=== PATIENT | female | born 1975 | race Caucasian/White ===

== ENCOUNTER 2023-03-07 19:24 | Emergency (ER) | payer MEDICARE, SELFPAY ==
[2023-03-07 19:33] VITALS: BP 99/54; PULSE 60; RESP 16; TEMP 36.8; O2SAT 94; BMI 31.2
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
--- NOTE | 2023-03-07 20:01 | PC.NURSE ---
left side rib cage hurts, no redness or bruising observed. pt gowned
[2023-03-07] MEDS: HYDROCODONE/ACETAMINOPHEN 5-325 MG TABLET 1 TAB PO (20:23)
[2023-03-07] MEDS: ORPHENADRINE 60 MG/ 2 ML VIAL IM (20:23)
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
[2023-03-07 21:24] LABS: Basophils Absolute Auto 0.1 10^3/uL (0.0-0.1); Basophils Percent Auto 0.3 % (0.2-2.0); Eosinophils Absolute Auto 0.1 10^3/uL (0.0-0.7); Eosinophils Percent Auto 0.3 % (0.9-7.0); Hematocrit 41.3 % (36.0-48.0); Hemoglobin 14.1 g/dL (12.0-16.0); Immature Granulocytes Abs Auto 0.29 10^3/uL (0.00-0.03); Immature Granulocytes Pct Auto 1.2 % (0.0-0.5); Lymphocytes Absolute Auto 1.7 10^3/uL (1.2-3.8); Lymphocytes Percent Auto 7.2 % (20.5-60.0); Mean Corpuscular HGB Conc 34.1 g/dL (29.9-35.2); Mean Corpuscular Hemoglobin 33.2 pg (26.7-34.0); Mean Corpuscular Volume 97.2 fL (81.0-99.0); Mean Platelet Volume 8.8 fL (9.5-13.5); Monocytes Absolute Auto 1.5 10^3/uL (0.3-0.8); Monocytes Percent Auto 6.3 % (1.7-12.0); Neutrophils Absolute Auto 20.3 10^3/uL (1.4-6.5); Neutrophils Percent Auto 84.7 % (43.0-75.0); Platelet Count 394 10^3/uL (150-450); Red Blood Count 4.25 10^6/uL (4.20-5.40); Red Cell Distribution Width 15.2 % (11.0-15.0)
[2023-03-07 21:33] LABS: Anion Gap 13.5; BUN Creatinine Ratio 12.9; Calcium 8.4 mg/dL (8.5-10.1); Chloride 100 mmol/L (98-107); Estimated GFR (African America >60 (>=60); Estimated GFR (Non-African Ame >60 (>=60); Glucose 71 mg/dL (74-106); Potassium 3.5 mmol/L (3.5-5.1); Sodium 134 mmol/L (136-145)
[2023-03-07 21:43] LABS: Scan Results NEGATIVE
[2023-03-07 21:45] LABS: INR 1.03; Partial Thromboplastin Time 38.3 sec (22.3-36.2); Prothrombin Time 10.9 sec (9.0-11.6)
[2023-03-07] MEDS: LEVOFLOXACIN 750 MG TABLET PO (23:31)
[2023-03-07] MEDS: CLINDAMYCIN HCL 150 MG CAPSULE 300 MG PO (23:31)
== END 2023-03-07 23:46 | disposition home or self-care (01) ==
PROVIDERS: Physician Assistant; Emergency Provider Internal Medicine; PCP Internal Medicine
DX: R07.89 Other chest pain (principal); J18.8 Other pneumonia, unspecified organism; J44.9 Chronic obstructive pulmonary disease, unspecified; Z79.899 Other long term (current) drug therapy; Z79.4 Long term (current) use of insulin
CPT/HCPCS: 36415; 71101; 71260; 80048; 85025; 85610; 85730; 96372; 99285; Q9967

== ENCOUNTER 2023-05-08 19:25 | Observation (INO) | payer MEDICARE, SELFPAY ==
[2023-05-08] VITALS (7 sets, daily range): BP systolic 113–150; BP diastolic 70–86; PULSE 84–106; RESP 18–28; TEMP 37.1; O2SAT 91–95; BMI 30.4
--- NOTE | 2023-05-08 19:33 | ECG_ITS ---
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
--- NOTE | 2023-05-08 19:39 | ED_ITS ---
HPI - SOB/Dyspnea General Chief Complaint: Shortness of Breath/Dyspnea Stated Complaint: Shortness of Breath Time Seen by Provider: 05/08/23 19:34 Source: patient Mode of arrival: walk-in Limitations: no limitations History of Present Illness HPI Narrative: history of COPD. daily smoker. Presents complaining of shortness of breath for 2 days. Dry cough. No chest pain or nausea. no fever or abdominal pain MD elicited complaint: shortness of breath and cough Pertinent past history: COPD Onset (ago): day(s) Related Data Home Medications Medication Instructions Recorded Confirmed albuterol sulfate 90 mcg/actuation 2 puff inhalation Q4H PRN 03/07/23 05/08/23 aerosol inhaler shortness of breath or wheezing atorvastatin 40 mg tablet 40 mg PO DAILY 03/07/23 05/08/23 budesonide 160 mcg-glycopyr 9 1 inh inhalation BID 03/07/23 05/09/23 mcg-formot 4.8 mcg/actuation HFA inhaler (Breztri MediWoundphere) dapagliflozin propanediol 10 mg 10 mg PO DAILY 03/07/23 05/08/23 tablet (Farxiga) dulaglutide 1.5 mg/0.5 mL 1.5 mg subcut QWEEK 03/07/23 05/08/23 subcutaneous pen injector (Lvmae) escitalopram oxalate 20 mg tablet 20 mg PO DAILY 03/07/23 05/08/23 gabapentin 800 mg tablet 800 mg PO TID 03/07/23 05/08/23 ibuprofen 800 mg tablet 800 mg PO TID 03/07/23 05/08/23 insulin aspart U-100 100 unit/mL 10 unit subcut TID 03/07/23 05/08/23 (3 mL) subcutaneous pen (Novolog FlexPen U-100 Insulin aspart) lamotrigine 150 mg tablet 150 mg PO BID 03/07/23 05/08/23 mirtazapine 30 mg tablet 30 mg PO BEDTIME 03/07/23 05/09/23 omeprazole 40 mg capsule,delayed 40 mg PO DAILY 03/07/23 05/08/23 release risperidone 1 mg tablet 1 mg PO BID 03/07/23 05/08/23 sitagliptin phos 100 mg-metformin 1 tab PO BEDTIME 03/07/23 05/09/23 ER 1,000 mg tablet,extend rel 24h mp (Janumet XR) tizanidine 4 mg tablet 4 mg PO TID PRN muscle spasticity 03/07/23 05/08/23 lorazepam 1 mg tablet (Ativan) 1 mg PO Q12H 05/08/23 05/08/23 Previous Rx's Medication Instructions Recorded methocarbamol 750 mg tablet 750 mg PO TID PRN pain #20 tabs 03/07/23 ahefhrqracramij-qncoisrevuuxpea-VI 5 ml PO Q6H PRN sinus symptoms 05/09/23 2 mg-30 mg-10 mg/5 mL oral syrup #118 mL (Bromfed DM) nicotine (polacrilex) 4 mg gum 4 mg buccal Q8H PRN nicotine 05/09/23 (Nicorette) cravings #110 ea nicotine 21 mg/24 hr daily 1 patch transdermal Q24H #28 ea 05/09/23 transdermal patch (Nicoderm CQ) prednisone 20 mg tablet 40 mg PO DAILY 7 days #14 tabs 05/09/23 Allergies Allergy/AdvReac Type Severity Reaction Status Date / Time sumatriptan [From Imitrex] Allergy Severe Verified 05/08/23 19:35 Review of Systems ROS Status of ROS 10 or more systems reviewed and unremarkable except as noted in history and below Respiratory Reports: shortness of breath, cough and wheezing PFSH PFSH Social History Smoking status: Current every day smoker Exam Constitutional Vital Signs, click to edit/add: Last Vital Signs Temp 98.8 F 05/09/23 06:00 Pulse 78 05/09/23 06:00 Resp 22 05/09/23 06:00 BP 130/86 05/09/23 06:00 Pulse Ox 90 L 05/09/23 08:00 O2 Del Method Room Air 05/09/23 08:00 O2 Flow Rate 4 05/09/23 06:00 Common normals: no apparent distress, average body habitus, oriented x3, no limitations, healthy appearing, alert and well nourished Eye Common normals: EOMs intact bilaterally and conjunctivae normal Respiratory Common normals: normal respiratory effort, no retractions and no use of accessory muscles Auscultation: rhonchi and wheezes Cardio Common normals: regular rate, regular rhythm, S1 normal heart sound and S2 normal heart sound GI Common normals: Normal to inspection, nondistended, normoactive bowel sounds present, soft to palpation and non-tender Extremity Common normals: normal to inspection Neuro Common normals: oriented x3, CN's II-XII intact bilaterally, moves all extremities, no focal motor deficits and no sensory deficits noted Psych Appearance: grossly normal Course Course Hospital Course: patient responded well to IV steroids and duonebs. She is willing to try patches and nicotine gum. I will place her on prednisone 40mg daily x 7 days, use inhalers as prescribed. Smoking cessation will help the most. Use home oxygen only as needed. Follow up with pcp 5-7 days. Return with worsening symptoms. Vital Signs Vital signs: Vital Signs Temperature 98.7 F 05/08/23 19:30 Pulse Rate 106 H 05/08/23 19:30 Respiratory Rate 18 05/08/23 19:30 Blood Pressure 130/83 05/08/23 19:30 Pulse Oximetry 92 L 05/08/23 19:30 Oxygen Delivery Method Room Air 05/08/23 19:30 Temperature 98.8 F 05/09/23 06:00 Pulse Rate 78 05/09/23 06:00 Respiratory Rate 22 05/09/23 06:00 Blood Pressure 130/86 05/09/23 06:00 Pulse Oximetry 90 L 05/09/23 08:00 Oxygen Delivery Method Room Air 05/09/23 08:00 Oxygen Delivery Flow Rate 4 05/09/23 06:00 MDM - SOB/Dyspnea MDM Narrative Medical decision making narrative: history of COPD. daily smoker. IDDM. presents short of breath for past couple of days. Treatment in the department included solumedrol, duoneb . She was also given benadryl and magnesium for headache. Nasal swab positive for Rhino/entero virus. Patient after treatment still has coarse wheeze and few rhonchi. Without 02 her pulse ox decreases to 85%. Her cxray is clear. Discussed with the hospitalist and will plan obs admission. Lab Data Labs: Lab Results 05/08/23 Range/Units 19:35 WBC 13.1 H (4.0-11.0) 10^3/uL RBC 4.38 (4.20-5.40) 10^6/uL Hgb 14.5 (12.0-16.0) g/dL Hct 44.4 (36.0-48.0) % MCV 101.4 H (81.0-99.0) fL MCH 33.1 (26.7-34.0) pg MCHC 32.7 (29.9-35.2) g/dL RDW 15.8 H (11.0-15.0) % Plt Count 285 (150-450) 10^3/uL MPV 9.1 L (9.5-13.5) fL Neut % (Auto) 83.7 H (43.0-75.0) % Lymph % (Auto) 8.1 L (20.5-60.0) % [place] % (Auto) 6.7 (1.7-12.0) % Eos % (Auto) 0.5 L (0.9-7.0) % Baso % (Auto) 0.5 (0.2-2.0) % Neut # (Auto) 11.0 H (1.4-6.5) 10^3/uL Lymph # (Auto) 1.1 L (1.2-3.8) 10^3/uL [place] # (Auto) 0.9 H (0.3-0.8) 10^3/uL Eos # (Auto) 0.1 (0.0-0.7) 10^3/uL Baso # (Auto) 0.1 (0.0-0.1) 10^3/uL Abs Immat Gran (auto) 0.06 H (0.00-0.03) 10^3/uL Imm/Tot Granulo (auto) 0.5 (0.0-0.5) % Sodium 136 (136-145) mmol/L Potassium 3.4 L (3.5-5.1) mmol/L Chloride 102 (98-107) mmol/L Carbon Dioxide 22.5 (21.0-32.0) mmol/L Anion Gap 14.9 BUN 7.0 (7.0-18.0) mg/dL Creatinine 0.84 (0.55-1.02) mg/dL Est GFR ( Amer) >60 (>=60) Est GFR (Non-Af Amer) >60 (>=60) BUN/Creatinine Ratio 8.3 Glucose 173 H (74-106) mg/dL Calcium 8.4 L (8.5-10.1) mg/dL Troponin I High Sens 4.6 (4.0-51.3) pg/mL Adenovirus (PCR) Not detected (NOT DETECTE) C. pneumoniae DNA (PCR) Not detected (NOT DETECTE) Coronavirus Type OC43 Not detected (NOT DETECTE) Coronavirus Type HKU1 Not detected (NOT DETECTE) Coronavirus Type 229E Not detected (NOT DETECTE) Coronavirus Type NL63 Not detected (NOT DETECTE) Human Metapneumovir PCR Not detected (NOT DETECTE) M. pneumoniae (PCR) Not detected (NOT DETECTE) Parainfluenza PCR Not detected (NOT DETECTE) Parainfluenza 2 (PCR) Not detected (NOT DETECTE) Parainfluenza 3 (PCR) Not detected (NOT DETECTE) Parainfluenza 4 (PCR) Not detected (NOT DETECTE) RSV (RT-PCR) Not detected (NOT DETECTE) Entero/Rhino (PCR) Detected A (NOT DETECTE) SARS-CoV-2 (PCR) Not detected (NOT DETECTE) Bordetella pertussis (PCR) Not detected (NOT DETECTE) B parapertussis DNA PCR Not detected (NOT DETECTE) Influenza Type A (PCR) Not detected (NOT DETECTE) Influenza Type B (PCR) Not detected (NOT DETECTE) Discharge Plan Discharge Chief Complaint: Shortness of Breath/Dyspnea Clinical Impression: Acute viral syndrome, Acute exacerbation of chronic obstructive pulmonary di sease (COPD) Patient Disposition: Admitted as Observation Discharge Date/Time: 05/09/23 00:10
--- NOTE | 2023-05-08 19:45 | XR_ITS ---
The [address] [address] Patient Name: DIAN RAY MRN: [id number] date: 1975 Sex: F Assigned Patient Location: ER Current Patient Location: ER Accession/Order Number: [id number] Exam Date: 05/08/2023 21:20 Report Date: 05/08/2023 21:07 At the request of: SHILPI MUÑOZ Procedure: XR chest 1V EXAMINATION: XR chest 1V HISTORY: Cough COMPARISON: X-ray 03/07/2023 TECHNIQUE: Portable chest FINDINGS: The lung parenchyma is free of acute consolidation or infiltrate. Scarring within the left upper lobe. No pneumothorax or pleural effusion. The cardiac, mediastinal and hilar contours are normal. The visualized osseous structures exhibit no gross abnormality. XR/XR chest 1V IMPRESSION: No acute cardiopulmonary abnormality. Electronically authenticated by: SHAJI SWANSON Date: 05/08/2023 21:07
[2023-05-08 19:52] LABS: Adenovirus NOT DETECTED (NOT DETECTE); Bordetella parapertussis NOT DETECTED (NOT DETECTE); Coronavirus 229E NOT DETECTED (NOT DETECTE); Coronavirus HKU1 NOT DETECTED (NOT DETECTE); Coronavirus NL63 NOT DETECTED (NOT DETECTE); Coronavirus OC43 NOT DETECTED (NOT DETECTE); Human Metapneumovirus NOT DETECTED (NOT DETECTE); Influenza A NOT DETECTED (NOT DETECTE); Influenza B NOT DETECTED (NOT DETECTE); Mycoplasma pneumoniae NOT DETECTED (NOT DETECTE); Parainfluenza Virus 1 NOT DETECTED (NOT DETECTE); Parainfluenza Virus 2 NOT DETECTED (NOT DETECTE); Parainfluenza Virus 3 NOT DETECTED (NOT DETECTE); Parainfluenza Virus 4 NOT DETECTED (NOT DETECTE); Respiratory Syncytial Virus NOT DETECTED (NOT DETECTE); SARS-CoV-2 NOT DETECTED (NOT DETECTE)
[2023-05-08 19:54] LABS: Basophils Absolute Auto 0.1 10^3/uL (0.0-0.1); Basophils Percent Auto 0.5 % (0.2-2.0); Eosinophils Absolute Auto 0.1 10^3/uL (0.0-0.7); Eosinophils Percent Auto 0.5 % (0.9-7.0); Hematocrit 44.4 % (36.0-48.0); Hemoglobin 14.5 g/dL (12.0-16.0); Immature Granulocytes Abs Auto 0.06 10^3/uL (0.00-0.03); Immature Granulocytes Pct Auto 0.5 % (0.0-0.5); Lymphocytes Absolute Auto 1.1 10^3/uL (1.2-3.8); Lymphocytes Percent Auto 8.1 % (20.5-60.0); Mean Corpuscular HGB Conc 32.7 g/dL (29.9-35.2); Mean Corpuscular Hemoglobin 33.1 pg (26.7-34.0); Mean Corpuscular Volume 101.4 fL (81.0-99.0); Mean Platelet Volume 9.1 fL (9.5-13.5); Monocytes Absolute Auto 0.9 10^3/uL (0.3-0.8); Monocytes Percent Auto 6.7 % (1.7-12.0); Neutrophils Percent Auto 83.7 % (43.0-75.0); Platelet Count 285 10^3/uL (150-450); Red Blood Count 4.38 10^6/uL (4.20-5.40); Red Cell Distribution Width 15.8 % (11.0-15.0); White Blood Count 13.1 10^3/uL (4.0-11.0)
[2023-05-08] MEDS: METHYLPREDNISOLONE SOD SUCC PF 125 MG/2 ML VIAL IVP (20:01)
[2023-05-08] MEDS: IPRATROPIUM/ALBUTEROL SULFATE 3 ML AMPUL.NEB IH ×3 (20:05→23:16)
[2023-05-08] MEDS: KETOROLAC TROMETHAMINE 30 MG/ML VIAL IVP (20:16)
[2023-05-08 20:27] LABS: Anion Gap 14.9; BUN Creatinine Ratio 8.3; Calcium 8.4 mg/dL (8.5-10.1); Carbon Dioxide 22.5 mmol/L (21.0-32.0); Chloride 102 mmol/L (98-107); Estimated GFR (African America >60 (>=60); Estimated GFR (Non-African Ame >60 (>=60); Glucose 173 mg/dL (74-106); Potassium 3.4 mmol/L (3.5-5.1); Sodium 136 mmol/L (136-145); Troponin I High Sensitivity 4.6 pg/mL (4.0-51.3)
[2023-05-08 21:18] LABS: Human Rhinovirus/Enterovirus DETECTED (NOT DETECTE)
[2023-05-08] MEDS: MAGNESIUM SULFATE IN WATER 2 GM/50 ML PREMIX IV (21:36)
[2023-05-08] MEDS: DIPHENHYDRAMINE HCL 50 MG/ML (1ML) VIAL IV (21:36)
--- NOTE | 2023-05-08 21:45 | PC.NURSE ---
Coarse breath sounds throughout with some exp. wheezes. Cough remains coarse in nature
--- NOTE | 2023-05-08 23:09 | PC.NURSE ---
Patient continues to sleep arouse with stimuli. Saturation dropped when taken off O2. Dr was in. Patient at first refused admission, but after talking with her she agreed to stay. Placed back on O2 and is up to 5 L/min. Saturation still 88-90. Dr aware and another treatment was ordered.
[2023-05-09 00:10] VITALS: BP 121/69; PULSE 75; RESP 32
[2023-05-09 00:21] VITALS: BP 126/76; PULSE 76; RESP 20; TEMP 36.7; O2SAT 93; BMI 31.2
[2023-05-09 00:30] VITALS: O2SAT 94
--- NOTE | 2023-05-09 01:35 | P.PN_ITS ---
Progress Note: Subjective Subjective Interval history: CC: cough and shortness of breath HPI: 48-year-old female with history of COPD, active tobacco smoker, has oxygen as needed, chronic headaches, chronic pain, diabetes who presents with few days of congestion, productive cough of thick white sputum, chills, fatigue, malaise, wheezing. no reports of fevers, pleurisy, abdominal pain, change in bowel urinary habits, rashes, focal weakness. No complaints of edema orthopnea or chest pain. Upon arrival to the ER was noted to have increased respiratory effort, hypoxia on room air placed on 5 L nasal cannula, CXR without any infiltrates, given Solu-Medrol and multiple DuoNeb treatment with improvement in respiratory status, complaining of a headache received Benadryl and currently sleeping. Past medical/surgical history: social history: smokes tobacco daily Allergies: Imitrex Home medications: reviewed in chart ROS: negative except for HPI PE: General: Lying in bed, sleeping, arousable, goes back to sleep in no acute distress, alert to self and place HEENT: Normocephalic, atraumatic, trachea midline CVS: regular rate and rhythm, no edema lungs: Increase respiratory effort, Wheezes and central rhonchi GI: Soft, nontender, no visible masses neuro: No focal deficits Exam Constitutional Vital Signs, click to edit/add: Last Vital Signs Temp 98.7 F 05/08/23 19:30 Pulse 75 05/09/23 00:10 Resp 32 H 05/09/23 00:10 BP 121/69 05/09/23 00:10 Pulse Ox 95 05/08/23 23:59 O2 Del Method Nasal Cannula 05/09/23 00:10 O2 Flow Rate 5 05/09/23 00:10 Progress Note: Objective Labs Labs: Short CBC 05/08/23 Range/Units 19:35 WBC 13.1 H (4.0-11.0) 10^3/uL Hgb 14.5 (12.0-16.0) g/dL Hct 44.4 (36.0-48.0) % Plt Count 285 (150-450) 10^3/uL BMP 05/08/23 19:35 Sodium 136 Potassium 3.4 L Chloride 102 Carbon Dioxide 22.5 BUN 7.0 Creatinine 0.84 Glucose 173 H Calcium 8.4 L Progress Note: A&P Assessment and Plan (1) Acute exacerbation of chronic obstructive pulmonary disease (COPD): (2) Hypoxia: (3) Enterovirus infection: Plan Acute respiratory failure with hypoxia COPD with acute exacerbation Enterovirus bronchitis Nicotine dependence Migraine headaches Anxiety with depression chronic pain IDDM type II - COPD pathway with scheduled steroids, duo nebs, supplemental oxygen, BiPAP as needed - smoking cessation education, declines nicotine patch - standard and contact precautions for enterovirus - low carb diet sliding scale insulin coverage with diabetes and steroids - home medications reviewed and reconciled DVT prophylaxis-Lovenox goals of care-full code communications: Discussed with emergency room physician, bedside nurse, updated of plan of care, all questions answered to their satisfaction. Disposition -home when medically stable has a provider this telehealth evaluation, requested by the patient's evaluating physician, I attest that I introduced myself to the patient, provided my credentials and determined that telemedicine via a real-time 2 weight interactive audio and video platform his and appropriate and effective means of providing this service. I reviewed the patient's chart and had a discussion with the member of the patient's treatment team. The patient and I mutually agreed with continuation of this evaluation via telemedicine. The patient consented for the telemedicine evaluation. A virtual encounter was taking place from [place]. The nurse was present during the entire time of the encounter. The patient was evaluated on 129 Telemedicine Attestation Telemedicine Attestation I conducted this encounter from [] via secure live, [id number] video conference with the patient, located at [facility] with []. Prior to the interview, the risks and benefits of telemedicine were discussed with the patient and verbal consent was obtained.
[2023-05-09 02:24] LABS: Partial Thromboplastin Time 36.9 sec (22.3-36.2)
[2023-05-09 04:18] VITALS: PULSE 71; RESP 20; O2SAT 96
[2023-05-09] MEDS: IPRATROPIUM/ALBUTEROL SULFATE 3 ML AMPUL.NEB IH (04:18)
--- NOTE | 2023-05-09 05:04 | RESP.RT ---
Titrated to 4 lpm
[2023-05-09 06:00] VITALS: BP 130/86; PULSE 78; RESP 22; TEMP 37.1; O2SAT 93
[2023-05-09 07:52] LABS: Glucometer 266 mg/dL (74-106)
[2023-05-09 08:00] VITALS: O2SAT 90
--- NOTE | 2023-05-09 08:29 | P.HP_ITS ---
H&P: HPI History of Present Illness Chief complaint: Shortness of Breath Narrative: patient is a 48-year-old female with past medical history of chronic obstructive pulmonary disease, tobacco abuse, chronic headaches, chronic pain, insulin- dependent type 2 diabetes who developed a few day history of nasal congestion and sinus pressure productive cough, chills, fatigue, malaise, wheezing. She denied having any fevers abdominal pain or any sick contacts. She does have oxygen at home which she uses just if she feels like she needs it. She continues to smoke despite knowing the severity of her chronic obstructive pulmonary disease. She was admitted with acute chronic obstructive pulmonary disease exacerbation and has responded well overnight with Solu-Medrol and DuoNeb treatments. This morning on exam she is in no acute distress and no complaints. Review of Systems ROS Narrative ROS: a complete review of systems were reviewed with patient and are positive as below or listed in History of Chief Complaint. General: no fever, chills, night sweats Head: no headache, trauma, visual changes, nausea or vomiting Skin: no reported rashes, itching or sores Eyes: no blurriness of vision Ears: no reported hearing loss, vertigo, earache, or tinnitus Throat: no sore throat, hoarseness, swelling of neck, or tongue pain Heart: no chest pain Lungs: shortness of breath and cough GI: no diarrhea or vomiting/nausea Urinary: no urinary urgency, frequency or pain Neuro: no numbness or tingling HEM: no bleeding issues or bruising ENDO: no thyroid problems Psych: anxiety and depression PFSH PFSH Social History Smoking status: Current every day smoker Meds Home Medications and Allergies Home Medications Medication Instructions Recorded Confirmed Type albuterol sulfate 90 mcg/actuation 2 puff inhalation Q4H PRN 03/07/23 05/08/23 History aerosol inhaler shortness of breath or wheezing atorvastatin 40 mg tablet 40 mg PO DAILY 03/07/23 05/08/23 History budesonide 160 mcg-glycopyr 9 1 inh inhalation BID 03/07/23 05/09/23 History mcg-formot 4.8 mcg/actuation HFA inhaler (Breztri Aerosphere) dapagliflozin propanediol 10 mg 10 mg PO DAILY 03/07/23 05/08/23 History tablet (Farxiga) dulaglutide 1.5 mg/0.5 mL 1.5 mg subcut QWEEK 03/07/23 05/08/23 History subcutaneous pen injector (Trulicity) escitalopram oxalate 20 mg tablet 20 mg PO DAILY 03/07/23 05/08/23 History gabapentin 800 mg tablet 800 mg PO TID 03/07/23 05/08/23 History ibuprofen 800 mg tablet 800 mg PO TID 03/07/23 05/08/23 History insulin aspart U-100 100 unit/mL 10 unit subcut TID 03/07/23 05/08/23 History (3 mL) subcutaneous pen (Novolog FlexPen U-100 Insulin aspart) lamotrigine 150 mg tablet 150 mg PO BID 03/07/23 05/08/23 History methocarbamol 750 mg tablet 750 mg PO TID PRN pain #20 tabs 03/07/23 05/08/23 Rx mirtazapine 30 mg tablet 30 mg PO BEDTIME 03/07/23 05/09/23 History omeprazole 40 mg capsule,delayed 40 mg PO DAILY 03/07/23 05/08/23 History release risperidone 1 mg tablet 1 mg PO BID 03/07/23 05/08/23 History sitagliptin phos 100 mg-metformin 1 tab PO BEDTIME 03/07/23 05/09/23 History ER 1,000 mg tablet,extend rel 24h mp (Janumet XR) tizanidine 4 mg tablet 4 mg PO TID PRN muscle spasticity 03/07/23 05/08/23 History lorazepam 1 mg tablet (Ativan) 1 mg PO Q12H 05/08/23 05/08/23 History amiplkhahhrxubw-syllpllezkjehne-TB 5 ml PO Q6H PRN sinus symptoms 05/09/23 Rx 2 mg-30 mg-10 mg/5 mL oral syrup #118 mL (Bromfed DM) nicotine (polacrilex) 4 mg gum 4 mg buccal Q8H PRN nicotine 05/09/23 Rx (Nicorette) cravings #110 ea nicotine 21 mg/24 hr daily 1 patch transdermal Q24H #28 ea 05/09/23 Rx transdermal patch (Nicoderm CQ) prednisone 20 mg tablet 40 mg PO DAILY 7 days #14 tabs 05/09/23 Rx Allergies Allergy/AdvReac Type Severity Reaction Status Date / Time sumatriptan [From Imitrex] Allergy Severe Verified 05/08/23 19:35 Exam Narrative Exam Narrative: General: Patient is alert, and oriented to person, place and time with normal affect, proper hygiene Skin: no visible rashes, or ulcers Head: atraumatic, acephalic Eyes: PERRLA, no nystagmus present, conjunctiva clear, no scleral icterus Ears: normal gross auditory acuity Heart: Normal rate and rhythm, no murmurs/rubs/gallops Lungs: no audible wheezes, crackles and normal breath sounds all lung gonzalez Abdomen: Normal audible bowel sounds, no distension, No palpable masses, no organomegaly, no rebound/guarding/ or rigidity Musculoskeletal: muscle atrophy noted, ROM is limited due to being in hospital bed, no swelling bilateral lower extremities Vascular: Normal carotid, radial, femoral, posterior tibial, and dorsalis pedis pulses Lymph: no supraclavicular, axillary, or anterior/posterior cervical adenopathy Neuro: CN II-X grossly intact, normal sensation upper and lower extremities Constitutional Vital Signs, click to edit/add: Last Vital Signs Temp 98.8 F 05/09/23 06:00 Pulse 78 05/09/23 06:00 Resp 22 05/09/23 06:00 BP 130/86 05/09/23 06:00 Pulse Ox 90 L 05/09/23 08:00 O2 Del Method Room Air 05/09/23 08:00 O2 Flow Rate 4 05/09/23 06:00 Results Labs Labs: Short CBC 05/08/23 Range/Units 19:35 WBC 13.1 H (4.0-11.0) 10^3/uL Hgb 14.5 (12.0-16.0) g/dL Hct 44.4 (36.0-48.0) % Plt Count 285 (150-450) 10^3/uL BMP 05/08/23 19:35 Sodium 136 Potassium 3.4 L Chloride 102 Carbon Dioxide 22.5 BUN 7.0 Creatinine 0.84 Glucose 173 H Calcium 8.4 L Assessment and Plan Assessment and Plan (1) Acute exacerbation of chronic obstructive pulmonary disease (COPD): Assessment and Plan: scheduled steroids, duo nebs, supplemental oxygen, normal chest X-ray, viral culture positive for rhinovirus/enterovirus (2) Hypoxia: Assessment and Plan: currently on room air (3) Enterovirus infection: Assessment and Plan: causing #1 Plan full code discharge home today discussed smoking cessation and will try patches and gum
[2023-05-09] MEDS: CANAGLIFLOZIN 100 MG TABLET 300 MG PO (08:52)
[2023-05-09] MEDS: LAMOTRIGINE 100 MG TABLET 150 MG PO (08:52)
[2023-05-09] MEDS: risperiDONE 1 MG TABLET PO (08:53)
[2023-05-09] MEDS: GUAIFENESIN 200 MG/10 ML LIQUID PO (08:53)
[2023-05-09] MEDS: PREDNISONE 20 MG TABLET 40 MG PO (08:53)
[2023-05-09] MEDS: LORAZEPAM 1 MG TABLET PO (08:53)
[2023-05-09] MEDS: OMEPRAZOLE 20 MG CAPSULE.DR PO (08:53)
[2023-05-09] MEDS: INSULIN ASPART 300 UNIT/3 ML PEN SUBQ (08:53)
--- NOTE | 2023-05-09 14:08 | PM.DS1 ---
DS: Providers Provider Date of admission: 05/09/23 00:14 Primary care physician: Shaikh Anthony MD Attending physician on admission: Mackenzie Pizarro Discharging clinician: Shanna Shipman DS: Diagnosis Discharge Diagnosis (1) Acute exacerbation of chronic obstructive pulmonary disease (COPD): (2) Enterovirus infection: (3) Hypoxia: (4) Tobacco abuse counseling: DS: Summary Hospital Course Hospital Course: patient responded well to IV steroids and duonebs. She is willing to try patches and nicotine gum. I will place her on prednisone 40mg daily x 7 days, use inhalers as prescribed. Smoking cessation will help the most. Use home oxygen only as needed. Follow up with pcp 5-7 days. Return with worsening symptoms. Status at Discharge Functional status at discharge: independent ambulation Overall status at discharge: patient is back to baseline Time Spent with Patient Time attestation: Total time spent providing and/or coordinating discharge services: Exam Narrative Exam Narrative: no change in exam from H&P DATED 05/09/23 Constitutional Vital Signs, click to edit/add: Last Vital Signs Temp 98.8 F 05/09/23 06:00 Pulse 78 05/09/23 06:00 Resp 22 05/09/23 06:00 BP 130/86 05/09/23 06:00 Pulse Ox 90 L 05/09/23 08:00 O2 Del Method Room Air 05/09/23 08:00 O2 Flow Rate 4 05/09/23 06:00 DS: Data Data Completed and Pending Labs on day of discharge: Labs from last 24 hours 05/09/23 05/09/23 05/08/23 07:51 02:08 19:35 WBC 13.1 H RBC 4.38 Hgb 14.5 Hct 44.4 MCV 101.4 H MCH 33.1 MCHC 32.7 RDW 15.8 H Plt Count 285 MPV 9.1 L Neut % (Auto) 83.7 H Lymph % (Auto) 8.1 L [place] % (Auto) 6.7 Eos % (Auto) 0.5 L Baso % (Auto) 0.5 Neut # (Auto) 11.0 H Lymph # (Auto) 1.1 L [place] # (Auto) 0.9 H Eos # (Auto) 0.1 Baso # (Auto) 0.1 Abs Immat Gran (auto) 0.06 H Imm/Tot Granulo (auto) 0.5 APTT 36.9 H Sodium 136 Potassium 3.4 L Chloride 102 Carbon Dioxide 22.5 Anion Gap 14.9 BUN 7.0 Creatinine 0.84 Est GFR ( Amer) >60 Est GFR (Non-Af Amer) >60 BUN/Creatinine Ratio 8.3 Glucose 173 H Calcium 8.4 L Troponin I High Sens 4.6 Adenovirus (PCR) Not detected C. pneumoniae DNA (PCR) Not detected Coronavirus Type OC43 Not detected Coronavirus Type HKU1 Not detected Coronavirus Type 229E Not detected Coronavirus Type NL63 Not detected Human Metapneumovir PCR Not detected M. pneumoniae (PCR) Not detected Parainfluenza PCR Not detected Parainfluenza 2 (PCR) Not detected Parainfluenza 3 (PCR) Not detected Parainfluenza 4 (PCR) Not detected RSV (RT-PCR) Not detected Entero/Rhino (PCR) Detected A SARS-CoV-2 (PCR) Not detected Bordetella pertussis (PCR) Not detected B parapertussis DNA PCR Not detected Influenza Type A (PCR) Not detected Influenza Type B (PCR) Not detected POC Glucose 266 H Discharge Plan Discharge Disposition: Home, Self-Care Discharge Medications: New prednisone 20 mg Tablet 40 mg PO DAILY 7 Days Qty: 14 0RF nicotine [Nicoderm CQ] 21 mg/24 hr patch 24 hour 1 patch transdermal Q24H Qty: 28 0RF nicotine (polacrilex) [Nicorette] 4 mg gum 4 mg buccal Q8H PRN (Reason: nicotine cravings) Qty: 110 0RF pbmdkswtqbqzpfx-zpxxnzfda-CS [Bromfed DM] 2-30-10 mg/5 mL syrup 5 ml PO Q6H PRN (Reason: sinus symptoms) Qty: 118 0RF Continued albuterol sulfate 90 mcg/actuation HFA aerosol inhaler 2 puff INHALATION Q4H PRN (Reason: shortness of breath or wheezing) atorvastatin 40 mg tablet 40 mg PO DAILY Breztri Aerosphere 160-9-4.8 mcg/actuation HFA aerosol inhaler 1 inh INHALATION BID Farxiga 10 mg tablet 10 mg PO DAILY Trulicity 1.5 mg/0.5 mL pen injector 1.5 mg SUBCUT QWEEK escitalopram oxalate 20 mg tablet 20 mg PO DAILY gabapentin 800 mg tablet 800 mg PO TID ibuprofen 800 mg tablet 800 mg PO TID insulin aspart U-100 [Novolog FlexPen U-100 Insulin] 100 unit/mL (3 mL) insulin pen 10 unit SUBCUT TID Patient Comments: with sliding scale, max 50 units daily lamotrigine 150 mg tablet 150 mg PO BID mirtazapine 30 mg tablet 30 mg PO BEDTIME omeprazole 40 mg capsule,delayed release(DR/EC) 40 mg PO DAILY risperidone 1 mg tablet 1 mg PO BID Janumet XR 100-1,000 mg tablet, ER multiphase 24 hr 1 tab PO BEDTIME tizanidine 4 mg tablet 4 mg PO TID PRN (Reason: muscle spasticity) methocarbamol 750 mg tablet 750 mg PO TID PRN (Reason: pain) Qty: 20 0RF lorazepam [Ativan] 1 mg tablet 1 mg PO Q12H Activity: increase activity as tolerated Diet: advance to your usual diet Patient Instructions: COPD (Chronic Obstructive Pulmonary Disease) (DC) Activity Restrictions/Additional Instructions: discussed options for smoking cessation and she will try the patch and gum, prescriptions sent to the pharmacy Forms: Portal Instructions Follow Up Appointments: Call to make a follow up appointment with Dr. Cruz in 5-7 days. [phone] Discharge Date/Time: 05/09/23 11:23
--- NOTE | 2023-05-10 16:05 | CM.DCFOLLOWU ---
Person spoke with: Christiane How are you feeling? Much better How is your pain? No pain Did you understand your discharge instructions? Yes Do you have any questions about your discharge instructions? No Were you given any prescriptions at discharge? Yes Were you able to get your prescriptions filled? Yes Do you understand how to take your medications as ordered? Yes Do you have any questions about your follow up appointment and do you plan to keep your follow up appointment? I have to call to schedule Is there anything else that you would like to discuss? No Questions/Comments/Concerns/Other:
== END 2023-05-09 11:23 | disposition home or self-care (01) ==
LOC: ER 05-09 00:17 → MS 05-09 00:17
PROVIDERS: Admitting Provider Internal Medicine; Emergency Provider Internal Medicine; PCP Internal Medicine; Visit Provider Family Medicine
DX: J44.1 Chronic obstructive pulmonary disease with (acute) exacerbation (principal); R09.02 Hypoxemia; B34.1 Enterovirus infection, unspecified; E11.9 Type 2 diabetes mellitus without complications; F17.210 Nicotine dependence, cigarettes, uncomplicated; Z20.822 Contact with and (suspected) exposure to COVID-19; Z79.4 Long term (current) use of insulin; Z79.899 Other long term (current) drug therapy
CPT/HCPCS: 0202U; 36415; 71045; 80048; 84484; 85025; 85730; 93005; 94640; 94761; 96365; 96375; 99285; G0378; J2930; Q3014

== ENCOUNTER 2023-05-19 14:57 | Outpatient (OUT) | payer MEDICARE, SELFPAY ==
--- NOTE | 2023-05-19 | XR_ITS ---
The [address] [address] Patient Name: DIAN RAY MRN: [id number] date: 1975 Sex: F Assigned Patient Location: RAD Current Patient Location: RAD Accession/Order Number: [id number] Exam Date: 05/19/2023 15:08 Report Date: 05/19/2023 16:32 At the request of: SHAIKH AMINA Procedure: XR chest 2V EXAM: XR chest 2V HISTORY: J44.1 ; COPD and chest tightness for one week. COMPARISON: Portable chest radiograph dated 05/08/[address] chest dated 03/07/2023. TECHNIQUE: PA and lateral views of the chest performed. FINDINGS: The trachea is midline. The cardiac silhouette is upper limits normal size and stable. The mediastinal silhouette and hilar shadows are stable. Stable mild linear densities within the left upper chest suggesting parenchymal scar. A complex mass was seen within this location on the previous CT chest examination from 03/07/2023. There is no new consolidation or infiltrate. There is no pleural effusion or pulmonary vascular congestion. There is no pneumothorax or acute osseous abnormality. XR/XR chest 2V IMPRESSION: Stable mild linear densities within the left upper chest suggesting parenchymal scar. A complex mass was seen within this location on the previous CT chest examination from 03/07/2023. Electronically authenticated by: FREDRICK SPRINGER Date: 05/19/2023 16:32
== END 2023-05-19 14:58 | disposition home or self-care (01) ==
LOC: RAD 14:57
PROVIDERS: PCP Internal Medicine; Visit Provider Internal Medicine
DX: J44.1 Chronic obstructive pulmonary disease with (acute) exacerbation (principal)
CPT/HCPCS: 71046

== ENCOUNTER 2023-06-17 13:49 | Emergency (ER) | payer MEDICARE, SELFPAY ==
[2023-06-17 13:52] VITALS: BP 109/67; PULSE 84; RESP 20; TEMP 36.4; O2SAT 96; BMI 31.9
--- NOTE | 2023-06-17 14:01 | XR_ITS ---
The [address] [address] Patient Name: DIAN RAY MRN: [id number] date: 1975 Sex: F Assigned Patient Location: ER Current Patient Location: ED.MAIN Accession/Order Number: [id number] Exam Date: 06/17/2023 14:15 Report Date: 06/17/2023 14:44 At the request of: BAMBI STEVENS Procedure: XR knee LT 4V PROCEDURE: XR knee LT 4V COMPARISON: None. HISTORY: fall FINDINGS: BONES:No fracture, acute abnormality, or significant arthropathy. SOFT TISSUES:Negative. No visible soft tissue swelling. EFFUSION:Trace suprapatellar joint effusion OTHER: Negative. XR/XR knee LT 4V IMPRESSION: Trace suprapatellar joint effusion Electronically authenticated by: SHAJI LIMON Date: 06/17/2023 14:44
--- NOTE | 2023-06-17 14:01 | ED.LOWEXI1 ---
HPI - Extremity Injury (Lower) General Chief Complaint: Extremity Injury, Lower Stated Complaint: LOWER EXTREMITY INJURY LEFT Time Seen by Provider: 06/17/23 13:50 Source: patient Mode of arrival: walk-in Limitations: no limitations History of Present Illness HPI Narrative: patient is a 48-year-old female presents to the emergency department for the evaluation of an injury to the left knee, she states she tripped and fell 2 days ago and injured the left knee, anterior medial aspect. She had no other associated injuries. She is able to ambulate but reports it is very slow and difficult. No medications taken prior to arrival. she denies a possibility of . She denies left ankle or foot pain. Related Data Home Medications Medication Instructions Recorded Confirmed albuterol sulfate 90 mcg/actuation 2 puff inhalation Q4H PRN 03/07/23 05/08/23 aerosol inhaler shortness of breath or wheezing atorvastatin 40 mg tablet 40 mg PO DAILY 03/07/23 05/08/23 budesonide 160 mcg-glycopyr 9 1 inh inhalation BID 03/07/23 05/09/23 mcg-formot 4.8 mcg/actuation HFA inhaler ([employer]) dapagliflozin propanediol 10 mg 10 mg PO DAILY 03/07/23 05/08/23 tablet (Farxiga) dulaglutide 1.5 mg/0.5 mL 1.5 mg subcut QWEEK 03/07/23 05/08/23 subcutaneous pen injector (Trulicity) escitalopram oxalate 20 mg tablet 20 mg PO DAILY 03/07/23 05/08/23 gabapentin 800 mg tablet 800 mg PO TID 03/07/23 05/08/23 ibuprofen 800 mg tablet 800 mg PO TID 03/07/23 05/08/23 insulin aspart U-100 100 unit/mL 10 unit subcut TID 03/07/23 05/08/23 (3 mL) subcutaneous pen (Novolog FlexPen U-100 Insulin aspart) lamotrigine 150 mg tablet 150 mg PO BID 03/07/23 05/08/23 mirtazapine 30 mg tablet 30 mg PO BEDTIME 03/07/23 05/09/23 omeprazole 40 mg capsule,delayed 40 mg PO DAILY 03/07/23 05/08/23 release risperidone 1 mg tablet 1 mg PO BID 03/07/23 05/08/23 sitagliptin phos 100 mg-metformin 1 tab PO BEDTIME 03/07/23 05/09/23 ER 1,000 mg tablet,extend rel 24h mp (Janumet XR) tizanidine 4 mg tablet 4 mg PO TID PRN muscle spasticity 03/07/23 05/08/23 lorazepam 1 mg tablet (Ativan) 1 mg PO Q12H 05/08/23 05/08/23 Previous Rx's Medication Instructions Recorded methocarbamol 750 mg tablet 750 mg PO TID PRN pain #20 tabs 03/07/23 lchpwmzgqcakdiy-lhngovchiuznqru-JH 5 ml PO Q6H PRN sinus symptoms 05/09/23 2 mg-30 mg-10 mg/5 mL oral syrup #118 mL (Bromfed DM) nicotine (polacrilex) 4 mg gum 4 mg buccal Q8H PRN nicotine 05/09/23 (Nicorette) cravings #110 ea nicotine 21 mg/24 hr daily 1 patch transdermal Q24H #28 ea 05/09/23 transdermal patch (Nicoderm CQ) prednisone 20 mg tablet 40 mg PO DAILY 7 days #14 tabs 05/09/23 tramadol 50 mg tablet 50 mg PO Q4H PRN pain #15 tabs 06/17/23 Allergies Allergy/AdvReac Type Severity Reaction Status Date / Time sumatriptan [From Imitrex] Allergy Severe Verified 05/08/23 19:35 Review of Systems ROS Constitutional Denies: fever or chills Ears, nose, mouth, and throat Denies: throat pain or neck pain Respiratory Denies: shortness of breath Gastrointestinal Denies: nausea or vomiting Musculoskeletal Reports: extremity pain, joint pain and limited range of motion; Denies: back pain or neck pain Integumentary/Breast Denies: rash Neurological Denies: headache Hematologic/Lymphatic Denies: easy bruising PFSH PFSH Social History Smoking status: Current every day smoker Exam Narrative Exam Narrative: Gen.: Awake, alert, in no distress Head: Normocephalic, atraumatic ENT: Moist mucous membranes Respiratory: No respiratory distress Extremities: pain with flexion and extension at the left knee, no laxity or point tenderness of the left patella. Mild edema and ecchymosis noted of the medial aspect of the left knee, tender to palpation. No bony tenderness of the left anterior tibia or left ankle. Psych: Normal mood and affect Neuro: No focal neuro deficit Skin: Warm, dry, intact Constitutional Vital Signs, click to edit/add: Last Vital Signs Temp 97.6 F 06/17/23 13:52 Pulse 84 06/17/23 13:52 Resp 20 06/17/23 13:52 BP 109/67 06/17/23 13:52 Pulse Ox 96 06/17/23 13:52 O2 Del Method Room Air 06/17/23 13:52 Course Vital Signs Vital signs: Vital Signs Temperature 97.6 F 06/17/23 13:52 Pulse Rate 84 06/17/23 13:52 Respiratory Rate 20 06/17/23 13:52 Blood Pressure 109/67 06/17/23 13:52 Pulse Oximetry 96 06/17/23 13:52 Oxygen Delivery Method Room Air 06/17/23 13:52 Temperature 97.6 F 06/17/23 13:52 Pulse Rate 84 06/17/23 13:52 Respiratory Rate 20 06/17/23 13:52 Blood Pressure 109/67 06/17/23 13:52 Pulse Oximetry 96 06/17/23 13:52 Oxygen Delivery Method Room Air 06/17/23 13:52 MDM - Extremity Injury (Lower) MDM Narrative Medical decision making narrative: x-rays with no evidence of fracture dislocation. Patient placed in an Alfonzo wrap and short knee immobilizer, offered crutches for comfort. Short course of analgesics given for home. She remains neurovascularly intact at discharge, rest, ice, elevate. Follow-up with PCP and return to the Emergency Room if symptoms change or worsen. Medical Records Attestation: I reviewed the patient's medical records. Imaging Data XR knee: Attestation: I have reviewed the pertinent imaging results. Radiologist's impression: Procedure: XR knee LT 4V PROCEDURE: XR knee LT 4V COMPARISON: None. HISTORY: fall FINDINGS: BONES:No fracture, acute abnormality, or significant arthropathy. SOFT TISSUES:Negative. No visible soft tissue swelling. EFFUSION:Trace suprapatellar joint effusion OTHER: Negative. IMPRESSION: Trace suprapatellar joint effusion Electronically authenticated by: SHAJI LIMON Date: 06/17/2023 14:44 Discharge Plan Discharge Chief Complaint: Extremity Injury, Lower Clinical Impression: Contusion of left knee Patient Disposition: Home, Self-Care Time of Disposition Decision: 14:49 Condition: Good Prescriptions / Home Meds: New tramadol 50 mg tablet 50 mg PO Q4H PRN (Reason: pain) Qty: 15 0RF Rx Instructions: DX: M25.562 No Action albuterol sulfate 90 mcg/actuation HFA aerosol inhaler 2 puff INHALATION Q4H PRN (Reason: shortness of breath or wheezing) atorvastatin 40 mg tablet 40 mg PO DAILY Breztri Aerosphere 160-9-4.8 mcg/actuation HFA aerosol inhaler 1 inh INHALATION BID Farxiga 10 mg tablet 10 mg PO DAILY Trulicity 1.5 mg/0.5 mL pen injector 1.5 mg SUBCUT QWEEK escitalopram oxalate 20 mg tablet 20 mg PO DAILY gabapentin 800 mg tablet 800 mg PO TID ibuprofen 800 mg tablet 800 mg PO TID insulin aspart U-100 [Novolog FlexPen U-100 Insulin] 100 unit/mL (3 mL) insulin pen 10 unit SUBCUT TID Patient Comments: with sliding scale, max 50 units daily lamotrigine 150 mg tablet 150 mg PO BID mirtazapine 30 mg tablet 30 mg PO BEDTIME omeprazole 40 mg capsule,delayed release(DR/EC) 40 mg PO DAILY risperidone 1 mg tablet 1 mg PO BID Janumet XR 100-1,000 mg tablet, ER multiphase 24 hr 1 tab PO BEDTIME tizanidine 4 mg tablet 4 mg PO TID PRN (Reason: muscle spasticity) methocarbamol 750 mg tablet 750 mg PO TID PRN (Reason: pain) Qty: 20 0RF lorazepam [Ativan] 1 mg tablet 1 mg PO Q12H prednisone 20 mg Tablet 40 mg PO DAILY 7 Days Qty: 14 0RF nicotine [Nicoderm CQ] 21 mg/24 hr patch 24 hour 1 patch transdermal Q24H Qty: 28 0RF nicotine (polacrilex) [Nicorette] 4 mg gum 4 mg buccal Q8H PRN (Reason: nicotine cravings) Qty: 110 0RF jepvegvtwgcxdyx-qnbkmveuo-WS [Bromfed DM] 2-30-10 mg/5 mL syrup 5 ml PO Q6H PRN (Reason: sinus symptoms) Qty: 118 0RF Instructions: Contusion in Adults (ED) Stand Alone Forms: Portal Instructions Referrals: Valentino Angelo MD [Physician] - 1 week Shaikh Cruz MD [Primary Care Provider] - 1 week
[2023-06-17] MEDS: HYDROCODONE/ACET 5-325 MG TABLET 1 TAB PO (14:14)
== END 2023-06-17 15:09 | disposition home or self-care (01) ==
PROVIDERS: Emergency Provider Emergency Medicine; PCP Internal Medicine
DX: S80.02XA Contusion of left knee, initial encounter (principal); W01.10XA Fall on same level from slipping, tripping and stumbling with subsequent striking against unspecified object, initial encounter; Z79.899 Other long term (current) drug therapy; Z79.4 Long term (current) use of insulin; F17.210 Nicotine dependence, cigarettes, uncomplicated
CPT/HCPCS: 73564; 99283

== ENCOUNTER 2023-06-26 12:39 | Emergency (ER) | payer MEDICARE, SELFPAY ==
[2023-06-26] VITALS (16 sets, daily range): BP systolic 63–108; BP diastolic 38–59; PULSE 59–72; RESP 15–29; TEMP 36.8; O2SAT 90–95; BMI 37.8
[2023-06-26 12:44] LABS: Glucometer 106 mg/dL (74-106)
--- NOTE | 2023-06-26 13:27 | ECG_ITS ---
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
[2023-06-26 13:33] LABS: Basophils Absolute Auto 0.1 10^3/uL (0.0-0.1); Basophils Percent Auto 0.5 % (0.2-2.0); Eosinophils Absolute Auto 0.1 10^3/uL (0.0-0.7); Eosinophils Percent Auto 0.7 % (0.9-7.0); Hematocrit 44.2 % (36.0-48.0); Hemoglobin 14.2 g/dL (12.0-16.0); Immature Granulocytes Abs Auto 0.12 10^3/uL (0.00-0.03); Lymphocytes Absolute Auto 3.3 10^3/uL (1.2-3.8); Lymphocytes Percent Auto 29.2 % (20.5-60.0); Mean Corpuscular HGB Conc 32.1 g/dL (29.9-35.2); Mean Corpuscular Hemoglobin 31.8 pg (26.7-34.0); Mean Corpuscular Volume 98.9 fL (81.0-99.0); Monocytes Absolute Auto 0.8 10^3/uL (0.3-0.8); Monocytes Percent Auto 7.3 % (1.7-12.0); Neutrophils Percent Auto 61.3 % (43.0-75.0); Platelet Count 349 10^3/uL (150-450); Red Blood Count 4.47 10^6/uL (4.20-5.40); Red Cell Distribution Width 15.7 % (11.0-15.0); White Blood Count 11.4 10^3/uL (4.0-11.0)
[2023-06-26] MEDS: 0.9 % SODIUM CHLORIDE 1,000 ML 999 ML IV (13:38)
[2023-06-26 13:39] LABS: Anion Gap 12.8; BUN Creatinine Ratio 11.3; Calcium 8.2 mg/dL (8.5-10.1); Carbon Dioxide 23.4 mmol/L (21.0-32.0); Chloride 103 mmol/L (98-107); Estimated GFR (African America >60 (>=60); Estimated GFR (Non-African Ame 50 (>=60); Glucose 135 mg/dL (74-106); Potassium 3.2 mmol/L (3.5-5.1); Sodium 136 mmol/L (136-145)
--- NOTE | 2023-06-26 13:46 | ED.GENADUL1 ---
HPI - General Adult General Chief complaint: Syncope Stated complaint: GENERAL WEAKNESS Time Seen by Provider: 06/26/23 12:40 Source: patient Mode of arrival: ambulance Limitations: no limitations History of Present Illness HPI narrative: Patient brought in by EMS after she almost passed out at the [facility]. EMS stated that it was reported that the patient passed out but patient denies this. She said that she took too much muscle relaxer . She said that now she feels back to normal . EMS noted the patient had hypotension and give the patient a liter of normal saline IV fluid, which was still running on the patient's arrival. Related Data Home Medications Medication Instructions Recorded Confirmed albuterol sulfate 90 mcg/actuation 2 puff inhalation Q4H PRN 03/07/23 05/08/23 aerosol inhaler shortness of breath or wheezing atorvastatin 40 mg tablet 40 mg PO DAILY 03/07/23 05/08/23 budesonide 160 mcg-glycopyr 9 1 inh inhalation BID 03/07/23 05/09/23 mcg-formot 4.8 mcg/actuation HFA inhaler (Breztri Aerosphere) dapagliflozin propanediol 10 mg 10 mg PO DAILY 03/07/23 05/08/23 tablet (Farxiga) dulaglutide 1.5 mg/0.5 mL 1.5 mg subcut QWEEK 03/07/23 05/08/23 subcutaneous pen injector ([employer]) escitalopram oxalate 20 mg tablet 20 mg PO DAILY 03/07/23 05/08/23 gabapentin 800 mg tablet 800 mg PO TID 03/07/23 05/08/23 ibuprofen 800 mg tablet 800 mg PO TID 03/07/23 05/08/23 insulin aspart U-100 100 unit/mL 10 unit subcut TID 03/07/23 05/08/23 (3 mL) subcutaneous pen (Novolog FlexPen U-100 Insulin aspart) lamotrigine 150 mg tablet 150 mg PO BID 03/07/23 05/08/23 mirtazapine 30 mg tablet 30 mg PO BEDTIME 03/07/23 05/09/23 omeprazole 40 mg capsule,delayed 40 mg PO DAILY 03/07/23 05/08/23 release risperidone 1 mg tablet 1 mg PO BID 03/07/23 05/08/23 sitagliptin phos 100 mg-metformin 1 tab PO BEDTIME 03/07/23 05/09/23 ER 1,000 mg tablet,extend rel 24h mp (Janumet XR) tizanidine 4 mg tablet 4 mg PO TID PRN muscle spasticity 03/07/23 05/08/23 lorazepam 1 mg tablet (Ativan) 1 mg PO Q12H 05/08/23 05/08/23 Previous Rx's Medication Instructions Recorded methocarbamol 750 mg tablet 750 mg PO TID PRN pain #20 tabs 03/07/23 rntvpohvlaejqpb-qexfklpwwsctxsv-ED 5 ml PO Q6H PRN sinus symptoms 05/09/23 2 mg-30 mg-10 mg/5 mL oral syrup #118 mL (Bromfed DM) nicotine (polacrilex) 4 mg gum 4 mg buccal Q8H PRN nicotine 05/09/23 (Nicorette) cravings #110 ea nicotine 21 mg/24 hr daily 1 patch transdermal Q24H #28 ea 05/09/23 transdermal patch (Nicoderm CQ) prednisone 20 mg tablet 40 mg PO DAILY 7 days #14 tabs 05/09/23 tramadol 50 mg tablet 50 mg PO Q4H PRN pain #15 tabs 06/17/23 Allergies Allergy/AdvReac Type Severity Reaction Status Date / Time sumatriptan [From Imitrex] Allergy Severe Verified 05/08/23 19:35 PFSH PFSH Social History Smoking status: Current every day smoker Exam Narrative Exam Narrative: Nurses notes and vital signs reviewed and patient is not hypoxic. afebrile General: Well-appearing and in no apparent distress. Skin: Warm, dry, no pallor noted. No rash. Head: Normocephalic, atraumatic. Neck: Supple, non-tender. Eye: Pupils are equal, round and EOMI. No scleral icterus. Ears, Nose, Mouth, and Throat: TM are clear, no nasal mucosal hypertrophy. Oral mucosa is moist, no posterior oropharynx erythema, uvula is mid-line Cardiovascular: Regular Rate and Rhythm without murmur, gallop or rub. Respiratory: No accessory muscle use or respiratory distress. Lungs are clear to auscultation, no wheezing, rales or rhonchi Chest Wall: no tenderness Back: No midline thoracic or lumbar vertebral tenderness. No CVA tenderness Musculoskeletal: normal ROM, no calf or popliteal tenderness, no lower extremity edema/swelling GI: Abdomen is soft, non-distended. Normal bowel sounds. No masses appreciated. No tenderness to palpation. No rebound, guarding, or rigidity noted. Neurological: A&O x4. No cranial nerve dysfunction observed. No truncal ataxia. Moves all extremities. Sensation intact. Psychiatric: Cooperative and interactive. Normal mood and affect. Constitutional Vital Signs, click to edit/add: Last Vital Signs Temp 98.2 F 06/26/23 12:42 Pulse 72 06/26/23 14:20 Resp 18 06/26/23 14:20 BP 108/59 06/26/23 14:15 Pulse Ox 91 L 06/26/23 14:20 O2 Del Method Room Air 06/26/23 12:42 Course Vital Signs Vital signs: Vital Signs Temperature 98.2 F 06/26/23 12:42 Pulse Rate 59 L 06/26/23 12:42 Respiratory Rate 18 06/26/23 12:42 Blood Pressure 79/42 L 06/26/23 12:42 Pulse Oximetry 95 06/26/23 12:42 Oxygen Delivery Method Room Air 06/26/23 12:42 Temperature 98.2 F 06/26/23 12:42 Pulse Rate 72 06/26/23 14:20 Respiratory Rate 18 06/26/23 14:20 Blood Pressure 108/59 06/26/23 14:15 Pulse Oximetry 91 L 06/26/23 14:20 Oxygen Delivery Method Room Air 06/26/23 12:42 Medical Decision Making [facility] Narrative Medical decision making narrative: Patient was placed on youth nutritional monitor and EKG obtained. Blood drawn and sent for evaluation. She was ordered to receive a 2nd liter of normal saline IV fluid. Potassium was slightly low and she was given oral potassium in the emergency department. Creatinine was slightly elevated. White blood cell count is elevated but she does not have any symptoms suggesting infection or signs of infection on examination. She felt better after ED treatment and wanted to go home. She was discharged after the 2nd liter of NS IVF was given and we discussed caution with respect to her med dosing. Lab Data Lab results reviewed: Yes I reviewed the patient's lab results Labs: Lab Results 06/26/23 06/26/23 Range/Units 12:43 12:52 WBC 11.4 H (4.0-11.0) 10^3/uL RBC 4.47 (4.20-5.40) 10^6/uL Hgb 14.2 (12.0-16.0) g/dL Hct 44.2 (36.0-48.0) % MCV 98.9 (81.0-99.0) fL MCH 31.8 (26.7-34.0) pg MCHC 32.1 (29.9-35.2) g/dL RDW 15.7 H (11.0-15.0) % Plt Count 349 (150-450) 10^3/uL MPV 9.0 L (9.5-13.5) fL Neut % (Auto) 61.3 (43.0-75.0) % Lymph % (Auto) 29.2 (20.5-60.0) % Ford % (Auto) 7.3 (1.7-12.0) % Eos % (Auto) 0.7 L (0.9-7.0) % Baso % (Auto) 0.5 (0.2-2.0) % Neut # (Auto) 7.0 H (1.4-6.5) 10^3/uL Lymph # (Auto) 3.3 (1.2-3.8) 10^3/uL Ford # (Auto) 0.8 (0.3-0.8) 10^3/uL Eos # (Auto) 0.1 (0.0-0.7) 10^3/uL Baso # (Auto) 0.1 (0.0-0.1) 10^3/uL Abs Immat Gran (auto) 0.12 H (0.00-0.03) 10^3/uL Imm/Tot Granulo (auto) 1.0 H (0.0-0.5) % Sodium 136 (136-145) mmol/L Potassium 3.2 L (3.5-5.1) mmol/L Chloride 103 (98-107) mmol/L Carbon Dioxide 23.4 (21.0-32.0) mmol/L Anion Gap 12.8 BUN 13.0 (7.0-18.0) mg/dL Creatinine 1.15 H (0.55-1.02) mg/dL Est GFR ( Amer) >60 (>=60) Est GFR (Non-Af Amer) 50 L (>=60) BUN/Creatinine Ratio 11.3 Glucose 135 H (74-106) mg/dL Calcium 8.2 L (8.5-10.1) mg/dL POC Glucose 106 (74-106) mg/dL ECG Data Attestation: ?I have reviewed the pertinent ECG results. Interpretation: EKG interpretation: Emergency Department physician interpretation. Normal sinus rhythm at 60bpm. Normal axis, normal intervals and no ST segment elevation or depression. normal EKG Discharge Plan Discharge Chief Complaint: Syncope Clinical Impression: Vasovagal syncope, Acute hypokalemia Patient Disposition: Home, Self-Care Time of Disposition Decision: 13:49 Mode of Transportation: Private Vehicle Prescriptions / Home Meds: No Action tramadol 50 mg tablet 50 mg PO Q4H PRN (Reason: pain) Qty: 15 0RF Rx Instructions: DX: M25.562 albuterol sulfate 90 mcg/actuation HFA aerosol inhaler 2 puff INHALATION Q4H PRN (Reason: shortness of breath or wheezing) atorvastatin 40 mg tablet 40 mg PO DAILY Breztri Aerosphere 160-9-4.8 mcg/actuation HFA aerosol inhaler 1 inh INHALATION BID Farxiga 10 mg tablet 10 mg PO DAILY Trulicity 1.5 mg/0.5 mL pen injector 1.5 mg SUBCUT QWEEK escitalopram oxalate 20 mg tablet 20 mg PO DAILY gabapentin 800 mg tablet 800 mg PO TID ibuprofen 800 mg tablet 800 mg PO TID insulin aspart U-100 [Novolog FlexPen U-100 Insulin] 100 unit/mL (3 mL) insulin pen 10 unit SUBCUT TID Patient Comments: with sliding scale, max 50 units daily lamotrigine 150 mg tablet 150 mg PO BID mirtazapine 30 mg tablet 30 mg PO BEDTIME omeprazole 40 mg capsule,delayed release(DR/EC) 40 mg PO DAILY risperidone 1 mg tablet 1 mg PO BID Janumet XR 100-1,000 mg tablet, ER multiphase 24 hr 1 tab PO BEDTIME tizanidine 4 mg tablet 4 mg PO TID PRN (Reason: muscle spasticity) methocarbamol 750 mg tablet 750 mg PO TID PRN (Reason: pain) Qty: 20 0RF lorazepam [Ativan] 1 mg tablet 1 mg PO Q12H prednisone 20 mg Tablet 40 mg PO DAILY 7 Days Qty: 14 0RF nicotine [Nicoderm CQ] 21 mg/24 hr patch 24 hour 1 patch transdermal Q24H Qty: 28 0RF nicotine (polacrilex) [Nicorette] 4 mg gum 4 mg buccal Q8H PRN (Reason: nicotine cravings) Qty: 110 0RF dzydjwfnwotwsks-xhmpbqtec-NF [Bromfed DM] 2-30-10 mg/5 mL syrup 5 ml PO Q6H PRN (Reason: sinus symptoms) Qty: 118 0RF Instructions: Hypokalemia (ED), Near Syncope (ED) Stand Alone Forms: Portal Instructions Referrals: Shaikh Cruz MD [Primary Care Provider] - 1 week Discharge Date/Time: 06/26/23 14:29
[2023-06-26] MEDS: POTASSIUM CHLORIDE 10 MEQ ER TABLET 40 MEQ PO (14:21)
== END 2023-06-26 14:29 | disposition home or self-care (01) ==
PROVIDERS: Emergency Provider Emergency Medicine; PCP Internal Medicine
DX: R55 Syncope and collapse (principal); E87.6 Hypokalemia; F17.210 Nicotine dependence, cigarettes, uncomplicated; Z79.899 Other long term (current) drug therapy; Z79.4 Long term (current) use of insulin; Z79.85 Long-term (current) use of injectable non-insulin antidiabetic drugs
CPT/HCPCS: 36415; 36416; 80048; 82948; 85025; 93005; 96360; 99285

== ENCOUNTER 2023-10-08 15:05 | Emergency (ER) | payer MEDICARE, SELFPAY ==
[2023-10-08] VITALS (18 sets, daily range): BP systolic 78–138; BP diastolic 65–82; PULSE 90–103; RESP 16–32; TEMP 37.1; O2SAT 87–97; BMI 33.5
--- NOTE | 2023-10-08 15:13 | XR_ITS ---
The [address] [address] Patient Name: DIAN RAY MRN: [id number] date: 1975 Sex: F Assigned Patient Location: ER Current Patient Location: ER Accession/Order Number: [id number] Exam Date: 10/08/2023 16:00 Report Date: 10/08/2023 16:23 At the request of: DIAN BARNEY Procedure: XR chest 2V EXAM: XR chest 2V HISTORY: sob COMPARISON: 05/19/2023 TECHNIQUE: 2 views of the chest FINDINGS: Heart size normal. No focal consolidation, pleural effusion, pulmonary congestion or pneumothorax. XR/XR chest 2V IMPRESSION: No acute findings. Electronically authenticated by: JULISA MUJICA Date: 10/08/2023 16:23
[2023-10-08] MEDS: IPRATROPIUM/ALBUTEROL SULFATE 3 ML AMPUL.NEB IH (15:23)
--- NOTE | 2023-10-08 15:25 | ED_ITS ---
Documented by User: Christiane Rand 10/08/23 16:47 HPI - SOB/Dyspnea General Chief Complaint: Shortness of Breath/Dyspnea Stated Complaint: Difficulty Breathing Time Seen by Provider: 10/08/23 15:13 Source: patient Mode of arrival: walk-in Limitations: no limitations History of Present Illness HPI Narrative: 48-year-old female with a history of COPD presents with chief complaint of shortness of breath. Patient is a smoker. She has had increased shortness of breath at home. Pulse ox normal at home is around 90 to 93% on room air. Today patient presents at 90% on room air. She is able to speak full sentences. She has no accessory muscle usage. Lung sounds are tight with the story expiratory wheezing on exam. She did attempt to take a breathing treatment at home without relief. she is not currently taking oral steroids Related Data Home Medications Medication Instructions Recorded Confirmed albuterol sulfate 90 mcg/actuation 2 puff inhalation Q4H PRN 03/07/23 05/08/23 aerosol inhaler shortness of breath or wheezing atorvastatin 40 mg tablet 40 mg PO DAILY 03/07/23 05/08/23 budesonide 160 mcg-glycopyr 9 1 inh inhalation BID 03/07/23 05/09/23 mcg-formot 4.8 mcg/actuation HFA inhaler (Breztri Aerosphere) dapagliflozin propanediol 10 mg 10 mg PO DAILY 03/07/23 05/08/23 tablet (Farxiga) dulaglutide 1.5 mg/0.5 mL 1.5 mg subcut QWEEK 03/07/23 05/08/23 subcutaneous pen injector ([facility]) escitalopram oxalate 20 mg tablet 20 mg PO DAILY 03/07/23 05/08/23 gabapentin 800 mg tablet 800 mg PO TID 03/07/23 05/08/23 ibuprofen 800 mg tablet 800 mg PO TID 03/07/23 05/08/23 insulin aspart U-100 100 unit/mL 10 unit subcut TID 03/07/23 05/08/23 (3 mL) subcutaneous pen (Novolog FlexPen U-100 Insulin aspart) lamotrigine 150 mg tablet 150 mg PO BID 03/07/23 05/08/23 mirtazapine 30 mg tablet 30 mg PO BEDTIME 03/07/23 05/09/23 omeprazole 40 mg capsule,delayed 40 mg PO DAILY 03/07/23 05/08/23 release risperidone 1 mg tablet 1 mg PO BID 03/07/23 05/08/23 sitagliptin phos 100 mg-metformin 1 tab PO BEDTIME 03/07/23 05/09/23 ER 1,000 mg tablet,extend rel 24h mp (Janumet XR) tizanidine 4 mg tablet 4 mg PO TID PRN muscle spasticity 03/07/23 05/08/23 lorazepam 1 mg tablet (Ativan) 1 mg PO Q12H 05/08/23 05/08/23 Previous Rx's Medication Instructions Recorded methocarbamol 750 mg tablet 750 mg PO TID PRN pain #20 tabs 03/07/23 msqwzipzpvmumcz-scuganprkiwxpgc-XA 5 ml PO Q6H PRN sinus symptoms 05/09/23 2 mg-30 mg-10 mg/5 mL oral syrup #118 mL (Bromfed DM) nicotine (polacrilex) 4 mg gum 4 mg buccal Q8H PRN nicotine 05/09/23 (Nicorette) cravings #110 ea nicotine 21 mg/24 hr daily 1 patch transdermal Q24H #28 ea 05/09/23 transdermal patch (Nicoderm CQ) prednisone 20 mg tablet 40 mg (2 x 20 mg) PO DAILY 7 days 05/09/23 #14 tabs tramadol 50 mg tablet 50 mg PO Q4H PRN pain #15 tabs 06/17/23 Allergies Allergy/AdvReac Type Severity Reaction Status Date / Time sumatriptan [From Imitrex] Allergy Severe Verified 05/08/23 19:35 Review of Systems ROS Narrative All Systems are negative except as noted/marked. PFSH PFSH Social History Smoking status: Current every day smoker Exam Narrative Exam Narrative: All Systems are negative except as noted/marked.All systems reviewed and otherwise negative Nurses note and vital signs reviewed and patient is not hypoxic. General: The patient appears well and in no apparent distress. Patient is resting comfortably on cart. Skin: Warm, dry, no pallor noted. There is no rash noted. Head: Normocephalic, atraumatic Eye: Normal conjunctiva, no drainage, EOMI. PERRL Ears, Nose, Mouth, and Throat: oral mucosa is moist. Nares patent. Mouth without vesicles. Ear canals patent. Tm's without Erythema Cardiovascular: Regular Rate and Rhythm Respiratory: inspiratory and expiratory wheezes anterior and posterior, no accessory muscle usage,able to speak full senteces Back: non-tender, no CVA tenderness bilaterally to percussion. GI: Normal bowel sounds, no tenderness to palpation, no masses appreciated. No rebound, guarding, or rigidity noted. Musculoskeletal: The patient has no evidence of calf tenderness, no pitting edema, symmetrical pulses noted bilaterally Neurological: A&O x4, normal speech Psychiatric: Cooperative Constitutional Vital Signs, click to edit/add: Last Vital Signs Temp 98.8 F 10/08/23 15:08 Pulse 90 10/08/23 16:50 Resp 20 10/08/23 16:50 BP 109/81 10/08/23 16:31 Pulse Ox 92 L 10/08/23 16:50 O2 Del Method Room Air, Nasal Cannula 10/08/23 15:51 O2 Flow Rate 2 10/08/23 15:51 Course Vital Signs Vital signs: Vital Signs Temperature 98.8 F 10/08/23 15:08 Pulse Rate 103 H 10/08/23 15:08 Respiratory Rate 20 10/08/23 15:08 Blood Pressure 138/82 10/08/23 15:08 Pulse Oximetry 91 L 10/08/23 15:08 Oxygen Delivery Method Room Air 10/08/23 15:08 Temperature 98.8 F 10/08/23 15:08 Pulse Rate 90 10/08/23 16:50 Respiratory Rate 20 10/08/23 16:50 Blood Pressure 109/81 10/08/23 16:31 Pulse Oximetry 92 L 10/08/23 16:50 Oxygen Delivery Method Room Air, Nasal Cannula 10/08/23 15:51 Oxygen Delivery Flow Rate 2 10/08/23 15:51 MDM - SOB/Dyspnea MDM Narrative Medical decision making narrative: 48-year-old female with a history of COPD presents with chief complaint of shortness of breath. Patient is a smoker. She has had increased shortness of breath at home. Pulse ox normal at home is around 90 to 93% on room air. Today patient presents at 90% on room air. She is able to speak full sentences. She has no accessory muscle usage. Lung sounds are tight with the story expiratory wheezing on exam. She did attempt to take a breathing treatment at home without relief. she is not currently taking oral steroids Upon arrival to the emergency room IV was established blood work and chest x-ray were performed. Patient was given DuoNeb breathing treatment and IV steroids. She has responded well to the steroids. Patient denies taking any of her medications today. She does have an elevated blood sugar. Anion gap is normal. She is going to take her medications when she gets home. Patient does have oxygen at home. She has been ranging between 90 and 94% here in emergency room 9495% while wearing oxygen. Patient is made aware that she is going to placed on steroids for 3 days to watch her sugars at home. Patient verbalized understanding agrees with plan of care Differential Diagnosis Differential diagnosis: Likely acute exacerbation of chronic obstructive airways disease, congestive heart failure and community acquired pneumonia Medical Records Attestation: I reviewed the patient's medical records. Lab Data Attestation: I reviewed the patient's lab results. Labs: Lab Results 10/08/23 Range/Units 15:20 WBC 12.6 H (4.0-11.0) 10^3/uL RBC 4.68 (4.20-5.40) 10^6/uL Hgb 15.1 (12.0-16.0) g/dL Hct 47.7 (36.0-48.0) % MCV 101.9 H (81.0-99.0) fL MCH 32.3 (26.7-34.0) pg MCHC 31.7 (29.9-35.2) g/dL RDW 15.5 H (11.0-15.0) % Plt Count 288 (150-450) 10^3/uL MPV 9.5 (9.5-13.5) fL Neut % (Auto) 77.0 H (43.0-75.0) % Lymph % (Auto) 13.1 L (20.5-60.0) % Gosper % (Auto) 8.2 (1.7-12.0) % Eos % (Auto) 0.7 L (0.9-7.0) % Baso % (Auto) 0.6 (0.2-2.0) % Neut # (Auto) 9.7 H (1.4-6.5) 10^3/uL Lymph # (Auto) 1.7 (1.2-3.8) 10^3/uL Gosper # (Auto) 1.0 H (0.3-0.8) 10^3/uL Eos # (Auto) 0.1 (0.0-0.7) 10^3/uL Baso # (Auto) 0.1 (0.0-0.1) 10^3/uL Abs Immat Gran (auto) 0.05 H (0.00-0.03) 10^3/uL Imm/Tot Granulo (auto) 0.4 (0.0-0.5) % PT 9.9 (9.0-11.6) sec INR 0.93 Sodium 136 (136-145) mmol/L Potassium 4.4 (3.5-5.1) mmol/L Chloride 99 (98-107) mmol/L Carbon Dioxide 26.1 (21.0-32.0) mmol/L Anion Gap 15.3 BUN 8.0 (7.0-18.0) mg/dL Creatinine 1.15 H (0.55-1.02) mg/dL Est GFR ( Amer) >60 (>=60) Est GFR (Non-Af Amer) 50 L (>=60) BUN/Creatinine Ratio 7.0 Glucose 427 H (74-106) mg/dL Calcium 8.8 (8.5-10.1) mg/dL Total Bilirubin 0.4 (0.2-1.0) mg/dL AST 9 L (15-37) U/L ALT 12 L (14-59) U/L Alkaline Phosphatase 71 (46-116) U/L Troponin I High Sens 27.9 (4.0-51.3) pg/mL NT-Pro-B Natriuret Pep 177.0 (<=450.0) pg/mL Total Protein 6.9 (6.4-8.2) g/dL Albumin 2.9 L (3.4-5.0) g/dL Globulin 4.0 g/dL Albumin/Globulin Ratio 0.7 Imaging Data Chest x-ray: Radiologist's impression: ITS Impressions Chest X-Ray 10/08/23 15:13 IMPRESSION: No acute findings. Electronically authenticated by: JULISA MUJICA Date: 10/08/2023 16:23 ECG Data Attestation: ?I have reviewed the pertinent ECG results. Interpretation: 1542 Sinus rhythm with a rate of 97 bpm MD interval 176 ms QRS duration 82 ms, no ST elevation or depression, no STEMI Discharge Plan Discharge Chief Complaint: Shortness of Breath/Dyspnea Clinical Impression: COPD exacerbation Patient Disposition: Home, Self-Care Time of Disposition Decision: 16:44 Condition: Good Prescriptions / Home Meds: No Action tramadol 50 mg tablet 50 mg PO Q4H PRN (Reason: pain) Qty: 15 0RF Rx Instructions: DX: M25.562 albuterol sulfate 90 mcg/actuation HFA aerosol inhaler 2 puff INHALATION Q4H PRN (Reason: shortness of breath or wheezing) atorvastatin 40 mg tablet 40 mg PO DAILY Breztri Aerosphere 160-9-4.8 mcg/actuation HFA aerosol inhaler 1 inh INHALATION BID Farxiga 10 mg tablet 10 mg PO DAILY Trulicity 1.5 mg/0.5 mL pen injector 1.5 mg SUBCUT QWEEK escitalopram oxalate 20 mg tablet 20 mg PO DAILY gabapentin 800 mg tablet 800 mg PO TID ibuprofen 800 mg tablet 800 mg PO TID insulin aspart U-100 [Novolog FlexPen U-100 Insulin] 100 unit/mL (3 mL) insulin pen 10 unit SUBCUT TID Patient Comments: with sliding scale, max 50 units daily lamotrigine 150 mg tablet 150 mg PO BID mirtazapine 30 mg tablet 30 mg PO BEDTIME omeprazole 40 mg capsule,delayed release(DR/EC) 40 mg PO DAILY risperidone 1 mg tablet 1 mg PO BID Janumet XR 100-1,000 mg tablet, ER multiphase 24 hr 1 tab PO BEDTIME tizanidine 4 mg tablet 4 mg PO TID PRN (Reason: muscle spasticity) methocarbamol 750 mg tablet 750 mg PO TID PRN (Reason: pain) Qty: 20 0RF lorazepam [Ativan] 1 mg tablet 1 mg PO Q12H prednisone 20 mg Tablet 40 mg PO DAILY 7 Days Qty: 14 0RF nicotine [Nicoderm CQ] 21 mg/24 hr patch 24 hour 1 patch transdermal Q24H Qty: 28 0RF nicotine (polacrilex) [Nicorette] 4 mg gum 4 mg buccal Q8H PRN (Reason: nicotine cravings) Qty: 110 0RF oubtytzwuieyldt-smhkxsklg-WR [Bromfed DM] 2-30-10 mg/5 mL syrup 5 ml PO Q6H PRN (Reason: sinus symptoms) Qty: 118 0RF Instructions: COPD (Chronic Obstructive Pulmonary Disease) (ED) Stand Alone Forms: Portal Instructions Referrals: Shaikh Cruz MD [Primary Care Provider] - 1 week Documented by User: Giovanny Leon MD 10/08/23 17:08 HPI - SOB/Dyspnea General Chief Complaint: Shortness of Breath/Dyspnea Stated Complaint: Difficulty Breathing Time Seen by Provider: 10/08/23 15:13 Related Data Home Medications Medication Instructions Recorded Confirmed albuterol sulfate 90 mcg/actuation 2 puff inhalation Q4H PRN 03/07/23 05/08/23 aerosol inhaler shortness of breath or wheezing atorvastatin 40 mg tablet 40 mg PO DAILY 03/07/23 05/08/23 budesonide 160 mcg-glycopyr 9 1 inh inhalation BID 03/07/23 05/09/23 mcg-formot 4.8 mcg/actuation HFA inhaler (Breztri Aerosphere) dapagliflozin propanediol 10 mg 10 mg PO DAILY 03/07/23 05/08/23 tablet (Farxiga) dulaglutide 1.5 mg/0.5 mL 1.5 mg subcut QWEEK 03/07/23 05/08/23 subcutaneous pen injector ([facility]) escitalopram oxalate 20 mg tablet 20 mg PO DAILY 03/07/23 05/08/23 gabapentin 800 mg tablet 800 mg PO TID 03/07/23 05/08/23 ibuprofen 800 mg tablet 800 mg PO TID 03/07/23 05/08/23 insulin aspart U-100 100 unit/mL 10 unit subcut TID 03/07/23 05/08/23 (3 mL) subcutaneous pen (Novolog FlexPen U-100 Insulin aspart) lamotrigine 150 mg tablet 150 mg PO BID 03/07/23 05/08/23 mirtazapine 30 mg tablet 30 mg PO BEDTIME 03/07/23 05/09/23 omeprazole 40 mg capsule,delayed 40 mg PO DAILY 03/07/23 05/08/23 release risperidone 1 mg tablet 1 mg PO BID 03/07/23 05/08/23 sitagliptin phos 100 mg-metformin 1 tab PO BEDTIME 03/07/23 05/09/23 ER 1,000 mg tablet,extend rel 24h mp (Janumet XR) tizanidine 4 mg tablet 4 mg PO TID PRN muscle spasticity 03/07/23 05/08/23 lorazepam 1 mg tablet (Ativan) 1 mg PO Q12H 05/08/23 05/08/23 Previous Rx's Medication Instructions Recorded methocarbamol 750 mg tablet 750 mg PO TID PRN pain #20 tabs 03/07/23 qlawaxuthvvxmve-wanqcihszypypck-WQ 5 ml PO Q6H PRN sinus symptoms 05/09/23 2 mg-30 mg-10 mg/5 mL oral syrup #118 mL (Bromfed DM) nicotine (polacrilex) 4 mg gum 4 mg buccal Q8H PRN nicotine 05/09/23 (Nicorette) cravings #110 ea nicotine 21 mg/24 hr daily 1 patch transdermal Q24H #28 ea 05/09/23 transdermal patch (Nicoderm CQ) prednisone 20 mg tablet 40 mg (2 x 20 mg) PO DAILY 7 days 05/09/23 #14 tabs tramadol 50 mg tablet 50 mg PO Q4H PRN pain #15 tabs 06/17/23 Allergies Allergy/AdvReac Type Severity Reaction Status Date / Time sumatriptan [From Imitrex] Allergy Severe Verified 05/08/23 19:35 PFSH [facility] Social History Smoking status: Current every day smoker Exam Constitutional Vital Signs, click to edit/add: Last Vital Signs Temp 98.8 F 10/08/23 15:08 Pulse 90 10/08/23 16:50 Resp 20 10/08/23 16:50 BP 109/81 10/08/23 16:31 Pulse Ox 92 L 10/08/23 16:50 O2 Del Method Room Air, Nasal Cannula 10/08/23 15:51 O2 Flow Rate 2 10/08/23 15:51 Course Vital Signs Vital signs: Vital Signs Temperature 98.8 F 10/08/23 15:08 Pulse Rate 103 H 10/08/23 15:08 Respiratory Rate 20 10/08/23 15:08 Blood Pressure 138/82 10/08/23 15:08 Pulse Oximetry 91 L 10/08/23 15:08 Oxygen Delivery Method Room Air 10/08/23 15:08 Temperature 98.8 F 10/08/23 15:08 Pulse Rate 90 10/08/23 16:50 Respiratory Rate 20 10/08/23 16:50 Blood Pressure 109/81 10/08/23 16:31 Pulse Oximetry 92 L 10/08/23 16:50 Oxygen Delivery Method Room Air, Nasal Cannula 10/08/23 15:51 Oxygen Delivery Flow Rate 2 10/08/23 15:51 MDM - SOB/Dyspnea MDM Narrative Medical decision making narrative: 48-year-old female with a history of COPD presents with chief complaint of shortness of breath. Patient is a smoker. She has had increased shortness of breath at home. Pulse ox normal at home is around 90 to 93% on room air. Today patient presents at 90% on room air. She is able to speak full sentences. She has no accessory muscle usage. Lung sounds are tight with the story expiratory wheezing on exam. She did attempt to take a breathing treatment at home without relief. she is not currently taking oral steroids. Upon arrival to the emergency room IV was established blood work and chest x-ray were performed. Patient was given DuoNeb breathing treatment and IV steroids. She has responded well to the steroids. Patient denies taking any of her medications today. She does have an elevated blood sugar. Anion gap is normal. She is going to take her medications when she gets home. Patient does have oxygen at home. She has been ranging between 90 and 94% here in emergency room 94-95% while wearing oxygen. Patient is made aware that she is going to placed on steroids for 3 days to watch her sugars at home. Patient verbalized understanding agrees with plan of care. I, Dr Leon, have reviewed the above progress note and course of action in the ER; agree with the above. I have personally seen and evaluated this patient, gone over history and physical, and discussed disposition and treatment plan with the patient. Patient wants to go home, she does not want to be admitted to the hospital. Patient feels better with breathing treatments. Patient is asking to be on steroids for a few days, we will give her 3 additional days. No indication for antibiotics. Tobacco cessation education was done for 3 to 5 minutes at bedside. Patient understands that she keeps smoking and it is making her COPD and symptoms worse. Patient does have a inserter along with PCP. Patient needs to change her diabetic sensor as well so that she can have better control of her sugar with insulin as well. Patient understands she needs to increase fluids as well. Lab Data Labs: Lab Results 10/08/23 Range/Units 15:20 WBC 12.6 H (4.0-11.0) 10^3/uL RBC 4.68 (4.20-5.40) 10^6/uL Hgb 15.1 (12.0-16.0) g/dL Hct 47.7 (36.0-48.0) % MCV 101.9 H (81.0-99.0) fL MCH 32.3 (26.7-34.0) pg MCHC 31.7 (29.9-35.2) g/dL RDW 15.5 H (11.0-15.0) % Plt Count 288 (150-450) 10^3/uL MPV 9.5 (9.5-13.5) fL Neut % (Auto) 77.0 H (43.0-75.0) % Lymph % (Auto) 13.1 L (20.5-60.0) % Gosper % (Auto) 8.2 (1.7-12.0) % Eos % (Auto) 0.7 L (0.9-7.0) % Baso % (Auto) 0.6 (0.2-2.0) % Neut # (Auto) 9.7 H (1.4-6.5) 10^3/uL Lymph # (Auto) 1.7 (1.2-3.8) 10^3/uL Gosper # (Auto) 1.0 H (0.3-0.8) 10^3/uL Eos # (Auto) 0.1 (0.0-0.7) 10^3/uL Baso # (Auto) 0.1 (0.0-0.1) 10^3/uL Abs Immat Gran (auto) 0.05 H (0.00-0.03) 10^3/uL Imm/Tot Granulo (auto) 0.4 (0.0-0.5) % PT 9.9 (9.0-11.6) sec INR 0.93 Sodium 136 (136-145) mmol/L Potassium 4.4 (3.5-5.1) mmol/L Chloride 99 (98-107) mmol/L Carbon Dioxide 26.1 (21.0-32.0) mmol/L Anion Gap 15.3 BUN 8.0 (7.0-18.0) mg/dL Creatinine 1.15 H (0.55-1.02) mg/dL Est GFR ( Amer) >60 (>=60) Est GFR (Non-Af Amer) 50 L (>=60) BUN/Creatinine Ratio 7.0 Glucose 427 H (74-106) mg/dL Calcium 8.8 (8.5-10.1) mg/dL Total Bilirubin 0.4 (0.2-1.0) mg/dL AST 9 L (15-37) U/L ALT 12 L (14-59) U/L Alkaline Phosphatase 71 (46-116) U/L Troponin I High Sens 27.9 (4.0-51.3) pg/mL NT-Pro-B Natriuret Pep 177.0 (<=450.0) pg/mL Total Protein 6.9 (6.4-8.2) g/dL Albumin 2.9 L (3.4-5.0) g/dL Globulin 4.0 g/dL Albumin/Globulin Ratio 0.7 Imaging Data Chest x-ray: Radiologist's impression: ITS Impressions Chest X-Ray 10/08/23 15:13 IMPRESSION: No acute findings. Electronically authenticated by: JULISA MUJICA Date: 10/08/2023 16:23 Discharge Plan Discharge Chief Complaint: Shortness of Breath/Dyspnea Clinical Impression: COPD exacerbation Patient Disposition: Home, Self-Care Time of Disposition Decision: 16:44 Condition: Good Prescriptions / Home Meds: No Action tramadol 50 mg tablet 50 mg PO Q4H PRN (Reason: pain) Qty: 15 0RF Rx Instructions: DX: M25.562 albuterol sulfate 90 mcg/actuation HFA aerosol inhaler 2 puff INHALATION Q4H PRN (Reason: shortness of breath or wheezing) atorvastatin 40 mg tablet 40 mg PO DAILY Breztri Aerosphere 160-9-4.8 mcg/actuation HFA aerosol inhaler 1 inh INHALATION BID Farxiga 10 mg tablet 10 mg PO DAILY Trulicity 1.5 mg/0.5 mL pen injector 1.5 mg SUBCUT QWEEK escitalopram oxalate 20 mg tablet 20 mg PO DAILY gabapentin 800 mg tablet 800 mg PO TID ibuprofen 800 mg tablet 800 mg PO TID insulin aspart U-100 [Novolog FlexPen U-100 Insulin] 100 unit/mL (3 mL) insulin pen 10 unit SUBCUT TID Patient Comments: with sliding scale, max 50 units daily lamotrigine 150 mg tablet 150 mg PO BID mirtazapine 30 mg tablet 30 mg PO BEDTIME omeprazole 40 mg capsule,delayed release(DR/EC) 40 mg PO DAILY risperidone 1 mg tablet 1 mg PO BID Janumet XR 100-1,000 mg tablet, ER multiphase 24 hr 1 tab PO BEDTIME tizanidine 4 mg tablet 4 mg PO TID PRN (Reason: muscle spasticity) methocarbamol 750 mg tablet 750 mg PO TID PRN (Reason: pain) Qty: 20 0RF lorazepam [Ativan] 1 mg tablet 1 mg PO Q12H prednisone 20 mg Tablet 40 mg PO DAILY 7 Days Qty: 14 0RF nicotine [Nicoderm CQ] 21 mg/24 hr patch 24 hour 1 patch transdermal Q24H Qty: 28 0RF nicotine (polacrilex) [Nicorette] 4 mg gum 4 mg buccal Q8H PRN (Reason: nicotine cravings) Qty: 110 0RF gfklytofdyefras-kckpttudk-PN [Bromfed DM] 2-30-10 mg/5 mL syrup 5 ml PO Q6H PRN (Reason: sinus symptoms) Qty: 118 0RF Instructions: COPD (Chronic Obstructive Pulmonary Disease) (ED) Stand Alone Forms: Portal Instructions Referrals: Shaikh Cruz MD [Primary Care Provider] - 1 week
--- NOTE | 2023-10-08 15:25 | ECG_ITS ---
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
[2023-10-08 15:31] LABS: Basophils Absolute Auto 0.1 10^3/uL (0.0-0.1); Basophils Percent Auto 0.6 % (0.2-2.0); Eosinophils Absolute Auto 0.1 10^3/uL (0.0-0.7); Eosinophils Percent Auto 0.7 % (0.9-7.0); Hematocrit 47.7 % (36.0-48.0); Hemoglobin 15.1 g/dL (12.0-16.0); Immature Granulocytes Abs Auto 0.05 10^3/uL (0.00-0.03); Immature Granulocytes Pct Auto 0.4 % (0.0-0.5); Lymphocytes Absolute Auto 1.7 10^3/uL (1.2-3.8); Lymphocytes Percent Auto 13.1 % (20.5-60.0); Mean Corpuscular HGB Conc 31.7 g/dL (29.9-35.2); Mean Corpuscular Hemoglobin 32.3 pg (26.7-34.0); Mean Corpuscular Volume 101.9 fL (81.0-99.0); Mean Platelet Volume 9.5 fL (9.5-13.5); Monocytes Percent Auto 8.2 % (1.7-12.0); Neutrophils Absolute Auto 9.7 10^3/uL (1.4-6.5); Platelet Count 288 10^3/uL (150-450); Red Blood Count 4.68 10^6/uL (4.20-5.40); Red Cell Distribution Width 15.5 % (11.0-15.0); White Blood Count 12.6 10^3/uL (4.0-11.0)
[2023-10-08] MEDS: METHYLPREDNISOLONE SOD SUCC PF 125 MG/2 ML VIAL IVP (15:38)
[2023-10-08 15:43] LABS: INR 0.93; Prothrombin Time 9.9 sec (9.0-11.6)
[2023-10-08 15:44] LABS: Alanine Aminotransferase 12 U/L (14-59); Albumin Globulin Ratio 0.7; Albumin Level 2.9 g/dL (3.4-5.0); Alkaline Phosphatase 71 U/L (46-116); Anion Gap 15.3; Aspartate Amino Transferase 9 U/L (15-37); Bilirubin Total 0.4 mg/dL (0.2-1.0); Calcium 8.8 mg/dL (8.5-10.1); Carbon Dioxide 26.1 mmol/L (21.0-32.0); Chloride 99 mmol/L (98-107); Estimated GFR (African America >60 (>=60); Estimated GFR (Non-African Ame 50 (>=60); Glucose 427 mg/dL (74-106); Potassium 4.4 mmol/L (3.5-5.1); Sodium 136 mmol/L (136-145); Total Protein 6.9 g/dL (6.4-8.2)
[2023-10-08 15:53] LABS: Troponin I High Sensitivity 27.9 pg/mL (4.0-51.3)
[2023-10-08] MEDS: 0.9 % SODIUM CHLORIDE 1,000 ML 1000 ML IV (16:11)
[2023-10-08 16:35] LABS: Adenovirus NOT DETECTED (NOT DETECTE); Bordetella parapertussis NOT DETECTED (NOT DETECTE); Coronavirus 229E NOT DETECTED (NOT DETECTE); Coronavirus HKU1 NOT DETECTED (NOT DETECTE); Coronavirus NL63 NOT DETECTED (NOT DETECTE); Coronavirus OC43 NOT DETECTED (NOT DETECTE); Human Metapneumovirus NOT DETECTED (NOT DETECTE); Human Rhinovirus/Enterovirus NOT DETECTED (NOT DETECTE); Influenza A NOT DETECTED (NOT DETECTE); Influenza B NOT DETECTED (NOT DETECTE); Mycoplasma pneumoniae NOT DETECTED (NOT DETECTE); Parainfluenza Virus 1 NOT DETECTED (NOT DETECTE); Parainfluenza Virus 2 NOT DETECTED (NOT DETECTE); Parainfluenza Virus 3 NOT DETECTED (NOT DETECTE); Parainfluenza Virus 4 NOT DETECTED (NOT DETECTE); Respiratory Syncytial Virus NOT DETECTED (NOT DETECTE); SARS-CoV-2 NOT DETECTED (NOT DETECTE)
[2023-10-08] MEDS: ACETAMINOPHEN 500 MG TABLET 1000 MG PO (16:38)
== END 2023-10-08 17:02 | disposition home or self-care (01) ==
PROVIDERS: Physician Assistant; Emergency Provider Emergency Medicine; PCP Internal Medicine
DX: J44.1 Chronic obstructive pulmonary disease with (acute) exacerbation (principal); R06.02 Shortness of breath; Z79.51 Long term (current) use of inhaled steroids; Z79.4 Long term (current) use of insulin; Z79.85 Long-term (current) use of injectable non-insulin antidiabetic drugs; F17.210 Nicotine dependence, cigarettes, uncomplicated
CPT/HCPCS: 0202U; 36415; 71046; 80053; 83880; 84484; 85025; 85610; 93005; 94640; 96374; 99285; 99406; J2930

== ENCOUNTER 2023-10-30 14:34 | Emergency (ER) | payer MEDICARE, SELFPAY ==
[2023-10-30] VITALS (27 sets, daily range): BP systolic 93–124; BP diastolic 47–78; PULSE 91–106; RESP 13–29; TEMP 36.7; O2SAT 87–91; BMI 32.8
--- NOTE | 2023-10-30 14:47 | XR_ITS ---
The [address] [address] Patient Name: DIAN RAY MRN: [id number] date: 1975 Sex: F Assigned Patient Location: ER Current Patient Location: ED.MAIN Accession/Order Number: [id number] Exam Date: 10/30/2023 15:00 Report Date: 10/30/2023 15:38 At the request of: AMILCAR SANDERS Procedure: XR chest 1V EXAM: XR chest 1V CLINICAL INDICATION: SOB TECHNIQUE: Portable frontal semi-erect view of the chest. COMPARISON: 05/08/2023 FINDINGS: Lines and tubes: None. Lungs: No convincing focal infiltrates. No pleural effusion or pneumothorax. Heart: Stable enlargement of the cardiomediastinal silhouette. Mild bibasilar pulmonary vascular congestion. Osseous structures: No acute abnormalities. XR/XR chest 1V IMPRESSION: Borderline CHF. Electronically authenticated by: CHRISTIE PICKENS Date: 10/30/2023 15:38
--- NOTE | 2023-10-30 14:47 | ECG_ITS ---
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
--- NOTE | 2023-10-30 14:48 | ED.SOB1 ---
HPI - SOB/Dyspnea General Chief Complaint: Shortness of Breath/Dyspnea Stated Complaint: SHORTNESS OF BREATH Time Seen by Provider: 10/30/23 14:43 History of Present Illness HPI Narrative: 48-year-old female who has COPD presents for difficulty breathing for the past few days. She took 2 aerosol treatments at home and was given 1 by the paramedics. No fever or productive cough. She feels much more short of breath on exertion. No hemoptysis or complaints to me of chest pain. She smokes. Related Data Home Medications Medication Instructions Recorded Confirmed albuterol sulfate 90 mcg/actuation 2 puff inhalation Q4H PRN 03/07/23 10/30/23 aerosol inhaler shortness of breath or wheezing atorvastatin 40 mg tablet 40 mg PO DAILY 03/07/23 10/30/23 budesonide 160 mcg-glycopyr 9 1 inh inhalation BID 03/07/23 10/30/23 mcg-formot 4.8 mcg/actuation HFA inhaler (Breztri [employer]) dapagliflozin propanediol 10 mg 10 mg PO DAILY 03/07/23 10/30/23 tablet (Farxiga) dulaglutide 1.5 mg/0.5 mL 3 mg subcut QWEEK 03/07/23 10/30/23 subcutaneous pen injector (Rocket Raise) escitalopram oxalate 20 mg tablet 20 mg PO DAILY 03/07/23 10/30/23 gabapentin 800 mg tablet 800 mg PO TID 03/07/23 10/30/23 ibuprofen 800 mg tablet 800 mg PO TID 03/07/23 10/30/23 insulin aspart U-100 100 unit/mL 10 unit subcut TID 03/07/23 10/30/23 (3 mL) subcutaneous pen (Novolog FlexPen U-100 Insulin aspart) lamotrigine 150 mg tablet 150 mg PO BID 03/07/23 10/30/23 mirtazapine 30 mg tablet 30 mg PO BEDTIME 03/07/23 10/30/23 omeprazole 40 mg capsule,delayed 40 mg PO DAILY 03/07/23 10/30/23 release risperidone 1 mg tablet 1 mg PO BID 03/07/23 10/30/23 sitagliptin phos 100 mg-metformin 1 tab PO BEDTIME 03/07/23 10/30/23 ER 1,000 mg tablet,extend rel 24h mp (Janumet XR) tizanidine 4 mg tablet 4 mg PO TID PRN muscle spasticity 03/07/23 10/30/23 lorazepam 1 mg tablet (Ativan) 1 mg PO Q12H 05/08/23 10/30/23 Previous Rx's Medication Instructions Recorded methocarbamol 750 mg tablet 750 mg PO TID PRN pain #20 tabs 03/07/23 xltznvjufdubbeq-zbrmyruzygrovhi-SY 5 ml PO Q6H PRN sinus symptoms 05/09/23 2 mg-30 mg-10 mg/5 mL oral syrup #118 mL (Bromfed DM) nicotine (polacrilex) 4 mg gum 4 mg buccal Q8H PRN nicotine 05/09/23 (Nicorette) cravings #110 ea nicotine 21 mg/24 hr daily 1 patch transdermal Q24H #28 ea 05/09/23 transdermal patch (Nicoderm CQ) tramadol 50 mg tablet 50 mg PO Q4H PRN pain #15 tabs 06/17/23 azithromycin 250 mg tablet See Rx Instructions PO .COMPLEX #6 10/30/23 (Zithromax Z-Ankit) tabs prednisone 10 mg tablet See Rx Instructions .Route 10/30/23 .COMPLEX #30 tabs Allergies Allergy/AdvReac Type Severity Reaction Status Date / Time sumatriptan [From Imitrex] Allergy Severe Verified 05/08/23 19:35 Review of Systems ROS Narrative A ten point review of systems is negative except as noted above. PFS PFS Social History Smoking status: Current every day smoker Exam Narrative Exam Narrative: Nurses note and vital signs reviewed and patient is not hypoxic. General: The patient appears mildly dyspneic Skin: Warm, dry, no pallor noted. There is no rash noted. Head: Normocephalic, atraumatic Eye: Normal conjunctiva, no drainage Ears, Nose, Mouth, and Throat: oral mucosa is moist. Nares patent. Cardiovascular: Regular Rate and Rhythm Respiratory: Bilateral rhonchi throughout. Breath sounds are equal. Back: non-tender GI: Soft and nontender Musculoskeletal: The patient has no evidence of calf tenderness, no pitting edema, symmetrical pulses noted bilaterally Neurological: A&O, normal speech Psychiatric: Cooperative Constitutional Vital Signs, click to edit/add: Last Vital Signs Temp 98.1 F 10/30/23 14:45 Pulse 94 H 10/30/23 17:10 Resp 20 10/30/23 17:10 BP 115/68 10/30/23 17:00 Pulse Ox 89 L 10/30/23 17:10 O2 Del Method Room Air 10/30/23 15:25 Course Vital Signs Vital signs: Vital Signs Pulse Oximetry 89 L 10/30/23 14:38 Temperature 98.1 F 10/30/23 14:45 Pulse Rate 94 H 10/30/23 17:10 Respiratory Rate 20 10/30/23 17:10 Blood Pressure 115/68 10/30/23 17:00 Pulse Oximetry 89 L 10/30/23 17:10 Oxygen Delivery Method Room Air 10/30/23 15:25 MDM - SOB/Dyspnea MDM Narrative Medical decision making narrative: The patient was given IV Solu-Medrol and aerosol treatment. She feels much better now. She was offered admission to the hospital but does not feel that she needs it and will be discharged home. She states that she will return if symptoms worsen. She was prescribed Zithromax and prednisone. Treatment diagnosis and follow-up were discussed with the patient. I do not clinically suspect CHF. Differential Diagnosis Differential diagnosis: Likely acute exacerbation of chronic obstructive airways disease, congestive heart failure and community acquired pneumonia Lab Data Attestation: I reviewed the patient's lab results. Labs: Lab Results 10/30/23 10/30/23 Range/Units 14:52 16:21 WBC 11.3 H (4.0-11.0) 10^3/uL RBC 5.07 (4.20-5.40) 10^6/uL Hgb 16.4 H (12.0-16.0) g/dL Hct 50.3 H (36.0-48.0) % MCV 99.2 H (81.0-99.0) fL MCH 32.3 (26.7-34.0) pg MCHC 32.6 (29.9-35.2) g/dL RDW 15.4 H (11.0-15.0) % Plt Count 252 (150-450) 10^3/uL MPV 9.5 (9.5-13.5) fL Neut % (Auto) 84.2 H (43.0-75.0) % Lymph % (Auto) 9.6 L (20.5-60.0) % [place] % (Auto) 4.7 (1.7-12.0) % Eos % (Auto) 0.2 L (0.9-7.0) % Baso % (Auto) 0.3 (0.2-2.0) % Neut # (Auto) 9.5 H (1.4-6.5) 10^3/uL Lymph # (Auto) 1.1 L (1.2-3.8) 10^3/uL [place] # (Auto) 0.5 (0.3-0.8) 10^3/uL Eos # (Auto) 0.0 (0.0-0.7) 10^3/uL Baso # (Auto) 0.0 (0.0-0.1) 10^3/uL Abs Immat Gran (auto) 0.11 H (0.00-0.03) 10^3/uL Imm/Tot Granulo (auto) 1.0 H (0.0-0.5) % Sodium 138 (136-145) mmol/L Potassium 3.5 (3.5-5.1) mmol/L Chloride 102 (98-107) mmol/L Carbon Dioxide 27.7 (21.0-32.0) mmol/L Anion Gap 11.8 BUN 15.0 (7.0-18.0) mg/dL Creatinine 0.82 (0.55-1.02) mg/dL Est GFR ( Amer) >60 (>=60) Est GFR (Non-Af Amer) >60 (>=60) BUN/Creatinine Ratio 18.3 Glucose 139 H (74-106) mg/dL Calcium 8.9 (8.5-10.1) mg/dL Troponin I High Sens 18.3 18.5 (4.0-51.3) pg/mL NT-Pro-B Natriuret Pep 255.0 (<=450.0) pg/mL Influenza Type A Ag Negative Influenza Type B Ag Negative SARS-CoV-2 Ag (CV2AG) Negative (NEGATIVE) Imaging Data Chest x-ray: Radiologist's impression: ITS Impressions Chest X-Ray 10/30/23 14:47 IMPRESSION: Borderline CHF. Electronically authenticated by: CHRISTIE PICKENS Date: 10/30/2023 15:38 ECG Data Attestation: I personally reviewed and interpreted this ECG as follows: Discharge Plan Discharge Stand Alone Forms: Portal Instructions Chief Complaint: Shortness of Breath/Dyspnea Clinical Impression: Acute exacerbation of chronic obstructive pulmonary disease Patient Disposition: Home, Self-Care Time of Disposition Decision: 17:31 Condition: Good Mode of Transportation: Private Vehicle Prescriptions / Home Meds: New prednisone 10 mg tablet See Rx Instructions .ROUTE .COMPLEX Qty: 30 0RF Rx Instructions: 4 by mouth daily for three days then 3 by mouth daily for three days then 2 by mouth daily for three days then 1 by mouth daily for three days azithromycin [Zithromax Z-Ankit] 250 mg tablet See Rx Instructions .ROUTE .COMPLEX Qty: 6 0RF Rx Instructions: For 250 mg dose pack: take 500 mg today (day 1), then 250 mg for 4 days (days 2-5) No Action tramadol 50 mg tablet 50 mg PO Q4H PRN (Reason: pain) Qty: 15 0RF Rx Instructions: DX: M25.562 albuterol sulfate 90 mcg/actuation HFA aerosol inhaler 2 puff INHALATION Q4H PRN (Reason: shortness of breath or wheezing) atorvastatin 40 mg tablet 40 mg PO DAILY Breztri [employer] 160-9-4.8 mcg/actuation HFA aerosol inhaler 1 inh INHALATION BID dapagliflozin propanediol [Farxiga] 10 mg tablet 10 mg PO DAILY Trulicity 1.5 mg/0.5 mL pen injector 3 mg SUBCUT QWEEK escitalopram oxalate 20 mg tablet 20 mg PO DAILY gabapentin 800 mg tablet 800 mg PO TID ibuprofen 800 mg tablet 800 mg PO TID insulin aspart U-100 [Novolog FlexPen U-100 Insulin] 100 unit/mL (3 mL) insulin pen 10 unit SUBCUT TID Patient Comments: with sliding scale, max 50 units daily lamotrigine 150 mg tablet 150 mg PO BID mirtazapine 30 mg tablet 30 mg PO BEDTIME omeprazole 40 mg capsule,delayed release(DR/EC) 40 mg PO DAILY risperidone 1 mg tablet 1 mg PO BID Janumet XR 100-1,000 mg tablet, ER multiphase 24 hr 1 tab PO BEDTIME tizanidine 4 mg tablet 4 mg PO TID PRN (Reason: muscle spasticity) methocarbamol 750 mg tablet 750 mg PO TID PRN (Reason: pain) Qty: 20 0RF lorazepam [Ativan] 1 mg tablet 1 mg PO Q12H nicotine [Nicoderm CQ] 21 mg/24 hr patch 24 hour 1 patch transdermal Q24H Qty: 28 0RF nicotine (polacrilex) [Nicorette] 4 mg gum 4 mg buccal Q8H PRN (Reason: nicotine cravings) Qty: 110 0RF ysshxhgjddwbsve-psshrxrka-TZ [Bromfed DM] 2-30-10 mg/5 mL syrup 5 ml PO Q6H PRN (Reason: sinus symptoms) Qty: 118 0RF Instructions: COPD (Chronic Obstructive Pulmonary Disease) (ED) Additional Instructions: Return to emergency department for worsening symptoms Referrals: Shaikh Cruz MD [Primary Care Provider] - 1 week
--- OUTSIDE RECORDS SUMMARY | 2023-10-30 14:56 | XMS_ITS | CCD ---
Author Name Unknown Address [address] [place] [address] Organization [facility] Care Team Providers Care Feather Trimmer Name Role Phone Walker Alba Attending Provider Audi Hdez Primary Care Provider [phone] PROVIDER, UNKNOWN Admitting Unavailable PROVIDER, UNKNOWN Attending Unavailable PROVIDER, UNKNOWN Admitting Unavailable PROVIDER, UNKNOWN Attending Unavailable FAWWAD, STEPHENS H Admitting Unavailable FAWWAD, STEPHENS H Consulting Unavailable FAWWAD, STEPHENS H Attending Unavailable FAWWAD, STEPHENS H Primary Care Unavailable TONI, SHILPI Admitting Unavailable TONI, SHILPI Consulting Unavailable FAWWAD, STEPHENS H Primary Care Unavailable SHILPI MUÑOZ Attending Unavailable JUAN BARKER Consulting Unavailable FAWWAD, STEPHENS H Primary Care Unavailable SAM .STEPHANIE Admitting Unavailable MARCELA ., MR RAZA Consulting Unavailable STEPHANIE PATTERSON Attending Unavailable YASMIN HUERTAS Consulting Unavailable FAWWAD, STEPHENS H Primary Care Unavailable LIVIA, DR VICK Adams Consulting Unavailable LIVIA, DR VICK Adams Attending Unavailable DR VICK LEUNG Admitting Unavailable AMILCAR SANDERS Admitting Unavailable AMILCAR SANDERS Attending Unavailable BUD, DR GERMAINE Adams Consulting Unavailable FAWWAD, STEPHENS H Primary Care Unavailable AMILCAR SANDERS Consulting Unavailable SHILPI MUÑOZ Consulting Unavailable FAWWAD, STEPHENS H Admitting Unavailable FAWWAD, STEPHENS H Attending Unavailable FAWWAD, STEPHENS H Primary Care Unavailable PAY ., DR ZAPATA Attending Unavailable PAY ., DR ZAPATA Consulting Unavailable PAY ., DR ZAPATA Admitting Unavailable FAWWAD, STEPHENS H Primary Care Unavailable FAWWAD, STEPHENS H Admitting Unavailable FAWWAD, STEPHENS H Attending Unavailable FAWWAD, STEPHENS H Primary Care Unavailable FAWWAD, STEPHENS H Admitting Unavailable FAWWAD, STEPHENS H Attending Unavailable FAWWAD, STEPHENS H Primary Care Unavailable FAWWAD, STEPHENS H Admitting Unavailable FAWWAD, STEPHENS H Consulting Unavailable FAWWAD, STEPHENS H Attending Unavailable FAWWAD, STEPHENS H Primary Care Unavailable FAWWAD, STEPHENS H Consulting Unavailable FAWWAD, STEPHENS H Attending Unavailable FAWWAD, STEPHENS H Admitting Unavailable FAWWAD, STEPHENS H Primary Care Unavailable FAWWAD, STEPHENS H Admitting Unavailable FAWWAD, STEPHENS H Primary Care Unavailable FAWWAD, STEPHENS H Attending Unavailable FAWWAD, STEPHENS H Consulting Unavailable FAWWAD, STEPHENS H Primary Care Unavailable FAWWAD, STEPHENS H Admitting Unavailable FAWWAD, STEPHENS H Attending Unavailable BUD, DR GERMAINE Adams Consulting Unavailable FAWWAD, STEPHENS H Consulting Unavailable FAWWAD, STEPHENS H Primary Care Unavailable SANTIAGO, KERRI Admitting Unavailable ZIEBER, DR GERMAINE Adams Consulting Unavailable KREDOMITILA, KERRI Attending Unavailable JOSSGEL, KERRI Consulting Unavailable AMILCAR SANDERS Attending Unavailable FAWWAD, STEPHENS H Primary Care Unavailable ZIEBER, DR GERMAINE Adams Consulting Unavailable AMILCAR SANDERS Admitting Unavailable AMILCAR SANDERS Consulting Unavailable LIVIA, DR VICK Adams Consulting Unavailable LIVIA, DR VICK Adams Attending Unavailable LIVIA, DR VICK Adams Admitting Unavailable FAWWAD, STEPHENS H Primary Care Unavailable FAWWAD, STEPHENS H Primary Care Unavailable PAY ., DR ZAPATA Attending Unavailable BRAXTON, DR SHAJI Osborn Consulting Unavailable PAY ., DR ZAPATA Admitting Unavailable PAY ., DR ZAPATA Consulting Unavailable SAVITA .CHRISTIANE Consulting Unavailable FAWWAD, STEPHENS H Primary Care Unavailable JENNY, DR YASMIN Cortes Attending Unavailsanthosh ALVARADO, DR YASMIN Cortes Consulting Unavailsanthosh ALVARADO, DR YASMIN Cortes Admitting Unavailabl e BUD, DR GERMAINE Adams Consulting Unavailable Katie Alberto Unavailable Errol Nicole Unavailable MD Anthony [facility] Primary Care Provider DO Lavell Salazar Emergency Provider MD Eron Wood Admit Provider MD Errol Nicole Other Provider MD Valeriano Horta Other Provider DO Krunal Kelly Attending Provider [phone] MD Valeriano Horta Attending Provider Courtney Valladares Unavailable MD Anthony [facility] Primary Care Provider MD Valeriano Horta Attending Provider FAVIO Villeda Emergency Provider MD Anthony [facility] Primary Care Provider MD Yasmin Leung Emergency Provider SHANTI Marcum Emergency Provider MD Errol Nicole Attending Provider Bambi Delgado Unavailable Anthony MASTERS, [facility] Primary Care Provider Anthony MASTERS, [facility] Primary Care Provider MARVIN SHERWOOD Attending Unavailable AUDI HDEZ Referring Unavailable AUDI HDEZ Primary Care Unavailable Marilee Marcum Admitting Unavailable Marilee Marcum Attending [facility] Unavailable Corey, Kamal Admitting Unavailable Errol Nicole Attending [facility] Unavailable Valeriano Horta Admitting Unavailable Valeriano Horta Attending Unavailable [facility] Primary Care Unavailable Krunal Kelly Attending Unavailabl e Eron Wood Admitting Unavailable Charey, Kamal Consulting Unavailable [facility] Unavailable Valeriano Horta Consulting [facility]available [facility] Unavailable Elio Villeda Admitting Unavailable Elio Villeda Attending Unavailable Yasmin Leung Admitting Unavailable Yasmin Leung Attending Unavailable Shaikh Cruz Primary Care Unavailable NAOMI BERNARD Attending Unavailable SHAIKH CRUZ Attending Unavailable Allergies Allergy Classification Reported Allergen(s) Allergy Type Date of Onset Reaction(s) Facility Serotonin-1b and Serotonin-1d Receptor Agonists (4 sources) SUMAtriptan Drug Allergy 1 [facility] (1 source) Plasmin Drug Allergy 6 [facility] Repository (16 sources) SUMAtriptan Drug Allergy 3 shortness of breath, Anxiety [facility] (1 source) SUMAtriptan; Translations: [SUMATRIPTAN SUCCINATE] Drug Allergy 0 [facility] Repository (1 source) SUMAtriptan Drug Allergy 4 [facility] Repository Medications Current Medications Medication Drug Class(es) Dates Sig (Normalized) Sig (Original) [id number] 200 actuat albuterol 0.09 mg/actuat metered dose inhaler (20 sources) beta2-Adrenergic Agonist Start: 09-06-2023 End: 10-06-2023 take 2 puff(s) by inhalation every four hours for wheezing albuterol HFA 90 mcg/act inhaler Indications: Acute bronchitis due to other specified organisms Inhale 2 puffs every 4 (four) hours if needed for wheezing or shortness of breath 6.7 g 1 09/06/2023 10/06/2023 Active Start: 06-20-2023 take 2 puff(s) by in halation every four to six hours as needed Albuterol Sulfate HFA 108 (90 Base) MCG/ACT 2 puffs as needed Inhalation every 4-6 hours Jun, Active Start: 06-20-2023 take 2 puff(s) by in halation every four to six hours as needed Albuterol Sulfate HFA 108 (90 Base) MCG/ACT 2 puffs as needed Inhalation every 4-6 hours for 14 days Jun, Active Start: 10-31-2020 Albuterol Sulf ate (Ventolin Hfa) 90 mcg/actuation HFA aerosol inhaler Active 1 - 2 INH INHALATION EVERY 4-6 HOURS October 30, 2020 11:00pm albuterol (2.5 M G/3ML) 0.083% nebulizer solution Take by nebulization every 4 (four) hours if needed for wheezing. 0 Active Albuterol Sulfat e (2.5 MG/3ML) 0.083% 1 unit dose Inhalation four times a day DX J44.9 COPD Active Albuterol Sulfat e (2.5 MG/3ML) 0.083% 1 unit dose Inhalation four times a day DX J44.9 COPD Active take 1 puff(s) by in halation every four hours as needed Albuterol Sulfate HFA 108 (90 Base) MCG/ACT 1 puff as needed Inhalation every 4 hrs Active atorvastatin 40 mg oral tablet (16 sources) HMG-CoA Reductase Inhibitor Start: 03-10-2023 take 40 mg by mouth once daily Atorvastatin Active 40 MG PO Daily March 09, 2023 11:00pm 120 actuat budesonide 0.16 mg/actuat / formoterol fumarate 0.0048 mg/actuat / glycopyrrolate 0.009 mg/actuat metered dose inhaler (14 sources) Corticosteroid, beta2-Adrenergi c Agonist Start: 03-10-2023 take 1 puff(s) by inhalation once daily Budesonide-Glycopy r-Formoterol (Breztri Aerosphere) 160-9-4.8 mcg/actuation HFA aerosol inhaler Active 1 PUFF INHALATION Daily March 09, 2023 11:00pm Budeson-Glycopyr rol-Formoterol (Breztri Aerosphere) 160-9-4.8 MCG/ACT aerosol Inhale. 0 Active take 2 puff(s) by in halation twice daily Breztri Aerosphere 160-9-4.8 MCG/ACT 2 p uffs Inhalation Twice a day Active Continuous Blood Gluc Oven Heater Helper (FreeStyle Magali 14 Day [place]) device (4 sources) Continuous Blood Gluc Oven Heater Helper (FreeStyle Magali 14 Day [place]) device 4 (four) times a day as needed. 0 Active Continuous Blood Gluc Sensor (FreeStyle Magali 14 Day Sensor) misc (4 sources) Continuous Blood Gluc Sensor (FreeStyle Magali 14 Day Sensor) misc 4 (four) times a day as needed. 0 Active dapagliflozin 10 mg oral tablet (16 sources) Sodium-Glucose Cotransporter 2 Inhibitor Start: 2022 take 1 tablet by mouth once daily Farxiga 10 MG Indications: Type 2 diabetes mellitus with diabetic polyneuropathy, with long-term current use of insulin (CMS/HCC) TAKE 1 TABLET BY MOUTH EVERY DAY 90 tablet 0 08/10/2023 Active dextromethorphan hydrobromide 1.5 mg/ml / pyrilamine maleate 1.5 mg/ml oral solution (4 sources) Uncompetitive V-jjllkt-P-aspartate Receptor Antagonist, Sigma-1 Agonist Start: 2022 take 10 mL by mouth every eight hours [place] DM 7.5-7.5 MG/5ML 10 mL Orally every 8 hours for 5 days Jun, Active doxycycline hyclate 100 mg oral tablet (6 sources) Tetracycline-class Drug Start: 2022 take 100 mg by mouth twice daily Doxycycline Hyclate Active 100 MG PO Twice daily 04 06August 06, 2023 12:00am 0.5 ml dulaglutide 3 mg/ml auto-injector (4 sources) GLP-1 Receptor Agonist inject 1.5 mg by subcutaneous injection every week dulaglutide (Trulicity) 1.5 MG/0.5ML solution pen-injector Inject 1.5 mg under the skin 1 (one) time per week. 0 Active escitalopram 20 mg oral tablet (12 sources) Serotonin Reuptake Inhibitor Start: 2022 take 1 tablet by mouth once daily Escitalopram Oxalate (Lexapro) 20 mg tablet Active 20 MG PO Daily March 09, 2023 11:00pm fluconazole 100 mg oral tablet (2 sources) Azole Antifungal Start: 2023 End: 2023 take 1 tablet by mouth in the morning fluconazole (Diflucan) 100 MG tablet Indications: Thrush Take 1 tablet (100 mg) by mouth in the morning for 14 days. 14 tablet 0 09/29/2023 10/13/2023 Active Furosemide (2 sources) Loop Diuretic Furosemide *prakash riggs review for potential _update for e-prescription and drug interaction check* Active gabapentin 800 mg oral tablet (20 sources) Anti-epileptic Agent Start: 2023 take 1 tablet by mouth three times daily gabapentin (Neurontin) 800 MG tablet Indications: Type 2 diabetes mellitus with diabetic polyneuropathy, with long-term current use of insulin ([facility]) TAKE 1 TABLET BY MOUTH THREE TIMES A DAY 90 tablet 0 09/06/2023 Active Start: 03-10-2023 take 800 mg by mouth three times daily Gabapentin Active 800 MG PO Three times daily March 09, 2023 11:00pm Start: 03-10-2023 End: 03-10-2023 take 300 mg by mouth once daily at bedtime Gabapentin Discontinued 300 MG PO Daily at bedtime March 09, 2023 11:00pm March 10, 2023 5:04pm take 1 capsule by mo [facility] every eight hours Gabapentin 300 MG 1 tablet Orally three times a day Active take 1 tablet by sandro th every twenty-four hours Gabapentin 800 MG 1 tablet Orally Once a day Active Glucose Blood (ACCU-CHEK LAURO PLUS ) (4 sources) Glucose Blood (ACCU-CHEK LAURO PLUS ) by In Vitro route. 0 Active Glucose Blood (BLOOD GLUCOSE TEST ) (4 sources) Glucose Blood (BLOOD GLUCOSE TEST ) 3 (three) times a day. 0 Active 12 hr guaiFENesin 600 mg extended release oral tablet (4 sources) take 1 tablet by mouth in the morning, then take 1 tablet by mouth every twelve hours at bedtime guaiFENesin (Mucinex) 600 MG 12 hr tablet Take 1,200 mg by mouth in the morning and 1,200 mg before bedtime. Do not crush, chew, or split. . 0 Active ibuprofen 800 mg oral tablet (18 sources) Nonsteroidal Anti-inflammatory Drug Start: take 1 tablet by mouth three times daily ibuprofen 800 MG tablet Indications: Chronic pain syndrome TAKE 1 TABLET BY MOUTH THREE TIMES A DAY 90 tablet 0 09/29/2023 Active Start: 10-31-2020 take 1 tablet by sandro th three times daily ibuprofen 800 MG tablet Indications: Chronic pain syndrome TAKE 1 TABLET BY MOUTH THREE TIMES A DAY 90 tablet 0 08/23/2023 Active Insulin Aspart U-100 (Novolog Flexpen U-100 Insulin) 100 unit/mL (3 mL) Insulin Pen (10 sources) Start: 10-31-2020 inject 1 [IU] by subcutaneous injection at bedtime Insulin Aspart U-100 (Novolog Flexpen U-100 Insulin) 100 unit/mL (3 mL) Insulin Pen Active 1 UNIT SUBCUT Before meals and at bedtime October 31, 2020 1:47pm sliding scale only Start: 10-31-2020 inject 1 [IU] by sub cutaneous injection at bedtime Insulin Aspart U-100 (Novolog Flexpen U-100 Insulin) 100 unit/mL (3 mL) Insulin Pen Active 1 UNIT SUBCUT Before meals and at bedtime October 30, 2020 11:00pm sliding scale only Start: 10-31-2020 inject 1 [IU] by sub cutaneous injection at bedtime Insulin Aspart U-100 (Novolog Flexpen U-100 Insulin) 100 unit/mL (3 mL) Insulin Pen Active 1 UNIT SUBCUT Before meals and at bedtime October 31, 2020 12:00am sliding scale only 3 ml insulin aspart, human 1 00 unt/ml pen injector (10 sources) Insulin Analog insulin aspart ( NovoLOG FLEXPEN) 100 UNIT/ML pen Inject 10 Units under the skin in the morning and 10 Units at noon and 10 Units in the evening. Inject before meals. 10 units plus sliding scale TID with meals. Max daily use 50 units per day.. 0 Active NovoLOG 100 UNIT /ML Subcutaneous Active NovoLOG 100 UNIT /ML Subcutaneous Active 3 ml insulin glargine 100 unt/ml pen injector (20 sources) Insulin Analog Start: 08-03-2023 End: 11-01-2023 insulin glargine (Basaglar KwikPen) 100 UNIT/ML pen Indications: Type 2 diabetes mellitus with diabetic polyneuropathy, with long-term current use of insulin ([facility]) Inject 20 Units under the skin in the morning. 18 mL 0 08/03/2023 11/01/2023 Active Start: 03-10-2023 Insulin Glargi ne (Basaglar Kwikpen U-100 Insulin) 100 unit/mL (3 mL) Insulin Pen Active 20 UNIT SUBCUT Every evening March 09, 2023 11:00pm Start: 10-31-2020 End: 03-10-2023 Insulin Glargine (Lantus Adriane ostar U-100 Insulin) 100 unit/mL (3 mL) insulin pen Discontinued 50 UNIT SUBCUT Twice daily October 30, 2020 11:00pm March 10, 2023 2:28pm lamoTRIgine 150 mg oral tablet (20 sources) Mood Stabilizer, Anti-epileptic Agent Start: 10-31-2020 take 1 tablet by mouth twice daily Lamotrigine (Lamictal) 150 mg tablet Active 150 MG PO Twice daily October 30, 2020 11:00pm take 1 tablet by sandro th every twenty-four hours LaMICtal 150 MG 1 tablet Orally Once a day Active LaMICtal *please review for potential _update for e-prescription and drug interaction check* Active Lantus for OptiClik 100 UNIT/ML (2 sources) Lantus for OptiC lik 100 UNIT/ML inject by subcutaneous route as per insulin protocol Subcutaneous *please review for potential _update for e-prescription and drug interaction check* (Michael-) Active lisinopril 10 mg oral tablet (2 sources) Angiotensin Converting Enzyme Inhibitor take 1 tablet by mouth every twenty-four hours Lisinopril 10 MG 1 tablet Orally Once a day Active LORazepam 1 mg oral tablet (14 sources) Benzodiazepine Start: 023 take 1 mg by mouth twice daily Lorazepam Active 1 MG PO Twice daily July 05, 2023 12:00am 24 hr metFORMIN hydrochloride 1000 mg / SITagliptin 100 mg extended release oral tablet (16 sources) Biguanide, Dipeptidyl Peptidase 4 Inhibitor Start: 023 take 1 tablet by mouth once daily at bedtime Sitagliptin Phos-Metformin (Janumet Xr) 100-1,000 mg tablet, ER multiphase 24 hr Active 1 TAB PO Daily at bedtime March 09, 2023 11:00pm take 1 tablet by sandro th every twenty-four hours at mealtime SITagliptin-metFORMIN ER (Janumet XR) 10 0-1000 MG per 24 hr tablet Take 1 tablet by mouth in the morning. Take with meals. 0 Active 24 hr NIFEdipine 90 mg extended release oral tablet (2 sources) Dihydropyridine Calcium Channel Daniela take 1 tablet by mouth every twenty-four hours NIFEdipine ER 90 MG 1 tablet Orally Once a day Active nystatin [id number] unt/ml oral suspension (2 sources) Polyene Antifungal Start : 09-29 End: 10-09 nystatin (Mycostatin) 125797 UNIT/ML suspension Indications: Thrush Take 5 mL (500,000 Units) by mouth in the morning and 5 mL (500,000 Units) at noon and 5 mL (500,000 Units) in the evening and 5 mL (500,000 Units) before bedtime. Do all this for 10 days. 200 mL 0 09/29/2023 10/09/2023 Active omeprazole 40 mg delayed release oral capsule (18 sources) Proton Pump Inhibitor Start : 10-31 take 1 capsule by mouth once daily omeprazole (PriLOSEC) [address] capsule Indications: Gastroesophageal reflux disease without esophagitis TAKE 1 CAPSULE BY MOUTH EVERY DAY 90 capsule 0 07/20/2023 Active microencapsulated potassium chloride 20 meq extended release oral tablet (2 sources) take 1 tablet by mouth every twelve hours Klor-Con M20 20 MEQ 1 tablet Orally Twice a day Active predniSONE 10 mg oral tablet (11 sources) Start : 09-21 predniSONE 10 MG 4 tabs x 3 days, 2 tabs x 3 days, 1 tab x 3 days, then stop. Orally Once a day Sep, Active Start: 08-06-2023 take 40 mg by mouth once daily Prednisone Active 40 MG PO Daily 6 August 06, 2023 12:00am Start: 07-17-2023 Prednisone Act keyur 0 MG .ROUTE .COMPLEX July 17, 2023 12:00am 6 tabs for 3 days 4 tabs for 3 days 2 tabs for 3 days 1 tabs for 3 days Start: 07-05-2023 Prednisone Act keyur 0 .ROUTE .COMPLEX 18 July 05, 2023 12:00am 3 tabs a day for 3 days, 2 tabs a day for 3 days, 1 tab a day for 3 days Start: 06-20-2023 take 1 tablet by sandro th every twelve hours prednisone 20 MG 1 tablet Orally BID for 5 Jun, Active risperiDONE 3 mg oral tablet (18 sources) Atypical Antipsychotic Start: 10-31-2020 take 1 mg by mouth twice daily Risperidone (Risperdal) 3 mg tablet Active 1 MG PO Twice daily October 30, 2020 11:00pm take 1 tablet by sandro th every twenty-four hours risperiDONE 2 MG 1 tablet Orally Once a day Active RisperDAL *val sagastume review for potential _update for e-prescription and drug interaction check* Not-Taking Spiriva HandiHaler (2 sources) Spiriva HandiHal er *please review for potential _update for e-prescription and drug interaction check* Active tiZANidine 4 mg oral tablet (18 sources) Central alpha-2 Adrenergic Agonist Start: take 1 tablet by mouth three times daily as needed tiZANidine (Zanaflex) 4 MG tablet Indications: Neck pain TAKE 1 TABLET BY MOUTH THREE TIMES A DAY NEEDED 270 tablet 0 09/06/2023 Active Start: 10-31-2020 take 8 mg by mouth e very eight hours Tizanidine Active 8 MG PO Q8H October 30, 2020 11:00pm Completed/Discontinued Medications Medication Drug Class(es) Dates Sig (Normalized) Sig (Original) acetaminophen 325 mg / HYDROcodone bitartrate 5 mg oral tablet (6 sources) Opioid Agonist Start: 03-14-2023 End: 07-05-2023 take 1 tablet by mouth every four hours Hydrocodone-Acetam inophen Discontinued 1 TAB PO Q4H 02 01March 14, 2023 July 05, 2023 1:57pm Albuterol / Ipratropium (2 sources) Anticholinergic, beta2-Adrenergic Agonist Ipratropium-[place] rol *please review for potential _update for e-prescription and drug interaction check* Not-Taking amoxicillin 875 mg / clavulanate 125 mg oral tablet (6 sources) Penicillin-class Antibacterial Start: 03-14-2023 End: 07-05-2023 take 1 tablet by mouth every twelve hours Amoxicillin-Pot Clavulanate Discontinued 1 TAB PO Q12H 84 March 13, 2023 11:00pm July 05, 2023 1:57pm Budesonide / formoterol (2 sources) Corticosteroid, beta2-Adrenergic Agonist Symbicort *please review for potential _update for e-prescription and drug interaction check* Not-Taking buprenorphine 8 mg / naloxone 2 mg sublingual film (18 sources) Partial Opioid Agonist, Opioid Antagonist Start: 03-31-2021 End: 03-10-2023 Buprenorphine-Nalo xone (Suboxone) 8-2 mg Film Discontinued 2 FILM BUCCAL Daily March 30, 2021 11:00pm March 10, 2023 2:28pm Start: 10-31-2020 End: 03-31-2021 Buprenorphine-Naloxone (Subo xone) 8-2 mg film Discontinued 2 FILM SUBLINGUAL Every morning October 30, 2020 11:00pm March 30, 2021 11:58pm Suboxone *please review for potential _update for e-prescription and drug interaction check* Not-Taking cyclobenzaprine hydrochloride 10 mg oral tablet (8 sources) Muscle Relaxant Start: 03-31-2021 End: 03-10-2023 take 10 mg by mouth three times daily Cyclobenzaprine Discontinued 10 MG PO Three times daily March 30, 2021 11:00pm March 10, 2023 2:28pm hydrOXYzine hydrochloride 25 mg oral tablet (10 sources) Antihistamine Start: 10-31-2020 End: 03-10-2023 take 25 mg by mouth four times daily Hydroxyzine Hcl Discontinued 25 MG PO Four times daily October 30, 2020 11:00pm March 10, 2023 2:28pm levoFLOXacin 750 mg oral tablet (6 sources) Quinolone Antimicrobial Start: 03-10-2023 End: 07-05-2023 Levofloxacin Discontinued MG TABLET March 09, 2023 11:00pm July 05, 2023 1:57pm simvastatin 20 mg oral tablet (10 sources) HMG-CoA Reductase Inhibitor Start: 10-31-2020 End: 03-10-2023 take 20 mg by mouth once daily at bedtime Simvastatin Discontinued 20 MG PO Daily at bedtime October 30, 2020 11:00pm March 10, 2023 2:27pm spironolactone 50 mg oral tablet (10 sources) Aldosterone Antagonist Start: 10-31-2020 End: 03-10-2023 take 50 mg by mouth once daily in the morning Spironolactone Discontinued 50 MG PO Every morning October 30, 2020 11:00pm March 10, 2023 2:27pm 60 actuat tiotropium 0.0025 mg/actuat inhalation spray (10 sources) Anticholinergic Start: 10-31-2020 End: 03-10-2023 take 2.5 ug by inhalation twice daily Tiotropium [place] (Spiriva Respimat) 2.5 mcg/actuation mist Discontinued 1 INH INHALATION Twice daily October 30, 2020 11:00pm March 10, 2023 2:27pm traZODone hydrochloride 50 mg oral tablet (12 sources) Serotonin Reuptake Inhibitor Start: 10-31-2020 End: 07-05-2023 take 50 mg by mouth once daily at bedtime Trazodone Discontinued 50 MG PO Daily at bedtime October 30, 2020 11:00pm July 05, 2023 1:57pm venlafaxine 75 mg oral tablet (14 sources) Serotonin and Norepinephrine Reuptake Inhibitor Start: 10-31-2020 End: 03-10-2023 take 75 mg by mouth once daily in the morning Venlafaxine Discontinued 75 MG PO Every morning October 30, 2020 11:00pm March 10, 2023 2:27pm take 1 tablet by sandro th every twelve hours Venlafaxine HCl 75 MG 1 tablet with food Orally Twice a day Active Effexor *please review for potential _update for e-prescription and drug interaction check* Not-Taking Problems Active Problems Problem Classification Problem Date Documented Date Episodic/Chronic Abdominal pain (7 sources) Pain in pelvis; Translations: [Pelvic and perineal pain] Onset: 09-06-2023 09-06-2023 Episodic Acute bronchitis (1 source) Acute bronchitis due to other specified organisms Episodic Alcohol-related disorders (1 source) Alcohol abuse with intoxication, unspecified; Translations: [ALCOHOL ABUSE WITH INTOXICATION UNS] Onset: 01-05-2022 Chronic Anxiety disorders (5 sources) Anxiety; Translations: [Anxiety disorder, unspecified] Onset: 09-06-2023 09-06-2023 Chronic Bacterial infection; unspecified site (1 source) Personal history of Methicillin resistant Staphylococcus aureus infection; Translations: [PERS HX METHICILLIN RSIST STAPH INF] Onset: 09-15-2022 Episodic Chronic obstructive pulmonary disease and bronchiectasis (20 sources) Chronic obstructive pulmonary disease, unspecified; Translations: [Chronic obstructive pulmonary disease with (acute) exacerbation] Onset: 04-28-2022 Chronic Diabetes mellitus with complications (5 sources) Type 2 diabetes mellitus with hypoglycemia without coma; Translations: [TYP 2 DM W/HYPOGLYCEMIA W/O COMA] Onset: 03-04-2022 Chronic Diabetes mellitus without complication (18 sources) Type 2 diabetes mellitus without complications; Translations: [Type 2 diabetes mellitus] Onset: 07-28-2022 Chronic Disorders of lipid metabolism (6 sources) Hyperlipidemia, unspecified; Translations: [Pure hypercholesterolemia, unspecified] Onset: 12-24-2021 Chronic Essential hypertension (5 sources) Essential (primary) hypertension; Translations: [Hypertensive disorder] Onset: 09-15-2022 09-06-2023 Chronic Fluid and electrolyte disorders (6 sources) Hypokalemia; Translations: [Hypokalemia] 03-31-2021 Episodic Headache; including migraine (4 sources) Migraine, unspecified, not intractable, without status migrainosus; Translations: [MIGRAINE UNS NOT INTRACT W/O SM] Onset: 03-20-2022 Chronic Headache; including migraine (1 source) Headache; including migraine; Translations: [HEADACHE UNSPECIFIED] Onset: 03-04-2022 Mood disorders (8 sources) Bipolar disorder, unspecified; Translations: [Other bipolar disorder] Onset: 02-26-2022 09-06-2023 Chronic Mood disorders (1 source) Mood disorders; Translations: [DEPRESSION UNSPECIFIED] Onset: 03-04-2022 Mycoses (2 sources) Candidiasis of mouth; Translations: [Candidal stomatitis] 09-29-2023 Episodic Other aftercare (1 source) [facility] (current) use of insulin; Translations: [SNAILER CURRENT USE OF INSULIN] Onset: 09-15-2022 Episodic Other aftercare (1 source) 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; Translations: [OTH [facility] CURRENT DRUG THERAPY] Onset: 09-15-2022 Episodic Other endocrine disorders (10 sources) Hypoglycemia; Translations: [Hypoglycemia, unspecified] Onset: 01-10-2020 03-31-2021 Chronic Other lower respiratory disease (5 sources) Shortness of breath; Translations: [SHORTNESS OF BREATH] Onset: 07-28-2022 Episodic Other lower respiratory disease (1 source) Personal history of pneumonia (recurrent); Translations: [PERSONAL HX OF PNEUMONIA RECURRENT] Onset: 09-15-2022 Episodic Other lower respiratory disease (6 sources) Abscess of lung; Translations: [Abscess of lung without pneumonia] 03-10-2023 Episodic Other lower respiratory disease (6 sources) Lung mass; Translations: [Other nonspecific abnormal finding of lung field] 03-11-2023 Episodic Other lower respiratory disease (2 sources) Abscess of lung without pneumonia; Translations: [Abscess of lung] 03-14-2023 Episodic Other lower respiratory disease (1 source) Shortness of breath; Translations: [Shortness of breath] Onset: 08-06-2023 Episodic Other nervous system disorders (4 sources) H/O: migraine; Translations: [Personal history of other diseases of the nervous system and sense organs] Onset: 09-06-2023 09-06-2023 Episodic Other upper respiratory disease (2 sources) Chronic laryngitis; Translations: [Chronic laryngitis] 09-29-2023 Chronic Other upper respiratory disease (5 sources) Hoarse; Translations: [Dysphonia] 09-29-2023 Episodic Other upper respiratory disease (1 source) Dysphonia Episodic Other upper respiratory infections (5 sources) Acute upper respiratory infection, unspecified; Translations: [Acute pharyngitis, unspecified] Onset: 03-31-2022 Episodic Residual codes; unclassified (4 sources) Insomnia; Translations: [Other insomnia] Onset: 11-05-2022 09-06-2023 Chronic Residual codes; unclassified (1 source) Other insomnia; Translations: [Other insomnia] Onset: 05-27-2023 Chronic Residual codes; unclassified (1 source) Acquired absence of both cervix and uterus; Translations: [ACQUIRED ABSENCE BOTH CERVIX AND UTERUS] Onset: 09-15-2022 Episodic Residual codes; unclassified (1 source) Acquired absence of other specified parts of digestive tract; Translations: [ACQ ABSENCE OTH PART DIGESTV TRACT] Onset: 09-15-2022 Episodic Residual codes; unclassified (1 source) Procedure and treatment not carried out because of patient's decision for other reasons; Translations: [PROC AND TX NOT CARRIED OUT PT OTH RSN] Onset: 09-15-2022 Episodic Residual codes; unclassified (6 sources) Tobacco user; Translations: [Tobacco use] 03-11-2023 Episodic Spondylosis; intervertebral disc disorders; other back problems (7 sources) Neck pain; Translations: [Cervicalgia] Onset: 09-06-2023 09-06-2023 Episodic Substance-related disorders (11 sources) Nicotine dependence, cigarettes, uncomplicated; Translations: [Opioid abuse, uncomplicated] Onset: 02-26-2022 Chronic Unclassified (1 source) CONTACT W/AND (SUSP) EXPOS COVID-19; Translations: [CONTACT W/AND (SUSP) EXPOS COVID-19] Onset: 04-28-2022 Unclassified (2 sources) COUGH, UNSPECIFIED; Translations: [COUGH, UNSPECIFIED] Onset: 03-31-2022 Unclassified (1 source) LOW BACK PAIN, UNSPECIFIED; Translations: [LOW BACK PAIN, UNSPECIFIED] Onset: 01-02-2022 Unclassified (1 source) Abscess of lung with pneumonia; Translations: [Abscess of lung with pneumonia] Onset: 08-30-2023 Unclassified (1 source) Abscess of lung without pneumonia; Translations: [Abscess of lung without pneumonia] Onset: 04-09-2023 Past or Other Problems Problem Classification Problem Date Documented Date Episodic/Chronic Aspiration pneumonitis; food/vomitus (7 sources) Aspiration pneumonia; Translations: [Pneumonitis due to inhalation of food and vomit] Onset: 03-10-2023 03-14-2023 Episodic Conditions associated with dizziness or vertigo (4 sources) Dizziness and giddiness; Translations: [DIZZINESS AND GIDDINESS] Onset: 03-03-2022 Episodic E Codes: Adverse effects of medical drugs (1 source) Adverse effect of tetracyclic antidepressants, initial encounter; Translations: [ADVRS EFF TETRACYCLIC AD INIT ENC] Onset: 03-04-2022 Episodic Malaise and fatigue (1 source) Weakness; Translations: [WEAKNESS] Onset: 03-04-2022 Episodic Other connective tissue disease (1 source) Abnormal posture; Translations: [ABNORMAL POSTURE] Onset: 01-02-2022 Episodic Other connective tissue disease (4 sources) Non-traumatic rhabdomyolysis; Translations: [Rhabdomyolysis] Onset: 01-10-2020 09-06-2023 Episodic Other lower respiratory disease (4 sources) Other nonspecific abnormal finding of lung field; Translations: [Swelling, mass, or lump in chest] Onset: 07-28-2022 03-14-2023 Episodic Other nervous system disorders (1 source) Unspecified abnormalities of gait and mobility; Translations: [UNS ABNORMALITIES GAIT AND MOBILITY] Onset: 01-02-2022 Episodic Other nervous system disorders (1 source) Other abnormalities of gait and mobility; Translations: [OTHER ABNORMALITIES GAIT AND MOBILITY] Onset: 01-02-2022 Episodic Other non-traumatic joint disorders (4 sources) Pain in right hip; Translations: [PAIN IN RIGHT HIP] Onset: 04-09-2022 Episodic Pneumonia (except that caused by tuberculosis or sexually transmitted disease) (20 sources) Abscess of lung with pneumonia ; Translations: [Abscess of lung with pneumonia] Onset: 03-10-2023 03-10-2023 Episodic Residual codes; unclassified (1 source) Insomnia, unspecified; Translations: [INSOMNIA UNSPECIFIED] Onset: 03-04-2022 Episodic Residual codes; unclassified (3 sources) Tobacco use; Translations: [Tobacco use disorder] Onset: 03-10-2023 03-14-2023 Episodic Unclassified (1 source) COUGH, UNSPECIFIED; Translations: [COUGH, UNSPECIFIED] Onset: 03-29-2022 Results Test Name Value Interpretation Reference Range Facility CT chest wo con 08-30-2023 CT chest wo con [facility] [address] CT Scan Report Signed Patient: Christiane Perez MR#: [id number] 2 : 1975 Acct:[id number] Age/Sex: 48 / F ADM Date: 08/30/23 Loc: CT Room: Type: [facility] Attending Dr: Errol Nicole MD Copies to: Errol Nicole MD Ordering Provider: Errol Nicole MD Date of Service: 08/30/23 CT/CT chest wo con: J85.1 CT CHEST WITHOUT IV CONTRAST: CLINICAL HISTORY: Lung abscess with pneumonia. COMPARISON: CT chest 04/09/2023 TECHNIQUE: Spiral images were obtained through the chest without IV contrast. This CT exam was performed using one or more following dose reduction techniques: Automated exposure control, adjustment of the mA and/or kV according to patient size, or use of iterative reconstruction technique. FINDINGS: Mediastinum:Thoracic aorta appears normal in caliber. Pulmonary trunk appears nondilated. No pericardial effusion or lymphadenopathy. The esophagus is grossly unremarkable. Lungs:Scattered areas of lung scarring. The residual consolidation involving the left upper lobe has resolved with residual scarring and subtle tree-in-bud groundglass nodularity present. Additional subtle tree-in-bud nodularity is seen throughout both lungs. No pneumothorax. No pleural effusion. Trachea and distal airways appear patent. Abd:No acute findings. Soft tissues/Bones: Soft tissues surrounding the chest wall demonstrate no acute findings. Osseous structures demonstrate degenerative change. CT/CT chest wo con IMPRESSION: The residual consolidation seen within the left upper lobe on the prior study has resolved with scattered areas of bilateral lung scarring as well as subtle groundglass tree-in-bud nodularity. Finding suggests response to therapy. Repeat CT is recommended to ensure complete resolution. Impression dictated by: Rodger Johnson Jr., D.O.08/30/2023 3:21 PM Dictation Location: [place] [address] Transcribed By: [facility] 08/30/23 1521 Dictated By: Rodger Johnson Jr, DO 08/30/23 1517 Signed By: 08/30/23 1521 Normal [facility] Activated partial thrombopla stin time (aPTT) in platelet poor plasma by coagulation aOrdered By: Marilee Marcum on 08-06-2023 aPTT Coag (PPP) [Time] 32.3 s 25.1-36.5 [facility] Comment on above: A hematocrit value g reater than 55% may lead to inaccurate results in coagulation testing. Patients having hematocrit values >55% require a special collection tube for coagulation studies. Please contact the laboratory at [phone] for redraw instructions. B-Type Natriuretic Peptideon 08-06-2023 Natriuretic peptide B (Bld) [Mass/Vol] 29.0 pg/mL Normal 5-100 [facility] Comment on above: Result Comment: PERF ORMED BY: [place] [address] PATHOLOGIST MACHINE HAND WAYNE WAKEFIELD M.D. Performed By: #### V ANCT #### [address] Basic Metabolic Panelon 2 Anion gap [Moles/Vol] 9.8 mmol/L Normal 6.0-15.0 [facility] Comment on above: Performed By: #### V ANCT #### [facility] [address] [place] [address] [place] Calcium [Mass/Vol] 8.6 mg/dL Normal 8.6-10.3 [facility] Comment on above: Performed By: #### V ANCT #### [place] [address] [place] Chloride [Moles/Vol] 106 mmol/L Normal 98-107 [facility] Comment on above: Performed By: #### V ANCT #### [facility] [address] [place] [address] [place] CO2 [Moles/Vol] 24.9 mmol/L Normal 21.0-31.0 [facility] Comment on above: Performed By: #### V ANCT #### [facility] [address] Creatinine [Mass/Vol] 0.72 mg/dL Normal 0.60-1.20 [facility] Comment on above: Performed By: #### V ANCT #### [place] [address] [place] Creatinine Clr Calc Pharmacy 116.58 Normal [facility] Comment on above: Result Comment: PERF ORMED BY: [place] [address] PATHOLOGIST MACHINE HAND WAYNE WAKEFIELD M.D. Performed By: #### V ANCT #### [place] [address] [place] GFR/1.73 sq M.predicted MDRD (S/P/Bld) [Vol rate/Area] mL/min/{1.73_m2} Normal [facility] Comment on above: Performed By: #### V ANCT #### [address] Glucose [Mass/Vol] 99 mg/dL Normal 70-100 [facility] Comment on above: Result Comment: [place] Glucose Reference Range is dependent on time and content of last meal. Glucose of more than 200 mg/dL in a nonstressed, ambulatory subject supports the diagnosis of Diabetes Mellitus. ADA recommended reference range Performed By: #### V ANCT #### [place] [address] [place] Potassium [Moles/Vol] 3.7 mmol/L Normal 3.5-5.1 [facility] Comment on above: Performed By: #### V ANCT #### [place] [address] [place] Sodium [Moles/Vol] 137 mmol/L Normal 136-145 [facility] Comment on above: Performed By: #### V ANCT #### [facility] [address] Urea nitrogen [Mass/Vol] 8 mg/dL Normal 7-25 [facility] Comment on above: Performed By: #### V ANCT #### [facility] [address] Basophils Auto (Bld) [#/Vol] Ordered By: Marilee Marcum on 08-06-2023 Basophils (Bld) [#/Vol] 0.1 10*3/uL 0.0-0.2 [facility] Basophils/100 WBC Auto (Bld) Ordered By: Marilee Marcum on 08-06-2023 Basophils/100 WBC (Bld) 0.5 % . [facility] COVID CepheidOrdered By: Marielos Marcum on 08-06-2023 SARS-CoV-2 (COVID-19) Ab IA Ql Negative Negative [facility] Comment on above: This is a duplicate Cepheid Xpert Xpress CoV-2/Flu/RSV Plus RNA by RT-PCR result to be used for statistical tracking purpose only. SARS-CoV-2 (COVID-19) RNA SOILA+probe Ql (Unsp spec) [facility] COVID-19 / Flu A/B / RSV PCR on 08-06-2023 SARS-CoV-2 (COVID-19) RNA SOILA+probe Ql (Unsp spec) COVID-19 Cepheid Result Negative for SARS-CoV-2 RNA by RT-PCR Flu A Cepheid Result Negative for Flu A RNA by RT-PCR Flu B Cepheid Result Negative for Flu B RNA by RT-PCR RSV Cepheid Result Negative for RSV RNA by RT-PCR COVID19 Blank Space ---- Reference: Negative COVID19 Blank Space ---- Cepheid Disclaimer The Cepheid Xpert Xpress CoV-2/Flu/RSV Plus has Cepheid Disclaimer not been FDA cleared or approved; this test has Cepheid Disclaimer been authorized by FDA under an EUA for use by Cepheid Disclaimer authorized laboratories; this test has been Cepheid Disclaimer authorized only for the simultaneous qualitative Cepheid Disclaimer detection and differentiation of nucleic acids from Cepheid Disclaimer SARS-CoV-2, influenza A, influenza B, and Cepheid Disclaimer respiratory syncytial virus (RSV), and not for any Cepheid Disclaimer other viruses or pathogens; and this test is only Cepheid Disclaimer authorized for the duration of the declaration that Cepheid Disclaimer circumstances exist justifying the authorization of Cepheid Disclaimer emergency use of in vitro diagnostic tests for Cepheid Disclaimer detection and/or diagnosis of COVID-19 under Cepheid Disclaimer Section 564(b)(1) of the Act, 21 U.S.C. 360bbb- Cepheid Disclaimer 3(b)(1), unless the authorization is terminated or Cepheid Disclaimer revoked sooner. PERFORMED BY: [place] [address] PATHOLOGIST MACHINE HAND WAYNE WAKEFIELD M.D. Normal [facility] Comment on above: Performed By: #### V ANCT #### [address] Calcium [Mass/volume] in Ser um or PlasmaOrdered By: Marilee Marcum on 08-06-2023 Calcium [Mass/Vol] 8.6 mg/dL 8.6-10.3 [facility] Carbon dioxide, total [Moles /volume] in Serum or PlasmaOrdered By: Marilee Marcum on 08-06-2023 CO2 [Moles/Vol] 24.9 mmol/L 21.0-31.0 [facility] Cepheid COVID PCR Negativeon 08-06-2023 SARS-CoV-2 (COVID-19) RNA SOILA+probe Ql (Unsp spec) Negative Normal Negative [facility] Comment on above: Result Comment: This is a duplicate CepBactestid Xpert Xpress CoV-2/Flu/RSV Plus RNA by RT-PCR result to be used for statistical tracking purpose only. PERFORMED BY: [place] [address] PATHOLOGIST MACHINE HAND WAYNE WAKEFIELD M.D. Performed By: #### V ANCT #### [place] [address] [place] Chloride [Moles/volume] in S kaitlin or PlasmaOrdered By: Marilee Marcum on 08-06-2023 Chloride [Moles/Vol] 106 mmol/L 98-107 [facility] Complete Blood Count Auto Di ffon 08-06-2023 Basophils (Bld) [#/Vol] 0.1 10*3/uL Normal 0.0-0.2 [facility] Comment on above: Result Comment: PERF ORMED BY: [place] [address] PATHOLOGIST MACHINE HAND WAYNE WAKEFIELD M.D. Performed By: #### V ANCT #### [place] [address] [place] Basophils/100 WBC (Bld) 0.5 % Normal . [facility] Comment on above: Performed By: #### V ANCT #### [place] [address] [place] Eosinophils (Bld) [#/Vol] 0.1 10*3/uL Normal 0.0-0.45 [facility] Comment on above: Performed By: #### V ANCT #### [place] [address] [place] Eosinophils/100 WBC (Bld) 1.0 % Normal . [facility] Comment on above: Performed By: #### V ANCT #### [address] Erythrocyte distribution width (RBC) [Ratio] 16.7 % High 11.9-15.3 [facility] Comment on above: Performed By: #### V ANCT #### [address] Hematocrit (Bld) [Volume fraction] 45.8 % Normal 34.0-46.4 [facility] Comment on above: Performed By: #### V ANCT #### [address] Hemoglobin (Bld) [Mass/Vol] 15.4 g/dL Normal 11.8-15.4 [facility] Comment on above: Performed By: #### V ANCT #### [address] Lymphocytes (Bld) [#/Vol] 1.4 10*3/uL Normal 1.00-4.8 [facility] Comment on above: Performed By: #### V ANCT #### [address] Lymphocytes/100 WBC (Bld) 12.5 % Normal . [facility] Comment on above: Performed By: #### V ANCT #### [address] MCH (RBC) [Entitic mass] 32.9 pg Normal 24.7-34.3 [facility] Comment on above: Performed By: #### V ANCT #### [address] MCV (RBC) [Entitic vol] 97.6 fL Normal 80-100 [facility] Comment on above: Performed By: #### V ANCT #### [address] Mean Corpuscular HGB Conc 33.7 g/dL Normal 32.0-35.0 [facility] Comment on above: Performed By: #### V ANCT #### [place] [address] [place] Monocytes (Bld) [#/Vol] 0.8 10*3/uL Normal 0.0-0.8 [facility] Comment on above: Performed By: #### V ANCT #### [place] [address] [place] Monocytes/100 WBC (Bld) 23.24 % High 0.00-20.00 [facility] Comment on above: Result Comment: For adults in ED, MDW > 20.0 may be associated with a higher risk of sepsis during the first 12 hrs of hospital admission Performed By: #### V ANCT #### [facility] [address] Monocytes/100 WBC (Bld) 7.7 % Normal . [facility] Comment on above: Performed By: #### V ANCT #### [facility] [address] [place] [address] Neutrophils (Bld) [#/Vol] 8.5 10*3/uL High 1.8-7.7 [facility] Comment on above: Performed By: #### V ANCT #### [facility] [address] [place] [address] Neutrophils/100 WBC (Bld) 78.3 % Normal . [facility] Comment on above: Performed By: #### V ANCT #### [facility] [address] [place] [address] NRBC% 0.1 /100{WBC} Normal 0-0.5 [facility] Comment on above: Performed By: #### V ANCT #### [address] Platelet mean volume (Bld) [Entitic vol] 7.3 fL Normal 6.3-10.7 [facility] Comment on above: Performed By: #### V ANCT #### [facility] [address] [place] [address] [place] Platelets (Bld) [#/Vol] 237 10*3/uL Normal 150-450 [facility] Comment on above: Performed By: #### V ANCT #### [facility] [address] [place] [address] [place] RBC (Bld) [#/Vol] 4.70 10*6/uL Normal 3.60-5.00 [facility] Comment on above: Performed By: #### V ANCT #### [facility] [address] WBC (Bld) [#/Vol] 10.8 10*3/uL Normal 3.8-11.6 [facility] Comment on above: Performed By: #### V ANCT #### [facility] [address] [place] [address] Creatinine [Mass/volume] in Serum or PlasmaOrdered By: Marilee Marcum on 08-06-2023 Creatinine [Mass/Vol] 0.72 mg/dL 0.60-1.20 [facility] ECG 12 lead ECGon 08-06-2023 ECG 12 lead ECG [facility] [place] [address] [place] [address] Electrocardiograph Report Signed Patient: Christiane Perez MR#: [id number] 2 : 1975 Acct:[id number] Age/Sex: 48 / F ADM Date: 08/06/23 Loc: ER Room: Type: [facility] ER Attending Dr: Ordering Provider: Marilee Marcum APRN Date of Service: 08/06/23 ECG/ECG 12 lead ECG: Chest Pain Copies to: Test Reason : Blood Pressure : 102/055 mmHG Vent. Rate : 091 BPM Atrial Rate : 091 BPM P-R Int : 164 ms QRS Dur : 096 ms QT Int : 356 ms P-R-T Axes : 068 063 077 degrees QTc Int : 437 ms Normal sinus rhythm Cannot rule out Anterior infarct (cited on or before 16-JUL-2023) Abnormal ECG When compared with ECG of 16-JUL-2023 21:00, No significant change was found Confirmed by [facility] ([id number][facility] on 08/08/2023 11:46:24 AM Referred By: Electronically Signed By:ROBIN ZUNIGA MD [facility] Transcribed By: [facility] Signed By Mario Zuniga MD 08/08/23 1146 [facility] Eosinophils Auto (Bld) [#/Vo l]Ordered By: Marilee Marcum on 08-06-2023 Eosinophils (Bld) [#/Vol] 0.1 10*3/uL 0.0-0.45 [facility] Eosinophils/100 WBC Auto (Bl d)Ordered By: Marilee Marcum on 08-06-2023 Eosinophils/100 WBC (Bld) 1.0 % . [facility] Erythrocyte distribution wid th Auto (RBC) [Ratio]Ordered By: Marilee Marcum on 08-06-2023 Erythrocyte distribution width (RBC) [Ratio] 16.7 % 11.9-15.3 [facility] Glucose [Mass/volume] in Ser um or PlasmaOrdered By: Marilee Marcum on 08-06-2023 Glucose [Mass/Vol] 99 mg/dL 70-100 [facility] Comment on above: ADA recommended refe rence rangeRandom Glucose Reference Range is dependent on time and content of last meal. Glucose of more than 200 mg/dL in a nonstressed, ambulatory subject supports the diagnosis of Diabetes Mellitus. Hematocrit Auto (Bld) [Volum e fraction]Ordered By: Marilee Marcum on 08-06-2023 Hematocrit (Bld) [Volume fraction] 45.8 % 34.0-46.4 [facility] Hemoglobin [Mass/volume] in BloodOrdered By: Marilee Marcum on 08-06-2023 Hemoglobin (Bld) [Mass/Vol] 15.4 g/dL 11.8-15.4 [facility] INR in Platelet poor plasma by Coagulation assayOrdered By: Marilee Marcum on 08-06-2023 INR Coag (PPP) [Relative time] 1.0 {INR} [facility] Comment on above: INR Therapeutic Rang e A) Pre- and Peroperative OAT started two weeks before surgery. NOT HIP SURGERY: 1.5 - 2.5 HIP SURGERY: 2 - 3B) Primary and secondary prevention of venous THROMBOSIS: 2 - 3C) Active venous thrombosis, pulmonary embolismand prevention of recurrent venous thrombosis: 2 - 3D) Prevention of arterial thromboembolismincluding patients with mechanical heart valves: 3 - 4.5 Leukocytes [#/volume] correc billy for nucleated erythrocytes in Blood by Automated counOrdered By: Marilee Marcum on 08-06-2023 WBC corrected for nucl RBC Auto (Bld) [#/Vol] 10.8 10*3/uL 3.8-11.6 [facility] Lymphocytes Auto (Bld) [#/Vo l]Ordered By: Mrailee Marcum on 08-06-2023 Lymphocytes (Bld) [#/Vol] 1.4 10*3/uL 1.00-4.8 [facility] Lymphocytes/100 WBC Auto (Bl d)Ordered By: Marilee Marcum on 08-06-2023 Lymphocytes/100 WBC (Bld) 12.5 % . [facility] MCH Auto (RBC) [Entitic mass ]Ordered By: Marilee Marcum on 08-06-2023 MCH (RBC) [Entitic mass] 32.9 pg 24.7-34.3 [facility] MCHC Auto (RBC) [Mass/Vol]Or dered By: Marilee Marcum on 08-06-2023 MCHC (RBC) [Mass/Vol] 33.7 g/dL 32.0-35.0 [facility] MCV Auto (RBC) [Entitic vol] Ordered By: Marilee Marcum on 08-06-2023 MCV (RBC) [Entitic vol] 97.6 fL 80-100 [facility] Monocyte distribution width [Entitic volume] in Blood by AutomatedOrdered By: Marilee Marcum on 08-06-2023 Monocyte distribution width Auto (Bld) [Entitic vol] 23.24 % 0.00-20.00 [facility] Comment on above: For adults in ED, MD W > 20.0 may be associated with a higher risk of sepsis during the first 12 hrs of hospital admission Monocytes Auto (Bld) [#/Vol] Ordered By: Marilee Marcum on 08-06-2023 Monocytes (Bld) [#/Vol] 0.8 10*3/uL 0.0-0.8 [facility] Monocytes/100 WBC Auto (Bld) Ordered By: Marilee Marcum on 08-06-2023 Monocytes/100 WBC (Bld) 7.7 % . [facility] Natriuretic peptide B [Mass/ Vol]Ordered By: Marilee Marcum on 08-06-2023 Natriuretic peptide B (Bld) [Mass/Vol] 29.0 pg/mL 5-100 [facility] Neutrophils Auto (Bld) [#/Vo l]Ordered By: Marilee Marucm on 08-06-2023 Neutrophils (Bld) [#/Vol] 8.5 10*3/uL 1.8-7.7 [facility] Neutrophils/100 WBC Auto (Bl d)Ordered By: Marilee Marcum on 08-06-2023 Neutrophils/100 WBC (Bld) 78.3 % . [facility] No Panel InformationOrdered By: Marilee Marcum on 08-06-2023 Estimated GFR (CKD-EPI) > 60.0 mL/Min [facility] Creatinine Clearance (Chem 116.58 [facility] Nucleated erythrocytes [Pres ence] in Blood by Automated countOrdered By: Marilee Marcum on 08-06-2023 Nucleated RBC Auto Ql (Bld) 0.1 /100{WBC} 0-0.5 [facility] Partial Thromboplastin Timeo n 08-06-2023 aPTT Coag (Bld) [Time] 32.3 s Normal 25.1-36.5 [facility] Comment on above: Result Comment: A he matocrit value greater than 55% may lead to inaccurate results in coagulation testing. Patients having hematocrit values >55% require a special collection tube for coagulation studies. Please contact the laboratory at [phone] for redraw instructions. PERFORMED BY: [place] [address] PATHOLOGIST MACHINE HAND WAYNE WAKEFIELD M.D. Performed By: #### V ANCT #### [facility] [address] [place] [address] Platelet mean volume Auto (B ld) [Entitic vol]Ordered By: Marilee Marcum on 08-06-2023 Platelet mean volume (Bld) [Entitic vol] 7.3 fL 6.3-10.7 [facility] Platelets Auto (Bld) [#/Vol] Ordered By: Marilee Marcum on 08-06-2023 Platelets (Bld) [#/Vol] 237 10*3/uL 150-450 [facility] Potassium [Moles/volume] in Serum or PlasmaOrdered By: Marilee Marcum on 08-06-2023 Potassium [Moles/Vol] 3.7 mmol/L 3.5-5.1 [facility] Prothrombin Time INRon 08-06 INR Coag (PPP) [Relative time] 1.0 {INR} Normal [facility] Comment on above: Result Comment: INR Therapeutic Range A) Pre- and Peroperative OAT started two weeks before surgery. NOT HIP SURGERY: 1.5 - 2.5 HIP SURGERY: 2 - 3 B) Primary and secondary prevention of venous THROMBOSIS: 2 - 3 C) Active venous thrombosis, pulmonary embolism and prevention of recurrent venous thrombosis: 2 - 3 D) Prevention of arterial thromboembolism including patients with mechanical heart valves: 3 - 4.5 Performed By: #### V ANCT #### [facility] [address] PT Coag (PPP) [Time] 11.3 s Normal 9.0-12.9 [facility] Comment on above: Result Comment: A he matocrit value greater than 55% may lead to inaccurate results in coagulation testing. Patients having hematocrit values >55% require a special collection tube for coagulation studies. Please contact the laboratory at [phone] for redraw instructions. Performed By: #### V ANCT #### [facility] [address] [place] [id number] [facility] Prothrombin time (PT)Ordered By: Marilee Marcum on 08-06-2023 PT Coag (PPP) [Time] 11.3 s 9.0-12.9 [facility] Comment on above: A hematocrit value g reater than 55% may lead to inaccurate results in coagulation testing. Patients having hematocrit values >55% require a special collection tube for coagulation studies. Please contact the laboratory at [phone] for redraw instructions. RBC Auto (Bld) [#/Vol]Ordere d By: Marilee Marcum on 08-06-2023 RBC (Bld) [#/Vol] 4.70 10*6/uL 3.60-5.00 [facility] Serum or plasma anion gap de terminationOrdered By: Marilee Marcum on 08-06-2023 Anion gap [Moles/Vol] 9.8 mmol/L 6.0-15.0 [facility] Sodium [Moles/volume] in Ser um or PlasmaOrdered By: Marilee Marcum on 08-06-2023 Sodium [Moles/Vol] 137 mmol/L 136-145 [facility] Troponin I High Sensitivityo n 08-06-2023 Troponin I High Sensitivity 8.9 pg/mL Normal 0.0-15.0 [facility] Comment on above: Result Comment: PERF ORMED BY: [place] [address] PATHOLOGIST MACHINE HAND WAYNE WAKEFIELD M.D. Performed By: #### V ANCT #### [facility] [address] [place] [address] Troponin I.cardiac [Mass/vol ume] in Serum or Plasma by Detection limit <= 0.01 ng/Ordered By: Marilee Marcum on 08-06-2023 Troponin I.cardiac DL <= 0.01 ng/mL [Mass/Vol] 8.9 pg/mL 0.0-15.0 [facility] Urea nitrogen [Mass/volume] in Serum or PlasmaOrdered By: Marilee Marcum on 08-06-2023 Urea nitrogen [Mass/Vol] 8 mg/dL 7-25 [facility] WBC Auto (Bld) [#/Vol]Ordere d By: Marilee Marcum on 08-06-2023 WBC (Bld) [#/Vol] 10.8 10*3/uL 3.8-11.6 [facility] XR chest 2V*on 08-06-2023 XR chest 2V* [facility] Main [place] [address] [place] [address] XRay Report Signed Patient: Christiane Perez MR#: [id number] 2 : 1975 Acct:[id number] Age/Sex: 48 / F ADM Date: 08/06/23 Loc: ER Room: Type: [facility] ER Attending Dr: Copies to: Marilee Marcum APRN Ordering Provider: Marilee Marcum APRN Date of Service: 08/06/23 XR/XR chest 2V*: Chest Pain Plain film chest 2 view HISTORY: Cough shortness of breath and right-sided chest pain COMPARISON: 07/16/2023 FINDINGS: SUPPORT DEVICES: None POSTSURGICAL CHANGES: None HEART: Within normal limits PULMONARY JESUS: Within normal limits MEDIASTINUM: Unremarkable LUNGS AND PLEURA: No acute lung process, pleural effusion or pneumothorax identified. BONY STRUCTURES: Intact ADDITIONAL FINDINGS None XR/XR chest 2V* IMPRESSION: No acute process. Impression dictated by: Giovanny Cleveland M.D.08/06/2023 8:42 PM Dictation Location: [place] [address] Transcribed By: [facility] 08/06/232041 Dictated By: Giovanny Cleveland DO 08/06/232038 Signed By: 08/06/232041 [facility] Basic Metabolic Panelon Anion gap [Moles/Vol] 9.2 mmol/L Normal 6.0-15.0 [facility] Comment on above: Performed By: #### G LULS #### Point of Care testing , Calcium [Mass/Vol] 8.9 mg/dL Normal 8.6-10.3 [facility] Comment on above: Performed By: #### G LULS #### Point of Care testing , Chloride [Moles/Vol] 107 mmol/L Normal 98-107 [facility] Comment on above: Performed By: #### G LULS #### Point of Care testing , CO2 [Moles/Vol] 25.5 mmol/L Normal 21.0-31.0 [facility] Comment on above: Performed By: #### G LULS #### Point of Care testing , Creatinine [Mass/Vol] 0.70 mg/dL Normal 0.60-1.20 [facility] Comment on above: Performed By: #### G LULS #### Point of Care testing , Creatinine Clr Calc Pharmacy 119.81 [facility] Comment on above: Result Comment: PERF ORMED BY: [address] [place] [address] PATHOLOGIST MACHINE HAND WAYNE WAKEFIELD M.D. Performed By: #### G LULS #### Point of Care testing , GFR/1.73 sq M.predicted MDRD (S/P/Bld) [Vol rate/Area] mL/min/{1.73_m2} Normal [facility] Comment on above: Performed By: #### G LULS #### Point of Care testing , Glucose [Mass/Vol] 50 mg/dL Low 70-100 [facility] Comment on above: Result Comment: [place] Glucose Reference Range is dependent on time and content of last meal. Glucose of more than 200 mg/dL in a nonstressed, ambulatory subject supports the diagnosis of Diabetes Mellitus. ADA recommended reference range Performed By: #### G LULS #### Point of Care testing , Potassium [Moles/Vol] 3.7 mmol/L Normal 3.5-5.1 [facility] Comment on above: Performed By: #### G LULS #### Point of Care testing , Sodium [Moles/Vol] 138 mmol/L Normal 136-145 [facility] Comment on above: Performed By: #### G LULS #### Point of Care testing , Urea nitrogen [Mass/Vol] 10 mg/dL Normal 7-25 [facility] Comment on above: Performed By: #### G LULS #### Point of Care testing , Complete Blood Count Auto Di ffon 07-17-2023 Basophils (Bld) [#/Vol] 0.2 10*3/uL Normal 0.0-0.2 [facility] Comment on above: Result Comment: PERF ORMED BY: [facility] [address] [place] [address] PATHOLOGIST MACHINE HAND WAYNE WAKEFIELD M.D. Performed By: #### G LULS #### Point of Care testing , Basophils/100 WBC (Bld) 1.1 % Normal . [facility] Comment on above: Performed By: #### G LULS #### Point of Care testing , Eosinophils (Bld) [#/Vol] 0.2 10*3/uL Normal 0.0-0.45 [facility] Comment on above: Performed By: #### G LULS #### Point of Care testing , Eosinophils/100 WBC (Bld) 1.2 % Normal . [facility] Comment on above: Performed By: #### Sophia HERNANDEZLS #### Point of Care testing , Erythrocyte distribution width (RBC) [Ratio] 16.3 % High 11.9-15.3 [facility] Comment on above: Performed By: #### G MARYLS #### Point of Care testing , Hematocrit (Bld) [Volume fraction] 45.8 % Normal 34.0-46.4 [facility] Comment on above: Performed By: #### G MARYLS #### Point of Care testing , Hemoglobin (Bld) [Mass/Vol] 15.3 g/dL Normal 11.8-15.4 [facility] Comment on above: Performed By: #### G MARYLS #### Point of Care testing , Lymphocytes (Bld) [#/Vol] 4.4 10*3/uL Normal 1.00-4.8 [facility] Comment on above: Performed By: #### Sophia HERNANDEZLS #### Point of Care testing , Lymphocytes/100 WBC (Bld) 32.3 % Normal . [facility] Comment on above: Performed By: #### Sophia HERNANDEZLS #### Point of Care testing , MCH (RBC) [Entitic mass] 32.2 pg Normal 24.7-34.3 [facility] Comment on above: Performed By: #### Sophia HERNANDEZLS #### Point of Care testing , MCV (RBC) [Entitic vol] 96.4 fL Normal 80-100 [facility] Comment on above: Performed By: #### Sophia GARVEY #### Point of Care testing , Mean Corpuscular HGB Conc 33.4 g/dL Normal 32.0-35.0 [facility] Comment on above: Performed By: #### Sophia HERNANDEZLS #### Point of Care testing , Monocytes (Bld) [#/Vol] 0.9 10*3/uL High 0.0-0.8 [facility] Comment on above: Performed By: #### Sophia HERNANDEZLS #### Point of Care testing , Monocytes/100 WBC (Bld) 17.19 % Normal 0.00-20.00 [facility] Comment on above: Performed By: #### G MARYLS #### Point of Care testing , Monocytes/100 WBC (Bld) 6.8 % Normal . [facility] Comment on above: Performed By: #### G LULS #### Point of Care testing , Neutrophils (Bld) [#/Vol] 8.0 10*3/uL High 1.8-7.7 [facility] Comment on above: Performed By: #### G LULS #### Point of Care testing , Neutrophils/100 WBC (Bld) 58.6 % Normal . [facility] Comment on above: Performed By: #### G LULS #### Point of Care testing , NRBC% 0.1 /100{WBC} Normal 0-0.5 [facility] Comment on above: Performed By: #### G MARYLS #### Point of Care testing , Platelet mean volume (Bld) [Entitic vol] 6.9 fL Normal 6.3-10.7 [facility] Comment on above: Performed By: #### G MARYLS #### Point of Care testing , Platelets (Bld) [#/Vol] 414 10*3/uL Normal 150-450 [facility] Comment on above: Performed By: #### G MARYLS #### Point of Care testing , RBC (Bld) [#/Vol] 4.75 10*6/uL Normal 3.60-5.00 [facility] Comment on above: Performed By: #### G LULS #### Point of Care testing , WBC (Bld) [#/Vol] 13.6 10*3/uL High 3.8-11.6 [facility] Comment on above: Performed By: #### G LULS #### Point of Care testing , XR chest 1V portableon 07-17 XR chest 1V portable [facility] Main [place] [id number] XRay Report Signed Patient: Christiane Perez MR#: [id number] 2 : 1975 Acct:[id number] Age/Sex: 48 / F ADM Date: 07/16/23 Loc: ER Room: Type: [facility] ER Attending Dr: Copies to: Yasmin Leung MD Ordering Provider: Yasmin Leung MD Date of Service: 07/16/23 XR/XR chest 1V portable: Shortness of Breath/Dyspnea PORTABLE AP ERECT CHEST 2245 hours CLINICAL HISTORY: Shortness of breath COMPARISON: 07/05/2023 The heart is within normal limits. There is no vascular congestion. There is minor atelectasis and scarring. No developing consolidation is noted. There is no effusion or pneumothorax. The osseous structures are intact. Endplate spurring is seen. XR/XR chest 1V portable IMPRESSION: NO ACUTE FINDINGS Impression dictated by: Shireen Caruso M.D.07/17/2023 8:50 AM Dictation Location: [place] [address] Transcribed By: [facility] 07/17/23 0850 Dictated By: Shireen Caruso MD 07/17/23 0849 Signed By: 07/17/23 0850 Normal [facility] Basophils Auto (Bld) [#/Vol] Ordered By: Yasmin Leung on 07-16-2023 Basophils (Bld) [#/Vol] 0.2 10*3/uL 0.0-0.2 [facility] Basophils/100 WBC Auto (Bld) Ordered By: Yasmin Leung on 07-16-2023 Basophils/100 WBC (Bld) 1.1 % . [facility] Calcium [Mass/volume] in Ser um or PlasmaOrdered By: Yasmin Leung on 07-16-2023 Calcium [Mass/Vol] 8.9 mg/dL 8.6-10.3 [facility] Carbon dioxide, total [Moles /volume] in Serum or PlasmaOrdered By: Yasmin Leung on 07-16-2023 CO2 [Moles/Vol] 25.5 mmol/L 21.0-31.0 [facility] Chloride [Moles/volume] in S kaitlin or PlasmaOrdered By: Yasmin Leung on 07-16-2023 Chloride [Moles/Vol] 107 mmol/L 98-107 [facility] Creatinine [Mass/volume] in Serum or PlasmaOrdered By: Yasmin Leung on 07-16-2023 Creatinine [Mass/Vol] 0.70 mg/dL 0.60-1.20 [facility] ECG 12 lead ECGon 07-16-2023 ECG 12 lead ECG [facility] Main [place] [address] [place], [place] [id number] Electrocardiograph Report Signed Patient: Christiane Perez MR#: [id number] 2 : 1975 Acct:[id number] Age/Sex: 48 / F ADM Date: 07/16/23 Loc: ER Room: Type: [facility] ER Attending Dr: Ordering Provider: Yasmin Leung MD Date of Service: 07/16/2309/07/2053 ECG/ECG 12 lead ECG: Shortness of Breath/Dyspnea Copies to: Test Reason : Blood Pressure : 157/086 mmHG Vent. Rate : 091 BPM Atrial Rate : 091 BPM P-R Int : 162 ms QRS Dur : 088 ms QT Int : 352 ms P-R-T Axes : 063 082 064 degrees QTc Int : 432 ms Normal sinus rhythm Cannot rule out Anterior infarct , age undetermined Abnormal ECG No previous ECGs available Confirmed by YASMIN LEUNG MD ([id number]) on 07/17/2023 1:19:08 AM Referred By: Electronically Signed By:YASMIN LEUNG MD Transcribed By: [facility] Signed By Yasmin Leung MD 07/17/23 0119 Normal [facility] Eosinophils Auto (Bld) [#/Vo l]Ordered By: Yasmin Leung on 07-16-2023 Eosinophils (Bld) [#/Vol] 0.2 10*3/uL 0.0-0.45 [facility] Eosinophils/100 WBC Auto (Bl d)Ordered By: Yasmin Leung on 07-16-2023 Eosinophils/100 WBC (Bld) 1.2 % . [facility] Erythrocyte distribution wid th Auto (RBC) [Ratio]Ordered By: Yasmin Leung on 07-16-2023 Erythrocyte distribution width (RBC) [Ratio] 16.3 % 11.9-15.3 [facility] Glucose [Mass/volume] in Ser um or PlasmaOrdered By: Yasmin Leung on 07-16-2023 Glucose [Mass/Vol] 50 mg/dL 70-100 [facility] Comment on above: ADA recommended refe rence rangeRandom Glucose Reference Range is dependent on time and content of last meal. Glucose of more than 200 mg/dL in a nonstressed, ambulatory subject supports the diagnosis of Diabetes Mellitus. Hematocrit Auto (Bld) [Volum e fraction]Ordered By: Yasmin Leung on 07-16-2023 Hematocrit (Bld) [Volume fraction] 45.8 % 34.0-46.4 [facility] Hemoglobin [Mass/volume] in BloodOrdered By: Yasmin Leung on 07-16-2023 Hemoglobin (Bld) [Mass/Vol] 15.3 g/dL 11.8-15.4 [facility] Leukocytes [#/volume] correc billy for nucleated erythrocytes in Blood by Automated counOrdered By: Yasmin Leung on 07-16-2023 WBC corrected for nucl RBC Auto (Bld) [#/Vol] 13.6 10*3/uL 3.8-11.6 [facility] Lymphocytes Auto (Bld) [#/Vo l]Ordered By: Yasmin Leung on 07-16-2023 Lymphocytes (Bld) [#/Vol] 4.4 10*3/uL 1.00-4.8 [facility] Lymphocytes/100 WBC Auto (Bl d)Ordered By: Yasmin Leung on 07-16-2023 Lymphocytes/100 WBC (Bld) 32.3 % . [facility] MCH Auto (RBC) [Entitic mass ]Ordered By: Yasmin Leung on 07-16-2023 MCH (RBC) [Entitic mass] 32.2 pg 24.7-34.3 [facility] MCHC Auto (RBC) [Mass/Vol]Or dered By: Yasmin Leung on 07-16-2023 MCHC (RBC) [Mass/Vol] 33.4 g/dL 32.0-35.0 [facility] MCV Auto (RBC) [Entitic vol] Ordered By: Yasmin Leung on 07-16-2023 MCV (RBC) [Entitic vol] 96.4 fL 80-100 [facility] Monocyte distribution width [Entitic volume] in Blood by AutomatedOrdered By: Yasmin Leung on 07-16-2023 Monocyte distribution width Auto (Bld) [Entitic vol] 17.19 % 0.00-20.00 [facility] Monocytes Auto (Bld) [#/Vol] Ordered By: Yasmin Leung on 07-16-2023 Monocytes (Bld) [#/Vol] 0.9 10*3/uL 0.0-0.8 [facility] Monocytes/100 WBC Auto (Bld) Ordered By: Yasmin Leung on 07-16-2023 Monocytes/100 WBC (Bld) 6.8 % . [facility] Neutrophils Auto (Bld) [#/Vo l]Ordered By: Yasmin Leung on 07-16-2023 Neutrophils (Bld) [#/Vol] 8.0 10*3/uL 1.8-7.7 [facility] Neutrophils/100 WBC Auto (Bl d)Ordered By: Yasmin Leung on 07-16-2023 Neutrophils/100 WBC (Bld) 58.6 % . [facility] No Panel InformationOrdered By: Yasmin Leung on 07-16-2023 Estimated GFR (CKD-EPI) > 60.0 mL/Min [facility] Creatinine Clearance (Chem 119.81 [facility] Nucleated erythrocytes [Pres ence] in Blood by Automated countOrdered By: Yasmin Leung on 07-16-2023 Nucleated RBC Auto Ql (Bld) 0.1 /100{WBC} 0-0.5 [facility] Platelet mean volume Auto (B ld) [Entitic vol]Ordered By: Yasmin Leung on 07-16-2023 Platelet mean volume (Bld) [Entitic vol] 6.9 fL 6.3-10.7 [facility] Platelets Auto (Bld) [#/Vol] Ordered By: Yasmin Leung on 07-16-2023 Platelets (Bld) [#/Vol] 414 10*3/uL 150-450 [facility] Potassium [Moles/volume] in Serum or PlasmaOrdered By: Yasmin Leung on 07-16-2023 Potassium [Moles/Vol] 3.7 mmol/L 3.5-5.1 [facility] RBC Auto (Bld) [#/Vol]Ordere d By: Yasmin Leung on 07-16-2023 RBC (Bld) [#/Vol] 4.75 10*6/uL 3.60-5.00 [facility] Serum or plasma anion gap de terminationOrdered By: Yasmin Leung on 07-16-2023 Anion gap [Moles/Vol] 9.2 mmol/L 6.0-15.0 [facility] Sodium [Moles/volume] in Ser um or PlasmaOrdered By: Yasmin Leung on 07-16-2023 Sodium [Moles/Vol] 138 mmol/L 136-145 [facility] Urea nitrogen [Mass/volume] in Serum or PlasmaOrdered By: Yasmin Leung on 07-16-2023 Urea nitrogen [Mass/Vol] 10 mg/dL 7-25 [facility] WBC Auto (Bld) [#/Vol]Ordere d By: Yasmin Leung on 07-16-2023 WBC (Bld) [#/Vol] 13.6 10*3/uL 3.8-11.6 [facility] COVID CepheidOrdered By: Antonio Villeda on 07-05-2023 SARS-CoV-2 (COVID-19) Ab IA Ql Negative Negative [facility] Comment on above: This is a duplicate Cepheid Xpert Xpress CoV-2/Flu/RSV Plus RNA by RT-PCR result to be used for statistical tracking purpose only. SARS-CoV-2 (COVID-19) RNA SOILA+probe Ql (Unsp spec) [facility] COVID-19 / Flu A/B / RSV PCR on 07-05-2023 SARS-CoV-2 (COVID-19) RNA SOILA+probe Ql (Unsp spec) COVID-19 Cepheid Result Negative for SARS-CoV-2 RNA by RT-PCR Flu A Cepheid Result Negative for Flu A RNA by RT-PCR Flu B Cepheid Result Negative for Flu B RNA by RT-PCR RSV Cepheid Result Negative for RSV RNA by RT-PCR COVID19 Blank Space ---- Reference: Negative COVID19 Blank Space ---- Cepheid Disclaimer The Cepheid Xpert Xpress CoV-2/Flu/RSV Plus has Cepheid Disclaimer not been FDA cleared or approved; this test has Cepheid Disclaimer been authorized by FDA under an EUA for use by Cepheid Disclaimer authorized laboratories; this test has been Cepheid Disclaimer authorized only for the simultaneous qualitative Cepheid Disclaimer detection and differentiation of nucleic acids from Cepheid Disclaimer SARS-CoV-2, influenza A, influenza B, and Cepheid Disclaimer respiratory syncytial virus (RSV), and not for any Cepheid Disclaimer other viruses or pathogens; and this test is only Cepheid Disclaimer authorized for the duration of the declaration that Cepheid Disclaimer circumstances exist justifying the authorization of Cepheid Disclaimer emergency use of in vitro diagnostic tests for Cepheid Disclaimer detection and/or diagnosis of COVID-19 under Cepheid Disclaimer Section 564(b)(1) of the Act, 21 U.S.C. 360bbb- Cepheid Disclaimer 3(b)(1), unless the authorization is terminated or Cepheid Disclaimer revoked sooner. PERFORMED BY: [address] [place] [address] PATHOLOGIST MACHINE HAND WAYNE WAKEFIELD M.D. Normal [facility] Comment on above: Performed By: #### G LULS #### Point of Care testing , Cepheid COVID PCR Negativeon 07-05-2023 SARS-CoV-2 (COVID-19) RNA SOILA+probe Ql (Unsp spec) Negative Normal Negative [facility] Comment on above: Result Comment: This is a duplicate Cepheid Xpert Xpress CoV-2/Flu/RSV Plus RNA by RT-PCR result to be used for statistical tracking purpose only. PERFORMED BY: [address] [place] [address] PATHOLOGIST MACHINE HAND WAYNE WAKEFIELD M.D. Performed By: #### G LULS #### Point of Care testing , XR chest 2V*on 07-05-2023 XR chest 2V* [facility] Main [place] [address] [place] [id number] XRay Report Signed Patient: Christiane Perez MR#: [id number] 2 : 1975 Acct:[id number] Age/Sex: 48 / F ADM Date: 07/05/23 Loc: ER Room: Type: [facility] ER Attending Dr: Copies to: Elio Villeda PA-C Ordering Provider: Elio Villeda PA-C Date of Service: 07/05/23 XR/XR chest 2V*: Shortness of Breath/Dyspnea Plain film chest 2 view HISTORY: Cough and shortness of breath COMPARISON: 03/12/2023 CT chest 04/09/2023 FINDINGS: SUPPORT DEVICES: None POSTSURGICAL CHANGES: None HEART: Within normal limits PULMONARY JESUS: Within normal limits MEDIASTINUM: Unremarkable LUNGS AND PLEURA: No acute lung process, pleural effusion or pneumothorax identified. Left upper lung reticular densities likely representing scarring/atelectasis. BONY STRUCTURES: Intact ADDITIONAL FINDINGS None XR/XR chest 2V* IMPRESSION: No acute process. Left upper lung reticular densities consistent with scarring/atelectasis. Impression dictated by: Giovanny Cleveland M.D.07/05/2023 2:41 PM Dictation Location: [place] [address] Transcribed By: [facility] 07/05/23 1441 Dictated By: Giovanny Cleveland DO 07/05/23 1437 Signed By: 07/05/23 1441 Normal [facility] Quick Strepon 06-20-2023 S. pyogenes Org specific cx Ql (Throat) Negative [facility] Other Quick Strep [facility] Other CT chest wo conon 04-09-2023 CT chest wo con [facility] [place] [address] [place] [id number] Scan Report Signed Patient: Chrsitiane Perez MR#: [id number] 2 : 1975 Acct:[id number] Age/Sex: 48 / F ADM Date: 04/09/23 Loc: ICCT Room: Type: [facility] CLI Attending Dr: Valeriano Horta MD Copies to: Valeriano Horta MD Ordering Provider: Valeriano Horat MD Date of Service: 04/09/23 CT/CT chest wo con: ABSCESS OF LUNG CT CHEST WITHOUT IV CONTRAST: CLINICAL HISTORY: Shortness of breath and left-sided chest pain for 2 days. History of COPD. COMPARISON: CT chest 03/10/2023 TECHNIQUE: Spiral images were obtained through the chest without IV contrast. This CT exam was performed using one or more following dose reduction techniques: Automated exposure control, adjustment of the mA and/or kV according to patient size, or use of iterative reconstruction technique. FINDINGS: Mediastinum:Thoracic aorta appears normal in caliber. Pulmonary trunk appears nondilated. No pleural effusion. No lymphadenopathy. The esophagus is grossly unremarkable. Lungs:Interval decrease in size of the cavitary consolidation involving the left upper lobe when compared to the prior study with residual scarring/consolidation noted. No new consolidation, pneumothorax or pleural effusion. Mild additional lung scarring is seen. No suspicious pulmonary nodule or mass. Abd:Questionable pneumobilia. Left adrenal adenoma. Stable low attenuating lesion involving the liver measuring 1.8 cm in greatest axial dimension. No acute findings. Soft tissues/Bones: Visualized soft tissues demonstrate no acute findings. Osseous structures demonstrate degenerative change. CT/CT chest wo con IMPRESSION: Interval decrease in the cavitary consolidation involving the left upper lobe when compared to the prior study with residual scarring/consolidation seen. Repeat CT is recommended to ensure complete resolution. Stable indeterminate lesion involving the left lobe of the liver. This can be further evaluated with a liver CT or MRI. Impression dictated by: Rodger Johnson Jr., D.O.04/09/2023 3:00 PM Dictation Location: [place] [address] Transcribed By: [facility] 04/09/23 1500 Dictated By: Rodger Johnson Jr, DO 04/09/23 1455 Signed By: 04/09/23 1500 Normal [facility] SURGICAL PATHOLOGY REFERENCE LAB CONSULTon 03-19-2023 CASE REPORT Normal [facility] Comment on above: Order Comment: Speci men Type: SLIDE Ordering Facility: [facility] Address: [address] [place] [id number] Result Comment: Surg ical Pathology Report Case: [id number] Authorizing Provider: Gregory Aranda MD Collected: 03/19/2023 09:16 AM Ordering Location: [facility] Main Received: 03/19/2023 09:14 AM Pathologist: Mando Gar MD Specimen: SLIDE(S), 8 SLIDES [id number] Performed By: #### L [id number] #### [facility] CLIA [id number] [address] [facility] [address] CLINICAL HISTORY CONSULT REQUESTED [facility] Comment on above: Order Comment: Speci men Type: SLIDE Ordering Facility: [facility] Address: [address] [place], [place] [id number] Performed By: #### L [id number] #### [facility] CLIA [id number] [address] [place] [address] DIAGNOSIS COMMENT Normal [facility] Comment on above: Order Comment: Speci men Type: SLIDE Ordering Facility: [facility] Address: [address] [place] [address] Result Comment: Than k you for sharing this case of a 48-year-old female with the clinical history of lung abscess, who underwent left upper lobe biopsy. Multiple levels were examined. Sections reveal organizing acute lung injury with abundant fibrin and variably associated acute inflammation. A possible giant cell is noted. No well formed granuloma or foreign material is identified. No prominent eosinophilic infiltrate is seen. While the inflammation focally extends into some vascular yanez, this vascular involvement may be secondary given the inflammatory background. No hemosiderosis or definitive features of vasculitis/capillaritis is demonstrated. GMS, PAS-D and AFB stains were performed at the outside institution. No fungal or acid-fast organisms were identified. No malignancy is identified in the sections examined. The findings are those of a fibrinous organizing acute lung injury with acute inflammation. The clinical history of abscess is noted. While the findings may represent changes in proximity to abscess, they are not entirely specific. Such findings may be also seen in association with several conditions, including infections, aspiration/inhalational injury, autoimmune disorder/connective tissue disease, toxin, vasculitis/capillaritis, eosinophilic pneumonia, etc.. No prominent eosinophilic infiltrate is seen, but correlation with current medication is recommended (since steroids can clear eosinophils). Finally, the negative stains do not exclude infectious etiology; correlation with microbiology/cultures, if available, is recommended. Performed By: #### L [id number] #### [facility] CLIA [id number] [address] [place] [address] STATES OF [facility] DIAGNOS[facility] Normal [facility] Comment on above: Order Comment: Speci men Type: SLIDE Ordering Facility: [facility] Address: [address] [place], [place] [phone] Result Comment: Lung , left upper lobe, transbronchial biopsy ([id number], A1; 03/11/2023): -Organizing acute lung injury with fibrin and acute inflammation Performed By: #### L [id number] #### [facility] CLIA [id number] [address] [place] [address] STATES OF [facility] Normal [facility] Comment on above: Order Comment: Speci men Type: SLIDE Ordering Facility: [facility] Address: [address] [place], [place] [id number] Result Comment: Diag nostic interpretation performed at [facility], [address] [place] [address] CLIA# [id number] [employer] Former: Don Meehan M.D. Performed By: #### L [id number] #### [facility] CLIA [id number] [address] [place] [address] STATES OF [place] XR chest 1V portableon 03-17 XR chest 1V portable [facility] [place] [address] XRay Report Signed Patient: Christiane Perez MR#: [id number] 2 : 1975 Acct:[id number] Age/Sex: 48 / F ADM Date: 03/10/23 Loc: Room: [address] [place] [address] Type: DIS IN Attending Dr: Krunal Kelly DO Copies to: MD Krunal Pascal DO Ordering Provider: Errol Nicole MD Date of Service: 03/11/23 XR/XR chest 1V portable: s/p bronchoscopy SINGLE VIEW CHEST CLINICAL HISTORY: Post left upper lobe biopsy today. COMPARISON: Chest 03/10/2023 FINDINGS: Heart normal in size. Left upper lobe mass/consolidation is similar to the prior study. No pneumothorax, pleural effusion or free air. XR/XR chest 1V portable IMPRESSION: NO PNEUMOTHORAX IS SEEN STATUS POST LEFT UPPER LOBE LUNG BIOPSY. Impression dictated by: Rodger Johnson Jr., D.OJosue03/17/2023 10:12 AM Dictation Location: [place] [address] Transcribed By: [facility] 03/17/23 1012 Dictated By: Rodger Johnson Jr, DO 03/17/23 1012 Signed By: 03/17/23 1012 Normal [facility] A1C with Estimated Average G golden 03-14-2023 Glucose [Mass/Vol] 171 mg/dL Normal [facility] Comment on above: Result Comment: PERF ORMED BY: [facility] [address] [place] [address] PATHOLOGIST MACHINE HAND WAYNE WAKEFIELD M.D. Performed By: #### G LULS #### Point of Care testing , HbA1c (Bld) [Mass fraction] 7.6 % High 4.3-5.6 [facility] Comment on above: Result Comment: Incr eased risk for diabetes: 5.7 - 6.4 diabetes: >6.4 glycemic control for adults with diabetes: <7.0 Performed By: #### G LULS #### Point of Care testing , Alanine aminotransferase [En zymatic activity/volume] in Serum or PlasmaOrdered By: Krunal Kelly on 03-14-2023 ALT [Catalytic activity/Vol] 5 U/L 7-52 [facility] Albumin [Mass/volume] in Ser um or Plasma by Bromocresol green (BCG) dye binding methoOrdered By: Krunal Kelly on 03-14-2023 Albumin BCG dye [Mass/Vol] 2.9 g/dL 3.5-5.7 [facility] Alkaline phosphatase [Enzyma tic activity/volume] in Serum or PlasmaOrdered By: Krunal Kelly on 03-14-2023 ALP [Catalytic activity/Vol] 94 U/L 34-104 [facility] Aspartate aminotransferase [ Enzymatic activity/volume] in Serum or PlasmaOrdered By: Krunal Kelly on 03-14-2023 AST [Catalytic activity/Vol] 8 U/L 13-39 [facility] Basophils Auto (Bld) [#/Vol] Ordered By: Eron Wood on 03-14-2023 Basophils (Bld) [#/Vol] 0.1 10*3/uL 0.0-0.2 [facility] Basophils/100 WBC Auto (Bld) Ordered By: Eron Wood on 03-14-2023 Basophils/100 WBC (Bld) 0.7 % . [facility] Bilirubin.total [Mass/volume ] in Serum or PlasmaOrdered By: Krunal Kelly on 03-14-2023 Bilirubin [Mass/Vol] 0.7 mg/dL 0.3-1.0 [facility] Calcium [Mass/volume] in Ser um or PlasmaOrdered By: Krunal Kelly on 03-14-2023 Calcium [Mass/Vol] 8.3 mg/dL 8.6-10.3 [facility] Carbon dioxide, total [Moles /volume] in Serum or PlasmaOrdered By: Krunal Kelly on 03-14-2023 CO2 [Moles/Vol] 24.8 mmol/L 21.0-31.0 [facility] Chloride [Moles/volume] in S kaitlin or PlasmaOrdered By: Krunal Kelly on 03-14-2023 Chloride [Moles/Vol] 108 mmol/L 98-107 [facility] Complete Blood Count Auto Di ffon 03-14-2023 Basophils (Bld) [#/Vol] 0.1 10*3/uL Normal 0.0-0.2 [facility] Comment on above: Result Comment: PERF ORMED BY: [place] [address] PATHOLOGIST MACHINE HAND WAYNE WAKEFIELD M.D. Performed By: #### V ANCT #### [address] Basophils/100 WBC (Bld) 0.7 % Normal . [facility] Comment on above: Performed By: #### V ANCT #### [address] Eosinophils (Bld) [#/Vol] 0.4 10*3/uL Normal 0.0-0.45 [facility] Comment on above: Performed By: #### V ANCT #### [address] Eosinophils/100 WBC (Bld) 4.4 % Normal . [facility] Comment on above: Performed By: #### V ANCT #### [address] Erythrocyte distribution width (RBC) [Ratio] 15.5 % High 11.9-15.3 [facility] Comment on above: Performed By: #### V ANCT #### [address] Hematocrit (Bld) [Volume fraction] 35.1 % Normal 34.0-46.4 [facility] Comment on above: Performed By: #### V ANCT #### [address] Hemoglobin (Bld) [Mass/Vol] 12.0 g/dL Normal 11.8-15.4 [facility] Comment on above: Performed By: #### V ANCT #### [address] Lymphocytes (Bld) [#/Vol] 1.6 10*3/uL Normal 1.00-4.8 [facility] Comment on above: Performed By: #### V ANCT #### [address] Lymphocytes/100 WBC (Bld) 16.8 % Normal . [facility] Comment on above: Performed By: #### V ANCT #### [address] MCH (RBC) [Entitic mass] 32.8 pg Normal 24.7-34.3 [facility] Comment on above: Performed By: #### V ANCT #### [address] MCV (RBC) [Entitic vol] 96.4 fL Normal 80-100 [facility] Comment on above: Performed By: #### V ANCT #### [address] Mean Corpuscular HGB Conc 34.1 g/dL Normal 32.0-35.0 [facility] Comment on above: Performed By: #### V ANCT #### [address] Monocytes (Bld) [#/Vol] 0.7 10*3/uL Normal 0.0-0.8 [facility] Comment on above: Performed By: #### V ANCT #### [address] Monocytes/100 WBC (Bld) 7.1 % Normal . [facility] Comment on above: Performed By: #### V ANCT #### [facility] [address] [place] [address] Neutrophils (Bld) [#/Vol] 6.8 10*3/uL Normal 1.8-7.7 [facility] Comment on above: Performed By: #### V ANCT #### [facility] [address] [place] [address] Neutrophils/100 WBC (Bld) 71.0 % Normal . [facility] Comment on above: Performed By: #### V ANCT #### [facility] [address] [place] [address] NRBC% 0.1 /100{WBC} Normal 0-0.5 [facility] Comment on above: Performed By: #### V ANCT #### [facility] [address] [place] [address] Platelet mean volume (Bld) [Entitic vol] 6.2 fL Low 6.3-10.7 [facility] Comment on above: Performed By: #### V ANCT #### [facility] [address] [place] [address] Platelets (Bld) [#/Vol] 424 10*3/uL Normal 150-450 [facility] Comment on above: Performed By: #### V ANCT #### [facility] [address] [place] [address] RBC (Bld) [#/Vol] 3.65 10*6/uL Normal 3.60-5.00 [facility] Comment on above: Performed By: #### V ANCT #### [address] WBC (Bld) [#/Vol] 9.6 10*3/uL Normal 3.8-11.6 [facility] Comment on above: Performed By: #### V ANCT #### [address] Comprehensive Metabolic Pane moose 03-14-2023 Albumin [Mass/Vol] 2.9 g/dL Low 3.5-5.7 [facility] Comment on above: Performed By: #### Sophia GARVEY #### Point of Care testing , Albumin/Globulin [Mass ratio] 0.8 {ratio} Normal [facility] Comment on above: Performed By: #### G MARE #### Point of Care testing , ALP [Catalytic activity/Vol] 94 U/L Normal 34-104 [facility] Comment on above: Performed By: #### G MARE #### Point of Care testing , ALT [Catalytic activity/Vol] 5 U/L Low 7-52 [facility] Comment on above: Performed By: #### G MARE #### Point of Care testing , Anion gap [Moles/Vol] 8.9 mmol/L Normal 6.0-15.0 [facility] Comment on above: Performed By: #### G MARYLS #### Point of Care testing , AST [Catalytic activity/Vol] 8 U/L Low 13-39 [facility] Comment on above: Performed By: #### G MARYLS #### Point of Care testing , Bilirubin [Mass/Vol] 0.7 mg/dL Normal 0.3-1.0 [facility] Comment on above: Performed By: #### G MARYLS #### Point of Care testing , Calcium [Mass/Vol] 8.3 mg/dL Low 8.6-10.3 [facility] Comment on above: Performed By: #### G MARYLS #### Point of Care testing , Chloride [Moles/Vol] 108 mmol/L High 98-107 [facility] Comment on above: Performed By: #### G MARYLS #### Point of Care testing , CO2 [Moles/Vol] 24.8 mmol/L Normal 21.0-31.0 [facility] Comment on above: Performed By: #### G MARYLS #### Point of Care testing , Creatinine [Mass/Vol] 0.68 mg/dL Normal 0.60-1.20 [facility] Comment on above: Performed By: #### G MARYLS #### Point of Care testing , Creatinine Clr Calc Pharmacy 119.15 [facility] Comment on above: Result Comment: PERF ORMED BY: [facility] [address] [place] [address] PATHOLOGIST MACHINE HAND WAYNE WAKEFIELD M.D. Performed By: #### G MARYLS #### Point of Care testing , GFR/1.73 sq M.predicted MDRD (S/P/Bld) [Vol rate/Area] mL/min/{1.73_m2} [facility] Comment on above: Performed By: #### G MARYLS #### Point of Care testing , Globulin (S) [Mass/Vol] 3.7 g/dL [facility] Comment on above: Performed By: #### G MARYLS #### Point of Care testing , Glucose [Mass/Vol] 86 mg/dL Normal 70-100 [facility] Comment on above: Result Comment: [place] Glucose Reference Range is dependent on time and content of last meal. Glucose of more than 200 mg/dL in a nonstressed, ambulatory subject supports the diagnosis of Diabetes Mellitus. ADA recommended reference range Performed By: #### G LULS #### Point of Care testing , Potassium [Moles/Vol] 3.7 mmol/L Normal 3.5-5.1 [facility] Comment on above: Performed By: #### G LULS #### Point of Care testing , Protein [Mass/Vol] 6.6 g/dL Normal 6.4-8.9 [facility] Comment on above: Performed By: #### G LULS #### Point of Care testing , Sodium [Moles/Vol] 138 mmol/L Normal 136-145 [facility] Comment on above: Performed By: #### G LULS #### Point of Care testing , Urea nitrogen [Mass/Vol] 6 mg/dL Low 7-25 [facility] Comment on above: Performed By: #### G LULS #### Point of Care testing , Creatinine [Mass/volume] in Serum or PlasmaOrdered By: Krunal Kelly on 03-14-2023 Creatinine [Mass/Vol] 0.68 mg/dL 0.60-1.20 [facility] Eosinophils Auto (Bld) [#/Vo l]Ordered By: Eron Wood on 03-14-2023 Eosinophils (Bld) [#/Vol] 0.4 10*3/uL 0.0-0.45 [facility] Eosinophils/100 WBC Auto (Bl d)Ordered By: Eron Wood on 03-14-2023 Eosinophils/100 WBC (Bld) 4.4 % . [facility] Erythrocyte distribution wid th Auto (RBC) [Ratio]Ordered By: Eron Wood on 03-14-2023 Erythrocyte distribution width (RBC) [Ratio] 15.5 % 11.9-15.3 [facility] Globulin Calc (S) [Mass/Vol] Ordered By: Krunal Kelly on 03-14-2023 Globulin (S) [Mass/Vol] 3.7 g/dL [facility] Glucose Glucometer (BldC) [M ass/Vol]Ordered By: Krunal Kelly on 03-14-2023 Glucose [Mass/Vol] 249 mg/dL [facility] Comment on above: Random Glucose Refer ence Range is dependent on time and content of last meal. Glucose of more than 200 mg/dL in a nonstressed, ambulatory subject supports the diagnosis of Diabetes Mellitus. Glucose Poct Glucometerson 0 03-14-2023 Glucose [Mass/Vol] 249 mg/dL Normal [facility] Comment on above: Result Comment: [place] om Glucose Reference Range is dependent on time and content of last meal. Glucose of more than 200 mg/dL in a nonstressed, ambulatory subject supports the diagnosis of Diabetes Mellitus. PERFORMED BY: [facility] [address] [place] [address] PATHOLOGIST MACHINE HAND WAYNE WAKEFIELD M.D. Performed By: #### G LULS #### Point of Care testing , Commemt1 Glu2: Cleaned Meter Normal [facility] Comment on above: Result Comment: PERF ORMED BY: [facility] [address] [address] PATHOLOGIST MACHINE HAND WAYNE WAKEFIELD M.D. Performed By: #### G LULS #### Point of Care testing , Glucose [Mass/Vol] 95 mg/dL Normal [facility] Comment on above: Result Comment: [place] om Glucose Reference Range is dependent on time and content of last meal. Glucose of more than 200 mg/dL in a nonstressed, ambulatory subject supports the diagnosis of Diabetes Mellitus. Performed By: #### G LULS #### Point of Care testing , Glucose [Mass/volume] in Ser um or PlasmaOrdered By: Krunal Kelly on 03-14-2023 Glucose [Mass/Vol] 86 mg/dL 70-100 [facility] Comment on above: ADA recommended refe rence rangeRandom Glucose Reference Range is dependent on time and content of last meal. Glucose of more than 200 mg/dL in a nonstressed, ambulatory subject supports the diagnosis of Diabetes Mellitus. Glucose mean value [Mass/vol ume] in Blood Estimated from glycated hemoglobinOrdered By: Krunal Kelly on 03-14-2023 Average glucose Estimated from glycated hemoglobin (Bld) [Mass/Vol] 171 mg/dL [facility] Hematocrit Auto (Bld) [Volum e fraction]Ordered By: Eron Wood on 03-14-2023 Hematocrit (Bld) [Volume fraction] 35.1 % 34.0-46.4 [facility] Hemoglobin A1c percentageOrd ered By: Krunal Kelly on 03-14-2023 HbA1c (Bld) [Mass fraction] 7.6 % 4.3-5.6 [facility] Comment on above: Increased risk for d iabetes: 5.7 - 6.4diabetes: >6.4glycemic control for adults with diabetes: <7.0 Hemoglobin [Mass/volume] in BloodOrdered By: Eron Wood on 03-14-2023 Hemoglobin (Bld) [Mass/Vol] 12.0 g/dL 11.8-15.4 [facility] Leukocytes [#/volume] correc billy for nucleated erythrocytes in Blood by Automated counOrdered By: Eron Wood on 03-14-2023 WBC corrected for nucl RBC Auto (Bld) [#/Vol] 9.6 10*3/uL 3.8-11.6 [facility] Lymphocytes Auto (Bld) [#/Vo l]Ordered By: Eron Wood on 03-14-2023 Lymphocytes (Bld) [#/Vol] 1.6 10*3/uL 1.00-4.8 [facility] Lymphocytes/100 WBC Auto (Bl d)Ordered By: Eron Wood on 03-14-2023 Lymphocytes/100 WBC (Bld) 16.8 % . [facility] MCH Auto (RBC) [Entitic mass ]Ordered By: Eron Wood on 03-14-2023 MCH (RBC) [Entitic mass] 32.8 pg 24.7-34.3 [facility] MCHC Auto (RBC) [Mass/Vol]Or dered By: Eron Wood on 03-14-2023 MCHC (RBC) [Mass/Vol] 34.1 g/dL 32.0-35.0 [facility] MCV Auto (RBC) [Entitic vol] Ordered By: Eron Wood on 03-14-2023 MCV (RBC) [Entitic vol] 96.4 fL 80-100 [facility] Monocytes Auto (Bld) [#/Vol] Ordered By: Eron Wood on 03-14-2023 Monocytes (Bld) [#/Vol] 0.7 10*3/uL 0.0-0.8 [facility] Monocytes/100 WBC Auto (Bld) Ordered By: Eron Wood on 03-14-2023 Monocytes/100 WBC (Bld) 7.1 % . [facility] Neutrophils Auto (Bld) [#/Vo l]Ordered By: Eron Wood on 03-14-2023 Neutrophils (Bld) [#/Vol] 6.8 10*3/uL 1.8-7.7 [facility] Neutrophils/100 WBC Auto (Bl d)Ordered By: Eron Wood on 03-14-2023 Neutrophils/100 WBC (Bld) 71.0 % . [facility] No Panel InformationOrdered By: Krunal Kelly on 03-14-2023 Bedside Glucose Comment Glu2: cleaned meter [facility] Estimated GFR (CKD-EPI) > 60.0 mL/Min [facility] Creatinine Clearance (Chem 119.15 [facility] Nucleated erythrocytes [Pres ence] in Blood by Automated countOrdered By: Eron Wood on 03-14-2023 Nucleated RBC Auto Ql (Bld) 0.1 /100{WBC} 0-0.5 [facility] Platelet mean volume Auto (B ld) [Entitic vol]Ordered By: Eron Wood on 03-14-2023 Platelet mean volume (Bld) [Entitic vol] 6.2 fL 6.3-10.7 [facility] Platelets Auto (Bld) [#/Vol] Ordered By: Eron Wood on 03-14-2023 Platelets (Bld) [#/Vol] 424 10*3/uL 150-450 [facility] Potassium [Moles/volume] in Serum or PlasmaOrdered By: Krunal Kelly on 03-14-2023 Potassium [Moles/Vol] 3.7 mmol/L 3.5-5.1 [facility] Protein [Mass/volume] in Ser um or PlasmaOrdered By: Krunal Kelly on 03-14-2023 Protein [Mass/Vol] 6.6 g/dL 6.4-8.9 [facility] RBC Auto (Bld) [#/Vol]Ordere d By: Eron Wood on 03-14-2023 RBC (Bld) [#/Vol] 3.65 10*6/uL 3.60-5.00 [facility] Serum or plasma albumin/glob ulin mass ratioOrdered By: Krunal Kelly on 03-14-2023 Albumin/Globulin [Mass ratio] 0.8 {ratio} [facility] Serum or plasma anion gap de terminationOrdered By: Krunal Kelly on 03-14-2023 Anion gap [Moles/Vol] 8.9 mmol/L 6.0-15.0 [facility] Sodium [Moles/volume] in Ser um or PlasmaOrdered By: Krunal Kelly on 03-14-2023 Sodium [Moles/Vol] 138 mmol/L 136-145 [facility] Urea nitrogen [Mass/volume] in Serum or PlasmaOrdered By: Krunal Kelly on 03-14-2023 Urea nitrogen [Mass/Vol] 6 mg/dL 7-25 [facility] WBC Auto (Bld) [#/Vol]Ordere d By: Eron Wood on 03-14-2023 WBC (Bld) [#/Vol] 9.6 10*3/uL 3.8-11.6 [facility] Basic Metabolic Panelon 02-14 Anion gap [Moles/Vol] 8.9 mmol/L Normal 6.0-15.0 [facility] Comment on above: Performed By: #### C BC, BMP, MG #### [facility] [address] Calcium [Mass/Vol] 8.4 mg/dL Low 8.6-10.3 [facility] Comment on above: Performed By: #### C BC, BMP, MG #### [facility] [address] [place] [address] [place] Chloride [Moles/Vol] 109 mmol/L High 98-107 [facility] Comment on above: Performed By: #### C BC, BMP, MG #### [facility] [address] CO2 [Moles/Vol] 24.9 mmol/L Normal 21.0-31.0 [facility] Comment on above: Performed By: #### C BC, BMP, MG #### [facility] [address] [place] [address] [place] Creatinine [Mass/Vol] 0.61 mg/dL Normal 0.60-1.20 [facility] Comment on above: Performed By: #### C BC, BMP, MG #### [facility] [address] [place] [address] [place] Creatinine Clr Calc Pharmacy 132.97 [facility] Comment on above: Result Comment: PERF ORMED BY: [place] [address] PATHOLOGIST MACHINE HAND WAYNE WAKEFIELD M.D. Performed By: #### C BC, BMP, MG #### [facility] [address] [place] [address] [place] GFR/1.73 sq M.predicted MDRD (S/P/Bld) [Vol rate/Area] mL/min/{1.73_m2} [facility] Comment on above: Performed By: #### C BC, BMP, MG #### [facility] [address] [place] [address] [place] Glucose [Mass/Vol] 97 mg/dL Normal 70-100 [facility] Comment on above: Result Comment: [place] Glucose Reference Range is dependent on time and content of last meal. Glucose of more than 200 mg/dL in a nonstressed, ambulatory subject supports the diagnosis of Diabetes Mellitus. ADA recommended reference range Performed By: #### C BC, BMP, MG #### [facility] [address] Potassium [Moles/Vol] 3.8 mmol/L Normal 3.5-5.1 [facility] Comment on above: Performed By: #### C BC, BMP, MG #### [address] Sodium [Moles/Vol] 139 mmol/L Normal 136-145 [facility] Comment on above: Performed By: #### C BC, BMP, MG #### [address] Urea nitrogen [Mass/Vol] 6 mg/dL Low 7-25 [facility] Comment on above: Performed By: #### C BC, BMP, MG #### [address] Complete Blood Count Auto Di ffon 03-13-2023 Basophils (Bld) [#/Vol] 0.0 10*3/uL Normal 0.0-0.2 [facility] Comment on above: Result Comment: PERF ORMED BY: [place] [address] PATHOLOGIST MACHINE HAND WAYNE WAKEFIELD M.D. Performed By: #### C BC, BMP, MG #### [place] [address] [place] Basophils/100 WBC (Bld) 0.5 % Normal . [facility] Comment on above: Performed By: #### C BC, BMP, MG #### [address] Eosinophils (Bld) [#/Vol] 0.4 10*3/uL Normal 0.0-0.45 [facility] Comment on above: Performed By: #### C BC, BMP, MG #### [facility] [address] Eosinophils/100 WBC (Bld) 4.5 % Normal . [facility] Comment on above: Performed By: #### C BC, BMP, MG #### [facility] [address] Erythrocyte distribution width (RBC) [Ratio] 15.7 % High 11.9-15.3 [facility] Comment on above: Performed By: #### C BC, BMP, MG #### [address] Hematocrit (Bld) [Volume fraction] 36.2 % Normal 34.0-46.4 [facility] Comment on above: Performed By: #### C BC, BMP, MG #### [address] Hemoglobin (Bld) [Mass/Vol] 12.1 g/dL Normal 11.8-15.4 [facility] Comment on above: Performed By: #### C BC, BMP, MG #### [address] Lymphocytes (Bld) [#/Vol] 1.5 10*3/uL Normal 1.00-4.8 [facility] Comment on above: Performed By: #### C BC, BMP, MG #### [address] Lymphocytes/100 WBC (Bld) 16.5 % Normal . [facility] Comment on above: Performed By: #### C BC, BMP, MG #### [address] MCH (RBC) [Entitic mass] 32.3 pg Normal 24.7-34.3 [facility] Comment on above: Performed By: #### C BC, BMP, MG #### [address] MCV (RBC) [Entitic vol] 96.7 fL Normal 80-100 [facility] Comment on above: Performed By: #### C BC, BMP, MG #### [facility] [address] Mean Corpuscular HGB Conc 33.4 g/dL Normal 32.0-35.0 [facility] Comment on above: Performed By: #### C BC, BMP, MG #### [facility] [address] Monocytes (Bld) [#/Vol] 0.7 10*3/uL Normal 0.0-0.8 [facility] Comment on above: Performed By: #### C BC, BMP, MG #### [facility] [address] Monocytes/100 WBC (Bld) 8.0 % Normal . [facility] Comment on above: Performed By: #### C BC, BMP, MG #### [facility] [address] Neutrophils (Bld) [#/Vol] 6.6 10*3/uL Normal 1.8-7.7 [facility] Comment on above: Performed By: #### C BC, BMP, MG #### [facility] [address] [place] [address] [place] Neutrophils/100 WBC (Bld) 70.5 % Normal . [facility] Comment on above: Performed By: #### C BC, BMP, MG #### [facility] [address] [place] [address] [place] NRBC% 0.1 /100{WBC} Normal 0-0.5 [facility] Comment on above: Performed By: #### C BC, BMP, MG #### [facility] [address] [place] [address] [place] Platelet mean volume (Bld) [Entitic vol] 6.6 fL Normal 6.3-10.7 [facility] Comment on above: Performed By: #### C BC, BMP, MG #### [facility] [address] [place] [address] [place] Platelets (Bld) [#/Vol] 398 10*3/uL Normal 150-450 [facility] Comment on above: Performed By: #### C BC, BMP, MG #### [facility] [address] RBC (Bld) [#/Vol] 3.75 10*6/uL Normal 3.60-5.00 [facility] Comment on above: Performed By: #### C BC, BMP, MG #### [facility] [address] [place] [id number] [facility] WBC (Bld) [#/Vol] 9.3 10*3/uL Normal 3.8-11.6 [facility] Comment on above: Performed By: #### C BC, BMP, MG #### [facility] [address] Glucose Poct Glucometerson 0 03-13-2023 Commemt1 Glu2: Cleaned Meter Normal [facility] Comment on above: Result Comment: PERF ORMED BY: [place] [address] PATHOLOGIST MACHINE HAND WAYNE WAKEFILED M.D. Performed By: #### V ANCT #### [address] Glucose [Mass/Vol] 152 mg/dL Normal [facility] Comment on above: Result Comment: [place] Glucose Reference Range is dependent on time and content of last meal. Glucose of more than 200 mg/dL in a nonstressed, ambulatory subject supports the diagnosis of Diabetes Mellitus. Performed By: #### V ANCT #### [address] Glucose [Mass/Vol] 190 mg/dL Normal [facility] Comment on above: Result Comment: [place] om Glucose Reference Range is dependent on time and content of last meal. Glucose of more than 200 mg/dL in a nonstressed, ambulatory subject supports the diagnosis of Diabetes Mellitus. PERFORMED BY: [place] [address] PATHOLOGIST MACHINE HAND WAYNE WAKEFIELD M.D. Performed By: #### G LULS #### Point of Care testing , Glucose [Mass/Vol] 176 mg/dL Normal [facility] Comment on above: Result Comment: [place] om Glucose Reference Range is dependent on time and content of last meal. Glucose of more than 200 mg/dL in a nonstressed, ambulatory subject supports the diagnosis of Diabetes Mellitus. PERFORMED BY: [facility] [address] [place] [address] PATHOLOGIST MACHINE HAND WAYNE WAKEFIELD M.D. Performed By: #### G LULS #### Point of Care testing , Glucose [Mass/Vol] 107 mg/dL Normal [facility] Comment on above: Result Comment: [place] om Glucose Reference Range is dependent on time and content of last meal. Glucose of more than 200 mg/dL in a nonstressed, ambulatory subject supports the diagnosis of Diabetes Mellitus. PERFORMED BY: [facility] [address] [facility] [address] PATHOLOGIST MACHINE HAND WAYNE WAKEFIELD M.D. Performed By: #### G LULS #### Point of Care testing , Glucose [Mass/Vol] 101 mg/dL Normal [facility] Comment on above: Result Comment: [place] om Glucose Reference Range is dependent on time and content of last meal. Glucose of more than 200 mg/dL in a nonstressed, ambulatory subject supports the diagnosis of Diabetes Mellitus. PERFORMED BY: [address] [place] [address] PATHOLOGIST MACHINE HAND WAYNE WAKEFIELD M.D. Performed By: #### G LULS #### Point of Care testing , Serum or plasma trough vanco mycin levelOrdered By: Eron Wood on 03-13-2023 Vancomycin trough [Mass/Vol] 16.8 ug/mL 10.0-20.0 [facility] Comment on above: Last dose: - Vancomycin,Troughon 03-13-20 Vancomycin,Trough 16.8 ug/mL Normal 10.0-20.0 [facility] Comment on above: Result Comment: Last dose: - PERFORMED BY: [facility] [address] [facility] [address] PATHOLOGIST MACHINE HAND WAYNE WAKEFIELD M.D. Performed By: #### G LULS #### Point of Care testing , Ammoniaon 03-12-2023 Ammonia (P) [Moles/Vol] 31 umol/L Normal [facility] Comment on above: Result Comment: PERF ORMED BY: [facility] [place] [address] PATHOLOGIST MACHINE HAND WAYNE WAKEFIELD M.D. Performed By: #### G MARYLS #### Point of Care testing , Ammonia [Moles/volume] in Pl asmaOrdered By: Víctor Stallings on 03-12-2023 Ammonia (P) [Moles/Vol] 31 umol/L [facility] Amphetamine Screen Ql (U)Ord ered By: Eron Wood on 03-12-2023 Amphetamines Ql (U) Negative Negative [facility] Barbiturates [Presence] in U rine by Screen methodOrdered By: Eron Wood on 03-12-2023 Barbiturates Screen Ql (U) Negative Negative [facility] Basic Metabolic Panelon 02-14 Anion gap [Moles/Vol] 9.5 mmol/L Normal 6.0-15.0 [facility] Comment on above: Performed By: #### G MARYLS #### Point of Care testing , Calcium [Mass/Vol] 8.2 mg/dL Low 8.6-10.3 [facility] Comment on above: Performed By: #### G MARYLS #### Point of Care testing , Chloride [Moles/Vol] 109 mmol/L High 98-107 [facility] Comment on above: Performed By: #### G LULS #### Point of Care testing , CO2 [Moles/Vol] 23.3 mmol/L Normal 21.0-31.0 [facility] Comment on above: Performed By: #### G MARYLS #### Point of Care testing , Creatinine [Mass/Vol] 0.73 mg/dL Normal 0.60-1.20 [facility] Comment on above: Performed By: #### G LULS #### Point of Care testing , Creatinine Clr Calc Pharmacy 111.29 [facility] Comment on above: Result Comment: PERF ORMED BY: [address] [place] [address] PATHOLOGIST MACHINE HAND WAYNE WAKEFIELD M.D. Performed By: #### G LULS #### Point of Care testing , GFR/1.73 sq M.predicted MDRD (S/P/Bld) [Vol rate/Area] mL/min/{1.73_m2} [facility] Comment on above: Performed By: #### G LULS #### Point of Care testing , Glucose [Mass/Vol] 62 mg/dL Low 70-100 [facility] Comment on above: Result Comment: [facility] Glucose Reference Range is dependent on time and content of last meal. Glucose of more than 200 mg/dL in a nonstressed, ambulatory subject supports the diagnosis of Diabetes Mellitus. ADA recommended reference range Performed By: #### G LULS #### Point of Care testing , Potassium [Moles/Vol] 3.8 mmol/L Normal 3.5-5.1 [facility] Comment on above: Performed By: #### G LULS #### Point of Care testing , Sodium [Moles/Vol] 138 mmol/L Normal 136-145 [facility] Comment on above: Performed By: #### G LULS #### Point of Care testing , Urea nitrogen [Mass/Vol] 8 mg/dL Normal 7-25 [facility] Comment on above: Performed By: #### G LULS #### Point of Care testing , Benzodiazepines Screen Ql (U )Ordered By: Eron Wood on 03-12-2023 Benzodiazepines Ql (U) Negative Negative [facility] Benzoylecgonine [Presence] i n Urine by Screen methodOrdered By: Eron Wood on 03-12-2023 Benzoylecgonine Screen Ql (U) Negative Negative [facility] CT head/brain wo conon 03-12 CT head/brain wo con [facility] Main [address] [address] [address] Scan Report Signed Patient: Christiane Perez MR#: [id number] 2 : 1975 Acct:[id number] Age/Sex: 48 / F ADM Date: 03/10/23 Loc: Room: [address] [place] [address] Type: ADM IN Attending Dr: Eron Wood MD Copies to: MD Eron Crane MD Ordering Provider: Víctor Stallings MD Date of Service: 03/12/23 CT/CT head/brain wo con: confusion CT head/brain wo con 03/12/2023 4:25 PM SIGNS AND SYMPTOMS: Confusion, shortness of breath, dizziness TECHNIQUE:Multi-detector CT axial slices of the brain were obtained without IV contrast. CT was performed with one or more of the following dose reduction techniques: Automated exposure control, adjustment of the mA and/or kV according to patient size, or use of iterative reconstruction technique. COMPARISON: 03/31/2021 FINDINGS: There is no shift of the midline structures, acute intracranial bleeding, mass effects, or evidence of acute ischemia. The ventricular system is normal in size. The brainstem and the cerebellum are unremarkable. The visualized intraorbital contents, the visualized paranasal sinuses, and the infratemporal soft tissues show no acute abnormality. The osseous structures in the skull base and the calvarium show no abnormality. CT/CT head/brain wo con IMPRESSION: Normal noncontrasted CT brain. Impression dictated by: Vick Eden M.D.03/12/2023 4:47 PM Dictation Location: [place] [address] Transcribed By: [facility] 03/12/231646 Dictated By: Vick Eden II, MD 03/12/231643 Signed By: 03/12/231646 Normal [facility] Calciumon 03-12-2023 Calcium [Mass/Vol] 8.4 mg/dL Low 8.6-10.3 [facility] Comment on above: Result Comment: PERF ORMED BY: [place] [address] PATHOLOGIST MACHINE HAND WAYNE WAKEFIELD M.D. Performed By: #### G LULS #### Point of Care testing , Cannabinoids [Presence] in U rine by Screen methodOrdered By: Eron Wood on 03-12-2023 Cannabinoids Screen Ql (U) Negative Negative [facility] Comment on above: These are unconfirme d results and should not be used for legal purposes. Drug Cut-Off Concentration: AMPH 1000 ng/mL HANNAH 200 ng/mL JENNIFER 200 ng/mL COCM 300 ng/mL OP 300 ng/mL PCP 25 ng/mL THC 20 ng/mL Complete Blood Count Auto Di ffon 03-12-2023 Basophils (Bld) [#/Vol] 0.1 10*3/uL Normal 0.0-0.2 [facility] Comment on above: Result Comment: PERF ORMED BY: [facility] [address] [place] [address] PATHOLOGIST MACHINE HAND WAYNE WAKEFIELD M.D. Performed By: #### G LULS #### Point of Care testing , Basophils/100 WBC (Bld) 0.7 % Normal . [facility] Comment on above: Performed By: #### G LULS #### Point of Care testing , Eosinophils (Bld) [#/Vol] 0.3 10*3/uL Normal 0.0-0.45 [facility] Comment on above: Performed By: #### G LULS #### Point of Care testing , Eosinophils/100 WBC (Bld) 2.9 % Normal . [facility] Comment on above: Performed By: #### G LULS #### Point of Care testing , Erythrocyte distribution width (RBC) [Ratio] 15.8 % High 11.9-15.3 [facility] Comment on above: Performed By: #### G LULS #### Point of Care testing , Hematocrit (Bld) [Volume fraction] 35.6 % Normal 34.0-46.4 [facility] Comment on above: Performed By: #### G LULS #### Point of Care testing , Hemoglobin (Bld) [Mass/Vol] 11.8 g/dL Normal 11.8-15.4 [facility] Comment on above: Performed By: #### G MARYLS #### Point of Care testing , Lymphocytes (Bld) [#/Vol] 1.3 10*3/uL Normal 1.00-4.8 [facility] Comment on above: Performed By: #### G MARYLS #### Point of Care testing , Lymphocytes/100 WBC (Bld) 13.5 % Normal . [facility] Comment on above: Performed By: #### G MARYLS #### Point of Care testing , MCH (RBC) [Entitic mass] 32.4 pg Normal 24.7-34.3 [facility] Comment on above: Performed By: #### G MARYLS #### Point of Care testing , MCV (RBC) [Entitic vol] 97.7 fL Normal 80-100 [facility] Comment on above: Performed By: #### G MARYLS #### Point of Care testing , Mean Corpuscular HGB Conc 33.1 g/dL Normal 32.0-35.0 [facility] Comment on above: Performed By: #### Sophia GARVEY #### Point of Care testing , Monocytes (Bld) [#/Vol] 0.9 10*3/uL High 0.0-0.8 [facility] Comment on above: Performed By: #### G MARE #### Point of Care testing , Monocytes/100 WBC (Bld) 9.2 % Normal . [facility] Comment on above: Performed By: #### Sophia HERNANDEZLS #### Point of Care testing , Neutrophils (Bld) [#/Vol] 7.2 10*3/uL Normal 1.8-7.7 [facility] Comment on above: Performed By: #### G MARE #### Point of Care testing , Neutrophils/100 WBC (Bld) 73.7 % Normal . [facility] Comment on above: Performed By: #### G MARYLS #### Point of Care testing , NRBC% 0.1 /100{WBC} Normal 0-0.5 [facility] Comment on above: Performed By: #### Sophia HERNANDEZLS #### Point of Care testing , Platelet mean volume (Bld) [Entitic vol] 6.8 fL Normal 6.3-10.7 [facility] Comment on above: Performed By: #### G LUAUGUSTIN #### Point of Care testing , Platelets (Bld) [#/Vol] 342 10*3/uL Normal 150-450 [facility] Comment on above: Performed By: #### G MARE #### Point of Care testing , RBC (Bld) [#/Vol] 3.64 10*6/uL Normal 3.60-5.00 [facility] Comment on above: Performed By: #### G LULS #### Point of Care testing , WBC (Bld) [#/Vol] 9.8 10*3/uL Normal 3.8-11.6 [facility] Comment on above: Performed By: #### G MARE #### Point of Care testing , Drug Screen,Urineon 03-12-20 23 Amphetamine Screen,Urine Negative Normal Negative [facility] Comment on above: Performed By: #### C BC, BMP, MG #### [facility] [address] [place] [address] [place] Barbiturate Screen,Urine Negative Normal Negative [facility] Comment on above: Performed By: #### C BC, BMP, MG #### [facility] [address] [place] [address] [place] Benzodiazepines Screen,Urine Negative Normal Negative [facility] Comment on above: Performed By: #### C BC, BMP, MG #### [place] [address] [place] Cannabinoid Screen,Urine Negative Normal Negative [facility] Comment on above: Result Comment: Thes e are unconfirmed results and should not be used for legal purposes. Drug Cut-Off Concentration: AMPH 1000 ng/mL HANNAH 200 ng/mL JENNIFER 200 ng/mL COCM 300 ng/mL OP 300 ng/mL PCP 25 ng/mL THC 20 ng/mL PERFORMED BY: [place] [address] PATHOLOGIST MACHINE HAND WAYNE WAKEFIELD M.D. Performed By: #### C BC, BMP, MG #### [facility] [address] Cocaine Screen,Urine Negative Normal Negative [facility] Comment on above: Performed By: #### C BC, BMP, MG #### [facility] [address] Opiate Screen,Urine Positive High Negative [facility] Comment on above: Performed By: #### C BC, BMP, MG #### [facility] [address] Phencyclidine Screen,Urine Negative Normal Negative [facility] Comment on above: Performed By: #### C BC, BMP, MG #### [address] Glucose Poct Glucometerson 0 03-12-2023 Commemt1 Glu2: Cleaned Meter Normal [facility] Comment on above: Result Comment: PERF ORMED BY: [place] [address] PATHOLOGIST MACHINE HAND WAYNE WAKEFIELD M.D. Performed By: #### C BC, BMP, MG #### [address] Glucose [Mass/Vol] 199 mg/dL Normal [facility] Comment on above: Result Comment: [place] Glucose Reference Range is dependent on time and content of last meal. Glucose of more than 200 mg/dL in a nonstressed, ambulatory subject supports the diagnosis of Diabetes Mellitus. Performed By: #### C BC, BMP, MG #### [facility] [address] [place] [address] Glucose [Mass/Vol] 158 mg/dL Normal [facility] Comment on above: Result Comment: [place] om Glucose Reference Range is dependent on time and content of last meal. Glucose of more than 200 mg/dL in a nonstressed, ambulatory subject supports the diagnosis of Diabetes Mellitus. PERFORMED BY: [place] [address] PATHOLOGIST MACHINE HAND WAYNE WAKEFIELD M.D. Performed By: #### G LULS #### Point of Care testing , Glucose [Mass/Vol] 152 mg/dL Normal [facility] Comment on above: Result Comment: [facility] Glucose Reference Range is dependent on time and content of last meal. Glucose of more than 200 mg/dL in a nonstressed, ambulatory subject supports the diagnosis of Diabetes Mellitus. PERFORMED BY: [facility] [address] [place] [address] PATHOLOGIST MACHINE HAND WAYNE WAKEFIELD M.D. Performed By: #### G LULS #### Point of Care testing , Commemt1 Glu2: Cleaned Meter Normal [facility] Comment on above: Result Comment: PERF ORMED BY: [facility] [address] [address] PATHOLOGIST MACHINE HAND WAYNE WAKEFIELD M.D. Performed By: #### G LULS #### Point of Care testing , Glucose [Mass/Vol] 75 mg/dL Normal [facility] Comment on above: Result Comment: [facility] Glucose Reference Range is dependent on time and content of last meal. Glucose of more than 200 mg/dL in a nonstressed, ambulatory subject supports the diagnosis of Diabetes Mellitus. Performed By: #### G LULS #### Point of Care testing , Opiates [Presence] in Urine by Screen methodOrdered By: Eron Wood on 03-12-2023 Opiates Screen Ql (U) Positive Negative [facility] Phencyclidine Screen Ql (U)O rdered By: Eron Wood on 03-12-2023 Phencyclidine Ql (U) Negative Negative [facility] Vancomycin [Mass/volume] in Serum or Plasma --peakOrdered By: Eron Wood on 03-12-2023 Vancomycin peak [Mass/Vol] 14.6 ug/mL 20.0-40.0 [facility] Comment on above: Last dose: - Vancomycin,Peakon 03-12-2023 Vancomycin,Peak 14.6 ug/mL Low 20.0-40.0 [facility] Comment on above: Order Comment: Comme nt ?DRAW 1 HOUR AFTER INFUSION COMPLETES Date of last dose?: [id number] Time of last dose?: 1500 Result Comment: Last dose: - PERFORMED BY: [place] [address] PATHOLOGIST MACHINE HAND WAYNE WAKEFIELD M.D. Performed By: #### G LULS #### Point of Care testing , Vancomycin,Troughon 03-12-20 Vancomycin,Trough 17.8 ug/mL Normal 10.0-20.0 [facility] Comment on above: Result Comment: Last dose: - PERFORMED BY: [place] [address] PATHOLOGIST MACHINE HAND WAYNE WAKEFIELD M.D. Performed By: #### V ANCT #### [place] [id number] [facility] XR chest 1V portableon 03-12 XR chest 1V portable [facility] Main [place] [address] [place] [address] XRay Report Signed Patient: Christiane Perez MR#: [id number] 2 : 1975 Acct:[id number] Age/Sex: 48 / F ADM Date: 03/10/23 Loc: Room: [address] [place] [address] Type: ADM IN Attending Dr: Eron Wood MD Copies to: Eron Wood MD Ordering Provider: Eron Wood MD Date of Service: 03/12/23 XR/XR chest 1V portable: SOB XR chest 1V portable 03/12/2023 4:00 PM SIGNS AND SYMPTOMS: Shortness of breath, dizziness, confusion PROTOCOL: Frontal radiograph of the chest COMPARISON: 03/12/2023 FINDINGS: The trachea is midline. The heart and mediastinal structures are within normal limits. Airspace opacity is redemonstrated in the left upper chest. The bony thorax is intact. XR/XR chest 1V portable IMPRESSION: Airspace opacity is redemonstrated in the left upper chest. This is unchanged. Impression dictated by: Vick Eden M.D.03/12/2023 4:19 PM Dictation Location: RADIO-PC-13 Transcribed By: CHARLI 03/12/23 1619 Dictated By: Vick Eden II, MD 03/12/23 1617 Signed By: 03/12/23 161 [facility] XR chest 1V portable [facility] Main [place] [address] [place], [place] [id number] XRay Report Signed Patient: Christiane Perez MR#: [id number] 2 : 1975 Acct:[id number] Age/Sex: 48 / F ADM Date: 03/10/23 Loc: Room: [address] [place] [address] Type: ADM IN Attending Dr: Eron Wood MD Copies to: MD Eron Johnson MD Ordering Provider: Valeriano Horta MD Date of Service: 03/12/23 XR/XR chest 1V portable: pneumonia XR chest 1V portable 03/12/2023 9:05 AM SIGNS AND SYMPTOMS: Persistent shortness of breath, history of left lung abscess PROTOCOL: Frontal radiograph of the chest COMPARISON: 03/11/2023 FINDINGS: The trachea is midline. The heart and mediastinal structures are within normal limits. There is a similar opacity in the left upper lobe. The bony thorax is intact. XR/XR chest 1V portable IMPRESSION: There is a similar opacity in the left upper lobe. Impression dictated by: Vick Eden M.D.03/12/2023 1:57 PM Dictation Location: RADIO-PC-13 Transcribed By: CHARLI 03/12/23 1357 Dictated By: Vick Eden II, MD 03/12/23 135 Signed By: 03/12/23 135 [facility] AFB Specimen Processingon AFB Specimen Processing Concentration Negative Performed at: [facility] [address] [id number] County Coroner: Juan Jennings PhD, Phone: [phone] Negative No acid fast bacilli isolated after 6 weeks. Performed at: [address] [id number] County Coroner: Juan Jennings PhD, Phone: [phone] PERFORMED BY: [place] [address] PATHOLOGIST MACHINE HAND WAYNE WAKEFIELD M.D. [facility] Comment on above: Performed By: #### G LUAUGUSTIN #### Point of Care testing , Aerobic Cultureon 03-11-2023 Aerobic Culture ORGANISM: Janine tropicalis (O:CANTRO) Quantity of Growth Light Growth ORGANISM: Janine albicans (O:CANALB) Quantity of Growth Light Growth Gram Stain Result 1+ White Blood Cells Rare Epithelial Cells Rare Gram Positive Bacilli Rare Gram Positive Cocci 1+ Yeast Like Elements PERFORMED BY: [place] [address] PATHOLOGIST MACHINE HAND WAYNE WAKEFIELD M.D. [facility] Comment on above: Performed By: #### A ERC #### [facility] [address] [place] [address] [place] Bacteria identified Aer cx N om (Bronch spec)Ordered By: Errol Nicole on 03-11-2023 Bronchial Culture Janine tropicalis [facility] Bronchial Culture Janine albicans F [facility] Basic Metabolic Panelon 02-14 Anion gap [Moles/Vol] 8.9 mmol/L Normal 6.0-15.0 [facility] Comment on above: Performed By: #### C BC, BMP, MG #### [facility] [address] [place], [place] [address] [place] Calcium [Mass/Vol] 8.4 mg/dL Low 8.6-10.3 [facility] Comment on above: Performed By: #### C BC, BMP, MG #### [facility] [address] [place], [place] [address] [place] Chloride [Moles/Vol] 107 mmol/L Normal 98-107 [facility] Comment on above: Performed By: #### C BC, BMP, MG #### [facility] [address] [place], [place] [address] [place] CO2 [Moles/Vol] 25.0 mmol/L Normal 21.0-31.0 [facility] Comment on above: Performed By: #### C BC, BMP, MG #### [facility] [address] [place] [address] [place] Creatinine [Mass/Vol] 0.72 mg/dL Normal 0.60-1.20 [facility] Comment on above: Performed By: #### C BC, BMP, MG #### [facility] [address] [place] [address] [place] Creatinine Clr Calc Pharmacy 112.35 [facility] Comment on above: Performed By: #### C BC, BMP, MG #### [facility] [address] [place] [address] [place] GFR/1.73 sq M.predicted MDRD (S/P/Bld) [Vol rate/Area] mL/min/{1.73_m2} [facility] Comment on above: Performed By: #### C BC, BMP, MG #### [address] Glucose [Mass/Vol] 120 mg/dL High 70-100 [facility] Comment on above: Result Comment: [facility] Glucose Reference Range is dependent on time and content of last meal. Glucose of more than 200 mg/dL in a nonstressed, ambulatory subject supports the diagnosis of Diabetes Mellitus. ADA recommended reference range Performed By: #### C BC BMP, MG #### [facility] [address] [place] [address] [place] Potassium [Moles/Vol] 3.9 mmol/L Normal 3.5-5.1 [facility] Comment on above: Performed By: #### C BC, BMP, MG #### [facility] [address] [place] [address] [place] Sodium [Moles/Vol] 137 mmol/L Normal 136-145 [facility] Comment on above: Performed By: #### C BC, BMP, MG #### [place] [address] [place] Urea nitrogen [Mass/Vol] 10 mg/dL Normal 7-25 [facility] Comment on above: Performed By: #### C BC, BMP, MG #### [facility] [address] [place] [address] Bronch Cultureon 03-11-2023 Bronch Culture ORGANISM: Janine tropicalis (O:CANTRO) Quantity of Growth Light Growth ORGANISM: Janine albicans (O:CANALB) Quantity of Growth Light Growth PERFORMED BY: [place] [address] PATHOLOGIST MACHINE HAND WAYNE WAKEFIELD M.D. Normal [facility] Comment on above: Performed By: #### G LUAUGUSTIN #### Point of Care testing , Complete Blood Count Auto Di ffon 03-11-2023 Basophils (Bld) [#/Vol] 0.0 10*3/uL Normal 0.0-0.2 [facility] Comment on above: Result Comment: PERF ORMED BY: [place] [address] PATHOLOGIST MACHINE HAND WAYNE WAKEFIELD M.D. Performed By: #### C BC, BMP, MG #### [address] Basophils/100 WBC (Bld) 0.3 % Normal . [facility] Comment on above: Performed By: #### C BC, BMP, MG #### [address] Eosinophils (Bld) [#/Vol] 0.2 10*3/uL Normal 0.0-0.45 [facility] Comment on above: Performed By: #### C BC, BMP, MG #### [address] Eosinophils/100 WBC (Bld) 2.1 % Normal . [facility] Comment on above: Performed By: #### C BC, BMP, MG #### [address] Erythrocyte distribution width (RBC) [Ratio] 15.9 % High 11.9-15.3 [facility] Comment on above: Performed By: #### C BC, BMP, MG #### [address] Hematocrit (Bld) [Volume fraction] 36.2 % Normal 34.0-46.4 [facility] Comment on above: Performed By: #### C BC BMP, MG #### [address] Hemoglobin (Bld) [Mass/Vol] 11.9 g/dL Normal 11.8-15.4 [facility] Comment on above: Performed By: #### C BC, BMP, MG #### [address] Lymphocytes (Bld) [#/Vol] 1.1 10*3/uL Normal 1.00-4.8 [facility] Comment on above: Performed By: #### C BC BMP, MG #### [address] Lymphocytes/100 WBC (Bld) 9.5 % Normal . [facility] Comment on above: Performed By: #### C BC, BMP, MG #### [address] MCH (RBC) [Entitic mass] 31.9 pg Normal 24.7-34.3 [facility] Comment on above: Performed By: #### C BC BMP, MG #### [address] MCV (RBC) [Entitic vol] 97.5 fL Normal 80-100 [facility] Comment on above: Performed By: #### C BC, BMP, MG #### [address] Mean Corpuscular HGB Conc 32.8 g/dL Normal 32.0-35.0 [facility] Comment on above: Performed By: #### C BC, BMP, MG #### [address] Monocytes (Bld) [#/Vol] 1.0 10*3/uL High 0.0-0.8 [facility] Comment on above: Performed By: #### C BC, BMP, MG #### [place] [address] [place] Monocytes/100 WBC (Bld) 8.9 % Normal . [facility] Comment on above: Performed By: #### C BC, BMP, MG #### [facility] [address] Neutrophils (Bld) [#/Vol] 9.3 10*3/uL High 1.8-7.7 [facility] Comment on above: Performed By: #### C BC, BMP, MG #### [facility] [address] Neutrophils/100 WBC (Bld) 79.2 % Normal . [facility] Comment on above: Performed By: #### C BC, BMP, MG #### [facility] [address] NRBC% 0.0 /100{WBC} Normal 0-0.5 [facility] Comment on above: Performed By: #### C BC, BMP, MG #### [facility] [address] Platelet mean volume (Bld) [Entitic vol] 7.1 fL Normal 6.3-10.7 [facility] Comment on above: Performed By: #### C BC, BMP, MG #### [facility] [address] Platelets (Bld) [#/Vol] 360 10*3/uL Normal 150-450 [facility] Comment on above: Performed By: #### C BC, BMP, MG #### [facility] [address] RBC (Bld) [#/Vol] 3.72 10*6/uL Normal 3.60-5.00 [facility] Comment on above: Performed By: #### C BC, BMP, MG #### [facility] [address] WBC (Bld) [#/Vol] 11.7 10*3/uL High 3.8-11.6 [facility] Comment on above: Performed By: #### C BC, BMP, MG #### [facility] [address] Fungal cultureOrdered By: Corrina Nicole on 03-11-2023 Fungus identified Cx Nom (Unsp spec) [facility] Fungus # 2 identified in Uns pecified specimen by CultureOrdered By: Errol Nicole on 03-11-2023 Fungus identified # 2 Cx Nom (Unsp spec) [facility] Fungus # 3 identified in Uns pecified specimen by CultureOrdered By: Errol Nicole on 03-11-2023 Fungus identified # 3 Cx Nom (Unsp spec) [facility] Fungus (Mycology) Cultureon 03-11-2023 Fungus (Mycology) Culture Preliminary report Final report Janine glabrata Janine tropicalis Performed at: [place] [address] County Coroner: Juan Jennings PhD, Phone: [place] Janine albicans Performed at: [address] [id number] County Coroner: Juan Jennings PhD, Phone: [place] PERFORMED BY: [place] [address] PATHOLOGIST MACHINE HAND WAYNE WAKEFIELD M.D. [facility] Comment on above: Performed By: #### G LULS #### Point of Care testing , Fungus (Mycology) Result 2on 03-11-2023 Fungus (Mycology) Result 2 Janine tropicalis Performed at: [address] [id number] County Coroner: Juan Jennings PhD, Phone: [phone] Janine albicans Performed at: [address] [id number] County Coroner: Juan Jennings PhD, Phone: [phone] PERFORMED BY: [place] [address] PATHOLOGIST MACHINE HAND WAYNE WAKEFIELD M.D. [facility] Comment on above: Performed By: #### G LULS #### Point of Care testing , Glucose Poct Glucometerson 0 03-11-2023 Commemt1 Glu2: Cleaned Meter [facility] Comment on above: Result Comment: PERF ORMED BY: [facility] [address] [place] [address] PATHOLOGIST MACHINE HAND WAYNE WAKEFIELD M.D. Performed By: #### G LULS #### Point of Care testing , Glucose [Mass/Vol] 121 mg/dL Normal [facility] Comment on above: Result Comment: [place] om Glucose Reference Range is dependent on time and content of last meal. Glucose of more than 200 mg/dL in a nonstressed, ambulatory subject supports the diagnosis of Diabetes Mellitus. Performed By: #### G LULS #### Point of Care testing , Commemt1 Glu2: Cleaned Meter [facility] Comment on above: Result Comment: PERF ORMED BY: [address] [place] [address] PATHOLOGIST MACHINE HAND WAYNE WAKEFIELD M.D. Performed By: #### G LULS #### Point of Care testing , Glucose [Mass/Vol] 80 mg/dL Normal [facility] Comment on above: Result Comment: [place] om Glucose Reference Range is dependent on time and content of last meal. Glucose of more than 200 mg/dL in a nonstressed, ambulatory subject supports the diagnosis of Diabetes Mellitus. Performed By: #### G LULS #### Point of Care testing , Glucose [Mass/Vol] 134 mg/dL Normal [facility] Comment on above: Result Comment: [place] om Glucose Reference Range is dependent on time and content of last meal. Glucose of more than 200 mg/dL in a nonstressed, ambulatory subject supports the diagnosis of Diabetes Mellitus. PERFORMED BY: [address] [place] [address] PATHOLOGIST MACHINE HAND WAYNE WAKEFIELD M.D. Performed By: #### G LULS #### Point of Care testing , Commemt1 [facility] Comment on above: Result Comment: Glu2 : WILL NOTIFY DR/RN PERFORMED BY: [facility] [address] [facility] [address] PATHOLOGIST MACHINE HAND WAYNE WAKEFIELD M.D. Performed By: #### G LULS #### Point of Care testing , Glucose [Mass/Vol] 58 mg/dL Off scale low [facility] Comment on above: Result Comment: [place] Glucose Reference Range is dependent on time and content of last meal. Glucose of more than 200 mg/dL in a nonstressed, ambulatory subject supports the diagnosis of Diabetes Mellitus. Performed By: #### G LULS #### Point of Care testing , Commemt1 Glu2: Cleaned Meter Normal [facility] Comment on above: Result Comment: PERF ORMED BY: [place] [address] [address] [place] [address] PATHOLOGIST MACHINE HAND WAYNE WAKEFIELD M.D. Performed By: #### G LULS #### Point of Care testing , Glucose [Mass/Vol] 249 mg/dL [facility] Comment on above: Result Comment: [facility] Glucose Reference Range is dependent on time and content of last meal. Glucose of more than 200 mg/dL in a nonstressed, ambulatory subject supports the diagnosis of Diabetes Mellitus. Performed By: #### G LULS #### Point of Care testing , Glucose [Mass/Vol] 138 mg/dL [facility] Comment on above: Result Comment: [facility] Glucose Reference Range is dependent on time and content of last meal. Glucose of more than 200 mg/dL in a nonstressed, ambulatory subject supports the diagnosis of Diabetes Mellitus. PERFORMED BY: [place] [address] [address] [place] [id number] PATHOLOGIST MACHINE HAND WAYNE WAKEFIELD M.D. Performed By: #### G LULS #### Point of Care testing , Gram Stainon 03-11-2023 Microscopic observation Gram stain Nom (Unsp spec) Gram Stain Result 1+ White Blood Cells 1+ Yeast Like Elements No Bacteria Seen Fungus Smear Results 1+ Yeast Like Elements Seen PERFORMED BY: [place] [address] [address] [place] [place] [id number] PATHOLOGIST MACHINE HAND WAYNE WAKEFIELD M.D. [facility] Comment on above: Performed By: #### G MARE #### Point of Care testing , [place] 03-11-2023 L ----- Specimen: [id number] Received: 03/12/23 Status: DAY St Num: [id number] Spec Type: Cytology Subm Dr: Errol Nicole MD Tissues: A BRONWASH ([facility]) Procedures: HE/2, Gross/Micro L4, Cyto Prepstain, PAPSTN Age/ Patient Sex Location Account Attending Physician Christiane Perez 48/F 3T [id number] Krunal Kelly DO SPEC NUM: [id number] RECD: 03/12/23 STATUS: DAY ST NUM: [id number] HARRY: 03/11/[address]: Errol Nicole MD ENTERED: 03/12/[address] [facility] DR: SPEC TYPE: Cytology DEPT: [facility] ENTERED BY: [id number] RECV BY: [id number] ORDERED: HE/2, Gross/Micro L4, Cyto Prepstain, PAPSTN ORDERED: HE/2, Gross/Micro L4, Cyto Prepstain, PAPSTN Pathological Diagnosis Bronchial wash, cytology: - Negative for malignancy, inflammatory process - See note and pathology report [id number] Note: Smear and cell block shows many benign and reactive squamous cells, some ciliated bronchial epithelial cells, and many inflammatory cells mainly composed of neutrophils and some macrophages in a bloody and proteinaceous background. Clinical Information Abscess Gross Description Received is 18 cc clear, red unfixed fluid w/villegas particulate matter for cytology said to have been obtained as Bronchoscopy. ThinPrep and cell block preparations are prepared for microscopic examination.(SS/nh) Specimen: [id number] Received: 03/12/23 Status: DAY St Num: [id number] Spec Type: Cytology Subm Dr: Errol Nicole MD Tissues: A BRONWASH ([facility]) Procedures: HE/2, Gross/Micro L4, Cyto Prepstain, PAPSTN Patient: Christiane Perez [id number] (Continued) Signed (signature on file) Gregory Aranda MD 03/17/23820 [facility] L ----- Specimen: [id number] Received: 03/11/23 Status: DAY St Num: [id number] Spec Type: Surgical Subm Dr: Errol Nicole MD Tissues: A Lung - Transbroncial Biopsy ([facility] BX) Procedures: ISIDRA SONG, PAUL/5, Gross/Micro L4, GMS II ARMANI Oquendo Age/ Patient Sex Location Account Attending Physician Christiane Perez 48/F [id number] Krunal Kelly DO SPEC NUM: [id number] RECD: 03/11/23 STATUS: DAY ST NUM: [id number] HARRY: 03/11/23 [facility] DR: Errol Nicole MD ENTERED: 03/11/[address]: NEIL TYPE: Surgical DEPT: S ORDERED: PAS - LGRN, HE/5, Gross/Micro L4, GMS II Dark, AFB ORDERED: PAS - LGRN, HE/5, Gross/Micro L4, GMS II Dark, AFB Supplemental Report Addendum 1 Entered: 03/24/23 This supplemental is created for scanning [facility] report Addendum Signed (signature on file) Gregory Aranda MD 03/24/23 1000 AJ1 Pathological Diagnosis Lung, trans bronchial biopsy: - Lung tissue with fibrinoid exudate, intraalveolar hemorrhage, organizing thrombus, acute and chronic inflammation, fibrosis and mild interstitial expansion with edema and inflammatory cells. - Negative for malignancy Note: Special stains with GMS, PAS and AFB is negative. This case will send to the [facility] for consultation and second opinion and the result will be reported as an addendum. Specimen: [id number] Received: 03/11/23 Status: DAY St Num: [id number] Spec Type: Surgical Subm Dr: Errol Nicole MD Tissues: A Lung - Transbroncial Biopsy ([facility] BX) Procedures: PAS - LGRN, HE/5, Gross/Micro L4, GMS II Dark, AFB Patient: PerezChristiane [id number] (Continued) Specimen: [id number] Received: 03/11/23 (Continued) Signed (signature on file) Gregory Aranda MD 03/17/23 0812 Specimen: [id number] Received: 03/11/23 Status: DAY St Num: [id number] Spec Type: Surgical Subm Dr: Errol Nicole MD Tissues: A Lung - Transbroncial Biopsy ([facility] BX) Procedures: ISIDRA SONG, HE/5, Gross/Micro L4, GMS II Dark, AFB Patient: Christiane Perez [id number] (Continued) Specimen: [id number] Received: 03/11/23 (Continued) Clinical Information Abscess Gross Description Received in formalin labeled with the patient's name, date of and [facility] biopsies are multiple villegas tissues measuring 1.5 x 0.3 x 0.2 cm in aggregate. Entirely submitted in one cassette labeled A1. Microscopic Description Two H E slides reviewed. The microscopic examination confirms the diagnosis. CPT Codes 70974 Specimen: [id number] Received: 03/11/23 Status: DAY St Num: [id number] Spec Type: Surgical Subm Dr: Errol Nicole MD Tissues: A Lung - Transbroncial Biopsy ([facility] BX) Procedures: ISIDRA SONG, HE/5, Gross/Micro L4, GMS II ARMANI Oquendo Patient: Christiane Perez [id number] (Continued) Signed (signature on file) Gregory Aranda MD 03/17/23811 [facility] Magnesiumon 03-11-2023 Magnesium [Mass/Vol] 1.9 mg/dL Normal 1.9-2.7 [facility] Comment on above: Result Comment: PERF ORMED BY: [address] [place] [address] PATHOLOGIST MACHINE HAND WAYNE WAKEFIELD M.D. Performed By: #### C BC, BMP, MG #### [facility] [address] Magnesium [Mass/volume] in S kaitlin or PlasmaOrdered By: Eron Wood on 03-11-2023 Magnesium [Mass/Vol] 1.9 mg/dL 1.9-2.7 [facility] Vancomycin,Peakon 03-11-2023 Vancomycin,Peak 12.5 ug/mL Low 20.0-40.0 [facility] Comment on above: Order Comment: Comme nt ?DRAW 1 HOUR AFTER INFUSION COMPLETES Date of last dose?: [id number] Time of last dose?: 1500 Result Comment: Last dose: - PERFORMED BY: [place] [address] PATHOLOGIST MACHINE HAND WAYNE WAKEFIELD M.D. Performed By: #### G MARE #### Point of Care testing , Activated partial thrombopla stin time (aPTT) in platelet poor plasma by coagulation aOrdered By: Lavell Salazar on 03-10-2023 aPTT Coag (PPP) [Time] 40.2 s 25.1-36.5 [facility] B-Type Natriuretic Peptideon 03-10-2023 Natriuretic peptide B (Bld) [Mass/Vol] 46.0 pg/mL Normal 5-100 [facility] Comment on above: Result Comment: PERF ORMED BY: [address] [place] [address] PATHOLOGIST MACHINE HAND WAYNE WAKEFIELD M.D. Performed By: #### C BC, BMP, MG #### [facility] [address] [place] [address] [facility] Bacterial blood cultureOrder ed By: Lavell Salazar on 03-10-2023 Bacteria identified Cx Nom (Bld) NO GROWTH 5 DAYS [facility] Basic Metabolic Panelon 07-2 Anion gap [Moles/Vol] 11.3 mmol/L Normal 6.0-15.0 [facility] Comment on above: Performed By: #### C BC, BMP, MG #### [facility] [address] Calcium [Mass/Vol] 8.9 mg/dL Normal 8.6-10.3 [facility] Comment on above: Performed By: #### C BC, BMP, MG #### [facility] [address] [place] [address] [place] Chloride [Moles/Vol] 103 mmol/L Normal 98-107 [facility] Comment on above: Performed By: #### C BC, BMP, MG #### [facility] [address] CO2 [Moles/Vol] 24.2 mmol/L Normal 21.0-31.0 [facility] Comment on above: Performed By: #### C BC, BMP, MG #### [facility] [address] [place] [address] [place] Creatinine [Mass/Vol] 0.70 mg/dL Normal 0.60-1.20 [facility] Comment on above: Performed By: #### C BC, BMP, MG #### [place] [address] [place] Creatinine Clr Calc Pharmacy 117.33 [facility] Comment on above: Result Comment: PERF ORMED BY: [place] [address] PATHOLOGIST MACHINE HAND WAYNE WAKEFIELD M.D. Performed By: #### C BC, BMP, MG #### [place] [address] [place] GFR/1.73 sq M.predicted MDRD (S/P/Bld) [Vol rate/Area] mL/min/{1.73_m2} [facility] Comment on above: Performed By: #### C BC, BMP, MG #### [facility] [address] Glucose [Mass/Vol] 69 mg/dL Low 70-100 [facility] Comment on above: Result Comment: [place] Glucose Reference Range is dependent on time and content of last meal. Glucose of more than 200 mg/dL in a nonstressed, ambulatory subject supports the diagnosis of Diabetes Mellitus. ADA recommended reference range Performed By: #### C BC, BMP, MG #### [facility] [address] Potassium [Moles/Vol] 3.5 mmol/L Normal 3.5-5.1 [facility] Comment on above: Performed By: #### C BC, BMP, MG #### [address] Sodium [Moles/Vol] 135 mmol/L Low 136-145 [facility] Comment on above: Performed By: #### C BC, BMP, MG #### [address] Urea nitrogen [Mass/Vol] 10 mg/dL Normal 7-25 [facility] Comment on above: Performed By: #### C BC, BMP, MG #### [place] [address] [place] Bilirubin.direct [Mass/volum e] in Serum or PlasmaOrdered By: Lavell Salazar on 03-10-2023 Bilirubin.direct [Mass/Vol] 0.20 mg/dL 0.03-0.18 [facility] Blood Cultureon 03-10-2023 Bacteria identified Cx Nom (Bld) NO GROWTH 5 DAYS PERFORMED BY: [place] [address] PATHOLOGIST MACHINE HAND WAYNE WAKEFIELD M.D. [facility] Comment on above: Performed By: #### C BC, BMP, MG #### [facility] [address] [place] [address] Bacteria identified Cx Nom (Bld) NO GROWTH 5 DAYS PERFORMED BY: [place] [address] PATHOLOGIST MACHINE HAND WAYNE WAKEFIELD M.D. [facility] Comment on above: Performed By: #### C BC, BMP, MG #### [address] chest w conon 03-10-2023 CT chest w con [facility] [place] [address] [place] [address] CT Scan Report Signed Patient: Christiane Perez MR#: [id number] 2 : 1975 Acct:[id number] Age/Sex: 48 / F ADM Date: 03/10/23 Loc: ER Room: Type: [facility] ER Attending Dr: Copies to: Lavell Salazar DO Ordering Provider: Lavell Salazar DO Date of Service: 03/10/23 CT/CT chest w con: Lung abscess CT Chest with contrast TECHNIQUE: Axial imaging with 2-D reconstruction. 90 cc of Isovue-300The CT exam was performed using one or more the following dose reduction techniques: Automated exposure control, adjustment of the MA and/or Kv according to patient size, or use of the iterative reconstruction technique. History: History of lung abscess. Shortness of breath for one month. COMPARISON: Plain film 03/10/2023 THYROID: Unremarkable TRACHEA AND BRONCHI: Patent ESOPHAGUS: Unremarkable. HEART: Within normal limits PERICARDIAL EFFUSION: None CORONARY ARTERY CALCIFICATION: None MEDIASTINUM: No adenopathy. No pneumoperitoneum. No mediastinal hematoma. PULMONARY JSEUS: No hilar mass or adenopathy is seen. THORACIC AORTA Unremarkable LUNG NODULE None LUNGS: The region of cavitation with small fluid present in the left upper lobe and suprahilar region extending to the apex. The surrounding consolidation may represent infiltrate. PLEURAL EFFUSION: None PNEUMOTHORAX: No pneumothorax seen. CHEST WALL: No abnormality AXILLA:Unremarkable BONY STRUCTURES Intact UPPER ABDOMEN: Cholecystectomy. Hepatic steatosis. 18 mm anterior hepatic lesion. 2.3 cm right adrenal nodule. CT/CT chest w con IMPRESSION: Left upper lung suprahilar consolidation with regions of cavitation consistent with patient's history of lung abscess. Adjacent consolidation may represent additional infiltrate. Follow-up assessment for confirmation of resolution recommended. Indeterminate anterior hepatic lesion. Consider CT of abdomen with hemangioma protocol. Low-density right adrenal 2.3 cm nodule likely representing adenoma. Impression dictated by: Giovanny Cleveland M.D.03/10/2023 2:30 PM Dictation Location: [place] [address] Transcribed By: [facility] 03/10/23 1430 Dictated By: Giovanny Cleveland DO 03/10/23 1421 Signed By: 03/10/23 1430 Normal [facility] Complete Blood Count Auto Di ffon 03-10-2023 Basophils (Bld) [#/Vol] 0.0 10*3/uL Normal 0.0-0.2 [facility] Comment on above: Result Comment: PERF ORMED BY: [facility] [address] [place] [address] PATHOLOGIST MACHINE HAND WAYNE WAKEFIELD M.D. Performed By: #### G LULS #### Point of Care testing , Basophils/100 WBC (Bld) 0.2 % Normal . [facility] Comment on above: Performed By: #### G LULS #### Point of Care testing , Eosinophils (Bld) [#/Vol] 0.2 10*3/uL Normal 0.0-0.45 [facility] Comment on above: Performed By: #### G LULS #### Point of Care testing , Eosinophils/100 WBC (Bld) 1.1 % Normal . [facility] Comment on above: Performed By: #### G LULS #### Point of Care testing , Erythrocyte distribution width (RBC) [Ratio] 15.4 % High 11.9-15.3 [facility] Comment on above: Performed By: #### G LULS #### Point of Care testing , Hematocrit (Bld) [Volume fraction] 38.1 % Normal 34.0-46.4 [facility] Comment on above: Performed By: #### G LULS #### Point of Care testing , Hemoglobin (Bld) [Mass/Vol] 12.8 g/dL Normal 11.8-15.4 [facility] Comment on above: Performed By: #### G LULS #### Point of Care testing , Lymphocytes (Bld) [#/Vol] 1.0 10*3/uL Normal 1.00-4.8 [facility] Comment on above: Performed By: #### G LULS #### Point of Care testing , Lymphocytes/100 WBC (Bld) 5.7 % Normal . [facility] Comment on above: Performed By: #### G LULS #### Point of Care testing , MCH (RBC) [Entitic mass] 32.6 pg Normal 24.7-34.3 [facility] Comment on above: Performed By: #### G LULS #### Point of Care testing , MCV (RBC) [Entitic vol] 97.2 fL Normal 80-100 [facility] Comment on above: Performed By: #### G LULS #### Point of Care testing , Mean Corpuscular HGB Conc 33.5 g/dL Normal 32.0-35.0 [facility] Comment on above: Performed By: #### G LULS #### Point of Care testing , Monocytes (Bld) [#/Vol] 1.2 10*3/uL High 0.0-0.8 [facility] Comment on above: Performed By: #### G LULS #### Point of Care testing , Monocytes/100 WBC (Bld) 24.68 % High 0.00-20.00 [facility] Comment on above: Result Comment: For adults in ED, MDW > 20.0 may be associated with a higher risk of sepsis during the first 12 hrs of hospital admission Performed By: #### G LULS #### Point of Care testing , Monocytes/100 WBC (Bld) 7.2 % Normal . [facility] Comment on above: Performed By: #### G LULS #### Point of Care testing , Neutrophils (Bld) [#/Vol] 14.2 10*3/uL High 1.8-7.7 [facility] Comment on above: Performed By: #### G LULS #### Point of Care testing , Neutrophils/100 WBC (Bld) 85.8 % Normal . [facility] Comment on above: Performed By: #### G LULS #### Point of Care testing , NRBC% 0.1 /100{WBC} Normal 0-0.5 [facility] Comment on above: Performed By: #### G MARE #### Point of Care testing , Platelet mean volume (Bld) [Entitic vol] 7.2 fL Normal 6.3-10.7 [facility] Comment on above: Performed By: #### G MARYLS #### Point of Care testing , Platelets (Bld) [#/Vol] 410 10*3/uL Normal 150-450 [facility] Comment on above: Performed By: #### G MARYLS #### Point of Care testing , RBC (Bld) [#/Vol] 3.92 10*6/uL Normal 3.60-5.00 [facility] Comment on above: Performed By: #### G MARYLS #### Point of Care testing , WBC (Bld) [#/Vol] 16.6 10*3/uL High 3.8-11.6 [facility] Comment on above: Performed By: #### G MARE #### Point of Care testing , Creatine Kinaseon 03-10-2023 CK [Catalytic activity/Vol] 23 U/L Low 30-223 [facility] Comment on above: Performed By: #### C BC, BMP, MG #### [address] Creatine kinase [Enzymatic a ctivity/volume] in Serum or PlasmaOrdered By: Lavell Salazar on 03-10-2023 CK [Catalytic activity/Vol] 23 U/L 30-223 [facility] ECG 12 lead ECGon 03-10-2023 ECG 12 lead ECG [facility] [place] [address] Electrocardiograph Report Signed Patient: Christiane Perez MR#: [id number] 2 : 1975 Acct:[id number] Age/Sex: 48 / F ADM Date: 03/10/23 Loc: ER Room: Type: [facility] ER Attending Dr: Ordering Provider: Lavell Salazar, Date of Service: 03/10/23 ECG/ECG 12 lead ECG: Shortness of Breath/Dyspnea Copies to: Test Reason : Blood Pressure : 118/064 mmHG Vent. Rate : 082 BPM Atrial Rate : 082 BPM P-R Int : 172 ms QRS Dur : 098 ms QT Int : 368 ms P-R-T Axes : 038 064 047 degrees QTc Int : 429 ms Normal sinus rhythm Nonspecific ST abnormality Abnormal ECG When compared with ECG of 31-MAR-2021 00:21, ST no longer elevated in Inferior leads QT has shortened Confirmed by Lavell Salazar DO ([id number]) on 03/10/2023 3:09:19 PM Referred By: Electronically Signed By:Lavell Salazar DO Transcribed By: MUS Signed By Lavell Salazar DO 3 1509 Normal [facility] Glucose Poct Glucometerson 0 03-10-2023 Glucose [Mass/Vol] 129 mg/dL Normal [facility] Comment on above: Result Comment: [facility] Glucose Reference Range is dependent on time and content of last meal. Glucose of more than 200 mg/dL in a nonstressed, ambulatory subject supports the diagnosis of Diabetes Mellitus. PERFORMED BY: [facility] [address] [place] [address] PATHOLOGIST MACHINE HAND WAYNE WAKEFIELD M.D. Performed By: #### G LULS #### Point of Care testing , Commemt1 Glu2: Cleaned Meter Normal [facility] Comment on above: Result Comment: PERF ORMED BY: [facility] [address] [place] [address] PATHOLOGIST MACHINE HAND WAYNE WAKEFIELD M.D. Performed By: #### G LULS #### Point of Care testing , Glucose [Mass/Vol] 176 mg/dL Normal [facility] Comment on above: Result Comment: [facility] Glucose Reference Range is dependent on time and content of last meal. Glucose of more than 200 mg/dL in a nonstressed, ambulatory subject supports the diagnosis of Diabetes Mellitus. Performed By: #### G LULS #### Point of Care testing , Hepatic Panelon 03-10-2023 Albumin [Mass/Vol] 3.3 g/dL Low 3.5-5.7 [facility] Comment on above: Performed By: #### C BC, BMP, MG #### [facility] [address] Albumin/Globulin [Mass ratio] 0.9 {ratio} Normal [facility] Comment on above: Performed By: #### C BC, BMP, MG #### [facility] [address] ALP [Catalytic activity/Vol] 110 U/L High 34-104 [facility] Comment on above: Performed By: #### C BC, BMP, MG #### [facility] [address] ALT [Catalytic activity/Vol] 6 U/L Low 7-52 [facility] Comment on above: Performed By: #### C BC, BMP, MG #### [facility] [address] AST [Catalytic activity/Vol] 10 U/L Low 13-39 [facility] Comment on above: Performed By: #### C BC, BMP, MG #### [facility] [address] Bilirubin [Mass/Vol] 0.7 mg/dL Normal 0.3-1.0 [facility] Comment on above: Performed By: #### C BC, BMP, MG #### [facility] [address] [place] [address] Bilirubin,Indirect 0.5 mg/dL Normal [facility] Comment on above: Performed By: #### C BC, BMP, MG #### [facility] [address] Bilirubin.indirect [Mass/Vol] 0.20 mg/dL High 0.03-0.18 [facility] Comment on above: Performed By: #### C BC, BMP, MG #### [facility] [address] Globulin (S) [Mass/Vol] 3.6 g/dL Normal [facility] Comment on above: Performed By: #### C BC, BMP, MG #### [facility] [address] [place] [address] [place] Protein [Mass/Vol] 6.9 g/dL Normal 6.4-8.9 [facility] Comment on above: Performed By: #### C BC, BMP, MG #### [facility] [address] Laboratory - CoagulationOrde red By: Lavell Salazar on 03-10-2023 PT Coag (PPP) [Time] 14.3 s 9.0-12.9 [facility] Lactate [Moles/volume] in Se rum or PlasmaOrdered By: Lavell Salazar on 03-10-2023 Lactate [Moles/Vol] 1.2 mmol/L 0.5-2.2 [facility] Lactic Acidon 03-10-2023 Lactate [Moles/Vol] 1.2 mmol/L Normal 0.5-2.2 [facility] Comment on above: Result Comment: PERF ORMED BY: [place] [address] PATHOLOGIST MACHINE HAND WAYNE WAKEFIELD M.D. Performed By: #### G LUAUGUSTIN #### Point of Care testing , Monocyte distribution width [Entitic volume] in Blood by AutomatedOrdered By: Lavell Salazar on 03-10-2023 Monocyte distribution width Auto (Bld) [Entitic vol] 24.68 % 0.00-20.00 [facility] Comment on above: For adults in ED, W > 20.0 may be associated with a higher risk of sepsis during the first 12 hrs of hospital admission Natriuretic peptide B [Mass/ Vol]Ordered By: Lavell Salazar on 03-10-2023 Natriuretic peptide B (Bld) [Mass/Vol] 46.0 pg/mL 5-100 [facility] Partial Thromboplastin Timeo n 03-10-2023 aPTT Coag (Bld) [Time] 40.2 s High 25.1-36.5 [facility] Comment on above: Result Comment: PERF ORMED BY: [address] [place] [address] PATHOLOGIST MACHINE HAND WAYNE WAKEFIELD M.D. Performed By: #### G MARE #### Point of Care testing , Platelet poor plasma interna tional normalized ratio (INR) by coagulation assay (relatOrdered By: Lavell Salazar on 03-10-2023 INR Coag (PPP) [Relative time] 1.2 {INR} [facility] Comment on above: INR Therapeutic Rang e A) Pre- and Peroperative OAT started two weeks before surgery. NOT HIP SURGERY: 1.5 - 2.5 HIP SURGERY: 2 - 3B) Primary and secondary prevention of venous THROMBOSIS: 2 - 3C) Active venous thrombosis, pulmonary embolismand prevention of recurrent venous thrombosis: 2 - 3D) Prevention of arterial thromboembolismincluding patients with mechanical heart valves: 3 - 4.5 Prothrombin Time INRon 03-10 INR Coag (PPP) [Relative time] 1.2 {INR} Normal [facility] Comment on above: Result Comment: INR Therapeutic Range A) Pre- and Peroperative OAT started two weeks before surgery. NOT HIP SURGERY: 1.5 - 2.5 HIP SURGERY: 2 - 3 B) Primary and secondary prevention of venous THROMBOSIS: 2 - 3 C) Active venous thrombosis, pulmonary embolism and prevention of recurrent venous thrombosis: 2 - 3 D) Prevention of arterial thromboembolism including patients with mechanical heart valves: 3 - 4.5 Performed By: #### G MARE #### Point of Care testing , PT Coag (PPP) [Time] 14.3 s High 9.0-12.9 [facility] Comment on above: Performed By: #### G MARE #### Point of Care testing , Serum or plasma non-glucuron idated bilirubin measurement (mass/volume)Ordered By: Lavell Salazar on 03-10-2023 Bilirubin.indirect [Mass/Vol] 0.5 mg/dL [facility] Troponin I High Sensitivityo n 03-10-2023 Troponin I High Sensitivity 12.8 pg/mL Normal 0.0-15.0 [facility] Comment on above: Result Comment: PERF ORMED BY: [facility] [address] [place] [address] PATHOLOGIST MACHINE HAND WAYNE WAKEFIELD M.D. Performed By: #### C BC, BMP, MG #### [place] [id number] [facility] Troponin I.cardiac [Mass/vol ume] in Serum or Plasma by Detection limit <= 0.01 ng/Ordered By: Lavell Salazar on 03-10-2023 Troponin I.cardiac DL <= 0.01 ng/mL [Mass/Vol] 12.8 pg/mL 0.0-15.0 [facility] XR chest 1V portableon 03-10 XR chest 1V portable [facility] [place] [address] [place], [place] [id number] XRay Report Signed Patient: Christiane Perez MR#: [id number] 2 : 1975 Acct:[id number] Age/Sex: 48 / F ADM Date: 03/10/23 Loc: ER Room: Type: PRE ER Attending Dr: Copies to: Lavell Salazar DO Ordering Provider: Lavell Salazar DO Date of Service: 03/10/23 XR/XR chest 1V portable: Shortness of Breath/Dyspnea SINGLE VIEW CHEST CLINICAL HISTORY: Shortness of breath for one month. Diagnosed with lung abscess 3 days ago. COMPARISON: Chest 03/31/2021 FINDINGS: Cardiomegaly is present. Left upper lobe airspace disease is new when compared to the 2020 study. Right lung is relatively clear. No pneumothorax, large pleural effusion or free air. XR/XR chest 1V portable IMPRESSION: LEFT UPPER LOBE AIRSPACE DISEASE POSSIBLY RELATED TO THE PATIENT'S HISTORY OF LUNG ABSCESS. THIS CAN BE FURTHER EVALUATED BY CT. Impression dictated by: Rodger Johnson Jr., D.OJosue03/10/2023 1:11 PM Dictation Location: [place] [address] Transcribed By: [facility] 03/10/23 131 Dictated By: Rodger Johnson Jr, DO 03/10/231309 Signed By: 03/10/23 131 [facility] Insurance Correspondence Off ice02-19-2023 Insurance Correspondence Office [id number]#1.00CD:12 7 [facility] Quick Strepon 02-14-2023 S. pyogenes Org specific cx Ql (Throat) Negative [facility] Other Quick Strep [facility] Other Insurance Correspondence Off iceon 01-20-2023 Insurance Correspondence Office [id number]#1.00CD:1 27 Normal [facility] CBC AUTO DIFFon 12-01-2022 BASO # 0.0 103/ul Normal 0.0-0.1 [facility] Comment on above: Performed By: #### I NFLUAB #### [facility] [address] [place] [address] Dr. Roscoe Segal Basophils/100 WBC (Bld) 0.6 % Normal 0.2-2.0 [facility] Comment on above: Performed By: #### I NFLUAB #### [facility] [address] [place] [address] Dr. Roscoe Segal EO # 0.2 103/ul Normal 0.0-0.7 [facility] Comment on above: Performed By: #### I NFLUAB #### [facility] [address] [place] [address] [address] Roscoe Segal Eosinophils/100 WBC (Bld) 2.4 % Normal 0.9-7.0 [facility] Comment on above: Performed By: #### I NFLUAB #### [facility] [address] [place] [address] [address] Roscoe Segal Erythrocyte distribution width (RBC) [Ratio] 14.9 % Normal 11.0-15.0 [facility] Comment on above: Performed By: #### I NFLUAB #### [facility] [address] [place] [address] Dr. Roscoe Segal Hematocrit (Bld) [Volume fraction] 44.7 % Normal 36.0-48.0 [facility] Comment on above: Performed By: #### I NFLUAB #### [facility] [address] [place] [address] Dr. Roscoe Segal Hemoglobin (Bld) [Mass/Vol] 14.9 g/dL Normal 12.0-16.0 [facility] Comment on above: Performed By: #### I NFLUAB #### [facility] [address] [place] [address] Dr. Roscoe Segal IG # 0.02 10e3/ul Normal 0.00-0.03 [facility] Comment on above: Performed By: #### I NFLUAB #### [facility] [address] [place] [address] Dr. Roscoe Segal IG % 0.3 % Normal 0.0-0.5 [facility] Comment on above: Performed By: #### I NFLUAB #### [facility] [address] [place] [address] Dr. Roscoe Segal LYMPH # 1.6 103/ul Normal 1.2-3.8 [facility] Comment on above: Performed By: #### I NFLUAB #### [facility] [address] [place] [address] Dr. Roscoe Segal Lymphocytes/100 WBC (Bld) 26.1 % Normal 20.5-60.0 [facility] Comment on above: Performed By: #### I NFLUAB #### [facility] [address] [place] [address] Dr. Roscoe Segal MANUAL DIFF REQ NO Normal [facility] Comment on above: Performed By: #### I NFLUAB #### [facility] [address] [place] [address] Dr. Roscoe Segal MCH (RBC) [Entitic mass] 32.3 pg Normal 26.7-34.0 [facility] Comment on above: Performed By: #### I NFLUAB #### [facility] [address] [place] [address] Dr. Roscoe Segal MCHC (RBC) [Mass/Vol] 33.3 g/dL Normal 29.9-35.2 [facility] Comment on above: Performed By: #### I NFLUAB #### [facility] [address] [place] [address] Dr. Roscoe Segal MCV (RBC) [Entitic vol] 96.8 fL Normal 81.0-99.[address] [facility] Comment on above: Performed By: #### I NFLUAB #### [facility] [address] [place] [address] Dr. Roscoe Segal MONO # 0.6 103/ul Normal 0.3-0.8 [facility] Comment on above: Performed By: #### I NFLUAB #### [facility] [address] [place] [address] Dr. Roscoe Segal Monocytes/100 WBC (Bld) 9.1 % Normal 1.7-12.[address] [facility] Comment on above: Performed By: #### I NFLUAB #### [facility] [address] [place] [address] Dr. Roscoe Segal NEUT # 3.8 103/ul Normal 1.4-6.[address] [facility] Comment on above: Performed By: #### I NFLUAB #### [facility] [address] [place] [address] Dr. Roscoe Segal Neutrophils/100 WBC (Bld) 61.5 % Normal 43.0-75.[address] [facility] Comment on above: Performed By: #### I NFLUAB #### [facility] [address] [place] [address] Dr. Roscoe Segal Platelet mean volume (Bld) [Entitic vol] 8.5 fL Critically low 9.5-13.[address] [facility] Comment on above: Performed By: #### I NFLUAB #### [facility] [address] [place] [address] Dr. Roscoe Segal PLT 268 103/ul Normal 150-[address] [facility] Comment on above: Performed By: #### I NFLUAB #### [facility] [address] [place] [address] Dr. Roscoe Segal RBC 4.62 106/ul Normal 4.20-5.[address] [facility] Comment on above: Performed By: #### I NFLUAB #### [facility] [address] [place] [address] Dr. Roscoe Segal WBC 6.3 103/ul Normal 4.0-11.0 [facility] Comment on above: Performed By: #### I NFLUAB #### [facility] [address] [place] [address] Dr. Roscoe Segal GLYCOHEMOGLOBIN A1Con 2022 ADA RECOMMENDATION SEE BELOW Normal [facility] Comment on above: Result Comment: ADA RECOMMENDED LIMIT 4.0 - 6.0 ADA THERAPEUTIC TARGET < 7.0 ACTION SUGGESTED > 7.0 Performed By: #### C BC #### [facility] [address] [place] [address] Dr. Roscoe Segal Glucose [Mass/Vol] 137 mg/dL Normal [facility] Comment on above: Performed By: #### C BC #### [facility] [address] [place] [address] Dr. Roscoe Segal HbA1c (Bld) [Mass fraction] 6.4 % Critically high 4.5-6.2 [facility] Comment on above: Performed By: #### C BC #### [facility] [address] [place] [address] Dr. Roscoe Segal LIPID PROFILEon 12-01-2022 CHOL-HDL RATIO NORM SEE BELOW Normal [facility] Comment on above: Result Comment: 3.3 - 4.4 LOW RISK 4.4 - 7.1 AVERAGE RISK 7.1 - 11.0 MODERATE RISK >11.0 HIGH RISK Performed By: #### I NFLUAB #### [facility] [address] [place] [address] Dr. Roscoe Segal Cholesterol [Mass/Vol] 116 mg/dL Normal <=200 [facility] Comment on above: Performed By: #### I NFLUAB #### [facility] [address] [place] [address] [address] Roscoe Segal Cholesterol in HDL [Mass/Vol] 58 mg/dL Normal 40-60 [facility] Comment on above: Performed By: #### I NFLUAB #### [facility] [address] [place] [address] Dr. Roscoe Segal Cholesterol in LDL [Mass/Vol] 43.4 mg/dL Normal [facility] Comment on above: Performed By: #### I NFLUAB #### [facility] [address] [place] [address] [address] Roscoe Segal Cholesterol.total/Chol esterol in HDL [Mass ratio] 2.0 {ratio} Normal [facility] Comment on above: Performed By: #### I NFLUAB #### [facility] [address] [place] [address] [address] Roscoe Segal HDL NORMAL > or = 60 mg/dl - LO W CARDIOVASCULAR RISK <40 mg/dl - HIGH CARDIOVASCULAR RISK Normal [facility] Comment on above: Performed By: #### I NFLUAB #### [facility] [address] [place] [address] [address] Roscoe Segal LDL CALC NORMAL SEE BELOW Normal [facility] Comment on above: Result Comment: <100 mg/dl OPTIMAL 100 - 129 mg/dl NEAR OR ABOVE OPTIMAL 130 - 159 mg/dl BORDERLINE HIGH 160 - 189 mg/dl HIGH >190 mg/dl VERY HIGH Performed By: #### I NFLUAB #### [facility] [address] [place] [address] [address] Roscoe Segal Triglyceride [Mass/Vol] 73 mg/dL Normal <=150 [facility] Comment on above: Performed By: #### I NFLUAB #### [facility] [address] [place] [address] [address] Roscoe Segal VLDL CALC 14.6 mg/dL Normal [facility] Comment on above: Performed By: #### I NFLUAB #### [facility] [address] [place] [address] [address] Roscoe Segal PROF 14(COMP METB)on 023 Albumin [Mass/Vol] 2.9 g/dL Critically low 3.4-5.0 [facility] Comment on above: Performed By: #### P OCGLUC #### [facility] [address] [place] [address] [address] Roscoe Segal Albumin/Globulin [Mass ratio] 0.8 {ratio} Normal [facility] Comment on above: Performed By: #### P OCGLUC #### [facility] [address] [place] [address] [address] Roscoe Segal ALP [Catalytic activity/Vol] 114 U/L Normal 46-116 [facility] Comment on above: Performed By: #### P OCGLUC #### [facility] [address] [place] [address] [address] Roscoe Segal ALT [Catalytic activity/Vol] 15 U/L Normal 14-59 [facility] Comment on above: Performed By: #### P OCGLUC #### [facility] [address] [place] [address] [address] Roscoe Segal Anion gap [Moles/Vol] 14.3 mmol/L Normal [facility] Comment on above: Performed By: #### P OCGLUC #### [facility] [address] [place] [address] [address] Roscoe Segal AST [Catalytic activity/Vol] 10 U/L Critically low 15-37 [facility] Comment on above: Performed By: #### P OCGLUC #### [facility] [address] [place] [address] [address] Roscoe Segal Bilirubin [Mass/Vol] 0.3 mg/dL Normal 0.2-1.0 [facility] Comment on above: Performed By: #### P OCGLUC #### [facility] [address] [place] [address] [address] Roscoe Segal Calcium [Mass/Vol] 8.7 mg/dL Normal 8.5-10.1 [facility] Comment on above: Performed By: #### P OCGLUC #### [facility] [address] [place] [address] [address] Roscoe Segal Chloride [Moles/Vol] 104 mmol/L Normal 98-107 [facility] Comment on above: Performed By: #### P OCGLUC #### [facility] [address] [place] [address] [address] Roscoe Segal CO2 [Moles/Vol] 23.5 mmol/L Normal 21.0-32.0 [facility] Comment on above: Performed By: #### P OCGLUC #### [facility] [address] [place] [address] [address] Roscoe Segal Creatinine [Mass/Vol] 0.83 mg/dL Normal 0.55-1.02 [facility] Comment on above: Performed By: #### P OCGLUC #### [facility] [address] [place] [address] Dr. Roscoe Segal EGFR-AF BURKINAN >60 Normal >=60 [facility] Comment on above: Performed By: #### P OCGLUC #### [facility] [address] [place] [address] [address] Roscoe Segal EGFR-NON AF BURKINAN >60 Normal >=60 [facility] Comment on above: Performed By: #### P OCGLUC #### [facility] [address] [place] [address] Dr. Roscoe Segal Globulin (S) [Mass/Vol] 3.5 g/dL Normal [facility] Comment on above: Performed By: #### P OCGLUC #### [facility] [address] [place] [address] Dr. Roscoe Segal Glucose [Mass/Vol] 235 mg/dL Critically high 74-106 [facility] Comment on above: Performed By: #### P OCGLUC #### [facility] [address] [place] [address] Dr. Roscoe Segal Potassium [Moles/Vol] 3.8 mmol/L Normal 3.5-5.1 [facility] Comment on above: Performed By: #### P OCGLUC #### [facility] [address] [place] [address] Dr. Roscoe Segal Protein [Mass/Vol] 6.4 g/dL Normal 6.4-8.2 [facility] Comment on above: Performed By: #### P OCGLUC #### [facility] [address] [place] [address] Dr. Roscoe Segal Sodium [Moles/Vol] 138 mmol/L Normal 136-145 [facility] Comment on above: Performed By: #### P OCGLUC #### [facility] [address] [place] [address] Dr. Roscoe Segal Urea nitrogen [Mass/Vol] 9.0 mg/dL Normal 7.0-18.0 [facility] Comment on above: Performed By: #### P OCGLUC #### [facility] [address] [place] [address] Dr. Roscoe Segal Urea nitrogen/Creatinine [Mass ratio] 10.8 mg/mg Normal [facility] Comment on above: Performed By: #### P OCGLUC #### [facility] [address] [place] [address] Dr. Roscoe Segal CARDIAC VICK ADMITon 023 CK [Catalytic activity/Vol] 43 U/L Normal 26-[address] [facility] Comment on above: Performed By: #### I NFLUAB #### [facility] [address] [place] [address] Dr. Roscoe Segal CK.MB [Mass/Vol] 2.22 ng/mL Normal <=3.60 [facility] Comment on above: Performed By: #### I NFLUAB #### [facility] [address] [place] [address] Dr. Roscoe Segal GWEN 58 ng/mL Normal 9-82 [facility] Comment on above: Performed By: #### I NFLUAB #### [facility] [address] [place] [address] Dr. Roscoe Segal CBC AUTO DIFFon 09-11-2022 BASO # 0.1 103/ul Normal 0.0-0.1 [facility] Comment on above: Performed By: #### P OCGLUC #### [facility] [address] [place] [address] Dr. Roscoe Segal Basophils/100 WBC (Bld) 0.8 % Normal 0.2-2.[address] [facility] Comment on above: Performed By: #### P OCGLUC #### [facility] [address] [place] [address] Dr. Roscoe Segal EO # 0.2 103/ul Normal 0.0-0.7 [facility] Comment on above: Performed By: #### P OCGLUC #### [facility] [address] [place] [address] Dr. Roscoe Segal Eosinophils/100 WBC (Bld) 2.1 % Normal 0.9-7.0 [facility] Comment on above: Performed By: #### P OCGLUC #### [facility] [address] [place] [address] Dr. Roscoe Segal Erythrocyte distribution width (RBC) [Ratio] 14.2 % Normal 11.0-15.0 [facility] Comment on above: Performed By: #### P OCGLUC #### [facility] [address] [place] [address] Dr. Roscoe Segal Hematocrit (Bld) [Volume fraction] 48.4 % Critically high 36.0-48.0 [facility] Comment on above: Performed By: #### P OCGLUC #### [facility] [address] [place] [address] Dr. Roscoe Segal Hemoglobin (Bld) [Mass/Vol] 15.0 g/dL Normal 12.0-16.0 [facility] Comment on above: Performed By: #### P OCGLUC #### [facility] [address] [place] [address] Dr. Roscoe Segal IG # 0.02 10e3/ul Normal 0.00-0.03 [facility] Comment on above: Performed By: #### P OCGLUC #### [facility] [address] [place] [address] Dr. Roscoe Segal IG % 0.2 % Normal 0.0-0.5 [facility] Comment on above: Performed By: #### P OCGLUC #### [facility] [address] [place] [address] Dr. Roscoe Segal LYMPH # 2.2 103/ul Normal 1.2-3.[address] [facility] Comment on above: Performed By: #### P OCGLUC #### [facility] [address] [place] [address] Dr. Roscoe Segal Lymphocytes/100 WBC (Bld) 26.8 % Normal 20.5-60.0 [facility] Comment on above: Performed By: #### P OCGLUC #### [facility] [address] [place] [address] Dr. Roscoe Segal MANUAL DIFF REQ NO Normal [facility] Comment on above: Performed By: #### P OCGLUC #### [facility] [address] [place] [address] Dr. Roscoe Segal MCH (RBC) [Entitic mass] 32.8 pg Normal 26.7-34.[address] [facility] Comment on above: Performed By: #### P OCGLUC #### [facility] [address] [place] [address] Dr. Roscoe Segal MCHC (RBC) [Mass/Vol] 31.0 g/dL Normal 29.9-35.[address] [facility] Comment on above: Performed By: #### P OCGLUC #### [facility] [address] [place] [address] Dr. Roscoe Segal MCV (RBC) [Entitic vol] 105.7 fL Critically high 81.0-99.[address] [facility] Comment on above: Result Comment: Slig ht Macrocytosis Present Performed By: #### P OCGLUC #### [facility] [address] [place] [address] Dr. Roscoe Segal MONO # 0.7 103/ul Normal 0.3-0.[address] [facility] Comment on above: Performed By: #### P OCGLUC #### [facility] [address] [place] [address] Dr. Roscoe Segal Monocytes/100 WBC (Bld) 8.9 % Normal 1.7-12.[address] [facility] Comment on above: Performed By: #### P OCGLUC #### [facility] [address] [place] [address] Dr. Roscoe Segal NEUT # 5.1 103/ul Normal 1.4-6.[address] [facility] Comment on above: Performed By: #### P OCGLUC #### [facility] [address] [place] [address] Dr. Roscoe Segal Neutrophils/100 WBC (Bld) 61.2 % Normal 43.0-75.[address] [facility] Comment on above: Performed By: #### P OCGLUC #### [facility] [address] [address] [address] Roscoe Segal Platelet mean volume (Bld) [Entitic vol] 8.7 fL Critically low 9.5-13.5 [facility] Comment on above: Performed By: #### P OCGLUC #### [facility] [address] [address] [address] Roscoe Segal PLT 382 103/ul Normal 150-450 [facility] Comment on above: Performed By: #### P OCGLUC #### [facility] [address] [address] [address] Roscoe Segal RBC 4.58 106/ul Normal 4.20-5.40 [facility] Comment on above: Performed By: #### P OCGLUC #### [facility] [address] [address] [address] Roscoe Segal WBC 8.3 103/ul Normal 4.0-11.0 [facility] Comment on above: Performed By: #### P OCGLUC #### [facility] [address] [address] [address] Roscoe Segal GLUCOSE BLOODon 09-11-2022 Glucose [Mass/Vol] 39 mg/dL Critically low 74-106 [facility] Comment on above: Performed By: #### P OCGLUC #### [facility] [address] [address] [address] Roscoe Segal POINT OF CARE GLUCOSEon 08-17 Glucose [Mass/Vol] 103 mg/dL Normal 74-106 [facility] Comment on above: Performed By: #### P OCGLUC #### [facility] [address] [address] [address] Roscoe Segal Glucose [Mass/Vol] 284 mg/dL Critically high 74-106 [facility] Comment on above: Performed By: #### P OCGLUC #### [facility] [address] [address] [address] Roscoe Segal Glucose [Mass/Vol] 104 mg/dL Normal 74-106 [facility] Comment on above: Performed By: #### P OCGLUC #### [facility] [address] [address] [address] Roscoe Segal Glucose [Mass/Vol] 94 mg/dL Normal 74-106 [facility] Comment on above: Performed By: #### I NFLUAB #### [facility] [address] [place] [address] Dr. Roscoe Segal Glucose [Mass/Vol] 136 mg/dL Critically high 74-106 [facility] Comment on above: Performed By: #### P OCGLUC #### [facility] [address] [address] [address] Roscoe Segal Glucose [Mass/Vol] 181 mg/dL Critically high 74-106 [facility] Comment on above: Performed By: #### P OCGLUC #### [facility] [address] [place] [address] Dr. Roscoe Segal Glucose [Mass/Vol] 103 mg/dL Normal 74-106 [facility] Comment on above: Performed By: #### C BC #### [facility] [address] [place] [address] Dr. Roscoe Segal Glucose [Mass/Vol] 81 mg/dL Normal 74-106 [facility] Comment on above: Performed By: #### P OCGLUC #### [facility] [address] [place] [address] Dr. Roscoe Segal Glucose [Mass/Vol] 52 mg/dL Critically low 74-106 [facility] Comment on above: Performed By: #### P OCGLUC #### [facility] [address] [place] [address] Dr. Roscoe Segal Glucose [Mass/Vol] 38 mg/dL Critically low 74-106 [facility] Comment on above: Result Comment: Will Repeat Test Performed By: #### C BC #### [facility] [address] [place] [address] Dr. Roscoe Segal Glucose [Mass/Vol] 67 mg/dL Critically low 74-106 [facility] Comment on above: Performed By: #### P OCGLUC #### [facility] [address] [place] [address] Dr. Roscoe Segal PROF CHEM 8 (BAS METB)on Anion gap [Moles/Vol] 13.1 mmol/L Normal [facility] Comment on above: Performed By: #### C BC #### [facility] [address] [address] [address] Roscoe Segal Calcium [Mass/Vol] 9.0 mg/dL Normal 8.5-10.1 [facility] Comment on above: Performed By: #### C BC #### [facility] [address] [address] [address] Roscoe Segal Chloride [Moles/Vol] 106 mmol/L Normal 98-107 [facility] Comment on above: Performed By: #### C BC #### [facility] [address] [place] [address] Dr. Roscoe Segal CO2 [Moles/Vol] 25.0 mmol/L Normal 21.0-32.0 [facility] Comment on above: Performed By: #### C BC #### [facility] [address] [place] [address] Dr. Roscoe Segal Creatinine [Mass/Vol] 0.86 mg/dL Normal 0.55-1.02 [facility] Comment on above: Performed By: #### C BC #### [facility] [address] [place] [address] Dr. Roscoe Segal EGFR-AF BURKINAN >60 Normal >=60 [facility] Comment on above: Performed By: #### C BC #### [facility] [address] [place] [address] Dr. Roscoe Segal EGFR-NON AF BURKINAN >60 Normal >=60 [facility] Comment on above: Performed By: #### C BC #### [facility] [address] [place] [address] Dr. Roscoe Segal Glucose [Mass/Vol] 36 mg/dL Critically low 74-106 [facility] Comment on above: Performed By: #### C BC #### [facility] [address] [place] [address] Dr. Roscoe Segal Potassium [Moles/Vol] 4.1 mmol/L Normal 3.5-5.1 [facility] Comment on above: Performed By: #### C BC #### [facility] [address] [address] [address] Roscoe Segal Sodium [Moles/Vol] 140 mmol/L Normal 136-145 [facility] Comment on above: Performed By: #### C BC #### [facility] [address] [address] [address] Roscoe Segal Urea nitrogen [Mass/Vol] 10.0 mg/dL Normal 7.0-18.0 [facility] Comment on above: Performed By: #### C BC #### [facility] [address] [address] [address] Roscoe Segal Urea nitrogen/Creatinine [Mass ratio] 11.6 mg/mg Normal [facility] Comment on above: Performed By: #### C BC #### [facility] [address] [place] [address] Dr. Roscoe Segal TROPONIN, HIGH SENSITIVITYon 09-11-2022 HSTROP 7.0 pg/mL Normal 4.0-51.3 [facility] Comment on above: Result Comment: CUT- OFF POINTS HAVE BEEN ESTABLISHED BASED ON THE FOURTH UNIVERSAL DEFINITIONS OF MYOCARDIAL INFARCTION. THE UPPER REFERENCE LIMIT (URL) OF TROPONIN, DEFINED THE 99TH PERCENTILE OF cTnI DISTRIBUTION IN A REFERENCE POPULATION, HAS BEEN CONFIRMED THE DECISION THRESHOLD FOR [place] DIAGNOSIS. Performed By: #### I NFLUAB #### [facility] [address] [place] [address] Dr. Roscoe Segal INFLUENZA A AND B AGon 07-24 INFLUANEGH SEE BELOW Normal [facility] Comment on above: Result Comment: Nega tive for Flu A protein angiten. Infection due to Flu A cannot be ruled out. Flu A angiten in the sample may be below the detection limit of the test. Performed By: #### I NFLUAB #### [facility] [address] [place] [address] Dr. Roscoe Segal INFLUBNEGH SEE BELOW Normal [facility] Comment on above: Result Comment: Nega tive for Flu B protein antigen. Infection due to Flu B cannot be ruled out. Flu B antigen in the sample may be below the detection limit of the test. Performed By: #### I NFLUAB #### [facility] [address] [address] [address] Roscoe Segal INFLUENZA A AG Negative Normal NEGATIVE SEE COMMENT [facility] Comment on above: Performed By: #### I NFLUAB #### [facility] [address] [address] [address] Roscoe Segal INFLUENZA B AG Negative Normal NEGATIVE SEE COMMENT [facility] Comment on above: Performed By: #### I NFLUAB #### [facility] [address] [address] [address] Roscoe Segal INTERNAL CONTROLS Within Normal Limits Normal Wi thin Normal Limits [facility] Comment on above: Performed By: #### I NFLUAB #### [facility] [address] [place] [address] Dr. Roscoe Segal XR CHEST 1 Von 07-24-2022 XR CHEST 1 V EXAMINATION: XR CHES T 1 V HISTORY: SHORTNESS OF BREATH COMPARISON: 05/25/2022 TECHNIQUE: AP portable FINDINGS: LUNGS: Mild bibasilar opacities. The upper lung zones are clear VASCULATURE: No increased pulmonary vasculature. PLEURA: No pneumothorax, effusion, or pleural thickening. CARDIAC: No cardiomegaly or cardiac silhouette abnormality. MEDIASTINUM: No visible mass or adenopathy. BONES: No fracture or visible bone lesion. OTHER: Negative. IMPRESSION: Mild bibasilar infiltrates Electronically authenticated by: SHAJI LIMON Date: 2022-07-24 15:26 Normal [facility] XR CHEST 2 Von 05-25-2022 XR CHEST 2 V EXAMINATION: XR CHES T 2 V HISTORY: Chronic obstructive lung disease , shortness of breath COMPARISON: XR chest 04/27/2022 FINDINGS: LUNGS: No significant pulmonary parenchymal abnormalities. VASCULATURE: No increased pulmonary vasculature. PLEURA: No pneumothorax, effusion, or pleural thickening. CARDIAC: No cardiomegaly or cardiac silhouette abnormality. MEDIASTINUM: No visible mass or adenopathy. BONES: No fracture or visible bone lesion. OTHER: Negative. IMPRESSION: 1. No acute cardiopulmonary process. Clearing of previously seen lingular infiltrates. Electronically authenticated by: GERMAINE FARRELL Date: 2022-05-25 16:25 Normal [facility] BLOOD GASES BTYon 04-27-2022 02 MODE NASAL CANNULA Normal [facility] Comment on above: Performed By: #### P OCGLUC #### [facility] [address] [address] [address] Roscoe Segal ALLENS TEST Positive [facility] Comment on above: Performed By: #### P OCGLUC #### [facility] [address] [address] [address] Roscoe Segal Base excess Calc (Bld) [Moles/Vol] -1.5000 mmol/L Normal -2.0-2.0 [facility] Comment on above: Performed By: #### P OCGLUC #### [facility] [address] [address] [address] Roscoe Segal BIPAP PRESSURE [facility] Comment on above: Performed By: #### P OCGLUC #### [facility] [address] [address] [address] Roscoe Segal CPAP [facility] Comment on above: Performed By: #### P OCGLUC #### [facility] [address] [address] [address] Roscoe Segal FIO2 [facility] Comment on above: Performed By: #### P OCGLUC #### [facility] [address] [address] [address] Roscoe Segal HCO3 (Bld) [Moles/Vol] 23.2 mmol/L Normal 22.0-26.0 [facility] Comment on above: Performed By: #### P OCGLUC #### [facility] [address] [address] [address] Roscoe Segal LPM 3 [facility] Comment on above: Performed By: #### P OCGLUC #### [facility] [address] [address] [address] Roscoe Segal MINUTE VOLUME Normal [facility] Comment on above: Performed By: #### P OCGLUC #### [facility] [address] [address] [address] Roscoe Segal Oxygen (Bld) [Partial pressure] 76.4 mm[Hg] Critically low 80.0-100.0 [facility] Comment on above: Performed By: #### P OCGLUC #### [facility] [address] [place] [address] Dr. Roscoe Segal Oxygen saturation in Blood 94.8 % Critically low 95.0-100.0 [facility] Comment on above: Performed By: #### P OCGLUC #### [facility] [address] [place] [address] Dr. Roscoe Segal PCO2 39.5 mmHg Normal 35.0-45.0 [facility] Comment on above: Performed By: #### P OCGLUC #### [facility] [address] [place] [address] Dr. Roscoe Segal [facility] Comment on above: Performed By: #### P OCGLUC #### [facility] [address] [place] [address] Dr. Roscoe Segal pH (Bld) 7.384 [pH] Normal 7.350-7.45 0 [facility] Comment on above: Performed By: #### P OCGLUC #### [facility] [address] [place] [address] Dr. Roscoe Segal [facility] Comment on above: Performed By: #### P OCGLUC #### [facility] [address] [place] [address] Dr. Roscoe Segal [facility] Comment on above: Performed By: #### P OCGLUC #### [facility] [address] [place] [address] Dr. Roscoe Segal PUNCTURE SITE LR [facility] Comment on above: Performed By: #### P OCGLUC #### [facility] [address] [place] [address] Dr. Roscoe Segal RATE [facility] Comment on above: Performed By: #### P OCGLUC #### [facility] [address] [place] [address] Dr. Roscoe Segal VENT MODE [facility] Comment on above: Performed By: #### P OCGLUC #### [facility] [address] [address] [address] Roscoe Segal [place] Normal [facility] Comment on above: Performed By: #### P OCGLUC #### [facility] [address] [place] [address] Dr. Roscoe Segal BNPon 04-27-2022 Natriuretic peptide B (Bld) [Mass/Vol] 282.0 pg/mL Normal <=450.0 [facility] Comment on above: Performed By: #### P OCGLUC #### [facility] [address] [place] [address] Dr. Roscoe Segal CBC AUTO DIFFon 04-27-2022 BASO # 0.0 103/ul Normal 0.0-0.1 [facility] Comment on above: Performed By: #### P OCGLUC #### [facility] [address] [place] [address] Dr. Roscoe Segal Basophils/100 WBC (Bld) 0.2 % Normal 0.2-2.0 [facility] Comment on above: Performed By: #### P OCGLUC #### [facility] [address] [place] [address] Dr. Roscoe Segal EO # 0.0 103/ul Normal 0.0-0.7 [facility] Comment on above: Performed By: #### P OCGLUC #### [facility] [address] [place] [address] Dr. Roscoe Segal Eosinophils/100 WBC (Bld) 0.0 % Critically low 0.9-7.0 [facility] Comment on above: Performed By: #### P OCGLUC #### [facility] [address] [place] [address] Dr. Roscoe Segal Erythrocyte distribution width (RBC) [Ratio] 14.1 % Normal 11.0-15.0 [facility] Comment on above: Performed By: #### P OCGLUC #### [facility] [address] [place] [address] Dr. Roscoe Segal Hematocrit (Bld) [Volume fraction] 39.4 % Normal 36.0-48.0 [facility] Comment on above: Performed By: #### P OCGLUC #### [facility] [address] [address] [address] Roscoe Segal Hemoglobin (Bld) [Mass/Vol] 13.0 g/dL Normal 12.0-16.0 [facility] Comment on above: Performed By: #### P OCGLUC #### [facility] [address] [place] [address] Dr. Roscoe Segal IG # 0.14 10e3/ul Critically high 0.00-0.03 [facility] Comment on above: Performed By: #### P OCGLUC #### [facility] [address] [place] [address] Dr. Roscoe Segal IG % 1.0 % Critically high 0.0-0.5 [facility] Comment on above: Performed By: #### P OCGLUC #### [facility] [address] [place] [address] Dr. Roscoe Segal LYMPH # 1.4 103/ul Normal 1.2-3.8 [facility] Comment on above: Performed By: #### P OCGLUC #### [facility] [address] [place] [address] Dr. Roscoe Segal Lymphocytes/100 WBC (Bld) 9.5 % Critically low 20.5-60.0 [facility] Comment on above: Performed By: #### P OCGLUC #### [facility] [address] [place] [address] Dr. Roscoe Segal MANUAL DIFF REQ NO Normal [facility] Comment on above: Performed By: #### P OCGLUC #### [facility] [address] [place] [address] Dr. Roscoe Segal MCH (RBC) [Entitic mass] 32.3 pg Normal 26.7-34.0 [facility] Comment on above: Performed By: #### P OCGLUC #### [facility] [address] [place] [address] Dr. Roscoe Segal MCHC (RBC) [Mass/Vol] 33.0 g/dL Normal 29.9-35.2 [facility] Comment on above: Performed By: #### P OCGLUC #### [facility] [address] [address] [address] Roscoe Segal MCV (RBC) [Entitic vol] 98.0 fL Normal 81.0-99.0 [facility] Comment on above: Performed By: #### P OCGLUC #### [facility] [address] [place] [address] Dr. Roscoe Segal MONO # 0.6 103/ul Normal 0.3-0.8 [facility] Comment on above: Performed By: #### P OCGLUC #### [facility] [address] [place] [address] Dr. Roscoe Segal Monocytes/100 WBC (Bld) 4.3 % Normal 1.7-12.0 [facility] Comment on above: Performed By: #### P OCGLUC #### [facility] [address] [place] [address] Dr. Roscoe Segal NEUT # 12.1 103/ul Critically high 1.4-6.5 [facility] Comment on above: Performed By: #### P OCGLUC #### [facility] [address] [place] [address] Dr. Roscoe Segal Neutrophils/100 WBC (Bld) 85.0 % Critically high 43.0-75.0 [facility] Comment on above: Performed By: #### P OCGLUC #### [facility] [address] [place] [address] Dr. Roscoe Segal Platelet mean volume (Bld) [Entitic vol] 8.9 fL Critically low 9.5-13.[address] [facility] Comment on above: Performed By: #### P OCGLUC #### [facility] [address] [place] [address] Dr. Roscoe Segal PLT 362 103/ul Normal 150-[address] [facility] Comment on above: Performed By: #### P OCGLUC #### [facility] [address] [place] [address] Dr. Roscoe Segal RBC 4.02 106/ul Critically low 4.20-5.40 [facility] Comment on above: Performed By: #### P OCGLUC #### [facility] [address] [address] [address] Roscoe Segal WBC 14.2 103/ul Critically high 4.0-11.0 [facility] Comment on above: Performed By: #### P OCGLUC #### [facility] [address] [address] [address] Roscoe Segal D-DIMERon 04-27-2022 D-DIMER 0.29 mg/L FEU Normal <=0.59 [facility] Comment on above: Performed By: #### D DIM #### [facility] [address] [place] [address] Dr. Roscoe Segal D-DIMER COMMENTS SEE BELOW Normal [facility] Comment on above: Result Comment: Incr eases in D-Dimer concentration observed with thromboembolic events can be variable due to localization, size, and age of the thrombus. Therefore, a thromboembolic event cannot be diagnosed with certainty on the basis of the reference range. D-Dimers may also be elevated for a variety of disorders including: advanced age, , coronary disease, cancer, liver disease, infection, inflammation, hematoma, DIC, trauma, post-surgery, diabetes, thrombolytic or anticoagulant therapy, stress, and generalized hospitalization. Performed By: #### D DIM #### [facility] [address] [place] [address] Dr. Roscoe Segal LACTATE/LACTIC ACIDon 2021 Lactate [Moles/Vol] 2.1 mmol/L Critically high 0.4-1.9 [facility] Comment on above: Performed By: #### P OCGLUC #### [facility] [address] [place] [address] Dr. Roscoe Segal PROF 14(COMP METB)on 022 Albumin [Mass/Vol] 3.0 g/dL Critically low 3.4-5.0 [facility] Comment on above: Performed By: #### P OCGLUC #### [facility] [address] [place] [address] Dr. Roscoe Segal Albumin/Globulin [Mass ratio] 0.8 {ratio} Normal [facility] Comment on above: Performed By: #### P OCGLUC #### [facility] [address] [address] [address] Roscoe Segal ALP [Catalytic activity/Vol] 77 U/L Normal 46-116 [facility] Comment on above: Performed By: #### P OCGLUC #### [facility] [address] [address] [address] Roscoe Segal ALT [Catalytic activity/Vol] 14 U/L Normal 14-59 [facility] Comment on above: Performed By: #### P OCGLUC #### [facility] [address] [address] [address] Roscoe Segal Anion gap [Moles/Vol] 13.4 mmol/L Normal [facility] Comment on above: Performed By: #### P OCGLUC #### [facility] [address] [address] [address] Roscoe Segal AST [Catalytic activity/Vol] 7 U/L Critically low 15-37 [facility] Comment on above: Performed By: #### P OCGLUC #### [facility] [address] [address] [address] Roscoe Segal Bilirubin [Mass/Vol] 0.1 mg/dL Critically low 0.2-1.0 [facility] Comment on above: Performed By: #### P OCGLUC #### [facility] [address] [address] [address] Roscoe Segal Calcium [Mass/Vol] 8.9 mg/dL Normal 8.5-10.1 [facility] Comment on above: Performed By: #### P OCGLUC #### [facility] [address] [address] [address] Roscoe Segal Chloride [Moles/Vol] 105 mmol/L Normal 98-107 [facility] Comment on above: Performed By: #### P OCGLUC #### [facility] [address] [address] [address] Roscoe Segal CO2 [Moles/Vol] 21.8 mmol/L Normal 21.0-32.0 [facility] Comment on above: Performed By: #### P OCGLUC #### [facility] [address] [address] [address] Roscoe Segal Creatinine [Mass/Vol] 0.94 mg/dL Normal 0.55-1.02 [facility] Comment on above: Performed By: #### P OCGLUC #### [facility] [address] [address] [address] Roscoe Segal EGFR-AF BURKINAN >60 Normal >=60 [facility] Comment on above: Performed By: #### P OCGLUC #### [facility] [address] [address] [address] Roscoe Segal EGFR-NON AF BURKINAN >60 Normal >=60 [facility] Comment on above: Performed By: #### P OCGLUC #### [facility] [address] [address] [address] Roscoe Segal Globulin (S) [Mass/Vol] 3.7 g/dL Normal [facility] Comment on above: Performed By: #### P OCGLUC #### [facility] [address] [address] [address] Roscoe Segal Glucose [Mass/Vol] 283 mg/dL Critically high 74-106 [facility] Comment on above: Performed By: #### P OCGLUC #### [facility] [address] [address] [address] Roscoe Segal Potassium [Moles/Vol] 4.2 mmol/L Normal 3.5-5.1 [facility] Comment on above: Performed By: #### P OCGLUC #### [facility] [address] [address] [address] Roscoe Segal Protein [Mass/Vol] 6.7 g/dL Normal 6.4-8.2 [facility] Comment on above: Performed By: #### P OCGLUC #### [facility] [address] [address] [address] Roscoe Segal Sodium [Moles/Vol] 136 mmol/L Normal 136-145 [facility] Comment on above: Performed By: #### P OCGLUC #### [facility] [address] [address] [address] Roscoe Segal Urea nitrogen [Mass/Vol] 16.0 mg/dL Normal 7.0-18.[address] [facility] Comment on above: Performed By: #### P OCGLUC #### [facility] [address] [address] [address] Roscoe Segal Urea nitrogen/Creatinine [Mass ratio] 17.0 mg/mg Normal [facility] Comment on above: Performed By: #### P OCGLUC #### [facility] [address] [address] [address] Roscoe Segal TROPONIN, HIGH SENSITIVITYon 04-27-2022 HSTROP 7.2 pg/mL Normal 4.0-51.[address] [facility] Comment on above: Result Comment: CUT- OFF POINTS HAVE BEEN ESTABLISHED BASED ON THE FOURTH UNIVERSAL DEFINITIONS OF MYOCARDIAL INFARCTION. THE UPPER REFERENCE LIMIT (URL) OF TROPONIN, DEFINED THE 99TH PERCENTILE OF cTnI DISTRIBUTION IN A REFERENCE POPULATION, HAS BEEN CONFIRMED THE DECISION THRESHOLD FOR [place] DIAGNOSIS. Performed By: #### P OCGLUC #### [facility] [address] [address] [address] Roscoe Segal XR CHEST 1 Von 04-27-2022 XR CHEST 1 V EXAMINATION: XR CHES T 1 V HISTORY: SHORTNESS OF BREATH COMPARISON: XR chest 04/25/2022 FINDINGS: LUNGS: Underexpanded lungs with mild haziness and stranding within lung bases, left greater than right. VASCULATURE: No increased pulmonary vasculature. PLEURA: No pneumothorax, effusion, or pleural thickening. CARDIAC: No cardiomegaly or cardiac silhouette abnormality. MEDIASTINUM: No visible mass or adenopathy. BONES: No fracture or visible bone lesion. OTHER: Negative. IMPRESSION: 1. Low lung volume examination with trace amount of bibasilar infiltrates versus atelectasis; slightly increased. Electronically authenticated by: GERMAINE FARRELL Date: 2022-04-27 17:20 Normal [facility] CBC AUTO DIFFon 04-25-2022 BASO # 0.1 103/ul Normal 0.0-0.1 [facility] Comment on above: Performed By: #### P OCGLUC #### [facility] [address] [address] [address] Roscoe Segal Basophils/100 WBC (Bld) 0.4 % Normal 0.2-2.0 [facility] Comment on above: Performed By: #### P OCGLUC #### [facility] [address] [address] [address] Roscoe Segal EO # 0.1 103/ul Normal 0.0-0.[address] [facility] Comment on above: Performed By: #### P OCGLUC #### [facility] [address] [address] [address] Roscoe Segal Eosinophils/100 WBC (Bld) 0.7 % Critically low 0.9-7.0 [facility] Comment on above: Performed By: #### P OCGLUC #### [facility] [address] [place] [address] Dr. Roscoe Segal Erythrocyte distribution width (RBC) [Ratio] 14.1 % Normal 11.0-15.0 [facility] Comment on above: Performed By: #### P OCGLUC #### [facility] [address] [place] [address] Dr. Roscoe Segal Hematocrit (Bld) [Volume fraction] 43.8 % Normal 36.0-48.0 [facility] Comment on above: Performed By: #### P OCGLUC #### [facility] [address] [place] [address] Dr. Roscoe Segal Hemoglobin (Bld) [Mass/Vol] 14.6 g/dL Normal 12.0-16.0 [facility] Comment on above: Performed By: #### P OCGLUC #### [facility] [address] [place] [address] Dr. Roscoe Segal IG # 0.09 10e3/ul Critically high 0.00-0.03 [facility] Comment on above: Performed By: #### P OCGLUC #### [facility] [address] [place] [address] Dr. Roscoe Segal IG % 0.6 % Critically high 0.0-0.5 [facility] Comment on above: Performed By: #### P OCGLUC #### [facility] [address] [address] [address] Roscoe Segal LYMPH # 1.5 103/ul Normal 1.2-3.8 [facility] Comment on above: Performed By: #### P OCGLUC #### [facility] [address] [address] [address] Roscoe Segal Lymphocytes/100 WBC (Bld) 9.9 % Critically low 20.5-60.0 [facility] Comment on above: Performed By: #### P OCGLUC #### [facility] [address] [address] [address] Roscoe Segal MANUAL DIFF REQ NO Normal [facility] Comment on above: Performed By: #### P OCGLUC #### [facility] [address] [address] [address] Roscoe Segal MCH (RBC) [Entitic mass] 31.8 pg Normal 26.7-34.0 [facility] Comment on above: Performed By: #### P OCGLUC #### [facility] [address] [address] [address] Roscoe Segal MCHC (RBC) [Mass/Vol] 33.3 g/dL Normal 29.9-35.2 [facility] Comment on above: Performed By: #### P OCGLUC #### [facility] [address] [address] [address] Roscoe Segal MCV (RBC) [Entitic vol] 95.4 fL Normal 81.0-99.0 [facility] Comment on above: Performed By: #### P OCGLUC #### [facility] [address] [address] [address] Roscoe Segal MONO # 1.2 103/ul Critically high 0.3-0.8 [facility] Comment on above: Performed By: #### P OCGLUC #### [facility] [address] [address] [address] Roscoe Segal Monocytes/100 WBC (Bld) 8.0 % Normal 1.7-12.0 [facility] Comment on above: Performed By: #### P OCGLUC #### [facility] [address] [place] [address] Dr. Roscoe Segal NEUT # 11.8 103/ul Critically high 1.4-6.5 [facility] Comment on above: Performed By: #### P OCGLUC #### [facility] [address] [place] [address] Dr. Roscoe Segal Neutrophils/100 WBC (Bld) 80.4 % Critically high 43.0-75.0 [facility] Comment on above: Performed By: #### P OCGLUC #### [facility] [address] [place] [address] Dr. Roscoe Segal Platelet mean volume (Bld) [Entitic vol] 8.9 fL Critically low 9.5-13.5 [facility] Comment on above: Performed By: #### P OCGLUC #### [facility] [address] [place] [address] Dr. Roscoe Segal PLT 357 103/ul Normal 150-[address] [facility] Comment on above: Performed By: #### P OCGLUC #### [facility] [address] [place] [address] Dr. Roscoe Segal RBC 4.59 106/ul Normal 4.20-5.[address] [facility] Comment on above: Performed By: #### P OCGLUC #### [facility] [address] [place] [address] Dr. Roscoe Segal WBC 14.7 103/ul Critically high 4.0-11.0 [facility] Comment on above: Performed By: #### P OCGLUC #### [facility] [address] [place] [address] Dr. Roscoe Segal Covid-19 PCR ([facility])on 04-16 SARS-CoV-2 (COVID-19) RNA SOILA+probe Ql (Unsp spec) Not detected Normal NOT DETECTED [facility] Comment on above: Result Comment: When diagnostic testing is negative, the possibility of a false negative should be considered in the context of a patient's recent exposures and the presence of clinical signs and symptoms consistent with SARS-CoV-2. This test is not yet approved or cleared by the [place] FDA. When there are no FDA-approved or cleared tests available, and other criteria are met, FDA can make tests available under an emergency access mechanism called an Emergency Use Authorization (EUA). The EUA for this test is supported by the Online Advertising Director of Health and Human Service's declaration that circumstances exist to justify the emergency use of in vitro diagnostics for the detection and/or diagnosis of the virus that causes COVID-19. This EUA will remain in effect for the duration of the COVID-19 declaration justifying emergency of IVDs, unless it is terminated or revoked by the FDA (after which the test may no longer be used). Performed By: #### P OCGLUC #### [facility] [address] [place] [address] Dr. Roscoe Segal PROF CHEM 8 (BAS METB)on Anion gap [Moles/Vol] 16.1 mmol/L Normal [facility] Comment on above: Performed By: #### B MP #### [facility] [address] [place] [address] Dr. Roscoe Segal Calcium [Mass/Vol] 9.2 mg/dL Normal 8.5-10.1 [facility] Comment on above: Performed By: #### B MP #### [facility] [address] [place] [address] Dr. Roscoe Segal Chloride [Moles/Vol] 104 mmol/L Normal 98-107 [facility] Comment on above: Performed By: #### B MP #### [facility] [address] [place] [address] Dr. Roscoe Segal CO2 [Moles/Vol] 22.5 mmol/L Normal 21.0-32.0 [facility] Comment on above: Performed By: #### B MP #### [facility] [address] [place] [address] Dr. Roscoe Segal Creatinine [Mass/Vol] 0.93 mg/dL Normal 0.55-1.02 [facility] Comment on above: Performed By: #### B MP #### [facility] [address] [place] [address] Dr. Roscoe Segal EGFR-AF BURKINAN >60 Normal >=60 [facility] Comment on above: Performed By: #### B MP #### [facility] [address] [address] [address] Roscoe Segal EGFR-NON AF BURKINAN >60 Normal >=60 [facility] Comment on above: Performed By: #### B MP #### [facility] [address] [address] [address] Roscoe Segal Glucose [Mass/Vol] 227 mg/dL Critically high 74-106 [facility] Comment on above: Performed By: #### B MP #### [facility] [address] [address] [address] Roscoe Segal Potassium [Moles/Vol] 3.6 mmol/L Normal 3.5-5.1 [facility] Comment on above: Performed By: #### B MP #### [facility] [address] [address] [address] Roscoe Segal Sodium [Moles/Vol] 139 mmol/L Normal 136-145 [facility] Comment on above: Performed By: #### B MP #### [facility] [address] [address] [address] Roscoe Segal Urea nitrogen [Mass/Vol] 9.0 mg/dL Normal 7.0-18.0 [facility] Comment on above: Performed By: #### B MP #### [facility] [address] [address] [address] Roscoe Segal Urea nitrogen/Creatinine [Mass ratio] 9.7 mg/mg Normal [facility] Comment on above: Performed By: #### B MP #### [facility] [address] [address] [address] Roscoe Segal XR CHEST 1 Von 04-25-2022 XR CHEST 1 V EXAMINATION: XR CHES T 1 V HISTORY: SHORTNESS OF BREATH COMPARISON: XR chest 03/29/2022 FINDINGS: LUNGS: Mild haziness and stranding within the left lung base. Lungs are underexpanded. VASCULATURE: No increased pulmonary vasculature. PLEURA: No pneumothorax, effusion, or pleural thickening. CARDIAC: No cardiomegaly or cardiac silhouette abnormality. MEDIASTINUM: No visible mass or adenopathy. BONES: No fracture or visible bone lesion. OTHER: Negative. IMPRESSION: 1. Low lung volume examination with trace amount left basilar atelectasis versus infiltrates; less than seen on 03/29/2022. Electronically authenticated by: GERMAINE FARRELL Date: 2022-04-25 09:41 Normal [facility] GLYCOHEMOGLOBIN A1Con 2021 ADA RECOMMENDATION SEE BELOW Normal [facility] Comment on above: Result Comment: ADA RECOMMENDED LIMIT 4.0 - 6.0 ADA THERAPEUTIC TARGET < 7.0 ACTION SUGGESTED > 7.0 Performed By: #### P OCGLUC #### [facility] [address] [address] [address] Roscoe Segal Glucose [Mass/Vol] 128 mg/dL Normal [facility] Comment on above: Performed By: #### P OCGLUC #### [facility] [address] [address] [address] Roscoe Segal HbA1c (Bld) [Mass fraction] 6.1 % Normal 4.5-6.2 [facility] Comment on above: Performed By: #### P OCGLUC #### [facility] [address] [address] [address] Roscoe Segal LIPID PROFILEon 04-10-2022 CHOL-HDL RATIO NORM SEE BELOW Normal [facility] Comment on above: Result Comment: 3.3 - 4.4 LOW RISK 4.4 - 7.1 AVERAGE RISK 7.1 - 11.0 MODERATE RISK >11.0 HIGH RISK Performed By: #### L IPID #### [facility] [address] [address] [address] Roscoe Segal Cholesterol [Mass/Vol] 125 mg/dL Normal <=200 [facility] Comment on above: Performed By: #### L IPID #### [facility] [address] [place] [address] Dr. Roscoe Segal Cholesterol in HDL [Mass/Vol] 69 mg/dL Critically high 40-60 [facility] Comment on above: Performed By: #### L IPID #### [facility] [address] [address] [address] Roscoe Segal Cholesterol in LDL [Mass/Vol] 31.8 mg/dL Normal [facility] Comment on above: Performed By: #### L IPID #### [facility] [address] [address] [address] Roscoe Segal Cholesterol.total/Chol esterol in HDL [Mass ratio] 1.8 {ratio} Normal [facility] Comment on above: Performed By: #### L IPID #### [facility] [address] [place] [address] Dr. Roscoe Segal HDL NORMAL > or = 60 mg/dl - LO W CARDIOVASCULAR RISK <40 mg/dl - HIGH CARDIOVASCULAR RISK Normal [facility] Comment on above: Performed By: #### L IPID #### [facility] [address] [place] [address] Dr. Roscoe Segal LDL CALC NORMAL SEE BELOW Normal [facility] Comment on above: Result Comment: <100 mg/dl OPTIMAL 100 - 129 mg/dl NEAR OR ABOVE OPTIMAL 130 - 159 mg/dl BORDERLINE HIGH 160 - 189 mg/dl HIGH >190 mg/dl VERY HIGH Performed By: #### L IPID #### [facility] [address] [place] [address] Dr. Roscoe Segal Triglyceride [Mass/Vol] 121 mg/dL Normal <=[address] [facility] Comment on above: Performed By: #### L IPID #### [facility] [address] [place] [address] Dr. Roscoe Segal VLDL CALC 24.2 mg/dL Normal [facility] Comment on above: Performed By: #### L IPID #### [facility] [address] [place] [address] Dr. Roscoe Segal Covid-19 PCR ([facility])on 03-16 SARS-CoV-2 (COVID-19) RNA SOILA+probe Ql (Unsp spec) Not detected Normal NOT DETECTED [facility] Comment on above: Result Comment: This test is not yet approved or cleared by the [place] FDA. When there are no FDA-approved or cleared tests available, and other criteria are met, FDA can make tests available under an emergency access mechanism called an Emergency Use Authorization (EUA). The EUA for this test is supported by the Online Advertising Director of Health and Human Service's (HHS's) declaration that circumstances exist to justify the emergency use of in vitro diagnostics for the detection and/or diagnosis of the virus that causes COVID-19. This EUA will remain in effect (meaning this test can be used) for the duration of the COVID-19 declaration justifying emergency of IVDs, unless it is terminated or revoked by FDA (after which the test may no longer be used). When diagnostic testing is negative, the possibility of a false negative should be considered in the context of a patient's recent exposures and the presence of clinical signs and symptoms consistent with SARS-CoV-2. Performed By: #### P OCGLUC #### [facility] [address] [place] [address] Dr. Roscoe Segal XR CHEST 1 Von 03-29-2022 XR CHEST 1 V EXAM: XR CHEST 1 V HISTORY: Cough, shortness of breath and headaches. COMPARISON: Chest x-ray from 03/03/2022 FINDINGS: A frontal view of the chest demonstrated streaky density in the left base which has developed when compared to prior study and partially obscures the left heart border. This could represent pneumonia in the correct clinical setting. The lungs otherwise appear clear. The heart size is within normal limits. There are no pleural effusions. Acute bony abnormality is identified in the chest. IMPRESSION: There is streaky density in the left base which could represent pneumonia in the correct clinical setting. This has developed when compared to the chest x-ray from 03/03/2022. Electronically authenticated by: YASMIN HUERTAS Date: 2022-03-29 15:39 Normal [facility] CBC AUTO DIFFon 03-21-2022 BASO # 0.1 103/ul Normal 0.0-0.[address] [facility] Comment on above: Performed By: #### C BC #### [facility] [address] [address] [address] Roscoe Segal Basophils/100 WBC (Bld) 0.6 % Normal 0.2-2.0 [facility] Comment on above: Performed By: #### C BC #### [facility] [address] [address] [address] Roscoe Segal EO # 0.3 103/ul Normal 0.0-0.[address] [facility] Comment on above: Performed By: #### C BC #### [facility] [address] [place] [address] Dr. Roscoe Segal Eosinophils/100 WBC (Bld) 2.1 % Normal 0.9-7.[address] [facility] Comment on above: Performed By: #### C BC #### [facility] [address] [place] [address] Dr. Roscoe Segal Erythrocyte distribution width (RBC) [Ratio] 14.7 % Normal 11.0-15.0 [facility] Comment on above: Performed By: #### C BC #### [facility] [address] [place] [address] Dr. Roscoe Segal Hematocrit (Bld) [Volume fraction] 47.1 % Normal 36.0-48.0 [facility] Comment on above: Performed By: #### C BC #### [facility] [address] [place] [address] Dr. Roscoe Segal Hemoglobin (Bld) [Mass/Vol] 15.6 g/dL Normal 12.0-16.0 [facility] Comment on above: Performed By: #### C BC #### [facility] [address] [place] [address] Dr. Roscoe Segal IG # 0.05 10e3/ul Critically high 0.00-0.03 [facility] Comment on above: Performed By: #### C BC #### [facility] [address] [place] [address] Dr. Roscoe Segal IG % 0.4 % Normal 0.0-0.[address] [facility] Comment on above: Performed By: #### C BC #### [facility] [address] [place] [address] Dr. Roscoe Segal LYMPH # 3.9 103/ul Critically high 1.2-3.8 [facility] Comment on above: Performed By: #### C BC #### [facility] [address] [place] [address] Dr. Roscoe Segal Lymphocytes/100 WBC (Bld) 32.1 % Normal 20.5-60.[address] [facility] Comment on above: Performed By: #### C BC #### [facility] [address] [place] [address] Dr. Roscoe Segal MANUAL DIFF REQ NO Normal [facility] Comment on above: Performed By: #### C BC #### [facility] [address] [place] [address] Dr. Roscoe Segal MCH (RBC) [Entitic mass] 31.9 pg Normal 26.7-34.[address] [facility] Comment on above: Performed By: #### C BC #### [facility] [address] [place] [address] Dr. Roscoe Segal MCHC (RBC) [Mass/Vol] 33.1 g/dL Normal 29.9-35.[address] [facility] Comment on above: Performed By: #### C BC #### [facility] [address] [place] [address] Dr. Roscoe Segal MCV (RBC) [Entitic vol] 96.3 fL Normal 81.0-99.[address] [facility] Comment on above: Performed By: #### C BC #### [facility] [address] [place] [address] Dr. Roscoe Segal MONO # 0.9 103/ul Critically high 0.3-0.8 [facility] Comment on above: Performed By: #### C BC #### [facility] [address] [place] [address] Dr. Roscoe Segal Monocytes/100 WBC (Bld) 7.4 % Normal 1.7-12.[address] [facility] Comment on above: Performed By: #### C BC #### [facility] [address] [place] [address] Dr. Roscoe Segal NEUT # 7.0 103/ul Critically high 1.4-6.5 [facility] Comment on above: Performed By: #### C BC #### [facility] [address] [place] [address] Dr. Roscoe Segal Neutrophils/100 WBC (Bld) 57.4 % Normal 43.0-75.0 [facility] Comment on above: Performed By: #### C BC #### [facility] [address] [place] [address] Dr. Roscoe Segal Platelet mean volume (Bld) [Entitic vol] 8.8 fL Critically low 9.5-13.5 [facility] Comment on above: Performed By: #### C BC #### [facility] [address] [place] [address] Dr. Roscoe Segal PLT 417 103/ul Normal 150-[address] [facility] Comment on above: Performed By: #### C BC #### [facility] [address] [place] [address] Dr. Roscoe Segal RBC 4.89 106/ul Normal 4.20-5.40 [facility] Comment on above: Performed By: #### C BC #### [facility] [address] [place] [address] Dr. Roscoe Segal WBC 12.1 103/ul Critically high 4.0-11.0 [facility] Comment on above: Performed By: #### C BC #### [facility] [address] [place] [address] Dr. Roscoe Segal [facility]on SARS-CoV-2 (COVID-19) RNA SOILA+probe Ql (Unsp spec) Not detected Normal NOT DETECTED [facility] Comment on above: Result Comment: When diagnostic testing is negative, the possibility of a false negative should be considered in the context of a patient's recent exposures and the presence of clinical signs and symptoms consistent with SARS-CoV-2. This test is not yet approved or cleared by the [place] FDA. When there are no FDA-approved or cleared tests available, and other criteria are met, FDA can make tests available under an emergency access mechanism called an Emergency Use Authorization (EUA). The EUA for this test is supported by the Online Advertising Director of Health and Human Service's declaration that circumstances exist to justify the emergency use of in vitro diagnostics for the detection and/or diagnosis of the virus that causes COVID-19. This EUA will remain in effect for the duration of the COVID-19 declaration justifying emergency of IVDs, unless it is terminated or revoked by the FDA (after which the test may no longer be used). Performed By: #### P OCGLUC #### [facility] [address] [place] [address] Dr. Roscoe Segal PROF CHEM 8 (BAS METB)on Anion gap [Moles/Vol] 13.4 mmol/L Normal [facility] Comment on above: Performed By: #### I NFLUAB #### [facility] [address] [place] [address] Dr. Roscoe Segal Calcium [Mass/Vol] 9.2 mg/dL Normal 8.5-10.1 [facility] Comment on above: Performed By: #### I NFLUAB #### [facility] [address] [place] [address] Dr. Roscoe Segal Chloride [Moles/Vol] 105 mmol/L Normal 98-107 [facility] Comment on above: Performed By: #### I NFLUAB #### [facility] [address] [place] [address] Dr. Roscoe Segal CO2 [Moles/Vol] 23.9 mmol/L Normal 21.0-32.0 [facility] Comment on above: Performed By: #### I NFLUAB #### [facility] [address] [place] [address] Dr. Roscoe Segal Creatinine [Mass/Vol] 0.93 mg/dL Normal 0.55-1.02 [facility] Comment on above: Performed By: #### I NFLUAB #### [facility] [address] [place] [address] Dr. Roscoe Segal EGFR-AF BURKINAN >60 Normal >=60 [facility] Comment on above: Performed By: #### I NFLUAB #### [facility] [address] [place] [address] Dr. Roscoe Segal EGFR-NON AF BURKINAN >60 Normal >=60 [facility] Comment on above: Performed By: #### I NFLUAB #### [facility] [address] [address] [address] Roscoe Segal Glucose [Mass/Vol] 141 mg/dL Critically high 74-106 [facility] Comment on above: Performed By: #### I NFLUAB #### [facility] [address] [address] [address] Roscoe Segal Potassium [Moles/Vol] 4.3 mmol/L Normal 3.5-5.1 [facility] Comment on above: Performed By: #### I NFLUAB #### [facility] [address] [address] [address] Roscoe Segal Sodium [Moles/Vol] 138 mmol/L Normal 136-145 [facility] Comment on above: Performed By: #### I NFLUAB #### [facility] [address] [address] [address] Roscoe Segal Urea nitrogen [Mass/Vol] 9.0 mg/dL Normal 7.0-18.0 [facility] Comment on above: Performed By: #### I NFLUAB #### [facility] [address] [address] [address] Roscoe Segal Urea nitrogen/Creatinine [Mass ratio] 9.7 mg/mg Normal [facility] Comment on above: Performed By: #### I NFLUAB #### [facility] [address] [address] [address] Roscoe Segal CARDIAC VICK 3-6on 2 CK [Catalytic activity/Vol] 60 U/L Normal 26-192 [facility] Comment on above: Performed By: #### P OCGLUC #### [facility] [address] [address] [address] Roscoe Segal CK.MB [Mass/Vol] 1.84 ng/mL Normal <=3.60 [facility] Comment on above: Performed By: #### P OCGLUC #### [facility] [address] [address] [address] Roscoe Segal HSTROP 8.3 pg/mL Normal 4.0-51.3 [facility] Comment on above: Result Comment: CUT- OFF POINTS HAVE BEEN ESTABLISHED BASED ON THE FOURTH UNIVERSAL DEFINITIONS OF MYOCARDIAL INFARCTION. THE UPPER REFERENCE LIMIT (URL) OF TROPONIN, DEFINED THE 99TH PERCENTILE OF cTnI DISTRIBUTION IN A REFERENCE POPULATION, HAS BEEN CONFIRMED THE DECISION THRESHOLD FOR [place] DIAGNOSIS. Performed By: #### P OCGLUC #### [facility] [address] [place] [address] Dr. Roscoe Segal CK [Catalytic activity/Vol] 57 U/L Normal 26-192 [facility] Comment on above: Performed By: #### I NFLUAB #### [facility] [address] [address] [address] Roscoe Segal CK.MB [Mass/Vol] 1.82 ng/mL Normal <=3.60 [facility] Comment on above: Performed By: #### I NFLUAB #### [facility] [address] [place] [address] Dr. Roscoe Segal HSTROP 8.1 pg/mL Normal 4.0-51.[address] [facility] Comment on above: Result Comment: CUT- OFF POINTS HAVE BEEN ESTABLISHED BASED ON THE FOURTH UNIVERSAL DEFINITIONS OF MYOCARDIAL INFARCTION. THE UPPER REFERENCE LIMIT (URL) OF TROPONIN, DEFINED THE 99TH PERCENTILE OF cTnI DISTRIBUTION IN A REFERENCE POPULATION, HAS BEEN CONFIRMED THE DECISION THRESHOLD FOR [place] DIAGNOSIS. Performed By: #### I NFLUAB #### [facility] [address] [place] [address] Dr. Roscoe Segal CARDIAC VICK ADMITon 022 CK [Catalytic activity/Vol] 64 U/L Normal 26-[address] [facility] Comment on above: Performed By: #### P OCGLUC #### [facility] [address] [place] [address] Dr. Roscoe Segal CK.MB [Mass/Vol] 2.19 ng/mL Normal <=3.60 [facility] Comment on above: Performed By: #### P OCGLUC #### [facility] [address] [place] [address] Dr. Roscoe Segal HSTROP 7.6 pg/mL Normal 4.0-51.[address] [facility] Comment on above: Result Comment: CUT- OFF POINTS HAVE BEEN ESTABLISHED BASED ON THE FOURTH UNIVERSAL DEFINITIONS OF MYOCARDIAL INFARCTION. THE UPPER REFERENCE LIMIT (URL) OF TROPONIN, DEFINED THE 99TH PERCENTILE OF cTnI DISTRIBUTION IN A REFERENCE POPULATION, HAS BEEN CONFIRMED THE DECISION THRESHOLD FOR [place] DIAGNOSIS. Performed By: #### P OCGLUC #### [facility] [address] [place] [address] Dr. Roscoe Segal GWEN 50 ng/mL Normal 9-[address] [facility] Comment on above: Performed By: #### P OCGLUC #### [facility] [address] [place] [address] Dr. Roscoe Segal CBC AUTO DIFFon 03-03-2022 BASO # 0.1 103/ul Normal 0.0-0.1 [facility] Comment on above: Performed By: #### P OCGLUC #### [facility] [address] [place] [address] Dr. Roscoe Segal Basophils/100 WBC (Bld) 0.7 % Normal 0.2-2.0 [facility] Comment on above: Performed By: #### P OCGLUC #### [facility] [address] [place] [address] Dr. Roscoe Segal EO # 0.2 103/ul Normal 0.0-0.7 [facility] Comment on above: Performed By: #### P OCGLUC #### [facility] [address] [place] [address] Dr. Roscoe Segal Eosinophils/100 WBC (Bld) 1.3 % Normal 0.9-7.[address] [facility] Comment on above: Performed By: #### P OCGLUC #### [facility] [address] [place] [address] Dr. Roscoe Segal Erythrocyte distribution width (RBC) [Ratio] 14.5 % Normal 11.0-15.0 [facility] Comment on above: Performed By: #### P OCGLUC #### [facility] [address] [place] [address] Dr. Roscoe Segal Hematocrit (Bld) [Volume fraction] 44.8 % Normal 36.0-48.0 [facility] Comment on above: Performed By: #### P OCGLUC #### [facility] [address] [address] [address] Roscoe Segal Hemoglobin (Bld) [Mass/Vol] 15.0 g/dL Normal 12.0-16.0 [facility] Comment on above: Performed By: #### P OCGLUC #### [facility] [address] [address] [address] Roscoe Segal IG # 0.07 10e3/ul Critically high 0.00-0.03 [facility] Comment on above: Performed By: #### P OCGLUC #### [facility] [address] [address] [address] Roscoe Segal IG % 0.6 % Critically high 0.0-0.5 [facility] Comment on above: Performed By: #### P OCGLUC #### [facility] [address] [place] [address] Dr. Roscoe Segal LYMPH # 4.7 103/ul Critically high 1.2-3.8 [facility] Comment on above: Performed By: #### P OCGLUC #### [facility] [address] [address] [address] Roscoe Segal Lymphocytes/100 WBC (Bld) 38.7 % Normal 20.5-60.0 [facility] Comment on above: Performed By: #### P OCGLUC #### [facility] [address] [address] [address] Roscoe Segal MANUAL DIFF REQ NO Normal [facility] Comment on above: Performed By: #### P OCGLUC #### [facility] [address] [address] [address] Roscoe Segal MCH (RBC) [Entitic mass] 32.1 pg Normal 26.7-34.0 [facility] Comment on above: Performed By: #### P OCGLUC #### [facility] [address] [address] [address] Roscoe Segal MCHC (RBC) [Mass/Vol] 33.5 g/dL Normal 29.9-35.2 [facility] Comment on above: Performed By: #### P OCGLUC #### [facility] [address] [address] [address] Roscoe Segal MCV (RBC) [Entitic vol] 95.7 fL Normal 81.0-99.0 [facility] Comment on above: Performed By: #### P OCGLUC #### [facility] [address] [address] [address] Roscoe Segal MONO # 1.0 103/ul Critically high 0.3-0.8 [facility] Comment on above: Performed By: #### P OCGLUC #### [facility] [address] [address] [address] Roscoe Segal Monocytes/100 WBC (Bld) 7.9 % Normal 1.7-12.0 [facility] Comment on above: Performed By: #### P OCGLUC #### [facility] [address] [address] [address] Roscoe Segal NEUT # 6.2 103/ul Normal 1.4-6.5 [facility] Comment on above: Performed By: #### P OCGLUC #### [facility] [address] [address] [address] Roscoe Segal Neutrophils/100 WBC (Bld) 50.8 % Normal 43.0-75.0 [facility] Comment on above: Performed By: #### P OCGLUC #### [facility] [address] [address] [address] Roscoe Segal Platelet mean volume (Bld) [Entitic vol] 8.8 fL Critically low 9.5-13.5 [facility] Comment on above: Performed By: #### P OCGLUC #### [facility] [address] [address] [address] Roscoe Segal PLT 407 103/ul Normal 150-[address] [facility] Comment on above: Performed By: #### P OCGLUC #### [facility] [address] [address] [address] Roscoe Segal RBC 4.68 106/ul Normal 4.20-5.[address] [facility] Comment on above: Performed By: #### P OCGLUC #### [facility] [address] [address] [address] Roscoe Segal WBC 12.2 103/ul Critically high 4.0-11.0 [facility] Comment on above: Performed By: #### P OCGLUC #### [facility] [address] [address] [address] Roscoe Segal LACTATE/LACTIC ACIDon 2021 Lactate [Moles/Vol] 2.1 mmol/L Critically high 0.4-1.9 [facility] Comment on above: Performed By: #### P OCGLUC #### [facility] [address] [address] [address] Roscoe Segal Lactate [Moles/Vol] 2.2 mmol/L Critically high 0.4-1.9 [facility] Comment on above: Performed By: #### P OCGLUC #### [facility] [address] [address] [address] Roscoe Segal POINT OF CARE GLUCOSEon 02-13 Glucose [Mass/Vol] 109 mg/dL Critically high 74-106 [facility] Comment on above: Performed By: #### P OCGLUC #### [facility] [address] [address] [address] Roscoe Segal Glucose [Mass/Vol] 108 mg/dL Critically high 74-106 [facility] Comment on above: Performed By: #### P OCGLUC #### [facility] [address] [address] [address] Roscoe Segal Glucose [Mass/Vol] 98 mg/dL Normal 74-106 [facility] Comment on above: Performed By: #### I NFLUAB #### [facility] [address] [address] [address] Roscoe Segal Glucose [Mass/Vol] 274 mg/dL Critically high 74-106 [facility] Comment on above: Performed By: #### C BC #### [facility] [address] [address] [address] Roscoe Segal Glucose [Mass/Vol] 87 mg/dL Normal 74-106 [facility] Comment on above: Performed By: #### P OCGLUC #### [facility] [address] [address] [address] Roscoe Segal Glucose [Mass/Vol] 98 mg/dL Normal 74-106 [facility] Comment on above: Performed By: #### P OCGLUC #### [facility] [address] [address] [address] Roscoe Segal Glucose [Mass/Vol] 131 mg/dL Critically high 74-106 [facility] Comment on above: Performed By: #### P OCGLUC #### [facility] [address] [address] [address] Roscoe Segal Glucose [Mass/Vol] 59 mg/dL Critically low 74-106 [facility] Comment on above: Performed By: #### P OCGLUC #### [facility] [address] [address] [address] Roscoe Segal Glucose [Mass/Vol] 95 mg/dL Normal 74-106 [facility] Comment on above: Performed By: #### P OCGLUC #### [facility] [address] [address] [address] Roscoe Segal PROF CHEM 8 (BAS METB)on Anion gap [Moles/Vol] 15.2 mmol/L Normal [facility] Comment on above: Performed By: #### P OCGLUC #### [facility] [address] [address] [address] Roscoe Segal Calcium [Mass/Vol] 8.7 mg/dL Normal 8.5-10.1 [facility] Comment on above: Performed By: #### P OCGLUC #### [facility] [address] [address] [address] Roscoe Segal Chloride [Moles/Vol] 108 mmol/L Critically high 98-107 [facility] Comment on above: Performed By: #### P OCGLUC #### [facility] [address] [address] [address] Roscoe Segal CO2 [Moles/Vol] 20.8 mmol/L Critically low 21.0-32.0 [facility] Comment on above: Performed By: #### P OCGLUC #### [facility] [address] [address] [address] Roscoe Segal Creatinine [Mass/Vol] 1.21 mg/dL Critically high 0.55-1.02 [facility] Comment on above: Performed By: #### P OCGLUC #### [facility] [address] [address] [address] Roscoe Segal EGFR-AF BURKINAN 58 mL/min/1.73m2 Critically low >=60 [facility] Comment on above: Performed By: #### P OCGLUC #### [facility] [address] [address] [address] Roscoe Segal EGFR-NON AF BURKINAN 48 mL/min/1.73m2 Critically low >=60 [facility] Comment on above: Performed By: #### P OCGLUC #### [facility] [address] [address] [address] Roscoe Segal Glucose [Mass/Vol] 54 mg/dL Critically low 74-106 [facility] Comment on above: Performed By: #### P OCGLUC #### [facility] [address] [address] [address] Roscoe Segal Potassium [Moles/Vol] 3.0 mmol/L Critically low 3.5-5.1 [facility] Comment on above: Performed By: #### P OCGLUC #### [facility] [address] [address] [address] Roscoe Segal Sodium [Moles/Vol] 141 mmol/L Normal 136-145 [facility] Comment on above: Performed By: #### P OCGLUC #### [facility] [address] [address] [address] Roscoe Segal Urea nitrogen [Mass/Vol] 11.0 mg/dL Normal 7.0-18.0 [facility] Comment on above: Performed By: #### P OCGLUC #### [facility] [address] [address] [address] Roscoe Segal Urea nitrogen/Creatinine [Mass ratio] 9.1 mg/mg Normal [facility] Comment on above: Performed By: #### P OCGLUC #### [facility] [address] [place] [address] Dr. Roscoe Segal XR CHEST 1 Von 03-03-2022 XR CHEST 1 V EXAM: XR CHEST 1 V 03/03/2022 12:07 AM EDT [id number] CLINICAL STATEMENT: Asthenia COMPARISON: 01/01/2022 TECHNIQUE: Single AP radiograph of the chest is submitted. FINDINGS: There is no acute airspace disease. The cardiac silhouette is normal. The costophrenic recesses are sharp. No pneumothorax. The bony elements are unremarkable. IMPRESSION: No acute cardiopulmonary process. FOLLOW-UP: Follow-up as clinically indicated. Electronically authenticated by: JUAN BARKER Date: 2022-03-03 01:14 Normal [facility] CBC AUTO DIFFon 01-01-2022 BASO # 0.1 103/ul Normal 0.0-0.1 [facility] Comment on above: Performed By: #### P OCGLUC #### [facility] [address] [place] [address] Dr. Roscoe Segal Basophils/100 WBC (Bld) 0.7 % Normal 0.2-2.0 [facility] Comment on above: Performed By: #### P OCGLUC #### [facility] [address] [place] [address] Dr. Roscoe Segal EO # 0.1 103/ul Normal 0.0-0.7 [facility] Comment on above: Performed By: #### P OCGLUC #### [facility] [address] [place] [address] Dr. Roscoe Segal Eosinophils/100 WBC (Bld) 0.9 % Normal 0.9-7.0 [facility] Comment on above: Performed By: #### P OCGLUC #### [facility] [address] [place] [address] Dr. Roscoe Segal Erythrocyte distribution width (RBC) [Ratio] 14.5 % Normal 11.0-15.0 [facility] Comment on above: Performed By: #### P OCGLUC #### [facility] [address] [place] [address] Dr. Roscoe Segal Hematocrit (Bld) [Volume fraction] 41.4 % Normal 36.0-48.0 [facility] Comment on above: Performed By: #### P OCGLUC #### [facility] [address] [address] [address] Roscoe Segal Hemoglobin (Bld) [Mass/Vol] 13.4 g/dL Normal 12.0-16.0 [facility] Comment on above: Performed By: #### P OCGLUC #### [facility] [address] [address] [address] Roscoe Segal IG # 0.08 10e3/ul Critically high 0.00-0.03 [facility] Comment on above: Performed By: #### P OCGLUC #### [facility] [address] [address] [address] Roscoe Segal IG % 0.7 % Critically high 0.0-0.5 [facility] Comment on above: Performed By: #### P OCGLUC #### [facility] [address] [place] [address] Dr. Roscoe Segal LYMPH # 2.4 103/ul Normal 1.2-3.8 [facility] Comment on above: Performed By: #### P OCGLUC #### [facility] [address] [address] [address] Roscoe Segal Lymphocytes/100 WBC (Bld) 22.0 % Normal 20.5-60.[address] [facility] Comment on above: Performed By: #### P OCGLUC #### [facility] [address] [address] [address] Roscoe Segal MANUAL DIFF REQ NO Normal [facility] Comment on above: Performed By: #### P OCGLUC #### [facility] [address] [address] [address] Roscoe Seagl MCH (RBC) [Entitic mass] 31.2 pg Normal 26.7-34.0 [facility] Comment on above: Performed By: #### P OCGLUC #### [facility] [address] [address] [address] Roscoe Segal MCHC (RBC) [Mass/Vol] 32.4 g/dL Normal 29.9-35.2 [facility] Comment on above: Performed By: #### P OCGLUC #### [facility] [address] [address] [address] Roscoe Segal MCV (RBC) [Entitic vol] 96.3 fL Normal 81.0-99.[address] [facility] Comment on above: Performed By: #### P OCGLUC #### [facility] [address] [address] [address] Roscoe Segal MONO # 0.9 103/ul Critically high 0.3-0.8 [facility] Comment on above: Performed By: #### P OCGLUC #### [facility] [address] [place] [address] Dr. Roscoe Segal Monocytes/100 WBC (Bld) 7.7 % Normal 1.7-12.0 [facility] Comment on above: Performed By: #### P OCGLUC #### [facility] [address] [address] [address] Roscoe Segal NEUT # 7.5 103/ul Critically high 1.4-6.5 [facility] Comment on above: Performed By: #### P OCGLUC #### [facility] [address] [place] [address] Dr. Roscoe Segal Neutrophils/100 WBC (Bld) 68.0 % Normal 43.0-75.[address] [facility] Comment on above: Performed By: #### P OCGLUC #### [facility] [address] [address] [address] Roscoe Segal Platelet mean volume (Bld) [Entitic vol] 8.8 fL Critically low 9.5-13.[address] [facility] Comment on above: Performed By: #### P OCGLUC #### [facility] [address] [place] [address] Dr. Roscoe Segal PLT 317 103/ul Normal 150-[address] [facility] Comment on above: Performed By: #### P OCGLUC #### [facility] [address] [address] [address] Roscoe Segal RBC 4.30 106/ul Normal 4.20-5.[address] [facility] Comment on above: Performed By: #### P OCGLUC #### [facility] [address] [address] [address] Roscoe Segal WBC 11.1 103/ul Critically high 4.0-11.0 [facility] Comment on above: Performed By: #### P OCGLUC #### [facility] [address] [place] [address] Dr. Roscoe Segal [facility]14 SARS-CoV-2 (COVID-19) RNA SOILA+probe Ql (Unsp spec) Not detected Normal NOT DETECTED [facility] Comment on above: Result Comment: When diagnostic testing is negative, the possibility of a false negative should be considered in the context of a patient's recent exposures and the presence of clinical signs and symptoms consistent with SARS-CoV-2. This test is not yet approved or cleared by the [place] FDA. When there are no FDA-approved or cleared tests available, and other criteria are met, FDA can make tests available under an emergency access mechanism called an Emergency Use Authorization (EUA). The EUA for this test is supported by the [place] of Health and Human Service's declaration that circumstances exist to justify the emergency use of in vitro diagnostics for the detection and/or diagnosis of the virus that causes COVID-19. This EUA will remain in effect for the duration of the COVID-19 declaration justifying emergency of IVDs, unless it is terminated or revoked by the FDA (after which the test may no longer be used). Performed By: #### P OCGLUC #### [facility] [address] [place] [address] Dr. Roscoe Segal ETHANOL (BLD ALC)on 01-02-20 ALC NOTE NOTE: 80 mg/dl is th e legal limit for a blood alcohol level Normal [facility] Comment on above: Performed By: #### C BC #### [facility] [address] [place] [address] Dr. Roscoe Segal Ethanol [Mass/Vol] 197 mg/dL Normal [facility] Comment on above: Performed By: #### C BC #### [facility] [address] [address] [address] Roscoe Segal PROF CHEM 8 (BAS METB)on Anion gap [Moles/Vol] 16.4 mmol/L Normal [facility] Comment on above: Performed By: #### I NFLUAB #### [facility] [address] [place] [address] Dr. Roscoe Segal Calcium [Mass/Vol] 8.2 mg/dL Critically low 8.5-10.1 [facility] Comment on above: Performed By: #### I NFLUAB #### [facility] [address] [place] [address] Dr. Roscoe Segal Chloride [Moles/Vol] 107 mmol/L Normal 98-107 [facility] Comment on above: Performed By: #### I NFLUAB #### [facility] [address] [place] [address] Dr. Roscoe Segal CO2 [Moles/Vol] 21.3 mmol/L Normal 21.0-32.0 [facility] Comment on above: Performed By: #### I NFLUAB #### [facility] [address] [place] [address] Dr. Roscoe Segal Creatinine [Mass/Vol] 0.78 mg/dL Normal 0.55-1.02 [facility] Comment on above: Performed By: #### I NFLUAB #### [facility] [address] [place] [address] Dr. Roscoe Segal EGFR-AF BURKINAN >60 Normal >=60 [facility] Comment on above: Performed By: #### I NFLUAB #### [facility] [address] [place] [address] Dr. Roscoe Segal EGFR-NON AF BURKINAN >60 Normal >=60 [facility] Comment on above: Performed By: #### I NFLUAB #### [facility] [address] [place] [address] Dr. Roscoe Segal Glucose [Mass/Vol] 310 mg/dL Critically high 74-106 [facility] Comment on above: Performed By: #### I NFLUAB #### [facility] [address] [address] [address] Roscoe Segal Potassium [Moles/Vol] 3.7 mmol/L Normal 3.5-5.1 [facility] Comment on above: Performed By: #### I NFLUAB #### [facility] [address] [place] [address] Dr. Roscoe Segal Sodium [Moles/Vol] 141 mmol/L Normal 136-145 [facility] Comment on above: Performed By: #### I NFLUAB #### [facility] [address] [place] [address] Dr. Roscoe Segal Urea nitrogen [Mass/Vol] 8.0 mg/dL Normal 7.0-18.0 [facility] Comment on above: Performed By: #### I NFLUAB #### [facility] [address] [place] [address] Dr. Roscoe Segal Urea nitrogen/Creatinine [Mass ratio] 10.3 mg/mg Normal [facility] Comment on above: Performed By: #### I NFLUAB #### [facility] [address] [place] [address] Dr. Roscoe Segal XR CHEST 1 Von 01-01-2022 XR CHEST 1 V EXAMINATION: XR CHES T 1 V HISTORY: SHORTNESS OF BREATH COMPARISON: XR chest 03/19/2021 FINDINGS: LUNGS: No significant pulmonary parenchymal abnormalities. VASCULATURE: No increased pulmonary vasculature. PLEURA: No pneumothorax, effusion, or pleural thickening. CARDIAC: No cardiomegaly or cardiac silhouette abnormality. MEDIASTINUM: No visible mass or adenopathy. BONES: No fracture or visible bone lesion. OTHER: Negative. IMPRESSION: 1. Low lung volume examination. 2. No acute cardiopulmonary process. Stable chest. Electronically authenticated by: GERMAINE FARRELL Date: 2022-01-01 19:08 Normal [facility] CBC AUTO DIFFon 12-24-2021 BASO # 0.1 103/ul Normal 0.0-0.1 [facility] Comment on above: Performed By: #### I NFLUAB #### [facility] [address] [address] [address] Roscoe Segal Basophils/100 WBC (Bld) 0.9 % Normal 0.2-2.0 [facility] Comment on above: Performed By: #### I NFLUAB #### [facility] [address] [address] [address] Roscoe Segal EO # 0.2 103/ul Normal 0.0-0.7 [facility] Comment on above: Performed By: #### I NFLUAB #### [facility] [address] [place] [address] Dr. Roscoe Segal Eosinophils/100 WBC (Bld) 2.4 % Normal 0.9-7.0 [facility] Comment on above: Performed By: #### I NFLUAB #### [facility] [address] [place] [address] Dr. Roscoe Segal Erythrocyte distribution width (RBC) [Ratio] 14.8 % Normal 11.0-15.0 [facility] Comment on above: Performed By: #### I NFLUAB #### [facility] [address] [place] [address] Dr. Roscoe Segal Hematocrit (Bld) [Volume fraction] 41.1 % Normal 36.0-48.0 [facility] Comment on above: Performed By: #### I NFLUAB #### [facility] [address] [place] [address] Dr. Roscoe Segal Hemoglobin (Bld) [Mass/Vol] 13.0 g/dL Normal 12.0-16.0 [facility] Comment on above: Performed By: #### I NFLUAB #### [facility] [address] [place] [address] Dr. Roscoe Segal IG # 0.10 10e3/ul Critically high 0.00-0.03 [facility] Comment on above: Performed By: #### I NFLUAB #### [facility] [address] [place] [address] Dr. Roscoe Segal IG % 1.1 % Critically high 0.0-0.5 [facility] Comment on above: Performed By: #### I NFLUAB #### [facility] [address] [address] [address] Roscoe Segal LYMPH # 2.0 103/ul Normal 1.2-3.[address] [facility] Comment on above: Performed By: #### I NFLUAB #### [facility] [address] [address] [address] Roscoe Segal Lymphocytes/100 WBC (Bld) 21.5 % Normal 20.5-60.0 [facility] Comment on above: Performed By: #### I NFLUAB #### [facility] [address] [address] [address] Roscoe Segal MANUAL DIFF REQ NO Normal [facility] Comment on above: Performed By: #### I NFLUAB #### [facility] [address] [address] [address] Roscoe Segal MCH (RBC) [Entitic mass] 31.0 pg Normal 26.7-34.0 [facility] Comment on above: Performed By: #### I NFLUAB #### [facility] [address] [address] [address] Roscoe Segal MCHC (RBC) [Mass/Vol] 31.6 g/dL Normal 29.9-35.2 [facility] Comment on above: Performed By: #### I NFLUAB #### [facility] [address] [address] [address] Roscoe Segal MCV (RBC) [Entitic vol] 98.1 fL Normal 81.0-99.0 [facility] Comment on above: Performed By: #### I NFLUAB #### [facility] [address] [address] [address] Roscoe Segal MONO # 0.8 103/ul Normal 0.3-0.8 [facility] Comment on above: Performed By: #### I NFLUAB #### [facility] [address] [address] [address] Roscoe Segal Monocytes/100 WBC (Bld) 8.9 % Normal 1.7-12.[address] [facility] Comment on above: Performed By: #### I NFLUAB #### [facility] [address] [address] [address] Roscoe Segal NEUT # 6.0 103/ul Normal 1.4-6.5 [facility] Comment on above: Performed By: #### I NFLUAB #### [facility] [address] [address] [address] Roscoe Segal Neutrophils/100 WBC (Bld) 65.2 % Normal 43.0-75.0 [facility] Comment on above: Performed By: #### I NFLUAB #### [facility] [address] [place] [address] Dr. Roscoe Segal Platelet mean volume (Bld) [Entitic vol] 9.4 fL Critically low 9.5-13.5 [facility] Comment on above: Performed By: #### I NFLUAB #### [facility] [address] [place] [address] Dr. Roscoe Segal PLT 332 103/ul Normal 150-450 [facility] Comment on above: Performed By: #### I NFLUAB #### [facility] [address] [address] [address] Roscoe Segal RBC 4.19 106/ul Critically low 4.20-5.40 [facility] Comment on above: Performed By: #### I NFLUAB #### [facility] [address] [place] [address] Dr. Roscoe Segal WBC 9.2 103/ul Normal 4.0-11.0 [facility] Comment on above: Performed By: #### I NFLUAB #### [facility] [address] [place] [address] Dr. Roscoe Segal GLYCOHEMOGLOBIN A1Con 2021 ADA RECOMMENDATION SEE BELOW Normal [facility] Comment on above: Result Comment: ADA RECOMMENDED LIMIT 4.0 - 6.0 ADA THERAPEUTIC TARGET < 7.0 ACTION SUGGESTED > 7.0 Performed By: #### C BC #### [facility] [address] [place] [address] Dr. Roscoe Segal Glucose [Mass/Vol] 217 mg/dL Normal [facility] Comment on above: Performed By: #### C BC #### [facility] [address] [address] [address] Roscoe Segal HbA1c (Bld) [Mass fraction] 9.2 % Critically high 4.5-6.2 [facility] Comment on above: Performed By: #### C BC #### [facility] [address] [place] [address] Dr. Roscoe Segal LIPID PROFILEon 12-24-2021 CHOL-HDL RATIO NORM SEE BELOW Normal [facility] Comment on above: Result Comment: 3.3 - 4.4 LOW RISK 4.4 - 7.1 AVERAGE RISK 7.1 - 11.0 MODERATE RISK >11.0 HIGH RISK Performed By: #### C BC #### [facility] [address] [place] [address] Dr. Roscoe Segal Cholesterol [Mass/Vol] 191 mg/dL Normal <=200 [facility] Comment on above: Performed By: #### C BC #### [facility] [address] [place] [address] Dr. Roscoe Segal Cholesterol in HDL [Mass/Vol] 52 mg/dL Normal 40-60 [facility] Comment on above: Performed By: #### C BC #### [facility] [address] [place] [address] Dr. Roscoe Segal Cholesterol in LDL [Mass/Vol] 95.6 mg/dL Normal [facility] Comment on above: Performed By: #### C BC #### [facility] [address] [place] [address] Dr. Roscoe Segal Cholesterol.total/Chol esterol in HDL [Mass ratio] 3.7 {ratio} Normal [facility] Comment on above: Performed By: #### C BC #### [facility] [address] [place] [address] Dr. Roscoe Segal HDL NORMAL > or = 60 mg/dl - LO W CARDIOVASCULAR RISK <40 mg/dl - HIGH CARDIOVASCULAR RISK Normal [facility] Comment on above: Performed By: #### C BC #### [facility] [address] [address] [address] Roscoe Segal LDL CALC NORMAL SEE BELOW Normal [facility] Comment on above: Result Comment: <100 mg/dl OPTIMAL 100 - 129 mg/dl NEAR OR ABOVE OPTIMAL 130 - 159 mg/dl BORDERLINE HIGH 160 - 189 mg/dl HIGH >190 mg/dl VERY HIGH Performed By: #### C BC #### [facility] [address] [place] [address] Dr. Roscoe Segal Triglyceride [Mass/Vol] 217 mg/dL Critically high <=150 [facility] Comment on above: Performed By: #### C BC #### [facility] [address] [place] [address] Dr. Roscoe Segal VLDL CALC 43.4 mg/dL Normal [facility] Comment on above: Performed By: #### C BC #### [facility] [address] [place] [address] Dr. Roscoe Segal MICROALBUMIN, RAND URon 12-14 mALB <1.3 Normal <=30.0 [facility] Comment on above: Performed By: #### P OCGLUC #### [facility] [address] [place] [address] Dr. Roscoe Segal PROF 14(COMP METB)on 022 Albumin [Mass/Vol] 3.0 g/dL Critically low 3.4-5.0 [facility] Comment on above: Performed By: #### C BC #### [facility] [address] [place] [address] Dr. Roscoe Segal Albumin/Globulin [Mass ratio] 0.9 {ratio} Normal [facility] Comment on above: Performed By: #### C BC #### [facility] [address] [place] [address] Dr. Roscoe Segal ALP [Catalytic activity/Vol] 72 U/L Normal 46-116 [facility] Comment on above: Performed By: #### C BC #### [facility] [address] [place] [address] Dr. Roscoe Segal ALT [Catalytic activity/Vol] 17 U/L Normal 14-59 [facility] Comment on above: Performed By: #### C BC #### [facility] [address] [address] [address] Roscoe Segal Anion gap [Moles/Vol] 12.3 mmol/L Normal [facility] Comment on above: Performed By: #### C BC #### [facility] [address] [address] [address] Roscoe Segal AST [Catalytic activity/Vol] 15 U/L Normal 15-37 [facility] Comment on above: Performed By: #### C BC #### [facility] [address] [address] [address] Roscoe Segal Bilirubin [Mass/Vol] 0.1 mg/dL Critically low 0.2-1.0 [facility] Comment on above: Performed By: #### C BC #### [facility] [address] [address] [address] Roscoe Segal Calcium [Mass/Vol] 8.9 mg/dL Normal 8.5-10.1 [facility] Comment on above: Performed By: #### C BC #### [facility] [address] [address] [address] Roscoe Segal Chloride [Moles/Vol] 102 mmol/L Normal 98-107 [facility] Comment on above: Performed By: #### C BC #### [facility] [address] [address] [address] Roscoe Segal CO2 [Moles/Vol] 24.0 mmol/L Normal 21.0-32.0 [facility] Comment on above: Performed By: #### C BC #### [facility] [address] [address] [address] Roscoe Segal Creatinine [Mass/Vol] 0.91 mg/dL Normal 0.55-1.02 [facility] Comment on above: Performed By: #### C BC #### [facility] [address] [address] [address] Roscoe Segal EGFR-AF BURKINAN >60 Normal >=60 [facility] Comment on above: Performed By: #### C BC #### [facility] [address] [address] [address] Roscoe Segal EGFR-NON AF BURKINAN >60 Normal >=60 [facility] Comment on above: Performed By: #### C BC #### [facility] [address] [address] [address] Roscoe Segal Globulin (S) [Mass/Vol] 3.4 g/dL Normal [facility] Comment on above: Performed By: #### C BC #### [facility] [address] [address] [address] Roscoe Segal Glucose [Mass/Vol] 309 mg/dL Critically high 74-106 T [facility] Comment on above: Performed By: #### C BC #### [facility] [address] [place] [address] Dr. Roscoe Segal Potassium [Moles/Vol] 4.3 mmol/L Normal 3.5-5.1 [facility] Comment on above: Performed By: #### C BC #### [facility] [address] [place] [address] Dr. Roscoe Segal Protein [Mass/Vol] 6.4 g/dL Normal 6.4-8.2 [facility] Comment on above: Performed By: #### C BC #### [facility] [address] [place] [address] Dr. Roscoe Segal Sodium [Moles/Vol] 134 mmol/L Critically low 136-145 Th [facility] Comment on above: Performed By: #### C BC #### [facility] [address] [place] [address] Dr. Roscoe Segal Urea nitrogen [Mass/Vol] 11.0 mg/dL Normal 7.0-18.0 [facility] Comment on above: Performed By: #### C BC #### [facility] [address] [place] [address] Dr. Roscoe Segal Urea nitrogen/Creatinine [Mass ratio] 12.1 mg/mg Normal [facility] Comment on above: Performed By: #### C BC #### [facility] [address] [address] [address] Roscoe Segal Glucose Glucometer (BldC) [M ass/Vol]on 01-02-2021 Glucose [Mass/Vol] 71 mg/dL [facility] Comment on above: Random Glucose Refer ence Range is dependent on time and content of last meal. Glucose of more than 200 mg/dL in a nonstressed, ambulatory subject supports the diagnosis of Diabetes Mellitus. No Panel Informationon 01-02 Bedside Glucose Comment See comment [facility] Comment on above: Glu2: WILL NOTIFY DR /RN COVID-19 Positive/Negativeon 12-31-2020 SARS-CoV-2 (COVID-19) N gene SOILA+probe Ql (Resp) Negative Negative [facility] Comment on above: Testing for SARS-CoV -2 by RT-PCRThis test was developed and its performance characteristics determined by [facility] [employer] and validated at the [facility]. This test has not been FDA cleared or approved. This test has been authorized by FDA under an Emergency Use Authorization (EUA). This test has been validated in accordance with the FDA's Guidance Document (Policy for Diagnostics Testing in Laboratories Certified to Perform High Complexity Testing under CLIA prior to Emergency Use Authorization for Coronavirus Disease-2019 during the Public Health Emergency) issued on November 16, 2019. This test is only authorized for the duration of time the declaration that circumstances exist justifying the authorization of the emergency use of in vitro diagnostic tests for detection of SARS-CoV-2 virus and/or diagnosis of COVID-19 infection under section 564(b)(1) of the Act, 21 U.S.C. 360bbb-3(b)(1), unless the authorization is terminated or revoked sooner. COVID-19 Positive/Negativeon 12-03-2020 SARS-CoV-2 (COVID-19) N gene SOILA+probe Ql (Resp) Negative Negative [facility] Comment on above: Reference: NegativeT esting for SARS-CoV-2 by RT-PCRThis test was developed and its performance characteristics determined by [facility] [employer] and validated at the [facility]. This test has not been FDA cleared or approved. This test has been authorized by FDA under an Emergency Use Authorization (EUA). This test has been validated in accordance with the FDA's Guidance Document (Policy for Diagnostics Testing in Laboratories Certified to Perform High Complexity Testing under CLIA prior to Emergency Use Authorization for Coronavirus Disease-2019 during the Public Health Emergency) issued on November 16, 2019. This test is only authorized for the duration of time the declaration that circumstances exist justifying the authorization of the emergency use of in vitro diagnostic tests for detection of SARS-CoV-2 virus and/or diagnosis of COVID-19 infection under section 564(b)(1) of the Act, 21 U.S.C. 360bbb-3(b)(1), unless the authorization is terminated or revoked sooner. Laboratory - Microbiology an d Antimicrobial susceptibilityon 12-03-2020 SARS-CoV-2 (COVID-19) RNA SOILA+probe Ql (Unsp spec) N/A [facility] Vital Signs Date Time Vital Sign Value Performing Clinician Faci lity 09-29-2023 15:07-0500 Body height 172.7 cm Naomi Bernard MD Work Phone: [facility] 09-29-2023 15:07-0500 Body mass index (BMI) [Ratio] 33.45 kg/m2 Naomi Bernard MD Work Phone: [facility] 09-29-2023 15:07-0500 Body weight 99.79 kg Naomi Bernard MD Work Phone: [facility] 09-29-2023 15:07-0500 Diastolic blood pressure 68 mm[Hg] Naomi Bernard MD Work Phone: [facility] 09-29-2023 15:07-0500 Systolic blood pressure 112 mm[Hg] Naomi Bernard MD Work Phone: [facility] 09-01-2023 09:30-0500 Body height 172.72 cm Bambi Sandy Other [facility] Other 09-01-2023 09:30-0500 Body mass index (BMI) [Ratio] 31.77 kg/m2 Bambi Sandy Other [facility] Other 09-01-2023 09:30-0500 Body temperature 97 [degF] Bambi Sandy Other [facility] Other 09-01-2023 09:30-0500 Body weight 94.8 kg Bambi Sandy Other [facility] Other 09-01-2023 09:30-0500 Diastolic blood pressure 90 mm[Hg] Bambi Sandy Other [facility] Other 09-01-2023 09:30-0500 Respiratory rate 20 /min Bambi Sandy Other [facility] Other 09-01-2023 09:30-0500 SaO2% (BldA) [Mass fraction] 93 % Bambi Sandy Other [facility] Other 09-01-2023 09:30-0500 Systolic blood pressure 134 mm[Hg] Bambi Sandy Other [facility] Other 08-06-2023 22:00-0500 Body temperature 97.4 [degF] MD Shaikh Cruz Work Phone: [facility] 08-06-2023 22:00-0500 Diastolic blood pressure 62 mm[Hg] MD Shaikh Cruz Work Phone: [facility] 08-06-2023 22:00-0500 Heart rate 95 /min MD Shaikh Cruz Work Phone: [facility] 08-06-2023 22:00-0500 Respiratory rate 22 /min MD Shaikh Cruz Work Phone: [facility] 08-06-2023 22:00-0500 SaO2% (BldA) [Mass fraction] 90 % MD Shaikh Cruz Work Phone: [facility] 08-06-2023 22:00-0500 Systolic blood pressure 112 mm[Hg] MD Shaikh Cruz Work Phone: [facility] 08-06-2023 20:37-0500 Inhaled oxygen flow rate 3 L/min MD Shaikh Cruz Work Phone: [facility] 08-06-2023 15:50-0500 Body height 172.72 cm MD Shaikh Cruz Work Phone: [facility] 08-06-2023 15:50-0500 Body weight 97.35 kg MD Shaikh Cruz Work Phone: [facility] 07-17-2023 00:22-0500 Diastolic blood pressure 72 mm[Hg] MD Shaikh Cruz Work Phone: [facility] 07-17-2023 00:22-0500 Heart rate 90 /min MD Shaikh Cruz Work Phone: [facility] 07-17-2023 00:22-0500 Inhaled oxygen flow rate 3 L/min MD Shaikh Cruz Work Phone: [facility] 07-17-2023 00:22-0500 Respiratory rate 18 /min MD Shaikh Cruz Work Phone: [facility] 07-17-2023 00:22-0500 SaO2% (BldA) [Mass fraction] 96 % MD Shaikh Cruz Work Phone: [facility] 07-17-2023 00:22-0500 Systolic blood pressure 118 mm[Hg] MD Shaikh Cruz Work Phone: [facility] 07-16-2023 20:56-0500 Body height 172.72 cm MD Shaikh Cruz Work Phone: [facility] 07-16-2023 20:56-0500 Body temperature 98.2 [degF] MD Shaikh Cruz Work Phone: [facility] 07-16-2023 20:56-0500 Body weight 97.2 kg MD Shaikh Cruz Work Phone: [facility] 07-05-2023 15:48-0500 Diastolic blood pressure 96 mm[Hg] MD Shaikh Cruz Work Phone: [facility] 07-05-2023 15:48-0500 Heart rate 91 /min MD Shaikh Cruz Work Phone: [facility] 07-05-2023 15:48-0500 Respiratory rate 20 /min MD Shaikh Cruz Work Phone: [facility] 07-05-2023 15:48-0500 SaO2% (BldA) [Mass fraction] 95 % MD Shaikh Cruz Work Phone: [facility] 07-05-2023 15:48-0500 Systolic blood pressure 160 mm[Hg] MD Shaikh Cruz Work Phone: [facility] 07-05-2023 13:49-0500 Body height 170.18 cm MD Shaikh Cruz Work Phone: [facility] 07-05-2023 13:49-0500 Body temperature 98.5 [degF] MD Shaikh Cruz Work Phone: [facility] 07-05-2023 13:49-0500 Body weight 97.8 kg MD Shaikh Cruz Work Phone: [facility] 06-20-2023 13:40-0500 Body height 172.72 cm Courtney Valladares Other [facility] Other 06-20-2023 13:40-0500 Body mass index (BMI) [Ratio] 32.47 kg/m2 Courtney Valladares Other [facility] Other 06-20-2023 13:40-0500 Body temperature 97.8 [degF] Courtney Valladares Other [facility] Other 06-20-2023 13:40-0500 Body weight 96.89 kg Courtney Valladares Other [facility] Other 06-20-2023 13:40-0500 Respiratory rate 20 /min Courtney Valladares Other [facility] Other 06-20-2023 13:40-0500 SaO2% (BldA) [Mass fraction] 91 % Courtney Valladares Other [facility] Other 03-14-2023 15:19-0400 Body temperature 97.5 [degF] MD Shaikh Cruz Work Phone: [facility] 03-14-2023 15:19-0400 Diastolic blood pressure 81 mm[Hg] MD Shaikh Cruz Work Phone: [facility] 03-14-2023 15:19-0400 Heart rate 83 /min MD Shaikh Cruz Work Phone: [facility] 03-14-2023 15:19-0400 Respiratory rate 18 /min MD Shaikh Cruz Work Phone: [facility] 03-14-2023 15:19-0400 SaO2% (BldA) [Mass fraction] 97 % MD Shaikh Cruz Work Phone: [facility] 03-14-2023 15:19-0400 Systolic blood pressure 145 mm[Hg] MD Shaikh Cruz Work Phone: [facility] 03-14-2023 03:51-0400 Body weight 94.1 kg MD Shaikh Cruz Work Phone: [facility] 03-13-2023 00:00-0400 Inhaled oxygen flow rate 2 L/min MD Shaikh Cruz Work Phone: [facility] 03-11-2023 16:04-0400 Body height 170.18 cm MD Shaikh Cruz Work Phone: [facility] 02-14-2023 14:30-0400 Body height 172.72 cm Katie Alberto Other [facility] Other 02-14-2023 14:30-0400 Body mass index (BMI) [Ratio] 14.93 kg/m2 Katie Alberto Other [facility] Other 02-14-2023 14:30-0400 Body temperature 97.8 [degF] Aktie Alberto Other [facility] Other 02-14-2023 14:30-0400 Body weight 44.54 kg Katie Alberto Other [facility] Other 02-14-2023 14:30-0400 Respiratory rate 18 /min Katie Alberto Other [facility] Other 02-14-2023 14:30-0400 SaO2% (BldA) [Mass fraction] 94 % Katie Alberto Other [facility] Other 01-02-2021 09:40-0400 Diastolic blood pressure 65 mm[Hg] Walker Alba Work Phone: [facility] 01-02-2021 09:40-0400 Heart rate 86 /min Walker Dudenhoefer Work Phone: [facility] 01-02-2021 09:40-0400 Respiratory rate 16 /min Walker Dudenhoefer Work Phone: [facility] 01-02-2021 09:40-0400 SaO2% (BldA) [Mass fraction] 95 % Walker Dudenhoefer Work Phone: [facility] 01-02-2021 09:40-0400 Systolic blood pressure 112 mm[Hg] Walker Dudenhoefer Work Phone: [facility] 01-02-2021 08:23-0400 Body height 172.72 cm Walker Dudenhoefer Work Phone: [facility] 01-02-2021 08:23-0400 Body mass index (BMI) [Ratio] 36.5 kg/m2 Walker Dudenhoefer Work Phone: [facility] 01-02-2021 08:23-0400 Body weight 108.86 kg Walker Dudenhoefer Work Phone: [facility] 01-02-2021 06:56-0400 Body temperature 98.7 [degF] Walker Dudenhoefer Work Phone: [facility] Encounters Encounter Date Encounter Type Care Provider Facility Start: 10-21-2023 End: 10-21-2023 ambulatory SHAIKH ANTHONY Not Available Start: 09-30-2023 End: 09-30-2023 ambulatory MARVIN Mckeon [facility] Start: 09-29-2023 End: 09-29-2023 ambulatory NAOMI BERNARD Not Available Start: 09-29-2023 End: 09-29-2023 Office outpatient new 45 minutes Naomi Bernard MD Work Phone: [facility] Comment on above: Hoarse (Primary Dx); Chronic laryngitis; Thrush Start: 09-29-2023 Bamboo flowsheet Naomi murphy MD Work Phone: [facility] Start: 09-29-2023 Bamboo flowsheet Naomi murphy MD Work Phone: [facility] Start: 09-25-2023 Chart abstracting Naomi hyatt MD Work Phone: [facility] [place] Start: 09-21-2023 End: 09-21-2023 ambulatory Bambi Sandy Other [facility] Other Start: 09-21-2023 Telephone encounter Bambi Sandy [facility] Start: 09-14-2023 End: 09-14-2023 ambulatory Bambi Sandy Other [facility] Other Start: 09-14-2023 Telephone encounter Bambi Sandy [facility] Start: 09-01-2023 End: 09-01-2023 ambulatory Bambi Sandy Other [facility] Other Start: 09-01-2023 Office outpatient visit 25 minutes Bambi Sandy [facility] Start: 08-30-2023 End: 08-30-2023 ambulatory Kamal Chaban Facility:[facility] Start: 08-30-2023 End: 08-30-2023 ambulatory MD Shaikh Cruz Work Phone: [facility] Work Phone: Start: 08-30-2023 End: 08-30-2023 Patient encounter procedure MD Shaikh Cruz Work Phone: [facility]-CT Scan [facility] [place] Work Phone: Start: 08-06-2023 End: 08-07-2023 Emergency department patient visit Marilee Marcum Facility:[facility] Start: 08-06-2023 End: 08-06-2023 Emergency department patient visit MD Shaikh Cruz Work Phone: [facility]-Emergency Room Work Phone: Start: 07-16-2023 End: 07-17-2023 Emergency department patient visit Yasmin Leung Facility:[facility] Start: 07-16-2023 End: 07-17-2023 Emergency department patient visit MD Shaikh Cruz Work Phone: [facility]-Emergency Room Work Phone: Start: 07-05-2023 End: 07-05-2023 Emergency department patient visit Shaikh Anthony Facility:[facility] Start: 07-05-2023 End: 07-05-2023 Emergency department patient visit MD Shaikh Cruz Work Phone: [facility]-Emergency Room Work Phone: Start: 06-20-2023 End: 06-20-2023 ambulatory Courtney Valladares Other [facility] Other Start: 06-20-2023 Office outpatient visit 25 minutes Courtney Valladares [facility] [place] Start: 04-09-2023 End: 04-09-2023 ambulatory Valeriano Horta Facility:[facility] Start: 04-09-2023 End: 04-09-2023 ambulatory MD Shaikh Cruz Work Phone: [facility] Work Phone: Start: 04-09-2023 End: 04-09-2023 Patient encounter procedure MD Shaikh Cruz Work Phone: [facility]-CT [address] Work Phone: Start: 03-16-2023 End: 03-16-2023 ambulatory Errol Nicole Other [facility] Other Start: 03-16-2023 Telephone encounter Errol Nicole [facility] Start: 03-10-2023 End: 03-14-2023 Evaluation and management of inpatient Krunal Prestonbonjessica Facility:[facility] Start: 03-10-2023 End: 03-14-2023 Evaluation and management of inpatient MD Shaikh Cruz Work Phone: [facility] [place] [facility] Work Phone: Start: 02-14-2023 End: 02-14-2023 ambulatory Katie Alberto Other [facility] [employer] Other Start: 02-14-2023 Office outpatient ne w 20 minutes Katie Alberto [facility] [place] Start: 12-01-2022 End: 12-02-2022 ambulatory STEPHENS H FAWWAD Facility:[facility] Start: 11-11-2022 End: 11-12-2022 ambulatory SHAIKH Karoline DENNISWWAD Facility:[facility] Start: 09-11-2022 End: 09-11-[address] GIOVANNY SINGH . Facility:[facility] Start: 07-24-2022 End: 07-24-2022 ambulatory STEPHENS H FAWWAD Facility:[facility] Start: 05-25-2022 End: 05-26-2022 ambulatory STEPHENS H FAWWAMary Facility:[facility] Start: 04-27-2022 End: 04-27-2022 ambulatory SHAIKH Karoline FAWWAMary Facility:[facility] Start: 04-25-2022 End: 04-25-2022 ambulatory AMILCAR SANDERS Facility:[facility] Start: 04-24-2022 ambulatory STEPHENS H FAWWAD Facilit y:[facility] Start: 04-10-2022 End: 04-11-2022 ambulatory STEPHENS H FAWWAD Facility:[facility] Start: 04-09-2022 End: 04-10-2022 ambulatory STEPHENS H SONNYWWAD Facility:[facility] Start: 03-29-2022 End: 03-29-2022 ambulatory STEPHENS H FAWWAD Facility:[facility] Start: 03-20-2022 End: 03-21-2022 ambulatory STEPHENS Karoline FAWWAD Facility:[facility] Start: 03-03-2022 End: 03-03-2022 ambulatory SHILPI MUÑOZ Facility:[facility] Start: 02-25-2022 End: 02-25-[address] VICK LEUNG Facility:[facility] Start: 01-01-2022 End: 01-01-2022 ambulatory AMILCAR SANDERS Facility:[facility] Start: 12-31-2021 End: 01-16-2022 ambulatory SHAIKH Karoline CRUZ Facility:[facility] Start: 12-24-2021 End: 12-25-2021 ambulatory SHAIKH Karoline CRUZ Facility:[facility] Start: 12-19-2021 ambulatory SHAIKH Karoline CRUZ Facilit y:[facility] Start: 06-10-2021 End: 06-14-2021 ambulatory UNKNOWN PROVIDER Facility:[facility] Start: 01-28-2021 End: 01-28-2021 Patient encounter procedure Walker Alba Work Phone: -Pre-Surgical Testing Start: 01-02-2021 End: 01-02-2021 Admission to same day surgery center Walker Alba Work Phone: -[facility] [place] Start: 12-31-2020 End: 12-31-2020 Patient encounter procedure Walker Alba Work Phone: -Pre-Surgical Testing Start: 12-24-2020 End: 12-24-2020 ambulatory UNKNOWN PROVIDER Facility:[facility] Start: 12-03-2020 End: 12-03-2020 Patient encounter procedure Walker Alba Work Phone: -Pre-Surgical Testing Start: 10-31-2020 End: 10-31-2020 Departed Referred Walker Alba Work Phone: -Pre-Surgical Testing Start: 10-31-2020 End: 10-31-2020 Patient encounter procedure Walker Alba Work Phone: -Pre-Surgical Testing Procedures Date Procedure Procedure Detail Performing Clinician Start: 08-30-2023 CT of chest without contrast MD Shaikh Elliot hardy Work Phone: Start: 08-06-2023 Plain chest X-ray MD Shaikh Cruz Work Phone: Start: 08-06-2023 SARS-CoV-2, Influenza & RSV (PCR) MD Shaikh Cruz Work Phone: Start: 07-16-2023 Plain chest X-ray MD Shaikh Cruz Work Phone: Start: 07-05-2023 SARS-CoV-2, Influenza & RSV (PCR) MD Shaikh Cruz Work Phone: Start: 07-05-2023 Plain chest X-ray MD Shaikh Cruz Work Phone: Start: 04-09-2023 CT of chest without contrast MD Shaikh Elliot hardy Work Phone: Start: 03-12-2023 CT of head without contrast MD Shaikh Sonny montiel Work Phone: Start: 03-12-2023 End: 03-12-2023 Plain chest X-ray MD Shaikh Cruz Work Phone: Start: 03-11-2023 Plain chest X-ray MD Shaikh Cruz Work Phone: Start: 03-11-2023 Fiberoptic bronchoscopy MD Shaikh Cruz Work Phone: Start: 03-11-2023 Fungal Culture Result 2 MD Shaikh Cruz Work Phone: Start: 03-11-2023 Fungal Culture Result 3 MD Shaikh Cruz Work Phone: Start: 03-11-2023 Mycology culture MD Shaikh Cruz Work Phone: Start: 03-11-2023 Respiratory microbial culture MD Shaikh Cruz Work Phone: Start: 03-10-2023 Blood culture for bacteria, including anaerobic screen MD Shaikh Cruz Work Phone: Start: 07-26-2023 CT of thorax with contrast MD Shaikh Raphael damon Work Phone: Start: 03-10-2023 Plain chest X-ray MD Shaikh Cruz Work Phone: Start: 01-02-2021 Phacoemulsification of cataract with intraocular lens implantation Walker Alba Work Phone: Plan of Treatment Date Care Activity Detail Author Start: 09-29-2023 End: 09-29-2023 Patient encounter procedure 09/29/2023 3:00 PM EST Office Visit [facility] [address] [facility] [address] [place] [id number] Naomi Bernard MD [address] [place] [address] [facility] Start: 07-16-2023 Plain chest X-ray XR chest 1V portable [facility] Start: 07-16-2023 XR Chest Single view [facility] Start: 03-14-2023 [facility] Start: 03-14-2023 Referral to Mounter Saxophones [facility] Start: 03-14-2023 [facility] Start: 03-11-2023 Plain chest X-ray XR chest 1V portable [facility] Start: 03-11-2023 XR Chest Single view [facility] Start: 03-11-2023 [facility] Start: 03-11-2023 Mycology culture Mycology Culture [facility] Start: 03-10-2023 Consultation [facility] Start: 03-10-2023 Hospital admission [facility] Start: 03-10-2023 Referral to thoracic surgeon [facility] Start: 03-10-2023 Blood culture for bacteria, including anaerobic screen Blood Culture [facility] Start: 03-10-2023 Drainage of Bilateral Lungs, Via Natural or Artificial Opening Endoscopic Drainage of Bilateral Lungs, Via Natural or Artificial Opening Endoscopic [facility] Start: 03-10-2023 Excision of Left Lower Lung Lobe, Via Natural or Artificial Opening Endoscopic, Diagnostic Excision of Left Lower Lung Lobe, Via Natural or Artificial Opening Endoscopic, Diagnostic [facility] Start: 2015 Screening for malignant neoplasm of breast Mammogram [facility] Start: 1994 Urine screening for protein Diabetes: Urine Protein Screening [facility] Start: 1985 Glaucoma screening Diabetes: Retinopathy Screening [facility] Start: 1975 Hemoglobin A1c measurement Diabetes: Hemoglobin A1C [facility] Start: 1975 Medicare Annual Wellness (AWV) Medicare Annual Wellness (AWV) [facility] Start: 1975 Screening for malignant neoplasm of colon [facility] Fungus identified in Unspecified specimen by Culture [facility] Mycobacterium sp identified in Unspecified specimen by Organism specific culture [facility] Patient Education [facility] Work Phone: Patient referral [facility] Payers Date Payer Category Payer Self-pay [id number] 2021 Medicare AETNA MEDICARE A DVANTAGE AETNA MEDICARE REPLACEMENT [id number] 2021-Present [address] [place] [address] [id number] 2020 Medicare [id number] 2020 Medicaid MEDICAID [facility] [id number] 2020-Present [phone] [address] [place] [address] Medicaid [id number] 1975 Unknown [id number] 2.16.840.1.265672.3.579.2.732 1975 Unknown [id number] 2.16.840.1.058626.3.579.2.732 1975 Unknown [id number] 2.16.840.1.429394.3.579.2.593 1975 Unknown [id number] 2.16.840.1.312404.3.579.2.593 1975 Unknown [id number] 2.16.840.1.863323.3.579.2.59 1975 Unknown [id number] 2.16.840.1.202159.3.579.2.593 1975 Unknown [id number] 2.16.840.1.519358.3.579.2.593 1975 Unknown [id number] 2.16.840.1.007693.3.579.2.59 1975 Unknown [id number] 2.16.840.1.756171.3.579.2.59 1975 Unknown [id number] 2.16840.1.994634.3.579.2.59 1975 Unknown [id number] 2.840.1.627119.3.579.2.59 1975 Unknown [id number] 2.16.840.1.403303.3.579.2.59 1975 Unknown [id number] 2.16.840.1.398175.3.579.2.59 1975 Unknown [id number] 2.16.840.1.699635.3.579.2.59 1975 Unknown [id number] 2.16.840.1.892149.3.579.2.59 1975 Unknown [id number] 2.16.840.1.511577.3.579.2.59 1975 Unknown [id number] 2.16.840.1.297883.3.579.2.59 1975 Unknown [id number] 2.16.840.1.963888.3.579.2.593 1975 Unknown [id number] 2.16.840.1.888341.3.579.2.593 1975 Unknown [id number] 2.16.840.1.960323.3.579.2.593 1975 Unknown [id number] 2.16.840.1.094392.3.579.2.1286 1975 Unknown [id number] 2.16.840.1.694755.3.579.2.1259 1975 Unknown [id number] 2.16.840.1.161708.3.579.2.1259 1959 Medicaid [id number] 1959 Medicare [id number] Unknown [id number] Unknown [id number] 2.16.840.1.641317.3.579.2.531 Unknown [id number] 2.16.840.1.636706.3.579.2.531 Unknown [id number] 2.16.840.1.805522.3.579.2.531 Unknown [id number] 2.16.840.1.980354.3.579.2.531 Unknown [id number] 2.16.840.1.697384.3.579.2.531 Unknown [id number] 2.16.840.1.883635.3.579.2.531 Social History Date Type Detail Facility Start: 10-31-2020 End: 08-06-2023 Tobacco smoking status MNIS Smoker (finding) [facility] Start: 1975 Sex Assigned At Female F [facility] Start: 09-06-2023 End: 09-28-2023 Sex Assigned At [facility] Start: 09-06-2023 Tobacco smoking stat us [facility] Smokes tobacco daily [facility] History of tobacco use [facility]igarette Smoker [facility] Start: 09-06-2023 End: 09-28-2023 Cigarettes smoked current (pack per day) - Reported 1.5 [facility] Start: 09-06-2023 Tobacco use and exposure Smokeless tobacco non-user [facility] Start: 09-25-2023 End: 09-29-2023 Alcohol intake Current drinker of alcohol (finding) [facility] How often to you hav e a drink containing alcohol? Monthly or less [facility] How many standard drinks containing alcohol do you have on a typical day? 1 or 2 [facility] Frequency of Binge Drinking Not on file [facility] Start: 07-12-2023 Alcohol Comment caffeine: 3-4 cans pop daily [facility] Start: 1975 Sex Assigned At Not on file [facility] Medical Equipment Procedure Code Equipment Code Equipment Origin al Text Equipment Identifier Dates Phacoemulsification of cataract with intraocular lens implantation Posterior-chamber intraocular lens, pseudophakic ()[id number] FDA Start: 01-02-2021 Phacoemulsification of cataract with intraocular lens implantation Posterior-chamber intraocular lens, pseudophakic ()[id number] FDA Start: 2021 Inject under the skin if needed. Use as instructed [id number] 4 (four) times a day as needed. [id number] Inject under the skin if needed. Use as instructed [id number] Goals Date Patient Goal Desired Activity /State Functional Status Date Assessment Result Facility 03-14-2023 Functional status Patient at Baseline [facility] Work Phone: Mental Status Date Assessment Result Facility 03-14-2023 Cognitive function Cognitive Sta tus Patient at Baseline [facility] Work Phone: Clinical Notes 04-10-2022 to 09-29-2023 Naomi Bernard MD - 09/29/2023 3:00 PM EST Note Date & Type Note Facility 09-29-2023 History of Presen t illness Narrative Subjective Patient ID: Christiane Perez is a 48 y.o. female who presents for Hoarseness (X 4-5 mo). Pt reports she has been hoarse at least 4 months. Sx intermittent, but it has been bad since June. Pt smokes 2ppd. Pt drinks periodically. Some throat pain. Some marguerite ear pain. Some dysphagia. Gaining wt. Steroids helped. Review of Systems All other systems reviewed and are negative. Family History Problem Relation Name Age of Onset Diabetes Mother Breast cancer Mother Diabetes Father Active Ambulatory Problems Diagnosis Date Noted Abscess of upper lobe of left lung with pneumonia ([facility]) 04/12/2023 Anxiety 09/06/2023 Bipolar disorder ([facility]) 09/06/2023 Current smoker 09/06/2023 History of migraine 09/06/2023 Hypertension ([facility]) 09/06/2023 Diabetes mellitus ([facility]) 09/06/2023 Hypoglycemia 01/10/2020 Neck pain 09/06/2023 Non-traumatic rhabdomyolysis 01/10/2020 Other insomnia 11/05/2022 Pelvic pain 09/06/2023 COPD (chronic obstructive pulmonary disease) ([facility]) 09/06/2023 Resolved Ambulatory Problems Diagnosis Date Noted No Resolved Ambulatory Problems Past Medical History: Diagnosis Date Abscess of left lung with pneumonia ([facility]) Back spasm Benign essential hypertension ([facility]) Bilateral edema of lower extremity Bipolar 1 disorder ([facility]) Bipolar 1 disorder, mixed, full remission ([facility]) Chronic respiratory failure with hypoxia ([facility] Controlled diabetes mellitus with long-term current use of insulin ([facility]) COPD exacerbation ([facility]) COPD, severe ([facility]) Diabetic neuropathy ([facility]) Dyslipidemia ([facility] [facility] [place] (generalized anxiety disorder) ([facility] Gastroesophageal reflux disease, unspecified whether esophagitis present Genital herpes Greater trochanteric bursitis, right Hyperammonemia ([facility]) Insomnia [facility] (current) use of inhaled steroids Low back pain, episodic Lung abscess ([facility]) Mild degeneration of cervical intervertebral disc Muscle weakness (generalized) Nicotine dependence, cigarettes, with other nicotine-induced disorders Non-compliance with treatment Obstructive sleep apnea Opioid abuse ([facility]) Poorly controlled type 2 diabetes mellitus ([facility]) Right hip pain Shortness of breath Smoking Tobacco user Weight loss Past Surgical History: Procedure Laterality Date ADENOIDECTOMY BREAST SURGERY 1997 Reduction CHOLECYSTECTOMY 08/27/2011 OTHER SURGICAL HISTORY Incision and Drainage TONSILLECTOMY TOTAL ABDOMINAL HYSTERECTOMY 2009 Allergies Allergen Reactions Imitrex [Sumatriptan] Shortness of breath and Anxiety Current Outpatient Medications on File Prior to Visit Medication Sig Dispense Refill albuterol (2.5 MG/3ML) 0.083% nebulizer solution Take by nebulization every 4 (four) hours if needed for wheezing. albuterol HFA 90 mcg/act inhaler Inhale 2 puffs every 4 (four) hours if needed for wheezing or shortness of breath 6.7 g 1 atorvastatin (Lipitor) 40 MG tablet Take 40 mg by mouth in the morning. Cmgjllu-Uxedqaviqgp-Tzkrbapvfy (Breztri Aerosphere) 160-9-4.8 MCG/ACT aerosol Inhale. Continuous Blood Gluc Oven Heater Helper (FreeStyle Magali 14 Day [place]) device 4 (four) times a day as needed. Continuous Blood Gluc Sensor (FreeStyle Magali 14 Day Sensor) misc 4 (four) times a day as needed. dulaglutide (Trulicity) 1.5 MG/0.5ML solution pen-injector Inject 1.5 mg under the skin 1 (one) time per week. escitalopram (Lexapro) 20 MG tablet Take 20 mg by mouth in the morning. Farxiga 10 MG TAKE 1 TABLET BY MOUTH EVERY DAY 90 tablet 0 gabapentin (Neurontin) 800 MG tablet TAKE 1 TABLET BY MOUTH THREE TIMES A DAY 90 tablet 0 Glucose Blood (ACCU-CHEK LAURO PLUS ) by In Vitro route. Glucose Blood (BLOOD GLUCOSE TEST ) 3 (three) times a day. guaiFENesin (Mucinex) 600 MG 12 hr tablet Take 1,200 mg by mouth in the morning and 1,200 mg before bedtime. Do not crush, chew, or split. . ibuprofen 800 MG tablet TAKE 1 TABLET BY MOUTH THREE TIMES A DAY 90 tablet 0 insulin aspart (NovoLOG FLEXPEN) 100 UNIT/ML pen Inject 10 Units under the skin in the morning and 10 Units at noon and 10 Units in the evening. Inject before meals. 10 units plus sliding scale TID with meals. Max daily use 50 units per day.. insulin glargine (Basaglar KwikPen) 100 UNIT/ML pen Inject 20 Units under the skin in the morning. 18 mL 0 insulin pen needle (1st Tier Unifine Pentips) 31G x 5 mm misc Inject under the skin if needed. Use as instructed lamoTRIgine (LaMICtal) 150 MG tablet Take 150 mg by mouth. LORazepam (Ativan) 1 MG tablet Take 1 mg by mouth in the morning and 1 mg before bedtime. omeprazole (PriLOSEC) [address] capsule TAKE 1 CAPSULE BY MOUTH EVERY DAY 90 capsule 0 OneTouch Delica Lancets 33G misc 4 (four) times a day as needed. pen needle 31G x 5 mm misc Inject under the skin if needed. Use as instructed SITagliptin-metFORMIN ER (Janumet XR) 100-1000 MG per 24 hr tablet Take 1 tablet by mouth in the morning. Take with meals. tiZANidine (Zanaflex) 4 MG tablet TAKE 1 TABLET BY MOUTH THREE TIMES A DAY NEEDED 270 tablet 0 [DISCONTINUED] ibuprofen 800 MG tablet TAKE 1 TABLET BY MOUTH THREE TIMES A DAY 90 tablet 0 No current facility-administered medications on file prior to visit. Objective Last Recorded Vitals Vitals: 09/29/23 1507 BP: 112/68 ENT Physical Exam Constitutional Appearance: patient appears well-developed, well-nourished and well-groomed, Head and Face Appearance: head appears normal and face appears atraumatic; Ear Ear Canals: right ear canal normal; left ear canal normal; Tympanic Membranes: right tympanic membrane normal; left tympanic membrane normal; Nose External Nose: nares patent bilaterally; external nose normal; Internal Nose: septum normal; Oral Cavity/Oropharynx Tongue: normal; Oral mucosa: normal; Hard palate: normal; Soft palate: normal; Tonsils: normal; OC/OP comments: Thrush Neck Neck: neck normal; neck palpation normal; Thyroid: thyroid normal; Respiratory Inspection: breathing unlabored; normal breathing rate; Auscultation: breath sounds are clear; Cardiovascular Inspection: extremities are warm and well perfused; no peripheral edema present; Auscultation: regular rate and rhythm; Patient ID: Christiane Perez is a 48 y.o. female. Procedures A diagnostic flexible fiberoptic laryngoscopy was performed. The flexible fiberoptic laryngoscope was placed into the nose and advanced to the level of the tip of the epiglottis. Examination of the larynx including both surfaces of the epiglottis false and true vocal folds, arytenoids and surrounding mucosal surfaces show no evidence of lesion, ulceration or mass. Normal bilateral true vocal fold motion is present. Bilateral piriform sinuses and base of tongue appear without lesion. There are yeast plaques on the endolarynx Assessment/Plan Diagnoses and all orders for this visit: Hoarse Chronic laryngitis Thrush Pt's hoarseness is due to chronic laryngitis. This is exacerbated by her smoking and her thrush. I reviewed tips to avoid thrush with inhalers. Also starting diflucan and nystatin. documented in this encounter [facility] 09-01-2023 Evaluation note Encounter Date Diagnosis Assessment Notes Aug, Abscess of upper lobe of left lung with pneumonia (ICD-10 - J85.1) Your Chest CT scan showed lung infection has resolved with residual scarring noted. Aug, Chronic obstructive pulmonary disease, unspecified COPD type (ICD-10 - J44.9) Aug, Tobacco use disorder (ICD-10 - F17.200) Strongly recommend attending Tobacco cessation program at [facility] to help you get started on stopping smoking. Aug, Voice hoarseness (ICD-10 - R49.0) Rerferral ENT: Patient requests Dr. [facility] 11-05-2023 Evaluation note* Encounter Date Diagnosis Assessment Notes Treatment Notes Treatment Clinical Notes Jun, Sore throat (ICD-10 - J02.9) Jun, Acute viral bronchitis (ICD-10 - J20.8) Advised patient that rapid Strep test was negative today in office. No other testing performed. Discussed diagnosis with patient in detail. Will treat as viral today based on physical exam and duration of symptoms, antibiotics are not indicated for viral infections. Advised patient that viral syndromes last 7-10 days, cough may linger for 3 weeks. Take medications as prescribed, reviewed side effects of steroid, take with food and plenty of water. Supportive care as directed, push fluids and rest, may use Tylenol/Motrin as needed for fever/discomfort, cool mist humidifier. May use Hernshaw as needed for cough, do not take any other OTCs while using Hernshaw. Patient to follow up with PCP in 2-3 days. Immediate eval if SOB, difficulty breathing, chest pain, dizziness, or other concerning symptoms. Patient verbalizes understanding and is agreeable to treatment plan. [facility] 07-30-2023 Progress note Author Krunal Kelly [facility] March 14, 2023 11:40am Note Date/Time March 14, 2023 11:4 0am [facility] [address] [place], [place] [id number] Hospitalist Progress Note Signed Patient: Christiane Perez MR#: [id number] : 1975 Acct:[id number] Age/Sex: 48 / F Adm Date: 3 Loc: 3T Room: [address] [place] [address] Type: ADM IN Attending Dr: Krunal Kelly DO Copies to: ~ Date of Service: 03/14/2023 Subjective Subjective Narrative: Today the patient reports that these unusual pains that she was getting in her left shoulder and along the rib cage on the left axillary line are little bit better. She says that she can feel the pain is a deeper pain in the left side of her upper chest but she feels like that is getting a little bit better 2. She has a mild cough but not really expectorating much in the way of sputum. Overall she is feeling a little bit better. No more episodes of confusion. No sores in her mouth. No vaginal yeast infection symptoms. Is having moderate amount of loose stools but no jg diarrhea. No abdominal pain or abdominal cramping. She is accompanied by a friend at the bedside who happens to be a nurse and a teacher at the nursing school. Together they are discussing smoking cessation. One of the patient's family members was able to stop smoking cigarettes by usinghypnosis and that was very successful. I myself do not know of any where in theregion that does hypnosis for smoking cessation but encouraged the patient to use every resource available to her for smoking cessation. We discussed smokingcessation in the home by getting it out of the home and also getting out of the car where she does smoke which gets in the car to drive. Here in the hospital she has not had significant cravings. And she has been hospitalized for severaldays now. We also discussed oxygen use. It is unclear to me why the patient needs to use oxygen at home sometimes. She describes being life flighted to [place] 2 times. One was about 7 years ago one was about 3 years ago. At one point she was prescribed something on the order of 6 or 10 L of oxygen at home. But here in the hospital most the time she is doing well and right now in the room sitting in bed she had oxygen saturations of 94 to 95% on room air at rest. So I encouraged her that with smoking cessation I think that she could definitely improve her overall condition in the long run. Exam Physical Exam Vital Signs: Temp Pulse Resp BP Pulse Ox O2 Del Method O2 Flow Rate 97.9 F 74 20 146/90 H 94 L Room Air 2 03/14/23 07:16 03/14/23 08:27 03/14/23 08:27 03/14/23 07:16 03/14/23 07:16 03/14/23 08:27 03/13/23 00:00 Narrative: General: Sitting up on side of the bed. Visiting with a close friend. Pulmonary: Diminished in the left upper lobe and a vague way. No focal areas ofcrackles. No wheezing. Right now she is on room air. The rest lung sounds areclear. Heart: RRR, No M,R or G. Regular rate and rhythm to auscultation. GI: Normal bowel sounds to auscultation. Ext: No edema to both legs and no changes to both calves. Objective Lab Results 03/14/23 06:29 03/14/23 06:29 Microbiology Results Microbiology 03/11/23 14:40 Bronchial Washings - Left Upper Lobe Bronchial Culture - Final Janine tropicalis Janine albicans 03/11/23 13:30 Sputum - Expectorated Aerobic Culture - Final Janine tropicalis Janine albicans 03/11/23 13:30 Sputum - Expectorated Gram Stain - Final Meds Allergies and Active Meds Allergies sumatriptan [From Imitrex] Allergy (Verified 03/10/23 12:17) Hives Active Meds: Active Medications Generic Name Dose Route Start Last Admin Trade Name Freq PRN Reason Stop Dose Admin Acetaminophen 650 mg 03/13/23 15:09 Acetaminophen 325 Mg Tablet PO 03/12/24 15:08 Q4H PRN Pain Hydrocodone Bitart/Acetaminophen 1 tab 03/10/23 16:33 03/14/23 07:10 Hydrocodone/Acetaminophen 5-325 Mg Tablet PO 1 tab Q4H PRN Administration Pain Scale 4 - 7 Albuterol/Ipratropium 3 ml 03/10/23 20:00 03/14/23 08:26 Ipratropium/Albuterol 0.5-3 Mg 3 Ml Ampul.Neb INHALATION 03/09/24 19:59 3 ml QID.RESP ROGELIO Administration Atorvastatin Calcium 40 mg 03/11/23 09:00 03/14/23 08:15 Atorvastatin 40 Mg Tablet PO 03/10/24 08:59 40 mg DAILY ROGELIO Administration Canagliflozin 300 mg 03/11/23 09:00 03/14/23 08:14 Canagliflozin 300 Mg Tablet PO 03/10/24 08:59 300 mg DAILY ROGELIO Administration Dextrose 0 gm 03/10/23 16:39 03/11/23 15:05 Dextrose 50% In Water 25 Gm/50 Ml Syringe IV-PUSH 03/09/24 16:38 25 gm PRN PRN Administration Hypoglycemia Escitalopram Oxalate 20 mg 03/11/23 09:00 03/14/23 08:14 Escitalopram 20 Mg Tablet PO 03/10/24 08:59 20 mg DAILY ROGELIO Administration Fluticasone Propionate 1 puff 03/11/23 09:00 03/14/23 08:26 Fluticasone Propionate 110 120 Puff/12 Gm Inhaler INHALATION 03/10/24 08:59 1 puff BID ROGELIO Administration Gabapentin 400 mg 03/12/23 22:00 03/14/23 08:15 Gabapentin 800 Mg Tablet PO 03/11/24 21:59 400 mg TID ROGELIO Administration Glucose 0 gm 03/10/23 16:39 Dextrose 40% Gel 15 Gm Tube PO 03/09/24 16:38 PRN PRN Hypoglycemia Heparin Sodium (Porcine) 5,000 unit 03/10/23 21:00 03/14/23 08:17 Heparin 5,000 Unit/Ml Vial SUBCUT 03/09/24 20:59 5,000 unit Q12HR ROGELIO Administration Hydralazine HCl 10 mg 03/10/23 16:33 Hydralazine 20 Mg/Ml Vial IV-PUSH 03/09/24 16:32 Q4H PRN Hypertension Piperacillin Sod/Tazobactam Sod 3.375 gm in 100 mls @ 200 mls/hr 03/10/23 20:30 03/14/23 03:42 Zosyn IV 200 mls/hr Q6H ROGELIO Administration Magnesium Sulfate 2 gm in 50 mls @ 25 mls/hr 03/10/23 16:33 Magnesium Sulf 2gm-*Swfi* IV 03/09/24 16:32 DAILY PRN Magnesium Level < 1.5 Vancomycin HCl 1 gm in 250 mls @ 250 mls/hr 03/10/23 23:00 03/14/23 08:15 Vancomycin IV Infused Q8H ROGELIO Infusion Ibuprofen 800 mg 03/10/23 22:00 03/14/23 08:14 Ibuprofen 800 Mg Tablet PO 03/09/24 21:59 800 mg TID ROGELIO Administration Insulin Aspart 0 units 03/10/23 17:00 03/14/23 08:15 Insulin Aspart 300 Units/3 Ml Insuln.Pen SUBCUT 03/09/24 16:59 Not Given TID.WM.HS ROGELIO Protocol Insulin Glargine 10 units 03/12/23 21:00 03/13/23 21:04 Insulin Glargine 300 Units/3 Ml Insuln.Pen SUBCUT 03/11/24 20:59 10 units QPM ROGELIO Administration Lamotrigine 150 mg 03/10/23 21:00 03/14/23 08:14 Lamotrigine 100 Mg Tablet PO 03/09/24 20:59 150 mg BID ROGELIO Administration Morphine Sulfate 2 mg 03/10/23 16:33 03/14/23 08:15 Morphine Sulfate 2 Mg/Ml Vial IV-PUSH 2 mg Q4H PRN Administration Pain Scale 8 - 10 Pantoprazole Sodium 40 mg 03/11/23 09:00 03/14/23 08:14 Pantoprazole 40 Mg Tablet. PO 03/10/24 08:59 40 mg BID ROGELIO Administration Potassium Chloride 20 meq 03/10/23 16:33 Potassium Chloride Er 20 Meq Tab.Er.Prt PO 03/09/24 16:32 DAILY PRN Hypokalemia Risperidone 1 mg 03/10/23 21:00 03/14/23 08:14 Risperidone 1 Mg Tablet PO 03/09/24 20:59 1 mg BID ROGELIO Administration Sodium Chloride 0 ml 03/10/23 12:17 03/13/23 09:12 Sodium Chloride 0.9 % 10 Ml Syringe IV-PUSH 03/09/24 12:16 10 ml PRN PRN Administration Flush Trazodone HCl 50 mg 03/10/23 16:37 03/12/23 21:23 Trazodone 50 Mg Tablet PO 03/09/24 16:36 50 mg QHS PRN Administration Insomnia Vancomycin HCl 1 each 03/10/23 16:31 Vancomycin - Pharmacy Dosing 1 Each Miscell IV PRN PRN ZZ.Pharmacy Consult Protocol A&P - Hospitalist Assessment/Plan (1) Abscess of left lung with pneumonia: (2) Pneumonia: (3) Diabetes mellitus, type 2: (4) COPD (chronic obstructive pulmonary disease): (5) Lung mass: (6) Tobacco abuse: Plan Assessment: Left upper lobe abnormality. Possibility of very large abscess. Possibility of necrotizing ammonia. Possibility of malignancy. Status post bronchoscopy and bronchoalveolar lavage on 03/11/2023. History of COPD. History of intermittent supplemental oxygen use at home before this. Diabetes mellitus type 2. Pleuritic left sided chest pain which would be expected given the size and severity of this large abnormality. BMI 32.6. Preliminary growth of Janine tropicalis and albicans on the bronchial velar washings. Per pulmonology we will wait for the final pathology before deciding whether to target with antifungal agents or not. Plan: Appreciate pulmonology input. Continue antibiotics with vancomycin and Zosyn. Continue to check daily labs. White blood count has improved nicely. Check hemoglobin A1c to see what her baseline is. Diabetes control has been fair here in the hospital. Continued scheduled NSAIDs for pain control. Tylenol available as needed mild pain and oral Buhl and IV morphine as needed more severe pain. Okay to remove telemetry monitoring at this time. DVT prophylaxis with heparin 5000 units subcutaneously twice a day. Documented By: Krunal Kelly DO [id number] Signed By: <Electronically signed by Krunal Kelly, > 03/14/23 1140 [facility] Work Phone: 1(829) 705-598107-30-2023 Progress note Author Víctor Stallings [facility] March 14, 2023 1:43pm Note Date/Time March 14, 2023 9:20 am [facility] [address] [place] [address] Pulmonology Progress Note Signed Patient: Christiane Perez MR#: [id number] : 1975 Acct:[id number] Age/Sex: 48 / F Adm Date: 3 Loc: Room: [address] [place] [address] Type: ADM IN Attending Dr: Krunal Kelly DO Copies to: ~ Date of Service: 03/14/2023 Subjective Subjective Narrative: Patient is clinically stable with improvement in mental status. She has no respiratory complaints. She has not had any fever. Exam Physical Exam Vital Signs: Temp Pulse Resp BP Pulse Ox O2 Del Method O2 Flow Rate 97.9 F 74 20 146/90 H 94 L Room Air 2 03/14/23 07:16 03/14/23 08:27 03/14/23 08:27 03/14/23 07:16 03/14/23 07:16 03/14/23 08:27 03/13/23 00:00 Const General: cooperative Orientation: alert and awake HEENT Head: normal to inspection Ears: hearing grossly normal bilaterally and external ears normal Nose: external nose normal Face and sinus: normal facial exam Eyes Sclera: sclerae normal Neck Neck: normal visual inspection Resp Effort & Inspection: normal respiratory effort Auscultation: clear to auscultation bilaterally, diminished lung sounds, no rales, no rhonchi and no wheezes Cardio Rate: regular rate Rhythm: regular rhythm Heart Sounds: S1 normal, S2 normal and no murmurs GI Inspection: normal to inspection Palpation: soft and nontender General: deferred Skin General: no rashes or lesions noted (Warm and dry) Extrem General: no pedal edema Objective Intake and Output I&O - Last 24 Hours: Intake & Output 03/13/23 03/14/23 03/14/23 23:59 07:59 15:59 Intake Total 850 / 1650 450 / 700 250 / 700 Balance 850 / 1650 450 / 700 250 / 700 Weight 94.1 kg Labs 03/14/23 06:29 03/14/23 06:29 Microbiology Micro: Microbiology 03/11/23 14:40 Bronchial Culture - Final Bronchial Washings - Left Upper Lobe Janine tropicalis Janine albicans 03/11/23 13:30 Aerobic Culture - Final Sputum - Expectorated Janine tropicalis Janine albicans Gram Stain - Final Assessment/Plan Assessment/Plan (1) Lung mass: (2) COPD (chronic obstructive pulmonary disease): (3) Tobacco abuse: Plan Hospital day #4 for patient admitted for left upper lobe cavitary lesion with concern for lung abscess versus cavitary malignancy. Patient has multiple formsof Janine in sputum and bronchial washing but does not appear to be toxic. Abscess is still favored. Patient is stable for discharge home and can follow-up as an outpatient. I would recommend completing a 6-week course of Augmentin in place of her Zosyn with recommendation for follow-up CT scan in 6 weeks and follow-up in our office after the CT scan. I have called the office to arrange for follow-up in 6 to 8 weeks. We will of course need to follow-up on bronchoscopy results to ensure that this is not malignancy. Patient is stable for discharge from a pulmonary perspective and is agreeable to discharge. Documented By: Víctor Stallings MD 3 [id number] Signed By: <Electronically signed by MD Víctor Stallings> 03/14/23 [facility] Work Phone: 1(248) 997-755807-29-2023 Progress note Author Krunal Kelly [facility] March 13, 2023 3:14pm Note Date/Time March 13, 2023 3:15 pm [facility] [address] [place] [address] Hospitalist Progress Note Signed Patient: Christiane Perez MR#: [id number] : 1975 Acct:[id number] Age/Sex: 48 / F Adm Date: 3 Loc: Room: [address] [place] [address] Type: ADM IN Attending Dr: Krunal Kelly DO Copies to: ~ Date of Service: 03/13/2023 Subjective Subjective Narrative: Patient reports that her sensation of cough and her sensation of pleuritic pain on the left side of her chest is a little bit better. She admits that she is feeling a little bit better overall. She is also long way to go. She woke up this morning with pain in the ribs underneath the axilla on the left side and atfirst told the nurse she did not need anything for it but then the pain got worse so she did take a pain pill for this. She admits yesterday she was confused and she can tell that she was confused. That is better today. No specific etiology for the confusion was found. CT scanning of the brain was normal. Her appetite is fair. No diarrhea constipation. She says that she is sleeping well. She and her family asked if she could walk around outside. I told her the nursing rules are that she has stay on the unit that she is on. She is wearing a case monitor. I do not think that we are in a situation where weneed to monitor her heart rhythm anymore so this be taken off. I did encourage her to get some ambulation in the hallways here. Exam Physical Exam Vital Signs: Temp Pulse Resp BP Pulse Ox O2 Del Method O2 Flow Rate 98.1 F 76 20 139/78 96 Room Air 2 03/13/23 08:00 03/13/23 12:38 03/13/23 12:38 03/13/23 11:52 03/13/23 11:52 03/13/23 11:52 03/13/23 00:00 Narrative: This is the first time I am seeing this patient, taking over for my hospitalist colleague who saw her for the first 3 days. General: Sitting up on side of the bed. Visiting with about half a dozen familymembers. Pulmonary: Diminished in the left upper lobe and a vague way. No focal areas ofcrackles. No wheezing. Right now she is on room air. The rest lung sounds areclear. Cardiac: Regular rate rhythm. Normal sinus rhythm on the monitor. No ectopy. Objective Lab Results 03/13/23 06:32 03/13/23 06:32 Microbiology Results Microbiology 03/11/23 14:40 Bronchial Washings - Left Upper Lobe Bronchial Culture - Final Janine tropicalis Janine albicans 03/11/23 13:30 Sputum - Expectorated Aerobic Culture - Final Janine tropicalis Janine albicans 03/11/23 13:30 Sputum - Expectorated Gram Stain - Final 03/11/23 14:40 Bronchial Washings - Left Upper Lobe AFB Smear Concentration - Final 03/11/23 14:40 Bronchial Washings - Left Upper Lobe Acid Fast Bacilli Smear - Final 03/11/23 14:40 Bronchial Washings - Left Upper Lobe Gram Stain - Final 03/11/23 14:40 Bronchial Washings - Left Upper Lobe Fungal Smear - Final 03/10/23 12:53 Blood - Left Hand Blood Culture - Preliminary No Growth 2 Days 03/10/23 12:41 Blood - Left Antecubital Blood Culture - Preliminary No Growth 2 Days Meds Allergies and Active Meds Allergies sumatriptan [From Imitrex] Allergy (Verified 03/10/23 12:17) Hives Active Meds: Active Medications Generic Name Dose Route Start Last Admin Trade Name Isabelle PRN Reason Stop Dose Admin Acetaminophen 650 mg 03/13/23 15:09 Acetaminophen 325 Mg Tablet PO 03/12/24 15:08 Q4H PRN Pain Hydrocodone Bitart/Acetaminophen 1 tab 03/10/23 16:33 03/13/23 07:01 Hydrocodone/Acetaminophen 5-325 Mg Tablet PO 1 tab Q4H PRN Administration Pain Scale 4 - 7 Albuterol/Ipratropium 3 ml 03/10/23 20:00 03/13/23 12:37 Ipratropium/Albuterol 0.5-3 Mg 3 Ml Ampul.Neb INHALATION 03/09/24 19:59 3 ml QID.RESP ROGELIO Administration Atorvastatin Calcium 40 mg 03/11/23 09:00 03/13/23 09:15 Atorvastatin 40 Mg Tablet PO 03/10/24 08:59 40 mg DAILY ROGELIO Administration Canagliflozin 300 mg 03/11/23 09:00 03/13/23 09:16 Canagliflozin 300 Mg Tablet PO 03/10/24 08:59 300 mg DAILY ROGELIO Administration Dextrose 0 gm 03/10/23 16:39 03/11/23 15:05 Dextrose 50% In Water 25 Gm/50 Ml Syringe IV-PUSH 03/09/24 16:38 25 gm PRN PRN Administration Hypoglycemia Escitalopram Oxalate 20 mg 03/11/23 09:00 03/13/23 09:16 Escitalopram 20 Mg Tablet PO 03/10/24 08:59 20 mg DAILY ROGELIO Administration Fluticasone Propionate 1 puff 03/11/23 09:00 03/13/23 08:50 Fluticasone Propionate 110 120 Puff/12 Gm Inhaler INHALATION 03/10/24 08:59 1 puff BID ROGELIO Administration Gabapentin 400 mg 03/12/23 22:00 03/13/23 14:39 Gabapentin 800 Mg Tablet PO 03/11/24 21:59 400 mg TID ROGELIO Administration Glucose 0 gm 03/10/23 16:39 Dextrose 40% Gel 15 Gm Tube PO 03/09/24 16:38 PRN PRN Hypoglycemia Heparin Sodium (Porcine) 5,000 unit 03/10/23 21:00 03/13/23 09:16 Heparin 5,000 Unit/Ml Vial SUBCUT 03/09/24 20:59 5,000 unit Q12HR ROGELIO Administration Hydralazine HCl 10 mg 03/10/23 16:33 Hydralazine 20 Mg/Ml Vial IV-PUSH 03/09/24 16:32 Q4H PRN Hypertension Piperacillin Sod/Tazobactam Sod 3.375 gm in 100 mls @ 200 mls/hr 03/10/23 20:30 03/13/23 14:39 Zosyn IV 200 mls/hr Q6H ROGELIO Administration Magnesium Sulfate 2 gm in 50 mls @ 25 mls/hr 03/10/23 16:33 Magnesium Sulf 2gm-*Swfi* IV 03/09/24 16:32 DAILY PRN Magnesium Level < 1.5 Vancomycin HCl 1 gm in 250 mls @ 250 mls/hr 03/10/23 23:00 03/12/23 22:14 Vancomycin IV 250 mls/hr Q8H ROGELIO Administration Ibuprofen 800 mg 03/10/23 22:00 03/13/23 14:39 Ibuprofen 800 Mg Tablet PO 03/09/24 21:59 800 mg TID ROGELIO Administration Insulin Aspart 0 units 03/10/23 17:00 03/13/23 12:56 Insulin Aspart 300 Units/3 Ml Insuln.Pen SUBCUT 03/09/24 16:59 3 units TID.WM.HS ROGELIO Administration Protocol Insulin Glargine 10 units 03/12/23 21:00 03/12/23 21:24 Insulin Glargine 300 Units/3 Ml Insuln.Pen SUBCUT 03/11/24 20:59 10 units QPM ROGELIO Administration Lamotrigine 150 mg 03/10/23 21:00 03/13/23 09:16 Lamotrigine 100 Mg Tablet PO 03/09/24 20:59 150 mg BID ROGELIO Administration Morphine Sulfate 2 mg 03/10/23 16:33 03/13/23 09:12 Morphine Sulfate 2 Mg/Ml Vial IV-PUSH 2 mg Q4H PRN Administration Pain Scale 8 - 10 Pantoprazole Sodium 40 mg 03/11/23 09:00 03/13/23 09:16 Pantoprazole 40 Mg Tablet. PO 03/10/24 08:59 40 mg BID ROGELIO Administration Potassium Chloride 20 meq 03/10/23 16:33 Potassium Chloride Er 20 Meq Tab.Er.Prt PO 03/09/24 16:32 DAILY PRN Hypokalemia Risperidone 1 mg 03/10/23 21:00 03/13/23 09:16 Risperidone 1 Mg Tablet PO 03/09/24 20:59 1 mg BID ROGELIO Administration Sodium Chloride 0 ml 03/10/23 12:17 03/13/23 09:12 Sodium Chloride 0.9 % 10 Ml Syringe IV-PUSH 03/09/24 12:16 10 ml PRN PRN Administration Flush Trazodone HCl 50 mg 03/10/23 16:37 03/12/23 21:23 Trazodone 50 Mg Tablet PO 03/09/24 16:36 50 mg QHS PRN Administration Insomnia Vancomycin HCl 1 each 03/10/23 16:31 Vancomycin - Pharmacy Dosing 1 Each Miscell IV PRN PRN ZZ.Pharmacy Consult Protocol A&P - Hospitalist Assessment/Plan (1) Abscess of left lung with pneumonia: (2) Pneumonia: (3) Diabetes mellitus, type 2: (4) COPD (chronic obstructive pulmonary disease): (5) Lung mass: (6) Tobacco abuse: Plan Assessment: Left upper lobe abnormality. Possibility of very large abscess. Possibility of necrotizing ammonia. Possibility of malignancy. Status post bronchoscopy and bronchoalveolar lavage on 03/11/2023. History of COPD. History of intermittent supplemental oxygen use at home before this. Diabetes mellitus type 2. Pleuritic left sided chest pain which would be expected given the size and severity of this large abnormality. BMI 32.6. Preliminary growth of Janine tropicalis and albicans on the bronchial velar washings. Per pulmonology we will wait for the final pathology before deciding whether to target with antifungal agents or not. Plan: Appreciate pulmonology input. Continue antibiotics with vancomycin and Zosyn. Continue to check daily labs. White blood count has improved nicely. Check hemoglobin A1c to see what her baseline is. Diabetes control has been fair here in the hospital. Continued scheduled NSAIDs for pain control. Tylenol available as needed mild pain and oral Buhl and IV morphine as needed more severe pain. Okay to remove telemetry monitoring at this time. DVT prophylaxis with heparin 5000 units subcutaneously twice a day. Documented By: Krunal Kelly DO [id number] Signed By: <Electronically signed by Krunal Kelly, DO> 03/13/23 1514 [facility] Work Phone: 1(797) 960-437007-29-2023 Progress note Author Víctor Stallings [facility] March 13, 2023 3:00pm Note Date/Time March 13, 2023 10:3 9am [facility] [address] [place] [address] Pulmonology Progress Note Signed Patient: Christiane Perez MR#: [id number] : 1975 Acct:[id number] Age/Sex: 48 / F Adm Date: 3 Loc: Room: [address] [place] [address] Type: ADM IN Attending Dr: Krunal Kelly DO Copies to: ~ Date of Service: 03/13/2023 Subjective Subjective Narrative: Patient feels that her mental status is somewhat improved from yesterday to today. She has no new respiratory complaints. Exam Physical Exam Vital Signs: Temp Pulse Resp BP Pulse Ox O2 Del Method O2 Flow Rate 98.1 F 74 20 165/92 H 95 Room Air 2 03/13/23 08:00 03/13/23 08:54 03/13/23 08:54 03/13/23 08:00 03/13/23 08:00 03/13/23 08:54 03/13/23 00:00 Const General: cooperative Orientation: alert and awake HEENT Head: normal to inspection Ears: hearing grossly normal bilaterally and external ears normal Nose: external nose normal Face and sinus: normal facial exam Eyes Sclera: sclerae normal Neck Neck: normal visual inspection Resp Effort & Inspection: normal respiratory effort Auscultation: clear to auscultation bilaterally, diminished lung sounds, no rales, no rhonchi and no wheezes Cardio Rate: regular rate Rhythm: regular rhythm Heart Sounds: S1 normal, S2 normal and no murmurs GI Inspection: normal to inspection Palpation: soft and nontender General: deferred Skin General: no rashes or lesions noted (Warm and dry) Extrem General: no pedal edema Objective Intake and Output I&O - Last 24 Hours: Intake & Output 03/12/23 03/13/23 03/13/23 23:59 07:59 15:59 Intake Total 1050 / 2220 200 / 300 100 / 300 Balance 1050 / 2220 200 / 300 100 / 300 Weight 94.3 kg Labs 03/13/23 06:32 03/13/23 06:32 Microbiology Micro: Microbiology 03/11/23 14:40 Bronchial Culture - Preliminary Bronchial Washings - Left Upper Lobe Janine tropicalis Yeast Like Organism#2 03/11/23 13:30 Aerobic Culture - Preliminary Sputum - Expectorated Janine tropicalis Yeast Like Organism#2 Gram Stain - Final 03/11/23 14:40 AFB Smear Concentration - Final Bronchial Washings - Left Upper Lobe Acid Fast Bacilli Smear - Final 03/11/23 14:40 Gram Stain - Final Bronchial Washings - Left Upper Lobe Fungal Smear - Final 03/10/23 12:53 Blood Culture - Preliminary Blood - Left Hand No Growth 2 Days 03/10/23 12:41 Blood Culture - Preliminary Blood - Left Antecubital No Growth 2 Days Imaging and Cardiology CT scan - head: Status: image reviewed by me Additional comments: Date of Service: 03/12/23 CT/CT head/brain wo con: confusion ? CT head/brain wo con? 03/12/2023 4:25 PM SIGNS AND SYMPTOMS: Confusion, shortness of breath, dizziness TECHNIQUE:Multi-detector CT axial slices of the brain were obtained without IV contrast.? CT was performed with one or more of the following dose reduction techniques: Automated exposure control, adjustment of the mA and/or kV accordingto patient size, or use of iterative reconstruction technique. COMPARISON: 03/31/2021 FINDINGS: There is no shift of the midline structures, acute intracranial bleeding, mass effects, or evidence of acute ischemia. The ventricular system isnormal in size. The brainstem and the cerebellum are unremarkable. The visualized intraorbital contents, the visualized paranasal sinuses, and the infratemporal soft tissues show no acute abnormality. The osseous structures in the skull base and the calvarium show no abnormality. CT/CT head/brain wo con IMPRESSION: ? Normal noncontrasted CT brain. Assessment/Plan Assessment/Plan (1) Lung mass: (2) COPD (chronic obstructive pulmonary disease): (3) Tobacco abuse: Plan Hospital day #3 for patient admitted for left upper lobe cavitary lesion with concern for lung abscess versus cavitary malignancy. Note finding of Janine tropicalis from sputum and from bronchial washings. Pathology from bronchoscopyremains pending. The patient does not appear sufficiently toxic to suggest Janine pneumonia and certainly with the cavitation noted the patient could havesome increased risk for Janine colonization in the cavity as a result. I will not necessary proceed with treatment for the Janine tropicalis with biopsies pending. If there is evidence of Janine on the pathology then would treat for invasive candidiasis. Note finding of normal head CT with normal ammonia level and decreased calcium level. Continue current therapy. Documented By: Víctor Stallings MD 3 [id number] Signed By: <Electronically signed by MD Víctor Stallings> 03/13/23 1500 [facility] Work Phone: [phone]) [phone] Progress note Author Víctor Stallings [facility] March 12, 2023 4:24pm Note Date/Time March 12, 2023 12:3 3pm [facility] [address] [place] [address] Pulmonology Progress Note Signed Patient: Christiane Perez MR#: [id number] : 1975 Acct:[id number] Age/Sex: 48 / F Adm Date: 3 Loc: Room: [address] [place] [address] Type: ADM IN Attending Dr: Eron Wood MD Copies to: ~ Date of Service: 03/12/2023 Subjective Subjective Narrative: Patient indicates that she is off. In particular, she is saying things which she knows does not make sense. However, she remains awake, alert, and oriented. She denies new respiratory complaints. Exam Physical Exam Vital Signs: Temp Pulse Resp BP Pulse Ox O2 Del Method O2 Flow Rate 98.1 F 78 20 153/92 H 95 Nasal Cannula 3 03/12/23 11:35 03/12/23 12:00 03/12/23 12:00 03/12/23 11:35 03/12/23 11:35 03/12/23 11:35 03/12/23 11:35 Const General: cooperative Orientation: alert and awake HEENT Head: normal to inspection Ears: hearing grossly normal bilaterally and external ears normal Nose: external nose normal Face and sinus: normal facial exam Eyes Sclera: sclerae normal Neck Neck: normal visual inspection Resp Effort & Inspection: normal respiratory effort Auscultation: clear to auscultation bilaterally, diminished lung sounds, no rales, no rhonchi and no wheezes Cardio Rate: regular rate Rhythm: regular rhythm Heart Sounds: S1 normal, S2 normal and no murmurs GI Inspection: normal to inspection Palpation: soft and nontender General: deferred Skin General: no rashes or lesions noted (Warm and dry) Extrem General: no pedal edema Objective Intake and Output I&O - Last 24 Hours: Intake & Output 03/11/23 03/12/23 03/12/23 23:59 07:59 15:59 Intake Total 1200 / 2650 300 / 300 Balance 1200 / 2650 300 / 300 Weight 94.6 kg Labs 03/12/23 05:30 03/12/23 05:30 Microbiology Micro: Microbiology 03/10/23 12:53 Blood Culture - Preliminary Blood - Left Hand No Growth 1 Day 03/10/23 12:41 Blood Culture - Preliminary Blood - Left Antecubital No Growth 1 Day Assessment/Plan Assessment/Plan (1) Lung mass: (2) COPD (chronic obstructive pulmonary disease): (3) Tobacco abuse: Plan Hospital day #2 for patient admitted for left upper lobe cavitary lesion with concern for lung abscess versus cavitary malignancy. Patient underwent bronchoscopy yesterday with pathology pending. Cultures remain negative to date. She remains on Zosyn for presumed pneumonia with lung abscess. Culture from bronchoscopy reveals Janine tropicalis and a second yeast. She is awake, alert, and oriented x 3. Prior liver function tests are normal and WBCs have decreased to normal. Left shift is decreasing. We will check a calcium and ammonia level. Given concerns for MER[facility] opacity representing possible malignancy,will order head CT, NH3, and calcium level. Continue antibiotics and trend WBCs. Documented By: Víctor Stallings MD 3 [id number] Signed By: <Electronically signed by MD Víctor Stallings> 03/12/23 1624 [facility] Work Phone: 1(646) 297-711107-28-2023 Progress note Author Valeriano Horta [facility] March 12, 2023 9:08am Note Date/Time March 12, 2023 9:08 am [facility] [address] [place], [place] [id number] Cardiothoracic Progress Note Signed Patient: Christiane Perez MR#: [id number] : 1975 Acct:[id number] Age/Sex: 48 / F Adm Date: 3 Loc: 3T Room: [address] [place] [address] Type: ADM IN Attending Dr: Eron Wood MD Copies to: ~ Date of Service: 03/12/2023 Subjective Subjective Narrative: Ms. Perez is a 48 year old female with persistent SOB. CT read as lung abscess with elevated WBC. Pt agreed with admission. Chart and CT reviewed. Exam Physical Exam Vital Signs: Temp Pulse Resp BP Pulse Ox O2 Del Method O2 Flow Rate 98.1 F 74 18 139/93 98 Nasal Cannula 3 03/12/23 08:14 03/12/23 08:14 03/12/23 08:14 03/12/23 08:14 03/12/23 08:14 03/12/23 08:28 03/12/23 08:28 Objective Vital Signs Vital Signs: Temp 98.1 F 03/12/23 08:14 Pulse 74 03/12/23 08:14 Resp 18 03/12/23 08:14 BP 139/93 03/12/23 08:14 Pulse Ox 98 03/12/23 08:14 O2 Del Method Nasal Cannula 03/12/23 08:28 O2 Flow Rate 3 03/12/23 08:28 Lab Results 03/12/23 05:30 03/12/23 05:30 Labs: Laboratory Results - last 24 hr 03/11/23 03/11/23 03/11/23 11:19 15:00 15:21 Corrected WBC Uncorrected WBC Count RBC Hgb Hct MCV MCH MCHC RDW Plt Count MPV Neut % (Auto) Lymph % (Auto) Edmunds % (Auto) Eos % (Auto) Baso % (Auto) Nucleat RBC Rel Count Neut # (Auto) Lymph # (Auto) Edmunds # (Auto) Eos # (Auto) Baso # (Auto) PHA Creatinine Clear Sodium Potassium Chloride Carbon Dioxide Anion Gap BUN Creatinine Est GFR (CKD-EPI) Glucose POC Glucose 249 58 L* 134 POC Glucose Comment Glu2: cleaned meter Calcium Vancomycin Peak Vancomycin Trough 03/11/23 03/11/23 03/11/23 16:13 17:18 20:51 Corrected WBC Uncorrected WBC Count RBC Hgb Hct MCV MCH MCHC RDW Plt Count MPV Neut % (Auto) Lymph % (Auto) Edmunds % (Auto) Eos % (Auto) Baso % (Auto) Nucleat RBC Rel Count Neut # (Auto) Lymph # (Auto) Edmunds # (Auto) Eos # (Auto) Baso # (Auto) PHA Creatinine Clear Sodium Potassium Chloride Carbon Dioxide Anion Gap BUN Creatinine Est GFR (CKD-EPI) Glucose POC Glucose 80 121 POC Glucose Comment Glu2: cleaned meter Glu2: cleaned meter Calcium Vancomycin Peak 12.5 L Vancomycin Trough 03/11/23 03/12/23 03/12/23 22:11 05:30 05:30 Corrected WBC 9.8 Uncorrected WBC Count 9.8 RBC 3.64 Hgb 11.8 Hct 35.6 MCV 97.7 MCH 32.4 MCHC 33.1 RDW 15.8 H Plt Count 342 MPV 6.8 Neut % (Auto) 73.7 Lymph % (Auto) 13.5 Edmunds % (Auto) 9.2 Eos % (Auto) 2.9 Baso % (Auto) 0.7 Nucleat RBC Rel Count 0.1 Neut # (Auto) 7.2 Lymph # (Auto) 1.3 Edmunds # (Auto) 0.9 H Eos # (Auto) 0.3 Baso # (Auto) 0.1 PHA Creatinine Clear 111.29 Sodium 138 Potassium 3.8 Chloride 109 H Carbon Dioxide 23.3 Anion Gap 9.5 BUN 8 Creatinine 0.73 Est GFR (CKD-EPI) > 60.0 Glucose 62 L POC Glucose POC Glucose Comment Calcium 8.2 L Vancomycin Peak Vancomycin Trough 17.8 03/12/23 06:24 Corrected WBC Uncorrected WBC Count RBC Hgb Hct MCV MCH MCHC RDW Plt Count MPV Neut % (Auto) Lymph % (Auto) Edmunds % (Auto) Eos % (Auto) Baso % (Auto) Nucleat RBC Rel Count Neut # (Auto) Lymph # (Auto) Edmunds # (Auto) Eos # (Auto) Baso # (Auto) PHA Creatinine Clear Sodium Potassium Chloride Carbon Dioxide Anion Gap BUN Creatinine Est GFR (CKD-EPI) Glucose POC Glucose 75 POC Glucose Comment Glu2: cleaned meter Calcium Vancomycin Peak Vancomycin Trough Microbiology Results Microbiology: 03/10/23 12:53 Blood - Left Hand Blood Culture - Preliminary No Growth 1 Day 03/10/23 12:41 Blood - Left Antecubital Blood Culture - Preliminary No Growth 1 Day A&P - Cardiothoracic Surgery (1) Pneumonia: Code(s): J18.9 - Pneumonia, unspecified organism Status: Acute Plan CXR ordered. Bronch note read. If improvement, then discharge on antibiotics when primary team clears. Will follow up in clinic with CT in 4 weeks Documented By: Valeriano Horta MD 03/12/23905 Signed By: <Electronically signed by Valeriano Horta MD> 03/12/23 0908 [facility] Work Phone: [phone] Progress note Author Eron Wood [facility] March 12, 2023 9:03am Note Date/Time March 12, 2023 9:03 am [facility] [address] [place] [address] Hospitalist Progress Note Signed Patient: Christiane Perez MR#: [id number] : 1975 Acct:[id number] Age/Sex: 48 / F Adm Date: 3 Loc: Room: [address] [place] [address] Type: ADM IN Attending Dr: Eron Wood MD Copies to: ~ Date of Service: 03/12/2023 Subjective Subjective Narrative: Patient is 48 years old female presented to the emergency department with left- sided chest pain radiating to left back and left side of her abdomen. Patient was seen at outside emergency department few days ago and was diagnosed with left upper lobe lung abscess and was recommended to be admitted however she decided to go home with oral antibiotic. She was started on Levaquin and clindamycin that she has been taking. Patient then followed up with her PCP yesterday and was told to come to the hospital and she presented today. Patientdenies any fever or chills. She is 2 pack/day smoker. She is on nocturnal oxygen at home. She has a history of severe COPD, diabetes and she is also on chronic pain medications. Laboratory work-up showed leukocytosis with W16.6. CT chest revealed left upperlobe suprahilar consolidation with region of cavitation consistent with lung abscess. There is also adjacent consolidation for additional infiltrate. Follow-up imaging recommended. There is also indeterminate anterior hepatic lesion. Low-density 2.3 cm right adrenal nodule noted. Patient was initially given dose of clindamycin and Levaquin in the ED. ED havecontacted thoracic surgery Dr. Quinn who is agreeable to see patient in consultation. On follow-up today patient has no new complaint. Left-sided chest pain is improved. Still have greenish mucus productive cough. WBC down to 11.7 from 16. 7/28 Patient continued to have some cough congestion. She is on room air. Afebrile. Leukocytosis has resolved. Patient underwent bronchoscopy yesterday for BAL and biopsy. Pulmonary concern of endobronchial malignancy causing postobstructive pneumonia Exam Physical Exam Vital Signs: Temp Pulse Resp BP Pulse Ox O2 Del Method O2 Flow Rate 98.1 F 74 18 139/93 98 Nasal Cannula 3 03/12/23 08:14 03/12/23 08:14 03/12/23 08:14 03/12/23 08:14 03/12/23 08:14 03/12/23 08:28 03/12/23 08:28 Const General: comfortable and no acute distress Nutritional Appearance: obese HEENT Head: normal to inspection Eyes Pupils: PERRL EOM: EOM intact bilaterally Neck Neck: full ROM Resp Auscultation: rhonchi and other (Overall diminished breath sounds. Rales in left upper) Cardio Rate: regular rate Rhythm: regular rhythm Heart Sounds: S1 normal and S2 normal GI Palpation: soft Percussion: normal to percussion General: No CVA tenderness Musc Cervical Spine: normal cervical lordosis Skin General: no rashes or lesions noted Neuro General: patient alert, patient awake and patient oriented x3 Extrem General: full ROM Psych Appearance: grossly normal Objective Lab Results 03/12/23 05:30 03/12/23 05:30 Microbiology Results Microbiology 03/10/23 12:53 Blood - Left Hand Blood Culture - Preliminary No Growth 1 Day 03/10/23 12:41 Blood - Left Antecubital Blood Culture - Preliminary No Growth 1 Day Meds Allergies and Active Meds Allergies sumatriptan [From Imitrex] Allergy (Verified 03/10/23 12:17) Hives Active Meds: Active Medications Generic Name Dose Route Start Last Admin Trade Name Freq PRN Reason Stop Dose Admin Hydrocodone Bitart/Acetaminophen 1 tab 03/10/23 16:33 03/12/23 06:15 Hydrocodone/Acetaminophen 5-325 Mg Tablet PO 1 tab Q4H PRN Administration Pain Scale 4 - 7 Albuterol/Ipratropium 3 ml 03/10/23 20:00 03/12/23 08:10 Ipratropium/Albuterol 0.5-3 Mg 3 Ml Ampul.Neb INHALATION 03/09/24 19:59 3 ml QID.RESP ROGELIO Administration Atorvastatin Calcium 40 mg 03/11/23 09:00 03/12/23 08:17 Atorvastatin 40 Mg Tablet PO 03/10/24 08:59 40 mg DAILY ROGELIO Administration Canagliflozin 300 mg 03/11/23 09:00 03/12/23 08:17 Canagliflozin 300 Mg Tablet PO 03/10/24 08:59 300 mg DAILY ROGELIO Administration Dextrose 0 gm 03/10/23 16:39 03/11/23 15:05 Dextrose 50% In Water 25 Gm/50 Ml Syringe IV-PUSH 03/09/24 16:38 25 gm PRN PRN Administration Hypoglycemia Escitalopram Oxalate 20 mg 03/11/23 09:00 03/12/23 08:17 Escitalopram 20 Mg Tablet PO 03/10/24 08:59 20 mg DAILY ROGELIO Administration Famotidine 20 mg 03/10/23 21:00 03/12/23 08:17 Famotidine 20 Mg Tablet PO 03/09/24 20:59 20 mg BID ROGELIO Administration Fluticasone Propionate 1 puff 03/11/23 09:00 03/12/23 08:11 Fluticasone Propionate 110 120 Puff/12 Gm Inhaler INHALATION 03/10/24 08:59 1 puff BID ROGELIO Administration Gabapentin 800 mg 03/10/23 22:00 03/12/23 08:17 Gabapentin 800 Mg Tablet PO 03/09/24 21:59 800 mg TID ROGELIO Administration Glucose 0 gm 03/10/23 16:39 Dextrose 40% Gel 15 Gm Tube PO 03/09/24 16:38 PRN PRN Hypoglycemia Heparin Sodium (Porcine) 5,000 unit 03/10/23 21:00 03/12/23 08:17 Heparin 5,000 Unit/Ml Vial SUBCUT 03/09/24 20:59 5,000 unit Q12HR ROGELIO Administration Hydralazine HCl 10 mg 03/10/23 16:33 Hydralazine 20 Mg/Ml Vial IV-PUSH 03/09/24 16:32 Q4H PRN Hypertension Piperacillin Sod/Tazobactam Sod 3.375 gm in 100 mls @ 200 mls/hr 03/10/23 20:30 03/12/23 08:16 Zosyn IV 200 mls/hr Q6H ROGELIO Administration Magnesium Sulfate 2 gm in 50 mls @ 25 mls/hr 03/10/23 16:33 Magnesium Sulf 2gm-*Swfi* IV 03/09/24 16:32 DAILY PRN Magnesium Level < 1.5 Vancomycin HCl 1 gm in 250 mls @ 250 mls/hr 03/10/23 23:00 03/12/23 06:09 Vancomycin IV 250 mls/hr Q8H ROGELIO Administration Sodium Chloride 1,000 mls @ 20 mls/hr 03/11/23 14:30 03/11/23 14:25 0.9% Sodium Chloride 1,000 Ml IV 03/10/24 14:29 20 mls/hr .Q24H ROGELIO Administration Ibuprofen 800 mg 03/10/23 22:00 03/12/23 08:17 Ibuprofen 800 Mg Tablet PO 03/09/24 21:59 800 mg TID ROGELIO Administration Insulin Aspart 0 units 03/10/23 17:00 03/12/23 08:16 Insulin Aspart 300 Units/3 Ml Insuln.Pen SUBCUT 03/09/24 16:59 Not Given TID.WM[facility] Protocol Insulin Glargine 10 units 03/12/23 21:00 Insulin Glargine 300 Units/3 Ml Insuln.Pen SUBCUT 03/11/24 20:59 QPM ROGELIO Lamotrigine 150 mg 03/10/23 21:00 03/12/23 08:17 Lamotrigine 100 Mg Tablet PO 03/09/24 20:59 150 mg BID ROGELIO Administration Morphine Sulfate 2 mg 03/10/23 16:33 Morphine Sulfate 2 Mg/Ml Vial IV-PUSH Q4H PRN Pain Scale 8 - 10 Pantoprazole Sodium 40 mg 03/11/23 09:00 03/12/23 08:17 Pantoprazole 40 Mg Tablet. PO 03/10/24 08:59 40 mg BID ROGELIO Administration Potassium Chloride 20 meq 03/10/23 16:33 Potassium Chloride Er 20 Meq Tab.Er.Prt PO 03/09/24 16:32 DAILY PRN Hypokalemia Risperidone 1 mg 03/10/23 21:00 03/12/23 08:17 Risperidone 1 Mg Tablet PO 03/09/24 20:59 1 mg BID ROGELIO Administration Sodium Chloride 0 ml 03/10/23 12:17 03/10/23 16:59 Sodium Chloride 0.9 % 10 Ml Syringe IV-PUSH 03/09/24 12:16 10 ml PRN PRN Administration Flush Trazodone HCl 50 mg 03/10/23 16:37 03/10/23 21:44 Trazodone 50 Mg Tablet PO 03/09/24 16:36 50 mg QHS PRN Administration Insomnia Vancomycin HCl 1 each 03/10/23 16:31 Vancomycin - Pharmacy Dosing 1 Each Miscell IV PRN PRN ZZ.Pharmacy Consult Protocol A&P - Hospitalist Assessment/Plan (1) Abscess of left lung with pneumonia: Plan: Patient is suspected of lung cancer with postobstructive necrotizing pneumonia. Lung abscess also in differential. She is status post bronchoscopy and biopsy. Results are pending. Patient can hopefully go home after biopsy and BAL cultureresults. Patient is responding to IV antibiotic. Leukocytosis has resolved. Continue vancomycin and Zosyn. Appreciate pulmonary and thoracic surgery. Continue morphine, Buhl as needed for pain. (2) Pneumonia: Plan: Antibiotic as above (3) Diabetes mellitus, type 2: Plan: Blood sugar was low this morning for Decrease Lantus to 10 units at bedtime and continue sliding scale (4) COPD (chronic obstructive pulmonary disease): Plan: Continue bronchodilators and Breztri (5) Lung mass: Plan: Patient status post bronchoscopy BAL and biopsy. will follow results. (6) Tobacco abuse: Plan Chronic medical problems include diabetic neuropathy, anxiety, hyperlipidemia, obesity, tobacco abuse, COPD, DVT prophylaxis: Heparin GI prophylaxis: Pepcid Documented By: Eron Wood MD 03/12/23 0855 Signed By: <Electronically signed by Eron Wood MD> 03/12/23 0903 [facility] Work Phone: [phone]) 416-569007-27-2023 [facility] Consult note Author Errol Nicole [facility] March 11, 2023 12:00pm Note Date/Time March 11, 2023 12:0 0pm [facility] [address] [place] [address] Pulmonology Consult Note Signed Patient: Christiane Perez MR#: [id number] : 1975 Acct:[id number] Age/Sex: 48 / F Adm Date: 3 Loc: Room: [address] [place] [address] Type: ADM IN Attending Dr: Eron Wood MD Copies to: MD Eron Pascal MD Shaikh Fawwad, MD~ HPI Date/Time of Consultation: Date of Service: 03/11/2023 Time of Service: 11:56 Consulting Provider: Errol Nicole Requesting Provider: Eron Wood History of Present Illness History of present illness: Ms. Perez is a 48 year old female with significant active smoking history who presented to the hospital with progressive left-sided chest pain, had a chest x- ray, then a CT, done at [place] and was told that she had an abscess in the left lung . She refused to be admitted, went home on Levaquin and clindamycin, followed up with her primary care physician who advised her to come back and be admitted here at [facility]. Patient has a large dense consolidated mass in theleft upper lobe with central cavitation, she had persistent cough but not able to expectorate any, admits to significant weight loss of nearly 10 pounds in thelast month or 2 . She had mild leukocytosis on admission kidney functions and electrolytes were within normal limits liver functions were adequate as well Review of Systems Review of Systems Review of systems: As mentioned above otherwise unremarkable PMFSH Vaccinated for COVID-19?: Yes Medical History (Updated 03/11/23 @ 11:59 by Errol Nicole MD) Anxiety COPD (chronic obstructive pulmonary disease) Depression Diabetes mellitus, type 2 GERD (gastroesophageal reflux disease) Hyperlipidemia On home oxygen therapy pt states should be but does not use Surgical History History of bilateral breast reduction surgery History of cholecystectomy History of hysterectomy History of tonsillectomy Family History Father Diabetes mellitus, type 2 Mother Breast cancer Social History Smoking Status: Current every day smoker Tobacco Type: cigarettes Substance Use Type: None Meds Medications and Allergies Allergies sumatriptan [From Imitrex] Allergy (Verified 03/10/23 12:17) Hives Home Medications albuterol sulfate 90 mcg/actuation aerosol inhaler (Ventolin HFA) 1 - 2 inh inhalation Q4-6H 10/31/20 [History Confirmed 03/10/23] ibuprofen 800 mg tablet 800 mg PO TID 10/31/20 [History Confirmed 03/10/23] insulin aspart U-100 100 unit/mL (3 mL) subcutaneous pen (Novolog FlexPen U-100 Insulin aspart) 1 unit subcut ACHS 10/31/20 [History Confirmed 03/10/23] lamotrigine 150 mg tablet (Lamictal) 150 mg PO BID 10/31/20 [History Confirmed 03/10/23] omeprazole 40 mg capsule,delayed release 40 mg PO QAM 10/31/20 [History Confirmed 03/10/23] risperidone 3 mg tablet (Risperdal) 1 mg PO BID 10/31/20 [History Confirmed 03/10/23] tizanidine 4 mg tablet 8 mg PO Q8H 10/31/20 [History Confirmed 03/10/23] trazodone 50 mg tablet 50 mg PO QHS PRN Insomnia 10/31/20 [History Confirmed 03/10/23] atorvastatin 40 mg tablet 40 mg PO DAILY 03/10/23 [History Confirmed 03/10/23] budesonide 160 mcg-glycopyr 9 mcg-formot 4.8 mcg/actuation HFA inhaler (Breztri Aerosphere) 1 puff inhalation DAILY 03/10/23 [History Confirmed 03/10/23] dapagliflozin propanediol 10 mg tablet (Farxiga) 10 mg PO DAILY 03/10/23 [History Confirmed 03/10/23] escitalopram oxalate 20 mg tablet 20 mg PO DAILY 03/10/23 [History Confirmed 03/10/23] gabapentin 800 mg tablet 800 mg PO TID 03/10/23 [History Confirmed 03/10/23] insulin glargine 100 unit/mL (3 mL) subcutaneous pen (Basaglar KwikPen U-100 Insulin) 20 unit subcut QPM 03/10/23 [History Confirmed 03/10/23] levofloxacin 750 mg tablet mg 03/10/23 [History] sitagliptin phos 100 mg-metformin ER 1,000 mg tablet,extend rel 24h mp (Janumet XR) 1 tab PO QHS 03/10/23 [History Confirmed 03/10/23] Exam Physical Exam Vital Signs: Temp Pulse Resp BP Pulse Ox O2 Del Method O2 Flow Rate 97.8 F 73 20 100/62 93 L Room Air 2 03/11/23 11:18 03/11/23 11:18 03/11/23 11:18 03/11/23 11:18 03/11/23 11:18 03/11/23 11:18 03/11/23 08:00 Narrative: General: Patient is alert awake responds appropriately in no distress Eyes: Pupils equal round reactive to light HEENT: Normocephalic, atraumatic, oral mucosa moist Neck: Supple no lymphadenopathy or thyromegaly Cardiovascular: S1, S2, normal sounds, no murmurs or gallops noted, regular rhythm Lungs: Diminished breath sounds bilaterally Extremities: No significant peripheral edema, peripheral pulses adequate Neurologic: Alert, awake, orientedx3, no focal weakness or speech abnormality Results Intake and Output I&O - Last 24 Hours: Intake & Output 03/10/23 03/11/23 03/11/23 23:59 07:59 15:59 Intake Total 1150 / 1250 400 / 400 Balance 1150 / 1250 400 / 400 Weight 94 kg 93.8 kg Labs 03/11/23 06:02 03/11/23 06:02 Microbiology Micro: 03/10/23 12:53 Blood Culture - Pending Blood - Left Hand 03/10/23 12:41 Blood Culture - Pending Blood - Left Antecubital Assessment/Plan (1) Lung mass: (2) COPD (chronic obstructive pulmonary disease): (3) Tobacco abuse: Plan * Patient's clinical presentation, along with CT findings, and recent weight loss, are highly suspicious for malignancy not just a pulmonary abscess. This could be a postobstructive necrotizing pneumonia or large mass with central necrosis, which can occur with squamous cell carcinoma * Discussed my concerns with patient, and recommended proceeding with bronchoscopy which I will do later today, I kept her n.p.o. after I saw her this morning. Documented By: Errol Nicole MD 03/11/23 1156 Signed By: <Electronically signed by Errol Nicole MD> 03/11/23 1200 [facility] Work Phone: 1(118) 850-529207-27-2023 Progress note Author Eron Wood [facility] March 11, 2023 10:50am Note Date/Time March 11, 2023 10:4 9am [facility] [address] [place] [address] Hospitalist Progress Note Signed Patient: Christiane Perez MR#: [id number] : 1975 Acct:[id number] Age/Sex: 48 / F Adm Date: 3 Loc: Room: [address] [place] [address] Type: ADM IN Attending Dr: Eron Wood MD Copies to: ~ Date of Service: 03/11/2023 Subjective Subjective Narrative: Patient is 48 years old female presented to the emergency department with left- sided chest pain radiating to left back and left side of her abdomen. Patient was seen at outside emergency department few days ago and was diagnosed with left upper lobe lung abscess and was recommended to be admitted however she decided to go home with oral antibiotic. She was started on Levaquin and clindamycin that she has been taking. Patient then followed up with her PCP yesterday and was told to come to the hospital and she presented today. Patientdenies any fever or chills. She is 2 pack/day smoker. She is on nocturnal oxygen at home. She has a history of severe COPD, diabetes and she is also on chronic pain medications. Laboratory work-up showed leukocytosis with W16.6. CT chest revealed left upperlobe suprahilar consolidation with region of cavitation consistent with lung abscess. There is also adjacent consolidation for additional infiltrate. Follow-up imaging recommended. There is also indeterminate anterior hepatic lesion. Low-density 2.3 cm right adrenal nodule noted. Patient was initially given dose of clindamycin and Levaquin in the ED. ED havecontacted thoracic surgery Dr. Quinn who is agreeable to see patient in consultation. On follow-up today patient has no new complaint. Left-sided chest pain is improved. Still have greenish mucus productive cough. WBC down to 11.7 from 16. Exam Physical Exam Vital Signs: Temp Pulse Resp BP Pulse Ox O2 Del Method O2 Flow Rate 97.6 F 72 20 113/57 L 97 Nasal Cannula 2 03/11/23 08:00 03/11/23 08:42 03/11/23 08:42 03/11/23 08:00 03/11/23 08:00 03/11/23 08:00 03/11/23 08:00 Const General: comfortable and no acute distress Nutritional Appearance: obese HEENT Head: normal to inspection Eyes Pupils: PERRL EOM: EOM intact bilaterally Neck Neck: full ROM Resp Auscultation: rhonchi and other (Overall diminished breath sounds. Rales in left upper) Cardio Rate: regular rate Rhythm: regular rhythm Heart Sounds: S1 normal and S2 normal GI Palpation: soft Percussion: normal to percussion General: No CVA tenderness Musc Cervical Spine: normal cervical lordosis Skin General: no rashes or lesions noted Neuro General: patient alert, patient awake and patient oriented x3 Extrem General: full ROM Psych Appearance: grossly normal Objective Lab Results 03/11/23 06:02 03/11/23 06:02 Meds Allergies and Active Meds Allergies sumatriptan [From Imitrex] Allergy (Verified 03/10/23 12:17) Hives Active Meds: Active Medications Generic Name Dose Route Start Last Admin Trade Name Freq PRN Reason Stop Dose Admin Hydrocodone Bitart/Acetaminophen 1 tab 03/10/23 16:33 03/11/23 02:27 Hydrocodone/Acetaminophen 5-325 Mg Tablet PO 1 tab Q4H PRN Administration Pain Scale 4 - 7 Albuterol/Ipratropium 3 ml 03/10/23 20:00 03/11/23 08:33 Ipratropium/Albuterol 0.5-3 Mg 3 Ml Ampul.Neb INHALATION 03/09/24 19:59 3 ml QID.RESP ROGELIO Administration Atorvastatin Calcium 40 mg 03/11/23 09:00 03/11/23 08:22 Atorvastatin 40 Mg Tablet PO 03/10/24 08:59 40 mg DAILY ROGELIO Administration Canagliflozin 300 mg 03/11/23 09:00 03/11/23 08:22 Canagliflozin 300 Mg Tablet PO 03/10/24 08:59 300 mg DAILY ROGELIO Administration Dextrose 0 gm 03/10/23 16:39 Dextrose 50% In Water 25 Gm/50 Ml Syringe IV-PUSH 03/09/24 16:38 PRN PRN Hypoglycemia Escitalopram Oxalate 20 mg 03/11/23 09:00 03/11/23 08:22 Escitalopram 20 Mg Tablet PO 03/10/24 08:59 20 mg DAILY ROGELIO Administration Famotidine 20 mg 03/10/23 21:00 03/11/23 08:23 Famotidine 20 Mg Tablet PO 03/09/24 20:59 20 mg BID ROGELIO Administration Fluticasone Propionate 1 puff 03/11/23 09:00 03/11/23 08:33 Fluticasone Propionate 110 120 Puff/12 Gm Inhaler INHALATION 03/10/24 08:59 1 puff BID ROGELIO Administration Gabapentin 800 mg 03/10/23 22:00 03/11/23 08:23 Gabapentin 800 Mg Tablet PO 03/09/24 21:59 800 mg TID ROGELIO Administration Glucose 0 gm 03/10/23 16:39 Dextrose 40% Gel 15 Gm Tube PO 03/09/24 16:38 PRN PRN Hypoglycemia Heparin Sodium (Porcine) 5,000 unit 03/10/23 21:00 03/11/23 08:24 Heparin 5,000 Unit/Ml Vial SUBCUT 03/09/24 20:59 5,000 unit Q12HR ROGELIO Administration Hydralazine HCl 10 mg 03/10/23 16:33 Hydralazine 20 Mg/Ml Vial IV-PUSH 03/09/24 16:32 Q4H PRN Hypertension Piperacillin Sod/Tazobactam Sod 3.375 gm in 100 mls @ 200 mls/hr 03/10/23 20:30 03/11/23 08:23 Zosyn IV 200 mls/hr Q6H ROGELIO Administration Sodium Chloride 1,000 mls @ 75 mls/hr 03/10/23 16:45 03/10/23 18:53 0.9% Sodium Chloride 1,000 Ml IV 03/09/24 16:44 75 mls/hr .[id number] ROGELIO Administration Magnesium Sulfate 2 gm in 50 mls @ 25 mls/hr 03/10/23 16:33 Magnesium Sulf 2gm-*Swfi* IV 03/09/24 16:32 DAILY PRN Magnesium Level < 1.5 Vancomycin HCl 1 gm in 250 mls @ 250 mls/hr 03/10/23 23:00 03/11/23 06:05 Vancomycin IV 250 mls/hr Q8H ROGELIO Administration Ibuprofen 800 mg 03/10/23 22:00 03/11/23 08:21 Ibuprofen 800 Mg Tablet PO 03/09/24 21:59 800 mg TID ROGELIO Administration Insulin Aspart 0 units 03/10/23 17:00 03/11/23 08:23 Insulin Aspart 300 Units/3 Ml Insuln.Pen SUBCUT 03/09/24 16:59 Not Given TID.WM.HS ROGELIO Protocol Insulin Glargine 20 units 03/10/23 21:00 03/10/23 21:44 Insulin Glargine 300 Units/3 Ml Insuln.Pen SUBCUT 03/09/24 20:59 20 units QPM ROGELIO Administration Lamotrigine 150 mg 03/10/23 21:00 03/11/23 08:22 Lamotrigine 100 Mg Tablet PO 03/09/24 20:59 150 mg BID ROGELIO Administration Morphine Sulfate 2 mg 03/10/23 16:33 Morphine Sulfate 2 Mg/Ml Vial IV-PUSH Q4H PRN Pain Scale 8 - 10 Pantoprazole Sodium 40 mg 03/11/23 09:00 03/11/23 08:22 Pantoprazole 40 Mg Tablet. PO 03/10/24 08:59 40 mg BID ROGELIO Administration Potassium Chloride 20 meq 03/10/23 16:33 Potassium Chloride Er 20 Meq Tab.Er.Prt PO 03/09/24 16:32 DAILY PRN Hypokalemia Risperidone 1 mg 03/10/23 21:00 03/11/23 08:22 Risperidone 1 Mg Tablet PO 03/09/24 20:59 1 mg BID ROGELIO Administration Sodium Chloride 0 ml 03/10/23 12:17 03/10/23 16:59 Sodium Chloride 0.9 % 10 Ml Syringe IV-PUSH 03/09/24 12:16 10 ml PRN PRN Administration Flush Trazodone HCl 50 mg 03/10/23 16:37 03/10/23 21:44 Trazodone 50 Mg Tablet PO 03/09/24 16:36 50 mg QHS PRN Administration Insomnia Vancomycin HCl 1 each 03/10/23 16:31 Vancomycin - Pharmacy Dosing 1 Each Miscell IV PRN PRN ZZ.Pharmacy Consult Protocol A&P - Hospitalist Assessment/Plan (1) Abscess of left lung with pneumonia: Plan: Continue vancomycin and Zosyn. Appreciate pulmonary and thoracic surgery. Sendsputum culture. Continue morphine, Buhl as needed for pain. Stop IV fluid (2) Pneumonia: Plan: Antibiotic as above (3) Diabetes mellitus, type 2: Plan: Continue Lantus and start sliding scale (4) COPD (chronic obstructive pulmonary disease): Plan: Continue bronchodilators and Breztri Plan Chronic medical problems include diabetic neuropathy, anxiety, hyperlipidemia, obesity, tobacco abuse, COPD, DVT prophylaxis: Heparin GI prophylaxis: Pepcid Documented By: Eron Wood MD 03/11/23 1046 Signed By: <Electronically signed by Eron Wood MD> 03/11/23 1050 [facility] Work Phone: 1(235) 404-653307-26-2023 History and physical note Author Eron Wood [facility] March 10, 2023 4:48pm Note Date/Time March 10, 2023 4:49 pm [facility] [address] [place] [address] Hospitalist H&P Signed Patient: Christiane Perez MR#: [id number] : 1975 Acct:[id number] Age/Sex: 48 / F Adm Date: 3 Loc: Room: [address] [place] [address] Type: ADM IN Attending Dr: Eron Wood MD Copies to: MD Shaikh Anthony Cameron MD~ HPI DATE OF EXAMINATION: 03/10/23 CHIEF COMPLAINT: Left-sided chest pain HISTORY OF PRESENT ILLNESS: Patient is 48 years old female presented to the emergency department with left- sided chest pain radiating to left back and left side of her abdomen. Patient was seen at outside emergency department few days ago and was diagnosed with left upper lobe lung abscess and was recommended to be admitted however she decided to go home with oral antibiotic. She was started on Levaquin and clindamycin that she has been taking. Patient then followed up with her PCP yesterdayand was told to come to the hospital and she presented today. Patient denies any fever or chills. She is 2 pack/day smoker. She is on nocturnal oxygen at home. She has a history of severe COPD, diabetes and she is also on chronic pain medications. Laboratory work-up showed leukocytosis with W16.6. CT chest revealed left upperlobe suprahilar consolidation with region of cavitation consistent with lung abscess. There is also adjacent consolidation for additional infiltrate. Follow-up imaging recommended. There is also indeterminate anterior hepatic lesion. Low-density 2.3 cm right adrenal nodule noted. Patient was initially given dose of clindamycin and Levaquin in the ED. ED havecontacted thoracic surgery Dr. Quinn who is agreeable to see patient in consultation. Review of Systems Review of Systems All other systems reviewed & are negative unless noted below or in HPI [facility] Medical History (Updated 03/10/23 @ 16:46 by Eron Wood MD) Anxiety COPD (chronic obstructive pulmonary disease) Depression Diabetes mellitus, type 2 GERD (gastroesophageal reflux disease) Hyperlipidemia On home oxygen therapy pt states should be but does not use Surgical History History of bilateral breast reduction surgery History of cholecystectomy History of hysterectomy History of tonsillectomy Family History Father Diabetes mellitus, type 2 Mother Breast cancer Social History Smoking Status: Current every day smoker Tobacco Type: cigarettes Substance Use Type: None Meds Medications and Allergies Allergies sumatriptan [From Imitrex] Allergy (Verified 03/10/23 12:17) Hives Home Medications albuterol sulfate 90 mcg/actuation aerosol inhaler (Ventolin HFA) 1 - 2 inh inhalation Q4-6H 10/31/20 [History Confirmed 03/10/23] ibuprofen 800 mg tablet 800 mg PO TID 10/31/20 [History Confirmed 03/10/23] insulin aspart U-100 100 unit/mL (3 mL) subcutaneous pen (Novolog FlexPen U-100 Insulin aspart) 1 unit subcut ACHS 10/31/20 [History Confirmed 03/10/23] lamotrigine 150 mg tablet (Lamictal) 150 mg PO BID 10/31/20 [History Confirmed 03/10/23] omeprazole 40 mg capsule,delayed release 40 mg PO QAM 10/31/20 [History Confirmed 03/10/23] risperidone 3 mg tablet (Risperdal) 1 mg PO BID 10/31/20 [History Confirmed 03/10/23] tizanidine 4 mg tablet 8 mg PO Q8H 10/31/20 [History Confirmed 03/10/23] trazodone 50 mg tablet 50 mg PO QHS PRN Insomnia 10/31/20 [History Confirmed 03/10/23] atorvastatin 40 mg tablet 40 mg PO DAILY 03/10/23 [History Confirmed 03/10/23] budesonide 160 mcg-glycopyr 9 mcg-formot 4.8 mcg/actuation HFA inhaler (ROOOMERSztri Deitek Systemsphere) 1 puff inhalation DAILY 03/10/23 [History Confirmed 03/10/23] dapagliflozin propanediol 10 mg tablet (Farxiga) 10 mg PO DAILY 03/10/23 [History Confirmed 03/10/23] escitalopram oxalate 20 mg tablet 20 mg PO DAILY 03/10/23 [History Confirmed 03/10/23] gabapentin 300 mg capsule 300 mg PO QHS 03/10/23 [History Confirmed 03/10/23] insulin glargine 100 unit/mL (3 mL) subcutaneous pen (Basaglar KwikPen U-100 Insulin) 20 unit subcut QPM 03/10/23 [History Confirmed 03/10/23] sitagliptin phos 100 mg-metformin ER 1,000 mg tablet,extend rel 24h mp (Janumet XR) 1 tab PO QHS 03/10/23 [History Confirmed 03/10/23] Exam Physical Exam Vital Signs: Temp Pulse Resp BP Pulse Ox O2 Del Method O2 Flow Rate 97.9 F 71 16 97/63 L 95 Nasal Cannula 2 03/10/23 15:53 03/10/23 15:53 03/10/23 15:53 03/10/23 15:53 03/10/23 15:53 03/10/23 15:53 03/10/23 15:53 Const General: comfortable and no acute distress Nutritional Appearance: obese HEENT Head: normal to inspection Eyes Pupils: PERRL EOM: EOM intact bilaterally Neck Neck: full ROM Chest Other: Left-sided chest wall discomfort to palpation Resp Auscultation: rhonchi and other (Overall diminished breath sounds. Rales in left upper) Cardio Rate: regular rate Rhythm: regular rhythm Heart Sounds: S1 normal and S2 normal GI Palpation: soft Percussion: normal to percussion General: No CVA tenderness Musc Cervical Spine: normal cervical lordosis Skin General: no rashes or lesions noted Neuro General: patient alert, patient awake and patient oriented x3 Extrem General: full ROM Psych Appearance: grossly normal Results Lab Results Labs: Laboratory Last Values Corrected WBC 16.6 X10E3/uL (3.8-11.6) H 03/10/23 12:55 Uncorrected WBC Count 16.6 x10E3/uL (3.8-11.6) H 03/10/23 12:55 RBC 3.92 X10E6/uL (3.60-5.00) 03/10/23 12:55 Hgb 12.8 g/dL (11.8-15.4) 03/10/23 12:55 Hct 38.1 % (34.0-46.4) 03/10/23 12:55 MCV 97.2 fl (80-100) 03/10/23 12:55 MCH 32.6 pg (24.7-34.3) 03/10/23 12:55 MCHC 33.5 g/dL (32.0-35.0) 03/10/23 12:55 RDW 15.4 % (11.9-15.3) H 03/10/23 12:55 Plt Count 410 x10E3/uL (150-450) 03/10/23 12:55 MPV 7.2 fl (6.3-10.7) 03/10/23 12:55 Neut % (Auto) 85.8 % (.) 03/10/23 12:55 Lymph % (Auto) 5.7 % (.) 03/10/23 12:55 Edmunds % (Auto) 7.2 % (.) 03/10/23 12:55 Eos % (Auto) 1.1 % (.) 03/10/23 12:55 Baso % (Auto) 0.2 % (.) 03/10/23 12:55 Nucleat RBC Rel Count 0.1 /100 WBC (0-0.5) 03/10/23 12:55 Neut # (Auto) 14.2 x10E3/uL (1.8-7.7) H 03/10/23 12:55 Lymph # (Auto) 1.0 x10E3/uL (1.00-4.8) 03/10/23 12:55 Edmunds # (Auto) 1.2 x10E3/uL (0.0-0.8) H 03/10/23 12:55 Eos # (Auto) 0.2 x10E3/uL (0.0-0.45) 03/10/23 12:55 Baso # (Auto) 0.0 x10E3/uL (0.0-0.2) 03/10/23 12:55 Monocyte Dist Width 24.68 % (0.00-20.00) H 03/10/23 12:55 PT 14.3 Seconds (9.0-12.9) H 03/10/23 12:55 INR 1.2 03/10/23 12:55 APTT 40.2 Seconds (25.1-36.5) H 03/10/23 12:55 PHA Creatinine Clear 117.33 03/10/23 12:55 Sodium 135 mmol/L (136-145) L 03/10/23 12:55 Potassium 3.5 mmol/L (3.5-5.1) 03/10/23 12:55 Chloride 103 mmol/L (98-107) 03/10/23 12:55 Carbon Dioxide 24.2 mmol/L (21.0-31.0) 03/10/23 12:55 Anion Gap 11.3 mEq/L (6.0-15.0) 03/10/23 12:55 BUN 10 mg/dL (7-25) 03/10/23 12:55 Creatinine 0.70 mg/dL (0.60-1.20) 03/10/23 12:55 Est GFR (CKD-EPI) > 60.0 mL/Min 03/10/23 12:55 Glucose 69 mg/dL (70-100) L 03/10/23 12:55 Lactic Acid 1.2 mmol/L (0.5-2.2) 03/10/23 12:43 Calcium 8.9 mg/dL (8.6-10.3) 03/10/23 12:55 Total Bilirubin 0.7 mg/dl (0.3-1.0) 03/10/23 12:55 Direct Bilirubin 0.20 mg/dL (0.03-0.18) H 03/10/23 12:55 Indirect Bilirubin 0.5 mg/dL 03/10/23 12:55 AST 10 U/L (13-39) L 03/10/23 12:55 ALT 6 U/L (7-52) L 03/10/23 12:55 Alkaline Phosphatase 110 U/L (34-104) H 03/10/23 12:55 Total Creatine Kinase 23 U/L (30-223) L 03/10/23 12:55 Troponin I High Sens 12.8 pg/mL (0.0-15.0) 03/10/23 12:55 B-Natriuretic Peptide 46.0 pg/mL (5-100) 03/10/23 12:55 Total Protein 6.9 gm/dL (6.4-8.9) 03/10/23 12:55 Albumin 3.3 gm/dL (3.5-5.7) L 03/10/23 12:55 Globulin 3.6 gm/dL 03/10/23 12:55 Albumin/Globulin Ratio 0.9 03/10/23 12:55 Assessment & Plan Assessment/Plan (1) Abscess of left lung with pneumonia: Plan: Start vancomycin and Zosyn. Consult pulmonary and thoracic surgery for (2) Pneumonia: Plan: Antibiotic as above (3) Diabetes mellitus, type 2: Plan: Continue Lantus and start sliding scale (4) COPD (chronic obstructive pulmonary disease): Plan: Continue bronchodilators and Breztri Plan Chronic medical problems include diabetic neuropathy, anxiety, hyperlipidemia, obesity, tobacco abuse, COPD, DVT prophylaxis: Heparin GI prophylaxis: Pepcid IP vs OBS Justification Based on differential dx, clinical care plan, and risk of adverse events, if untreated, in my clinical judgement this patient requires an acute care setting as: INPATIENT because of an expectation of an over 2 midnight stay. Estimated length of stay (# of days): 3 Documented By: Eron Wood MD 03/10/23 1639 Signed By: <Electronically signed by Eron Wood MD> 03/10/23 1648 [facility] Work Phone: 1(670) 279-594807-26-2023 Consult note Author Valeriano Horta [facility] March 10, 2023 3:27pm Note Date/Time March 10, 2023 3:27 pm [facility] [address] [place] [address] Cardiothoracic Consult Note Signed Patient: Christiane Perez MR#: [id number] : 1975 Acct:[id number] Age/Sex: 48 / F Adm Date: 3 Loc: ER Room: Type: [facility] ER Attending Dr: Copies to: DO Valeriano Morris MD Shaikh Fawwad, MD~ HPI Consult Date: 03/10/23 Primary Care Provider: Shaikh Anthony MD Consult Narrative Reason for consult: lung abscess HPI: Ms. Perez is a 48 year old female with persistent SOB. CT read as lung abscess with elevated WBC. Pt agreed with admission. Chart and CT reviewed. [facility] Medical History (Updated 03/10/23 @ 15:26 by Valeriano Horta MD) Anxiety COPD (chronic obstructive pulmonary disease) Depression Diabetes mellitus, type 2 GERD (gastroesophageal reflux disease) Hyperlipidemia On home oxygen therapy pt states should be but does not use Surgical History History of bilateral breast reduction surgery History of cholecystectomy History of hysterectomy History of tonsillectomy Family History Father Diabetes mellitus, type 2 Mother Breast cancer Social History Smoking Status: Current every day smoker Tobacco Type: cigarettes Substance Use Type: None Meds Medications and Allergies Allergies sumatriptan [From Imitrex] Allergy (Verified 03/10/23 12:17) Hives Home and Active Medications: Home Medications albuterol sulfate 90 mcg/actuation aerosol inhaler (Ventolin HFA) 1 - 2 inh inhalation Q4-6H 10/31/20 [History Confirmed 03/31/21] hydroxyzine HCl 25 mg tablet 25 mg PO QID PRN Anxiety 10/31/20 [History Confirmed 10/31/20] ibuprofen 800 mg tablet 800 mg PO TID 10/31/20 [History Confirmed 03/31/21] insulin aspart U-100 100 unit/mL (3 mL) subcutaneous pen (Novolog FlexPen U-100 Insulin aspart) 1 unit subcut ACHS 10/31/20 [History Confirmed 03/10/23] insulin glargine 100 unit/mL (3 mL) subcutaneous pen (Lantus Solostar U-100 Insulin) 50 unit subcut BID 10/31/20 [History Confirmed 01/30/21] lamotrigine 150 mg tablet (Lamictal) 150 mg PO BID 10/31/20 [History Confirmed 03/10/23] omeprazole 40 mg capsule,delayed release 40 mg PO QAM 10/31/20 [History Confirmed 03/10/23] risperidone 3 mg tablet (Risperdal) 1 mg PO BID 10/31/20 [History Confirmed 03/31/21] simvastatin 20 mg tablet 20 mg PO QHS 10/31/20 [History Confirmed 03/31/21] spironolactone 50 mg tablet 50 mg PO QAM 10/31/20 [History Confirmed 03/31/21] tiotropium bromide 2.5 mcg/actuation mist for inhalation (Spiriva Respimat) 1 inh inhalation BID 10/31/20 [History Confirmed 03/31/21] tizanidine 4 mg tablet 8 mg PO Q8H 10/31/20 [History Confirmed 01/02/21] trazodone 50 mg tablet 50 mg PO QHS PRN Insomnia 10/31/20 [History Confirmed 01/02/21] venlafaxine 75 mg tablet 75 mg PO QAM 10/31/20 [History Confirmed 03/31/21] buprenorphine 8 mg-naloxone 2 mg sublingual film (Suboxone) 2 film buccal DAILY 03/31/21 [History Confirmed 03/31/21] cyclobenzaprine 10 mg tablet 10 mg PO TID PRN Muscle Spasm 03/31/21 [History Confirmed 03/31/21] atorvastatin 40 mg tablet 40 mg PO DAILY 03/10/23 [History Confirmed 03/10/23] budesonide 160 mcg-glycopyr 9 mcg-formot 4.8 mcg/actuation HFA inhaler (Breztri Aerosphere) inhalation 03/10/23 [History] dapagliflozin propanediol 10 mg tablet (Farxiga) 10 mg PO DAILY 03/10/23 [History Confirmed 03/10/23] escitalopram oxalate 20 mg tablet 20 mg PO DAILY 03/10/23 [History Confirmed 03/10/23] gabapentin 300 mg capsule 300 mg PO QHS 03/10/23 [History Confirmed 03/10/23] sitagliptin phos 100 mg-metformin ER 1,000 mg tablet,extend rel 24h mp (Janumet XR) 1 tab PO QHS 03/10/23 [History Confirmed 03/10/23] Active Medications Sodium Chloride (Sodium Chloride 0.9 % 10 Ml Syringe) 0 ml IV-PUSH PRN PRN PRN Reason: Flush Stop: 03/09/24 12:16 Last Admin: 03/10/23 15:09 Dose: 10 ml Exam Physical Exam Vital Signs: Temp Pulse Resp BP Pulse Ox O2 Del Method O2 Flow Rate 97.8 F 74 16 111/64 96 Room Air 2 03/10/23 12:14 03/10/23 14:35 03/10/23 14:35 03/10/23 14:35 03/10/23 14:35 03/10/23 14:35 03/10/23 13:52 Results Labs Results 03/10/23 12:55 03/10/23 12:55 Labs 03/10/23 12:55 03/10/23 12:55 PT 14.3 Seconds (9.0-12.9) H 03/10/23 12:55 INR 1.2 03/10/23 12:55 APTT 40.2 Seconds (25.1-36.5) H 03/10/23 12:55 Total Bilirubin 0.7 mg/dl (0.3-1.0) 03/10/23 12:55 AST 10 U/L (13-39) L 03/10/23 12:55 Alkaline Phosphatase 110 U/L (34-104) H 03/10/23 12:55 Total Protein 6.9 gm/dL (6.4-8.9) 03/10/23 12:55 Albumin 3.3 gm/dL (3.5-5.7) L 03/10/23 12:[address] scan - chest: Additional comments: I reviewed her CT scan. Diffuse GGO of all lung gonzalez. Large infiltrative process with central cavitation concerning for necrotizing pneumonic process. No fluid levels present yet that could be drained. A&P - Cardiothoracic Surgery (1) Pneumonia: Code(s): J18.9 - Pneumonia, unspecified organism Status: Acute Plan Agree with admission for antibiotics. Will follow. If process turns into abscessed lung, then will decide on appropriate drainage. No surgery needed at this time Documented By: Valeriano Horta MD 03/10/23 1522 Signed By: <Electronically signed by Valeriano Horta MD> 03/10/23 1527 [facility] Work Phone: [phone]) 947-606007-02-2023 Evaluation note* Encounter Date Diagnosis Assessment Notes Treatment Notes Treatment Clinical Notes Feb, Sore throat (ICD-10 - J02.9) Feb, Viral URI (ICD-10 - J06.9) testing is negative today in clinic. low suspicion for bacterial infection at this time. continue symptomatic tx c otc meds prn. recommended hot steam baths and/or cool mist humidifier. push rest/fluids. reinforced universal infection control protocols and good hand hygiene for infection control. pt education and anticipatory guidance provided on viral vs bacterial infection progression. immediate eval if warning s/s of intractable fevers, respir distress or other emergent symptoms. otherwise f/u with PCP if febrile or new/worsening s/s. Feb, Chronic obstructive pulmonary disease, unspecified COPD type (ICD-10 - J44.9) pt reports wheezing at baseline 2/2 COPD. denies any worsening symptoms in this respect. advised pt continue with COPD medications as prescribed. advised pt to have a low threshold for f/u if COPD exaccerbation or evaluation for possible sequelae into bronchitis/pneumoni a. [facility] Other 08-26-2022 NotePROCEDURE: XR HIP RT 2 3V WO PELVIS HISTORY: Pain in right hip joint , chronic COMPARISON: None. FINDINGS: BONES:No fracture, acute abnormality, or significant arthropathy. SOFT TISSUES:No visible soft tissue swelling. EFFUSION:None visible. OTHER: Negative. IMPRESSION: 1. Normal examination. Electronically authenticated by: GERMAINE FARRELL Date: 2022-04-10 08:14[facility] Author Krunal Kelly [facility] March 17, 2023 1:24pm Note Date/Time March 14, 2023 1:54 pm [facility] [address] [place] [address] Discharge Summary Signed Patient: Christiane Perez MR#: [id number] : 1975 Acct:[id number] Age/Sex: 48 / F Adm Date: 3 Loc: Room: 8D0265-[address]: Krunal Kelly DO Copies to: MD Errol Johnson MD Kristopher L Lindbloom, DO Shaikh Fawwad, MD~ Providers Date of Discharge: 03/14/23 Discharging Provider: Krunal Kelly Primary Care Provider: Shaikh Anthony Consults: 03/10/23 16:33 Consult to Pulmonology Routine Consult to Thoracic Surgery Routine 03/14/23 11:36 Consult to Case Management Routine Discharge Diagnosis (1) Lung mass: (2) COPD (chronic obstructive pulmonary disease): (3) Tobacco abuse: (4) Aspiration pneumonia of left upper lobe: (5) Diabetes mellitus, type 2: Final Diagnosis Final Discharge Diagnosis: Left upper lobe of lung dense consolidative pneumonia - organism not defined at the time of discharge. Some suspicion of abscess or underlying cancer. History of COPD, with intermittent use of oxygen in the past. Tobacco smoking. Diabetes mellitus type 2 Summary Hospital Course Hospital course: This is a 48-year-old woman who presented emergency room with left-sided chest pain radiating to her left back and down the left side of her rib cage towards her abdomen. She had been seen at an outside emergency department a few days prior to this and diagnosed with a left upper lobe lung abscess and was recommended to be admitted but she decided to go home on an oral antibiotic. It seems that she was taking Levaquin and clindamycin at home. She was directed to follow-up withher primary care provider but then was directed to come to the hospital so that is why she presented to the ER here. On presentation she denied fevers or chills. She is a 2 pack/day smoker. She has used oxygen off and on at home and normally uses this just normally at nighttime. Despite her young age 48 she is described as having severe COPD. She also has diabetes and is on other chronic medications. CT scanning showed that in the left upper lung there was a some hilar consolidation with regions of cavitation consistent with a possible lung abscess. Adjacent consolidation was felt to possibly represent additional infiltrate. Follow-up assessment for confirmation of resolution was recommended. There is also an indeterminate hepatic lesion. There was a low-densityright adrenal nodule of 2.3 cm which was felt to represent an adenoma. Pulmonology with Dr. Nicole saw the patient. He commented that the abnormal CT scanning findings, recent weight loss, was suspicious for malignancy in additionof the pulmonary abscess. Possibilities could be postobstructive necrotizing ammonia or a large mass with central necrosis, which could occur with squamous cell carcinoma. He recommended bronchoscopy, which he performed on the same dayon 03/11/2023. The patient's presenting white blood count was 16.6. By the next day this improved to 11.7. It then down trended during the last 3 days in the hospital and to 9.6. Sputum expectoration grew Janine tropicalis and Janine albicans, which was also isolated from the bronchial washings from the left upper lobe. However the patient does not seem to have any features that would put her at risk of a fungal infection like this so pulmonology decided not to target this with antifungal medications at this time, but to wait for the final pathology reports. Final pathology report is still pending at the time of this discharge summary creation. It is felt that the patient is appropriate to be sent home on oral antibiotics and follow-up closely with pulmonology and possibly thoracic surgeryon outpatient basis over the next week or so. Time spent discussing smoking cessation with patient: more than 10 minutes Condition Condition at Discharge: Fair Status at Discharge Functional status at discharge: independent ambulation Overall status at discharge: patient is progressing back to baseline Time Spent with Patient Time spent providing/coordinating discharge services (# min): 44 Surgeries and Procedures Operation Date: 03/11/23 14:30 Actual Procedures p DH Bronchosopy Flexible w/C-Arm/bx(Not Applicable) - Errol Nicole MD Diagnostic Studies Completed and Pending Studies Pending studies at discharge: 03/10/23 12:53 Blood Culture Stat 03/11/23 15:02 XR chest 1V portable Stat 03/14/23 06:29 A1C with Estimated Average Glu [CHEM] IN AM 03/15/23 05:00 CMP [Comprehensive Metabolic Panel] [CHEM] IN AM Complete Blood Count Auto Diff IN AM 03/15/23 17:00 Vancomycin,Peak [TOX] Timed 03/15/23 22:30 Vancomycin,Trough [TOX] Timed 03/16/23 05:00 CMP [Comprehensive Metabolic Panel] [CHEM] IN AM Complete Blood Count Auto Diff IN AM 03/17/23 05:00 CMP [Comprehensive Metabolic Panel] [CHEM] IN AM Complete Blood Count Auto Diff IN AM 03/18/23 05:00 CMP [Comprehensive Metabolic Panel] [CHEM] IN AM Complete Blood Count Auto Diff IN AM 03/19/23 05:00 CMP [Comprehensive Metabolic Panel] [CHEM] IN AM Complete Blood Count Auto Diff IN AM 03/20/23 05:00 CMP [Comprehensive Metabolic Panel] [CHEM] IN AM Complete Blood Count Auto Diff IN AM Preliminary micro results at discharge 03/11/23 14:40 Acid Fast Bacilli Culture & Smear - Pending Bronchial Washings - Left Upper Lobe 03/10/23 12:53 Blood Culture - Preliminary Blood - Left Hand No Growth 2 Days 03/10/23 12:41 Blood Culture - Preliminary Blood - Left Antecubital No Growth 2 Days 03/11/23 14:40 Mycology Culture - Pending Bronchial Washings - Left Upper Lobe Fungal Culture Result 1 - Pending Labs on day of discharge: 03/14/23 10:24: POC Glucose 249 03/14/23 06:33: POC Glucose 95, POC Glucose Comment Glu2: cleaned meter 03/14/23 06:29: PHA Creatinine Clear 119.15, Sodium 138, Potassium 3.7, Chloride 108 H, Carbon Dioxide 24.8, Anion Gap 8.9, BUN 6 L, Creatinine 0.68, Est GFR (CKD- EPI) > 60.0, Glucose 86, Calcium 8.3 L, Total Bilirubin 0.7, AST 8 L, ALT 5 L, Alkaline Phosphatase 94, Total Protein 6.6, Albumin 2.9 L, Globulin 3.7, Albumin/Globulin Ratio 0.8 03/14/23 06:29: Corrected WBC 9.6, Uncorrected WBC Count 9.6, RBC 3.65, Hgb 12.0, Hct 35.1, MCV 96.4, MCH 32.8, MCHC 34.1, RDW 15.5 H, Plt Count 424, MPV 6.2 L, Neut % (Auto) 71.0, Lymph % (Auto) 16.8, Edmunds % (Auto) 7.1, Eos % (Auto) 4.4, Baso % (Auto) 0.7, Nucleat RBC Rel Count 0.1, Neut # (Auto) 6.8, Lymph # (Auto) 1.6, Edmunds # (Auto) 0.7, Eos # (Auto) 0.4, Baso # (Auto) 0.1 03/13/23 20:52: POC Glucose 152, POC Glucose Comment Glu2: cleaned meter 03/13/23 16:02: POC Glucose 190 Exam Physical Exam Vital Signs: Temp Pulse Resp BP Pulse Ox O2 Del Method O2 Flow Rate 97.6 F 79 18 144/87 H 96 Room Air 2 03/14/23 12:41 03/14/23 12:41 03/14/23 12:41 03/14/23 12:41 03/14/23 12:41 03/14/23 12:41 03/13/23 00:00 Narrative: General: Sitting up on side of the bed. Visiting with a close friend. Pulmonary: Diminished in the left upper lobe and a vague way. No focal areas of crackles. No wheezing. Right now she is on room air. The rest lung sounds are clear. Heart: RRR, No M,R or G. Regular rate and rhythm to auscultation. GI: Normal bowel sounds to auscultation. Ext: No edema to both legs and no changes to both calves. Discharge Plan Discharge Plan Patient Disposition: Home Activity: No Activity Restriction Diet: Regular Additional Instructions: Continue home oxygen per chronic orders. Instructions: Amoxicillin and Clavulanate, Lung Abscess (DC) Prescriptions: New amoxicillin-pot clavulanate 875-125 mg tablet 1 tab PO Q12H Qty: 84 0RF hydrocodone-acetaminophen 5-325 mg Tablet 1 tab PO Q4H PRN (Reason: moderate pain) 5 Days Qty: 20 0RF Continued lamotrigine [Lamictal] 150 mg tablet 150 mg PO BID Patient Comments: TAKE 1 TABLET BY MOUTH TWICE A DAY trazodone 50 mg tablet 50 mg PO QHS PRN (Reason: Insomnia) ibuprofen 800 mg tablet 800 mg PO TID Patient Comments: TAKE 1 TABLET BY MOUTH 3 TIMES A DAY WITH FOOD NEEDED tizanidine 4 mg tablet 8 mg PO Q8H Patient Comments: TAKE 2 TABLETS BY MOUTH 3 TIMES A DAY NEEDED omeprazole 40 mg capsule,delayed release(DR/EC) 40 mg PO QAM Patient Comments: TAKE 1 CAPSULE BY MOUTH EVERY DAY risperidone [Risperdal] 3 mg tablet 1 mg PO BID Patient Comments: TAKE 1 TABLET BY MOUTH TWICE A DAY albuterol sulfate [Ventolin HFA] 90 mcg/actuation HFA aerosol inhaler 1 - 2 inh INHALATION Q4-6H insulin aspart U-100 [Novolog FlexPen U-100 Insulin] 100 unit/mL (3 mL) Insulin Pen 1 unit SUBCUT ACHS Rx Instructions: sliding scale only atorvastatin 40 mg tablet 40 mg PO DAILY Patient Comments: TAKE 1 TABLET BY MOUTH EVERY DAY escitalopram oxalate 20 mg tablet 20 mg PO DAILY Patient Comments: TAKE 1 TABLET BY MOUTH EVERY DAY Janumet XR 100-1,000 mg tablet, ER multiphase 24 hr 1 tab PO QHS Patient Comments: TAKE 1 TABLET BY MOUTH EVERYDAY AT BEDTIME Farxiga 10 mg Tablet 10 mg PO DAILY Breztri Aerosphere 160-9-4.8 mcg/actuation HFA aerosol inhaler 1 puff inhalation DAILY Patient Comments: INHALE 1 PUFF EVERY 12 HOURS insulin glargine [Basaglar KwikPen U-100 Insulin] 100 unit/mL (3 mL) Insulin Pen 20 unit SUBCUT QPM gabapentin 800 mg tablet 800 mg PO TID Patient Comments: TAKE 1 TABLET BY MOUTH THREE TIMES A DAY levofloxacin 750 mg tablet Patient Comments: TAKE 1 TABLET BY MOUTH EVERY DAY FOR 10 DAYS Follow Up: Errol Nicole MD [Active Staff] - (Office will call you for follow up appointment in six to eight weeks with follow up CT scan of the thorax prior. ) Valeriano Horta MD [Active Staff] - (Call office for follow up in [address] chest pre visit) Shaikh Cruz MD [Primary Care Provider] - (Call office on Wednesday to schedule follow-up with your Primary Care Provider in 3-5 days.) Documented By: Krunal Kelly DO [id number] Signed By: <Electronically signed by Krunal Kelly DO> 03/17/23 1324 [facility] Work Phone: Evaluation noteNo Assessments Information Available [facility] assessment information available [facility] noteNo InformationNort Waffle Other Evaluation note* Diagnosis Onset Date Resolution Status Abscess of left lung with pneumonia acute Abscess of lung acute COPD (chronic obstructive pulmonary disease) acute Diabetes mellitus, type 2 ac dimple Lung mass acute Pneumonia acute Tobacco abuse acute [facility] Work Phone: Evaluation note* Diagnosis Hoarse- Primary Dysphonia Chronic laryngitis Thrush Candidiasis of mouth documented in this encounter [facility] N[facility]ative - Reported* Type Description Date Medical History DIABETIC Medical History BI POLAR Medical History NEUROPATHY IN LEGS Medical History COPD Medical History GENITAL HERPES Medical History high cholesterol Medical History high blood pressure Surgical History Cholecystectomy Surgical History tonsillectomy Surgical History breast reduction 1996 Surgical History parital hysterectomy 2009 Hospitalization History see above [facility] Other [facility] general Narrative - Reported* Type Description Date Medical History DIABETIC Medical History BI POLAR Medical History NEUROPATHY IN LEGS Medical History COPD Medical History GENITAL HERPES Medical History high cholesterol Medical History high blood pressure Surgical History Cholecystectomy Surgical History tonsillectomy Surgical History breast reduction 1996 Surgical History parital hysterectomy 2009 Hospitalization History [facility] Lung Abcess 03/2023 Hospitalization History aspiration pneumonia 201 5 [facility] Other [facility] general Narrative - Reported* Type Description Date Medical History DIABETIC Medical History BI POLAR Medical History NEUROPATHY IN LEGS Medical History COPD Medical History GENITAL HERPES Medical History high cholesterol Medical History high blood pressure Medical History [facility] lung abcess 02/2023 -- [facility] Surgical History Cholecystectomy Surgical History tonsillectomy Surgical History breast reduction 1996 Surgical History parital hysterectomy 2009 Hospitalization History [facility] Lung Abcess 03/2023 Hospitalization History aspiration pneumonia 201 5 [facility] Other Hospital Discharge instructions Additional Instructions Continue home oxygen per chronic orders.[facility] Work Phone: Hospital Discharge instructions Additional Instructions Steroids daily Use albuterol inhaler as instructed Push fluids Rest Follow with your PCP Avoid smoking Return here if any problems persist worse[facility] Work Phone: Advance Directives No Advanced Directives Records Found Advance Directive Response Recorded Date/ Time Advance Directives No December 03 021 3:49pm Advance Directive Response Recorded Date/ Time Advance Directives No December 27 1 9:56am Advance Directive Response Recorded Date/ Time Advance Directives No December 27 1 8:56am Chief Complaint and Reason for Visit Chief Complaint Left Eye Cataract Left Eye Cataract Chief Complaint Left Eye Cataract Left Eye Cataract Right Eye Cataract Chief Complaint Left Eye Cataract Left Eye Cataract Right Eye Cataract Left Eye Cataract Chief Complaint Left Eye Cataract Left Eye Cataract Right Eye Cataract Left Eye Cataract Right Eye Cataract Chief Complaint abscess Reason for Visit Abscess of left lung with pneumonia Abscess of lung COPD (chronic obstructive pulmonary disease) Diabetes mellitus, type 2 Lung mass Pneumonia Tobacco abuse Chief Complaint abscess j85.2 Reason for Visit Abscess of left lung with pneumonia Abscess of lung COPD (chronic obstructive pulmonary disease) Diabetes mellitus, type 2 Lung mass Pneumonia Tobacco abuse Chief Complaint j85.2 SOB Chief Complaint SOB sob Chief Complaint SOB sob chest pains Chief Complaint SOB sob chest pains j85.1 Family History No Family History Records Found Relationship Condition Age at Onset Recorded Date/T charlee father Type 2 diabetes mellitus Unknown Not Specified Malignant neoplasm of breast Unknown Summary Purpose Reason for Referral Reason Appt: PENDING Requ ested for Voice Hoarseness Diagnosis 1 Voice hoarseness (R4 9.0) Referral Organization [facility] Referring Provider First Name Bambi Referring Provider Last Name Sandy Referring Provider Specialty Nurse Pract itioner Referred Organization [facility] Referred Provider Naomi Bernard Referred Address [address] [place], [place],[address] Referred Provider Specialty Ear, Nose an d Throat Referral Priority Routine General Notes Shanelle Ortega 12:04:45 PM >referral faxed Additional Source Comments Goals (unrecognized section and content) Goals may be documented in a n alternate sectionGoals may be documented in an alternate sectionGoals may be documented in an alternate sectionNo InformationNo InformationNo InformationGoals may be documented in an alternate sectionGoals may be documented in an alternate sectionGoals may be documented in an alternate sectionGoals may be documented in an alternate sectionNo InformationNo InformationNo Information INFORMATION SOURCE (unrecogn ized section and content) DATE CREATED AUTHOR 06/15/2021 [facility] [employer] [facility] DATE CREATED AUTHOR AUTHOR'S ORGANIZ ATION 12/06/2022 [facility] DATE CREATED AUTHOR AUTHOR'S ORGANIZ ATION 02/19/2023 [facility] DATE CREATED AUTHOR AUTHOR'S ORGANIZ ATION 03/24/2023 [facility] DATE CREATED AUTHOR AUTHOR'S ORGANIZ ATION 10/02/2023 [facility] DATE CREATED AUTHOR AUTHOR'S ORGANIZ ATION 10/21/2023 [facility] DATE CREATED AUTHOR AUTHOR'S ORGANIZ ATION 10/22/2023 [facility] EPIC REASON FOR VISIT (unrecogniz ed section and content) Reason Comments Hoarseness X 4-5 mo Care Teams (unrecognized sec tion and content) Team Status: Active Member Role Status Rasheed Cruz MD Primary Care Provider Active Team Status: Inactive Member Role Status Dates Shaikh Anthony MD Primary Care Provider Active Lavell Salazar DO Emergency Provider Active Eron Wood MD Admit Provider Active Errol Nicole MD Other Provider Active Valeriano Horta MD Other Provider Active Krunal Kelly DO Attending Provider Active Team Status: Inactive Member Role Status Rasheed Cruz MD Primary Care Provider Active Valeriano Horta MD Attending Provider Active Team Status: Inactive Member Role Status Rasheed Cruz MD Primary Care Provider Active HERSON ColeC Emergency Provider Active Team Status: Inactive Member Role Status Dates Shaikh Anthony MD Primary Care Provider Active Yasmin Leung MD Emergency Provider Active Team Status: Inactive Member Role Status Rasheed Crzu MD Primary Care Provider Active Marilee Marcum APRN Emergency Provider Active Team Status: Inactive Member Role Status Rasheed Cruz MD Primary Care Provider Active Errol Nicole MD Attending Provider Active Feather Trimmer Relationship Specialty Start Date End Date Shaikh Cruz MD PCP - General Internal Medicine 02/24/23 Feather Trimmer Relationship Specialty Start Date End Date Shaikh Cruz MD [address] [place] [id number] PCP - General Internal Medicine 09/29/23 Feather Trimmer Relationship Specialty Start Date End Date Shaikh Cruz MD [address] [place] [id number] PCP - General Internal Medicine 09/29/23 FOR RECORDS PERTAINING TO PATIENTS WHO ARE OR HAVE BEEN ENROLLED IN A CHEMICAL DEPENDENCY/SUBSTANCEABUSE PROGRAM, SOME INFORMATION MAY BE OMITTED. This clinical summary was aggregated from multiple sources. Caution should be exercised in using it in the provision of clinical care. This summary normalizes information from multiple sources, and as a consequence, information in this document may materially change the coding, format and clinical context of patient data. In addition, data may be omitted in some cases. CLINICAL DECISIONS SHOULD BE BASED ON THE PRIMARY CLINICAL RECORDS. [employer] [facility]. provides no warranty or guarantee of the accuracy or completeness of information in this document.
[2023-10-30] MEDS: ALBUTEROL SULFATE 2.5 MG/3 ML VIAL NEB IH (14:57)
[2023-10-30 14:59] LABS: Basophils Percent Auto 0.3 % (0.2-2.0); Eosinophils Percent Auto 0.2 % (0.9-7.0); Hematocrit 50.3 % (36.0-48.0); Hemoglobin 16.4 g/dL (12.0-16.0); Immature Granulocytes Abs Auto 0.11 10^3/uL (0.00-0.03); Lymphocytes Absolute Auto 1.1 10^3/uL (1.2-3.8); Lymphocytes Percent Auto 9.6 % (20.5-60.0); Mean Corpuscular HGB Conc 32.6 g/dL (29.9-35.2); Mean Corpuscular Hemoglobin 32.3 pg (26.7-34.0); Mean Corpuscular Volume 99.2 fL (81.0-99.0); Mean Platelet Volume 9.5 fL (9.5-13.5); Monocytes Absolute Auto 0.5 10^3/uL (0.3-0.8); Monocytes Percent Auto 4.7 % (1.7-12.0); Neutrophils Absolute Auto 9.5 10^3/uL (1.4-6.5); Neutrophils Percent Auto 84.2 % (43.0-75.0); Platelet Count 252 10^3/uL (150-450); Red Blood Count 5.07 10^6/uL (4.20-5.40); Red Cell Distribution Width 15.4 % (11.0-15.0); White Blood Count 11.3 10^3/uL (4.0-11.0)
[2023-10-30 15:20] LABS: SARS-CoV-2 Ag NEGATIVE (NEGATIVE)
[2023-10-30 15:21] LABS: Influenza Virus A Antigen Negative; Influenza Virus B Antigen Negative; Internal Control Within Normal Limits
[2023-10-30 15:22] LABS: Anion Gap 11.8; BUN Creatinine Ratio 18.3; Calcium 8.9 mg/dL (8.5-10.1); Carbon Dioxide 27.7 mmol/L (21.0-32.0); Chloride 102 mmol/L (98-107); Estimated GFR (African America >60 (>=60); Estimated GFR (Non-African Ame >60 (>=60); Glucose 139 mg/dL (74-106); Potassium 3.5 mmol/L (3.5-5.1); Sodium 138 mmol/L (136-145); Troponin I High Sensitivity 18.3 pg/mL (4.0-51.3)
[2023-10-30] MEDS: METHYLPREDNISOLONE SOD SUCC PF 125 MG/2 ML VIAL IVP (15:23)
[2023-10-30 17:03] LABS: Troponin I High Sensitivity 18.5 pg/mL (4.0-51.3)
[2023-10-30] MEDS: AZITHROMYCIN 250 MG TABLET 500 MG PO (17:37)
== END 2023-10-30 17:46 | disposition home or self-care (01) ==
PROVIDERS: Emergency Provider Emergency Medicine; PCP Internal Medicine
DX: J44.9 Chronic obstructive pulmonary disease, unspecified (principal); Z79.899 Other long term (current) drug therapy; Z79.4 Long term (current) use of insulin; F17.210 Nicotine dependence, cigarettes, uncomplicated
CPT/HCPCS: 36415; 71045; 80048; 83880; 84484; 85025; 87804; 87811; 93005; 94640; 96374; 99285; J2930

== ENCOUNTER 2024-01-18 01:04 | Inpatient (IN) | payer MEDICARE, SELFPAY ==
[2024-01-18] VITALS (119 sets, daily range): BP systolic 91–116; BP diastolic 53–72; PULSE 66–104; RESP 14; TEMP 36.2–37.3; O2SAT 82–100; BMI 32.1; BMI 31.2
[2024-01-18 01:23] LABS: Glucometer 213 mg/dL (74-106)
--- NOTE | 2024-01-18 01:26 | XR_ITS ---
The [address] [address] Patient Name: DIAN RAY MRN: [id number] date: 1975 Sex: F Assigned Patient Location: ER Current Patient Location: ER Accession/Order Number: [id number] Exam Date: 01/18/2024 01:35 Report Date: 01/18/2024 02:54 At the request of: AMILCAR SANDERS Procedure: XR chest 1V EXAM: XR chest 1V HISTORY: Weakness, history of COPD COMPARISON: Chest radiograph dated 10/30/2023. TECHNIQUE: One view of the chest was obtained. FINDINGS: The cardiac silhouette is stable in size. There are mixed interstitial and airspace opacities in the mid to lower lungs. There is no significant pneumothorax or pleural effusion. No acute osseous abnormality is seen. XR/XR chest 1V IMPRESSION: 1. Mixed interstitial and airspace opacities in the mid to lower lungs are felt to represent edema though infection could be present. Electronically authenticated by: Carol JOSHUA Date: 01/18/2024 02:54
--- NOTE | 2024-01-18 01:26 | ECG_ITS ---
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
--- NOTE | 2024-01-18 01:28 | ED_ITS ---
HPI - SOB/Dyspnea General Chief Complaint: Shortness of Breath/Dyspnea Stated Complaint: WEAKNESS Time Seen by Provider: 01/18/24 01:12 Source: patient and medical record Mode of arrival: ambulance Limitations: no limitations History of Present Illness HPI Narrative: 48-year-old female presents for weakness and shortness of breath. It is not clear how long she has had this issue but she states her mother was concerned so she made her come here. She has been tired and has not eaten or drank much today. No known fever. She has COPD and continues to smoke. She is not complaining to me of chest or abdominal pain. Related Data Home Medications ?Medication ?Instructions ?Recorded ?Confirmed atorvastatin 40 mg tablet 40 mg PO DAILY 03/07/23 01/18/24 budesonide 160 mcg-glycopyr 9 1 inh inhalation BID 03/07/23 01/18/24 mcg-formot 4.8 mcg/actuation HFA inhaler (Breztri Aerosphere) dapagliflozin propanediol 10 mg 10 mg PO DAILY 03/07/23 01/18/24 tablet (Farxiga) dulaglutide 1.5 mg/0.5 mL 3 mg subcut QWEEK 03/07/23 01/18/24 subcutaneous [facility]or [facility] escitalopram oxalate 20 mg tablet 20 mg PO DAILY 03/07/23 01/18/24 gabapentin 800 mg tablet 800 mg PO TID 03/07/23 01/18/24 ibuprofen 800 mg tablet 800 mg PO TID 03/07/23 01/18/24 insulin aspart U-100 100 unit/mL 10 unit subcut TID 03/07/23 01/18/24 (3 mL) subcutaneous pen (Novolog FlexPen U-100 Insulin aspart) lamotrigine 150 mg tablet 150 mg PO BID 03/07/23 10/30/23 mirtazapine 30 mg tablet 30 mg PO BEDTIME 03/07/23 10/30/23 omeprazole 40 mg capsule,delayed 40 mg PO DAILY 03/07/23 01/18/24 release risperidone 1 mg tablet 1 mg PO BID 03/07/23 01/18/24 sitagliptin phos 100 mg-metformin 1 tab PO BEDTIME 03/07/23 01/18/24 ER 1,000 mg tablet,extend rel 24h mp (Janumet XR) tizanidine 4 mg tablet 4 mg PO TID PRN muscle spasticity 03/07/23 01/18/24 lorazepam 1 mg tablet (Ativan) 1 mg PO Q12H 05/08/23 01/18/24 Previous Rx's ?Medication ?Instructions ?Recorded methocarbamol 750 mg tablet 750 mg PO TID PRN pain #20 tabs 03/07/23 nicotine (polacrilex) 4 mg gum 4 mg buccal Q8H PRN nicotine 05/09/23 (Nicorette) cravings #110 ea nicotine 21 mg/24 hr daily 1 patch transdermal Q24H #28 ea 05/09/23 transdermal patch (Nicoderm CQ) tramadol 50 mg tablet 50 mg PO Q4H PRN pain #15 tabs 06/17/23 Allergies Allergy/AdvReac Type Severity Reaction Status Date / Time sumatriptan [From Imitrex] Allergy Severe Verified 01/18/24 01:26 Review of Systems ROS Narrative A ten point review of systems is negative except as noted above. PFSH PFS Social History Smoking status: Current every day smoker Exam Narrative Exam Narrative: Nurses note and vital signs reviewed and patient is not hypoxic. General: The patient appears fatigued. She answers all questions appropriately. Skin: Warm, dry, no pallor noted. There is no rash noted. Head: Normocephalic, atraumatic Eye: Normal conjunctiva, no drainage Ears, Nose, Mouth, and Throat: oral mucosa is somewhat dry. Nares patent. Cardiovascular: Regular Rate and Rhythm Respiratory: Bilateral rhonchi present. Breath sounds are equal. She has difficulty taking in deep breaths. Back: non-tender GI: Soft and nontender Musculoskeletal: The patient has no evidence of calf tenderness, no pitting edema, symmetrical pulses noted bilaterally Neurological: Awake and alert. She is fully oriented and moves all 4 extremities well. She is slow to answer some questions. Psychiatric: Cooperative Constitutional Vital Signs, click to edit/add: Last Vital Signs Temp 97.8 F 01/18/24 01:14 Pulse 96 H 01/18/24 02:45 Resp 26 H 01/18/24 02:52 BP 93/57 01/18/24 02:45 Pulse Ox 95 01/18/24 02:51 O2 Del Method Nasal Cannula 01/18/24 01:44 O2 Flow Rate 5 01/18/24 02:00 FiO2 40 01/18/24 02:51 Course Vital Signs Vital signs: Vital Signs Temperature 97.8 F 01/18/24 01:14 Pulse Rate 94 H 01/18/24 01:14 Respiratory Rate 18 01/18/24 01:14 Blood Pressure 105/65 01/18/24 01:14 Pulse Oximetry 82 L 01/18/24 01:14 Oxygen Delivery Method Room Air 01/18/24 01:14 Temperature 97.8 F 01/18/24 01:14 Pulse Rate 96 H 01/18/24 02:45 Respiratory Rate 26 H 01/18/24 02:52 Blood Pressure 93/57 01/18/24 02:45 Pulse Oximetry 95 01/18/24 02:51 Oxygen Delivery Method Nasal Cannula 01/18/24 01:44 Oxygen Delivery Flow Rate 5 01/18/24 02:00 Fraction of Inspired Oxygen 40 01/18/24 02:51 MDM - SOB/Dyspnea MDM Narrative Medical decision making narrative: The patient presented for weakness and drowsiness. She has CO2 retention. Initial blood gas showed a pCO2 of 86. After approximately 30 minutes on BiPAP it had come down to 81. Chest x-ray suggest the possibility of pneumonia and cultures were obtained and she was given IV Rocephin and Zithromax. I do not suspect heart failure at this point. She is being admitted to ICU on BiPAP and does not require intubation at this point. Findings were discussed with her mother and the patient. Her status can be followed by a combination of clinical status and ABGs serially, but at this early point her CO2 is trending down. Differential Diagnosis Differential diagnosis: Likely acute exacerbation of chronic obstructive airways disease, congestive heart failure, community acquired pneumonia and other (COVID, CO2 retention) Lab Data Attestation: I reviewed the patient's lab results. Labs: Lab Results 01/18/24 01/18/24 01/18/24 Range/Units 01:22 01:55 02:23 WBC 9.1 (4.0-11.0) 10^3/uL RBC 4.48 (4.20-5.40) 10^6/uL Hgb 14.2 (12.0-16.0) g/dL Hct 46.3 (36.0-48.0) % MCV 103.3 H (81.0-99.0) fL MCH 31.7 (26.7-34.0) pg MCHC 30.7 (29.9-35.2) g/dL RDW 14.0 (11.0-15.0) % Plt Count 337 (150-450) 10^3/uL MPV 9.2 L (9.5-13.5) fL Neut % (Auto) 67.1 (43.0-75.0) % Lymph % (Auto) 20.0 L (20.5-60.0) % [place] % (Auto) 9.8 (1.7-12.0) % Eos % (Auto) 0.9 (0.9-7.0) % Baso % (Auto) 0.4 (0.2-2.0) % Neut # (Auto) 6.1 (1.4-6.5) 10^3/uL Lymph # (Auto) 1.8 (1.2-3.8) 10^3/uL [place] # (Auto) 0.9 H (0.3-0.8) 10^3/uL Eos # (Auto) 0.1 (0.0-0.7) 10^3/uL Baso # (Auto) 0.0 (0.0-0.1) 10^3/uL Abs Immat Gran (auto) 0.16 H (0.00-0.03) 10^3/uL Imm/Tot Granulo (auto) 1.8 H (0.0-0.5) % Puncture Site R radial ABG pH 7.183 L* (7.350-7.450) ABG pCO2 86.3 H* (35.0-45.0) mmHg ABG pO2 127.0 H (80.0-100.0) mmHg ABG HCO3 32.4 H (22.0-26.0) mmol/L ABG O2 Saturation 99.1 % ABG Base Excess 4.1 H (-2.0-2.0) mmol/L Emigdio Test Positive (POSITIVE) O2 Liters/Min 5 FiO2 % Sodium 141 (136-145) mmol/L Potassium 3.3 L (3.5-5.1) mmol/L Chloride 102 (98-107) mmol/L Carbon Dioxide 32.1 H (21.0-32.0) mmol/L Anion Gap 10.2 BUN 3.0 L (7.0-18.0) mg/dL Creatinine 0.77 (0.55-1.02) mg/dL Est GFR ( Amer) >60 (>=60) Est GFR (Non-Af Amer) >60 (>=60) BUN/Creatinine Ratio 3.9 Glucose 224 H (74-106) mg/dL Calcium 8.8 (8.5-10.1) mg/dL Troponin I High Sens 8.8 (4.0-51.3) pg/mL SARS-CoV-2 Ag (CV2AG) Negative (NEGATIVE) POC Glucose 213 H (74-106) mg/dL 01/18/24 Range/Units 03:00 WBC (4.0-11.0) 10^3/uL RBC (4.20-5.40) 10^6/uL Hgb (12.0-16.0) g/dL Hct (36.0-48.0) % MCV (81.0-99.0) fL MCH (26.7-34.0) pg MCHC (29.9-35.2) g/dL RDW (11.0-15.0) % Plt Count (150-450) 10^3/uL MPV (9.5-13.5) fL Neut % (Auto) (43.0-75.0) % Lymph % (Auto) (20.5-60.0) % [place] % (Auto) (1.7-12.0) % Eos % (Auto) (0.9-7.0) % Baso % (Auto) (0.2-2.0) % Neut # (Auto) (1.4-6.5) 10^3/uL Lymph # (Auto) (1.2-3.8) 10^3/uL [place] # (Auto) (0.3-0.8) 10^3/uL Eos # (Auto) (0.0-0.7) 10^3/uL Baso # (Auto) (0.0-0.1) 10^3/uL Abs Immat Gran (auto) (0.00-0.03) 10^3/uL Imm/Tot Granulo (auto) (0.0-0.5) % Puncture Site R.radial ABG pH 7.208 L* (7.350-7.450) ABG pCO2 81.2 H* (35.0-45.0) mmHg ABG pO2 68.4 L (80.0-100.0) mmHg ABG HCO3 32.3 H (22.0-26.0) mmol/L ABG O2 Saturation 93.6 % ABG Base Excess 4.4 H (-2.0-2.0) mmol/L Emigdio Test Positive (POSITIVE) O2 Liters/Min FiO2 40 % Sodium (136-145) mmol/L Potassium (3.5-5.1) mmol/L Chloride (98-107) mmol/L Carbon Dioxide (21.0-32.0) mmol/L Anion Gap BUN (7.0-18.0) mg/dL Creatinine (0.55-1.02) mg/dL Est GFR ( Amer) (>=60) Est GFR (Non-Af Amer) (>=60) BUN/Creatinine Ratio Glucose (74-106) mg/dL Calcium (8.5-10.1) mg/dL Troponin I High Sens (4.0-51.3) pg/mL SARS-CoV-2 Ag (CV2AG) (NEGATIVE) POC Glucose (74-106) mg/dL ABG Data ABG results: Initial ABG pH 7.18 pCO2 86 repeat ABG pH 7.21 CO2 81 Imaging Data Chest x-ray: Radiologist's impression: ITS Impressions Chest X-Ray 01/18/24 01:26 IMPRESSION: 1. Mixed interstitial and airspace opacities in the mid to lower lungs are felt to represent edema though infection could be present. Electronically authenticated by: Carol JOSHUA Date: 01/18/2024 02:54 ECG Data Attestation: I personally reviewed and interpreted this ECG as follows: (EKG on my interpretation shows sinus rhythm with a rate of 93 and no acute changes) Critical Care Time Critical Care Time Critical Care Time: Yes Total Critical Care Time: 60 Attestation: Due to the high probability of sudden and clinically significant deterioration in the patient's condition he/she required the highest level of my preparedness to intervene urgently I provided critical care time including documentation time, medication orders and management, reevaluation, vital sign assessment, ordering and reviewing of lab tests, ordering and reviewing of x-ray studies, and admission orders. Aggregate critical care time is 60 minutes including only time during which I was engaged in work directly related to his/her care and did not include time spent treating other patients simultaneously. Discharge Plan Discharge Chief Complaint: Shortness of Breath/Dyspnea Clinical Impression: Respiratory failure, Community acquired pneumonia Patient Disposition: Admitted As Inpatient Time of Disposition Decision: 03:23 Condition: Fair
[2024-01-18] MEDS: ALBUTEROL SULFATE 2.5 MG/3 ML VIAL NEB IH (01:44)
[2024-01-18 01:45] LABS: Basophils Percent Auto 0.4 % (0.2-2.0); Eosinophils Absolute Auto 0.1 10^3/uL (0.0-0.7); Eosinophils Percent Auto 0.9 % (0.9-7.0); Hematocrit 46.3 % (36.0-48.0); Hemoglobin 14.2 g/dL (12.0-16.0); Immature Granulocytes Abs Auto 0.16 10^3/uL (0.00-0.03); Immature Granulocytes Pct Auto 1.8 % (0.0-0.5); Lymphocytes Absolute Auto 1.8 10^3/uL (1.2-3.8); Mean Corpuscular HGB Conc 30.7 g/dL (29.9-35.2); Mean Corpuscular Hemoglobin 31.7 pg (26.7-34.0); Mean Corpuscular Volume 103.3 fL (81.0-99.0); Mean Platelet Volume 9.2 fL (9.5-13.5); Monocytes Absolute Auto 0.9 10^3/uL (0.3-0.8); Monocytes Percent Auto 9.8 % (1.7-12.0); Neutrophils Absolute Auto 6.1 10^3/uL (1.4-6.5); Neutrophils Percent Auto 67.1 % (43.0-75.0); Platelet Count 337 10^3/uL (150-450); Red Blood Count 4.48 10^6/uL (4.20-5.40); White Blood Count 9.1 10^3/uL (4.0-11.0)
--- OUTSIDE RECORDS SUMMARY | 2024-01-18 01:45 | XMS_ITS | CCD ---
Author Organization [facility] Inform ion [facility] Care Team Providers Care Supervisor Wet Pour Name Role Phone Walker Alba Attending Provider [phone] Audi Hdez Primary Care Provider PROVIDER, UNKNOWN Admitting Unavailable PROVIDER, UNKNOWN Attending [...] Unavailable FAWWAD, STEPHENS H Primary Care Unavailable STEPHANIE PATTERSON Admitting Unavailable MARCELA ., MR RAZA Consulting Unavailable STEPHANIE PATTERSON Attending Unavailable YASMIN HUERTAS Consulting Unavailable FAWWAD, STEPHENS H Primary Care Unavailable LIVIA, DR VICK Adams Consulting Unavailable LIVIA, DR VICK Adams Attending Unavailable LIVIA, DR VICK Adams Admitting Unavailable AMILCAR SANDERS Admitting Unavailable AMILCAR SANDERS Attending Unavailable BUD, DR GERMAINE Adams Consulting Unavailable FAWWAD, STEPHENS H Primary Care Unavailable AMILCAR SANDERS Consulting Unavailable TONI, SHILPI Consulting Unavailable FAWWAD, STEPHENS H Admitting Unavailable FAWWAD, STPEHENS H Attending Unavailable FAWWAD, STEPHENS H Primary [...] Unavailable FAWWAD, STEPHENS H Attending Unavailable FAWWAD, STEHPENS H Primary Care Unavailable FAWWAD, STEPHENS H Consulting Unavailable FAWWAD, STEPHENS H Attending Unavailable FAWWAD, STEPHENS H Admitting Unavailable FAWWAD, STEPHENS H Primary Care Unavailable FAWWAD, STEPHENS H Admitting Unavailable FAWWAD, STEPHENS H Primary Care Unavailable FAWWAD, STEPHENS H Attending Unavailable FAWWAD, STEPHENS H Consulting Unavailable FAWWAD, STEPHENS H Primary Care Unavailable FAWWAD, STEPHENS H Admitting Unavailable FAWWAD, STEPHENS H Attending Unavailable ZITANIA, DR GERMAINE Adams Consulting Unavailable FAWWAD, STEPHENS H Consulting Unavailable FAWWAD, STEPHENS H Primary Care Unavailable SANTIAGO, KERRI Admitting Unavailable ZIEBER, DR GERMAINE Adams Consulting Unavailable KREDOMITILA, KERRI Attending Unavailable SANTIAGO, KERRI Consulting Unavailable AMILCAR SANDERS Attending Unavailable FAWWAD, STEPHENS H Primary Care Unavailable ZIEBER, DR GERMAINE Adams Consulting Unavailable AMILCAR SANDERS Admitting Unavailable AMILCAR SANDERS Consulting Unavailable LIVIA, DR VICK Adams Consulting Unavailable LIVIA, DR VICK Adams Attending Unavailable LIVIA, DR VICK Adams Admitting Unavailable FAWWAD, STEPHENS H Primary Care Unavailable FAWWAD, STEPHENS H Primary Care Unavailable PAY ., DR ZAPATA Attending Unavailable BOONE, DR SHAJI Osborn Consulting Unavailable PAY ., DR ZAPATA Admitting Unavailable PAY ., DR ZAPATA Consulting Unavailable SAVITA .CHRISTIANE Consulting Unavailable FAWWAD, STEPHENS H Primary Care Unavailable JENNY, DR YASMIN Cortes Attending Unavailsanthosh ALVARADO, DR YASMIN Cortes Consulting Unavailsanthosh ALVARADO, DR YASMIN Cortes Admitting Unavailabl e BUD, DR GERMAINE Adams Consulting Unavailable Alberto, Katie Unavailable Errol Nicole Unavailable MD Joyce Cruz Primary Care Provider DO Lavell Salazar Emergency Provider MD Eron Wood Admit Provider MD Errol Nicole Other Provider MD Valeriano Horta Other Provider DO Krunal Kelly Attending Provider MD Valeriano Horta Attending Provider ValladaresCourtney Unavailable MD Anthony [facility] Primary Care Provider [phone] MD Valeriano Horta Attending Provider [phone] FAVIO Villeda Emergency Provider MD Anthony [facility] Primary Care Provider MD Yasmin Leung Emergency Provider [phone] SHANTI Marcum Emergency Provider MD Errol Nicole Attending Provider Bambi Delgado Unavailable Anthony MASTERS, [facility] Primary [facility] MARVIN SHERWOOD Attending Unavailable PAVAUDI DISLA L Referring Unavailable PAVNIGHAT, AUDI L Primary Care Unavailable Marilee Marcum Admitting Unavailable Marilee Marcum Attending Unavailable [facility] Primary Care Unavailable Chaban, Kamal Admitting Unavailable Patel Nicoleal Attending Unavailable [facility] Primary Care Unavailable Valeriano Horta Admitting Unavailable Valeriano Horta Attending Unavailable [facility] Care Unavailable Krunal Kelly Attending Unavailabl e Eron Wood Admitting Unavailable Chaban, Kamal Consulting Unavailable [facility] Primary Care Unavailable Valeriano Horta Consulting [facility] Unavailable Elio Villeda Admitting Unavailable Elio Villeda Attending Unavailable Yasmin Leung Admitting Unavailable Yasmin Leung Attending Unavailable Shaikh Cruz Primary Care Unavailable NAOMI BERNARD Attending Unavailable SHAIKH CRUZ Attending Unavailable SHAIKH CRUZ Attending Unavailable KEIRY LEW Attending Unavailable SHAIKH CRUZ Referring Unavailable SHAIKH CRUZ Attending Unavailable Allergies Allergy Classification Reported Allergen(s) Allergy Type Date of Onset Reaction(s) Facility Serotonin-1b and Serotonin-1d Receptor Agonists (4 sources) SUMAtriptan Drug Allergy 1 [facility] (1 source) Plasmin Drug Allergy 6 [facility] Repository (16 sources) SUMAtriptan Drug Allergy 3 shortness of breath, Anxiety [facility] (1 source) SUMAtriptan; Translations: [SUMATRIPTAN SUCCINATE] Drug Allergy 0 [facility] Repository (1 source) SUMAtriptan Drug Allergy 4 [facility] Repository Medications Current Medications Medication Drug Class(es) Dates Sig (Normalized) Sig (Original) [id number] 200 actuat albuterol 0.09 mg/actuat metered dose [...] Twice a day Active Continuous Blood Gluc [employer] (FreeStyle Magali 14 Day [place]) device (4 sources) Continuous Blood Gluc [employer] (FreeStyle Magali 14 Day [place]) device 4 (four) times a day as [...] 1.5 mg/ml oral solution (4 sources) Uncompetitive E-dmakce-Z-aspartate Receptor Antagonist, Sigma-1 Agonist Start: 2022 take 10 mL by mouth every eight hours [place] DM 7.5-7.5 MG/5ML 10 mL Orally every [...] Active Furosemide (2 sources) Loop Diuretic Furosemide *plea review for potential _update for e-prescription and drug interaction check* Active gabapentin 800 mg oral tablet (20 sources) Anti-epileptic Agent Start: 2023 take 1 tablet by mouth three times daily gabapentin (Neurontin) 800 MG tablet Indications: Type 2 diabetes mellitus with diabetic polyneuropathy, with long-term current use of insulin ([facility] TAKE 1 TABLET BY MOUTH THREE TIMES [...] 2023 5:04pm take [address] [facility] every eight hours Gabapentin 300 MG 1 tablet Orally three times a day Active take 1 tablet by sandro every twenty-four hours Gabapentin 800 MG 1 [...] Start: 10-31-2020 take 1 tablet by sandro three times daily ibuprofen 800 MG tablet [...] polyneuropathy, with long-term current use of insulin ([facility]) Inject 20 Units under the skin in [...] tablet Orally Once a day Active nystatin 675000 unt/ml oral suspension (2 sources) Polyene Antifungal Start : 09-29 End: 10-09 nystatin (Mycostatin) 406691 UNIT/ML suspension Indications: Thrush Take 5 mL [...] Orally Once a day Active RisperDAL *val e review for potential _update for e-prescription and [...] 2.5 ug by inhalation twice daily Tiotropium [place] (Spiriva Respimat) 2.5 mcg/actuation mist Discontinued 1 [...] stomatitis] 09-29-2023 Episodic Other aftercare (1 source) senior living (current) use of insulin; Translations: [HALF-WAY CURRENT USE OF INSULIN] Onset: 09-15-2022 Episodic Other aftercare (1 source) 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; Translations: [OTH HALF-WAY CURRENT DRUG THERAPY] Onset: 09-15-2022 Episodic Other [...] Interpretation Reference Range Facility CT chest wo conon 08-30-2023 CT chest wo con [facility] [place] [address] [place] [address] CT Scan Report Signed Patient: Christiane Perez MR#: [id number] 2 : 1975 Acct:[id number] Age/Sex: 48 / F ADM Date: 08/30/23 Loc: CT Room: Type: [facility] Attending Dr: Errol Nicole MD Copies [...] Johnson Jr., D.O.08/30/2023 3:21 PM Dictation Location: [place] [address] Transcribed By: [facility] 08/30/23 1521 Dictated By: Rodger Johnson Jr, DO 08/30/23 1517 Signed By: 08/30/23 1521 Normal [facility] Activated partial thrombopla stin time (aPTT) in platelet poor plasma by coagulation aOrdered By: Marilee Marcum on 08-06-2023 aPTT Coag (PPP) [Time] 32.3 s 25.1-36.5 [facility] Comment on above: A hematocrit value g reater than 55% may lead to inaccurate results in coagulation testing. Patients having hematocrit values >55% require a special collection tube for coagulation studies. Please contact the laboratory at [phone] for redraw instructions. B-Type Natriuretic Peptideon 08-06-2023 Natriuretic peptide B (Bld) [Mass/Vol] 29.0 pg/mL Normal 5-100 [facility] Comment on above: Result Comment: PERF ORMED BY: [place] [address] PATHOLOGIST IT ARCHITECT WAYNE WAKEFIELD M.D. Performed By: #### V ANCT #### [facility] [address] [place] [address] Basic Metabolic Panelon 07-17 Anion gap [Moles/Vol] 9.8 mmol/L Normal 6.0-15.0 [facility] Comment on above: Performed By: #### V ANCT #### [facility] [address] [place] [address] [place] Calcium [Mass/Vol] 8.6 mg/dL Normal 8.6-10.3 [facility] Comment on above: Performed By: #### V ANCT #### [facility] [address] [place] [id number] [place] Chloride [Moles/Vol] 106 mmol/L Normal 98-107 [facility] Comment on above: Performed By: #### V ANCT #### [facility] [address] [place] [address] [place] CO2 [Moles/Vol] 24.9 mmol/L Normal 21.0-31.0 [facility] Comment on above: Performed By: #### V ANCT #### [facility] [address] Creatinine [Mass/Vol] 0.72 mg/dL Normal 0.60-1.20 [facility] Comment on above: Performed By: #### V ANCT #### [facility] [address] [place] [address] [place] Creatinine Clr Calc Pharmacy 116.58 Normal [facility] Comment on above: Result Comment: PERF ORMED BY: [place] [address] PATHOLOGIST IT ARCHITECT WAYNE WAKEFIELD M.D. Performed By: #### V ANCT #### [place] [address] [place] GFR/1.73 sq M.predicted MDRD (S/P/Bld) [Vol rate/Area] mL/min/{1.73_m2} Normal [facility] Comment on above: Performed By: #### V ANCT #### [address] Glucose [Mass/Vol] 99 mg/dL Normal 70-100 [facility] Comment on above: Result Comment: [place] Glucose Reference Range is dependent on time and content of last meal. Glucose of more than 200 mg/dL in a nonstressed, ambulatory subject supports the diagnosis of Diabetes Mellitus. ADA recommended reference range Performed By: #### V ANCT #### [facility] [address] [place] [address] [place] Potassium [Moles/Vol] 3.7 mmol/L Normal 3.5-5.1 [facility] Comment on above: Performed By: #### V ANCT #### [place] [address] [place] Sodium [Moles/Vol] 137 mmol/L Normal 136-145 [facility] Comment on above: Performed By: #### V ANCT #### [facility] [address] Urea nitrogen [Mass/Vol] 8 mg/dL Normal 7-25 [facility] Comment on above: Performed By: #### V ANCT #### [facility] [address] Basophils Auto (Bld) [#/Vol] Ordered By: Marilee Marcum on 08-06-2023 Basophils (Bld) [#/Vol] 0.1 10*3/uL 0.0-0.2 [facility] Basophils/100 WBC Auto (Bld) Ordered By: Marilee Marcum on 08-06-2023 Basophils/100 WBC (Bld) 0.5 % . [facility] COVID CepheidOrdered By: Marielos Marcum on 08-06-2023 SARS-CoV-2 (COVID-19) Ab IA Ql Negative Negative [facility] Comment on above: This is a duplicate Cepheid Xpert Xpress CoV-2/Flu/RSV Plus RNA by RT-PCR result to be used for statistical tracking purpose only. SARS-CoV-2 (COVID-19) RNA SOILA+probe Ql (Unsp spec) [facility] COVID-19 / Flu A/B / RSV [...] or Cepheid Disclaimer revoked sooner. PERFORMED BY: [place] [address] PATHOLOGIST IT ARCHITECT WAYNE WAKEFIELD M.D. [facility] Comment on above: Performed By: #### V ANCT #### [address] Calcium [Mass/volume] in Ser um or PlasmaOrdered By: Marilee Marcum on 08-06-2023 Calcium [Mass/Vol] 8.6 mg/dL 8.6-10.3 [facility] Carbon dioxide, total [Moles /volume] in Serum or PlasmaOrdered By: Marilee Marcum on 08-06-2023 CO2 [Moles/Vol] 24.9 mmol/L 21.0-31.0 [facility] Cepheid COVID PCR Negativeon 08-06-2023 SARS-CoV-2 (COVID-19) RNA SOILA+probe Ql (Unsp spec) Negative Normal Negative [facility] Comment on above: Result Comment: This is a duplicate CepBacktrace I/Oid Xpert Xpress CoV-2/Flu/RSV Plus RNA by RT-PCR result to be used for statistical tracking purpose only. PERFORMED BY: [place] [address] PATHOLOGIST IT ARCHITECT WAYNE WAKEFIELD M.D. Performed By: #### V ANCT #### [address] Chloride [Moles/volume] in S kaitlin or PlasmaOrdered By: Marilee Marcum on 08-06-2023 Chloride [Moles/Vol] 106 mmol/L 98-107 [facility] Complete Blood Count Auto Di ffon 08-06-2023 Basophils (Bld) [#/Vol] 0.1 10*3/uL Normal 0.0-0.2 [facility] Comment on above: Result Comment: PERF ORMED BY: [place] [address] PATHOLOGIST IT ARCHITECT WAYNE WAKEFIELD M.D. Performed By: #### V ANCT #### [place] [address] [place] Basophils/100 WBC (Bld) 0.5 % Normal . [facility] Comment on above: Performed By: #### V ANCT #### [place] [address] [place] Eosinophils (Bld) [#/Vol] 0.1 10*3/uL Normal 0.0-0.45 [facility] Comment on above: Performed By: #### V ANCT #### [place] [address] [place] Eosinophils/100 WBC (Bld) 1.0 % Normal . [facility] Comment on above: Performed By: #### V ANCT #### [address] Erythrocyte distribution width (RBC) [Ratio] 16.7 % High 11.9-15.3 [facility] Comment on above: Performed By: #### V ANCT #### [address] Hematocrit (Bld) [Volume fraction] 45.8 % Normal 34.0-46.4 [facility] Comment on above: Performed By: #### V ANCT #### [address] Hemoglobin (Bld) [Mass/Vol] 15.4 g/dL Normal 11.8-15.4 [facility] Comment on above: Performed By: #### V ANCT #### [address] Lymphocytes (Bld) [#/Vol] 1.4 10*3/uL Normal 1.00-4.8 [facility] Comment on above: Performed By: #### V ANCT #### [address] Lymphocytes/100 WBC (Bld) 12.5 % Normal . [facility] Comment on above: Performed By: #### V ANCT #### [address] MCH (RBC) [Entitic mass] 32.9 pg Normal 24.7-34.3 [facility] Comment on above: Performed By: #### V ANCT #### [address] MCV (RBC) [Entitic vol] 97.6 fL Normal 80-100 [facility] Comment on above: Performed By: #### V ANCT #### [address] Mean Corpuscular HGB Conc 33.7 g/dL Normal 32.0-35.0 [facility] Comment on above: Performed By: #### V ANCT #### [address] Monocytes (Bld) [#/Vol] 0.8 10*3/uL Normal 0.0-0.8 [facility] Comment on above: Performed By: #### V ANCT #### [facility] [address] [place] [address] [place] Monocytes/100 WBC (Bld) 23.24 % High 0.00-20.00 [facility] Comment on above: Result Comment: For adults in ED, MDW > 20.0 may be associated with a higher risk of sepsis during the first 12 hrs of hospital admission Performed By: #### V ANCT #### [facility] [address] [place] [address] Monocytes/100 WBC (Bld) 7.7 % Normal . [facility] Comment on above: Performed By: #### V ANCT #### [address] Neutrophils (Bld) [#/Vol] 8.5 10*3/uL High 1.8-7.7 [facility] Comment on above: Performed By: #### V ANCT #### [place] [address] [place] Neutrophils/100 WBC (Bld) 78.3 % Normal . [facility] Comment on above: Performed By: #### V ANCT #### [place] [address] [place] NRBC% 0.1 /100{WBC} Normal 0-0.5 [facility] Comment on above: Performed By: #### V ANCT #### [place] [address] [place] Platelet mean volume (Bld) [Entitic vol] 7.3 fL Normal 6.3-10.7 [facility] Comment on above: Performed By: #### V ANCT #### [facility] [address] [place] [address] [place] Platelets (Bld) [#/Vol] 237 10*3/uL Normal 150-450 [facility] Comment on above: Performed By: #### V ANCT #### [facility] [address] [place] [address] [place] RBC (Bld) [#/Vol] 4.70 10*6/uL Normal 3.60-5.00 [facility] Comment on above: Performed By: #### V ANCT #### [facility] [address] [place] [address] [place] WBC (Bld) [#/Vol] 10.8 10*3/uL Normal 3.8-11.6 [facility] Comment on above: Performed By: #### V ANCT #### [facility] [address] Creatinine [Mass/volume] in Serum or PlasmaOrdered By: Marilee Mracum on 08-06-2023 Creatinine [Mass/Vol] 0.72 mg/dL 0.60-1.20 [facility] ECG 12 lead ECGon 08-06-2023 ECG 12 lead ECG [facility] [place] [address] [place] [address] Electrocardiograph Report Signed Patient: Christiane Perez MR#: [id number] 2 : 1975 Acct:[id number] Age/Sex: 48 / F ADM Date: 08/06/23 Loc: ER Room: Type: [facility] ER Attending Dr: Ordering Provider: Marilee [...] change was found Confirmed by CHAI [facility]ERS [facility] Graff ([id number]) on 08/08/2023 11:46:24 AM Referred By: Electronically Signed By:ROBIN ZUNIGA MD, FACC Transcribed By: MUS Signed By Mario Zuniga MD 08/08/23 1146 Normal [facility] Eosinophils Auto (Bld) [#/Vo l]Ordered By: Marilee Marcum on 08-06-2023 Eosinophils (Bld) [#/Vol] 0.1 10*3/uL 0.0-0.45 [facility] Eosinophils/100 WBC Auto (Bl d)Ordered By: Marilee Marcum on 08-06-2023 Eosinophils/100 WBC (Bld) 1.0 % . [facility] Erythrocyte distribution wid th Auto (RBC) [Ratio]Ordered By: Marilee Marcum on 08-06-2023 Erythrocyte distribution width (RBC) [Ratio] 16.7 % 11.9-15.3 [facility] Glucose [Mass/volume] in Ser um or PlasmaOrdered By: Marilee Marcum on 08-06-2023 Glucose [Mass/Vol] 99 mg/dL 70-100 [facility] Comment on above: ADA recommended refe rence rangeRandom Glucose Reference Range is dependent on time and content of last meal. Glucose of more than 200 mg/dL in a nonstressed, ambulatory subject supports the diagnosis of Diabetes Mellitus. Hematocrit Auto (Bld) [Volum e fraction]Ordered By: Marilee Marcum on 08-06-2023 Hematocrit (Bld) [Volume fraction] 45.8 % 34.0-46.4 [facility] Hemoglobin [Mass/volume] in BloodOrdered By: Marilee Marcum on 08-06-2023 Hemoglobin (Bld) [Mass/Vol] 15.4 g/dL 11.8-15.4 [facility] INR in Platelet poor plasma by Coagulation assayOrdered By: Marilee Marcum on 08-06-2023 INR Coag (PPP) [Relative time] 1.0 {INR} [facility] Comment on above: INR Therapeutic Rang [...] RBC Auto (Bld) [#/Vol] 10.8 10*3/uL 3.8-11.6 [facility] Lymphocytes Auto (Bld) [#/Vo l]Ordered By: Marilee Marcum on 08-06-2023 Lymphocytes (Bld) [#/Vol] 1.4 10*3/uL 1.00-4.8 [facility] Lymphocytes/100 WBC Auto (Bl d)Ordered By: Marilee Marcum on 08-06-2023 Lymphocytes/100 WBC (Bld) 12.5 % . [facility] MCH Auto (RBC) [Entitic mass ]Ordered By: Marilee Marcum on 08-06-2023 MCH (RBC) [Entitic mass] 32.9 pg 24.7-34.3 [facility] MCHC Auto (RBC) [Mass/Vol]Or dered By: Marilee Marcum on 08-06-2023 MCHC (RBC) [Mass/Vol] 33.7 g/dL 32.0-35.0 [facility] MCV Auto (RBC) [Entitic vol] Ordered By: Marilee Marcum on 08-06-2023 MCV (RBC) [Entitic vol] 97.6 fL 80-100 [facility] Monocyte distribution width [Entitic volume] in Blood by AutomatedOrdered By: Marilee Marcum on 08-06-2023 Monocyte distribution width Auto (Bld) [Entitic vol] 23.24 % 0.00-20.00 [facility] Comment on above: For adults in ED, MD W > 20.0 may be associated with a higher risk of sepsis during the first 12 hrs of hospital admission Monocytes Auto (Bld) [#/Vol] Ordered By: Marilee Marcum on 08-06-2023 Monocytes (Bld) [#/Vol] 0.8 10*3/uL 0.0-0.8 [facility] Monocytes/100 WBC Auto (Bld) Ordered By: Marilee Marcmu on 08-06-2023 Monocytes/100 WBC (Bld) 7.7 % . [facility] Natriuretic peptide B [Mass/ Vol]Ordered By: Marilee Marcum on 08-06-2023 Natriuretic peptide B (Bld) [Mass/Vol] 29.0 pg/mL 5-100 [facility] Neutrophils Auto (Bld) [#/Vo l]Ordered By: Marilee Marcum on 08-06-2023 Neutrophils (Bld) [#/Vol] 8.5 10*3/uL 1.8-7.7 [facility] Neutrophils/100 WBC Auto (Bl d)Ordered By: Marilee Marcum on 08-06-2023 Neutrophils/100 WBC (Bld) 78.3 % . [facility] No Panel InformationOrdered By: Marilee Marcum on 08-06-2023 Estimated GFR (CKD-EPI) > 60.0 mL/Min [facility] Creatinine Clearance (Chem 116.58 [facility] Nucleated erythrocytes [Pres ence] in Blood by Automated countOrdered By: Marilee Marcum on 08-06-2023 Nucleated RBC Auto Ql (Bld) 0.1 /100{WBC} 0-0.5 [facility] Partial Thromboplastin Timeo n 08-06-2023 aPTT Coag (Bld) [Time] 32.3 s Normal 25.1-36.5 [facility] Comment on above: Result Comment: A he matocrit value greater than 55% may lead to inaccurate results in coagulation testing. Patients having hematocrit values >55% require a special collection tube for coagulation studies. Please contact the laboratory at [phone] for redraw instructions. PERFORMED BY: [place] [address] PATHOLOGIST IT ARCHITECT WAYNE WAKEFIELD M.D. Performed By: #### V ANCT #### [facility] [address] [place] [address] Platelet mean volume Auto (B ld) [Entitic vol]Ordered By: Marilee Marcum on 08-06-2023 Platelet mean volume (Bld) [Entitic vol] 7.3 fL 6.3-10.7 [facility] Platelets Auto (Bld) [#/Vol] Ordered By: Marilee Marcum on 08-06-2023 Platelets (Bld) [#/Vol] 237 10*3/uL 150-450 [facility] Potassium [Moles/volume] in Serum or PlasmaOrdered By: Marilee Marcum on 08-06-2023 Potassium [Moles/Vol] 3.7 mmol/L 3.5-5.1 [facility] Prothrombin Time INRon 08-06 INR Coag (PPP) [Relative time] 1.0 {INR} Normal [facility] Comment on above: Result Comment: INR [...] 4.5 Performed By: #### V ANCT #### [facility] [address] PT Coag (PPP) [Time] 11.3 s Normal 9.0-12.9 [facility] Comment on above: Result Comment: A he matocrit value greater than 55% may lead to inaccurate results in coagulation testing. Patients having hematocrit values >55% require a special collection tube for coagulation studies. Please contact the laboratory at [phone] for redraw instructions. Performed By: #### V ANCT #### [facility] [address] [place] [id number] [facility] Prothrombin time (PT)Ordered By: Marilee Marcum on 08-06-2023 PT Coag (PPP) [Time] 11.3 s 9.0-12.9 [facility] Comment on above: A hematocrit value g reater than 55% may lead to inaccurate results in coagulation testing. Patients having hematocrit values >55% require a special collection tube for coagulation studies. Please contact the laboratory at [phone] for redraw instructions. RBC Auto (Bld) [#/Vol]Ordere d By: Marilee Marcum on 08-06-2023 RBC (Bld) [#/Vol] 4.70 10*6/uL 3.60-5.00 [facility] Serum or plasma anion gap de terminationOrdered By: Marilee Marcum on 08-06-2023 Anion gap [Moles/Vol] 9.8 mmol/L 6.0-15.0 [facility] Sodium [Moles/volume] in Ser um or PlasmaOrdered By: Marilee Marcum on 08-06-2023 Sodium [Moles/Vol] 137 mmol/L 136-145 [facility] Troponin I High Sensitivityo n 08-06-2023 Troponin I High Sensitivity 8.9 pg/mL Normal 0.0-15.0 [facility] Comment on above: Result Comment: PERF ORMED BY: [place] [address] PATHOLOGIST IT ARCHITECT WAYNE WAKEFIELD M.D. Performed By: #### V ANCT #### [address] Troponin I.cardiac [Mass/vol ume] in Serum or Plasma by Detection limit <= 0.01 ng/Ordered By: Marilee Marcum on 08-06-2023 Troponin I.cardiac DL <= 0.01 ng/mL [Mass/Vol] 8.9 pg/mL 0.0-15.0 [facility] Urea nitrogen [Mass/volume] in Serum or PlasmaOrdered By: Marilee Marcum on 08-06-2023 Urea nitrogen [Mass/Vol] 8 mg/dL 7-25 [facility] WBC Auto (Bld) [#/Vol]Ordere d By: Marilee Marcum on 08-06-2023 WBC (Bld) [#/Vol] 10.8 10*3/uL 3.8-11.6 [facility] XR chest 2V*on 08-06-2023 XR chest 2V* [facility] [address] [place] [address] XRay Report Signed Patient: Christiane Perez MR#: [id number] 2 : 1975 Acct:[id number] Age/Sex: 48 / F ADM Date: 08/06/23 Loc: ER Room: Type: [facility] ER Attending Dr: Copies to: Marilee Marcum [...] Giovanny Cleveland M.D.08/06/2023 8:42 PM Dictation Location: [place] [address] Transcribed By: [facility] 08/06/232041 Dictated By: Giovanny Cleveland DO 08/06/232038 Signed By: 08/06/232041 [facility] Basic Metabolic Panelon 12-0 Anion gap [Moles/Vol] 9.2 mmol/L Normal 6.0-15.0 [facility] Comment on above: Performed By: #### G LULS #### Point of Care testing , Calcium [Mass/Vol] 8.9 mg/dL Normal 8.6-10.3 [facility] Comment on above: Performed By: #### G LULS #### Point of Care testing , Chloride [Moles/Vol] 107 mmol/L Normal 98-107 [facility] Comment on above: Performed By: #### G LULS #### Point of Care testing , CO2 [Moles/Vol] 25.5 mmol/L Normal 21.0-31.0 [facility] Comment on above: Performed By: #### G LULS #### Point of Care testing , Creatinine [Mass/Vol] 0.70 mg/dL Normal 0.60-1.20 [facility] Comment on above: Performed By: #### G LULS #### Point of Care testing , Creatinine Clr Calc Pharmacy 119.81 [facility] Comment on above: Result Comment: PERF ORMED BY: [address] [place] [address] PATHOLOGIST IT ARCHITECT WAYNE WAKEFIELD M.D. Performed By: #### G LULS #### Point of Care testing , GFR/1.73 sq M.predicted MDRD (S/P/Bld) [Vol rate/Area] mL/min/{1.73_m2} Normal [facility] Comment on above: Performed By: #### G LULS #### Point of Care testing , Glucose [Mass/Vol] 50 mg/dL Low 70-100 [facility] Comment on above: Result Comment: [facility] Glucose Reference Range is dependent on time and content of last meal. Glucose of more than 200 mg/dL in a nonstressed, ambulatory subject supports the diagnosis of Diabetes Mellitus. ADA recommended reference range Performed By: #### G LULS #### Point of Care testing , Potassium [Moles/Vol] 3.7 mmol/L Normal 3.5-5.1 [facility] Comment on above: Performed By: #### G LULS #### Point of Care testing , Sodium [Moles/Vol] 138 mmol/L Normal 136-145 [facility] Comment on above: Performed By: #### G LULS #### Point of Care testing , Urea nitrogen [Mass/Vol] 10 mg/dL Normal 7-25 [facility] Comment on above: Performed By: #### G LULS #### Point of Care testing , Complete Blood Count Auto Di ffon 07-17-2023 Basophils (Bld) [#/Vol] 0.2 10*3/uL Normal 0.0-0.2 [facility] Comment on above: Result Comment: PERF ORMED BY: [facility] [address] [place] [address] PATHOLOGIST IT ARCHITECT WAYNE WAKEFIELD M.D. Performed By: #### G LULS #### Point of Care testing , Basophils/100 WBC (Bld) 1.1 % Normal . [facility] Comment on above: Performed By: #### G LULS #### Point of Care testing , Eosinophils (Bld) [#/Vol] 0.2 10*3/uL Normal 0.0-0.45 [facility] Comment on above: Performed By: #### G MARYLS #### Point of Care testing , Eosinophils/100 WBC (Bld) 1.2 % Normal . [facility] Comment on above: Performed By: #### G MARYLS #### Point of Care testing , Erythrocyte distribution width (RBC) [Ratio] 16.3 % High 11.9-15.3 [facility] Comment on above: Performed By: #### G MARYLS #### Point of Care testing , Hematocrit (Bld) [Volume fraction] 45.8 % Normal 34.0-46.4 [facility] Comment on above: Performed By: #### G MARYLS #### Point of Care testing , Hemoglobin (Bld) [Mass/Vol] 15.3 g/dL Normal 11.8-15.4 [facility] Comment on above: Performed By: #### G MARYLS #### Point of Care testing , Lymphocytes (Bld) [#/Vol] 4.4 10*3/uL Normal 1.00-4.8 [facility] Comment on above: Performed By: #### G MARYLS #### Point of Care testing , Lymphocytes/100 WBC (Bld) 32.3 % Normal . [facility] Comment on above: Performed By: #### G MARYLS #### Point of Care testing , MCH (RBC) [Entitic mass] 32.2 pg Normal 24.7-34.3 [facility] Comment on above: Performed By: #### G MARYLS #### Point of Care testing , MCV (RBC) [Entitic vol] 96.4 fL Normal 80-100 [facility] Comment on above: Performed By: #### G MARYLS #### Point of Care testing , Mean Corpuscular HGB Conc 33.4 g/dL Normal 32.0-35.0 [facility] Comment on above: Performed By: #### G MARYLS #### Point of Care testing , Monocytes (Bld) [#/Vol] 0.9 10*3/uL High 0.0-0.8 [facility] Comment on above: Performed By: #### G MARE #### Point of Care testing , Monocytes/100 WBC (Bld) 17.19 % Normal 0.00-20.00 [facility] Comment on above: Performed By: #### G MARE #### Point of Care testing , Monocytes/100 WBC (Bld) 6.8 % Normal . [facility] Comment on above: Performed By: #### G MARE #### Point of Care testing , Neutrophils (Bld) [#/Vol] 8.0 10*3/uL High 1.8-7.7 [facility] Comment on above: Performed By: #### G MARYLS #### Point of Care testing , Neutrophils/100 WBC (Bld) 58.6 % Normal . [facility] Comment on above: Performed By: #### G MARE #### Point of Care testing , NRBC% 0.1 /100{WBC} Normal 0-0.5 [facility] Comment on above: Performed By: #### Sophia GARVEY #### Point of Care testing , Platelet mean volume (Bld) [Entitic vol] 6.9 fL Normal 6.3-10.7 [facility] Comment on above: Performed By: #### Sophia GARVEY #### Point of Care testing , Platelets (Bld) [#/Vol] 414 10*3/uL Normal 150-450 [facility] Comment on above: Performed By: #### G MARE #### Point of Care testing , RBC (Bld) [#/Vol] 4.75 10*6/uL Normal 3.60-5.00 [facility] Comment on above: Performed By: #### G MARE #### Point of Care testing , WBC (Bld) [#/Vol] 13.6 10*3/uL High 3.8-11.6 [facility] Comment on above: Performed By: #### G MARYLS #### Point of Care testing , XR chest 1V portableon 07-17 XR chest 1V portable [facility] [place] [address] XRay Report Signed Patient: Christiane Perez MR#: [id number] 2 : 1975 Acct:[id number] Age/Sex: 48 / F ADM Date: 07/16/23 Loc: ER Room: Type: [facility] ER Attending Dr: Copies to: Yasmin [...] Shireen Caruso M.D.07/17/2023 8:50 AM Dictation Location: [place] [address] Transcribed By: CHARLI 07/17/23 0850 Dictated By: Shireen Caruso MD 07/17/23 0849 Signed By: 07/17/23 0850 Normal [facility] Basophils Auto (Bld) [#/Vol] Ordered By: Yasmin Leung on 07-16-2023 Basophils (Bld) [#/Vol] 0.2 10*3/uL 0.0-0.2 [facility] Basophils/100 WBC Auto (Bld) Ordered By: Yasmin Leung on 07-16-2023 Basophils/100 WBC (Bld) 1.1 % . [facility] Calcium [Mass/volume] in Ser um or PlasmaOrdered By: Yasmin Leung on 07-16-2023 Calcium [Mass/Vol] 8.9 mg/dL 8.6-10.3 [facility] Carbon dioxide, total [Moles /volume] in Serum or PlasmaOrdered By: Yasmin Leung on 07-16-2023 CO2 [Moles/Vol] 25.5 mmol/L 21.0-31.0 [facility] Chloride [Moles/volume] in S kaitlin or PlasmaOrdered By: Yasmin Leung on 07-16-2023 Chloride [Moles/Vol] 107 mmol/L 98-107 [facility] Creatinine [Mass/volume] in Serum or PlasmaOrdered By: Yasmin Leung on 07-16-2023 Creatinine [Mass/Vol] 0.70 mg/dL 0.60-1.20 [facility] ECG 12 lead ECGon 07-16-2023 ECG 12 lead ECG [facility] [place] [address] Electrocardiograph Report Signed Patient: Christiane Perez MR#: [id number] 2 : 1975 Acct:[id number] Age/Sex: 48 / F ADM Date: 07/16/23 Loc: ER Room: Type: [facility] ER Attending Dr: Ordering Provider: Yasmin Leung [...] By Yasmin Leung MD 07/17/23 0119 Normal [facility] Eosinophils Auto (Bld) [#/Vo l]Ordered By: Yasmin Leung on 07-16-2023 Eosinophils (Bld) [#/Vol] 0.2 10*3/uL 0.0-0.45 [facility] Eosinophils/100 WBC Auto (Bl d)Ordered By: Yasmin Leung on 07-16-2023 Eosinophils/100 WBC (Bld) 1.2 % . [facility] Erythrocyte distribution wid th Auto (RBC) [Ratio]Ordered By: Yasmin Leung on 07-16-2023 Erythrocyte distribution width (RBC) [Ratio] 16.3 % 11.9-15.3 [facility] Glucose [Mass/volume] in Ser um or PlasmaOrdered By: Yasmin Leung on 07-16-2023 Glucose [Mass/Vol] 50 mg/dL 70-100 [facility] Comment on above: ADA recommended refe rence rangeRandom Glucose Reference Range is dependent on time and content of last meal. Glucose of more than 200 mg/dL in a nonstressed, ambulatory subject supports the diagnosis of Diabetes Mellitus. Hematocrit Auto (Bld) [Volum e fraction]Ordered By: Yasmin Leung on 07-16-2023 Hematocrit (Bld) [Volume fraction] 45.8 % 34.0-46.4 [facility] Hemoglobin [Mass/volume] in BloodOrdered By: Yasmin Leung on 07-16-2023 Hemoglobin (Bld) [Mass/Vol] 15.3 g/dL 11.8-15.4 [facility] Leukocytes [#/volume] correc billy for nucleated erythrocytes in Blood by Automated counOrdered By: Yasmin Leung on 07-16-2023 WBC corrected for nucl RBC Auto (Bld) [#/Vol] 13.6 10*3/uL 3.8-11.6 [facility] Lymphocytes Auto (Bld) [#/Vo l]Ordered By: Yasmin Leung on 07-16-2023 Lymphocytes (Bld) [#/Vol] 4.4 10*3/uL 1.00-4.8 [facility] Lymphocytes/100 WBC Auto (Bl d)Ordered By: Yasmin Leung on 07-16-2023 Lymphocytes/100 WBC (Bld) 32.3 % . [facility] MCH Auto (RBC) [Entitic mass ]Ordered By: Yasmin Leung on 07-16-2023 MCH (RBC) [Entitic mass] 32.2 pg 24.7-34.3 [facility] MCHC Auto (RBC) [Mass/Vol]Or dered By: Yasmin Leung on 07-16-2023 MCHC (RBC) [Mass/Vol] 33.4 g/dL 32.0-35.0 [facility] MCV Auto (RBC) [Entitic vol] Ordered By: Yasmin Leung on 07-16-2023 MCV (RBC) [Entitic vol] 96.4 fL 80-100 [facility] Monocyte distribution width [Entitic volume] in Blood by AutomatedOrdered By: Yasmin Leung on 07-16-2023 Monocyte distribution width Auto (Bld) [Entitic vol] 17.19 % 0.00-20.00 [facility] Monocytes Auto (Bld) [#/Vol] Ordered By: Yasmin Leung on 07-16-2023 Monocytes (Bld) [#/Vol] 0.9 10*3/uL 0.0-0.8 [facility] Monocytes/100 WBC Auto (Bld) Ordered By: Yasmin Leung on 07-16-2023 Monocytes/100 WBC (Bld) 6.8 % . [facility] Neutrophils Auto (Bld) [#/Vo l]Ordered By: Yasmin Leung on 07-16-2023 Neutrophils (Bld) [#/Vol] 8.0 10*3/uL 1.8-7.7 [facility] Neutrophils/100 WBC Auto (Bl d)Ordered By: Yasmin Leung on 07-16-2023 Neutrophils/100 WBC (Bld) 58.6 % . [facility] No Panel InformationOrdered By: Yasmin Leung on 07-16-2023 Estimated GFR (CKD-EPI) > 60.0 mL/Min [facility] Creatinine Clearance (Chem 119.81 [facility] Nucleated erythrocytes [Pres ence] in Blood by Automated countOrdered By: Yasmin Leung on 07-16-2023 Nucleated RBC Auto Ql (Bld) 0.1 /100{WBC} 0-0.5 [facility] Platelet mean volume Auto (B ld) [Entitic vol]Ordered By: Yasmin Leung on 07-16-2023 Platelet mean volume (Bld) [Entitic vol] 6.9 fL 6.3-10.7 [facility] Platelets Auto (Bld) [#/Vol] Ordered By: Yasmin Leung on 07-16-2023 Platelets (Bld) [#/Vol] 414 10*3/uL 150-450 [facility] Potassium [Moles/volume] in Serum or PlasmaOrdered By: Yasmin Leung on 07-16-2023 Potassium [Moles/Vol] 3.7 mmol/L 3.5-5.1 [facility] RBC Auto (Bld) [#/Vol]Ordere d By: Yasmin Leung on 07-16-2023 RBC (Bld) [#/Vol] 4.75 10*6/uL 3.60-5.00 [facility] Serum or plasma anion gap de terminationOrdered By: Yasmin Leung on 07-16-2023 Anion gap [Moles/Vol] 9.2 mmol/L 6.0-15.0 [facility] Sodium [Moles/volume] in Ser um or PlasmaOrdered By: Yasmin Leung on 07-16-2023 Sodium [Moles/Vol] 138 mmol/L 136-145 [facility] Urea nitrogen [Mass/volume] in Serum or PlasmaOrdered By: Yasmin Leung on 07-16-2023 Urea nitrogen [Mass/Vol] 10 mg/dL 7-25 [facility] WBC Auto (Bld) [#/Vol]Ordere d By: Yasmin Leung on 07-16-2023 WBC (Bld) [#/Vol] 13.6 10*3/uL 3.8-11.6 [facility] COVID CepheidOrdered By: Antonio Villeda on 07-05-2023 SARS-CoV-2 (COVID-19) Ab IA Ql Negative Negative [facility] Comment on above: This is a duplicate Cepheid Xpert Xpress CoV-2/Flu/RSV Plus RNA by RT-PCR result to be used for statistical tracking purpose only. SARS-CoV-2 (COVID-19) RNA SOILA+probe Ql (Unsp spec) [facility] COVID-19 / Flu A/B / RSV [...] or Cepheid Disclaimer revoked sooner. PERFORMED BY: [facility] [address] [place] [address] PATHOLOGIST IT ARCHITECT WAYNE WAKEFIELD M.D. Normal [facility] Comment on above: Performed By: #### G LULS #### Point of Care testing , Cepheid COVID PCR Negativeon 07-05-2023 SARS-CoV-2 (COVID-19) RNA SOILA+probe Ql (Unsp spec) Negative Normal Negative [facility] Comment on above: Result Comment: This is a duplicate Cepheid Xpert Xpress CoV-2/Flu/RSV Plus RNA by RT-PCR result to be used for statistical tracking purpose only. PERFORMED BY: [facility] [address] [place] [address] PATHOLOGIST IT ARCHITECT WAYNE WAKEFIELD M.D. Performed By: #### G LULS #### Point of Care testing , XR chest 2V*on 07-05-2023 XR chest 2V* [facility] [address] [place] [address] [place] [address] XRay Report Signed Patient: Christiane Perez MR#: [id number] 2 : 1975 Acct:[id number] Age/Sex: 48 / F ADM Date: 07/05/23 Loc: ER Room: Type: [facility] ER Attending Dr: Copies to: Elio Villeda [...] Giovanny Cleveland M.D.07/05/2023 2:41 PM Dictation Location: [place] [address] Transcribed By: [facility] 07/05/23 1441 Dictated By: Giovanny Cleveland DO 07/05/23 1437 Signed By: 07/05/23 1441 Normal [facility] Quick Strepon 06-20-2023 S. pyogenes Org specific cx Ql (Throat) Negative [employer] Other Quick Strep [facility] [employer] Other CT chest wo conon 04-09-2023 CT chest wo con [facility] [address] [place] [address] [place] [address] Scan Report Signed Patient: Christiane Perez MR#: [id number] 2 : 1975 Acct:[id number] Age/Sex: 48 / F ADM Date: 04/09/23 Loc: [facility] Room: Type: [facility] Attending Dr: Valeriano Horta MD Copies to: Valeriano Horta MD Ordering Provider: Valeriano Horta MD Date of Service: 04/09/23 CT/CT chest [...] MRI. Impression dictated by: Rodger Johnson Jr., D.OJosue04/09/2023 3:00 PM Dictation Location: [place] [address] Transcribed By: [facility] 04/09/23 1500 Dictated By: Rodger Johnson Jr, DO 04/09/23 1453 Signed By: 04/09/23 1500 Normal [facility] SURGICAL PATHOLOGY REFERENCE LAB CONSULTon 03-19-2023 CASE REPORT Normal [facility] Comment on above: Order Comment: Speci men Type: SLIDE Ordering Facility: [facility] Address: [address] [place] [phone] Result Comment: [facility]urg [facility] Pathology Report Case: [id number] Authorizing Provider: Gregory Aranda MD Collected: 03/19/2023 09:16 AM Ordering Location: [facility] Main Received: 03/19/2023 09:14 AM Pathologist: Mando Gar MD Specimen: SLIDE(S), 8 SLIDES [id number] Performed By: #### L [id number] #### [facility] CLIA [id number] [facility] [address] CLINICAL HISTORY CONSULT REQUESTED [facility] Comment on above: Order Comment: Speci men Type: SLIDE Ordering Facility: [facility] Address: [address] [place] [phone] Performed By: #### L [id number] #### [facility] CLIA [id number] [address] [place] [address] DIAGNOSIS COMMENT Normal [facility] Comment on above: Order Comment: Speci men Type: SLIDE Ordering Facility: [facility] Address: [address] [place] [phone] Result Comment: Than k you for sharing [...] available, is recommended. Performed By: #### L [id number] #### [facility] CLIA [id number] [address] [place] [address] [place] FINAL DIAGNOSIS Normal [facility] Comment on above: Order Comment: Speci tee Type: SLIDE Ordering Facility: [facility] Address: [address] [place] [phone] Result Comment: Lung , left upper lobe, transbronchial biopsy (S [id number], A1; 03/11/2023): -Organizing acute lung injury with fibrin and acute inflammation Performed By: #### L [id number] #### [facility] CLIA [id number] [address] [place] [address] [place] FINAL PERFORMING LAB Normal [facility] Comment on above: Order Comment: Speci tee Type: SLIDE Ordering Facility: [facility] Address: [address] [place], [place] [phone] Result Comment: Diag nostic interpretation performed at [facility], [address] [place] [address] CLIA# [id number] User Experience Architect: Don Meehan M.D. Performed By: #### L [id number] #### [facility] CLIA [id number] [address] [place] [address] [place] XR chest 1V portableon 03-17 XR chest 1V portable [facility] [address] [address] XRay Report Signed Patient: Christiane Perez MR#: [id number] 2 : 1975 Acct:[id number] Age/Sex: 48 / F ADM Date: 03/10/23 Loc: 3T Room: [address] [place] [address] Type: DIS IN Attending Dr: Krunal Kelly [...] BIOPSY. Impression dictated by: Rodger Johnson Jr., D.O.03/17/2023 10:12 AM Dictation Location: [place] [address] Transcribed By: [facility] 03/17/23 1012 Dictated By: Rodger Johnson Jr, DO 03/17/23 1012 Signed By: 03/17/23 1012 Normal [facility] A1C with Estimated Average G shilpi 03-14-2023 Glucose [Mass/Vol] 171 mg/dL Normal [facility] Comment on above: Result Comment: PERF ORMED BY: [facility] [address] [place] [address] PATHOLOGIST IT ARCHITECT WAYNE WAKEFIELD M.D. Performed By: #### G LULS #### Point of Care testing , HbA1c (Bld) [Mass fraction] 7.6 % High 4.3-5.6 [facility] Comment on above: Result Comment: Incr eased risk for diabetes: 5.7 - 6.4 diabetes: >6.4 glycemic control for adults with diabetes: <7.0 Performed By: #### G LULS #### Point of Care testing , Alanine aminotransferase [En zymatic activity/volume] in Serum or PlasmaOrdered By: Krunal Kelly on 03-14-2023 ALT [Catalytic activity/Vol] 5 U/L 7-52 [facility] Albumin [Mass/volume] in Ser um or Plasma by Bromocresol green (BCG) dye binding methoOrdered By: Krunal Kelly on 03-14-2023 Albumin BCG dye [Mass/Vol] 2.9 g/dL 3.5-5.7 [facility] Alkaline phosphatase [Enzyma tic activity/volume] in Serum or PlasmaOrdered By: Krunal Kelly on 03-14-2023 ALP [Catalytic activity/Vol] 94 U/L 34-104 [facility] Aspartate aminotransferase [ Enzymatic activity/volume] in Serum or PlasmaOrdered By: Krunal Kelly on 03-14-2023 AST [Catalytic activity/Vol] 8 U/L 13-39 [facility] Basophils Auto (Bld) [#/Vol] Ordered By: Eron Wood on 03-14-2023 Basophils (Bld) [#/Vol] 0.1 10*3/uL 0.0-0.2 [facility] Basophils/100 WBC Auto (Bld) Ordered By: Eron Wood on 03-14-2023 Basophils/100 WBC (Bld) 0.7 % . [facility] Bilirubin.total [Mass/volume ] in Serum or PlasmaOrdered By: Krunal Kelly on 03-14-2023 Bilirubin [Mass/Vol] 0.7 mg/dL 0.3-1.0 [facility] Calcium [Mass/volume] in Ser um or PlasmaOrdered By: Krunal Kelly on 03-14-2023 Calcium [Mass/Vol] 8.3 mg/dL 8.6-10.3 [facility] Carbon dioxide, total [Moles /volume] in Serum or PlasmaOrdered By: Krunal Kelly on 03-14-2023 CO2 [Moles/Vol] 24.8 mmol/L 21.0-31.0 [facility] Chloride [Moles/volume] in S kaitlin or PlasmaOrdered By: Krunal Kelly on 03-14-2023 Chloride [Moles/Vol] 108 mmol/L 98-107 [facility] Complete Blood Count Auto Di ffon 03-14-2023 Basophils (Bld) [#/Vol] 0.1 10*3/uL Normal 0.0-0.2 [facility] Comment on above: Result Comment: PERF ORMED BY: [place] [address] PATHOLOGIST IT ARCHITECT WAYNE WAKEFIELD M.D. Performed By: #### V ANCT #### [address] Basophils/100 WBC (Bld) 0.7 % Normal . [facility] Comment on above: Performed By: #### V ANCT #### [address] Eosinophils (Bld) [#/Vol] 0.4 10*3/uL Normal 0.0-0.45 [facility] Comment on above: Performed By: #### V ANCT #### [address] Eosinophils/100 WBC (Bld) 4.4 % Normal . [facility] Comment on above: Performed By: #### V ANCT #### [address] Erythrocyte distribution width (RBC) [Ratio] 15.5 % High 11.9-15.3 [facility] Comment on above: Performed By: #### V ANCT #### [address] Hematocrit (Bld) [Volume fraction] 35.1 % Normal 34.0-46.4 [facility] Comment on above: Performed By: #### V ANCT #### [place] [address] [place] Hemoglobin (Bld) [Mass/Vol] 12.0 g/dL Normal 11.8-15.4 [facility] Comment on above: Performed By: #### V ANCT #### [place] [address] [place] Lymphocytes (Bld) [#/Vol] 1.6 10*3/uL Normal 1.00-4.8 [facility] Comment on above: Performed By: #### V ANCT #### [address] Lymphocytes/100 WBC (Bld) 16.8 % Normal . [facility] Comment on above: Performed By: #### V ANCT #### [address] MCH (RBC) [Entitic mass] 32.8 pg Normal 24.7-34.3 [facility] Comment on above: Performed By: #### V ANCT #### [address] MCV (RBC) [Entitic vol] 96.4 fL Normal 80-100 [facility] Comment on above: Performed By: #### V ANCT #### [address] Mean Corpuscular HGB Conc 34.1 g/dL Normal 32.0-35.0 [facility] Comment on above: Performed By: #### V ANCT #### [address] Monocytes (Bld) [#/Vol] 0.7 10*3/uL Normal 0.0-0.8 [facility] Comment on above: Performed By: #### V ANCT #### [address] Monocytes/100 WBC (Bld) 7.1 % Normal . [facility] Comment on above: Performed By: #### V ANCT #### [address] Neutrophils (Bld) [#/Vol] 6.8 10*3/uL Normal 1.8-7.7 [facility] Comment on above: Performed By: #### V ANCT #### [address] Neutrophils/100 WBC (Bld) 71.0 % Normal . [facility] Comment on above: Performed By: #### V ANCT #### [place] [address] [place] NRBC% 0.1 /100{WBC} Normal 0-0.5 [facility] Comment on above: Performed By: #### V ANCT #### [address] Platelet mean volume (Bld) [Entitic vol] 6.2 fL Low 6.3-10.7 [facility] Comment on above: Performed By: #### V ANCT #### [address] Platelets (Bld) [#/Vol] 424 10*3/uL Normal 150-450 [facility] Comment on above: Performed By: #### V ANCT #### [address] RBC (Bld) [#/Vol] 3.65 10*6/uL Normal 3.60-5.00 [facility] Comment on above: Performed By: #### V ANCT #### [address] WBC (Bld) [#/Vol] 9.6 10*3/uL Normal 3.8-11.6 [facility] Comment on above: Performed By: #### Irena ANCT #### [address] Comprehensive Metabolic Pane moose 03-14-2023 Albumin [Mass/Vol] 2.9 g/dL Low 3.5-5.7 [facility] Comment on above: Performed By: #### G LUAUGUSTIN #### Point of Care testing , Albumin/Globulin [Mass ratio] 0.8 {ratio} Normal [facility] Comment on above: Performed By: #### G MARE #### Point of Care testing , ALP [Catalytic activity/Vol] 94 U/L Normal 34-104 [facility] Comment on above: Performed By: #### G MARYLS #### Point of Care testing , ALT [Catalytic activity/Vol] 5 U/L Low 7-52 [facility] Comment on above: Performed By: #### G LULS #### Point of Care testing , Anion gap [Moles/Vol] 8.9 mmol/L Normal 6.0-15.0 [facility] Comment on above: Performed By: #### G MARYLS #### Point of Care testing , AST [Catalytic activity/Vol] 8 U/L Low 13-39 [facility] Comment on above: Performed By: #### G MARYLS #### Point of Care testing , Bilirubin [Mass/Vol] 0.7 mg/dL Normal 0.3-1.0 [facility] Comment on above: Performed By: #### G MARYLS #### Point of Care testing , Calcium [Mass/Vol] 8.3 mg/dL Low 8.6-10.3 [facility] Comment on above: Performed By: #### G MARYLS #### Point of Care testing , Chloride [Moles/Vol] 108 mmol/L High 98-107 [facility] Comment on above: Performed By: #### G MARYLS #### Point of Care testing , CO2 [Moles/Vol] 24.8 mmol/L Normal 21.0-31.0 [facility] Comment on above: Performed By: #### G MARYLS #### Point of Care testing , Creatinine [Mass/Vol] 0.68 mg/dL Normal 0.60-1.20 [facility] Comment on above: Performed By: #### G MARYLS #### Point of Care testing , Creatinine Clr Calc Pharmacy 119.15 [facility] Comment on above: Result Comment: PERF ORMED BY: [facility] [address] [place] [address] PATHOLOGIST IT ARCHITECT WAYNE WAKEFIELD M.D. Performed By: #### G MARYLS #### Point of Care testing , GFR/1.73 sq M.predicted MDRD (S/P/Bld) [Vol rate/Area] mL/min/{1.73_m2} [facility] Comment on above: Performed By: #### G MARYLS #### Point of Care testing , Globulin (S) [Mass/Vol] 3.7 g/dL [facility] Comment on above: Performed By: #### G LULS #### Point of Care testing , Glucose [Mass/Vol] 86 mg/dL Normal 70-100 [facility] Comment on above: Result Comment: [place] Glucose Reference Range is dependent on time and content of last meal. Glucose of more than 200 mg/dL in a nonstressed, ambulatory subject supports the diagnosis of Diabetes Mellitus. ADA recommended reference range Performed By: #### G LULS #### Point of Care testing , Potassium [Moles/Vol] 3.7 mmol/L Normal 3.5-5.1 [facility] Comment on above: Performed By: #### G LULS #### Point of Care testing , Protein [Mass/Vol] 6.6 g/dL Normal 6.4-8.9 [facility] Comment on above: Performed By: #### G LULS #### Point of Care testing , Sodium [Moles/Vol] 138 mmol/L Normal 136-145 [facility] Comment on above: Performed By: #### G LULS #### Point of Care testing , Urea nitrogen [Mass/Vol] 6 mg/dL Low 7-25 [facility] Comment on above: Performed By: #### G LULS #### Point of Care testing , Creatinine [Mass/volume] in Serum or PlasmaOrdered By: Krunal Kelly on 03-14-2023 Creatinine [Mass/Vol] 0.68 mg/dL 0.60-1.20 [facility] Eosinophils Auto (Bld) [#/Vo l]Ordered By: Eron Wood on 03-14-2023 Eosinophils (Bld) [#/Vol] 0.4 10*3/uL 0.0-0.45 [facility] Eosinophils/100 WBC Auto (Bl d)Ordered By: Eron Wood on 03-14-2023 Eosinophils/100 WBC (Bld) 4.4 % . [facility] Erythrocyte distribution wid th Auto (RBC) [Ratio]Ordered By: Eron Wood on 03-14-2023 Erythrocyte distribution width (RBC) [Ratio] 15.5 % 11.9-15.3 [facility] Globulin Calc (S) [Mass/Vol] Ordered By: Krunal Kelly on 03-14-2023 Globulin (S) [Mass/Vol] 3.7 g/dL [facility] Glucose Glucometer (BldC) [M ass/Vol]Ordered By: Krunal Kelly on 03-14-2023 Glucose [Mass/Vol] 249 mg/dL [facility] Comment on above: Random Glucose Refer ence Range is dependent on time and content of last meal. Glucose of more than 200 mg/dL in a nonstressed, ambulatory subject supports the diagnosis of Diabetes Mellitus. Glucose Poct Glucometerson 0 03-14-2023 Glucose [Mass/Vol] 249 mg/dL Normal [facility] Comment on above: Result Comment: [place] om Glucose Reference Range is dependent on time and content of last meal. Glucose of more than 200 mg/dL in a nonstressed, ambulatory subject supports the diagnosis of Diabetes Mellitus. PERFORMED BY: [facility] [address] [address] PATHOLOGIST IT ARCHITECT WAYNE WAKEFIELD M.D. Performed By: #### G LULS #### Point of Care testing , Commemt1 Glu2: Cleaned Meter Normal [facility] Comment on above: Result Comment: PERF ORMED BY: [facility] [address] [place] [address] PATHOLOGIST IT ARCHITECT WAYNE WAKEFIELD M.D. Performed By: #### G LULS #### Point of Care testing , Glucose [Mass/Vol] 95 mg/dL Normal [facility] Comment on above: Result Comment: [place] om Glucose Reference Range is dependent on time and content of last meal. Glucose of more than 200 mg/dL in a nonstressed, ambulatory subject supports the diagnosis of Diabetes Mellitus. Performed By: #### G LULS #### Point of Care testing , Glucose [Mass/volume] in Ser um or PlasmaOrdered By: Krunal Kelly on 03-14-2023 Glucose [Mass/Vol] 86 mg/dL 70-100 [facility] Comment on above: ADA recommended refe [...] from glycated hemoglobin (Bld) [Mass/Vol] 171 mg/dL [facility] Hematocrit Auto (Bld) [Volum e fraction]Ordered By: Eron Wood on 03-14-2023 Hematocrit (Bld) [Volume fraction] 35.1 % 34.0-46.4 [facility] Hemoglobin A1c percentageOrd ered By: Krunal Kelly on 03-14-2023 HbA1c (Bld) [Mass fraction] 7.6 % 4.3-5.6 [facility] Comment on above: Increased risk for d iabetes: 5.7 - 6.4diabetes: >6.4glycemic control for adults with diabetes: <7.0 Hemoglobin [Mass/volume] in BloodOrdered By: Eron Wood on 03-14-2023 Hemoglobin (Bld) [Mass/Vol] 12.0 g/dL 11.8-15.4 [facility] Leukocytes [#/volume] correc billy for nucleated erythrocytes in Blood by Automated counOrdered By: Eron Wood on 03-14-2023 WBC corrected for nucl RBC Auto (Bld) [#/Vol] 9.6 10*3/uL 3.8-11.6 [facility] Lymphocytes Auto (Bld) [#/Vo l]Ordered By: Eron Wood on 03-14-2023 Lymphocytes (Bld) [#/Vol] 1.6 10*3/uL 1.00-4.8 [facility] Lymphocytes/100 WBC Auto (Bl d)Ordered By: Eron Wood on 03-14-2023 Lymphocytes/100 WBC (Bld) 16.8 % . [facility] MCH Auto (RBC) [Entitic mass ]Ordered By: Eron Wood on 03-14-2023 MCH (RBC) [Entitic mass] 32.8 pg 24.7-34.3 [facility] MCHC Auto (RBC) [Mass/Vol]Or dered By: Eron Wood on 03-14-2023 MCHC (RBC) [Mass/Vol] 34.1 g/dL 32.0-35.0 [facility] MCV Auto (RBC) [Entitic vol] Ordered By: Eron Wood on 03-14-2023 MCV (RBC) [Entitic vol] 96.4 fL 80-100 [facility] Monocytes Auto (Bld) [#/Vol] Ordered By: Eron Wood on 03-14-2023 Monocytes (Bld) [#/Vol] 0.7 10*3/uL 0.0-0.8 [facility] Monocytes/100 WBC Auto (Bld) Ordered By: Eron Wood on 03-14-2023 Monocytes/100 WBC (Bld) 7.1 % . [facility] Neutrophils Auto (Bld) [#/Vo l]Ordered By: Eron Wood on 03-14-2023 Neutrophils (Bld) [#/Vol] 6.8 10*3/uL 1.8-7.7 [facility] Neutrophils/100 WBC Auto (Bl d)Ordered By: Eron Wood on 03-14-2023 Neutrophils/100 WBC (Bld) 71.0 % . [facility] No Panel InformationOrdered By: Krunal Kelly on 03-14-2023 Bedside Glucose Comment Glu2: cleaned meter [facility] Estimated GFR (CKD-EPI) > 60.0 mL/Min [facility] Pharmacy Creatinine Clearance (Chem 119.15 [facility] Nucleated erythrocytes [Pres ence] in Blood by Automated countOrdered By: Eron Wood on 03-14-2023 Nucleated RBC Auto Ql (Bld) 0.1 /100{WBC} 0-0.5 [facility] Platelet mean volume Auto (B ld) [Entitic vol]Ordered By: Eron Wood on 03-14-2023 Platelet mean volume (Bld) [Entitic vol] 6.2 fL 6.3-10.7 [facility] Platelets Auto (Bld) [#/Vol] Ordered By: Eron Wood on 03-14-2023 Platelets (Bld) [#/Vol] 424 10*3/uL 150-450 [facility] Potassium [Moles/volume] in Serum or PlasmaOrdered By: Krunal Kelly on 03-14-2023 Potassium [Moles/Vol] 3.7 mmol/L 3.5-5.1 [facility] Protein [Mass/volume] in Ser um or PlasmaOrdered By: Krunal Kelly on 03-14-2023 Protein [Mass/Vol] 6.6 g/dL 6.4-8.9 [facility] RBC Auto (Bld) [#/Vol]Ordere d By: Eron Wood on 03-14-2023 RBC (Bld) [#/Vol] 3.65 10*6/uL 3.60-5.00 [facility] Serum or plasma albumin/glob ulin mass ratioOrdered By: Krunal Kelly on 03-14-2023 Albumin/Globulin [Mass ratio] 0.8 {ratio} [facility] Serum or plasma anion gap de terminationOrdered By: Krunal Kelly on 03-14-2023 Anion gap [Moles/Vol] 8.9 mmol/L 6.0-15.0 [facility] Sodium [Moles/volume] in Ser um or PlasmaOrdered By: Krunal Kelly on 03-14-2023 Sodium [Moles/Vol] 138 mmol/L 136-145 [facility] Urea nitrogen [Mass/volume] in Serum or PlasmaOrdered By: Krunal Kelly on 03-14-2023 Urea nitrogen [Mass/Vol] 6 mg/dL 7-25 [facility] WBC Auto (Bld) [#/Vol]Ordere d By: Eron Wood on 03-14-2023 WBC (Bld) [#/Vol] 9.6 10*3/uL 3.8-11.6 [facility] Basic Metabolic Panelon 02-14 Anion gap [Moles/Vol] 8.9 mmol/L Normal 6.0-15.0 [facility] Comment on above: Performed By: #### C BC, BMP, MG #### [facility] [address] Calcium [Mass/Vol] 8.4 mg/dL Low 8.6-10.3 [facility] Comment on above: Performed By: #### C BC, BMP, MG #### [facility] [address] Chloride [Moles/Vol] 109 mmol/L High 98-107 [facility] Comment on above: Performed By: #### C BC, BMP, MG #### [facility] [address] CO2 [Moles/Vol] 24.9 mmol/L Normal 21.0-31.0 [facility] Comment on above: Performed By: #### C BC, BMP, MG #### [address] Creatinine [Mass/Vol] 0.61 mg/dL Normal 0.60-1.20 [facility] Comment on above: Performed By: #### C BC, BMP, MG #### [place] [address] [place] Creatinine Clr Calc Pharmacy 132.97 [facility] Comment on above: Result Comment: PERF ORMED BY: [place] [address] PATHOLOGIST IT ARCHITECT WAYNE WAKEFIELD M.D. Performed By: #### C BC, BMP, MG #### [place] [address] [place] GFR/1.73 sq M.predicted MDRD (S/P/Bld) [Vol rate/Area] mL/min/{1.73_m2} [facility] Comment on above: Performed By: #### C BC, BMP, MG #### [place] [address] [place] Glucose [Mass/Vol] 97 mg/dL Normal 70-100 [facility] Comment on above: Result Comment: [facility] Glucose Reference Range is dependent on time and content of last meal. Glucose of more than 200 mg/dL in a nonstressed, ambulatory subject supports the diagnosis of Diabetes Mellitus. ADA recommended reference range Performed By: #### C BC, BMP, MG #### [facility] [address] Potassium [Moles/Vol] 3.8 mmol/L Normal 3.5-5.1 [facility] Comment on above: Performed By: #### C BC, BMP, MG #### [facility] [address] Sodium [Moles/Vol] 139 mmol/L Normal 136-145 [facility] Comment on above: Performed By: #### C BC, BMP, MG #### [facility] [address] Urea nitrogen [Mass/Vol] 6 mg/dL Low 7-25 [facility] Comment on above: Performed By: #### C BC, BMP, MG #### [facility] [address] Complete Blood Count Auto Di ffon 03-13-2023 Basophils (Bld) [#/Vol] 0.0 10*3/uL Normal 0.0-0.2 [facility] Comment on above: Result Comment: PERF ORMED BY: [place] [address] PATHOLOGIST IT ARCHITECT WAYNE WAKEFIELD M.D. Performed By: #### C BC, BMP, MG #### [facility] [address] [place] [address] [place] Basophils/100 WBC (Bld) 0.5 % Normal . [facility] Comment on above: Performed By: #### C BC, BMP, MG #### [facility] [address] Eosinophils (Bld) [#/Vol] 0.4 10*3/uL Normal 0.0-0.45 [facility] Comment on above: Performed By: #### C BC, BMP, MG #### [facility] [address] [place] [address] [place] Eosinophils/100 WBC (Bld) 4.5 % Normal . [facility] Comment on above: Performed By: #### C BC, BMP, MG #### [facility] [address] Erythrocyte distribution width (RBC) [Ratio] 15.7 % High 11.9-15.3 [facility] Comment on above: Performed By: #### C BC, BMP, MG #### [address] Hematocrit (Bld) [Volume fraction] 36.2 % Normal 34.0-46.4 [facility] Comment on above: Performed By: #### C BC, BMP, MG #### [facility] [address] Hemoglobin (Bld) [Mass/Vol] 12.1 g/dL Normal 11.8-15.4 [facility] Comment on above: Performed By: #### C BC, BMP, MG #### [address] Lymphocytes (Bld) [#/Vol] 1.5 10*3/uL Normal 1.00-4.8 [facility] Comment on above: Performed By: #### C BC, BMP, MG #### [facility] [address] [place] [address] [place] Lymphocytes/100 WBC (Bld) 16.5 % Normal . [facility] Comment on above: Performed By: #### C BC, BMP, MG #### [facility] [address] [place] [address] [place] MCH (RBC) [Entitic mass] 32.3 pg Normal 24.7-34.3 [facility] Comment on above: Performed By: #### C BC, BMP, MG #### [facility] [address] [place] [address] MCV (RBC) [Entitic vol] 96.7 fL Normal 80-100 [facility] Comment on above: Performed By: #### C BC, BMP, MG #### [facility] [address] Mean Corpuscular HGB Conc 33.4 g/dL Normal 32.0-35.0 [facility] Comment on above: Performed By: #### C BC, BMP, MG #### [facility] [address] Monocytes (Bld) [#/Vol] 0.7 10*3/uL Normal 0.0-0.8 [facility] Comment on above: Performed By: #### C BC, BMP, MG #### [facility] [address] [place] [address] Monocytes/100 WBC (Bld) 8.0 % Normal . [facility] Comment on above: Performed By: #### C BC, BMP, MG #### [facility] [address] [place] [address] Neutrophils (Bld) [#/Vol] 6.6 10*3/uL Normal 1.8-7.7 [facility] Comment on above: Performed By: #### C BC, BMP, MG #### [facility] [address] [place] [address] Neutrophils/100 WBC (Bld) 70.5 % Normal . [facility] Comment on above: Performed By: #### C BC, BMP, MG #### [facility] [address] [place] [address] NRBC% 0.1 /100{WBC} Normal 0-0.5 [facility] Comment on above: Performed By: #### C BC, BMP, MG #### [facility] [address] [place] [address] Platelet mean volume (Bld) [Entitic vol] 6.6 fL Normal 6.3-10.7 [facility] Comment on above: Performed By: #### C BC, BMP, MG #### [facility] [address] [place] [address] [place] Platelets (Bld) [#/Vol] 398 10*3/uL Normal 150-450 [facility] Comment on above: Performed By: #### C BC, BMP, MG #### [facility] [address] [place] [address] RBC (Bld) [#/Vol] 3.75 10*6/uL Normal 3.60-5.00 [facility] Comment on above: Performed By: #### C BC, BMP, MG #### [address] WBC (Bld) [#/Vol] 9.3 10*3/uL Normal 3.8-11.6 [facility] Comment on above: Performed By: #### C BC, BMP, MG #### [address] Glucose Poct Glucometerson 0 03-13-2023 Commemt1 Glu2: Cleaned Meter Normal [facility] Comment on above: Result Comment: PERF ORMED BY: [place] [address] PATHOLOGIST IT ARCHITECT WAYNE WAKEFIELD M.D. Performed By: #### V ANCT #### [address] Glucose [Mass/Vol] 152 mg/dL Normal [facility] Comment on above: Result Comment: [place] Glucose Reference Range is dependent on time and content of last meal. Glucose of more than 200 mg/dL in a nonstressed, ambulatory subject supports the diagnosis of Diabetes Mellitus. Performed By: #### V ANCT #### [address] Glucose [Mass/Vol] 190 mg/dL Normal [facility] Comment on above: Result Comment: [place] om Glucose Reference Range is dependent on time and content of last meal. Glucose of more than 200 mg/dL in a nonstressed, ambulatory subject supports the diagnosis of Diabetes Mellitus. PERFORMED BY: [place] [address] PATHOLOGIST IT ARCHITECT WAYNE WAKEFIELD M.D. Performed By: #### G LULS #### Point of Care testing , Glucose [Mass/Vol] 176 mg/dL Normal [facility] Comment on above: Result Comment: [facility] Glucose Reference Range is dependent on time and content of last meal. Glucose of more than 200 mg/dL in a nonstressed, ambulatory subject supports the diagnosis of Diabetes Mellitus. PERFORMED BY: [facility] [address] [place] [address] PATHOLOGIST IT ARCHITECT WAYNE WAKEFIELD M.D. Performed By: #### G LULS #### Point of Care testing , Glucose [Mass/Vol] 107 mg/dL Normal [facility] Comment on above: Result Comment: [facility] Glucose Reference Range is dependent on time and content of last meal. Glucose of more than 200 mg/dL in a nonstressed, ambulatory subject supports the diagnosis of Diabetes Mellitus. PERFORMED BY: [facility] [address] [place] [address] PATHOLOGIST IT ARCHITECT WAYNE WAKEFIELD M.D. Performed By: #### G LULS #### Point of Care testing , Glucose [Mass/Vol] 101 mg/dL Normal [facility] Comment on above: Result Comment: [facility] Glucose Reference Range is dependent on time and content of last meal. Glucose of more than 200 mg/dL in a nonstressed, ambulatory subject supports the diagnosis of Diabetes Mellitus. PERFORMED BY: [facility] [address] [place] [address] PATHOLOGIST IT ARCHITECT WAYNE WAKEFIELD M.D. Performed By: #### G LULS #### Point of Care testing , Serum or plasma trough vanco mycin levelOrdered By: Eron Wood on 03-13-2023 Vancomycin trough [Mass/Vol] 16.8 ug/mL 10.0-20.0 [facility] Comment on above: Last dose: - Vancomycin,Troughon 03-13-20 Vancomycin,Trough 16.8 ug/mL Normal 10.0-20.0 [facility] Comment on above: Result Comment: Last dose: - PERFORMED BY: [facility] [address] [place] [address] PATHOLOGIST IT ARCHITECT WAYNE WAKEFIELD M.D. Performed By: #### G LULS #### Point of Care testing , Ammoniaon 03-12-2023 Ammonia (P) [Moles/Vol] 31 umol/L Normal [facility] Comment on above: Result Comment: PERF ORMED BY: [facility] [address] [place] [address] PATHOLOGIST IT ARCHITECT WAYNE WAKEFIELD M.D. Performed By: #### G LULS #### Point of Care testing , Ammonia [Moles/volume] in Pl asmaOrdered By: Víctor Stallings on 03-12-2023 Ammonia (P) [Moles/Vol] 31 umol/L [facility] Amphetamine Screen Ql (U)Ord ered By: Eron Wood on 03-12-2023 Amphetamines Ql (U) Negative Negative [facility] Barbiturates [Presence] in U rine by Screen methodOrdered By: Eron Wood on 03-12-2023 Barbiturates Screen Ql (U) Negative Negative [facility] Basic Metabolic Panelon 02-14 Anion gap [Moles/Vol] 9.5 mmol/L Normal 6.0-15.0 [facility] Comment on above: Performed By: #### G LULS #### Point of Care testing , Calcium [Mass/Vol] 8.2 mg/dL Low 8.6-10.3 [facility] Comment on above: Performed By: #### G LULS #### Point of Care testing , Chloride [Moles/Vol] 109 mmol/L High 98-107 [facility] Comment on above: Performed By: #### G LULS #### Point of Care testing , CO2 [Moles/Vol] 23.3 mmol/L Normal 21.0-31.0 [facility] Comment on above: Performed By: #### G LULS #### Point of Care testing , Creatinine [Mass/Vol] 0.73 mg/dL Normal 0.60-1.20 [facility] Comment on above: Performed By: #### G LULS #### Point of Care testing , Creatinine Clr Calc Pharmacy 111.29 [facility] Comment on above: Result Comment: PERF ORMED BY: [facility] [address] [place] [address] PATHOLOGIST IT ARCHITECT WAYNE WAKEFIELD M.D. Performed By: #### G LULS #### Point of Care testing , GFR/1.73 sq M.predicted MDRD (S/P/Bld) [Vol rate/Area] mL/min/{1.73_m2} [facility] Comment on above: Performed By: #### G LULS #### Point of Care testing , Glucose [Mass/Vol] 62 mg/dL Low 70-100 [facility] Comment on above: Result Comment: [facility] Glucose Reference Range is dependent on time and content of last meal. Glucose of more than 200 mg/dL in a nonstressed, ambulatory subject supports the diagnosis of Diabetes Mellitus. ADA recommended reference range Performed By: #### G LULS #### Point of Care testing , Potassium [Moles/Vol] 3.8 mmol/L Normal 3.5-5.1 [facility] Comment on above: Performed By: #### G LULS #### Point of Care testing , Sodium [Moles/Vol] 138 mmol/L Normal 136-145 [facility] Comment on above: Performed By: #### G LULS #### Point of Care testing , Urea nitrogen [Mass/Vol] 8 mg/dL Normal 7-25 [facility] Comment on above: Performed By: #### G LULS #### Point of Care testing , Benzodiazepines Screen Ql (U )Ordered By: Eron Wood on 03-12-2023 Benzodiazepines Ql (U) Negative Negative [facility] Benzoylecgonine [Presence] i n Urine by Screen methodOrdered By: Eron Wood on 03-12-2023 Benzoylecgonine Screen Ql (U) Negative Negative [facility] CT head/brain wo conon 03-12 CT head/brain wo con [facility] [place] [address] CT Scan Report Signed Patient: Christiane Perez MR#: [id number] 2 : 1975 Acct:[id number] Age/Sex: 48 / F ADM Date: 03/10/23 Loc: Room: [address] [place] [address] Type: ADM IN Attending Dr: Eron Wood [...] Vick Eden M.D.03/12/2023 4:47 PM Dictation Location: [place] [address] Transcribed By: [facility] 03/12/23 164 Dictated By: Vick Eden II, MD 03/12/232 Signed By: 03/12/[id number] Normal [facility] Calciumon 03-12-2023 Calcium [Mass/Vol] 8.4 mg/dL Low 8.6-10.3 [facility] Comment on above: Result Comment: PERF ORMED BY: [address] [place] [address] PATHOLOGIST IT ARCHITECT WAYNE WAKEFIELD M.D. Performed By: #### G LULS #### Point of Care testing , Cannabinoids [Presence] in U rine by Screen methodOrdered By: Eron Wood on 03-12-2023 Cannabinoids Screen Ql (U) Negative Negative [facility] Comment on above: These are unconfirme d results and should not be used for legal purposes. Drug Cut-Off Concentration: AMPH 1000 ng/mL HANNAH 200 ng/mL JENNIFER 200 ng/mL COCM 300 ng/mL OP 300 ng/mL PCP 25 ng/mL THC 20 ng/mL Complete Blood Count Auto Di ffon 03-12-2023 Basophils (Bld) [#/Vol] 0.1 10*3/uL Normal 0.0-0.2 [facility] Comment on above: Result Comment: PERF ORMED BY: [facility] [address] [place] [address] PATHOLOGIST IT ARCHITECT WAYNE WAKEFIELD M.D. Performed By: #### G LULS #### Point of Care testing , Basophils/100 WBC (Bld) 0.7 % Normal . [facility] Comment on above: Performed By: #### G LULS #### Point of Care testing , Eosinophils (Bld) [#/Vol] 0.3 10*3/uL Normal 0.0-0.45 [facility] Comment on above: Performed By: #### G LULS #### Point of Care testing , Eosinophils/100 WBC (Bld) 2.9 % Normal . [facility] Comment on above: Performed By: #### G LULS #### Point of Care testing , Erythrocyte distribution width (RBC) [Ratio] 15.8 % High 11.9-15.3 [facility] Comment on above: Performed By: #### G LULS #### Point of Care testing , Hematocrit (Bld) [Volume fraction] 35.6 % Normal 34.0-46.4 [facility] Comment on above: Performed By: #### G LULS #### Point of Care testing , Hemoglobin (Bld) [Mass/Vol] 11.8 g/dL Normal 11.8-15.4 [facility] Comment on above: Performed By: #### Sophia HERNANDEZLS #### Point of Care testing , Lymphocytes (Bld) [#/Vol] 1.3 10*3/uL Normal 1.00-4.8 [facility] Comment on above: Performed By: #### G MARYLS #### Point of Care testing , Lymphocytes/100 WBC (Bld) 13.5 % Normal . [facility] Comment on above: Performed By: #### G MARYLS #### Point of Care testing , MCH (RBC) [Entitic mass] 32.4 pg Normal 24.7-34.3 [facility] Comment on above: Performed By: #### G MARYLS #### Point of Care testing , MCV (RBC) [Entitic vol] 97.7 fL Normal 80-100 [facility] Comment on above: Performed By: #### Sophia HERNANDEZLS #### Point of Care testing , Mean Corpuscular HGB Conc 33.1 g/dL Normal 32.0-35.0 [facility] Comment on above: Performed By: #### Sophia GARVEY #### Point of Care testing , Monocytes (Bld) [#/Vol] 0.9 10*3/uL High 0.0-0.8 [facility] Comment on above: Performed By: #### G MARYLS #### Point of Care testing , Monocytes/100 WBC (Bld) 9.2 % Normal . [facility] Comment on above: Performed By: #### G MARYLS #### Point of Care testing , Neutrophils (Bld) [#/Vol] 7.2 10*3/uL Normal 1.8-7.7 [facility] Comment on above: Performed By: #### G MARYLS #### Point of Care testing , Neutrophils/100 WBC (Bld) 73.7 % Normal . [facility] Comment on above: Performed By: #### G MARYLS #### Point of Care testing , NRBC% 0.1 /100{WBC} Normal 0-0.5 [facility] Comment on above: Performed By: #### G LULS #### Point of Care testing , Platelet mean volume (Bld) [Entitic vol] 6.8 fL Normal 6.3-10.7 [facility] Comment on above: Performed By: #### G LULS #### Point of Care testing , Platelets (Bld) [#/Vol] 342 10*3/uL Normal 150-450 [facility] Comment on above: Performed By: #### G LULS #### Point of Care testing , RBC (Bld) [#/Vol] 3.64 10*6/uL Normal 3.60-5.00 [facility] Comment on above: Performed By: #### G LULS #### Point of Care testing , WBC (Bld) [#/Vol] 9.8 10*3/uL Normal 3.8-11.6 [facility] Comment on above: Performed By: #### G MARE #### Point of Care testing , Drug Screen,Urineon 03-12-20 23 Amphetamine Screen,Urine Negative Normal Negative [facility] Comment on above: Performed By: #### C BC, BMP, MG #### [facility] [address] [place] [address] Barbiturate Screen,Urine Negative Normal Negative [facility] Comment on above: Performed By: #### C BC, BMP, MG #### [facility] [address] [place] [address] [place] Benzodiazepines Screen,Urine Negative Normal Negative [facility] Comment on above: Performed By: #### C BC, BMP, MG #### [facility] [address] [place] [address] [place] Cannabinoid Screen,Urine Negative Normal Negative [facility] Comment on above: Result Comment: Thes e are unconfirmed results and should not be used for legal purposes. Drug Cut-Off Concentration: AMPH 1000 ng/mL HANNAH 200 ng/mL JENNIFER 200 ng/mL COCM 300 ng/mL OP 300 ng/mL PCP 25 ng/mL THC 20 ng/mL PERFORMED BY: [place] [address] PATHOLOGIST IT ARCHITECT WAYNE WAKEFIELD M.D. Performed By: #### C BC, BMP, MG #### [facility] [address] [place] [address] [place] Cocaine Screen,Urine Negative Normal Negative [facility] Comment on above: Performed By: #### C BC, BMP, MG #### [facility] [address] [place] [address] [place] Opiate Screen,Urine Positive High Negative [facility] Comment on above: Performed By: #### C BC, BMP, MG #### [facility] [address] Phencyclidine Screen,Urine Negative Normal Negative [facility] Comment on above: Performed By: #### C BC, BMP, MG #### [address] Glucose Poct Glucometerson 0 03-12-2023 Commemt1 Glu2: Cleaned Meter Normal [facility] Comment on above: Result Comment: PERF ORMED BY: [place] [address] PATHOLOGIST IT ARCHITECT WAYNE WAKEFIELD M.D. Performed By: #### C BC, BMP, MG #### [address] Glucose [Mass/Vol] 199 mg/dL Normal [facility] Comment on above: Result Comment: [facility] Glucose Reference Range is dependent on time and content of last meal. Glucose of more than 200 mg/dL in a nonstressed, ambulatory subject supports the diagnosis of Diabetes Mellitus. Performed By: #### C BC, BMP, MG #### [facility] [address] [place] [address] Glucose [Mass/Vol] 158 mg/dL Normal [facility] Comment on above: Result Comment: [facility] Glucose Reference Range is dependent on time and content of last meal. Glucose of more than 200 mg/dL in a nonstressed, ambulatory subject supports the diagnosis of Diabetes Mellitus. PERFORMED BY: [facility] [address] [place] [address] PATHOLOGIST IT ARCHITECT WAYNE WAKEFIELD M.D. Performed By: #### G LULS #### Point of Care testing , Glucose [Mass/Vol] 152 mg/dL Normal [facility] Comment on above: Result Comment: [place] Glucose Reference Range is dependent on time and content of last meal. Glucose of more than 200 mg/dL in a nonstressed, ambulatory subject supports the diagnosis of Diabetes Mellitus. PERFORMED BY: [address] [place] [id number] PATHOLOGIST IT ARCHITECT WAYNE WAKEFIELD M.D. Performed By: #### G LULS #### Point of Care testing , Commemt1 Glu2: Cleaned Meter Normal [facility] Comment on above: Result Comment: PERF ORMED BY: [address] [place] [address] PATHOLOGIST IT ARCHITECT WAYNE WAKEFIELD M.D. Performed By: #### G LULS #### Point of Care testing , Glucose [Mass/Vol] 75 mg/dL Normal [facility] Comment on above: Result Comment: [place] Glucose Reference Range is dependent on time and content of last meal. Glucose of more than 200 mg/dL in a nonstressed, ambulatory subject supports the diagnosis of Diabetes Mellitus. Performed By: #### G LULS #### Point of Care testing , Opiates [Presence] in Urine by Screen methodOrdered By: Eron Wood on 03-12-2023 Opiates Screen Ql (U) Positive Negative [facility] Phencyclidine Screen Ql (U)O rdered By: Eron Wood on 03-12-2023 Phencyclidine Ql (U) Negative Negative [facility] Vancomycin [Mass/volume] in Serum or Plasma --peakOrdered By: Eron Wood on 03-12-2023 Vancomycin peak [Mass/Vol] 14.6 ug/mL 20.0-40.0 [facility] Comment on above: Last dose: - Vancomycin,Peakon 03-12-2023 Vancomycin,Peak 14.6 ug/mL Low 20.0-40.0 [facility] Comment on above: Order Comment: Comme nt ?DRAW 1 HOUR AFTER INFUSION COMPLETES Date of last dose?: [id number] Time of last dose?: 1500 Result Comment: Last dose: - PERFORMED BY: [place] [address] PATHOLOGIST IT ARCHITECT WAYNE WAKEFIELD M.D. Performed By: #### G LULS #### Point of Care testing , Vancomycin,Troughon 03-12-20 Vancomycin,Trough 17.8 ug/mL Normal 10.0-20.0 [facility] Comment on above: Result Comment: Last dose: - PERFORMED BY: [place] [address] PATHOLOGIST IT ARCHITECT WAYNE WAKEFIELD M.D. Performed By: #### V ANCT #### [address] XR chest 1V portableon 03-12 XR chest 1V portable [facility] [place] [address] [place] [address] XRay Report Signed Patient: Christiane Perez MR#: [id number] 2 : 1975 Acct:[id number] Age/Sex: 48 / F ADM Date: 03/10/23 Loc: Room: [address] [place] [address] Type: ADM IN Attending Dr: Eron Wood [...] 1619 Dictated By: Vick Eden II, MD 03/12/231616 Signed By: 03/12/23 161 [facility] XR chest 1V portable [facility] [place] [address] XRay Report Signed Patient: Christiane Perez MR#: [id number] 2 : 1975 Acct:[id number] Age/Sex: 48 / F ADM Date: 03/10/23 Loc: Room: [address] [place] [address] Type: ADM IN Attending Dr: Eron Wood [...] MD 03/12/23 135 Signed By: 03/12/23 135 [facility] [employer] Specimen Processingon [employer] Specimen Processing Concentration Negative Performed at: [address] [id number] Financial Engineer: Juan Jennings PhD, Phone: [phone] Negative No acid fast bacilli isolated after 6 weeks. Performed at: [address] [id number] Financial Engineer: Juan Jennings PhD, Phone: [phone] PERFORMED BY: [place] [address] PATHOLOGIST IT ARCHITECT WAYNE WAKEFIELD M.D. [facility] Comment on above: Performed By: #### G LULS #### Point of Care testing , Aerobic Cultureon 03-11-2023 Aerobic Culture ORGANISM: Janine tropicalis (O:CANTRO) Quantity of Growth Light Growth ORGANISM: Janine albicans (O:CANALB) Quantity of Growth Light Growth Gram Stain Result 1+ White Blood Cells Rare Epithelial Cells Rare Gram Positive Bacilli Rare Gram Positive Cocci 1+ Yeast Like Elements PERFORMED BY: [place] [address] PATHOLOGIST IT ARCHITECT WAYNE WAKEFIELD M.D. [facility] Comment on above: Performed By: #### A ERC #### [facility] [address] [place] [address] [place] Bacteria identified Aer cx N om (Bronch spec)Ordered By: Errol Nicole on 03-11-2023 Bronchial Culture Janine tropicalis [facility] Bronchial Culture Janine albicans F [facility] Basic Metabolic Panelon 02-14 Anion gap [Moles/Vol] 8.9 mmol/L Normal 6.0-15.0 [facility] Comment on above: Performed By: #### C BC, BMP, MG #### [facility] [address] [place] [address] [place] Calcium [Mass/Vol] 8.4 mg/dL Low 8.6-10.3 [facility] Comment on above: Performed By: #### C BC, BMP, MG #### [facility] [address] [place] [address] [place] Chloride [Moles/Vol] 107 mmol/L Normal 98-107 [facility] Comment on above: Performed By: #### C BC, BMP, MG #### [facility] [address] [place], [place] [id number] [place] CO2 [Moles/Vol] 25.0 mmol/L Normal 21.0-31.0 [facility] Comment on above: Performed By: #### C BC, BMP, MG #### [facility] [address] [place] [address] [place] Creatinine [Mass/Vol] 0.72 mg/dL Normal 0.60-1.20 [facility] Comment on above: Performed By: #### C BC, BMP, MG #### [facility] [address] [place] [address] [place] Creatinine Clr Calc Pharmacy 112.35 [facility] Comment on above: Performed By: #### C BC, BMP, MG #### [facility] [address] [place] [address] [place] GFR/1.73 sq M.predicted MDRD (S/P/Bld) [Vol rate/Area] mL/min/{1.73_m2} [facility] Comment on above: Performed By: #### C BC, BMP, MG #### [facility] [address] Glucose [Mass/Vol] 120 mg/dL High 70-100 [facility] Comment on above: Result Comment: [facility] Glucose Reference Range is dependent on time and content of last meal. Glucose of more than 200 mg/dL in a nonstressed, ambulatory subject supports the diagnosis of Diabetes Mellitus. ADA recommended reference range Performed By: #### C BC, BMP, MG #### [facility] [address] [place] [address] [place] Potassium [Moles/Vol] 3.9 mmol/L Normal 3.5-5.1 [facility] Comment on above: Performed By: #### C BC, BMP, MG #### [facility] [address] [place] [address] [place] Sodium [Moles/Vol] 137 mmol/L Normal 136-145 [facility] Comment on above: Performed By: #### C BC, BMP, MG #### [facility] [address] [place] [address] [place] Urea nitrogen [Mass/Vol] 10 mg/dL Normal 7-25 [facility] Comment on above: Performed By: #### C BC, BMP, MG #### [address] Bronch Cultureon 03-11-2023 Bronch Culture ORGANISM: Janine tropicalis (O:CANTRO) Quantity of Growth Light Growth ORGANISM: Janine albicans (O:CANALB) Quantity of Growth Light Growth PERFORMED BY: [place] [address] PATHOLOGIST IT ARCHITECT WAYNE WAKEFIELD M.D. Normal [facility] Comment on above: Performed By: #### G LULS #### Point of Care testing , Complete Blood Count Auto Di ffon 03-11-2023 Basophils (Bld) [#/Vol] 0.0 10*3/uL Normal 0.0-0.2 [facility] Comment on above: Result Comment: PERF ORMED BY: [place] [address] PATHOLOGIST IT ARCHITECT WAYNE WAKEFIELD M.D. Performed By: #### C BC, BMP, MG #### [address] Basophils/100 WBC (Bld) 0.3 % Normal . [facility] Comment on above: Performed By: #### C BC, BMP, MG #### [address] Eosinophils (Bld) [#/Vol] 0.2 10*3/uL Normal 0.0-0.45 [facility] Comment on above: Performed By: #### C BC, BMP, MG #### [address] Eosinophils/100 WBC (Bld) 2.1 % Normal . [facility] Comment on above: Performed By: #### C BC, BMP, MG #### [address] Erythrocyte distribution width (RBC) [Ratio] 15.9 % High 11.9-15.3 [facility] Comment on above: Performed By: #### C BC, BMP, MG #### [address] Hematocrit (Bld) [Volume fraction] 36.2 % Normal 34.0-46.4 [facility] Comment on above: Performed By: #### C DANIELE BMP, MG #### [address] Hemoglobin (Bld) [Mass/Vol] 11.9 g/dL Normal 11.8-15.4 [facility] Comment on above: Performed By: #### C DANIELE BMP, MG #### [address] Lymphocytes (Bld) [#/Vol] 1.1 10*3/uL Normal 1.00-4.8 [facility] Comment on above: Performed By: #### C DANIELE BMP, MG #### [address] Lymphocytes/100 WBC (Bld) 9.5 % Normal . [facility] Comment on above: Performed By: #### C DANIELE BMP, MG #### [address] MCH (RBC) [Entitic mass] 31.9 pg Normal 24.7-34.3 [facility] Comment on above: Performed By: #### C DANIELE BMP, MG #### [address] MCV (RBC) [Entitic vol] 97.5 fL Normal 80-100 [facility] Comment on above: Performed By: #### C BC BMP, MG #### [address] Mean Corpuscular HGB Conc 32.8 g/dL Normal 32.0-35.0 [facility] Comment on above: Performed By: #### C BC BMP, MG #### [address] Monocytes (Bld) [#/Vol] 1.0 10*3/uL High 0.0-0.8 [facility] Comment on above: Performed By: #### C BC BMP, MG #### [facility] [address] [place] [address] [place] Monocytes/100 WBC (Bld) 8.9 % Normal . [facility] Comment on above: Performed By: #### C BC, BMP, MG #### [facility] [address] [place] [address] [place] Neutrophils (Bld) [#/Vol] 9.3 10*3/uL High 1.8-7.7 [facility] Comment on above: Performed By: #### C BC, BMP, MG #### [facility] [address] Neutrophils/100 WBC (Bld) 79.2 % Normal . [facility] Comment on above: Performed By: #### C BC, BMP, MG #### [facility] [address] NRBC% 0.0 /100{WBC} Normal 0-0.5 [facility] Comment on above: Performed By: #### C BC, BMP, MG #### [facility] [address] Platelet mean volume (Bld) [Entitic vol] 7.1 fL Normal 6.3-10.7 [facility] Comment on above: Performed By: #### C BC, BMP, MG #### [facility] [address] [place] [address] [place] Platelets (Bld) [#/Vol] 360 10*3/uL Normal 150-450 [facility] Comment on above: Performed By: #### C BC, BMP, MG #### [facility] [address] [place] [address] [place] RBC (Bld) [#/Vol] 3.72 10*6/uL Normal 3.60-5.00 [facility] Comment on above: Performed By: #### C BC, BMP, MG #### [facility] [address] [place] [address] [place] WBC (Bld) [#/Vol] 11.7 10*3/uL High 3.8-11.6 [facility] Comment on above: Performed By: #### C BC, BMP, MG #### [address] Fungal cultureOrdered By: Corrina Nicole on 03-11-2023 Fungus identified Cx Nom (Unsp spec) [facility] Fungus # 2 identified in Uns pecified specimen by CultureOrdered By: Errol Nicole on 03-11-2023 Fungus identified # 2 Cx Nom (Unsp spec) [facility] Fungus # 3 identified in Uns pecified specimen by CultureOrdered By: Errol Nicole on 03-11-2023 Fungus identified # 3 Cx Nom (Unsp spec) [facility] Fungus (Mycology) Cultureon 03-11-2023 Fungus (Mycology) Culture Preliminary report Final report Janine glabrata Janine tropicalis Performed at: [place] [address] Financial Engineer: Juan Jennings PhD, Phone: [phone] Janine albicans Performed at: [place] [address] Financial Engineer: Juan Jennings PhD, Phone: [phone] PERFORMED BY: [place] [address] PATHOLOGIST IT ARCHITECT WAYNE WAKEFIELD M.D. [facility] Comment on above: Performed By: #### G LULS #### Point of Care testing , Fungus (Mycology) Result 2on 03-11-2023 Fungus (Mycology) Result 2 Janine tropicalis Performed at: [place] [address] Financial Engineer: Juan Jennings PhD, Phone: [phone] Janine albicans Performed at: [place] [address] Financial Engineer: Juan Jennings PhD, Phone: [phone] PERFORMED BY: [facility] [address] [place] [address] PATHOLOGIST IT ARCHITECT WAYNE WAKEFIELD M.D. [facility] Comment on above: Performed By: #### G LULS #### Point of Care testing , Glucose Poct Glucometerson 0 03-11-2023 Commemt1 Glu2: Cleaned Meter [facility] Comment on above: Result Comment: PERF ORMED BY: [address] [place] [address] PATHOLOGIST IT ARCHITECT WAYNE WAKEFIELD M.D. Performed By: #### G LULS #### Point of Care testing , Glucose [Mass/Vol] 121 mg/dL Normal [facility] Comment on above: Result Comment: [place] om Glucose Reference Range is dependent on time and content of last meal. Glucose of more than 200 mg/dL in a nonstressed, ambulatory subject supports the diagnosis of Diabetes Mellitus. Performed By: #### G LULS #### Point of Care testing , Commemt1 Glu2: Cleaned Meter [facility] Comment on above: Result Comment: PERF ORMED BY: [address] [place] [address] PATHOLOGIST IT ARCHITECT WAYNE WAKEFIELD M.D. Performed By: #### G LULS #### Point of Care testing , Glucose [Mass/Vol] 80 mg/dL Normal [facility] Comment on above: Result Comment: [place] Glucose Reference Range is dependent on time and content of last meal. Glucose of more than 200 mg/dL in a nonstressed, ambulatory subject supports the diagnosis of Diabetes Mellitus. Performed By: #### G LULS #### Point of Care testing , Glucose [Mass/Vol] 134 mg/dL [facility] Comment on above: Result Comment: [place] Glucose Reference Range is dependent on time and content of last meal. Glucose of more than 200 mg/dL in a nonstressed, ambulatory subject supports the diagnosis of Diabetes Mellitus. PERFORMED BY: [address] [place] [address] PATHOLOGIST IT ARCHITECT WAYNE WAKEFIELD M.D. Performed By: #### G LULS #### Point of Care testing , Commemt1 [facility] Comment on above: Result Comment: Glu2 : WILL NOTIFY DR/RN PERFORMED BY: [address] [place] [address] PATHOLOGIST IT ARCHITECT WAYNE WAKEFIELD M.D. Performed By: #### G LULS #### Point of Care testing , Glucose [Mass/Vol] 58 mg/dL Off scale low [facility] Comment on above: Result Comment: [place] om Glucose Reference Range is dependent on time and content of last meal. Glucose of more than 200 mg/dL in a nonstressed, ambulatory subject supports the diagnosis of Diabetes Mellitus. Performed By: #### G LULS #### Point of Care testing , Commemt1 Glu2: Cleaned Meter Normal [facility] Comment on above: Result Comment: PERF ORMED BY: [address] [place] [address] PATHOLOGIST IT ARCHITECT WAYNE WAKEFIELD M.D. Performed By: #### G LULS #### Point of Care testing , Glucose [Mass/Vol] 249 mg/dL Normal [facility] Comment on above: Result Comment: [place] om Glucose Reference Range is dependent on time and content of last meal. Glucose of more than 200 mg/dL in a nonstressed, ambulatory subject supports the diagnosis of Diabetes Mellitus. Performed By: #### G LULS #### Point of Care testing , Glucose [Mass/Vol] 138 mg/dL Normal [facility] Comment on above: Result Comment: [place] om Glucose Reference Range is dependent on time and content of last meal. Glucose of more than 200 mg/dL in a nonstressed, ambulatory subject supports the diagnosis of Diabetes Mellitus. PERFORMED BY: [address] [place] [address] PATHOLOGIST IT ARCHITECT WAYNE WAKEFIELD M.D. Performed By: #### G LULS #### Point of Care testing , Gram Stainon 03-11-2023 Microscopic observation Gram stain Nom (Unsp spec) Gram Stain Result 1+ White Blood Cells 1+ Yeast Like Elements No Bacteria Seen Fungus Smear Results 1+ Yeast Like Elements Seen PERFORMED BY: [address] [place] [id number] PATHOLOGIST IT ARCHITECT WAYNE WAKEFIELD M.D. [facility] Comment on above: Performed By: #### G MARE #### Point of Care testing , [place] 03-11-2023 L ----- Specimen: [id number] Received: 03/12/23 Status: DAY St Num: [id number] Spec Type: Cytology Subm Dr: Errol Nicole MD Tissues: A BRONWASH ([facility]) Procedures: HE/2, Gross/Micro L4, Cyto Prepstain, PAPSTN Age/ Patient Sex Location Account Attending Physician Christiane Perez 48/F [id number] Krunal Kelly DO SPEC NUM: [id number] RECD: 03/12/23 STATUS: DAY ST NUM: [id number] HARRY: 03/11/[address]: Errol Nicole MD ENTERED: 03/12/23 [facility] DR: SPEC TYPE: Cytology DEPT: CNG ENTERED BY: [id number] RECV BY: [id number] ORDERED: HE/2, Gross/Micro L4, Cyto Prepstain, PAPSTN ORDERED: HE/2, Gross/Micro L4, Cyto Prepstain, PAPSTN Pathological Diagnosis Bronchial wash, cytology: - Negative for malignancy, inflammatory process - See note and pathology report [id number] Note: Smear and cell block shows many [...] examination.(SS/nh) Specimen: [id number] Received: 03/12/23 Status: DAY Martioscar Num: [id number] Spec Type: Cytology Subm Dr: Errol Nicole MD Tissues: A BRONWASH ([facility] BRONCH[facility] WASH[facility]) Procedures: HE/2, Gross/Micro L4, Cyto Prepstain, PAPSTN Patient: Christiane Perez Neto [id number] (Continued) Signed (signature on file) Gregory Aranda MD 03/17/23820 [facility] L ----- Specimen: [id number] Received: 03/11/23 Status: DAY St Num: [id number] Spec Type: Surgical Subm Dr: Errol Nicole MD Tissues: A Lung - Transbroncial Biopsy ([facility] BX) Procedures: ISIDRA SONG, HE/5, Gross/Micro L4, GMS II ARMANI Oquendo Age/ Patient Sex Location Account Attending Physician Christiane Perez 48/F 3T [id number] Krunal Kelly DO SPEC NUM: [id number] RECD: 03/11/23 STATUS: DAY REOscar NUM: [id number] HARRY: 03/11/23- SUBM DR: Errol Nicole MD ENTERED: 03/11/23 RAKESH [...] negative. This case will send to the [facility] for consultation and second opinion and the result will be reported as an addendum. Specimen: [id number] Received: 03/11/23 Status: DAY St Num: [id number] Spec Type: Surgical Subm Dr: Errol Nicole MD Tissues: A Lung - Transbroncial Biopsy ([facility] BX) Procedures: PAS - LGRN, HE/5, Gross/Micro L4, GMS II Dark, AFB Patient: PerezChristiane [id number] (Continued) Specimen: [id number] Received: 03/11/23 (Continued) Signed (signature on file) Gregory Aranda MD 03/17/23811 Specimen: [id number] Received: 03/11/23 Status: DAY St Num: [id number] Spec Type: Surgical Subm Dr: Errol Nicole MD Tissues: A Lung - Transbroncial Biopsy ([facility] BX) Procedures: ISIDRA - NOHEMI, HE/5, Gross/Micro L4, GMS II Dark, AFB Patient: Christiane Perez [id number] (Continued) Specimen: [id number] Received: 03/11/23 (Continued) Clinical Information Abscess Gross Description Received in formalin labeled with the patient's name, date of and [facility] biopsies are multiple villegas tissues measuring 1.5 x 0.3 x 0.2 cm in aggregate. Entirely submitted in one cassette labeled A1. Microscopic Description Two H E slides reviewed. The microscopic examination confirms the diagnosis. CPT Codes 79798 Specimen: [id number] Received: 03/11/23 Status: DAY Martioscar Num: [id number] Spec Type: Surgical Subm Dr: Errol Nicole MD Tissues: A Lung - Transbroncial Biopsy ([facility] BX) Procedures: ISIDRA SONG, HE/5, Gross/Micro L4, GMS II ARMANI Oquendo Patient: Christiane Perez [id number] (Continued) Signed (signature on file) Gregory Aranda MD 03/17/23811 Normal [facility] Magnesiumon 03-11-2023 Magnesium [Mass/Vol] 1.9 mg/dL Normal 1.9-2.7 [facility] Comment on above: Result Comment: PERF ORMED BY: [place] [address] PATHOLOGIST IT ARCHITECT WAYNE WAKEFIELD M.D. Performed By: #### C BC, BMP, MG #### [facility] [address] [place], [place] [id number] [facility] Magnesium [Mass/volume] in S kaitlin or PlasmaOrdered By: Eron Wood on 03-11-2023 Magnesium [Mass/Vol] 1.9 mg/dL 1.9-2.7 [facility] Vancomycin,Peakon 03-11-2023 Vancomycin,Peak 12.5 ug/mL Low 20.0-40.0 [facility] Comment on above: Order Comment: Comme nt ?DRAW 1 HOUR AFTER INFUSION COMPLETES Date of last dose?: [id number] Time of last dose?: 1500 Result Comment: Last dose: - PERFORMED BY: [place] [address] PATHOLOGIST IT ARCHITECT WAYNE WAKEFIELD M.D. Performed By: #### G MARE #### Point of Care testing , Activated partial thrombopla stin time (aPTT) in platelet poor plasma by coagulation aOrdered By: Lavell Salazar on 03-10-2023 aPTT Coag (PPP) [Time] 40.2 s 25.1-36.5 [facility] B-Type Natriuretic Peptideon 03-10-2023 Natriuretic peptide B (Bld) [Mass/Vol] 46.0 pg/mL Normal 5-100 [facility] Comment on above: Result Comment: PERF ORMED BY: [place] [address] PATHOLOGIST IT ARCHITECT WAYNE WAKEFIELD M.D. Performed By: #### C BC, BMP, MG #### [facility] [address] [place] [address] [facility] Bacterial blood cultureOrder ed By: Lavell Salazar on 03-10-2023 Bacteria identified Cx Nom (Bld) NO GROWTH 5 DAYS [facility] Basic Metabolic Panelon 02-14 Anion gap [Moles/Vol] 11.3 mmol/L Normal 6.0-15.0 [facility] Comment on above: Performed By: #### C BC, BMP, MG #### [facility] [address] Calcium [Mass/Vol] 8.9 mg/dL Normal 8.6-10.3 [facility] Comment on above: Performed By: #### C BC, BMP, MG #### [facility] [address] [place] [address] [place] Chloride [Moles/Vol] 103 mmol/L Normal 98-107 [facility] Comment on above: Performed By: #### C BC, BMP, MG #### [facility] [address] CO2 [Moles/Vol] 24.2 mmol/L Normal 21.0-31.0 [facility] Comment on above: Performed By: #### C BC, BMP, MG #### [facility] [address] [place] [address] [place] Creatinine [Mass/Vol] 0.70 mg/dL Normal 0.60-1.20 [facility] Comment on above: Performed By: #### C BC, BMP, MG #### [facility] [address] [place] [address] [place] Creatinine Clr Calc Pharmacy 117.33 [facility] Comment on above: Result Comment: PERF ORMED BY: [place] [address] PATHOLOGIST IT ARCHITECT WAYNE WAKEFIELD M.D. Performed By: #### C BC, BMP, MG #### [facility] [address] [place] [address] [place] GFR/1.73 sq M.predicted MDRD (S/P/Bld) [Vol rate/Area] mL/min/{1.73_m2} [facility] Comment on above: Performed By: #### C BC, BMP, MG #### [facility] [address] Glucose [Mass/Vol] 69 mg/dL Low 70-100 [facility] Comment on above: Result Comment: [place] Glucose Reference Range is dependent on time and content of last meal. Glucose of more than 200 mg/dL in a nonstressed, ambulatory subject supports the diagnosis of Diabetes Mellitus. ADA recommended reference range Performed By: #### C BC, BMP, MG #### [facility] [address] Potassium [Moles/Vol] 3.5 mmol/L Normal 3.5-5.1 [facility] Comment on above: Performed By: #### C BC, BMP, MG #### [address] Sodium [Moles/Vol] 135 mmol/L Low 136-145 [facility] Comment on above: Performed By: #### C BC, BMP, MG #### [address] Urea nitrogen [Mass/Vol] 10 mg/dL Normal 7-25 [facility] Comment on above: Performed By: #### C BC BMP, MG #### [place] [address] [place] Bilirubin.direct [Mass/volum e] in Serum or PlasmaOrdered By: Lavell Salazar on 03-10-2023 Bilirubin.direct [Mass/Vol] 0.20 mg/dL 0.03-0.18 [facility] Blood Cultureon 03-10-2023 Bacteria identified Cx Nom (Bld) NO GROWTH 5 DAYS PERFORMED BY: [place] [address] PATHOLOGIST IT ARCHITECT WAYNE WAKEFIELD M.D. [facility] Comment on above: Performed By: #### C BC, BMP, MG #### [address] Bacteria identified Cx Nom (Bld) NO GROWTH 5 DAYS PERFORMED BY: [address] [place] [address] PATHOLOGIST IT ARCHITECT WAYNE WAKEFIELD M.D. [facility] Comment on above: Performed By: #### C DANIELE, JOE, #### [place] [id number] [facility] CT chest w conon 03-10-2023 CT chest w con [facility] [place] [address] [place] [address] CT Scan Report Signed Patient: Christiane Perez MR#: [id number] 2 : 1975 Acct:[id number] Age/Sex: 48 / F ADM Date: 03/10/23 Loc: ER Room: Type: [facility] ER Attending Dr: Copies to: Lavell Salazar [...] adenopathy. No pneumoperitoneum. No mediastinal hematoma. PULMONARY JESUS: No hilar mass or adenopathy is seen. [...] Giovanny Cleveland M.D.03/10/2023 2:30 PM Dictation Location: [place] [address] Transcribed By: [facility] 03/10/23 1430 Dictated By: Giovanny Cleveland DO 03/10/23 1421 Signed By: 03/10/23 1430 Normal [facility] Complete Blood Count Auto Di ffon 03-10-2023 Basophils (Bld) [#/Vol] 0.0 10*3/uL Normal 0.0-0.2 [facility] Comment on above: Result Comment: PERF ORMED BY: [facility] [address] [place] [address] PATHOLOGIST IT ARCHITECT WAYNE WAKEFIELD M.D. Performed By: #### G LULS #### Point of Care testing , Basophils/100 WBC (Bld) 0.2 % Normal . [facility] Comment on above: Performed By: #### G LULS #### Point of Care testing , Eosinophils (Bld) [#/Vol] 0.2 10*3/uL Normal 0.0-0.45 [facility] Comment on above: Performed By: #### G LULS #### Point of Care testing , Eosinophils/100 WBC (Bld) 1.1 % Normal . [facility] Comment on above: Performed By: #### G LULS #### Point of Care testing , Erythrocyte distribution width (RBC) [Ratio] 15.4 % High 11.9-15.3 [facility] Comment on above: Performed By: #### G LULS #### Point of Care testing , Hematocrit (Bld) [Volume fraction] 38.1 % Normal 34.0-46.4 [facility] Comment on above: Performed By: #### G LULS #### Point of Care testing , Hemoglobin (Bld) [Mass/Vol] 12.8 g/dL Normal 11.8-15.4 [facility] Comment on above: Performed By: #### G LULS #### Point of Care testing , Lymphocytes (Bld) [#/Vol] 1.0 10*3/uL Normal 1.00-4.8 [facility] Comment on above: Performed By: #### G MARYLS #### Point of Care testing , Lymphocytes/100 WBC (Bld) 5.7 % Normal . [facility] Comment on above: Performed By: #### G MARYLS #### Point of Care testing , MCH (RBC) [Entitic mass] 32.6 pg Normal 24.7-34.3 [facility] Comment on above: Performed By: #### G MARYLS #### Point of Care testing , MCV (RBC) [Entitic vol] 97.2 fL Normal 80-100 [facility] Comment on above: Performed By: #### G MARYLS #### Point of Care testing , Mean Corpuscular HGB Conc 33.5 g/dL Normal 32.0-35.0 [facility] Comment on above: Performed By: #### G MARYLS #### Point of Care testing , Monocytes (Bld) [#/Vol] 1.2 10*3/uL High 0.0-0.8 [facility] Comment on above: Performed By: #### Sophia HERNANDEZLS #### Point of Care testing , Monocytes/100 WBC (Bld) 24.68 % High 0.00-20.00 [facility] Comment on above: Result Comment: For adults in ED, MDW > 20.0 may be associated with a higher risk of sepsis during the first 12 hrs of hospital admission Performed By: #### G MARYLS #### Point of Care testing , Monocytes/100 WBC (Bld) 7.2 % Normal . [facility] Comment on above: Performed By: #### G MARYLS #### Point of Care testing , Neutrophils (Bld) [#/Vol] 14.2 10*3/uL High 1.8-7.7 [facility] Comment on above: Performed By: #### G MARYLS #### Point of Care testing , Neutrophils/100 WBC (Bld) 85.8 % Normal . [facility] Comment on above: Performed By: #### G LULS #### Point of Care testing , NRBC% 0.1 /100{WBC} Normal 0-0.5 [facility] Comment on above: Performed By: #### G MARYLS #### Point of Care testing , Platelet mean volume (Bld) [Entitic vol] 7.2 fL Normal 6.3-10.7 [facility] Comment on above: Performed By: #### G MARYLS #### Point of Care testing , Platelets (Bld) [#/Vol] 410 10*3/uL Normal 150-450 [facility] Comment on above: Performed By: #### G MARE #### Point of Care testing , RBC (Bld) [#/Vol] 3.92 10*6/uL Normal 3.60-5.00 [facility] Comment on above: Performed By: #### G MARYLS #### Point of Care testing , WBC (Bld) [#/Vol] 16.6 10*3/uL High 3.8-11.6 [facility] Comment on above: Performed By: #### G MARE #### Point of Care testing , Creatine Kinaseon 03-10-2023 CK [Catalytic activity/Vol] 23 U/L Low 30-223 [facility] Comment on above: Performed By: #### C BC, BMP, MG #### [address] Creatine kinase [Enzymatic a ctivity/volume] in Serum or PlasmaOrdered By: Lavell Salazar on 03-10-2023 CK [Catalytic activity/Vol] 23 U/L 30-223 [facility] ECG 12 lead ECGon 03-10-2023 ECG 12 lead ECG [facility] [place] [address] Electrocardiograph Report Signed Patient: Christiane Perez MR#: [id number] 2 : 1975 Acct:[id number] Age/Sex: 48 / F ADM Date: 03/10/23 Loc: ER Room: Type: [facility] ER Attending Dr: Ordering Provider: Lavell Salazar, [...] has shortened Confirmed by Lavell Salazar DO ([id number]) on 03/10/2023 3:09:19 PM Referred By: Electronically Signed By:Lavell Salazar DO Transcribed By: MUS Signed By Lavell Salazar DO 3 1509 Normal [facility] Glucose Poct Glucometerson 0 03-10-2023 Glucose [Mass/Vol] 129 mg/dL Normal [facility] Comment on above: Result Comment: [facility] Glucose Reference Range is dependent on time and content of last meal. Glucose of more than 200 mg/dL in a nonstressed, ambulatory subject supports the diagnosis of Diabetes Mellitus. PERFORMED BY: [address] [place] [address] PATHOLOGIST IT ARCHITECT WAYNE WAKEFIELD M.D. Performed By: #### G LULS #### Point of Care testing , Commemt1 Glu2: Cleaned Meter Normal [facility] Comment on above: Result Comment: PERF ORMED BY: [facility] [address] [place] [address] PATHOLOGIST IT ARCHITECT WAYNE WAKEFIELD M.D. Performed By: #### G LULS #### Point of Care testing , Glucose [Mass/Vol] 176 mg/dL Normal [facility] Comment on above: Result Comment: [facility] Glucose Reference Range is dependent on time and content of last meal. Glucose of more than 200 mg/dL in a nonstressed, ambulatory subject supports the diagnosis of Diabetes Mellitus. Performed By: #### G LULS #### Point of Care testing , Hepatic Panelon 03-10-2023 Albumin [Mass/Vol] 3.3 g/dL Low 3.5-5.7 [facility] Comment on above: Performed By: #### C BC, BMP, MG #### [facility] [address] [place] [address] Albumin/Globulin [Mass ratio] 0.9 {ratio} [facility] Comment on above: Performed By: #### C BC, BMP, MG #### [facility] [address] [place] [address] ALP [Catalytic activity/Vol] 110 U/L High 34-104 [facility] Comment on above: Performed By: #### C BC, BMP, MG #### [facility] [address] [place] [address] ALT [Catalytic activity/Vol] 6 U/L Low 7-52 [facility] Comment on above: Performed By: #### C BC, BMP, MG #### [facility] [address] [place] [address] AST [Catalytic activity/Vol] 10 U/L Low 13-39 [facility] Comment on above: Performed By: #### C BC, BMP, MG #### [facility] [address] [place] [address] Bilirubin [Mass/Vol] 0.7 mg/dL Normal 0.3-1.0 [facility] Comment on above: Performed By: #### C BC, BMP, MG #### [facility] [address] [place] [address] Bilirubin,Indirect 0.5 mg/dL Normal [facility] Comment on above: Performed By: #### C BC, BMP, MG #### [facility] [address] [place] [address] Bilirubin.indirect [Mass/Vol] 0.20 mg/dL High 0.03-0.18 [facility] Comment on above: Performed By: #### C BC, BMP, MG #### [facility] [address] [place] [address] Globulin (S) [Mass/Vol] 3.6 g/dL Normal [facility] Comment on above: Performed By: #### C BC, BMP, MG #### [facility] [address] [place] [address] [place] Protein [Mass/Vol] 6.9 g/dL Normal 6.4-8.9 [facility] Comment on above: Performed By: #### C BC, BMP, MG #### [facility] [address] Laboratory - CoagulationOrde red By: Lavell Salazar on 03-10-2023 PT Coag (PPP) [Time] 14.3 s 9.0-12.9 [facility] Lactate [Moles/volume] in Se rum or PlasmaOrdered By: Lavell Salazar on 03-10-2023 Lactate [Moles/Vol] 1.2 mmol/L 0.5-2.2 [facility] Lactic Acidon 03-10-2023 Lactate [Moles/Vol] 1.2 mmol/L Normal 0.5-2.2 [facility] Comment on above: Result Comment: PERF ORMED BY: [facility] [address] [place] [address] PATHOLOGIST IT ARCHITECT WAYNE WAKEFIELD M.D. Performed By: #### G MARE #### Point of Care testing , Monocyte distribution width [Entitic volume] in Blood by AutomatedOrdered By: Lavell Salazar on 03-10-2023 Monocyte distribution width Auto (Bld) [Entitic vol] 24.68 % 0.00-20.00 [facility] Comment on above: For adults in ED, MD W > 20.0 may be associated with a higher risk of sepsis during the first 12 hrs of hospital admission Natriuretic peptide B [Mass/ Vol]Ordered By: Lavell Salazar on 03-10-2023 Natriuretic peptide B (Bld) [Mass/Vol] 46.0 pg/mL 5-100 [facility] Partial Thromboplastin Timeo n 03-10-2023 aPTT Coag (Bld) [Time] 40.2 s High 25.1-36.5 [facility] Comment on above: Result Comment: PERF ORMED BY: [facility] [address] [place] [address] PATHOLOGIST IT ARCHITECT WAYNE WAKEFIELD M.D. Performed By: #### G MARE #### Point of Care testing , Platelet poor plasma interna tional normalized ratio (INR) by coagulation assay (relatOrdered By: Lavell Salazar on 03-10-2023 INR Coag (PPP) [Relative time] 1.2 {INR} [facility] Comment on above: INR Therapeutic Rang [...] Coag (PPP) [Relative time] 1.2 {INR} Normal [facility] Comment on above: Result Comment: INR [...] Coag (PPP) [Time] 14.3 s High 9.0-12.9 [facility] Comment on above: Performed By: #### G MARE #### Point of Care testing , Serum or plasma non-glucuron idated bilirubin measurement (mass/volume)Ordered By: Lavell Salazar on 03-10-2023 Bilirubin.indirect [Mass/Vol] 0.5 mg/dL [facility] Troponin I High Sensitivityo n 03-10-2023 Troponin I High Sensitivity 12.8 pg/mL Normal 0.0-15.0 [facility] Comment on above: Result Comment: PERF ORMED BY: [facility] [address] [place] [address] PATHOLOGIST IT ARCHITECT WAYNE WAKEFIELD M.D. Performed By: #### C BC, BMP, MG #### [address] Troponin I.cardiac [Mass/vol ume] in Serum or Plasma by Detection limit <= 0.01 ng/Ordered By: Lavell Salazar on 03-10-2023 Troponin I.cardiac DL <= 0.01 ng/mL [Mass/Vol] 12.8 pg/mL 0.0-15.0 [facility] XR chest 1V portableon 03-10 XR chest 1V portable [facility] [place] [address] [place] [address] XRay Report Signed Patient: Christiane Perez MR#: [id number] 2 : 1975 Acct:[id number] Age/Sex: 48 / F ADM Date: 03/10/23 [...] Johnson Jr., D.OJosue03/10/2023 1:11 PM Dictation Location: [place] [address] Transcribed By: [facility] 03/10/231310 Dictated By: Rodger Johnson Jr, DO 03/10/231309 Signed By: 03/10/23 131 Normal [facility] Insurance Correspondence Off ice02-19-2023 Insurance Correspondence Office [id number]#1.00CD:12 7 Normal [facility] Quick Strepon 02-14-2023 S. pyogenes Org specific cx Ql (Throat) Negative [employer] [facility] [employer]am .[place] Other Quick Strep [facility] [employer]am .[place] Other Insurance Correspondence Off iceon 01-20-2023 Insurance Correspondence Office [id number]#1.00CD:1 27 Normal [facility] CBC AUTO DIFFon 12-01-2022 BASO # 0.0 103/ul Normal 0.0-0.1 [facility] Comment on above: Performed By: #### I NFLUAB #### [facility] [address] [place] [address] Dr. Roscoe Segal Basophils/100 WBC (Bld) 0.6 % Normal 0.2-2.0 [facility] Comment on above: Performed By: #### I NFLUAB #### [facility] [address] [place] [address] Dr. Roscoe Segal EO # 0.2 103/ul Normal 0.0-0.7 [facility] Comment on above: Performed By: #### I NFLUAB #### [facility] [address] [place] [address] Dr. Roscoe Segal Eosinophils/100 WBC (Bld) 2.4 % Normal 0.9-7.0 [facility] Comment on above: Performed By: #### I NFLUAB #### [facility] [address] [place] [address] Dr. Roscoe Segal Erythrocyte distribution width (RBC) [Ratio] 14.9 % Normal 11.0-15.0 [facility] Comment on above: Performed By: #### I NFLUAB #### [facility] [address] [place] [address] Dr. Roscoe Segal Hematocrit (Bld) [Volume fraction] 44.7 % Normal 36.0-48.0 [facility] Comment on above: Performed By: #### I NFLUAB #### [facility] [address] [place], [place] [address] Dr. Roscoe Segal Hemoglobin (Bld) [Mass/Vol] 14.9 g/dL Normal 12.0-16.0 [facility] Comment on above: Performed By: #### I NFLUAB #### [facility] [address] [place] [address] Dr. Roscoe Segal IG # 0.02 10e3/ul Normal 0.00-0.03 [facility] Comment on above: Performed By: #### I NFLUAB #### [facility] [address] [place] [address] Dr. Roscoe Segal IG % 0.3 % Normal 0.0-0.5 [facility] Comment on above: Performed By: #### I NFLUAB #### [facility] [address] [place] [address] Dr. Roscoe Segal LYMPH # 1.6 103/ul Normal 1.2-3.8 [facility] Comment on above: Performed By: #### I NFLUAB #### [facility] [address] [place] [address] Dr. Roscoe Segal Lymphocytes/100 WBC (Bld) 26.1 % Normal 20.5-60.0 [facility] Comment on above: Performed By: #### I NFLUAB #### [facility] [address] [place] [address] Dr. Roscoe Segal MANUAL DIFF REQ NO Normal [facility] Comment on above: Performed By: #### I NFLUAB #### [facility] [address] [place] [address] Dr. Roscoe Segal MCH (RBC) [Entitic mass] 32.3 pg Normal 26.7-34.0 [facility] Comment on above: Performed By: #### I NFLUAB #### [facility] [address] [place] [address] Dr. Roscoe Segal MCHC (RBC) [Mass/Vol] 33.3 g/dL Normal 29.9-35.2 [facility] Comment on above: Performed By: #### I NFLUAB #### [facility] [address] [place] [address] [address] Roscoe Segal MCV (RBC) [Entitic vol] 96.8 fL Normal 81.0-99.0 [facility] Comment on above: Performed By: #### I NFLUAB #### [facility] [address] [place] [address] Dr. Roscoe Segal MONO # 0.6 103/ul Normal 0.3-0.8 [facility] Comment on above: Performed By: #### I NFLUAB #### [facility] [address] [place] [address] Dr. Roscoe Segal Monocytes/100 WBC (Bld) 9.1 % Normal 1.7-12.0 [facility] Comment on above: Performed By: #### I NFLUAB #### [facility] [address] [place] [address] Dr. Roscoe Segal NEUT # 3.8 103/ul Normal 1.4-6.5 [facility] Comment on above: Performed By: #### I NFLUAB #### [facility] [address] [place] [address] Dr. Roscoe Segal Neutrophils/100 WBC (Bld) 61.5 % Normal 43.0-75.0 [facility] Comment on above: Performed By: #### I NFLUAB #### [facility] [address] [place] [address] Dr. Roscoe Segal Platelet mean volume (Bld) [Entitic vol] 8.5 fL Critically low 9.5-13.5 [facility] Comment on above: Performed By: #### I NFLUAB #### [facility] [address] [place] [address] Dr. Roscoe Segal PLT 268 103/ul Normal 150-450 [facility] Comment on above: Performed By: #### I NFLUAB #### [facility] [address] [place] [address] Dr. Roscoe Segal RBC 4.62 106/ul Normal 4.20-5.40 [facility] Comment on above: Performed By: #### I NFLUAB #### [facility] [address] [address] [address] Roscoe Segal WBC 6.3 103/ul Normal 4.0-11.0 [facility] Comment on above: Performed By: #### I NFLUAB #### [facility] [address] [place] [address] Dr. Roscoe Segal GLYCOHEMOGLOBIN A1Con 2022 ADA RECOMMENDATION SEE BELOW Normal The [facility] Comment on above: Result Comment: ADA RECOMMENDED LIMIT 4.0 - 6.0 ADA THERAPEUTIC TARGET < 7.0 ACTION SUGGESTED > 7.0 Performed By: #### C BC #### [facility] [address] [address] [address] Roscoe Segal Glucose [Mass/Vol] 137 mg/dL Normal [facility] Comment on above: Performed By: #### C BC #### [facility] [address] [place] [address] Dr. Roscoe Segal HbA1c (Bld) [Mass fraction] 6.4 % Critically high 4.5-6.2 [facility] Comment on above: Performed By: #### C BC #### [facility] [address] [place] [address] Dr. Roscoe Segal LIPID PROFILEon 12-01-2022 CHOL-HDL RATIO NORM SEE BELOW Normal [facility] Comment on above: Result Comment: 3.3 - 4.4 LOW RISK 4.4 - 7.1 AVERAGE RISK 7.1 - 11.0 MODERATE RISK >11.0 HIGH RISK Performed By: #### I NFLUAB #### [facility] [address] [place] [address] Dr. Roscoe Segal Cholesterol [Mass/Vol] 116 mg/dL Normal <=200 [facility] Comment on above: Performed By: #### I NFLUAB #### [facility] [address] [place] [address] Dr. Roscoe Segal Cholesterol in HDL [Mass/Vol] 58 mg/dL Normal 40-60 [facility] Comment on above: Performed By: #### I NFLUAB #### [facility] [address] [place] [address] Dr. Roscoe Segal Cholesterol in LDL [Mass/Vol] 43.4 mg/dL Normal [facility] Comment on above: Performed By: #### I NFLUAB #### [facility] [address] [address] [address] Roscoe Segal Cholesterol.total/Chol esterol in HDL [Mass ratio] 2.0 {ratio} Normal [facility] Comment on above: Performed By: #### I NFLUAB #### [facility] [address] [address] [address] Roscoe Segal HDL NORMAL > or = 60 mg/dl - LO W CARDIOVASCULAR RISK <40 mg/dl - HIGH CARDIOVASCULAR RISK Normal [facility] Comment on above: Performed By: #### I NFLUAB #### [facility] [address] [address] [address] Roscoe Segal LDL CALC NORMAL SEE BELOW Normal The [facility] Comment on above: Result Comment: <100 mg/dl OPTIMAL 100 - 129 mg/dl NEAR OR ABOVE OPTIMAL 130 - 159 mg/dl BORDERLINE HIGH 160 - 189 mg/dl HIGH >190 mg/dl VERY HIGH Performed By: #### I NFLUAB #### [facility] [address] [address] [address] Roscoe Segal Triglyceride [Mass/Vol] 73 mg/dL Normal <=150 [facility] Comment on above: Performed By: #### I NFLUAB #### [facility] [address] [address] [address] Roscoe Segal VLDL CALC 14.6 mg/dL Normal [facility] Comment on above: Performed By: #### I NFLUAB #### [facility] [address] [address] [address] Roscoe Segal PROF 14(COMP METB)on 023 Albumin [Mass/Vol] 2.9 g/dL Critically low 3.4-5.0 [facility] Comment on above: Performed By: #### P OCGLUC #### [facility] [address] [address] [address] Roscoe Segal Albumin/Globulin [Mass ratio] 0.8 {ratio} Normal [facility] Comment on above: Performed By: #### P OCGLUC #### [facility] [address] [address] [address] Roscoe Segal ALP [Catalytic activity/Vol] 114 U/L Normal 46-116 [facility] Comment on above: Performed By: #### P OCGLUC #### [facility] [address] [address] [address] Roscoe Segal ALT [Catalytic activity/Vol] 15 U/L Normal 14-59 [facility] Comment on above: Performed By: #### P OCGLUC #### [facility] [address] [address] [address] Roscoe Segal Anion gap [Moles/Vol] 14.3 mmol/L Normal [facility] Comment on above: Performed By: #### P OCGLUC #### [facility] [address] [address] [address] Roscoe Segal AST [Catalytic activity/Vol] 10 U/L Critically low 15-37 [facility] Comment on above: Performed By: #### P OCGLUC #### [facility] [address] [address] [address] Roscoe Segal Bilirubin [Mass/Vol] 0.3 mg/dL Normal 0.2-1.0 [facility] Comment on above: Performed By: #### P OCGLUC #### [facility] [address] [address] [address] Roscoe Segal Calcium [Mass/Vol] 8.7 mg/dL Normal 8.5-10.1 [facility] Comment on above: Performed By: #### P OCGLUC #### [facility] [address] [address] [address] Roscoe Segal Chloride [Moles/Vol] 104 mmol/L Normal 98-107 [facility] Comment on above: Performed By: #### P OCGLUC #### [facility] [address] [address] [address] Roscoe Segal CO2 [Moles/Vol] 23.5 mmol/L Normal 21.0-32.0 [facility] Comment on above: Performed By: #### P OCGLUC #### [facility] [address] [address] [address] Roscoe Segal Creatinine [Mass/Vol] 0.83 mg/dL Normal 0.55-1.02 [facility] Comment on above: Performed By: #### P OCGLUC #### [facility] [address] [address] [address] Roscoe Segal EGFR-AF COMORAN >60 Normal >=60 [facility] Comment on above: Performed By: #### P OCGLUC #### [facility] [address] [address] [address] Roscoe Segal EGFR-NON AF COMORAN >60 Normal >=60 [facility] Comment on above: Performed By: #### P OCGLUC #### [facility] [address] [address] [address] Roscoe Segal Globulin (S) [Mass/Vol] 3.5 g/dL Normal [facility] Comment on above: Performed By: #### P OCGLUC #### [facility] [address] [address] [address] Roscoe Segal Glucose [Mass/Vol] 235 mg/dL Critically high 74-106 [facility] Comment on above: Performed By: #### P OCGLUC #### [facility] [address] [address] [address] Roscoe Segal Potassium [Moles/Vol] 3.8 mmol/L Normal 3.5-5.1 [facility] Comment on above: Performed By: #### P OCGLUC #### [facility] [address] [address] [address] Roscoe Segal Protein [Mass/Vol] 6.4 g/dL Normal 6.4-8.2 [facility] Comment on above: Performed By: #### P OCGLUC #### [facility] [address] [address] [address] Roscoe Segal Sodium [Moles/Vol] 138 mmol/L Normal 136-145 [facility] Comment on above: Performed By: #### P OCGLUC #### [facility] [address] [place] [address] Dr. Roscoe Segal Urea nitrogen [Mass/Vol] 9.0 mg/dL Normal 7.0-18.0 [facility] Comment on above: Performed By: #### P OCGLUC #### [facility] [address] [place] [address] Dr. Roscoe Segal Urea nitrogen/Creatinine [Mass ratio] 10.8 mg/mg Normal [facility] Comment on above: Performed By: #### P OCGLUC #### [facility] [address] [place] [address] Dr. Roscoe Segal CARDIAC VICK ADMITon 023 CK [Catalytic activity/Vol] 43 U/L Normal 26-192 [facility] Comment on above: Performed By: #### I NFLUAB #### [facility] [address] [place] [address] Dr. Roscoe Segal CK.MB [Mass/Vol] 2.22 ng/mL Normal <=3.60 [facility] Comment on above: Performed By: #### I NFLUAB #### [facility] [address] [place] [address] Dr. Roscoe Segal GWEN 58 ng/mL Normal 9-82 [facility] Comment on above: Performed By: #### I NFLUAB #### [facility] [address] [place] [address] Dr. Roscoe Segal CBC AUTO DIFFon 09-11-2022 BASO # 0.1 103/ul Normal 0.0-0.1 [facility] Comment on above: Performed By: #### P OCGLUC #### [facility] [address] [place] [address] Dr. Roscoe Segal Basophils/100 WBC (Bld) 0.8 % Normal 0.2-2.0 [facility] Comment on above: Performed By: #### P OCGLUC #### [facility] [address] [place] [address] Dr. Roscoe Segal EO # 0.2 103/ul Normal 0.0-0.7 [facility] Comment on above: Performed By: #### P OCGLUC #### [facility] [address] [address] [address] Roscoe Segal Eosinophils/100 WBC (Bld) 2.1 % Normal 0.9-7.0 [facility] Comment on above: Performed By: #### P OCGLUC #### [facility] [address] [place] [address] Dr. Roscoe Segal Erythrocyte distribution width (RBC) [Ratio] 14.2 % Normal 11.0-15.0 [facility] Comment on above: Performed By: #### P OCGLUC #### [facility] [address] [place] [address] Dr. Roscoe Segal Hematocrit (Bld) [Volume fraction] 48.4 % Critically high 36.0-48.0 [facility] Comment on above: Performed By: #### P OCGLUC #### [facility] [address] [place] [address] Dr. Roscoe Segal Hemoglobin (Bld) [Mass/Vol] 15.0 g/dL Normal 12.0-16.0 [facility] Comment on above: Performed By: #### P OCGLUC #### [facility] [address] [place] [address] Dr. Roscoe Segal IG # 0.02 10e3/ul Normal 0.00-0.03 [facility] Comment on above: Performed By: #### P OCGLUC #### [facility] [address] [place] [address] Dr. Roscoe Segal IG % 0.2 % Normal 0.0-0.5 [facility] Comment on above: Performed By: #### P OCGLUC #### [facility] [address] [place] [address] Dr. Roscoe Segal LYMPH # 2.2 103/ul Normal 1.2-3.8 [facility] Comment on above: Performed By: #### P OCGLUC #### [facility] [address] [place] [address] Dr. Roscoe Segal Lymphocytes/100 WBC (Bld) 26.8 % Normal 20.5-60.0 [facility] Comment on above: Performed By: #### P OCGLUC #### [facility] [address] [address] [address] Roscoe Segal MANUAL DIFF REQ NO Normal [facility] Comment on above: Performed By: #### P OCGLUC #### [facility] [address] [place] [address] Dr. Roscoe Segal MCH (RBC) [Entitic mass] 32.8 pg Normal 26.7-34.0 [facility] Comment on above: Performed By: #### P OCGLUC #### [facility] [address] [place] [address] Dr. Roscoe Segal MCHC (RBC) [Mass/Vol] 31.0 g/dL Normal 29.9-35.2 [facility] Comment on above: Performed By: #### P OCGLUC #### [facility] [address] [place] [address] Dr. Roscoe Segal MCV (RBC) [Entitic vol] 105.7 fL Critically high 81.0-99.0 [facility] Comment on above: Result Comment: Slig ht Macrocytosis Present Performed By: #### P OCGLUC #### [facility] [address] [place] [address] Dr. Roscoe Segal MONO # 0.7 103/ul Normal 0.3-0.8 [facility] Comment on above: Performed By: #### P OCGLUC #### [facility] [address] [place] [address] Dr. Roscoe Segal Monocytes/100 WBC (Bld) 8.9 % Normal 1.7-12.0 [facility] Comment on above: Performed By: #### P OCGLUC #### [facility] [address] [place] [address] Dr. Roscoe Segal NEUT # 5.1 103/ul Normal 1.4-6.5 [facility] Comment on above: Performed By: #### P OCGLUC #### [facility] [address] [place] [address] Dr. Roscoe Segal Neutrophils/100 WBC (Bld) 61.2 % Normal 43.0-75.0 [facility] Comment on above: Performed By: #### P OCGLUC #### [facility] [address] [address] [address] Roscoe Segal Platelet mean volume (Bld) [Entitic vol] 8.7 fL Critically low 9.5-13.5 [facility] Comment on above: Performed By: #### P OCGLUC #### [facility] [address] [address] [address] Roscoe Segal PLT 382 103/ul Normal 150-450 [facility] Comment on above: Performed By: #### P OCGLUC #### [facility] [address] [address] [address] Roscoe Segal RBC 4.58 106/ul Normal 4.20-5.40 [facility] Comment on above: Performed By: #### P OCGLUC #### [facility] [address] [address] [address] Roscoe Segal WBC 8.3 103/ul Normal 4.0-11.0 [facility] Comment on above: Performed By: #### P OCGLUC #### [facility] [address] [address] [address] Roscoe Segal GLUCOSE BLOODon 09-11-2022 Glucose [Mass/Vol] 39 mg/dL Critically low 74-106 [facility] Comment on above: Performed By: #### P OCGLUC #### [facility] [address] [address] [address] Roscoe Segal POINT OF CARE GLUCOSEon 08-17 Glucose [Mass/Vol] 103 mg/dL Normal 74-106 [facility] Comment on above: Performed By: #### P OCGLUC #### [facility] [address] [address] [address] Roscoe Segal Glucose [Mass/Vol] 284 mg/dL Critically high 74-106 [facility] Comment on above: Performed By: #### P OCGLUC #### [facility] [address] [address] [address] Roscoe Segal Glucose [Mass/Vol] 104 mg/dL Normal 74-106 [facility] Comment on above: Performed By: #### P OCGLUC #### [facility] [address] [address] [address] Roscoe Segal Glucose [Mass/Vol] 94 mg/dL Normal 74-106 [facility] Comment on above: Performed By: #### I NFLUAB #### [facility] [address] [address] [address] Roscoe Segal Glucose [Mass/Vol] 136 mg/dL Critically high 74-106 [facility] Comment on above: Performed By: #### P OCGLUC #### [facility] [address] [address] [address] Roscoe Segal Glucose [Mass/Vol] 181 mg/dL Critically high 74-106 [facility] Comment on above: Performed By: #### P OCGLUC #### [facility] [address] [address] [address] Roscoe Segal Glucose [Mass/Vol] 103 mg/dL Normal 74-106 [facility] Comment on above: Performed By: #### C BC #### [facility] [address] [address] [address] Roscoe Segal Glucose [Mass/Vol] 81 mg/dL Normal 74-106 [facility] Comment on above: Performed By: #### P OCGLUC #### [facility] [address] [address] [address] Roscoe Segal Glucose [Mass/Vol] 52 mg/dL Critically low 74-106 [facility] Comment on above: Performed By: #### P OCGLUC #### [facility] [address] [address] [address] Roscoe Segal Glucose [Mass/Vol] 38 mg/dL Critically low 74-106 [facility] Comment on above: Result Comment: Will Repeat Test Performed By: #### C BC #### [facility] [address] [address] [address] Roscoe Segal Glucose [Mass/Vol] 67 mg/dL Critically low 74-106 [facility] Comment on above: Performed By: #### P OCGLUC #### [facility] [address] [address] [address] Roscoe Segal PROF CHEM 8 (BAS METB)on Anion gap [Moles/Vol] 13.1 mmol/L Normal [facility] Comment on above: Performed By: #### C BC #### [facility] [address] [place] [address] Dr. Roscoe Segal Calcium [Mass/Vol] 9.0 mg/dL Normal 8.5-10.1 [facility] Comment on above: Performed By: #### C BC #### [facility] [address] [place] [address] Dr. Roscoe Segal Chloride [Moles/Vol] 106 mmol/L Normal 98-107 [facility] Comment on above: Performed By: #### C BC #### [facility] [address] [place] [address] Dr. Roscoe Segal CO2 [Moles/Vol] 25.0 mmol/L Normal 21.0-32.0 [facility] Comment on above: Performed By: #### C BC #### [facility] [address] [place] [address] Dr. Roscoe Segal Creatinine [Mass/Vol] 0.86 mg/dL Normal 0.55-1.02 [facility] Comment on above: Performed By: #### C BC #### [facility] [address] [place] [address] Dr. Roscoe Segal EGFR-AF COMORAN >60 Normal >=60 [facility] Comment on above: Performed By: #### C BC #### [facility] [address] [place] [address] Dr. Roscoe Segal EGFR-NON AF COMORAN >60 Normal >=60 [facility] Comment on above: Performed By: #### C BC #### [facility] [address] [place] [address] Dr. Roscoe Segal Glucose [Mass/Vol] 36 mg/dL Critically low 74-106 [facility] Comment on above: Performed By: #### C BC #### [facility] [address] [place] [address] Dr. Roscoe Segal Potassium [Moles/Vol] 4.1 mmol/L Normal 3.5-5.1 [facility] Comment on above: Performed By: #### C BC #### [facility] [address] [address] [address] Roscoe Segal Sodium [Moles/Vol] 140 mmol/L Normal 136-145 [facility] Comment on above: Performed By: #### C BC #### [facility] [address] [address] [address] Roscoe Segal Urea nitrogen [Mass/Vol] 10.0 mg/dL Normal 7.0-18.0 [facility] Comment on above: Performed By: #### C BC #### [facility] [address] [place] [address] Dr. Roscoe Segal Urea nitrogen/Creatinine [Mass ratio] 11.6 mg/mg Normal [facility] Comment on above: Performed By: #### C BC #### [facility] [address] [place] [address] Dr. Roscoe Segal TROPONIN, HIGH SENSITIVITYon 09-11-2022 HSTROP 7.0 pg/mL Normal 4.0-51.3 [facility] Comment on above: Result Comment: CUT- OFF POINTS HAVE BEEN ESTABLISHED BASED ON THE FOURTH UNIVERSAL DEFINITIONS OF MYOCARDIAL INFARCTION. THE UPPER REFERENCE LIMIT (URL) OF TROPONIN, DEFINED THE 99TH PERCENTILE OF cTnI DISTRIBUTION IN A REFERENCE POPULATION, HAS BEEN CONFIRMED THE DECISION THRESHOLD FOR OR DIAGNOSIS. Performed By: #### I NFLUAB #### [facility] [address] [place] [address] Dr. Roscoe Segal INFLUENZA A AND B AGon 07-24 INFLUANEGH SEE BELOW Normal [facility] Comment on above: Result Comment: Nega tive for Flu A protein angiten. Infection due to Flu A cannot be ruled out. Flu A angiten in the sample may be below the detection limit of the test. Performed By: #### I NFLUAB #### [facility] [address] [place] [address] Dr. Roscoe Segal INFLUBNEGH SEE BELOW Normal [facility] Comment on above: Result Comment: Nega tive for Flu B protein antigen. Infection due to Flu B cannot be ruled out. Flu B antigen in the sample may be below the detection limit of the test. Performed By: #### I NFLUAB #### [facility] [address] [place] [address] Dr. Roscoe Segal INFLUENZA A AG Negative Normal NEGATIVE SEE COMMENT [facility] Comment on above: Performed By: #### I NFLUAB #### [facility] [address] [place] [address] Dr. Roscoe Segal INFLUENZA B AG Negative Normal NEGATIVE SEE COMMENT [facility] Comment on above: Performed By: #### I NFLUAB #### [facility] [address] [place] [address] Dr. Roscoe Segal INTERNAL CONTROLS Within Normal Limits Normal Wi thin Normal Limits [facility] Comment on above: Performed By: #### I NFLUAB #### [facility] [address] [place] [address] Dr. Roscoe Segal XR CHEST 1 Von [...] SHAJI LIMON Date: 2022-07-24 15:26 Normal [facility] XR CHEST 2 Von 05-25-2022 XR CHEST [...] by: GERMAINE FARRELL Date: 2022-05-25 16:[address] [facility] BLOOD GASES BTYon 04-27-2022 02 MODE NASAL CANNULA Normal [facility] Comment on above: Performed By: #### P OCGLUC #### [facility] [address] [place] [address] Dr. Roscoe Segal ALLENS TEST Positive [facility] Comment on above: Performed By: #### P OCGLUC #### [facility] [address] [address] [address] Roscoe Segal Base excess Calc (Bld) [Moles/Vol] -1.5000 mmol/L Normal -2.0-2.0 [facility] Comment on above: Performed By: #### P OCGLUC #### [facility] [address] [place] [address] Dr. Roscoe Segal BIPAP PRESSURE [facility] Comment on above: Performed By: #### P OCGLUC #### [facility] [address] [address] [address] Roscoe Segal CPAP [facility] Comment on above: Performed By: #### P OCGLUC #### [facility] [address] [address] [address] Roscoe Segal FIO2 [facility] Comment on above: Performed By: #### P OCGLUC #### [facility] [address] [place] [address] Dr. Roscoe Segal HCO3 (Bld) [Moles/Vol] 23.2 mmol/L Normal 22.0-26.0 T [facility] Comment on above: Performed By: #### P OCGLUC #### [facility] [address] [place] [address] Dr. Roscoe Segal LPM 3 [facility] Comment on above: Performed By: #### P OCGLUC #### [facility] [address] [place] [address] Dr. Roscoe Segal MINUTE VOLUME Normal [facility] Comment on above: Performed By: #### P OCGLUC #### [facility] [address] [address] [address] Roscoe Segal Oxygen (Bld) [Partial pressure] 76.4 mm[Hg] Critically low 80.0-100.0 [facility] Comment on above: Performed By: #### P OCGLUC #### [facility] [address] [place] [address] Dr. Roscoe Segal Oxygen saturation in Blood 94.8 % Critically low 95.0-100.0 [facility] Comment on above: Performed By: #### P OCGLUC #### [facility] [address] [address] [address] Roscoe Segal PCO2 39.5 mmHg Normal 35.0-45.0 [facility] Comment on above: Performed By: #### P OCGLUC #### [facility] [address] [place] [address] Dr. Roscoe Segal [facility] Comment on above: Performed By: #### P OCGLUC #### [facility] [address] [place] [address] Dr. Roscoe Segal pH (Bld) 7.384 [pH] Normal 7.350-7.[address] [facility] Comment on above: Performed By: #### P OCGLUC #### [facility] [address] [place] [address] [facility] Comment on above: Performed By: #### P OCGLUC #### [facility] [address] [address] [address] Roscoe Segal PS [facility] Comment on above: Performed By: #### P OCGLUC #### [facility] [address] [address] [address] Roscoe Segal PUNCTURE SITE LR [facility] Comment on above: Performed By: #### P OCGLUC #### [facility] [address] [place] [address] Dr. Roscoe Segal RATE [facility] Comment on above: Performed By: #### P OCGLUC #### [facility] [address] [address] [address] Roscoe Segal VENT MODE Normal [facility] Comment on above: Performed By: #### P OCGLUC #### [facility] [address] [place] [address] Dr. Roscoe Segal [facility] Comment on above: Performed By: #### P OCGLUC #### [facility] [address] [place] [address] Dr. Roscoe Segal BNPon 04-27-2022 Natriuretic peptide B (Bld) [Mass/Vol] 282.0 pg/mL Normal <=450.0 [facility] Comment on above: Performed By: #### P OCGLUC #### [facility] [address] [place] [address] Dr. Roscoe Segal CBC AUTO DIFFon 04-27-2022 BASO # 0.0 103/ul Normal 0.0-0.1 [facility] Comment on above: Performed By: #### P OCGLUC #### [facility] [address] [place] [address] Dr. Roscoe Segal Basophils/100 WBC (Bld) 0.2 % Normal 0.2-2.0 [facility] Comment on above: Performed By: #### P OCGLUC #### [facility] [address] [place] [address] Dr. Roscoe Sgeal EO # 0.0 103/ul Normal 0.0-0.7 [facility] Comment on above: Performed By: #### P OCGLUC #### [facility] [address] [place] [address] Dr. Roscoe Segal Eosinophils/100 WBC (Bld) 0.0 % Critically low 0.9-7.0 [facility] Comment on above: Performed By: #### P OCGLUC #### [facility] [address] [place] [address] Dr. Roscoe Segal Erythrocyte distribution width (RBC) [Ratio] 14.1 % Normal 11.0-15.0 [facility] Comment on above: Performed By: #### P OCGLUC #### [facility] [address] [place] [address] Dr. Roscoe Segal Hematocrit (Bld) [Volume fraction] 39.4 % Normal 36.0-48.0 [facility] Comment on above: Performed By: #### P OCGLUC #### [facility] [address] [address] [address] Roscoe Segal Hemoglobin (Bld) [Mass/Vol] 13.0 g/dL Normal 12.0-16.0 [facility] Comment on above: Performed By: #### P OCGLUC #### [facility] [address] [place] [address] Dr. Roscoe Segal IG # 0.14 10e3/ul Critically high 0.00-0.03 [facility] Comment on above: Performed By: #### P OCGLUC #### [facility] [address] [place] [address] Dr. Roscoe Segal IG % 1.0 % Critically high 0.0-0.5 [facility] Comment on above: Performed By: #### P OCGLUC #### [facility] [address] [place] [address] Dr. Roscoe eSgal LYMPH # 1.4 103/ul Normal 1.2-3.8 [facility] Comment on above: Performed By: #### P OCGLUC #### [facility] [address] [place] [address] Dr. Roscoe Segal Lymphocytes/100 WBC (Bld) 9.5 % Critically low 20.5-60.0 [facility] Comment on above: Performed By: #### P OCGLUC #### [facility] [address] [place] [address] Dr. Roscoe Segal MANUAL DIFF REQ NO Normal [facility] Comment on above: Performed By: #### P OCGLUC #### [facility] [address] [place] [address] Dr. Roscoe Segal MCH (RBC) [Entitic mass] 32.3 pg Normal 26.7-34.0 [facility] Comment on above: Performed By: #### P OCGLUC #### [facility] [address] [place] [address] Dr. Roscoe Segal MCHC (RBC) [Mass/Vol] 33.0 g/dL Normal 29.9-35.2 [facility] Comment on above: Performed By: #### P OCGLUC #### [facility] [address] [address] [address] Roscoe Segal MCV (RBC) [Entitic vol] 98.0 fL Normal 81.0-99.0 [facility] Comment on above: Performed By: #### P OCGLUC #### [facility] [address] [address] [address] Roscoe Segal MONO # 0.6 103/ul Normal 0.3-0.8 [facility] Comment on above: Performed By: #### P OCGLUC #### [facility] [address] [place] [address] Dr. Roscoe Segal Monocytes/100 WBC (Bld) 4.3 % Normal 1.7-12.0 [facility] Comment on above: Performed By: #### P OCGLUC #### [facility] [address] [place] [address] Dr. Roscoe Segal NEUT # 12.1 103/ul Critically high 1.4-6.5 [facility] Comment on above: Performed By: #### P OCGLUC #### [facility] [address] [place] [address] Dr. Roscoe Segal Neutrophils/100 WBC (Bld) 85.0 % Critically high 43.0-75.0 [facility] Comment on above: Performed By: #### P OCGLUC #### [facility] [address] [place] [address] Dr. Roscoe Segal Platelet mean volume (Bld) [Entitic vol] 8.9 fL Critically low 9.5-13.5 [facility] Comment on above: Performed By: #### P OCGLUC #### [facility] [address] [place] [address] Dr. Roscoe Segal PLT 362 103/ul Normal 150-450 [facility] Comment on above: Performed By: #### P OCGLUC #### [facility] [address] [place] [address] Dr. Roscoe Segal RBC 4.02 106/ul Critically low 4.20-5.40 [facility] Comment on above: Performed By: #### P OCGLUC #### [facility] [address] [place] [address] Dr. Roscoe Segal WBC 14.2 103/ul Critically high 4.0-11.0 [facility] Comment on above: Performed By: #### P OCGLUC #### [facility] [address] [place] [address] Dr. Roscoe Segal D-DIMERon 04-27-2022 D-DIMER 0.29 mg/L FEU Normal <=0.59 [facility] Comment on above: Performed By: #### D DIM #### [facility] [address] [place] [address] Dr. Roscoe Segal D-DIMER COMMENTS SEE BELOW Normal [facility] Comment on above: Result Comment: Incr eases [...] hospitalization. Performed By: #### D DIM #### [facility] [address] [place] [address] Dr. Roscoe Sgeal LACTATE/LACTIC ACIDon 2021 Lactate [Moles/Vol] 2.1 mmol/L Critically high 0.4-1.9 [facility] Comment on above: Performed By: #### P OCGLUC #### [facility] [address] [place] [address] Dr. Roscoe Segal PROF 14(COMP METB)on 022 Albumin [Mass/Vol] 3.0 g/dL Critically low 3.4-5.0 [facility] Comment on above: Performed By: #### P OCGLUC #### [facility] [address] [place], [place] [id number] Dr. Roscoe Segal Albumin/Globulin [Mass ratio] 0.8 {ratio} Normal [facility] Comment on above: Performed By: #### P OCGLUC #### [facility] [address] [address] [address] Roscoe Segal ALP [Catalytic activity/Vol] 77 U/L Normal 46-116 [facility] Comment on above: Performed By: #### P OCGLUC #### [facility] [address] [address] [address] Roscoe Segal ALT [Catalytic activity/Vol] 14 U/L Normal 14-59 [facility] Comment on above: Performed By: #### P OCGLUC #### [facility] [address] [place] [address] Dr. Roscoe Segal Anion gap [Moles/Vol] 13.4 mmol/L Normal [facility] Comment on above: Performed By: #### P OCGLUC #### [facility] [address] [address] [address] Roscoe Segal AST [Catalytic activity/Vol] 7 U/L Critically low 15-37 [facility] Comment on above: Performed By: #### P OCGLUC #### [facility] [address] [place] [address] Dr. Roscoe Segal Bilirubin [Mass/Vol] 0.1 mg/dL Critically low 0.2-1.0 [facility] Comment on above: Performed By: #### P OCGLUC #### [facility] [address] [address] [address] Roscoe Segal Calcium [Mass/Vol] 8.9 mg/dL Normal 8.5-10.1 [facility] Comment on above: Performed By: #### P OCGLUC #### [facility] [address] [place] [address] Dr. Roscoe Segal Chloride [Moles/Vol] 105 mmol/L Normal 98-107 [facility] Comment on above: Performed By: #### P OCGLUC #### [facility] [address] [place] [address] Dr. Roscoe Segal CO2 [Moles/Vol] 21.8 mmol/L Normal 21.0-32.0 [facility] Comment on above: Performed By: #### P OCGLUC #### [facility] [address] [address] [address] Roscoe Segal Creatinine [Mass/Vol] 0.94 mg/dL Normal 0.55-1.02 [facility] Comment on above: Performed By: #### P OCGLUC #### [facility] [address] [address] [address] Roscoe Segal EGFR-AF COMORAN >60 Normal >=60 [facility] Comment on above: Performed By: #### P OCGLUC #### [facility] [address] [address] [address] Roscoe Segal EGFR-NON AF COMORAN >60 Normal >=60 [facility] Comment on above: Performed By: #### P OCGLUC #### [facility] [address] [address] [address] Roscoe Segal Globulin (S) [Mass/Vol] 3.7 g/dL Normal [facility] Comment on above: Performed By: #### P OCGLUC #### [facility] [address] [address] [address] Roscoe Segal Glucose [Mass/Vol] 283 mg/dL Critically high 74-106 [facility] Comment on above: Performed By: #### P OCGLUC #### [facility] [address] [address] [address] Roscoe Segal Potassium [Moles/Vol] 4.2 mmol/L Normal 3.5-5.1 [facility] Comment on above: Performed By: #### P OCGLUC #### [facility] [address] [address] [address] Roscoe Segal Protein [Mass/Vol] 6.7 g/dL Normal 6.4-8.2 [facility] Comment on above: Performed By: #### P OCGLUC #### [facility] [address] [address] [address] Roscoe Segal Sodium [Moles/Vol] 136 mmol/L Normal 136-145 [facility] Comment on above: Performed By: #### P OCGLUC #### [facility] [address] [address] [address] Roscoe Segal Urea nitrogen [Mass/Vol] 16.0 mg/dL Normal 7.0-18.0 [facility] Comment on above: Performed By: #### P OCGLUC #### [facility] [address] [address] [address] Roscoe Segal Urea nitrogen/Creatinine [Mass ratio] 17.0 mg/mg Normal [facility] Comment on above: Performed By: #### P OCGLUC #### [facility] [address] [address] [address] Roscoe Segal TROPONIN, HIGH SENSITIVITYon 04-27-2022 HSTROP 7.2 pg/mL Normal 4.0-51.3 [facility] Comment on above: Result Comment: CUT- OFF POINTS HAVE BEEN ESTABLISHED BASED ON THE FOURTH UNIVERSAL DEFINITIONS OF MYOCARDIAL INFARCTION. THE UPPER REFERENCE LIMIT (URL) OF TROPONIN, DEFINED THE 99TH PERCENTILE OF cTnI DISTRIBUTION IN A REFERENCE POPULATION, HAS BEEN CONFIRMED THE DECISION THRESHOLD FOR OR DIAGNOSIS. Performed By: #### P OCGLUC #### [facility] [address] [address] [address] Roscoe Segal XR CHEST 1 Von [...] by: GERMAINE FARRELL Date: 2022-04-27 17:[address] [facility] CBC AUTO DIFFon 04-25-2022 BASO # 0.1 103/ul Normal 0.0-0.1 [facility] Comment on above: Performed By: #### P OCGLUC #### [facility] [address] [address] [address] Roscoe Segal Basophils/100 WBC (Bld) 0.4 % Normal 0.2-2.0 [facility] Comment on above: Performed By: #### P OCGLUC #### [facility] [address] [address] [address] Roscoe Segal EO # 0.1 103/ul Normal 0.0-0.7 [facility] Comment on above: Performed By: #### P OCGLUC #### [facility] [address] [address] [address] Roscoe Segal Eosinophils/100 WBC (Bld) 0.7 % Critically low 0.9-7.0 [facility] Comment on above: Performed By: #### P OCGLUC #### [facility] [address] [place] [address] Dr. Roscoe Segal Erythrocyte distribution width (RBC) [Ratio] 14.1 % Normal 11.0-15.0 [facility] Comment on above: Performed By: #### P OCGLUC #### [facility] [address] [place] [address] Dr. Roscoe Segal Hematocrit (Bld) [Volume fraction] 43.8 % Normal 36.0-48.0 [facility] Comment on above: Performed By: #### P OCGLUC #### [facility] [address] [address] [address] Roscoe Segal Hemoglobin (Bld) [Mass/Vol] 14.6 g/dL Normal 12.0-16.0 [facility] Comment on above: Performed By: #### P OCGLUC #### [facility] [address] [place] [address] Dr. Roscoe Segal IG # 0.09 10e3/ul Critically high 0.00-0.03 [facility] Comment on above: Performed By: #### P OCGLUC #### [facility] [address] [address] [address] Roscoe Segal IG % 0.6 % Critically high 0.0-0.5 [facility] Comment on above: Performed By: #### P OCGLUC #### [facility] [address] [address] [address] Roscoe Segal LYMPH # 1.5 103/ul Normal 1.2-3.8 [facility] Comment on above: Performed By: #### P OCGLUC #### [facility] [address] [address] [address] Roscoe Segal Lymphocytes/100 WBC (Bld) 9.9 % Critically low 20.5-60.0 [facility] Comment on above: Performed By: #### P OCGLUC #### [facility] [address] [address] [address] Roscoe Segal MANUAL DIFF REQ NO Normal [facility] Comment on above: Performed By: #### P OCGLUC #### [facility] [address] [address] [address] Roscoe Segal MCH (RBC) [Entitic mass] 31.8 pg Normal 26.7-34.0 [facility] Comment on above: Performed By: #### P OCGLUC #### [facility] [address] [address] [address] Roscoe Segal MCHC (RBC) [Mass/Vol] 33.3 g/dL Normal 29.9-35.2 [facility] Comment on above: Performed By: #### P OCGLUC #### [facility] [address] [address] [address] Roscoe Segal MCV (RBC) [Entitic vol] 95.4 fL Normal 81.0-99.0 [facility] Comment on above: Performed By: #### P OCGLUC #### [facility] [address] [address] [address] Roscoe Segal MONO # 1.2 103/ul Critically high 0.3-0.8 [facility] Comment on above: Performed By: #### P OCGLUC #### [facility] [address] [address] [address] Roscoe Segal Monocytes/100 WBC (Bld) 8.0 % Normal 1.7-12.0 [facility] Comment on above: Performed By: #### P OCGLUC #### [facility] [address] [place] [address] Dr. Roscoe Segal NEUT # 11.8 103/ul Critically high 1.4-6.5 [facility] Comment on above: Performed By: #### P OCGLUC #### [facility] [address] [place] [address] Dr. Roscoe Segal Neutrophils/100 WBC (Bld) 80.4 % Critically high 43.0-75.0 [facility] Comment on above: Performed By: #### P OCGLUC #### [facility] [address] [place] [address] Dr. Roscoe Segal Platelet mean volume (Bld) [Entitic vol] 8.9 fL Critically low 9.5-13.5 [facility] Comment on above: Performed By: #### P OCGLUC #### [facility] [address] [place] [address] Dr. Roscoe Segal PLT 357 103/ul Normal 150-450 [facility] Comment on above: Performed By: #### P OCGLUC #### [facility] [address] [place] [address] Dr. Roscoe Segal RBC 4.59 106/ul Normal 4.20-5.40 [facility] Comment on above: Performed By: #### P OCGLUC #### [facility] [address] [place] [address] Dr. Roscoe Segal WBC 14.7 103/ul Critically high 4.0-11.0 [facility] Comment on above: Performed By: #### P OCGLUC #### [facility] [address] [place] [address] Dr. Roscoe Segal Covid-19 PCR ([facility])on 04-16 SARS-CoV-2 (COVID-19) RNA SOILA+probe Ql (Unsp spec) Not detected Normal NOT DETECTED [facility] Comment on above: Result Comment: When diagnostic [...] for this test is supported by the [employer] of Health and Human Service's declaration that [...] used). Performed By: #### P OCGLUC #### [facility] [address] [place] [address] Dr. Roscoe Segal PROF CHEM 8 (BAS METB)on Anion gap [Moles/Vol] 16.1 mmol/L Normal [facility] Comment on above: Performed By: #### B MP #### [facility] [address] [place] [address] Dr. Roscoe Segal Calcium [Mass/Vol] 9.2 mg/dL Normal 8.5-10.1 [facility] Comment on above: Performed By: #### B MP #### [facility] [address] [place] [address] Dr. Roscoe Segal Chloride [Moles/Vol] 104 mmol/L Normal 98-107 [facility] Comment on above: Performed By: #### B MP #### [facility] [address] [place] [address] Dr. Roscoe Segal CO2 [Moles/Vol] 22.5 mmol/L Normal 21.0-32.0 [facility] Comment on above: Performed By: #### B MP #### [facility] [address] [place] [address] Dr. Roscoe Segal Creatinine [Mass/Vol] 0.93 mg/dL Normal 0.55-1.02 [facility] Comment on above: Performed By: #### B MP #### [facility] [address] [address] [address] Roscoe Segal EGFR-AF COMORAN >60 Normal >=60 [facility] Comment on above: Performed By: #### B MP #### [facility] [address] [address] [address] Roscoe Segal EGFR-NON AF COMORAN >60 Normal >=60 [facility] Comment on above: Performed By: #### B MP #### [facility] [address] [address] [address] Roscoe Segal Glucose [Mass/Vol] 227 mg/dL Critically high 74-106 [facility] Comment on above: Performed By: #### B MP #### [facility] [address] [address] [address] Roscoe Segal Potassium [Moles/Vol] 3.6 mmol/L Normal 3.5-5.1 [facility] Comment on above: Performed By: #### B MP #### [facility] [address] [address] [address] Roscoe Segal Sodium [Moles/Vol] 139 mmol/L Normal 136-145 [facility] Comment on above: Performed By: #### B MP #### [facility] [address] [address] [address] Roscoe Segal Urea nitrogen [Mass/Vol] 9.0 mg/dL Normal 7.0-18.0 [facility] Comment on above: Performed By: #### B MP #### [facility] [address] [address] [address] Roscoe Segal Urea nitrogen/Creatinine [Mass ratio] 9.7 mg/mg Normal [facility] Comment on above: Performed By: #### B MP #### [facility] [address] [address] [address] Roscoe Segal XR CHEST 1 Von [...] by: GERMAINE FARRELL Date: 2022-04-25 09:41 Normal [facility] GLYCOHEMOGLOBIN A1Con 2021 ADA RECOMMENDATION SEE BELOW Normal [facility] Comment on above: Result Comment: ADA RECOMMENDED LIMIT 4.0 - 6.0 ADA THERAPEUTIC TARGET < 7.0 ACTION SUGGESTED > 7.0 Performed By: #### P OCGLUC #### [facility] [address] [address] [address] Roscoe Segal Glucose [Mass/Vol] 128 mg/dL Normal [facility] Comment on above: Performed By: #### P OCGLUC #### [facility] [address] [address] [address] Roscoe Segal HbA1c (Bld) [Mass fraction] 6.1 % Normal 4.5-6.2 [facility] Comment on above: Performed By: #### P OCGLUC #### [facility] [address] [address] [address] Roscoe Segal LIPID PROFILEon 04-10-2022 CHOL-HDL RATIO NORM SEE BELOW Normal [facility] Comment on above: Result Comment: 3.3 - 4.4 LOW RISK 4.4 - 7.1 AVERAGE RISK 7.1 - 11.0 MODERATE RISK >11.0 HIGH RISK Performed By: #### L IPID #### [facility] [address] [address] [address] Roscoe Segal Cholesterol [Mass/Vol] 125 mg/dL Normal <=200 [facility] Comment on above: Performed By: #### L IPID #### [facility] [address] [address] [address] Roscoe Segal Cholesterol in HDL [Mass/Vol] 69 mg/dL Critically high 40-60 [facility] Comment on above: Performed By: #### L IPID #### [facility] [address] [address] [address] Roscoe Segal Cholesterol in LDL [Mass/Vol] 31.8 mg/dL Normal [facility] Comment on above: Performed By: #### L IPID #### [facility] [address] [address] [address] Roscoe Segal Cholesterol.total/Chol esterol in HDL [Mass ratio] 1.8 {ratio} Normal [facility] Comment on above: Performed By: #### L IPID #### [facility] [address] [place] [address] Dr. Roscoe Segal HDL NORMAL > or = 60 mg/dl - LO W CARDIOVASCULAR RISK <40 mg/dl - HIGH CARDIOVASCULAR RISK Normal [facility] Comment on above: Performed By: #### L IPID #### [facility] [address] [place] [address] Dr. Roscoe Segal LDL CALC NORMAL SEE BELOW Normal [facility] Comment on above: Result Comment: <100 mg/dl OPTIMAL 100 - 129 mg/dl NEAR OR ABOVE OPTIMAL 130 - 159 mg/dl BORDERLINE HIGH 160 - 189 mg/dl HIGH >190 mg/dl VERY HIGH Performed By: #### L IPID #### [facility] [address] [place] [address] Dr. Roscoe Segal Triglyceride [Mass/Vol] 121 mg/dL Normal <=150 [facility] Comment on above: Performed By: #### L IPID #### [facility] [address] [place] [address] Dr. Roscoe Segal VLDL CALC 24.2 mg/dL Normal [facility] Comment on above: Performed By: #### L IPID #### [facility] [address] [place] [address] Dr. Roscoe Segal Covid-19 PCR ([facility])on 03-16 SARS-CoV-2 (COVID-19) RNA SOILA+probe Ql (Unsp spec) Not detected Normal NOT DETECTED [facility] Comment on above: Result Comment: This test is not yet approved or cleared by the [place] FDA. When there are no FDA-approved or cleared tests available, and other criteria are met, FDA can make tests available under an emergency access mechanism called an Emergency Use Authorization (EUA). The EUA for this test is supported by the [employer] of Health and Human Service's (HHS's) declaration [...] SARS-CoV-2. Performed By: #### P OCGLUC #### [facility] [address] [place] [id number] Dr. Roscoe Segal XR CHEST 1 Von [...] YASMIN HUERTAS Date: 2022-03-29 15:39 Normal [facility] CBC AUTO DIFFon 03-21-2022 BASO # 0.1 103/ul Normal 0.0-0.1 [facility] Comment on above: Performed By: #### C BC #### [facility] [address] [place] [address] Dr. Roscoe Segal Basophils/100 WBC (Bld) 0.6 % Normal 0.2-2.0 [facility] Comment on above: Performed By: #### C BC #### [facility] [address] [address] [address] Roscoe Segal EO # 0.3 103/ul Normal 0.0-0.7 [facility] Comment on above: Performed By: #### C BC #### [facility] [address] [address] [address] Roscoe Segal Eosinophils/100 WBC (Bld) 2.1 % Normal 0.9-7.0 [facility] Comment on above: Performed By: #### C BC #### [facility] [address] [address] [address] Roscoe Segal Erythrocyte distribution width (RBC) [Ratio] 14.7 % Normal 11.0-15.0 [facility] Comment on above: Performed By: #### C BC #### [facility] [address] [place] [address] Dr. Roscoe Segal Hematocrit (Bld) [Volume fraction] 47.1 % Normal 36.0-48.0 [facility] Comment on above: Performed By: #### C BC #### [facility] [address] [place] [address] Dr. Roscoe Segal Hemoglobin (Bld) [Mass/Vol] 15.6 g/dL Normal 12.0-16.0 [facility] Comment on above: Performed By: #### C BC #### [facility] [address] [address] [address] Roscoe Segal IG # 0.05 10e3/ul Critically high 0.00-0.03 [facility] Comment on above: Performed By: #### C BC #### [facility] [address] [address] [address] Roscoe Segal IG % 0.4 % Normal 0.0-0.5 [facility] Comment on above: Performed By: #### C BC #### [facility] [address] [address] [address] Roscoe Segal LYMPH # 3.9 103/ul Critically high 1.2-3.8 [facility] Comment on above: Performed By: #### C BC #### [facility] [address] [place] [address] Dr. Roscoe Segal Lymphocytes/100 WBC (Bld) 32.1 % Normal 20.5-60.0 [facility] Comment on above: Performed By: #### C BC #### [facility] [address] [place] [address] Dr. Roscoe Segal MANUAL DIFF REQ NO Normal [facility] Comment on above: Performed By: #### C BC #### [facility] [address] [place] [address] Dr. Roscoe Segal MCH (RBC) [Entitic mass] 31.9 pg Normal 26.7-34.0 [facility] Comment on above: Performed By: #### C BC #### [facility] [address] [place] [address] Dr. Roscoe Segal MCHC (RBC) [Mass/Vol] 33.1 g/dL Normal 29.9-35.2 [facility] Comment on above: Performed By: #### C BC #### [facility] [address] [place] [address] Dr. Roscoe Segal MCV (RBC) [Entitic vol] 96.3 fL Normal 81.0-99.0 [facility] Comment on above: Performed By: #### C BC #### [facility] [address] [place] [address] Dr. Roscoe Segal MONO # 0.9 103/ul Critically high 0.3-0.8 [facility] Comment on above: Performed By: #### C BC #### [facility] [address] [place] [address] Dr. Roscoe Segal Monocytes/100 WBC (Bld) 7.4 % Normal 1.7-12.0 [facility] Comment on above: Performed By: #### C BC #### [facility] [address] [place] [address] Dr. Roscoe Segal NEUT # 7.0 103/ul Critically high 1.4-6.5 [facility] Comment on above: Performed By: #### C BC #### [facility] [address] [place] [address] Dr. Roscoe Segal Neutrophils/100 WBC (Bld) 57.4 % Normal 43.0-75.0 [facility] Comment on above: Performed By: #### C BC #### [facility] [address] [place] [address] Dr. Roscoe Segal Platelet mean volume (Bld) [Entitic vol] 8.8 fL Critically low 9.5-13.5 [facility] Comment on above: Performed By: #### C BC #### [facility] [address] [place] [address] Dr. Roscoe Segal PLT 417 103/ul Normal 150-450 [facility] Comment on above: Performed By: #### C BC #### [facility] [address] [place] [address] Dr. Roscoe Segal RBC 4.89 106/ul Normal 4.20-5.40 [facility] Comment on above: Performed By: #### C BC #### [facility] [address] [place] [address] Dr. Roscoe Segal WBC 12.1 103/ul Critically high 4.0-11.0 [facility] Comment on above: Performed By: #### C BC #### [facility] [address] [place] [address] Dr. Roscoe Segal [facility]on SARS-CoV-2 (COVID-19) RNA SOILA+probe Ql (Unsp spec) Not detected Normal NOT DETECTED [facility] Comment on above: Result Comment: When diagnostic [...] for this test is supported by the [employer] of Health and Human Service's declaration that [...] used). Performed By: #### P OCGLUC #### [facility] [address] [place] [address] Dr. Roscoe Segal PROF CHEM 8 (BAS METB)on Anion gap [Moles/Vol] 13.4 mmol/L Normal [facility] Comment on above: Performed By: #### I NFLUAB #### [facility] [address] [place] [address] Dr. Roscoe Segal Calcium [Mass/Vol] 9.2 mg/dL Normal 8.5-10.1 [facility] Comment on above: Performed By: #### I NFLUAB #### [facility] [address] [place] [address] Dr. Roscoe Segal Chloride [Moles/Vol] 105 mmol/L Normal 98-107 [facility] Comment on above: Performed By: #### I NFLUAB #### [facility] [address] [place] [address] Dr. Roscoe Segal CO2 [Moles/Vol] 23.9 mmol/L Normal 21.0-32.0 [facility] Comment on above: Performed By: #### I NFLUAB #### [facility] [address] [place] [address] Dr. Roscoe Segal Creatinine [Mass/Vol] 0.93 mg/dL Normal 0.55-1.02 [facility] Comment on above: Performed By: #### I NFLUAB #### [facility] [address] [place] [address] Dr. Roscoe Segal EGFR-AF COMORAN >60 Normal >=60 [facility] Comment on above: Performed By: #### I NFLUAB #### [facility] [address] [place] [address] Dr. Roscoe Segal EGFR-NON AF COMORAN >60 Normal >=60 [facility] Comment on above: Performed By: #### I NFLUAB #### [facility] [address] [address] [address] Roscoe Segal Glucose [Mass/Vol] 141 mg/dL Critically high 74-106 [facility] Comment on above: Performed By: #### I NFLUAB #### [facility] [address] [address] [address] Roscoe Segal Potassium [Moles/Vol] 4.3 mmol/L Normal 3.5-5.1 [facility] Comment on above: Performed By: #### I NFLUAB #### [facility] [address] [place] [address] Dr. Roscoe Segal Sodium [Moles/Vol] 138 mmol/L Normal 136-145 [facility] Comment on above: Performed By: #### I NFLUAB #### [facility] [address] [place] [address] Dr. Roscoe Segal Urea nitrogen [Mass/Vol] 9.0 mg/dL Normal 7.0-18.0 [facility] Comment on above: Performed By: #### I NFLUAB #### [facility] [address] [place] [address] Dr. Roscoe Segal Urea nitrogen/Creatinine [Mass ratio] 9.7 mg/mg Normal [facility] Comment on above: Performed By: #### I NFLUAB #### [facility] [address] [place] [address] Dr. Roscoe Segal CARDIAC VICK 3-6on 2 CK [Catalytic activity/Vol] 60 U/L Normal 26-192 [facility] Comment on above: Performed By: #### P OCGLUC #### [facility] [address] [place] [address] Dr. Roscoe Segal CK.MB [Mass/Vol] 1.84 ng/mL Normal <=3.60 [facility] Comment on above: Performed By: #### P OCGLUC #### [facility] [address] [place] [address] Dr. Roscoe Segal HSTROP 8.3 pg/mL Normal 4.0-51.3 [facility] Comment on above: Result Comment: CUT- OFF POINTS HAVE BEEN ESTABLISHED BASED ON THE FOURTH UNIVERSAL DEFINITIONS OF MYOCARDIAL INFARCTION. THE UPPER REFERENCE LIMIT (URL) OF TROPONIN, DEFINED THE 99TH PERCENTILE OF cTnI DISTRIBUTION IN A REFERENCE POPULATION, HAS BEEN CONFIRMED THE DECISION THRESHOLD FOR OR DIAGNOSIS. Performed By: #### P OCGLUC #### [facility] [address] [place] [address] Dr. Roscoe Segal CK [Catalytic activity/Vol] 57 U/L Normal 26-192 [facility] Comment on above: Performed By: #### I NFLUAB #### [facility] [address] [place] [address] Dr. Roscoe Segal CK.MB [Mass/Vol] 1.82 ng/mL Normal <=3.60 [facility] Comment on above: Performed By: #### I NFLUAB #### [facility] [address] [place] [address] Dr. Roscoe Segal HSTROP 8.1 pg/mL Normal 4.0-51.3 [facility] Comment on above: Result Comment: CUT- OFF POINTS HAVE BEEN ESTABLISHED BASED ON THE FOURTH UNIVERSAL DEFINITIONS OF MYOCARDIAL INFARCTION. THE UPPER REFERENCE LIMIT (URL) OF TROPONIN, DEFINED THE 99TH PERCENTILE OF cTnI DISTRIBUTION IN A REFERENCE POPULATION, HAS BEEN CONFIRMED THE DECISION THRESHOLD FOR OR DIAGNOSIS. Performed By: #### I NFLUAB #### [facility] [address] [place] [address] Dr. Roscoe Segal CARDIAC VICK ADMITon 022 CK [Catalytic activity/Vol] 64 U/L Normal 26-192 [facility] Comment on above: Performed By: #### P OCGLUC #### [facility] [address] [place] [address] Dr. Roscoe Segal CK.MB [Mass/Vol] 2.19 ng/mL Normal <=3.60 [facility] Comment on above: Performed By: #### P OCGLUC #### [facility] [address] [place] [address] Dr. Roscoe Segal HSTROP 7.6 pg/mL Normal 4.0-51.3 [facility] Comment on above: Result Comment: CUT- OFF POINTS HAVE BEEN ESTABLISHED BASED ON THE FOURTH UNIVERSAL DEFINITIONS OF MYOCARDIAL INFARCTION. THE UPPER REFERENCE LIMIT (URL) OF TROPONIN, DEFINED THE 99TH PERCENTILE OF cTnI DISTRIBUTION IN A REFERENCE POPULATION, HAS BEEN CONFIRMED THE DECISION THRESHOLD FOR OR DIAGNOSIS. Performed By: #### P OCGLUC #### [facility] [address] [place] [address] Dr. Roscoe Segal GWEN 50 ng/mL Normal 9-82 [facility] Comment on above: Performed By: #### P OCGLUC #### [facility] [address] [place] [address] Dr. Roscoe Segal CBC AUTO DIFFon 03-03-2022 BASO # 0.1 103/ul Normal 0.0-0.1 [facility] Comment on above: Performed By: #### P OCGLUC #### [facility] [address] [place] [address] Dr. Roscoe Segal Basophils/100 WBC (Bld) 0.7 % Normal 0.2-2.0 [facility] Comment on above: Performed By: #### P OCGLUC #### [facility] [address] [place] [address] Dr. Roscoe Segal EO # 0.2 103/ul Normal 0.0-0.7 [facility] Comment on above: Performed By: #### P OCGLUC #### [facility] [address] [place] [address] Dr. Roscoe Segal Eosinophils/100 WBC (Bld) 1.3 % Normal 0.9-7.0 [facility] Comment on above: Performed By: #### P OCGLUC #### [facility] [address] [place] [address] Dr. Roscoe Segal Erythrocyte distribution width (RBC) [Ratio] 14.5 % Normal 11.0-15.0 [facility] Comment on above: Performed By: #### P OCGLUC #### [facility] [address] [place] [address] Dr. Roscoe Segal Hematocrit (Bld) [Volume fraction] 44.8 % Normal 36.0-48.0 [facility] Comment on above: Performed By: #### P OCGLUC #### [facility] [address] [place] [address] Dr. Rosceo Segal Hemoglobin (Bld) [Mass/Vol] 15.0 g/dL Normal 12.0-16.0 [facility] Comment on above: Performed By: #### P OCGLUC #### [facility] [address] [address] [address] Roscoe Segal IG # 0.07 10e3/ul Critically high 0.00-0.03 [facility] Comment on above: Performed By: #### P OCGLUC #### [facility] [address] [place] [address] Dr. Roscoe Segal IG % 0.6 % Critically high 0.0-0.5 [facility] Comment on above: Performed By: #### P OCGLUC #### [facility] [address] [place] [address] Dr. Roscoe Segal LYMPH # 4.7 103/ul Critically high 1.2-3.8 [facility] Comment on above: Performed By: #### P OCGLUC #### [facility] [address] [place] [address] Dr. Roscoe Segal Lymphocytes/100 WBC (Bld) 38.7 % Normal 20.5-60.0 [facility] Comment on above: Performed By: #### P OCGLUC #### [facility] [address] [place] [address] Dr. Roscoe Segal MANUAL DIFF REQ NO Normal [facility] Comment on above: Performed By: #### P OCGLUC #### [facility] [address] [place] [address] Dr. Roscoe Segal MCH (RBC) [Entitic mass] 32.1 pg Normal 26.7-34.0 [facility] Comment on above: Performed By: #### P OCGLUC #### [facility] [address] [place] [address] Dr. Roscoe Segal MCHC (RBC) [Mass/Vol] 33.5 g/dL Normal 29.9-35.2 [facility] Comment on above: Performed By: #### P OCGLUC #### [facility] [address] [place] [address] Dr. Roscoe Segal MCV (RBC) [Entitic vol] 95.7 fL Normal 81.0-99.0 [facility] Comment on above: Performed By: #### P OCGLUC #### [facility] [address] [place] [address] Dr. Roscoe Segal MONO # 1.0 103/ul Critically high 0.3-0.8 [facility] Comment on above: Performed By: #### P OCGLUC #### [facility] [address] [place] [address] Dr. Roscoe Segal Monocytes/100 WBC (Bld) 7.9 % Normal 1.7-12.0 [facility] Comment on above: Performed By: #### P OCGLUC #### [facility] [address] [place] [address] Dr. Roscoe Segal NEUT # 6.2 103/ul Normal 1.4-6.5 [facility] Comment on above: Performed By: #### P OCGLUC #### [facility] [address] [place] [address] Dr. Roscoe Segal Neutrophils/100 WBC (Bld) 50.8 % Normal 43.0-75.0 [facility] Comment on above: Performed By: #### P OCGLUC #### [facility] [address] [place] [address] Dr. Roscoe Segal Platelet mean volume (Bld) [Entitic vol] 8.8 fL Critically low 9.5-13.5 [facility] Comment on above: Performed By: #### P OCGLUC #### [facility] [address] [place] [address] Dr. Roscoe Segal PLT 407 103/ul Normal 150-450 [facility] Comment on above: Performed By: #### P OCGLUC #### [facility] [address] [place] [address] Dr. Roscoe Segal RBC 4.68 106/ul Normal 4.20-5.40 [facility] Comment on above: Performed By: #### P OCGLUC #### [facility] [address] [address] [address] Roscoe Segal WBC 12.2 103/ul Critically high 4.0-11.0 [facility] Comment on above: Performed By: #### P OCGLUC #### [facility] [address] [place] [address] Dr. Roscoe Segal LACTATE/LACTIC ACIDon 2021 Lactate [Moles/Vol] 2.1 mmol/L Critically high 0.4-1.9 [facility] Comment on above: Performed By: #### P OCGLUC #### [facility] [address] [place] [address] Dr. Roscoe Segal Lactate [Moles/Vol] 2.2 mmol/L Critically high 0.4-1.9 [facility] Comment on above: Performed By: #### P OCGLUC #### [facility] [address] [place] [address] Dr. Roscoe Segal POINT OF CARE GLUCOSEon 02-13 Glucose [Mass/Vol] 109 mg/dL Critically high 74-106 [facility] Comment on above: Performed By: #### P OCGLUC #### [facility] [address] [place] [address] Dr. Roscoe Segal Glucose [Mass/Vol] 108 mg/dL Critically high 74-106 [facility] Comment on above: Performed By: #### P OCGLUC #### [facility] [address] [place] [address] Dr. Roscoe Segal Glucose [Mass/Vol] 98 mg/dL Normal 74-106 [facility] Comment on above: Performed By: #### I NFLUAB #### [facility] [address] [place] [address] Dr. Roscoe Segal Glucose [Mass/Vol] 274 mg/dL Critically high 74-106 [facility] Comment on above: Performed By: #### C BC #### [facility] [address] [place] [address] Dr. Roscoe Segal Glucose [Mass/Vol] 87 mg/dL Normal 74-106 [facility] Comment on above: Performed By: #### P OCGLUC #### [facility] [address] [address] [address] Roscoe Segal Glucose [Mass/Vol] 98 mg/dL Normal 74-106 [facility] Comment on above: Performed By: #### P OCGLUC #### [facility] [address] [address] [address] Roscoe Segal Glucose [Mass/Vol] 131 mg/dL Critically high 74-106 [facility] Comment on above: Performed By: #### P OCGLUC #### [facility] [address] [address] [address] Roscoe Segal Glucose [Mass/Vol] 59 mg/dL Critically low 74-106 [facility] Comment on above: Performed By: #### P OCGLUC #### [facility] [address] [address] [address] Roscoe Segal Glucose [Mass/Vol] 95 mg/dL Normal 74-106 [facility] Comment on above: Performed By: #### P OCGLUC #### [facility] [address] [place] [address] Dr. Roscoe Segal PROF CHEM 8 (BAS METB)on Anion gap [Moles/Vol] 15.2 mmol/L Normal [facility] Comment on above: Performed By: #### P OCGLUC #### [facility] [address] [address] [address] Roscoe Segal Calcium [Mass/Vol] 8.7 mg/dL Normal 8.5-10.1 [facility] Comment on above: Performed By: #### P OCGLUC #### [facility] [address] [place] [address] Dr. Roscoe Segal Chloride [Moles/Vol] 108 mmol/L Critically high 98-107 [facility] Comment on above: Performed By: #### P OCGLUC #### [facility] [address] [place] [address] Dr. Roscoe Segal CO2 [Moles/Vol] 20.8 mmol/L Critically low 21.0-32.0 [facility] Comment on above: Performed By: #### P OCGLUC #### [facility] [address] [address] [address] Roscoe Segal Creatinine [Mass/Vol] 1.21 mg/dL Critically high 0.55-1.02 [facility] Comment on above: Performed By: #### P OCGLUC #### [facility] [address] [address] [address] Roscoe Segal EGFR-AF COMORAN 58 mL/min/1.73m2 Critically low >=60 [facility] Comment on above: Performed By: #### P OCGLUC #### [facility] [address] [address] [address] Roscoe Segal EGFR-NON AF COMORAN 48 mL/min/1.73m2 Critically low >=60 [facility] Comment on above: Performed By: #### P OCGLUC #### [facility] [address] [address] [address] Roscoe Segal Glucose [Mass/Vol] 54 mg/dL Critically low 74-106 [facility] Comment on above: Performed By: #### P OCGLUC #### [facility] [address] [address] [address] Roscoe Segal Potassium [Moles/Vol] 3.0 mmol/L Critically low 3.5-5.1 [facility] Comment on above: Performed By: #### P OCGLUC #### [facility] [address] [address] [address] Roscoe Segal Sodium [Moles/Vol] 141 mmol/L Normal 136-145 [facility] Comment on above: Performed By: #### P OCGLUC #### [facility] [address] [address] [address] Roscoe Segal Urea nitrogen [Mass/Vol] 11.0 mg/dL Normal 7.0-18.0 [facility] Comment on above: Performed By: #### P OCGLUC #### [facility] [address] [address] [address] Roscoe Segal Urea nitrogen/Creatinine [Mass ratio] 9.1 mg/mg Normal [facility] Comment on above: Performed By: #### P OCGLUC #### [facility] [address] [address] [address] Roscoe Segal XR CHEST 1 Von [...] as clinically indicated. Electronically authenticated by: JUAN SAID Date: 2022-03-03 01:14 Normal [facility] CBC AUTO DIFFon 01-01-2022 BASO # 0.1 103/ul Normal 0.0-0.1 [facility] Comment on above: Performed By: #### P OCGLUC #### [facility] [address] [address] [address] Roscoe Segal Basophils/100 WBC (Bld) 0.7 % Normal 0.2-2.0 [facility] Comment on above: Performed By: #### P OCGLUC #### [facility] [address] [place] [address] Dr. Roscoe Segal EO # 0.1 103/ul Normal 0.0-0.7 [facility] Comment on above: Performed By: #### P OCGLUC #### [facility] [address] [address] [address] Roscoe Segal Eosinophils/100 WBC (Bld) 0.9 % Normal 0.9-7.0 [facility] Comment on above: Performed By: #### P OCGLUC #### [facility] [address] [place] [address] Dr. Roscoe Segal Erythrocyte distribution width (RBC) [Ratio] 14.5 % Normal 11.0-15.0 [facility] Comment on above: Performed By: #### P OCGLUC #### [facility] [address] [address] [address] Roscoe Segal Hematocrit (Bld) [Volume fraction] 41.4 % Normal 36.0-48.0 [facility] Comment on above: Performed By: #### P OCGLUC #### [facility] [address] [address] [address] Roscoe Segal Hemoglobin (Bld) [Mass/Vol] 13.4 g/dL Normal 12.0-16.0 [facility] Comment on above: Performed By: #### P OCGLUC #### [facility] [address] [address] [address] Roscoe Segal IG # 0.08 10e3/ul Critically high 0.00-0.03 [facility] Comment on above: Performed By: #### P OCGLUC #### [facility] [address] [place] [address] Dr. Roscoe Segal IG % 0.7 % Critically high 0.0-0.5 [facility] Comment on above: Performed By: #### P OCGLUC #### [facility] [address] [place] [address] Dr. Roscoe Segal LYMPH # 2.4 103/ul Normal 1.2-3.8 [facility] Comment on above: Performed By: #### P OCGLUC #### [facility] [address] [place] [address] Dr. Roscoe Segal Lymphocytes/100 WBC (Bld) 22.0 % Normal 20.5-[facility] [facility] Comment on above: Performed By: #### P OCGLUC #### [facility] [address] [place] [address] Dr. Roscoe Segal MANUAL DIFF REQ NO Normal [facility] Comment on above: Performed By: #### P OCGLUC #### [facility] [address] [place] [address] Dr. Roscoe Segal MCH (RBC) [Entitic mass] 31.2 pg Normal 26.7-34.0 [facility] Comment on above: Performed By: #### P OCGLUC #### [facility] [address] [address] [address] Roscoe Segal MCHC (RBC) [Mass/Vol] 32.4 g/dL Normal 29.9-35.2 [facility] Comment on above: Performed By: #### P OCGLUC #### [facility] [address] [address] [address] Roscoe Segal MCV (RBC) [Entitic vol] 96.3 fL Normal 81.0-99.0 [facility] Comment on above: Performed By: #### P OCGLUC #### [facility] [address] [address] [address] Roscoe Segal MONO # 0.9 103/ul Critically high 0.3-0.8 [facility] Comment on above: Performed By: #### P OCGLUC #### [facility] [address] [place] [address] Dr. Roscoe Segal Monocytes/100 WBC (Bld) 7.7 % Normal 1.7-12.0 [facility] Comment on above: Performed By: #### P OCGLUC #### [facility] [address] [address] [address] Roscoe Segal NEUT # 7.5 103/ul Critically high 1.4-6.5 [facility] Comment on above: Performed By: #### P OCGLUC #### [facility] [address] [address] [address] Roscoe Segal Neutrophils/100 WBC (Bld) 68.0 % Normal 43.0-75.0 [facility] Comment on above: Performed By: #### P OCGLUC #### [facility] [address] [address] [address] Roscoe Segal Platelet mean volume (Bld) [Entitic vol] 8.8 fL Critically low 9.5-13.5 [facility] Comment on above: Performed By: #### P OCGLUC #### [facility] [address] [address] [address] Roscoe Segal PLT 317 103/ul Normal 150-450 [facility] Comment on above: Performed By: #### P OCGLUC #### [facility] [address] [place] [address] Dr. Roscoe Segal RBC 4.30 106/ul Normal 4.20-5.40 [facility] Comment on above: Performed By: #### P OCGLUC #### [facility] [address] [place] [address] Dr. Roscoe Segal WBC 11.1 103/ul Critically high 4.0-11.0 [facility] Comment on above: Performed By: #### P OCGLUC #### [facility] [address] [place] [address] Dr. Roscoe Segal Covid-19 PCR (CVDTB)on 12-14 SARS-CoV-2 (COVID-19) RNA SOILA+probe Ql (Unsp spec) Not detected Normal NOT DETECTED [facility] Comment on above: Result Comment: When diagnostic [...] for this test is supported by the [place] of Health and Human Service's declaration that [...] used). Performed By: #### P OCGLUC #### [facility] [address] [place] [address] Dr. Roscoe Segal ETHANOL (BLD ALC)on 01-02-20 22 ALC NOTE NOTE: 80 mg/dl is th e legal limit for a blood alcohol level Normal [facility] Comment on above: Performed By: #### C BC #### [facility] [address] [place] [address] Dr. Roscoe Segal Ethanol [Mass/Vol] 197 mg/dL Normal [facility] Comment on above: Performed By: #### C BC #### [facility] [address] [address] [address] Roscoe Segal PROF CHEM 8 (BAS METB)on Anion gap [Moles/Vol] 16.4 mmol/L Normal [facility] Comment on above: Performed By: #### I NFLUAB #### [facility] [address] [place] [address] Dr. Roscoe Segal Calcium [Mass/Vol] 8.2 mg/dL Critically low 8.5-10.1 [facility] Comment on above: Performed By: #### I NFLUAB #### [facility] [address] [place] [address] Dr. Roscoe Segal Chloride [Moles/Vol] 107 mmol/L Normal 98-107 [facility] Comment on above: Performed By: #### I NFLUAB #### [facility] [address] [place] [address] Dr. Roscoe Segal CO2 [Moles/Vol] 21.3 mmol/L Normal 21.0-32.0 [facility] Comment on above: Performed By: #### I NFLUAB #### [facility] [address] [place] [address] Dr. Roscoe Segal Creatinine [Mass/Vol] 0.78 mg/dL Normal 0.55-1.02 [facility] Comment on above: Performed By: #### I NFLUAB #### [facility] [address] [place] [address] Dr. Roscoe Segal EGFR-AF COMORAN >60 Normal >=60 [facility] Comment on above: Performed By: #### I NFLUAB #### [facility] [address] [place] [address] Dr. Roscoe Segal EGFR-NON AF COMORAN >60 Normal >=60 [facility] Comment on above: Performed By: #### I NFLUAB #### [facility] [address] [place] [address] Dr. Roscoe Segal Glucose [Mass/Vol] 310 mg/dL Critically high 74-106 [facility] Comment on above: Performed By: #### I NFLUAB #### [facility] [address] [address] [address] Roscoe Segal Potassium [Moles/Vol] 3.7 mmol/L Normal 3.5-5.1 [facility] Comment on above: Performed By: #### I NFLUAB #### [facility] [address] [address] [address] Roscoe Segal Sodium [Moles/Vol] 141 mmol/L Normal 136-145 [facility] Comment on above: Performed By: #### I NFLUAB #### [facility] [address] [place] [address] Dr. Roscoe Segal Urea nitrogen [Mass/Vol] 8.0 mg/dL Normal 7.0-18.0 [facility] Comment on above: Performed By: #### I NFLUAB #### [facility] [address] [place] [address] Dr. Roscoe Segal Urea nitrogen/Creatinine [Mass ratio] 10.3 mg/mg Normal [facility] Comment on above: Performed By: #### I NFLUAB #### [facility] [address] [place] [address] Dr. Roscoe Segal XR CHEST 1 Von [...] GERMAINE FARRELL Date: 2022-01-01 19:08 Normal [facility] CBC AUTO DIFFon 12-24-2021 BASO # 0.1 103/ul Normal 0.0-0.1 [facility] Comment on above: Performed By: #### I NFLUAB #### [facility] [address] [place] [address] Dr. Roscoe Segal Basophils/100 WBC (Bld) 0.9 % Normal 0.2-2.0 [facility] Comment on above: Performed By: #### I NFLUAB #### [facility] [address] [place] [address] Dr. Roscoe Segal EO # 0.2 103/ul Normal 0.0-0.7 [facility] Comment on above: Performed By: #### I NFLUAB #### [facility] [address] [place] [address] Dr. Roscoe Segal Eosinophils/100 WBC (Bld) 2.4 % Normal 0.9-7.0 [facility] Comment on above: Performed By: #### I NFLUAB #### [facility] [address] [place] [address] Dr. Roscoe Segal Erythrocyte distribution width (RBC) [Ratio] 14.8 % Normal 11.0-15.0 [facility] Comment on above: Performed By: #### I NFLUAB #### [facility] [address] [place] [address] Dr. Roscoe Segal Hematocrit (Bld) [Volume fraction] 41.1 % Normal 36.0-48.0 [facility] Comment on above: Performed By: #### I NFLUAB #### [facility] [address] [place] [address] Dr. Roscoe Segal Hemoglobin (Bld) [Mass/Vol] 13.0 g/dL Normal 12.0-16.0 [facility] Comment on above: Performed By: #### I NFLUAB #### [facility] [address] [place] [address] Dr. Roscoe Segal IG # 0.10 10e3/ul Critically high 0.00-0.03 [facility] Comment on above: Performed By: #### I NFLUAB #### [facility] [address] [place] [address] Dr. Roscoe Segal IG % 1.1 % Critically high 0.0-0.5 [facility] Comment on above: Performed By: #### I NFLUAB #### [facility] [address] [place] [address] Dr. Roscoe Segal LYMPH # 2.0 103/ul Normal 1.2-3.8 [facility] Comment on above: Performed By: #### I NFLUAB #### [facility] [address] [place] [address] Dr. Roscoe Segal Lymphocytes/100 WBC (Bld) 21.5 % Normal 20.5-60.0 [facility] Comment on above: Performed By: #### I NFLUAB #### [facility] [address] [place] [address] Dr. Roscoe Segal MANUAL DIFF REQ NO Normal [facility] Comment on above: Performed By: #### I NFLUAB #### [facility] [address] [place] [address] Dr. Roscoe Segal MCH (RBC) [Entitic mass] 31.0 pg Normal 26.7-34.0 [facility] Comment on above: Performed By: #### I NFLUAB #### [facility] [address] [place] [address] Dr. Roscoe Segal MCHC (RBC) [Mass/Vol] 31.6 g/dL Normal 29.9-35.2 [facility] Comment on above: Performed By: #### I NFLUAB #### [facility] [address] [place] [address] Dr. Roscoe Segal MCV (RBC) [Entitic vol] 98.1 fL Normal 81.0-99.0 [facility] Comment on above: Performed By: #### I NFLUAB #### [facility] [address] [place] [address] Dr. Roscoe Segal MONO # 0.8 103/ul Normal 0.3-0.8 [facility] Comment on above: Performed By: #### I NFLUAB #### [facility] [address] [place] [address] Dr. Roscoe Segal Monocytes/100 WBC (Bld) 8.9 % Normal 1.7-12.0 [facility] Comment on above: Performed By: #### I NFLUAB #### [facility] [address] [address] [address] Roscoe Segal NEUT # 6.0 103/ul Normal 1.4-6.5 [facility] Comment on above: Performed By: #### I NFLUAB #### [facility] [address] [address] [address] Roscoe Segal Neutrophils/100 WBC (Bld) 65.2 % Normal 43.0-75.0 [facility] Comment on above: Performed By: #### I NFLUAB #### [facility] [address] [place] [address] Dr. Roscoe Segal Platelet mean volume (Bld) [Entitic vol] 9.4 fL Critically low 9.5-13.5 [facility] Comment on above: Performed By: #### I NFLUAB #### [facility] [address] [place] [address] Dr. Roscoe Segal PLT 332 103/ul Normal 150-450 [facility] Comment on above: Performed By: #### I NFLUAB #### [facility] [address] [place] [address] Dr. Roscoe Segal RBC 4.19 106/ul Critically low 4.20-5.40 [facility] Comment on above: Performed By: #### I NFLUAB #### [facility] [address] [address] [address] Roscoe Segal WBC 9.2 103/ul Normal 4.0-11.0 [facility] Comment on above: Performed By: #### I NFLUAB #### [facility] [address] [place] [address] Dr. Roscoe Segal GLYCOHEMOGLOBIN A1Con 2021 ADA RECOMMENDATION SEE BELOW Normal [facility] Comment on above: Result Comment: ADA RECOMMENDED LIMIT 4.0 - 6.0 ADA THERAPEUTIC TARGET < 7.0 ACTION SUGGESTED > 7.0 Performed By: #### C BC #### [facility] [address] [place], [place] [address] Dr. Roscoe Segal Glucose [Mass/Vol] 217 mg/dL Normal [facility] Comment on above: Performed By: #### C BC #### [facility] [address] [id number] Roscoe Segal HbA1c (Bld) [Mass fraction] 9.2 % Critically high 4.5-6.2 [facility] Comment on above: Performed By: #### C BC #### [facility] [address] [address] [address] Roscoe Segal LIPID PROFILEon 12-24-2021 CHOL-HDL RATIO NORM SEE BELOW [facility] Comment on above: Result Comment: 3.3 - 4.4 LOW RISK 4.4 - 7.1 AVERAGE RISK 7.1 - 11.0 MODERATE RISK >11.0 HIGH RISK Performed By: #### C BC #### [facility] [address] [place] [address] Dr. Roscoe Segal Cholesterol [Mass/Vol] 191 mg/dL Normal <=200 [facility] Comment on above: Performed By: #### C BC #### [facility] [address] [place] [address] Dr. Roscoe Segal Cholesterol in HDL [Mass/Vol] 52 mg/dL Normal 40-60 [facility] Comment on above: Performed By: #### C BC #### [facility] [address] [address] [address] Roscoe Segal Cholesterol in LDL [Mass/Vol] 95.6 mg/dL Normal [facility] Comment on above: Performed By: #### C BC #### [facility] [address] [address] [address] Roscoe Segal Cholesterol.total/Chol esterol in HDL [Mass ratio] 3.7 {ratio} Normal [facility] Comment on above: Performed By: #### C BC #### [facility] [address] [place] [address] Dr. Roscoe Segal HDL NORMAL > or = 60 mg/dl - LO W CARDIOVASCULAR RISK <40 mg/dl - HIGH CARDIOVASCULAR RISK Normal [facility] Comment on above: Performed By: #### C BC #### [facility] [address] [address] [address] Roscoe Segal LDL CALC NORMAL SEE BELOW Normal [facility] Comment on above: Result Comment: <100 mg/dl OPTIMAL 100 - 129 mg/dl NEAR OR ABOVE OPTIMAL 130 - 159 mg/dl BORDERLINE HIGH 160 - 189 mg/dl HIGH >190 mg/dl VERY HIGH Performed By: #### C BC #### [facility] [address] [place] [address] Dr. Roscoe Segal Triglyceride [Mass/Vol] 217 mg/dL Critically high <=150 [facility] Comment on above: Performed By: #### C BC #### [facility] [address] [place] [address] Dr. Roscoe Segal VLDL CALC 43.4 mg/dL Normal [facility] Comment on above: Performed By: #### C BC #### [facility] [address] [place] [address] Dr. Roscoe Segal MICROALBUMIN, RAND URon 12-14 mALB <1.3 Normal <=30.0 [facility] Comment on above: Performed By: #### P OCGLUC #### [facility] [address] [place] [address] Dr. Roscoe Segal PROF 14(COMP METB)on 022 Albumin [Mass/Vol] 3.0 g/dL Critically low 3.4-5.0 [facility] Comment on above: Performed By: #### C BC #### [facility] [address] [place] [address] Dr. Roscoe Segal Albumin/Globulin [Mass ratio] 0.9 {ratio} Normal [facility] Comment on above: Performed By: #### C BC #### [facility] [address] [place] [address] Dr. Roscoe Segal ALP [Catalytic activity/Vol] 72 U/L Normal 46-116 [facility] Comment on above: Performed By: #### C BC #### [facility] [address] [place] [address] Dr. Roscoe Segal ALT [Catalytic activity/Vol] 17 U/L Normal 14-59 [facility] Comment on above: Performed By: #### C BC #### [facility] [address] [address] [address] Roscoe Segal Anion gap [Moles/Vol] 12.3 mmol/L Normal [facility] Comment on above: Performed By: #### C BC #### [facility] [address] [address] [address] Roscoe Segal AST [Catalytic activity/Vol] 15 U/L Normal 15-37 [facility] Comment on above: Performed By: #### C BC #### [facility] [address] [place] [address] Dr. Roscoe Segal Bilirubin [Mass/Vol] 0.1 mg/dL Critically low 0.2-1.0 [facility] Comment on above: Performed By: #### C BC #### [facility] [address] [place] [address] Dr. Roscoe Segal Calcium [Mass/Vol] 8.9 mg/dL Normal 8.5-10.1 [facility] Comment on above: Performed By: #### C BC #### [facility] [address] [place] [address] Dr. Roscoe Segal Chloride [Moles/Vol] 102 mmol/L Normal 98-107 [facility] Comment on above: Performed By: #### C BC #### [facility] [address] [address] [address] Roscoe Segal CO2 [Moles/Vol] 24.0 mmol/L Normal 21.0-32.0 [facility] Comment on above: Performed By: #### C BC #### [facility] [address] [place] [address] Dr. Roscoe Segal Creatinine [Mass/Vol] 0.91 mg/dL Normal 0.55-1.02 [facility] Comment on above: Performed By: #### C BC #### [facility] [address] [place] [address] Dr. Roscoe Segal EGFR-AF COMORAN >60 Normal >=60 [facility] Comment on above: Performed By: #### C BC #### [facility] [address] [address] [address] Roscoe Segal EGFR-NON AF COMORAN >60 Normal >=60 [facility] Comment on above: Performed By: #### C BC #### [facility] [address] [address] [address] Roscoe Segal Globulin (S) [Mass/Vol] 3.4 g/dL Normal [facility] Comment on above: Performed By: #### C BC #### [facility] [address] [address] [address] Roscoe Segal Glucose [Mass/Vol] 309 mg/dL Critically high 74-106 [facility] Comment on above: Performed By: #### C BC #### [facility] [address] [address] [address] Roscoe Segal Potassium [Moles/Vol] 4.3 mmol/L Normal 3.5-5.1 [facility] Comment on above: Performed By: #### C BC #### [facility] [address] [address] [address] Roscoe Segal Protein [Mass/Vol] 6.4 g/dL Normal 6.4-8.2 [facility] Comment on above: Performed By: #### C BC #### [facility] [address] [address] [address] Roscoe Segal Sodium [Moles/Vol] 134 mmol/L Critically low 136-145 [facility] Comment on above: Performed By: #### C BC #### [facility] [address] [address] [address] Roscoe Segal Urea nitrogen [Mass/Vol] 11.0 mg/dL Normal 7.0-18.0 [facility] Comment on above: Performed By: #### C BC #### [facility] [address] [address] [address] Roscoe Segal Urea nitrogen/Creatinine [Mass ratio] 12.1 mg/mg Normal [facility] Comment on above: Performed By: #### C #### [facility] [address] [address] [address] Roscoe Segal Glucose Glucometer (BldC) [M ass/Vol]on 01-02-2021 Glucose [Mass/Vol] 71 mg/dL [facility] Comment on above: Random Glucose Refer ence Range is dependent on time and content of last meal. Glucose of more than 200 mg/dL in a nonstressed, ambulatory subject supports the diagnosis of Diabetes Mellitus. No Panel Informationon 01-02 Bedside Glucose Comment See comment [facility] Comment on above: Glu2: WILL NOTIFY /MIGUEL COVID-19 Positive/Negativeon 12-31-2020 SARS-CoV-2 (COVID-19) N gene SOILA+probe Ql (Resp) Negative Negative [facility] Comment on above: Testing for SARS-CoV -2 by RT-PCRThis test was developed and its performance characteristics determined by [employer] ([place] and validated at the [facility]. This test has not been FDA [...] N gene SOILA+probe Ql (Resp) Negative Negative [facility] Comment on above: Reference: NegativeT esting for SARS-CoV-2 by RT-PCRThis test was developed and its performance characteristics determined by [employer] ([place] and validated at the [facility]. This test has not been FDA [...] (COVID-19) RNA SOILA+probe Ql (Unsp spec) N/A [facility] Vital Signs Date Time Vital Sign Value Performing Clinician Faci lity 09-29-2023 15:07-0500 Body height 172.7 cm Naomi Bernard MD Work Phone: [facility] 09-29-2023 15:07-0500 Body mass index (BMI) [Ratio] 33.45 kg/m2 Naomi Bernard MD Work Phone: [facility] 09-29-2023 15:07-0500 Body weight 99.79 kg Naomi Bernard MD Work Phone: [facility] 09-29-2023 15:07-0500 Diastolic blood pressure 68 mm[Hg] Naomi Bernard MD Work Phone: [facility] 09-29-2023 15:07-0500 Systolic blood pressure 112 mm[Hg] Naomi Bernard MD Work Phone: [facility] 09-01-2023 09:30-0500 Body height 172.72 cm Bambi Delgado Other [employer] Other 09-01-2023 09:30-0500 Body mass index (BMI) [Ratio] 31.77 kg/m2 Bambi Sandy Other [employer] Other 09-01-2023 09:30-0500 Body temperature 97 [degF] Bambi Sandy Other [employer] Other 09-01-2023 09:30-0500 Body weight 94.8 kg Bambi Sandy Other [employer] Other 09-01-2023 09:30-0500 Diastolic blood pressure 90 mm[Hg] Bambi Sandy Other [employer] Other 09-01-2023 09:30-0500 Respiratory rate 20 /min Bambi Sandy Other [employer] Other 09-01-2023 09:30-0500 SaO2% (BldA) [Mass fraction] 93 % Bambi Sandy Other [employer] Other 09-01-2023 09:30-0500 Systolic blood pressure 134 mm[Hg] Bambi Sandy Other [employer] Other 08-06-2023 22:00-0500 Body temperature 97.4 [degF] MD Shaikh Cruz Work Phone: [facility] 08-06-2023 22:00-0500 Diastolic blood pressure 62 mm[Hg] MD Shaikh Cruz Work Phone: [facility] 08-06-2023 22:00-0500 Heart rate 95 /min MD Shaikh Cruz Work Phone: [facility] 08-06-2023 22:00-0500 Respiratory rate 22 /min MD Shaikh Cruz Work Phone: [facility] 08-06-2023 22:00-0500 SaO2% (BldA) [Mass fraction] 90 % MD Shaikh Cruz Work Phone: [facility] 08-06-2023 22:00-0500 Systolic blood pressure 112 mm[Hg] MD Shaikh Cruz Work Phone: [facility] 08-06-2023 20:37-0500 Inhaled oxygen flow rate 3 L/min MD Shaikh Cruz Work Phone: [facility] 08-06-2023 15:50-0500 Body height 172.72 cm MD Shaikh Cruz Work Phone: [facility] 08-06-2023 15:50-0500 Body weight 97.35 kg MD Shaikh Cruz Work Phone: [facility] 07-17-2023 00:22-0500 Diastolic blood pressure 72 mm[Hg] MD Shaikh Cruz Work Phone: [facility] 07-17-2023 00:22-0500 Heart rate 90 /min MD Shaikh Cruz Work Phone: [facility] 07-17-2023 00:22-0500 Inhaled oxygen flow rate 3 L/min MD Shaikh Cruz Work Phone: [facility] 07-17-2023 00:22-0500 Respiratory rate 18 /min MD Shaikh Cruz Work Phone: [facility] 07-17-2023 00:22-0500 SaO2% (BldA) [Mass fraction] 96 % MD Shaikh Cruz Work Phone: [facility] 07-17-2023 00:22-0500 Systolic blood pressure 118 mm[Hg] MD Shaikh Cruz Work Phone: [facility] 07-16-2023 20:56-0500 Body height 172.72 cm MD Shaikh Cruz Work Phone: [facility] 07-16-2023 20:56-0500 Body temperature 98.2 [degF] MD Shaikh Cruz Work Phone: [facility] 07-16-2023 20:56-0500 Body weight 97.2 kg MD Shaikh Cruz Work Phone: [facility] 07-05-2023 15:48-0500 Diastolic blood pressure 96 mm[Hg] MD Shaikh Crzu Work Phone: [facility] 07-05-2023 15:48-0500 Heart rate 91 /min MD Shaikh Cruz Work Phone: [facility] 07-05-2023 15:48-0500 Respiratory rate 20 /min MD Shaikh Cruz Work Phone: [facility] 07-05-2023 15:48-0500 SaO2% (BldA) [Mass fraction] 95 % MD Shaikh Cruz Work Phone: [facility] 07-05-2023 15:48-0500 Systolic blood pressure 160 mm[Hg] MD Shaikh Cruz Work Phone: [facility] 07-05-2023 13:49-0500 Body height 170.18 cm MD Shaikh Cruz Work Phone: [facility] 07-05-2023 13:49-0500 Body temperature 98.5 [degF] MD Shaikh Cruz Work Phone: [facility] 07-05-2023 13:49-0500 Body weight 97.8 kg MD Shaikh Cruz Work Phone: [facility] 06-20-2023 13:40-0500 Body height 172.72 cm Courtney Valladares Other [facility] [employer] Other 06-20-2023 13:40-0500 Body mass index (BMI) [Ratio] 32.47 kg/m2 Courtney Valladares Other [facility] [employer] Other 06-20-2023 13:40-0500 Body temperature 97.8 [degF] Courtney Valladares Other [facility] [employer] Other 06-20-2023 13:40-0500 Body weight 96.89 kg Courtney Valladares Other [facility] [employer] Other 06-20-2023 13:40-0500 Respiratory rate 20 /min Courtney Valladares Other [employer] Other 06-20-2023 13:40-0500 SaO2% (BldA) [Mass fraction] 91 % Courtney Valladares Other [facility] [employer] Other 03-14-2023 15:19-0400 Body temperature 97.5 [degF] MD Shaikh Cruz Work Phone: [facility] 03-14-2023 15:19-0400 Diastolic blood pressure 81 mm[Hg] MD Shaikh Cruz Work Phone: [facility] 03-14-2023 15:19-0400 Heart rate 83 /min MD Shaikh Cruz Work Phone: [facility] 03-14-2023 15:19-0400 Respiratory rate 18 /min MD Shaikh Cruz Work Phone: [facility] 03-14-2023 15:19-0400 SaO2% (BldA) [Mass fraction] 97 % MD Shaikh Cruz Work Phone: [facility] 03-14-2023 15:19-0400 Systolic blood pressure 145 mm[Hg] MD Shaikh Cruz Work Phone: [facility] 03-14-2023 03:51-0400 Body weight 94.1 kg MD Shaikh Cruz Work Phone: [facility] 03-13-2023 00:00-0400 Inhaled oxygen flow rate 2 L/min MD Shaikh Cruz Work Phone: [facility] 03-11-2023 16:04-0400 Body height 170.18 cm MD Shaikh Cruz Work Phone: [facility] 02-14-2023 14:30-0400 Body height 172.72 cm Katie Alberto Other [employer] Other 02-14-2023 14:30-0400 Body mass index (BMI) [Ratio] 14.93 kg/m2 Katie Alberto Other [facility] [employer] Other 02-14-2023 14:30-0400 Body temperature 97.8 [degF] Katie Alberto Other [facility] [employer] Other 02-14-2023 14:30-0400 Body weight 44.54 kg Katie Alberto Other [facility] [employer] Other 02-14-2023 14:30-0400 Respiratory rate 18 /min Katie Alberto Other [facility] [employer] Other 02-14-2023 14:30-0400 SaO2% (BldA) [Mass fraction] 94 % Katie Alberto Other [facility] [employer] Other 01-02-2021 09:40-0400 Diastolic blood pressure 65 mm[Hg] Walker Dudenhoefer Work Phone: [facility] 01-02-2021 09:40-0400 Heart rate 86 /min Walker Dudenhoefer Work Phone: [facility] 01-02-2021 09:40-0400 Respiratory rate 16 /min Walker Dudenhoefer Work Phone: [facility] 01-02-2021 09:40-0400 SaO2% (BldA) [Mass fraction] 95 % Walker Dudenhoefer Work Phone: [facility] 01-02-2021 09:40-0400 Systolic blood pressure 112 mm[Hg] Walker Dudenhoefer Work Phone: [facility] 01-02-2021 08:23-0400 Body height 172.72 cm Walker Dudenhoefer Work Phone: [facility] 01-02-2021 08:23-0400 Body mass index (BMI) [Ratio] 36.5 kg/m2 Walker Dudenhoefer Work Phone: [facility] 01-02-2021 08:23-0400 Body weight 108.86 kg Walker Dudenhoefer Work Phone: [facility] 01-02-2021 06:56-0400 Body temperature 98.7 [degF] Walker Dudenhoefer Work Phone: [facility] Encounters Encounter Date Encounter Type Care Provider Facility Start: 01-11-2024 End: 01-11-2024 ambulatory STEPHENS FAWWAD Not Available Start: 12-22-2023 End: 12-22-2023 ambulatory KEIRY LEW Not Available Start: 12-08-2023 End: 12-08-2023 ambulatory STEPHENS FAWWAD Not Available Start: 10-21-2023 End: 10-21-2023 ambulatory STEPHENS FAWWAD Not Available Start: 09-30-2023 End: 09-30-2023 ambulatory MARVIN J [facility]AEL[facility] Start: 09-29-2023 End: 09-29-2023 ambulatory NAOMI BERNARD Not Available Start: 09-29-2023 End: 09-29-2023 Office outpatient new 45 minutes Naomi Bernard MD Work Phone: [facility] Comment on above: Hoarse (Primary Dx); Chronic laryngitis; Thrush Start: 09-29-2023 Bamboo flowsheet Naomi murphy MD Work Phone: [facility] Start: 09-29-2023 Bamboo flowsheet Naomi murphy MD Work Phone: [facility] Start: 09-25-2023 Chart abstracting Naomi hyatt MD Work Phone[facility] Start: 09-21-2023 End: 09-21-2023 ambulatory Bambi Sandy Other [employer] Other Start: 09-21-2023 Telephone encounter Bambi Sandy [facility] Start: 09-14-2023 End: 09-14-2023 ambulatory Bambi Sandy Other [facility] [employer] Other Start: 09-14-2023 Telephone encounter Bambi Sandy [facility] Start: 09-01-2023 End: 09-01-2023 ambulatory Bambi Sandy Other [facility] Other Start: 09-01-2023 Office outpatient visit 25 minutes Bambi Sandy [facility] Start: 08-30-2023 End: 08-30-2023 ambulatory Errol Nicole Facility:[facility] Start: 08-30-2023 End: 08-30-2023 ambulatory MD Shaikh Cruz Work Phone: [facility] Work Phone: Start: 08-30-2023 End: 08-30-2023 Patient encounter procedure MD Shaikh Cruz Work Phone: [facility]-CT Scan [address] [place] Work Phone: Start: 08-06-2023 End: 08-07-2023 Emergency department patient visit Marilee Marcum Facility:[facility] Start: 08-06-2023 End: 08-06-2023 Emergency department patient visit MD Shaikh Cruz Work Phone: [facility]-Emergency Room Work Phone: Start: 07-16-2023 End: 07-17-2023 Emergency department patient visit Yasmin Leung Facility:[facility] Start: 07-16-2023 End: 07-17-2023 Emergency department patient visit MD Shaikh Cruz Work Phone: [facility]-Emergency Room Work Phone: Start: 07-05-2023 End: 07-05-2023 Emergency department patient visit Shaikh Anthony Facility:[facility] Start: 07-05-2023 End: 07-05-2023 Emergency department patient visit MD Shaikh Cruz Work Phone: [facility]-Emergency Room Work Phone: Start: 06-20-2023 End: 06-20-2023 ambulatory Courtney Valladares Other [facility] [employer] Other Start: 06-20-2023 Office outpatient visit 25 minutes Courtney Valladares [facility] Start: 04-09-2023 End: 04-09-2023 ambulatory Valeriano Horta Facility:[facility] Start: 04-09-2023 End: 04-09-2023 ambulatory MD Shaikh Cruz Work Phone: [facility] Work Phone: Start: 04-09-2023 End: 04-09-2023 Patient encounter procedure MD Shaikh Cruz Work Phone: [facility]-CT [address] Work Phone: Start: 03-16-2023 End: 03-16-2023 ambulatory Errol Nicole Other [facility] Other Start: 03-16-2023 Telephone encounter Errol Nicole [facility] Start: 03-10-2023 End: 03-14-2023 Evaluation and management of inpatient Krunal Kelly Facility:[facility] Start: 03-10-2023 End: 03-14-2023 Evaluation and management of inpatient MD Shaikh Cruz Work Phone: [facility] Work Phone: Start: 02-14-2023 End: 02-14-2023 ambulatory Katie Alberto Other [facility] [employer] Other Start: 02-14-2023 Office outpatient ne w 20 minutes Katie Alberto [facility] Start: 12-01-2022 End: 12-02-2022 ambulatory STEPHENS H FAWWAMary Facility:[facility] Start: 11-11-2022 End: 11-12-2022 ambulatory STEPHENS Karoline FAWWAMary Facility:[facility] Start: 09-11-2022 End: 09-11-[address] GIOVANNY Salas Facility:[facility] Start: 07-24-2022 End: 07-24-2022 ambulatory STEPHENS H FAWWAMary Facility:[facility] Start: 05-25-2022 End: 05-26-2022 ambulatory STEPHESN H FAWWAMary Facility:[facility] Start: 04-27-2022 End: 04-27-2022 ambulatory STEPHENS H FAWWAMary Facility:[facility] Start: 04-25-2022 End: 04-25-2022 ambulatory AMILCAR SANDERS Facility:[facility] Start: 04-24-2022 ambulatory STEPHENS H FAWWAMary Facilit y:H1 Start: 04-10-2022 End: 04-11-2022 ambulatory STEPHENS H FAWWAMary Facility:[facility] Start: 04-09-2022 End: 04-10-2022 ambulatory STEPHENS H FAWWAD Facility:[facility] Start: 03-29-2022 End: 03-29-2022 ambulatory STEPHENS H FAWWAD Facility:[facility] Start: 03-20-2022 End: 03-21-2022 ambulatory STEPHENS H FAWWAD Facility:[facility] Start: 03-03-2022 End: 03-03-2022 ambulatory SHILPI MUÑOZ Facility:[facility] Start: 02-25-2022 End: 02-25-[address] VICK LEUNG Facility:[facility] Start: 01-01-2022 End: 01-01-2022 ambulatory AMILCAR SANDERS Facility:[facility] Start: 12-31-2021 End: 01-16-2022 ambulatory STEPHENS H FAWWAD Facility:[facility] Start: 12-24-2021 End: 12-25-2021 ambulatory STEPHENS H FAWWAD Facility:[facility] Start: 12-19-2021 ambulatory STEPHENS H FAWWAD Facilit y:H1 Start: 06-10-2021 End: 06-14-2021 ambulatory UNKNOWN PROVIDER Facility:[facility] Start: 01-28-2021 End: 01-28-2021 Patient encounter procedure Walker Alba Work Phone: -Pre-Surgical Testing Start: 01-02-2021 End: 01-02-2021 Admission to same day surgery center Walker Alba Work Phone: -[facility] [place] Start: 12-31-2020 End: 12-31-2020 Patient encounter procedure Walker Alba Work Phone: -Pre-Surgical Testing Start: 12-24-2020 End: 12-24-2020 ambulatory [facility] Start: 12-03-2020 End: 12-03-2020 Patient encounter [...] CT of head without contrast MD Shaikh Manjeet montiel Work Phone: Start: 03-12-2023 End: 03-12-2023 [...] screen MD Shaikh Cruz Work Phone: Start: 03-10-2023 CT of thorax with contrast MD Shaikh Raphael damon Work Phone: Start: 03-10-2023 Plain chest X-ray MD Shaikh Cruz Work Phone: Start: 01-02-2021 Phacoemulsification of cataract with intraocular lens implantation aWlker Alba Work Phone: Plan of Treatment Date Care Activity Detail Author Start: 09-29-2023 End: 09-29-2023 Patient encounter procedure 09/29/2023 3:00 PM EST Office Visit [facility] [address] [facility] [address] [place] [address] Naomi Bernard MD [address] [facility] [address] [place] [address] [facility] Start: 07-16-2023 Plain chest X-ray XR chest 1V portable [facility] Start: 07-16-2023 XR Chest Single view [facility] Start: 03-14-2023 [facility] Start: 03-14-2023 Referral to Senior Online Marketing Manager [facility] Start: 03-14-2023 [facility] Start: 03-11-2023 Plain chest X-ray XR chest 1V portable [facility] Start: 03-11-2023 XR Chest Single view [facility] Start: 03-11-2023 [facility] Start: 03-11-2023 Mycology culture Mycology Culture [facility] Start: 03-10-2023 Consultation [facility] Start: 03-10-2023 Hospital admission [facility] Start: 03-10-2023 Referral to thoracic surgeon [facility] Start: 03-10-2023 Blood culture for bacteria, including anaerobic screen Blood Culture [facility] Start: 03-10-2023 Drainage of Bilateral Lungs, Via Natural or Artificial Opening Endoscopic Drainage of Bilateral Lungs, Via Natural or Artificial Opening Endoscopic [facility] Start: 03-10-2023 Excision of Left Lower Lung Lobe, Via Natural or Artificial Opening Endoscopic, Diagnostic Excision of Left Lower Lung Lobe, Via Natural or Artificial Opening Endoscopic, Diagnostic [facility] Start: 2015 Screening for malignant neoplasm of breast Mammogram [facility] Start: 1994 Urine screening for protein Diabetes: Urine Protein Screening [facility] Start: 1985 Glaucoma screening Diabetes: Retinopathy Screening [facility] Start: 1975 Hemoglobin A1c measurement Diabetes: Hemoglobin A1C [facility] Start: 1975 Medicare Annual Wellness (AWV) Medicare Annual Wellness (AWV) [facility] Start: 1975 Screening for malignant neoplasm of colon [facility] Fungus identified in Unspecified specimen by Culture [facility] Mycobacterium sp identified in Unspecified specimen by Organism specific culture [facility] Patient Education [facility] Work Phone: Patient referral [facility] Payers Date Payer Category Payer Self-pay [id number] 2021 Medicare AETNA MEDICARE A DVANTAGE AETNA MEDICARE REPLACEMENT [id number] 2021-Present [address] [place] [address] [id number] 2020 Medicare [id number] 2020 Medicaid MEDICAID [facility] [id number] 2020-Present [phone] [address] [place] [address] Medicaid [id number] 1975 Unknown [id number] 2.16.840.1.677331.3.579.2.732 1975 Unknown [id number] 2.16.840.1.981622.3.579.2.732 1975 Unknown [id number] 2.16.840.1.111824.3.579.2.593 1975 Unknown [id number] 2.16.840.1.075852.3.579.2.593 1975 Unknown [id number] 2.16.840.1.952498.3.579.2.593 1975 Unknown [id number] 2.16.840.1.845824.3.579.2.593 1975 Unknown [id number] 2.16840.1.824541.3.579.2.593 1975 Unknown [id number] 2.16840.1.392333.3.579.2.593 1975 Unknown [id number] 2.16840.1.397824.3.579.2.593 1975 Unknown [id number] 2.16.840.1.701561.3.579.2.593 1975 Unknown [id number] 2.16.840.1.052781.3.579.2.593 1975 Unknown [id number] 2.16.840.1.414777.3.579.2.593 1975 Unknown [id number] 2.16.840.1.649352.3.579.2.593 1975 Unknown [id number] 2.16.840.1.576494.3.579.2.593 1975 Unknown [id number] 2.16.840.1.909195.3.579.2.593 1975 Unknown [id number] 2.16.840.1.166005.3.579.2.593 1975 Unknown [id number] 2.16.840.1.918643.3.579.2.593 1975 Unknown [id number] 2.16.840.1.613078.3.579.2.593 1975 Unknown [id number] 2.16.840.1.036727.3.579.2.593 1975 Unknown [id number] 2.16.840.1.092475.3.579.2.593 1975 Unknown [id number] 2.16.840.1.264637.3.579.2.1286 1975 Unknown [id number] 2.16.840.1.916288.3.579.2.1259 1975 Unknown [id number] 2.16.840.1.086626.3.579.2.1259 1975 Unknown [id number] 2.16.840.1.716882.3.579.2.1259 1975 Unknown [id number] 2.16.840.1.196846.3.579.2.1259 1975 Unknown [id number] 2.16.840.1.185653.3.579.2.1259 1959 Medicaid [id number] 1959 Medicare [id number] Unknown [id number] Unknown [id number] 2.16.840.1.735842.3.579.2.531 Unknown [id number] 2.16.840.1.241210.3.579.2.531 Unknown [id number] 2.16.840.1.034358.3.579.2.531 Unknown [id number] 2.16.840.1.522172.3.579.2.531 Unknown [id number] 2.16.840.1.632970.3.579.2.531 Unknown [id number] 2.16.840.1.445455.3.579.2.531 Social History Date Type Detail Facility Start: 10-31-2020 End: 08-06-2023 Tobacco smoking status NHIS Smoker (finding) [facility] Start: 1975 Sex Assigned At Female F [facility] Start: 09-06-2023 End: 09-28-2023 Sex Assigned At [facility] Start: 09-06-2023 Tobacco smoking stat us MEIS Smokes tobacco daily [facility] History of tobacco use Cigarette Smoker [facility] Start: 09-06-2023 End: 09-28-2023 Cigarettes smoked [...] Sex Assigned At Not on file [facility] Medical Equipment Procedure Code Equipment Code Equipment Origin al Text Equipment Identifier Dates Phacoemulsification of cataract with intraocular lens implantation Posterior-chamber intraocular lens, pseudophakic ()[id number] FDA Start: 01-02-2021 Phacoemulsification of cataract with intraocular lens implantation Posterior-chamber intraocular lens, pseudophakic ()[id number] FDA Start: 2021 Inject under the skin if needed. Use as instructed [id number] 4 (four) times a day as needed. [id number] Inject under the skin if needed. Use as instructed [id number] Goals Date Patient Goal Desired Activity /State Functional Status Date Assessment Result Facility 03-14-2023 Functional status Patient at Baseline [facility] Work Phone: Mental Status Date Assessment Result Facility 03-14-2023 Cognitive function Cognitive Sta tus Patient at Baseline [facility] Work Phone: Clinical Notes 04-10-2022 to [...] upper lobe of left lung with pneumonia ([facility]) 04/12/2023 Anxiety 09/06/2023 Bipolar disorder ([facility]/HCC) 09/06/2023 Current smoker 09/06/2023 History of migraine 09/06/2023 Hypertension ([facility]) 09/06/2023 Diabetes mellitus ([facility]) 09/06/2023 Hypoglycemia 01/10/2020 Neck pain 09/06/2023 Non-traumatic rhabdomyolysis 01/10/2020 Other insomnia 11/05/2022 Pelvic pain 09/06/2023 COPD (chronic obstructive pulmonary disease) ([facility]) 09/06/2023 Resolved Ambulatory Problems Diagnosis Date Noted No Resolved Ambulatory Problems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
[2024-01-18 02:04] LABS: Anion Gap 10.2; BUN Creatinine Ratio 3.9; Calcium 8.8 mg/dL (8.5-10.1); Carbon Dioxide 32.1 mmol/L (21.0-32.0); Chloride 102 mmol/L (98-107); Estimated GFR (African America >60 (>=60); Estimated GFR (Non-African Ame >60 (>=60); Glucose 224 mg/dL (74-106); Potassium 3.3 mmol/L (3.5-5.1); Sodium 141 mmol/L (136-145); Troponin I High Sensitivity 8.8 pg/mL (4.0-51.3)
[2024-01-18 02:08] LABS: HCO3 ABG 32.4 mmol/L (22.0-26.0)
[2024-01-18 02:09] LABS: Base Excess ABG 4.1 mmol/L (-2.0-2.0)
[2024-01-18 02:10] LABS: Allen Test POSITIVE (POSITIVE); Liters per Minute 5; O2 Mode NASAL CANNULA; Oxygen Saturation ABG 99.1 %; Puncture Site R RADIAL
[2024-01-18 02:12] LABS: ABG PCO2 86.3 mmHg (35.0-45.0); pH ABG 7.183 (7.350-7.450)
--- NOTE | 2024-01-18 02:28 | RESP.RT ---
Pt taken off of nasal cannula and placed on BIPAP 31/03 Fi02 40% due to ABG results.
[2024-01-18 02:52] LABS: SARS-CoV-2 Ag NEGATIVE (NEGATIVE)
[2024-01-18 03:08] LABS: Allen Test POSITIVE (POSITIVE); Base Excess ABG 4.4 mmol/L (-2.0-2.0); HCO3 ABG 32.3 mmol/L (22.0-26.0); O2 Mode BIPAP; Oxygen Saturation ABG 93.6 %; PO2 ABG 68.4 mmHg (80.0-100.0)
[2024-01-18 03:09] LABS: Fractionated Inspired Oxygen 40 %; Puncture Site R.RADIAL
[2024-01-18 03:10] LABS: ABG PCO2 81.2 mmHg (35.0-45.0); pH ABG 7.208 (7.350-7.450)
[2024-01-18] MEDS: CEFTRIAXONE 1,000 MG in 0.9 % SODIUM CHLORIDE 50 ML 100 MG IV (03:14)
[2024-01-18] MEDS: 0.9 % SODIUM CHLORIDE 1,000 ML 1000 ML IV (03:15)
[2024-01-18 03:28] LABS: Lactate/Lactic Acid 1.8 mmol/L (0.4-2.0)
[2024-01-18] MEDS: AZITHROMYCIN 500 MG in 0.9 % SODIUM CHLORIDE 250 ML 250 MG IV (03:51)
[2024-01-18 03:53] LABS: PROCALCITONIN 0.07 ng/mL (0.00-0.50)
--- OUTSIDE RECORDS SUMMARY | 2024-01-18 04:02 | XMS_ITS | CCD ---
Author Organization [facility] Inform ion [facility] Care Team Providers Care Consumer Loan Underwriter Name Role Phone Walker Alba Attending Provider Audi Hdez Primary Care Provider [phone] PROVIDER, UNKNOWN Admitting Unavailable PROVIDER, UNKNOWN Attending [...] Consulting Unavailable STEPHANIE PATTERSON Attending Unavailable YASMIN HUERTSA Consulting Unavailable FAWWAD, STEPHENS H Primary Care Unavailable LIVIA, DR VICK Adams Consulting Unavailable LIVIA, DR VICK Admas Attending Unavailable LIVIA, DR VICK Adams Admitting [...] Unavailable PAY ., DR ZAPATA Attending Unavailable [place], DR SHAJI Osborn Consulting Unavailable PAY ., DR ZAPATA Admitting Unavailable PAY ., DR ZAPATA Consulting Unavailable SAVITA .CHRISTIANE Consulting Unavailable FAWWAD, STEPHENS H Primary Care Unavailable JENNY, DR YASMIN Cotres Attending Unavailsanthosh ALVARADO, DR YASMIN Cortes Consulting [...] Horta Attending Provider ValladaresCourtney Unavailable MD Anthony [facility] Primary Care Provider MD Valeriano Horta Attending Provider FAVIO Villeda Emergency Provider MD Anthony [facility] Primary Care Provider MD Yasmin Leung Emergency Provider [phone] SHANTI Marcum Emergency Provider MD Errol Nicole Attending Provider Bambi Delgado Unavailable Anthony MASTERS, [facility] Primary [facility] MARVIN SHERWOOD Attending Unavailable PAVAUDI DISLA L Referring Unavailable PAVNIGHAT, AUDI L Primary Care Unavailable Marilee Marcum Admitting Unavailable Marilee Marcum Attending Unavailable [facility] Primary Care Unavailable Chaban, Kamal Admitting Unavailable Patel Nicoleal Attending Unavailable [facility] Primary Care Unavailable Valeriano Horta Admitting Unavailable Valeriano Horta Attending Unavailable [facility] Care Unavailable Krunal Kelly Attending Unavailabl e Eron Wood Admitting Unavailable Chaban, Kamal Consulting Unavailable [facility] Primary Care Unavailable Valeriano Horta Consulting [facility] Unavailable Elio Villeda Admitting Unavailable [...] Agonists (4 sources) SUMAtriptan Drug Allergy 1 [facility] (1 source) Plasmin Drug Allergy 6 [facility] Repository (16 sources) SUMAtriptan Drug Allergy 3 shortness of breath, Anxiety [facility] (1 source) SUMAtriptan; Translations: [SUMATRIPTAN SUCCINATE] Drug Allergy 0 [facility] Repository (1 source) SUMAtriptan Drug Allergy 4 [facility] Repository Medications Current Medications Medication Drug Class(es) Dates Sig (Normalized) Sig (Original) [id number] 200 actuat albuterol 0.09 mg/actuat metered dose [...] Twice a day Active Continuous Blood Gluc Clinical Review Specialist (FreeStyle Magali 14 Day Inglis) device (4 sources) Continuous Blood Gluc Clinical Review Specialist (FreeStyle Magali 14 Day [place]is) device 4 (four) times a day as [...] 1.5 mg/ml oral solution (4 sources) Uncompetitive V-mugugy-R-aspartate Receptor Antagonist, Sigma-1 Agonist Start: 2022 take 10 mL by mouth every eight hours [place] DM 7.5-7.5 MG/5ML 10 mL Orally every [...] polyneuropathy, with long-term current use of insulin ([facility]) TAKE 1 TABLET BY MOUTH THREE TIMES [...] 5:04pm take [address] [facility] every eight hours Gabapentin 300 MG 1 [...] polyneuropathy, with long-term current use of insulin ([facility]) Inject 20 Units under the skin in [...] tablet Orally Once a day Active nystatin [id number] unt/ml oral suspension (2 sources) Polyene Antifungal Start : 09-29 End: 10-09 nystatin (Mycostatin) [id number] UNIT/ML suspension Indications: Thrush Take 5 mL [...] 2.5 ug by inhalation twice daily Tiotropium [place] (Spiriva Respimat) 2.5 mcg/actuation mist Discontinued 1 [...] stomatitis] 09-29-2023 Episodic Other aftercare (1 source) [facility] (current) use of insulin; Translations: [HALFWAY CURRENT USE OF INSULIN] Onset: 09-15-2022 Episodic Other aftercare (1 source) Other predatory animal exterminator (current) drug therapy; Translations: [OTH HALFWAY CURRENT DRUG THERAPY] Onset: 09-15-2022 Episodic Other [...] wo conon 08-30-2023 CT chest wo con [facility] Main [place] [address] [place] [address] CT Scan Report Signed Patient: Christiane Perez MR#: [id number] 2 : 1975 Acct:[id number] Age/Sex: 48 / F ADM Date: 08/30/23 Loc: CT Room: Type: [facility] Attending Dr: Errol Nicole MD Copies to: [...] Johnson Jr., D.O.08/30/2023 3:21 PM Dictation Location: [place] [address] Transcribed By: [facility] 08/30/23 1521 Dictated By: Rodger Johnson Jr, DO 08/30/23 1517 Signed By: 08/30/23 1521 Normal [facility] Activated partial thrombopla stin time (aPTT) in platelet poor plasma by coagulation aOrdered By: Marilee Marcum on 08-06-2023 aPTT Coag (PPP) [Time] 32.3 s 25.1-36.5 [facility] Comment on above: A hematocrit value g reater than 55% may lead to inaccurate results in coagulation testing. Patients having hematocrit values >55% require a special collection tube for coagulation studies. Please contact the laboratory at [phone] for redraw instructions. B-Type Natriuretic Peptideon 08-06-2023 Natriuretic peptide B (Bld) [Mass/Vol] 29.0 pg/mL Normal 5-100 [facility] Comment on above: Result Comment: PERF ORMED BY: [place] [address] PATHOLOGIST RN STAFFING WAYNE WAKEFIELD M.D. Performed By: #### V ANCT #### [facility] [address] [place] [address] Basic Metabolic Panelon 07-17 Anion gap [Moles/Vol] 9.8 mmol/L Normal 6.0-15.0 [facility] Comment on above: Performed By: #### V ANCT #### [facility] [address] [place] [address] [place] Calcium [Mass/Vol] 8.6 mg/dL Normal 8.6-10.3 [facility] Comment on above: Performed By: #### V ANCT #### [facility] [address] [place] [id number] [place] Chloride [Moles/Vol] 106 mmol/L Normal 98-107 [facility] Comment on above: Performed By: #### V ANCT #### [facility] [address] [place] [address] [place] CO2 [Moles/Vol] 24.9 mmol/L Normal 21.0-31.0 [facility] Comment on above: Performed By: #### V ANCT #### [facility] [address] Creatinine [Mass/Vol] 0.72 mg/dL Normal 0.60-1.20 [facility] Comment on above: Performed By: #### V ANCT #### [facility] [address] [place] [address] [place] Creatinine Clr Calc Pharmacy 116.58 Normal [facility] Comment on above: Result Comment: PERF ORMED BY: [place] [address] PATHOLOGIST RN STAFFING WAYNE WAKEFIELD M.D. Performed By: #### V ANCT #### [place] [address] [place] GFR/1.73 sq M.predicted MDRD (S/P/Bld) [Vol rate/Area] mL/min/{1.73_m2} Normal [facility] Comment on above: Performed By: #### V ANCT #### [address] Glucose [Mass/Vol] 99 mg/dL Normal 70-100 [facility] Comment on above: Result Comment: [place] Glucose Reference Range is dependent on time and content of last meal. Glucose of more than 200 mg/dL in a nonstressed, ambulatory subject supports the diagnosis of Diabetes Mellitus. ADA recommended reference range Performed By: #### V ANCT #### [facility] [address] [place] [address] [place] Potassium [Moles/Vol] 3.7 mmol/L Normal 3.5-5.1 [facility] Comment on above: Performed By: #### V ANCT #### [place] [address] [place] Sodium [Moles/Vol] 137 mmol/L Normal 136-145 [facility] Comment on above: Performed By: #### V ANCT #### [facility] [address] Urea nitrogen [Mass/Vol] 8 mg/dL Normal 7-25 [facility] Comment on above: Performed By: #### V ANCT #### [facility] [address] Basophils Auto (Bld) [#/Vol] Ordered By: Marilee Marcum on 08-06-2023 Basophils (Bld) [#/Vol] 0.1 10*3/uL 0.0-0.2 [facility] Basophils/100 WBC Auto (Bld) Ordered By: Marilee Marcum on 08-06-2023 Basophils/100 WBC (Bld) 0.5 % . [facility] COVID CepheidOrdered By: Marielos Marcum on 08-06-2023 SARS-CoV-2 (COVID-19) Ab IA Ql Negative Negative [facility] Comment on above: This is a duplicate Cepheid Xpert Xpress CoV-2/Flu/RSV Plus RNA by RT-PCR result to be used for statistical tracking purpose only. SARS-CoV-2 (COVID-19) RNA SOILA+probe Ql (Unsp spec) [facility] COVID-19 / Flu A/B / RSV PCR [...] or Cepheid Disclaimer revoked sooner. PERFORMED BY: [place] [address] PATHOLOGIST RN STAFFING WAYNE AWKEFIELD M.D. [facility] Comment on above: Performed By: #### V ANCT #### [address] Calcium [Mass/volume] in Ser um or PlasmaOrdered By: Marilee Marcum on 08-06-2023 Calcium [Mass/Vol] 8.6 mg/dL 8.6-10.3 [facility] Carbon dioxide, total [Moles /volume] in Serum or PlasmaOrdered By: Marilee Marcum on 08-06-2023 CO2 [Moles/Vol] 24.9 mmol/L 21.0-31.0 [facility] Cepheid COVID PCR Negativeon 08-06-2023 SARS-CoV-2 (COVID-19) RNA SOILA+probe Ql (Unsp spec) Negative Normal Negative [facility] Comment on above: Result Comment: This is a duplicate CepHistoRxid Xpert Xpress CoV-2/Flu/RSV Plus RNA by RT-PCR result to be used for statistical tracking purpose only. PERFORMED BY: [place] [address] PATHOLOGIST RN STAFFING WAYNE WAKEFIELD M.D. Performed By: #### V ANCT #### [address] Chloride [Moles/volume] in S kaitlin or PlasmaOrdered By: Marilee Marcum on 08-06-2023 Chloride [Moles/Vol] 106 mmol/L 98-107 [facility] Complete Blood Count Auto Di ffon 08-06-2023 Basophils (Bld) [#/Vol] 0.1 10*3/uL Normal 0.0-0.2 [facility] Comment on above: Result Comment: PERF ORMED BY: [place] [address] PATHOLOGIST RN STAFFING WAYNE WAKEFIELD M.D. Performed By: #### V ANCT #### [place] [address] [place] Basophils/100 WBC (Bld) 0.5 % Normal . [facility] Comment on above: Performed By: #### V ANCT #### [place] [address] [place] Eosinophils (Bld) [#/Vol] 0.1 10*3/uL Normal 0.0-0.45 [facility] Comment on above: Performed By: #### V ANCT #### [place] [address] [place] Eosinophils/100 WBC (Bld) 1.0 % Normal . [facility] Comment on above: Performed By: #### V ANCT #### [address] Erythrocyte distribution width (RBC) [Ratio] 16.7 % High 11.9-15.3 [facility] Comment on above: Performed By: #### V ANCT #### [address] Hematocrit (Bld) [Volume fraction] 45.8 % Normal 34.0-46.4 [facility] Comment on above: Performed By: #### V ANCT #### [address] Hemoglobin (Bld) [Mass/Vol] 15.4 g/dL Normal 11.8-15.4 [facility] Comment on above: Performed By: #### V ANCT #### [address] Lymphocytes (Bld) [#/Vol] 1.4 10*3/uL Normal 1.00-4.8 [facility] Comment on above: Performed By: #### V ANCT #### [address] Lymphocytes/100 WBC (Bld) 12.5 % Normal . [facility] Comment on above: Performed By: #### V ANCT #### [address] MCH (RBC) [Entitic mass] 32.9 pg Normal 24.7-34.3 [facility] Comment on above: Performed By: #### V ANCT #### [address] MCV (RBC) [Entitic vol] 97.6 fL Normal 80-100 [facility] Comment on above: Performed By: #### V ANCT #### [address] Mean Corpuscular HGB Conc 33.7 g/dL Normal 32.0-35.0 [facility] Comment on above: Performed By: #### V ANCT #### [address] Monocytes (Bld) [#/Vol] 0.8 10*3/uL Normal 0.0-0.8 [facility] Comment on above: Performed By: #### V ANCT #### [facility] [address] [place] [address] [place] Monocytes/100 WBC (Bld) 23.24 % High 0.00-20.00 [facility] Comment on above: Result Comment: For adults in ED, MDW > 20.0 may be associated with a higher risk of sepsis during the first 12 hrs of hospital admission Performed By: #### V ANCT #### [facility] [address] [place] [address] Monocytes/100 WBC (Bld) 7.7 % Normal . [facility] Comment on above: Performed By: #### V ANCT #### [address] Neutrophils (Bld) [#/Vol] 8.5 10*3/uL High 1.8-7.7 [facility] Comment on above: Performed By: #### V ANCT #### [place] [address] [place] Neutrophils/100 WBC (Bld) 78.3 % Normal . [facility] Comment on above: Performed By: #### V ANCT #### [place] [address] [place] NRBC% 0.1 /100{WBC} Normal 0-0.5 [facility] Comment on above: Performed By: #### V ANCT #### [place] [address] [place] Platelet mean volume (Bld) [Entitic vol] 7.3 fL Normal 6.3-10.7 [facility] Comment on above: Performed By: #### V ANCT #### [facility] [address] [place] [address] [place] Platelets (Bld) [#/Vol] 237 10*3/uL Normal 150-450 [facility] Comment on above: Performed By: #### V ANCT #### [facility] [address] [place] [address] [place] RBC (Bld) [#/Vol] 4.70 10*6/uL Normal 3.60-5.00 [facility] Comment on above: Performed By: #### V ANCT #### [facility] [address] [place] [address] [place] WBC (Bld) [#/Vol] 10.8 10*3/uL Normal 3.8-11.6 [facility] Comment on above: Performed By: #### V ANCT #### [facility] [address] Creatinine [Mass/volume] in Serum or PlasmaOrdered By: Marilee Marcum on 08-06-2023 Creatinine [Mass/Vol] 0.72 mg/dL 0.60-1.20 [facility] ECG 12 lead ECGon 08-06-2023 ECG 12 lead ECG [facility] Main [place] [address] [place] [address] Electrocardiograph Report Signed Patient: Christiane Perez MR#: [id number] 2 : 1975 Acct:[id number] Age/Sex: 48 / F ADM Date: 08/06/23 Loc: ER Room: Type: [facility] ER Attending Dr: Ordering Provider: Marilee [...] change was found Confirmed by CHAI [facility]ERS [facility] ([id number]) on 08/08/2023 11:46:24 AM Referred By: Electronically Signed By:ROBIN ZUNIGA MD, FACC Transcribed By: MUS Signed By Mario Zuniga MD 08/08/23 1146 Normal [facility] Eosinophils Auto (Bld) [#/Vo l]Ordered By: Marilee Marcum on 08-06-2023 Eosinophils (Bld) [#/Vol] 0.1 10*3/uL 0.0-0.45 [facility] Eosinophils/100 WBC Auto (Bl d)Ordered By: Marilee Marcum on 08-06-2023 Eosinophils/100 WBC (Bld) 1.0 % . [facility] Erythrocyte distribution wid th Auto (RBC) [Ratio]Ordered By: Marilee Marcum on 08-06-2023 Erythrocyte distribution width (RBC) [Ratio] 16.7 % 11.9-15.3 [facility] Glucose [Mass/volume] in Ser um or PlasmaOrdered By: Marilee Marcum on 08-06-2023 Glucose [Mass/Vol] 99 mg/dL 70-100 [facility] Comment on above: ADA recommended refe rence rangeRandom Glucose Reference Range is dependent on time and content of last meal. Glucose of more than 200 mg/dL in a nonstressed, ambulatory subject supports the diagnosis of Diabetes Mellitus. Hematocrit Auto (Bld) [Volum e fraction]Ordered By: Marilee Marcum on 08-06-2023 Hematocrit (Bld) [Volume fraction] 45.8 % 34.0-46.4 [facility] Hemoglobin [Mass/volume] in BloodOrdered By: Marilee Marcum on 08-06-2023 Hemoglobin (Bld) [Mass/Vol] 15.4 g/dL 11.8-15.4 [facility] INR in Platelet poor plasma by Coagulation assayOrdered By: Marilee Marcum on 08-06-2023 INR Coag (PPP) [Relative time] 1.0 {INR} [facility] Comment on above: INR Therapeutic Rang e [...] RBC Auto (Bld) [#/Vol] 10.8 10*3/uL 3.8-11.6 [facility] Lymphocytes Auto (Bld) [#/Vo l]Ordered By: Marilee Marcum on 08-06-2023 Lymphocytes (Bld) [#/Vol] 1.4 10*3/uL 1.00-4.8 [facility] Lymphocytes/100 WBC Auto (Bl d)Ordered By: Marilee Marcum on 08-06-2023 Lymphocytes/100 WBC (Bld) 12.5 % . [facility] MCH Auto (RBC) [Entitic mass ]Ordered By: Marilee Marcum on 08-06-2023 MCH (RBC) [Entitic mass] 32.9 pg 24.7-34.3 [facility] MCHC Auto (RBC) [Mass/Vol]Or dered By: Marilee Marcum on 08-06-2023 MCHC (RBC) [Mass/Vol] 33.7 g/dL 32.0-35.0 [facility] MCV Auto (RBC) [Entitic vol] Ordered By: Marilee Marcum on 08-06-2023 MCV (RBC) [Entitic vol] 97.6 fL 80-100 [facility] Monocyte distribution width [Entitic volume] in Blood by AutomatedOrdered By: Marilee Marcum on 08-06-2023 Monocyte distribution width Auto (Bld) [Entitic vol] 23.24 % 0.00-20.00 [facility] Comment on above: For adults in ED, MD W > 20.0 may be associated with a higher risk of sepsis during the first 12 hrs of hospital admission Monocytes Auto (Bld) [#/Vol] Ordered By: Marilee Marcum on 08-06-2023 Monocytes (Bld) [#/Vol] 0.8 10*3/uL 0.0-0.8 [facility] Monocytes/100 WBC Auto (Bld) Ordered By: Marilee Marcum on 08-06-2023 Monocytes/100 WBC (Bld) 7.7 % . [facility] Natriuretic peptide B [Mass/ Vol]Ordered By: Marilee Marcum on 08-06-2023 Natriuretic peptide B (Bld) [Mass/Vol] 29.0 pg/mL 5-100 [facility] Neutrophils Auto (Bld) [#/Vo l]Ordered By: Marilee Marcum on 08-06-2023 Neutrophils (Bld) [#/Vol] 8.5 10*3/uL 1.8-7.7 [facility] Neutrophils/100 WBC Auto (Bl d)Ordered By: Marilee Marcum on 08-06-2023 Neutrophils/100 WBC (Bld) 78.3 % . [facility] No Panel InformationOrdered By: Marilee Marcum on 08-06-2023 Estimated GFR (CKD-EPI) > 60.0 mL/Min [facility] Pharmacy Creatinine Clearance (Chem 116.58 [facility] Nucleated erythrocytes [Pres ence] in Blood by Automated countOrdered By: Marilee Marcum on 08-06-2023 Nucleated RBC Auto Ql (Bld) 0.1 /100{WBC} 0-0.5 [facility] Partial Thromboplastin Timeo n 08-06-2023 aPTT Coag (Bld) [Time] 32.3 s Normal 25.1-36.5 [facility] Comment on above: Result Comment: A he matocrit value greater than 55% may lead to inaccurate results in coagulation testing. Patients having hematocrit values >55% require a special collection tube for coagulation studies. Please contact the laboratory at [phone] for redraw instructions. PERFORMED BY: [place] [address] PATHOLOGIST RN STAFFING WAYNE WAKEFIELD M.D. Performed By: #### V ANCT #### [facility] [address] [place] [address] Platelet mean volume Auto (B ld) [Entitic vol]Ordered By: Marilee Marcum on 08-06-2023 Platelet mean volume (Bld) [Entitic vol] 7.3 fL 6.3-10.7 [facility] Platelets Auto (Bld) [#/Vol] Ordered By: Marilee Marcum on 08-06-2023 Platelets (Bld) [#/Vol] 237 10*3/uL 150-450 [facility] Potassium [Moles/volume] in Serum or PlasmaOrdered By: Marilee Marcum on 08-06-2023 Potassium [Moles/Vol] 3.7 mmol/L 3.5-5.1 [facility] Prothrombin Time INRon 08-06 INR Coag (PPP) [Relative time] 1.0 {INR} Normal [facility] Comment on above: Result Comment: INR Therapeutic [...] 4.5 Performed By: #### V ANCT #### [facility] [address] PT Coag (PPP) [Time] 11.3 s Normal 9.0-12.9 [facility] Comment on above: Result Comment: A he matocrit value greater than 55% may lead to inaccurate results in coagulation testing. Patients having hematocrit values >55% require a special collection tube for coagulation studies. Please contact the laboratory at [phone] for redraw instructions. Performed By: #### V ANCT #### [facility] [address] [place] [id number] [facility] Prothrombin time (PT)Ordered By: Marilee Marcum on 08-06-2023 PT Coag (PPP) [Time] 11.3 s 9.0-12.9 [facility] Comment on above: A hematocrit value g reater than 55% may lead to inaccurate results in coagulation testing. Patients having hematocrit values >55% require a special collection tube for coagulation studies. Please contact the laboratory at [phone] for redraw instructions. RBC Auto (Bld) [#/Vol]Ordere d By: Marilee Marcum on 08-06-2023 RBC (Bld) [#/Vol] 4.70 10*6/uL 3.60-5.00 [facility] Serum or plasma anion gap de terminationOrdered By: Marilee Marcum on 08-06-2023 Anion gap [Moles/Vol] 9.8 mmol/L 6.0-15.0 [facility] Sodium [Moles/volume] in Ser um or PlasmaOrdered By: Marilee Marcum on 08-06-2023 Sodium [Moles/Vol] 137 mmol/L 136-145 [facility] Troponin I High Sensitivityo n 08-06-2023 Troponin I High Sensitivity 8.9 pg/mL Normal 0.0-15.0 [facility] Comment on above: Result Comment: PERF ORMED BY: [place] [address] PATHOLOGIST RN STAFFING WAYNE WAKEFIELD M.D. Performed By: #### V ANCT #### [address] Troponin I.cardiac [Mass/vol ume] in Serum or Plasma by Detection limit <= 0.01 ng/Ordered By: Marilee Marcum on 08-06-2023 Troponin I.cardiac DL <= 0.01 ng/mL [Mass/Vol] 8.9 pg/mL 0.0-15.0 [facility] Urea nitrogen [Mass/volume] in Serum or PlasmaOrdered By: Marilee Marcum on 08-06-2023 Urea nitrogen [Mass/Vol] 8 mg/dL 7-25 [facility] WBC Auto (Bld) [#/Vol]Ordere d By: Marilee Marcum on 08-06-2023 WBC (Bld) [#/Vol] 10.8 10*3/uL 3.8-11.6 [facility] XR chest 2V*on 08-06-2023 XR chest 2V* [facility] Main [place] [address] [place] [address] XRay Report Signed Patient: Christiane Perez MR#: [id number] 2 : 1975 Acct:[id number] Age/Sex: 48 / F ADM Date: 08/06/23 Loc: ER Room: Type: [facility] ER Attending Dr: Copies to: Marilee Marcum [...] Giovanny Cleveland M.D.08/06/2023 8:42 PM Dictation Location: [place] [address] Transcribed By: [facility] 08/06/232041 Dictated By: Giovanny Cleveland DO 08/06/232038 Signed By: 08/06/232041 [facility] Basic Metabolic Panelon 12-0 Anion gap [Moles/Vol] 9.2 mmol/L Normal 6.0-15.0 [facility] Comment on above: Performed By: #### G LULS #### Point of Care testing , Calcium [Mass/Vol] 8.9 mg/dL Normal 8.6-10.3 [facility] Comment on above: Performed By: #### G LULS #### Point of Care testing , Chloride [Moles/Vol] 107 mmol/L Normal 98-107 [facility] Comment on above: Performed By: #### G LULS #### Point of Care testing , CO2 [Moles/Vol] 25.5 mmol/L Normal 21.0-31.0 [facility] Comment on above: Performed By: #### G LULS #### Point of Care testing , Creatinine [Mass/Vol] 0.70 mg/dL Normal 0.60-1.20 [facility] Comment on above: Performed By: #### G LULS #### Point of Care testing , Creatinine Clr Calc Pharmacy 119.81 [facility] Comment on above: Result Comment: PERF ORMED BY: [address] [place] [address] PATHOLOGIST RN STAFFING WAYNE WAKEFIELD M.D. Performed By: #### G LULS #### Point of Care testing , GFR/1.73 sq M.predicted MDRD (S/P/Bld) [Vol rate/Area] mL/min/{1.73_m2} Normal [facility] Comment on above: Performed By: #### G LULS #### Point of Care testing , Glucose [Mass/Vol] 50 mg/dL Low 70-100 [facility] Comment on above: Result Comment: [facility] Glucose Reference Range is dependent on time and content of last meal. Glucose of more than 200 mg/dL in a nonstressed, ambulatory subject supports the diagnosis of Diabetes Mellitus. ADA recommended reference range Performed By: #### G LULS #### Point of Care testing , Potassium [Moles/Vol] 3.7 mmol/L Normal 3.5-5.1 [facility] Comment on above: Performed By: #### G LULS #### Point of Care testing , Sodium [Moles/Vol] 138 mmol/L Normal 136-145 [facility] Comment on above: Performed By: #### G LULS #### Point of Care testing , Urea nitrogen [Mass/Vol] 10 mg/dL Normal 7-25 [facility] Comment on above: Performed By: #### G LULS #### Point of Care testing , Complete Blood Count Auto Di ffon 07-17-2023 Basophils (Bld) [#/Vol] 0.2 10*3/uL Normal 0.0-0.2 [facility] Comment on above: Result Comment: PERF ORMED BY: [facility] [address] [place] [address] PATHOLOGIST RN STAFFING WAYNE WAKEFIELD M.D. Performed By: #### G LULS #### Point of Care testing , Basophils/100 WBC (Bld) 1.1 % Normal . [facility] Comment on above: Performed By: #### G LULS #### Point of Care testing , Eosinophils (Bld) [#/Vol] 0.2 10*3/uL Normal 0.0-0.45 [facility] Comment on above: Performed By: #### G MARYLS #### Point of Care testing , Eosinophils/100 WBC (Bld) 1.2 % Normal . [facility] Comment on above: Performed By: #### G MARYLS #### Point of Care testing , Erythrocyte distribution width (RBC) [Ratio] 16.3 % High 11.9-15.3 [facility] Comment on above: Performed By: #### G MARYLS #### Point of Care testing , Hematocrit (Bld) [Volume fraction] 45.8 % Normal 34.0-46.4 [facility] Comment on above: Performed By: #### G MARYLS #### Point of Care testing , Hemoglobin (Bld) [Mass/Vol] 15.3 g/dL Normal 11.8-15.4 [facility] Comment on above: Performed By: #### G MARYLS #### Point of Care testing , Lymphocytes (Bld) [#/Vol] 4.4 10*3/uL Normal 1.00-4.8 [facility] Comment on above: Performed By: #### G MARYLS #### Point of Care testing , Lymphocytes/100 WBC (Bld) 32.3 % Normal . [facility] Comment on above: Performed By: #### G MARYLS #### Point of Care testing , MCH (RBC) [Entitic mass] 32.2 pg Normal 24.7-34.3 [facility] Comment on above: Performed By: #### G MARYLS #### Point of Care testing , MCV (RBC) [Entitic vol] 96.4 fL Normal 80-100 [facility] Comment on above: Performed By: #### G MARYLS #### Point of Care testing , Mean Corpuscular HGB Conc 33.4 g/dL Normal 32.0-35.0 [facility] Comment on above: Performed By: #### G MARYLS #### Point of Care testing , Monocytes (Bld) [#/Vol] 0.9 10*3/uL High 0.0-0.8 [facility] Comment on above: Performed By: #### G MARE #### Point of Care testing , Monocytes/100 WBC (Bld) 17.19 % Normal 0.00-20.00 [facility] Comment on above: Performed By: #### G MARE #### Point of Care testing , Monocytes/100 WBC (Bld) 6.8 % Normal . [facility] Comment on above: Performed By: #### G MARE #### Point of Care testing , Neutrophils (Bld) [#/Vol] 8.0 10*3/uL High 1.8-7.7 [facility] Comment on above: Performed By: #### G MARYLS #### Point of Care testing , Neutrophils/100 WBC (Bld) 58.6 % Normal . [facility] Comment on above: Performed By: #### G MARE #### Point of Care testing , NRBC% 0.1 /100{WBC} Normal 0-0.5 [facility] Comment on above: Performed By: #### Sophia GARVEY #### Point of Care testing , Platelet mean volume (Bld) [Entitic vol] 6.9 fL Normal 6.3-10.7 [facility] Comment on above: Performed By: #### Sophia GARVEY #### Point of Care testing , Platelets (Bld) [#/Vol] 414 10*3/uL Normal 150-450 [facility] Comment on above: Performed By: #### G MARE #### Point of Care testing , RBC (Bld) [#/Vol] 4.75 10*6/uL Normal 3.60-5.00 [facility] Comment on above: Performed By: #### G MARE #### Point of Care testing , WBC (Bld) [#/Vol] 13.6 10*3/uL High 3.8-11.6 [facility] Comment on above: Performed By: #### G MARYLS #### Point of Care testing , XR chest 1V portableon 07-17 XR chest 1V portable [facility] [place] [address] XRay Report Signed Patient: Christiane Perez MR#: [id number] 2 : 1975 Acct:[id number] Age/Sex: 48 / F ADM Date: 07/16/23 Loc: ER Room: Type: [facility] ER Attending Dr: Copies to: Yasmin [...] Shireen Caruso M.D.07/17/2023 8:50 AM Dictation Location: [place] [address] Transcribed By: CHARLI 07/17/23 0850 Dictated By: Shireen Caruso MD 07/17/23 0849 Signed By: 07/17/23 0850 Normal [facility] Basophils Auto (Bld) [#/Vol] Ordered By: Yasmin Leung on 07-16-2023 Basophils (Bld) [#/Vol] 0.2 10*3/uL 0.0-0.2 [facility] Basophils/100 WBC Auto (Bld) Ordered By: Yasmin Leung on 07-16-2023 Basophils/100 WBC (Bld) 1.1 % . [facility] Calcium [Mass/volume] in Ser um or PlasmaOrdered By: Yasmin Leung on 07-16-2023 Calcium [Mass/Vol] 8.9 mg/dL 8.6-10.3 [facility] Carbon dioxide, total [Moles /volume] in Serum or PlasmaOrdered By: Yasmin Leung on 07-16-2023 CO2 [Moles/Vol] 25.5 mmol/L 21.0-31.0 [facility] Chloride [Moles/volume] in S kaitlin or PlasmaOrdered By: Yasmin Leung on 07-16-2023 Chloride [Moles/Vol] 107 mmol/L 98-107 [facility] Creatinine [Mass/volume] in Serum or PlasmaOrdered By: Yasmin Leung on 07-16-2023 Creatinine [Mass/Vol] 0.70 mg/dL 0.60-1.20 [facility] ECG 12 lead ECGon 07-16-2023 ECG 12 lead ECG [facility] [place] [address] Electrocardiograph Report Signed Patient: Christiane Perez MR#: [id number] 2 : 1975 Acct:[id number] Age/Sex: 48 / F ADM Date: 07/16/23 Loc: ER Room: Type[facility] ER Attending Dr: Ordering Provider: Yasmin Leung [...] By Yasmin Leung MD 07/17/23 0119 Normal [facility] Eosinophils Auto (Bld) [#/Vo l]Ordered By: Yasmin Leung on 07-16-2023 Eosinophils (Bld) [#/Vol] 0.2 10*3/uL 0.0-0.45 [facility] Eosinophils/100 WBC Auto (Bl d)Ordered By: Yasmin Leung on 07-16-2023 Eosinophils/100 WBC (Bld) 1.2 % . [facility] Erythrocyte distribution wid th Auto (RBC) [Ratio]Ordered By: Yasmin Leung on 07-16-2023 Erythrocyte distribution width (RBC) [Ratio] 16.3 % 11.9-15.3 [facility] Glucose [Mass/volume] in Ser um or PlasmaOrdered By: Yasmin Leung on 07-16-2023 Glucose [Mass/Vol] 50 mg/dL 70-100 [facility] Comment on above: ADA recommended refe rence rangeRandom Glucose Reference Range is dependent on time and content of last meal. Glucose of more than 200 mg/dL in a nonstressed, ambulatory subject supports the diagnosis of Diabetes Mellitus. Hematocrit Auto (Bld) [Volum e fraction]Ordered By: Yasmin Leung on 07-16-2023 Hematocrit (Bld) [Volume fraction] 45.8 % 34.0-46.4 [facility] Hemoglobin [Mass/volume] in BloodOrdered By: Yasmin Leung on 07-16-2023 Hemoglobin (Bld) [Mass/Vol] 15.3 g/dL 11.8-15.4 [facility] Leukocytes [#/volume] correc billy for nucleated erythrocytes in Blood by Automated counOrdered By: Yasmin Leung on 07-16-2023 WBC corrected for nucl RBC Auto (Bld) [#/Vol] 13.6 10*3/uL 3.8-11.6 [facility] Lymphocytes Auto (Bld) [#/Vo l]Ordered By: Yasmin Leung on 07-16-2023 Lymphocytes (Bld) [#/Vol] 4.4 10*3/uL 1.00-4.8 [facility] Lymphocytes/100 WBC Auto (Bl d)Ordered By: Yasmin Leung on 07-16-2023 Lymphocytes/100 WBC (Bld) 32.3 % . [facility] MCH Auto (RBC) [Entitic mass ]Ordered By: Yasmin Leung on 07-16-2023 MCH (RBC) [Entitic mass] 32.2 pg 24.7-34.3 [facility] MCHC Auto (RBC) [Mass/Vol]Or dered By: Yasmin Leung on 07-16-2023 MCHC (RBC) [Mass/Vol] 33.4 g/dL 32.0-35.0 [facility] MCV Auto (RBC) [Entitic vol] Ordered By: Yasmin Leung on 07-16-2023 MCV (RBC) [Entitic vol] 96.4 fL 80-100 [facility] Monocyte distribution width [Entitic volume] in Blood by AutomatedOrdered By: Yasmin Leugn on 07-16-2023 Monocyte distribution width Auto (Bld) [Entitic vol] 17.19 % 0.00-20.00 [facility] Monocytes Auto (Bld) [#/Vol] Ordered By: Yasmin Leung on 07-16-2023 Monocytes (Bld) [#/Vol] 0.9 10*3/uL 0.0-0.8 [facility] Monocytes/100 WBC Auto (Bld) Ordered By: Yasmin Leung on 07-16-2023 Monocytes/100 WBC (Bld) 6.8 % . [facility] Neutrophils Auto (Bld) [#/Vo l]Ordered By: Yasmin Leung on 07-16-2023 Neutrophils (Bld) [#/Vol] 8.0 10*3/uL 1.8-7.7 [facility] Neutrophils/100 WBC Auto (Bl d)Ordered By: Yasmin Leung on 07-16-2023 Neutrophils/100 WBC (Bld) 58.6 % . [facility] No Panel InformationOrdered By: Yasmin Leung on 07-16-2023 Estimated GFR (CKD-EPI) > 60.0 mL/Min [facility] Pharmacy Creatinine Clearance (Chem 119.81 [facility] Nucleated erythrocytes [Pres ence] in Blood by Automated countOrdered By: Yasmin Leung on 07-16-2023 Nucleated RBC Auto Ql (Bld) 0.1 /100{WBC} 0-0.5 [facility] Platelet mean volume Auto (B ld) [Entitic vol]Ordered By: Yasmin Leung on 07-16-2023 Platelet mean volume (Bld) [Entitic vol] 6.9 fL 6.3-10.7 [facility] Platelets Auto (Bld) [#/Vol] Ordered By: Yasmin Leung on 07-16-2023 Platelets (Bld) [#/Vol] 414 10*3/uL 150-450 [facility] Potassium [Moles/volume] in Serum or PlasmaOrdered By: Yasmin Leung on 07-16-2023 Potassium [Moles/Vol] 3.7 mmol/L 3.5-5.1 [facility] RBC Auto (Bld) [#/Vol]Ordere d By: Yasmin Leung on 07-16-2023 RBC (Bld) [#/Vol] 4.75 10*6/uL 3.60-5.00 [facility] Serum or plasma anion gap de terminationOrdered By: Yasmin Leung on 07-16-2023 Anion gap [Moles/Vol] 9.2 mmol/L 6.0-15.0 [facility] Sodium [Moles/volume] in Ser um or PlasmaOrdered By: Yasmin Leung on 07-16-2023 Sodium [Moles/Vol] 138 mmol/L 136-145 [facility] Urea nitrogen [Mass/volume] in Serum or PlasmaOrdered By: Yasmin Leung on 07-16-2023 Urea nitrogen [Mass/Vol] 10 mg/dL 7-25 [facility] WBC Auto (Bld) [#/Vol]Ordere d By: Yasmin Leung on 07-16-2023 WBC (Bld) [#/Vol] 13.6 10*3/uL 3.8-11.6 [facility] COVID CepheidOrdered By: Antonio Villeda on 07-05-2023 SARS-CoV-2 (COVID-19) Ab IA Ql Negative Negative [facility] Comment on above: This is a duplicate Cepheid Xpert Xpress CoV-2/Flu/RSV Plus RNA by RT-PCR result to be used for statistical tracking purpose only. SARS-CoV-2 (COVID-19) RNA SOILA+probe Ql (Unsp spec) [facility] COVID-19 / Flu A/B / RSV PCR [...] or Cepheid Disclaimer revoked sooner. PERFORMED BY: [facility] [address] [place] [address] PATHOLOGIST RN STAFFING WAYNE WAKEFIELD M.D. Normal [facility] Comment on above: Performed By: #### G LULS #### Point of Care testing , Cepheid COVID PCR Negativeon 07-05-2023 SARS-CoV-2 (COVID-19) RNA SOILA+probe Ql (Unsp spec) Negative Normal Negative [facility] Comment on above: Result Comment: This is a duplicate Cepheid Xpert Xpress CoV-2/Flu/RSV Plus RNA by RT-PCR result to be used for statistical tracking purpose only. PERFORMED BY: [facility] [address] [place] [address] PATHOLOGIST RN STAFFING WAYNE WAKEFIELD M.D. Performed By: #### G LULS #### Point of Care testing , XR chest 2V*on 07-05-2023 XR chest 2V* [facility] Main [place] [address] [place] [address] XRay Report Signed Patient: Christiane Perez MR#: [id number] 2 : 1975 Acct:[id number] Age/Sex: 48 / F ADM Date: 07/05/23 Loc: ER Room: Type: [facility] ER Attending Dr: Copies to: Elio Villeda [...] Giovanny Cleveland M.D.07/05/2023 2:41 PM Dictation Location: [place] [address] Transcribed By: [facility] 07/05/23 1441 Dictated By: Giovanny Cleveland DO 07/05/23 1437 Signed By: 07/05/23 1441 Normal [facility] Quick Strepon 06-20-2023 S. pyogenes Org specific cx Ql (Throat) Negative [employer] Other Quick Strep [employer] Other CT chest wo conon 04-09-2023 CT chest wo con [facility] [place] [address] [place] [address] Scan Report Signed Patient: Christiane Perez MR#: [id number] 2 : 1975 Acct:[id number] Age/Sex: 48 / F ADM Date: 04/09/23 Loc: [facility] Room: Type: [facility] Attending Dr: Valeriano Horta MD Copies to: [...] Johnson Jr., D.OJosue04/09/2023 3:00 PM Dictation Location: [place] [address] Transcribed By: [facility] 04/09/23 1500 Dictated By: Rodger Johnson Jr, DO 04/09/23 1453 Signed By: 04/09/23 1500 Normal [facility] SURGICAL PATHOLOGY REFERENCE LAB CONSULTon 03-19-2023 CASE REPORT Normal [facility] Comment on above: Order Comment: Speci men Type: SLIDE Ordering Facility: [facility] Address: [address] [place] [phone] Result Comment: Surg [facility] Pathology Report Case: [id number] Authorizing Provider: Gregory Aranda MD Collected: 03/19/2023 09:16 AM Ordering Location: [facility] Main Received: 03/19/2023 09:14 AM Pathologist: Mando Gar MD Specimen: SLIDE(S), 8 SLIDES [id number] Performed By: #### L [id number] #### [facility] CLIA [id number] [address] [facility] [address] CLINICAL HISTORY CONSULT REQUESTED [facility] Comment on above: Order Comment: Speci men Type: SLIDE Ordering Facility: [facility] Address: [address] [place] [phone] Performed By: #### L [id number] #### [facility] CLIA [id number] [address] [place] [address] DIAGNOSIS COMMENT Normal [facility] Comment on above: Order Comment: Speci men Type: SLIDE Ordering Facility: [facility] Address: [address] [place] [phone] Result Comment: Than k you for sharing [...] available, is recommended. Performed By: #### L [id number] #### [facility] CLIA [id number] [address] [place] [address] [place] FINAL DIAGNOSIS Normal [facility] Comment on above: Order Comment: Speci tee Type: SLIDE Ordering Facility: [facility] Address: [address] [place] [phone] Result Comment: Lung , left upper lobe, transbronchial biopsy ([id number], A1; 03/11/2023): -Organizing acute lung injury with fibrin and acute inflammation Performed By: #### L [id number] #### [facility] CLIA [id number] [address] [place] [address] [place] FINAL PERFORMING LAB Normal [facility] Comment on above: Order Comment: Speci tee Type: SLIDE Ordering Facility: [facility] Address: [address] [place], [place] [phone] Result Comment: Diag nostic interpretation performed at [facility], [address] [place] [address] CLIA# [id number] Information Tech: Don Meehan M.D. Performed By: #### L [id number] #### [facility] CLIA [id number] [address] [place] [address] [place] XR chest 1V portableon 03-17 XR chest 1V portable [facility] Main [address] [address] XRay Report Signed Patient: Christiane Perez MR#: [id number] 2 : 1975 Acct:[id number] Age/Sex: 48 / F ADM Date: 03/10/23 Loc: 3T Room: [address] [place] [address] Type: DIS IN Attending Dr: Krunal Kelly [...] Johnson Jr., D.O.03/17/2023 10:12 AM Dictation Location: [place] [address] Transcribed By: [facility] 03/17/23 1012 Dictated By: Rodger Johnson Jr, DO 03/17/23 1012 Signed By: 03/17/23 1012 Normal [facility] A1C with Estimated Average G shilpi 03-14-2023 Glucose [Mass/Vol] 171 mg/dL Normal [facility] Comment on above: Result Comment: PERF ORMED BY: [facility] [address] [place] [address] PATHOLOGIST RN STAFFING WAYNE WAKEFIELD M.D. Performed By: #### G LULS #### Point of Care testing , HbA1c (Bld) [Mass fraction] 7.6 % High 4.3-5.6 [facility] Comment on above: Result Comment: Incr eased risk for diabetes: 5.7 - 6.4 diabetes: >6.4 glycemic control for adults with diabetes: <7.0 Performed By: #### G LULS #### Point of Care testing , Alanine aminotransferase [En zymatic activity/volume] in Serum or PlasmaOrdered By: Krunal Kelly on 03-14-2023 ALT [Catalytic activity/Vol] 5 U/L 7-52 [facility] Albumin [Mass/volume] in Ser um or Plasma by Bromocresol green (BCG) dye binding methoOrdered By: Krunal Kelly on 03-14-2023 Albumin BCG dye [Mass/Vol] 2.9 g/dL 3.5-5.7 [facility] Alkaline phosphatase [Enzyma tic activity/volume] in Serum or PlasmaOrdered By: Krunal Kelly on 03-14-2023 ALP [Catalytic activity/Vol] 94 U/L 34-104 [facility] Aspartate aminotransferase [ Enzymatic activity/volume] in Serum or PlasmaOrdered By: Krunal Kelly on 03-14-2023 AST [Catalytic activity/Vol] 8 U/L 13-39 [facility] Basophils Auto (Bld) [#/Vol] Ordered By: Eron Wood on 03-14-2023 Basophils (Bld) [#/Vol] 0.1 10*3/uL 0.0-0.2 [facility] Basophils/100 WBC Auto (Bld) Ordered By: Eron Wood on 03-14-2023 Basophils/100 WBC (Bld) 0.7 % . [facility] Bilirubin.total [Mass/volume ] in Serum or PlasmaOrdered By: Krunal Kelly on 03-14-2023 Bilirubin [Mass/Vol] 0.7 mg/dL 0.3-1.0 [facility] Calcium [Mass/volume] in Ser um or PlasmaOrdered By: Krunal Kelly on 03-14-2023 Calcium [Mass/Vol] 8.3 mg/dL 8.6-10.3 [facility] Carbon dioxide, total [Moles /volume] in Serum or PlasmaOrdered By: Krunal Kelly on 03-14-2023 CO2 [Moles/Vol] 24.8 mmol/L 21.0-31.0 [facility] Chloride [Moles/volume] in S kaitlin or PlasmaOrdered By: Krunal Kelly on 03-14-2023 Chloride [Moles/Vol] 108 mmol/L 98-107 [facility] Complete Blood Count Auto Di ffon 03-14-2023 Basophils (Bld) [#/Vol] 0.1 10*3/uL Normal 0.0-0.2 [facility] Comment on above: Result Comment: PERF ORMED BY: [place] [address] PATHOLOGIST RN STAFFING WAYNE WAKEFIELD M.D. Performed By: #### V ANCT #### [address] Basophils/100 WBC (Bld) 0.7 % Normal . [facility] Comment on above: Performed By: #### V ANCT #### [address] Eosinophils (Bld) [#/Vol] 0.4 10*3/uL Normal 0.0-0.45 [facility] Comment on above: Performed By: #### V ANCT #### [address] Eosinophils/100 WBC (Bld) 4.4 % Normal . [facility] Comment on above: Performed By: #### V ANCT #### [address] Erythrocyte distribution width (RBC) [Ratio] 15.5 % High 11.9-15.3 [facility] Comment on above: Performed By: #### V ANCT #### [address] Hematocrit (Bld) [Volume fraction] 35.1 % Normal 34.0-46.4 [facility] Comment on above: Performed By: #### V ANCT #### [place] [address] [place] Hemoglobin (Bld) [Mass/Vol] 12.0 g/dL Normal 11.8-15.4 [facility] Comment on above: Performed By: #### V ANCT #### [place] [address] [place] Lymphocytes (Bld) [#/Vol] 1.6 10*3/uL Normal 1.00-4.8 [facility] Comment on above: Performed By: #### V ANCT #### [address] Lymphocytes/100 WBC (Bld) 16.8 % Normal . [facility] Comment on above: Performed By: #### V ANCT #### [address] MCH (RBC) [Entitic mass] 32.8 pg Normal 24.7-34.3 [facility] Comment on above: Performed By: #### V ANCT #### [address] MCV (RBC) [Entitic vol] 96.4 fL Normal 80-100 [facility] Comment on above: Performed By: #### V ANCT #### [address] Mean Corpuscular HGB Conc 34.1 g/dL Normal 32.0-35.0 [facility] Comment on above: Performed By: #### V ANCT #### [address] Monocytes (Bld) [#/Vol] 0.7 10*3/uL Normal 0.0-0.8 [facility] Comment on above: Performed By: #### V ANCT #### [address] Monocytes/100 WBC (Bld) 7.1 % Normal . [facility] Comment on above: Performed By: #### V ANCT #### [address] Neutrophils (Bld) [#/Vol] 6.8 10*3/uL Normal 1.8-7.7 [facility] Comment on above: Performed By: #### V ANCT #### [address] Neutrophils/100 WBC (Bld) 71.0 % Normal . [facility] Comment on above: Performed By: #### V ANCT #### [place] [address] [place] NRBC% 0.1 /100{WBC} Normal 0-0.5 [facility] Comment on above: Performed By: #### V ANCT #### [address] Platelet mean volume (Bld) [Entitic vol] 6.2 fL Low 6.3-10.7 [facility] Comment on above: Performed By: #### V ANCT #### [address] Platelets (Bld) [#/Vol] 424 10*3/uL Normal 150-450 [facility] Comment on above: Performed By: #### V ANCT #### [address] RBC (Bld) [#/Vol] 3.65 10*6/uL Normal 3.60-5.00 [facility] Comment on above: Performed By: #### V ANCT #### [address] WBC (Bld) [#/Vol] 9.6 10*3/uL Normal 3.8-11.6 [facility] Comment on above: Performed By: #### Irena ANCT #### [address] Comprehensive Metabolic Pane moose 03-14-2023 Albumin [Mass/Vol] 2.9 g/dL Low 3.5-5.7 [facility] Comment on above: Performed By: #### G LUAUGUSTIN #### Point of Care testing , Albumin/Globulin [Mass ratio] 0.8 {ratio} Normal [facility] Comment on above: Performed By: #### G MARE #### Point of Care testing , ALP [Catalytic activity/Vol] 94 U/L Normal 34-104 [facility] Comment on above: Performed By: #### G MARYLS #### Point of Care testing , ALT [Catalytic activity/Vol] 5 U/L Low 7-52 [facility] Comment on above: Performed By: #### G LULS #### Point of Care testing , Anion gap [Moles/Vol] 8.9 mmol/L Normal 6.0-15.0 [facility] Comment on above: Performed By: #### G MARYLS #### Point of Care testing , AST [Catalytic activity/Vol] 8 U/L Low 13-39 [facility] Comment on above: Performed By: #### G MARYLS #### Point of Care testing , Bilirubin [Mass/Vol] 0.7 mg/dL Normal 0.3-1.0 [facility] Comment on above: Performed By: #### G MARYLS #### Point of Care testing , Calcium [Mass/Vol] 8.3 mg/dL Low 8.6-10.3 [facility] Comment on above: Performed By: #### G MARYLS #### Point of Care testing , Chloride [Moles/Vol] 108 mmol/L High 98-107 [facility] Comment on above: Performed By: #### G MARYLS #### Point of Care testing , CO2 [Moles/Vol] 24.8 mmol/L Normal 21.0-31.0 [facility] Comment on above: Performed By: #### G MARYLS #### Point of Care testing , Creatinine [Mass/Vol] 0.68 mg/dL Normal 0.60-1.20 [facility] Comment on above: Performed By: #### G MARYLS #### Point of Care testing , Creatinine Clr Calc Pharmacy 119.15 [facility] Comment on above: Result Comment: PERF ORMED BY: [facility] [address] [place] [address] PATHOLOGIST RN STAFFING WAYNE WAKEFIELD M.D. Performed By: #### G MARYLS #### Point of Care testing , GFR/1.73 sq M.predicted MDRD (S/P/Bld) [Vol rate/Area] mL/min/{1.73_m2} [facility] Comment on above: Performed By: #### G MARYLS #### Point of Care testing , Globulin (S) [Mass/Vol] 3.7 g/dL [facility] Comment on above: Performed By: #### G LULS #### Point of Care testing , Glucose [Mass/Vol] 86 mg/dL Normal 70-100 [facility] Comment on above: Result Comment: [place] Glucose Reference Range is dependent on time and content of last meal. Glucose of more than 200 mg/dL in a nonstressed, ambulatory subject supports the diagnosis of Diabetes Mellitus. ADA recommended reference range Performed By: #### G LULS #### Point of Care testing , Potassium [Moles/Vol] 3.7 mmol/L Normal 3.5-5.1 [facility] Comment on above: Performed By: #### G LULS #### Point of Care testing , Protein [Mass/Vol] 6.6 g/dL Normal 6.4-8.9 [facility] Comment on above: Performed By: #### G LULS #### Point of Care testing , Sodium [Moles/Vol] 138 mmol/L Normal 136-145 [facility] Comment on above: Performed By: #### G LULS #### Point of Care testing , Urea nitrogen [Mass/Vol] 6 mg/dL Low 7-25 [facility] Comment on above: Performed By: #### G LULS #### Point of Care testing , Creatinine [Mass/volume] in Serum or PlasmaOrdered By: Krunal Kelly on 03-14-2023 Creatinine [Mass/Vol] 0.68 mg/dL 0.60-1.20 [facility] Eosinophils Auto (Bld) [#/Vo l]Ordered By: Eron Wood on 03-14-2023 Eosinophils (Bld) [#/Vol] 0.4 10*3/uL 0.0-0.45 [facility] Eosinophils/100 WBC Auto (Bl d)Ordered By: Eron Wood on 03-14-2023 Eosinophils/100 WBC (Bld) 4.4 % . [facility] Erythrocyte distribution wid th Auto (RBC) [Ratio]Ordered By: Eron Wood on 03-14-2023 Erythrocyte distribution width (RBC) [Ratio] 15.5 % 11.9-15.3 [facility] Globulin Calc (S) [Mass/Vol] Ordered By: Krunal Kelly on 03-14-2023 Globulin (S) [Mass/Vol] 3.7 g/dL [facility] Glucose Glucometer (BldC) [M ass/Vol]Ordered By: Krunal Kelly on 03-14-2023 Glucose [Mass/Vol] 249 mg/dL [facility] Comment on above: Random Glucose Refer ence Range is dependent on time and content of last meal. Glucose of more than 200 mg/dL in a nonstressed, ambulatory subject supports the diagnosis of Diabetes Mellitus. Glucose Poct Glucometerson 0 03-14-2023 Glucose [Mass/Vol] 249 mg/dL Normal [facility] Comment on above: Result Comment: [place] om Glucose Reference Range is dependent on time and content of last meal. Glucose of more than 200 mg/dL in a nonstressed, ambulatory subject supports the diagnosis of Diabetes Mellitus. PERFORMED BY: [facility] [address] [place] [address] PATHOLOGIST RN STAFFING WAYNE WAKEFIELD M.D. Performed By: #### G LULS #### Point of Care testing , Commemt1 Glu2: Cleaned Meter Normal [facility] Comment on above: Result Comment: PERF ORMED BY: [facility] [address] [place] [address] PATHOLOGIST RN STAFFING WAYNE WAKEFIELD M.D. Performed By: #### G LULS #### Point of Care testing , Glucose [Mass/Vol] 95 mg/dL Normal [facility] Comment on above: Result Comment: [place] om Glucose Reference Range is dependent on time and content of last meal. Glucose of more than 200 mg/dL in a nonstressed, ambulatory subject supports the diagnosis of Diabetes Mellitus. Performed By: #### G LULS #### Point of Care testing , Glucose [Mass/volume] in Ser um or PlasmaOrdered By: Krunal Kelly on 03-14-2023 Glucose [Mass/Vol] 86 mg/dL 70-100 [facility] Comment on above: ADA recommended refe [...] from glycated hemoglobin (Bld) [Mass/Vol] 171 mg/dL [facility] Hematocrit Auto (Bld) [Volum e fraction]Ordered By: Eron Wood on 03-14-2023 Hematocrit (Bld) [Volume fraction] 35.1 % 34.0-46.4 [facility] Hemoglobin A1c percentageOrd ered By: Krunal Kelly on 03-14-2023 HbA1c (Bld) [Mass fraction] 7.6 % 4.3-5.6 [facility] Comment on above: Increased risk for d iabetes: 5.7 - 6.4diabetes: >6.4glycemic control for adults with diabetes: <7.0 Hemoglobin [Mass/volume] in BloodOrdered By: Eron Wood on 03-14-2023 Hemoglobin (Bld) [Mass/Vol] 12.0 g/dL 11.8-15.4 [facility] Leukocytes [#/volume] correc billy for nucleated erythrocytes in Blood by Automated counOrdered By: Eron Wood on 03-14-2023 WBC corrected for nucl RBC Auto (Bld) [#/Vol] 9.6 10*3/uL 3.8-11.6 [facility] Lymphocytes Auto (Bld) [#/Vo l]Ordered By: Eron Wood on 03-14-2023 Lymphocytes (Bld) [#/Vol] 1.6 10*3/uL 1.00-4.8 [facility] Lymphocytes/100 WBC Auto (Bl d)Ordered By: Eron Wood on 03-14-2023 Lymphocytes/100 WBC (Bld) 16.8 % . [facility] MCH Auto (RBC) [Entitic mass ]Ordered By: Eron Wood on 03-14-2023 MCH (RBC) [Entitic mass] 32.8 pg 24.7-34.3 [facility] MCHC Auto (RBC) [Mass/Vol]Or dered By: Eron Wood on 03-14-2023 MCHC (RBC) [Mass/Vol] 34.1 g/dL 32.0-35.0 [facility] MCV Auto (RBC) [Entitic vol] Ordered By: Eron Wood on 03-14-2023 MCV (RBC) [Entitic vol] 96.4 fL 80-100 [facility] Monocytes Auto (Bld) [#/Vol] Ordered By: Eron Wood on 03-14-2023 Monocytes (Bld) [#/Vol] 0.7 10*3/uL 0.0-0.8 [facility] Monocytes/100 WBC Auto (Bld) Ordered By: Eron Wood on 03-14-2023 Monocytes/100 WBC (Bld) 7.1 % . [facility] Neutrophils Auto (Bld) [#/Vo l]Ordered By: Eron Wood on 03-14-2023 Neutrophils (Bld) [#/Vol] 6.8 10*3/uL 1.8-7.7 [facility] Neutrophils/100 WBC Auto (Bl d)Ordered By: Eron Wood on 03-14-2023 Neutrophils/100 WBC (Bld) 71.0 % . [facility] No Panel InformationOrdered By: Krunal Kelly on 03-14-2023 Bedside Glucose Comment Glu2: cleaned meter [facility] Estimated GFR (CKD-EPI) > 60.0 mL/Min [facility] Pharmacy Creatinine Clearance (Chem 119.15 [facility] Nucleated erythrocytes [Pres ence] in Blood by Automated countOrdered By: Eron Wood on 03-14-2023 Nucleated RBC Auto Ql (Bld) 0.1 /100{WBC} 0-0.5 [facility] Platelet mean volume Auto (B ld) [Entitic vol]Ordered By: Eron Wood on 03-14-2023 Platelet mean volume (Bld) [Entitic vol] 6.2 fL 6.3-10.7 [facility] Platelets Auto (Bld) [#/Vol] Ordered By: Eron Wood on 03-14-2023 Platelets (Bld) [#/Vol] 424 10*3/uL 150-450 [facility] Potassium [Moles/volume] in Serum or PlasmaOrdered By: Krunal Kelly on 03-14-2023 Potassium [Moles/Vol] 3.7 mmol/L 3.5-5.1 [facility] Protein [Mass/volume] in Ser um or PlasmaOrdered By: Krunal Kelly on 03-14-2023 Protein [Mass/Vol] 6.6 g/dL 6.4-8.9 [facility] RBC Auto (Bld) [#/Vol]Ordere d By: Eron Wood on 03-14-2023 RBC (Bld) [#/Vol] 3.65 10*6/uL 3.60-5.00 [facility] Serum or plasma albumin/glob ulin mass ratioOrdered By: Krunal Kelly on 03-14-2023 Albumin/Globulin [Mass ratio] 0.8 {ratio} [facility] Serum or plasma anion gap de terminationOrdered By: Krunal Kelly on 03-14-2023 Anion gap [Moles/Vol] 8.9 mmol/L 6.0-15.0 [facility] Sodium [Moles/volume] in Ser um or PlasmaOrdered By: Krunal Kelly on 03-14-2023 Sodium [Moles/Vol] 138 mmol/L 136-145 [facility] Urea nitrogen [Mass/volume] in Serum or PlasmaOrdered By: Krunal Kelly on 03-14-2023 Urea nitrogen [Mass/Vol] 6 mg/dL 7-25 [facility] WBC Auto (Bld) [#/Vol]Ordere d By: Eron Wood on 03-14-2023 WBC (Bld) [#/Vol] 9.6 10*3/uL 3.8-11.6 [facility] Basic Metabolic Panelon 02-14 Anion gap [Moles/Vol] 8.9 mmol/L Normal 6.0-15.0 [facility] Comment on above: Performed By: #### C BC, BMP, MG #### [facility] [address] Calcium [Mass/Vol] 8.4 mg/dL Low 8.6-10.3 [facility] Comment on above: Performed By: #### C BC, BMP, MG #### [facility] [address] Chloride [Moles/Vol] 109 mmol/L High 98-107 [facility] Comment on above: Performed By: #### C BC, BMP, MG #### [facility] [address] CO2 [Moles/Vol] 24.9 mmol/L Normal 21.0-31.0 [facility] Comment on above: Performed By: #### C BC, BMP, MG #### [address] Creatinine [Mass/Vol] 0.61 mg/dL Normal 0.60-1.20 [facility] Comment on above: Performed By: #### C BC, BMP, MG #### [place] [address] [place] Creatinine Clr Calc Pharmacy 132.97 [facility] Comment on above: Result Comment: PERF ORMED BY: [place] [address] PATHOLOGIST RN STAFFING WAYNE WAKEFIELD M.D. Performed By: #### C BC, BMP, MG #### [place] [address] [place] GFR/1.73 sq M.predicted MDRD (S/P/Bld) [Vol rate/Area] mL/min/{1.73_m2} [facility] Comment on above: Performed By: #### C BC, BMP, MG #### [place] [address] [place] Glucose [Mass/Vol] 97 mg/dL Normal 70-100 [facility] Comment on above: Result Comment: [facility] Glucose Reference Range is dependent on time and content of last meal. Glucose of more than 200 mg/dL in a nonstressed, ambulatory subject supports the diagnosis of Diabetes Mellitus. ADA recommended reference range Performed By: #### C BC, BMP, MG #### [facility] [address] Potassium [Moles/Vol] 3.8 mmol/L Normal 3.5-5.1 [facility] Comment on above: Performed By: #### C BC, BMP, MG #### [facility] [address] Sodium [Moles/Vol] 139 mmol/L Normal 136-145 [facility] Comment on above: Performed By: #### C BC, BMP, MG #### [facility] [address] Urea nitrogen [Mass/Vol] 6 mg/dL Low 7-25 [facility] Comment on above: Performed By: #### C BC, BMP, MG #### [facility] [address] Complete Blood Count Auto Di ffon 03-13-2023 Basophils (Bld) [#/Vol] 0.0 10*3/uL Normal 0.0-0.2 [facility] Comment on above: Result Comment: PERF ORMED BY: [place] [address] PATHOLOGIST RN STAFFING WAYNE WAKEFIELD M.D. Performed By: #### C BC, BMP, MG #### [facility] [address] [place] [address] [place] Basophils/100 WBC (Bld) 0.5 % Normal . [facility] Comment on above: Performed By: #### C BC, BMP, MG #### [facility] [address] Eosinophils (Bld) [#/Vol] 0.4 10*3/uL Normal 0.0-0.45 [facility] Comment on above: Performed By: #### C BC, BMP, MG #### [facility] [address] [place] [address] [place] Eosinophils/100 WBC (Bld) 4.5 % Normal . [facility] Comment on above: Performed By: #### C BC, BMP, MG #### [facility] [address] Erythrocyte distribution width (RBC) [Ratio] 15.7 % High 11.9-15.3 [facility] Comment on above: Performed By: #### C BC, BMP, MG #### [address] Hematocrit (Bld) [Volume fraction] 36.2 % Normal 34.0-46.4 [facility] Comment on above: Performed By: #### C BC, BMP, MG #### [facility] [address] Hemoglobin (Bld) [Mass/Vol] 12.1 g/dL Normal 11.8-15.4 [facility] Comment on above: Performed By: #### C BC, BMP, MG #### [address] Lymphocytes (Bld) [#/Vol] 1.5 10*3/uL Normal 1.00-4.8 [facility] Comment on above: Performed By: #### C BC, BMP, MG #### [facility] [address] [place] [address] [place] Lymphocytes/100 WBC (Bld) 16.5 % Normal . [facility] Comment on above: Performed By: #### C BC, BMP, MG #### [facility] [address] [place] [address] [place] MCH (RBC) [Entitic mass] 32.3 pg Normal 24.7-34.3 [facility] Comment on above: Performed By: #### C BC, BMP, MG #### [facility] [address] [place] [address] MCV (RBC) [Entitic vol] 96.7 fL Normal 80-100 [facility] Comment on above: Performed By: #### C BC, BMP, MG #### [facility] [address] Mean Corpuscular HGB Conc 33.4 g/dL Normal 32.0-35.0 [facility] Comment on above: Performed By: #### C BC, BMP, MG #### [facility] [address] Monocytes (Bld) [#/Vol] 0.7 10*3/uL Normal 0.0-0.8 [facility] Comment on above: Performed By: #### C BC, BMP, MG #### [facility] [address] [place] [address] Monocytes/100 WBC (Bld) 8.0 % Normal . [facility] Comment on above: Performed By: #### C BC, BMP, MG #### [facility] [address] [place] [address] Neutrophils (Bld) [#/Vol] 6.6 10*3/uL Normal 1.8-7.7 [facility] Comment on above: Performed By: #### C BC, BMP, MG #### [facility] [address] [place] [address] Neutrophils/100 WBC (Bld) 70.5 % Normal . [facility] Comment on above: Performed By: #### C BC, BMP, MG #### [facility] [address] [place] [address] NRBC% 0.1 /100{WBC} Normal 0-0.5 [facility] Comment on above: Performed By: #### C BC, BMP, MG #### [facility] [address] [place] [address] Platelet mean volume (Bld) [Entitic vol] 6.6 fL Normal 6.3-10.7 [facility] Comment on above: Performed By: #### C BC, BMP, MG #### [facility] [address] [place] [address] [place] Platelets (Bld) [#/Vol] 398 10*3/uL Normal 150-450 [facility] Comment on above: Performed By: #### C BC, BMP, MG #### [facility] [address] [place] [address] RBC (Bld) [#/Vol] 3.75 10*6/uL Normal 3.60-5.00 [facility] Comment on above: Performed By: #### C BC, BMP, MG #### [address] WBC (Bld) [#/Vol] 9.3 10*3/uL Normal 3.8-11.6 [facility] Comment on above: Performed By: #### C BC, BMP, MG #### [address] Glucose Poct Glucometerson 0 03-13-2023 Commemt1 Glu2: Cleaned Meter Normal [facility] Comment on above: Result Comment: PERF ORMED BY: [place] [address] PATHOLOGIST RN STAFFING WAYNE WAKEFIELD M.D. Performed By: #### V ANCT #### [address] Glucose [Mass/Vol] 152 mg/dL Normal [facility] Comment on above: Result Comment: [place] Glucose Reference Range is dependent on time and content of last meal. Glucose of more than 200 mg/dL in a nonstressed, ambulatory subject supports the diagnosis of Diabetes Mellitus. Performed By: #### V ANCT #### [address] Glucose [Mass/Vol] 190 mg/dL Normal [facility] Comment on above: Result Comment: [place] om Glucose Reference Range is dependent on time and content of last meal. Glucose of more than 200 mg/dL in a nonstressed, ambulatory subject supports the diagnosis of Diabetes Mellitus. PERFORMED BY: [place] [address] PATHOLOGIST RN STAFFING WAYNE WAKEFIELD M.D. Performed By: #### G LULS #### Point of Care testing , Glucose [Mass/Vol] 176 mg/dL Normal [facility] Comment on above: Result Comment: [facility] Glucose Reference Range is dependent on time and content of last meal. Glucose of more than 200 mg/dL in a nonstressed, ambulatory subject supports the diagnosis of Diabetes Mellitus. PERFORMED BY: [facility] [address] [place] [address] PATHOLOGIST RN STAFFING WAYNE WAKEFIELD M.D. Performed By: #### G LULS #### Point of Care testing , Glucose [Mass/Vol] 107 mg/dL Normal [facility] Comment on above: Result Comment: [facility] Glucose Reference Range is dependent on time and content of last meal. Glucose of more than 200 mg/dL in a nonstressed, ambulatory subject supports the diagnosis of Diabetes Mellitus. PERFORMED BY: [facility] [address] [place] [address] PATHOLOGIST RN STAFFING WAYNE WAKEFIELD M.D. Performed By: #### G LULS #### Point of Care testing , Glucose [Mass/Vol] 101 mg/dL Normal [facility] Comment on above: Result Comment: [facility] Glucose Reference Range is dependent on time and content of last meal. Glucose of more than 200 mg/dL in a nonstressed, ambulatory subject supports the diagnosis of Diabetes Mellitus. PERFORMED BY: [facility] [address] [place] [address] PATHOLOGIST RN STAFFING WAYNE WAKEFIELD M.D. Performed By: #### G LULS #### Point of Care testing , Serum or plasma trough vanco mycin levelOrdered By: Eron Wood on 03-13-2023 Vancomycin trough [Mass/Vol] 16.8 ug/mL 10.0-20.0 [facility] Comment on above: Last dose: - Vancomycin,Troughon 03-13-20 Vancomycin,Trough 16.8 ug/mL Normal 10.0-20.0 [facility] Comment on above: Result Comment: Last dose: - PERFORMED BY: [facility] [address] [place] [address] PATHOLOGIST RN STAFFING WAYNE WAKEFIELD M.D. Performed By: #### G LULS #### Point of Care testing , Ammoniaon 03-12-2023 Ammonia (P) [Moles/Vol] 31 umol/L Normal [facility] Comment on above: Result Comment: PERF ORMED BY: [facility] [address] [place] [address] PATHOLOGIST RN STAFFING WAYNE WAKEFIELD M.D. Performed By: #### G LULS #### Point of Care testing , Ammonia [Moles/volume] in Pl asmaOrdered By: Víctor Stallings on 03-12-2023 Ammonia (P) [Moles/Vol] 31 umol/L [facility] Amphetamine Screen Ql (U)Ord ered By: Eron Wood on 03-12-2023 Amphetamines Ql (U) Negative Negative [facility] Barbiturates [Presence] in U rine by Screen methodOrdered By: Eron Wood on 03-12-2023 Barbiturates Screen Ql (U) Negative Negative [facility] Basic Metabolic Panelon 02-14 Anion gap [Moles/Vol] 9.5 mmol/L Normal 6.0-15.0 [facility] Comment on above: Performed By: #### G LULS #### Point of Care testing , Calcium [Mass/Vol] 8.2 mg/dL Low 8.6-10.3 [facility] Comment on above: Performed By: #### G LULS #### Point of Care testing , Chloride [Moles/Vol] 109 mmol/L High 98-107 [facility] Comment on above: Performed By: #### G LULS #### Point of Care testing , CO2 [Moles/Vol] 23.3 mmol/L Normal 21.0-31.0 [facility] Comment on above: Performed By: #### G LULS #### Point of Care testing , Creatinine [Mass/Vol] 0.73 mg/dL Normal 0.60-1.20 [facility] Comment on above: Performed By: #### G LULS #### Point of Care testing , Creatinine Clr Calc Pharmacy 111.29 [facility] Comment on above: Result Comment: PERF ORMED BY: [facility] [address] [place] [address] PATHOLOGIST RN STAFFING WAYNE WAKEFIELD M.D. Performed By: #### G LULS #### Point of Care testing , GFR/1.73 sq M.predicted MDRD (S/P/Bld) [Vol rate/Area] mL/min/{1.73_m2} [facility] Comment on above: Performed By: #### G LULS #### Point of Care testing , Glucose [Mass/Vol] 62 mg/dL Low 70-100 [facility] Comment on above: Result Comment: [facility] Glucose Reference Range is dependent on time and content of last meal. Glucose of more than 200 mg/dL in a nonstressed, ambulatory subject supports the diagnosis of Diabetes Mellitus. ADA recommended reference range Performed By: #### G LULS #### Point of Care testing , Potassium [Moles/Vol] 3.8 mmol/L Normal 3.5-5.1 [facility] Comment on above: Performed By: #### G LULS #### Point of Care testing , Sodium [Moles/Vol] 138 mmol/L Normal 136-145 [facility] Comment on above: Performed By: #### G LULS #### Point of Care testing , Urea nitrogen [Mass/Vol] 8 mg/dL Normal 7-25 [facility] Comment on above: Performed By: #### G LULS #### Point of Care testing , Benzodiazepines Screen Ql (U )Ordered By: Eron Wood on 03-12-2023 Benzodiazepines Ql (U) Negative Negative [facility] Benzoylecgonine [Presence] i n Urine by Screen methodOrdered By: Eron Wood on 03-12-2023 Benzoylecgonine Screen Ql (U) Negative Negative [facility] CT head/brain wo conon 03-12 CT head/brain wo con [facility] [place] [address] CT Scan Report Signed Patient: Christiane Perez MR#: [id number] 2 : 1975 Acct:[id number] Age/Sex: 48 / F ADM Date: 03/10/23 Loc: Room: [address] [place] [address] Type: ADM IN Attending Dr: Eron Wood [...] Vick Eden M.D.03/12/2023 4:47 PM Dictation Location: [place] [address] Transcribed By: [facility] 03/12/23 164 Dictated By: Vick Eden II, MD 03/12/235 Signed By: 03/12/[id number] Normal [facility] Calciumon 03-12-2023 Calcium [Mass/Vol] 8.4 mg/dL Low 8.6-10.3 [facility] Comment on above: Result Comment: PERF ORMED BY: [address] [place] [address] PATHOLOGIST RN STAFFING WAYNE WAKEFIELD M.D. Performed By: #### G LULS #### Point of Care testing , Cannabinoids [Presence] in U rine by Screen methodOrdered By: Eron Wood on 03-12-2023 Cannabinoids Screen Ql (U) Negative Negative [facility] Comment on above: These are unconfirme d results and should not be used for legal purposes. Drug Cut-Off Concentration: AMPH 1000 ng/mL HANNAH 200 ng/mL JENNIFER 200 ng/mL COCM 300 ng/mL OP 300 ng/mL PCP 25 ng/mL THC 20 ng/mL Complete Blood Count Auto Di ffon 03-12-2023 Basophils (Bld) [#/Vol] 0.1 10*3/uL Normal 0.0-0.2 [facility] Comment on above: Result Comment: PERF ORMED BY: [facility] [address] [facility] [place] [address] PATHOLOGIST RN STAFFING WAYNE WAKEFIELD M.D. Performed By: #### G LULS #### Point of Care testing , Basophils/100 WBC (Bld) 0.7 % Normal . [facility] Comment on above: Performed By: #### G LULS #### Point of Care testing , Eosinophils (Bld) [#/Vol] 0.3 10*3/uL Normal 0.0-0.45 [facility] Comment on above: Performed By: #### G LULS #### Point of Care testing , Eosinophils/100 WBC (Bld) 2.9 % Normal . [facility] Comment on above: Performed By: #### G LULS #### Point of Care testing , Erythrocyte distribution width (RBC) [Ratio] 15.8 % High 11.9-15.3 [facility] Comment on above: Performed By: #### G LULS #### Point of Care testing , Hematocrit (Bld) [Volume fraction] 35.6 % Normal 34.0-46.4 [facility] Comment on above: Performed By: #### G LULS #### Point of Care testing , Hemoglobin (Bld) [Mass/Vol] 11.8 g/dL Normal 11.8-15.4 [facility] Comment on above: Performed By: #### Sophia HERNANDEZLS #### Point of Care testing , Lymphocytes (Bld) [#/Vol] 1.3 10*3/uL Normal 1.00-4.8 [facility] Comment on above: Performed By: #### G MARYLS #### Point of Care testing , Lymphocytes/100 WBC (Bld) 13.5 % Normal . [facility] Comment on above: Performed By: #### G MARYLS #### Point of Care testing , MCH (RBC) [Entitic mass] 32.4 pg Normal 24.7-34.3 [facility] Comment on above: Performed By: #### G MARYLS #### Point of Care testing , MCV (RBC) [Entitic vol] 97.7 fL Normal 80-100 [facility] Comment on above: Performed By: #### Sophia HERNANDEZLS #### Point of Care testing , Mean Corpuscular HGB Conc 33.1 g/dL Normal 32.0-35.0 [facility] Comment on above: Performed By: #### Sophia GARVEY #### Point of Care testing , Monocytes (Bld) [#/Vol] 0.9 10*3/uL High 0.0-0.8 [facility] Comment on above: Performed By: #### G MARYLS #### Point of Care testing , Monocytes/100 WBC (Bld) 9.2 % Normal . [facility] Comment on above: Performed By: #### G MARYLS #### Point of Care testing , Neutrophils (Bld) [#/Vol] 7.2 10*3/uL Normal 1.8-7.7 [facility] Comment on above: Performed By: #### G MARYLS #### Point of Care testing , Neutrophils/100 WBC (Bld) 73.7 % Normal . [facility] Comment on above: Performed By: #### G MARYLS #### Point of Care testing , NRBC% 0.1 /100{WBC} Normal 0-0.5 [facility] Comment on above: Performed By: #### G LULS #### Point of Care testing , Platelet mean volume (Bld) [Entitic vol] 6.8 fL Normal 6.3-10.7 [facility] Comment on above: Performed By: #### G LULS #### Point of Care testing , Platelets (Bld) [#/Vol] 342 10*3/uL Normal 150-450 [facility] Comment on above: Performed By: #### G LULS #### Point of Care testing , RBC (Bld) [#/Vol] 3.64 10*6/uL Normal 3.60-5.00 [facility] Comment on above: Performed By: #### G LULS #### Point of Care testing , WBC (Bld) [#/Vol] 9.8 10*3/uL Normal 3.8-11.6 [facility] Comment on above: Performed By: #### G MARE #### Point of Care testing , Drug Screen,Urineon 03-12-20 23 Amphetamine Screen,Urine Negative Normal Negative [facility] Comment on above: Performed By: #### C BC, BMP, MG #### [facility] [address] [place] [address] Barbiturate Screen,Urine Negative Normal Negative [facility] Comment on above: Performed By: #### C BC, BMP, MG #### [facility] [address] [place] [address] [place] Benzodiazepines Screen,Urine Negative Normal Negative [facility] Comment on above: Performed By: #### C BC, BMP, MG #### [facility] [address] [place] [address] [place] Cannabinoid Screen,Urine Negative Normal Negative [facility] Comment on above: Result Comment: Thes e are unconfirmed results and should not be used for legal purposes. Drug Cut-Off Concentration: AMPH 1000 ng/mL HANNAH 200 ng/mL JENNIFER 200 ng/mL COCM 300 ng/mL OP 300 ng/mL PCP 25 ng/mL THC 20 ng/mL PERFORMED BY: [place] [address] PATHOLOGIST RN STAFFING WAYNE WAKEFIELD M.D. Performed By: #### C BC, BMP, MG #### [facility] [address] [place] [address] [place] Cocaine Screen,Urine Negative Normal Negative [facility] Comment on above: Performed By: #### C BC, BMP, MG #### [facility] [address] [place] [address] [place] Opiate Screen,Urine Positive High Negative [facility] Comment on above: Performed By: #### C BC, BMP, MG #### [facility] [address] Phencyclidine Screen,Urine Negative Normal Negative [facility] Comment on above: Performed By: #### C BC, BMP, MG #### [address] Glucose Poct Glucometerson 0 03-12-2023 Commemt1 Glu2: Cleaned Meter Normal [facility] Comment on above: Result Comment: PERF ORMED BY: [place] [address] PATHOLOGIST RN STAFFING WAYNE WAKEFIELD M.D. Performed By: #### C BC, BMP, MG #### [address] Glucose [Mass/Vol] 199 mg/dL Normal [facility] Comment on above: Result Comment: [facility] Glucose Reference Range is dependent on time and content of last meal. Glucose of more than 200 mg/dL in a nonstressed, ambulatory subject supports the diagnosis of Diabetes Mellitus. Performed By: #### C BC, BMP, MG #### [facility] [address] [place] [address] Glucose [Mass/Vol] 158 mg/dL Normal [facility] Comment on above: Result Comment: [facility] Glucose Reference Range is dependent on time and content of last meal. Glucose of more than 200 mg/dL in a nonstressed, ambulatory subject supports the diagnosis of Diabetes Mellitus. PERFORMED BY: [facility] [address] [facility] [address] PATHOLOGIST RN STAFFING WAYNE WAKEFIELD M.D. Performed By: #### G LULS #### Point of Care testing , Glucose [Mass/Vol] 152 mg/dL Normal [facility] Comment on above: Result Comment: [place] [facility] Glucose Reference Range is dependent on time and content of last meal. Glucose of more than 200 mg/dL in a nonstressed, ambulatory subject supports the diagnosis of Diabetes Mellitus. PERFORMED BY: [address] [place] [id number] PATHOLOGIST RN STAFFING WAYNE WAKEFIELD M.D. Performed By: #### G LULS #### Point of Care testing , Commemt1 Glu2: Cleaned Meter Normal [facility] Comment on above: Result Comment: PERF ORMED BY: [address] [place] [address] PATHOLOGIST RN STAFFING WAYNE WAKEFIELD M.D. Performed By: #### G LULS #### Point of Care testing , Glucose [Mass/Vol] 75 mg/dL Normal [facility] Comment on above: Result Comment: [place] Glucose Reference Range is dependent on time and content of last meal. Glucose of more than 200 mg/dL in a nonstressed, ambulatory subject supports the diagnosis of Diabetes Mellitus. Performed By: #### G LULS #### Point of Care testing , Opiates [Presence] in Urine by Screen methodOrdered By: Eron Wood on 03-12-2023 Opiates Screen Ql (U) Positive Negative [facility] Phencyclidine Screen Ql (U)O rdered By: Eron Wood on 03-12-2023 Phencyclidine Ql (U) Negative Negative [facility] Vancomycin [Mass/volume] in Serum or Plasma --peakOrdered By: Eron Wood on 03-12-2023 Vancomycin peak [Mass/Vol] 14.6 ug/mL 20.0-40.0 [facility] Comment on above: Last dose: - Vancomycin,Peakon 03-12-2023 Vancomycin,Peak 14.6 ug/mL Low 20.0-40.0 [facility] Comment on above: Order Comment: Comme nt ?DRAW 1 HOUR AFTER INFUSION COMPLETES Date of last dose?: [id number] Time of last dose?: 1500 Result Comment: Last dose: - PERFORMED BY: [place] [address] PATHOLOGIST RN STAFFING WAYNE WAKEFIELD M.D. Performed By: #### G LULS #### Point of Care testing , Vancomycin,Troughon 03-12-20 Vancomycin,Trough 17.8 ug/mL Normal 10.0-20.0 [facility] Comment on above: Result Comment: Last dose: - PERFORMED BY: [place] [address] PATHOLOGIST RN STAFFING WAYNE WAKEFIELD M.D. Performed By: #### V ANCT #### [address] XR chest 1V portableon 03-12 XR chest 1V portable [facility] Main [place] [address] [place] [address] XRay Report Signed Patient: Christiane Perez MR#: [id number] 2 : 1975 Acct:[id number] Age/Sex: 48 / F ADM Date: 03/10/23 Loc: Room: [address] [place] [address] Type: ADM IN Attending Dr: Eron Wood [...] II, MD 03/12/231616 Signed By: 03/12/23 161 [facility] XR chest 1V portable [facility] [place] [address] XRay Report Signed Patient: Christiane Perez MR#: [id number] 2 : 1975 Acct:[id number] Age/Sex: 48 / F ADM Date: 03/10/23 Loc: Room: [address] [place] [address] Type: ADM IN Attending Dr: Eron Wood [...] MD 03/12/23 135 Signed By: 03/12/23 135 [facility] AFB Specimen Processingon AFB Specimen Processing Concentration Negative Performed at: [address] [id number] Controller Mechanic: Juan Jennings PhD, Phone: [phone] Negative No acid fast bacilli isolated after 6 weeks. Performed at: [address] [id number] Controller Mechanic: Juan Jennings PhD, Phone: [phone] PERFORMED BY: [place] [address] PATHOLOGIST RN STAFFING WAYNE WAKEFIELD M.D. [facility] Comment on above: Performed By: #### G LULS #### Point of Care testing , Aerobic Cultureon 03-11-2023 Aerobic Culture ORGANISM: Janine tropicalis (O:CANTRO) Quantity of Growth Light Growth ORGANISM: Janine albicans (O:CANALB) Quantity of Growth Light Growth Gram Stain Result 1+ White Blood Cells Rare Epithelial Cells Rare Gram Positive Bacilli Rare Gram Positive Cocci 1+ Yeast Like Elements PERFORMED BY: [place] [address] PATHOLOGIST RN STAFFING WAYNE WAKEFIELD M.D. [facility] Comment on above: Performed By: #### A ERC #### [facility] [address] [place] [address] [place] Bacteria identified Aer cx N om (Bronch spec)Ordered By: Errol Nicole on 03-11-2023 Bronchial Culture Janine tropicalis [facility] Bronchial Culture Janine albicans F [facility] Basic Metabolic Panelon 02-14 Anion gap [Moles/Vol] 8.9 mmol/L Normal 6.0-15.0 [facility] Comment on above: Performed By: #### C BC, BMP, MG #### [facility] [address] [place] [address] [place] Calcium [Mass/Vol] 8.4 mg/dL Low 8.6-10.3 [facility] Comment on above: Performed By: #### C BC, BMP, MG #### [facility] [address] [place] [address] [place] Chloride [Moles/Vol] 107 mmol/L Normal 98-107 [facility] Comment on above: Performed By: #### C BC, BMP, MG #### [facility] [address] [place], [place] [id number] [place] CO2 [Moles/Vol] 25.0 mmol/L Normal 21.0-31.0 [facility] Comment on above: Performed By: #### C BC, BMP, MG #### [facility] [address] [place] [address] [place] Creatinine [Mass/Vol] 0.72 mg/dL Normal 0.60-1.20 [facility] Comment on above: Performed By: #### C BC, BMP, MG #### [facility] [address] [place] [address] [place] Creatinine Clr Calc Pharmacy 112.35 [facility] Comment on above: Performed By: #### C BC, BMP, MG #### [facility] [address] [place] [address] [place] GFR/1.73 sq M.predicted MDRD (S/P/Bld) [Vol rate/Area] mL/min/{1.73_m2} [facility] Comment on above: Performed By: #### C BC, BMP, MG #### [facility] [address] Glucose [Mass/Vol] 120 mg/dL High 70-100 [facility] Comment on above: Result Comment: [facility] Glucose Reference Range is dependent on time and content of last meal. Glucose of more than 200 mg/dL in a nonstressed, ambulatory subject supports the diagnosis of Diabetes Mellitus. ADA recommended reference range Performed By: #### C BC, BMP, MG #### [facility] [address] [place] [address] [place] Potassium [Moles/Vol] 3.9 mmol/L Normal 3.5-5.1 [facility] Comment on above: Performed By: #### C BC, BMP, MG #### [facility] [address] [place] [address] [place] Sodium [Moles/Vol] 137 mmol/L Normal 136-145 [facility] Comment on above: Performed By: #### C BC, BMP, MG #### [facility] [address] [place] [address] [place] Urea nitrogen [Mass/Vol] 10 mg/dL Normal 7-25 [facility] Comment on above: Performed By: #### C BC, BMP, MG #### [address] Bronch Cultureon 03-11-2023 Bronch Culture ORGANISM: Janine tropicalis (O:CANTRO) Quantity of Growth Light Growth ORGANISM: Janine albicans (O:CANALB) Quantity of Growth Light Growth PERFORMED BY: [place] [address] PATHOLOGIST RN STAFFING WAYNE WAKEFIELD M.D. Normal [facility] Comment on above: Performed By: #### G LULS #### Point of Care testing , Complete Blood Count Auto Di ffon 03-11-2023 Basophils (Bld) [#/Vol] 0.0 10*3/uL Normal 0.0-0.2 [facility] Comment on above: Result Comment: PERF ORMED BY: [place] [address] PATHOLOGIST RN STAFFING WAYNE WAKEFIELD M.D. Performed By: #### C BC, BMP, MG #### [address] Basophils/100 WBC (Bld) 0.3 % Normal . [facility] Comment on above: Performed By: #### C BC, BMP, MG #### [address] Eosinophils (Bld) [#/Vol] 0.2 10*3/uL Normal 0.0-0.45 [facility] Comment on above: Performed By: #### C BC, BMP, MG #### [address] Eosinophils/100 WBC (Bld) 2.1 % Normal . [facility] Comment on above: Performed By: #### C BC, BMP, MG #### [address] Erythrocyte distribution width (RBC) [Ratio] 15.9 % High 11.9-15.3 [facility] Comment on above: Performed By: #### C BC, BMP, MG #### [address] Hematocrit (Bld) [Volume fraction] 36.2 % Normal 34.0-46.4 [facility] Comment on above: Performed By: #### C DANIELE BMP, MG #### [address] Hemoglobin (Bld) [Mass/Vol] 11.9 g/dL Normal 11.8-15.4 [facility] Comment on above: Performed By: #### C DANIELE BMP, MG #### [address] Lymphocytes (Bld) [#/Vol] 1.1 10*3/uL Normal 1.00-4.8 [facility] Comment on above: Performed By: #### C DANIELE BMP, MG #### [address] Lymphocytes/100 WBC (Bld) 9.5 % Normal . [facility] Comment on above: Performed By: #### C DANIELE BMP, MG #### [address] MCH (RBC) [Entitic mass] 31.9 pg Normal 24.7-34.3 [facility] Comment on above: Performed By: #### C DANIELE BMP, MG #### [address] MCV (RBC) [Entitic vol] 97.5 fL Normal 80-100 [facility] Comment on above: Performed By: #### C BC BMP, MG #### [address] Mean Corpuscular HGB Conc 32.8 g/dL Normal 32.0-35.0 [facility] Comment on above: Performed By: #### C BC BMP, MG #### [address] Monocytes (Bld) [#/Vol] 1.0 10*3/uL High 0.0-0.8 [facility] Comment on above: Performed By: #### C BC BMP, MG #### [facility] [address] [place] [address] [place] Monocytes/100 WBC (Bld) 8.9 % Normal . [facility] Comment on above: Performed By: #### C BC, BMP, MG #### [facility] [address] [place] [address] [place] Neutrophils (Bld) [#/Vol] 9.3 10*3/uL High 1.8-7.7 [facility] Comment on above: Performed By: #### C BC, BMP, MG #### [facility] [address] Neutrophils/100 WBC (Bld) 79.2 % Normal . [facility] Comment on above: Performed By: #### C BC, BMP, MG #### [facility] [address] NRBC% 0.0 /100{WBC} Normal 0-0.5 [facility] Comment on above: Performed By: #### C BC, BMP, MG #### [facility] [address] Platelet mean volume (Bld) [Entitic vol] 7.1 fL Normal 6.3-10.7 [facility] Comment on above: Performed By: #### C BC, BMP, MG #### [facility] [address] [place] [address] [place] Platelets (Bld) [#/Vol] 360 10*3/uL Normal 150-450 [facility] Comment on above: Performed By: #### C BC, BMP, MG #### [facility] [address] [place] [address] [place] RBC (Bld) [#/Vol] 3.72 10*6/uL Normal 3.60-5.00 [facility] Comment on above: Performed By: #### C BC, BMP, MG #### [facility] [address] [place] [address] [place] WBC (Bld) [#/Vol] 11.7 10*3/uL High 3.8-11.6 [facility] Comment on above: Performed By: #### C BC, BMP, MG #### [address] Fungal cultureOrdered By: Corrina Nicole on 03-11-2023 Fungus identified Cx Nom (Unsp spec) [facility] Fungus # 2 identified in Uns pecified specimen by CultureOrdered By: Errol Nicole on 03-11-2023 Fungus identified # 2 Cx Nom (Unsp spec) [facility] Fungus # 3 identified in Uns pecified specimen by CultureOrdered By: Errol Nicole on 03-11-2023 Fungus identified # 3 Cx Nom (Unsp spec) [facility] Fungus (Mycology) Cultureon 03-11-2023 Fungus (Mycology) Culture Preliminary report Final report Janine glabrata Janine tropicalis Performed at: [place] [address] Controller Mechanic: Juan Jennings PhD, Phone: [phone] Janine albicans Performed at: [place] [address] Controller Mechanic: Juan Jennings PhD, Phone: [phone] PERFORMED BY: [place] [address] PATHOLOGIST RN STAFFING WAYNE WAKEFIELD M.D. [facility] Comment on above: Performed By: #### G LULS #### Point of Care testing , Fungus (Mycology) Result 2on 03-11-2023 Fungus (Mycology) Result 2 Janine tropicalis Performed at: [place] [address] Controller Mechanic: Juan Jennings PhD, Phone: [phone] Janine albicans Performed at: [place] [address] Controller Mechanic: Juan Jennings PhD, Phone: [phone] PERFORMED BY: [facility] [address] [place] [address] PATHOLOGIST RN STAFFING WAYNE WAKEFIELD M.D. [facility] Comment on above: Performed By: #### G LULS #### Point of Care testing , Glucose Poct Glucometerson 0 03-11-2023 Commemt1 Glu2: Cleaned Meter [facility] Comment on above: Result Comment: PERF ORMED BY: [address] [place] [address] PATHOLOGIST RN STAFFING WAYNE WAKEFIELD M.D. Performed By: #### G LULS #### Point of Care testing , Glucose [Mass/Vol] 121 mg/dL Normal [facility] Comment on above: Result Comment: [place] [facility] Glucose Reference Range is dependent on time and content of last meal. Glucose of more than 200 mg/dL in a nonstressed, ambulatory subject supports the diagnosis of Diabetes Mellitus. Performed By: #### G LULS #### Point of Care testing , Commemt1 Glu2: Cleaned Meter [facility] Comment on above: Result Comment: PERF ORMED BY: [address] [place] [address] PATHOLOGIST RN STAFFING WAYNE WAKEFIELD M.D. Performed By: #### G LULS #### Point of Care testing , Glucose [Mass/Vol] 80 mg/dL Normal [facility] Comment on above: Result Comment: [place] Glucose Reference Range is dependent on time and content of last meal. Glucose of more than 200 mg/dL in a nonstressed, ambulatory subject supports the diagnosis of Diabetes Mellitus. Performed By: #### G LULS #### Point of Care testing , Glucose [Mass/Vol] 134 mg/dL [facility] Comment on above: Result Comment: [place] Glucose Reference Range is dependent on time and content of last meal. Glucose of more than 200 mg/dL in a nonstressed, ambulatory subject supports the diagnosis of Diabetes Mellitus. PERFORMED BY: [address] [place] [address] PATHOLOGIST RN STAFFING WAYNE WAKEFIELD M.D. Performed By: #### G LULS #### Point of Care testing , Commemt1 [facility] Comment on above: Result Comment: Glu2 : WILL NOTIFY DR/RN PERFORMED BY: [address] [place] [address] PATHOLOGIST RN STAFFING WAYNE WAKEFIELD M.D. Performed By: #### G LULS #### Point of Care testing , Glucose [Mass/Vol] 58 mg/dL Off scale low [facility] Comment on above: Result Comment: [place] [facility] Glucose Reference Range is dependent on time and content of last meal. Glucose of more than 200 mg/dL in a nonstressed, ambulatory subject supports the diagnosis of Diabetes Mellitus. Performed By: #### G LULS #### Point of Care testing , Commemt1 Glu2: Cleaned Meter Normal [facility] Comment on above: Result Comment: PERF ORMED BY: [address] [place] [address] PATHOLOGIST RN STAFFING WAYNE WAKEFIELD M.D. Performed By: #### G LULS #### Point of Care testing , Glucose [Mass/Vol] 249 mg/dL Normal [facility] Comment on above: Result Comment: [place] [facility] Glucose Reference Range is dependent on time and content of last meal. Glucose of more than 200 mg/dL in a nonstressed, ambulatory subject supports the diagnosis of Diabetes Mellitus. Performed By: #### G LULS #### Point of Care testing , Glucose [Mass/Vol] 138 mg/dL Normal [facility] Comment on above: Result Comment: [place] [facility] Glucose Reference Range is dependent on time and content of last meal. Glucose of more than 200 mg/dL in a nonstressed, ambulatory subject supports the diagnosis of Diabetes Mellitus. PERFORMED BY: [address] [place] [address] PATHOLOGIST RN STAFFING WAYNE WAKEFIELD M.D. Performed By: #### G LULS #### Point of Care testing , Gram Stainon 03-11-2023 Microscopic observation Gram stain Nom (Unsp spec) Gram Stain Result 1+ White Blood Cells 1+ Yeast Like Elements No Bacteria Seen Fungus Smear Results 1+ Yeast Like Elements Seen PERFORMED BY: [address] [place] [id number] PATHOLOGIST RN STAFFING WAYNE WAKEFIELD M.D. [facility] Comment on above: Performed By: #### G MARE #### Point of Care testing , [place] 03-11-2023 L ----- Specimen: [id number] Received: 03/12/23 Status: DAY St Num: [id number] Spec Type: Cytology Subm Dr: Errol Nicole MD Tissues: A BRONWASH ([facility]) Procedures: HE/2, Gross/Micro L4, Cyto Prepstain, PAPSTN Age/ Patient Sex Location Account Attending Physician Christiane Perez 48/F [id number] Krunal Kelly DO SPEC NUM: [id number] RECD: 03/12/23 STATUS: DAY ST NUM: [id number] HARRY: 03/11/[address]: Errol Nicole MD ENTERED: 03/12/23 [facility] DR: SPEC TYPE: Cytology DEPT: CNG ENTERED BY: [id number] RECV BY: [id number] ORDERED: HE/2, Gross/Micro L4, Cyto Prepstain, PAPSTN ORDERED: HE/2, Gross/Micro L4, Cyto Prepstain, PAPSTN Pathological Diagnosis Bronchial wash, cytology: - Negative for malignancy, inflammatory process - See note and pathology report [id number] Note: Smear and cell block shows many [...] [id number] Received: 03/12/23 Status: DAY Martioscar Num: [id number] Spec Type: Cytology Subm Dr: Errol Nicole MD Tissues: A BRONWASH ([facility]) Procedures: HE/2, Gross/Micro L4, Cyto Prepstain, PAPSTN Patient: Christiane Perez Neto [id number] (Continued) Signed (signature on file) Gregory Aranda MD 03/17/23820 [facility] L ----- Specimen: [id number] Received: 03/11/23 Status: DAY St Num: [id number] Spec Type: Surgical Subm Dr: Errol Nicole MD Tissues: A Lung - Transbroncial Biopsy ([facility] BX) Procedures: ISIDRA SONG, HE/5, Gross/Micro L4, GMS II ARMANI Oquendo Age/ Patient Sex Location Account Attending Physician Christiane Perez 48/F 3T [id number] Krunal Kelly DO SPEC NUM: [id number] RECD: 03/11/23 STATUS: DAY REOscar NUM: [id number] HARRY: 03/11/23- SUBM DR: Errol Nicole MD [...] negative. This case will send to the [facility] for consultation and second opinion and the result will be reported as an addendum. Specimen: [id number] Received: 03/11/23 Status: DAY St Num: [id number] Spec Type: Surgical Subm Dr: Errol Nicole MD Tissues: A Lung - Transbroncial Biopsy ([facility]) Procedures: PAS - LGRN, HE/5, Gross/Micro L4, GMS II Dark, AFB Patient: PerezChristiane [id number] (Continued) Specimen: [id number] Received: 03/11/23 (Continued) Signed (signature on file) Gregory Aranda MD 03/17/23811 Specimen: [id number] Received: 03/11/23 Status: DAY St Num: [id number] Spec Type: Surgical Subm Dr: Errol Nicole MD Tissues: A Lung - Transbroncial Biopsy ([facility]) Procedures: ISIDRA - NOHEMI, HE/5, Gross/Micro L4, GMS II Dark, AFB Patient: Christiane Perez [id number] (Continued) Specimen: [id number] Received: 03/11/23 (Continued) Clinical Information Abscess Gross Description Received in formalin labeled with the patient's name, date of and [facility] biopsies are multiple villegas tissues measuring 1.5 x 0.3 x 0.2 cm in aggregate. Entirely submitted in one cassette labeled A1. Microscopic Description Two H E slides reviewed. The microscopic examination confirms the diagnosis. CPT Codes 92291 Specimen: [id number] Received: 03/11/23 Status: DAY Martioscar Num: [id number] Spec Type: Surgical Subm Dr: Errol Nicole MD Tissues: A Lung - Transbroncial Biopsy ([facility]) Procedures: ISIDRA SONG, HE/5, Gross/Micro L4, GMS II ARMANI Oquendo Patient: Christiane Perez [id number] (Continued) Signed (signature on file) Gregory Aranda MD 03/17/23811 Normal [facility] Magnesiumon 03-11-2023 Magnesium [Mass/Vol] 1.9 mg/dL Normal 1.9-2.7 [facility] Comment on above: Result Comment: PERF ORMED BY: [place] [address] PATHOLOGIST RN STAFFING WAYNE WAKEFIELD M.D. Performed By: #### C BC, BMP, MG #### [facility] [address] [place], [place] [id number] [facility] Magnesium [Mass/volume] in S kaitlin or PlasmaOrdered By: Eron Wood on 03-11-2023 Magnesium [Mass/Vol] 1.9 mg/dL 1.9-2.7 [facility] Vancomycin,Peakon 03-11-2023 Vancomycin,Peak 12.5 ug/mL Low 20.0-40.0 [facility] Comment on above: Order Comment: Comme nt ?DRAW 1 HOUR AFTER INFUSION COMPLETES Date of last dose?: [id number] Time of last dose?: 1500 Result Comment: Last dose: - PERFORMED BY: [place] [address] PATHOLOGIST RN STAFFING WAYNE WAKEFIELD M.D. Performed By: #### G MARE #### Point of Care testing , Activated partial thrombopla stin time (aPTT) in platelet poor plasma by coagulation aOrdered By: Lavell Salazar on 03-10-2023 aPTT Coag (PPP) [Time] 40.2 s 25.1-36.5 [facility] B-Type Natriuretic Peptideon 03-10-2023 Natriuretic peptide B (Bld) [Mass/Vol] 46.0 pg/mL Normal 5-100 [facility] Comment on above: Result Comment: PERF ORMED BY: [place] [address] PATHOLOGIST RN STAFFING WAYNE WAKEFIELD M.D. Performed By: #### C BC, BMP, MG #### [facility] [address] [place] [id number] [facility] Bacterial blood cultureOrder ed By: Lavell Salazar on 03-10-2023 Bacteria identified Cx Nom (Bld) NO GROWTH 5 DAYS [facility] Basic Metabolic Panelon 02-14 Anion gap [Moles/Vol] 11.3 mmol/L Normal 6.0-15.0 [facility] Comment on above: Performed By: #### C BC, BMP, MG #### [facility] [address] Calcium [Mass/Vol] 8.9 mg/dL Normal 8.6-10.3 [facility] Comment on above: Performed By: #### C BC, BMP, MG #### [facility] [address] [place] [address] [place] Chloride [Moles/Vol] 103 mmol/L Normal 98-107 [facility] Comment on above: Performed By: #### C BC, BMP, MG #### [facility] [address] CO2 [Moles/Vol] 24.2 mmol/L Normal 21.0-31.0 [facility] Comment on above: Performed By: #### C BC, BMP, MG #### [facility] [address] [place] [address] [place] Creatinine [Mass/Vol] 0.70 mg/dL Normal 0.60-1.20 [facility] Comment on above: Performed By: #### C BC, BMP, MG #### [facility] [address] [place] [address] [place] Creatinine Clr Calc Pharmacy 117.33 [facility] Comment on above: Result Comment: PERF ORMED BY: [place] [address] PATHOLOGIST RN STAFFING WAYNE WAKEFIELD M.D. Performed By: #### C BC, BMP, MG #### [facility] [address] [place] [address] [place] GFR/1.73 sq M.predicted MDRD (S/P/Bld) [Vol rate/Area] mL/min/{1.73_m2} [facility] Comment on above: Performed By: #### C BC, BMP, MG #### [facility] [address] Glucose [Mass/Vol] 69 mg/dL Low 70-100 [facility] Comment on above: Result Comment: [place] Glucose Reference Range is dependent on time and content of last meal. Glucose of more than 200 mg/dL in a nonstressed, ambulatory subject supports the diagnosis of Diabetes Mellitus. ADA recommended reference range Performed By: #### C BC, BMP, MG #### [facility] [address] Potassium [Moles/Vol] 3.5 mmol/L Normal 3.5-5.1 [facility] Comment on above: Performed By: #### C BC, BMP, MG #### [address] Sodium [Moles/Vol] 135 mmol/L Low 136-145 [facility] Comment on above: Performed By: #### C BC, BMP, MG #### [address] Urea nitrogen [Mass/Vol] 10 mg/dL Normal 7-25 [facility] Comment on above: Performed By: #### C BC BMP, MG #### [place] [address] [place] Bilirubin.direct [Mass/volum e] in Serum or PlasmaOrdered By: Lavell Salazar on 03-10-2023 Bilirubin.direct [Mass/Vol] 0.20 mg/dL 0.03-0.18 [facility] Blood Cultureon 03-10-2023 Bacteria identified Cx Nom (Bld) NO GROWTH 5 DAYS PERFORMED BY: [place] [address] PATHOLOGIST RN STAFFING WAYNE WAKEFIELD M.D. [facility] Comment on above: Performed By: #### C BC, BMP, MG #### [address] Bacteria identified Cx Nom (Bld) NO GROWTH 5 DAYS PERFORMED BY: [address] [place] [address] PATHOLOGIST RN STAFFING WAYNE WAKEFIELD M.D. [facility] Comment on above: Performed By: #### C DANIELE, JOE, #### [place] [id number] [facility] CT chest w conon 03-10-2023 CT chest w con [facility] [place] [address] [place] [address] CT Scan Report Signed Patient: Christiane Perez MR#: [id number] 2 : 1975 Acct:[id number] Age/Sex: 48 / F ADM Date: 03/10/23 Loc: ER Room: [facility] ER Attending Dr: Copies to: Lavell Salazar [...] Giovanny Cleveland M.D.03/10/2023 2:30 PM Dictation Location: [place] [address] Transcribed By: [facility] 03/10/23 1430 Dictated By: Giovanny Cleveland DO 03/10/23 1421 Signed By: 03/10/23 1430 Normal [facility] Complete Blood Count Auto Di ffon 03-10-2023 Basophils (Bld) [#/Vol] 0.0 10*3/uL Normal 0.0-0.2 [facility] Comment on above: Result Comment: PERF ORMED BY: [facility] [address] [place] [address] PATHOLOGIST RN STAFFING WAYNE WAKEFIELD M.D. Performed By: #### G LULS #### Point of Care testing , Basophils/100 WBC (Bld) 0.2 % Normal . [facility] Comment on above: Performed By: #### G LULS #### Point of Care testing , Eosinophils (Bld) [#/Vol] 0.2 10*3/uL Normal 0.0-0.45 [facility] Comment on above: Performed By: #### G LULS #### Point of Care testing , Eosinophils/100 WBC (Bld) 1.1 % Normal . [facility] Comment on above: Performed By: #### G LULS #### Point of Care testing , Erythrocyte distribution width (RBC) [Ratio] 15.4 % High 11.9-15.3 [facility] Comment on above: Performed By: #### G LULS #### Point of Care testing , Hematocrit (Bld) [Volume fraction] 38.1 % Normal 34.0-46.4 [facility] Comment on above: Performed By: #### G LULS #### Point of Care testing , Hemoglobin (Bld) [Mass/Vol] 12.8 g/dL Normal 11.8-15.4 [facility] Comment on above: Performed By: #### G LULS #### Point of Care testing , Lymphocytes (Bld) [#/Vol] 1.0 10*3/uL Normal 1.00-4.8 [facility] Comment on above: Performed By: #### G MARYLS #### Point of Care testing , Lymphocytes/100 WBC (Bld) 5.7 % Normal . [facility] Comment on above: Performed By: #### G MARYLS #### Point of Care testing , MCH (RBC) [Entitic mass] 32.6 pg Normal 24.7-34.3 [facility] Comment on above: Performed By: #### G MARYLS #### Point of Care testing , MCV (RBC) [Entitic vol] 97.2 fL Normal 80-100 [facility] Comment on above: Performed By: #### G MARYLS #### Point of Care testing , Mean Corpuscular HGB Conc 33.5 g/dL Normal 32.0-35.0 [facility] Comment on above: Performed By: #### G MARYLS #### Point of Care testing , Monocytes (Bld) [#/Vol] 1.2 10*3/uL High 0.0-0.8 [facility] Comment on above: Performed By: #### Sophia HERNANDEZLS #### Point of Care testing , Monocytes/100 WBC (Bld) 24.68 % High 0.00-20.00 [facility] Comment on above: Result Comment: For adults in ED, MDW > 20.0 may be associated with a higher risk of sepsis during the first 12 hrs of hospital admission Performed By: #### G MARYLS #### Point of Care testing , Monocytes/100 WBC (Bld) 7.2 % Normal . [facility] Comment on above: Performed By: #### G MARYLS #### Point of Care testing , Neutrophils (Bld) [#/Vol] 14.2 10*3/uL High 1.8-7.7 [facility] Comment on above: Performed By: #### G MARYLS #### Point of Care testing , Neutrophils/100 WBC (Bld) 85.8 % Normal . [facility] Comment on above: Performed By: #### G LULS #### Point of Care testing , NRBC% 0.1 /100{WBC} Normal 0-0.5 [facility] Comment on above: Performed By: #### G MARYLS #### Point of Care testing , Platelet mean volume (Bld) [Entitic vol] 7.2 fL Normal 6.3-10.7 [facility] Comment on above: Performed By: #### G MARYLS #### Point of Care testing , Platelets (Bld) [#/Vol] 410 10*3/uL Normal 150-450 [facility] Comment on above: Performed By: #### G MARE #### Point of Care testing , RBC (Bld) [#/Vol] 3.92 10*6/uL Normal 3.60-5.00 [facility] Comment on above: Performed By: #### G MARYLS #### Point of Care testing , WBC (Bld) [#/Vol] 16.6 10*3/uL High 3.8-11.6 [facility] Comment on above: Performed By: #### G MARE #### Point of Care testing , Creatine Kinaseon 03-10-2023 CK [Catalytic activity/Vol] 23 U/L Low 30-223 [facility] Comment on above: Performed By: #### C BC, BMP, MG #### [address] Creatine kinase [Enzymatic a ctivity/volume] in Serum or PlasmaOrdered By: Lavell Salazar on 03-10-2023 CK [Catalytic activity/Vol] 23 U/L 30-223 [facility] ECG 12 lead ECGon 03-10-2023 ECG 12 lead ECG [facility] [place] [address] Electrocardiograph Report Signed Patient: Christiane Perez MR#: [id number] 2 : 1975 Acct:[id number] Age/Sex: 48 / F ADM Date: 03/10/23 Loc: ER Room: [facility] ER Attending Dr: Ordering Provider: Lavell Salazar, [...] has shortened Confirmed by Lavell Salazar DO ([id number]) on 03/10/2023 3:09:19 PM Referred By: Electronically Signed By:Lavell Salazar DO Transcribed By: MUS Signed By Lavell Salazar DO 3 1509 Normal [facility] Glucose Poct Glucometerson 0 03-10-2023 Glucose [Mass/Vol] 129 mg/dL Normal [facility] Comment on above: Result Comment: [facility] Glucose Reference Range is dependent on time and content of last meal. Glucose of more than 200 mg/dL in a nonstressed, ambulatory subject supports the diagnosis of Diabetes Mellitus. PERFORMED BY: [address] [place] [address] PATHOLOGIST RN STAFFING WAYNE WAKEFIELD M.D. Performed By: #### G LULS #### Point of Care testing , Commemt1 Glu2: Cleaned Meter Normal [facility] Comment on above: Result Comment: PERF ORMED BY: [facility] [address] [place] [address] PATHOLOGIST RN STAFFING WAYNE WAKEFIELD M.D. Performed By: #### G LULS #### Point of Care testing , Glucose [Mass/Vol] 176 mg/dL Normal [facility] Comment on above: Result Comment: [facility] Glucose Reference Range is dependent on time and content of last meal. Glucose of more than 200 mg/dL in a nonstressed, ambulatory subject supports the diagnosis of Diabetes Mellitus. Performed By: #### G LULS #### Point of Care testing , Hepatic Panelon 03-10-2023 Albumin [Mass/Vol] 3.3 g/dL Low 3.5-5.7 [facility] Comment on above: Performed By: #### C BC, BMP, MG #### [facility] [address] [place] [address] Albumin/Globulin [Mass ratio] 0.9 {ratio} [facility] Comment on above: Performed By: #### C BC, BMP, MG #### [facility] [address] [place] [address] ALP [Catalytic activity/Vol] 110 U/L High 34-104 [facility] Comment on above: Performed By: #### C BC, BMP, MG #### [facility] [address] [place] [address] ALT [Catalytic activity/Vol] 6 U/L Low 7-52 [facility] Comment on above: Performed By: #### C BC, BMP, MG #### [facility] [address] [place] [address] AST [Catalytic activity/Vol] 10 U/L Low 13-39 [facility] Comment on above: Performed By: #### C BC, BMP, MG #### [facility] [address] [place] [address] Bilirubin [Mass/Vol] 0.7 mg/dL Normal 0.3-1.0 [facility] Comment on above: Performed By: #### C BC, BMP, MG #### [facility] [address] [place] [address] Bilirubin,Indirect 0.5 mg/dL Normal [facility] Comment on above: Performed By: #### C BC, BMP, MG #### [facility] [address] [place] [address] Bilirubin.indirect [Mass/Vol] 0.20 mg/dL High 0.03-0.18 [facility] Comment on above: Performed By: #### C BC, BMP, MG #### [facility] [address] [place] [address] Globulin (S) [Mass/Vol] 3.6 g/dL Normal [facility] Comment on above: Performed By: #### C BC, BMP, MG #### [facility] [address] [place] [address] [place] Protein [Mass/Vol] 6.9 g/dL Normal 6.4-8.9 [facility] Comment on above: Performed By: #### C BC, BMP, MG #### [facility] [address] Laboratory - CoagulationOrde red By: Lavell Salazar on 03-10-2023 PT Coag (PPP) [Time] 14.3 s 9.0-12.9 [facility] Lactate [Moles/volume] in Se rum or PlasmaOrdered By: Lavell Salazar on 03-10-2023 Lactate [Moles/Vol] 1.2 mmol/L 0.5-2.2 [facility] Lactic Acidon 03-10-2023 Lactate [Moles/Vol] 1.2 mmol/L Normal 0.5-2.2 [facility] Comment on above: Result Comment: PERF ORMED BY: [facility] [address] [place] [address] PATHOLOGIST RN STAFFING WAYNE WAKEFIELD M.D. Performed By: #### G MARE #### Point of Care testing , Monocyte distribution width [Entitic volume] in Blood by AutomatedOrdered By: Lavell Salazar on 03-10-2023 Monocyte distribution width Auto (Bld) [Entitic vol] 24.68 % 0.00-20.00 [facility] Comment on above: For adults in ED, MD W > 20.0 may be associated with a higher risk of sepsis during the first 12 hrs of hospital admission Natriuretic peptide B [Mass/ Vol]Ordered By: Lavell Salazar on 03-10-2023 Natriuretic peptide B (Bld) [Mass/Vol] 46.0 pg/mL 5-100 [facility] Partial Thromboplastin Timeo n 03-10-2023 aPTT Coag (Bld) [Time] 40.2 s High 25.1-36.5 [facility] Comment on above: Result Comment: PERF ORMED BY: [facility] [address] [place] [address] PATHOLOGIST RN STAFFING WAYNE WAKEFIELD M.D. Performed By: #### G MARE #### Point of Care testing , Platelet poor plasma interna tional normalized ratio (INR) by coagulation assay (relatOrdered By: Lavell Salazar on 03-10-2023 INR Coag (PPP) [Relative time] 1.2 {INR} [facility] Comment on above: INR Therapeutic Rang e [...] Coag (PPP) [Relative time] 1.2 {INR} Normal [facility] Comment on above: Result Comment: INR Therapeutic [...] Coag (PPP) [Time] 14.3 s High 9.0-12.9 [facility] Comment on above: Performed By: #### G MARE #### Point of Care testing , Serum or plasma non-glucuron idated bilirubin measurement (mass/volume)Ordered By: Lavell Salazar on 03-10-2023 Bilirubin.indirect [Mass/Vol] 0.5 mg/dL [facility] Troponin I High Sensitivityo n 03-10-2023 Troponin I High Sensitivity 12.8 pg/mL Normal 0.0-15.0 [facility] Comment on above: Result Comment: PERF ORMED BY: [facility] [address] [place] [address] PATHOLOGIST RN STAFFING WAYNE WAKEFIELD M.D. Performed By: #### C BC, BMP, MG #### [address] Troponin I.cardiac [Mass/vol ume] in Serum or Plasma by Detection limit <= 0.01 ng/Ordered By: Lavell Salazar on 03-10-2023 Troponin I.cardiac DL <= 0.01 ng/mL [Mass/Vol] 12.8 pg/mL 0.0-15.0 [facility] XR chest 1V portableon 03-10 XR chest 1V portable [facility] [place] [address] [place] [address] XRay Report Signed Patient: Christiane Perez MR#: [id number] 2 : 1975 Acct:[id number] Age/Sex: 48 / F ADM Date: 03/10/23 [...] Johnson Jr., D.OJosue03/10/2023 1:11 PM Dictation Location: [place] [address] Transcribed By: [facility] 03/10/231310 Dictated By: Rodger Johnson Jr, DO 03/10/231309 Signed By: 03/10/23 131 Normal [facility] Insurance Correspondence Off ice02-19-2023 Insurance Correspondence Office [id number]#1.00CD:12 7 Normal [facility] Quick Strepon 02-14-2023 S. pyogenes Org specific cx Ql (Throat) Negative [employer] [facility] [employer] Other Quick Strep [facility] [employer] Other Insurance Correspondence Off iceon 01-20-2023 Insurance Correspondence Office [id number]#1.00CD:1 27 Normal [facility] CBC AUTO DIFFon 12-01-2022 BASO # 0.0 103/ul Normal 0.0-0.1 [facility] Comment on above: Performed By: #### I NFLUAB #### [facility] [address] [place] [address] Dr. Roscoe Segal Basophils/100 WBC (Bld) 0.6 % Normal 0.2-2.0 [facility] Comment on above: Performed By: #### I NFLUAB #### [facility] [address] [place] [address] Dr. Roscoe Segal EO # 0.2 103/ul Normal 0.0-0.7 [facility] Comment on above: Performed By: #### I NFLUAB #### [facility] [address] [place] [address] Dr. Roscoe Segal Eosinophils/100 WBC (Bld) 2.4 % Normal 0.9-7.0 [facility] Comment on above: Performed By: #### I NFLUAB #### [facility] [address] [place] [address] Dr. Roscoe Segal Erythrocyte distribution width (RBC) [Ratio] 14.9 % Normal 11.0-15.0 [facility] Comment on above: Performed By: #### I NFLUAB #### [facility] [address] [place] [address] Dr. Roscoe Segal Hematocrit (Bld) [Volume fraction] 44.7 % Normal 36.0-48.0 [facility] Comment on above: Performed By: #### I NFLUAB #### [facility] [address] [place], [place] [id number] Dr. Roscoe Segal Hemoglobin (Bld) [Mass/Vol] 14.9 g/dL Normal 12.0-16.0 [facility] Comment on above: Performed By: #### I NFLUAB #### [facility] [address] [place] [address] Dr. Roscoe Segal IG # 0.02 10e3/ul Normal 0.00-0.03 [facility] Comment on above: Performed By: #### I NFLUAB #### [facility] [address] [place] [address] Dr. Roscoe Segal IG % 0.3 % Normal 0.0-0.5 [facility] Comment on above: Performed By: #### I NFLUAB #### [facility] [address] [place] [address] Dr. Roscoe Segal LYMPH # 1.6 103/ul Normal 1.2-3.8 [facility] Comment on above: Performed By: #### I NFLUAB #### [facility] [address] [place] [address] Dr. Roscoe Segal Lymphocytes/100 WBC (Bld) 26.1 % Normal 20.5-60.0 [facility] Comment on above: Performed By: #### I NFLUAB #### [facility] [address] [place] [address] Dr. Roscoe Segal MANUAL DIFF REQ NO Normal [facility] Comment on above: Performed By: #### I NFLUAB #### [facility] [address] [place] [address] Dr. Roscoe Segal MCH (RBC) [Entitic mass] 32.3 pg Normal 26.7-34.0 [facility] Comment on above: Performed By: #### I NFLUAB #### [facility] [address] [place] [address] Dr. Roscoe Segal MCHC (RBC) [Mass/Vol] 33.3 g/dL Normal 29.9-35.2 [facility] Comment on above: Performed By: #### I NFLUAB #### [facility] [address] [place] [address] [address] Roscoe Segal MCV (RBC) [Entitic vol] 96.8 fL Normal 81.0-99.0 [facility] Comment on above: Performed By: #### I NFLUAB #### [facility] [address] [place] [address] Dr. Roscoe Segal MONO # 0.6 103/ul Normal 0.3-0.8 [facility] Comment on above: Performed By: #### I NFLUAB #### [facility] [address] [place] [address] Dr. Roscoe Segal Monocytes/100 WBC (Bld) 9.1 % Normal 1.7-12.0 [facility] Comment on above: Performed By: #### I NFLUAB #### [facility] [address] [place] [address] Dr. Roscoe Segal NEUT # 3.8 103/ul Normal 1.4-6.5 [facility] Comment on above: Performed By: #### I NFLUAB #### [facility] [address] [place] [address] Dr. Roscoe Segal Neutrophils/100 WBC (Bld) 61.5 % Normal 43.0-75.0 [facility] Comment on above: Performed By: #### I NFLUAB #### [facility] [address] [place] [address] Dr. Roscoe Segal Platelet mean volume (Bld) [Entitic vol] 8.5 fL Critically low 9.5-13.5 [facility] Comment on above: Performed By: #### I NFLUAB #### [facility] [address] [place] [address] Dr. Roscoe Segal PLT 268 103/ul Normal 150-450 [facility] Comment on above: Performed By: #### I NFLUAB #### [facility] [address] [place] [address] Dr. Roscoe Segal RBC 4.62 106/ul Normal 4.20-5.40 [facility] Comment on above: Performed By: #### I NFLUAB #### [facility] [address] [address] [address] Roscoe Segal WBC 6.3 103/ul Normal 4.0-11.0 [facility] Comment on above: Performed By: #### I NFLUAB #### [facility] [address] [place] [address] Dr. Roscoe Segal GLYCOHEMOGLOBIN A1Con 2022 ADA RECOMMENDATION SEE BELOW Normal [facility] Comment on above: Result Comment: ADA RECOMMENDED LIMIT 4.0 - 6.0 ADA THERAPEUTIC TARGET < 7.0 ACTION SUGGESTED > 7.0 Performed By: #### C BC #### [facility] [address] [address] [address] Roscoe Segal Glucose [Mass/Vol] 137 mg/dL Normal [facility] Comment on above: Performed By: #### C BC #### [facility] [address] [place] [address] Dr. Roscoe Segal HbA1c (Bld) [Mass fraction] 6.4 % Critically high 4.5-6.2 [facility] Comment on above: Performed By: #### C BC #### [facility] [address] [place] [address] Dr. Roscoe Segal LIPID PROFILEon 12-01-2022 CHOL-HDL RATIO NORM SEE BELOW Normal [facility] Comment on above: Result Comment: 3.3 - 4.4 LOW RISK 4.4 - 7.1 AVERAGE RISK 7.1 - 11.0 MODERATE RISK >11.0 HIGH RISK Performed By: #### I NFLUAB #### [facility] [address] [place] [address] Dr. Roscoe Segal Cholesterol [Mass/Vol] 116 mg/dL Normal <=200 [facility] Comment on above: Performed By: #### I NFLUAB #### [facility] [address] [place] [address] Dr. Roscoe Segal Cholesterol in HDL [Mass/Vol] 58 mg/dL Normal 40-60 [facility] Comment on above: Performed By: #### I NFLUAB #### [facility] [address] [place] [address] Dr. Roscoe Segal Cholesterol in LDL [Mass/Vol] 43.4 mg/dL Normal [facility] Comment on above: Performed By: #### I NFLUAB #### [facility] [address] [address] [address] Roscoe Segal Cholesterol.total/Chol esterol in HDL [Mass ratio] 2.0 {ratio} Normal [facility] Comment on above: Performed By: #### I NFLUAB #### [facility] [address] [address] [address] Roscoe Segal HDL NORMAL > or = 60 mg/dl - LO W CARDIOVASCULAR RISK <40 mg/dl - HIGH CARDIOVASCULAR RISK Normal [facility] Comment on above: Performed By: #### I NFLUAB #### [facility] [address] [address] [address] Roscoe Segal LDL CALC NORMAL SEE BELOW Normal [facility] Comment on above: Result Comment: <100 mg/dl OPTIMAL 100 - 129 mg/dl NEAR OR ABOVE OPTIMAL 130 - 159 mg/dl BORDERLINE HIGH 160 - 189 mg/dl HIGH >190 mg/dl VERY HIGH Performed By: #### I NFLUAB #### [facility] [address] [address] [address] Roscoe Segal Triglyceride [Mass/Vol] 73 mg/dL Normal <=150 [facility] Comment on above: Performed By: #### I NFLUAB #### [facility] [address] [address] [address] Roscoe Segal VLDL CALC 14.6 mg/dL Normal [facility] Comment on above: Performed By: #### I NFLUAB #### [facility] [address] [address] [address] Roscoe Segal PROF 14(COMP METB)on 023 Albumin [Mass/Vol] 2.9 g/dL Critically low 3.4-5.0 [facility] Comment on above: Performed By: #### P OCGLUC #### [facility] [address] [address] [address] Roscoe Segal Albumin/Globulin [Mass ratio] 0.8 {ratio} Normal [facility] Comment on above: Performed By: #### P OCGLUC #### [facility] [address] [address] [address] Roscoe Segal ALP [Catalytic activity/Vol] 114 U/L Normal 46-116 [facility] Comment on above: Performed By: #### P OCGLUC #### [facility] [address] [address] [address] Roscoe Segal ALT [Catalytic activity/Vol] 15 U/L Normal 14-59 [facility] Comment on above: Performed By: #### P OCGLUC #### [facility] [address] [address] [address] Roscoe Segal Anion gap [Moles/Vol] 14.3 mmol/L Normal [facility] Comment on above: Performed By: #### P OCGLUC #### [facility] [address] [address] [address] Roscoe Segal AST [Catalytic activity/Vol] 10 U/L Critically low 15-37 [facility] Comment on above: Performed By: #### P OCGLUC #### [facility] [address] [address] [address] Roscoe Segal Bilirubin [Mass/Vol] 0.3 mg/dL Normal 0.2-1.0 [facility] Comment on above: Performed By: #### P OCGLUC #### [facility] [address] [address] [address] Roscoe Segal Calcium [Mass/Vol] 8.7 mg/dL Normal 8.5-10.1 [facility] Comment on above: Performed By: #### P OCGLUC #### [facility] [address] [address] [address] Roscoe Segal Chloride [Moles/Vol] 104 mmol/L Normal 98-107 [facility] Comment on above: Performed By: #### P OCGLUC #### [facility] [address] [address] [address] Roscoe Segal CO2 [Moles/Vol] 23.5 mmol/L Normal 21.0-32.0 [facility] Comment on above: Performed By: #### P OCGLUC #### [facility] [address] [address] [address] Roscoe Segal Creatinine [Mass/Vol] 0.83 mg/dL Normal 0.55-1.02 [facility] Comment on above: Performed By: #### P OCGLUC #### [facility] [address] [address] [address] Roscoe Segal EGFR-AF MONTENEGRIN >60 Normal >=60 [facility] Comment on above: Performed By: #### P OCGLUC #### [facility] [address] [address] [address] Roscoe Segal EGFR-NON AF MONTENEGRIN >60 Normal >=60 [facility] Comment on above: Performed By: #### P OCGLUC #### [facility] [address] [address] [address] Roscoe Segal Globulin (S) [Mass/Vol] 3.5 g/dL Normal [facility] Comment on above: Performed By: #### P OCGLUC #### [facility] [address] [address] [address] Roscoe Segal Glucose [Mass/Vol] 235 mg/dL Critically high 74-106 [facility] Comment on above: Performed By: #### P OCGLUC #### [facility] [address] [address] [address] Roscoe Segal Potassium [Moles/Vol] 3.8 mmol/L Normal 3.5-5.1 [facility] Comment on above: Performed By: #### P OCGLUC #### [facility] [address] [address] [address] Roscoe Segal Protein [Mass/Vol] 6.4 g/dL Normal 6.4-8.2 [facility] Comment on above: Performed By: #### P OCGLUC #### [facility] [address] [address] [address] Roscoe Segal Sodium [Moles/Vol] 138 mmol/L Normal 136-145 [facility] Comment on above: Performed By: #### P OCGLUC #### [facility] [address] [place] [address] Dr. Roscoe Segal Urea nitrogen [Mass/Vol] 9.0 mg/dL Normal 7.0-18.0 [facility] Comment on above: Performed By: #### P OCGLUC #### [facility] [address] [place] [address] Dr. Roscoe Segal Urea nitrogen/Creatinine [Mass ratio] 10.8 mg/mg Normal [facility] Comment on above: Performed By: #### P OCGLUC #### [facility] [address] [place] [address] Dr. Roscoe Segal CARDIAC VICK ADMITon 023 CK [Catalytic activity/Vol] 43 U/L Normal 26-192 [facility] Comment on above: Performed By: #### I NFLUAB #### [facility] [address] [place] [address] Dr. Roscoe Segal CK.MB [Mass/Vol] 2.22 ng/mL Normal <=3.60 [facility] Comment on above: Performed By: #### I NFLUAB #### [facility] [address] [place] [address] Dr. Roscoe Segal GWEN 58 ng/mL Normal 9-82 [facility] Comment on above: Performed By: #### I NFLUAB #### [facility] [address] [place] [address] Dr. Roscoe Segal CBC AUTO DIFFon 09-11-2022 BASO # 0.1 103/ul Normal 0.0-0.1 [facility] Comment on above: Performed By: #### P OCGLUC #### [facility] [address] [place] [address] Dr. Roscoe Segal Basophils/100 WBC (Bld) 0.8 % Normal 0.2-2.0 [facility] Comment on above: Performed By: #### P OCGLUC #### [facility] [address] [place] [address] Dr. Roscoe Segal EO # 0.2 103/ul Normal 0.0-0.7 [facility] Comment on above: Performed By: #### P OCGLUC #### [facility] [address] [address] [address] Roscoe Segal Eosinophils/100 WBC (Bld) 2.1 % Normal 0.9-7.0 [facility] Comment on above: Performed By: #### P OCGLUC #### [facility] [address] [place] [address] Dr. Roscoe Segal Erythrocyte distribution width (RBC) [Ratio] 14.2 % Normal 11.0-15.0 [facility] Comment on above: Performed By: #### P OCGLUC #### [facility] [address] [place] [address] Dr. Roscoe Segal Hematocrit (Bld) [Volume fraction] 48.4 % Critically high 36.0-48.0 [facility] Comment on above: Performed By: #### P OCGLUC #### [facility] [address] [place] [address] Dr. Roscoe Segal Hemoglobin (Bld) [Mass/Vol] 15.0 g/dL Normal 12.0-16.0 [facility] Comment on above: Performed By: #### P OCGLUC #### [facility] [address] [place] [address] Dr. Roscoe Segal IG # 0.02 10e3/ul Normal 0.00-0.03 [facility] Comment on above: Performed By: #### P OCGLUC #### [facility] [address] [place] [address] Dr. Roscoe Segal IG % 0.2 % Normal 0.0-0.5 [facility] Comment on above: Performed By: #### P OCGLUC #### [facility] [address] [place] [address] Dr. Roscoe Segal LYMPH # 2.2 103/ul Normal 1.2-3.8 [facility] Comment on above: Performed By: #### P OCGLUC #### [facility] [address] [place] [address] Dr. Roscoe Segal Lymphocytes/100 WBC (Bld) 26.8 % Normal 20.5-60.0 [facility] Comment on above: Performed By: #### P OCGLUC #### [facility] [address] [address] [address] Roscoe Segal MANUAL DIFF REQ NO Normal [facility] Comment on above: Performed By: #### P OCGLUC #### [facility] [address] [place] [address] Dr. Roscoe Segal MCH (RBC) [Entitic mass] 32.8 pg Normal 26.7-34.0 [facility] Comment on above: Performed By: #### P OCGLUC #### [facility] [address] [place] [address] Dr. Roscoe Segal MCHC (RBC) [Mass/Vol] 31.0 g/dL Normal 29.9-35.2 [facility] Comment on above: Performed By: #### P OCGLUC #### [facility] [address] [place] [address] Dr. Roscoe Segal MCV (RBC) [Entitic vol] 105.7 fL Critically high 81.0-99.0 [facility] Comment on above: Result Comment: Slig ht Macrocytosis Present Performed By: #### P OCGLUC #### [facility] [address] [place] [address] Dr. Roscoe Segal MONO # 0.7 103/ul Normal 0.3-0.8 [facility] Comment on above: Performed By: #### P OCGLUC #### [facility] [address] [place] [address] Dr. Roscoe Segal Monocytes/100 WBC (Bld) 8.9 % Normal 1.7-12.0 [facility] Comment on above: Performed By: #### P OCGLUC #### [facility] [address] [place] [address] Dr. Roscoe Segal NEUT # 5.1 103/ul Normal 1.4-6.5 [facility] Comment on above: Performed By: #### P OCGLUC #### [facility] [address] [place] [address] Dr. Roscoe Segal Neutrophils/100 WBC (Bld) 61.2 % Normal 43.0-75.0 [facility] Comment on above: Performed By: #### P OCGLUC #### [facility] [address] [address] [address] Roscoe Segal Platelet mean volume (Bld) [Entitic vol] 8.7 fL Critically low 9.5-13.5 [facility] Comment on above: Performed By: #### P OCGLUC #### [facility] [address] [address] [address] Roscoe Segal PLT 382 103/ul Normal 150-450 [facility] Comment on above: Performed By: #### P OCGLUC #### [facility] [address] [address] [address] Roscoe Segal RBC 4.58 106/ul Normal 4.20-5.40 [facility] Comment on above: Performed By: #### P OCGLUC #### [facility] [address] [address] [address] Roscoe Segal WBC 8.3 103/ul Normal 4.0-11.0 [facility] Comment on above: Performed By: #### P OCGLUC #### [facility] [address] [address] [address] Roscoe Segal GLUCOSE BLOODon 09-11-2022 Glucose [Mass/Vol] 39 mg/dL Critically low 74-106 [facility] Comment on above: Performed By: #### P OCGLUC #### [facility] [address] [address] [address] Roscoe Segal POINT OF CARE GLUCOSEon 08-17 Glucose [Mass/Vol] 103 mg/dL Normal 74-106 [facility] Comment on above: Performed By: #### P OCGLUC #### [facility] [address] [address] [address] Roscoe Segal Glucose [Mass/Vol] 284 mg/dL Critically high 74-106 [facility] Comment on above: Performed By: #### P OCGLUC #### [facility] [address] [address] [address] Roscoe Segal Glucose [Mass/Vol] 104 mg/dL Normal 74-106 [facility] Comment on above: Performed By: #### P OCGLUC #### [facility] [address] [address] [address] Roscoe Segal Glucose [Mass/Vol] 94 mg/dL Normal 74-106 [facility] Comment on above: Performed By: #### I NFLUAB #### [facility] [address] [address] [address] Roscoe Segal Glucose [Mass/Vol] 136 mg/dL Critically high 74-106 [facility] Comment on above: Performed By: #### P OCGLUC #### [facility] [address] [address] [address] Roscoe Segal Glucose [Mass/Vol] 181 mg/dL Critically high 74-106 [facility] Comment on above: Performed By: #### P OCGLUC #### [facility] [address] [address] [address] Roscoe Segal Glucose [Mass/Vol] 103 mg/dL Normal 74-106 [facility] Comment on above: Performed By: #### C BC #### [facility] [address] [address] [address] Roscoe Segal Glucose [Mass/Vol] 81 mg/dL Normal 74-106 [facility] Comment on above: Performed By: #### P OCGLUC #### [facility] [address] [address] [address] Roscoe Segal Glucose [Mass/Vol] 52 mg/dL Critically low 74-106 [facility] Comment on above: Performed By: #### P OCGLUC #### [facility] [address] [address] [address] Roscoe Segal Glucose [Mass/Vol] 38 mg/dL Critically low 74-106 [facility] Comment on above: Result Comment: Will Repeat Test Performed By: #### C BC #### [facility] [address] [address] [address] Roscoe Segal Glucose [Mass/Vol] 67 mg/dL Critically low 74-106 [facility] Comment on above: Performed By: #### P OCGLUC #### [facility] [address] [address] [address] Roscoe Segal PROF CHEM 8 (BAS METB)on Anion gap [Moles/Vol] 13.1 mmol/L Normal [facility] Comment on above: Performed By: #### C BC #### [facility] [address] [place] [address] Dr. Roscoe Segal Calcium [Mass/Vol] 9.0 mg/dL Normal 8.5-10.1 [facility] Comment on above: Performed By: #### C BC #### [facility] [address] [place] [address] Dr. Roscoe Segal Chloride [Moles/Vol] 106 mmol/L Normal 98-107 [facility] Comment on above: Performed By: #### C BC #### [facility] [address] [place] [address] Dr. Roscoe Segal CO2 [Moles/Vol] 25.0 mmol/L Normal 21.0-32.0 [facility] Comment on above: Performed By: #### C BC #### [facility] [address] [place] [address] Dr. Roscoe Segal Creatinine [Mass/Vol] 0.86 mg/dL Normal 0.55-1.02 [facility] Comment on above: Performed By: #### C BC #### [facility] [address] [place] [address] Dr. Roscoe Segal EGFR-AF MONTENEGRIN >60 Normal >=60 [facility] Comment on above: Performed By: #### C BC #### [facility] [address] [place] [address] Dr. Roscoe Segal EGFR-NON AF MONTENEGRIN >60 Normal >=60 [facility] Comment on above: Performed By: #### C BC #### [facility] [address] [place] [address] Dr. Roscoe Segal Glucose [Mass/Vol] 36 mg/dL Critically low 74-106 [facility] Comment on above: Performed By: #### C BC #### [facility] [address] [place] [address] Dr. Roscoe Segal Potassium [Moles/Vol] 4.1 mmol/L Normal 3.5-5.1 [facility] Comment on above: Performed By: #### C BC #### [facility] [address] [address] [address] Roscoe Segal Sodium [Moles/Vol] 140 mmol/L Normal 136-145 [facility] Comment on above: Performed By: #### C BC #### [facility] [address] [address] [address] Roscoe Segal Urea nitrogen [Mass/Vol] 10.0 mg/dL Normal 7.0-18.0 [facility] Comment on above: Performed By: #### C BC #### [facility] [address] [place] [address] Dr. Roscoe Segal Urea nitrogen/Creatinine [Mass ratio] 11.6 mg/mg Normal [facility] Comment on above: Performed By: #### C BC #### [facility] [address] [place] [address] Dr. Roscoe Segal TROPONIN, HIGH SENSITIVITYon 09-11-2022 HSTROP 7.0 pg/mL Normal 4.0-51.3 [facility] Comment on above: Result Comment: CUT- OFF POINTS HAVE BEEN ESTABLISHED BASED ON THE FOURTH UNIVERSAL DEFINITIONS OF MYOCARDIAL INFARCTION. THE UPPER REFERENCE LIMIT (URL) OF TROPONIN, DEFINED THE 99TH PERCENTILE OF cTnI DISTRIBUTION IN A REFERENCE POPULATION, HAS BEEN CONFIRMED THE DECISION THRESHOLD FOR CO DIAGNOSIS. Performed By: #### I NFLUAB #### [facility] [address] [place] [address] Dr. Roscoe Segal INFLUENZA A AND B AGon 07-24 INFLUANEGH SEE BELOW Normal [facility] Comment on above: Result Comment: Nega tive for Flu A protein angiten. Infection due to Flu A cannot be ruled out. Flu A angiten in the sample may be below the detection limit of the test. Performed By: #### I NFLUAB #### [facility] [address] [place] [address] Dr. Roscoe Segal INFLUBNEGH SEE BELOW Normal [facility] Comment on above: Result Comment: Nega tive for Flu B protein antigen. Infection due to Flu B cannot be ruled out. Flu B antigen in the sample may be below the detection limit of the test. Performed By: #### I NFLUAB #### [facility] [address] [place] [address] Dr. Roscoe Segal INFLUENZA A AG Negative Normal NEGATIVE SEE COMMENT [facility] Comment on above: Performed By: #### I NFLUAB #### [facility] [address] [place] [address] Dr. Roscoe Segal INFLUENZA B AG Negative Normal NEGATIVE SEE COMMENT [facility] Comment on above: Performed By: #### I NFLUAB #### [facility] [address] [place] [address] Dr. Roscoe Segal INTERNAL CONTROLS Within Normal Limits Normal Wi thin Normal Limits [facility] Comment on above: Performed By: #### I NFLUAB #### [facility] [address] [place] [address] Dr. Roscoe Segal XR CHEST 1 Von [...] SHAJI LIMON Date: 2022-07-24 15:26 Normal [facility] XR CHEST 2 Von 05-25-2022 [...] by: GERMAINE FARRELL Date: 2022-05-25 16:25 Normal [facility] BLOOD GASES BTYon 04-27-2022 02 MODE NASAL CANNULA Normal [facility] Comment on above: Performed By: #### P OCGLUC #### [facility] [address] [place] [address] Dr. Roscoe Segal ALLENS TEST Positive [facility] Comment on above: Performed By: #### P OCGLUC #### [facility] [address] [address] [address] Roscoe Segal Base excess Calc (Bld) [Moles/Vol] -1.5000 mmol/L Normal -2.0-2.0 [facility] Comment on above: Performed By: #### P OCGLUC #### [facility] [address] [place] [address] Dr. Roscoe Segal BIPAP PRESSURE [facility] Comment on above: Performed By: #### P OCGLUC #### [facility] [address] [address] [address] Roscoe Segal CPAP [facility] Comment on above: Performed By: #### P OCGLUC #### [facility] [address] [address] [address] Roscoe Segal FIO2 [facility] Comment on above: Performed By: #### P OCGLUC #### [facility] [address] [place] [address] Dr. Roscoe Segal HCO3 (Bld) [Moles/Vol] 23.2 mmol/L Normal 22.0-26.0 [facility] Comment on above: Performed By: #### P OCGLUC #### [facility] [address] [place] [address] Dr. Roscoe Segal LPM 3 [facility] Comment on above: Performed By: #### P OCGLUC #### [facility] [address] [place] [address] Dr. Roscoe Segal MINUTE VOLUME Normal [facility] Comment on above: Performed By: #### P OCGLUC #### [facility] [address] [address] [address] Roscoe Segal Oxygen (Bld) [Partial pressure] 76.4 mm[Hg] Critically low 80.0-100.0 [facility] Comment on above: Performed By: #### P OCGLUC #### [facility] [address] [place] [address] Dr. Roscoe Segal Oxygen saturation in Blood 94.8 % Critically low 95.0-100.0 [facility] Comment on above: Performed By: #### P OCGLUC #### [facility] [address] [address] [address] Roscoe Segal PCO2 39.5 mmHg Normal 35.0-45.0 [facility] Comment on above: Performed By: #### P OCGLUC #### [facility] [address] [place] [address] Dr. Roscoe Segal [facility] Comment on above: Performed By: #### P OCGLUC #### [facility] [address] [place] [address] Dr. Roscoe Segal pH (Bld) 7.384 [pH] Normal 7.350-7.45 0 [facility] Comment on above: Performed By: #### P OCGLUC #### [facility] [address] [place] [address] Dr. Roscoe Segal [facility] Comment on above: Performed By: #### P OCGLUC #### [facility] [address] [address] [address] Roscoe Segal PS [facility] Comment on above: Performed By: #### P OCGLUC #### [facility] [address] [address] [address] Roscoe Segal PUNCTURE SITE LR [facility] Comment on above: Performed By: #### P OCGLUC #### [facility] [address] [place] [address] Dr. Roscoe Segal RATE [facility] Comment on above: Performed By: #### P OCGLUC #### [facility] [address] [address] [address] Roscoe Segal VENT MODE Normal [facility] Comment on above: Performed By: #### P OCGLUC #### [facility] [address] [place] [address] Dr. Roscoe Segal [facility] Comment on above: Performed By: #### P OCGLUC #### [facility] [address] [place] [address] Dr. Roscoe Segal BNPon 04-27-2022 Natriuretic peptide B (Bld) [Mass/Vol] 282.0 pg/mL Normal <=450.0 [facility] Comment on above: Performed By: #### P OCGLUC #### [facility] [address] [place] [address] Dr. Roscoe Segal CBC AUTO DIFFon 04-27-2022 BASO # 0.0 103/ul Normal 0.0-0.1 [facility] Comment on above: Performed By: #### P OCGLUC #### [facility] [address] [place] [address] Dr. Roscoe Segal Basophils/100 WBC (Bld) 0.2 % Normal 0.2-2.0 [facility] Comment on above: Performed By: #### P OCGLUC #### [facility] [address] [place] [address] Dr. Roscoe Segal EO # 0.0 103/ul Normal 0.0-0.7 [facility] Comment on above: Performed By: #### P OCGLUC #### [facility] [address] [place] [address] Dr. Roscoe Segal Eosinophils/100 WBC (Bld) 0.0 % Critically low 0.9-7.0 [facility] Comment on above: Performed By: #### P OCGLUC #### [facility] [address] [place] [address] Dr. Roscoe Segal Erythrocyte distribution width (RBC) [Ratio] 14.1 % Normal 11.0-15.0 [facility] Comment on above: Performed By: #### P OCGLUC #### [facility] [address] [place] [address] Dr. Roscoe Segal Hematocrit (Bld) [Volume fraction] 39.4 % Normal 36.0-48.0 [facility] Comment on above: Performed By: #### P OCGLUC #### [facility] [address] [address] [address] Roscoe Segal Hemoglobin (Bld) [Mass/Vol] 13.0 g/dL Normal 12.0-16.0 [facility] Comment on above: Performed By: #### P OCGLUC #### [facility] [address] [place] [address] Dr. Roscoe Segal IG # 0.14 10e3/ul Critically high 0.00-0.03 [facility] Comment on above: Performed By: #### P OCGLUC #### [facility] [address] [place] [address] Dr. Roscoe Segal IG % 1.0 % Critically high 0.0-0.5 [facility] Comment on above: Performed By: #### P OCGLUC #### [facility] [address] [place] [address] Dr. Roscoe Segal LYMPH # 1.4 103/ul Normal 1.2-3.8 [facility] Comment on above: Performed By: #### P OCGLUC #### [facility] [address] [place] [address] Dr. Roscoe Segal Lymphocytes/100 WBC (Bld) 9.5 % Critically low 20.5-60.0 [facility] Comment on above: Performed By: #### P OCGLUC #### [facility] [address] [place] [address] Dr. Roscoe Segal MANUAL DIFF REQ NO Normal [facility] Comment on above: Performed By: #### P OCGLUC #### [facility] [address] [place] [address] Dr. Roscoe Segal MCH (RBC) [Entitic mass] 32.3 pg Normal 26.7-34.0 [facility] Comment on above: Performed By: #### P OCGLUC #### [facility] [address] [place] [address] Dr. Roscoe Segal MCHC (RBC) [Mass/Vol] 33.0 g/dL Normal 29.9-35.2 [facility] Comment on above: Performed By: #### P OCGLUC #### [facility] [address] [address] [address] Roscoe Segal MCV (RBC) [Entitic vol] 98.0 fL Normal 81.0-99.0 [facility] Comment on above: Performed By: #### P OCGLUC #### [facility] [address] [address] [address] Roscoe Segal MONO # 0.6 103/ul Normal 0.3-0.8 [facility] Comment on above: Performed By: #### P OCGLUC #### [facility] [address] [place] [address] Dr. Roscoe Segal Monocytes/100 WBC (Bld) 4.3 % Normal 1.7-12.0 [facility] Comment on above: Performed By: #### P OCGLUC #### [facility] [address] [place] [address] Dr. Roscoe Segal NEUT # 12.1 103/ul Critically high 1.4-6.5 [facility] Comment on above: Performed By: #### P OCGLUC #### [facility] [address] [place] [address] Dr. Roscoe Segal Neutrophils/100 WBC (Bld) 85.0 % Critically high 43.0-75.0 [facility] Comment on above: Performed By: #### P OCGLUC #### [facility] [address] [place] [address] Dr. Roscoe Segal Platelet mean volume (Bld) [Entitic vol] 8.9 fL Critically low 9.5-13.5 [facility] Comment on above: Performed By: #### P OCGLUC #### [facility] [address] [place] [address] Dr. Roscoe Segal PLT 362 103/ul Normal 150-450 [facility] Comment on above: Performed By: #### P OCGLUC #### [facility] [address] [place] [address] Dr. Roscoe Segal RBC 4.02 106/ul Critically low 4.20-5.[address] [facility] Comment on above: Performed By: #### P OCGLUC #### [facility] [address] [place] [address] Dr. Roscoe Segal WBC 14.2 103/ul Critically high 4.0-11.0 [facility] Comment on above: Performed By: #### P OCGLUC #### [facility] [address] [place] [address] Dr. Roscoe Segal D-DIMERon 04-27-2022 D-DIMER 0.29 mg/L FEU Normal <=0.59 [facility] Comment on above: Performed By: #### D DIM #### [facility] [address] [place] [address] Dr. Roscoe Segal D-DIMER COMMENTS SEE BELOW Normal [facility] Comment on above: Result Comment: [...] hospitalization. Performed By: #### D DIM #### [facility] [address] [place] [address] Dr. Roscoe Segal LACTATE/LACTIC ACIDon 2021 Lactate [Moles/Vol] 2.1 mmol/L Critically high 0.4-1.9 [facility] Comment on above: Performed By: #### P OCGLUC #### [facility] [address] [place] [address] Dr. Roscoe Segal PROF 14(COMP METB)on 022 Albumin [Mass/Vol] 3.0 g/dL Critically low 3.4-5.0 [facility] Comment on above: Performed By: #### P OCGLUC #### [facility] [address] [place], [place] [id number] Dr. Roscoe Segal Albumin/Globulin [Mass ratio] 0.8 {ratio} Normal [facility] Comment on above: Performed By: #### P OCGLUC #### [facility] [address] [address] [address] Roscoe Segal ALP [Catalytic activity/Vol] 77 U/L Normal 46-116 [facility] Comment on above: Performed By: #### P OCGLUC #### [facility] [address] [address] [address] Roscoe Segal ALT [Catalytic activity/Vol] 14 U/L Normal 14-59 [facility] Comment on above: Performed By: #### P OCGLUC #### [facility] [address] [place] [address] Dr. Roscoe Segal Anion gap [Moles/Vol] 13.4 mmol/L Normal [facility] Comment on above: Performed By: #### P OCGLUC #### [facility] [address] [address] [address] Roscoe Segal AST [Catalytic activity/Vol] 7 U/L Critically low 15-37 [facility] Comment on above: Performed By: #### P OCGLUC #### [facility] [address] [place] [address] Dr. Roscoe Segal Bilirubin [Mass/Vol] 0.1 mg/dL Critically low 0.2-1.0 [facility] Comment on above: Performed By: #### P OCGLUC #### [facility] [address] [address] [address] Roscoe Segal Calcium [Mass/Vol] 8.9 mg/dL Normal 8.5-10.1 [facility] Comment on above: Performed By: #### P OCGLUC #### [facility] [address] [place] [address] Dr. Roscoe Segal Chloride [Moles/Vol] 105 mmol/L Normal 98-107 [facility] Comment on above: Performed By: #### P OCGLUC #### [facility] [address] [place] [address] Dr. Roscoe Segal CO2 [Moles/Vol] 21.8 mmol/L Normal 21.0-32.0 [facility] Comment on above: Performed By: #### P OCGLUC #### [facility] [address] [address] [address] Roscoe Segal Creatinine [Mass/Vol] 0.94 mg/dL Normal 0.55-1.02 [facility] Comment on above: Performed By: #### P OCGLUC #### [facility] [address] [address] [address] Roscoe Segal EGFR-AF MONTENEGRIN >60 Normal >=60 [facility] Comment on above: Performed By: #### P OCGLUC #### [facility] [address] [address] [address] Roscoe Segal EGFR-NON AF MONTENEGRIN >60 Normal >=60 [facility] Comment on above: Performed By: #### P OCGLUC #### [facility] [address] [address] [address] Roscoe Segal Globulin (S) [Mass/Vol] 3.7 g/dL Normal [facility] Comment on above: Performed By: #### P OCGLUC #### [facility] [address] [address] [address] Roscoe Segal Glucose [Mass/Vol] 283 mg/dL Critically high 74-106 [facility] Comment on above: Performed By: #### P OCGLUC #### [facility] [address] [address] [address] Roscoe Segal Potassium [Moles/Vol] 4.2 mmol/L Normal 3.5-5.1 [facility] Comment on above: Performed By: #### P OCGLUC #### [facility] [address] [address] [address] Roscoe Segal Protein [Mass/Vol] 6.7 g/dL Normal 6.4-8.2 [facility] Comment on above: Performed By: #### P OCGLUC #### [facility] [address] [address] [address] Roscoe Segal Sodium [Moles/Vol] 136 mmol/L Normal 136-145 [facility] Comment on above: Performed By: #### P OCGLUC #### [facility] [address] [address] [address] Roscoe Segal Urea nitrogen [Mass/Vol] 16.0 mg/dL Normal 7.0-18.0 [facility] Comment on above: Performed By: #### P OCGLUC #### [facility] [address] [address] [address] Roscoe Segal Urea nitrogen/Creatinine [Mass ratio] 17.0 mg/mg Normal [facility] Comment on above: Performed By: #### P OCGLUC #### [facility] [address] [address] [address] Roscoe Segal TROPONIN, HIGH SENSITIVITYon 04-27-2022 HSTROP 7.2 pg/mL Normal 4.0-51.3 [facility] Comment on above: Result Comment: CUT- OFF POINTS HAVE BEEN ESTABLISHED BASED ON THE FOURTH UNIVERSAL DEFINITIONS OF MYOCARDIAL INFARCTION. THE UPPER REFERENCE LIMIT (URL) OF TROPONIN, DEFINED THE 99TH PERCENTILE OF cTnI DISTRIBUTION IN A REFERENCE POPULATION, HAS BEEN CONFIRMED THE DECISION THRESHOLD FOR CO DIAGNOSIS. Performed By: #### P OCGLUC #### [facility] [address] [address] [address] Roscoe Segal XR CHEST 1 Von [...] by: GERMAINE FARRELL Date: 2022-04-27 17:20 Normal [facility] CBC AUTO DIFFon 04-25-2022 BASO # 0.1 103/ul Normal 0.0-0.1 [facility] Comment on above: Performed By: #### P OCGLUC #### [facility] [address] [address] [address] Roscoe Segal Basophils/100 WBC (Bld) 0.4 % Normal 0.2-2.0 [facility] Comment on above: Performed By: #### P OCGLUC #### [facility] [address] [address] [address] Roscoe Segal EO # 0.1 103/ul Normal 0.0-0.7 [facility] Comment on above: Performed By: #### P OCGLUC #### [facility] [address] [address] [address] Roscoe Segal Eosinophils/100 WBC (Bld) 0.7 % Critically low 0.9-7.0 [facility] Comment on above: Performed By: #### P OCGLUC #### [facility] [address] [place] [address] Dr. Roscoe Segal Erythrocyte distribution width (RBC) [Ratio] 14.1 % Normal 11.0-15.0 [facility] Comment on above: Performed By: #### P OCGLUC #### [facility] [address] [place] [address] Dr. Roscoe Segal Hematocrit (Bld) [Volume fraction] 43.8 % Normal 36.0-48.0 [facility] Comment on above: Performed By: #### P OCGLUC #### [facility] [address] [address] [address] Roscoe Segal Hemoglobin (Bld) [Mass/Vol] 14.6 g/dL Normal 12.0-16.0 [facility] Comment on above: Performed By: #### P OCGLUC #### [facility] [address] [place] [address] Dr. Roscoe Segal IG # 0.09 10e3/ul Critically high 0.00-0.03 [facility] Comment on above: Performed By: #### P OCGLUC #### [facility] [address] [address] [address] Roscoe Segal IG % 0.6 % Critically high 0.0-0.[address] [facility] Comment on above: Performed By: #### P OCGLUC #### [facility] [address] [address] [address] Roscoe Segal LYMPH # 1.5 103/ul Normal 1.2-3.8 [facility] Comment on above: Performed By: #### P OCGLUC #### [facility] [address] [address] [address] Roscoe Segal Lymphocytes/100 WBC (Bld) 9.9 % Critically low 20.5-60.0 [facility] Comment on above: Performed By: #### P OCGLUC #### [facility] [address] [address] [address] Roscoe Segal MANUAL DIFF REQ NO Normal [facility] Comment on above: Performed By: #### P OCGLUC #### [facility] [address] [address] [address] Roscoe Segal MCH (RBC) [Entitic mass] 31.8 pg Normal 26.7-34.0 [facility] Comment on above: Performed By: #### P OCGLUC #### [facility] [address] [address] [address] Roscoe Segal MCHC (RBC) [Mass/Vol] 33.3 g/dL Normal 29.9-35.2 [facility] Comment on above: Performed By: #### P OCGLUC #### [facility] [address] [address] [address] Roscoe Segal MCV (RBC) [Entitic vol] 95.4 fL Normal 81.0-99.0 [facility] Comment on above: Performed By: #### P OCGLUC #### [facility] [address] [address] [address] Roscoe Segal MONO # 1.2 103/ul Critically high 0.3-0.[address] [facility] Comment on above: Performed By: #### P OCGLUC #### [facility] [address] [address] [address] Roscoe Segal Monocytes/100 WBC (Bld) 8.0 % Normal 1.7-12.0 [facility] Comment on above: Performed By: #### P OCGLUC #### [facility] [address] [place] [address] Dr. Roscoe Segal NEUT # 11.8 103/ul Critically high 1.4-6.5 [facility] Comment on above: Performed By: #### P OCGLUC #### [facility] [address] [place] [address] Dr. Roscoe Segal Neutrophils/100 WBC (Bld) 80.4 % Critically high 43.0-75.0 [facility] Comment on above: Performed By: #### P OCGLUC #### [facility] [address] [place] [address] Dr. Roscoe Segal Platelet mean volume (Bld) [Entitic vol] 8.9 fL Critically low 9.5-13.5 [facility] Comment on above: Performed By: #### P OCGLUC #### [facility] [address] [place] [address] Dr. Roscoe Segal PLT 357 103/ul Normal 150-450 [facility] Comment on above: Performed By: #### P OCGLUC #### [facility] [address] [place] [address] Dr. Roscoe Segal RBC 4.59 106/ul Normal 4.20-5.40 [facility] Comment on above: Performed By: #### P OCGLUC #### [facility] [address] [place] [address] Dr. Roscoe Segal WBC 14.7 103/ul Critically high 4.0-11.0 [facility] Comment on above: Performed By: #### P OCGLUC #### [facility] [address] [place] [address] Dr. Roscoe Segal Covid-19 PCR ([facility])on 04-16 SARS-CoV-2 (COVID-19) RNA SOILA+probe Ql (Unsp spec) Not detected Normal NOT DETECTED [facility] Comment on above: Result Comment: [...] for this test is supported by the [place] [employer] of [employer] and Human Service's declaration that [...] used). Performed By: #### P OCGLUC #### [facility] [address] [place] [address] Dr. Roscoe Segal PROF CHEM 8 (BAS METB)on Anion gap [Moles/Vol] 16.1 mmol/L Normal [facility] Comment on above: Performed By: #### B MP #### [facility] [address] [place] [address] Dr. Roscoe Segal Calcium [Mass/Vol] 9.2 mg/dL Normal 8.5-10.1 [facility] Comment on above: Performed By: #### B MP #### [facility] [address] [place] [address] Dr. Roscoe Segal Chloride [Moles/Vol] 104 mmol/L Normal 98-107 [facility] Comment on above: Performed By: #### B MP #### [facility] [address] [place] [address] Dr. Roscoe Segal CO2 [Moles/Vol] 22.5 mmol/L Normal 21.0-32.0 [facility] Comment on above: Performed By: #### B MP #### [facility] [address] [place] [address] Dr. Roscoe Segal Creatinine [Mass/Vol] 0.93 mg/dL Normal 0.55-1.02 [facility] Comment on above: Performed By: #### B MP #### [facility] [address] [address] [address] Roscoe Segal EGFR-AF MONTENEGRIN >60 Normal >=60 [facility] Comment on above: Performed By: #### B MP #### [facility] [address] [address] [address] Roscoe Segal EGFR-NON AF MONTENEGRIN >60 Normal >=60 [facility] Comment on above: Performed By: #### B MP #### [facility] [address] [address] [address] Roscoe Segal Glucose [Mass/Vol] 227 mg/dL Critically high 74-106 [facility] Comment on above: Performed By: #### B MP #### [facility] [address] [address] [address] Roscoe Segal Potassium [Moles/Vol] 3.6 mmol/L Normal 3.5-5.1 [facility] Comment on above: Performed By: #### B MP #### [facility] [address] [address] [address] Roscoe Segal Sodium [Moles/Vol] 139 mmol/L Normal 136-145 [facility] Comment on above: Performed By: #### B MP #### [facility] [address] [address] [address] Roscoe Segal Urea nitrogen [Mass/Vol] 9.0 mg/dL Normal 7.0-18.0 [facility] Comment on above: Performed By: #### B MP #### [facility] [address] [address] [address] Roscoe Segal Urea nitrogen/Creatinine [Mass ratio] 9.7 mg/mg Normal [facility] Comment on above: Performed By: #### B MP #### [facility] [address] [address] [address] Roscoe Segal XR CHEST 1 Von [...] GERMAINE FARRELL Date: 2022-04-25 09:41 Normal [facility] GLYCOHEMOGLOBIN A1Con 2021 ADA RECOMMENDATION SEE BELOW Normal [facility] Comment on above: Result Comment: ADA RECOMMENDED LIMIT 4.0 - 6.0 ADA THERAPEUTIC TARGET < 7.0 ACTION SUGGESTED > 7.0 Performed By: #### P OCGLUC #### [facility] [address] [address] [address] Roscoe Segal Glucose [Mass/Vol] 128 mg/dL Normal [facility] Comment on above: Performed By: #### P OCGLUC #### [facility] [address] [address] [address] Roscoe Segal HbA1c (Bld) [Mass fraction] 6.1 % Normal 4.5-6.2 [facility] Comment on above: Performed By: #### P OCGLUC #### [facility] [address] [address] [address] Roscoe Segal LIPID PROFILEon 04-10-2022 CHOL-HDL RATIO NORM SEE BELOW Normal [facility] Comment on above: Result Comment: 3.3 - 4.4 LOW RISK 4.4 - 7.1 AVERAGE RISK 7.1 - 11.0 MODERATE RISK >11.0 HIGH RISK Performed By: #### L IPID #### [facility] [address] [address] [address] Roscoe Segal Cholesterol [Mass/Vol] 125 mg/dL Normal <=200 [facility] Comment on above: Performed By: #### L IPID #### [facility] [address] [address] [address] Roscoe Segal Cholesterol in HDL [Mass/Vol] 69 mg/dL Critically high 40-60 [facility] Comment on above: Performed By: #### L IPID #### [facility] [address] [address] [address] Roscoe Segal Cholesterol in LDL [Mass/Vol] 31.8 mg/dL Normal [facility] Comment on above: Performed By: #### L IPID #### [facility] [address] [address] [address] Roscoe Segal Cholesterol.total/Chol esterol in HDL [Mass ratio] 1.8 {ratio} Normal [facility] Comment on above: Performed By: #### L IPID #### [facility] [facility] [address] [place] [address] Dr. Roscoe Segal HDL NORMAL > or = 60 mg/dl - LO W CARDIOVASCULAR RISK <40 mg/dl - HIGH CARDIOVASCULAR RISK Normal [facility] Comment on above: Performed By: #### L IPID #### [facility] [address] [place] [address] Dr. Roscoe Segal LDL CALC NORMAL SEE BELOW Normal [facility] Comment on above: Result Comment: <100 mg/dl OPTIMAL 100 - 129 mg/dl NEAR OR ABOVE OPTIMAL 130 - 159 mg/dl BORDERLINE HIGH 160 - 189 mg/dl HIGH >190 mg/dl VERY HIGH Performed By: #### L IPID #### [facility] [address] [place] [address] Dr. Roscoe Segal Triglyceride [Mass/Vol] 121 mg/dL Normal <=150 [facility] Comment on above: Performed By: #### L IPID #### [facility] [address] [place] [address] Dr. Roscoe Segal VLDL CALC 24.2 mg/dL Normal [facility] Comment on above: Performed By: #### L IPID #### [facility] [address] [place] [address] Dr. Roscoe Segal Covid-19 PCR (CVDTBH)on 03-16 SARS-CoV-2 (COVID-19) RNA SOILA+probe Ql (Unsp spec) Not detected Normal NOT DETECTED [facility] Comment on above: Result Comment: This test is not yet approved or cleared by the [place] FDA. When there are no FDA-approved or cleared tests available, and other criteria are met, FDA can make tests available under an emergency access mechanism called an Emergency Use Authorization (EUA). The EUA for this test is supported by the [place] R[employer] of Health and Human Service's (HHS's) declaration [...] SARS-CoV-2. Performed By: #### P OCGLUC #### [facility] [address] [place] [address] Dr. Roscoe Segal XR CHEST 1 Von [...] YASMIN HUERTAS Date: 2022-03-29 15:39 Normal [facility] CBC AUTO DIFFon 03-21-2022 BASO # 0.1 103/ul Normal 0.0-0.1 [facility] Comment on above: Performed By: #### C BC #### [facility] [address] [place] [address] Dr. Roscoe Segal Basophils/100 WBC (Bld) 0.6 % Normal 0.2-2.0 [facility] Comment on above: Performed By: #### C BC #### [facility] [address] [address] [address] Roscoe Segal EO # 0.3 103/ul Normal 0.0-0.7 [facility] Comment on above: Performed By: #### C BC #### [facility] [address] [address] [address] Roscoe Segal Eosinophils/100 WBC (Bld) 2.1 % Normal 0.9-7.0 [facility] Comment on above: Performed By: #### C BC #### [facility] [address] [address] [address] Roscoe Segal Erythrocyte distribution width (RBC) [Ratio] 14.7 % Normal 11.0-15.0 [facility] Comment on above: Performed By: #### C BC #### [facility] [address] [place] [address] Dr. Roscoe Segal Hematocrit (Bld) [Volume fraction] 47.1 % Normal 36.0-48.0 [facility] Comment on above: Performed By: #### C BC #### [facility] [address] [place] [address] Dr. Roscoe Segal Hemoglobin (Bld) [Mass/Vol] 15.6 g/dL Normal 12.0-16.0 [facility] Comment on above: Performed By: #### C BC #### [facility] [address] [address] [address] Roscoe Segal IG # 0.05 10e3/ul Critically high 0.00-0.03 [facility] Comment on above: Performed By: #### C BC #### [facility] [address] [address] [address] Roscoe Segal IG % 0.4 % Normal 0.0-0.5 [facility] Comment on above: Performed By: #### C BC #### [facility] [address] [address] [address] Roscoe Segal LYMPH # 3.9 103/ul Critically high 1.2-3.[address] [facility] Comment on above: Performed By: #### C BC #### [facility] [address] [place] [address] Dr. Roscoe Segal Lymphocytes/100 WBC (Bld) 32.1 % Normal 20.5-60.0 [facility] Comment on above: Performed By: #### C BC #### [facility] [address] [place] [address] Dr. Roscoe Segal MANUAL DIFF REQ NO Normal [facility] Comment on above: Performed By: #### C BC #### [facility] [address] [place] [address] Dr. Roscoe Segal MCH (RBC) [Entitic mass] 31.9 pg Normal 26.7-34.0 [facility] Comment on above: Performed By: #### C BC #### [facility] [address] [place] [address] Dr. Roscoe Segal MCHC (RBC) [Mass/Vol] 33.1 g/dL Normal 29.9-35.2 [facility] Comment on above: Performed By: #### C BC #### [facility] [address] [place] [address] Dr. Roscoe Segal MCV (RBC) [Entitic vol] 96.3 fL Normal 81.0-99.0 [facility] Comment on above: Performed By: #### C BC #### [facility] [address] [place] [address] Dr. Roscoe Segal MONO # 0.9 103/ul Critically high 0.3-0.8 [facility] Comment on above: Performed By: #### C BC #### [facility] [address] [place] [address] Dr. Roscoe Segal Monocytes/100 WBC (Bld) 7.4 % Normal 1.7-12.0 [facility] Comment on above: Performed By: #### C BC #### [facility] [address] [place] [address] Dr. Roscoe Segal NEUT # 7.0 103/ul Critically high 1.4-6.5 [facility] Comment on above: Performed By: #### C BC #### [facility] [address] [place] [address] Dr. Roscoe Segal Neutrophils/100 WBC (Bld) 57.4 % Normal 43.0-75.0 [facility] Comment on above: Performed By: #### C BC #### [facility] [address] [place] [address] Dr. Roscoe Segal Platelet mean volume (Bld) [Entitic vol] 8.8 fL Critically low 9.5-13.5 [facility] Comment on above: Performed By: #### C BC #### [facility] [address] [place] [address] Dr. Roscoe Segal PLT 417 103/ul Normal 150-450 [facility] Comment on above: Performed By: #### C BC #### [facility] [address] [place] [address] Dr. Roscoe Segal RBC 4.89 106/ul Normal 4.20-5.40 [facility] Comment on above: Performed By: #### C BC #### [facility] [address] [place] [address] Dr. Roscoe Segal WBC 12.1 103/ul Critically high 4.0-11.0 [facility] Comment on above: Performed By: #### C BC #### [facility] [address] [place] [address] Dr. Roscoe Segal [facility]on SARS-CoV-2 (COVID-19) RNA SOILA+probe Ql (Unsp spec) Not detected Normal NOT DETECTED [facility] Comment on above: Result Comment: [...] for this test is supported by the [place] Rn of Health and Human Service's declaration that [...] used). Performed By: #### P OCGLUC #### [facility] [address] [place] [address] Dr. Roscoe Segal PROF CHEM 8 (BAS METB)on Anion gap [Moles/Vol] 13.4 mmol/L Normal [facility] Comment on above: Performed By: #### I NFLUAB #### [facility] [address] [place] [address] Dr. Roscoe Segal Calcium [Mass/Vol] 9.2 mg/dL Normal 8.5-10.1 [facility] Comment on above: Performed By: #### I NFLUAB #### [facility] [address] [place] [address] Dr. Roscoe Segal Chloride [Moles/Vol] 105 mmol/L Normal 98-107 [facility] Comment on above: Performed By: #### I NFLUAB #### [facility] [address] [place] [address] Dr. Roscoe Segal CO2 [Moles/Vol] 23.9 mmol/L Normal 21.0-32.0 [facility] Comment on above: Performed By: #### I NFLUAB #### [facility] [address] [place] [address] Dr. Roscoe Segal Creatinine [Mass/Vol] 0.93 mg/dL Normal 0.55-1.02 [facility] Comment on above: Performed By: #### I NFLUAB #### [facility] [address] [place] [address] Dr. Roscoe Segal EGFR-AF MONTENEGRIN >60 Normal >=60 [facility] Comment on above: Performed By: #### I NFLUAB #### [facility] [address] [place] [address] Dr. Roscoe Segal EGFR-NON AF MONTENEGRIN >60 Normal >=60 [facility] Comment on above: Performed By: #### I NFLUAB #### [facility] [address] [address] [address] Roscoe Segal Glucose [Mass/Vol] 141 mg/dL Critically high 74-106 [facility] Comment on above: Performed By: #### I NFLUAB #### [facility] [address] [address] [address] Roscoe Segal Potassium [Moles/Vol] 4.3 mmol/L Normal 3.5-5.1 [facility] Comment on above: Performed By: #### I NFLUAB #### [facility] [address] [place] [address] Dr. Roscoe Segal Sodium [Moles/Vol] 138 mmol/L Normal 136-145 [facility] Comment on above: Performed By: #### I NFLUAB #### [facility] [address] [place] [address] Dr. Roscoe Segal Urea nitrogen [Mass/Vol] 9.0 mg/dL Normal 7.0-18.0 [facility] Comment on above: Performed By: #### I NFLUAB #### [facility] [address] [place] [address] Dr. Roscoe Segal Urea nitrogen/Creatinine [Mass ratio] 9.7 mg/mg Normal [facility] Comment on above: Performed By: #### I NFLUAB #### [facility] [address] [place] [address] Dr. Roscoe Segal CARDIAC VICK 3-6on 2 CK [Catalytic activity/Vol] 60 U/L Normal 26-192 [facility] Comment on above: Performed By: #### P OCGLUC #### [facility] [address] [place] [address] Dr. Roscoe Segal CK.MB [Mass/Vol] 1.84 ng/mL Normal <=3.60 [facility] Comment on above: Performed By: #### P OCGLUC #### [facility] [address] [place] [address] Dr. Roscoe Segal HSTROP 8.3 pg/mL Normal 4.0-51.3 [facility] Comment on above: Result Comment: CUT- OFF POINTS HAVE BEEN ESTABLISHED BASED ON THE FOURTH UNIVERSAL DEFINITIONS OF MYOCARDIAL INFARCTION. THE UPPER REFERENCE LIMIT (URL) OF TROPONIN, DEFINED THE 99TH PERCENTILE OF cTnI DISTRIBUTION IN A REFERENCE POPULATION, HAS BEEN CONFIRMED THE DECISION THRESHOLD FOR CO DIAGNOSIS. Performed By: #### P OCGLUC #### [facility] [address] [place] [address] Dr. Roscoe Segal CK [Catalytic activity/Vol] 57 U/L Normal 26-192 [facility] Comment on above: Performed By: #### I NFLUAB #### [facility] [address] [place] [address] Dr. Roscoe Segal CK.MB [Mass/Vol] 1.82 ng/mL Normal <=3.60 [facility] Comment on above: Performed By: #### I NFLUAB #### [facility] [address] [place] [address] Dr. Roscoe Segal HSTROP 8.1 pg/mL Normal 4.0-51.3 [facility] Comment on above: Result Comment: CUT- OFF POINTS HAVE BEEN ESTABLISHED BASED ON THE FOURTH UNIVERSAL DEFINITIONS OF MYOCARDIAL INFARCTION. THE UPPER REFERENCE LIMIT (URL) OF TROPONIN, DEFINED THE 99TH PERCENTILE OF cTnI DISTRIBUTION IN A REFERENCE POPULATION, HAS BEEN CONFIRMED THE DECISION THRESHOLD FOR CO DIAGNOSIS. Performed By: #### I NFLUAB #### [facility] [address] [place] [address] Dr. Roscoe Segal CARDIAC VICK ADMITon 022 CK [Catalytic activity/Vol] 64 U/L Normal 26-192 [facility] Comment on above: Performed By: #### P OCGLUC #### [facility] [address] [place] [address] Dr. Roscoe Segal CK.MB [Mass/Vol] 2.19 ng/mL Normal <=3.60 [facility] Comment on above: Performed By: #### P OCGLUC #### [facility] [address] [place] [address] Dr. Roscoe Segal HSTROP 7.6 pg/mL Normal 4.0-51.3 [facility] Comment on above: Result Comment: CUT- OFF POINTS HAVE BEEN ESTABLISHED BASED ON THE FOURTH UNIVERSAL DEFINITIONS OF MYOCARDIAL INFARCTION. THE UPPER REFERENCE LIMIT (URL) OF TROPONIN, DEFINED THE 99TH PERCENTILE OF cTnI DISTRIBUTION IN A REFERENCE POPULATION, HAS BEEN CONFIRMED THE DECISION THRESHOLD FOR CO DIAGNOSIS. Performed By: #### P OCGLUC #### [facility] [address] [place] [address] Dr. Roscoe Segal GWEN 50 ng/mL Normal 9-82 [facility] Comment on above: Performed By: #### P OCGLUC #### [facility] [address] [place] [address] Dr. Roscoe Segal CBC AUTO DIFFon 03-03-2022 BASO # 0.1 103/ul Normal 0.0-0.1 [facility] Comment on above: Performed By: #### P OCGLUC #### [facility] [address] [place] [address] Dr. Roscoe Segal Basophils/100 WBC (Bld) 0.7 % Normal 0.2-2.0 [facility] Comment on above: Performed By: #### P OCGLUC #### [facility] [address] [place] [address] Dr. Roscoe Segal EO # 0.2 103/ul Normal 0.0-0.7 [facility] Comment on above: Performed By: #### P OCGLUC #### [facility] [address] [place] [address] Dr. Roscoe Segal Eosinophils/100 WBC (Bld) 1.3 % Normal 0.9-7.0 [facility] Comment on above: Performed By: #### P OCGLUC #### [facility] [address] [place] [address] Dr. Roscoe Segal Erythrocyte distribution width (RBC) [Ratio] 14.5 % Normal 11.0-15.0 [facility] Comment on above: Performed By: #### P OCGLUC #### [facility] [address] [place] [address] Dr. Roscoe Segal Hematocrit (Bld) [Volume fraction] 44.8 % Normal 36.0-48.0 [facility] Comment on above: Performed By: #### P OCGLUC #### [facility] [address] [place] [address] Dr. Roscoe Segal Hemoglobin (Bld) [Mass/Vol] 15.0 g/dL Normal 12.0-16.0 [facility] Comment on above: Performed By: #### P OCGLUC #### [facility] [address] [address] [address] Roscoe Segal IG # 0.07 10e3/ul Critically high 0.00-0.03 [facility] Comment on above: Performed By: #### P OCGLUC #### [facility] [address] [place] [address] Dr. Roscoe Segal IG % 0.6 % Critically high 0.0-0.[address] [facility] Comment on above: Performed By: #### P OCGLUC #### [facility] [address] [place] [address] Dr. Roscoe Segal LYMPH # 4.7 103/ul Critically high 1.2-3.[address] [facility] Comment on above: Performed By: #### P OCGLUC #### [facility] [address] [place] [address] Dr. Roscoe Segal Lymphocytes/100 WBC (Bld) 38.7 % Normal 20.5-60.0 [facility] Comment on above: Performed By: #### P OCGLUC #### [facility] [address] [place] [address] Dr. Roscoe Segal MANUAL DIFF REQ NO Normal [facility] Comment on above: Performed By: #### P OCGLUC #### [facility] [address] [place] [address] Dr. Roscoe Segal MCH (RBC) [Entitic mass] 32.1 pg Normal 26.7-34.0 [facility] Comment on above: Performed By: #### P OCGLUC #### [facility] [address] [place] [address] Dr. Roscoe Sgeal MCHC (RBC) [Mass/Vol] 33.5 g/dL Normal 29.9-35.2 [facility] Comment on above: Performed By: #### P OCGLUC #### [facility] [address] [place] [address] Dr. Roscoe Segal MCV (RBC) [Entitic vol] 95.7 fL Normal 81.0-99.0 [facility] Comment on above: Performed By: #### P OCGLUC #### [facility] [address] [place] [address] Dr. Roscoe Segla MONO # 1.0 103/ul Critically high 0.3-0.[address] [facility] Comment on above: Performed By: #### P OCGLUC #### [facility] [address] [place] [address] Dr. Roscoe Segal Monocytes/100 WBC (Bld) 7.9 % Normal 1.7-12.0 [facility] Comment on above: Performed By: #### P OCGLUC #### [facility] [address] [place] [address] Dr. Roscoe Segal NEUT # 6.2 103/ul Normal 1.4-6.5 [facility] Comment on above: Performed By: #### P OCGLUC #### [facility] [address] [place] [address] Dr. Roscoe Segal Neutrophils/100 WBC (Bld) 50.8 % Normal 43.0-75.0 [facility] Comment on above: Performed By: #### P OCGLUC #### [facility] [address] [place] [address] Dr. Roscoe Segal Platelet mean volume (Bld) [Entitic vol] 8.8 fL Critically low 9.5-13.5 [facility] Comment on above: Performed By: #### P OCGLUC #### [facility] [address] [place] [address] Dr. Roscoe Segal PLT 407 103/ul Normal 150-450 [facility] Comment on above: Performed By: #### P OCGLUC #### [facility] [address] [place] [address] Dr. Roscoe Segal RBC 4.68 106/ul Normal 4.20-5.40 [facility] Comment on above: Performed By: #### P OCGLUC #### [facility] [address] [address] [address] Roscoe Segal WBC 12.2 103/ul Critically high 4.0-11.0 [facility] Comment on above: Performed By: #### P OCGLUC #### [facility] [address] [place] [address] Dr. Roscoe Segal LACTATE/LACTIC ACIDon 2021 Lactate [Moles/Vol] 2.1 mmol/L Critically high 0.4-1.9 [facility] Comment on above: Performed By: #### P OCGLUC #### [facility] [address] [place] [address] Dr. Roscoe Segal Lactate [Moles/Vol] 2.2 mmol/L Critically high 0.4-1.9 [facility] Comment on above: Performed By: #### P OCGLUC #### [facility] [address] [place] [address] Dr. Roscoe Segal POINT OF CARE GLUCOSEon 02-13 Glucose [Mass/Vol] 109 mg/dL Critically high 74-106 [facility] Comment on above: Performed By: #### P OCGLUC #### [facility] [address] [place] [address] Dr. Roscoe Segal Glucose [Mass/Vol] 108 mg/dL Critically high 74-106 [facility] Comment on above: Performed By: #### P OCGLUC #### [facility] [address] [place] [address] Dr. Roscoe Segal Glucose [Mass/Vol] 98 mg/dL Normal 74-106 [facility] Comment on above: Performed By: #### I NFLUAB #### [facility] [address] [place] [address] Dr. Roscoe Segal Glucose [Mass/Vol] 274 mg/dL Critically high 74-106 [facility] Comment on above: Performed By: #### C BC #### [facility] [address] [place] [address] Dr. Roscoe Segal Glucose [Mass/Vol] 87 mg/dL Normal 74-106 [facility] Comment on above: Performed By: #### P OCGLUC #### [facility] [address] [address] [address] Roscoe Segal Glucose [Mass/Vol] 98 mg/dL Normal 74-106 [facility] Comment on above: Performed By: #### P OCGLUC #### [facility] [address] [address] [address] Roscoe Segal Glucose [Mass/Vol] 131 mg/dL Critically high 74-106 [facility] Comment on above: Performed By: #### P OCGLUC #### [facility] [address] [address] [address] Roscoe Segal Glucose [Mass/Vol] 59 mg/dL Critically low 74-106 [facility] Comment on above: Performed By: #### P OCGLUC #### [facility] [address] [address] [address] Roscoe Segal Glucose [Mass/Vol] 95 mg/dL Normal 74-106 [facility] Comment on above: Performed By: #### P OCGLUC #### [facility] [address] [place] [address] Dr. Roscoe Segal PROF CHEM 8 (BAS METB)on Anion gap [Moles/Vol] 15.2 mmol/L Normal [facility] Comment on above: Performed By: #### P OCGLUC #### [facility] [address] [address] [address] Roscoe Segal Calcium [Mass/Vol] 8.7 mg/dL Normal 8.5-10.1 [facility] Comment on above: Performed By: #### P OCGLUC #### [facility] [address] [place] [address] Dr. Roscoe Segal Chloride [Moles/Vol] 108 mmol/L Critically high 98-107 [facility] Comment on above: Performed By: #### P OCGLUC #### [facility] [address] [place] [address] Dr. Roscoe Segal CO2 [Moles/Vol] 20.8 mmol/L Critically low 21.0-32.0 [facility] Comment on above: Performed By: #### P OCGLUC #### [facility] [address] [address] [address] Roscoe Segal Creatinine [Mass/Vol] 1.21 mg/dL Critically high 0.55-1.02 [facility] Comment on above: Performed By: #### P OCGLUC #### [facility] [address] [address] [address] Roscoe Segal EGFR-AF MONTENEGRIN 58 mL/min/1.73m2 Critically low >=60 [facility] Comment on above: Performed By: #### P OCGLUC #### [facility] [address] [address] [address] Roscoe Segal EGFR-NON AF MONTENEGRIN 48 mL/min/1.73m2 Critically low >=60 [facility] Comment on above: Performed By: #### P OCGLUC #### [facility] [address] [address] [address] Roscoe Segal Glucose [Mass/Vol] 54 mg/dL Critically low 74-106 [facility] Comment on above: Performed By: #### P OCGLUC #### [facility] [address] [address] [address] Roscoe Segal Potassium [Moles/Vol] 3.0 mmol/L Critically low 3.5-5.1 [facility] Comment on above: Performed By: #### P OCGLUC #### [facility] [address] [address] [address] Roscoe Segal Sodium [Moles/Vol] 141 mmol/L Normal 136-145 [facility] Comment on above: Performed By: #### P OCGLUC #### [facility] [address] [address] [address] Roscoe Segal Urea nitrogen [Mass/Vol] 11.0 mg/dL Normal 7.0-18.0 [facility] Comment on above: Performed By: #### P OCGLUC #### [facility] [address] [address] [address] Roscoe Segal Urea nitrogen/Creatinine [Mass ratio] 9.1 mg/mg Normal [facility] [facility] Comment on above: Performed By: #### P OCGLUC #### [facility] [address] [address] [address] Roscoe Segal XR CHEST 1 Von [...] JUAN SAID Date: 2022-03-03 01:14 Normal [facility] CBC AUTO DIFFon 01-01-2022 BASO # 0.1 103/ul Normal 0.0-0.1 [facility] Comment on above: Performed By: #### P OCGLUC #### [facility] [address] [address] [address] Roscoe Segal Basophils/100 WBC (Bld) 0.7 % Normal 0.2-2.0 [facility] Comment on above: Performed By: #### P OCGLUC #### [facility] [address] [place] [address] Dr. Roscoe Segal EO # 0.1 103/ul Normal 0.0-0.7 [facility] Comment on above: Performed By: #### P OCGLUC #### [facility] [address] [address] [address] Roscoe Segal Eosinophils/100 WBC (Bld) 0.9 % Normal 0.9-7.0 [facility] Comment on above: Performed By: #### P OCGLUC #### [facility] [address] [place] [address] Dr. Roscoe Segal Erythrocyte distribution width (RBC) [Ratio] 14.5 % Normal 11.0-15.0 [facility] Comment on above: Performed By: #### P OCGLUC #### [facility] [address] [address] [address] Roscoe Segal Hematocrit (Bld) [Volume fraction] 41.4 % Normal 36.0-48.0 [facility] Comment on above: Performed By: #### P OCGLUC #### [facility] [address] [address] [address] Roscoe Segal Hemoglobin (Bld) [Mass/Vol] 13.4 g/dL Normal 12.0-16.0 [facility] Comment on above: Performed By: #### P OCGLUC #### [facility] [address] [address] [address] Roscoe Segal IG # 0.08 10e3/ul Critically high 0.00-0.03 [facility] Comment on above: Performed By: #### P OCGLUC #### [facility] [address] [place] [address] Dr. Roscoe Segal IG % 0.7 % Critically high 0.0-0.[address] [facility] Comment on above: Performed By: #### P OCGLUC #### [facility] [address] [place] [address] Dr. Roscoe Segal LYMPH # 2.4 103/ul Normal 1.2-3.8 [facility] Comment on above: Performed By: #### P OCGLUC #### [facility] [address] [place] [address] Dr. Roscoe Segal Lymphocytes/100 WBC (Bld) 22.0 % Normal 20.5-60.0 [facility] Comment on above: Performed By: #### P OCGLUC #### [facility] [address] [place] [address] Dr. Roscoe Segal MANUAL DIFF REQ NO Normal [facility] Comment on above: Performed By: #### P OCGLUC #### [facility] [address] [place] [address] Dr. Roscoe Segal MCH (RBC) [Entitic mass] 31.2 pg Normal 26.7-34.0 [facility] Comment on above: Performed By: #### P OCGLUC #### [facility] [address] [address] [address] Roscoe Segal MCHC (RBC) [Mass/Vol] 32.4 g/dL Normal 29.9-35.2 [facility] Comment on above: Performed By: #### P OCGLUC #### [facility] [address] [address] [address] Roscoe Segal MCV (RBC) [Entitic vol] 96.3 fL Normal 81.0-99.0 [facility] Comment on above: Performed By: #### P OCGLUC #### [facility] [address] [address] [address] Roscoe Segal MONO # 0.9 103/ul Critically high 0.3-0.8 [facility] Comment on above: Performed By: #### P OCGLUC #### [facility] [address] [place] [address] Dr. Roscoe Segal Monocytes/100 WBC (Bld) 7.7 % Normal 1.7-12.0 [facility] Comment on above: Performed By: #### P OCGLUC #### [facility] [address] [address] [address] Roscoe Segal NEUT # 7.5 103/ul Critically high 1.4-6.[address] [facility] Comment on above: Performed By: #### P OCGLUC #### [facility] [address] [address] [address] Roscoe Segal Neutrophils/100 WBC (Bld) 68.0 % Normal 43.0-75.0 [facility] Comment on above: Performed By: #### P OCGLUC #### [facility] [address] [address] [address] Roscoe Segal Platelet mean volume (Bld) [Entitic vol] 8.8 fL Critically low 9.5-13.5 [facility] Comment on above: Performed By: #### P OCGLUC #### [facility] [address] [address] [address] Roscoe Segal PLT 317 103/ul Normal 150-450 [facility] Comment on above: Performed By: #### P OCGLUC #### [facility] [address] [place] [address] Dr. Roscoe Segal RBC 4.30 106/ul Normal 4.20-5.40 [facility] Comment on above: Performed By: #### P OCGLUC #### [facility] [address] [place] [address] Dr. Roscoe Segal WBC 11.1 103/ul Critically high 4.0-11.0 [facility] Comment on above: Performed By: #### P OCGLUC #### [facility] [address] [place] [address] Dr. Roscoe Segal Covid-19 PCR (CVDTB)on 12-14 SARS-CoV-2 (COVID-19) RNA SOILA+probe Ql (Unsp spec) Not detected Normal NOT DETECTED [facility] Comment on above: Result Comment: [...] for this test is supported by the [place] of [employer] Service's declaration that [...] used). Performed By: #### P OCGLUC #### [facility] [address] [place] [address] Dr. Roscoe Segal ETHANOL (BLD ALC)on 01-02-20 22 ALC NOTE NOTE: 80 mg/dl is th e legal limit for a blood alcohol level Normal [facility] Comment on above: Performed By: #### C BC #### [facility] [address] [place] [address] Dr. Roscoe Segal Ethanol [Mass/Vol] 197 mg/dL Normal [facility] Comment on above: Performed By: #### C BC #### [facility] [address] [address] [address] Roscoe Segal PROF CHEM 8 (BAS METB)on Anion gap [Moles/Vol] 16.4 mmol/L Normal [facility] Comment on above: Performed By: #### I NFLUAB #### [facility] [address] [place] [address] Dr. Roscoe Segal Calcium [Mass/Vol] 8.2 mg/dL Critically low 8.5-10.1 [facility] Comment on above: Performed By: #### I NFLUAB #### [facility] [address] [place] [address] Dr. Roscoe Segal Chloride [Moles/Vol] 107 mmol/L Normal 98-107 [facility] Comment on above: Performed By: #### I NFLUAB #### [facility] [address] [place] [address] Dr. Roscoe Segal CO2 [Moles/Vol] 21.3 mmol/L Normal 21.0-32.0 [facility] Comment on above: Performed By: #### I NFLUAB #### [facility] [address] [place] [address] Dr. Roscoe Segal Creatinine [Mass/Vol] 0.78 mg/dL Normal 0.55-1.02 [facility] Comment on above: Performed By: #### I NFLUAB #### [facility] [address] [place] [address] Dr. Roscoe Segal EGFR-AF MONTENEGRIN >60 Normal >=60 [facility] Comment on above: Performed By: #### I NFLUAB #### [facility] [address] [place] [address] Dr. Roscoe Segal EGFR-NON AF MONTENEGRIN >60 Normal >=60 [facility] Comment on above: Performed By: #### I NFLUAB #### [facility] [address] [place] [address] Dr. Roscoe Segal Glucose [Mass/Vol] 310 mg/dL Critically high 74-106 [facility] Comment on above: Performed By: #### I NFLUAB #### [facility] [address] [address] [address] Roscoe Segal Potassium [Moles/Vol] 3.7 mmol/L Normal 3.5-5.1 [facility] Comment on above: Performed By: #### I NFLUAB #### [facility] [address] [address] [address] Roscoe Segal Sodium [Moles/Vol] 141 mmol/L Normal 136-145 [facility] Comment on above: Performed By: #### I NFLUAB #### [facility] [address] [place] [address] Dr. Roscoe Segal Urea nitrogen [Mass/Vol] 8.0 mg/dL Normal 7.0-18.0 [facility] Comment on above: Performed By: #### I NFLUAB #### [facility] [address] [place] [address] Dr. Roscoe Segal Urea nitrogen/Creatinine [Mass ratio] 10.3 mg/mg Normal [facility] Comment on above: Performed By: #### I NFLUAB #### [facility] [address] [place] [address] Dr. Roscoe Segal XR CHEST 1 Von [...] GERMAINE FARRELL Date: 2022-01-01 19:08 Normal [facility] CBC AUTO DIFFon 12-24-2021 BASO # 0.1 103/ul Normal 0.0-0.1 [facility] Comment on above: Performed By: #### I NFLUAB #### [facility] [address] [place] [address] Dr. Roscoe Segal Basophils/100 WBC (Bld) 0.9 % Normal 0.2-2.0 [facility] Comment on above: Performed By: #### I NFLUAB #### [facility] [address] [place] [address] Dr. Roscoe Segal EO # 0.2 103/ul Normal 0.0-0.7 [facility] Comment on above: Performed By: #### I NFLUAB #### [facility] [address] [place] [address] Dr. Roscoe Segal Eosinophils/100 WBC (Bld) 2.4 % Normal 0.9-7.0 [facility] Comment on above: Performed By: #### I NFLUAB #### [facility] [address] [place] [address] Dr. Roscoe Segal Erythrocyte distribution width (RBC) [Ratio] 14.8 % Normal 11.0-15.0 [facility] Comment on above: Performed By: #### I NFLUAB #### [facility] [address] [place] [address] Dr. Roscoe Segal Hematocrit (Bld) [Volume fraction] 41.1 % Normal 36.0-48.0 [facility] Comment on above: Performed By: #### I NFLUAB #### [facility] [address] [place] [address] Dr. Roscoe Segal Hemoglobin (Bld) [Mass/Vol] 13.0 g/dL Normal 12.0-16.0 [facility] Comment on above: Performed By: #### I NFLUAB #### [facility] [address] [place] [address] Dr. Roscoe Segal IG # 0.10 10e3/ul Critically high 0.00-0.03 [facility] Comment on above: Performed By: #### I NFLUAB #### [facility] [address] [place] [address] Dr. Roscoe Segal IG % 1.1 % Critically high 0.0-0.[address] [facility] Comment on above: Performed By: #### I NFLUAB #### [facility] [address] [place] [address] Dr. Roscoe Segal LYMPH # 2.0 103/ul Normal 1.2-3.8 [facility] Comment on above: Performed By: #### I NFLUAB #### [facility] [address] [place] [address] Dr. Roscoe Segal Lymphocytes/100 WBC (Bld) 21.5 % Normal 20.5-60.0 [facility] Comment on above: Performed By: #### I NFLUAB #### [facility] [address] [place] [address] Dr. Roscoe Segal MANUAL DIFF REQ NO Normal [facility] Comment on above: Performed By: #### I NFLUAB #### [facility] [address] [place] [address] Dr. Roscoe Segal MCH (RBC) [Entitic mass] 31.0 pg Normal 26.7-34.0 [facility] Comment on above: Performed By: #### I NFLUAB #### [facility] [address] [place] [address] Dr. Roscoe Segal MCHC (RBC) [Mass/Vol] 31.6 g/dL Normal 29.9-35.2 [facility] Comment on above: Performed By: #### I NFLUAB #### [facility] [address] [place] [address] Dr. Roscoe Segal MCV (RBC) [Entitic vol] 98.1 fL Normal 81.0-99.0 [facility] Comment on above: Performed By: #### I NFLUAB #### [facility] [address] [place] [address] Dr. Roscoe Segal MONO # 0.8 103/ul Normal 0.3-0.8 [facility] Comment on above: Performed By: #### I NFLUAB #### [facility] [address] [place] [address] Dr. Roscoe Segal Monocytes/100 WBC (Bld) 8.9 % Normal 1.7-12.0 [facility] Comment on above: Performed By: #### I NFLUAB #### [facility] [address] [address] [address] Roscoe Segal NEUT # 6.0 103/ul Normal 1.4-6.5 [facility] Comment on above: Performed By: #### I NFLUAB #### [facility] [address] [address] [address] Roscoe Segal Neutrophils/100 WBC (Bld) 65.2 % Normal 43.0-75.0 [facility] Comment on above: Performed By: #### I NFLUAB #### [facility] [address] [place] [address] Dr. Roscoe Segal Platelet mean volume (Bld) [Entitic vol] 9.4 fL Critically low 9.5-13.5 [facility] Comment on above: Performed By: #### I NFLUAB #### [facility] [address] [place] [address] Dr. Roscoe Segal PLT 332 103/ul Normal 150-450 [facility] Comment on above: Performed By: #### I NFLUAB #### [facility] [address] [place] [address] Dr. Roscoe Segal RBC 4.19 106/ul Critically low 4.20-5.[address] [facility] Comment on above: Performed By: #### I NFLUAB #### [facility] [address] [address] [address] Roscoe Segal WBC 9.2 103/ul Normal 4.0-11.0 [facility] Comment on above: Performed By: #### I NFLUAB #### [facility] [address] [place] [address] Dr. Roscoe Segal GLYCOHEMOGLOBIN A1Con 2021 ADA RECOMMENDATION SEE BELOW Normal [facility] Comment on above: Result Comment: ADA RECOMMENDED LIMIT 4.0 - 6.0 ADA THERAPEUTIC TARGET < 7.0 ACTION SUGGESTED > 7.0 Performed By: #### C BC #### [facility] [address] [place], [place] [address] Dr. Roscoe Segal Glucose [Mass/Vol] 217 mg/dL Normal [facility] Comment on above: Performed By: #### C BC #### [facility] [address] [id number] Roscoe Segal HbA1c (Bld) [Mass fraction] 9.2 % Critically high 4.5-6.2 [facility] Comment on above: Performed By: #### C BC #### [facility] [address] [address] [address] Roscoe Segal LIPID PROFILEon 12-24-2021 CHOL-HDL RATIO NORM SEE BELOW [facility] Comment on above: Result Comment: 3.3 - 4.4 LOW RISK 4.4 - 7.1 AVERAGE RISK 7.1 - 11.0 MODERATE RISK >11.0 HIGH RISK Performed By: #### C BC #### [facility] [address] [place] [address] Dr. Roscoe Segal Cholesterol [Mass/Vol] 191 mg/dL Normal <=200 [facility] Comment on above: Performed By: #### C BC #### [facility] [address] [place] [address] Dr. Roscoe Segal Cholesterol in HDL [Mass/Vol] 52 mg/dL Normal 40-60 [facility] Comment on above: Performed By: #### C BC #### [facility] [address] [address] [address] Roscoe Segal Cholesterol in LDL [Mass/Vol] 95.6 mg/dL Normal [facility] Comment on above: Performed By: #### C BC #### [facility] [address] [address] [address] Roscoe Segal Cholesterol.total/Chol esterol in HDL [Mass ratio] 3.7 {ratio} Normal [facility] Comment on above: Performed By: #### C BC #### [facility] [address] [place] [address] Dr. Roscoe Segal HDL NORMAL > or = 60 mg/dl - LO W CARDIOVASCULAR RISK <40 mg/dl - HIGH CARDIOVASCULAR RISK Normal [facility] Comment on above: Performed By: #### C BC #### [facility] [address] [address] [address] Roscoe Segal LDL CALC NORMAL SEE BELOW Normal [facility] Comment on above: Result Comment: <100 mg/dl OPTIMAL 100 - 129 mg/dl NEAR OR ABOVE OPTIMAL 130 - 159 mg/dl BORDERLINE HIGH 160 - 189 mg/dl HIGH >190 mg/dl VERY HIGH Performed By: #### C BC #### [facility] [address] [place] [address] Dr. Roscoe Segal Triglyceride [Mass/Vol] 217 mg/dL Critically high <=150 [facility] Comment on above: Performed By: #### C BC #### [facility] [address] [place] [address] Dr. Roscoe Segal VLDL CALC 43.4 mg/dL Normal [facility] Comment on above: Performed By: #### C BC #### [facility] [address] [place] [address] Dr. Roscoe Segal MICROALBUMIN, RAND URon 12-14 mALB <1.3 Normal <=30.0 [facility] Comment on above: Performed By: #### P OCGLUC #### [facility] [address] [place] [address] Dr. Roscoe Segal PROF 14(COMP METB)on 022 Albumin [Mass/Vol] 3.0 g/dL Critically low 3.4-5.0 [facility] Comment on above: Performed By: #### C BC #### [facility] [address] [place] [address] Dr. Roscoe Segal Albumin/Globulin [Mass ratio] 0.9 {ratio} Normal [facility] Comment on above: Performed By: #### C BC #### [facility] [address] [place] [address] Dr. Roscoe Segal ALP [Catalytic activity/Vol] 72 U/L Normal 46-116 [facility] Comment on above: Performed By: #### C BC #### [facility] [address] [place] [address] Dr. Roscoe Segal ALT [Catalytic activity/Vol] 17 U/L Normal 14-59 [facility] Comment on above: Performed By: #### C BC #### [facility] [address] [address] [address] Roscoe Segal Anion gap [Moles/Vol] 12.3 mmol/L Normal Th [facility] Comment on above: Performed By: #### C BC #### [facility] [address] [address] [address] Roscoe Segal AST [Catalytic activity/Vol] 15 U/L Normal 15-37 [facility] Comment on above: Performed By: #### C BC #### [facility] [address] [place] [address] Dr. Roscoe Segal Bilirubin [Mass/Vol] 0.1 mg/dL Critically low 0.2-1.0 [facility] Comment on above: Performed By: #### C BC #### [facility] [address] [place] [address] Dr. Roscoe Segal Calcium [Mass/Vol] 8.9 mg/dL Normal 8.5-10.1 [facility] Comment on above: Performed By: #### C BC #### [facility] [address] [place] [address] Dr. Roscoe Segal Chloride [Moles/Vol] 102 mmol/L Normal 98-107 [facility] Comment on above: Performed By: #### C BC #### [facility] [address] [address] [address] Roscoe Segal CO2 [Moles/Vol] 24.0 mmol/L Normal 21.0-32.0 [facility] Comment on above: Performed By: #### C BC #### [facility] [address] [place] [address] Dr. Roscoe Segal Creatinine [Mass/Vol] 0.91 mg/dL Normal 0.55-1.02 [facility] Comment on above: Performed By: #### C BC #### [facility] [address] [place] [address] Dr. Roscoe Segal EGFR-AF MONTENEGRIN >60 Normal >=60 [facility] Comment on above: Performed By: #### C BC #### [facility] [address] [address] [address] Roscoe Segal EGFR-NON AF MONTENEGRIN >60 Normal >=60 [facility] Comment on above: Performed By: #### C BC #### [facility] [address] [address] [address] Roscoe Segal Globulin (S) [Mass/Vol] 3.4 g/dL Normal [facility] Comment on above: Performed By: #### C BC #### [facility] [address] [address] [address] Roscoe Segal Glucose [Mass/Vol] 309 mg/dL Critically high 74-106 [facility] Comment on above: Performed By: #### C BC ####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 (Auto) Lymph # (Auto) [place] # (Auto) Eos # (Auto) Baso # [...] MPV Neut % (Auto) Lymph % (Auto) [place] % (Auto) Eos % (Auto) Baso % (Auto) Nucleat RBC Rel Count Neut # (Auto) Lymph # (Auto) [place] # (Auto) Eos # (Auto) Baso # [...] % (Auto) 73.7 Lymph % (Auto) 13.5 [place] % (Auto) 9.2 Eos % (Auto) 2.9 Baso % (Auto) 0.7 Nucleat RBC Rel Count 0.1 Neut # (Auto) 7.2 Lymph # (Auto) 1.3 [place] # (Auto) 0.9 H Eos # (Auto) [...] MPV Neut % (Auto) Lymph % (Auto) [place] % (Auto) Eos % (Auto) Baso % (Auto) Nucleat RBC Rel Count Neut # (Auto) Lymph # (Auto) [place] # (Auto) Eos # (Auto) Baso # [...] signed by Valeriano Horta MD> 03/12/23 0908 [facility] Work Phone: [phone]) 595-610107-28-2023 Progress note Author Eron Wood [facility] March 12, 2023 9:03am Note Date/Time March 12, 2023 9:03 am [facility] [address] [place] [address] Hospitalist Progress Note Signed Patient: Christiane Perez MR#: [id number] : 1975 Acct:[id number] Age/Sex: 48 / F Adm Date: 3 Loc: 3T Room: [address] [place] [address] Type: ADM IN Attending Dr: Eron Wood [...] Insuln.Pen SUBCUT 03/09/24 16:59 Not Given TID.[facility] Protocol Insulin Glargine 10 units 03/12/23 [...] Appreciate pulmonary and thoracic surgery. Continue morphine, Thedford as needed for pain. (2) Pneumonia: Plan: [...] signed by Eron Wood MD> 03/12/23 0903 [facility] Work Phone: 1([phone]) 294-498807-27-2023 [facility] Consult note Author Errol Nicole [facility] March 11, 2023 12:00pm Note Date/Time March 11, 2023 12:0 0pm [facility] [address] [place] [address] Pulmonology Consult Note Signed Patient: Christiane Perez MR#: [id number] : 1975 Acct:[id number] Age/Sex: 48 / F Adm Date: 3 Loc: Room: [address] [place] [address] Type: ADM IN Attending Dr: Eron Wood [...] x- ray, then a CT, done at [place] and was told that she had an abscess in the left lung . She refused to be admitted, went home on Levaquin and clindamycin, followed up with her primary care physician who advised her to come back and be admitted here at [facility]. Patient has a large dense consolidated [...] mcg-glycopyr 9 mcg-formot 4.8 mcg/actuation HFA inhaler ([employer] Airztri Hypercontextphere) 1 puff inhalation DAILY 03/10/23 [History Confirmed [...] signed by Errol Nicole MD> 03/11/23 1200 [facility] Work Phone: 1(603) 357-575207-27-2023 Progress note Author Eron Wood [facility] March 11, 2023 10:50am Note Date/Time March 11, 2023 10:4 9am [facility] [address] [place] [address] Hospitalist Progress Note Signed Patient: Christiane Perez MR#: [id number] : 1975 Acct:[id number] Age/Sex: 48 / F Adm Date: 3 Loc: Room: [address] [place] [address] Type: ADM IN Attending Dr: Eron Wood [...] 1,000 Ml IV 03/09/24 16:44 75 mls/hr .[id number] ROGELIO Administration Magnesium Sulfate 2 gm in [...] Insuln.Pen SUBCUT 03/09/24 16:59 Not Given TID.[facility] Protocol Insulin Glargine 20 units 03/10/23 21:00 [...] and thoracic surgery. Sendsputum culture. Continue morphine, Thedford as needed for pain. Stop IV fluid [...] signed by Eron Wood MD> 03/11/23 1050 [facility] Work Phone: [phone]) 835-896907-26-2023 History and physical note Author Eron Wood [facility] March 10, 2023 4:48pm Note Date/Time March 10, 2023 4:49 pm [facility] [address] [place] [address] Hospitalist H&P Signed Patient: Christiane Perez MR#: [id number] : 1975 Acct:[id number] Age/Sex: 48 / F Adm Date: 3 Loc: Room: [address] [place] [address] Type: ADM IN Attending Dr: Eron Wood [...] negative unless noted below or in HPI [facility] Medical History (Updated 03/10/23 @ 16:46 [...] 9 mcg-formot 4.8 mcg/actuation HFA inhaler (Breztri Hypercontextphere) 1 puff inhalation DAILY 03/10/23 [History Confirmed [...] % (Auto) 5.7 % (.) 03/10/23 12:55 [place] % (Auto) 7.2 % (.) 03/10/23 12:55 Eos % (Auto) 1.1 % (.) 03/10/23 12:55 Baso % (Auto) 0.2 % (.) 03/10/23 12:55 Nucleat RBC Rel Count 0.1 /100 WBC (0-0.5) 03/10/23 12:55 Neut # (Auto) 14.2 x10E3/uL (1.8-7.7) H 03/10/23 12:55 Lymph # (Auto) 1.0 x10E3/uL (1.00-4.8) 03/10/23 12:55 [place] # (Auto) 1.2 x10E3/uL (0.0-0.8) H 03/10/23 [...] stay (# of days): 3 Documented By: Eorn Wood MD 03/10/23 1639 Signed By: <Electronically signed by Eron Wood MD> 03/10/23 6883 [facility] Work Phone: 1(197) 275-268007-26-2023 Consult note Author Valeriano Horta [facility] March 10, 2023 3:27pm Note Date/Time March 10, 2023 3:27 pm [facility] [address] [place] [address] Cardiothoracic Consult Note Signed Patient: Christiane Perez MR#: [id number] : 1975 Acct:[id number] Age/Sex: 48 / F Adm Date: 3 Loc: ER Room: Type: [facility] ER Attending Dr: Copies to: DO Valeriano Morris MD Shaikh Fawwad, MD~ HPI Consult Date: 03/10/23 Primary Care Provider: Shaikh Anthony MD Consult Narrative Reason for consult: lung abscess HPI: Ms. Perez is a 48 year old female with persistent SOB. CT read as lung abscess with elevated WBC. Pt agreed with admission. Chart and CT reviewed. [facility] Medical History (Updated 03/10/23 @ 15:26 [...] signed by Valeriano Horta MD> 03/10/23 1527 [facility] Work Phone: [phone]) 768-821607-02-2023 Evaluation note* Encounter Date Diagnosis Assessment Notes [...] evaluation for possible sequelae into bronchitis/pneumoni a. [employer] Other 08-26-2022 NotePROCEDURE: XR HIP RT 2 3V WO PELVIS HISTORY: Pain in right hip joint , chronic COMPARISON: None. FINDINGS: BONES:No fracture, acute abnormality, or significant arthropathy. SOFT TISSUES:No visible soft tissue swelling. EFFUSION:None visible. OTHER: Negative. IMPRESSION: 1. Normal examination. Electronically authenticated by: GERMAINE FARRELL Date: 2022-04-10 08:14[facility] Author Krunal Kelly [facility] March 17, 2023 1:24pm Note Date/Time March 14, 2023 1:54 pm [facility] [address] [place] [address] Discharge Summary Signed Patient: Christiane Perez MR#: [id number] : 1975 Acct:[id number] Age/Sex: 48 / F Adm Date: 3 Loc: Room: [address] [place] [address]: Krunal Kelly DO Copies to: [...] % (Auto) 71.0, Lymph % (Auto) 16.8, [place] % (Auto) 7.1, Eos % (Auto) 4.4, Baso % (Auto) 0.7, Nucleat RBC Rel Count 0.1, Neut # (Auto) 6.8, Lymph # (Auto) 1.6, [place] # (Auto) 0.7, Eos # (Auto) 0.4, [...] signed by Krunal Kelly, DO> 03/17/23 1324 [facility] Work Phone: Evaluation noteNo Assessments Information Available [facility] noteNo assessment information available [facility]trEvaluation noteNo InformationNort Design [employer] Other Evaluation note* Diagnosis Onset Date Resolution Status Abscess of left lung with pneumonia acute Abscess of lung acute COPD (chronic obstructive pulmonary disease) acute Diabetes mellitus, type 2 ac dimple Lung mass acute Pneumonia acute Tobacco abuse acute [facility] Work Phone: Evaluqeilh note* Diagnosis Hoarse- Primary Dysphonia Chronic laryngitis [...] parital hysterectomy 2009 Hospitalization History see above [employer] Other Hisnjvk general Narrative - Reported* Type Description Date Medical History DIABETIC Medical History BI POLAR Medical History NEUROPATHY IN LEGS Medical History COPD Medical History GENITAL HERPES Medical History high cholesterol Medical History high blood pressure Surgical History Cholecystectomy Surgical History tonsillectomy Surgical History breast reduction 1996 Surgical History parital hysterectomy 2009 Hospitalization History [facility] [place] Abcess 03/2023 Hospitalization History aspiration pneumonia 201 5 [employer] Other Hisdctd general Narrative - Reported* Type Description Date Medical History DIABETIC Medical History BI POLAR Medical History NEUROPATHY IN LEGS Medical History COPD Medical History GENITAL HERPES Medical History high cholesterol Medical History high blood pressure Medical History [facility] lung abcess 02[facility]2023 [place] [facility] [place] Surgical History Cholecystectomy Surgical History tonsillectomy Surgical History breast reduction 1996 Surgical History parital hysterectomy 2009 Hospitalization History [facility] [place] Lung Abcess 03/2023 Hospitalization History aspiration pneumonia 201 5 [employer] Other Hospital Discharge instructions Additional Instructions Continue home oxygen per chronic orders.[facility] Work Phone: Hospital Discharge instructions Additional Instructions Steroids daily Use albuterol inhaler as instructed Push fluids Rest Follow with your PCP Avoid smoking Return here if any problems persist worseOhio[facility] Work Phone: Advance Directives No Advanced [...] Provider Naomi Bernard [address]erred Address [address] [place], [place],[address] Referred Provider Specialty Ear, Nose an d [...] DATE CREATED AUTHOR AUTHOR'S ORGANIZ ATION 02/19/2023 [facility] DATE CREATED AUTHOR AUTHOR'S ORGANIZ ATION 03/24/2023 [facility] DATE CREATED AUTHOR AUTHOR'S ORGANIZ ATION 10/02/2023 [facility] DATE CREATED AUTHOR AUTHOR'S ORGANIZ ATION 10/21/2023 [facility] DATE CREATED AUTHOR AUTHOR'S ORGANIZ ATION 01/12/2024 [facility] EPIC REASON FOR VISIT (unrecogniz [...] Active Errol Nicole MD Attending Provider Active [employer] Relationship Specialty Start Date End Date Shaikh Cruz MD PCP - General Internal Medicine 02/24/23 [employer] Relationship Specialty Start Date End Date Shaikh Cruz MD [address] [place] [address] PCP - General Internal Medicine 09/29/23 [employer] Relationship Specialty Start Date End Date Shaikh Cruz MD [address] [place] [address] PCP - General Internal Medicine 09/29/23 [...] BE BASED ON THE PRIMARY CLINICAL RECORDS. [employer] [facility]. provides no warranty or guarantee of the accuracy or completeness of information in this document.
--- NOTE | 2024-01-18 04:10 | RESP.RT ---
decreased Fi02 from 40% down to 35%
[2024-01-18] MEDS: 0.9 % SODIUM CHLORIDE 1,000 ML 100 ML IV ×2 (05:35→17:16)
[2024-01-18] MEDS: GABAPENTIN 400 MG CAPSULE 800 MG PO (05:35)
[2024-01-18] MEDS: FAMOTIDINE/PF 20 MG/2 ML VIAL IV (05:36)
[2024-01-18] MEDS: IBUPROFEN 400 MG TABLET 800 MG PO ×2 (05:36→13:48)
--- NOTE | 2024-01-18 06:24 | CT_ITS ---
[address] [address] Patient Name: DIAN RAY MRN: [id number] date: 1975 Sex: F Assigned Patient Location: ICU Current Patient Location: ICU Accession/Order Number: [id number] Exam Date: 01/18/2024 11:31 Report Date: 01/18/2024 15:15 At the request of: SHAIKH AMINA Procedure: CT chest wo con EXAM: CT chest wo con HISTORY: sob/pneumonia COMPARISON: 01/18/2024 and 03/07/2023 TECHNIQUE: Axial CT imaging was performed through the chest without intravenous contrast. Multiplanar reformats were performed. Dose reduction techniques were achieved by using automated exposure control and/or adjustment of mA and/or kV according to patient size and/or use of iterative reconstruction technique. FINDINGS: Lungs: No pneumothorax or effusion. There are bilateral tree-in-bud opacities, representing acute bronchiolitis or bronchopneumonia. There is bilateral perihilar peribronchial thickening. Airways: Normal. Mediastinum: No adenopathy. Aorta: No aneurysm. Cardiac: Normal size. No pericardial effusion. Coronary Arteries: Coronary calcifications are absent. Pulmonary vasculature: Normal morphology. Bones: No acute bony abnormality. Axilla: No adenopathy. Thyroid gland: No abnormality demonstrated on provided imaging. Soft tissues: Unremarkable. Upper abdomen: Unremarkable. Other findings: None. CT/CT chest wo con IMPRESSION: bilateral tree-in-bud opacities, representing acute bronchiolitis or bronchopneumonia. Electronically authenticated by: HARDIK TOTH Date: 01/18/2024 15:15
--- OUTSIDE RECORDS SUMMARY | 2024-01-18 06:41 | XMS_ITS | CCD ---
Author Organization [facility] Inform ion [facility] Care Team Providers Care Electronics Instructor Name Role Phone Walker Alba Attending Provider Audi Hdez Primary Care Provider PROVIDER, UNKNOWN [...] LIVIA, DR VICK Adams Admitting Unavailable AMILCAR ASNDERS Admitting Unavailable AMILCAR SANDERS Attending Unavailable BUD, [...] ZIEBER, DR GERMAINE Adams Consulting Unavailable AMILCAR ASNDERS Admitting Unavailable AMILCAR SANDERS Consulting Unavailable LIVIA, DR VICK Adams Consulting Unavailable LIVIA, DR VICK Adams Attending Unavailable LIVIA, DR VICK Adams Admitting Unavailable FAWWAD, STEPHENS H Primary Care Unavailable FAWWAD, STEPHENS H Primary Care Unavailable PAY ., DR ZAPATA Attending Unavailable EDGERTON, DR SHAJI Osborn Consulting Unavailable PAY ., [...] Provider DO Krunal Kelly Attending Provider [phone] MD Valeriano Horta Attending Provider ValladaresCourtney Unavailable MD Anthony [facility] Primary Care Provider MD Valeriano Horta Attending Provider [phone] FAVIO Villeda Emergency Provider [phone] MD Anthony [facility] Primary Care Provider MD Yasmin Leung Emergency Provider SHANTI Marcum Emergency Provider MD Errol Nicole Attending Provider Bambi Delgado Unavailable Anthony MASTERS, [facility] Primary Care Provider [phone] [facility] MARVIN SHERWOOD Attending Unavailable PAVAUDI DISLA L Referring Unavailable PAVNIGHAT, AUDI L Primary Care Unavailable Marilee Marcum Admitting Unavailable Marilee Marcum Attending Unavailable [facility] Primary Care Unavailable Chaban, Kamal Admitting Unavailable Patel Nicoleal Attending Unavailable [facility] Primary Care Unavailable Valeriano Horta Admitting Unavailable Valeriano Horta Attending Unavailable [facility] Care Unavailable Krunal Klely Attending Unavailabl e Eron Wood Admitting Unavailable Chaban, Kamal Consulting Unavailable [facility] Primary Care Unavailable Valeriano Horta Consulting [facility] Unavailable Elio Villeda Admitting Unavailable [...] Agonists (4 sources) SUMAtriptan Drug Allergy 1 [facility] (1 source) Plasmin Drug Allergy 6 [facility] Repository (16 sources) SUMAtriptan Drug Allergy 3 shortness of breath, Anxiety [facility] (1 source) SUMAtriptan; Translations: [SUMATRIPTAN SUCCINATE] Drug Allergy 0 [facility] Repository (1 source) SUMAtriptan Drug Allergy 4 [facility] Repository Medications Current Medications Medication Drug Class(es) Dates Sig (Normalized) Sig (Original) [id number] 200 actuat albuterol 0.09 mg/actuat metered dose [...] Twice a day Active Continuous Blood Gluc Compatibility Test Engineer (FreeStyle Magali 14 Day [place]) device (4 sources) Continuous Blood Gluc Compatibility Test Engineer (FreeStyle Magali 14 Day [place]) device 4 (four) times a day as [...] 1.5 mg/ml oral solution (4 sources) Uncompetitive D-uxsabj-O-aspartate Receptor Antagonist, Sigma-1 Agonist Start: 2022 take 10 mL by mouth every eight hours [place] DM 7.5-7.5 MG/5ML 10 mL Orally every [...] polyneuropathy, with long-term current use of insulin ([facility]) TAKE 1 TABLET BY MOUTH THREE TIMES [...] 2023 5:04pm take 1 capsule by mo [facility] every eight hours Gabapentin [...] polyneuropathy, with long-term current use of insulin ([facility]) Inject 20 Units under the skin in [...] tablet Orally Once a day Active nystatin 181516 unt/ml oral suspension (2 sources) Polyene Antifungal Start : 09-29 End: 10-09 nystatin (Mycostatin) 657026 UNIT/ML suspension Indications: Thrush Take 5 mL [...] 2.5 ug by inhalation twice daily Tiotropium [place] (Spiriva Respimat) 2.5 mcg/actuation mist Discontinued 1 [...] stomatitis] 09-29-2023 Episodic Other aftercare (1 source) residential (current) use of insulin; Translations: [LONGTERM CURRENT USE OF INSULIN] Onset: 09-15-2022 Episodic Other aftercare (1 source) Other terminal gauger (current) drug therapy; Translations: [OTH LONGTERM CURRENT DRUG THERAPY] Onset: 09-15-2022 Episodic Other [...] wo conon 08-30-2023 CT chest wo con [facility] [place] [address] [place] [address] CT Scan Report Signed Patient: Christiane Perez MR#: [id number] 2 : 1975 Acct:[id number] Age/Sex: 48 / F ADM Date: 08/30/23 Loc: CT Room: Type: [facility] Attending Dr: Errol Nicole MD Copies to: Errol Nicole MD Ordering Provider: Errol Nicloe MD Date of Service: 08/30/23 CT/CT chest [...] Johnson Jr., D.O.08/30/2023 3:21 PM Dictation Location: [place] [address] Transcribed By: [facility] 08/30/23 1521 Dictated By: Rodger Johnson Jr, DO 08/30/23 1517 Signed By: 08/30/23 1521 Normal [facility] Activated partial thrombopla stin time (aPTT) in platelet poor plasma by coagulation aOrdered By: Marilee Marcum on 08-06-2023 aPTT Coag (PPP) [Time] 32.3 s 25.1-36.5 [facility] Comment on above: A hematocrit value g reater than 55% may lead to inaccurate results in coagulation testing. Patients having hematocrit values >55% require a special collection tube for coagulation studies. Please contact the laboratory at [phone] for redraw instructions. B-Type Natriuretic Peptideon 08-06-2023 Natriuretic peptide B (Bld) [Mass/Vol] 29.0 pg/mL Normal 5-100 [facility] Comment on above: Result Comment: PERF ORMED BY: [place] [address] PATHOLOGIST [employer] HEAD WAYNE WAKEFIELD M.D. Performed By: #### V ANCT #### [facility] [address] [place] [address] Basic Metabolic Panelon 07-17 Anion gap [Moles/Vol] 9.8 mmol/L Normal 6.0-15.0 [facility] Comment on above: Performed By: #### V ANCT #### [facility] [address] [place] [address] [place] Calcium [Mass/Vol] 8.6 mg/dL Normal 8.6-10.3 [facility] Comment on above: Performed By: #### V ANCT #### [facility] [address] [place] [id number] [place] Chloride [Moles/Vol] 106 mmol/L Normal 98-107 [facility] Comment on above: Performed By: #### V ANCT #### [facility] [address] [place] [address] [place] CO2 [Moles/Vol] 24.9 mmol/L Normal 21.0-31.0 [facility] Comment on above: Performed By: #### V ANCT #### [facility] [address] Creatinine [Mass/Vol] 0.72 mg/dL Normal 0.60-1.20 [facility] Comment on above: Performed By: #### V ANCT #### [facility] [address] [place] [address] [place] Creatinine Clr Calc Pharmacy 116.58 Normal [facility] Comment on above: Result Comment: PERF ORMED BY: [place] [address] PATHOLOGIST [employer] DE[employer] HEAD WAYNE WAKEFIELD M.D. Performed By: #### V ANCT #### [place] [address] [place] GFR/1.73 sq M.predicted MDRD (S/P/Bld) [Vol rate/Area] mL/min/{1.73_m2} Normal [facility] Comment on above: Performed By: #### V ANCT #### [address] Glucose [Mass/Vol] 99 mg/dL Normal 70-100 [facility] Comment on above: Result Comment: [place] Glucose Reference Range is dependent on time and content of last meal. Glucose of more than 200 mg/dL in a nonstressed, ambulatory subject supports the diagnosis of Diabetes Mellitus. ADA recommended reference range Performed By: #### V ANCT #### [facility] [address] [place] [address] [place] Potassium [Moles/Vol] 3.7 mmol/L Normal 3.5-5.1 [facility] Comment on above: Performed By: #### V ANCT #### [place] [address] [place] Sodium [Moles/Vol] 137 mmol/L Normal 136-145 [facility] Comment on above: Performed By: #### V ANCT #### [facility] [address] Urea nitrogen [Mass/Vol] 8 mg/dL Normal 7-25 [facility] Comment on above: Performed By: #### V ANCT #### [facility] [address] Basophils Auto (Bld) [#/Vol] Ordered By: Marilee Marcum on 08-06-2023 Basophils (Bld) [#/Vol] 0.1 10*3/uL 0.0-0.2 [facility] Basophils/100 WBC Auto (Bld) Ordered By: Marilee Marcum on 08-06-2023 Basophils/100 WBC (Bld) 0.5 % . [facility] COVID CepheidOrdered By: Marielos Marcum on 08-06-2023 SARS-CoV-2 (COVID-19) Ab IA Ql Negative Negative [facility] Comment on above: This is a duplicate Cepheid Xpert Xpress CoV-2/Flu/RSV Plus RNA by RT-PCR result to be used for statistical tracking purpose only. SARS-CoV-2 (COVID-19) RNA SOILA+probe Ql (Unsp spec) [facility] COVID-19 / Flu A/B / RSV [...] or Cepheid Disclaimer revoked sooner. PERFORMED BY: [place] [address] PATHOLOGIST [employer] HEAD WAYNE WAKEFIELD M.D. [facility] Comment on above: Performed By: #### V ANCT #### [address] Calcium [Mass/volume] in Ser um or PlasmaOrdered By: Marilee Marcum on 08-06-2023 Calcium [Mass/Vol] 8.6 mg/dL 8.6-10.3 [facility] Carbon dioxide, total [Moles /volume] in Serum or PlasmaOrdered By: Marilee Marcum on 08-06-2023 CO2 [Moles/Vol] 24.9 mmol/L 21.0-31.0 [facility] Cepheid COVID PCR Negativeon 08-06-2023 SARS-CoV-2 (COVID-19) RNA SOILA+probe Ql (Unsp spec) Negative Normal Negative [facility] Comment on above: Result Comment: This is a duplicate CepRealDirectid Xpert Xpress CoV-2/Flu/RSV Plus RNA by RT-PCR result to be used for statistical tracking purpose only. PERFORMED BY: [place] [address] PATHOLOGIST [employer] HEAD WAYNE WAKEFIELD M.D. Performed By: #### V ANCT #### [address] Chloride [Moles/volume] in S kaitlin or PlasmaOrdered By: Marilee Marcum on 08-06-2023 Chloride [Moles/Vol] 106 mmol/L 98-107 [facility] Complete Blood Count Auto Di ffon 08-06-2023 Basophils (Bld) [#/Vol] 0.1 10*3/uL Normal 0.0-0.2 [facility] Comment on above: Result Comment: PERF ORMED BY: [place] [address] PATHOLOGIST [employer] HEAD WAYNE WAKEFIELD M.D. Performed By: #### V ANCT #### [place] [address] [place] Basophils/100 WBC (Bld) 0.5 % Normal . [facility] Comment on above: Performed By: #### V ANCT #### [place] [address] [place] Eosinophils (Bld) [#/Vol] 0.1 10*3/uL Normal 0.0-0.45 [facility] Comment on above: Performed By: #### V ANCT #### [place] [address] [place] Eosinophils/100 WBC (Bld) 1.0 % Normal . [facility] Comment on above: Performed By: #### V ANCT #### [address] Erythrocyte distribution width (RBC) [Ratio] 16.7 % High 11.9-15.3 [facility] Comment on above: Performed By: #### V ANCT #### [address] Hematocrit (Bld) [Volume fraction] 45.8 % Normal 34.0-46.4 [facility] Comment on above: Performed By: #### V ANCT #### [address] Hemoglobin (Bld) [Mass/Vol] 15.4 g/dL Normal 11.8-15.4 [facility] Comment on above: Performed By: #### V ANCT #### [address] Lymphocytes (Bld) [#/Vol] 1.4 10*3/uL Normal 1.00-4.8 [facility] Comment on above: Performed By: #### V ANCT #### [address] Lymphocytes/100 WBC (Bld) 12.5 % Normal . [facility] Comment on above: Performed By: #### V ANCT #### [address] MCH (RBC) [Entitic mass] 32.9 pg Normal 24.7-34.3 [facility] Comment on above: Performed By: #### V ANCT #### [address] MCV (RBC) [Entitic vol] 97.6 fL Normal 80-100 [facility] Comment on above: Performed By: #### V ANCT #### [address] Mean Corpuscular HGB Conc 33.7 g/dL Normal 32.0-35.0 [facility] Comment on above: Performed By: #### V ANCT #### [address] Monocytes (Bld) [#/Vol] 0.8 10*3/uL Normal 0.0-0.8 [facility] Comment on above: Performed By: #### V ANCT #### [facility] [address] [place] [address] [place] Monocytes/100 WBC (Bld) 23.24 % High 0.00-20.00 [facility] Comment on above: Result Comment: For adults in ED, MDW > 20.0 may be associated with a higher risk of sepsis during the first 12 hrs of hospital admission Performed By: #### V ANCT #### [facility] [address] [place] [address] Monocytes/100 WBC (Bld) 7.7 % Normal . [facility] Comment on above: Performed By: #### V ANCT #### [address] Neutrophils (Bld) [#/Vol] 8.5 10*3/uL High 1.8-7.7 [facility] Comment on above: Performed By: #### V ANCT #### [place] [address] [place] Neutrophils/100 WBC (Bld) 78.3 % Normal . [facility] Comment on above: Performed By: #### V ANCT #### [place] [address] [place] NRBC% 0.1 /100{WBC} Normal 0-0.5 [facility] Comment on above: Performed By: #### V ANCT #### [place] [address] [place] Platelet mean volume (Bld) [Entitic vol] 7.3 fL Normal 6.3-10.7 [facility] Comment on above: Performed By: #### V ANCT #### [facility] [address] [place] [address] [place] Platelets (Bld) [#/Vol] 237 10*3/uL Normal 150-450 [facility] Comment on above: Performed By: #### V ANCT #### [facility] [address] [place] [address] [place] RBC (Bld) [#/Vol] 4.70 10*6/uL Normal 3.60-5.00 [facility] Comment on above: Performed By: #### V ANCT #### [facility] [address] [place] [address] [place] WBC (Bld) [#/Vol] 10.8 10*3/uL Normal 3.8-11.6 [facility] Comment on above: Performed By: #### V ANCT #### [facility] [address] Creatinine [Mass/volume] in Serum or PlasmaOrdered By: Marilee Marcum on 08-06-2023 Creatinine [Mass/Vol] 0.72 mg/dL 0.60-1.20 [facility] ECG 12 lead ECGon 08-06-2023 ECG 12 lead ECG [facility] [place] [address] [place] [address] Electrocardiograph Report Signed Patient: Christiane Perez MR#: [id number] 2 : 1975 Acct:[id number] Age/Sex: 48 / F ADM Date: 08/06/23 Loc: ER Room: Type: [facility] ER Attending Dr: Ordering Provider: Marilee Marcum [...] change was found Confirmed by CHAI [facility] Graff ([id number]) on 08/08/2023 11:46:24 AM Referred By: Electronically Signed By:ROBIN ZUNIGA MD, FACC Transcribed By: MUS Signed By Mario Zuniga MD 08/08/23 1146 Normal [facility] Eosinophils Auto (Bld) [#/Vo l]Ordered By: Marilee Marcum on 08-06-2023 Eosinophils (Bld) [#/Vol] 0.1 10*3/uL 0.0-0.45 [facility] Eosinophils/100 WBC Auto (Bl d)Ordered By: Marilee Marcum on 08-06-2023 Eosinophils/100 WBC (Bld) 1.0 % . [facility] Erythrocyte distribution wid th Auto (RBC) [Ratio]Ordered By: Marilee Marcum on 08-06-2023 Erythrocyte distribution width (RBC) [Ratio] 16.7 % 11.9-15.3 [facility] Glucose [Mass/volume] in Ser um or PlasmaOrdered By: Marilee Marcum on 08-06-2023 Glucose [Mass/Vol] 99 mg/dL 70-100 [facility] Comment on above: ADA recommended refe rence rangeRandom Glucose Reference Range is dependent on time and content of last meal. Glucose of more than 200 mg/dL in a nonstressed, ambulatory subject supports the diagnosis of Diabetes Mellitus. Hematocrit Auto (Bld) [Volum e fraction]Ordered By: Marilee Marcum on 08-06-2023 Hematocrit (Bld) [Volume fraction] 45.8 % 34.0-46.4 [facility] Hemoglobin [Mass/volume] in BloodOrdered By: Marilee Marcum on 08-06-2023 Hemoglobin (Bld) [Mass/Vol] 15.4 g/dL 11.8-15.4 [facility] INR in Platelet poor plasma by Coagulation assayOrdered By: Marilee Marcum on 08-06-2023 INR Coag (PPP) [Relative time] 1.0 {INR} [facility] Comment on above: INR Therapeutic Rang [...] RBC Auto (Bld) [#/Vol] 10.8 10*3/uL 3.8-11.6 [facility] Lymphocytes Auto (Bld) [#/Vo l]Ordered By: Marilee Marcum on 08-06-2023 Lymphocytes (Bld) [#/Vol] 1.4 10*3/uL 1.00-4.8 [facility] Lymphocytes/100 WBC Auto (Bl d)Ordered By: Marilee Marcum on 08-06-2023 Lymphocytes/100 WBC (Bld) 12.5 % . [facility] MCH Auto (RBC) [Entitic mass ]Ordered By: Marilee Marcum on 08-06-2023 MCH (RBC) [Entitic mass] 32.9 pg 24.7-34.3 [facility] MCHC Auto (RBC) [Mass/Vol]Or dered By: Marilee Marcum on 08-06-2023 MCHC (RBC) [Mass/Vol] 33.7 g/dL 32.0-35.0 [facility] MCV Auto (RBC) [Entitic vol] Ordered By: Marilee Marcum on 08-06-2023 MCV (RBC) [Entitic vol] 97.6 fL 80-100 [facility] Monocyte distribution width [Entitic volume] in Blood by AutomatedOrdered By: Marilee Marcum on 08-06-2023 Monocyte distribution width Auto (Bld) [Entitic vol] 23.24 % 0.00-20.00 [facility] Comment on above: For adults in ED, MD W > 20.0 may be associated with a higher risk of sepsis during the first 12 hrs of hospital admission Monocytes Auto (Bld) [#/Vol] Ordered By: Marilee Marcum on 08-06-2023 Monocytes (Bld) [#/Vol] 0.8 10*3/uL 0.0-0.8 [facility] Monocytes/100 WBC Auto (Bld) Ordered By: Marilee Marcum on 08-06-2023 Monocytes/100 WBC (Bld) 7.7 % . [facility] Natriuretic peptide B [Mass/ Vol]Ordered By: Marilee Marcum on 08-06-2023 Natriuretic peptide B (Bld) [Mass/Vol] 29.0 pg/mL 5-100 [facility] Neutrophils Auto (Bld) [#/Vo l]Ordered By: Marilee Marucm on 08-06-2023 Neutrophils (Bld) [#/Vol] 8.5 10*3/uL 1.8-7.7 [facility] Neutrophils/100 WBC Auto (Bl d)Ordered By: Marilee Marcum on 08-06-2023 Neutrophils/100 WBC (Bld) 78.3 % . [facility] No Panel InformationOrdered By: Marilee Marcum on 08-06-2023 Estimated GFR (CKD-EPI) > 60.0 mL/Min [facility] Creatinine Clearance (Chem 116.58 [facility] Nucleated erythrocytes [Pres ence] in Blood by Automated countOrdered By: Marilee Marcum on 08-06-2023 Nucleated RBC Auto Ql (Bld) 0.1 /100{WBC} 0-0.5 [facility] Partial Thromboplastin Timeo n 08-06-2023 aPTT Coag (Bld) [Time] 32.3 s Normal 25.1-36.5 [facility] Comment on above: Result Comment: A he matocrit value greater than 55% may lead to inaccurate results in coagulation testing. Patients having hematocrit values >55% require a special collection tube for coagulation studies. Please contact the laboratory at [phone] for redraw instructions. PERFORMED BY: [place] [address] PATHOLOGIST [employer] WAYNE WAKEFIELD M.D. Performed By: #### V ANCT #### [facility] [address] [place] [address] Platelet mean volume Auto (B ld) [Entitic vol]Ordered By: Marilee Marcum on 08-06-2023 Platelet mean volume (Bld) [Entitic vol] 7.3 fL 6.3-10.7 [facility] Platelets Auto (Bld) [#/Vol] Ordered By: Marilee Marcum on 08-06-2023 Platelets (Bld) [#/Vol] 237 10*3/uL 150-450 [facility] Potassium [Moles/volume] in Serum or PlasmaOrdered By: Marilee Marcum on 08-06-2023 Potassium [Moles/Vol] 3.7 mmol/L 3.5-5.1 [facility] Prothrombin Time INRon 08-06 INR Coag (PPP) [Relative time] 1.0 {INR} Normal [facility] Comment on above: Result Comment: INR [...] 4.5 Performed By: #### V ANCT #### [facility] [address] PT Coag (PPP) [Time] 11.3 s Normal 9.0-12.9 [facility] Comment on above: Result Comment: A he matocrit value greater than 55% may lead to inaccurate results in coagulation testing. Patients having hematocrit values >55% require a special collection tube for coagulation studies. Please contact the laboratory at [phone] for redraw instructions. Performed By: #### V ANCT #### [facility] [address] [place] [id number] [facility] Prothrombin time (PT)Ordered By: Marilee Marcum on 08-06-2023 PT Coag (PPP) [Time] 11.3 s 9.0-12.9 [facility] Comment on above: A hematocrit value g reater than 55% may lead to inaccurate results in coagulation testing. Patients having hematocrit values >55% require a special collection tube for coagulation studies. Please contact the laboratory at [phone] for redraw instructions. RBC Auto (Bld) [#/Vol]Ordere d By: Marilee Marcum on 08-06-2023 RBC (Bld) [#/Vol] 4.70 10*6/uL 3.60-5.00 [facility] Serum or plasma anion gap de terminationOrdered By: Marilee Marcum on 08-06-2023 Anion gap [Moles/Vol] 9.8 mmol/L 6.0-15.0 [facility] Sodium [Moles/volume] in Ser um or PlasmaOrdered By: Marilee Marcum on 08-06-2023 Sodium [Moles/Vol] 137 mmol/L 136-145 [facility] Troponin I High Sensitivityo n 08-06-2023 Troponin I High Sensitivity 8.9 pg/mL Normal 0.0-15.0 [facility] Comment on above: Result Comment: PERF ORMED BY: [place] [address] PATHOLOGIST [employer] WAYNE WAKEFIELD M.D. Performed By: #### V ANCT #### [address] Troponin I.cardiac [Mass/vol ume] in Serum or Plasma by Detection limit <= 0.01 ng/Ordered By: Marilee Marcum on 08-06-2023 Troponin I.cardiac DL <= 0.01 ng/mL [Mass/Vol] 8.9 pg/mL 0.0-15.0 [facility] Urea nitrogen [Mass/volume] in Serum or PlasmaOrdered By: Marilee Marcum on 08-06-2023 Urea nitrogen [Mass/Vol] 8 mg/dL 7-25 [facility] WBC Auto (Bld) [#/Vol]Ordere d By: Marilee Marcum on 08-06-2023 WBC (Bld) [#/Vol] 10.8 10*3/uL 3.8-11.6 [facility] XR chest 2V*on 08-06-2023 XR chest 2V* [facility] [place] [address] [place] [address] XRay Report Signed Patient: Christiane Perez MR#: [id number] 2 : 1975 Acct:[id number] Age/Sex: 48 / F ADM Date: 08/06/23 Loc: ER Room: Type: [facility] ER Attending Dr: Copies to: Marilee Marcum [...] Giovanny Cleveland M.D.08/06/2023 8:42 PM Dictation Location: [place] [address] Transcribed By: [facility] 08/06/232041 Dictated By: Giovanny Cleveland DO 08/06/232038 Signed By: 08/06/232041 [facility] Basic Metabolic Panelon 12-0 Anion gap [Moles/Vol] 9.2 mmol/L Normal 6.0-15.0 [facility] Comment on above: Performed By: #### G LULS #### Point of Care testing , Calcium [Mass/Vol] 8.9 mg/dL Normal 8.6-10.3 [facility] Comment on above: Performed By: #### G LULS #### Point of Care testing , Chloride [Moles/Vol] 107 mmol/L Normal 98-107 [facility] Comment on above: Performed By: #### G LULS #### Point of Care testing , CO2 [Moles/Vol] 25.5 mmol/L Normal 21.0-31.0 [facility] Comment on above: Performed By: #### G LULS #### Point of Care testing , Creatinine [Mass/Vol] 0.70 mg/dL Normal 0.60-1.20 [facility] Comment on above: Performed By: #### G LULS #### Point of Care testing , Creatinine Clr Calc Pharmacy 119.81 [facility] Comment on above: Result Comment: PERF ORMED BY: [address] [place] [address] PATHOLOGIST [employer] WAYNE WAKEFIELD M.D. Performed By: #### G LULS #### Point of Care testing , GFR/1.73 sq M.predicted MDRD (S/P/Bld) [Vol rate/Area] mL/min/{1.73_m2} Normal [facility] Comment on above: Performed By: #### G LULS #### Point of Care testing , Glucose [Mass/Vol] 50 mg/dL Low 70-100 [facility] Comment on above: Result Comment: [facility] Glucose Reference Range is dependent on time and content of last meal. Glucose of more than 200 mg/dL in a nonstressed, ambulatory subject supports the diagnosis of Diabetes Mellitus. ADA recommended reference range Performed By: #### G LULS #### Point of Care testing , Potassium [Moles/Vol] 3.7 mmol/L Normal 3.5-5.1 [facility] Comment on above: Performed By: #### G LULS #### Point of Care testing , Sodium [Moles/Vol] 138 mmol/L Normal 136-145 [facility] Comment on above: Performed By: #### G LULS #### Point of Care testing , Urea nitrogen [Mass/Vol] 10 mg/dL Normal 7-25 [facility] Comment on above: Performed By: #### G LULS #### Point of Care testing , Complete Blood Count Auto Di ffon 07-17-2023 Basophils (Bld) [#/Vol] 0.2 10*3/uL Normal 0.0-0.2 [facility] Comment on above: Result Comment: PERF ORMED BY: [facility] [address] [place] [address] PATHOLOGIST [employer] WAYNE WAKEFIELD M.D. Performed By: #### G LULS #### Point of Care testing , Basophils/100 WBC (Bld) 1.1 % Normal . [facility] Comment on above: Performed By: #### G LULS #### Point of Care testing , Eosinophils (Bld) [#/Vol] 0.2 10*3/uL Normal 0.0-0.45 [facility] Comment on above: Performed By: #### G MARYLS #### Point of Care testing , Eosinophils/100 WBC (Bld) 1.2 % Normal . [facility] Comment on above: Performed By: #### G MARYLS #### Point of Care testing , Erythrocyte distribution width (RBC) [Ratio] 16.3 % High 11.9-15.3 [facility] Comment on above: Performed By: #### G MARYLS #### Point of Care testing , Hematocrit (Bld) [Volume fraction] 45.8 % Normal 34.0-46.4 [facility] Comment on above: Performed By: #### G MARYLS #### Point of Care testing , Hemoglobin (Bld) [Mass/Vol] 15.3 g/dL Normal 11.8-15.4 [facility] Comment on above: Performed By: #### G MARYLS #### Point of Care testing , Lymphocytes (Bld) [#/Vol] 4.4 10*3/uL Normal 1.00-4.8 [facility] Comment on above: Performed By: #### G MARYLS #### Point of Care testing , Lymphocytes/100 WBC (Bld) 32.3 % Normal . [facility] Comment on above: Performed By: #### G MARYLS #### Point of Care testing , MCH (RBC) [Entitic mass] 32.2 pg Normal 24.7-34.3 [facility] Comment on above: Performed By: #### G MARYLS #### Point of Care testing , MCV (RBC) [Entitic vol] 96.4 fL Normal 80-100 [facility] Comment on above: Performed By: #### G MARYLS #### Point of Care testing , Mean Corpuscular HGB Conc 33.4 g/dL Normal 32.0-35.0 [facility] Comment on above: Performed By: #### G MARYLS #### Point of Care testing , Monocytes (Bld) [#/Vol] 0.9 10*3/uL High 0.0-0.8 [facility] Comment on above: Performed By: #### G MARE #### Point of Care testing , Monocytes/100 WBC (Bld) 17.19 % Normal 0.00-20.00 [facility] Comment on above: Performed By: #### G MARE #### Point of Care testing , Monocytes/100 WBC (Bld) 6.8 % Normal . [facility] Comment on above: Performed By: #### G MARE #### Point of Care testing , Neutrophils (Bld) [#/Vol] 8.0 10*3/uL High 1.8-7.7 [facility] Comment on above: Performed By: #### G MARYLS #### Point of Care testing , Neutrophils/100 WBC (Bld) 58.6 % Normal . [facility] Comment on above: Performed By: #### G MARE #### Point of Care testing , NRBC% 0.1 /100{WBC} Normal 0-0.5 [facility] Comment on above: Performed By: #### Sophia GARVEY #### Point of Care testing , Platelet mean volume (Bld) [Entitic vol] 6.9 fL Normal 6.3-10.7 [facility] Comment on above: Performed By: #### Sophia GARVEY #### Point of Care testing , Platelets (Bld) [#/Vol] 414 10*3/uL Normal 150-450 [facility] Comment on above: Performed By: #### G MARE #### Point of Care testing , RBC (Bld) [#/Vol] 4.75 10*6/uL Normal 3.60-5.00 [facility] Comment on above: Performed By: #### G MARE #### Point of Care testing , WBC (Bld) [#/Vol] 13.6 10*3/uL High 3.8-11.6 [facility] Comment on above: Performed By: #### G AMRYLS #### Point of Care testing , XR chest 1V portableon 07-17 XR chest 1V portable [place] [address] XRay Report Signed Patient: Christiane Perez MR#: [id number] 2 : 1975 Acct:[id number] Age/Sex: 48 / F ADM Date: 07/16/23 Loc: ER Room: Type: [facility] ER Attending Dr: Copies to: Yasmin Leung [...] Shireen Caruso M.D.07/17/2023 8:50 AM Dictation Location: [place] [address] Transcribed By: CHARLI 07/17/23 0850 Dictated By: Shireen Caruso MD 07/17/23 0849 Signed By: 07/17/23 0850 Normal [facility] Basophils Auto (Bld) [#/Vol] Ordered By: Yasmin Leung on 07-16-2023 Basophils (Bld) [#/Vol] 0.2 10*3/uL 0.0-0.2 [facility] Basophils/100 WBC Auto (Bld) Ordered By: Yasmin Leung on 07-16-2023 Basophils/100 WBC (Bld) 1.1 % . [facility] Calcium [Mass/volume] in Ser um or PlasmaOrdered By: Yasmin Leung on 07-16-2023 Calcium [Mass/Vol] 8.9 mg/dL 8.6-10.3 [facility] Carbon dioxide, total [Moles /volume] in Serum or PlasmaOrdered By: Yasmin Leung on 07-16-2023 CO2 [Moles/Vol] 25.5 mmol/L 21.0-31.0 [facility] Chloride [Moles/volume] in S kaitlin or PlasmaOrdered By: Yasmin Leung on 07-16-2023 Chloride [Moles/Vol] 107 mmol/L 98-107 [facility] Creatinine [Mass/volume] in Serum or PlasmaOrdered By: Yasmin Leung on 07-16-2023 Creatinine [Mass/Vol] 0.70 mg/dL 0.60-1.20 [facility] ECG 12 lead ECGon 07-16-2023 ECG 12 lead ECG [place] [address] Electrocardiograph Report Signed Patient: Christiane Perez MR#: [id number] 2 : 1975 Acct:[id number] Age/Sex: 48 / F ADM Date: 07/16/23 Loc: ER Room: Type: [facility] ER Attending Dr: Ordering Provider: Yasmin Leung [...] By Yasmin Leung MD 07/17/23 0119 Normal [facility] Eosinophils Auto (Bld) [#/Vo l]Ordered By: Yasmin Leung on 07-16-2023 Eosinophils (Bld) [#/Vol] 0.2 10*3/uL 0.0-0.45 [facility] Eosinophils/100 WBC Auto (Bl d)Ordered By: Yasmin Leung on 07-16-2023 Eosinophils/100 WBC (Bld) 1.2 % . [facility] Erythrocyte distribution wid th Auto (RBC) [Ratio]Ordered By: Yasmin Leung on 07-16-2023 Erythrocyte distribution width (RBC) [Ratio] 16.3 % 11.9-15.3 [facility] Glucose [Mass/volume] in Ser um or PlasmaOrdered By: Yasmin Leung on 07-16-2023 Glucose [Mass/Vol] 50 mg/dL 70-100 [facility] Comment on above: ADA recommended refe rence rangeRandom Glucose Reference Range is dependent on time and content of last meal. Glucose of more than 200 mg/dL in a nonstressed, ambulatory subject supports the diagnosis of Diabetes Mellitus. Hematocrit Auto (Bld) [Volum e fraction]Ordered By: Yasmin Leung on 07-16-2023 Hematocrit (Bld) [Volume fraction] 45.8 % 34.0-46.4 [facility] Hemoglobin [Mass/volume] in BloodOrdered By: Yasmin Leung on 07-16-2023 Hemoglobin (Bld) [Mass/Vol] 15.3 g/dL 11.8-15.4 [facility] Leukocytes [#/volume] correc billy for nucleated erythrocytes in Blood by Automated counOrdered By: Yasmin Leung on 07-16-2023 WBC corrected for nucl RBC Auto (Bld) [#/Vol] 13.6 10*3/uL 3.8-11.6 [facility] Lymphocytes Auto (Bld) [#/Vo l]Ordered By: Yasmin Leung on 07-16-2023 Lymphocytes (Bld) [#/Vol] 4.4 10*3/uL 1.00-4.8 [facility] Lymphocytes/100 WBC Auto (Bl d)Ordered By: Yasmin Leung on 07-16-2023 Lymphocytes/100 WBC (Bld) 32.3 % . [facility] MCH Auto (RBC) [Entitic mass ]Ordered By: Yasmin Leung on 07-16-2023 MCH (RBC) [Entitic mass] 32.2 pg 24.7-34.3 [facility] MCHC Auto (RBC) [Mass/Vol]Or dered By: Yasmin Leung on 07-16-2023 MCHC (RBC) [Mass/Vol] 33.4 g/dL 32.0-35.0 [facility] MCV Auto (RBC) [Entitic vol] Ordered By: Yasmin Leung on 07-16-2023 MCV (RBC) [Entitic vol] 96.4 fL 80-100 [facility] Monocyte distribution width [Entitic volume] in Blood by AutomatedOrdered By: Yasmin Leung on 07-16-2023 Monocyte distribution width Auto (Bld) [Entitic vol] 17.19 % 0.00-20.00 [facility] Monocytes Auto (Bld) [#/Vol] Ordered By: Yasmin Leung on 07-16-2023 Monocytes (Bld) [#/Vol] 0.9 10*3/uL 0.0-0.8 [facility] Monocytes/100 WBC Auto (Bld) Ordered By: Yasmin Leung on 07-16-2023 Monocytes/100 WBC (Bld) 6.8 % . [facility] Neutrophils Auto (Bld) [#/Vo l]Ordered By: Yasmin Leung on 07-16-2023 Neutrophils (Bld) [#/Vol] 8.0 10*3/uL 1.8-7.7 [facility] Neutrophils/100 WBC Auto (Bl d)Ordered By: Yasmin Leung on 07-16-2023 Neutrophils/100 WBC (Bld) 58.6 % . [facility] No Panel InformationOrdered By: Yasmin Leung on 07-16-2023 Estimated GFR (CKD-EPI) > 60.0 mL/Min [facility] Creatinine Clearance (Chem 119.81 [facility] Nucleated erythrocytes [Pres ence] in Blood by Automated countOrdered By: Yasmin Leung on 07-16-2023 Nucleated RBC Auto Ql (Bld) 0.1 /100{WBC} 0-0.5 [facility] Platelet mean volume Auto (B ld) [Entitic vol]Ordered By: Yasmin Leung on 07-16-2023 Platelet mean volume (Bld) [Entitic vol] 6.9 fL 6.3-10.7 [facility] Platelets Auto (Bld) [#/Vol] Ordered By: Yasmin Leung on 07-16-2023 Platelets (Bld) [#/Vol] 414 10*3/uL 150-450 [facility] Potassium [Moles/volume] in Serum or PlasmaOrdered By: Yasmin Leung on 07-16-2023 Potassium [Moles/Vol] 3.7 mmol/L 3.5-5.1 [facility] RBC Auto (Bld) [#/Vol]Ordere d By: Yasmin Leung on 07-16-2023 RBC (Bld) [#/Vol] 4.75 10*6/uL 3.60-5.00 [facility] Serum or plasma anion gap de terminationOrdered By: Yasmin Leung on 07-16-2023 Anion gap [Moles/Vol] 9.2 mmol/L 6.0-15.0 [facility] Sodium [Moles/volume] in Ser um or PlasmaOrdered By: Yasmin Leung on 07-16-2023 Sodium [Moles/Vol] 138 mmol/L 136-145 [facility] Urea nitrogen [Mass/volume] in Serum or PlasmaOrdered By: Yasmin Leung on 07-16-2023 Urea nitrogen [Mass/Vol] 10 mg/dL 7-25 [facility] WBC Auto (Bld) [#/Vol]Ordere d By: Yasmin Leung on 07-16-2023 WBC (Bld) [#/Vol] 13.6 10*3/uL 3.8-11.6 [facility] COVID CepheidOrdered By: Antonio Villeda on 07-05-2023 SARS-CoV-2 (COVID-19) Ab IA Ql Negative Negative [facility] Comment on above: This is a duplicate Cepheid Xpert Xpress CoV-2/Flu/RSV Plus RNA by RT-PCR result to be used for statistical tracking purpose only. SARS-CoV-2 (COVID-19) RNA SOILA+probe Ql (Unsp spec) [facility] COVID-19 / Flu A/B / RSV [...] or Cepheid Disclaimer revoked sooner. PERFORMED BY: [facility] [address] [place] [address] PATHOLOGIST [employer] HEAD WAYNE WAKEFIELD M.D. Normal [facility] Comment on above: Performed By: #### G LULS #### Point of Care testing , Cepheid COVID PCR Negativeon 07-05-2023 SARS-CoV-2 (COVID-19) RNA SOILA+probe Ql (Unsp spec) Negative Normal Negative [facility] Comment on above: Result Comment: This is a duplicate Cepheid Xpert Xpress CoV-2/Flu/RSV Plus RNA by RT-PCR result to be used for statistical tracking purpose only. PERFORMED BY: [facility] [address] [place] [address] PATHOLOGIST [employer] HEAD WAYNE WAKEFIELD M.D. Performed By: #### G LULS #### Point of Care testing , XR chest 2V*on 07-05-2023 XR chest 2V* [facility] [place] [address] [place] [address] XRay Report Signed Patient: Christiane Perez MR#: [id number] 2 : 1975 Acct:[id number] Age/Sex: 48 / F ADM Date: 07/05/23 Loc: ER Room: Type: [facility] ER Attending Dr: Copies to: Elio Villeda [...] Giovanny Cleveland M.D.07/05/2023 2:41 PM Dictation Location: [place] [address] Transcribed By: [facility] 07/05/23 1441 Dictated By: Giovanny Cleveland DO 07/05/23 1437 Signed By: 07/05/23 1441 Normal [facility] Quick Strepon 06-20-2023 S. pyogenes Org specific cx Ql (Throat) Negative [employer] Other Quick Strep [employer] Other CT chest wo conon 04-09-2023 CT chest wo con [facility] [place] [address] [place] [address] Scan Report Signed Patient: Christiane Perez MR#: [id number] 2 : 1975 Acct:[id number] Age/Sex: 48 / F ADM Date: 04/09/23 Loc: [facility] Room: Type: [facility] Attending Dr: Valeriano Horta MD Copies to: [...] Johnson Jr., D.OJosue04/09/2023 3:00 PM Dictation Location: [place] [address] Transcribed By: [facility] 04/09/23 1500 Dictated By: Rodger Johnson Jr, DO 04/09/23 1457 Signed By: 04/09/23 1500 Normal [facility] SURGICAL PATHOLOGY REFERENCE LAB CONSULTon 03-19-2023 CASE REPORT Normal [facility] Comment on above: Order Comment: Speci men Type: SLIDE Ordering Facility: [facility] Address: [address] [place] [phone] Result Comment: Surg [facility] Pathology Report Case: [id number] Authorizing Provider: Gregory Aranda MD Collected: 03/19/2023 09:16 AM Ordering Location: [facility] Main Received: 03/19/2023 09:14 AM Pathologist: Mando Gar MD Specimen: SLIDE(S), 8 SLIDES [id number] Performed By: #### L [id number] #### [facility] CLIA [id number] [address] [facility] [address] CLINICAL HISTORY CONSULT REQUESTED [facility] Comment on above: Order Comment: Speci men Type: SLIDE Ordering Facility: [facility] Address: [address] [place] [phone] Performed By: #### L [id number] #### [facility] CLIA [id number] [address] [place] [address] DIAGNOSIS COMMENT Normal [facility] Comment on above: Order Comment: Speci men Type: SLIDE Ordering Facility: [facility] Address: [address] [place] [phone] Result Comment: Than k you for sharing [...] available, is recommended. Performed By: #### L [id number] #### [facility] CLIA [id number] [address] [place] [address] [place] FINAL DIAGNOSIS Normal [facility] Comment on above: Order Comment: Speci tee Type: SLIDE Ordering Facility: [facility] Address: [address] [place] [phone] Result Comment: Lung , left upper lobe, transbronchial biopsy (S [id number], A1; 03/11/2023): -Organizing acute lung injury with fibrin and acute inflammation Performed By: #### L [id number] #### [facility] CLIA [id number] [address] [place] [address] [place] FINAL PERFORMING LAB Normal [facility] Comment on above: Order Comment: Speci tee Type: SLIDE Ordering Facility: [facility] Address: [address] [place], [place] [phone] Result Comment: Diag nostic interpretation performed at [facility], [address] [place] [address] CLIA# [id number] [employer] Therapist: Don Meehan M.D. Performed By: #### L [id number] #### [facility] CLIA [id number] [address] [place] [address] [place] XR chest 1V portableon 03-17 XR chest 1V portable [facility] [address] [address] XRay Report Signed Patient: Christiane Perez MR#: [id number] 2 : 1975 Acct:[id number] Age/Sex: 48 / F ADM Date: 03/10/23 Loc: 3T Room: [address] [place] [address] Type: DIS IN Attending Dr: Krunal Kelly [...] Johnson Jr., D.O.03/17/2023 10:12 AM Dictation Location: [place] [address] Transcribed By: [facility] 03/17/23 1012 Dictated By: Rodger Johnson Jr, DO 03/17/23 1012 Signed By: 03/17/23 1012 Normal [facility] A1C with Estimated Average G shilpi 03-14-2023 Glucose [Mass/Vol] 171 mg/dL Normal [facility] Comment on above: Result Comment: PERF ORMED BY: [facility] [address] [place] [address] PATHOLOGIST [employer] HEAD WAYNE WAKEFIELD M.D. Performed By: #### G LULS #### Point of Care testing , HbA1c (Bld) [Mass fraction] 7.6 % High 4.3-5.6 [facility] Comment on above: Result Comment: Incr eased risk for diabetes: 5.7 - 6.4 diabetes: >6.4 glycemic control for adults with diabetes: <7.0 Performed By: #### G LULS #### Point of Care testing , Alanine aminotransferase [En zymatic activity/volume] in Serum or PlasmaOrdered By: Krunal Kelly on 03-14-2023 ALT [Catalytic activity/Vol] 5 U/L 7-52 [facility] Albumin [Mass/volume] in Ser um or Plasma by Bromocresol green (BCG) dye binding methoOrdered By: Krunal Kelly on 03-14-2023 Albumin BCG dye [Mass/Vol] 2.9 g/dL 3.5-5.7 [facility] Alkaline phosphatase [Enzyma tic activity/volume] in Serum or PlasmaOrdered By: Krunal Kelly on 03-14-2023 ALP [Catalytic activity/Vol] 94 U/L 34-104 [facility] Aspartate aminotransferase [ Enzymatic activity/volume] in Serum or PlasmaOrdered By: Krunal Kelly on 03-14-2023 AST [Catalytic activity/Vol] 8 U/L 13-39 [facility] Basophils Auto (Bld) [#/Vol] Ordered By: Eron Wood on 03-14-2023 Basophils (Bld) [#/Vol] 0.1 10*3/uL 0.0-0.2 [facility] Basophils/100 WBC Auto (Bld) Ordered By: Eron Wood on 03-14-2023 Basophils/100 WBC (Bld) 0.7 % . [facility] Bilirubin.total [Mass/volume ] in Serum or PlasmaOrdered By: Krunal Kelly on 03-14-2023 Bilirubin [Mass/Vol] 0.7 mg/dL 0.3-1.0 [facility] Calcium [Mass/volume] in Ser um or PlasmaOrdered By: Krunal Kelly on 03-14-2023 Calcium [Mass/Vol] 8.3 mg/dL 8.6-10.3 [facility] Carbon dioxide, total [Moles /volume] in Serum or PlasmaOrdered By: Krunal Kelly on 03-14-2023 CO2 [Moles/Vol] 24.8 mmol/L 21.0-31.0 [facility] Chloride [Moles/volume] in S kaitlin or PlasmaOrdered By: Krunal Kelly on 03-14-2023 Chloride [Moles/Vol] 108 mmol/L 98-107 [facility] Complete Blood Count Auto Di ffon 03-14-2023 Basophils (Bld) [#/Vol] 0.1 10*3/uL Normal 0.0-0.2 [facility] Comment on above: Result Comment: PERF ORMED BY: [place] [address] PATHOLOGIST [employer] WAYNE WAKEFIELD M.D. Performed By: #### V ANCT #### [address] Basophils/100 WBC (Bld) 0.7 % Normal . [facility] Comment on above: Performed By: #### V ANCT #### [address] Eosinophils (Bld) [#/Vol] 0.4 10*3/uL Normal 0.0-0.45 [facility] Comment on above: Performed By: #### V ANCT #### [address] Eosinophils/100 WBC (Bld) 4.4 % Normal . [facility] Comment on above: Performed By: #### V ANCT #### [address] Erythrocyte distribution width (RBC) [Ratio] 15.5 % High 11.9-15.3 [facility] Comment on above: Performed By: #### V ANCT #### [address] Hematocrit (Bld) [Volume fraction] 35.1 % Normal 34.0-46.4 [facility] Comment on above: Performed By: #### V ANCT #### [place] [address] [place] Hemoglobin (Bld) [Mass/Vol] 12.0 g/dL Normal 11.8-15.4 [facility] Comment on above: Performed By: #### V ANCT #### [place] [address] [place] Lymphocytes (Bld) [#/Vol] 1.6 10*3/uL Normal 1.00-4.8 [facility] Comment on above: Performed By: #### V ANCT #### [address] Lymphocytes/100 WBC (Bld) 16.8 % Normal . [facility] Comment on above: Performed By: #### V ANCT #### [address] MCH (RBC) [Entitic mass] 32.8 pg Normal 24.7-34.3 [facility] Comment on above: Performed By: #### V ANCT #### [address] MCV (RBC) [Entitic vol] 96.4 fL Normal 80-100 [facility] Comment on above: Performed By: #### V ANCT #### [address] Mean Corpuscular HGB Conc 34.1 g/dL Normal 32.0-35.0 [facility] Comment on above: Performed By: #### V ANCT #### [address] Monocytes (Bld) [#/Vol] 0.7 10*3/uL Normal 0.0-0.8 [facility] Comment on above: Performed By: #### V ANCT #### [address] Monocytes/100 WBC (Bld) 7.1 % Normal . [facility] Comment on above: Performed By: #### V ANCT #### [address] Neutrophils (Bld) [#/Vol] 6.8 10*3/uL Normal 1.8-7.7 [facility] Comment on above: Performed By: #### V ANCT #### [address] Neutrophils/100 WBC (Bld) 71.0 % Normal . [facility] Comment on above: Performed By: #### V ANCT #### [place] [address] [place] NRBC% 0.1 /100{WBC} Normal 0-0.5 [facility] Comment on above: Performed By: #### V ANCT #### [address] Platelet mean volume (Bld) [Entitic vol] 6.2 fL Low 6.3-10.7 [facility] Comment on above: Performed By: #### V ANCT #### [address] Platelets (Bld) [#/Vol] 424 10*3/uL Normal 150-450 [facility] Comment on above: Performed By: #### V ANCT #### [address] RBC (Bld) [#/Vol] 3.65 10*6/uL Normal 3.60-5.00 [facility] Comment on above: Performed By: #### V ANCT #### [address] WBC (Bld) [#/Vol] 9.6 10*3/uL Normal 3.8-11.6 [facility] Comment on above: Performed By: #### Irena ANCT #### [address] Comprehensive Metabolic Pane moose 03-14-2023 Albumin [Mass/Vol] 2.9 g/dL Low 3.5-5.7 [facility] Comment on above: Performed By: #### G LUAUGUSTIN #### Point of Care testing , Albumin/Globulin [Mass ratio] 0.8 {ratio} Normal [facility] Comment on above: Performed By: #### G MARE #### Point of Care testing , ALP [Catalytic activity/Vol] 94 U/L Normal 34-104 [facility] Comment on above: Performed By: #### G MARYLS #### Point of Care testing , ALT [Catalytic activity/Vol] 5 U/L Low 7-52 [facility] Comment on above: Performed By: #### G LULS #### Point of Care testing , Anion gap [Moles/Vol] 8.9 mmol/L Normal 6.0-15.0 [facility] Comment on above: Performed By: #### G MARYLS #### Point of Care testing , AST [Catalytic activity/Vol] 8 U/L Low 13-39 [facility] Comment on above: Performed By: #### G MARYLS #### Point of Care testing , Bilirubin [Mass/Vol] 0.7 mg/dL Normal 0.3-1.0 [facility] Comment on above: Performed By: #### G MARYLS #### Point of Care testing , Calcium [Mass/Vol] 8.3 mg/dL Low 8.6-10.3 [facility] Comment on above: Performed By: #### G MARYLS #### Point of Care testing , Chloride [Moles/Vol] 108 mmol/L High 98-107 [facility] Comment on above: Performed By: #### G MARYLS #### Point of Care testing , CO2 [Moles/Vol] 24.8 mmol/L Normal 21.0-31.0 [facility] Comment on above: Performed By: #### G MARYLS #### Point of Care testing , Creatinine [Mass/Vol] 0.68 mg/dL Normal 0.60-1.20 [facility] Comment on above: Performed By: #### G MARYLS #### Point of Care testing , Creatinine Clr Calc Pharmacy 119.15 [facility] Comment on above: Result Comment: PERF ORMED BY: [facility] [address] [place] [address] PATHOLOGIST [employer] WAYNE WAKEFIELD M.D. Performed By: #### G MARYLS #### Point of Care testing , GFR/1.73 sq M.predicted MDRD (S/P/Bld) [Vol rate/Area] mL/min/{1.73_m2} [facility] Comment on above: Performed By: #### G MARYLS #### Point of Care testing , Globulin (S) [Mass/Vol] 3.7 g/dL [facility] Comment on above: Performed By: #### G LULS #### Point of Care testing , Glucose [Mass/Vol] 86 mg/dL Normal 70-100 [facility] Comment on above: Result Comment: [facility] Glucose Reference Range is dependent on time and content of last meal. Glucose of more than 200 mg/dL in a nonstressed, ambulatory subject supports the diagnosis of Diabetes Mellitus. ADA recommended reference range Performed By: #### G LULS #### Point of Care testing , Potassium [Moles/Vol] 3.7 mmol/L Normal 3.5-5.1 [facility] Comment on above: Performed By: #### G LULS #### Point of Care testing , Protein [Mass/Vol] 6.6 g/dL Normal 6.4-8.9 [facility] Comment on above: Performed By: #### G LULS #### Point of Care testing , Sodium [Moles/Vol] 138 mmol/L Normal 136-145 [facility] Comment on above: Performed By: #### G LULS #### Point of Care testing , Urea nitrogen [Mass/Vol] 6 mg/dL Low 7-25 [facility] Comment on above: Performed By: #### G LULS #### Point of Care testing , Creatinine [Mass/volume] in Serum or PlasmaOrdered By: Krunal Kelly on 03-14-2023 Creatinine [Mass/Vol] 0.68 mg/dL 0.60-1.20 [facility] Eosinophils Auto (Bld) [#/Vo l]Ordered By: Eron Wood on 03-14-2023 Eosinophils (Bld) [#/Vol] 0.4 10*3/uL 0.0-0.45 [facility] Eosinophils/100 WBC Auto (Bl d)Ordered By: Eron Wood on 03-14-2023 Eosinophils/100 WBC (Bld) 4.4 % . [facility] Erythrocyte distribution wid th Auto (RBC) [Ratio]Ordered By: Eron Wood on 03-14-2023 Erythrocyte distribution width (RBC) [Ratio] 15.5 % 11.9-15.3 [facility] Globulin Calc (S) [Mass/Vol] Ordered By: Krunal Kelly on 03-14-2023 Globulin (S) [Mass/Vol] 3.7 g/dL [facility] Glucose Glucometer (BldC) [M ass/Vol]Ordered By: Krunal Kelly on 03-14-2023 Glucose [Mass/Vol] 249 mg/dL [facility] Comment on above: Random Glucose Refer ence Range is dependent on time and content of last meal. Glucose of more than 200 mg/dL in a nonstressed, ambulatory subject supports the diagnosis of Diabetes Mellitus. Glucose Poct Glucometerson 0 03-14-2023 Glucose [Mass/Vol] 249 mg/dL Normal [facility] Comment on above: Result Comment: [place] om Glucose Reference Range is dependent on time and content of last meal. Glucose of more than 200 mg/dL in a nonstressed, ambulatory subject supports the diagnosis of Diabetes Mellitus. PERFORMED BY: [facility] [address] [place] [address] PATHOLOGIST [employer] WAYNE WAKEFIELD M.D. Performed By: #### G LULS #### Point of Care testing , Commemt1 Glu2: Cleaned Meter Normal [facility] Comment on above: Result Comment: PERF ORMED BY: [facility] [address] [place] [address] PATHOLOGIST [employer] WAYNE WAKEFIELD M.D. Performed By: #### G LULS #### Point of Care testing , Glucose [Mass/Vol] 95 mg/dL Normal [facility] Comment on above: Result Comment: [place] om Glucose Reference Range is dependent on time and content of last meal. Glucose of more than 200 mg/dL in a nonstressed, ambulatory subject supports the diagnosis of Diabetes Mellitus. Performed By: #### G LULS #### Point of Care testing , Glucose [Mass/volume] in Ser um or PlasmaOrdered By: Krunal Kelly on 03-14-2023 Glucose [Mass/Vol] 86 mg/dL 70-100 [facility] Comment on above: ADA recommended refe [...] from glycated hemoglobin (Bld) [Mass/Vol] 171 mg/dL [facility] Hematocrit Auto (Bld) [Volum e fraction]Ordered By: Eron Wood on 03-14-2023 Hematocrit (Bld) [Volume fraction] 35.1 % 34.0-46.4 [facility] Hemoglobin A1c percentageOrd ered By: Krunal Kelly on 03-14-2023 HbA1c (Bld) [Mass fraction] 7.6 % 4.3-5.6 [facility] Comment on above: Increased risk for d iabetes: 5.7 - 6.4diabetes: >6.4glycemic control for adults with diabetes: <7.0 Hemoglobin [Mass/volume] in BloodOrdered By: Eron Wood on 03-14-2023 Hemoglobin (Bld) [Mass/Vol] 12.0 g/dL 11.8-15.4 [facility] Leukocytes [#/volume] correc billy for nucleated erythrocytes in Blood by Automated counOrdered By: Eron Wood on 03-14-2023 WBC corrected for nucl RBC Auto (Bld) [#/Vol] 9.6 10*3/uL 3.8-11.6 [facility] Lymphocytes Auto (Bld) [#/Vo l]Ordered By: Eron Wood on 03-14-2023 Lymphocytes (Bld) [#/Vol] 1.6 10*3/uL 1.00-4.8 [facility] Lymphocytes/100 WBC Auto (Bl d)Ordered By: Eron Wood on 03-14-2023 Lymphocytes/100 WBC (Bld) 16.8 % . [facility] MCH Auto (RBC) [Entitic mass ]Ordered By: Eron Wood on 03-14-2023 MCH (RBC) [Entitic mass] 32.8 pg 24.7-34.3 [facility] MCHC Auto (RBC) [Mass/Vol]Or dered By: Eron Wood on 03-14-2023 MCHC (RBC) [Mass/Vol] 34.1 g/dL 32.0-35.0 [facility] MCV Auto (RBC) [Entitic vol] Ordered By: Eron Wood on 03-14-2023 MCV (RBC) [Entitic vol] 96.4 fL 80-100 [facility] Monocytes Auto (Bld) [#/Vol] Ordered By: Eron Wood on 03-14-2023 Monocytes (Bld) [#/Vol] 0.7 10*3/uL 0.0-0.8 [facility] Monocytes/100 WBC Auto (Bld) Ordered By: Eron Wood on 03-14-2023 Monocytes/100 WBC (Bld) 7.1 % . [facility] Neutrophils Auto (Bld) [#/Vo l]Ordered By: Eron Wood on 03-14-2023 Neutrophils (Bld) [#/Vol] 6.8 10*3/uL 1.8-7.7 [facility] Neutrophils/100 WBC Auto (Bl d)Ordered By: Eron Wood on 03-14-2023 Neutrophils/100 WBC (Bld) 71.0 % . [facility] No Panel InformationOrdered By: Krunal Kelly on 03-14-2023 Bedside Glucose Comment Glu2: cleaned meter [facility] Estimated GFR (CKD-EPI) > 60.0 mL/Min [facility] Creatinine Clearance (Chem 119.15 [facility] Nucleated erythrocytes [Pres ence] in Blood by Automated countOrdered By: Eron Wood on 03-14-2023 Nucleated RBC Auto Ql (Bld) 0.1 /100{WBC} 0-0.5 [facility] Platelet mean volume Auto (B ld) [Entitic vol]Ordered By: Eron Wood on 03-14-2023 Platelet mean volume (Bld) [Entitic vol] 6.2 fL 6.3-10.7 [facility] Platelets Auto (Bld) [#/Vol] Ordered By: Eron Wood on 03-14-2023 Platelets (Bld) [#/Vol] 424 10*3/uL 150-450 [facility] Potassium [Moles/volume] in Serum or PlasmaOrdered By: Krunal Kelly on 03-14-2023 Potassium [Moles/Vol] 3.7 mmol/L 3.5-5.1 [facility] Protein [Mass/volume] in Ser um or PlasmaOrdered By: Krunal Kelly on 03-14-2023 Protein [Mass/Vol] 6.6 g/dL 6.4-8.9 [facility] RBC Auto (Bld) [#/Vol]Ordere d By: Eron Wood on 03-14-2023 RBC (Bld) [#/Vol] 3.65 10*6/uL 3.60-5.00 [facility] Serum or plasma albumin/glob ulin mass ratioOrdered By: Krunal Kelly on 03-14-2023 Albumin/Globulin [Mass ratio] 0.8 {ratio} [facility] Serum or plasma anion gap de terminationOrdered By: Krunal Kelly on 03-14-2023 Anion gap [Moles/Vol] 8.9 mmol/L 6.0-15.0 [facility] Sodium [Moles/volume] in Ser um or PlasmaOrdered By: Krunal Kelly on 03-14-2023 Sodium [Moles/Vol] 138 mmol/L 136-145 [facility] Urea nitrogen [Mass/volume] in Serum or PlasmaOrdered By: Krunal Kelly on 03-14-2023 Urea nitrogen [Mass/Vol] 6 mg/dL 7-25 [facility] WBC Auto (Bld) [#/Vol]Ordere d By: Eron Wood on 03-14-2023 WBC (Bld) [#/Vol] 9.6 10*3/uL 3.8-11.6 [facility] Basic Metabolic Panelon 02-14 Anion gap [Moles/Vol] 8.9 mmol/L Normal 6.0-15.0 [facility] Comment on above: Performed By: #### C BC, BMP, MG #### [facility] [address] Calcium [Mass/Vol] 8.4 mg/dL Low 8.6-10.3 [facility] Comment on above: Performed By: #### C BC, BMP, MG #### [facility] [address] Chloride [Moles/Vol] 109 mmol/L High 98-107 [facility] Comment on above: Performed By: #### C BC, BMP, MG #### [facility] [address] CO2 [Moles/Vol] 24.9 mmol/L Normal 21.0-31.0 [facility] Comment on above: Performed By: #### C BC, BMP, MG #### [address] Creatinine [Mass/Vol] 0.61 mg/dL Normal 0.60-1.20 [facility] Comment on above: Performed By: #### C BC, BMP, MG #### [place] [address] [place] Creatinine Clr Calc Pharmacy 132.97 [facility] Comment on above: Result Comment: PERF ORMED BY: [place] [address] PATHOLOGIST [employer] WAYNE WAKEFIELD M.D. Performed By: #### C BC, BMP, MG #### [place] [address] [place] GFR/1.73 sq M.predicted MDRD (S/P/Bld) [Vol rate/Area] mL/min/{1.73_m2} [facility] Comment on above: Performed By: #### C BC, BMP, MG #### [place] [address] [place] Glucose [Mass/Vol] 97 mg/dL Normal 70-100 [facility] Comment on above: Result Comment: [facility] Glucose Reference Range is dependent on time and content of last meal. Glucose of more than 200 mg/dL in a nonstressed, ambulatory subject supports the diagnosis of Diabetes Mellitus. ADA recommended reference range Performed By: #### C BC, BMP, MG #### [facility] [address] Potassium [Moles/Vol] 3.8 mmol/L Normal 3.5-5.1 [facility] Comment on above: Performed By: #### C BC, BMP, MG #### [facility] [address] Sodium [Moles/Vol] 139 mmol/L Normal 136-145 [facility] Comment on above: Performed By: #### C BC, BMP, MG #### [facility] [address] Urea nitrogen [Mass/Vol] 6 mg/dL Low 7-25 [facility] Comment on above: Performed By: #### C BC, BMP, MG #### [facility] [address] Complete Blood Count Auto Di ffon 03-13-2023 Basophils (Bld) [#/Vol] 0.0 10*3/uL Normal 0.0-0.2 [facility] Comment on above: Result Comment: PERF ORMED BY: [place] [address] PATHOLOGIST [employer] WAYNE WAKEFIELD M.D. Performed By: #### C BC, BMP, MG #### [facility] [address] [place] [address] [place] Basophils/100 WBC (Bld) 0.5 % Normal . [facility] Comment on above: Performed By: #### C BC, BMP, MG #### [facility] [address] Eosinophils (Bld) [#/Vol] 0.4 10*3/uL Normal 0.0-0.45 [facility] Comment on above: Performed By: #### C BC, BMP, MG #### [facility] [address] [place] [address] [place] Eosinophils/100 WBC (Bld) 4.5 % Normal . [facility] Comment on above: Performed By: #### C BC, BMP, MG #### [facility] [address] Erythrocyte distribution width (RBC) [Ratio] 15.7 % High 11.9-15.3 [facility] Comment on above: Performed By: #### C BC, BMP, MG #### [address] Hematocrit (Bld) [Volume fraction] 36.2 % Normal 34.0-46.4 [facility] Comment on above: Performed By: #### C BC, BMP, MG #### [facility] [address] Hemoglobin (Bld) [Mass/Vol] 12.1 g/dL Normal 11.8-15.4 [facility] Comment on above: Performed By: #### C BC, BMP, MG #### [address] Lymphocytes (Bld) [#/Vol] 1.5 10*3/uL Normal 1.00-4.8 [facility] Comment on above: Performed By: #### C BC, BMP, MG #### [facility] [address] [place] [address] [place] Lymphocytes/100 WBC (Bld) 16.5 % Normal . [facility] Comment on above: Performed By: #### C BC, BMP, MG #### [facility] [address] [place] [address] [place] MCH (RBC) [Entitic mass] 32.3 pg Normal 24.7-34.3 [facility] Comment on above: Performed By: #### C BC, BMP, MG #### [facility] [address] [place] [address] MCV (RBC) [Entitic vol] 96.7 fL Normal 80-100 [facility] Comment on above: Performed By: #### C BC, BMP, MG #### [facility] [address] Mean Corpuscular HGB Conc 33.4 g/dL Normal 32.0-35.0 [facility] Comment on above: Performed By: #### C BC, BMP, MG #### [facility] [address] Monocytes (Bld) [#/Vol] 0.7 10*3/uL Normal 0.0-0.8 [facility] Comment on above: Performed By: #### C BC, BMP, MG #### [facility] [address] [place] [address] Monocytes/100 WBC (Bld) 8.0 % Normal . [facility] Comment on above: Performed By: #### C BC, BMP, MG #### [facility] [address] [place] [address] Neutrophils (Bld) [#/Vol] 6.6 10*3/uL Normal 1.8-7.7 [facility] Comment on above: Performed By: #### C BC, BMP, MG #### [facility] [address] [place] [address] Neutrophils/100 WBC (Bld) 70.5 % Normal . [facility] Comment on above: Performed By: #### C BC, BMP, MG #### [facility] [address] [place] [address] NRBC% 0.1 /100{WBC} Normal 0-0.5 [facility] Comment on above: Performed By: #### C BC, BMP, MG #### [facility] [address] [place] [address] Platelet mean volume (Bld) [Entitic vol] 6.6 fL Normal 6.3-10.7 [facility] Comment on above: Performed By: #### C BC, BMP, MG #### [facility] [address] [place] [address] [place] Platelets (Bld) [#/Vol] 398 10*3/uL Normal 150-450 [facility] Comment on above: Performed By: #### C BC, BMP, MG #### [facility] [address] [place] [address] RBC (Bld) [#/Vol] 3.75 10*6/uL Normal 3.60-5.00 [facility] Comment on above: Performed By: #### C BC, BMP, MG #### [address] WBC (Bld) [#/Vol] 9.3 10*3/uL Normal 3.8-11.6 [facility] Comment on above: Performed By: #### C BC, BMP, MG #### [address] Glucose Poct Glucometerson 0 03-13-2023 Commemt1 Glu2: Cleaned Meter Normal [facility] Comment on above: Result Comment: PERF ORMED BY: [place] [address] PATHOLOGIST [employer] WAYNE WAKEFIELD M.D. Performed By: #### V ANCT #### [address] Glucose [Mass/Vol] 152 mg/dL Normal [facility] Comment on above: Result Comment: [place] Glucose Reference Range is dependent on time and content of last meal. Glucose of more than 200 mg/dL in a nonstressed, ambulatory subject supports the diagnosis of Diabetes Mellitus. Performed By: #### V ANCT #### [address] Glucose [Mass/Vol] 190 mg/dL Normal [facility] Comment on above: Result Comment: [facility] Glucose Reference Range is dependent on time and content of last meal. Glucose of more than 200 mg/dL in a nonstressed, ambulatory subject supports the diagnosis of Diabetes Mellitus. PERFORMED BY: [place] [address] PATHOLOGIST [employer] WAYNE WAKEFIELD M.D. Performed By: #### G LULS #### Point of Care testing , Glucose [Mass/Vol] 176 mg/dL Normal [facility] Comment on above: Result Comment: [facility] Glucose Reference Range is dependent on time and content of last meal. Glucose of more than 200 mg/dL in a nonstressed, ambulatory subject supports the diagnosis of Diabetes Mellitus. PERFORMED BY: [facility] [address] [place] [address] PATHOLOGIST [employer] WAYNE WAKEFIELD M.D. Performed By: #### G LULS #### Point of Care testing , Glucose [Mass/Vol] 107 mg/dL Normal [facility] Comment on above: Result Comment: [facility] Glucose Reference Range is dependent on time and content of last meal. Glucose of more than 200 mg/dL in a nonstressed, ambulatory subject supports the diagnosis of Diabetes Mellitus. PERFORMED BY: [facility] [address] [place] [address] PATHOLOGIST [employer] WAYNE WAKEFIELD M.D. Performed By: #### G LULS #### Point of Care testing , Glucose [Mass/Vol] 101 mg/dL Normal [facility] Comment on above: Result Comment: [facility] Glucose Reference Range is dependent on time and content of last meal. Glucose of more than 200 mg/dL in a nonstressed, ambulatory subject supports the diagnosis of Diabetes Mellitus. PERFORMED BY: [facility] [address] [place] [address] PATHOLOGIST [employer] WAYNE WAKEFIELD M.D. Performed By: #### G LULS #### Point of Care testing , Serum or plasma trough vanco mycin levelOrdered By: Eron Wood on 03-13-2023 Vancomycin trough [Mass/Vol] 16.8 ug/mL 10.0-20.0 [facility] Comment on above: Last dose: - Vancomycin,Troughon 03-13-20 Vancomycin,Trough 16.8 ug/mL Normal 10.0-20.0 [facility] Comment on above: Result Comment: Last dose: - PERFORMED BY: [facility] [address] [place] [address] PATHOLOGIST [employer] WAYNE WAKEFIELD M.D. Performed By: #### G LULS #### Point of Care testing , Ammoniaon 03-12-2023 Ammonia (P) [Moles/Vol] 31 umol/L Normal [facility] Comment on above: Result Comment: PERF ORMED BY: [facility] [address] [place] [address] PATHOLOGIST [employer] WAYNE WAKEFIELD M.D. Performed By: #### G LULS #### Point of Care testing , Ammonia [Moles/volume] in Pl asmaOrdered By: Víctor Stallings on 03-12-2023 Ammonia (P) [Moles/Vol] 31 umol/L [facility] Amphetamine Screen Ql (U)Ord ered By: Eron Wood on 03-12-2023 Amphetamines Ql (U) Negative Negative [facility] Barbiturates [Presence] in U rine by Screen methodOrdered By: Eron Wood on 03-12-2023 Barbiturates Screen Ql (U) Negative Negative [facility] Basic Metabolic Panelon 02-14 Anion gap [Moles/Vol] 9.5 mmol/L Normal 6.0-15.0 [facility] Comment on above: Performed By: #### G LULS #### Point of Care testing , Calcium [Mass/Vol] 8.2 mg/dL Low 8.6-10.3 [facility] Comment on above: Performed By: #### G LULS #### Point of Care testing , Chloride [Moles/Vol] 109 mmol/L High 98-107 [facility] Comment on above: Performed By: #### G LULS #### Point of Care testing , CO2 [Moles/Vol] 23.3 mmol/L Normal 21.0-31.0 [facility] Comment on above: Performed By: #### G LULS #### Point of Care testing , Creatinine [Mass/Vol] 0.73 mg/dL Normal 0.60-1.20 [facility] Comment on above: Performed By: #### G LULS #### Point of Care testing , Creatinine Clr Calc Pharmacy 111.29 [facility] Comment on above: Result Comment: PERF ORMED BY: [facility] [address] [place] [address] PATHOLOGIST [employer] WAYNE WAKEFIELD M.D. Performed By: #### G LULS #### Point of Care testing , GFR/1.73 sq M.predicted MDRD (S/P/Bld) [Vol rate/Area] mL/min/{1.73_m2} [facility] Comment on above: Performed By: #### G LULS #### Point of Care testing , Glucose [Mass/Vol] 62 mg/dL Low 70-100 [facility] Comment on above: Result Comment: [facility] Glucose Reference Range is dependent on time and content of last meal. Glucose of more than 200 mg/dL in a nonstressed, ambulatory subject supports the diagnosis of Diabetes Mellitus. ADA recommended reference range Performed By: #### G LULS #### Point of Care testing , Potassium [Moles/Vol] 3.8 mmol/L Normal 3.5-5.1 [facility] Comment on above: Performed By: #### G LULS #### Point of Care testing , Sodium [Moles/Vol] 138 mmol/L Normal 136-145 [facility] Comment on above: Performed By: #### G LULS #### Point of Care testing , Urea nitrogen [Mass/Vol] 8 mg/dL Normal 7-25 [facility] Comment on above: Performed By: #### G LULS #### Point of Care testing , Benzodiazepines Screen Ql (U )Ordered By: Eron Wood on 03-12-2023 Benzodiazepines Ql (U) Negative Negative [facility] Benzoylecgonine [Presence] i n Urine by Screen methodOrdered By: Eron Wood on 03-12-2023 Benzoylecgonine Screen Ql (U) Negative Negative [facility] CT head/brain wo conon 03-12 CT head/brain wo [place] [address] CT Scan Report Signed Patient: Christiane Perez MR#: [id number] 2 : 1975 Acct:[id number] Age/Sex: 48 / F ADM Date: 03/10/23 Loc: Room: [address] [place] [address] Type: ADM IN Attending Dr: Eron Wood [...] Vick Eden M.D.03/12/2023 4:47 PM Dictation Location: [place] [address] Transcribed By: [facility] 03/12/23 164 Dictated By: Vick Eden II, MD 03/12/239 Signed By: 03/12/231646 Normal [facility] Calciumon 03-12-2023 Calcium [Mass/Vol] 8.4 mg/dL Low 8.6-10.3 [facility] Comment on above: Result Comment: PERF ORMED BY: [address] [place] [address] PATHOLOGIST [employer] WAYNE WAKEFIELD M.D. Performed By: #### G LULS #### Point of Care testing , Cannabinoids [Presence] in U rine by Screen methodOrdered By: Eron Wood on 03-12-2023 Cannabinoids Screen Ql (U) Negative Negative [facility] Comment on above: These are unconfirme d results and should not be used for legal purposes. Drug Cut-Off Concentration: AMPH 1000 ng/mL HANNAH 200 ng/mL JENNIFER 200 ng/mL COCM 300 ng/mL OP 300 ng/mL PCP 25 ng/mL THC 20 ng/mL Complete Blood Count Auto Di ffon 03-12-2023 Basophils (Bld) [#/Vol] 0.1 10*3/uL Normal 0.0-0.2 [facility] Comment on above: Result Comment: PERF ORMED BY: [facility] [address] [place] [address] PATHOLOGIST [employer] WAYNE WAKEFIELD M.D. Performed By: #### G LULS #### Point of Care testing , Basophils/100 WBC (Bld) 0.7 % Normal . [facility] Comment on above: Performed By: #### G LULS #### Point of Care testing , Eosinophils (Bld) [#/Vol] 0.3 10*3/uL Normal 0.0-0.45 [facility] Comment on above: Performed By: #### G LULS #### Point of Care testing , Eosinophils/100 WBC (Bld) 2.9 % Normal . [facility] Comment on above: Performed By: #### G LULS #### Point of Care testing , Erythrocyte distribution width (RBC) [Ratio] 15.8 % High 11.9-15.3 [facility] Comment on above: Performed By: #### G LULS #### Point of Care testing , Hematocrit (Bld) [Volume fraction] 35.6 % Normal 34.0-46.4 [facility] Comment on above: Performed By: #### G LULS #### Point of Care testing , Hemoglobin (Bld) [Mass/Vol] 11.8 g/dL Normal 11.8-15.4 [facility] Comment on above: Performed By: #### Sophia HERNANDEZLS #### Point of Care testing , Lymphocytes (Bld) [#/Vol] 1.3 10*3/uL Normal 1.00-4.8 [facility] Comment on above: Performed By: #### G MARYLS #### Point of Care testing , Lymphocytes/100 WBC (Bld) 13.5 % Normal . [facility] Comment on above: Performed By: #### G MARYLS #### Point of Care testing , MCH (RBC) [Entitic mass] 32.4 pg Normal 24.7-34.3 [facility] Comment on above: Performed By: #### G MARYLS #### Point of Care testing , MCV (RBC) [Entitic vol] 97.7 fL Normal 80-100 [facility] Comment on above: Performed By: #### Sophia HERNANDEZLS #### Point of Care testing , Mean Corpuscular HGB Conc 33.1 g/dL Normal 32.0-35.0 [facility] Comment on above: Performed By: #### Sophia GARVEY #### Point of Care testing , Monocytes (Bld) [#/Vol] 0.9 10*3/uL High 0.0-0.8 [facility] Comment on above: Performed By: #### G MARYLS #### Point of Care testing , Monocytes/100 WBC (Bld) 9.2 % Normal . [facility] Comment on above: Performed By: #### G MARYLS #### Point of Care testing , Neutrophils (Bld) [#/Vol] 7.2 10*3/uL Normal 1.8-7.7 [facility] Comment on above: Performed By: #### G MARYLS #### Point of Care testing , Neutrophils/100 WBC (Bld) 73.7 % Normal . [facility] Comment on above: Performed By: #### G MARYLS #### Point of Care testing , NRBC% 0.1 /100{WBC} Normal 0-0.5 [facility] Comment on above: Performed By: #### G LULS #### Point of Care testing , Platelet mean volume (Bld) [Entitic vol] 6.8 fL Normal 6.3-10.7 [facility] Comment on above: Performed By: #### G LULS #### Point of Care testing , Platelets (Bld) [#/Vol] 342 10*3/uL Normal 150-450 [facility] Comment on above: Performed By: #### G LULS #### Point of Care testing , RBC (Bld) [#/Vol] 3.64 10*6/uL Normal 3.60-5.00 [facility] Comment on above: Performed By: #### G LULS #### Point of Care testing , WBC (Bld) [#/Vol] 9.8 10*3/uL Normal 3.8-11.6 [facility] Comment on above: Performed By: #### G MARE #### Point of Care testing , Drug Screen,Urineon 03-12-20 23 Amphetamine Screen,Urine Negative Normal Negative [facility] Comment on above: Performed By: #### C BC, BMP, MG #### [facility] [address] [place] [address] Barbiturate Screen,Urine Negative Normal Negative [facility] Comment on above: Performed By: #### C BC, BMP, MG #### [facility] [address] [place] [address] [place] Benzodiazepines Screen,Urine Negative Normal Negative [facility] Comment on above: Performed By: #### C BC, BMP, MG #### [facility] [address] [place] [address] [place] Cannabinoid Screen,Urine Negative Normal Negative [facility] Comment on above: Result Comment: Thes e are unconfirmed results and should not be used for legal purposes. Drug Cut-Off Concentration: AMPH 1000 ng/mL HANNAH 200 ng/mL JENNIFER 200 ng/mL COCM 300 ng/mL OP 300 ng/mL PCP 25 ng/mL THC 20 ng/mL PERFORMED BY: [place] [address] PATHOLOGIST [employer] WAYNE WAKEFIELD M.D. Performed By: #### C BC, BMP, MG #### [facility] [address] [place] [address] [place] Cocaine Screen,Urine Negative Normal Negative [facility] Comment on above: Performed By: #### C BC, BMP, MG #### [facility] [address] [place] [address] [place] Opiate Screen,Urine Positive High Negative [facility] Comment on above: Performed By: #### C BC, BMP, MG #### [facility] [address] Phencyclidine Screen,Urine Negative Normal Negative [facility] Comment on above: Performed By: #### C BC, BMP, MG #### [address] Glucose Poct Glucometerson 0 03-12-2023 Commemt1 Glu2: Cleaned Meter Normal [facility] Comment on above: Result Comment: PERF ORMED BY: [place] [address] PATHOLOGIST [employer] WAYNE WAKEFIELD M.D. Performed By: #### C BC, BMP, MG #### [address] Glucose [Mass/Vol] 199 mg/dL Normal [facility] Comment on above: Result Comment: [facility] Glucose Reference Range is dependent on time and content of last meal. Glucose of more than 200 mg/dL in a nonstressed, ambulatory subject supports the diagnosis of Diabetes Mellitus. Performed By: #### C BC, BMP, MG #### [facility] [address] [place] [address] Glucose [Mass/Vol] 158 mg/dL Normal [facility] Comment on above: Result Comment: [facility] Glucose Reference Range is dependent on time and content of last meal. Glucose of more than 200 mg/dL in a nonstressed, ambulatory subject supports the diagnosis of Diabetes Mellitus. PERFORMED BY: [facility] [address] [place] [address] PATHOLOGIST [employer] WAYNE WAKEFIELD M.D. Performed By: #### G LULS #### Point of Care testing , Glucose [Mass/Vol] 152 mg/dL Normal [facility] Comment on above: Result Comment: [facility] Glucose Reference Range is dependent on time and content of last meal. Glucose of more than 200 mg/dL in a nonstressed, ambulatory subject supports the diagnosis of Diabetes Mellitus. PERFORMED BY: [address] [place] [id number] PATHOLOGIST [employer] WAYNE WAKEFIELD M.D. Performed By: #### G LULS #### Point of Care testing , Commemt1 Glu2: Cleaned Meter Normal [facility] Comment on above: Result Comment: PERF ORMED BY: [address] [place] [address] PATHOLOGIST [employer] WAYNE WAKEFIELD M.D. Performed By: #### G LULS #### Point of Care testing , Glucose [Mass/Vol] 75 mg/dL Normal [facility] Comment on above: Result Comment: [facility] Glucose Reference Range is dependent on time and content of last meal. Glucose of more than 200 mg/dL in a nonstressed, ambulatory subject supports the diagnosis of Diabetes Mellitus. Performed By: #### G LULS #### Point of Care testing , Opiates [Presence] in Urine by Screen methodOrdered By: Eron Wood on 03-12-2023 Opiates Screen Ql (U) Positive Negative [facility] Phencyclidine Screen Ql (U)O rdered By: Eron Wood on 03-12-2023 Phencyclidine Ql (U) Negative Negative [facility] Vancomycin [Mass/volume] in Serum or Plasma --peakOrdered By: Eron Wood on 03-12-2023 Vancomycin peak [Mass/Vol] 14.6 ug/mL 20.0-40.0 [facility] Comment on above: Last dose: - Vancomycin,Peakon 03-12-2023 Vancomycin,Peak 14.6 ug/mL Low 20.0-40.0 [facility] Comment on above: Order Comment: Comme nt ?DRAW 1 HOUR AFTER INFUSION COMPLETES Date of last dose?: [id number] Time of last dose?: 1500 Result Comment: Last dose: - PERFORMED BY: [place] [address] PATHOLOGIST [employer] WAYNE WAKEFIELD M.D. Performed By: #### G LULS #### Point of Care testing , Vancomycin,Troughon 03-12-20 Vancomycin,Trough 17.8 ug/mL Normal 10.0-20.0 [facility] Comment on above: Result Comment: Last dose: - PERFORMED BY: [place] [address] PATHOLOGIST [employer] WAYNE WAKEFIELD M.D. Performed By: #### V ANCT #### [address] XR chest 1V portableon 03-12 XR chest 1V portable [facility] [place] [address] [place] [address] XRay Report Signed Patient: Christiane Perez MR#: [id number] 2 : 1975 Acct:[id number] Age/Sex: 48 / F ADM Date: 03/10/23 Loc: Room: [address] [place] [address] Type: ADM IN Attending Dr: Eron Wood [...] chest. This is unchanged. Impression dictated by: Vikc Eden M.D.03/12/2023 4:19 PM Dictation Location: RADIO-PC-13 Transcribed By: CHARLI 03/12/23 1619 Dictated By: Vick Eden II, MD 03/12/231616 Signed By: 03/12/23 161 [facility] XR chest 1V portable [place] [address] XRay Report Signed Patient: Christiane Perez MR#: [id number] 2 : 1975 Acct:[id number] Age/Sex: 48 / F ADM Date: 03/10/23 Loc: Room: [address] [place] [address] Type: ADM IN Attending Dr: Eron Wood [...] MD 03/12/23 135 Signed By: 03/12/23 135 [facility] AFB Specimen Processingon AFB Specimen Processing Concentration Negative Performed at: [address] [id number] Chief Radiologic Technologist: Juan Jennings PhD, Phone: [phone] Negative No acid fast bacilli isolated after 6 weeks. Performed at: [address] [id number] Chief Radiologic Technologist: Juan Jennings PhD, Phone: [phone] PERFORMED BY: [place] [address] PATHOLOGIST [employer] WAYNE WAKEFIELD M.D. [facility] Comment on above: Performed By: #### G LULS #### Point of Care testing , Aerobic Cultureon 03-11-2023 Aerobic Culture ORGANISM: Janine tropicalis (O:CANTRO) Quantity of Growth Light Growth ORGANISM: Janine albicans (O:CANALB) Quantity of Growth Light Growth Gram Stain Result 1+ White Blood Cells Rare Epithelial Cells Rare Gram Positive Bacilli Rare Gram Positive Cocci 1+ Yeast Like Elements PERFORMED BY: [place] [address] PATHOLOGIST [employer] WAYNE WAKEFIELD M.D. [facility] Comment on above: Performed By: #### A ERC #### [facility] [address] [place] [address] [place] Bacteria identified Aer cx N om (Bronch spec)Ordered By: Errol Nicole on 03-11-2023 Bronchial Culture Janine tropicalis [facility] Bronchial Culture Janine albicans F [facility] Basic Metabolic Panelon 02-14 Anion gap [Moles/Vol] 8.9 mmol/L Normal 6.0-15.0 [facility] Comment on above: Performed By: #### C BC, BMP, MG #### [facility] [address] [place] [address] [place] Calcium [Mass/Vol] 8.4 mg/dL Low 8.6-10.3 [facility] Comment on above: Performed By: #### C BC, BMP, MG #### [facility] [address] [place] [address] [place] Chloride [Moles/Vol] 107 mmol/L Normal 98-107 [facility] Comment on above: Performed By: #### C BC, BMP, MG #### [facility] [address] [place], [place] [address] [place] CO2 [Moles/Vol] 25.0 mmol/L Normal 21.0-31.0 [facility] Comment on above: Performed By: #### C BC, BMP, MG #### [facility] [address] [place] [address] [place] Creatinine [Mass/Vol] 0.72 mg/dL Normal 0.60-1.20 [facility] Comment on above: Performed By: #### C BC, BMP, MG #### [facility] [address] [place] [address] [place] Creatinine Clr Calc Pharmacy 112.35 [facility] Comment on above: Performed By: #### C BC, BMP, MG #### [facility] [address] [place] [address] [place] GFR/1.73 sq M.predicted MDRD (S/P/Bld) [Vol rate/Area] mL/min/{1.73_m2} [facility] Comment on above: Performed By: #### C BC, BMP, MG #### [facility] [address] Glucose [Mass/Vol] 120 mg/dL High 70-100 [facility] Comment on above: Result Comment: [facility] Glucose Reference Range is dependent on time and content of last meal. Glucose of more than 200 mg/dL in a nonstressed, ambulatory subject supports the diagnosis of Diabetes Mellitus. ADA recommended reference range Performed By: #### C BC, BMP, MG #### [facility] [address] [place] [address] [place] Potassium [Moles/Vol] 3.9 mmol/L Normal 3.5-5.1 [facility] Comment on above: Performed By: #### C BC, BMP, MG #### [facility] [address] [place] [address] [place] Sodium [Moles/Vol] 137 mmol/L Normal 136-145 [facility] Comment on above: Performed By: #### C BC, BMP, MG #### [facility] [address] [place] [address] [place] Urea nitrogen [Mass/Vol] 10 mg/dL Normal 7-25 [facility] Comment on above: Performed By: #### C BC, BMP, MG #### [address] Bronch Cultureon 03-11-2023 Bronch Culture ORGANISM: Janine tropicalis (O:CANTRO) Quantity of Growth Light Growth ORGANISM: Janine albicans (O:CANALB) Quantity of Growth Light Growth PERFORMED BY: [place] [address] PATHOLOGIST [employer] WAYNE WAKEFIELD M.D. Normal [facility] Comment on above: Performed By: #### G LULS #### Point of Care testing , Complete Blood Count Auto Di ffon 03-11-2023 Basophils (Bld) [#/Vol] 0.0 10*3/uL Normal 0.0-0.2 [facility] Comment on above: Result Comment: PERF ORMED BY: [place] [address] PATHOLOGIST [employer] WAYNE WAKEFIELD M.D. Performed By: #### C BC, BMP, MG #### [address] Basophils/100 WBC (Bld) 0.3 % Normal . [facility] Comment on above: Performed By: #### C BC, BMP, MG #### [address] Eosinophils (Bld) [#/Vol] 0.2 10*3/uL Normal 0.0-0.45 [facility] Comment on above: Performed By: #### C BC, BMP, MG #### [address] Eosinophils/100 WBC (Bld) 2.1 % Normal . [facility] Comment on above: Performed By: #### C BC, BMP, MG #### [address] Erythrocyte distribution width (RBC) [Ratio] 15.9 % High 11.9-15.3 [facility] Comment on above: Performed By: #### C BC, BMP, MG #### [address] Hematocrit (Bld) [Volume fraction] 36.2 % Normal 34.0-46.4 [facility] Comment on above: Performed By: #### C DANIELE BMP, MG #### [address] Hemoglobin (Bld) [Mass/Vol] 11.9 g/dL Normal 11.8-15.4 [facility] Comment on above: Performed By: #### C DANIELE BMP, MG #### [address] Lymphocytes (Bld) [#/Vol] 1.1 10*3/uL Normal 1.00-4.8 [facility] Comment on above: Performed By: #### C DANIELE BMP, MG #### [address] Lymphocytes/100 WBC (Bld) 9.5 % Normal . [facility] Comment on above: Performed By: #### C DANIELE BMP, MG #### [address] MCH (RBC) [Entitic mass] 31.9 pg Normal 24.7-34.3 [facility] Comment on above: Performed By: #### C DANIELE BMP, MG #### [address] MCV (RBC) [Entitic vol] 97.5 fL Normal 80-100 [facility] Comment on above: Performed By: #### C BC BMP, MG #### [address] Mean Corpuscular HGB Conc 32.8 g/dL Normal 32.0-35.0 [facility] Comment on above: Performed By: #### C BC BMP, MG #### [address] Monocytes (Bld) [#/Vol] 1.0 10*3/uL High 0.0-0.8 [facility] Comment on above: Performed By: #### C BC BMP, MG #### [facility] [address] [place] [address] [place] Monocytes/100 WBC (Bld) 8.9 % Normal . [facility] Comment on above: Performed By: #### C BC, BMP, MG #### [facility] [address] [place] [address] [place] Neutrophils (Bld) [#/Vol] 9.3 10*3/uL High 1.8-7.7 [facility] Comment on above: Performed By: #### C BC, BMP, MG #### [facility] [address] Neutrophils/100 WBC (Bld) 79.2 % Normal . [facility] Comment on above: Performed By: #### C BC, BMP, MG #### [facility] [address] NRBC% 0.0 /100{WBC} Normal 0-0.5 [facility] Comment on above: Performed By: #### C BC, BMP, MG #### [facility] [address] Platelet mean volume (Bld) [Entitic vol] 7.1 fL Normal 6.3-10.7 [facility] Comment on above: Performed By: #### C BC, BMP, MG #### [facility] [address] [place] [address] [place] Platelets (Bld) [#/Vol] 360 10*3/uL Normal 150-450 [facility] Comment on above: Performed By: #### C BC, BMP, MG #### [facility] [address] [place] [address] [place] RBC (Bld) [#/Vol] 3.72 10*6/uL Normal 3.60-5.00 [facility] Comment on above: Performed By: #### C BC, BMP, MG #### [facility] [address] [place] [address] [place] WBC (Bld) [#/Vol] 11.7 10*3/uL High 3.8-11.6 [facility] Comment on above: Performed By: #### C BC, BMP, MG #### [address] Fungal cultureOrdered By: Corrina Nicole on 03-11-2023 Fungus identified Cx Nom (Unsp spec) [facility] Fungus # 2 identified in Uns pecified specimen by CultureOrdered By: Errol Nicole on 03-11-2023 Fungus identified # 2 Cx Nom (Unsp spec) [facility] Fungus # 3 identified in Uns pecified specimen by CultureOrdered By: Errol Nicole on 03-11-2023 Fungus identified # 3 Cx Nom (Unsp spec) [facility] Fungus (Mycology) Cultureon 03-11-2023 Fungus (Mycology) Culture Preliminary report Final report Janine glabrata Janine tropicalis Performed at: [place] [address] Chief Radiologic Technologist: Juan Jennings PhD, Phone: [phone] Janine albicans Performed at: [place] [address] Chief Radiologic Technologist: Juan Jennings PhD, Phone: [phone] PERFORMED BY: [place] [address] PATHOLOGIST [employer] WAYNE WAKEFIELD M.D. [facility] Comment on above: Performed By: #### G LULS #### Point of Care testing , Fungus (Mycology) Result 2on 03-11-2023 Fungus (Mycology) Result 2 Janine tropicalis Performed at: [place] [address] Chief Radiologic Technologist: Juan Jennings PhD, Phone: [phone] Janine albicans Performed at: [place] [address] Chief Radiologic Technologist: Juan Jennings PhD, Phone: [phone] PERFORMED BY: [facility] [address] [place] [address] PATHOLOGIST [employer] WAYNE WAKEFIELD M.D. [facility] Comment on above: Performed By: #### G LULS #### Point of Care testing , Glucose Poct Glucometerson 0 03-11-2023 Commemt1 Glu2: Cleaned Meter [facility] Comment on above: Result Comment: PERF ORMED BY: [address] [place] [address] PATHOLOGIST [employer] WAYNE WAKEFIELD M.D. Performed By: #### G LULS #### Point of Care testing , Glucose [Mass/Vol] 121 mg/dL Normal [facility] Comment on above: Result Comment: [facility] Glucose Reference Range is dependent on time and content of last meal. Glucose of more than 200 mg/dL in a nonstressed, ambulatory subject supports the diagnosis of Diabetes Mellitus. Performed By: #### G LULS #### Point of Care testing , Commemt1 Glu2: Cleaned Meter [facility] Comment on above: Result Comment: PERF ORMED BY: [address] [place] [address] PATHOLOGIST [employer] WAYNE WAKEFIELD M.D. Performed By: #### G LULS #### Point of Care testing , Glucose [Mass/Vol] 80 mg/dL Normal [facility] Comment on above: Result Comment: [facility] Glucose Reference Range is dependent on time and content of last meal. Glucose of more than 200 mg/dL in a nonstressed, ambulatory subject supports the diagnosis of Diabetes Mellitus. Performed By: #### G LULS #### Point of Care testing , Glucose [Mass/Vol] 134 mg/dL [facility] Comment on above: Result Comment: [facility] Glucose Reference Range is dependent on time and content of last meal. Glucose of more than 200 mg/dL in a nonstressed, ambulatory subject supports the diagnosis of Diabetes Mellitus. PERFORMED BY: [address] [address] PATHOLOGIST [employer] HEAD WAYNE WAKEFIELD M.D. Performed By: #### G LULS #### Point of Care testing , Commemt1 [facility] Comment on above: Result Comment: Glu2 : WILL NOTIFY DR/RN PERFORMED BY: [address] [place] [address] PATHOLOGIST [employer] HEAD WAYNE WAKEFIELD M.D. Performed By: #### G LULS #### Point of Care testing , Glucose [Mass/Vol] 58 mg/dL Off scale low [facility] Comment on above: Result Comment: [facility] Glucose Reference Range is dependent on time and content of last meal. Glucose of more than 200 mg/dL in a nonstressed, ambulatory subject supports the diagnosis of Diabetes Mellitus. Performed By: #### G LULS #### Point of Care testing , Commemt1 Glu2: Cleaned Meter Normal [facility] Comment on above: Result Comment: PERF ORMED BY: [address] [place] [place] [address] PATHOLOGIST [employer] HEAD WAYNE WAKEFIELD M.D. Performed By: #### G LULS #### Point of Care testing , Glucose [Mass/Vol] 249 mg/dL Normal [facility] Comment on above: Result Comment: [facility] Glucose Reference Range is dependent on time and content of last meal. Glucose of more than 200 mg/dL in a nonstressed, ambulatory subject supports the diagnosis of Diabetes Mellitus. Performed By: #### G LULS #### Point of Care testing , Glucose [Mass/Vol] 138 mg/dL Normal [facility] Comment on above: Result Comment: [facility] Glucose Reference Range is dependent on time and content of last meal. Glucose of more than 200 mg/dL in a nonstressed, ambulatory subject supports the diagnosis of Diabetes Mellitus. PERFORMED BY: [address] [place] [address] PATHOLOGIST [employer] WAYNE WAKEFIELD M.D. Performed By: #### G LULS #### Point of Care testing , Gram Stainon 03-11-2023 Microscopic observation Gram stain Nom (Unsp spec) Gram Stain Result 1+ White Blood Cells 1+ Yeast Like Elements No Bacteria Seen Fungus Smear Results 1+ Yeast Like Elements Seen PERFORMED BY: [address] [place] [id number] PATHOLOGIST [employer] WAYNE WAKEFIELD M.D. [facility] Comment on above: Performed By: #### G MARE #### Point of Care testing , [place] 03-11-2023 L ----- Specimen: [id number] Received: 03/12/23 Status: DAY St Num: [id number] Spec Type: Cytology Subm Dr: Errol Nicole MD Tissues: A BRONWASH ([facility]) Procedures: HE/2, Gross/Micro L4, Cyto Prepstain, PAPSTN Age/ Patient Sex Location Account Attending Physician Christiane Perez 48/F [id number] Krunal Kelly DO SPEC NUM: [id number] RECD: 03/12/23 STATUS: DAY ST NUM: [id number] HARRY: 03/11/[address]: Errol Nicole MD ENTERED: 03/12/23 [facility] DR: SPEC TYPE: Cytology DEPT: CNG ENTERED BY: [id number] RECV BY: [id number] ORDERED: HE/2, Gross/Micro L4, Cyto Prepstain, PAPSTN ORDERED: HE/2, Gross/Micro L4, Cyto Prepstain, PAPSTN Pathological Diagnosis Bronchial wash, cytology: - Negative for malignancy, inflammatory process - See note and pathology report [id number] Note: Smear and cell block shows many [...] [id number] Received: 03/12/23 Status: DAY Martioscar Num: [id number] Spec Type: Cytology Subm Dr: Errol Nicole MD Tissues: A BRONWASH ([facility]) Procedures: HE/2, Gross/Micro L4, Cyto Prepstain, PAPSTN Patient: Christiane Perez Neto [id number] (Continued) Signed (signature on file) Gregory Aranda MD 03/17/23820 [facility] L ----- Specimen: [id number] Received: 03/11/23 Status: DAY St Num: [id number] Spec Type: Surgical Subm Dr: Errol Nicole MD Tissues: A Lung - Transbroncial Biopsy ([facility] BX) Procedures: ISIDRA SONG, HE/5, Gross/Micro L4, GMS II ARMANI Oquendo Age/ Patient Sex Location Account Attending Physician Christiane Perez 48/F 3T [id number] Krunal Kelly DO SPEC NUM: [id number] RECD: 03/11/23 STATUS: DAY REOscar NUM: [id number] HARRY: 03/11/23- SUBM DR: Errol Nicole MD [...] This case will send to the [facility] for consultation and second opinion and the result will be reported as an addendum. Specimen: [id number] Received: 03/11/23 Status: DAY St Num: [id number] Spec Type: Surgical Subm Dr: Errol Nicole MD Tissues: A Lung - Transbroncial Biopsy ([facility] BX) Procedures: PAS - LGRN, HE/5, Gross/Micro L4, GMS II Dark, AFB Patient: PerezChristiane [id number] (Continued) Specimen: [id number] Received: 03/11/23 (Continued) Signed (signature on file) Gregory Aranda MD 03/17/23811 Specimen: [id number] Received: 03/11/23 Status: DAY St Num: [id number] Spec Type: Surgical Subm Dr: Errol Nicole MD Tissues: A Lung - Transbroncial Biopsy ([facility] BX) Procedures: ISIDRA - NOHEMI, HE/5, Gross/Micro L4, GMS II Dark, AFB Patient: Christiane Perez [id number] (Continued) Specimen: [id number] Received: 03/11/23 (Continued) Clinical Information Abscess Gross Description Received in formalin labeled with the patient's name, date of and [facility] biopsies are multiple villegas tissues measuring 1.5 x 0.3 x 0.2 cm in aggregate. Entirely submitted in one cassette labeled A1. Microscopic Description Two H E slides reviewed. The microscopic examination confirms the diagnosis. CPT Codes 47022 Specimen: [id number] Received: 03/11/23 Status: DAY Martioscar Num: [id number] Spec Type: Surgical Subm Dr: Errol Nicole MD Tissues: A Lung - Transbroncial Biopsy ([facility] BX) Procedures: ISIDRA SONG, HE/5, Gross/Micro L4, GMS II ARMANI Oquendo Patient: Christiane Perez [id number] (Continued) Signed (signature on file) Gregory Aranda MD 03/17/23811 Normal [facility] Magnesiumon 03-11-2023 Magnesium [Mass/Vol] 1.9 mg/dL Normal 1.9-2.7 [facility] Comment on above: Result Comment: PERF ORMED BY: [place] [address] PATHOLOGIST [employer] WAYNE WAKEFIELD M.D. Performed By: #### C BC, BMP, MG #### [facility] [address] [place], [place] [id number] [facility] Magnesium [Mass/volume] in S kaitlin or PlasmaOrdered By: Eron Wood on 03-11-2023 Magnesium [Mass/Vol] 1.9 mg/dL 1.9-2.7 [facility] Vancomycin,Peakon 03-11-2023 Vancomycin,Peak 12.5 ug/mL Low 20.0-40.0 [facility] Comment on above: Order Comment: Comme nt ?DRAW 1 HOUR AFTER INFUSION COMPLETES Date of last dose?: [id number] Time of last dose?: 1500 Result Comment: Last dose: - PERFORMED BY: [place] [address] PATHOLOGIST [employer] WAYNE WAKEFIELD M.D. Performed By: #### G MARE #### Point of Care testing , Activated partial thrombopla stin time (aPTT) in platelet poor plasma by coagulation aOrdered By: Lavell Salazar on 03-10-2023 aPTT Coag (PPP) [Time] 40.2 s 25.1-36.5 [facility] B-Type Natriuretic Peptideon 03-10-2023 Natriuretic peptide B (Bld) [Mass/Vol] 46.0 pg/mL Normal 5-100 [facility] Comment on above: Result Comment: PERF ORMED BY: [place] [address] PATHOLOGIST [employer] WAYNE WAKEFIELD M.D. Performed By: #### C BC, BMP, MG #### [facility] [address] [place] [address] [facility] Bacterial blood cultureOrder ed By: Lavell Salazar on 03-10-2023 Bacteria identified Cx Nom (Bld) NO GROWTH 5 DAYS [facility] Basic Metabolic Panelon 02-14 Anion gap [Moles/Vol] 11.3 mmol/L Normal 6.0-15.0 [facility] Comment on above: Performed By: #### C BC, BMP, MG #### [facility] [address] Calcium [Mass/Vol] 8.9 mg/dL Normal 8.6-10.3 [facility] Comment on above: Performed By: #### C BC, BMP, MG #### [facility] [address] [place] [address] [place] Chloride [Moles/Vol] 103 mmol/L Normal 98-107 [facility] Comment on above: Performed By: #### C BC, BMP, MG #### [facility] [address] CO2 [Moles/Vol] 24.2 mmol/L Normal 21.0-31.0 [facility] Comment on above: Performed By: #### C BC, BMP, MG #### [facility] [address] [place] [address] [place] Creatinine [Mass/Vol] 0.70 mg/dL Normal 0.60-1.20 [facility] Comment on above: Performed By: #### C BC, BMP, MG #### [facility] [address] [place] [address] [place] Creatinine Clr Calc Pharmacy 117.33 [facility] Comment on above: Result Comment: PERF ORMED BY: [place] [address] PATHOLOGIST [employer] WAYNE WAKEFIELD M.D. Performed By: #### C BC, BMP, MG #### [facility] [address] [place] [address] [place] GFR/1.73 sq M.predicted MDRD (S/P/Bld) [Vol rate/Area] mL/min/{1.73_m2} [facility] Comment on above: Performed By: #### C BC, BMP, MG #### [facility] [address] Glucose [Mass/Vol] 69 mg/dL Low 70-100 [facility] Comment on above: Result Comment: [facility] Glucose Reference Range is dependent on time and content of last meal. Glucose of more than 200 mg/dL in a nonstressed, ambulatory subject supports the diagnosis of Diabetes Mellitus. ADA recommended reference range Performed By: #### C BC, BMP, MG #### [facility] [address] Potassium [Moles/Vol] 3.5 mmol/L Normal 3.5-5.1 [facility] Comment on above: Performed By: #### C BC, BMP, MG #### [address] Sodium [Moles/Vol] 135 mmol/L Low 136-145 [facility] Comment on above: Performed By: #### C BC, BMP, MG #### [address] Urea nitrogen [Mass/Vol] 10 mg/dL Normal 7-25 [facility] Comment on above: Performed By: #### C BC BMP, MG #### [place] [address] [place] Bilirubin.direct [Mass/volum e] in Serum or PlasmaOrdered By: Lavell Salazar on 03-10-2023 Bilirubin.direct [Mass/Vol] 0.20 mg/dL 0.03-0.18 [facility] Blood Cultureon 03-10-2023 Bacteria identified Cx Nom (Bld) NO GROWTH 5 DAYS PERFORMED BY: [place] [address] PATHOLOGIST [employer] WAYNE WAKEFIELD M.D. [facility] Comment on above: Performed By: #### C BC, BMP, MG #### [address] Bacteria identified Cx Nom (Bld) NO GROWTH 5 DAYS PERFORMED BY: [address] [place] [address] PATHOLOGIST [employer] WAYNE WAKEFIELD M.D. [facility] Comment on above: Performed By: #### C DANIELE, JOE, #### [place] [id number] [facility] CT chest w conon 03-10-2023 CT chest w con [facility] [place] [address] [place] [address] CT Scan Report Signed Patient: Christiane Perez MR#: [id number] 2 : 1975 Acct:[id number] Age/Sex: 48 / F ADM Date: 03/10/23 Loc: ER Room: Type: [facility] ER Attending Dr: Copies to: Lavell Salazar DO Ordering Provider: Lavell Salaazr DO Date of Service: 03/10/23 CT/CT chest [...] Giovanny Cleveland M.D.03/10/2023 2:30 PM Dictation Location: [place] [address] Transcribed By: [facility] 03/10/23 1430 Dictated By: Giovanny [place] DO 03/10/23 1421 Signed By: 03/10/23 1430 Normal [facility] Complete Blood Count Auto Di ffon 03-10-2023 Basophils (Bld) [#/Vol] 0.0 10*3/uL Normal 0.0-0.2 [facility] Comment on above: Result Comment: PERF ORMED BY: [facility] [address] [place] [address] PATHOLOGIST [employer] WAYNE WAKEFIELD M.D. Performed By: #### G LULS #### Point of Care testing , Basophils/100 WBC (Bld) 0.2 % Normal . [facility] Comment on above: Performed By: #### G LULS #### Point of Care testing , Eosinophils (Bld) [#/Vol] 0.2 10*3/uL Normal 0.0-0.45 [facility] Comment on above: Performed By: #### G LULS #### Point of Care testing , Eosinophils/100 WBC (Bld) 1.1 % Normal . [facility] Comment on above: Performed By: #### G LULS #### Point of Care testing , Erythrocyte distribution width (RBC) [Ratio] 15.4 % High 11.9-15.3 [facility] Comment on above: Performed By: #### G LULS #### Point of Care testing , Hematocrit (Bld) [Volume fraction] 38.1 % Normal 34.0-46.4 [facility] Comment on above: Performed By: #### G LULS #### Point of Care testing , Hemoglobin (Bld) [Mass/Vol] 12.8 g/dL Normal 11.8-15.4 [facility] Comment on above: Performed By: #### G LULS #### Point of Care testing , Lymphocytes (Bld) [#/Vol] 1.0 10*3/uL Normal 1.00-4.8 [facility] Comment on above: Performed By: #### G MARYLS #### Point of Care testing , Lymphocytes/100 WBC (Bld) 5.7 % Normal . [facility] Comment on above: Performed By: #### G MARYLS #### Point of Care testing , MCH (RBC) [Entitic mass] 32.6 pg Normal 24.7-34.3 [facility] Comment on above: Performed By: #### G MARYLS #### Point of Care testing , MCV (RBC) [Entitic vol] 97.2 fL Normal 80-100 [facility] Comment on above: Performed By: #### G MARYLS #### Point of Care testing , Mean Corpuscular HGB Conc 33.5 g/dL Normal 32.0-35.0 [facility] Comment on above: Performed By: #### G MARYLS #### Point of Care testing , Monocytes (Bld) [#/Vol] 1.2 10*3/uL High 0.0-0.8 [facility] Comment on above: Performed By: #### Sophia HERNANDEZLS #### Point of Care testing , Monocytes/100 WBC (Bld) 24.68 % High 0.00-20.00 [facility] Comment on above: Result Comment: For adults in ED, MDW > 20.0 may be associated with a higher risk of sepsis during the first 12 hrs of hospital admission Performed By: #### G MARYLS #### Point of Care testing , Monocytes/100 WBC (Bld) 7.2 % Normal . [facility] Comment on above: Performed By: #### G MARYLS #### Point of Care testing , Neutrophils (Bld) [#/Vol] 14.2 10*3/uL High 1.8-7.7 [facility] Comment on above: Performed By: #### G MARYLS #### Point of Care testing , Neutrophils/100 WBC (Bld) 85.8 % Normal . [facility] Comment on above: Performed By: #### G LULS #### Point of Care testing , NRBC% 0.1 /100{WBC} Normal 0-0.5 [facility] Comment on above: Performed By: #### G MARYLS #### Point of Care testing , Platelet mean volume (Bld) [Entitic vol] 7.2 fL Normal 6.3-10.7 [facility] Comment on above: Performed By: #### G MARYLS #### Point of Care testing , Platelets (Bld) [#/Vol] 410 10*3/uL Normal 150-450 [facility] Comment on above: Performed By: #### G MARE #### Point of Care testing , RBC (Bld) [#/Vol] 3.92 10*6/uL Normal 3.60-5.00 [facility] Comment on above: Performed By: #### G MARYLS #### Point of Care testing , WBC (Bld) [#/Vol] 16.6 10*3/uL High 3.8-11.6 [facility] Comment on above: Performed By: #### G MARE #### Point of Care testing , Creatine Kinaseon 03-10-2023 CK [Catalytic activity/Vol] 23 U/L Low 30-223 [facility] Comment on above: Performed By: #### C BC, BMP, MG #### [address] Creatine kinase [Enzymatic a ctivity/volume] in Serum or PlasmaOrdered By: Lavell Salazar on 03-10-2023 CK [Catalytic activity/Vol] 23 U/L 30-223 [facility] ECG 12 lead ECGon 03-10-2023 ECG 12 lead ECG [place] [address] Electrocardiograph Report Signed Patient: Christiane Perez MR#: [id number] 2 : 1975 Acct:[id number] Age/Sex: 48 / F ADM Date: 03/10/23 Loc: ER Room: Type: [facility] ER Attending Dr: Ordering Provider: Lavell Salazar, [...] has shortened Confirmed by Lavell Salazar DO ([id number]) on 03/10/2023 3:09:19 PM Referred By: Electronically Signed By:Lavell Salazar DO Transcribed By: MUS Signed By Lavell Salazar DO 3 1509 Normal [facility] Glucose Poct Glucometerson 0 03-10-2023 Glucose [Mass/Vol] 129 mg/dL Normal [facility] Comment on above: Result Comment: [facility] Glucose Reference Range is dependent on time and content of last meal. Glucose of more than 200 mg/dL in a nonstressed, ambulatory subject supports the diagnosis of Diabetes Mellitus. PERFORMED BY: [address] [place] [address] PATHOLOGIST [employer] WAYNE WAKEFIELD M.D. Performed By: #### G LULS #### Point of Care testing , Commemt1 Glu2: Cleaned Meter Normal [facility] Comment on above: Result Comment: PERF ORMED BY: [facility] [address] [place] [address] PATHOLOGIST [employer] WAYNE WAKEFIELD M.D. Performed By: #### G LULS #### Point of Care testing , Glucose [Mass/Vol] 176 mg/dL Normal [facility] Comment on above: Result Comment: [facility] Glucose Reference Range is dependent on time and content of last meal. Glucose of more than 200 mg/dL in a nonstressed, ambulatory subject supports the diagnosis of Diabetes Mellitus. Performed By: #### G LULS #### Point of Care testing , Hepatic Panelon 03-10-2023 Albumin [Mass/Vol] 3.3 g/dL Low 3.5-5.7 [facility] Comment on above: Performed By: #### C BC, BMP, MG #### [facility] [address] [place] [address] Albumin/Globulin [Mass ratio] 0.9 {ratio} [facility] Comment on above: Performed By: #### C BC, BMP, MG #### [facility] [address] [place] [address] ALP [Catalytic activity/Vol] 110 U/L High 34-104 [facility] Comment on above: Performed By: #### C BC, BMP, MG #### [facility] [address] [place] [address] ALT [Catalytic activity/Vol] 6 U/L Low 7-52 [facility] Comment on above: Performed By: #### C BC, BMP, MG #### [facility] [address] [place] [address] AST [Catalytic activity/Vol] 10 U/L Low 13-39 [facility] Comment on above: Performed By: #### C BC, BMP, MG #### [facility] [address] [place] [address] Bilirubin [Mass/Vol] 0.7 mg/dL Normal 0.3-1.0 [facility] Comment on above: Performed By: #### C BC, BMP, MG #### [facility] [address] [place] [address] Bilirubin,Indirect 0.5 mg/dL Normal [facility] Comment on above: Performed By: #### C BC, BMP, MG #### [facility] [address] [place] [address] Bilirubin.indirect [Mass/Vol] 0.20 mg/dL High 0.03-0.18 [facility] Comment on above: Performed By: #### C BC, BMP, MG #### [facility] [address] [place] [address] Globulin (S) [Mass/Vol] 3.6 g/dL Normal [facility] Comment on above: Performed By: #### C BC, BMP, MG #### [facility] [address] [place] [address] [place] Protein [Mass/Vol] 6.9 g/dL Normal 6.4-8.9 [facility] Comment on above: Performed By: #### C BC, BMP, MG #### [facility] [address] Laboratory - CoagulationOrde red By: Lavell Salazar on 03-10-2023 PT Coag (PPP) [Time] 14.3 s 9.0-12.9 [facility] Lactate [Moles/volume] in Se rum or PlasmaOrdered By: Lavell Salazar on 03-10-2023 Lactate [Moles/Vol] 1.2 mmol/L 0.5-2.2 [facility] Lactic Acidon 03-10-2023 Lactate [Moles/Vol] 1.2 mmol/L Normal 0.5-2.2 [facility] Comment on above: Result Comment: PERF ORMED BY: [facility] [address] [facility] [place] [address] PATHOLOGIST [employer] WAYNE WAKEFIELD M.D. Performed By: #### G MARE #### Point of Care testing , Monocyte distribution width [Entitic volume] in Blood by AutomatedOrdered By: Lavell Salazar on 03-10-2023 Monocyte distribution width Auto (Bld) [Entitic vol] 24.68 % 0.00-20.00 [facility] Comment on above: For adults in ED, MD W > 20.0 may be associated with a higher risk of sepsis during the first 12 hrs of hospital admission Natriuretic peptide B [Mass/ Vol]Ordered By: Lavell Salazar on 03-10-2023 Natriuretic peptide B (Bld) [Mass/Vol] 46.0 pg/mL 5-100 [facility] Partial Thromboplastin Timeo n 03-10-2023 aPTT Coag (Bld) [Time] 40.2 s High 25.1-36.5 [facility] Comment on above: Result Comment: PERF ORMED BY: [facility] [address] [place] [address] PATHOLOGIST [employer] WAYNE WAKEFIELD M.D. Performed By: #### G MARE #### Point of Care testing , Platelet poor plasma interna tional normalized ratio (INR) by coagulation assay (relatOrdered By: Lavell Salazar on 03-10-2023 INR Coag (PPP) [Relative time] 1.2 {INR} [facility] Comment on above: INR Therapeutic Rang [...] Coag (PPP) [Relative time] 1.2 {INR} Normal [facility] Comment on above: Result Comment: INR [...] Coag (PPP) [Time] 14.3 s High 9.0-12.9 [facility] Comment on above: Performed By: #### G MARE #### Point of Care testing , Serum or plasma non-glucuron idated bilirubin measurement (mass/volume)Ordered By: Lavell Salazar on 03-10-2023 Bilirubin.indirect [Mass/Vol] 0.5 mg/dL [facility] Troponin I High Sensitivityo n 03-10-2023 Troponin I High Sensitivity 12.8 pg/mL Normal 0.0-15.0 [facility] Comment on above: Result Comment: PERF ORMED BY: [facility] [address] [place] [address] PATHOLOGIST [employer] WAYNE WAKEFIELD M.D. Performed By: #### C BC, BMP, MG #### [address] Troponin I.cardiac [Mass/vol ume] in Serum or Plasma by Detection limit <= 0.01 ng/Ordered By: Lavell Salazar on 03-10-2023 Troponin I.cardiac DL <= 0.01 ng/mL [Mass/Vol] 12.8 pg/mL 0.0-15.0 [facility] XR chest 1V portableon 03-10 XR chest 1V portable [facility] [place] [address] [place] [address] XRay Report Signed Patient: Christiane Perez MR#: [id number] 2 : 1975 Acct:[id number] Age/Sex: 48 / F ADM Date: 03/10/23 [...] Johnson Jr., D.OJosue03/10/2023 1:11 PM Dictation Location: [place] [address] Transcribed By: [facility] 03/10/231310 Dictated By: Rodger Johnson Jr, DO 03/10/231309 Signed By: 03/10/23 131 Normal [facility] Insurance Correspondence Off ice02-19-2023 Insurance Correspondence Office [id number]#[id number]:12 7 Normal [facility] Quick Strepon 02-14-2023 S. pyogenes Org specific cx Ql (Throat) Negative [facility]ST[facility] [employer] Other Quick Strep [facility] [employer] Other Insurance Correspondence Off iceon 01-20-2023 Insurance Correspondence Office [id number]#[id number]:1 27 Normal [facility] CBC AUTO DIFFon 12-01-2022 BASO # 0.0 103/ul Normal 0.0-0.1 [facility] Comment on above: Performed By: #### I NFLUAB #### [facility] [address] [place] [address] Dr. Roscoe Segal Basophils/100 WBC (Bld) 0.6 % Normal 0.2-2.0 [facility] Comment on above: Performed By: #### I NFLUAB #### [facility] [address] [place] [address] Dr. Roscoe Segal EO # 0.2 103/ul Normal 0.0-0.7 [facility] Comment on above: Performed By: #### I NFLUAB #### [facility] [address] [place] [address] Dr. Roscoe Segal Eosinophils/100 WBC (Bld) 2.4 % Normal 0.9-7.0 [facility] Comment on above: Performed By: #### I NFLUAB #### [facility] [address] [place] [address] Dr. Roscoe Segal Erythrocyte distribution width (RBC) [Ratio] 14.9 % Normal 11.0-15.0 [facility] Comment on above: Performed By: #### I NFLUAB #### [facility] [address] [place] [address] Dr. Roscoe Segal Hematocrit (Bld) [Volume fraction] 44.7 % Normal 36.0-48.0 [facility] Comment on above: Performed By: #### I NFLUAB #### [facility] [address] [place], [place] [address] Dr. Roscoe Segal Hemoglobin (Bld) [Mass/Vol] 14.9 g/dL Normal 12.0-16.0 [facility] Comment on above: Performed By: #### I NFLUAB #### [facility] [address] [place] [address] Dr. Roscoe Segal IG # 0.02 10e3/ul Normal 0.00-0.03 [facility] Comment on above: Performed By: #### I NFLUAB #### [facility] [address] [place] [address] Dr. Roscoe Segal IG % 0.3 % Normal 0.0-0.5 [facility] Comment on above: Performed By: #### I NFLUAB #### [facility] [address] [place] [address] Dr. Roscoe Segal LYMPH # 1.6 103/ul Normal 1.2-3.8 [facility] Comment on above: Performed By: #### I NFLUAB #### [facility] [address] [place] [address] Dr. Roscoe Segal Lymphocytes/100 WBC (Bld) 26.1 % Normal 20.5-60.0 [facility] Comment on above: Performed By: #### I NFLUAB #### [facility] [address] [place] [address] Dr. Roscoe Segal MANUAL DIFF REQ NO Normal [facility] Comment on above: Performed By: #### I NFLUAB #### [facility] [address] [place] [address] Dr. Roscoe Segal MCH (RBC) [Entitic mass] 32.3 pg Normal 26.7-34.0 [facility] Comment on above: Performed By: #### I NFLUAB #### [facility] [address] [place] [address] Dr. Roscoe Segal MCHC (RBC) [Mass/Vol] 33.3 g/dL Normal 29.9-35.2 [facility] Comment on above: Performed By: #### I NFLUAB #### [facility] [address] [place] [address] [address] Roscoe Segal MCV (RBC) [Entitic vol] 96.8 fL Normal 81.0-99.0 [facility] Comment on above: Performed By: #### I NFLUAB #### [facility] [address] [place] [address] Dr. Roscoe Segal MONO # 0.6 103/ul Normal 0.3-0.8 [facility] Comment on above: Performed By: #### I NFLUAB #### [facility] [address] [place] [address] Dr. Roscoe Segal Monocytes/100 WBC (Bld) 9.1 % Normal 1.7-12.0 [facility] Comment on above: Performed By: #### I NFLUAB #### [facility] [address] [place] [address] Dr. oRscoe Segal NEUT # 3.8 103/ul Normal 1.4-6.5 [facility] Comment on above: Performed By: #### I NFLUAB #### [facility] [address] [place] [address] Dr. Roscoe Segal Neutrophils/100 WBC (Bld) 61.5 % Normal 43.0-75.0 [facility] Comment on above: Performed By: #### I NFLUAB #### [facility] [address] [place] [address] Dr. Roscoe Segal Platelet mean volume (Bld) [Entitic vol] 8.5 fL Critically low 9.5-13.5 [facility] Comment on above: Performed By: #### I NFLUAB #### [facility] [address] [place] [address] Dr. Roscoe Segal PLT 268 103/ul Normal 150-450 [facility] Comment on above: Performed By: #### I NFLUAB #### [facility] [address] [place] [address] Dr. Roscoe Segal RBC 4.62 106/ul Normal 4.20-5.40 [facility] Comment on above: Performed By: #### I NFLUAB #### [facility] [address] [place] [address] [address] Roscoe Segal WBC 6.3 103/ul Normal 4.0-11.0 [facility] Comment on above: Performed By: #### I NFLUAB #### [facility] [address] [place] [address] Dr. Roscoe Segal GLYCOHEMOGLOBIN A1Con 2022 ADA RECOMMENDATION SEE BELOW Normal [facility] Comment on above: Result Comment: ADA RECOMMENDED LIMIT 4.0 - 6.0 ADA THERAPEUTIC TARGET < 7.0 ACTION SUGGESTED > 7.0 Performed By: #### C BC #### [facility] [address] [place] [address] [address] Roscoe Segal Glucose [Mass/Vol] 137 mg/dL Normal [facility] Comment on above: Performed By: #### C BC #### [facility] [address] [place] [address] Dr. Roscoe Segal HbA1c (Bld) [Mass fraction] 6.4 % Critically high 4.5-6.2 [facility] Comment on above: Performed By: #### C BC #### [facility] [address] [place] [address] Dr. Roscoe Seagl LIPID PROFILEon 12-01-2022 CHOL-HDL RATIO NORM SEE BELOW Normal [facility] Comment on above: Result Comment: 3.3 - 4.4 LOW RISK 4.4 - 7.1 AVERAGE RISK 7.1 - 11.0 MODERATE RISK >11.0 HIGH RISK Performed By: #### I NFLUAB #### [facility] [address] [place] [address] Dr. Roscoe Segal Cholesterol [Mass/Vol] 116 mg/dL Normal <=200 Th [facility] Comment on above: Performed By: #### I NFLUAB #### [facility] [address] [place] [address] Dr. Roscoe Sgeal Cholesterol in HDL [Mass/Vol] 58 mg/dL Normal 40-60 [facility] Comment on above: Performed By: #### I NFLUAB #### [facility] [address] [place] [address] Dr. Roscoe Segal Cholesterol in LDL [Mass/Vol] 43.4 mg/dL Normal [facility] Comment on above: Performed By: #### I NFLUAB #### [facility] [address] [place] [address] [address] Roscoe Segal Cholesterol.total/Chol esterol in HDL [Mass ratio] 2.0 {ratio} Normal [facility] Comment on above: Performed By: #### I NFLUAB #### [facility] [address] [place] [address] [address] Roscoe Segal HDL NORMAL > or = 60 mg/dl - LO W CARDIOVASCULAR RISK <40 mg/dl - HIGH CARDIOVASCULAR RISK Normal [facility] Comment on above: Performed By: #### I NFLUAB #### [facility] Laboratory [address] [address] [address] Roscoe Segal LDL CALC NORMAL SEE BELOW Normal [facility] Comment on above: Result Comment: <100 mg/dl OPTIMAL 100 - 129 mg/dl NEAR OR ABOVE OPTIMAL 130 - 159 mg/dl BORDERLINE HIGH 160 - 189 mg/dl HIGH >190 mg/dl VERY HIGH Performed By: #### I NFLUAB #### [facility] [address] [address] [address] Roscoe Segal Triglyceride [Mass/Vol] 73 mg/dL Normal <=150 [facility] Comment on above: Performed By: #### I NFLUAB #### [facility] [address] [address] [address] Roscoe Segal VLDL CALC 14.6 mg/dL Normal [facility] Comment on above: Performed By: #### I NFLUAB #### [facility] [address] [address] [address] Roscoe Segal PROF 14(COMP METB)on 023 Albumin [Mass/Vol] 2.9 g/dL Critically low 3.4-5.0 Th [facility] Comment on above: Performed By: #### P OCGLUC #### [facility] [address] [address] [address] Roscoe Segal Albumin/Globulin [Mass ratio] 0.8 {ratio} Normal [facility] Comment on above: Performed By: #### P OCGLUC #### [facility] [address] [address] [address] Roscoe Segal ALP [Catalytic activity/Vol] 114 U/L Normal 46-116 [facility] Comment on above: Performed By: #### P OCGLUC #### [facility] [address] [address] [address] Roscoe Segal ALT [Catalytic activity/Vol] 15 U/L Normal 14-59 [facility] Comment on above: Performed By: #### P OCGLUC #### [facility] [address] [address] [address] Roscoe Segal Anion gap [Moles/Vol] 14.3 mmol/L Normal Th [facility] Comment on above: Performed By: #### P OCGLUC #### [facility] [address] [address] [address] Roscoe Segal AST [Catalytic activity/Vol] 10 U/L Critically low 15-37 [facility] Comment on above: Performed By: #### P OCGLUC #### [facility] [address] [address] [address] Roscoe Segal Bilirubin [Mass/Vol] 0.3 mg/dL Normal 0.2-1.0 [facility] Comment on above: Performed By: #### P OCGLUC #### [facility] [address] [address] [address] Roscoe Segal Calcium [Mass/Vol] 8.7 mg/dL Normal 8.5-10.1 [facility] Comment on above: Performed By: #### P OCGLUC #### [facility] [address] [address] [address] Roscoe Segal Chloride [Moles/Vol] 104 mmol/L Normal 98-107 [facility] Comment on above: Performed By: #### P OCGLUC #### [facility] [address] [address] [address] Roscoe Segal CO2 [Moles/Vol] 23.5 mmol/L Normal 21.0-32.0 [facility] Comment on above: Performed By: #### P OCGLUC #### [facility] [address] [address] [address] Roscoe Segal Creatinine [Mass/Vol] 0.83 mg/dL Normal 0.55-1.02 [facility] Comment on above: Performed By: #### P OCGLUC #### [facility] [address] [address] [address] Roscoe Segal EGFR-AF [place]IZ[place] >60 Normal >=60 [facility] Comment on above: Performed By: #### P OCGLUC #### [facility] [address] [address] [address] Roscoe Segal EGFR-NON AF CITIZ[place] OF [place] >60 Normal >=60 [facility] Comment on above: Performed By: #### P OCGLUC #### [facility] [address] [address] [address] Roscoe Segal Globulin (S) [Mass/Vol] 3.5 g/dL Normal [facility] Comment on above: Performed By: #### P OCGLUC #### [facility] [address] [address] [address] Roscoe Segal Glucose [Mass/Vol] 235 mg/dL Critically high 74-106 [facility] Comment on above: Performed By: #### P OCGLUC #### [facility] [address] [address] [address] Roscoe Segal Potassium [Moles/Vol] 3.8 mmol/L Normal 3.5-5.1 [facility] Comment on above: Performed By: #### P OCGLUC #### [facility] [address] [address] [address] Roscoe Segal Protein [Mass/Vol] 6.4 g/dL Normal 6.4-8.2 [facility] Comment on above: Performed By: #### P OCGLUC #### [facility] [address] [address] [address] Roscoe Segal Sodium [Moles/Vol] 138 mmol/L Normal 136-145 [facility] Comment on above: Performed By: #### P OCGLUC #### [facility] [address] [place] [address] Dr. Roscoe Segal Urea nitrogen [Mass/Vol] 9.0 mg/dL Normal 7.0-18.0 [facility] Comment on above: Performed By: #### P OCGLUC #### [facility] [address] [place] [address] Dr. Roscoe Segal Urea nitrogen/Creatinine [Mass ratio] 10.8 mg/mg Normal [facility] Comment on above: Performed By: #### P OCGLUC #### [facility] [address] [place] [address] Dr. Roscoe Segal CARDIAC VICK ADMITon 023 CK [Catalytic activity/Vol] 43 U/L Normal 26-192 [facility] Comment on above: Performed By: #### I NFLUAB #### [facility] [address] [place] [address] Dr. Roscoe Segal CK.MB [Mass/Vol] 2.22 ng/mL Normal <=3.60 [facility] Comment on above: Performed By: #### I NFLUAB #### [facility] [address] [place] [address] Dr. Roscoe Segal GWEN 58 ng/mL Normal 9-82 [facility] Comment on above: Performed By: #### I NFLUAB #### [facility] [address] [place] [address] Dr. Roscoe Segal CBC AUTO DIFFon 09-11-2022 BASO # 0.1 103/ul Normal 0.0-0.1 [facility] Comment on above: Performed By: #### P OCGLUC #### [facility] [address] [place] [address] Dr. Roscoe Segal Basophils/100 WBC (Bld) 0.8 % Normal 0.2-2.0 [facility] Comment on above: Performed By: #### P OCGLUC #### [facility] [address] [place] [address] Dr. Roscoe Segal EO # 0.2 103/ul Normal 0.0-0.7 [facility] Comment on above: Performed By: #### P OCGLUC #### [facility] [address] [address] [address] Roscoe Segal Eosinophils/100 WBC (Bld) 2.1 % Normal 0.9-7.0 [facility] Comment on above: Performed By: #### P OCGLUC #### [facility] [address] [place] [address] Dr. Roscoe Segal Erythrocyte distribution width (RBC) [Ratio] 14.2 % Normal 11.0-15.0 [facility] Comment on above: Performed By: #### P OCGLUC #### [facility] [address] [place] [address] Dr. Roscoe Segal Hematocrit (Bld) [Volume fraction] 48.4 % Critically high 36.0-48.0 [facility] Comment on above: Performed By: #### P OCGLUC #### [facility] [address] [place] [address] Dr. Roscoe Segal Hemoglobin (Bld) [Mass/Vol] 15.0 g/dL Normal 12.0-16.0 [facility] Comment on above: Performed By: #### P OCGLUC #### [facility] [address] [place] [address] Dr. Roscoe Segal IG # 0.02 10e3/ul Normal 0.00-0.03 [facility] Comment on above: Performed By: #### P OCGLUC #### [facility] [address] [place] [address] Dr. Roscoe Segal IG % 0.2 % Normal 0.0-0.5 [facility] Comment on above: Performed By: #### P OCGLUC #### [facility] [address] [place] [address] Dr. Roscoe Segal LYMPH # 2.2 103/ul Normal 1.2-3.8 [facility] Comment on above: Performed By: #### P OCGLUC #### [facility] [address] [place] [address] Dr. Roscoe Segal Lymphocytes/100 WBC (Bld) 26.8 % Normal 20.5-60.0 [facility] Comment on above: Performed By: #### P OCGLUC #### [facility] [address] [address] [address] Roscoe Segal MANUAL DIFF REQ NO Normal [facility] Comment on above: Performed By: #### P OCGLUC #### [facility] [address] [place] [address] Dr. Roscoe Segal MCH (RBC) [Entitic mass] 32.8 pg Normal 26.7-34.0 [facility] Comment on above: Performed By: #### P OCGLUC #### [facility] [address] [place] [address] Dr. Roscoe Segal MCHC (RBC) [Mass/Vol] 31.0 g/dL Normal 29.9-35.2 [facility] Comment on above: Performed By: #### P OCGLUC #### [facility] [address] [place] [address] Dr. Roscoe Segal MCV (RBC) [Entitic vol] 105.7 fL Critically high 81.0-99.0 [facility] Comment on above: Result Comment: Slig ht Macrocytosis Present Performed By: #### P OCGLUC #### [facility] [address] [place] [address] Dr. Roscoe Segal MONO # 0.7 103/ul Normal 0.3-0.8 [facility] Comment on above: Performed By: #### P OCGLUC #### [facility] [address] [place] [address] Dr. Roscoe Segal Monocytes/100 WBC (Bld) 8.9 % Normal 1.7-12.0 [facility] Comment on above: Performed By: #### P OCGLUC #### [facility] [address] [place] [address] Dr. Roscoe Segal NEUT # 5.1 103/ul Normal 1.4-6.5 [facility] Comment on above: Performed By: #### P OCGLUC #### [facility] [address] [place] [address] Dr. Roscoe Segal Neutrophils/100 WBC (Bld) 61.2 % Normal 43.0-75.0 [facility] Comment on above: Performed By: #### P OCGLUC #### [facility] [address] [address] [address] Roscoe Segal Platelet mean volume (Bld) [Entitic vol] 8.7 fL Critically low 9.5-13.5 [facility] Comment on above: Performed By: #### P OCGLUC #### [facility] [address] [address] [address] Roscoe Segal PLT 382 103/ul Normal 150-450 [facility] Comment on above: Performed By: #### P OCGLUC #### [facility] [address] [address] [address] Roscoe Segal RBC 4.58 106/ul Normal 4.20-5.40 [facility] Comment on above: Performed By: #### P OCGLUC #### [facility] [address] [address] [address] Roscoe Segal WBC 8.3 103/ul Normal 4.0-11.0 [facility] Comment on above: Performed By: #### P OCGLUC #### [facility] [address] [address] [address] Roscoe Segal GLUCOSE BLOODon 09-11-2022 Glucose [Mass/Vol] 39 mg/dL Critically low 74-106 [facility] Comment on above: Performed By: #### P OCGLUC #### [facility] [address] [address] [address] Roscoe Segal POINT OF CARE GLUCOSEon 08-17 Glucose [Mass/Vol] 103 mg/dL Normal 74-106 [facility] Comment on above: Performed By: #### P OCGLUC #### [facility] [address] [address] [address] Roscoe Segal Glucose [Mass/Vol] 284 mg/dL Critically high 74-106 [facility] Comment on above: Performed By: #### P OCGLUC #### [facility] [address] [address] [address] Roscoe Segal Glucose [Mass/Vol] 104 mg/dL Normal 74-106 [facility] Comment on above: Performed By: #### P OCGLUC #### [facility] [address] [address] [address] Roscoe Segal Glucose [Mass/Vol] 94 mg/dL Normal 74-106 [facility] Comment on above: Performed By: #### I NFLUAB #### [facility] [address] [address] [address] Roscoe Segal Glucose [Mass/Vol] 136 mg/dL Critically high 74-106 [facility] Comment on above: Performed By: #### P OCGLUC #### [facility] [address] [address] [address] Roscoe Segal Glucose [Mass/Vol] 181 mg/dL Critically high 74-106 [facility] Comment on above: Performed By: #### P OCGLUC #### [facility] [address] [address] [address] Roscoe Segal Glucose [Mass/Vol] 103 mg/dL Normal 74-106 [facility] Comment on above: Performed By: #### C BC #### [facility] [address] [address] [address] Roscoe Segal Glucose [Mass/Vol] 81 mg/dL Normal 74-106 [facility] Comment on above: Performed By: #### P OCGLUC #### [facility] [address] [address] [address] Roscoe Segal Glucose [Mass/Vol] 52 mg/dL Critically low 74-106 [facility] Comment on above: Performed By: #### P OCGLUC #### [facility] [address] [address] [address] Roscoe Segal Glucose [Mass/Vol] 38 mg/dL Critically low 74-106 [facility] Comment on above: Result Comment: Will Repeat Test Performed By: #### C BC #### [facility] [address] [address] [address] Roscoe Segal Glucose [Mass/Vol] 67 mg/dL Critically low 74-106 Th [facility] Comment on above: Performed By: #### P OCGLUC #### [facility] [address] [address] [address] Roscoe Segal PROF CHEM 8 (BAS METB)on Anion gap [Moles/Vol] 13.1 mmol/L Normal [facility] Comment on above: Performed By: #### C BC #### [facility] [address] [place] [address] Dr. Roscoe Segal Calcium [Mass/Vol] 9.0 mg/dL Normal 8.5-10.1 [facility] Comment on above: Performed By: #### C BC #### [facility] [address] [place] [address] Dr. Roscoe Segal Chloride [Moles/Vol] 106 mmol/L Normal 98-107 [facility] Comment on above: Performed By: #### C BC #### [facility] [address] [place] [address] Dr. Roscoe Segal CO2 [Moles/Vol] 25.0 mmol/L Normal 21.0-32.0 [facility] Comment on above: Performed By: #### C BC #### [facility] [address] [place] [address] Dr. Roscoe Segal Creatinine [Mass/Vol] 0.86 mg/dL Normal 0.55-1.02 [facility] Comment on above: Performed By: #### C BC #### [facility] [address] [place] [address] Dr. Roscoe Segal EGFR-AF [place] >60 Normal >=60 [facility] Comment on above: Performed By: #### C BC #### [facility] [address] [place] [address] Dr. Roscoe Segal EGFR-NON AF [place]IZ[place] >60 Normal >=60 [facility] Comment on above: Performed By: #### C BC #### [facility] [address] [place] [address] Dr. Roscoe Segal Glucose [Mass/Vol] 36 mg/dL Critically low 74-106 [facility] Comment on above: Performed By: #### C BC #### [facility] [address] [place] [address] Dr. Roscoe Segal Potassium [Moles/Vol] 4.1 mmol/L Normal 3.5-5.1 [facility] Comment on above: Performed By: #### C BC #### [facility] [address] [address] [address] Roscoe Segal Sodium [Moles/Vol] 140 mmol/L Normal 136-145 [facility] Comment on above: Performed By: #### C BC #### [facility] [address] [address] [address] Roscoe Segal Urea nitrogen [Mass/Vol] 10.0 mg/dL Normal 7.0-18.0 [facility] Comment on above: Performed By: #### C BC #### [facility] [address] [place] [address] Dr. Roscoe Segal Urea nitrogen/Creatinine [Mass ratio] 11.6 mg/mg Normal [facility] Comment on above: Performed By: #### C BC #### [facility] [address] [place] [address] Dr. Roscoe Segal TROPONIN, HIGH SENSITIVITYon 09-11-2022 HSTROP 7.0 pg/mL Normal 4.0-51.3 [facility] Comment on above: Result Comment: CUT- OFF POINTS HAVE BEEN ESTABLISHED BASED ON THE FOURTH UNIVERSAL DEFINITIONS OF MYOCARDIAL INFARCTION. THE UPPER REFERENCE LIMIT (URL) OF TROPONIN, DEFINED THE 99TH PERCENTILE OF cTnI DISTRIBUTION IN A REFERENCE POPULATION, HAS BEEN CONFIRMED THE DECISION THRESHOLD FOR [place] DIAGNOSIS. Performed By: #### I NFLUAB #### [facility] [address] [place] [address] Dr. Roscoe Segal INFLUENZA A AND B AGon 07-24 INFLUANEGH SEE BELOW Normal [facility] Comment on above: Result Comment: Nega tive for Flu A protein angiten. Infection due to Flu A cannot be ruled out. Flu A angiten in the sample may be below the detection limit of the test. Performed By: #### I NFLUAB #### [facility] [address] [place] [address] Dr. Roscoe Segal INFLUBNEGH SEE BELOW Normal [facility] Comment on above: Result Comment: Nega tive for Flu B protein antigen. Infection due to Flu B cannot be ruled out. Flu B antigen in the sample may be below the detection limit of the test. Performed By: #### I NFLUAB #### [facility] [address] [place] [address] Dr. Roscoe Segal INFLUENZA A AG Negative Normal NEGATIVE SEE COMMENT [facility] Comment on above: Performed By: #### I NFLUAB #### [facility] [address] [place] [address] Dr. Roscoe Segal INFLUENZA B AG Negative Normal NEGATIVE SEE COMMENT [facility] Comment on above: Performed By: #### I NFLUAB #### [facility] [address] [place] [address] Dr. Roscoe Segal INTERNAL CONTROLS Within Normal Limits Normal Wi thin Normal Limits [facility] Comment on above: Performed By: #### I NFLUAB #### [facility] [address] [place] [address] Dr. Roscoe Segal XR CHEST 1 Von [...] SHAJI LIMON Date: 2022-07-24 15:26 Normal [facility] XR CHEST 2 Von 05-25-2022 XR [...] by: GERMAINE FARRELL Date: 2022-05-25 16:25 Normal [facility] BLOOD GASES BTYon 04-27-2022 02 MODE NASAL CANNULA Normal [facility] Comment on above: Performed By: #### P OCGLUC #### [facility] [address] [place] [address] Dr. Roscoe Segal ALLENS TEST Positive [facility] Comment on above: Performed By: #### P OCGLUC #### [facility] [address] [address] [address] Roscoe Segal Base excess Calc (Bld) [Moles/Vol] -1.5000 mmol/L Normal -2.0-2.0 [facility] Comment on above: Performed By: #### P OCGLUC #### [facility] [address] [place] [address] Dr. Roscoe Segal BIPAP PRESSURE [facility] Comment on above: Performed By: #### P OCGLUC #### [facility] [address] [address] [address] Rosceo Segal CPAP [facility] Comment on above: Performed By: #### P OCGLUC #### [facility] [address] [address] [address] Roscoe Segal FIO2 [facility] Comment on above: Performed By: #### P OCGLUC #### [facility] [address] [place] [address] Dr. Roscoe Segal HCO3 (Bld) [Moles/Vol] 23.2 mmol/L Normal 22.0-26.0 [facility] Comment on above: Performed By: #### P OCGLUC #### [facility] [address] [place] [address] Dr. Roscoe Segal LPM 3 [facility] Comment on above: Performed By: #### P OCGLUC #### [facility] [address] [place] [address] Dr. Roscoe Segal MINUTE VOLUME Normal [facility] Comment on above: Performed By: #### P OCGLUC #### [facility] [address] [address] [address] Roscoe Segal Oxygen (Bld) [Partial pressure] 76.4 mm[Hg] Critically low 80.0-100.0 [facility] Comment on above: Performed By: #### P OCGLUC #### [facility] [address] [place] [address] Dr. Roscoe Segal Oxygen saturation in Blood 94.8 % Critically low 95.0-100.0 [facility] Comment on above: Performed By: #### P OCGLUC #### [facility] [address] [address] [address] Roscoe Segal PCO2 39.5 mmHg Normal 35.0-45.0 [facility] Comment on above: Performed By: #### P OCGLUC #### [facility] [address] [place] [address] Dr. Roscoe Segal [facility] Comment on above: Performed By: #### P OCGLUC #### [facility] [address] [place] [address] Dr. Roscoe Segal pH (Bld) 7.384 [pH] Normal 7.350-7.45 0 [facility] Comment on above: Performed By: #### P OCGLUC #### [facility] [address] [place] [address] Dr. Roscoe Segal [facility] Comment on above: Performed By: #### P OCGLUC #### [facility] [address] [address] [address] Roscoe Segal PS [facility] Comment on above: Performed By: #### P OCGLUC #### [facility] [address] [address] [address] Roscoe Segal PUNCTURE SITE LR [facility] Comment on above: Performed By: #### P OCGLUC #### [facility] [address] [place] [address] Dr. Roscoe Segal RATE [facility] Comment on above: Performed By: #### P OCGLUC #### [facility] [address] [address] [address] Roscoe Segal VENT MODE Normal [facility] Comment on above: Performed By: #### P OCGLUC #### [facility] [address] [place] [address] Dr. Roscoe Segal [facility] Comment on above: Performed By: #### P OCGLUC #### [facility] [address] [place] [address] Dr. Roscoe Segal BNPon 04-27-2022 Natriuretic peptide B (Bld) [Mass/Vol] 282.0 pg/mL Normal <=450.0 [facility] Comment on above: Performed By: #### P OCGLUC #### [facility] [address] [place] [address] Dr. Roscoe Segal CBC AUTO DIFFon 04-27-2022 BASO # 0.0 103/ul Normal 0.0-0.1 [facility] Comment on above: Performed By: #### P OCGLUC #### [facility] [address] [place] [address] Dr. Roscoe Segal Basophils/100 WBC (Bld) 0.2 % Normal 0.2-2.0 [facility] Comment on above: Performed By: #### P OCGLUC #### [facility] [address] [place] [address] Dr. Roscoe Segal EO # 0.0 103/ul Normal 0.0-0.7 [facility] Comment on above: Performed By: #### P OCGLUC #### [facility] [address] [place] [address] Dr. Roscoe Segal Eosinophils/100 WBC (Bld) 0.0 % Critically low 0.9-7.0 [facility] Comment on above: Performed By: #### P OCGLUC #### [facility] [address] [place] [address] Dr. Roscoe Segal Erythrocyte distribution width (RBC) [Ratio] 14.1 % Normal 11.0-15.0 [facility] Comment on above: Performed By: #### P OCGLUC #### [facility] [address] [place] [address] Dr. Roscoe Segal Hematocrit (Bld) [Volume fraction] 39.4 % Normal 36.0-48.0 [facility] Comment on above: Performed By: #### P OCGLUC #### [facility] [address] [address] [address] Roscoe Segal Hemoglobin (Bld) [Mass/Vol] 13.0 g/dL Normal 12.0-16.0 [facility] Comment on above: Performed By: #### P OCGLUC #### [facility] [address] [place] [address] Dr. Roscoe Segal IG # 0.14 10e3/ul Critically high 0.00-0.03 [facility] Comment on above: Performed By: #### P OCGLUC #### [facility] [address] [place] [address] Dr. Roscoe Segal IG % 1.0 % Critically high 0.0-0.5 [facility] Comment on above: Performed By: #### P OCGLUC #### [facility] [address] [place] [address] Dr. Roscoe Segal LYMPH # 1.4 103/ul Normal 1.2-3.8 [facility] Comment on above: Performed By: #### P OCGLUC #### [facility] [address] [place] [address] Dr. Roscoe Segal Lymphocytes/100 WBC (Bld) 9.5 % Critically low 20.5-60.0 [facility] Comment on above: Performed By: #### P OCGLUC #### [facility] [address] [place] [address] Dr. Roscoe Segal MANUAL DIFF REQ NO Normal [facility] Comment on above: Performed By: #### P OCGLUC #### [facility] [address] [place] [address] Dr. Roscoe Segal MCH (RBC) [Entitic mass] 32.3 pg Normal 26.7-34.0 [facility] Comment on above: Performed By: #### P OCGLUC #### [facility] [address] [place] [address] Dr. Roscoe Segal MCHC (RBC) [Mass/Vol] 33.0 g/dL Normal 29.9-35.2 [facility] Comment on above: Performed By: #### P OCGLUC #### [facility] [address] [address] [address] Roscoe Segal MCV (RBC) [Entitic vol] 98.0 fL Normal 81.0-99.0 [facility] Comment on above: Performed By: #### P OCGLUC #### [facility] [address] [address] [address] Roscoe Segal MONO # 0.6 103/ul Normal 0.3-0.8 [facility] Comment on above: Performed By: #### P OCGLUC #### [facility] [address] [place] [address] Dr. Roscoe Segal Monocytes/100 WBC (Bld) 4.3 % Normal 1.7-12.0 [facility] Comment on above: Performed By: #### P OCGLUC #### [facility] [address] [place] [address] Dr. Roscoe Segal NEUT # 12.1 103/ul Critically high 1.4-6.5 [facility] Comment on above: Performed By: #### P OCGLUC #### [facility] [address] [place] [address] Dr. Roscoe Segal Neutrophils/100 WBC (Bld) 85.0 % Critically high 43.0-75.0 [facility] Comment on above: Performed By: #### P OCGLUC #### [facility] [address] [place] [address] Dr. Roscoe Segal Platelet mean volume (Bld) [Entitic vol] 8.9 fL Critically low 9.5-13.5 [facility] Comment on above: Performed By: #### P OCGLUC #### [facility] [address] [place] [address] Dr. Roscoe Segal PLT 362 103/ul Normal 150-450 [facility] Comment on above: Performed By: #### P OCGLUC #### [facility] [address] [place] [address] Dr. Roscoe Segal RBC 4.02 106/ul Critically low 4.20-5.40 [facility] Comment on above: Performed By: #### P OCGLUC #### [facility] [address] [place] [address] Dr. Roscoe Segal WBC 14.2 103/ul Critically high 4.0-11.0 [facility] Comment on above: Performed By: #### P OCGLUC #### [facility] [address] [place] [address] Dr. Roscoe Segal D-DIMERon 04-27-2022 D-DIMER 0.29 mg/L FEU Normal <=0.59 [facility] Comment on above: Performed By: #### D DIM #### [facility] [address] [place] [address] Dr. Roscoe Segal D-DIMER COMMENTS SEE BELOW Normal [facility] Comment on above: Result Comment: Incr eases [...] hospitalization. Performed By: #### D DIM #### [facility] [address] [place] [address] Dr. Roscoe Segal LACTATE/LACTIC ACIDon 2021 Lactate [Moles/Vol] 2.1 mmol/L Critically high 0.4-1.9 [facility] Comment on above: Performed By: #### P OCGLUC #### [facility] [address] [place] [address] Dr. Roscoe Segal PROF 14(COMP METB)on 022 Albumin [Mass/Vol] 3.0 g/dL Critically low 3.4-5.0 [facility] Comment on above: Performed By: #### P OCGLUC #### [facility] [address] [place], [place] [id number] Dr. Roscoe Segal Albumin/Globulin [Mass ratio] 0.8 {ratio} Normal [facility] Comment on above: Performed By: #### P OCGLUC #### [facility] [address] [address] [address] Roscoe Segal ALP [Catalytic activity/Vol] 77 U/L Normal 46-116 [facility] Comment on above: Performed By: #### P OCGLUC #### [facility] [address] [address] [address] Roscoe Segal ALT [Catalytic activity/Vol] 14 U/L Normal 14-59 [facility] Comment on above: Performed By: #### P OCGLUC #### [facility] [address] [place] [address] Dr. Roscoe Segal Anion gap [Moles/Vol] 13.4 mmol/L Normal [facility] Comment on above: Performed By: #### P OCGLUC #### [facility] [address] [address] [address] Roscoe Segal AST [Catalytic activity/Vol] 7 U/L Critically low 15-37 [facility] Comment on above: Performed By: #### P OCGLUC #### [facility] [address] [place] [address] Dr. Roscoe Segal Bilirubin [Mass/Vol] 0.1 mg/dL Critically low 0.2-1.0 [facility] Comment on above: Performed By: #### P OCGLUC #### [facility] [address] [address] [address] Roscoe Segal Calcium [Mass/Vol] 8.9 mg/dL Normal 8.5-10.1 [facility] Comment on above: Performed By: #### P OCGLUC #### [facility] [address] [place] [address] Dr. Roscoe Segal Chloride [Moles/Vol] 105 mmol/L Normal 98-107 [facility] Comment on above: Performed By: #### P OCGLUC #### [facility] [address] [place] [address] Dr. Roscoe Segal CO2 [Moles/Vol] 21.8 mmol/L Normal 21.0-32.0 [facility] Comment on above: Performed By: #### P OCGLUC #### [facility] [address] [address] [address] Roscoe Segal Creatinine [Mass/Vol] 0.94 mg/dL Normal 0.55-1.02 [facility] Comment on above: Performed By: #### P OCGLUC #### [facility] [address] [address] [address] Roscoe Segal EGFR-AF [place]IZ[place] >60 Normal >=60 [facility] Comment on above: Performed By: #### P OCGLUC #### [facility] [address] [address] [address] Roscoe Segal EGFR-NON AF [place]IZ[place] >60 Normal >=60 [facility] Comment on above: Performed By: #### P OCGLUC #### [facility] [address] [address] [address] Roscoe Segal Globulin (S) [Mass/Vol] 3.7 g/dL Normal [facility] Comment on above: Performed By: #### P OCGLUC #### [facility] [address] [address] [address] Roscoe Segal Glucose [Mass/Vol] 283 mg/dL Critically high 74-106 [facility] Comment on above: Performed By: #### P OCGLUC #### [facility] [address] [address] [address] Roscoe Segal Potassium [Moles/Vol] 4.2 mmol/L Normal 3.5-5.1 [facility] Comment on above: Performed By: #### P OCGLUC #### [facility] [address] [address] [address] Roscoe Segal Protein [Mass/Vol] 6.7 g/dL Normal 6.4-8.2 [facility] Comment on above: Performed By: #### P OCGLUC #### [facility] [address] [address] [address] Roscoe Segal Sodium [Moles/Vol] 136 mmol/L Normal 136-145 [facility] Comment on above: Performed By: #### P OCGLUC #### [facility] [address] [address] [address] Roscoe Segal Urea nitrogen [Mass/Vol] 16.0 mg/dL Normal 7.0-18.0 [facility] Comment on above: Performed By: #### P OCGLUC #### [facility] [address] [address] [address] Roscoe Segal Urea nitrogen/Creatinine [Mass ratio] 17.0 mg/mg Normal [facility] Comment on above: Performed By: #### P OCGLUC #### [facility] [address] [address] [address] Roscoe Segal TROPONIN, HIGH SENSITIVITYon 04-27-2022 HSTROP 7.2 pg/mL Normal 4.0-51.3 [facility] Comment on above: Result Comment: CUT- OFF POINTS HAVE BEEN ESTABLISHED BASED ON THE FOURTH UNIVERSAL DEFINITIONS OF MYOCARDIAL INFARCTION. THE UPPER REFERENCE LIMIT (URL) OF TROPONIN, DEFINED THE 99TH PERCENTILE OF cTnI DISTRIBUTION IN A REFERENCE POPULATION, HAS BEEN CONFIRMED THE DECISION THRESHOLD FOR [place] DIAGNOSIS. Performed By: #### P OCGLUC #### [facility] [address] [address] [address] Roscoe Segal XR CHEST 1 Von [...] by: GERMAINE FARRELL Date: 2022-04-27 17:20 Normal [facility] CBC AUTO DIFFon 04-25-2022 BASO # 0.1 103/ul Normal 0.0-0.1 [facility] Comment on above: Performed By: #### P OCGLUC #### [facility] [address] [address] [address] Roscoe Segal Basophils/100 WBC (Bld) 0.4 % Normal 0.2-2.0 [facility] Comment on above: Performed By: #### P OCGLUC #### [facility] [address] [address] [address] Roscoe Sgeal EO # 0.1 103/ul Normal 0.0-0.7 [facility] Comment on above: Performed By: #### P OCGLUC #### [facility] [address] [address] [address] Roscoe Segal Eosinophils/100 WBC (Bld) 0.7 % Critically low 0.9-7.0 [facility] Comment on above: Performed By: #### P OCGLUC #### [facility] [address] [place] [address] Dr. Roscoe Segal Erythrocyte distribution width (RBC) [Ratio] 14.1 % Normal 11.0-15.0 [facility] Comment on above: Performed By: #### P OCGLUC #### [facility] [address] [place] [address] Dr. Roscoe Segal Hematocrit (Bld) [Volume fraction] 43.8 % Normal 36.0-48.0 [facility] Comment on above: Performed By: #### P OCGLUC #### [facility] [address] [address] [address] Roscoe Segal Hemoglobin (Bld) [Mass/Vol] 14.6 g/dL Normal 12.0-16.0 [facility] Comment on above: Performed By: #### P OCGLUC #### [facility] [address] [place] [address] Dr. Roscoe Segal IG # 0.09 10e3/ul Critically high 0.00-0.03 [facility] Comment on above: Performed By: #### P OCGLUC #### [facility] [address] [address] [address] Roscoe Segal IG % 0.6 % Critically high 0.0-0.5 [facility] Comment on above: Performed By: #### P OCGLUC #### [facility] [address] [address] [address] Roscoe Segal LYMPH # 1.5 103/ul Normal 1.2-3.8 [facility] Comment on above: Performed By: #### P OCGLUC #### [facility] [address] [address] [address] Roscoe Segal Lymphocytes/100 WBC (Bld) 9.9 % Critically low 20.5-60.0 [facility] Comment on above: Performed By: #### P OCGLUC #### [facility] [address] [address] [address] Roscoe Segal MANUAL DIFF REQ NO Normal [facility] Comment on above: Performed By: #### P OCGLUC #### [facility] [address] [address] [address] Roscoe Segal MCH (RBC) [Entitic mass] 31.8 pg Normal 26.7-34.0 [facility] Comment on above: Performed By: #### P OCGLUC #### [facility] [address] [address] [address] Roscoe Segal MCHC (RBC) [Mass/Vol] 33.3 g/dL Normal 29.9-35.2 [facility] Comment on above: Performed By: #### P OCGLUC #### [facility] [address] [address] [address] Roscoe Segal MCV (RBC) [Entitic vol] 95.4 fL Normal 81.0-99.0 [facility] Comment on above: Performed By: #### P OCGLUC #### [facility] [address] [address] [address] Roscoe Segal MONO # 1.2 103/ul Critically high 0.3-0.8 [facility] Comment on above: Performed By: #### P OCGLUC #### [facility] [address] [address] [address] Roscoe Segal Monocytes/100 WBC (Bld) 8.0 % Normal 1.7-12.0 [facility] Comment on above: Performed By: #### P OCGLUC #### [facility] [address] [place] [address] Dr. Roscoe Segal NEUT # 11.8 103/ul Critically high 1.4-6.5 [facility] Comment on above: Performed By: #### P OCGLUC #### [facility] [address] [place] [address] Dr. Roscoe Segal Neutrophils/100 WBC (Bld) 80.4 % Critically high 43.0-75.0 [facility] Comment on above: Performed By: #### P OCGLUC #### [facility] [address] [place] [address] Dr. Roscoe Segal Platelet mean volume (Bld) [Entitic vol] 8.9 fL Critically low 9.5-13.5 [facility] Comment on above: Performed By: #### P OCGLUC #### [facility] [address] [place] [address] Dr. Roscoe Segal PLT 357 103/ul Normal 150-450 [facility] Comment on above: Performed By: #### P OCGLUC #### [facility] [address] [place] [address] Dr. Roscoe Segal RBC 4.59 106/ul Normal 4.20-5.40 [facility] Comment on above: Performed By: #### P OCGLUC #### [facility] [address] [place] [address] Dr. Roscoe Segal WBC 14.7 103/ul Critically high 4.0-11.0 [facility] Comment on above: Performed By: #### P OCGLUC #### [facility] [address] [place] [address] Dr. Roscoe Segal Covid-19 PCR ([facility])on 04-16 SARS-CoV-2 (COVID-19) RNA SOILA+probe Ql (Unsp spec) Not detected Normal NOT DETECTED [facility] Comment on above: Result Comment: When [...] for this test is supported by the Quality Control Clerk of Health and Human Service's declaration that [...] used). Performed By: #### P OCGLUC #### [facility] [address] [place] [address] Dr. Roscoe Segal PROF CHEM 8 (BAS METB)on Anion gap [Moles/Vol] 16.1 mmol/L Normal [facility] Comment on above: Performed By: #### B MP #### [facility] [address] [place] [address] Dr. Roscoe Segal Calcium [Mass/Vol] 9.2 mg/dL Normal 8.5-10.1 [facility] Comment on above: Performed By: #### B MP #### [facility] [address] [place] [address] Dr. Roscoe Segal Chloride [Moles/Vol] 104 mmol/L Normal 98-107 [facility] Comment on above: Performed By: #### B MP #### [facility] [address] [place] [address] Dr. Roscoe Segal CO2 [Moles/Vol] 22.5 mmol/L Normal 21.0-32.0 [facility] Comment on above: Performed By: #### B MP #### [facility] [address] [place] [address] Dr. Roscoe Segal Creatinine [Mass/Vol] 0.93 mg/dL Normal 0.55-1.02 [facility] Comment on above: Performed By: #### B MP #### [facility] [address] [address] [address] Roscoe Segal EGFR-AF [place] >60 Normal >=60 [facility] Comment on above: Performed By: #### B MP #### [facility] [address] [address] [address] Roscoe Segal EGFR-NON AF [place]IZ[place] >60 Normal >=60 [facility] Comment on above: Performed By: #### B MP #### [facility] [address] [address] [address] Roscoe Segal Glucose [Mass/Vol] 227 mg/dL Critically high 74-106 [facility] Comment on above: Performed By: #### B MP #### [facility] [address] [address] [address] Roscoe Segal Potassium [Moles/Vol] 3.6 mmol/L Normal 3.5-5.1 [facility] Comment on above: Performed By: #### B MP #### [facility] [address] [address] [address] Roscoe Segal Sodium [Moles/Vol] 139 mmol/L Normal 136-145 [facility] Comment on above: Performed By: #### B MP #### [facility] [address] [address] [address] Roscoe Segal Urea nitrogen [Mass/Vol] 9.0 mg/dL Normal 7.0-18.0 [facility] Comment on above: Performed By: #### B MP #### [facility] [address] [address] [address] Roscoe Segal Urea nitrogen/Creatinine [Mass ratio] 9.7 mg/mg Normal [facility] Comment on above: Performed By: #### B MP #### [facility] [address] [address] [address] Roscoe Segal XR CHEST 1 Von [...] GERMAINE FARRELL Date: 2022-04-25 09:41 Normal [facility] GLYCOHEMOGLOBIN A1Con 2021 ADA RECOMMENDATION SEE BELOW Normal [facility] Comment on above: Result Comment: ADA RECOMMENDED LIMIT 4.0 - 6.0 ADA THERAPEUTIC TARGET < 7.0 ACTION SUGGESTED > 7.0 Performed By: #### P OCGLUC #### [facility] [address] [address] [address] Roscoe Segal Glucose [Mass/Vol] 128 mg/dL Normal [facility] Comment on above: Performed By: #### P OCGLUC #### [facility] [address] [address] [address] Roscoe Segal HbA1c (Bld) [Mass fraction] 6.1 % Normal 4.5-6.2 [facility] Comment on above: Performed By: #### P OCGLUC #### [facility] [address] [address] [address] Roscoe Segal LIPID PROFILEon 04-10-2022 CHOL-HDL RATIO NORM SEE BELOW Normal [facility] Comment on above: Result Comment: 3.3 - 4.4 LOW RISK 4.4 - 7.1 AVERAGE RISK 7.1 - 11.0 MODERATE RISK >11.0 HIGH RISK Performed By: #### L IPID #### [facility] [address] [address] [address] Roscoe Segal Cholesterol [Mass/Vol] 125 mg/dL Normal <=200 [facility] Comment on above: Performed By: #### L IPID #### [facility] [address] [address] [address] Roscoe Segal Cholesterol in HDL [Mass/Vol] 69 mg/dL Critically high 40-60 [facility] Comment on above: Performed By: #### L IPID #### [facility] [address] [address] [address] Roscoe Segal Cholesterol in LDL [Mass/Vol] 31.8 mg/dL Normal [facility] Comment on above: Performed By: #### L IPID #### [facility] [address] [address] [address] Roscoe Segal Cholesterol.total/Chol esterol in HDL [Mass ratio] 1.8 {ratio} Normal [facility] Comment on above: Performed By: #### L IPID #### [facility] [address] [place] [address] Dr. Roscoe Segal HDL NORMAL > or = 60 mg/dl - LO W CARDIOVASCULAR RISK <40 mg/dl - HIGH CARDIOVASCULAR RISK Normal [facility] Comment on above: Performed By: #### L IPID #### [facility] [address] [place] [address] Dr. Roscoe Segal LDL CALC NORMAL SEE BELOW Normal [facility] Comment on above: Result Comment: <100 mg/dl OPTIMAL 100 - 129 mg/dl NEAR OR ABOVE OPTIMAL 130 - 159 mg/dl BORDERLINE HIGH 160 - 189 mg/dl HIGH >190 mg/dl VERY HIGH Performed By: #### L IPID #### [facility] [address] [place] [address] Dr. Roscoe Segal Triglyceride [Mass/Vol] 121 mg/dL Normal <=150 [facility] Comment on above: Performed By: #### L IPID #### [facility] [address] [place] [address] Dr. Roscoe Segal VLDL CALC 24.2 mg/dL Normal [facility] Comment on above: Performed By: #### L IPID #### [facility] [address] [place] [address] Dr. Roscoe Segal Covid-19 PCR ([facility])on 03-16 SARS-CoV-2 (COVID-19) RNA SOILA+probe Ql (Unsp spec) Not detected Normal NOT DETECTED [facility] Comment on above: Result Comment: This test is not yet approved or cleared by the [place] FDA. When there are no FDA-approved or cleared tests available, and other criteria are met, FDA can make tests available under an emergency access mechanism called an Emergency Use Authorization (EUA). The EUA for this test is supported by the Quality Control Clerk of Health and Human Service's (HHS's) declaration [...] SARS-CoV-2. Performed By: #### P OCGLUC #### [facility] [address] [place] [address] Dr. Roscoe Segal XR CHEST 1 Von [...] YASMIN HUERTAS Date: 2022-03-29 15:39 Normal [facility] CBC AUTO DIFFon 03-21-2022 BASO # 0.1 103/ul Normal 0.0-0.1 [facility] Comment on above: Performed By: #### C BC #### [facility] [address] [place] [address] Dr. Roscoe Segla Basophils/100 WBC (Bld) 0.6 % Normal 0.2-2.0 [facility] Comment on above: Performed By: #### C BC #### [facility] [address] [address] [address] Roscoe Segal EO # 0.3 103/ul Normal 0.0-0.7 [facility] Comment on above: Performed By: #### C BC #### [facility] [address] [address] [address] Roscoe Segal Eosinophils/100 WBC (Bld) 2.1 % Normal 0.9-7.0 [facility] Comment on above: Performed By: #### C BC #### [facility] [address] [address] [address] Roscoe Segal Erythrocyte distribution width (RBC) [Ratio] 14.7 % Normal 11.0-15.0 [facility] Comment on above: Performed By: #### C BC #### [facility] [address] [place] [address] Dr. Roscoe Segal Hematocrit (Bld) [Volume fraction] 47.1 % Normal 36.0-48.0 [facility] Comment on above: Performed By: #### C BC #### [facility] [address] [place] [address] Dr. Roscoe Segal Hemoglobin (Bld) [Mass/Vol] 15.6 g/dL Normal 12.0-16.0 [facility] Comment on above: Performed By: #### C BC #### [facility] [address] [address] [address] Roscoe Segal IG # 0.05 10e3/ul Critically high 0.00-0.03 [facility] Comment on above: Performed By: #### C BC #### [facility] [address] [address] [address] Roscoe Segal IG % 0.4 % Normal 0.0-0.5 [facility] Comment on above: Performed By: #### C BC #### [facility] [address] [address] [address] Roscoe Segal LYMPH # 3.9 103/ul Critically high 1.2-3.8 [facility] Comment on above: Performed By: #### C BC #### [facility] [address] [place] [address] Dr. Roscoe Segal Lymphocytes/100 WBC (Bld) 32.1 % Normal 20.5-60.0 [facility] Comment on above: Performed By: #### C BC #### [facility] [address] [place] [address] Dr. Roscoe Segal MANUAL DIFF REQ NO Normal [facility] Comment on above: Performed By: #### C BC #### [facility] [address] [place] [address] Dr. Roscoe Segal MCH (RBC) [Entitic mass] 31.9 pg Normal 26.7-34.0 [facility] Comment on above: Performed By: #### C BC #### [facility] [address] [place] [address] Dr. Roscoe Segal MCHC (RBC) [Mass/Vol] 33.1 g/dL Normal 29.9-35.2 [facility] Comment on above: Performed By: #### C BC #### [facility] [address] [place] [address] Dr. Roscoe Segal MCV (RBC) [Entitic vol] 96.3 fL Normal 81.0-99.0 [facility] Comment on above: Performed By: #### C BC #### [facility] [address] [place] [address] Dr. Roscoe Segal MONO # 0.9 103/ul Critically high 0.3-0.8 [facility] Comment on above: Performed By: #### C BC #### [facility] [address] [place] [address] Dr. Roscoe Segal Monocytes/100 WBC (Bld) 7.4 % Normal 1.7-12.0 [facility] Comment on above: Performed By: #### C BC #### [facility] [address] [place] [address] Dr. Roscoe Segal NEUT # 7.0 103/ul Critically high 1.4-6.5 [facility] Comment on above: Performed By: #### C BC #### [facility] [address] [place] [address] Dr. Roscoe Segal Neutrophils/100 WBC (Bld) 57.4 % Normal 43.0-75.0 [facility] Comment on above: Performed By: #### C BC #### [facility] [address] [place] [address] Dr. Roscoe Segal Platelet mean volume (Bld) [Entitic vol] 8.8 fL Critically low 9.5-13.5 [facility] Comment on above: Performed By: #### C BC #### [facility] [address] [place] [address] Dr. Roscoe Segal PLT 417 103/ul Normal 150-450 [facility] Comment on above: Performed By: #### C BC #### [facility] [address] [place] [address] Dr. Roscoe Segal RBC 4.89 106/ul Normal 4.20-5.40 [facility] Comment on above: Performed By: #### C BC #### [facility] [address] [place] [address] Dr. Roscoe Segal WBC 12.1 103/ul Critically high 4.0-11.0 [facility] Comment on above: Performed By: #### C BC #### [facility] [address] [place] [address] Dr. Roscoe Segal [facility]on SARS-CoV-2 (COVID-19) RNA SOILA+probe Ql (Unsp spec) Not detected Normal NOT DETECTED [facility] Comment on above: Result Comment: When [...] for this test is supported by the Quality Control Clerk of Health and Human Service's declaration that [...] used). Performed By: #### P OCGLUC #### [facility] [address] [place] [address] Dr. Roscoe Segal PROF CHEM 8 (BAS METB)on Anion gap [Moles/Vol] 13.4 mmol/L Normal [facility] Comment on above: Performed By: #### I NFLUAB #### [facility] [address] [place] [address] Dr. Roscoe Segal Calcium [Mass/Vol] 9.2 mg/dL Normal 8.5-10.1 [facility] Comment on above: Performed By: #### I NFLUAB #### [facility] [address] [place] [address] Dr. Roscoe Segal Chloride [Moles/Vol] 105 mmol/L Normal 98-107 [facility] Comment on above: Performed By: #### I NFLUAB #### [facility] [address] [place] [address] Dr. Roscoe Segal CO2 [Moles/Vol] 23.9 mmol/L Normal 21.0-32.0 [facility] Comment on above: Performed By: #### I NFLUAB #### [facility] [address] [place] [address] Dr. Roscoe Segal Creatinine [Mass/Vol] 0.93 mg/dL Normal 0.55-1.02 [facility] Comment on above: Performed By: #### I NFLUAB #### [facility] [address] [place] [address] Dr. Roscoe Segal EGFR-AF CITIZ[place] >60 Normal >=60 [facility] Comment on above: Performed By: #### I NFLUAB #### [facility] [address] [place] [address] Dr. Roscoe Segal EGFR-NON AF CITIZEN OF [place] >60 Normal >=60 [facility] Comment on above: Performed By: #### I NFLUAB #### [facility] [address] [address] [address] Roscoe Segal Glucose [Mass/Vol] 141 mg/dL Critically high 74-106 T [facility] Comment on above: Performed By: #### I NFLUAB #### [facility] [address] [address] [address] Roscoe Segal Potassium [Moles/Vol] 4.3 mmol/L Normal 3.5-5.1 [facility] Comment on above: Performed By: #### I NFLUAB #### [facility] [address] [place] [address] Dr. Roscoe Segal Sodium [Moles/Vol] 138 mmol/L Normal 136-145 [facility] Comment on above: Performed By: #### I NFLUAB #### [facility] [address] [place] [address] Dr. Roscoe Segal Urea nitrogen [Mass/Vol] 9.0 mg/dL Normal 7.0-18.0 [facility] Comment on above: Performed By: #### I NFLUAB #### [facility] [address] [place] [address] Dr. Roscoe Segal Urea nitrogen/Creatinine [Mass ratio] 9.7 mg/mg Normal [facility] Comment on above: Performed By: #### I NFLUAB #### [facility] [address] [place] [address] Dr. Roscoe Segal CARDIAC VICK 3-6on 2 CK [Catalytic activity/Vol] 60 U/L Normal 26-192 [facility] Comment on above: Performed By: #### P OCGLUC #### [facility] [address] [place] [address] Dr. Roscoe Segal CK.MB [Mass/Vol] 1.84 ng/mL Normal <=3.60 [facility] Comment on above: Performed By: #### P OCGLUC #### [facility] [address] [place] [address] Dr. Roscoe Segal HSTROP 8.3 pg/mL Normal 4.0-51.3 [facility] Comment on above: Result Comment: CUT- OFF POINTS HAVE BEEN ESTABLISHED BASED ON THE FOURTH UNIVERSAL DEFINITIONS OF MYOCARDIAL INFARCTION. THE UPPER REFERENCE LIMIT (URL) OF TROPONIN, DEFINED THE 99TH PERCENTILE OF cTnI DISTRIBUTION IN A REFERENCE POPULATION, HAS BEEN CONFIRMED THE DECISION THRESHOLD FOR [place] DIAGNOSIS. Performed By: #### P OCGLUC #### [facility] [address] [place] [address] Dr. Roscoe Segal CK [Catalytic activity/Vol] 57 U/L Normal 26-192 [facility] Comment on above: Performed By: #### I NFLUAB #### [facility] [address] [place] [address] Dr. Roscoe Segal CK.MB [Mass/Vol] 1.82 ng/mL Normal <=3.60 [facility] Comment on above: Performed By: #### I NFLUAB #### [facility] [address] [place] [address] Dr. Roscoe Segal HSTROP 8.1 pg/mL Normal 4.0-51.3 [facility] Comment on above: Result Comment: CUT- OFF POINTS HAVE BEEN ESTABLISHED BASED ON THE FOURTH UNIVERSAL DEFINITIONS OF MYOCARDIAL INFARCTION. THE UPPER REFERENCE LIMIT (URL) OF TROPONIN, DEFINED THE 99TH PERCENTILE OF cTnI DISTRIBUTION IN A REFERENCE POPULATION, HAS BEEN CONFIRMED THE DECISION THRESHOLD FOR [place] DIAGNOSIS. Performed By: #### I NFLUAB #### [facility] [address] [place] [address] Dr. Roscoe Segal CARDIAC VICK ADMITon 022 CK [Catalytic activity/Vol] 64 U/L Normal 26-192 [facility] Comment on above: Performed By: #### P OCGLUC #### [facility] [address] [place] [address] Dr. Roscoe Segal CK.MB [Mass/Vol] 2.19 ng/mL Normal <=3.60 [facility] Comment on above: Performed By: #### P OCGLUC #### [facility] [address] [place] [address] Dr. Roscoe Segal HSTROP 7.6 pg/mL Normal 4.0-51.3 [facility] Comment on above: Result Comment: CUT- OFF POINTS HAVE BEEN ESTABLISHED BASED ON THE FOURTH UNIVERSAL DEFINITIONS OF MYOCARDIAL INFARCTION. THE UPPER REFERENCE LIMIT (URL) OF TROPONIN, DEFINED THE 99TH PERCENTILE OF cTnI DISTRIBUTION IN A REFERENCE POPULATION, HAS BEEN CONFIRMED THE DECISION THRESHOLD FOR [place] DIAGNOSIS. Performed By: #### P OCGLUC #### [facility] [address] [place] [address] Dr. Roscoe Segal GWEN 50 ng/mL Normal 9-82 [facility] Comment on above: Performed By: #### P OCGLUC #### [facility] [address] [place] [address] Dr. Roscoe Segal CBC AUTO DIFFon 03-03-2022 BASO # 0.1 103/ul Normal 0.0-0.1 [facility] Comment on above: Performed By: #### P OCGLUC #### [facility] [address] [place] [address] Dr. Roscoe Segal Basophils/100 WBC (Bld) 0.7 % Normal 0.2-2.0 [facility] Comment on above: Performed By: #### P OCGLUC #### [facility] [address] [place] [address] Dr. Roscoe Segal EO # 0.2 103/ul Normal 0.0-0.7 [facility] Comment on above: Performed By: #### P OCGLUC #### [facility] [address] [place] [address] Dr. Roscoe Segal Eosinophils/100 WBC (Bld) 1.3 % Normal 0.9-7.0 [facility] Comment on above: Performed By: #### P OCGLUC #### [facility] [address] [place] [address] Dr. Roscoe Segal Erythrocyte distribution width (RBC) [Ratio] 14.5 % Normal 11.0-15.0 [facility] Comment on above: Performed By: #### P OCGLUC #### [facility] [address] [place] [address] Dr. Roscoe Segal Hematocrit (Bld) [Volume fraction] 44.8 % Normal 36.0-48.0 [facility] Comment on above: Performed By: #### P OCGLUC #### [facility] [address] [place] [address] Dr. Roscoe Segal Hemoglobin (Bld) [Mass/Vol] 15.0 g/dL Normal 12.0-16.0 [facility] Comment on above: Performed By: #### P OCGLUC #### [facility] [address] [address] [address] Roscoe Segal IG # 0.07 10e3/ul Critically high 0.00-0.03 [facility] Comment on above: Performed By: #### P OCGLUC #### [facility] [address] [place] [address] Dr. Roscoe Segal IG % 0.6 % Critically high 0.0-0.5 [facility] Comment on above: Performed By: #### P OCGLUC #### [facility] [address] [place] [address] Dr. Roscoe Segal LYMPH # 4.7 103/ul Critically high 1.2-3.8 [facility] Comment on above: Performed By: #### P OCGLUC #### [facility] [address] [place] [address] Dr. Roscoe Segal Lymphocytes/100 WBC (Bld) 38.7 % Normal 20.5-60.0 [facility] Comment on above: Performed By: #### P OCGLUC #### [facility] [address] [place] [address] Dr. Roscoe Segal MANUAL DIFF REQ NO Normal [facility] Comment on above: Performed By: #### P OCGLUC #### [facility] [address] [place] [address] Dr. Roscoe Segal MCH (RBC) [Entitic mass] 32.1 pg Normal 26.7-34.0 [facility] Comment on above: Performed By: #### P OCGLUC #### [facility] [address] [place] [address] Dr. Roscoe Segal MCHC (RBC) [Mass/Vol] 33.5 g/dL Normal 29.9-35.2 [facility] Comment on above: Performed By: #### P OCGLUC #### [facility] [address] [place] [address] Dr. Roscoe Segal MCV (RBC) [Entitic vol] 95.7 fL Normal 81.0-99.0 [facility] Comment on above: Performed By: #### P OCGLUC #### [facility] [address] [place] [address] Dr. Roscoe Segal MONO # 1.0 103/ul Critically high 0.3-0.8 [facility] Comment on above: Performed By: #### P OCGLUC #### [facility] [address] [place] [address] Dr. Roscoe Segal Monocytes/100 WBC (Bld) 7.9 % Normal 1.7-12.0 [facility] Comment on above: Performed By: #### P OCGLUC #### [facility] [address] [place] [address] Dr. Roscoe Segal NEUT # 6.2 103/ul Normal 1.4-6.5 [facility] Comment on above: Performed By: #### P OCGLUC #### [facility] [address] [place] [address] Dr. Roscoe Segal Neutrophils/100 WBC (Bld) 50.8 % Normal 43.0-75.0 [facility] Comment on above: Performed By: #### P OCGLUC #### [facility] [address] [place] [address] Dr. Roscoe Segal Platelet mean volume (Bld) [Entitic vol] 8.8 fL Critically low 9.5-13.5 [facility] Comment on above: Performed By: #### P OCGLUC #### [facility] [address] [place] [address] Dr. Roscoe Segal PLT 407 103/ul Normal 150-450 [facility] Comment on above: Performed By: #### P OCGLUC #### [facility] [address] [place] [address] Dr. Roscoe Segal RBC 4.68 106/ul Normal 4.20-5.40 [facility] Comment on above: Performed By: #### P OCGLUC #### [facility] [address] [address] [address] Roscoe Segal WBC 12.2 103/ul Critically high 4.0-11.0 [facility] Comment on above: Performed By: #### P OCGLUC #### [facility] [address] [place] [address] Dr. Roscoe Segal LACTATE/LACTIC ACIDon 2021 Lactate [Moles/Vol] 2.1 mmol/L Critically high 0.4-1.9 [facility] Comment on above: Performed By: #### P OCGLUC #### [facility] [address] [place] [address] Dr. Roscoe Segal Lactate [Moles/Vol] 2.2 mmol/L Critically high 0.4-1.9 [facility] Comment on above: Performed By: #### P OCGLUC #### [facility] [address] [place] [address] Dr. Roscoe Segal POINT OF CARE GLUCOSEon 02-13 Glucose [Mass/Vol] 109 mg/dL Critically high 74-106 [facility] Comment on above: Performed By: #### P OCGLUC #### [facility] [address] [place] [address] Dr. Roscoe Segal Glucose [Mass/Vol] 108 mg/dL Critically high 74-106 [facility] Comment on above: Performed By: #### P OCGLUC #### [facility] [address] [place] [address] Dr. Roscoe Segal Glucose [Mass/Vol] 98 mg/dL Normal 74-106 [facility] Comment on above: Performed By: #### I NFLUAB #### [facility] [address] [place] [address] Dr. Roscoe Segal Glucose [Mass/Vol] 274 mg/dL Critically high 74-106 [facility] Comment on above: Performed By: #### C BC #### [facility] [address] [place] [address] Dr. Roscoe Segal Glucose [Mass/Vol] 87 mg/dL Normal 74-106 [facility] Comment on above: Performed By: #### P OCGLUC #### [facility] [address] [address] [address] Roscoe Segal Glucose [Mass/Vol] 98 mg/dL Normal 74-106 [facility] Comment on above: Performed By: #### P OCGLUC #### [facility] [address] [address] [address] Roscoe Segal Glucose [Mass/Vol] 131 mg/dL Critically high 74-106 [facility] Comment on above: Performed By: #### P OCGLUC #### [facility] [address] [address] [address] Roscoe Segal Glucose [Mass/Vol] 59 mg/dL Critically low 74-106 [facility] Comment on above: Performed By: #### P OCGLUC #### [facility] [address] [address] [address] Roscoe Segal Glucose [Mass/Vol] 95 mg/dL Normal 74-106 [facility] Comment on above: Performed By: #### P OCGLUC #### [facility] [address] [place] [address] Dr. Roscoe Segal PROF CHEM 8 (BAS METB)on Anion gap [Moles/Vol] 15.2 mmol/L Normal [facility] Comment on above: Performed By: #### P OCGLUC #### [facility] [address] [address] [address] Roscoe Segal Calcium [Mass/Vol] 8.7 mg/dL Normal 8.5-10.1 [facility] Comment on above: Performed By: #### P OCGLUC #### [facility] [address] [place] [address] Dr. Roscoe Segal Chloride [Moles/Vol] 108 mmol/L Critically high 98-107 [facility] Comment on above: Performed By: #### P OCGLUC #### [facility] [address] [place] [address] Dr. Roscoe Segal CO2 [Moles/Vol] 20.8 mmol/L Critically low 21.0-32.0 [facility] Comment on above: Performed By: #### P OCGLUC #### [facility] [address] [address] [address] Roscoe Segal Creatinine [Mass/Vol] 1.21 mg/dL Critically high 0.55-1.02 [facility] Comment on above: Performed By: #### P OCGLUC #### [facility] [address] [address] [address] Roscoe Segal EGFR-AF [place] 58 mL/min/1.73m2 Critically low >=60 [facility] Comment on above: Performed By: #### P OCGLUC #### [facility] [address] [address] [address] Roscoe Segal EGFR-NON AF [place]IZ[place] 48 mL/min/1.73m2 Critically low >=60 [facility] Comment on above: Performed By: #### P OCGLUC #### [facility] [address] [address] [address] Roscoe Segal Glucose [Mass/Vol] 54 mg/dL Critically low 74-106 [facility] Comment on above: Performed By: #### P OCGLUC #### [facility] [address] [address] [address] Roscoe Segal Potassium [Moles/Vol] 3.0 mmol/L Critically low 3.5-5.1 [facility] Comment on above: Performed By: #### P OCGLUC #### [facility] [address] [address] [address] Roscoe Segal Sodium [Moles/Vol] 141 mmol/L Normal 136-145 [facility] Comment on above: Performed By: #### P OCGLUC #### [facility] [address] [address] [address] Roscoe Segal Urea nitrogen [Mass/Vol] 11.0 mg/dL Normal 7.0-18.0 [facility] Comment on above: Performed By: #### P OCGLUC #### [facility] [address] [address] [address] Roscoe Segal Urea nitrogen/Creatinine [Mass ratio] 9.1 mg/mg Normal [facility] Comment on above: Performed By: #### P OCGLUC #### [facility] [address] [address] [address] Roscoe Segal XR CHEST 1 Von [...] JUAN SAID Date: 2022-03-03 01:14 Normal [facility] CBC AUTO DIFFon 01-01-2022 BASO # 0.1 103/ul Normal 0.0-0.1 [facility] Comment on above: Performed By: #### P OCGLUC #### [facility] [address] [address] [address] Roscoe Segal Basophils/100 WBC (Bld) 0.7 % Normal 0.2-2.0 [facility] Comment on above: Performed By: #### P OCGLUC #### [facility] [address] [place] [address] Dr. Roscoe Segal EO # 0.1 103/ul Normal 0.0-0.7 [facility] Comment on above: Performed By: #### P OCGLUC #### [facility] [address] [address] [address] Roscoe Segal Eosinophils/100 WBC (Bld) 0.9 % Normal 0.9-7.0 [facility] Comment on above: Performed By: #### P OCGLUC #### [facility] [address] [place] [address] Dr. Roscoe Segal Erythrocyte distribution width (RBC) [Ratio] 14.5 % Normal 11.0-15.0 [facility] Comment on above: Performed By: #### P OCGLUC #### [facility] [address] [address] [address] Roscoe Segal Hematocrit (Bld) [Volume fraction] 41.4 % Normal 36.0-48.0 [facility] Comment on above: Performed By: #### P OCGLUC #### [facility] [address] [address] [address] Roscoe Segal Hemoglobin (Bld) [Mass/Vol] 13.4 g/dL Normal 12.0-16.0 [facility] Comment on above: Performed By: #### P OCGLUC #### [facility] [address] [address] [address] Roscoe Segal IG # 0.08 10e3/ul Critically high 0.00-0.03 [facility] Comment on above: Performed By: #### P OCGLUC #### [facility] [address] [place] [address] Dr. Roscoe Segal IG % 0.7 % Critically high 0.0-0.5 [facility] Comment on above: Performed By: #### P OCGLUC #### [facility] [address] [place] [address] Dr. Roscoe Segal LYMPH # 2.4 103/ul Normal 1.2-3.8 [facility] Comment on above: Performed By: #### P OCGLUC #### [facility] [address] [place] [address] Dr. Roscoe Segal Lymphocytes/100 WBC (Bld) 22.0 % Normal 20.5-60.0 [facility] Comment on above: Performed By: #### P OCGLUC #### [facility] [address] [place] [address] Dr. Roscoe Segal MANUAL DIFF REQ NO Normal [facility] Comment on above: Performed By: #### P OCGLUC #### [facility] [address] [place] [address] Dr. Roscoe Segal MCH (RBC) [Entitic mass] 31.2 pg Normal 26.7-34.0 [facility] Comment on above: Performed By: #### P OCGLUC #### [facility] [address] [address] [address] Roscoe Segal MCHC (RBC) [Mass/Vol] 32.4 g/dL Normal 29.9-35.2 [facility] Comment on above: Performed By: #### P OCGLUC #### [facility] [address] [address] [address] Roscoe Segal MCV (RBC) [Entitic vol] 96.3 fL Normal 81.0-99.0 [facility] Comment on above: Performed By: #### P OCGLUC #### [facility] [address] [address] [address] Roscoe Segal MONO # 0.9 103/ul Critically high 0.3-0.8 [facility] Comment on above: Performed By: #### P OCGLUC #### [facility] [address] [place] [address] Dr. Roscoe Segal Monocytes/100 WBC (Bld) 7.7 % Normal 1.7-12.0 [facility] Comment on above: Performed By: #### P OCGLUC #### [facility] [address] [address] [address] Roscoe Segal NEUT # 7.5 103/ul Critically high 1.4-6.5 [facility] Comment on above: Performed By: #### P OCGLUC #### [facility] [address] [address] [address] Roscoe Segal Neutrophils/100 WBC (Bld) 68.0 % Normal 43.0-75.0 [facility] Comment on above: Performed By: #### P OCGLUC #### [facility] [address] [address] [address] Roscoe Segal Platelet mean volume (Bld) [Entitic vol] 8.8 fL Critically low 9.5-13.5 [facility] Comment on above: Performed By: #### P OCGLUC #### [facility] [address] [address] [address] Roscoe Segal PLT 317 103/ul Normal 150-450 [facility] Comment on above: Performed By: #### P OCGLUC #### [facility] [address] [place] [address] Dr. Roscoe Segal RBC 4.30 106/ul Normal 4.20-5.40 [facility] Comment on above: Performed By: #### P OCGLUC #### [facility] [address] [place] [address] Dr. Roscoe Segal WBC 11.1 103/ul Critically high 4.0-11.0 [facility] Comment on above: Performed By: #### P OCGLUC #### [facility] [address] [place] [address] Dr. Roscoe Segal Covid-19 PCR (CVDTB)on 12-14 SARS-CoV-2 (COVID-19) RNA SOILA+probe Ql (Unsp spec) Not detected Normal NOT DETECTED [facility] Comment on above: Result Comment: When [...] for this test is supported by the [place] of Health and Human Service's declaration that [...] used). Performed By: #### P OCGLUC #### [facility] [address] [place] [address] Dr. Roscoe Segal ETHANOL (BLD ALC)on 01-02-20 22 ALC NOTE NOTE: 80 mg/dl is th e legal limit for a blood alcohol level Normal [facility] Comment on above: Performed By: #### C BC #### [facility] [address] [place] [address] Dr. Roscoe Segal Ethanol [Mass/Vol] 197 mg/dL Normal [facility] Comment on above: Performed By: #### C BC #### [facility] [address] [address] [address] Roscoe Segal PROF CHEM 8 (BAS METB)on Anion gap [Moles/Vol] 16.4 mmol/L Normal [facility] Comment on above: Performed By: #### I NFLUAB #### [facility] [address] [place] [address] Dr. Roscoe Segal Calcium [Mass/Vol] 8.2 mg/dL Critically low 8.5-10.1 [facility] Comment on above: Performed By: #### I NFLUAB #### [facility] [address] [place] [address] Dr. Roscoe Segal Chloride [Moles/Vol] 107 mmol/L Normal 98-107 [facility] Comment on above: Performed By: #### I NFLUAB #### [facility] [address] [place] [address] Dr. Roscoe Segal CO2 [Moles/Vol] 21.3 mmol/L Normal 21.0-32.0 [facility] Comment on above: Performed By: #### I NFLUAB #### [facility] [address] [place] [address] Dr. Roscoe Segal Creatinine [Mass/Vol] 0.78 mg/dL Normal 0.55-1.02 [facility] Comment on above: Performed By: #### I NFLUAB #### [facility] [address] [place] [address] Dr. Roscoe Segal EGFR-AF [place]IZ[place] >60 Normal >=60 [facility] Comment on above: Performed By: #### I NFLUAB #### [facility] [address] [place] [address] Dr. Roscoe Segal EGFR-NON AF [place]IZ[place] >60 Normal >=60 [facility] Comment on above: Performed By: #### I NFLUAB #### [facility] [address] [place] [address] Dr. Roscoe Segal Glucose [Mass/Vol] 310 mg/dL Critically high 74-106 T [facility] Comment on above: Performed By: #### I NFLUAB #### [facility] [address] [address] [address] Roscoe Segal Potassium [Moles/Vol] 3.7 mmol/L Normal 3.5-5.1 [facility] Comment on above: Performed By: #### I NFLUAB #### [facility] [address] [address] [address] Roscoe Segal Sodium [Moles/Vol] 141 mmol/L Normal 136-145 [facility] Comment on above: Performed By: #### I NFLUAB #### [facility] [address] [place] [address] Dr. Roscoe Segal Urea nitrogen [Mass/Vol] 8.0 mg/dL Normal 7.0-18.0 [facility] Comment on above: Performed By: #### I NFLUAB #### [facility] [address] [place] [address] Dr. Roscoe Segal Urea nitrogen/Creatinine [Mass ratio] 10.3 mg/mg Normal [facility] Comment on above: Performed By: #### I NFLUAB #### [facility] [address] [place] [address] Dr. Roscoe Segal XR CHEST 1 Von [...] GERMAINE FARRELL Date: 2022-01-01 19:08 Normal [facility] CBC AUTO DIFFon 12-24-2021 BASO # 0.1 103/ul Normal 0.0-0.1 [facility] Comment on above: Performed By: #### I NFLUAB #### [facility] [address] [place] [address] Dr. Roscoe Segal Basophils/100 WBC (Bld) 0.9 % Normal 0.2-2.0 [facility] Comment on above: Performed By: #### I NFLUAB #### [facility] [address] [place] [address] Dr. Roscoe Segal EO # 0.2 103/ul Normal 0.0-0.7 [facility] Comment on above: Performed By: #### I NFLUAB #### [facility] [address] [place] [address] Dr. Roscoe Segal Eosinophils/100 WBC (Bld) 2.4 % Normal 0.9-7.0 [facility] Comment on above: Performed By: #### I NFLUAB #### [facility] [address] [place] [address] Dr. Roscoe Segal Erythrocyte distribution width (RBC) [Ratio] 14.8 % Normal 11.0-15.0 [facility] Comment on above: Performed By: #### I NFLUAB #### [facility] [address] [place] [address] Dr. Roscoe Segal Hematocrit (Bld) [Volume fraction] 41.1 % Normal 36.0-48.0 [facility] Comment on above: Performed By: #### I NFLUAB #### [facility] [address] [place] [address] Dr. Roscoe Segal Hemoglobin (Bld) [Mass/Vol] 13.0 g/dL Normal 12.0-16.0 [facility] Comment on above: Performed By: #### I NFLUAB #### [facility] [address] [place] [address] Dr. Roscoe Segal IG # 0.10 10e3/ul Critically high 0.00-0.03 [facility] Comment on above: Performed By: #### I NFLUAB #### [facility] [address] [place] [address] Dr. Roscoe Segal IG % 1.1 % Critically high 0.0-0.5 [facility] Comment on above: Performed By: #### I NFLUAB #### [facility] [address] [place] [address] Dr. Roscoe Segal LYMPH # 2.0 103/ul Normal 1.2-3.8 [facility] Comment on above: Performed By: #### I NFLUAB #### [facility] [address] [place] [address] Dr. Roscoe Segal Lymphocytes/100 WBC (Bld) 21.5 % Normal 20.5-60.0 [facility] Comment on above: Performed By: #### I NFLUAB #### [facility] [address] [place] [address] Dr. Roscoe Segal MANUAL DIFF REQ NO Normal [facility] Comment on above: Performed By: #### I NFLUAB #### [facility] [address] [place] [address] Dr. Roscoe Segal MCH (RBC) [Entitic mass] 31.0 pg Normal 26.7-34.0 [facility] Comment on above: Performed By: #### I NFLUAB #### [facility] [address] [place] [address] Dr. Roscoe Segal MCHC (RBC) [Mass/Vol] 31.6 g/dL Normal 29.9-35.2 [facility] Comment on above: Performed By: #### I NFLUAB #### [facility] [address] [place] [address] Dr. Roscoe Segal MCV (RBC) [Entitic vol] 98.1 fL Normal 81.0-99.0 [facility] Comment on above: Performed By: #### I NFLUAB #### [facility] [address] [place] [address] Dr. Roscoe Segal MONO # 0.8 103/ul Normal 0.3-0.8 [facility] Comment on above: Performed By: #### I NFLUAB #### [facility] [address] [place] [address] Dr. Roscoe Segal Monocytes/100 WBC (Bld) 8.9 % Normal 1.7-12.0 [facility] Comment on above: Performed By: #### I NFLUAB #### [facility] [address] [address] [address] Roscoe Segal NEUT # 6.0 103/ul Normal 1.4-6.5 [facility] Comment on above: Performed By: #### I NFLUAB #### [facility] [address] [address] [address] Roscoe Segal Neutrophils/100 WBC (Bld) 65.2 % Normal 43.0-75.0 [facility] Comment on above: Performed By: #### I NFLUAB #### [facility] [address] [place] [address] Dr. Roscoe Segal Platelet mean volume (Bld) [Entitic vol] 9.4 fL Critically low 9.5-13.5 [facility] Comment on above: Performed By: #### I NFLUAB #### [facility] [address] [place] [address] Dr. Roscoe Segal PLT 332 103/ul Normal 150-450 [facility] Comment on above: Performed By: #### I NFLUAB #### [facility] [address] [place] [address] Dr. Roscoe Segal RBC 4.19 106/ul Critically low 4.20-5.40 [facility] Comment on above: Performed By: #### I NFLUAB #### [facility] [address] [address] [address] Roscoe Segal WBC 9.2 103/ul Normal 4.0-11.0 [facility] Comment on above: Performed By: #### I NFLUAB #### [facility] [address] [place] [address] Dr. Roscoe Segal GLYCOHEMOGLOBIN A1Con 2021 ADA RECOMMENDATION SEE BELOW Normal [facility] Comment on above: Result Comment: ADA RECOMMENDED LIMIT 4.0 - 6.0 ADA THERAPEUTIC TARGET < 7.0 ACTION SUGGESTED > 7.0 Performed By: #### C BC #### [facility] [address] [place], [place] [address] Dr. Roscoe Segal Glucose [Mass/Vol] 217 mg/dL Normal [facility] Comment on above: Performed By: #### C BC #### [facility] [id number] Roscoe Segal HbA1c (Bld) [Mass fraction] 9.2 % Critically high 4.5-6.2 [facility] Comment on above: Performed By: #### C BC #### [facility] [address] [address] [address] Roscoe Segal LIPID PROFILEon 12-24-2021 CHOL-HDL RATIO NORM SEE BELOW [facility] Comment on above: Result Comment: 3.3 - 4.4 LOW RISK 4.4 - 7.1 AVERAGE RISK 7.1 - 11.0 MODERATE RISK >11.0 HIGH RISK Performed By: #### C BC #### [facility] [address] [place] [address] Dr. Roscoe Segal Cholesterol [Mass/Vol] 191 mg/dL Normal <=200 Th [facility] [place] Comment on above: Performed By: #### C BC #### [facility] [address] [place] [address] Dr. Roscoe Segal Cholesterol in HDL [Mass/Vol] 52 mg/dL Normal 40-60 [facility] Comment on above: Performed By: #### C BC #### [facility] [address] [address] [address] Roscoe Segal Cholesterol in LDL [Mass/Vol] 95.6 mg/dL Normal [facility] Comment on above: Performed By: #### C BC #### [facility] [address] [address] [address] Roscoe Segal Cholesterol.total/Chol esterol in HDL [Mass ratio] 3.7 {ratio} Normal [facility] Comment on above: Performed By: #### C BC #### [facility] [address] [place] [address] Dr. Roscoe Segal HDL NORMAL > or = 60 mg/dl - LO W CARDIOVASCULAR RISK <40 mg/dl - HIGH CARDIOVASCULAR RISK Normal [facility] Comment on above: Performed By: #### C BC #### [facility] [address] [address] [address] Roscoe Segal LDL CALC NORMAL SEE BELOW Normal [facility] Comment on above: Result Comment: <100 mg/dl OPTIMAL 100 - 129 mg/dl NEAR OR ABOVE OPTIMAL 130 - 159 mg/dl BORDERLINE HIGH 160 - 189 mg/dl HIGH >190 mg/dl VERY HIGH Performed By: #### C BC #### [facility] [address] [place] [address] Dr. Roscoe Segal Triglyceride [Mass/Vol] 217 mg/dL Critically high <=150 [facility] Comment on above: Performed By: #### C BC #### [facility] [address] [place] [address] Dr. Roscoe Segal VLDL CALC 43.4 mg/dL Normal [facility] Comment on above: Performed By: #### C BC #### [facility] [address] [place] [address] Dr. Roscoe Segal MICROALBUMIN, RAND URon 12-14 mALB <1.3 Normal <=30.0 [facility] Comment on above: Performed By: #### P OCGLUC #### [facility] [address] [place] [address] Dr. Roscoe Segal PROF 14(COMP METB)on 022 Albumin [Mass/Vol] 3.0 g/dL Critically low 3.4-5.0 [facility] Comment on above: Performed By: #### C BC #### [facility] [address] [place] [address] Dr. Roscoe Segal Albumin/Globulin [Mass ratio] 0.9 {ratio} Normal [facility] Comment on above: Performed By: #### C BC #### [facility] [address] [place] [address] Dr. Roscoe Segal ALP [Catalytic activity/Vol] 72 U/L Normal 46-116 [facility] Comment on above: Performed By: #### C BC #### [facility] [address] [place] [address] Dr. Roscoe Segal ALT [Catalytic activity/Vol] 17 U/L Normal 14-59 [facility] Comment on above: Performed By: #### C BC #### [facility] [address] [address] [address] Roscoe Segal Anion gap [Moles/Vol] 12.3 mmol/L Normal Th [facility] [place] Comment on above: Performed By: #### C BC #### [facility] [address] [address] [address] Roscoe Segal AST [Catalytic activity/Vol] 15 U/L Normal 15-37 [facility] Comment on above: Performed By: #### C BC #### [facility] [address] [place] [address] Dr. Roscoe Segal Bilirubin [Mass/Vol] 0.1 mg/dL Critically low 0.2-1.0 [facility] Comment on above: Performed By: #### C BC #### [facility] [address] [place] [address] Dr. Roscoe Segal Calcium [Mass/Vol] 8.9 mg/dL Normal 8.5-10.1 [facility] Comment on above: Performed By: #### C BC #### [facility] [address] [place] [address] Dr. Roscoe Segal Chloride [Moles/Vol] 102 mmol/L Normal 98-107 [facility] Comment on above: Performed By: #### C BC #### [facility] [address] [address] [address] Roscoe Segal CO2 [Moles/Vol] 24.0 mmol/L Normal 21.0-32.0 [facility] Comment on above: Performed By: #### C BC #### [facility] [address] [place] [address] Dr. Roscoe Segal Creatinine [Mass/Vol] 0.91 mg/dL Normal 0.55-1.02 [facility] Comment on above: Performed By: #### C BC #### [facility] [address] [place] [address] Dr. Roscoe Segal EGFR-AF [place]IZ[place] >60 Normal >=60 [facility] Comment on above: Performed By: #### C BC #### [facility] [address] [address] [address] Roscoe Segal EGFR-NON AF CITIZEN OF [place] >60 Normal >=60 [facility] Comment on above: Performed By: ####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 Attending Dr: Eron Wood [...] MPV Neut % (Auto) Lymph % (Auto) [place] % (Auto) Eos % (Auto) Baso % (Auto) Nucleat RBC Rel Count Neut # (Auto) Lymph # (Auto) [place] # (Auto) Eos # (Auto) Baso # [...] MPV Neut % (Auto) Lymph % (Auto) [place] % (Auto) Eos % (Auto) Baso % (Auto) Nucleat RBC Rel Count Neut # (Auto) Lymph # (Auto) [place] # (Auto) Eos # (Auto) Baso # [...] % (Auto) 73.7 Lymph % (Auto) 13.5 [place] % (Auto) 9.2 Eos % (Auto) 2.9 Baso % (Auto) 0.7 Nucleat RBC Rel Count 0.1 Neut # (Auto) 7.2 Lymph # (Auto) 1.3 [place] # (Auto) 0.9 H Eos # (Auto) [...] MPV Neut % (Auto) Lymph % (Auto) [place] % (Auto) Eos % (Auto) Baso % (Auto) Nucleat RBC Rel Count Neut # (Auto) Lymph # (Auto) [place] # (Auto) Eos # (Auto) Baso # [...] by Valeriano Horta MD> 03/12/23 0908 [facility] Work Phone: 1(368) 793-132007-28-2023 Progress note Author Eron Wood [facility] March 12, 2023 9:03am Note Date/Time March 12, 2023 9:[address] [facility] [address] [place] [address] Hospitalist Progress Note Signed Patient: Christiane Perez MR#: [id number] : 1975 Acct:[id number] Age/Sex: 48 / F Adm Date: 3 Loc: 3T Room: [address] [place] [address] Type: ADM IN Attending Dr: Eron Wood [...] Insuln.Pen SUBCUT 03/09/24 16:59 Not Given TID.WM.HS [facility] Protocol Insulin Glargine 10 units [...] Appreciate pulmonary and thoracic surgery. Continue morphine, [place] as needed for pain. (2) Pneumonia: Plan: [...] by Eron Wood MD> 03/12/23 0903 [facility] Work Phone: [phone]) 285-319807-27-2023 [facility] Consult note Author Errol Nicole [facility] March 11, 2023 12:00pm Note Date/Time March 11, 2023 12:[address] [facility] [address] [place] [address] Pulmonology Consult Note Signed Patient: Christiane Perez MR#: [id number] : 1975 Acct:[id number] Age/Sex: 48 / F Adm Date: 3 Loc: Room: [address] [place] [address] Type: ADM IN Attending Dr: Eron Wood [...] x- ray, then a CT, done at [facility] and was told that she had an abscess in the left lung . She refused to be admitted, went home on Levaquin and clindamycin, followed up with her primary care physician who advised her to come back and be admitted here at [facility]. Patient has a large dense consolidated [...] mcg-glycopyr 9 mcg-formot 4.8 mcg/actuation HFA inhaler (Enchanted Diamondsztri The Price Wizardsphere) 1 puff inhalation DAILY 03/10/23 [History Confirmed [...] by Errol Nicole MD> 03/11/23 1200 [facility] Work Phone: 1(855) 409-968707-27-2023 Progress note Author Eron Wood [facility] March 11, 2023 10:50am Note Date/Time March 11, 2023 10:[address] [facility] [address] [place] [address] Hospitalist Progress Note Signed Patient: Christiane Perez MR#: [id number] : 1975 Acct:[id number] Age/Sex: 48 / F Adm Date: 3 Loc: Room: [address] [place] [address] Type: ADM IN Attending Dr: Eron Wood [...] 1,000 Ml IV 03/09/24 16:44 75 mls/hr .[id number] ROGELIO Administration Magnesium Sulfate 2 gm in [...] Insuln.Pen SUBCUT 03/09/24 16:59 Not Given TID.WM.HS [facility] Protocol Insulin Glargine 20 units [...] and thoracic surgery. Sendsputum culture. Continue morphine, [place] as needed for pain. Stop IV fluid [...] 1046 Signed By: <Electronically signed by Eron Wodo MD> 03/11/23 1050 [facility] Work Phone: [phone]) 772-960707-26-2023 History and physical note Author Eron Wood [facility] March 10, 2023 4:48pm Note Date/Time March 10, 2023 4:[address] [facility] [address] [place] [address] Hospitalist H&P Signed Patient: Christiane Perez MR#: [id number] : 1975 Acct:[id number] Age/Sex: 48 / F Adm Date: 3 Loc: Room: [address] [place] [address] Type: ADM IN Attending Dr: Eron Wood [...] negative unless noted below or in HPI [facility] Medical History (Updated 03/10/23 @ 16:46 by [...] 9 mcg-formot 4.8 mcg/actuation HFA inhaler (Breztri The Price Wizardsphere) 1 puff inhalation DAILY 03/10/23 [History Confirmed [...] % (Auto) 5.7 % (.) 03/10/23 12:55 [place] % (Auto) 7.2 % (.) 03/10/23 12:55 Eos % (Auto) 1.1 % (.) 03/10/23 12:55 Baso % (Auto) 0.2 % (.) 03/10/23 12:55 Nucleat RBC Rel Count 0.1 /100 WBC (0-0.5) 03/10/23 12:55 Neut # (Auto) 14.2 x10E3/uL (1.8-7.7) H 03/10/23 12:55 Lymph # (Auto) 1.0 x10E3/uL (1.00-4.8) 03/10/23 12:55 [place] # (Auto) 1.2 x10E3/uL (0.0-0.8) H 03/10/23 [...] <Electronically signed by Eron Wood MD> 03/10/23 7717 [facility] Work Phone: 1(891) 147-783107-26-2023 Consult note Author Valeriano Horta [facility] March 10, 2023 3:27pm Note Date/Time March 10, 2023 3:[address] [facility] [address] [place] [address] Cardiothoracic Consult Note Signed Patient: Christiane Perez MR#: [id number] : 1975 Acct:[id number] Age/Sex: 48 / F Adm Date: 3 Loc: ER Room: Type: [facility] ER Attending Dr: Copies to: DO Valeriano Morris MD Shaikh Fawwad, MD~ HPI Consult Date: 03/10/23 Primary Care Provider: Shaikh Anthony MD Consult Narrative Reason for consult: lung abscess HPI: Ms. Perez is a 48 year old female with persistent SOB. CT read as lung abscess with elevated WBC. Pt agreed with admission. Chart and CT reviewed. [facility] Medical History (Updated 03/10/23 @ 15:26 by [...] by Valeriano Horta MD> 03/10/23 1527 [facility] Work Phone: 1(337) 273-779507-02-2023 Evaluation note* Encounter Date Diagnosis Assessment Notes [...] evaluation for possible sequelae into bronchitis/pneumoni a. [employer] Other 08-26-2022 NotePROCEDURE: XR HIP RT 2 3V WO PELVIS HISTORY: Pain in right hip joint , chronic COMPARISON: None. FINDINGS: BONES:No fracture, acute abnormality, or significant arthropathy. SOFT TISSUES:No visible soft tissue swelling. EFFUSION:None visible. OTHER: Negative. IMPRESSION: 1. Normal examination. Electronically authenticated by: GERMAINE FARRELL Date: 2022-04-10 08:14[facility] Author Krunal Kelly [facility] March 17, 2023 1:24pm Note Date/Time March 14, 2023 1:[address] [facility] [address] [place] [address] Discharge Summary Signed Patient: Christiane Perez MR#: [id number] : 1975 Acct:[id number] Age/Sex: 48 / F Adm Date: 3 Loc: Room: [address] [place] [address]: Krunal Kelly DO Copies to: [...] % (Auto) 71.0, Lymph % (Auto) 16.8, [place] % (Auto) 7.1, Eos % (Auto) 4.4, Baso % (Auto) 0.7, Nucleat RBC Rel Count 0.1, Neut # (Auto) 6.8, Lymph # (Auto) 1.6, [place] # (Auto) 0.7, Eos # (Auto) 0.4, [...] DAY FOR 10 DAYS Follow Up: Errol Nicoel MD [Active Staff] - (Office will call [...] by Krunal Kelly, DO> 03/17/23 1324 [facility] Work Phone: Evaluation noteNo Assessments Information Available [facility] noteNo assessment information available [facility] noteNo InformationNort [email or web address] Other Evaluation note* Diagnosis Onset Date Resolution Status Abscess of left lung with pneumonia acute Abscess of lung acute COPD (chronic obstructive pulmonary disease) acute Diabetes mellitus, type 2 ac dimple Lung mass acute Pneumonia acute Tobacco abuse acute [facility] Work Phone: Evalutawwt note* Diagnosis Hoarse- Primary Dysphonia Chronic laryngitis [...] parital hysterectomy 2009 Hospitalization History see above [employer] Other [employer] general Narrative - Reported* Type Description Date Medical History DIABETIC Medical History BI POLAR Medical History NEUROPATHY IN LEGS Medical History COPD Medical History GENITAL HERPES Medical History high cholesterol Medical History high blood pressure Surgical History Cholecystectomy Surgical History tonsillectomy Surgical History breast reduction 1996 Surgical History parital hysterectomy 2009 Hospitalization History [facility] [place] Lung Abcess 03/2023 Hospitalization History aspiration pneumonia 201 5 [employer] Other [employer] general Narrative - Reported* Type Description Date Medical History DIABETIC Medical History BI POLAR Medical History NEUROPATHY IN LEGS Medical History COPD Medical History GENITAL HERPES Medical History high cholesterol Medical History high blood pressure Medical History [facility] lung abcess 02/2023 -- [facility] [place] Surgical History Cholecystectomy Surgical History tonsillectomy Surgical History breast reduction 1996 Surgical History parital hysterectomy 2009 Hospitalization History [facility] [place] Lung Abcess 03/2023 Hospitalization History aspiration pneumonia 201 5 [employer] Other Hospital Discharge instructions Additional Instructions Continue home oxygen per chronic orders.[facility] Work Phone: Hospital Discharge instructions Additional Instructions Steroids daily Use albuterol inhaler as instructed Push fluids Rest Follow with your PCP Avoid smoking Return here if any problems persist worse[facility] Work Phone: Advance Directives No [...] Provider Specialty Nurse Pract itioner Referred Organization [facility] Referred Provider Naomi Bernard Referred Address [address] [place], [place],[address] Referred Provider Specialty Ear, Nose an d [...] DATE CREATED AUTHOR AUTHOR'S ORGANIZ ATION 02/19/2023 [facility] DATE CREATED AUTHOR AUTHOR'S ORGANIZ ATION 03/24/2023 [facility] DATE CREATED AUTHOR AUTHOR'S ORGANIZ ATION 10/02/2023 [facility] DATE CREATED AUTHOR AUTHOR'S ORGANIZ ATION 10/21/2023 [facility] DATE CREATED AUTHOR AUTHOR'S ORGANIZ ATION 01/12/2024 [facility] EPIC REASON FOR [...] Rasheed Crzu MD Primary Care Provider Active Valeriano Horta [...] Active Errol Nicole MD Attending Provider Active Electronics Instructor Relationship Specialty Start Date End Date Shaikh Cruz MD PCP - General Internal Medicine 02/24/23 Electronics Instructor Relationship Specialty Start Date End Date Shaikh Cruz MD [address] [place] [address] PCP - General Internal Medicine 09/29/23 Electronics Instructor Relationship Specialty Start Date End Date Shaikh Cruz MD [address] [place] [address] PCP - General Internal Medicine 09/29/23 [...] BE BASED ON THE PRIMARY CLINICAL RECORDS. [employer] [facility]. provides no warranty or guarantee of the accuracy or completeness of information in this document.
[2024-01-18 07:33] LABS: Influenza Virus A Antigen Negative; Influenza Virus B Antigen Negative; Internal Control Within Normal Limits
[2024-01-18 07:52] LABS: ABG PCO2 77.3 mmHg (35.0-45.0); HCO3 ABG 30.9 mmol/L (22.0-26.0); PO2 ABG 61.1 mmHg (80.0-100.0)
[2024-01-18 07:53] LABS: Allen Test POSITIVE (POSITIVE); BIPAP Pressure 16/8; Fractionated Inspired Oxygen 40 %; O2 Mode BIPAP; Oxygen Saturation ABG 90.7 %
[2024-01-18] MEDS: METHYLPREDNISOLONE SOD SUCC PF 40 MG/ML VIAL IVP ×4 (07:53→23:41)
[2024-01-18 07:54] LABS: Rate 14
[2024-01-18] MEDS: IPRATROPIUM/ALBUTEROL SULFATE 3 ML AMPUL.NEB IH ×5 (07:58→23:14)
[2024-01-18] MEDS: INSULIN ASPART 300 UNIT/3 ML PEN SUBQ ×3 (08:08→21:26)
[2024-01-18] MEDS: VANCOMYCIN HCL 2,000 MG in 0.9 % SODIUM CHLORIDE 500 ML 250 MG IV (08:08)
[2024-01-18 08:14] LABS: Glucometer 149 mg/dL (74-106)
[2024-01-18 08:27] LABS: Hematocrit 44.5 % (36.0-48.0); Hemoglobin 13.8 g/dL (12.0-16.0); Mean Corpuscular Hemoglobin 32.5 pg (26.7-34.0); Mean Platelet Volume 9.2 fL (9.5-13.5); Platelet Count 321 10^3/uL (150-450); Red Blood Count 4.24 10^6/uL (4.20-5.40); Red Cell Distribution Width 14.2 % (11.0-15.0); White Blood Count 7.4 10^3/uL (4.0-11.0)
[2024-01-18 08:36] LABS: Atypical Lymphocytes Abs Man 0.14; Basophils Abs Manual 0.07 10^3/uL (0.00-0.10); Eosinophils Absolute Manual 0.07 10^3/uL (0.00-0.70); Lymphocytes Absolute Manual 2.14 10^3/uL (1.20-3.80); Monocytes Absolute Manual 0.44 10^3/uL (0.30-0.80); Segmented Neut Absolute Manual 4.51 10^3/uL (1.4-6.5)
[2024-01-18 08:42] LABS: Alanine Aminotransferase 16 U/L (14-59); Albumin Globulin Ratio 0.5; Albumin Level 2.1 g/dL (3.4-5.0); Alkaline Phosphatase 98 U/L (46-116); Anion Gap 7.2; Aspartate Amino Transferase 11 U/L (15-37); BUN Creatinine Ratio 2.7; Bilirubin Total 0.1 mg/dL (0.2-1.0); Calcium 8.3 mg/dL (8.5-10.1); Carbon Dioxide 33.3 mmol/L (21.0-32.0); Chloride 105 mmol/L (98-107); Estimated GFR (African America >60 (>=60); Estimated GFR (Non-African Ame >60 (>=60); Globulin 3.9 g/dL; Glucose 166 mg/dL (74-106); Potassium 3.5 mmol/L (3.5-5.1); Sodium 142 mmol/L (136-145)
[2024-01-18 09:17] LABS: Bilirubin Urine NEGATIVE (NEGATIVE); Blood Urine NEGATIVE (NEGATIVE); Clarity Urine CLEAR (CLEAR); Color Urine YELLOW (YELLOW); Glucose Urine UA >=1000 mg/dL (NEGATIVE); Ketones Urine NEGATIVE (NEGATIVE); Leukocyte Esterase Urine NEGATIVE (NEGATIVE); Nitrite Urine NEGATIVE (NEGATIVE); Protein Urine TRACE mg/dL (NEG/TRACE); Urobilinogen Urine 0.2 EU/dL (0.2-1.0)
[2024-01-18 09:26] LABS: RBC Urine NONE SEEN #/HPF (0-2); WBC Urine NONE SEEN #/HPF (NONE SEEN)
[2024-01-18 09:27] LABS: Bacteria Urine NONE SEEN #/HPF (NONE SEEN); Mucus Urine SMALL (NONE SEEN); Squamous Epithelial Cell Urine MODERATE #/LPF (NONE/RARE)
--- NOTE | 2024-01-18 09:40 | CM.NOTE ---
Rounds made with Dr. Cruz, pt remains on BIPAP at this time. Pt is awaking to voice and answers questions approp. Pt will have CT of chest this afternoon for further evaluation.
[2024-01-18 09:51] LABS: Glucometer 102 mg/dL (74-106)
[2024-01-18] MEDS: ENOXAPARIN SODIUM 40 MG/0.4 ML SYRINGE SUBQ (10:10)
[2024-01-18] MEDS: OMEPRAZOLE 40 MG CAPSULE.DR PO (10:10)
[2024-01-18] MEDS: ATORVASTATIN CALCIUM 40 MG TABLET PO (10:10)
[2024-01-18] MEDS: LAMOTRIGINE 100 MG TABLET 150 MG PO (10:11)
[2024-01-18] MEDS: GUAIFENESIN 600 MG TAB.ER.12H PO (10:11)
[2024-01-18] MEDS: ESCITALOPRAM 10 MG TABLET 20 MG PO (10:12)
[2024-01-18] MEDS: PIPERACILLIN SODIUM/TAZOBACTAM 3.375 GM in 0.9 % SODIUM CHLORIDE 50 ML IV ×2 (10:12→17:15)
[2024-01-18] MEDS: BUDESONIDE 0.5 MG/2 ML AMPULE NEB IH ×2 (10:52→23:14)
--- NOTE | 2024-01-18 11:05 | P.HP_ITS ---
HPI H&P: HPI History of Present Illness Chief complaint: WEAKNESS Narrative: 48-year-old female with severe COPD was experiencing generalized weakness/tiredness. She was also more drowsy and confused over the past couple of days. She came to ED last night and was found to have acute respiratory failure with hypercapnia secondary to bacterial pneumonia and COPD exacerbation. She was admitted to ICU on BiPAP initially treated with IV Rocephin and azithromycin. However, given her recent antibiotic use and prednisone use for COPD exacerbation, I will treat her for hospital-acquired pneumonia and switched her to IV vancomycin and Zosyn. I adjusted her BiPAP setting earlier today and there is a slow and steady improvement in her hypercapnia and respiratory acidosis. He was very drowsy and sleepy earlier today but more awake and alert and communicating later in the afternoon. I consulted pulmonology for her. Patient's mother relates some concern that she is on too many medications including gabapentin/Ativan and that she may have been overmedicated. Patient has history of bipolar disorder along with generalized anxiety disorder and sees psychiatry for her mental health illness. Denies suicidal ideation/homicidal ideation. Mood stable. Opioid HPI Opioid Management Most Recent Opioid Data: Last Pain Scale 9 05/08/23 20:52 Last Pain Assessment 01/18/24 11:00 Review of Systems ROS Status of ROS 10 or more systems reviewed and unremark able except as noted in history and below [facility] Medical History (Updated 01/18/24 @ 11:36 by Shaikh Anthony MD) Bipolar 2 disorder ?F31.81 - Bipolar II disorder (ICD-10) Smoker ?F17.200 - Nicotine dependence, unspecified, uncomplicated (ICD-10) HLD (hyperlipidemia) ?E78.5 - Hyperlipidemia, unspecified (ICD-10) HTN (hypertension) ?I10 - Essential (primary) hypertension (ICD-10) Type 2 diabetes mellitus ?E11.9 - Type 2 diabetes mellitus without complications (ICD-10) Social History Smoking status: Current every day smoker Meds Home Medications and Allergies Home Medications ?Medication ?Instructions ?Recorded ?Confirmed ?Type atorvastatin 40 mg tablet 40 mg PO DAILY 03/07/23 01/18/24 History budesonide 160 mcg-glycopyr 9 1 inh inhalation BID 03/07/23 01/18/24 History mcg-formot 4.8 mcg/actuation HFA inhaler (Breztri Aerosphere) dapagliflozin propanediol 10 mg 10 mg PO DAILY 03/07/23 01/18/24 History tablet (Farxiga) dulaglutide 1.5 mg/0.5 mL 3 mg subcut QWEEK 03/07/23 01/18/24 History [facility] escitalopram oxalate 20 mg tablet 20 mg PO DAILY 03/07/23 01/18/24 History gabapentin 800 mg tablet 800 mg PO TID 03/07/23 01/18/24 History ibuprofen 800 mg tablet 800 mg PO TID 03/07/23 01/18/24 History insulin aspart U-100 100 unit/mL 10 unit subcut TID 03/07/23 01/18/24 History (3 mL) subcutaneous pen (Novolog FlexPen U-100 Insulin aspart) lamotrigine 150 mg tablet 150 mg PO BID 03/07/23 01/18/24 History omeprazole 40 mg capsule,delayed 40 mg PO DAILY 03/07/23 01/18/24 History release risperidone 1 mg tablet 1 mg PO BID 03/07/23 01/18/24 History sitagliptin phos 100 mg-metformin 1 tab PO BEDTIME 03/07/23 01/18/24 History ER 1,000 mg tablet,extend rel 24h mp (Janumet XR) tizanidine 4 mg tablet 4 mg PO TID PRN muscle spasticity 03/07/23 01/18/24 History lorazepam 1 mg tablet (Ativan) 1 mg PO Q12H 05/08/23 01/18/24 History nicotine (polacrilex) 4 mg gum 4 mg buccal Q8H PRN nicotine 05/09/23 01/18/24 Rx (Nicorette) cravings #110 ea nicotine 21 mg/24 hr daily 1 patch transdermal Q24H #28 ea 05/09/23 01/18/24 Rx transdermal patch (Nicoderm CQ) tramadol 50 mg tablet 50 mg PO Q4H PRN pain #15 tabs 06/17/23 01/18/24 Rx Allergies Allergy/AdvReac Type Severity Reaction Status Date / Time sumatriptan [From Imitrex] Allergy Severe Verified 01/18/24 01:26 Exam Constitutional Vital Signs, click to edit/add: Last Vital Signs Temp 99.1 F 01/18/24 07:00 Pulse 84 01/18/24 09:54 Resp 31 H 01/18/24 08:20 BP 112/56 01/18/24 07:52 Pulse Ox 94 L 01/18/24 08:20 O2 Del Method BIPAP 01/18/24 11:00 O2 Flow Rate 5 01/18/24 02:00 FiO2 40 01/18/24 08:15 Documenting provider has reviewed patient's vital signs: yes Common normals: no apparent distress and oriented x3 General appearance: cooperative, lethargic and ill appearing HENMT Common normals: normocephalic and head/scalp atraumatic Head and scalp: normocephalic and atraumatic Eye Common normals: conjunctivae normal and no scleral icterus Conjunctiva: conjunctiva(e) normal Respiratory Common normals: normal respiratory effort Auscultation: wheezes and diminished lung sounds Other: On BIPAP No resp distress. Cardio Common normals: regular rate, S1 normal heart sound and S2 normal heart sound Rate: regular rate Heart sounds: S1 normal and S2 normal GI Common normals: Normal to inspection, nondistended, normoactive bowel sounds present, soft to palpation, non-tender and no hepatosplenomegaly Palpation: soft and no hepatosplenomegaly Extremity Common normals: no clubbing, cyanosis or edema Neuro Common normals: oriented x3, moves all extremities and no focal motor deficits Sensorium/orientation: lethargic and somnolent Psych Common normals: mental status grossly normal, denies hallucinations, denies homicidal ideation and denies suicidal ideation Results Labs Labs: Short CBC 01/18/24 01/18/24 Range/Units 01:22 08:16 WBC 9.1 7.4 (4.0-11.0) 10^3/uL Hgb 14.2 13.8 (12.0-16.0) g/dL Hct 46.3 44.5 (36.0-48.0) % Plt Count 337 321 (150-450) 10^3/uL BMP 01/18/24 01/18/24 01:22 08:16 Sodium 141 142 Potassium 3.3 L 3.5 Chloride 102 105 Carbon Dioxide 32.1 H 33.3 H BUN 3.0 L 2.0 L Creatinine 0.77 0.74 Glucose 224 H 166 H Calcium 8.8 8.3 L Liver Function 01/18/24 Range/Units 08:16 Total Bilirubin 0.1 L (0.2-1.0) mg/dL AST 11 L (15-37) U/L ALT 16 (14-59) U/L Alkaline Phosphatase 98 (46-116) U/L Albumin 2.1 L (3.4-5.0) g/dL Urine 01/18/24 Range/Units 08:30 Urine Color Yellow (YELLOW) Urine Clarity Clear (CLEAR) Urine pH 6.0 (5.0-9.0) Ur Specific Hurt 1.020 (1.005-1.025) Urine Protein Trace (NEG/TRACE) mg/dL Urine Glucose (UA) >=1000 A (NEGATIVE) mg/dL ABG ABG results: 01/18/24 01/18/24 01/18/24 01:55 03:00 07:35 ABG pH 7.183 L* 7.208 L* 7.210 L* ABG pCO2 86.3 H* 81.2 H* 77.3 H* ABG pO2 127.0 H 68.4 L 61.1 L ABG HCO3 32.4 H 32.3 H 30.9 H ABG O2 Saturation 99.1 93.6 90.7 ABG Base Excess 4.1 H 4.4 H 3.0 H Assessment and Plan Assessment and Plan (1) Sepsis: Assessment and Plan: Qsofa (RR>22, sbp < 100), sirs (HR>90, rr> 20) with acute resp failure with hypercapnea. On BIPAP since admission. Hypercapnea/resp acidosis improving slowly. But still quite acidotic. C/w bipap. Pulm consulted. Qualifiers: Sepsis type: sepsis due to unspecified organism Sepsis acute organ dysfunction status: with acute organ dysfunction Severe sepsis acute organ dysfunction type: acute respiratory failure Acute respiratory failure type: with hypercapnia Severe sepsis shock status: without septic shock Qualified Code(s): A41.9 - Sepsis, unspecified organism; R65.20 - Severe sepsis without septic shock; J96.02 - Acute respiratory failure with hypercapnia (2) Acute respiratory failure with hypercapnia: Assessment and Plan: Currently on BiPAP. Slowly improving respiratory acidosis and hypercapnia. Continue with BiPAP treatment. Monitor closely. Treat underlying pneumonia/COPD exacerbation. Decreased gabapentin/ativan dose. Can't stop suddenly due to risk of withdrawal. (3) Acute exacerbation of chronic obstructive pulmonary disease: Assessment and Plan: Severe COPD and current smoker. History of recurrent COPD exacerbation and just finished using prednisone a few weeks ago Started patient on IV Solu-Medrol, DuoNebs every 4 hours. Monitor closely on BiPAP. (4) Hospital-acquired pneumonia: Assessment and Plan: Bilateral infiltrates on chest x-ray. CT chest ordered to rule out complicated pneumonia as she has prior history of lung abscess. On broad-spectrum antibiotics and currently on IV vancomycin/Zosyn. For resistant organism because of recurrent COPD exacerbation/prednisone use and recent antibiotic use. (5) Type 2 diabetes mellitus: Assessment and Plan: Closely monitor blood glucose while on Solu-Medrol. Sliding scale insulin. 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 Counseled on smoking. (8) Bipolar 2 disorder: Assessment and Plan: C/w home medications. Decrease gabapentin to 600 TID and ativan to 0.5 due to hypercapnia Plan Continue patient on BIPAP, monitor resp/hemodynamic status closely. F/u CT chest and pulm consult. C/w IV abx, steroids. F/u cultures. Patient is critically ill with high risk of poor outcome, clinical progression a nd needs close monitoring in ICU. Critical care time over 50 minutes spent on patient's evaluation/assessment, care co ordination. Urinary Catheter Management Urinary Catheter Management Urethral: Cath placed during this visit: yes Urethral indwelling: Yes Reason for continuing: measure accurate output Insertion date: 01/18/24 Insertion time: 09:10
[2024-01-18 11:07] LABS: HCO3 ABG 30.4 mmol/L (22.0-26.0); PO2 ABG 63.3 mmHg (80.0-100.0)
[2024-01-18 11:08] LABS: Allen Test POSITIVE (POSITIVE); BIPAP Pressure 18-8; Base Excess ABG 2.7 mmol/L (-2.0-2.0); Fractionated Inspired Oxygen 40 %; Oxygen Saturation ABG 92.5 %; Puncture Site LR; Rate 14
[2024-01-18 11:10] LABS: ABG PCO2 73.5 mmHg (35.0-45.0); pH ABG 7.225 (7.350-7.450)
[2024-01-18 11:53] LABS: Glucometer 78 mg/dL (74-106)
--- NOTE | 2024-01-18 12:12 | CM.NOTE ---
Important Message From Medicare discussed with pt, pt verbalizes understanding and wishes her mother to sign. Mother at bedside. Original given to pt and copy placed on pt's chart. Discussed with pt discharge planning. Pt lives at home with daughter. Pt has home oxygen that she wears at night. Oxygen is through [facility]. SW or Case management will follow pt for any discharge needs. Pt is open to HH services if she would need or benefit from at discharge. Pt does not have preference of HH agencies.
--- NOTE | 2024-01-18 12:47 | P.PLCN_ITS ---
History of Present Illness History of Present Illness Consult date: 01/18/24 Chief complaint: WEAKNESS Narrative: 48yo female presents with ~1 week duration of worsening dyspnea, weakness, and lethargy. Family is present in the room and note the patient has appeared more somnolent, slurring speech, and had conversational dyspnea. Upon presentation, she was obtunded and ABG noted significant acute hypercapnic respiratory failure (pH 7.18, pCO 86.3). She was started on BiPAP - repeated ABGs show a very slow improvement, with most recent values noted pH 7.23 and pCO2 73.5. She is currently able to open her eyes to voice and can answer questions. I used to see her outpatient, but she has been lost to F/U since 2018. She has frequent ER visits for AECOPD. She had history of CO2 retention in the past. She has PEPE and I was concerned she could be developing OHS, but she was non- compliant with her PAP. She also continues to smoke and is now up to 3 packs/day. Family voiced concern about overmedication contributing to her hypersomnolence. Review of Systems ROS Status of ROS unobtainable due to mental status (limited conversation based on hypersomnolence) [facility] Medical History (Updated 01/18/24 @ 13:12 by Cyrus Yancey DO) Bipolar 2 disorder ?F31.81 - Bipolar II disorder (ICD-10) Smoker ?F17.200 - Nicotine dependence, unspecified, uncomplicated (ICD-10) HLD (hyperlipidemia) ?E78.5 - Hyperlipidemia, unspecified (ICD-10) HTN (hypertension) ?I10 - Essential (primary) hypertension (ICD-10) Social History Smoking status: Current every day smoker Meds Home Medications and Allergies Home Medications ?Medication ?Instructions ?Recorded ?Confirmed ?Type atorvastatin 40 mg tablet 40 mg PO DAILY 03/07/23 01/18/24 History budesonide 160 mcg-glycopyr 9 1 inh inhalation BID 03/07/23 01/18/24 History mcg-formot 4.8 mcg/actuation HFA inhaler (Breztri Aerosphere) dapagliflozin propanediol 10 mg 10 mg PO DAILY 03/07/23 01/18/24 History tablet (Farxiga) dulaglutide 1.5 mg/0.5 mL 3 mg subcut QWEEK 03/07/23 01/18/24 [facility] escitalopram oxalate 20 mg tablet 20 mg PO DAILY 03/07/23 01/18/24 History gabapentin 800 mg tablet 800 mg PO TID 03/07/23 01/18/24 History ibuprofen 800 mg tablet 800 mg PO TID 03/07/23 01/18/24 History insulin aspart U-100 100 unit/mL 10 unit subcut TID 03/07/23 01/18/24 History (3 mL) subcutaneous pen (Novolog FlexPen U-100 Insulin aspart) lamotrigine 150 mg tablet 150 mg PO BID 03/07/23 01/18/24 History omeprazole 40 mg capsule,delayed 40 mg PO DAILY 03/07/23 01/18/24 History release risperidone 1 mg tablet 1 mg PO BID 03/07/23 01/18/24 History sitagliptin phos 100 mg-metformin 1 tab PO BEDTIME 03/07/23 01/18/24 History ER 1,000 mg tablet,extend rel 24h mp (Janumet XR) tizanidine 4 mg tablet 4 mg PO TID PRN muscle spasticity 03/07/23 01/18/24 History lorazepam 1 mg tablet (Ativan) 1 mg PO Q12H 05/08/23 01/18/24 History nicotine (polacrilex) 4 mg gum 4 mg buccal Q8H PRN nicotine 05/09/23 01/18/24 Rx (Nicorette) cravings #110 ea nicotine 21 mg/24 hr daily 1 patch transdermal Q24H #28 ea 05/09/23 01/18/24 Rx transdermal patch (Nicoderm CQ) tramadol 50 mg tablet 50 mg PO Q4H PRN pain #15 tabs 06/17/23 01/18/24 Rx Allergies Allergy/AdvReac Type Severity Reaction Status Date / Time sumatriptan [From Imitrex] Allergy Severe Verified 01/18/24 01:26 Exam Constitutional Vital Signs, click to edit/add: Last Vital Signs Temp 98.1 F 01/18/24 12:37 Pulse 74 01/18/24 12:37 Resp 18 01/18/24 12:37 BP 110/66 01/18/24 12:37 Pulse Ox 93 L 01/18/24 12:37 O2 Del Method BIPAP 01/18/24 12:37 O2 Flow Rate 5 01/18/24 02:00 FiO2 30 01/18/24 12:37 Other: Laying in bed, wearing BiPAP. Sleeping, but will awken to voice. HENMT Other: Wearing full face BiPAP mask Chest Chest: symmetrical chest wall rise Respiratory Other: Diminished breath sounds with diffuse expiratory wheezes Cardio Rate: regular rate Rhythm: regular rhythm GI Other: Obese, soft Neuro Other: No fasciculations or tremors Psych Other: Hypersomnolent. Mumbles, but is able to answer simple questions, but then falls back asleep. Results Laboratory Findings ABG, PT/INR, D-dimer: ABG ABG pH 7.225 (7.350-7.450) L* 01/18/24 11:00 ABG pCO2 73.5 mmHg (35.0-45.0) H* 01/18/24 11:00 ABG pO2 63.3 mmHg (80.0-100.0) L 01/18/24 11:00 ABG O2 Saturation 92.5 % 01/18/24 11:00 Abnormal lab findings: Abnormal Labs 01/18/24 01/18/24 01/18/24 01:22 01:55 03:00 MCV 103.3 H MPV 9.2 L Lymph % (Auto) 20.0 L [place] # (Auto) 0.9 H Abs Immat Gran (auto) 0.16 H Imm/Tot Granulo (auto) 1.8 H ABG pH 7.183 L* 7.208 L* ABG pCO2 86.3 H* 81.2 H* ABG pO2 127.0 H 68.4 L ABG HCO3 32.4 H 32.3 H ABG Base Excess 4.1 H 4.4 H Potassium 3.3 L Carbon Dioxide 32.1 H BUN 3.0 L Glucose 224 H Calcium Total Bilirubin AST Total Protein Albumin Urine Glucose (UA) Ur Squamous Epith Cells Urine Mucus POC Glucose 213 H 01/18/24 01/18/24 01/18/24 07:35 08:06 08:16 MCV 105.0 H MPV 9.2 L Lymph % (Auto) [place] # (Auto) Abs Immat Gran (auto) Imm/Tot Granulo (auto) ABG pH 7.210 L* ABG pCO2 77.3 H* ABG pO2 61.1 L ABG HCO3 30.9 H ABG Base Excess 3.0 H Potassium Carbon Dioxide 33.3 H BUN 2.0 L Glucose 166 H Calcium 8.3 L Total Bilirubin 0.1 L AST 11 L Total Protein 6.0 L Albumin 2.1 L Urine Glucose (UA) Ur Squamous Epith Cells Urine Mucus POC Glucose 149 H 01/18/24 01/18/24 08:30 11:00 MCV MPV Lymph % (Auto) [place] # (Auto) Abs Immat Gran (auto) Imm/Tot Granulo (auto) ABG pH 7.225 L* ABG pCO2 73.5 H* ABG pO2 63.3 L ABG HCO3 30.4 H ABG Base Excess 2.7 H Potassium Carbon Dioxide BUN Glucose Calcium Total Bilirubin AST Total Protein Albumin Urine Glucose (UA) >=1000 A Ur Squamous Epith Cells Moderate A Urine Mucus Small A POC Glucose Diagnostic Findings CT scan - chest: image reviewed Assessment and Plan Assessment and Plan (1) Hospital-acquired pneumonia: Assessment and Plan: Had ~5cm [facility] cavitary lesion 03/07/2023 which appears to be resolving. New RUL infiltrate is present in my opinion, though radiologist has not interpreted the chest CT as of this time. Patient has s/sx of severe sepsis. She states she has aspirated - question aspiration pneumonitis vs. pneumonia, especially with her being as obtunded as she is. Will continue with current antibiotic regimen and adjust according to C&S. (2) Acute exacerbation of chronic obstructive pulmonary disease: Assessment and Plan: Patient has history of recurrent exacerbations of COPD. She has been non- compliant with F/U (last outpatient F/U with me was 2017). She also continues to smoke and is now up to 3ppd. Continue nebulized budesonide along with DuoNebs, SoluMedrol. If she does not stop, any damage may be irreversible (if not already). (3) Acute respiratory failure with hypercapnia: Assessment and Plan: History of having elevated CO2 in the past, was concerned about OHS then, but currently this appears to be more acute hypercapnia associated with COPD. She was started on BiPAP, but there has been mininiscule improvement in her pH/pCO2 over the past ~10 hours. I adjusted the BiPAP to IPAP 20 and EPAP 5 to widen the driving pressure (increases Vt), leaving backup rate at 14. Also decreased FiO2 to 30% - SpO2 was 98% on 40% and then 35% - in order to decrease hyperoxic-induced hypercapnia. Discussed with family if she does not improve, may need to consider intubation. Family is also concerned about oversedation secondary to polypharmacy. Will need to monitor sedation/status once pH/pCO2 are corrected. Avoid opioids (which she has an overuse disorder) and benzodiazepines. (4) Cigarette nicotine dependence with nicotine-induced disorder: Assessment and Plan: Long-term smoking history, now she is up to 3ppd! Will need to director counseling bureau her on smoking cessation. Will start her on nicotine patch 21mg - on in AM and off @ HS. This may be insufficient for her and may require an additional 21mg patch seeing she smokes 3ppd. Will need to discuss smoking cessation (yet again) with her once her pH/pCO2 correct and she is more coherent. (5) PEPE (obstructive sleep apnea): Assessment and Plan: History of non-compliance with PAP use. Concerns for OHS. (6) DM2 (diabetes mellitus, type 2): Assessment and Plan: Need to monitor FSBS while on steroids. Qualifiers: Diabetes mellitus long term care administrator insulin use: unspecified [facility] insulin use status Diabetes mellitus complication status: without complication Qualified Code(s): E11.9 - Type 2 diabetes mellitus without complications (7) Obesity: Qualifiers: Obesity type: unspecified obesity type Obesity classification: adult class 1 (BMI 30 - 34.9) Serious obesity comorbidity presence: with serious comorbidity Body mass index: BMI 31.0-31.9 Qualified Code(s): E66.9 - Obesity, unspecified; Z68.31 - Body mass index [BMI] 31.0-31.9, adult Plan Patient's respiratory status remains tenuous, requiring continued ICU monitoring and BiPAP use. If her ABG do no improve, will need to consider intubation. She has history of intubation in the past for COPD. High risk of respiratory collapse/end-organ damage. 40 minutes critical care time.
[2024-01-18] MEDS: NICOTINE 21 MG PATCH.TD24 TD (12:53)
[2024-01-18] MEDS: GABAPENTIN 300 MG CAPSULE 600 MG PO (13:47)
[2024-01-18 14:51] LABS: pH ABG 7.268 (7.350-7.450)
[2024-01-18 14:52] LABS: ABG PCO2 64.9 mmHg (35.0-45.0)
[2024-01-18 14:53] LABS: Base Excess ABG 2.7 mmol/L (-2.0-2.0); HCO3 ABG 29.6 mmol/L (22.0-26.0); Oxygen Saturation ABG 91.3 %; PO2 ABG 57.4 mmHg (80.0-100.0)
[2024-01-18 14:54] LABS: Allen Test POSITIVE (POSITIVE); Fractionated Inspired Oxygen 30 %; O2 Mode BIPAP; Puncture Site RR
[2024-01-18 14:55] LABS: BIPAP Pressure 20/5
[2024-01-18 14:57] LABS: Rate 14
--- NOTE | 2024-01-18 16:19 | SWNOTE1 ---
Pt wears 3 liters of oxygen at night thru [facility]. SW to assess tomorrow, pt is on BIPAP.
[2024-01-18 17:25] LABS: Glucometer 210 mg/dL (74-106)
[2024-01-18] MEDS: INSULIN DETEMIR 300 UNIT/3 ML INSULN.PEN 20 UNIT SUBQ (21:26)
[2024-01-18] MEDS: VANCOMYCIN HCL 1,500 MG in 0.9 % SODIUM CHLORIDE 500 ML 250 MG IV (21:27)
[2024-01-18 21:30] LABS: Glucometer 208 mg/dL (74-106)
[2024-01-19] VITALS (127 sets, daily range): BP systolic 83–148; BP diastolic 48–96; PULSE 62–91; RESP 14–16; TEMP 36.2–37.3; O2SAT 79–100
[2024-01-19] MEDS: PIPERACILLIN SODIUM/TAZOBACTAM 3.375 GM in 0.9 % SODIUM CHLORIDE 50 ML IV ×3 (01:50→18:15)
[2024-01-19] MEDS: IPRATROPIUM/ALBUTEROL SULFATE 3 ML AMPUL.NEB IH ×6 (04:01→23:45)
[2024-01-19 04:46] LABS: Basophils Percent Auto 0.5 % (0.2-2.0); Hematocrit 45.5 % (36.0-48.0); Immature Granulocytes Abs Auto 0.11 10^3/uL (0.00-0.03); Immature Granulocytes Pct Auto 1.7 % (0.0-0.5); Lymphocytes Absolute Auto 0.7 10^3/uL (1.2-3.8); Mean Corpuscular HGB Conc 30.8 g/dL (29.9-35.2); Mean Corpuscular Hemoglobin 32.2 pg (26.7-34.0); Mean Corpuscular Volume 104.6 fL (81.0-99.0); Mean Platelet Volume 9.2 fL (9.5-13.5); Monocytes Absolute Auto 0.1 10^3/uL (0.3-0.8); Monocytes Percent Auto 1.7 % (1.7-12.0); Neutrophils Absolute Auto 5.7 10^3/uL (1.4-6.5); Neutrophils Percent Auto 86.1 % (43.0-75.0); Platelet Count 339 10^3/uL (150-450); Red Blood Count 4.35 10^6/uL (4.20-5.40); Red Cell Distribution Width 14.2 % (11.0-15.0); White Blood Count 6.6 10^3/uL (4.0-11.0)
[2024-01-19 05:01] LABS: Alanine Aminotransferase 11 U/L (14-59); Albumin Globulin Ratio 0.6; Albumin Level 2.2 g/dL (3.4-5.0); Alkaline Phosphatase 92 U/L (46-116); Anion Gap 10.8; Aspartate Amino Transferase 8 U/L (15-37); BUN Creatinine Ratio 10.1; Bilirubin Total 0.2 mg/dL (0.2-1.0); Calcium 8.5 mg/dL (8.5-10.1); Carbon Dioxide 29.1 mmol/L (21.0-32.0); Chloride 107 mmol/L (98-107); Estimated GFR (African America >60 (>=60); Estimated GFR (Non-African Ame >60 (>=60); Globulin 3.9 g/dL; Glucose 193 mg/dL (74-106); Potassium 3.9 mmol/L (3.5-5.1); Sodium 143 mmol/L (136-145); Total Protein 6.1 g/dL (6.4-8.2)
[2024-01-19] MEDS: 0.9 % SODIUM CHLORIDE 1,000 ML 100 ML IV ×3 (05:35→18:11)
[2024-01-19] MEDS: METHYLPREDNISOLONE SOD SUCC PF 40 MG/ML VIAL IVP (05:35)
[2024-01-19] MEDS: IBUPROFEN 400 MG TABLET 800 MG PO (05:35)
[2024-01-19] MEDS: ONDANSETRON PF 4 MG/2 ML VIAL IV (05:35)
[2024-01-19] MEDS: GABAPENTIN 300 MG CAPSULE 600 MG PO ×2 (05:36→14:28)
[2024-01-19 06:46] LABS: Allen Test POSITIVE (POSITIVE); Base Excess ABG 0.2 mmol/L (-2.0-2.0); Fractionated Inspired Oxygen 40 %; HCO3 ABG 27.7 mmol/L (22.0-26.0); O2 Mode BIPAP; Oxygen Saturation ABG 90.2 %; PO2 ABG 62.3 mmHg (80.0-100.0); Puncture Site RR
[2024-01-19 06:47] LABS: BIPAP Pressure 20/5; Rate 14
[2024-01-19 06:48] LABS: pH ABG 7.233 (7.350-7.450)
[2024-01-19 06:49] LABS: ABG PCO2 65.9 mmHg (35.0-45.0)
--- NOTE | 2024-01-19 07:21 | PM.PLPN ---
Progress Note: A&P Assessment and Plan (1) Hospital-acquired pneumonia: Assessment and Plan: Chest CT report returned positive for bronchiolitis. Will obtain full respiratory panel to see if she has a viral illness - initial influenza and COVID-19 screens were negative. Question any aspiration, but unable to assess at this point. Continue current antibiotics. (2) Acute exacerbation of chronic obstructive pulmonary disease: Assessment and Plan: Still remains very tight and wheezy. Already on budesonide + DuoNeb nebs. Will increase SoluMedrol dose. (3) Acute respiratory failure with hypercapnia: Assessment and Plan: Worsening acid/base status this AM with pH 7.233 and pCO2 65.9. Patient remains hypersomnolent. Asked patient if she were short of breath and she replied yes , and when asked if she wanted to be on the ventilator, she answered not really . Increased back-up rate to 16. Will recheck ABG later this morning. If it worsens and/or her mentation becomes more obtunded, will need to intubate. (4) Cigarette nicotine dependence with nicotine-induced disorder: Assessment and Plan: Heavy smoking history, up to 3ppd prior to current illness. Nicotine patch 21mg on in AM off @ HS. (5) PEPE (obstructive sleep apnea): Assessment and Plan: Non-compliant with PAP @ home. Question underlying OHS. (6) DM2 (diabetes mellitus, type 2): Assessment and Plan: Monitor FSBS while on steroids. Qualifiers: Diabetes mellitus complication status: without complication Diabetes mellitus detention insulin use: unspecified detention insulin use status Qualified Code(s): E11.9 - Type 2 diabetes mellitus without complications (7) Obesity: Assessment and Plan: Weight loss recommended. Qualifiers: Body mass index: BMI 31.0-31.9 Obesity classification: adult class 1 (BMI 30 - 34.9) Obesity type: unspecified obesity type Serious obesity comorbidity presence: with serious comorbidity Qualified Code(s): E66.9 - Obesity, unspecified; Z68.31 - Body mass index [BMI] 31.0-31.9, adult Plan Patient remains in ICU requiring critical care services. Remains on BiPAP, worsening respiratory acidosis despite tweaking settings. If she does not improve, may need to consider intubation. Will reassess later today. 35 minutes critical care time. Subjective Subjective Interval history: Discussed with RN. Patient was on NC @ 3L/min for a short period last night, but became more dyspneic and SpO2 dropped ~85%, so she has remained on the BiPAP for the remainder of the night. ABG this morning show a decline with pH 7.233 and pCO2 65.9. She remains lethargic but arousable.? Exam Constitutional Vital Signs, click to edit/add: Last Vital Signs Temp 97.2 F L 01/19/24 04:01 Pulse 88 01/19/24 06:52 Resp 18 01/19/24 04:01 BP 144/96 H 01/19/24 04:01 Pulse Ox 86 L 01/19/24 06:52 O2 Del Method BIPAP 01/19/24 06:52 O2 Flow Rate 3 01/19/24 05:00 FiO2 40 01/19/24 06:52 Documenting provider has reviewed patient's vital signs: yes Other: Sleepy, on BiPAP, does not appear to be in respiratory distress. HENMT Common normals: normocephalic Other: Wearing BiPAP mask Chest Other: Normal rise and fall of chest with respirations Respiratory Other: Currently on BiPAP 20/5. Back-up rate set at 14, breathing over it at times. Vt ~450-550mL. Continues to have diminished breath sounds, wheezy tight . Cardio Other: RRR GI Inspection: normal to inspection Extremity Other: No fasciculations Neuro Other: No tremors or seizure activity Psych Other: Patient remains quite hypersomnolent, but will awaken eyes. Answers questions, but drifts back asleep.
[2024-01-19 07:34] LABS: Glucometer 225 mg/dL (74-106)
[2024-01-19] MEDS: INSULIN ASPART 300 UNIT/3 ML PEN SUBQ ×3 (07:47→21:55)
--- NOTE | 2024-01-19 09:59 | PM.IMPN1 ---
Progress Note: A&P Assessment and Plan (1) Sepsis: Assessment and Plan: Stable hemodynamics. Secondary to pneumonia. On IV antibiotics. Persistent respiratory failure requiring BiPAP, anticipate that she will need to be intubated for respiratory failure. Follow-up cultures. Qualifiers: Sepsis type: sepsis due to unspecified organism Sepsis acute organ dysfunction status: with acute organ dysfunction Severe sepsis acute organ dysfunction type: acute respiratory failure Acute respiratory failure type: with hypercapnia Severe sepsis shock status: without septic shock Qualified Code(s): A41.9 - Sepsis, unspecified organism; R65.20 - Severe sepsis without septic shock; J96.02 - Acute respiratory failure with hypercapnia (2) Hospital-acquired pneumonia: Assessment and Plan: Continue with broad-spectrum antibiotic for presumed hospital-acquired pneumonia. Continue with IV vancomycin and Zosyn. Follow-up blood and sputum cultures. (3) Acute exacerbation of chronic obstructive pulmonary disease: Assessment and Plan: Lung sounds are severely diminished with little to no air movement. IV steroids increased by pulmonology. Continue with DuoNebs. (4) Acute respiratory failure with hypercapnia: Assessment and Plan: Little to no improvement on BiPAP. Repeat ABG ordered by pulmonology. Discussed mechanical ventilation and intubation with the patient, she is agreeable if needed. (5) Cigarette nicotine dependence with nicotine-induced disorder: Assessment and Plan: Continues to smoke and has had no success in quitting with multiple attempts in the past (6) Bipolar 2 disorder: Assessment and Plan: Stable mood continue with home medications. (7) HLD (hyperlipidemia): Assessment and Plan: Continue with statin. Qualifiers: Hyperlipidemia type: unspecified Qualified Code(s): E78.5 - Hyperlipidemia, unspecified (8) DM2 (diabetes mellitus, type 2): Assessment and Plan: Closely monitor blood glucose while on steroids. Will increase Levemir to 30 units. Qualifiers: Diabetes mellitus laboratory [facility] insulin use: unspecified detention insulin use status Diabetes mellitus complication status: without complication Qualified Code(s): E11.9 - Type 2 diabetes mellitus without complications Internal Medicine - PN: Subj Subjective Interval history: Seen and examined. Patient lethargic/confused. No overnight events. Exam Constitutional Vital Signs, click to edit/add: Last Vital Signs Temp 97.9 F 01/19/24 07:15 Pulse 90 01/19/24 07:54 Resp 20 01/19/24 07:40 BP 117/82 01/19/24 07:15 Pulse Ox 97 01/19/24 07:54 O2 Del Method BIPAP 01/19/24 06:52 O2 Flow Rate 3 01/19/24 05:00 FiO2 40 01/19/24 06:52 Documenting provider has reviewed patient's vital signs: yes Common normals: no apparent distress and oriented x3 General appearance: cooperative, lethargic and ill appearing HENMT Common normals: normocephalic and head/scalp atraumatic Head and scalp: normocephalic and atraumatic Eye Common normals: conjunctivae normal and no scleral icterus Conjunctiva: conjunctiva(e) normal Respiratory Common normals: no use of accessory muscles Auscultation: diminished lung sounds Other: Severely diminished lung sounds on left side. Mild rhonchi/wheezing heard on right. Cardio Common normals: regular rate, S1 normal heart sound and S2 normal heart sound Rate: regular rate Heart sounds: S1 normal and S2 normal GI Common normals: Normal to inspection, nondistended, normoactive bowel sounds present, soft to palpation, non-tender and no hepatosplenomegaly Palpation: soft and no hepatosplenomegaly Extremity Common normals: no clubbing, cyanosis or edema Neuro Common normals: oriented x3, moves all extremities and no focal motor deficits Sensorium/orientation: lethargic and somnolent Psych Common normals: mental status grossly normal, denies hallucinations, denies homicidal ideation and denies suicidal ideation Internal Medicine - PN: Obj Da Labs Labs: Laboratory Results - last 24 hr 01/18/24 01/18/24 01/18/24 11:00 11:49 14:30 WBC RBC Hgb Hct MCV MCH MCHC RDW Plt Count MPV Neut % (Auto) Lymph % (Auto) [place] % (Auto) Eos % (Auto) Baso % (Auto) Neut # (Auto) Lymph # (Auto) [place] # (Auto) Eos # (Auto) Baso # (Auto) Abs Immat Gran (auto) Imm/Tot Granulo (auto) Puncture Site Lr Rr ABG pH 7.225 L* 7.268 L* ABG pCO2 73.5 H* 64.9 H* ABG pO2 63.3 L 57.4 L* ABG HCO3 30.4 H 29.6 H ABG O2 Saturation 92.5 91.3 ABG Base Excess 2.7 H 2.7 H Emigdio Test Positive Positive FiO2 40 30 BiPAP 18-8 20/5 Sodium Potassium Chloride Carbon Dioxide Anion Gap BUN Creatinine Est GFR ( Amer) Est GFR (Non-Af Amer) BUN/Creatinine Ratio Glucose Calcium Total Bilirubin AST ALT Alkaline Phosphatase Total Protein Albumin Globulin Albumin/Globulin Ratio POC Glucose 78 01/18/24 01/18/24 01/19/24 17:15 21:23 04:03 WBC 6.6 RBC 4.35 Hgb 14.0 Hct 45.5 MCV 104.6 H MCH 32.2 MCHC 30.8 RDW 14.2 Plt Count 339 MPV 9.2 L Neut % (Auto) 86.1 H Lymph % (Auto) 10.0 L [place] % (Auto) 1.7 Eos % (Auto) 0.0 L Baso % (Auto) 0.5 Neut # (Auto) 5.7 Lymph # (Auto) 0.7 L [place] # (Auto) 0.1 L Eos # (Auto) 0.0 Baso # (Auto) 0.0 Abs Immat Gran (auto) 0.11 H Imm/Tot Granulo (auto) 1.7 H Puncture Site ABG pH ABG pCO2 ABG pO2 ABG HCO3 ABG O2 Saturation ABG Base Excess Emigdio Test FiO2 BiPAP Sodium 143 Potassium 3.9 Chloride 107 Carbon Dioxide 29.1 Anion Gap 10.8 BUN 8.0 Creatinine 0.79 Est GFR ( Amer) >60 Est GFR (Non-Af Amer) >60 BUN/Creatinine Ratio 10.1 Glucose 193 H Calcium 8.5 Total Bilirubin 0.2 AST 8 L ALT 11 L Alkaline Phosphatase 92 Total Protein 6.1 L Albumin 2.2 L Globulin 3.9 Albumin/Globulin Ratio 0.6 POC Glucose 210 H 208 H 01/19/24 01/19/24 06:34 07:33 WBC RBC Hgb Hct MCV MCH MCHC RDW Plt Count MPV Neut % (Auto) Lymph % (Auto) [place] % (Auto) Eos % (Auto) Baso % (Auto) Neut # (Auto) Lymph # (Auto) [place] # (Auto) Eos # (Auto) Baso # (Auto) Abs Immat Gran (auto) Imm/Tot Granulo (auto) Puncture Site Rr ABG pH 7.233 L* ABG pCO2 65.9 H* ABG pO2 62.3 L ABG HCO3 27.7 H ABG O2 Saturation 90.2 ABG Base Excess 0.2 Emigdio Test Positive FiO2 40 BiPAP 20/5 Sodium Potassium Chloride Carbon Dioxide Anion Gap BUN Creatinine Est GFR ( Amer) Est GFR (Non-Af Amer) BUN/Creatinine Ratio Glucose Calcium Total Bilirubin AST ALT Alkaline Phosphatase Total Protein Albumin Globulin Albumin/Globulin Ratio POC Glucose 225 H Urinary Catheter Management Urinary Catheter Management Urethral: Cath placed during this visit: yes Urethral indwelling: Yes Reason for continuing: measure accurate output Insertion date: 01/18/24 Insertion time: 09:10
--- NOTE | 2024-01-19 10:15 | CM.NOTE ---
Rounds made with Dr. Cruz. Plan to recheck labs (ABG) @ ~1100 today for further plan of care per Pulmonology. Dr. Cruz discussed plan of care with Ms. Perez and she is agreeable (potential plan for intubation).
[2024-01-19] MEDS: ENOXAPARIN SODIUM 40 MG/0.4 ML SYRINGE SUBQ (10:29)
[2024-01-19] MEDS: VANCOMYCIN HCL 1,500 MG in 0.9 % SODIUM CHLORIDE 500 ML 250 MG IV ×2 (10:30→21:48)
[2024-01-19] MEDS: NICOTINE 21 MG PATCH.TD24 TD (10:30)
[2024-01-19 10:42] LABS: Adenovirus NOT DETECTED (NOT DETECTE); Bordetella parapertussis NOT DETECTED (NOT DETECTE); Coronavirus 229E NOT DETECTED (NOT DETECTE); Coronavirus HKU1 NOT DETECTED (NOT DETECTE); Coronavirus NL63 NOT DETECTED (NOT DETECTE); Coronavirus OC43 NOT DETECTED (NOT DETECTE); Human Metapneumovirus NOT DETECTED (NOT DETECTE); Human Rhinovirus/Enterovirus NOT DETECTED (NOT DETECTE); Influenza A NOT DETECTED (NOT DETECTE); Influenza B NOT DETECTED (NOT DETECTE); Mycoplasma pneumoniae NOT DETECTED (NOT DETECTE); Parainfluenza Virus 1 NOT DETECTED (NOT DETECTE); Parainfluenza Virus 2 NOT DETECTED (NOT DETECTE); Parainfluenza Virus 3 NOT DETECTED (NOT DETECTE); Parainfluenza Virus 4 NOT DETECTED (NOT DETECTE); Respiratory Syncytial Virus NOT DETECTED (NOT DETECTE); SARS-CoV-2 NOT DETECTED (NOT DETECTE)
[2024-01-19] MEDS: BUDESONIDE 0.5 MG/2 ML AMPULE NEB IH ×2 (11:22→23:45)
[2024-01-19 11:38] LABS: Allen Test POS (POSITIVE); Fractionated Inspired Oxygen 40 %; HCO3 ABG 29.2 mmol/L (22.0-26.0); O2 Mode BIPAP; Oxygen Saturation ABG 95.1 %; PO2 ABG 76.5 mmHg (80.0-100.0); Puncture Site L RADIAL
[2024-01-19 11:39] LABS: BIPAP Pressure 20/5; Rate 16
[2024-01-19 11:40] LABS: ABG PCO2 66.4 mmHg (35.0-45.0); pH ABG 7.252 (7.350-7.450)
[2024-01-19 11:50] LABS: Glucometer 155 mg/dL (74-106)
--- NOTE | 2024-01-19 12:41 | XR_ITS ---
The [address] [address] Patient Name: DIAN RAY MRN: [id number] date: 1975 Sex: F Assigned Patient Location: ICU Current Patient Location: ICU Accession/Order Number: [id number] Exam Date: 01/19/2024 13:35 Report Date: 01/19/2024 13:56 At the request of: MONAE GOLDMAN Procedure: XR chest 1V EXAMINATION: XR chest 1V HISTORY: Post intubation- acute hypercapnic resp. failure COMPARISON: XR chest 01/18/2024 FINDINGS: LUNGS: Endotracheal tube with tip approximately 4.3 cm above the chase. Expanded lungs with trace amount stranding within lung bases. VASCULATURE: No increased pulmonary vasculature. PLEURA: No pneumothorax, effusion, or pleural thickening. CARDIAC: No cardiomegaly or cardiac silhouette abnormality. MEDIASTINUM: No visible mass or adenopathy. BONES: No fracture or visible bone lesion. OTHER: Nasogastric tube with tip in fundus and side-port well below gastroesophageal junction. XR/XR chest 1V IMPRESSION: 1. Endotracheal tube placement. The chase is not well seen but tip is suspected to be approximately 4.3 cm above the chase. 2. Underexpanded lungs with trace amount of bibasilar atelectasis. Electronically authenticated by: GERMAINE FARRELL Date: 01/19/2024 13:56
[2024-01-19] MEDS: MIDAZOLAM HCL 5 MG/ML VIAL 6 MG IV (12:55)
[2024-01-19] MEDS: ETOMIDATE 20 MG/10 ML VIAL IVP (12:59)
[2024-01-19] MEDS: SUCCINYLCHOLINE CHLORIDE 200 MG/10 ML MDV 100 MG IV (13:01)
[2024-01-19] MEDS: PROPOFOL 1,000 MG/100 ML VIAL 2.93699999999999983 MG IV (13:05)
--- NOTE | 2024-01-19 13:12 | W.PM.PROCNOT ---
Date of procedure: 01/19/24 Pre-op diagnosis: Acute hypercapnic respiratory failure Post-op diagnosis: same as pre-op Procedure: Procedure [place] scope intubation with 8.0 ETT. Description Patient was in ICU room, failed BiPAP therapy, tiring out without any significant change in pH/pCO2. Decision made to electively intubate patient to correct acute hypercapnia and allow patient to rest. Patient was coherent enough to voice agreement. Mother was in room who witnessed it and also voiced agreement. Witnessed as well by MIGUEL Ny. Patient was pre-oxygenated with 100% O2 on BiPAP. Patient was sedated with Versed 4mg IVP followed by Etomidate 10mg IVP. Patient was asleep and did not respond. Attempted intubation without paralytic, but she began coughing. She was then administered succinylcholine 100mg IVP (~1mg/kg). After fasciculations ceased, she was successfully intubated with an 8.0 ETT at the 24cm benson at the anterior lip line. Positioning was confirmed with capnography color change. Endotracheal tube was secured and placed in circuit with the ventilator. The patient tolerated the procedure well. Anesthesia: Other (RSI) Surgeon: Cyrus Yancey Estimated blood loss (mL): 0 Condition: critical Disposition: ICU
[2024-01-19] MEDS: METHYLPREDNISOLONE SOD SUCC PF 125 MG/2 ML VIAL IVP ×3 (14:28→23:12)
[2024-01-19] MEDS: PROPOFOL 1,000 MG/100 ML VIAL 55.8029999999999973 MG IV ×2 (14:42→16:47)
[2024-01-19 15:20] LABS: Allen Test POSITIVE (POSITIVE); Base Excess ABG 0.8 mmol/L (-2.0-2.0); HCO3 ABG 27.3 mmol/L (22.0-26.0); Oxygen Saturation ABG 97.8 %
[2024-01-19 15:21] LABS: Fractionated Inspired Oxygen 40 %; Minute Volume 7.79; O2 Mode VENT; Puncture Site RR; Rate 16; Tidal Volume 500; Vent Mode AC/VC
[2024-01-19 15:22] LABS: pH ABG 7.293 (7.350-7.450)
[2024-01-19 15:23] LABS: ABG PCO2 56.5 mmHg (35.0-45.0)
[2024-01-19 16:47] LABS: Glucometer 177 mg/dL (74-106)
[2024-01-19] MEDS: PROPOFOL 1,000 MG/100 ML VIAL 85 MG IV ×2 (18:12→20:16)
[2024-01-19 21:42] LABS: Glucometer 221 mg/dL (74-106)
[2024-01-19] MEDS: PROPOFOL 1,000 MG/100 ML VIAL 80 MG IV (22:31)
[2024-01-19 23:06] LABS: Glucometer 227 mg/dL (74-106)
[2024-01-19] MEDS: INSULIN DETEMIR 300 UNIT/3 ML INSULN.PEN 30 UNIT SUBQ (23:07)
[2024-01-20] VITALS (132 sets, daily range): BP systolic 87–158; BP diastolic 58–96; PULSE 73–87; TEMP 36.2–37.3; O2SAT 81–100; BMI 31.2
[2024-01-20] MEDS: 0.9 % SODIUM CHLORIDE 1,000 ML 100 ML IV (00:18)
[2024-01-20] MEDS: PIPERACILLIN SODIUM/TAZOBACTAM 3.375 GM in 0.9 % SODIUM CHLORIDE 50 ML IV ×3 (01:38→17:19)
[2024-01-20] MEDS: PROPOFOL 1,000 MG/100 ML VIAL 78 MG IV (01:52)
[2024-01-20] MEDS: PROPOFOL 1,000 MG/100 ML VIAL 75 MG IV (02:57)
[2024-01-20] MEDS: IPRATROPIUM/ALBUTEROL SULFATE 3 ML AMPUL.NEB IH ×6 (03:27→23:06)
[2024-01-20 04:56] LABS: Basophils Percent Auto 0.1 % (0.2-2.0); Hematocrit 42.2 % (36.0-48.0); Hemoglobin 12.9 g/dL (12.0-16.0); Immature Granulocytes Abs Auto 0.13 10^3/uL (0.00-0.03); Immature Granulocytes Pct Auto 1.2 % (0.0-0.5); Lymphocytes Absolute Auto 0.4 10^3/uL (1.2-3.8); Lymphocytes Percent Auto 3.9 % (20.5-60.0); Mean Corpuscular HGB Conc 30.6 g/dL (29.9-35.2); Mean Corpuscular Hemoglobin 32.1 pg (26.7-34.0); Mean Platelet Volume 9.1 fL (9.5-13.5); Monocytes Absolute Auto 0.1 10^3/uL (0.3-0.8); Monocytes Percent Auto 1.1 % (1.7-12.0); Neutrophils Absolute Auto 10.2 10^3/uL (1.4-6.5); Neutrophils Percent Auto 93.7 % (43.0-75.0); Platelet Count 329 10^3/uL (150-450); Red Blood Count 4.02 10^6/uL (4.20-5.40); Red Cell Distribution Width 14.6 % (11.0-15.0); White Blood Count 10.9 10^3/uL (4.0-11.0)
[2024-01-20 05:21] LABS: Alanine Aminotransferase 9 U/L (14-59); Albumin Globulin Ratio 0.6; Albumin Level 2.1 g/dL (3.4-5.0); Alkaline Phosphatase 71 U/L (46-116); Anion Gap 10.6; Aspartate Amino Transferase 6 U/L (15-37); BUN Creatinine Ratio 23.9; Bilirubin Total 0.2 mg/dL (0.2-1.0); Calcium 8.6 mg/dL (8.5-10.1); Carbon Dioxide 25.6 mmol/L (21.0-32.0); Chloride 109 mmol/L (98-107); Estimated GFR (African America >60 (>=60); Estimated GFR (Non-African Ame >60 (>=60); Globulin 3.4 g/dL; Glucose 278 mg/dL (74-106); Potassium 3.2 mmol/L (3.5-5.1); Sodium 142 mmol/L (136-145); Total Protein 5.5 g/dL (6.4-8.2)
[2024-01-20] MEDS: METHYLPREDNISOLONE SOD SUCC PF 125 MG/2 ML VIAL IVP ×3 (05:41→17:54)
[2024-01-20] MEDS: PROPOFOL 1,000 MG/100 ML VIAL 70 MG IV ×2 (05:41→08:20)
[2024-01-20 05:46] LABS: Allen Test POSITIVE (POSITIVE); Base Excess ABG -0.2 mmol/L (-2.0-2.0); Fractionated Inspired Oxygen 30 %; HCO3 ABG 26.7 mmol/L (22.0-26.0); O2 Mode VENTILATOR; Oxygen Saturation ABG 90.8 %; PO2 ABG 61.5 mmHg (80.0-100.0); Puncture Site R RADIAL; Vent Mode A/C
[2024-01-20 05:47] LABS: Rate 16; Tidal Volume 500; pH ABG 7.267 (7.350-7.450)
[2024-01-20 05:48] LABS: ABG PCO2 58.6 mmHg (35.0-45.0)
--- NOTE | 2024-01-20 06:00 | XR_ITS ---
[address] [address] Patient Name: DIAN RAY MRN: [id number] date: 1975 Sex: F Assigned Patient Location: ICU Current Patient Location: ICU Accession/Order Number: [id number] Exam Date: 01/20/2024 05:10 Report Date: 01/20/2024 06:36 At the request of: MONAE GOLDMAN Procedure: XR chest 1V EXAMINATION: XR chest 1V HISTORY: Respiratory distress - Intubated patient COMPARISON: XR chest 01/19/2024 FINDINGS: LUNGS: Endotracheal tube with tip 5.2 cm above the chase. Underexpanded lungs with mild stranding within lung bases. VASCULATURE: Mild cephalization, likely due to supine position. PLEURA: No pneumothorax, effusion, or pleural thickening. CARDIAC: No cardiomegaly or cardiac silhouette abnormality. MEDIASTINUM: No visible mass or adenopathy. BONES: No fracture or visible bone lesion. OTHER: Negative. XR/XR chest 1V IMPRESSION: 1. Endotracheal tube with tip 5.2 cm above the chase. 2. Low lung volume examination with trace amount of bibasilar atelectasis. 3. No significant change. Electronically authenticated by: GERMAINE FARRELL Date: 01/20/2024 06:36
--- NOTE | 2024-01-20 07:18 | RESP.RT ---
pushed tube to 24 cm @ lip
[2024-01-20 07:32] LABS: Glucometer 287 mg/dL (74-106)
[2024-01-20] MEDS: INSULIN ASPART 300 UNIT/3 ML PEN SUBQ ×4 (07:43→21:47)
[2024-01-20] MEDS: LACTATED RINGER'S SOLUTION 1,000 ML 80 ML IV ×2 (07:43→19:41)
--- NOTE | 2024-01-20 07:52 | P.PLPN_ITS ---
Progress Note: A&P Assessment and Plan (1) Hospital-acquired pneumonia: Assessment and Plan: Chest CT report returned positive for bronchiolitis. Respiratory panel negative for any obvious agent. After intubation yesterday, RT suctioned a large amount of secretions - sent for C&S. Continue current antibiotics for now. (2) Acute respiratory failure with hypercapnia: Assessment and Plan: Intubated 01/19/2024. Breathing is calm, not labored. Slight worsening of acid- base. Developing hyperchloremic metabolic acidosis - stopped NS IVF and changed to LR. Adjusted ventilator - increased Vt to 550mL and RR to 18, recheck ABG later. Monitoring PIP - ~30 currently. On propofol for sedation - no current evidence for propofol infusion syndrome. (3) Acute exacerbation of chronic obstructive pulmonary disease: Assessment and Plan: Decreased wheezes after placed on ventilator. Continue nebs, steroids. (4) Cigarette nicotine dependence with nicotine-induced disorder: Assessment and Plan: Heavy smoking history, up to 3ppd prior to current illness. Has nicotine patch. Was told by RT yesterday that the mother was not pleased with my comments when I addressed to the patient & family that the patient needs to make some lifestyle modifications to improve her overall health including stopping smoking and improve outpatient compliance - unfortunately, it is the truth. (5) Hyperchloremia: Assessment and Plan: Cl- up to 109 today. Stop NS IVF, change to LR. (6) DM2 (diabetes mellitus, type 2): Assessment and Plan: Monitor FSBS while on steroids. Qualifiers: Diabetes mellitus buttermaker continuous churn insulin use: unspecified [facility] insulin use status Diabetes mellitus complication status: without complication Qualified Code(s): E11.9 - Type 2 diabetes mellitus without complications (7) PEPE (obstructive sleep apnea): Assessment and Plan: Non-compliant with PAP @ home. Question underlying OHS. Continue to monitor ABG. Will see if patient wants treatment after extubation/discharge - would need to start all over with PSG outpatient. (8) Obesity: Assessment and Plan: Weight loss recommended. Qualifiers: Obesity type: unspecified obesity type Obesity classification: adult class 1 (BMI 30 - 34.9) Serious obesity comorbidity presence: with serious comorbidity Body mass index: BMI 31.0-31.9 Qualified Code(s): E66.9 - Obesity, unspecified; Z68.31 - Body mass index [BMI] 31.0-31.9, adult Plan Patient remains in ICU requiring critical care services. Intubated, sedated. No plans for weaning trials today. Ordering coat padder consultation for TF recommendations. Renew restraints, Conde. 35 minutes critical care time. Subjective Subjective Interval history: Discussed with RN and RT. Patient remains sedated, on ventilator. Reviewed ABG, labs, imaging. ABG actually worsened slightly overnight - unclear exact cause. No green/black urine. Cl- elevated - on normal saline IV fluids. Changed ventilator settings with respiratory. Exam Constitutional Vital Signs, click to edit/add: Last Vital Signs Temp 97.2 F L 01/20/24 07:15 Pulse 81 01/20/24 07:35 Resp 18 01/20/24 07:06 BP 127/72 01/20/24 07:35 Pulse Ox 89 L 01/20/24 07:35 O2 Del Method Mechanical Ventilator 01/20/24 07:06 O2 Flow Rate 30 01/20/24 03:27 FiO2 25 01/20/24 07:06 Documenting provider has reviewed patient's vital signs: yes Common normals: no apparent distress Other: Sedated, on vent HENMT Other: 8.0 ETT Chest Common normals: inspection of chest normal Chest: symmetrical chest wall rise Respiratory Other: Diminished breath sounds. Decreased expiratory wheezes compared to yesterday. Cardio Other: RRR GI Common normals: Normal to inspection, nondistended, normoactive bowel sounds present Bladder/kidney exam: catheter in place Catheter type (Female): urethral Extremity Common normals: normal to inspection and normal capillary refill Neuro Other: No fasciculations. Will move spontaneously. Psych Other: Sedated
[2024-01-20 08:36] LABS: Lactate/Lactic Acid 0.9 mmol/L (0.4-2.0)
[2024-01-20 08:54] LABS: Vancomycin Trough 25.9 ug/mL (5.0-20.0)
--- NOTE | 2024-01-20 09:23 | PC.NURSE ---
Dr. Mitchel Cruz at bedside for physician rounds and plan of care was discussed including continuing the use of her home medications. Physician is concerned that patient is to sedated. Attempted to decrease sedation, patient did not tolerate as she began to fight and bite at ETT. Sedation was increased back to previous rate. Physician updated.
[2024-01-20] MEDS: ESCITALOPRAM 10 MG TABLET 20 MG PO (09:41)
[2024-01-20] MEDS: ATORVASTATIN CALCIUM 40 MG TABLET PO (09:42)
[2024-01-20] MEDS: NICOTINE 21 MG PATCH.TD24 TD (09:42)
[2024-01-20] MEDS: POTASSIUM CHLORIDE 10 MEQ ER TABLET 40 MEQ OG-TUBE (09:42)
[2024-01-20] MEDS: OMEPRAZOLE 40 MG CAPSULE.DR PO (09:42)
[2024-01-20] MEDS: ENOXAPARIN SODIUM 40 MG/0.4 ML SYRINGE SUBQ (09:44)
--- NOTE | 2024-01-20 10:03 | PM.IMPN1 ---
Progress Note: A&P Assessment and Plan (1) Sepsis: Assessment and Plan: Stable hemodynamics. Secondary to pneumonia. On IV antibiotics. Patient is now on ventilator. Pulm on consult for ventilator management. Qualifiers: Sepsis type: sepsis due to unspecified organism Sepsis acute organ dysfunction status: with acute organ dysfunction Severe sepsis acute organ dysfunction type: acute respiratory failure Acute respiratory failure type: with hypercapnia Severe sepsis shock status: without septic shock Qualified Code(s): A41.9 - Sepsis, unspecified organism; R65.20 - Severe sepsis without septic shock; J96.02 - Acute respiratory failure with hypercapnia (2) Hospital-acquired pneumonia: Assessment and Plan: Intubated on 01/19/24 for failure to repsond on BIPAP. Continue with broad-spectrum antibiotic for presumed hospital-acquired pneumonia. Continue with IV vancomycin and Zosyn. Follow-up blood and sputum cultures. (3) Acute respiratory failure with hypercapnia: Assessment and Plan: Intubated/ on ventilator. Poor gas exchange with persistent acidosis/hypercapnia. Vent settings/management as per pulm. (4) Acute exacerbation of chronic obstructive pulmonary disease: Assessment and Plan: Improved air movement on exam. C/w steroids, bronchodilators. (5) Cigarette nicotine dependence with nicotine-induced disorder: Assessment and Plan: Continues to smoke and has had no success in quitting with multiple attempts in the past (6) DM2 (diabetes mellitus, type 2): Assessment and Plan: Closely monitor blood glucose while on steroids. C/w Levemir 30 units. SSI TIDAC. Qualifiers: Diabetes mellitus detention insulin use: unspecified [employer] insulin use status Diabetes mellitus complication status: without complication Qualified Code(s): E11.9 - Type 2 diabetes mellitus without complications (7) Bipolar 2 disorder: Assessment and Plan: Stable mood continue with home medications. (8) HLD (hyperlipidemia): Assessment and Plan: Continue with statin. Qualifiers: Hyperlipidemia type: unspecified Qualified Code(s): E78.5 - Hyperlipidemia, unspecified Internal Medicine - PN: Subj Subjective Interval history: Seen and examined. Patient intubated on 01/19/24 as she failed to respond on BIPAP. Now on ventilator, intubated and sedated. ABG from this morning - poor gas exchange, persistent resp acidosis, vent settings changed by Pulm. On maintenance fluids. Not receiving nutrition. Patient was deeply sedated this morning, not arousable. On propofol for sedation. Exam Constitutional Vital Signs, click to edit/add: Last Vital Signs Temp 97.2 F L 01/20/24 07:15 Pulse 79 01/20/24 08:00 Resp 18 01/20/24 07:06 BP 127/72 01/20/24 07:35 Pulse Ox 89 L 01/20/24 08:00 O2 Del Method Mechanical Ventilator 01/20/24 07:06 O2 Flow Rate 30 01/20/24 03:27 FiO2 25 01/20/24 08:00 Documenting provider has reviewed patient's vital signs: yes General appearance: comfortable and ill appearing Other: Intubated, sedated. HENMT Common normals: normocephalic and head/scalp atraumatic Other: ETT, OGT in place. Respiratory Other: Improved air entry, breathing with went, still has diminished lung sounds all over. No sig wheezing/rhonchi noted. Cardio Common normals: no JVD, regular rate, regular rhythm, S1 normal heart sound and S2 normal heart sound GI Common normals: Normal to inspection, nondistended, normoactive bowel sounds present, soft to palpation, non-tender and no hepatosplenomegaly Extremity Common normals: normal to inspection and no clubbing, cyanosis or edema Neuro Other: Sedated, intubated. Moves all found extremities as per RN when sedation is turned down Psych Other: sedated currently. Internal Medicine - PN: Obj Da Labs Labs: Laboratory Results - last 24 hr 01/19/24 01/19/24 01/19/24 10:38 11:30 11:49 WBC RBC Hgb Hct MCV MCH MCHC RDW Plt Count MPV Neut % (Auto) Lymph % (Auto) [place] % (Auto) Eos % (Auto) Baso % (Auto) Neut # (Auto) Lymph # (Auto) [place] # (Auto) Eos # (Auto) Baso # (Auto) Abs Immat Gran (auto) Imm/Tot Granulo (auto) Puncture Site L radial ABG pH 7.252 L* ABG pCO2 66.4 H* ABG pO2 76.5 L ABG HCO3 29.2 H ABG O2 Saturation 95.1 ABG Base Excess 2.0 Emigdio Test Pos Minute Volume Vent Mode FiO2 40 Tidal Volume BiPAP 20/5 Sodium Potassium Chloride Carbon Dioxide Anion Gap BUN Creatinine Est GFR ( Amer) Est GFR (Non-Af Amer) BUN/Creatinine Ratio Glucose Lactate Calcium Total Bilirubin AST ALT Alkaline Phosphatase Total Protein Albumin Globulin Albumin/Globulin Ratio Vancomycin Trough Adenovirus (PCR) Not detected B. pertussis DNA (PCR) Not detected B.parapertussis DNA PCR Not detected C. pneumoniae DNA (PCR) Not detected Coronavirus Type OC43 Not detected Coronavirus Type HKU1 Not detected Coronavirus Type 229E Not detected Coronavirus Type NL63 Not detected Human Metapneumovir PCR Not detected Influenza Type A (PCR) Not detected Influenza Type B (PCR) Not detected M. pneumoniae (PCR) Not detected Parainfluenza PCR Not detected Parainfluenza 2 (PCR) Not detected Parainfluenza 3 (PCR) Not detected Parainfluenza 4 (PCR) Not detected RSV (RT-PCR) Not detected Entero/Rhino (PCR) Not detected SARS-CoV-2 (PCR) Not detected POC Glucose 155 H 01/19/24 01/19/24 01/19/24 15:13 16:46 21:40 WBC RBC Hgb Hct MCV MCH MCHC RDW Plt Count MPV Neut % (Auto) Lymph % (Auto) [place] % (Auto) Eos % (Auto) Baso % (Auto) Neut # (Auto) Lymph # (Auto) [place] # (Auto) Eos # (Auto) Baso # (Auto) Abs Immat Gran (auto) Imm/Tot Granulo (auto) Puncture Site Rr ABG pH 7.293 L* ABG pCO2 56.5 H* ABG pO2 95.0 ABG HCO3 27.3 H ABG O2 Saturation 97.8 ABG Base Excess 0.8 Emigdio Test Positive Minute Volume 7.79 Vent Mode Ac/vc FiO2 40 Tidal Volume 500 BiPAP Sodium Potassium Chloride Carbon Dioxide Anion Gap BUN Creatinine Est GFR ( Amer) Est GFR (Non-Af Amer) BUN/Creatinine Ratio Glucose Lactate Calcium Total Bilirubin AST ALT Alkaline Phosphatase Total Protein Albumin Globulin Albumin/Globulin Ratio Vancomycin Trough Adenovirus (PCR) B. pertussis DNA (PCR) B.parapertussis DNA PCR C. pneumoniae DNA (PCR) Coronavirus Type OC43 Coronavirus Type HKU1 Coronavirus Type 229E Coronavirus Type NL63 Human Metapneumovir PCR Influenza Type A (PCR) Influenza Type B (PCR) M. pneumoniae (PCR) Parainfluenza PCR Parainfluenza 2 (PCR) Parainfluenza 3 (PCR) Parainfluenza 4 (PCR) RSV (RT-PCR) Entero/Rhino (PCR) SARS-CoV-2 (PCR) POC Glucose 177 H 221 H 01/19/24 01/20/24 01/20/24 23:05 04:02 05:34 WBC 10.9 RBC 4.02 L Hgb 12.9 Hct 42.2 MCV 105.0 H MCH 32.1 MCHC 30.6 RDW 14.6 Plt Count 329 MPV 9.1 L Neut % (Auto) 93.7 H Lymph % (Auto) 3.9 L [place] % (Auto) 1.1 L Eos % (Auto) 0.0 L Baso % (Auto) 0.1 L Neut # (Auto) 10.2 H Lymph # (Auto) 0.4 L [place] # (Auto) 0.1 L Eos # (Auto) 0.0 Baso # (Auto) 0.0 Abs Immat Gran (auto) 0.13 H Imm/Tot Granulo (auto) 1.2 H Puncture Site R radial ABG pH 7.267 L* ABG pCO2 58.6 H* ABG pO2 61.5 L ABG HCO3 26.7 H ABG O2 Saturation 90.8 ABG Base Excess -0.2 Emigdio Test Positive Minute Volume Vent Mode A/c FiO2 30 Tidal Volume 500 BiPAP Sodium 142 Potassium 3.2 L Chloride 109 H Carbon Dioxide 25.6 Anion Gap 10.6 BUN 17.0 Creatinine 0.71 Est GFR ( Amer) >60 Est GFR (Non-Af Amer) >60 BUN/Creatinine Ratio 23.9 Glucose 278 H Lactate Calcium 8.6 Total Bilirubin 0.2 AST 6 L ALT 9 L Alkaline Phosphatase 71 Total Protein 5.5 L Albumin 2.1 L Globulin 3.4 Albumin/Globulin Ratio 0.6 Vancomycin Trough Adenovirus (PCR) B. pertussis DNA (PCR) B.parapertussis DNA PCR C. pneumoniae DNA (PCR) Coronavirus Type OC43 Coronavirus Type HKU1 Coronavirus Type 229E Coronavirus Type NL63 Human Metapneumovir PCR Influenza Type A (PCR) Influenza Type B (PCR) M. pneumoniae (PCR) Parainfluenza PCR Parainfluenza 2 (PCR) Parainfluenza 3 (PCR) Parainfluenza 4 (PCR) RSV (RT-PCR) Entero/Rhino (PCR) SARS-CoV-2 (PCR) POC Glucose 227 H 01/20/24 01/20/24 07:30 07:58 WBC RBC Hgb Hct MCV MCH MCHC RDW Plt Count MPV Neut % (Auto) Lymph % (Auto) [place] % (Auto) Eos % (Auto) Baso % (Auto) Neut # (Auto) Lymph # (Auto) [place] # (Auto) Eos # (Auto) Baso # (Auto) Abs Immat Gran (auto) Imm/Tot Granulo (auto) Puncture Site ABG pH ABG pCO2 ABG pO2 ABG HCO3 ABG O2 Saturation ABG Base Excess Emigdio Test Minute Volume Vent Mode FiO2 Tidal Volume BiPAP Sodium Potassium Chloride Carbon Dioxide Anion Gap BUN Creatinine Est GFR ( Amer) Est GFR (Non-Af Amer) BUN/Creatinine Ratio Glucose Lactate 0.9 Calcium Total Bilirubin AST ALT Alkaline Phosphatase Total Protein Albumin Globulin Albumin/Globulin Ratio Vancomycin Trough 25.9 H* Adenovirus (PCR) B. pertussis DNA (PCR) B.parapertussis DNA PCR C. pneumoniae DNA (PCR) Coronavirus Type OC43 Coronavirus Type HKU1 Coronavirus Type 229E Coronavirus Type NL63 Human Metapneumovir PCR Influenza Type A (PCR) Influenza Type B (PCR) M. pneumoniae (PCR) Parainfluenza PCR Parainfluenza 2 (PCR) Parainfluenza 3 (PCR) Parainfluenza 4 (PCR) RSV (RT-PCR) Entero/Rhino (PCR) SARS-CoV-2 (PCR) POC Glucose 287 H Urinary Catheter Management Urinary Catheter Management Urethral: Cath placed during this visit: yes Urethral indwelling: Yes Reason for continuing: measure accurate output Insertion date: 01/18/24 Insertion time: 09:10
--- NOTE | 2024-01-20 10:21 | CM.NOTE ---
Rounds made with Dr. Cruz. Continues on vent. Plan is to start tube feeds today.
--- NOTE | 2024-01-20 10:49 | DIETREC ---
Recommend Jevity 1.5 formula @ 35 mL/hour goal rate to provide 1260 kcal, 54 gm PRO, 638 mL free water in 840 mL TV q24 hours. Recommend 30 mL PRO-stat BID to provide 200 kcal, 30 gm PRO, 60 mL TV q24 hours. Recommend 100 mL water flushes q6 hours to provide 400 mL TV q24 hours.
[2024-01-20] MEDS: PROPOFOL 1,000 MG/100 ML VIAL 41.1180000000000021 MG IV (11:11)
[2024-01-20] MEDS: MIDAZOLAM HCL 2 MG/2 ML VIAL 1 MG IV ×3 (11:22→16:19)
[2024-01-20] MEDS: BUDESONIDE 0.5 MG/2 ML AMPULE NEB IH ×2 (11:29→23:06)
--- NOTE | 2024-01-20 11:40 | SWNOTE1 ---
Case management received phone call and family would like HCPOA information for when pt is off ventilator. SW spoke to nursing and family has concerns over pt's oldest daughter being HCPOA. SW spoke to pt's mother and youngest daughter in room. SW provided them with a HCPOA booklet to review and advised them that SW can't do any POA paperwork until pt is alert and oriented. They voiced understanding. Pt's mother did voice concerns that pt's oldest daughter would not be a good person to have make decisions for pt. At this time no decisions need to be made in regards to pt's care, but this would default to pt's oldest daughter if needed. SW to follow as needed.
[2024-01-20] MEDS: JEVITY 1.5 CAL 237 ML LIQUID 30 ML FEED TUBE (11:52)
[2024-01-20 11:54] LABS: ABG PCO2 48.8 mmHg (35.0-45.0); pH ABG 7.351 (7.350-7.450)
[2024-01-20 11:55] LABS: Allen Test POSITIVE (POSITIVE); Base Excess ABG 1.4 mmol/L (-2.0-2.0); Fractionated Inspired Oxygen 25 %; O2 Mode VENT; Oxygen Saturation ABG 90.7 %; Puncture Site RR; Rate 18; Tidal Volume 550; Vent Mode AC/VC
[2024-01-20 11:56] LABS: Minute Volume 9.77
[2024-01-20 12:00] LABS: PO2 ABG 56.8 mmHg (80.0-100.0)
[2024-01-20 12:01] LABS: Glucometer 236 mg/dL (74-106)
[2024-01-20] MEDS: MIDAZOLAM HCL 100 MG in 0.9 % SODIUM CHLORIDE 80 ML 8 MG IV (13:05)
[2024-01-20] MEDS: FENTANYL CITRATE/PF 100 MCG/2 ML VIAL 50 MCG IV ×2 (13:33→13:34)
[2024-01-20] MEDS: VANCOMYCIN HCL 1,000 MG in 0.9 % SODIUM CHLORIDE 250 ML 250 MG IV (14:30)
[2024-01-20] MEDS: PROSTAT 15 GM PROTEIN/100 CAL 30 ML LIQUID PACKET PO ×2 (14:37→21:43)
[2024-01-20] MEDS: GABAPENTIN 300 MG CAPSULE 600 MG PO ×2 (14:38→21:43)
[2024-01-20] MEDS: PANTOPRAZOLE SODIUM 40 MG VIAL IV (14:38)
[2024-01-20 16:13] LABS: Glucometer 285 mg/dL (74-106)
[2024-01-20] MEDS: DEXMEDETOMIDINE HCL 200 MCG in 0.9 % SODIUM CHLORIDE 50 ML 4.8360000000000003 MCG IV (17:18)
[2024-01-20] MEDS: WATER 100 EACH OG-TUBE (17:54)
[2024-01-20] MEDS: MIDAZOLAM HCL 100 MG in 0.9 % SODIUM CHLORIDE 80 ML 20 MG IV (19:43)
[2024-01-20] MEDS: JEVITY 1.5 CAL 237 ML LIQUID FEED TUBE (20:00)
[2024-01-20 21:39] LABS: Glucometer 300 mg/dL (74-106)
[2024-01-20] MEDS: DEXMEDETOMIDINE HCL 200 MCG in 0.9 % SODIUM CHLORIDE 50 ML 9.6720000000000006 MCG IV (21:42)
[2024-01-20] MEDS: risperiDONE 1 MG TABLET PO (21:43)
[2024-01-20] MEDS: INSULIN DETEMIR 300 UNIT/3 ML INSULN.PEN 30 UNIT SUBQ (21:48)
[2024-01-21] VITALS (46 sets, daily range): BP systolic 121–167; BP diastolic 73–104; PULSE 67–89; TEMP 36.5–37.7; O2SAT 89–98
[2024-01-21] MEDS: METHYLPREDNISOLONE SOD SUCC PF 125 MG/2 ML VIAL IVP ×4 (00:29→17:40)
[2024-01-21] MEDS: WATER 100 EACH OG-TUBE ×2 (00:30→06:26)
[2024-01-21] MEDS: VANCOMYCIN HCL 1,000 MG in 0.9 % SODIUM CHLORIDE 250 ML 250 MG IV ×2 (00:31→14:13)
[2024-01-21] MEDS: MIDAZOLAM HCL 100 MG in 0.9 % SODIUM CHLORIDE 80 ML 20 MG IV ×2 (01:08→06:26)
[2024-01-21] MEDS: PIPERACILLIN SODIUM/TAZOBACTAM 3.375 GM in 0.9 % SODIUM CHLORIDE 50 ML IV ×3 (01:44→17:40)
[2024-01-21] MEDS: IPRATROPIUM/ALBUTEROL SULFATE 3 ML AMPUL.NEB IH ×6 (03:36→23:21)
[2024-01-21] MEDS: DEXMEDETOMIDINE HCL 200 MCG in 0.9 % SODIUM CHLORIDE 50 ML 9.6720000000000006 MCG IV ×2 (04:18→10:01)
[2024-01-21] MEDS: JEVITY 1.5 CAL 237 ML LIQUID FEED TUBE ×2 (04:25→21:05)
[2024-01-21 04:50] LABS: Basophils Percent Auto 0.2 % (0.2-2.0); Hematocrit 42.9 % (36.0-48.0); Hemoglobin 13.4 g/dL (12.0-16.0); Immature Granulocytes Abs Auto 0.38 10^3/uL (0.00-0.03); Immature Granulocytes Pct Auto 1.9 % (0.0-0.5); Lymphocytes Absolute Auto 0.3 10^3/uL (1.2-3.8); Lymphocytes Percent Auto 1.7 % (20.5-60.0); Mean Corpuscular HGB Conc 31.2 g/dL (29.9-35.2); Mean Corpuscular Hemoglobin 32.1 pg (26.7-34.0); Mean Corpuscular Volume 102.6 fL (81.0-99.0); Mean Platelet Volume 9.1 fL (9.5-13.5); Monocytes Absolute Auto 0.2 10^3/uL (0.3-0.8); Monocytes Percent Auto 1.1 % (1.7-12.0); Neutrophils Absolute Auto 18.7 10^3/uL (1.4-6.5); Neutrophils Percent Auto 95.1 % (43.0-75.0); Platelet Count 316 10^3/uL (150-450); Red Blood Count 4.18 10^6/uL (4.20-5.40); Red Cell Distribution Width 14.8 % (11.0-15.0); White Blood Count 19.7 10^3/uL (4.0-11.0)
[2024-01-21 05:36] LABS: Alanine Aminotransferase 9 U/L (14-59); Albumin Globulin Ratio 0.7; Albumin Level 2.3 g/dL (3.4-5.0); Alkaline Phosphatase 72 U/L (46-116); Anion Gap 11.9; Aspartate Amino Transferase 6 U/L (15-37); BUN Creatinine Ratio 35.4; Bilirubin Total 0.3 mg/dL (0.2-1.0); Calcium 8.6 mg/dL (8.5-10.1); Carbon Dioxide 25.4 mmol/L (21.0-32.0); Chloride 110 mmol/L (98-107); Estimated GFR (African America >60 (>=60); Estimated GFR (Non-African Ame >60 (>=60); Globulin 3.5 g/dL; Glucose 293 mg/dL (74-106); Potassium 3.3 mmol/L (3.5-5.1); Sodium 144 mmol/L (136-145); Total Protein 5.8 g/dL (6.4-8.2)
[2024-01-21 05:55] LABS: ABG PCO2 44.1 mmHg (35.0-45.0); Allen Test POSITIVE (POSITIVE); Base Excess ABG 0.6 mmol/L (-2.0-2.0); Fractionated Inspired Oxygen 30 %; HCO3 ABG 25.8 mmol/L (22.0-26.0); O2 Mode VENTILATOR; Puncture Site R RADIAL; Rate 18; Tidal Volume 550; Vent Mode A/C; pH ABG 7.376 (7.350-7.450)
[2024-01-21 05:56] LABS: PO2 ABG 56.7 mmHg (80.0-100.0)
--- NOTE | 2024-01-21 06:00 | XR_ITS ---
[address] [address] Patient Name: DIAN RAY MRN: [id number] date: 1975 Sex: F Assigned Patient Location: ICU Current Patient Location: ICU Accession/Order Number: [id number] Exam Date: 01/21/2024 04:55 Report Date: 01/21/2024 06:28 At the request of: MONAE GOLDMAN Procedure: XR chest 1V EXAMINATION: XR chest 1V HISTORY: Respiratory distress - Intubated patient COMPARISON: XR chest 01/20/2024 FINDINGS: LUNGS: Endotracheal tube with tip approximately 4.4 cm above the chase. Underexpanded lungs with minimal haziness within lung bases. VASCULATURE: No increased pulmonary vasculature. PLEURA: No pneumothorax, effusion, or pleural thickening. CARDIAC: No cardiomegaly or cardiac silhouette abnormality. MEDIASTINUM: No visible mass or adenopathy. BONES: No fracture or visible bone lesion. OTHER: Nasogastric tube extends into stomach below level of imaging. XR/XR chest 1V IMPRESSION: 1. Endotracheal tube with tip 4.4 cm above chase. 2. Underexpanded lungs with trace amount of bibasilar atelectasis or infiltrates; stable to very minimally increased. Electronically authenticated by: GERMAINE FARRELL Date: 01/21/2024 06:28
[2024-01-21] MEDS: GABAPENTIN 300 MG CAPSULE 600 MG PO ×3 (06:25→21:14)
[2024-01-21] MEDS: POTASSIUM CHLORIDE 10 MEQ ER TABLET 40 MEQ PO (07:57)
[2024-01-21 07:59] LABS: Glucometer 366 mg/dL (74-106)
[2024-01-21] MEDS: INSULIN ASPART 300 UNIT/3 ML PEN SUBQ ×4 (07:59→21:10)
[2024-01-21] MEDS: NICOTINE 21 MG PATCH.TD24 TD (08:00)
[2024-01-21] MEDS: PROSTAT 15 GM PROTEIN/100 CAL 30 ML LIQUID PACKET PO ×2 (08:00→21:05)
[2024-01-21] MEDS: ENOXAPARIN SODIUM 40 MG/0.4 ML SYRINGE SUBQ (08:01)
[2024-01-21] MEDS: ESCITALOPRAM 10 MG TABLET 20 MG PO (08:01)
[2024-01-21] MEDS: ATORVASTATIN CALCIUM 40 MG TABLET PO (08:01)
[2024-01-21] MEDS: risperiDONE 1 MG TABLET PO ×2 (08:01→21:05)
--- NOTE | 2024-01-21 10:13 | W.PM.WC_ITS ---
Wound Consult Note Assessment and Plan (1) Sepsis: Qualifiers: Sepsis type: sepsis due to unspecified organism Sepsis acute organ dysfunction status: with acute organ dysfunction Severe sepsis acute organ dysfunction type: acute respiratory failure Acute respiratory failure type: with hypercapnia Severe sepsis shock status: without septic shock Qualified Code(s): A41.9 - Sepsis, unspecified organism; R65.20 - Severe sepsis without septic shock; J96.02 - Acute respiratory failure with hypercapnia (2) Hospital-acquired pneumonia: (3) Acute respiratory failure with hypercapnia: (4) Acute exacerbation of chronic obstructive pulmonary disease: (5) Cigarette nicotine dependence with nicotine-induced disorder: (6) DM2 (diabetes mellitus, type 2): Qualifiers: Diabetes mellitus buttermaker continuous churn insulin use: unspecified buttermaker continuous churn insulin use status Diabetes mellitus complication status: without complication Qualified Code(s): E11.9 - Type 2 diabetes mellitus without complications (7) Bipolar 2 disorder: (8) HLD (hyperlipidemia): Qualifiers: Hyperlipidemia type: unspecified Qualified Code(s): E78.5 - Hyperlipidemia, unspecified Plan Consult: Pressure injury to sacral/coccyx area Patient seen today in bed, sedated and intubated. Patient is in restraints and currently being weaned off sedation. Does not follow commands. Assisted by bedside nurse for turning in bed. Patient with heels intact bilaterally, dry. Turned to side for assessment. Found to have irregularly shaped area of purple, nonblanching skin to sacral area. She has an area of raised, dry skin to the right side of the purple discolored area that is not open currently. Overall area measures [id number] with diffuse edges. Recommendations: Triad wound paste, thin layer, to discolored area daily Reposition frequently Air mattress overlay waffle seat cushion to seat once able to get out of bed Moisturizer of choice to dry, scaly skin. Orders in chart. Please call [phone] with any questions or concerns. Cory Arenas, WILLIEN, RN, CWON
[2024-01-21] MEDS: BUDESONIDE 0.5 MG/2 ML AMPULE NEB IH ×2 (10:55→23:21)
--- NOTE | 2024-01-21 11:24 | P.IMPN_ITS ---
Progress Note: A&P Assessment and Plan (1) Sepsis: Assessment and Plan: Stable hemodynamics. Secondary to pneumonia. Stable hemodynamics. F/u cultures. Qualifiers: Sepsis type: sepsis due to unspecified organism Sepsis acute organ dysfunction status: with acute organ dysfunction Severe sepsis acute organ dysfunction type: acute respiratory failure Acute respiratory failure type: with hypercapnia Severe sepsis shock status: without septic shock Qualified Code(s): A41.9 - Sepsis, unspecified organism; R65.20 - Severe sepsis without septic shock; J96.02 - Acute respiratory failure with hypercapnia (2) Hospital-acquired pneumonia: Assessment and Plan: Intubated on 01/19/24 for failure to repsond on BIPAP. Continue with broad-spectrum antibiotic for presumed hospital-acquired pneumonia. Continue with IV vancomycin and Zosyn. Follow-up blood and sputum cultures. (3) Acute respiratory failure with hypercapnia: Assessment and Plan: Intubated/ on ventilator. Good gas exchanged on ABG today. Possible extubation if patient is more awake after sedation is turned down. (4) Acute exacerbation of chronic obstructive pulmonary disease: Assessment and Plan: Improved air movement on exam. C/w steroids, bronchodilators. (5) Cigarette nicotine dependence with nicotine-induced disorder: Assessment and Plan: Continues to smoke and has had no success in quitting with multiple attempts in the past (6) DM2 (diabetes mellitus, type 2): Assessment and Plan: Poorly controlled due to steroids. Increase levemir to 40 units. SSI TIDAC. Qualifiers: Diabetes mellitus terminal supervisor insulin use: unspecified nursing home insulin use status Diabetes mellitus complication status: without complication Qualified Code(s): E11.9 - Type 2 diabetes mellitus without complications (7) Bipolar 2 disorder: Assessment and Plan: Stable mood continue with home medications. (8) HLD (hyperlipidemia): Assessment and Plan: Continue with statin. Qualifiers: Hyperlipidemia type: unspecified Qualified Code(s): E78.5 - Hyperlipidemia, unspecified (9) Hypernatremia: Assessment and Plan: Increase free water flushes to 200 q6 (10) HTN (hypertension): Assessment and Plan: Start on norvasc 10 mg. Qualifiers: Hypertension type: primary hypertension Qualified Code(s): I10 - Essential (primary) hypertension Plan Possible extubation today if patient tolerates it. C/w IV abx, stop IVF. Started on amlodipine for HTN. Monitor blood glucose while on steroids. increased insulin dose to 40 units. Increased free water flushes for hypernatremia Internal Medicine - PN: Subj Subjective Interval history: Seen and examined. No overnight events. Doing well overall. ABG showed good gas exchange. Resp acidosis resolved. Exam Constitutional Vital Signs, click to edit/add: Last Vital Signs Temp 99.2 F 01/21/24 11:00 Pulse 70 01/21/24 10:58 Resp 23 H 01/21/24 10:58 BP 160/100 H 01/21/24 07:04 Pulse Ox 95 01/21/24 10:58 O2 Del Method Mechanical Ventilator 01/21/24 10:58 O2 Flow Rate 30 01/20/24 03:27 FiO2 30 01/21/24 10:58 Documenting provider has reviewed patient's vital signs: yes General appearance: comfortable and ill appearing Other: Intubated, sedated. HENIL Common normals: normocephalic and head/scalp atraumatic Other: ETT, OGT in place. Respiratory Other: Improved air entry, breathing with went, still has diminished lung sounds all over. No sig wheezing/rhonchi noted. Cardio Common normals: no JVD, regular rate, regular rhythm, S1 normal heart sound and S2 normal heart sound GI Common normals: Normal to inspection, nondistended, normoactive bowel sounds present, soft to palpation, non-tender and no hepatosplenomegaly Extremity Common normals: normal to inspection and no clubbing, cyanosis or edema Neuro Other: Sedated, intubated. Moves all found extremities as per RN when sedation is turned down Psych Other: sedated currently. Internal Medicine - PN: Obj Da Labs Labs: Laboratory Results - last 24 hr 01/20/24 01/20/24 01/20/24 11:40 12:00 16:12 WBC RBC Hgb Hct MCV MCH MCHC RDW Plt Count MPV Neut % (Auto) Lymph % (Auto) [place] % (Auto) Eos % (Auto) Baso % (Auto) Neut # (Auto) Lymph # (Auto) [place] # (Auto) Eos # (Auto) Baso # (Auto) Abs Immat Gran (auto) Imm/Tot Granulo (auto) Puncture Site Rr ABG pH 7.351 ABG pCO2 48.8 H ABG pO2 56.8 L* ABG HCO3 27.0 H ABG O2 Saturation 90.7 ABG Base Excess 1.4 Emigdio Test Positive Minute Volume 9.77 Vent Mode Ac/vc FiO2 25 Tidal Volume 550 Sodium Potassium Chloride Carbon Dioxide Anion Gap BUN Creatinine Est GFR ( Amer) Est GFR (Non-Af Amer) BUN/Creatinine Ratio Glucose Calcium Total Bilirubin AST ALT Alkaline Phosphatase Total Protein Albumin Globulin Albumin/Globulin Ratio POC Glucose 236 H 285 H 01/20/24 01/21/24 01/21/24 21:38 03:55 05:47 WBC 19.7 H RBC 4.18 L Hgb 13.4 Hct 42.9 MCV 102.6 H MCH 32.1 MCHC 31.2 RDW 14.8 Plt Count 316 MPV 9.1 L Neut % (Auto) 95.1 H Lymph % (Auto) 1.7 L [place] % (Auto) 1.1 L Eos % (Auto) 0.0 L Baso % (Auto) 0.2 Neut # (Auto) 18.7 H Lymph # (Auto) 0.3 L [place] # (Auto) 0.2 L Eos # (Auto) 0.0 Baso # (Auto) 0.0 Abs Immat Gran (auto) 0.38 H Imm/Tot Granulo (auto) 1.9 H Puncture Site R radial ABG pH 7.376 ABG pCO2 44.1 ABG pO2 56.7 L* ABG HCO3 25.8 ABG O2 Saturation 91.0 ABG Base Excess 0.6 Emigdio Test Positive Minute Volume Vent Mode A/c FiO2 30 Tidal Volume 550 Sodium 144 Potassium 3.3 L Chloride 110 H Carbon Dioxide 25.4 Anion Gap 11.9 BUN 28.0 H Creatinine 0.79 Est GFR ( Amer) >60 Est GFR (Non-Af Amer) >60 BUN/Creatinine Ratio 35.4 Glucose 293 H Calcium 8.6 Total Bilirubin 0.3 AST 6 L ALT 9 L Alkaline Phosphatase 72 Total Protein 5.8 L Albumin 2.3 L Globulin 3.5 Albumin/Globulin Ratio 0.7 POC Glucose 300 H 01/21/24 07:57 WBC RBC Hgb Hct MCV MCH MCHC RDW Plt Count MPV Neut % (Auto) Lymph % (Auto) [place] % (Auto) Eos % (Auto) Baso % (Auto) Neut # (Auto) Lymph # (Auto) [place] # (Auto) Eos # (Auto) Baso # (Auto) Abs Immat Gran (auto) Imm/Tot Granulo (auto) Puncture Site ABG pH ABG pCO2 ABG pO2 ABG HCO3 ABG O2 Saturation ABG Base Excess Emigdio Test Minute Volume Vent Mode FiO2 Tidal Volume Sodium Potassium Chloride Carbon Dioxide Anion Gap BUN Creatinine Est GFR ( Amer) Est GFR (Non-Af Amer) BUN/Creatinine Ratio Glucose Calcium Total Bilirubin AST ALT Alkaline Phosphatase Total Protein Albumin Globulin Albumin/Globulin Ratio POC Glucose 366 H Urinary Catheter Management Urinary Catheter Management Urethral: Cath placed during this visit: yes Urethral indwelling: Yes Reason for continuing: measure accurate output Insertion date: 01/18/24 Insertion time: 09:10
[2024-01-21 11:31] LABS: Glucometer 310 mg/dL (74-106)
--- NOTE | 2024-01-21 11:35 | DIETREC ---
Nursing reports residuals of 170 mL today; recommend hold TF x 4 hours, then restart @ 10 mL/hour and increase gradually as tolerated to 30 mL/hour as ordered. If pt is unable to tolerate enteral feeding, may want to consider TPN.
--- NOTE | 2024-01-21 11:52 | CM.NOTE ---
Rounds made with Dr. Cruz. Remains sedated on Vent.
[2024-01-21] MEDS: AMLODIPINE BESYLATE 5 MG TABLET 10 MG PO (12:05)
--- NOTE | 2024-01-21 12:23 | PM.PLPN ---
Progress Note: A&P Assessment and Plan (1) E. coli pneumonia: Assessment and Plan: Positive culture from sputum s/p intubation 01/19/2024. I do not consider this a contaminant. As it is Gram - can D/C vancomycin in my opinion. Qualifiers: Laterality: bilateral Lung location: unspecified part of lung Qualified Code(s): J15.5 - Pneumonia due to Escherichia coli (2) Acute respiratory failure with hypercapnia: Assessment and Plan: Intubated 01/19/2024. Improved ABG - normalized pH/pCO2. Was on propofol for sedation, but concerned about propofol infusion syndrome yesterday d/t dark green urine - changed to Versed with resolution of green urine. However, remained agitated, and addition of Precedex with PRN fentanyl was ordered for a Whitaker of 2-3. This morning, began sedation vacation, but she remains quite sedated with a very slow arousal. This may delay weaning trials until tomorrow. Will keep her off sedation for now and continue to monitor her. Ther is no evidence for any stroke at this time as her pupils remain PERRL, no decorticate or decerebrate posturing, negative Babinski. If progress stalls, or shows concerning signs, will order STAT head CT. If she does become arousable to the point she follows directions, will begin weaning protocols today if it is not too late in the day. Otherwise, if needed, will restart Precedex and hold off on Versed gtt. Continue TF for now until there is consideration for actual extubation. (3) Acute exacerbation of chronic obstructive pulmonary disease: Assessment and Plan: Clinically improved on ventilator. Continue nebs, steroids. (4) Cigarette nicotine dependence with nicotine-induced disorder: Assessment and Plan: Heavy smoking history, up to 3ppd prior to current illness. Has a nicotine patch. (5) DM2 (diabetes mellitus, type 2): Assessment and Plan: Monitor FSBS while on steroids. Qualifiers: Diabetes mellitus chcf insulin use: unspecified bed bug exterminator insulin use status Diabetes mellitus complication status: without complication Qualified Code(s): E11.9 - Type 2 diabetes mellitus without complications (6) Hyperchloremia: Assessment and Plan: Cl- @ 110 today; NS stopped yesterday, on LR. (7) PEPE (obstructive sleep apnea): Assessment and Plan: Non-compliant with PAP @ home. (8) Obesity: Assessment and Plan: Weight loss recommended. Qualifiers: Obesity type: unspecified obesity type Obesity classification: adult class 1 (BMI 30 - 34.9) Serious obesity comorbidity presence: with serious comorbidity Body mass index: BMI 31.0-31.9 Qualified Code(s): E66.9 - Obesity, unspecified; Z68.31 - Body mass index [BMI] 31.0-31.9, adult Plan Patient remains in ICU requiring critical care services. Sedation vacation to facilitate weaning trials. Renew restraints, Conde. 35 minutes critical care time. Subjective Subjective Interval history: Yesterday, urine became greenish in color. Concerned about propofol infusion syndrome, changed her to Versed gtt. She was agitated on this at max dose, so added Precedex & fentanyl to maintain Whitaker score 2-3. ABG is improved this morning - pH/pCO2 resolving to the point to begin sedation vacation/weaning protocol. Versed and Precedex have been held - patient remains quite somnolent, slowly becoming more arousable- will withdraw to stimuli, but otherwise does not follow commands. Sputum sample post-intubation is positive for E.coli. Exam Constitutional Vital Signs, click to edit/add: Last Vital Signs Temp 99.2 F 01/21/24 11:00 Pulse 70 01/21/24 10:58 Resp 23 H 01/21/24 10:58 BP 160/100 H 01/21/24 07:04 Pulse Ox 95 01/21/24 10:58 O2 Del Method Mechanical Ventilator 01/21/24 10:58 O2 Flow Rate 30 01/20/24 03:27 FiO2 30 01/21/24 10:58 Documenting provider has reviewed patient's vital signs: yes Common normals: no apparent distress Other: Sedated, on vent HENMT Other: 8.0 ETT Eye Common normals: PERRL (~4mm bilaterally, not sluggish) Chest Common normals: inspection of chest normal Chest: symmetrical chest wall rise Respiratory Other: Breath sounds continue to improve. No wheezes, rhonchi clearing. Cardio Rate: regular rate Rhythm: regular rhythm GI Common normals: Normal to inspection, nondistended, normoactive bowel sounds present Inspection: central obesity Bladder/kidney exam: catheter in place Catheter type (Female): urethral Extremity Common normals: normal to inspection and normal capillary refill Neuro Other: Initially did not respond to sternal rub. Did have bilateral foot plantar reflex without Babinski Psych Other: Sedated
[2024-01-21] MEDS: PANTOPRAZOLE SODIUM 40 MG VIAL IV (14:13)
[2024-01-21 15:25] LABS: Glucometer 258 mg/dL (74-106)
[2024-01-21] MEDS: WATER 200 EACH OG-TUBE (17:53)
--- NOTE | 2024-01-21 18:00 | CT_ITS ---
The [address] [address] Patient Name: DIAN RAY MRN: [id number] date: 1975 Sex: F Assigned Patient Location: ICU Current Patient Location: ICU Accession/Order Number: [id number] Exam Date: 01/21/2024 18:20 Report Date: 01/21/2024 19:17 At the request of: SHAIKH AMINA Procedure: CT head/brain wo con EXAM: CT scan of the head without contrast. Dose reduction technique used: Automated exposure control and/or adjustment of the mA and/or kV according to patient size and/or use of iterative reconstruction technique. REASON FOR EXAM: confusion COMPARISON: CT scan dated 03/19/2021 FINDINGS: No intracranial hemorrhage, mass effect, midline shift, fractures or evidence of acute ischemic infarct. No hydrocephalus. Paranasal sinuses and mastoid air cells are clear. Remainder unremarkable. CT/CT head/brain wo con IMPRESSION: Negative head CT. Electronically authenticated by: MARVIN WELLS Date: 01/21/2024 19:17
--- NOTE | 2024-01-21 18:52 | PC.NURSE ---
Patient taken down by nurse, 2 radiology techs, and RT for a CT of the head per Dr. Cruz. CT completed with no complications. Patient returned to room at 1840, hooked back up to vent by RT. Patient repositioned in bed. Whitaker scale completed. Patient score is 5. Able to blink twice on command before falling asleep. Oral care provided, patient suctioned. Patient sitting up at 40 degrees, tube feed restarted at 30 mls/hr. VS taken. 138/80 BP, 84 pulse, 92% O2. 98.4 temp, Vent settings are 30 Fio2, 550 TV, 18 RR, [address] Cruz notified.
[2024-01-21 21:08] LABS: Glucometer 257 mg/dL (74-106)
[2024-01-21] MEDS: INSULIN DETEMIR 300 UNIT/3 ML INSULN.PEN 40 UNIT SUBQ (21:10)
[2024-01-22] VITALS (55 sets, daily range): BP systolic 99–166; BP diastolic 57–106; PULSE 62–118; RESP 16; TEMP 36.6–37.4; O2SAT 84–99
[2024-01-22] MEDS: METHYLPREDNISOLONE SOD SUCC PF 125 MG/2 ML VIAL IVP ×4 (00:06→17:55)
[2024-01-22] MEDS: WATER 200 EACH OG-TUBE ×2 (00:07→06:17)
[2024-01-22] MEDS: ACETAMINOPHEN 325 MG TABLET 650 MG PO (00:08)
[2024-01-22] MEDS: VANCOMYCIN HCL 1,000 MG in 0.9 % SODIUM CHLORIDE 250 ML 250 MG IV (00:08)
[2024-01-22] MEDS: PIPERACILLIN SODIUM/TAZOBACTAM 3.375 GM in 0.9 % SODIUM CHLORIDE 50 ML IV ×3 (01:00→17:55)
[2024-01-22] MEDS: IPRATROPIUM/ALBUTEROL SULFATE 3 ML AMPUL.NEB IH ×6 (03:01→22:55)
[2024-01-22 05:41] LABS: Basophils Percent Auto 0.2 % (0.2-2.0); Hematocrit 40.6 % (36.0-48.0); Hemoglobin 12.8 g/dL (12.0-16.0); Immature Granulocytes Pct Auto 1.6 % (0.0-0.5); Lymphocytes Absolute Auto 0.3 10^3/uL (1.2-3.8); Lymphocytes Percent Auto 1.6 % (20.5-60.0); Mean Corpuscular HGB Conc 31.5 g/dL (29.9-35.2); Mean Corpuscular Hemoglobin 32.2 pg (26.7-34.0); Mean Corpuscular Volume 102.3 fL (81.0-99.0); Mean Platelet Volume 9.1 fL (9.5-13.5); Monocytes Absolute Auto 0.2 10^3/uL (0.3-0.8); Monocytes Percent Auto 1.2 % (1.7-12.0); Neutrophils Absolute Auto 18.3 10^3/uL (1.4-6.5); Neutrophils Percent Auto 95.4 % (43.0-75.0); Platelet Count 284 10^3/uL (150-450); Red Blood Count 3.97 10^6/uL (4.20-5.40); White Blood Count 19.2 10^3/uL (4.0-11.0)
[2024-01-22 05:59] LABS: Alanine Aminotransferase 8 U/L (14-59); Albumin Globulin Ratio 0.7; Albumin Level 2.2 g/dL (3.4-5.0); Alkaline Phosphatase 61 U/L (46-116); Anion Gap 9.7; Aspartate Amino Transferase <5 U/L (15-37); BUN Creatinine Ratio 50.7; Bilirubin Total 0.4 mg/dL (0.2-1.0); Calcium 8.7 mg/dL (8.5-10.1); Carbon Dioxide 28.8 mmol/L (21.0-32.0); Chloride 114 mmol/L (98-107); Estimated GFR (African America >60 (>=60); Estimated GFR (Non-African Ame >60 (>=60); Globulin 3.3 g/dL; Glucose 297 mg/dL (74-106); Potassium 3.5 mmol/L (3.5-5.1); Sodium 149 mmol/L (136-145); Total Protein 5.5 g/dL (6.4-8.2)
--- NOTE | 2024-01-22 06:00 | XR_ITS ---
[address] [address] Patient Name: DIAN RAY MRN: [id number] date: 1975 Sex: F Assigned Patient Location: ICU Current Patient Location: ICU Accession/Order Number: [id number] Exam Date: 01/22/2024 05:58 Report Date: 01/22/2024 07:11 At the request of: MONAE GOLDMAN Procedure: XR chest 1V EXAMINATION: XR chest 1V HISTORY: Respiratory distress - Intubated patient COMPARISON: XR chest 01/21/2024 FINDINGS: LUNGS: Endotracheal tube with tip 2.9 cm above the chase. Lungs are moderately well expanded. Mild haziness within lung bases. VASCULATURE: No increased pulmonary vasculature. PLEURA: No pneumothorax, effusion, or pleural thickening. CARDIAC: No cardiomegaly or cardiac silhouette abnormality. MEDIASTINUM: No visible mass or adenopathy. BONES: No fracture or visible bone lesion. OTHER: Negative. XR/XR chest 1V IMPRESSION: 1. Endotracheal tube with tip 2.9 cm above the chase. 2. Moderately well expanded lungs with mild bibasilar atelectasis or infiltrates. No significant change. Electronically authenticated by: GERMAINE FARRELL Date: 01/22/2024 07:11
[2024-01-22] MEDS: GABAPENTIN 300 MG CAPSULE 600 MG PO ×3 (06:14→21:23)
[2024-01-22] MEDS: JEVITY 1.5 CAL 237 ML LIQUID FEED TUBE (06:14)
--- NOTE | 2024-01-22 07:30 | PC.NURSE ---
Assessment completed at this time. Patient was able to open her eyes and respond to questions by nodding her head yes and no. Patient was unable to move her hands on but when coughing was able to lift her right hand off the pillow, the left hand remained unmoved. Patient was able to move her left foot on command, but unable to move the right. Patient nodded yes when asked about pain. 4/10 pain was noted on her lower back. Patient was repositioned and nodded yes when ask if that was better. Suction done and oral care completed. Patients pulses present in all extremities. Pupils PERRLA. Wrist restraints removed, skin inspected with no signs of breakdown, restraints reapplied. Patients pallet is moist and pink. ET tube noted to be 65 at the lip and OG tube 65 at the lip. Tube feeding stopped at this time. 65mls of stomach residual noted. Vent setting Pio2 30%, TV 550, AC 18, Peep 5. VS 99.3, BP 153/93, HR 100, O2 SAT 90%, RR 18.
[2024-01-22 08:21] LABS: Glucometer 329 mg/dL (74-106)
[2024-01-22] MEDS: INSULIN ASPART 300 UNIT/3 ML PEN SUBQ ×4 (08:21→21:23)
[2024-01-22] MEDS: AMLODIPINE BESYLATE 5 MG TABLET 10 MG PO (08:22)
[2024-01-22] MEDS: PROSTAT 15 GM PROTEIN/100 CAL 30 ML LIQUID PACKET PO ×2 (08:22→21:23)
[2024-01-22] MEDS: NICOTINE 21 MG PATCH.TD24 TD (08:22)
[2024-01-22] MEDS: ATORVASTATIN CALCIUM 40 MG TABLET PO (08:22)
[2024-01-22] MEDS: risperiDONE 1 MG TABLET PO ×2 (08:22→21:23)
[2024-01-22] MEDS: ESCITALOPRAM 10 MG TABLET 20 MG PO (08:22)
[2024-01-22 08:34] LABS: Base Excess ABG 3.9 mmol/L (-2.0-2.0); PO2 ABG 53.5 mmHg (80.0-100.0)
[2024-01-22 08:35] LABS: Allen Test POSITIVE (POSITIVE); O2 Mode VENT; Oxygen Saturation ABG 88.8 %
[2024-01-22 08:36] LABS: Fractionated Inspired Oxygen 30 %; Minute Volume 16; Puncture Site R RADIAL; Rate 18; Tidal Volume 550; Vent Mode AC
[2024-01-22 08:37] LABS: Peak Inspiratory Pressure 28
[2024-01-22] MEDS: ENOXAPARIN SODIUM 40 MG/0.4 ML SYRINGE SUBQ (10:04)
[2024-01-22] MEDS: BUDESONIDE 0.5 MG/2 ML AMPULE NEB IH ×2 (10:09→22:55)
--- NOTE | 2024-01-22 11:02 | PM.PLPN ---
Progress Note: A&P Assessment and Plan (1) E. coli pneumonia: Assessment and Plan: Positive culture from sputum s/p intubation 01/19/2024. Remains on Zosyn. Janine spp. also positive from sputum - I do consider these as normal airway mick and are not contributing to her pneumonia/respiratory issues and therefore does not require additional treatment at this time. Qualifiers: Laterality: bilateral Lung location: unspecified part of lung Qualified Code(s): J15.5 - Pneumonia due to Escherichia coli (2) Acute respiratory failure with hypercapnia: Assessment and Plan: Intubated 01/19/2024. ABG improved, sedation stopped, passed weaning trials, and extubated today (01/22/2024) directly to BiPAP. Will see how patient does over next several hours. If she is doing well, transition to NC and use BiPAP 15/5 PRN. Advance diet as tolerated to 1800 ADA. (3) Acute exacerbation of chronic obstructive pulmonary disease: Assessment and Plan: Marked improvement since patient was originally seen. Continue nebs, steroids. (4) Cigarette nicotine dependence with nicotine-induced disorder: Assessment and Plan: Heavy smoking history, up to 3ppd prior to current illness. Has a nicotine patch. Had discussion with mother regarding treatment for nicotine addiction, including hypnotism, acupuncture, and incentives to stop smoking. (5) DM2 (diabetes mellitus, type 2): Assessment and Plan: Monitor FSBS while on steroids. 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 Free H2O deficit likely. (7) PEPE (obstructive sleep apnea): Assessment and Plan: Non-compliant with PAP @ home. Using BiPAP bridge & PRN here. (8) Obesity: Assessment and Plan: Weight loss recommended. Qualifiers: Obesity type: unspecified obesity type Obesity classification: adult class 1 (BMI 30 - 34.9) Serious obesity comorbidity presence: with serious comorbidity Body mass index: BMI 31.0-31.9 Qualified Code(s): E66.9 - Obesity, unspecified; Z68.31 - Body mass index [BMI] 31.0-31.9, adult Plan Patient is better. Will monitor to see if patient tolerates post-extubation with BiPAP. Renew Conde. D/C restraints. Subjective Subjective Interval history: Discussed case with RN & RT. Patient was only improving slowly yesterday from sedation, head CT done and was negative for any hemorrhage or other acute pathology. Sedation remained held. This morning, she is awake, alert, follows commands properly. No wheezes or rhonchi on exam. Changed vent to CPAP, weaned down PS. She did well, RSBI ~45. Extubated patient to BiPAP. Rechecked patient - patient is breathing calmly on BiPAP 15/5, SpO2 maintained in the 90s, non-labored. Discussed case with patient's mother in the room. Exam Constitutional Vital Signs, click to edit/add: Last Vital Signs Temp 99.3 F 01/22/24 07:50 Pulse 97 H 01/22/24 10:10 Resp 21 H 01/22/24 10:10 BP 154/90 H 01/22/24 10:00 Pulse Ox 90 L 01/22/24 10:10 O2 Del Method BIPAP 01/22/24 10:10 O2 Flow Rate 30 01/22/24 04:00 FiO2 35 01/22/24 10:10 Documenting provider has reviewed patient's vital signs: yes Common normals: no apparent distress Other: Awake, follows commands appropriately HENMT Other: 8.0 ETT was removed and transitioned directly to BiPAP. Eye Common normals: PERRL (~4mm bilaterally, not sluggish) Chest Common normals: inspection of chest normal Chest: symmetrical chest wall rise Respiratory Other: Breath sounds were clear to auscultation without wheezes, crackles, or rhonchi while on ventilator.. On reassessment, breath sounds were diminshed but remained clear to auscultation. Cardio Rate: regular rate Rhythm: regular rhythm GI Common normals: Normal to inspection, nondistended, normoactive bowel sounds present Inspection: central obesity Bladder/kidney exam: catheter in place Catheter type (Female): urethral Extremity Common normals: normal to inspection and normal capillary refill Neuro Other: She is weak but no focal defects noted. Psych Other: Patient follows simple commands.
--- NOTE | 2024-01-22 11:28 | RESP.RT ---
Titrated due to increased RR, WOB, HR per Dr. Yancey
[2024-01-22] MEDS: LORAZEPAM 2 MG/ML VIAL 0.5 MG IV (11:40)
[2024-01-22 11:43] LABS: Glucometer 257 mg/dL (74-106)
--- NOTE | 2024-01-22 12:13 | P.PN_ITS ---
Progress Note: Subjective Subjective Interval history: Patient extubated this am. Remains alert but sedated. Currently on BiPAP and states feels SOB. No cough. Afebrile. Sputum culture from intubation showed E. coli pneumonia. Pulmonology managing. Vitals stable. Denies pain or nausea. Exam Constitutional Vital Signs, click to edit/add: Last Vital Signs Temp 99.3 F 01/22/24 07:50 Pulse 117 H 01/22/24 11:20 Resp 21 H 01/22/24 10:10 BP 154/90 H 01/22/24 10:00 Pulse Ox 84 L 01/22/24 11:20 O2 Del Method BIPAP 01/22/24 10:10 O2 Flow Rate 30 01/22/24 04:00 FiO2 35 01/22/24 10:10 Common normals: no apparent distress and alert HENMT Common normals: normocephalic Eye Common normals: PERRL and EOMs intact bilaterally Respiratory Auscultation: diminished lung sounds Cardio Common normals: regular rate, regular rhythm, no gallops, no murmurs and no rub GI Common normals: Normal to inspection, nondistended, normoactive bowel sounds present and non-tender Extremity Common normals: no pedal edema Progress Note: Objective Labs Labs: Short CBC 01/22/24 Range/Units 03:50 WBC 19.2 H (4.0-11.0) 10^3/uL Hgb 12.8 (12.0-16.0) g/dL Hct 40.6 (36.0-48.0) % Plt Count 284 (150-450) 10^3/uL BMP 01/22/24 03:50 Sodium 149 H Potassium 3.5 Chloride 114 H Carbon Dioxide 28.8 BUN 36.0 H Creatinine 0.71 Glucose 297 H Calcium 8.7 Liver Function 01/22/24 Range/Units 03:50 Total Bilirubin 0.4 (0.2-1.0) mg/dL AST <5 L (15-37) U/L ALT 8 L (14-59) U/L Alkaline Phosphatase 61 (46-116) U/L Albumin 2.2 L (3.4-5.0) g/dL Progress Note: A&P Assessment and Plan (1) Sepsis: Qualifiers: Sepsis type: sepsis due to unspecified organism Sepsis acute organ dysfunction status: with acute organ dysfunction Severe sepsis acute organ dysfunction type: acute respiratory failure Acute respiratory failure type: with hypercapnia Severe sepsis shock status: without septic shock Qualified Code(s): A41.9 - Sepsis, unspecified organism; R65.20 - Severe sepsis without septic shock; J96.02 - Acute respiratory failure with hypercapnia (2) E. coli pneumonia: Qualifiers: Laterality: bilateral Lung location: unspecified part of lung Qualified Code(s): J15.5 - Pneumonia due to Escherichia coli (3) Acute respiratory failure with hypercapnia: (4) Acute exacerbation of chronic obstructive pulmonary disease: (5) Cigarette nicotine dependence with nicotine-induced disorder: (6) DM2 (diabetes mellitus, type 2): Qualifiers: Diabetes mellitus buttermaker helper insulin use: unspecified shelter insulin use status Diabetes mellitus complication status: without complication Qualified Code(s): E11.9 - Type 2 diabetes mellitus without complications (7) PEPE (obstructive sleep apnea): (8) Bipolar 2 disorder: (9) Hypernatremia: (10) Obesity: Qualifiers: Obesity type: unspecified obesity type Obesity classification: adult class 1 (BMI 30 - 34.9) Serious obesity comorbidity presence: with serious comorbidity Body mass index: BMI 31.0-31.9 Qualified Code(s): E66.9 - Obesity, unspecified; Z68.31 - Body mass index [BMI] 31.0-31.9, adult Plan Respiratory status improving and pulmonology managing. Extubated this am and on BiPAP. Wean as tolerated. Sputum with E. coli and stop vancomycin. Continue zosyn. Monitor labs and vitals. Once more alert and off BiPAP will advance diet. Will need PT/OT. Urinary Catheter Management Urinary Catheter Management Urethral: Cath placed during this visit: yes Urethral indwelling: Yes Reason for continuing: prolonged immobilization Insertion date: 01/18/24 Insertion time: 09:10
[2024-01-22] MEDS: PANTOPRAZOLE SODIUM 40 MG VIAL IV (12:31)
[2024-01-22] MEDS: POTASSIUM CHLORIDE/D5-0.45NACL 1,000 ML 80 MEQ IV (17:56)
[2024-01-22 18:01] LABS: Glucometer 261 mg/dL (74-106)
[2024-01-22 21:21] LABS: Glucometer 201 mg/dL (74-106)
[2024-01-22] MEDS: INSULIN DETEMIR 300 UNIT/3 ML INSULN.PEN 40 UNIT SUBQ (21:23)
[2024-01-23] VITALS (21 sets, daily range): BP systolic 133–187; BP diastolic 85–102; PULSE 51–89; RESP 16; TEMP 36–37.2; O2SAT 90–96
[2024-01-23] MEDS: PIPERACILLIN SODIUM/TAZOBACTAM 3.375 GM in 0.9 % SODIUM CHLORIDE 50 ML IV ×3 (01:01→17:37)
[2024-01-23] MEDS: METHYLPREDNISOLONE SOD SUCC PF 125 MG/2 ML VIAL IVP ×4 (01:01→17:37)
[2024-01-23] MEDS: IPRATROPIUM/ALBUTEROL SULFATE 3 ML AMPUL.NEB IH ×6 (03:33→23:05)
--- NOTE | 2024-01-23 05:07 | ECG_ITS ---
[facility] Test Date: 2024-01-23 Pat Name: DIAN RAY Department: Room: [facility] Gender: Female Orthopedic Cast Specialist: : [id number] Requested By: [id number] Order Number: [id number] Reading MD: MERCY GARRISON Measurements Intervals Stephan Rate: 65 P: 61 LA: 172 QRS: 49 QRSD: 92 T: 19 QT: 398 QTc: 409 Interpretive Statements 1100 Sinus rhythm 8102 Low QRS voltage in chest leads Nonspecific T wave changes anterior leads 9120 atypical ECG Compared to ECG 01/18/2024 01:14:05 No significant changes Electronically Signed On 01-23-2024 6:39:58 EDT by MERCY GARRISON
[2024-01-23] MEDS: POTASSIUM CHLORIDE/D5-0.45NACL 1,000 ML 80 MEQ IV ×2 (05:35→22:21)
[2024-01-23] MEDS: GABAPENTIN 300 MG CAPSULE 600 MG PO ×3 (05:35→21:55)
[2024-01-23 05:36] LABS: Basophils Percent Auto 0.2 % (0.2-2.0); Hematocrit 40.3 % (36.0-48.0); Hemoglobin 12.9 g/dL (12.0-16.0); Immature Granulocytes Abs Auto 0.35 10^3/uL (0.00-0.03); Immature Granulocytes Pct Auto 1.8 % (0.0-0.5); Lymphocytes Absolute Auto 0.4 10^3/uL (1.2-3.8); Lymphocytes Percent Auto 2.2 % (20.5-60.0); Mean Corpuscular Hemoglobin 32.7 pg (26.7-34.0); Mean Platelet Volume 9.3 fL (9.5-13.5); Monocytes Absolute Auto 0.2 10^3/uL (0.3-0.8); Monocytes Percent Auto 1.2 % (1.7-12.0); Neutrophils Absolute Auto 18.6 10^3/uL (1.4-6.5); Neutrophils Percent Auto 94.6 % (43.0-75.0); Platelet Count 240 10^3/uL (150-450); Red Blood Count 3.95 10^6/uL (4.20-5.40); White Blood Count 19.6 10^3/uL (4.0-11.0)
[2024-01-23 06:29] LABS: Alanine Aminotransferase 12 U/L (14-59); Albumin Globulin Ratio 0.7; Albumin Level 2.2 g/dL (3.4-5.0); Alkaline Phosphatase 58 U/L (46-116); Anion Gap 10.7; Aspartate Amino Transferase 11 U/L (15-37); Bilirubin Total 0.5 mg/dL (0.2-1.0); Calcium 7.9 mg/dL (8.5-10.1); Carbon Dioxide 27.5 mmol/L (21.0-32.0); Chloride 113 mmol/L (98-107); Estimated GFR (African America >60 (>=60); Estimated GFR (Non-African Ame >60 (>=60); Globulin 3.1 g/dL; Glucose 167 mg/dL (74-106); Magnesium 2.2 mg/dL (1.8-2.4); Potassium 3.2 mmol/L (3.5-5.1); Sodium 148 mmol/L (136-145); Total Protein 5.3 g/dL (6.4-8.2); Troponin I High Sensitivity 28.3 pg/mL (4.0-51.3)
[2024-01-23 07:53] LABS: Glucometer 238 mg/dL (74-106)
[2024-01-23] MEDS: INSULIN ASPART 300 UNIT/3 ML PEN SUBQ ×4 (08:11→22:10)
[2024-01-23] MEDS: ENOXAPARIN SODIUM 40 MG/0.4 ML SYRINGE SUBQ (08:13)
[2024-01-23] MEDS: PROSTAT 15 GM PROTEIN/100 CAL 30 ML LIQUID PACKET PO ×2 (08:13→21:55)
[2024-01-23] MEDS: ATORVASTATIN CALCIUM 40 MG TABLET PO (08:13)
[2024-01-23] MEDS: ESCITALOPRAM 10 MG TABLET 20 MG PO (08:13)
[2024-01-23] MEDS: AMLODIPINE BESYLATE 5 MG TABLET 10 MG PO (08:13)
[2024-01-23] MEDS: risperiDONE 1 MG TABLET PO ×2 (08:13→21:55)
[2024-01-23] MEDS: NICOTINE 21 MG PATCH.TD24 TD (08:14)
--- NOTE | 2024-01-23 11:23 | P.PN_ITS ---
Progress Note: Subjective Subjective Interval history: Patient significantly improved this am. Alert and answering appropriately. Reports mild SOB and cough but no sputum. On 2 LPM per NC. Afebrile. Decreased appetite but no nausea or emesis. No chest pain or palpitations. Severe weakness and difficulty with transfers or moving. Exam Constitutional Vital Signs, click to edit/add: Last Vital Signs Temp 97.8 F 01/23/24 07:42 Pulse 84 01/23/24 10:00 Resp 16 01/23/24 07:42 BP 156/102 H 01/23/24 04:00 Pulse Ox 90 L 01/23/24 10:00 O2 Del Method Nasal Cannula 01/23/24 07:22 O2 Flow Rate 2 01/23/24 07:22 FiO2 25 01/23/24 04:00 Documenting provider has reviewed patient's vital signs: yes Common normals: no apparent distress, oriented x3 and alert HENMT Common normals: normocephalic Eye Common normals: PERRL and EOMs intact bilaterally Respiratory Common normals: normal respiratory effort Auscultation: wheezes scattered wheezes; lung sounds not diminished Cardio Common normals: regular rate, regular rhythm, no gallops, no murmurs and no rub GI Common normals: Normal to inspection, nondistended, normoactive bowel sounds present and non-tender Extremity Common normals: no pedal edema Progress Note: Objective Labs Labs: Short CBC 01/23/24 Range/Units 04:13 WBC 19.6 H (4.0-11.0) 10^3/uL Hgb 12.9 (12.0-16.0) g/dL Hct 40.3 (36.0-48.0) % Plt Count 240 (150-450) 10^3/uL BMP 01/23/24 04:13 Sodium 148 H Potassium 3.2 L Chloride 113 H Carbon Dioxide 27.5 BUN 30.0 H Creatinine 0.60 Glucose 167 H Calcium 7.9 L Liver Function 01/23/24 Range/Units 04:13 Total Bilirubin 0.5 (0.2-1.0) mg/dL AST 11 L (15-37) U/L ALT 12 L (14-59) U/L Alkaline Phosphatase 58 (46-116) U/L Albumin 2.2 L (3.4-5.0) g/dL Progress Note: A&P Assessment and Plan (1) Sepsis: Qualifiers: Sepsis type: sepsis due to unspecified organism Sepsis acute organ dysfunction status: with acute organ dysfunction Severe sepsis acute organ dysfunction type: acute respiratory failure Acute respiratory failure type: with hypercapnia Severe sepsis shock status: without septic shock Qualified Code(s): A41.9 - Sepsis, unspecified organism; R65.20 - Severe sepsis without septic shock; J96.02 - Acute respiratory failure with hypercapnia (2) E. 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 Continue antibiotics and steroids. Continue breathing treatments. Encourage PO intake. Severe weakness and will need PT/OT. May need SNF upon discharge. Urinary Catheter Management Urinary Catheter Management Urethral: Cath placed during this visit: yes Urethral indwelling: Yes Reason for continuing: prolonged immobilization Insertion date: 01/18/24 Insertion time: 09:10
[2024-01-23] MEDS: BUDESONIDE 0.5 MG/2 ML AMPULE NEB IH ×2 (11:39→23:05)
[2024-01-23 12:44] LABS: Glucometer 261 mg/dL (74-106)
[2024-01-23] MEDS: PANTOPRAZOLE SODIUM 40 MG VIAL IV (12:44)
[2024-01-23 17:36] LABS: Glucometer 300 mg/dL (74-106)
[2024-01-23 21:48] LABS: Glucometer 241 mg/dL (74-106)
[2024-01-23] MEDS: ACETAMINOPHEN 325 MG TABLET 650 MG PO (21:55)
[2024-01-23] MEDS: TIZANIDINE HCL 4 MG TABLET PO (21:56)
[2024-01-23] MEDS: INSULIN DETEMIR 300 UNIT/3 ML INSULN.PEN 40 UNIT SUBQ (22:12)
[2024-01-24] VITALS (26 sets, daily range): BP systolic 122–160; BP diastolic 76–99; PULSE 44–105; RESP 16; TEMP 36.3–36.9; O2SAT 89–97
[2024-01-24] MEDS: METHYLPREDNISOLONE SOD SUCC PF 125 MG/2 ML VIAL IVP ×4 (01:00→17:50)
[2024-01-24] MEDS: PIPERACILLIN SODIUM/TAZOBACTAM 3.375 GM in 0.9 % SODIUM CHLORIDE 50 ML IV ×3 (01:03→17:50)
[2024-01-24] MEDS: IPRATROPIUM/ALBUTEROL SULFATE 3 ML AMPUL.NEB IH ×6 (03:41→23:09)
[2024-01-24 05:14] LABS: Basophils Percent Auto 0.2 % (0.2-2.0); Hematocrit 38.4 % (36.0-48.0); Hemoglobin 12.2 g/dL (12.0-16.0); Immature Granulocytes Abs Auto 0.17 10^3/uL (0.00-0.03); Immature Granulocytes Pct Auto 1.5 % (0.0-0.5); Lymphocytes Absolute Auto 0.4 10^3/uL (1.2-3.8); Lymphocytes Percent Auto 3.1 % (20.5-60.0); Mean Corpuscular HGB Conc 31.8 g/dL (29.9-35.2); Mean Corpuscular Hemoglobin 32.1 pg (26.7-34.0); Mean Corpuscular Volume 101.1 fL (81.0-99.0); Mean Platelet Volume 9.5 fL (9.5-13.5); Monocytes Absolute Auto 0.1 10^3/uL (0.3-0.8); Neutrophils Absolute Auto 10.8 10^3/uL (1.4-6.5); Neutrophils Percent Auto 94.2 % (43.0-75.0); Platelet Count 182 10^3/uL (150-450); Red Cell Distribution Width 14.4 % (11.0-15.0); White Blood Count 11.5 10^3/uL (4.0-11.0)
[2024-01-24] MEDS: GABAPENTIN 300 MG CAPSULE 600 MG PO ×3 (05:27→21:02)
[2024-01-24] MEDS: TIZANIDINE HCL 4 MG TABLET PO ×2 (05:27→21:02)
[2024-01-24 06:18] LABS: Anion Gap 8.7; BUN Creatinine Ratio 30.6; Calcium 7.9 mg/dL (8.5-10.1); Carbon Dioxide 30.4 mmol/L (21.0-32.0); Chloride 105 mmol/L (98-107); Estimated GFR (African America >60 (>=60); Estimated GFR (Non-African Ame >60 (>=60); Glucose 325 mg/dL (74-106); Potassium 4.1 mmol/L (3.5-5.1); Sodium 140 mmol/L (136-145)
[2024-01-24 07:35] LABS: Glucometer 276 mg/dL (74-106)
[2024-01-24] MEDS: INSULIN ASPART 300 UNIT/3 ML PEN SUBQ ×4 (09:29→21:03)
--- NOTE | 2024-01-24 10:01 | SWNOTE1 ---
SW spoke to case management and pt wants to go to rehab at [facility]. SW to reach out to [facility].
[2024-01-24] MEDS: PANTOPRAZOLE SODIUM 40 MG VIAL IV (10:03)
[2024-01-24] MEDS: NICOTINE 21 MG PATCH.TD24 TD (10:03)
[2024-01-24] MEDS: ENOXAPARIN SODIUM 40 MG/0.4 ML SYRINGE SUBQ (10:04)
[2024-01-24] MEDS: risperiDONE 1 MG TABLET PO ×2 (10:04→21:02)
[2024-01-24] MEDS: ATORVASTATIN CALCIUM 40 MG TABLET PO (10:04)
[2024-01-24] MEDS: AMLODIPINE BESYLATE 5 MG TABLET 10 MG PO (10:05)
[2024-01-24] MEDS: POTASSIUM CHLORIDE/D5-0.45NACL 1,000 ML 80 MEQ IV (10:06)
[2024-01-24] MEDS: ESCITALOPRAM 10 MG TABLET 20 MG PO (10:16)
[2024-01-24] MEDS: BUDESONIDE 0.5 MG/2 ML AMPULE NEB IH ×2 (10:27→23:09)
--- NOTE | 2024-01-24 10:30 | RESP.RT ---
SpO2 89% on room air, increased to 2 LPM
--- NOTE | 2024-01-24 11:00 | CM.NOTE ---
Rounds made with Dr. Sarmiento. Discussed discharge planning and Christiane is open to SNF at [facility]. Case Briefer informed. Await precert.
[2024-01-24 11:07] LABS: Glucometer 310 mg/dL (74-106)
--- NOTE | 2024-01-24 11:20 | P.PN_ITS ---
Progress Note: Subjective Subjective Interval history: Patient continues to improve. Remains on NC and using BiPAP at night during sleep. Reports mild SOB and cough but no sputum. Afebrile. Appetite improved and no nausea or emesis. No chest pain or palpitations. Continued weakness and difficulty with transfers or moving. Exam Constitutional Vital Signs, click to edit/add: Last Vital Signs Temp 97.7 F 01/24/24 08:04 Pulse 66 01/24/24 10:27 Resp 14 01/24/24 08:04 BP 160/99 H 01/24/24 08:04 Pulse Ox 89 L 01/24/24 10:27 O2 Del Method Room Air 01/24/24 10:27 O2 Flow Rate 2 01/24/24 05:00 FiO2 25 01/24/24 07:22 Documenting provider has reviewed patient's vital signs: yes Common normals: no apparent distress, oriented x3 and alert HENMT Common normals: normocephalic Eye Common normals: PERRL and EOMs intact bilaterally Respiratory Common normals: normal respiratory effort Auscultation: wheezes expiratory wheezes Cardio Common normals: regular rate, regular rhythm, no gallops, no murmurs and no rub GI Common normals: Normal to inspection, nondistended, normoactive bowel sounds present and non-tender Extremity Common normals: no pedal edema Progress Note: Objective Labs Labs: Short CBC 01/24/24 Range/Units 04:20 WBC 11.5 H (4.0-11.0) 10^3/uL Hgb 12.2 (12.0-16.0) g/dL Hct 38.4 (36.0-48.0) % Plt Count 182 (150-450) 10^3/uL BMP 01/24/24 01/24/24 04:20 05:50 Sodium Cancelled 140 Potassium Cancelled 4.1 Chloride Cancelled 105 Carbon Dioxide Cancelled 30.4 BUN Cancelled 19.0 H Creatinine Cancelled 0.62 Glucose Cancelled 325 H Calcium Cancelled 7.9 L Progress Note: A&P Assessment and Plan (1) Sepsis: Qualifiers: Sepsis type: sepsis due to unspecified organism Sepsis acute organ dysfunction status: with acute organ dysfunction Severe sepsis acute organ dysfunction type: acute respiratory failure Acute respiratory failure type: with hypercapnia Severe sepsis shock status: without septic shock Qualified Code(s): A41.9 - Sepsis, unspecified organism; R65.20 - Severe sepsis without septic shock; J96.02 - Acute respiratory failure with hypercapnia (2) E. 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 insulin use status Diabetes mellitus complication status: without complication Qualified Code(s): E11.9 - Type 2 diabetes mellitus without complications (7) PEPE (obstructive sleep apnea): (8) Bipolar 2 disorder: (9) Hypernatremia: (10) Obesity: Qualifiers: Obesity type: unspecified obesity type Obesity classification: adult class 1 (BMI 30 - 34.9) Serious obesity comorbidity presence: with serious comorbidity Body mass index: BMI 31.0-31.9 Qualified Code(s): E66.9 - Obesity, unspecified; Z68.31 - Body mass index [BMI] 31.0-31.9, adult Plan Patient continues to improve and continue antibiotics, steroids, and breathing treatments. Wean O2 as tolerated. Encourage PO intake. Severe weakness and therapy recommends SNF. Information sent to insurance for precertification. Urinary Catheter Management Urinary Catheter Management Urethral: Cath placed during this visit: yes Urethral indwelling: Yes Reason for continuing: decision to DC catheter Insertion date: 01/18/24 Insertion time: 09:10
--- NOTE | 2024-01-24 12:39 | SWNOTE1 ---
[facility] not able to accept due to pt being 3 pack a day smoker. SW to let pt know.
--- NOTE | 2024-01-24 13:26 | SWNOTE1 ---
SW did speak to pt and her mother in room. They reviewed list from medicare.gov with star ratings. They would like SW to try [facility] then [facility]. SW sent referral to [facility]. SW did let pt know that SW can complete HCPOA, possibly today or tomorrow. Pt in agreement.
--- NOTE | 2024-01-24 15:10 | SWNOTE1 ---
[facility] is able to accept, they will start precert once PT/OT notes received. SW updated patient. SW did ask if pt has own CPAP/BIPAP? Pt voiced she does not. She was supposed to get one, but did not like the oxygen blowing in her face. Pt voiced she should have one. [employer] called and let Jacqueline at [facility] know. They will order one for pt to have at [facility].
--- NOTE | 2024-01-24 16:02 | RESP.RT ---
SpO2 95% on 2 LPM NC decreased to 1 LPM
[2024-01-24 16:25] LABS: Glucometer 266 mg/dL (74-106)
[2024-01-24] MEDS: ACETAMINOPHEN 325 MG TABLET 650 MG PO (18:14)
[2024-01-24 19:52] LABS: Glucometer 278 mg/dL (74-106)
[2024-01-24] MEDS: INSULIN DETEMIR 300 UNIT/3 ML INSULN.PEN 40 UNIT SUBQ (21:04)
[2024-01-25] VITALS (26 sets, daily range): BP systolic 128–161; BP diastolic 77–97; PULSE 49–88; RESP 16; TEMP 36.3–37.2; O2SAT 90–97
[2024-01-25] MEDS: METHYLPREDNISOLONE SOD SUCC PF 125 MG/2 ML VIAL IVP ×5 (00:58→23:34)
[2024-01-25] MEDS: PIPERACILLIN SODIUM/TAZOBACTAM 3.375 GM in 0.9 % SODIUM CHLORIDE 50 ML IV ×3 (01:04→17:01)
[2024-01-25] MEDS: POTASSIUM CHLORIDE/D5-0.45NACL 1,000 ML 80 MEQ IV ×2 (01:07→13:40)
[2024-01-25] MEDS: IPRATROPIUM/ALBUTEROL SULFATE 3 ML AMPUL.NEB IH ×6 (03:56→23:37)
[2024-01-25 04:50] LABS: Basophils Percent Auto 0.1 % (0.2-2.0); Hematocrit 39.8 % (36.0-48.0); Hemoglobin 12.7 g/dL (12.0-16.0); Immature Granulocytes Abs Auto 0.11 10^3/uL (0.00-0.03); Immature Granulocytes Pct Auto 0.9 % (0.0-0.5); Lymphocytes Absolute Auto 0.4 10^3/uL (1.2-3.8); Lymphocytes Percent Auto 2.9 % (20.5-60.0); Mean Corpuscular HGB Conc 31.9 g/dL (29.9-35.2); Mean Corpuscular Hemoglobin 31.6 pg (26.7-34.0); Mean Platelet Volume 9.7 fL (9.5-13.5); Monocytes Absolute Auto 0.1 10^3/uL (0.3-0.8); Monocytes Percent Auto 1.1 % (1.7-12.0); Platelet Count 194 10^3/uL (150-450); Red Blood Count 4.02 10^6/uL (4.20-5.40); White Blood Count 12.6 10^3/uL (4.0-11.0)
[2024-01-25 05:02] LABS: BUN Creatinine Ratio 23.7; Calcium 8.1 mg/dL (8.5-10.1); Carbon Dioxide 29.2 mmol/L (21.0-32.0); Chloride 104 mmol/L (98-107); Estimated GFR (African America >60 (>=60); Estimated GFR (Non-African Ame >60 (>=60); Glucose 287 mg/dL (74-106)
[2024-01-25] MEDS: GABAPENTIN 300 MG CAPSULE 600 MG PO ×3 (05:25→21:28)
[2024-01-25 07:47] LABS: Glucometer 272 mg/dL (74-106)
[2024-01-25] MEDS: INSULIN ASPART 300 UNIT/3 ML PEN SUBQ ×4 (08:08→21:29)
[2024-01-25] MEDS: AMLODIPINE BESYLATE 5 MG TABLET 10 MG PO (08:13)
[2024-01-25] MEDS: ATORVASTATIN CALCIUM 40 MG TABLET PO (08:20)
[2024-01-25] MEDS: ACETAMINOPHEN 325 MG TABLET 650 MG PO (08:20)
[2024-01-25] MEDS: risperiDONE 1 MG TABLET PO ×2 (08:20→21:28)
[2024-01-25] MEDS: ESCITALOPRAM 10 MG TABLET 20 MG PO (08:20)
[2024-01-25] MEDS: NICOTINE 21 MG PATCH.TD24 TD (08:21)
[2024-01-25] MEDS: ENOXAPARIN SODIUM 40 MG/0.4 ML SYRINGE SUBQ (08:23)
--- NOTE | 2024-01-25 08:31 | P.PLPN_ITS ---
Progress Note: A&P Assessment and Plan (1) E. coli pneumonia: Assessment and Plan: Positive culture from sputum s/p intubation 01/19/2024, treated with Zosyn. Qualifiers: Laterality: bilateral Lung location: unspecified part of lung Qualified Code(s): J15.5 - Pneumonia due to Escherichia coli (2) Acute respiratory failure with hypercapnia: Assessment and Plan: Intubated 01/19/2024, extubated 01/22/2024. (3) Acute exacerbation of chronic obstructive pulmonary disease: Assessment and Plan: Increased air movement, but now has some wheezes. Continue bronchodilators. (4) Cigarette nicotine dependence with nicotine-induced disorder: Assessment and Plan: Counseled patient on smoking cessation now that she is coherent. (5) DM2 (diabetes mellitus, type 2): Assessment and Plan: Monitor FSBS while on steroids. 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 Using BiPAP @ HS here. If she decides she wants to start using it @ home, will need outpatient testing. (7) Hyperchloremia: Assessment and Plan: Cl- resolved to normal @ 104. (8) Obesity: Assessment and Plan: Weight loss recommended. Qualifiers: Obesity type: unspecified obesity type Obesity classification: adult class 1 (BMI 30 - 34.9) Serious obesity comorbidity presence: with serious comorbidity Body mass index: BMI 31.0-31.9 Qualified Code(s): E66.9 - Obesity, unspecified; Z68.31 - Body mass index [BMI] 31.0-31.9, adult Plan Overall slowly improving. Imperative that she not restart smoking. Subjective Subjective Interval history: Patient is doing better overall. She still has some weakness, plans on going to rehab for therapy. She is using BiPAP overnight, remains on NC during day. States breathing is less strenuous than before. States last week was a blur, does not remember much at all. When I asked her about smoking, she stated I'm done with it. Exam Constitutional Vital Signs, click to edit/add: Last Vital Signs Temp 97.4 F L 01/25/24 04:00 Pulse 82 01/25/24 07:50 Resp 18 01/25/24 07:56 BP 156/97 H 01/25/24 08:13 Pulse Ox 92 L 01/25/24 07:34 O2 Del Method Nasal Cannula 01/25/24 07:34 O2 Flow Rate 2 01/25/24 07:34 FiO2 30 01/25/24 03:57 Documenting provider has reviewed patient's vital signs: yes Common normals: no apparent distress Other: Laying in bed, in no distress HENMT Other: Wearing nasal cannula. No oral candidiasis. Eye Common normals: PERRL (~4mm bilaterally, not sluggish) Chest Common normals: inspection of chest normal Chest: symmetrical chest wall rise Respiratory Other: Deeper breath sounds than 2 days ago, but now has mild expiratory wheezes present. Cardio Rate: regular rate Rhythm: regular rhythm GI Inspection: normal to inspection and central obesity Extremity Common normals: normal to inspection Neuro Other: Moves extremities Psych Other: A&O x3
[2024-01-25 08:59] LABS: Anion Gap 10.8; Sodium 140 mmol/L (136-145)
--- NOTE | 2024-01-25 09:20 | OT.DAILY ---
Occupational Therapy Daily Note OT Inpatient Daily Visit Note Start: 01/24/24 10:57 Freq: Status: Active Protocol: Document 01/25/24 09:14 [id number] (Rec: 01/25/24 09:15 [id number]) OT Visit Details Time In/Time Out Time In 09:00 Time Out 09:10 OT Treatment Plan Subjective Subjective I am doing okay right now, I don't need anything Edit Result 01/25/24 09:14 [id number] (Rec: 01/25/24 09:19 [id number]) OT Treatment Plan Subjective Subjective I am doing okay right now, I don't need anything Objective Objective Pt denies pain upon arrival. AAOx4. Pt answering questions with a normal thought process. Pt reports she is nervous to stand up without extra support of people, she is feeling anxious. Pt able to complete oral hygiene seated in bed. Presented with all supplies she demonstrates good sequencing, and appropriate use. O2 at 94% on 1L NC. Speaking in full sentences w/o shortness of breath. Denies need for toileting and transfers. Assessment Assessment Pt tolerated treatment well. OT Tour Actor Timed Codes Self-Nursing Home Management minutes ( 10 minutes) Self-Nursing Home Management units 1
[2024-01-25 11:04] LABS: Glucometer 253 mg/dL (74-106)
--- NOTE | 2024-01-25 11:16 | REH.PTDLY ---
Physical Therapy Daily Note PT Daily Note/Assess Start: 01/24/24 11:27 Freq: Status: Active Protocol: Document 01/25/24 11:11 AUDRARAINER (Rec: 01/25/24 11:16 [id number]) Physical Therapy Daily Note/Assessment Time In 09:55 Time Out 10:05 Subjective Nurses aide in room with pt upon arrival, pt sitting on commode. Struggling to stand up from commode Therapeutic Exercise Minutes (minutes) 2 Therapeutic Exercise Units 0 Therapeutic Exercise Treatment instructed in LAQ, marching, and hip abd slides 10x ea sitting bedside prior to lying supine for leg mobility and strength. Therapeutic Activity Minutes (minutes) 8 Therapeutic Activity Units 1 Therapeutic Activity Comments Attempted standing with 2 assist and pt's knees are buckling. Second TELECOMMUNICATIONS SUPPORT enters room and with two therapist's pt is able to stand Max A x2 from commode with feet being blocked from sliding. Once pt is fully upright she is able to stabilize herself better. Cues with transfer from commode to bed with pt using RW Min Ax2. Min A with sit to supine transfer with B LEs. Total Therapy Minutes 10 Total Physical Therapy Units 1 Daily Note Summary Wayne LEs are very weak, requires Max A x2 with sit to stand transfer from commode as this is lower surface. Pt fatigues easily. Will need SNF stay to regain strength and independence.
[2024-01-25] MEDS: BUDESONIDE 0.5 MG/2 ML AMPULE NEB IH ×2 (11:26→23:37)
--- NOTE | 2024-01-25 11:32 | CM.NOTE ---
Rounds made with Dr. Sarmiento. Awaiting precert for [facility].
--- NOTE | 2024-01-25 12:27 | SWNOTE1 ---
Updates set to [facility] for precert. Updates included vitals, PT/OT, pulmonology progress note, and med list.
[2024-01-25] MEDS: PANTOPRAZOLE SODIUM 40 MG VIAL IV (12:44)
--- NOTE | 2024-01-25 14:41 | SWNOTE1 ---
SW checked with [place] and precert is still pending.
[2024-01-25 16:23] LABS: Glucometer 225 mg/dL (74-106)
--- NOTE | 2024-01-25 18:12 | PM.PN ---
Progress Note: Subjective Subjective Interval history: Patient continues to improve. Stable on 2 LPM NC and using BiPAP at night during sleep. Reports mild SOB and cough but no sputum. Afebrile. Appetite improved and no nausea or emesis. No chest pain or palpitations. Continued weakness and difficulty with transfers or moving. Information sent to insurance for SNF. Exam Constitutional Vital Signs, click to edit/add: Last Vital Signs Temp 98.9 F 01/25/24 14:18 Pulse 79 01/25/24 17:50 Resp 16 01/25/24 14:18 BP 161/92 H 01/25/24 14:18 Pulse Ox 92 L 01/25/24 14:18 O2 Del Method Nasal Cannula 01/25/24 15:57 O2 Flow Rate 1 01/25/24 15:57 FiO2 30 01/25/24 03:57 Documenting provider has reviewed patient's vital signs: yes Common normals: no apparent distress, oriented x3 and alert HENMT Common normals: normocephalic Eye Common normals: PERRL and EOMs intact bilaterally Respiratory Common normals: normal respiratory effort Auscultation: wheezes expiratory wheezes Cardio Common normals: regular rate, regular rhythm, no gallops, no murmurs and no rub GI Common normals: Normal to inspection, nondistended, normoactive bowel sounds present and non-tender Extremity Common normals: no pedal edema Progress Note: Objective Labs Labs: Short CBC 01/25/24 Range/Units 04:00 WBC 12.6 H (4.0-11.0) 10^3/uL Hgb 12.7 (12.0-16.0) g/dL Hct 39.8 (36.0-48.0) % Plt Count 194 (150-450) 10^3/uL BMP 01/25/24 04:00 Sodium 140 Potassium 4.0 Chloride 104 Carbon Dioxide 29.2 BUN 14.0 Creatinine 0.59 Glucose 287 H Calcium 8.1 L Progress Note: A&P Assessment and Plan (1) E. 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 Continue antibiotics and steroids. Continue breathing treatments and wean oxygen as tolerated. Continue PT/OT for weakness. Awaiting insurance approval for SNF. Urinary Catheter Management Urinary Catheter Management Urethral: Cath placed during this visit: yes, but has since been removed by the nurse Urethral indwelling: Yes Insertion date: 01/18/24 Insertion time: 09:10 Removal date: 01/24/24 Removal time: 09:35
[2024-01-25 20:45] LABS: Glucometer 243 mg/dL (74-106)
[2024-01-25] MEDS: INSULIN DETEMIR 300 UNIT/3 ML INSULN.PEN 40 UNIT SUBQ (21:29)
[2024-01-25] MEDS: TIZANIDINE HCL 4 MG TABLET PO (21:32)
--- NOTE | 2024-01-25 22:06 | PC.NURSE ---
loose watery stool
[2024-01-26] VITALS (17 sets, daily range): BP systolic 133–138; BP diastolic 79–86; PULSE 53–80; RESP 16; TEMP 36.4–36.8; O2SAT 91–97
[2024-01-26] MEDS: PIPERACILLIN SODIUM/TAZOBACTAM 3.375 GM in 0.9 % SODIUM CHLORIDE 50 ML IV ×2 (02:02→09:44)
[2024-01-26] MEDS: POTASSIUM CHLORIDE/D5-0.45NACL 1,000 ML 80 MEQ IV ×2 (02:03→13:42)
[2024-01-26] MEDS: IPRATROPIUM/ALBUTEROL SULFATE 3 ML AMPUL.NEB IH ×4 (03:55→15:54)
[2024-01-26 05:15] LABS: Basophils Percent Auto 0.1 % (0.2-2.0); Hematocrit 38.7 % (36.0-48.0); Hemoglobin 12.5 g/dL (12.0-16.0); Immature Granulocytes Abs Auto 0.11 10^3/uL (0.00-0.03); Immature Granulocytes Pct Auto 0.9 % (0.0-0.5); Lymphocytes Absolute Auto 0.3 10^3/uL (1.2-3.8); Lymphocytes Percent Auto 2.6 % (20.5-60.0); Mean Corpuscular HGB Conc 32.3 g/dL (29.9-35.2); Mean Corpuscular Hemoglobin 31.9 pg (26.7-34.0); Mean Corpuscular Volume 98.7 fL (81.0-99.0); Mean Platelet Volume 9.9 fL (9.5-13.5); Monocytes Absolute Auto 0.2 10^3/uL (0.3-0.8); Monocytes Percent Auto 1.7 % (1.7-12.0); Neutrophils Absolute Auto 11.5 10^3/uL (1.4-6.5); Neutrophils Percent Auto 94.7 % (43.0-75.0); Platelet Count 181 10^3/uL (150-450); Red Blood Count 3.92 10^6/uL (4.20-5.40); Red Cell Distribution Width 14.1 % (11.0-15.0); White Blood Count 12.1 10^3/uL (4.0-11.0)
[2024-01-26 05:26] LABS: Anion Gap 7.8; BUN Creatinine Ratio 19.6; Carbon Dioxide 30.4 mmol/L (21.0-32.0); Chloride 104 mmol/L (98-107); Estimated GFR (African America >60 (>=60); Estimated GFR (Non-African Ame >60 (>=60); Glucose 352 mg/dL (74-106); Potassium 4.2 mmol/L (3.5-5.1); Sodium 138 mmol/L (136-145)
[2024-01-26] MEDS: METHYLPREDNISOLONE SOD SUCC PF 125 MG/2 ML VIAL IVP ×2 (06:06→11:19)
[2024-01-26] MEDS: GABAPENTIN 300 MG CAPSULE 600 MG PO ×2 (06:06→13:42)
[2024-01-26] MEDS: AMLODIPINE BESYLATE 5 MG TABLET 10 MG PO (08:46)
[2024-01-26] MEDS: ATORVASTATIN CALCIUM 40 MG TABLET PO (08:46)
[2024-01-26] MEDS: risperiDONE 1 MG TABLET PO (08:47)
[2024-01-26] MEDS: ENOXAPARIN SODIUM 40 MG/0.4 ML SYRINGE SUBQ (08:47)
[2024-01-26] MEDS: ESCITALOPRAM 10 MG TABLET 20 MG PO (08:47)
[2024-01-26] MEDS: NICOTINE 21 MG PATCH.TD24 TD (08:47)
[2024-01-26] MEDS: TIZANIDINE HCL 4 MG TABLET PO (08:50)
[2024-01-26] MEDS: INSULIN ASPART 300 UNIT/3 ML PEN SUBQ ×2 (08:50→11:27)
--- NOTE | 2024-01-26 10:36 | REH.PTDLY ---
Physical Therapy Daily Note PT Daily Note/Assess Start: 01/24/24 11:27 Freq: Status: Active Protocol: Document 01/26/24 10:30 STACIA (Rec: 01/26/24 10:36 STACIA [id number]) Physical Therapy Daily Note/Assessment Time In 09:40 Time Out 09:55 Subjective Pt agreeable to therapy, reports she is just waiting for insurance approval to go to rehab. Therapeutic Exercise Minutes (minutes) 8 Therapeutic Exercise Units 1 Therapeutic Exercise Treatment Instructed in supine B LE exs 10x ea requiring AA for full ROM. Exs included AP, QS, heel slides, hip abd and SLR. Needs more assist with R LE compared to L LE. Seated B LE LAQ, marching, and hip add 10x ea. Therapeutic Activity Minutes (minutes) 7 Therapeutic Activity Units 0 Therapeutic Activity Comments Supine to sit transfers Min A to sit bedside. Cues for upright posture with sitting balance. Sit to stand transfers attempted with bed slightly raised, but pt unable to stand upright with Max A x1. Raised bed higher and pt is able to stand upright Mod A x1. Once standing instructed in side stepping to the L 4 steps with RW CGA. Able to step fwd/retro wtih RW CGA 3x ea. Pt stood in place for 2 mins and fatigues. Pt then sits bedside to eat breakfast. Nursing and nurses aide notified of pt sitting bedside with call light at hand. Total Therapy Minutes 15 Total Physical Therapy Units 1 Daily Note Summary Pt continues to require heavy assistance if pt is transferring from a lower surface. Does better when surface is raised. Requires AA with supine exs due to weakness. Pt will require SNF stay to regain strength in order to return home.
--- NOTE | 2024-01-26 10:36 | SWNOTE1 ---
SW checked with Jacqueline at [facility] and precert still pending.
[2024-01-26 11:27] LABS: Glucometer 323 mg/dL (74-106)
[2024-01-26] MEDS: BUDESONIDE 0.5 MG/2 ML AMPULE NEB IH (11:32)
--- NOTE | 2024-01-26 11:48 | CM.NOTE ---
Rounds made with Dr. Sarmiento. Awaiting precert for Skilled facility. Dr. Sarmiento discusses treatment plan.
--- NOTE | 2024-01-26 12:06 | P.PLPN_ITS ---
Progress Note: A&P Assessment and Plan (1) E. coli pneumonia: Assessment and Plan: Positive culture from sputum s/p intubation 01/19/2024, treated with Zosyn. Can change to Augmentin outpatient. Qualifiers: Laterality: bilateral Lung location: unspecified part of lung Qualified Code(s): J15.5 - Pneumonia due to Escherichia coli (2) Acute respiratory failure with hypercapnia: Assessment and Plan: Intubated 01/19/2024, extubated 01/22/2024. Appears resolved (3) Acute exacerbation of chronic obstructive pulmonary disease: Assessment and Plan: Increased air movement, but now has some wheezes. Continue bronchodilators. (4) Cigarette nicotine dependence with nicotine-induced disorder: Assessment and Plan: Discussed smoking cessation again with patient. (5) Oral candidiasis: Assessment and Plan: Secondary to nebulized budesonide, systemic steroids, and antibiotics. Rinse after budesonide (when dentures are out), and Rx nystatin. (6) DM2 (diabetes mellitus, type 2): Assessment and Plan: Monitor FSBS while on steroids. 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 Using BiPAP @ HS here. If she decides she wants to start using it @ home, will need outpatient testing. (8) Hyperchloremia: Assessment and Plan: Resolved. (9) Obesity: Assessment and Plan: Weight loss recommended. Qualifiers: Obesity type: unspecified obesity type Obesity classification: adult class 1 (BMI 30 - 34.9) Serious obesity comorbidity presence: with serious comorbidity Body mass index: BMI 31.0-31.9 Qualified Code(s): E66.9 - Obesity, unspecified; Z68.31 - Body mass index [BMI] 31.0-31.9, adult Subjective Subjective Interval history: Patient is doing better today. More energy, less fatigue, decreased WILCOX. Sitting up in bed at this time. Exam Constitutional Vital Signs, click to edit/add: Last Vital Signs Temp 97.6 F 01/26/24 07:50 Pulse 72 01/26/24 11:48 Resp 18 01/26/24 07:50 BP 133/79 01/26/24 07:50 Pulse Ox 93 L 01/26/24 11:35 O2 Del Method Nasal Cannula 01/26/24 11:35 O2 Flow Rate 1 01/26/24 11:35 FiO2 30 01/26/24 03:55 Documenting provider has reviewed patient's vital signs: yes Common normals: no apparent distress Other: Sitting up on side of bed HENMT Other: Wearing nasal cannula. Developing mild oral candidiasis under upper dentures. Eye Common normals: PERRL (~4mm bilaterally, not sluggish) Chest Common normals: inspection of chest normal Chest: symmetrical chest wall rise Respiratory Other: Improved breath sounds today, resolving wheezes. Cardio Rate: regular rate Rhythm: regular rhythm GI Inspection: normal to inspection and central obesity Extremity Common normals: normal to inspection Neuro Other: Moves extremities Psych Other: Seems even more awake today
[2024-01-26] MEDS: ACETAMINOPHEN 325 MG TABLET 650 MG PO (12:30)
[2024-01-26] MEDS: NYSTATIN 500,000 UNIT/5 ML ORAL.SUSP 500000 UNIT PO ×2 (12:30→18:04)
[2024-01-26] MEDS: PANTOPRAZOLE SODIUM 40 MG VIAL IV (12:32)
--- NOTE | 2024-01-26 13:12 | SWNOTE1 ---
SW sent over updated PT/OT, progress note from yesterday, pulmonology note, labs, vitals, and med list to [facility].
--- NOTE | 2024-01-26 13:59 | SWNOTE1 ---
SW received email from Jacqueline and pt is approved to go to [facility]. SW let nursing and doctor know.
--- NOTE | 2024-01-26 15:15 | SWNOTE1 ---
[facility] can't take pt until this evening. SW notified nursing. Pt initally wants to go by vehicle, but her mother is coming here to discuss transport options and what is safest.
--- NOTE | 2024-01-26 15:56 | SWNOTE1 ---
Pt and mother spoke about transport and if her mom is transporting or if she needs to go by stretcher. It was decided that pt will go by stretcher. SW called [facility] by they don't have avaialabiltiy. S[facility] called [facility] and they will be here at 5:30 to transport. [facility]ADIQ notitied [facility], pt, pt's mother, and nursing. Pt is going to [facility] for rehab.
[2024-01-26 16:05] LABS: Glucometer 113 mg/dL (74-106)
--- NOTE | 2024-01-26 16:14 | PC.NURSE ---
Report called to [facility]. pt to be transferred by squad around 5:30
--- NOTE | 2024-01-26 16:23 | SWNOTE1 ---
2nd notice of IMM reviewed and discussed with pt. No questions or concerns.
--- NOTE | 2024-01-26 18:01 | PM.DS1 ---
DS: Providers Provider Date of admission: 01/18/24 03:55 Primary care physician: Shaikh Anthony MD Consults: 01/18/24 Consult to Dietitian Routine Reason for consultation: poor appetite 01/18/24 11:07 Consult to Pulmonology Routine Consulting Provider: Cyrus Yancey Reason for consultation: Resp failure 01/20/24 06:51 Consult to Dietitian Routine Reason for consultation: Tube feed recommendations - on ventilator 01/23/24 11:26 Occupational Therapy Eval and Treat Routine Reason for consultation: Weakness Physical Therapy Eval and Treat Routine Reason for consultation: Weakness DS: Diagnosis Discharge Diagnosis (1) Sepsis: Qualifiers: Acute respiratory failure type: with hypercapnia Sepsis acute organ dysfunction status: with acute organ dysfunction Sepsis type: sepsis due to unspecified organism Severe sepsis acute organ dysfunction type: acute respiratory failure Severe sepsis shock status: without septic shock Qualified Code(s): A41.9 - Sepsis, unspecified organism; R65.20 - Severe sepsis without septic shock; J96.02 - Acute respiratory failure with hypercapnia (2) E. coli pneumonia: Qualifiers: Laterality: bilateral Lung location: unspecified part of lung Qualified Code(s): J15.5 - Pneumonia due to Escherichia coli (3) Acute respiratory failure with hypercapnia: (4) Acute exacerbation of chronic obstructive pulmonary disease: (5) Cigarette nicotine dependence with nicotine-induced disorder: (6) DM2 (diabetes mellitus, type 2): Qualifiers: Diabetes mellitus complication status: without complication Diabetes mellitus intermediate designer insulin use: unspecified shelter insulin use status Qualified Code(s): E11.9 - Type 2 diabetes mellitus without complications (7) PEPE (obstructive sleep apnea): (8) Bipolar 2 disorder: (9) Hypernatremia: (10) Obesity: Qualifiers: Body mass index: BMI 31.0-31.9 Obesity classification: adult class 1 (BMI 30 - 34.9) Obesity type: unspecified obesity type Serious obesity comorbidity presence: with serious comorbidity Qualified Code(s): E66.9 - Obesity, unspecified; Z68.31 - Body mass index [BMI] 31.0-31.9, adult DS: Summary Hospital Course Hospital Course: Reason for admission: See ER note and H&P for details. 48 y/o female with a history of COPD to ER with SOB and weakness. Symptoms for several days and getting worse. To ER and SpO2 82% on room air. ABG showed pCO2 86 and placed on BiPAP. Chest x-ray with pneumonia and admitted. Hospital course: Started rocephin and zithromax. Hypoxia worsened and changed to zosyn and vanco. Pulmonology consulted. Added steroids and breathing treatments. Breathing continued to deteriorate and discussed intubation. Patient agreeable and intubated. Slowly improved. Sputum culture obtained during intubation showed E coli as source of pneumonia. Slowly improved. Able to wean off vent and extubated 01/21. Stopped vancomycin. Initially very sedated and problems swallowing but slowly improved. More alert and able to swallow. Not confused. Severe weakness and started PT/OT. Using BiPAP at night and nasal canula during day. Severe weakness and PT recommended SNF. Breathing improved and down to 2 LPM. Information sent to insurance for SNF. Received approval for SNF and transferred in stable condition. Will take prednisone tapered over 12 days. Take augmentin x 10 days. Continue home medication as directed. Time Spent with Patient Time attestation: Total time spent providing and/or coordinating discharge services: Time spent: greater than 30 minutes Exam Constitutional Vital Signs, click to edit/add: Last Vital Signs Temp 98.2 F 01/26/24 15:16 Pulse 68 01/26/24 15:54 Resp 20 01/26/24 15:16 BP 133/79 01/26/24 07:50 Pulse Ox 94 L 01/26/24 16:01 O2 Del Method Nasal Cannula 01/26/24 16:01 O2 Flow Rate 1 01/26/24 16:01 FiO2 30 01/26/24 03:55 Documenting provider has reviewed patient's vital signs: yes Common normals: no apparent distress, oriented x3 and alert HENMT Common normals: normocephalic Eye Common normals: PERRL and EOMs intact bilaterally Respiratory Common normals: normal respiratory effort and clear to auscultation bilaterally Cardio Common normals: regular rate, regular rhythm, no gallops, no murmurs and no rub GI Common normals: Normal to inspection, nondistended, normoactive bowel sounds present and non-tender Extremity Common normals: no pedal edema DS: Data Data Completed and Pending Labs on day of discharge: Labs from last 24 hours 01/26/24 01/26/2401/25/24 16:05 11:26 04:56 WBC 12.1 H RBC 3.92 L Hgb 12.5 Hct 38.7 MCV 98.7 MCH 31.9 MCHC 32.3 RDW 14.1 Plt Count 181 MPV 9.9 Neut % (Auto) 94.7 H Lymph % (Auto) 2.6 L [place] % (Auto) 1.7 Eos % (Auto) 0.0 L Baso % (Auto) 0.1 L Neut # (Auto) 11.5 H Lymph # (Auto) 0.3 L [place] # (Auto) 0.2 L Eos # (Auto) 0.0 Baso # (Auto) 0.0 Abs Immat Gran (auto) 0.11 H Imm/Tot Granulo (auto) 0.9 H Sodium 138 Potassium 4.2 Chloride 104 Carbon Dioxide 30.4 Anion Gap 7.8 BUN 11.0 Creatinine 0.56 Est GFR ( Amer) >60 Est GFR (Non-Af Amer) >60 BUN/Creatinine Ratio 19.6 Glucose 352 H Calcium 8.0 L POC Glucose 113 H 323 H 01/25/24 20:45 WBC RBC Hgb Hct MCV MCH MCHC RDW Plt Count MPV Neut % (Auto) Lymph % (Auto) [place] % (Auto) Eos % (Auto) Baso % (Auto) Neut # (Auto) Lymph # (Auto) [place] # (Auto) Eos # (Auto) Baso # (Auto) Abs Immat Gran (auto) Imm/Tot Granulo (auto) Sodium Potassium Chloride Carbon Dioxide Anion Gap BUN Creatinine Est GFR ( Amer) Est GFR (Non-Af Amer) BUN/Creatinine Ratio Glucose Calcium POC Glucose 243 H Preliminary micro results at discharge 01/19/24 13:24 - Preliminary Tracheal Aspirate Discharge Plan Discharge Disposition: Xfer SNF Condition: Fair Discharge Medications: New prednisone 10 mg tablets,dose pack 10 mg PO DAILY Qty: 39 0RF Rx Instructions: 6 PO daily x 3 days, then 4 PO daily x 3 days, then 2 PO daily x 3 days, then 1 PO daily x 3 days albuterol sulfate 90 mcg/actuation HFA aerosol inhaler 2 inh inhalation Q4H PRN (Reason: shortness of breath or wheezing) Qty: 8.5 0RF amoxicillin-pot clavulanate 875-125 mg tablet 1 tab PO Q12H 10 Days Qty: 20 0RF Continued atorvastatin 40 mg tablet 40 mg PO DAILY Breztri Aerosphere 160-9-4.8 mcg/actuation HFA aerosol inhaler 1 inh INHALATION BID dapagliflozin propanediol [Farxiga] 10 mg tablet 10 mg PO DAILY escitalopram oxalate 20 mg tablet 20 mg PO DAILY gabapentin 800 mg tablet 800 mg PO TID ibuprofen 800 mg tablet 800 mg PO TID PRN (Reason: pain) insulin aspart U-100 [Novolog FlexPen U-100 Insulin] 100 unit/mL (3 mL) insulin pen 10 unit SUBCUT TIDWM Patient Comments: with sliding scale, max 50 units daily omeprazole 40 mg capsule,delayed release(DR/EC) 40 mg PO DAILY risperidone 1 mg tablet 1 mg PO BID Janumet XR 100-1,000 mg tablet, ER multiphase 24 hr 1 tab PO BEDTIME tizanidine 4 mg tablet 4 mg PO TID PRN (Reason: muscle spasticity) roflumilast 250 mcg tablet 250 mcg PO DAILY insulin glargine [Basaglar KwikPen U-100 Insulin] 100 unit/mL (3 mL) insulin pen 30 unit SUBCUT QAM lorazepam [Ativan] 1 mg tablet 1 mg PO Q8H PRN (Reason: anxiety) 5 Days Qty: 15 0RF Print Language: Bhutanese 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 Forms: Portal Instructions
== END 2024-01-26 18:40 | DRG 871 ==
LOC: ER 03:24 → ICU 06:38 → MS 01-23 20:30
PROVIDERS: Internal Medicine; Nurse Practitioner Acute Care; Admitting Provider Internal Medicine; Emergency Provider Emergency Medicine; PCP Internal Medicine; Visit Provider Family Medicine
DX: A41.51 Sepsis due to Escherichia coli [E. coli] (principal); J18.9 Pneumonia, unspecified organism; J96.02 Acute respiratory failure with hypercapnia; J44.0 Chronic obstructive pulmonary disease with (acute) lower respiratory infection; J44.1 Chronic obstructive pulmonary disease with (acute) exacerbation; F31.81 Bipolar II disorder; E87.0 Hyperosmolality and hypernatremia; B37.0 Candidal stomatitis; Y95 Nosocomial condition; F41.1 Generalized anxiety disorder; R65.20 Severe sepsis without septic shock; F17.210 Nicotine dependence, cigarettes, uncomplicated; E87.8 Other disorders of electrolyte and fluid balance, not elsewhere classified; G47.33 Obstructive sleep apnea (adult) (pediatric); E66.9 Obesity, unspecified; Z68.31 Body mass index [BMI] 31.0-31.9, adult; E11.9 Type 2 diabetes mellitus without complications; E78.5 Hyperlipidemia, unspecified; Z79.4 Long term (current) use of insulin; Z79.899 Other long term (current) drug therapy; I10 Essential (primary) hypertension; L89.159 Pressure ulcer of sacral region, unspecified stage; R53.1 Weakness; Z91.199 Patient's noncompliance with other medical treatment and regimen due to unspecified reason; T38.0X5A Adverse effect of glucocorticoids and synthetic analogues, initial encounter; T36.95XA Adverse effect of unspecified systemic antibiotic, initial encounter; T44.5X5A Adverse effect of predominantly beta-adrenoreceptor agonists, initial encounter
CPT/HCPCS: 0202U; 31500; 36415; 36569; 36592; 36600; 51702; 70450; 71045; 71250; 80048; 80053; 80202; 81001; 82805; 82948; 83605; 83735; 83880; 84145; 84484; 85007; 85025; 85027; 87040; 87045; 87046; 87070; 87086; 87106; 87116; 87150; 87186; 87205; 87206; 87427; 87804; 87811; 89220; 93005; 94002; 94003; 94640; 94660; 94667; 94668; 94761; 94799; 96365; 96366; 96367; 96368; 96372; 96375; 96376; 97110; 97161; 97165; 97530; 97535; 99285; C1887; J0456; J2919; J3370

== ENCOUNTER 2024-03-06 14:44 | Emergency (ER) | payer MEDICARE, SELFPAY ==
[2024-03-06 14:45] VITALS: BP 100/61; PULSE 56; O2SAT 95; BMI 35.5
--- NOTE | 2024-03-06 14:49 | ECG_ITS ---
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
--- NOTE | 2024-03-06 14:50 | CT_ITS ---
The [address] [address] Patient Name: DIAN RAY MRN: [id number] date: 1975 Sex: F Assigned Patient Location: ER Current Patient Location: ER Accession/Order Number: [id number] Exam Date: 03/06/2024 15:10 Report Date: 03/06/2024 15:59 At the request of: JODI SINGH Procedure: CT head/brain wo con EXAM: CT head/brain wo con HISTORY: confusion COMPARISON: CT brain 01/21/2024. TECHNIQUE: Axial CT scans through the head were obtained without IV contrast administration. Dose reduction techniques were achieved by using: automated exposure control and/or adjustment of mA and /or kV according to patient size and/or use of iterative reconstruction technique. FINDINGS: There is no acute intracranial hemorrhage or abnormal extra-axial fluid collection. No mass effect or midline shift is seen. There is no evidence of large acute territorial infarction. There is no hydrocephalus. To the limit of CT, the posterior fossa appears unremarkable. The calvaria and extra cranial soft tissues are unremarkable. The visualized orbits show no abnormality. The visualized paranasal sinuses show no air-fluid level. Mastoid air cells are clear. CT/CT head/brain wo con IMPRESSION: No acute intracranial process. Electronically authenticated by: GABE LEONE Date: 03/06/2024 15:59
--- NOTE | 2024-03-06 14:52 | XR_ITS ---
The [address] [address] Patient Name: DIAN RAY MRN: [id number] date: 1975 Sex: F Assigned Patient Location: ER Current Patient Location: ER Accession/Order Number: [id number] Exam Date: 03/06/2024 15:04 Report Date: 03/06/2024 15:32 At the request of: JODI SINGH Procedure: XR chest 2V EXAMINATION: XR chest 2V HISTORY: confusion COMPARISON: 10/08/2023 TECHNIQUE: AP and lateral FINDINGS: LUNGS: No significant pulmonary parenchymal abnormalities. VASCULATURE: No increased pulmonary vasculature. PLEURA: No pneumothorax, effusion, or pleural thickening. CARDIAC: No cardiomegaly or cardiac silhouette abnormality. MEDIASTINUM: No visible mass or adenopathy. BONES: No fracture or visible bone lesion. OTHER: Negative. XR/XR chest 2V IMPRESSION: No acute disease. Electronically authenticated by: SHAJI LIMON Date: 03/06/2024 15:32
--- NOTE | 2024-03-06 14:54 | ED.GENADUL1 ---
HPI HPI - General Adult General Chief complaint: Altered Mental Status Stated complaint: ABNORMAL LABS Time Seen by Provider: 03/06/24 14:49 Source: patient and other Source information: EMS Mode of arrival: ambulance Limitations: altered mental status History of Present Illness HPI narrative: Patient is a 49-year-old female who is presenting to the ER today with chief complaint of intermittent episodes of unresponsiveness. Patient daughter was at home with the patient, called 911. It was thought that patient blood sugar may be low, patient blood sugar was in the 400s when EMS arrived. EMS noted that patient was jogging several months because patient thought her blood sugar was low. Patient states that when she takes Zanaflex, her blood sugar was low secondary to Zanaflex. Patient did not overdose on any other medication that we are aware of. She currently is responding appropriately, GCS of 15. Patient has no headache or neck pain. No chest pain or shortness of breath. No abdominal pain nausea or vomiting. Patient again tell me that when she takes Zanaflex her blood sugar seems to drop, patient was reminded that her blood sugar is high today. Patient arrived by EMS. No trauma, no falls. Patient was sitting in a chair when EMS arrived. All systems are negative except as noted/marked. All systems reviewed and otherwise negative. Nurses note and vital signs reviewed and patient is not hypoxic. General: The patient appears well and in no apparent distress. Patient is resting comfortably on cart. Patient is not toxic, lethargic, or listless Skin: Warm, dry, no pallor noted. There is no rash noted. No petechiae, purpura. Head: Normocephalic, atraumatic Eye: Normal conjunctiva, no drainage, EOMI. PERRL; pupils are 4/2, equal, bilateral. Ears, Nose, Mouth, and Throat: oral mucosa is moist. Nares patent. Mouth without vesicles. Cardiovascular: Regular Rate and Rhythm, no murmur, gallop, rub Respiratory: Patient is in no distress, no accessory muscle use, lungs are clear to auscultation, no wheezing, rales or rhonchi Back: Chronic diffuse tenderness to palpation to bilateral lower thoracic and paralumbar area, no step-offs, rashes, signs of abscess or skin changes, no CVA tenderness bilaterally to percussion. No CT LS midline pain GI: Obese, no tenderness to palpation, no masses appreciated. No rebound, guarding, or rigidity noted. No distention Musculoskeletal: Patient has full range of motion of all of the extremities, no motor, sensory, or focal neurological deficits Neurological: A&O x4, normal speech Psychiatric: Cooperative, slightly somnolent, but GCS of 15, answering questions appropriately, does not smell of alcohol Related Data Home Medications ?Medication ?Instructions ?Recorded ?Confirmed atorvastatin 40 mg tablet 40 mg PO DAILY 03/07/23 03/06/24 budesonide 160 mcg-glycopyr 9 1 inh inhalation BID 03/07/23 03/06/24 mcg-formot 4.8 mcg/actuation HFA inhaler (Breztri Zipzoomphere) dapagliflozin propanediol 10 mg 10 mg PO DAILY 03/07/23 03/06/24 tablet (Farxiga) gabapentin 800 mg tablet 800 mg PO TID 03/07/23 03/06/24 ibuprofen 800 mg tablet 800 mg PO TID PRN pain 03/07/23 03/06/24 insulin aspart U-100 100 unit/mL 10 unit subcut TIDWM 03/07/23 03/06/24 (3 mL) subcutaneous pen (Novolog FlexPen U-100 Insulin aspart) omeprazole 40 mg capsule,delayed 40 mg PO DAILY 03/07/23 03/06/24 release risperidone 1 mg tablet 1 mg PO BID 03/07/23 03/06/24 tizanidine 4 mg tablet 4 mg PO TID PRN muscle spasticity 03/07/23 03/06/24 insulin glargine 100 unit/mL (3 30 unit subcut QAM 01/18/24 03/06/24 mL) subcutaneous pen (Basaglar KwikPen U-100 Insulin) roflumilast 250 mcg tablet 250 mcg PO DAILY 01/18/24 03/06/24 Previous Rx's ?Medication ?Instructions ?Recorded albuterol sulfate 90 mcg/actuation 2 inh inhalation Q4H PRN shortness 01/25/24 aerosol inhaler of breath or wheezing #8.5 grams lorazepam 1 mg tablet (Ativan) 1 mg PO Q8H PRN anxiety 5 days #15 01/25/24 tabs Allergies Allergy/AdvReac Type Severity Reaction Status Date / Time sumatriptan [From Imitrex] Allergy Severe Hives Verified 03/06/24 14:49 Opioid HPI Opioid Management Most Recent Opioid Data: Last Pain Scale 3 01/26/24 13:46 PFSH PFS Medical History (Updated 03/06/24 @ 16:58 by Giovanny Leon MD) Obesity ?E66.9 - Obesity, unspecified (ICD-10) PEPE (obstructive sleep apnea) ?G47.33 - Obstructive sleep apnea (adult) (pediatric) (ICD-10) DM2 (diabetes mellitus, type 2) ?E11.9 - Type 2 diabetes mellitus without complications (ICD-10) Cigarette nicotine dependence with nicotine-induced disorder ?F17.219 - Nicotine dependence, cigarettes, with unspecified nicotine-induced disorders (ICD-10) Bipolar 2 disorder ?F31.81 - Bipolar II disorder (ICD-10) Acute respiratory failure with hypercapnia ?J96.02 - Acute respiratory failure with hypercapnia (ICD-10) Oral candidiasis ?B37.0 - Candidal stomatitis (ICD-10) SALVADOR (generalized anxiety disorder) ?F41.1 - Generalized anxiety disorder (ICD-10) Hyperchloremia ?E87.8 - Other disorders of electrolyte and fluid balance, not elsewhere classified (ICD-10) Hospital-acquired pneumonia ?J18.9 - Pneumonia, unspecified organism (ICD-10) ?Y95 - Nosocomial condition (ICD-10) Community acquired pneumonia ?J18.9 - Pneumonia, unspecified organism (ICD-10) Acute exacerbation of chronic obstructive pulmonary disease (COPD) ?J44.1 - Chronic obstructive pulmonary disease with (acute) exacerbation (ICD-10) COPD exacerbation ?J44.1 - Chronic obstructive pulmonary disease with (acute) exacerbation (ICD-10) Cavitary pneumonia ?J18.9 - Pneumonia, unspecified organism (ICD-10) ?J98.4 - Other disorders of lung (ICD-10) Acute viral syndrome ?B34.9 - Viral infection, unspecified (ICD-10) Acute chest wall pain ?R07.89 - Other chest pain (ICD-10) Enterovirus infection ?B34.1 - Enterovirus infection, unspecified (ICD-10) Tobacco abuse counseling ?Z71.6 - Tobacco abuse counseling (ICD-10) Contusion of left knee ?S80.02XA - Contusion of left knee, initial encounter (ICD-10) Acute hypokalemia ?E87.6 - Hypokalemia (ICD-10) Vasovagal syncope ?R55 - Syncope and collapse (ICD-10) Acute and chronic respiratory failure with hypercapnia ?J96.22 - Acute and chronic respiratory failure with hypercapnia (ICD-10) Respiratory failure ?J96.90 - Respiratory failure, unspecified, unspecified whether with hypoxia or hypercapnia (ICD-10) Smoker ?F17.200 - Nicotine dependence, unspecified, uncomplicated (ICD-10) HLD (hyperlipidemia) ?E78.5 - Hyperlipidemia, unspecified (ICD-10) HTN (hypertension) ?I10 - Essential (primary) hypertension (ICD-10) Social History Smoking status: Current every day smoker Exam Constitutional Vital Signs, click to edit/add: Last Vital Signs Pulse 56 L 03/06/24 14:45 Resp 16 03/06/24 14:45 BP 100/61 03/06/24 14:45 Pulse Ox 95 03/06/24 14:45 O2 Del Method Room Air 03/06/24 14:45 Course Vital Signs Vital signs: Vital Signs Pulse Rate 56 L 03/06/24 14:45 Respiratory Rate 16 03/06/24 14:45 Blood Pressure 100/61 03/06/24 14:45 Pulse Oximetry 95 03/06/24 14:45 Oxygen Delivery Method Room Air 03/06/24 14:45 Pulse Rate 56 L 03/06/24 14:45 Respiratory Rate 16 03/06/24 14:45 Blood Pressure 100/61 03/06/24 14:45 Pulse Oximetry 95 03/06/24 14:45 Oxygen Delivery Method Room Air 03/06/24 14:45 Medical Decision Making [facility] Narrative Medical decision making narrative: Patient CT of the brain, chest x-rays show no acute findings. EKG and lab work showed no significant findings. Patient potassium level was slightly low, she had oral potassium for replacement. Patient admitted to me at discharge that she took a extra Zanaflex today than she normally should have. Patient was educated on taking her medication the correct way. Just prior to discharge Katie, patient's mother called me. I have permission from the patient to talk to her mother. Mother is concerned that she is taking too much Ativan and Zanaflex at home. Mother states that she wants to sleep through most of the day secondary to pain. Patient does have a psychiatrist. Patient has a PCP, Dr. Mora. Patient did not tell me today that she was trying to sleep and never wake up, she is not suicidal homicidal. Patient has been pleasant to speak to. Patient says that by taking her Zanaflex it typically causes her to be hypoglycemic. Patient was hyperglycemic at home with a blood sugar in the 400s by EMS. Patient mother was educated on calling the PCP and a psychiatrist to make them aware the patient is not following directions on her medications and sometimes taking too much either accidentally or intentionally at home. Patient may have major depression. Mother is to follow-up with psychiatrist and PCP along with patient to see additional social concerns at home where patient lives at home with her mother, mother states they cannot watch her 24 hours a day because they have to work with patient's daughter and mother. 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 Patient has a functional decision-making capacity to go home, she is not under the influence of alcohol or drugs, she is making appropriate decisions in the ER at this time. Lab Data Labs: Lab Results 03/06/24 03/06/24 Range/Units 14:48 14:58 WBC 9.5 (4.0-11.0) 10^3/uL RBC 3.61 L (4.20-5.40) 10^6/uL Hgb 11.5 L (12.0-16.0) g/dL Hct 35.7 L (36.0-48.0) % MCV 98.9 (81.0-99.0) fL MCH 31.9 (26.7-34.0) pg MCHC 32.2 (29.9-35.2) g/dL RDW 13.5 (11.0-15.0) % Plt Count 313 (150-450) 10^3/uL MPV 9.0 L (9.5-13.5) fL Neut % (Auto) 74.5 (43.0-75.0) % Lymph % (Auto) 16.9 L (20.5-60.0) % [place] % (Auto) 7.2 (1.7-12.0) % Eos % (Auto) 0.2 L (0.9-7.0) % Baso % (Auto) 0.6 (0.2-2.0) % Neut # (Auto) 7.1 H (1.4-6.5) 10^3/uL Lymph # (Auto) 1.6 (1.2-3.8) 10^3/uL [place] # (Auto) 0.7 (0.3-0.8) 10^3/uL Eos # (Auto) 0.0 (0.0-0.7) 10^3/uL Baso # (Auto) 0.1 (0.0-0.1) 10^3/uL Abs Immat Gran (auto) 0.06 H (0.00-0.03) 10^3/uL Imm/Tot Granulo (auto) 0.6 H (0.0-0.5) % VBG pH 7.332 (7.330-7.430) VBG pCO2 46.5 (40.0-52.0) mmHg Sodium 140 (136-145) mmol/L Potassium 3.4 L (3.5-5.1) mmol/L Chloride 108 H (98-107) mmol/L Carbon Dioxide 24.6 (21.0-32.0) mmol/L Anion Gap 10.8 BUN 5.0 L (7.0-18.0) mg/dL Creatinine 0.89 (0.55-1.02) mg/dL Est GFR ( Amer) >60 (>=60) Est GFR (Non-Af Amer) >60 (>=60) BUN/Creatinine Ratio 5.6 Glucose 145 H (74-106) mg/dL Calcium 8.0 L (8.5-10.1) mg/dL Magnesium 1.3 L (1.8-2.4) mg/dL Total Bilirubin 0.2 (0.2-1.0) mg/dL AST 13 L (15-37) U/L ALT 15 (14-59) U/L Alkaline Phosphatase 67 (46-116) U/L Total Creatine Kinase 20 L (26-192) U/L Troponin I High Sens 6.7 (4.0-51.3) pg/mL Total Protein 4.6 L (6.4-8.2) g/dL Albumin 1.8 L (3.4-5.0) g/dL Globulin 2.8 g/dL Albumin/Globulin Ratio 0.6 Lipase <10.0 L (16.0-77.0) U/L POC Glucose 148 H (74-106) mg/dL ECG Data Attestation: I personally reviewed and interpreted this ECG as follows: (EKG interpretation. Normal sinus rhythm at 55 beats a minute. Normal axis deviation. No acute ST elevation, no acute ectopy. QTc of 439.) Discharge Plan Discharge Stand Alone Forms: Portal Instructions Chief Complaint: Altered Mental Status Clinical Impression: Unresponsive, Hypokalemia, Hyperglycemia Patient Disposition: Home, Self-Care Time of Disposition Decision: 16:56 Condition: Fair Mode of Transportation: Private Vehicle Prescriptions / Home Meds: No Action atorvastatin 40 mg tablet 40 mg PO DAILY Breztri Aerosphere 160-9-4.8 mcg/actuation HFA aerosol inhaler 1 inh INHALATION BID dapagliflozin propanediol [Farxiga] 10 mg tablet 10 mg PO DAILY gabapentin 800 mg tablet 800 mg PO TID ibuprofen 800 mg tablet 800 mg PO TID PRN (Reason: pain) insulin aspart U-100 [Novolog FlexPen U-100 Insulin] 100 unit/mL (3 mL) insulin pen 10 unit SUBCUT TIDWM Patient Comments: with sliding scale, max 50 units daily omeprazole 40 mg capsule,delayed release(DR/EC) 40 mg PO DAILY risperidone 1 mg tablet 1 mg PO BID tizanidine 4 mg tablet 4 mg PO TID PRN (Reason: muscle spasticity) roflumilast 250 mcg tablet 250 mcg PO DAILY insulin glargine [Basaglar KwikPen U-100 Insulin] 100 unit/mL (3 mL) insulin pen 30 unit SUBCUT QAM albuterol sulfate 90 mcg/actuation HFA aerosol inhaler 2 inh inhalation Q4H PRN (Reason: shortness of breath or wheezing) Qty: 8.5 0RF lorazepam [Ativan] 1 mg tablet 1 mg PO Q8H PRN (Reason: anxiety) 5 Days Qty: 15 0RF Print Language: Danish Instructions: Hypokalemia (ED), Altered Mental Status (ED), Diabetic Hyperglycemia (ED) Additional Instructions: Increase fluids at home, continue taking medication as prescribed. Follow-up with PCP It is concerning that you are taking extra medication than prescribed, follow-up with your psychiatrist and PCP. Referrals: Shaikh Cruz MD [Primary Care Provider] - 1 week Discharge Date/Time: 03/06/24 17:30
[2024-03-06 14:56] LABS: Glucometer 148 mg/dL (74-106)
--- OUTSIDE RECORDS SUMMARY | 2024-03-06 14:56 | XMS_ITS | CCD ---
Author Organization [facility] Care Team Providers Care Credit Card Control Clerk Name Role Phone Walker Alba Attending Provider [phone] Audi Hdez Primary Care Provider PROVIDER, UNKNOWN [...] Primary Care Unavailable SANTIAGO, KERRI Admitting Unavailable ZIEBSKY, DR GERMAINE Adams Consulting Unavailable SANTIAGO, KERRI Attending Unavailable SANTIAGO, KERRI Consulting Unavailable [...] Unavailable PAY ., DR ZAPATA Attending Unavailable MONCURE, DR SHAJI Osborn Consulting Unavailable PAY ., DR ZAPATA Admitting Unavailable PAY ., DR ZAPATA Consulting Unavailable SAVITA .CHRISTIANE Consulting Unavailable FAWWAD, STEPHENS H Primary Care Unavailable JENNY, DR YASMIN Cortes Attending Unavailsanthosh ALVARADO, DR YASMIN Cortes Consulting Unavailsanthosh ALVARADO, DR YASMIN Cortes Admitting Unavailsanthosh e BUD, DR GERMAINE Adams Consulting Unavailable Alberto, Katie Unavailable Errol Nicole Unavailable MD Joyce Cruz Primary Care Provider DO Lavell Salazar Emergency Provider [phone] MD Eron Wood Admit Provider MD Errol Nicole Other Provider MD Valeriano Horta Other Provider DO Krunal Kelly Attending Provider [phone] MD Valerinao Horta Attending Provider Courtney Valladares Unavailable MD Anthony [facility] Primary Care Provider MD Valeriano Horta Attending Provider FAVIO Villeda Emergency Provider MD Anthony [facility] Primary Care Provider [phone] MD Yasmin Leung Emergency Provider SHANTI Marcum Emergency Provider MD Errol Nicole Attending Provider Bambi Delgado Unavailable Anthony MASTERS, [facility] Primary Care Provider Anthony MASTERS, [facility] Primary Care Provider [phone] MARVIN SHERWOOD Attending Unavailable PAVNIGHAT, AUDI L Referring Unavailable PAVLOCK, MAX L Primary Care Unavailable Marilee Marcum Admitting Unavailable Marilee Marcum Attending Unavailable [facility] Primary Care Unavailable Chaban, Kamal Admitting Unavailable Patel Nicoleal Attending [facility] Unavailable Valeriano Horta Admitting Unavailable Valeriano Horta Attending Unavailable [facility] Primary Care Unavailable Krunal Kelly Attending Unavailabl e Eron Wood Admitting Unavailable Chaban, Kamal Consulting Unavailable [facility] Primary Care Unavailable Valeriano Horta Consulting [facility] Unavailable Elio Villeda Admitting Unavailable [...] Agonists (4 sources) SUMAtriptan Drug Allergy 1 Hives [facility] (1 source) Plasmin Drug Allergy 6 [facility] Repository (16 sources) SUMAtriptan Drug Allergy 3 shortness of breath, Anxiety [facility] (1 source) SUMAtriptan; Translations: [SUMATRIPTAN SUCCINATE] Drug Allergy 0 [facility] Repository (1 source) SUMAtriptan Drug Allergy 4 [facility] Repository Medications Current Medications Medication Drug Class(es) Dates Sig (Normalized) Sig (Original) [id number] 200 actuat albuterol 0.09 mg/actuat metered dose [...] Twice a day Active Continuous Blood Gluc Cosmetic Sales Assistant (FreeStyle Magali 14 Day [place]) device (4 sources) Continuous Blood Gluc Cosmetic Sales Assistant (FreeStyle Magali 14 Day [place]) device 4 (four) times a day as [...] 1.5 mg/ml oral solution (4 sources) Uncompetitive X-pancxy-G-aspartate Receptor Antagonist, Sigma-1 Agonist Start: 2022 take 10 mL by mouth every eight hours Dickens DM 7.5-7.5 MG/5ML 10 mL Orally every [...] polyneuropathy, with long-term current use of insulin ([facility]) TAKE 1 TABLET BY MOUTH THREE TIMES [...] 2023 5:04pm take 1 capsule by mo [facility] every eight hours Gabapentin 300 MG 1 [...] polyneuropathy, with long-term current use of insulin ([facility]) Inject 20 Units under the skin in [...] tablet Orally Once a day Active nystatin 822134 unt/ml oral suspension (2 sources) Polyene Antifungal Start : 09-29 End: 10-09 nystatin (Mycostatin) 011801 UNIT/ML suspension Indications: Thrush Take 5 mL [...] 2.5 ug by inhalation twice daily Tiotropium [place] (Spiriva Respimat) 2.5 mcg/actuation mist Discontinued 1 [...] (primary) hypertension; Translations: [Hypertensive disorder] Onset: 09-15-2022 4 Chronic Fluid and electrolyte disorders (6 sources) [...] stomatitis] 09-29-2023 Episodic Other aftercare (1 source) [facility] (current) use of insulin; 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 INSULIN] Onset: 09-15-2022 Episodic Other aftercare (1 source) Other residential (current) drug therapy; Translations: [OTH FOOD SAFETY TECHNICIAN CURRENT DRUG THERAPY] Onset: 09-15-2022 Episodic Other [...] wo conon 08-30-2023 CT chest wo con [facility] [place] [address] [place] [address] CT Scan Report Signed Patient: Christiane Perez MR#: [id number] 2 : 1975 Acct:[id number] Age/Sex: 48 / F ADM Date: 08/30/23 Loc: CT Room: Type: [facility] Attending Dr: Errol Nicole MD Copies [...] Johnson Jr., D.O.08/30/2023 3:21 PM Dictation Location: [place] [address] Transcribed By: [facility] 08/30/23 1521 Dictated By: Rodger Johnson Jr, DO 08/30/23 1517 Signed By: 08/30/23 1521 Normal [facility] Activated partial thrombopla stin time (aPTT) in platelet poor plasma by coagulation aOrdered By: Marilee Marcum on 08-06-2023 aPTT Coag (PPP) [Time] 32.3 s 25.1-36.5 [facility] Comment on above: A hematocrit value g reater than 55% may lead to inaccurate results in coagulation testing. Patients having hematocrit values >55% require a special collection tube for coagulation studies. Please contact the laboratory at [phone] for redraw instructions. B-Type Natriuretic Peptideon 08-06-2023 Natriuretic peptide B (Bld) [Mass/Vol] 29.0 pg/mL Normal 5-100 [facility] Comment on above: Result Comment: PERF ORMED BY: [place] [address] PATHOLOGIST DUMPER [employer]ULK SYSTEM WAYNE WAKEFIELD M.D. Performed By: #### V ANCT #### [facility] [address] [place] [address] Basic Metabolic Panelon 07-17 Anion gap [Moles/Vol] 9.8 mmol/L Normal 6.0-15.0 [facility] Comment on above: Performed By: #### V ANCT #### [facility] [address] [place] [address] [place] Calcium [Mass/Vol] 8.6 mg/dL Normal 8.6-10.3 [facility] Comment on above: Performed By: #### V ANCT #### [facility] [address] [place] [address] [place] Chloride [Moles/Vol] 106 mmol/L Normal 98-107 [facility] Comment on above: Performed By: #### V ANCT #### [facility] [address] [place] [address] [place] CO2 [Moles/Vol] 24.9 mmol/L Normal 21.0-31.0 [facility] Comment on above: Performed By: #### V ANCT #### [facility] [address] Creatinine [Mass/Vol] 0.72 mg/dL Normal 0.60-1.20 [facility] Comment on above: Performed By: #### V ANCT #### [facility] [address] [place] [address] [place] Creatinine Clr Calc Pharmacy 116.58 [facility] Comment on above: Result Comment: PERF ORMED BY: [place] [address] PATHOLOGIST [employer] WAYNE WAKEFIELD M.D. Performed By: #### V ANCT #### [place] [address] [place] GFR/1.73 sq M.predicted MDRD (S/P/Bld) [Vol rate/Area] mL/min/{1.73_m2} [facility] Comment on above: Performed By: #### V ANCT #### [place] [address] [place] Glucose [Mass/Vol] 99 mg/dL Normal 70-100 [facility] Comment on above: Result Comment: [place] Glucose Reference Range is dependent on time and content of last meal. Glucose of more than 200 mg/dL in a nonstressed, ambulatory subject supports the diagnosis of Diabetes Mellitus. ADA recommended reference range Performed By: #### V ANCT #### [facility] [address] [place] [address] [place] Potassium [Moles/Vol] 3.7 mmol/L Normal 3.5-5.1 [facility] Comment on above: Performed By: #### V ANCT #### [place] [address] [place] Sodium [Moles/Vol] 137 mmol/L Normal 136-145 [facility] Comment on above: Performed By: #### V ANCT #### [facility] [address] Urea nitrogen [Mass/Vol] 8 mg/dL Normal 7-25 [facility] Comment on above: Performed By: #### V ANCT #### [facility] [address] Basophils Auto (Bld) [#/Vol] Ordered By: Marilee Marcum on 08-06-2023 Basophils (Bld) [#/Vol] 0.1 10*3/uL 0.0-0.2 [facility] Basophils/100 WBC Auto (Bld) Ordered By: Marilee Marcum on 08-06-2023 Basophils/100 WBC (Bld) 0.5 % . [facility] COVID CepheidOrdered By: Marielos Marcum on 08-06-2023 SARS-CoV-2 (COVID-19) Ab IA Ql Negative Negative [facility] Comment on above: This is a duplicate Cepheid Xpert Xpress CoV-2/Flu/RSV Plus RNA by RT-PCR result to be used for statistical tracking purpose only. SARS-CoV-2 (COVID-19) RNA SOILA+probe Ql (Unsp spec) [facility] COVID-19 / Flu A/B / RSV PCR [...] or Cepheid Disclaimer revoked sooner. PERFORMED BY: [place] [address] PATHOLOGIST [employer] WAYNE WAKEFIELD M.D. [facility] Comment on above: Performed By: #### V ANCT #### [address] Calcium [Mass/volume] in Ser um or PlasmaOrdered By: Marilee Marcum on 08-06-2023 Calcium [Mass/Vol] 8.6 mg/dL 8.6-10.3 [facility] Carbon dioxide, total [Moles /volume] in Serum or PlasmaOrdered By: Marilee Marcum on 08-06-2023 CO2 [Moles/Vol] 24.9 mmol/L 21.0-31.0 [facility] Cepheid COVID PCR Negativeon 08-06-2023 SARS-CoV-2 (COVID-19) RNA SOILA+probe Ql (Unsp spec) Negative Normal Negative [facility] Comment on above: Result Comment: This is a duplicate CepEventSneakerid Xpert Xpress CoV-2/Flu/RSV Plus RNA by RT-PCR result to be used for statistical tracking purpose only. PERFORMED BY: [place] [address] PATHOLOGIST [employer] WAYNE WAKEFIELD M.D. Performed By: #### V ANCT #### [place] [address] [place] Chloride [Moles/volume] in S kaitlin or PlasmaOrdered By: Marilee Marcum on 08-06-2023 Chloride [Moles/Vol] 106 mmol/L 98-107 [facility] Complete Blood Count Auto Di ffon 08-06-2023 Basophils (Bld) [#/Vol] 0.1 10*3/uL Normal 0.0-0.2 [facility] Comment on above: Result Comment: PERF ORMED BY: [place] [address] PATHOLOGIST [employer] WAYNE WAKEFIELD M.D. Performed By: #### V ANCT #### [place] [address] [place] Basophils/100 WBC (Bld) 0.5 % Normal . [facility] Comment on above: Performed By: #### V ANCT #### [place] [address] [place] Eosinophils (Bld) [#/Vol] 0.1 10*3/uL Normal 0.0-0.45 [facility] Comment on above: Performed By: #### V ANCT #### [place] [address] [place] Eosinophils/100 WBC (Bld) 1.0 % Normal . [facility] Comment on above: Performed By: #### V ANCT #### [address] Erythrocyte distribution width (RBC) [Ratio] 16.7 % High 11.9-15.3 [facility] Comment on above: Performed By: #### V ANCT #### [facility] [address] Hematocrit (Bld) [Volume fraction] 45.8 % Normal 34.0-46.4 [facility] Comment on above: Performed By: #### V ANCT #### [address] Hemoglobin (Bld) [Mass/Vol] 15.4 g/dL Normal 11.8-15.4 [facility] Comment on above: Performed By: #### V ANCT #### [address] Lymphocytes (Bld) [#/Vol] 1.4 10*3/uL Normal 1.00-4.8 [facility] Comment on above: Performed By: #### V ANCT #### [address] Lymphocytes/100 WBC (Bld) 12.5 % Normal . [facility] Comment on above: Performed By: #### V ANCT #### [place] [address] [place] MCH (RBC) [Entitic mass] 32.9 pg Normal 24.7-34.3 [facility] Comment on above: Performed By: #### V ANCT #### [address] MCV (RBC) [Entitic vol] 97.6 fL Normal 80-100 [facility] Comment on above: Performed By: #### V ANCT #### [address] Mean Corpuscular HGB Conc 33.7 g/dL Normal 32.0-35.0 [facility] Comment on above: Performed By: #### V ANCT #### [place] [address] [place] Monocytes (Bld) [#/Vol] 0.8 10*3/uL Normal 0.0-0.8 [facility] Comment on above: Performed By: #### V ANCT #### [facility] [address] [place] [address] [place] Monocytes/100 WBC (Bld) 23.24 % High 0.00-20.00 [facility] Comment on above: Result Comment: For adults in ED, MDW > 20.0 may be associated with a higher risk of sepsis during the first 12 hrs of hospital admission Performed By: #### V ANCT #### [facility] [address] [place] [address] [place] Monocytes/100 WBC (Bld) 7.7 % Normal . [facility] Comment on above: Performed By: #### V ANCT #### [address] Neutrophils (Bld) [#/Vol] 8.5 10*3/uL High 1.8-7.7 [facility] Comment on above: Performed By: #### V ANCT #### [place] [address] [place] Neutrophils/100 WBC (Bld) 78.3 % Normal . [facility] Comment on above: Performed By: #### V ANCT #### [place] [address] [place] NRBC% 0.1 /100{WBC} Normal 0-0.5 [facility] Comment on above: Performed By: #### V ANCT #### [place] [address] [place] Platelet mean volume (Bld) [Entitic vol] 7.3 fL Normal 6.3-10.7 [facility] Comment on above: Performed By: #### V ANCT #### [facility] [address] [place] [address] [place] Platelets (Bld) [#/Vol] 237 10*3/uL Normal 150-450 [facility] Comment on above: Performed By: #### V ANCT #### [facility] [address] [place] [address] [place] RBC (Bld) [#/Vol] 4.70 10*6/uL Normal 3.60-5.00 [facility] Comment on above: Performed By: #### V ANCT #### [facility] [address] [place] [address] [place] WBC (Bld) [#/Vol] 10.8 10*3/uL Normal 3.8-11.6 [facility] Comment on above: Performed By: #### V ANCT #### [facility] [address] Creatinine [Mass/volume] in Serum or PlasmaOrdered By: Marilee Marcum on 08-06-2023 Creatinine [Mass/Vol] 0.72 mg/dL 0.60-1.20 [facility] ECG 12 lead ECGon 08-06-2023 ECG 12 lead ECG [facility] [place] [address] [place] [address] Electrocardiograph Report Signed Patient: Christiane Perez MR#: [id number] 2 : 1975 Acct:[id number] Age/Sex: 48 / F ADM Date: 08/06/23 Loc: ER Room: Type: [facility] ER Attending Dr: Ordering Provider: Marilee Marcum [...] change was found Confirmed by CHAI [facility] Graff ([id number]) on 08/08/2023 11:46:24 AM Referred By: Electronically Signed By:ROBIN ZUNIGA MD, FACC Transcribed By: MUS Signed By Mario Zuniga MD 08/08/23 1146 Normal [facility] Eosinophils Auto (Bld) [#/Vo l]Ordered By: Marilee Marcum on 08-06-2023 Eosinophils (Bld) [#/Vol] 0.1 10*3/uL 0.0-0.45 [facility] Eosinophils/100 WBC Auto (Bl d)Ordered By: Marilee Marcum on 08-06-2023 Eosinophils/100 WBC (Bld) 1.0 % . [facility] Erythrocyte distribution wid th Auto (RBC) [Ratio]Ordered By: Marilee Marcum on 08-06-2023 Erythrocyte distribution width (RBC) [Ratio] 16.7 % 11.9-15.3 [facility] Glucose [Mass/volume] in Ser um or PlasmaOrdered By: Marilee Marcum on 08-06-2023 Glucose [Mass/Vol] 99 mg/dL 70-100 [facility] Comment on above: ADA recommended refe rence rangeRandom Glucose Reference Range is dependent on time and content of last meal. Glucose of more than 200 mg/dL in a nonstressed, ambulatory subject supports the diagnosis of Diabetes Mellitus. Hematocrit Auto (Bld) [Volum e fraction]Ordered By: Marilee Marcum on 08-06-2023 Hematocrit (Bld) [Volume fraction] 45.8 % 34.0-46.4 [facility] Hemoglobin [Mass/volume] in BloodOrdered By: Marilee Marcum on 08-06-2023 Hemoglobin (Bld) [Mass/Vol] 15.4 g/dL 11.8-15.4 [facility] INR in Platelet poor plasma by Coagulation assayOrdered By: Marilee Marcum on 08-06-2023 INR Coag (PPP) [Relative time] 1.0 {INR} [facility] Comment on above: INR Therapeutic Rang e [...] RBC Auto (Bld) [#/Vol] 10.8 10*3/uL 3.8-11.6 [facility] Lymphocytes Auto (Bld) [#/Vo l]Ordered By: Marilee Marcum on 08-06-2023 Lymphocytes (Bld) [#/Vol] 1.4 10*3/uL 1.00-4.8 [facility] Lymphocytes/100 WBC Auto (Bl d)Ordered By: Marilee Marcum on 08-06-2023 Lymphocytes/100 WBC (Bld) 12.5 % . [facility] MCH Auto (RBC) [Entitic mass ]Ordered By: Marilee Marcum on 08-06-2023 MCH (RBC) [Entitic mass] 32.9 pg 24.7-34.3 [facility] MCHC Auto (RBC) [Mass/Vol]Or dered By: Marilee Marcum on 08-06-2023 MCHC (RBC) [Mass/Vol] 33.7 g/dL 32.0-35.0 [facility] MCV Auto (RBC) [Entitic vol] Ordered By: Marilee Marcum on 08-06-2023 MCV (RBC) [Entitic vol] 97.6 fL 80-100 [facility] Monocyte distribution width [Entitic volume] in Blood by AutomatedOrdered By: Marilee Marcum on 08-06-2023 Monocyte distribution width Auto (Bld) [Entitic vol] 23.24 % 0.00-20.00 [facility] Comment on above: For adults in ED, MD W > 20.0 may be associated with a higher risk of sepsis during the first 12 hrs of hospital admission Monocytes Auto (Bld) [#/Vol] Ordered By: Marilee Marcum on 08-06-2023 Monocytes (Bld) [#/Vol] 0.8 10*3/uL 0.0-0.8 [facility] Monocytes/100 WBC Auto (Bld) Ordered By: Marilee Marcum on 08-06-2023 Monocytes/100 WBC (Bld) 7.7 % . [facility] Natriuretic peptide B [Mass/ Vol]Ordered By: Marilee Marcum on 08-06-2023 Natriuretic peptide B (Bld) [Mass/Vol] 29.0 pg/mL 5-100 [facility] Neutrophils Auto (Bld) [#/Vo l]Ordered By: Marilee Marcum on 08-06-2023 Neutrophils (Bld) [#/Vol] 8.5 10*3/uL 1.8-7.7 [facility] Neutrophils/100 WBC Auto (Bl d)Ordered By: Marilee Marcum on 08-06-2023 Neutrophils/100 WBC (Bld) 78.3 % . [facility] No Panel InformationOrdered By: Marilee Marcum on 08-06-2023 Estimated GFR (CKD-EPI) > 60.0 mL/Min [facility] Creatinine Clearance (Chem 116.58 [facility] Nucleated erythrocytes [Pres ence] in Blood by Automated countOrdered By: Marilee Marcum on 08-06-2023 Nucleated RBC Auto Ql (Bld) 0.1 /100{WBC} 0-0.5 [facility] Partial Thromboplastin Timeo n 08-06-2023 aPTT Coag (Bld) [Time] 32.3 s Normal 25.1-36.5 [facility] Comment on above: Result Comment: A he matocrit value greater than 55% may lead to inaccurate results in coagulation testing. Patients having hematocrit values >55% require a special collection tube for coagulation studies. Please contact the laboratory at [phone] for redraw instructions. PERFORMED BY: [place] [address] PATHOLOGIST [employer] WAYNE WAKEFIELD M.D. Performed By: #### V ANCT #### [facility] [address] [place] [address] Platelet mean volume Auto (B ld) [Entitic vol]Ordered By: Marilee Marcum on 08-06-2023 Platelet mean volume (Bld) [Entitic vol] 7.3 fL 6.3-10.7 [facility] Platelets Auto (Bld) [#/Vol] Ordered By: Marilee Marcum on 08-06-2023 Platelets (Bld) [#/Vol] 237 10*3/uL 150-450 [facility] Potassium [Moles/volume] in Serum or PlasmaOrdered By: Marilee Marcum on 08-06-2023 Potassium [Moles/Vol] 3.7 mmol/L 3.5-5.1 [facility] Prothrombin Time INRon 08-06 INR Coag (PPP) [Relative time] 1.0 {INR} Normal [facility] Comment on above: Result Comment: INR Therapeutic [...] 4.5 Performed By: #### V ANCT #### [facility] [address] PT Coag (PPP) [Time] 11.3 s Normal 9.0-12.9 [facility] Comment on above: Result Comment: A he matocrit value greater than 55% may lead to inaccurate results in coagulation testing. Patients having hematocrit values >55% require a special collection tube for coagulation studies. Please contact the laboratory at [phone] for redraw instructions. Performed By: #### V ANCT #### [facility] [address] [place] [id number] [facility] Prothrombin time (PT)Ordered By: Marilee Marcum on 08-06-2023 PT Coag (PPP) [Time] 11.3 s 9.0-12.9 [facility] Comment on above: A hematocrit value g reater than 55% may lead to inaccurate results in coagulation testing. Patients having hematocrit values >55% require a special collection tube for coagulation studies. Please contact the laboratory at [phone] for redraw instructions. RBC Auto (Bld) [#/Vol]Ordere d By: Marilee Marcum on 08-06-2023 RBC (Bld) [#/Vol] 4.70 10*6/uL 3.60-5.00 [facility] Serum or plasma anion gap de terminationOrdered By: Marilee Marcum on 08-06-2023 Anion gap [Moles/Vol] 9.8 mmol/L 6.0-15.0 [facility] Sodium [Moles/volume] in Ser um or PlasmaOrdered By: Marilee Marcum on 08-06-2023 Sodium [Moles/Vol] 137 mmol/L 136-145 [facility] Troponin I High Sensitivityo n 08-06-2023 Troponin I High Sensitivity 8.9 pg/mL Normal 0.0-15.0 [facility] Comment on above: Result Comment: PERF ORMED BY: [place] [address] PATHOLOGIST [employer] AWYNE WAKEFIELD M.D. Performed By: #### V ANCT #### [address] Troponin I.cardiac [Mass/vol ume] in Serum or Plasma by Detection limit <= 0.01 ng/Ordered By: Marilee Marcum on 08-06-2023 Troponin I.cardiac DL <= 0.01 ng/mL [Mass/Vol] 8.9 pg/mL 0.0-15.0 [facility] Urea nitrogen [Mass/volume] in Serum or PlasmaOrdered By: Marilee Marcum on 08-06-2023 Urea nitrogen [Mass/Vol] 8 mg/dL 7-25 [facility] WBC Auto (Bld) [#/Vol]Ordere d By: Marilee Marcum on 08-06-2023 WBC (Bld) [#/Vol] 10.8 10*3/uL 3.8-11.6 [facility] XR chest 2V*on 08-06-2023 XR chest 2V* [facility] [place] [address] [place] [address] XRay Report Signed Patient: Christiane Perez MR#: [id number] 2 : 1975 Acct:[id number] Age/Sex: 48 / F ADM Date: 08/06/23 Loc: ER Room: Type: [facility] ER Attending Dr: Copies to: Marilee [...] Giovanny Cleveland M.D.08/06/2023 8:42 PM Dictation Location: [place] [address] Transcribed By: [facility] 08/06/232041 Dictated By: Giovanny Cleveland DO 08/06/232038 Signed By: 08/06/232041 [facility] Basic Metabolic Panelon 12-0 Anion gap [Moles/Vol] 9.2 mmol/L Normal 6.0-15.0 [facility] Comment on above: Performed By: #### G LULS #### Point of Care testing , Calcium [Mass/Vol] 8.9 mg/dL Normal 8.6-10.3 [facility] Comment on above: Performed By: #### G LULS #### Point of Care testing , Chloride [Moles/Vol] 107 mmol/L Normal 98-107 [facility] Comment on above: Performed By: #### G LULS #### Point of Care testing , CO2 [Moles/Vol] 25.5 mmol/L Normal 21.0-31.0 [facility] Comment on above: Performed By: #### G LULS #### Point of Care testing , Creatinine [Mass/Vol] 0.70 mg/dL Normal 0.60-1.20 [facility] Comment on above: Performed By: #### G LULS #### Point of Care testing , Creatinine Clr Calc Pharmacy 119.81 [facility] Comment on above: Result Comment: PERF ORMED BY: [place] [address] [place] [address] PATHOLOGIST [employer] WAYNE WAKEFIELD M.D. Performed By: #### G LULS #### Point of Care testing , GFR/1.73 sq M.predicted MDRD (S/P/Bld) [Vol rate/Area] mL/min/{1.73_m2} Normal [facility] Comment on above: Performed By: #### G LULS #### Point of Care testing , Glucose [Mass/Vol] 50 mg/dL Low 70-100 [facility] Comment on above: Result Comment: [place] Glucose Reference Range is dependent on time and content of last meal. Glucose of more than 200 mg/dL in a nonstressed, ambulatory subject supports the diagnosis of Diabetes Mellitus. ADA recommended reference range Performed By: #### G LULS #### Point of Care testing , Potassium [Moles/Vol] 3.7 mmol/L Normal 3.5-5.1 [facility] Comment on above: Performed By: #### G LULS #### Point of Care testing , Sodium [Moles/Vol] 138 mmol/L Normal 136-145 [facility] Comment on above: Performed By: #### G LULS #### Point of Care testing , Urea nitrogen [Mass/Vol] 10 mg/dL Normal 7-25 [facility] Comment on above: Performed By: #### G LULS #### Point of Care testing , Complete Blood Count Auto Di ffon 07-17-2023 Basophils (Bld) [#/Vol] 0.2 10*3/uL Normal 0.0-0.2 [facility] Comment on above: Result Comment: PERF ORMED BY: [facility] [address] [place] [address] PATHOLOGIST [employer] WAYNE WAKEFIELD M.D. Performed By: #### G LULS #### Point of Care testing , Basophils/100 WBC (Bld) 1.1 % Normal . [facility] Comment on above: Performed By: #### G LULS #### Point of Care testing , Eosinophils (Bld) [#/Vol] 0.2 10*3/uL Normal 0.0-0.45 [facility] Comment on above: Performed By: #### G MARYLS #### Point of Care testing , Eosinophils/100 WBC (Bld) 1.2 % Normal . [facility] Comment on above: Performed By: #### G MARYLS #### Point of Care testing , Erythrocyte distribution width (RBC) [Ratio] 16.3 % High 11.9-15.3 [facility] Comment on above: Performed By: #### G MARYLS #### Point of Care testing , Hematocrit (Bld) [Volume fraction] 45.8 % Normal 34.0-46.4 [facility] Comment on above: Performed By: #### G MARYLS #### Point of Care testing , Hemoglobin (Bld) [Mass/Vol] 15.3 g/dL Normal 11.8-15.4 [facility] Comment on above: Performed By: #### G MARYLS #### Point of Care testing , Lymphocytes (Bld) [#/Vol] 4.4 10*3/uL Normal 1.00-4.8 [facility] Comment on above: Performed By: #### G MARYLS #### Point of Care testing , Lymphocytes/100 WBC (Bld) 32.3 % Normal . [facility] Comment on above: Performed By: #### G MARYLS #### Point of Care testing , MCH (RBC) [Entitic mass] 32.2 pg Normal 24.7-34.3 [facility] Comment on above: Performed By: #### G MARYLS #### Point of Care testing , MCV (RBC) [Entitic vol] 96.4 fL Normal 80-100 [facility] Comment on above: Performed By: #### G MARYLS #### Point of Care testing , Mean Corpuscular HGB Conc 33.4 g/dL Normal 32.0-35.0 [facility] Comment on above: Performed By: #### G MARYLS #### Point of Care testing , Monocytes (Bld) [#/Vol] 0.9 10*3/uL High 0.0-0.8 [facility] Comment on above: Performed By: #### G MARE #### Point of Care testing , Monocytes/100 WBC (Bld) 17.19 % Normal 0.00-20.00 [facility] Comment on above: Performed By: #### G MARYLS #### Point of Care testing , Monocytes/100 WBC (Bld) 6.8 % Normal . [facility] Comment on above: Performed By: #### G MARYLS #### Point of Care testing , Neutrophils (Bld) [#/Vol] 8.0 10*3/uL High 1.8-7.7 [facility] Comment on above: Performed By: #### G MARYLS #### Point of Care testing , Neutrophils/100 WBC (Bld) 58.6 % Normal . [facility] Comment on above: Performed By: #### G MARYLS #### Point of Care testing , NRBC% 0.1 /100{WBC} Normal 0-0.5 [facility] Comment on above: Performed By: #### G MARYLS #### Point of Care testing , Platelet mean volume (Bld) [Entitic vol] 6.9 fL Normal 6.3-10.7 [facility] Comment on above: Performed By: #### Sophia GARVEY #### Point of Care testing , Platelets (Bld) [#/Vol] 414 10*3/uL Normal 150-450 [facility] Comment on above: Performed By: #### G MARE #### Point of Care testing , RBC (Bld) [#/Vol] 4.75 10*6/uL Normal 3.60-5.00 [facility] Comment on above: Performed By: #### G MARE #### Point of Care testing , WBC (Bld) [#/Vol] 13.6 10*3/uL High 3.8-11.6 [facility] Comment on above: Performed By: #### G MARYLS #### Point of Care testing , XR chest 1V portableon 07-17 XR chest 1V portable [facility] [place] [address] XRay Report Signed Patient: Christiane Perez MR#: [id number] 2 : 1975 Acct:[id number] Age/Sex: 48 / F ADM Date: 07/16/23 Loc: ER Room: Type: [facility] ER Attending Dr: Copies to: Yasmin Leung [...] Shireen Caruso M.D.07/17/2023 8:50 AM Dictation Location: [place] [address] Transcribed By: CHARLI 07/17/23 0850 Dictated By: Shireen Caruso MD 07/17/23 0849 Signed By: 07/17/23 0850 Normal [facility] Basophils Auto (Bld) [#/Vol] Ordered By: Yasmin Leung on 07-16-2023 Basophils (Bld) [#/Vol] 0.2 10*3/uL 0.0-0.2 [facility] Basophils/100 WBC Auto (Bld) Ordered By: Yasmin Leung on 07-16-2023 Basophils/100 WBC (Bld) 1.1 % . [facility] Calcium [Mass/volume] in Ser um or PlasmaOrdered By: Yasmin Leung on 07-16-2023 Calcium [Mass/Vol] 8.9 mg/dL 8.6-10.3 [facility] Carbon dioxide, total [Moles /volume] in Serum or PlasmaOrdered By: Yasmin Leung on 07-16-2023 CO2 [Moles/Vol] 25.5 mmol/L 21.0-31.0 [facility] Chloride [Moles/volume] in S kaitlin or PlasmaOrdered By: Yasmin Leung on 12-01-2023 Chloride [Moles/Vol] 107 mmol/L 98-107 [facility] Creatinine [Mass/volume] in Serum or PlasmaOrdered By: Yasmin Leung on 07-16-2023 Creatinine [Mass/Vol] 0.70 mg/dL 0.60-1.20 [facility] ECG 12 lead ECGon 07-16-2023 ECG 12 lead ECG [facility] [place] [address] Electrocardiograph Report Signed Patient: Christiane Perez MR#: [id number] 2 : 1975 Acct:[id number] Age/Sex: 48 / F ADM Date: 07/16/23 Loc: ER Room: Type: [facility] ER Attending Dr: Ordering Provider: Yasmin [...] By Yasmin Leung MD 07/17/23 0119 Normal [facility] Eosinophils Auto (Bld) [#/Vo l]Ordered By: Yasmin Leung on 07-16-2023 Eosinophils (Bld) [#/Vol] 0.2 10*3/uL 0.0-0.45 [facility] Eosinophils/100 WBC Auto (Bl d)Ordered By: Yasmin Leung on 07-16-2023 Eosinophils/100 WBC (Bld) 1.2 % . [facility] Erythrocyte distribution wid th Auto (RBC) [Ratio]Ordered By: Yasmin Leung on 07-16-2023 Erythrocyte distribution width (RBC) [Ratio] 16.3 % 11.9-15.3 [facility] Glucose [Mass/volume] in Ser um or PlasmaOrdered By: Yasmin Leung on 07-16-2023 Glucose [Mass/Vol] 50 mg/dL 70-100 [facility] Comment on above: ADA recommended refe rence rangeRandom Glucose Reference Range is dependent on time and content of last meal. Glucose of more than 200 mg/dL in a nonstressed, ambulatory subject supports the diagnosis of Diabetes Mellitus. Hematocrit Auto (Bld) [Volum e fraction]Ordered By: Yasmin Leung on 07-16-2023 Hematocrit (Bld) [Volume fraction] 45.8 % 34.0-46.4 [facility] Hemoglobin [Mass/volume] in BloodOrdered By: Yasmin Leung on 07-16-2023 Hemoglobin (Bld) [Mass/Vol] 15.3 g/dL 11.8-15.4 [facility] Leukocytes [#/volume] correc billy for nucleated erythrocytes in Blood by Automated counOrdered By: Yasmin Leung on 07-16-2023 WBC corrected for nucl RBC Auto (Bld) [#/Vol] 13.6 10*3/uL 3.8-11.6 [facility] Lymphocytes Auto (Bld) [#/Vo l]Ordered By: Yasmin Leung on 07-16-2023 Lymphocytes (Bld) [#/Vol] 4.4 10*3/uL 1.00-4.8 [facility] Lymphocytes/100 WBC Auto (Bl d)Ordered By: Yasmin Leung on 07-16-2023 Lymphocytes/100 WBC (Bld) 32.3 % . [facility] MCH Auto (RBC) [Entitic mass ]Ordered By: Yasmin Leung on 07-16-2023 MCH (RBC) [Entitic mass] 32.2 pg 24.7-34.3 [facility] MCHC Auto (RBC) [Mass/Vol]Or dered By: Yasmin Leung on 07-16-2023 MCHC (RBC) [Mass/Vol] 33.4 g/dL 32.0-35.0 [facility] MCV Auto (RBC) [Entitic vol] Ordered By: Yasmin Leung on 07-16-2023 MCV (RBC) [Entitic vol] 96.4 fL 80-100 [facility] Monocyte distribution width [Entitic volume] in Blood by AutomatedOrdered By: Yasmin Leung on 07-16-2023 Monocyte distribution width Auto (Bld) [Entitic vol] 17.19 % 0.00-20.00 [facility] Monocytes Auto (Bld) [#/Vol] Ordered By: Yasmin Leung on 07-16-2023 Monocytes (Bld) [#/Vol] 0.9 10*3/uL 0.0-0.8 [facility] Monocytes/100 WBC Auto (Bld) Ordered By: Yasmin Leung on 07-16-2023 Monocytes/100 WBC (Bld) 6.8 % . [facility] Neutrophils Auto (Bld) [#/Vo l]Ordered By: Yasmin Leung on 07-16-2023 Neutrophils (Bld) [#/Vol] 8.0 10*3/uL 1.8-7.7 [facility] Neutrophils/100 WBC Auto (Bl d)Ordered By: Yasmin Leung on 07-16-2023 Neutrophils/100 WBC (Bld) 58.6 % . [facility] No Panel InformationOrdered By: Yasmin Leung on 07-16-2023 Estimated GFR (CKD-EPI) > 60.0 mL/Min [facility] Pharmacy Creatinine Clearance (Chem 119.81 [facility] Nucleated erythrocytes [Pres ence] in Blood by Automated countOrdered By: Yasmin Leung on 07-16-2023 Nucleated RBC Auto Ql (Bld) 0.1 /100{WBC} 0-0.5 [facility] Platelet mean volume Auto (B ld) [Entitic vol]Ordered By: Yasmin Leung on 07-16-2023 Platelet mean volume (Bld) [Entitic vol] 6.9 fL 6.3-10.7 [facility] Platelets Auto (Bld) [#/Vol] Ordered By: Yasmin Leung on 07-16-2023 Platelets (Bld) [#/Vol] 414 10*3/uL 150-450 [facility] Potassium [Moles/volume] in Serum or PlasmaOrdered By: Yasmin Leung on 07-16-2023 Potassium [Moles/Vol] 3.7 mmol/L 3.5-5.1 [facility] RBC Auto (Bld) [#/Vol]Ordere d By: Yasmin Leung on 07-16-2023 RBC (Bld) [#/Vol] 4.75 10*6/uL 3.60-5.00 [facility] Serum or plasma anion gap de terminationOrdered By: Yasmin Leung on 07-16-2023 Anion gap [Moles/Vol] 9.2 mmol/L 6.0-15.0 [facility] Sodium [Moles/volume] in Ser um or PlasmaOrdered By: Yasmin Leung on 07-16-2023 Sodium [Moles/Vol] 138 mmol/L 136-145 [facility] Urea nitrogen [Mass/volume] in Serum or PlasmaOrdered By: Yasmin Leung on 07-16-2023 Urea nitrogen [Mass/Vol] 10 mg/dL 7-25 [facility] WBC Auto (Bld) [#/Vol]Ordere d By: Yasmin Leung on 07-16-2023 WBC (Bld) [#/Vol] 13.6 10*3/uL 3.8-11.6 [facility] COVID CepheidOrdered By: Antonio Villeda on 07-05-2023 SARS-CoV-2 (COVID-19) Ab IA Ql Negative Negative [facility] Comment on above: This is a duplicate Cepheid Xpert Xpress CoV-2/Flu/RSV Plus RNA by RT-PCR result to be used for statistical tracking purpose only. SARS-CoV-2 (COVID-19) RNA SOILA+probe Ql (Unsp spec) [facility] COVID-19 / Flu A/B / RSV PCR [...] or Cepheid Disclaimer revoked sooner. PERFORMED BY: [address] [address] PATHOLOGIST [employer] WAYNE WAKEFIELD M.D. Normal [facility] Comment on above: Performed By: #### G LULS #### Point of Care testing , Cepheid COVID PCR Negativeon 07-05-2023 SARS-CoV-2 (COVID-19) RNA SOILA+probe Ql (Unsp spec) Negative Normal Negative [facility] Comment on above: Result Comment: This is a duplicate Cepheid Xpert Xpress CoV-2/Flu/RSV Plus RNA by RT-PCR result to be used for statistical tracking purpose only. PERFORMED BY: [address] [place] [address] PATHOLOGIST [employer] WAYNE WAKEFIELD M.D. Performed By: #### G LULS #### Point of Care testing , XR chest 2V*on 07-05-2023 XR chest 2V* [facility] [place] [address] [place] [address] XRay Report Signed Patient: Christiane Perez MR#: [id number] 2 : 1975 Acct:[id number] Age/Sex: 48 / F ADM Date: 07/05/23 Loc: ER Room: Type: [facility] ER Attending Dr: Copies to: Elio [...] Giovanny Cleveland M.D.07/05/2023 2:41 PM Dictation Location: [place] [address] Transcribed By: [facility] 07/05/23 1441 Dictated By: Giovanny Cleveland DO 07/05/23 1437 Signed By: 07/05/23 1441 Normal [facility] Quick Strepon 06-20-2023 S. pyogenes Org specific cx Ql (Throat) Negative [employer] Other Quick Strep [employer] Other CT chest wo conon 04-09-2023 CT chest wo con [facility] Main [address] [address] [address] Scan Report Signed Patient: Christiane Perez MR#: [id number] 2 : 1975 Acct:[id number] Age/Sex: 48 / F ADM Date: 04/09/23 Loc: [facility] Room: Type: [facility] Attending Dr: Valeriano Horta MD Copies [...] Johnson Jr., D.OJosue04/09/2023 3:00 PM Dictation Location: [place] [address] Transcribed By: [facility] 04/09/23 1500 Dictated By: Rodger Johnson Jr, DO 04/09/23 1458 Signed By: 04/09/23 1500 Normal [facility] SURGICAL PATHOLOGY REFERENCE LAB CONSULTon 03-19-2023 CASE REPORT Normal [facility] Comment on above: Order Comment: Speci men Type: SLIDE Ordering Facility: [facility] Address: [address] [place] [phone] Result Comment: Surg [facility] Pathology Report Case: [id number] Authorizing Provider: Gregory Aranda MD Collected: 03/19/2023 09:16 AM Ordering Location: [facility] Main Received: 03/19/2023 09:14 AM Pathologist: Mando Gar MD Specimen: SLIDE(S), 8 SLIDES [id number] Performed By: #### L [id number] #### [facility] CLIA [id number] [address] [facility] [address] CLINICAL HISTORY CONSULT REQUESTED [facility] Comment on above: Order Comment: Speci men Type: SLIDE Ordering Facility: [facility] Address: [address] [place] [phone] Performed By: #### L [id number] #### [facility] CLIA [id number] [address] [place] [address] DIAGNOSIS COMMENT Normal [facility] Comment on above: Order Comment: Speci men Type: SLIDE Ordering Facility: [facility] Address: [address] [place] [phone] Result Comment: Than k you for sharing [...] available, is recommended. Performed By: #### L [id number] #### [facility] CLIA [id number] [address] [place] [address] [place] FINAL DIAGNOSIS Normal [facility] Comment on above: Order Comment: Speci tee Type: SLIDE Ordering Facility: [facility] Address: [address] [place] [phone] Result Comment: Lung , left upper lobe, transbronchial biopsy ([id number], A1; 03/11/2023): -Organizing acute lung injury with fibrin and acute inflammation Performed By: #### L [id number] #### [facility] CLIA [id number] [address] [place] [address] [place] FINAL PERFORMING LAB Normal [facility] Comment on above: Order Comment: Rosalee oliveira Type: SLIDE Ordering Facility: [facility] Address: [address] [place], [place] [phone] Result Comment: Diag nostic interpretation performed at [facility], [address] [place] [address] CLIA# [id number] Independent Film Maker: Don Meehan M.D. Performed By: #### L [id number] #### [facility] CLIA [id number] [address] [place] [address] [place] XR chest 1V portableon 03-17 XR chest 1V portable [facility] Main [address] [address] XRay Report Signed Patient: Christiane Perez MR#: [id number] 2 : 1975 Acct:[id number] Age/Sex: 48 / F ADM Date: 03/10/23 Loc: Room: [address] [place] [address] Type: DIS IN Attending Dr: Krunal Kelly [...] Johnson Jr., D.O.03/17/2023 10:12 AM Dictation Location: [place] [address] Transcribed By: [facility] 03/17/23 1012 Dictated By: Rodger Johnson Jr, DO 03/17/23 1012 Signed By: 03/17/23 1012 Normal [facility] A1C with Estimated Average G shilpi 03-14-2023 Glucose [Mass/Vol] 171 mg/dL Normal [facility] Comment on above: Result Comment: PERF ORMED BY: [facility] [address] [place] [address] PATHOLOGIST [employer] WAYNE WAKEFIELD M.D. Performed By: #### G LULS #### Point of Care testing , HbA1c (Bld) [Mass fraction] 7.6 % High 4.3-5.6 [facility] Comment on above: Result Comment: Incr eased risk for diabetes: 5.7 - 6.4 diabetes: >6.4 glycemic control for adults with diabetes: <7.0 Performed By: #### G LULS #### Point of Care testing , Alanine aminotransferase [En zymatic activity/volume] in Serum or PlasmaOrdered By: Krunal Kelly on 03-14-2023 ALT [Catalytic activity/Vol] 5 U/L 7-52 [facility] Albumin [Mass/volume] in Ser um or Plasma by Bromocresol green (BCG) dye binding methoOrdered By: Krunal Kelly on 03-14-2023 Albumin BCG dye [Mass/Vol] 2.9 g/dL 3.5-5.7 [facility] Alkaline phosphatase [Enzyma tic activity/volume] in Serum or PlasmaOrdered By: Krunal Kelly on 03-14-2023 ALP [Catalytic activity/Vol] 94 U/L 34-104 [facility] Aspartate aminotransferase [ Enzymatic activity/volume] in Serum or PlasmaOrdered By: Krunal Kelly on 03-14-2023 AST [Catalytic activity/Vol] 8 U/L 13-39 [facility] Basophils Auto (Bld) [#/Vol] Ordered By: Eron Wood on 03-14-2023 Basophils (Bld) [#/Vol] 0.1 10*3/uL 0.0-0.2 [facility] Basophils/100 WBC Auto (Bld) Ordered By: Eron Wood on 03-14-2023 Basophils/100 WBC (Bld) 0.7 % . [facility] Bilirubin.total [Mass/volume ] in Serum or PlasmaOrdered By: Krunal Kelly on 03-14-2023 Bilirubin [Mass/Vol] 0.7 mg/dL 0.3-1.0 [facility] Calcium [Mass/volume] in Ser um or PlasmaOrdered By: Krunal Kelly on 03-14-2023 Calcium [Mass/Vol] 8.3 mg/dL 8.6-10.3 [facility] Carbon dioxide, total [Moles /volume] in Serum or PlasmaOrdered By: Krunal Kelly on 03-14-2023 CO2 [Moles/Vol] 24.8 mmol/L 21.0-31.0 [facility] Chloride [Moles/volume] in S kaitlin or PlasmaOrdered By: Krunal Kelly on 03-14-2023 Chloride [Moles/Vol] 108 mmol/L 98-107 [facility] Complete Blood Count Auto Di ffon 03-14-2023 Basophils (Bld) [#/Vol] 0.1 10*3/uL Normal 0.0-0.2 [facility] Comment on above: Result Comment: PERF ORMED BY: [place] [address] PATHOLOGIST [employer] WAYNE WAKEFIELD M.D. Performed By: #### V ANCT #### [address] Basophils/100 WBC (Bld) 0.7 % Normal . [facility] Comment on above: Performed By: #### V ANCT #### [address] Eosinophils (Bld) [#/Vol] 0.4 10*3/uL Normal 0.0-0.45 [facility] Comment on above: Performed By: #### V ANCT #### [address] Eosinophils/100 WBC (Bld) 4.4 % Normal . [facility] Comment on above: Performed By: #### V ANCT #### [address] Erythrocyte distribution width (RBC) [Ratio] 15.5 % High 11.9-15.3 [facility] Comment on above: Performed By: #### V ANCT #### [address] Hematocrit (Bld) [Volume fraction] 35.1 % Normal 34.0-46.4 [facility] Comment on above: Performed By: #### V ANCT #### [place] [address] [place] Hemoglobin (Bld) [Mass/Vol] 12.0 g/dL Normal 11.8-15.4 [facility] Comment on above: Performed By: #### V ANCT #### [address] Lymphocytes (Bld) [#/Vol] 1.6 10*3/uL Normal 1.00-4.8 [facility] Comment on above: Performed By: #### V ANCT #### [address] Lymphocytes/100 WBC (Bld) 16.8 % Normal . [facility] Comment on above: Performed By: #### V ANCT #### [address] MCH (RBC) [Entitic mass] 32.8 pg Normal 24.7-34.3 [facility] Comment on above: Performed By: #### V ANCT #### [address] MCV (RBC) [Entitic vol] 96.4 fL Normal 80-100 [facility] Comment on above: Performed By: #### V ANCT #### [address] Mean Corpuscular HGB Conc 34.1 g/dL Normal 32.0-35.0 [facility] Comment on above: Performed By: #### V ANCT #### [address] Monocytes (Bld) [#/Vol] 0.7 10*3/uL Normal 0.0-0.8 [facility] Comment on above: Performed By: #### V ANCT #### [address] Monocytes/100 WBC (Bld) 7.1 % Normal . [facility] Comment on above: Performed By: #### V ANCT #### [address] Neutrophils (Bld) [#/Vol] 6.8 10*3/uL Normal 1.8-7.7 [facility] Comment on above: Performed By: #### V ANCT #### [address] Neutrophils/100 WBC (Bld) 71.0 % Normal . [facility] Comment on above: Performed By: #### V ANCT #### [place] [address] [place] NRBC% 0.1 /100{WBC} Normal 0-0.5 [facility] Comment on above: Performed By: #### V ANCT #### [address] Platelet mean volume (Bld) [Entitic vol] 6.2 fL Low 6.3-10.7 [facility] Comment on above: Performed By: #### V ANCT #### [address] Platelets (Bld) [#/Vol] 424 10*3/uL Normal 150-450 [facility] Comment on above: Performed By: #### V ANCT #### [address] RBC (Bld) [#/Vol] 3.65 10*6/uL Normal 3.60-5.00 [facility] Comment on above: Performed By: #### V ANCT #### [address] WBC (Bld) [#/Vol] 9.6 10*3/uL Normal 3.8-11.6 [facility] Comment on above: Performed By: #### V ANCT #### [address] Comprehensive Metabolic Pane moose 03-14-2023 Albumin [Mass/Vol] 2.9 g/dL Low 3.5-5.7 [facility] Comment on above: Performed By: #### G LUAUGUSTIN #### Point of Care testing , Albumin/Globulin [Mass ratio] 0.8 {ratio} Normal [facility] Comment on above: Performed By: #### G MARE #### Point of Care testing , ALP [Catalytic activity/Vol] 94 U/L Normal 34-104 [facility] Comment on above: Performed By: #### G MARYLS #### Point of Care testing , ALT [Catalytic activity/Vol] 5 U/L Low 7-52 [facility] Comment on above: Performed By: #### G LULS #### Point of Care testing , Anion gap [Moles/Vol] 8.9 mmol/L Normal 6.0-15.0 [facility] Comment on above: Performed By: #### G MARYLS #### Point of Care testing , AST [Catalytic activity/Vol] 8 U/L Low 13-39 [facility] Comment on above: Performed By: #### G MARYLS #### Point of Care testing , Bilirubin [Mass/Vol] 0.7 mg/dL Normal 0.3-1.0 [facility] Comment on above: Performed By: #### G MARYLS #### Point of Care testing , Calcium [Mass/Vol] 8.3 mg/dL Low 8.6-10.3 [facility] Comment on above: Performed By: #### G MARYLS #### Point of Care testing , Chloride [Moles/Vol] 108 mmol/L High 98-107 [facility] Comment on above: Performed By: #### G MARYLS #### Point of Care testing , CO2 [Moles/Vol] 24.8 mmol/L Normal 21.0-31.0 [facility] Comment on above: Performed By: #### G MARYLS #### Point of Care testing , Creatinine [Mass/Vol] 0.68 mg/dL Normal 0.60-1.20 [facility] Comment on above: Performed By: #### G MARYLS #### Point of Care testing , Creatinine Clr Calc Pharmacy 119.15 [facility] Comment on above: Result Comment: PERF ORMED BY: [facility] [address] [place] [address] PATHOLOGIST [employer] WAYNE WAKEFIELD M.D. Performed By: #### G MARYLS #### Point of Care testing , GFR/1.73 sq M.predicted MDRD (S/P/Bld) [Vol rate/Area] mL/min/{1.73_m2} [facility] Comment on above: Performed By: #### G MARYLS #### Point of Care testing , Globulin (S) [Mass/Vol] 3.7 g/dL [facility] Comment on above: Performed By: #### G LULS #### Point of Care testing , Glucose [Mass/Vol] 86 mg/dL Normal 70-100 [facility] Comment on above: Result Comment: [place] Glucose Reference Range is dependent on time and content of last meal. Glucose of more than 200 mg/dL in a nonstressed, ambulatory subject supports the diagnosis of Diabetes Mellitus. ADA recommended reference range Performed By: #### G LULS #### Point of Care testing , Potassium [Moles/Vol] 3.7 mmol/L Normal 3.5-5.1 [facility] Comment on above: Performed By: #### G LULS #### Point of Care testing , Protein [Mass/Vol] 6.6 g/dL Normal 6.4-8.9 [facility] Comment on above: Performed By: #### G LULS #### Point of Care testing , Sodium [Moles/Vol] 138 mmol/L Normal 136-145 [facility] Comment on above: Performed By: #### G LULS #### Point of Care testing , Urea nitrogen [Mass/Vol] 6 mg/dL Low 7-25 [facility] Comment on above: Performed By: #### G LULS #### Point of Care testing , Creatinine [Mass/volume] in Serum or PlasmaOrdered By: Krunal Kelly on 03-14-2023 Creatinine [Mass/Vol] 0.68 mg/dL 0.60-1.20 [facility] Eosinophils Auto (Bld) [#/Vo l]Ordered By: Eron Wood on 03-14-2023 Eosinophils (Bld) [#/Vol] 0.4 10*3/uL 0.0-0.45 [facility] Eosinophils/100 WBC Auto (Bl d)Ordered By: Eron Wood on 03-14-2023 Eosinophils/100 WBC (Bld) 4.4 % . [facility] Erythrocyte distribution wid th Auto (RBC) [Ratio]Ordered By: Eron Wood on 03-14-2023 Erythrocyte distribution width (RBC) [Ratio] 15.5 % 11.9-15.3 [facility] Globulin Calc (S) [Mass/Vol] Ordered By: Krunal Kelly on 03-14-2023 Globulin (S) [Mass/Vol] 3.7 g/dL [facility] Glucose Glucometer (BldC) [M ass/Vol]Ordered By: Krunal Kelly on 03-14-2023 Glucose [Mass/Vol] 249 mg/dL [facility] Comment on above: Random Glucose Refer ence Range is dependent on time and content of last meal. Glucose of more than 200 mg/dL in a nonstressed, ambulatory subject supports the diagnosis of Diabetes Mellitus. Glucose Poct Glucometerson 0 03-14-2023 Glucose [Mass/Vol] 249 mg/dL Normal [facility] Comment on above: Result Comment: [place] Glucose Reference Range is dependent on time and content of last meal. Glucose of more than 200 mg/dL in a nonstressed, ambulatory subject supports the diagnosis of Diabetes Mellitus. PERFORMED BY: [facility] [address] [place] [address] PATHOLOGIST [employer] WAYNE WAKEFIELD M.D. Performed By: #### G LULS #### Point of Care testing , Commemt1 Glu2: Cleaned Meter Normal [facility] Comment on above: Result Comment: PERF ORMED BY: [facility] [address] [place] [address] PATHOLOGIST [employer] WAYNE WAKEFIELD M.D. Performed By: #### G LULS #### Point of Care testing , Glucose [Mass/Vol] 95 mg/dL Normal [facility] Comment on above: Result Comment: [place] Glucose Reference Range is dependent on time and content of last meal. Glucose of more than 200 mg/dL in a nonstressed, ambulatory subject supports the diagnosis of Diabetes Mellitus. Performed By: #### G LULS #### Point of Care testing , Glucose [Mass/volume] in Ser um or PlasmaOrdered By: Krunal Kelly on 03-14-2023 Glucose [Mass/Vol] 86 mg/dL 70-100 [facility] Comment on above: ADA recommended refe [...] from glycated hemoglobin (Bld) [Mass/Vol] 171 mg/dL [facility] Hematocrit Auto (Bld) [Volum e fraction]Ordered By: Eron Wood on 03-14-2023 Hematocrit (Bld) [Volume fraction] 35.1 % 34.0-46.4 [facility] Hemoglobin A1c percentageOrd ered By: Krunal Kelly on 03-14-2023 HbA1c (Bld) [Mass fraction] 7.6 % 4.3-5.6 [facility] Comment on above: Increased risk for d iabetes: 5.7 - 6.4diabetes: >6.4glycemic control for adults with diabetes: <7.0 Hemoglobin [Mass/volume] in BloodOrdered By: Eron Wood on 03-14-2023 Hemoglobin (Bld) [Mass/Vol] 12.0 g/dL 11.8-15.4 [facility] Leukocytes [#/volume] correc billy for nucleated erythrocytes in Blood by Automated counOrdered By: Eron Wood on 03-14-2023 WBC corrected for nucl RBC Auto (Bld) [#/Vol] 9.6 10*3/uL 3.8-11.6 [facility] Lymphocytes Auto (Bld) [#/Vo l]Ordered By: Eron Wood on 03-14-2023 Lymphocytes (Bld) [#/Vol] 1.6 10*3/uL 1.00-4.8 [facility] Lymphocytes/100 WBC Auto (Bl d)Ordered By: Eron Wood on 03-14-2023 Lymphocytes/100 WBC (Bld) 16.8 % . [facility] MCH Auto (RBC) [Entitic mass ]Ordered By: Eron Wood on 03-14-2023 MCH (RBC) [Entitic mass] 32.8 pg 24.7-34.3 [facility] MCHC Auto (RBC) [Mass/Vol]Or dered By: Eron Wood on 03-14-2023 MCHC (RBC) [Mass/Vol] 34.1 g/dL 32.0-35.0 [facility] MCV Auto (RBC) [Entitic vol] Ordered By: Eron Wood on 03-14-2023 MCV (RBC) [Entitic vol] 96.4 fL 80-100 [facility] Monocytes Auto (Bld) [#/Vol] Ordered By: Eron Wood on 03-14-2023 Monocytes (Bld) [#/Vol] 0.7 10*3/uL 0.0-0.8 [facility] Monocytes/100 WBC Auto (Bld) Ordered By: Eron Wood on 03-14-2023 Monocytes/100 WBC (Bld) 7.1 % . [facility] Neutrophils Auto (Bld) [#/Vo l]Ordered By: Eron Wood on 03-14-2023 Neutrophils (Bld) [#/Vol] 6.8 10*3/uL 1.8-7.7 [facility] Neutrophils/100 WBC Auto (Bl d)Ordered By: Eron Wood on 03-14-2023 Neutrophils/100 WBC (Bld) 71.0 % . [facility] No Panel InformationOrdered By: Krunal Kelly on 03-14-2023 Bedside Glucose Comment Glu2: cleaned meter [facility] Estimated GFR (CKD-EPI) > 60.0 mL/Min [facility] Pharmacy Creatinine Clearance (Chem 119.15 [facility] Nucleated erythrocytes [Pres ence] in Blood by Automated countOrdered By: Eron Wood on 03-14-2023 Nucleated RBC Auto Ql (Bld) 0.1 /100{WBC} 0-0.5 [facility] Platelet mean volume Auto (B ld) [Entitic vol]Ordered By: Eron Wood on 03-14-2023 Platelet mean volume (Bld) [Entitic vol] 6.2 fL 6.3-10.7 [facility] Platelets Auto (Bld) [#/Vol] Ordered By: Eron Wood on 03-14-2023 Platelets (Bld) [#/Vol] 424 10*3/uL 150-450 [facility] Potassium [Moles/volume] in Serum or PlasmaOrdered By: Krunal Kelly on 03-14-2023 Potassium [Moles/Vol] 3.7 mmol/L 3.5-5.1 [facility] Protein [Mass/volume] in Ser um or PlasmaOrdered By: Krunal Kelly on 03-14-2023 Protein [Mass/Vol] 6.6 g/dL 6.4-8.9 [facility] RBC Auto (Bld) [#/Vol]Ordere d By: Eron Wood on 03-14-2023 RBC (Bld) [#/Vol] 3.65 10*6/uL 3.60-5.00 [facility] Serum or plasma albumin/glob ulin mass ratioOrdered By: Krunal Kelly on 03-14-2023 Albumin/Globulin [Mass ratio] 0.8 {ratio} [facility] Serum or plasma anion gap de terminationOrdered By: Krunal Kelly on 03-14-2023 Anion gap [Moles/Vol] 8.9 mmol/L 6.0-15.0 [facility] Sodium [Moles/volume] in Ser um or PlasmaOrdered By: Krunal Kelly on 03-14-2023 Sodium [Moles/Vol] 138 mmol/L 136-145 [facility] Urea nitrogen [Mass/volume] in Serum or PlasmaOrdered By: Krunal Kelly on 03-14-2023 Urea nitrogen [Mass/Vol] 6 mg/dL 7-25 [facility] WBC Auto (Bld) [#/Vol]Ordere d By: Eron Wood on 03-14-2023 WBC (Bld) [#/Vol] 9.6 10*3/uL 3.8-11.6 [facility] Basic Metabolic Panelon 02-14 Anion gap [Moles/Vol] 8.9 mmol/L Normal 6.0-15.0 [facility] Comment on above: Performed By: #### C BC, BMP, MG #### [facility] [address] Calcium [Mass/Vol] 8.4 mg/dL Low 8.6-10.3 [facility] Comment on above: Performed By: #### C BC, BMP, MG #### [facility] [address] Chloride [Moles/Vol] 109 mmol/L High 98-107 [facility] Comment on above: Performed By: #### C BC, BMP, MG #### [facility] [address] CO2 [Moles/Vol] 24.9 mmol/L Normal 21.0-31.0 [facility] Comment on above: Performed By: #### C BC, BMP, MG #### [address] Creatinine [Mass/Vol] 0.61 mg/dL Normal 0.60-1.20 [facility] Comment on above: Performed By: #### C BC, BMP, MG #### [place] [address] [place] Creatinine Clr Calc Pharmacy 132.97 [facility] Comment on above: Result Comment: PERF ORMED BY: [place] [address] PATHOLOGIST [employer] WAYNE WAKEFIELD M.D. Performed By: #### C BC, BMP, MG #### [place] [address] [place] GFR/1.73 sq M.predicted MDRD (S/P/Bld) [Vol rate/Area] mL/min/{1.73_m2} [facility] Comment on above: Performed By: #### C BC, BMP, MG #### [place] [address] [place] Glucose [Mass/Vol] 97 mg/dL Normal 70-100 [facility] Comment on above: Result Comment: [facility] Glucose Reference Range is dependent on time and content of last meal. Glucose of more than 200 mg/dL in a nonstressed, ambulatory subject supports the diagnosis of Diabetes Mellitus. ADA recommended reference range Performed By: #### C BC, BMP, MG #### [facility] [address] Potassium [Moles/Vol] 3.8 mmol/L Normal 3.5-5.1 [facility] Comment on above: Performed By: #### C BC, BMP, MG #### [facility] [address] Sodium [Moles/Vol] 139 mmol/L Normal 136-145 [facility] Comment on above: Performed By: #### C BC, BMP, MG #### [facility] [address] Urea nitrogen [Mass/Vol] 6 mg/dL Low 7-25 [facility] Comment on above: Performed By: #### C BC, BMP, MG #### [facility] [address] Complete Blood Count Auto Di ffon 03-13-2023 Basophils (Bld) [#/Vol] 0.0 10*3/uL Normal 0.0-0.2 [facility] Comment on above: Result Comment: PERF ORMED BY: [place] [address] PATHOLOGIST [employer] WAYNE WAKEFIELD M.D. Performed By: #### C BC, BMP, MG #### [facility] [address] [place] [address] [place] Basophils/100 WBC (Bld) 0.5 % Normal . [facility] Comment on above: Performed By: #### C BC, BMP, MG #### [facility] [address] Eosinophils (Bld) [#/Vol] 0.4 10*3/uL Normal 0.0-0.45 [facility] Comment on above: Performed By: #### C BC, BMP, MG #### [facility] [address] [place] [address] [place] Eosinophils/100 WBC (Bld) 4.5 % Normal . [facility] Comment on above: Performed By: #### C BC, BMP, MG #### [facility] [address] Erythrocyte distribution width (RBC) [Ratio] 15.7 % High 11.9-15.3 [facility] Comment on above: Performed By: #### C BC, BMP, MG #### [address] Hematocrit (Bld) [Volume fraction] 36.2 % Normal 34.0-46.4 [facility] Comment on above: Performed By: #### C BC, BMP, MG #### [facility] [address] Hemoglobin (Bld) [Mass/Vol] 12.1 g/dL Normal 11.8-15.4 [facility] Comment on above: Performed By: #### C BC, BMP, MG #### [address] Lymphocytes (Bld) [#/Vol] 1.5 10*3/uL Normal 1.00-4.8 [facility] Comment on above: Performed By: #### C BC, BMP, MG #### [facility] [address] [place] [address] [place] Lymphocytes/100 WBC (Bld) 16.5 % Normal . [facility] Comment on above: Performed By: #### C BC, BMP, MG #### [address] MCH (RBC) [Entitic mass] 32.3 pg Normal 24.7-34.3 [facility] Comment on above: Performed By: #### C BC, BMP, MG #### [facility] [address] [place] [address] MCV (RBC) [Entitic vol] 96.7 fL Normal 80-100 [facility] Comment on above: Performed By: #### C BC, BMP, MG #### [facility] [address] Mean Corpuscular HGB Conc 33.4 g/dL Normal 32.0-35.0 [facility] Comment on above: Performed By: #### C BC, BMP, MG #### [facility] [address] Monocytes (Bld) [#/Vol] 0.7 10*3/uL Normal 0.0-0.8 [facility] Comment on above: Performed By: #### C BC, BMP, MG #### [facility] [address] [place] [address] Monocytes/100 WBC (Bld) 8.0 % Normal . [facility] Comment on above: Performed By: #### C BC, BMP, MG #### [facility] [address] [place] [address] Neutrophils (Bld) [#/Vol] 6.6 10*3/uL Normal 1.8-7.7 [facility] Comment on above: Performed By: #### C BC, BMP, MG #### [facility] [address] [place] [address] Neutrophils/100 WBC (Bld) 70.5 % Normal . [facility] Comment on above: Performed By: #### C BC, BMP, MG #### [facility] [address] [place] [address] NRBC% 0.1 /100{WBC} Normal 0-0.5 [facility] Comment on above: Performed By: #### C BC, BMP, MG #### [facility] [address] Platelet mean volume (Bld) [Entitic vol] 6.6 fL Normal 6.3-10.7 [facility] Comment on above: Performed By: #### C BC, BMP, MG #### [facility] [address] [place] [address] [place] Platelets (Bld) [#/Vol] 398 10*3/uL Normal 150-450 [facility] Comment on above: Performed By: #### C BC, BMP, MG #### [address] RBC (Bld) [#/Vol] 3.75 10*6/uL Normal 3.60-5.00 [facility] Comment on above: Performed By: #### C BC, BMP, MG #### [address] WBC (Bld) [#/Vol] 9.3 10*3/uL Normal 3.8-11.6 [facility] Comment on above: Performed By: #### C BC, BMP, MG #### [address] Glucose Poct Glucometerson 0 03-13-2023 Commemt1 Glu2: Cleaned Meter Normal [facility] Comment on above: Result Comment: PERF ORMED BY: [place] [address] PATHOLOGIST [employer] WAYNE WAKEFIELD M.D. Performed By: #### V ANCT #### [address] Glucose [Mass/Vol] 152 mg/dL Normal [facility] Comment on above: Result Comment: [place] om Glucose Reference Range is dependent on time and content of last meal. Glucose of more than 200 mg/dL in a nonstressed, ambulatory subject supports the diagnosis of Diabetes Mellitus. Performed By: #### V ANCT #### [address] Glucose [Mass/Vol] 190 mg/dL Normal [facility] Comment on above: Result Comment: [place] om Glucose Reference Range is dependent on time and content of last meal. Glucose of more than 200 mg/dL in a nonstressed, ambulatory subject supports the diagnosis of Diabetes Mellitus. PERFORMED BY: [place] [address] PATHOLOGIST [employer] JIANLAN SUN M.D. Performed By: #### G LULS #### Point of Care testing , Glucose [Mass/Vol] 176 mg/dL Normal [facility] Comment on above: Result Comment: [facility] Glucose Reference Range is dependent on time and content of last meal. Glucose of more than 200 mg/dL in a nonstressed, ambulatory subject supports the diagnosis of Diabetes Mellitus. PERFORMED BY: [facility] [address] [place] [address] PATHOLOGIST [employer] WAYNE WAKEFIELD M.D. Performed By: #### G LULS #### Point of Care testing , Glucose [Mass/Vol] 107 mg/dL Normal [facility] Comment on above: Result Comment: [facility] Glucose Reference Range is dependent on time and content of last meal. Glucose of more than 200 mg/dL in a nonstressed, ambulatory subject supports the diagnosis of Diabetes Mellitus. PERFORMED BY: [facility] [address] [facility] [place] [address] PATHOLOGIST [employer] WAYNE WAKEFIELD M.D. Performed By: #### G LULS #### Point of Care testing , Glucose [Mass/Vol] 101 mg/dL Normal [facility] Comment on above: Result Comment: [facility] Glucose Reference Range is dependent on time and content of last meal. Glucose of more than 200 mg/dL in a nonstressed, ambulatory subject supports the diagnosis of Diabetes Mellitus. PERFORMED BY: [address] [place] [address] PATHOLOGIST [employer] WAYNE WAKEFIELD M.D. Performed By: #### G LULS #### Point of Care testing , Serum or plasma trough vanco mycin levelOrdered By: Eron Wood on 03-13-2023 Vancomycin trough [Mass/Vol] 16.8 ug/mL 10.0-20.0 [facility] Comment on above: Last dose: - Vancomycin,Troughon 03-13-20 Vancomycin,Trough 16.8 ug/mL Normal 10.0-20.0 [facility] Comment on above: Result Comment: Last dose: - PERFORMED BY: [facility] [address] [place] [address] PATHOLOGIST [employer] WAYNE WAKEFIELD M.D. Performed By: #### G LULS #### Point of Care testing , Ammoniaon 03-12-2023 Ammonia (P) [Moles/Vol] 31 umol/L Normal [facility] Comment on above: Result Comment: PERF ORMED BY: [facility] [address] [place] [address] PATHOLOGIST [employer] WAYNE WAKEFIELD M.D. Performed By: #### G LULS #### Point of Care testing , Ammonia [Moles/volume] in Pl asmaOrdered By: Víctor Stallings on 03-12-2023 Ammonia (P) [Moles/Vol] 31 umol/L [facility] Amphetamine Screen Ql (U)Ord ered By: Eron Wood on 03-12-2023 Amphetamines Ql (U) Negative Negative [facility] Barbiturates [Presence] in U rine by Screen methodOrdered By: Eron Wood on 03-12-2023 Barbiturates Screen Ql (U) Negative Negative [facility] Basic Metabolic Panelon 02-14 Anion gap [Moles/Vol] 9.5 mmol/L Normal 6.0-15.0 [facility] Comment on above: Performed By: #### G LULS #### Point of Care testing , Calcium [Mass/Vol] 8.2 mg/dL Low 8.6-10.3 [facility] Comment on above: Performed By: #### G LULS #### Point of Care testing , Chloride [Moles/Vol] 109 mmol/L High 98-107 [facility] Comment on above: Performed By: #### G LULS #### Point of Care testing , CO2 [Moles/Vol] 23.3 mmol/L Normal 21.0-31.0 [facility] Comment on above: Performed By: #### G LULS #### Point of Care testing , Creatinine [Mass/Vol] 0.73 mg/dL Normal 0.60-1.20 [facility] Comment on above: Performed By: #### G LULS #### Point of Care testing , Creatinine Clr Calc Pharmacy 111.29 [facility] Comment on above: Result Comment: PERF ORMED BY: [facility] [address] [place] [address] PATHOLOGIST [employer] WAYNE WAKEFIELD M.D. Performed By: #### G LULS #### Point of Care testing , GFR/1.73 sq M.predicted MDRD (S/P/Bld) [Vol rate/Area] mL/min/{1.73_m2} [facility] Comment on above: Performed By: #### G LULS #### Point of Care testing , Glucose [Mass/Vol] 62 mg/dL Low 70-100 [facility] Comment on above: Result Comment: [place] Glucose Reference Range is dependent on time and content of last meal. Glucose of more than 200 mg/dL in a nonstressed, ambulatory subject supports the diagnosis of Diabetes Mellitus. ADA recommended reference range Performed By: #### G LULS #### Point of Care testing , Potassium [Moles/Vol] 3.8 mmol/L Normal 3.5-5.1 [facility] Comment on above: Performed By: #### G LULS #### Point of Care testing , Sodium [Moles/Vol] 138 mmol/L Normal 136-145 [facility] Comment on above: Performed By: #### G LULS #### Point of Care testing , Urea nitrogen [Mass/Vol] 8 mg/dL Normal 7-25 [facility] Comment on above: Performed By: #### G LULS #### Point of Care testing , Benzodiazepines Screen Ql (U )Ordered By: Eron Wood on 03-12-2023 Benzodiazepines Ql (U) Negative Negative [facility] Benzoylecgonine [Presence] i n Urine by Screen methodOrdered By: Eron Wood on 03-12-2023 Benzoylecgonine Screen Ql (U) Negative Negative [facility] CT head/brain wo conon 03-12 CT head/brain wo con [facility] Main [address] [address] [address] Scan Report Signed Patient: Christiane Perez MR#: [id number] 2 : 1975 Acct:[id number] Age/Sex: 48 / F ADM Date: 03/10/23 Loc: Room: [address] [place] [address] Type: ADM IN Attending Dr: Eron Wood [...] Vick Eden M.D.03/12/2023 4:47 PM Dictation Location: [place] [address] Transcribed By: [facility] 03/12/23 1647 Dictated By: Vick Eden II, MD 03/12/23 1642 Signed By: 03/12/23 164 Normal [facility] Calciumon 03-12-2023 Calcium [Mass/Vol] 8.4 mg/dL Low 8.6-10.3 [facility] Comment on above: Result Comment: PERF ORMED BY: [address] [address] PATHOLOGIST [employer] WAYNE WAKEFIELD M.D. Performed By: #### G MARE #### Point of Care testing , Cannabinoids [Presence] in U rine by Screen methodOrdered By: Eron Wood on 03-12-2023 Cannabinoids Screen Ql (U) Negative Negative [facility] Comment on above: These are unconfirme d results and should not be used for legal purposes. Drug Cut-Off Concentration: AMPH 1000 ng/mL HANNAH 200 ng/mL JENNIFER 200 ng/mL COCM 300 ng/mL OP 300 ng/mL PCP 25 ng/mL THC 20 ng/mL Complete Blood Count Auto Di ffon 03-12-2023 Basophils (Bld) [#/Vol] 0.1 10*3/uL Normal 0.0-0.2 [facility] Comment on above: Result Comment: PERF ORMED BY: [facility] [address] [place] [address] PATHOLOGIST [employer] WAYNE WAKEFIELD M.D. Performed By: #### G LULS #### Point of Care testing , Basophils/100 WBC (Bld) 0.7 % Normal . [facility] Comment on above: Performed By: #### G LULS #### Point of Care testing , Eosinophils (Bld) [#/Vol] 0.3 10*3/uL Normal 0.0-0.45 [facility] Comment on above: Performed By: #### G LULS #### Point of Care testing , Eosinophils/100 WBC (Bld) 2.9 % Normal . [facility] Comment on above: Performed By: #### G LULS #### Point of Care testing , Erythrocyte distribution width (RBC) [Ratio] 15.8 % High 11.9-15.3 [facility] Comment on above: Performed By: #### G LULS #### Point of Care testing , Hematocrit (Bld) [Volume fraction] 35.6 % Normal 34.0-46.4 [facility] - [place] Comment on above: Performed By: #### G LULS #### Point of Care testing , Hemoglobin (Bld) [Mass/Vol] 11.8 g/dL Normal 11.8-15.4 [facility] Comment on above: Performed By: #### G MARYLS #### Point of Care testing , Lymphocytes (Bld) [#/Vol] 1.3 10*3/uL Normal 1.00-4.8 [facility] Comment on above: Performed By: #### G MARYLS #### Point of Care testing , Lymphocytes/100 WBC (Bld) 13.5 % Normal . [facility] Comment on above: Performed By: #### G MARYLS #### Point of Care testing , MCH (RBC) [Entitic mass] 32.4 pg Normal 24.7-34.3 [facility] Comment on above: Performed By: #### G MARYLS #### Point of Care testing , MCV (RBC) [Entitic vol] 97.7 fL Normal 80-100 [facility] Comment on above: Performed By: #### Sophia HERNANDEZLS #### Point of Care testing , Mean Corpuscular HGB Conc 33.1 g/dL Normal 32.0-35.0 [facility] Comment on above: Performed By: #### G MARE #### Point of Care testing , Monocytes (Bld) [#/Vol] 0.9 10*3/uL High 0.0-0.8 [facility] Comment on above: Performed By: #### G MARYLS #### Point of Care testing , Monocytes/100 WBC (Bld) 9.2 % Normal . [facility] Comment on above: Performed By: #### G MARYLS #### Point of Care testing , Neutrophils (Bld) [#/Vol] 7.2 10*3/uL Normal 1.8-7.7 [facility] Comment on above: Performed By: #### G MARYLS #### Point of Care testing , Neutrophils/100 WBC (Bld) 73.7 % Normal . [facility] Comment on above: Performed By: #### G MARYLS #### Point of Care testing , NRBC% 0.1 /100{WBC} Normal 0-0.5 [facility] Comment on above: Performed By: #### G LULS #### Point of Care testing , Platelet mean volume (Bld) [Entitic vol] 6.8 fL Normal 6.3-10.7 [facility] Comment on above: Performed By: #### G LULS #### Point of Care testing , Platelets (Bld) [#/Vol] 342 10*3/uL Normal 150-450 [facility] Comment on above: Performed By: #### G LULS #### Point of Care testing , RBC (Bld) [#/Vol] 3.64 10*6/uL Normal 3.60-5.00 [facility] Comment on above: Performed By: #### G LULS #### Point of Care testing , WBC (Bld) [#/Vol] 9.8 10*3/uL Normal 3.8-11.6 [facility] Comment on above: Performed By: #### G LULS #### Point of Care testing , Drug Screen,Urineon 03-12-20 23 Amphetamine Screen,Urine Negative Normal Negative [facility] Comment on above: Performed By: #### C BC, BMP, MG #### [facility] [address] [place] [address] [place] Barbiturate Screen,Urine Negative Normal Negative [facility] Comment on above: Performed By: #### C BC, BMP, MG #### [facility] [address] [place] [address] [place] Benzodiazepines Screen,Urine Negative Normal Negative [facility] Comment on above: Performed By: #### C BC, BMP, MG #### [facility] [address] [place] [address] [place] Cannabinoid Screen,Urine Negative Normal Negative [facility] Comment on above: Result Comment: Thes e are unconfirmed results and should not be used for legal purposes. Drug Cut-Off Concentration: AMPH 1000 ng/mL HANNAH 200 ng/mL JENNIFER 200 ng/mL COCM 300 ng/mL OP 300 ng/mL PCP 25 ng/mL THC 20 ng/mL PERFORMED BY: [place] [address] PATHOLOGIST [employer] WAYNE WAKEFIELD M.D. Performed By: #### C BC, BMP, MG #### [facility] [address] Cocaine Screen,Urine Negative Normal Negative [facility] Comment on above: Performed By: #### C BC, BMP, MG #### [facility] [address] [place] [address] [place] Opiate Screen,Urine Positive High Negative [facility] Comment on above: Performed By: #### C BC, BMP, MG #### [facility] [address] [place] [address] Phencyclidine Screen,Urine Negative Normal Negative [facility] Comment on above: Performed By: #### C BC, BMP, MG #### [address] Glucose Poct Glucometerson 0 03-12-2023 Commemt1 Glu2: Cleaned Meter Normal [facility] Comment on above: Result Comment: PERF ORMED BY: [place] [address] PATHOLOGIST [employer] WAYNE WAKEFIELD M.D. Performed By: #### C BC, BMP, MG #### [address] Glucose [Mass/Vol] 199 mg/dL Normal [facility] Comment on above: Result Comment: [facility] Glucose Reference Range is dependent on time and content of last meal. Glucose of more than 200 mg/dL in a nonstressed, ambulatory subject supports the diagnosis of Diabetes Mellitus. Performed By: #### C BC, BMP, MG #### [facility] [address] [place] [address] Glucose [Mass/Vol] 158 mg/dL Normal [facility] Comment on above: Result Comment: [facility] Glucose Reference Range is dependent on time and content of last meal. Glucose of more than 200 mg/dL in a nonstressed, ambulatory subject supports the diagnosis of Diabetes Mellitus. PERFORMED BY: [facility] [address] [facility] [place] [address] PATHOLOGIST [employer] WAYNE WAKEFIELD M.D. Performed By: #### G LULS #### Point of Care testing , Glucose [Mass/Vol] 152 mg/dL Normal [facility] Comment on above: Result Comment: [place] Glucose Reference Range is dependent on time and content of last meal. Glucose of more than 200 mg/dL in a nonstressed, ambulatory subject supports the diagnosis of Diabetes Mellitus. PERFORMED BY: [address] [place] [address] PATHOLOGIST [employer] WAYNE WAKEFIELD M.D. Performed By: #### G LULS #### Point of Care testing , Commemt1 Glu2: Cleaned Meter Normal [facility] Comment on above: Result Comment: PERF ORMED BY: [address] [place] [address] PATHOLOGIST [employer] WAYNE WAKEFIELD M.D. Performed By: #### G LULS #### Point of Care testing , Glucose [Mass/Vol] 75 mg/dL Normal [facility] Comment on above: Result Comment: [facility] Glucose Reference Range is dependent on time and content of last meal. Glucose of more than 200 mg/dL in a nonstressed, ambulatory subject supports the diagnosis of Diabetes Mellitus. Performed By: #### G LULS #### Point of Care testing , Opiates [Presence] in Urine by Screen methodOrdered By: Eron Wood on 03-12-2023 Opiates Screen Ql (U) Positive Negative [facility] Phencyclidine Screen Ql (U)O rdered By: Eron Wood on 03-12-2023 Phencyclidine Ql (U) Negative Negative [facility] Vancomycin [Mass/volume] in Serum or Plasma --peakOrdered By: Eron Wood on 03-12-2023 Vancomycin peak [Mass/Vol] 14.6 ug/mL 20.0-40.0 [facility] Comment on above: Last dose: - Vancomycin,Peakon 03-12-2023 Vancomycin,Peak 14.6 ug/mL Low 20.0-40.0 [facility] Comment on above: Order Comment: Comme nt ?DRAW 1 HOUR AFTER INFUSION COMPLETES Date of last dose?: [id number] Time of last dose?: 1500 Result Comment: Last dose: - PERFORMED BY: [place] [address] PATHOLOGIST [employer] WAYNE WAKEFIELD M.D. Performed By: #### G LULS #### Point of Care testing , Vancomycin,Troughon 03-12-20 Vancomycin,Trough 17.8 ug/mL Normal 10.0-20.0 [facility] Comment on above: Result Comment: Last dose: - PERFORMED BY: [place] [address] PATHOLOGIST [employer] WAYNE WAKEFIELD M.D. Performed By: #### V ANCT #### [address] XR chest 1V portableon 03-12 XR chest 1V portable [facility] [place] [address] [place] [address] XRay Report Signed Patient: Christiane Perez MR#: [id number] 2 : 1975 Acct:[id number] Age/Sex: 48 / F ADM Date: 03/10/23 Loc: Room: [address] [place] [address] Type: ADM IN Attending Dr: Eron Wood [...] II, MD 03/12/231616 Signed By: 03/12/23 161 [facility] XR chest 1V portable [facility] [place] [address] XRay Report Signed Patient: Christiane Perez MR#: [id number] 2 : 1975 Acct:[id number] Age/Sex: 48 / F ADM Date: 03/10/23 Loc: Room: [address] [place] [address] Type: ADM IN Attending Dr: Eron Wood [...] MD 03/12/23 135 Signed By: 03/12/23 135 [facility] AFB Specimen Processingon AFB Specimen Processing Concentration Negative Performed at: [address] [id number] Photographic Spotter: Juan Jennings PhD, Phone: [phone] Negative No acid fast bacilli isolated after 6 weeks. Performed at: [address] [id number] Photographic Spotter: Juan Jennings PhD, Phone: [phone] PERFORMED BY: [place] [address] PATHOLOGIST [employer] WAYNE WAKEFIELD M.D. [facility] Comment on above: [...] Cocci 1+ Yeast Like Elements PERFORMED BY: [place] [address] PATHOLOGIST [employer] WAYNE WAKEFIELD M.D. [facility] Comment on above: Performed By: #### A ERC #### [facility] [address] [place] [address] [place] Bacteria identified Aer cx N om (Bronch spec)Ordered By: Errol Nicole on 03-11-2023 Bronchial Culture Janine tropicalis [facility] Bronchial Culture Janine albicans F [facility] Basic Metabolic Panelon 02-14 Anion gap [Moles/Vol] 8.9 mmol/L Normal 6.0-15.0 [facility] Comment on above: Performed By: #### C BC, BMP, MG #### [facility] [address] [place], [place] [id number] [place] Calcium [Mass/Vol] 8.4 mg/dL Low 8.6-10.3 [facility] Comment on above: Performed By: #### C BC, BMP, MG #### [facility] [address] [place], [place] [id number] [place] Chloride [Moles/Vol] 107 mmol/L Normal 98-107 [facility] Comment on above: Performed By: #### C BC, BMP, MG #### [facility] [address] [place], [place] [id number] [place] CO2 [Moles/Vol] 25.0 mmol/L Normal 21.0-31.0 [facility] Comment on above: Performed By: #### C BC, BMP, MG #### [facility] [address] [place] [address] [place] Creatinine [Mass/Vol] 0.72 mg/dL Normal 0.60-1.20 [facility] Comment on above: Performed By: #### C BC, BMP, MG #### [facility] [address] [place] [address] [place] Creatinine Clr Calc Pharmacy 112.35 [facility] Comment on above: Performed By: #### C BC, BMP, MG #### [facility] [address] [place] [address] [place] GFR/1.73 sq M.predicted MDRD (S/P/Bld) [Vol rate/Area] mL/min/{1.73_m2} [facility] Comment on above: Performed By: #### C BC, BMP, MG #### [facility] [address] Glucose [Mass/Vol] 120 mg/dL High 70-100 [facility] Comment on above: Result Comment: [facility] Glucose Reference Range is dependent on time and content of last meal. Glucose of more than 200 mg/dL in a nonstressed, ambulatory subject supports the diagnosis of Diabetes Mellitus. ADA recommended reference range Performed By: #### C BC, BMP, MG #### [facility] [address] [place] [address] [place] Potassium [Moles/Vol] 3.9 mmol/L Normal 3.5-5.1 [facility] Comment on above: Performed By: #### C BC, BMP, MG #### [facility] [address] [place] [address] [place] Sodium [Moles/Vol] 137 mmol/L Normal 136-145 [facility] Comment on above: Performed By: #### C BC, BMP, MG #### [facility] [address] [place] [address] [place] Urea nitrogen [Mass/Vol] 10 mg/dL Normal 7-25 [facility] Comment on above: Performed By: #### C BC, BMP, MG #### [address] Bronch Cultureon 03-11-2023 Bronch Culture ORGANISM: Janine tropicalis (O:CANTRO) Quantity of Growth Light Growth ORGANISM: Janine albicans (O:CANALB) Quantity of Growth Light Growth PERFORMED BY: [place] [address] PATHOLOGIST [employer] WAYNE WAKEFIELD M.D. Normal [facility] Comment on above: Performed By: #### G LULS #### Point of Care testing , Complete Blood Count Auto Di ffon 03-11-2023 Basophils (Bld) [#/Vol] 0.0 10*3/uL Normal 0.0-0.2 [facility] Comment on above: Result Comment: PERF ORMED BY: [place] [address] PATHOLOGIST [employer] WAYNE WAKEFIELD M.D. Performed By: #### C BC, BMP, MG #### [address] Basophils/100 WBC (Bld) 0.3 % Normal . [facility] Comment on above: Performed By: #### C BC, BMP, MG #### [address] Eosinophils (Bld) [#/Vol] 0.2 10*3/uL Normal 0.0-0.45 [facility] Comment on above: Performed By: #### C BC, BMP, MG #### [address] Eosinophils/100 WBC (Bld) 2.1 % Normal . [facility] Comment on above: Performed By: #### C BC, BMP, MG #### [address] Erythrocyte distribution width (RBC) [Ratio] 15.9 % High 11.9-15.3 [facility] Comment on above: Performed By: #### C BC, BMP, MG #### [facility] [address] Hematocrit (Bld) [Volume fraction] 36.2 % Normal 34.0-46.4 [facility] Comment on above: Performed By: #### C JOE SANABRIA, MG #### [address] Hemoglobin (Bld) [Mass/Vol] 11.9 g/dL Normal 11.8-15.4 [facility] Comment on above: Performed By: #### C DANIELE BMP, MG #### [address] Lymphocytes (Bld) [#/Vol] 1.1 10*3/uL Normal 1.00-4.8 [facility] Comment on above: Performed By: #### C DANIELE BMP, MG #### [address] Lymphocytes/100 WBC (Bld) 9.5 % Normal . [facility] Comment on above: Performed By: #### C DANIELE BMP, MG #### [address] MCH (RBC) [Entitic mass] 31.9 pg Normal 24.7-34.3 [facility] Comment on above: Performed By: #### C DANIELE BMP, MG #### [address] MCV (RBC) [Entitic vol] 97.5 fL Normal 80-100 [facility] Comment on above: Performed By: #### C DANIELE BMP, MG #### [address] Mean Corpuscular HGB Conc 32.8 g/dL Normal 32.0-35.0 [facility] Comment on above: Performed By: #### C BC BMP, MG #### [address] Monocytes (Bld) [#/Vol] 1.0 10*3/uL High 0.0-0.8 [facility] Comment on above: Performed By: #### C BC BMP, MG #### [facility] [address] [place] [address] [place] Monocytes/100 WBC (Bld) 8.9 % Normal . [facility] Comment on above: Performed By: #### C BC, BMP, MG #### [facility] [address] [place] [address] [place] Neutrophils (Bld) [#/Vol] 9.3 10*3/uL High 1.8-7.7 [facility] Comment on above: Performed By: #### C BC, BMP, MG #### [facility] [address] Neutrophils/100 WBC (Bld) 79.2 % Normal . [facility] Comment on above: Performed By: #### C BC, BMP, MG #### [facility] [address] NRBC% 0.0 /100{WBC} Normal 0-0.5 [facility] Comment on above: Performed By: #### C BC, BMP, MG #### [facility] [address] [place] [address] [place] Platelet mean volume (Bld) [Entitic vol] 7.1 fL Normal 6.3-10.7 [facility] Comment on above: Performed By: #### C BC, BMP, MG #### [facility] [address] [place] [address] [place] Platelets (Bld) [#/Vol] 360 10*3/uL Normal 150-450 [facility] Comment on above: Performed By: #### C BC, BMP, MG #### [facility] [address] [place] [address] [place] RBC (Bld) [#/Vol] 3.72 10*6/uL Normal 3.60-5.00 [facility] Comment on above: Performed By: #### C BC, BMP, MG #### [facility] [address] [place] [address] [place] WBC (Bld) [#/Vol] 11.7 10*3/uL High 3.8-11.6 [facility] Comment on above: Performed By: #### C BC, BMP, MG #### [facility] [address] Fungal cultureOrdered By: Corrina Nicole on 03-11-2023 Fungus identified Cx Nom (Unsp spec) [facility] Fungus # 2 identified in Uns pecified specimen by CultureOrdered By: Errol Nicole on 03-11-2023 Fungus identified # 2 Cx Nom (Unsp spec) [facility] Fungus # 3 identified in Uns pecified specimen by CultureOrdered By: Errol Nicole on 03-11-2023 Fungus identified # 3 Cx Nom (Unsp spec) [facility] Fungus (Mycology) Cultureon 03-11-2023 Fungus (Mycology) Culture Preliminary report Final report Janine glabrata Janine tropicalis Performed at: [place] [address] Photographic Spotter: Juan Jennings PhD, Phone: [phone] Janine albicans Performed at: [place] [address] Photographic Spotter: Juan Jennings PhD, Phone: [phone] PERFORMED BY: [place] [address] PATHOLOGIST [employer] WAYNE WAKEFIELD M.D. [facility] Comment on above: Performed By: #### G LULS #### Point of Care testing , Fungus (Mycology) Result 2on 03-11-2023 Fungus (Mycology) Result 2 Janine tropicalis Performed at: [place] [address] Photographic Spotter: Juan Jennings PhD, Phone: [phone] Janine albicans Performed at: [place] [address] Photographic Spotter: Juan Jennings PhD, Phone: [phone] PERFORMED BY: [facility] [address] [place] [address] PATHOLOGIST [employer] WAYNE WAKEFIELD M.D. [facility] Comment on above: Performed By: #### G LULS #### Point of Care testing , Glucose Poct Glucometerson 0 03-11-2023 Commemt1 Glu2: Cleaned Meter [facility] Comment on above: Result Comment: PERF ORMED BY: [address] [place] [address] PATHOLOGIST [employer] WAYNE WAKEFIELD M.D. Performed By: #### G LULS #### Point of Care testing , Glucose [Mass/Vol] 121 mg/dL Normal [facility] Comment on above: Result Comment: [place] om Glucose Reference Range is dependent on time and content of last meal. Glucose of more than 200 mg/dL in a nonstressed, ambulatory subject supports the diagnosis of Diabetes Mellitus. Performed By: #### G LULS #### Point of Care testing , Commemt1 Glu2: Cleaned Meter [facility] Comment on above: Result Comment: PERF ORMED BY: [place] [address] PATHOLOGIST [employer] WAYNE WAKEFIELD M.D. Performed By: #### G LULS #### Point of Care testing , Glucose [Mass/Vol] 80 mg/dL Normal [facility] Comment on above: Result Comment: [place] om Glucose Reference Range is dependent on time and content of last meal. Glucose of more than 200 mg/dL in a nonstressed, ambulatory subject supports the diagnosis of Diabetes Mellitus. Performed By: #### G LULS #### Point of Care testing , Glucose [Mass/Vol] 134 mg/dL Normal [facility] Comment on above: Result Comment: [place] om Glucose Reference Range is dependent on time and content of last meal. Glucose of more than 200 mg/dL in a nonstressed, ambulatory subject supports the diagnosis of Diabetes Mellitus. PERFORMED BY: [address] [place] [address] PATHOLOGIST [employer] WAYNE WAKEFIELD M.D. Performed By: #### G LULS #### Point of Care testing , Commemt1 [facility] Comment on above: Result Comment: Glu2 : WILL NOTIFY DR/RN PERFORMED BY: [address] [place] [address] PATHOLOGIST [employer] WAYNE WAKEFIELD M.D. Performed By: #### G LULS #### Point of Care testing , Glucose [Mass/Vol] 58 mg/dL Off scale low [facility] Comment on above: Result Comment: [place] om Glucose Reference Range is dependent on time and content of last meal. Glucose of more than 200 mg/dL in a nonstressed, ambulatory subject supports the diagnosis of Diabetes Mellitus. Performed By: #### G LULS #### Point of Care testing , Commemt1 Glu2: Cleaned Meter Normal [facility] Comment on above: Result Comment: PERF ORMED BY: [address] [place] [address] PATHOLOGIST [employer] WAYNE WAKEFIELD M.D. Performed By: #### G LULS #### Point of Care testing , Glucose [Mass/Vol] 249 mg/dL Normal [facility] Comment on above: Result Comment: [place] om Glucose Reference Range is dependent on time and content of last meal. Glucose of more than 200 mg/dL in a nonstressed, ambulatory subject supports the diagnosis of Diabetes Mellitus. Performed By: #### G LULS #### Point of Care testing , Glucose [Mass/Vol] 138 mg/dL Normal [facility] Comment on above: Result Comment: [place] om Glucose Reference Range is dependent on time and content of last meal. Glucose of more than 200 mg/dL in a nonstressed, ambulatory subject supports the diagnosis of Diabetes Mellitus. PERFORMED BY: [address] [place] [address] PATHOLOGIST [employer] WAYNE WAKEFIELD M.D. Performed By: #### G LULS #### Point of Care testing , Gram Stainon 03-11-2023 Microscopic observation Gram stain Nom (Unsp spec) Gram Stain Result 1+ White Blood Cells 1+ Yeast Like Elements No Bacteria Seen Fungus Smear Results 1+ Yeast Like Elements Seen PERFORMED BY: [address] [place] [id number] PATHOLOGIST [employer] WAYNE WAKEFIELD M.D. [facility] Comment on above: Performed By: #### G MARE #### Point of Care testing , [place] 03-11-2023 L ----- Specimen: [id number] Received: 03/12/23 Status: DAY St Num: [id number] Spec Type: Cytology Subm Dr: Errol Nicole MD Tissues: A BRONWASH ([facility]) Procedures: HE/2, Gross/Micro L4, Cyto Prepstain, PAPSTN Age/ Patient Sex Location Account Attending Physician Christiane Perez 48/F 3T [id number] Krunal Kelly DO SPEC NUM: [id number] RECD: 03/12/23 STATUS: DAY ST NUM: [id number] HARRY: 03/11/[address]: Errol Nicole MD ENTERED: 03/12/23 [facility] DR: SPEC TYPE: Cytology DEPT: CN ENTERED BY: [id number] RECV BY: [id number] ORDERED: HE/2, Gross/Micro L4, Cyto Prepstain, PAPSTN ORDERED: HE/2, Gross/Micro L4, Cyto Prepstain, PAPSTN Pathological Diagnosis Bronchial wash, cytology: - Negative for malignancy, inflammatory process - See note and pathology report [id number] Note: Smear and cell block shows many [...] [id number] Received: 03/12/23 Status: DAY Martioscar Num: [id number] Spec Type: Cytology Subm Dr: Errol Nicole MD Tissues: A BRONWASH ([facility]) Procedures: HE/2, Gross/Micro L4, Cyto Prepstain, PAPSTN Patient: Christiane Perez Neto [id number] (Continued) Signed (signature on file) Gregory Aranda MD 03/17/23820 [facility] L ----- Specimen: [id number] Received: 03/11/23 Status: DAY St Num: [id number] Spec Type: Surgical Subm Dr: Errol Nicole MD Tissues: A Lung - Transbroncial Biopsy ([facility]) Procedures: ISIDRA SONG, HE/5, Gross/Micro L4, GMS II ARMANI Oquendo Age/ Patient Sex Location Account Attending Physician Christiane Perez 48/F 3T [id number] Krunal Kelly DO SPEC NUM: [id number] RECD: 03/11/23 STATUS: DAY REOscar NUM: [id number] HARRY: 03/11/23- DR: Errol Nicole MD ENTERED: 03/11/23 RAKESH [...] negative. This case will send to the [facility] for consultation and second opinion and the result will be reported as an addendum. Specimen: [id number] Received: 03/11/23 Status: DAY St Num: [id number] Spec Type: Surgical Subm Dr: Errol Nicole MD Tissues: A Lung - Transbroncial Biopsy ([facility]) Procedures: PAS - LGRN, HE/5, Gross/Micro L4, GMS II Dark, AFB Patient: PerezChristiane [id number] (Continued) Specimen: [id number] Received: 03/11/23 (Continued) Signed (signature on file) Gregory Aranda MD 03/17/2312 Specimen: [id number] Received: 03/11/23 Status: DAY St Num: [id number] Spec Type: Surgical Subm Dr: Errol Nicole MD Tissues: A Lung - Transbroncial Biopsy ([facility]) Procedures: ISIDRA - NOHEMI, HE/5, Gross/Micro L4, GMS II Dark, AFB Patient: Christiane Perez [id number] (Continued) Specimen: [id number] Received: 03/11/23 (Continued) Clinical Information Abscess Gross Description Received in formalin labeled with the patient's name, date of and [facility] biopsies are multiple villegas tissues measuring 1.5 x 0.3 x 0.2 cm in aggregate. Entirely submitted in one cassette labeled A1. Microscopic Description Two H E slides reviewed. The microscopic examination confirms the diagnosis. CPT Codes 75684 Specimen: [id number] Received: 03/11/23 Status: DAY Martioscar Num: [id number] Spec Type: Surgical Subm Dr: Errol Nicole MD Tissues: A Lung - Transbroncial Biopsy ([facility] BX) Procedures: ISIDRA SONG, HE/5, Gross/Micro L4, GMS II ARMANI Oquendo Patient: Christiane Perez [id number] (Continued) Signed (signature on file) Gregory Aranda MD 03/17/23811 Normal [facility] Magnesiumon 03-11-2023 Magnesium [Mass/Vol] 1.9 mg/dL Normal 1.9-2.7 [facility] Comment on above: Result Comment: PERF ORMED BY: [place] [address] PATHOLOGIST [employer] WAYNE WAKEFIELD M.D. Performed By: #### C BC, BMP, MG #### [facility] [address] [place], [place] [id number] [facility] Magnesium [Mass/volume] in S kaitlin or PlasmaOrdered By: Eron Wood on 03-11-2023 Magnesium [Mass/Vol] 1.9 mg/dL 1.9-2.7 [facility] Vancomycin,Peakon 03-11-2023 Vancomycin,Peak 12.5 ug/mL Low 20.0-40.0 [facility] Comment on above: Order Comment: Comme nt ?DRAW 1 HOUR AFTER INFUSION COMPLETES Date of last dose?: [id number] Time of last dose?: 1500 Result Comment: Last dose: - PERFORMED BY: [place] [address] PATHOLOGIST [employer] WAYNE WAKEFIELD M.D. Performed By: #### G MARE #### Point of Care testing , Activated partial thrombopla stin time (aPTT) in platelet poor plasma by coagulation aOrdered By: Lavell Salazar on 03-10-2023 aPTT Coag (PPP) [Time] 40.2 s 25.1-36.5 [facility] B-Type Natriuretic Peptideon 03-10-2023 Natriuretic peptide B (Bld) [Mass/Vol] 46.0 pg/mL Normal 5-100 [facility] Comment on above: Result Comment: PERF ORMED BY: [place] [address] PATHOLOGIST [employer] WAYNE WAKEFIELD M.D. Performed By: #### C BC, BMP, MG #### [facility] [address] [place], [place] [id number] [facility] Bacterial blood cultureOrder ed By: Lavell Salazar on 03-10-2023 Bacteria identified Cx Nom (Bld) NO GROWTH 5 DAYS [facility] Basic Metabolic Panelon 02-14 Anion gap [Moles/Vol] 11.3 mmol/L Normal 6.0-15.0 [facility] Comment on above: Performed By: #### C BC, BMP, MG #### [facility] [address] Calcium [Mass/Vol] 8.9 mg/dL Normal 8.6-10.3 [facility] Comment on above: Performed By: #### C BC, BMP, MG #### [facility] [address] [place] [address] [place] Chloride [Moles/Vol] 103 mmol/L Normal 98-107 [facility] Comment on above: Performed By: #### C BC, BMP, MG #### [facility] [address] CO2 [Moles/Vol] 24.2 mmol/L Normal 21.0-31.0 [facility] Comment on above: Performed By: #### C BC, BMP, MG #### [facility] [address] [place] [address] [place] Creatinine [Mass/Vol] 0.70 mg/dL Normal 0.60-1.20 [facility] Comment on above: Performed By: #### C BC, BMP, MG #### [facility] [address] [place] [address] [place] Creatinine Clr Calc Pharmacy 117.33 [facility] Comment on above: Result Comment: PERF ORMED BY: [place] [address] PATHOLOGIST [employer] WAYNE WAKEFIELD M.D. Performed By: #### C BC, BMP, MG #### [facility] [address] [place] [address] [place] GFR/1.73 sq M.predicted MDRD (S/P/Bld) [Vol rate/Area] mL/min/{1.73_m2} [facility] Comment on above: Performed By: #### C BC BMP, MG #### [facility] [address] Glucose [Mass/Vol] 69 mg/dL Low 70-100 [facility] Comment on above: Result Comment: [place] Glucose Reference Range is dependent on time and content of last meal. Glucose of more than 200 mg/dL in a nonstressed, ambulatory subject supports the diagnosis of Diabetes Mellitus. ADA recommended reference range Performed By: #### C BC BMP, MG #### [address] Potassium [Moles/Vol] 3.5 mmol/L Normal 3.5-5.1 [facility] Comment on above: Performed By: #### C BC BMP, MG #### [address] Sodium [Moles/Vol] 135 mmol/L Low 136-145 [facility] Comment on above: Performed By: #### C BC BMP, MG #### [address] Urea nitrogen [Mass/Vol] 10 mg/dL Normal 7-25 [facility] Comment on above: Performed By: #### C BC BMP, MG #### [place] [address] [place] Bilirubin.direct [Mass/volum e] in Serum or PlasmaOrdered By: Lavell Salazar on 03-10-2023 Bilirubin.direct [Mass/Vol] 0.20 mg/dL 0.03-0.18 [facility] Blood Cultureon 03-10-2023 Bacteria identified Cx Nom (Bld) NO GROWTH 5 DAYS PERFORMED BY: [place] [address] PATHOLOGIST [employer] WAYNE WAKEFIELD M.D. [facility] Comment on above: Performed By: #### C BC, BMP, MG #### [address] Bacteria identified Cx Nom (Bld) NO GROWTH 5 DAYS PERFORMED BY: [address] [place] [address] PATHOLOGIST [employer] WAYNE WAKEFIELD M.D. [facility] Comment on above: Performed By: #### C DANIELE, JOE, #### [place] [id number] [facility] CT chest w conon 03-10-2023 CT chest w [facility] [place] [address] [place] [address] CT Scan Report Signed Patient: Christiane Perez MR#: [id number] 2 : 1975 Acct:[id number] Age/Sex: 48 / F ADM Date: 03/10/23 Loc: ER Room: Type: [facility] ER Attending Dr: Copies to: Lavell [...] Giovanny Cleveland M.D.03/10/2023 2:30 PM Dictation Location: [place] [address] Transcribed By: [facility] 03/10/23 1430 Dictated By: Giovanny Cleveland DO 03/10/23 1421 Signed By: 03/10/23 1430 Normal [facility] Complete Blood Count Auto Di ffon 03-10-2023 Basophils (Bld) [#/Vol] 0.0 10*3/uL Normal 0.0-0.2 [facility] Comment on above: Result Comment: PERF ORMED BY: [facility] [address] [place] [address] PATHOLOGIST [employer] WAYNE WAKEFIELD M.D. Performed By: #### G LULS #### Point of Care testing , Basophils/100 WBC (Bld) 0.2 % Normal . [facility] Comment on above: Performed By: #### G LULS #### Point of Care testing , Eosinophils (Bld) [#/Vol] 0.2 10*3/uL Normal 0.0-0.45 [facility] Comment on above: Performed By: #### G LULS #### Point of Care testing , Eosinophils/100 WBC (Bld) 1.1 % Normal . [facility] Comment on above: Performed By: #### G LULS #### Point of Care testing , Erythrocyte distribution width (RBC) [Ratio] 15.4 % High 11.9-15.3 [facility] Comment on above: Performed By: #### G LULS #### Point of Care testing , Hematocrit (Bld) [Volume fraction] 38.1 % Normal 34.0-46.4 [facility] Comment on above: Performed By: #### G LULS #### Point of Care testing , Hemoglobin (Bld) [Mass/Vol] 12.8 g/dL Normal 11.8-15.4 [facility] Comment on above: Performed By: #### G LULS #### Point of Care testing , Lymphocytes (Bld) [#/Vol] 1.0 10*3/uL Normal 1.00-4.8 [facility] Comment on above: Performed By: #### G MARYLS #### Point of Care testing , Lymphocytes/100 WBC (Bld) 5.7 % Normal . [facility] Comment on above: Performed By: #### G MARYLS #### Point of Care testing , MCH (RBC) [Entitic mass] 32.6 pg Normal 24.7-34.3 [facility] Comment on above: Performed By: #### G MARYLS #### Point of Care testing , MCV (RBC) [Entitic vol] 97.2 fL Normal 80-100 [facility] Comment on above: Performed By: #### G MARYLS #### Point of Care testing , Mean Corpuscular HGB Conc 33.5 g/dL Normal 32.0-35.0 [facility] Comment on above: Performed By: #### G MARYLS #### Point of Care testing , Monocytes (Bld) [#/Vol] 1.2 10*3/uL High 0.0-0.8 [facility] Comment on above: Performed By: #### Sophia HERNANDEZLS #### Point of Care testing , Monocytes/100 WBC (Bld) 24.68 % High 0.00-20.00 [facility] Comment on above: Result Comment: For adults in ED, MDW > 20.0 may be associated with a higher risk of sepsis during the first 12 hrs of hospital admission Performed By: #### G MARYLS #### Point of Care testing , Monocytes/100 WBC (Bld) 7.2 % Normal . [facility] Comment on above: Performed By: #### G MARYLS #### Point of Care testing , Neutrophils (Bld) [#/Vol] 14.2 10*3/uL High 1.8-7.7 [facility] Comment on above: Performed By: #### G MARYLS #### Point of Care testing , Neutrophils/100 WBC (Bld) 85.8 % Normal . [facility] Comment on above: Performed By: #### G LULS #### Point of Care testing , NRBC% 0.1 /100{WBC} Normal 0-0.5 [facility] Comment on above: Performed By: #### G MARYLS #### Point of Care testing , Platelet mean volume (Bld) [Entitic vol] 7.2 fL Normal 6.3-10.7 [facility] Comment on above: Performed By: #### G MARYLS #### Point of Care testing , Platelets (Bld) [#/Vol] 410 10*3/uL Normal 150-450 [facility] Comment on above: Performed By: #### G MARYLS #### Point of Care testing , RBC (Bld) [#/Vol] 3.92 10*6/uL Normal 3.60-5.00 [facility] Comment on above: Performed By: #### G MARYLS #### Point of Care testing , WBC (Bld) [#/Vol] 16.6 10*3/uL High 3.8-11.6 [facility] Comment on above: Performed By: #### G MARE #### Point of Care testing , Creatine Kinaseon 03-10-2023 CK [Catalytic activity/Vol] 23 U/L Low 30-223 [facility] Comment on above: Performed By: #### C BC, BMP, MG #### [address] Creatine kinase [Enzymatic a ctivity/volume] in Serum or PlasmaOrdered By: Lavell Salazar on 03-10-2023 CK [Catalytic activity/Vol] 23 U/L 30-223 [facility] ECG 12 lead ECGon 03-10-2023 ECG 12 lead ECG [facility] [place] [address] Electrocardiograph Report Signed Patient: Christiane Perez MR#: [id number] 2 : 1975 Acct:[id number] Age/Sex: 48 / F ADM Date: 03/10/23 Loc: ER Room: Type: [facility] ER Attending Dr: Ordering Provider: Lavell Salazar, Date of Service: 07/ ECG/ECG 12 lead ECG: Shortness of Breath/Dyspnea [...] has shortened Confirmed by Lavell Salazar DO ([id number]) on 03/10/2023 3:09:19 PM Referred By: Electronically Signed By:Lavell Salazar DO Transcribed By: MUS Signed By Lavell Salazar DO 3 1509 Normal [facility] Glucose Poct Glucometerson 0 03-10-2023 Glucose [Mass/Vol] 129 mg/dL Normal [facility] Comment on above: Result Comment: [facility] Glucose Reference Range is dependent on time and content of last meal. Glucose of more than 200 mg/dL in a nonstressed, ambulatory subject supports the diagnosis of Diabetes Mellitus. PERFORMED BY: [address] [place] [address] PATHOLOGIST [employer] WAYNE WAKEFIELD M.D. Performed By: #### G LULS #### Point of Care testing , Commemt1 Glu2: Cleaned Meter Normal [facility] Comment on above: Result Comment: PERF ORMED BY: [facility] [address] [place] [address] PATHOLOGIST [employer] WAYNE WAKEFIELD M.D. Performed By: #### G LULS #### Point of Care testing , Glucose [Mass/Vol] 176 mg/dL Normal [facility] Comment on above: Result Comment: [facility] Glucose Reference Range is dependent on time and content of last meal. Glucose of more than 200 mg/dL in a nonstressed, ambulatory subject supports the diagnosis of Diabetes Mellitus. Performed By: #### G LULS #### Point of Care testing , Hepatic Panelon 03-10-2023 Albumin [Mass/Vol] 3.3 g/dL Low 3.5-5.7 [facility] Comment on above: Performed By: #### C BC, BMP, MG #### [facility] [address] [place] [address] Albumin/Globulin [Mass ratio] 0.9 {ratio} Normal [facility] Comment on above: Performed By: #### C BC, BMP, MG #### [facility] [address] [place] [address] ALP [Catalytic activity/Vol] 110 U/L High 34-104 [facility] Comment on above: Performed By: #### C BC, BMP, MG #### [facility] [address] [place] [address] ALT [Catalytic activity/Vol] 6 U/L Low 7-52 [facility] Comment on above: Performed By: #### C BC, BMP, MG #### [facility] [address] [place] [address] AST [Catalytic activity/Vol] 10 U/L Low 13-39 [facility] Comment on above: Performed By: #### C BC, BMP, MG #### [facility] [address] [place] [address] Bilirubin [Mass/Vol] 0.7 mg/dL Normal 0.3-1.0 [facility] Comment on above: Performed By: #### C BC, BMP, MG #### [facility] [address] [place] [address] Bilirubin,Indirect 0.5 mg/dL Normal [facility] Comment on above: Performed By: #### C BC, BMP, MG #### [facility] [address] [place] [address] Bilirubin.indirect [Mass/Vol] 0.20 mg/dL High 0.03-0.18 [facility] Comment on above: Performed By: #### C BC, BMP, MG #### [facility] [address] [place] [address] Globulin (S) [Mass/Vol] 3.6 g/dL Normal [facility] Comment on above: Performed By: #### C BC, BMP, MG #### [facility] [address] [place] [address] [place] Protein [Mass/Vol] 6.9 g/dL Normal 6.4-8.9 [facility] Comment on above: Performed By: #### C BC, BMP, MG #### [facility] [address] Laboratory - CoagulationOrde red By: Lavell Salazar on 03-10-2023 PT Coag (PPP) [Time] 14.3 s 9.0-12.9 [facility] Lactate [Moles/volume] in Se rum or PlasmaOrdered By: Lavell Salazar on 03-10-2023 Lactate [Moles/Vol] 1.2 mmol/L 0.5-2.2 [facility] Lactic Acidon 03-10-2023 Lactate [Moles/Vol] 1.2 mmol/L Normal 0.5-2.2 [facility] Comment on above: Result Comment: PERF ORMED BY: [place] [address] PATHOLOGIST [employer] WAYNE WAKEFIELD M.D. Performed By: #### G MARE #### Point of Care testing , Monocyte distribution width [Entitic volume] in Blood by AutomatedOrdered By: Lavell Salazar on 03-10-2023 Monocyte distribution width Auto (Bld) [Entitic vol] 24.68 % 0.00-20.00 [facility] Comment on above: For adults in ED, MD W > 20.0 may be associated with a higher risk of sepsis during the first 12 hrs of hospital admission Natriuretic peptide B [Mass/ Vol]Ordered By: Lavell Salazar on 03-10-2023 Natriuretic peptide B (Bld) [Mass/Vol] 46.0 pg/mL 5-100 [facility] Partial Thromboplastin Timeo n 03-10-2023 aPTT Coag (Bld) [Time] 40.2 s High 25.1-36.5 [facility] Comment on above: Result Comment: PERF ORMED BY: [facility] [address] [place] [address] PATHOLOGIST [employer] WAYNE WAKEFIELD M.D. Performed By: #### G MARE #### Point of Care testing , Platelet poor plasma interna tional normalized ratio (INR) by coagulation assay (relatOrdered By: Lavell Salazar on 03-10-2023 INR Coag (PPP) [Relative time] 1.2 {INR} [facility] Comment on above: INR Therapeutic Rang e [...] Coag (PPP) [Relative time] 1.2 {INR} Normal [facility] Comment on above: Result Comment: INR Therapeutic [...] LUAUGUSTIN #### Point of Care testing , Serum or plasma non-glucuron idated bilirubin measurement (mass/volume)Ordered By: Lavell Salazar on 03-10-2023 Bilirubin.indirect [Mass/Vol] 0.5 mg/dL [facility] Troponin I High Sensitivityo n 03-10-2023 Troponin I High Sensitivity 12.8 pg/mL Normal 0.0-15.0 [facility] Comment on above: Result Comment: PERF ORMED BY: [facility] [address] [place] [address] PATHOLOGIST [employer] WAYNE WAKEFIELD M.D. Performed By: #### C BC, BMP, MG #### [address] Troponin I.cardiac [Mass/vol ume] in Serum or Plasma by Detection limit <= 0.01 ng/Ordered By: Lavell Salazar on 03-10-2023 Troponin I.cardiac DL <= 0.01 ng/mL [Mass/Vol] 12.8 pg/mL 0.0-15.0 [facility] XR chest 1V portableon 03-10 XR chest 1V portable [facility] [place] [address] [place] [address] XRay Report Signed Patient: Christiane Perez MR#: [id number] 2 : 1975 Acct:[id number] Age/Sex: 48 / F ADM Date: 03/10/23 [...] CT. Impression dictated by: Rodger Johnson Jr., DJosueOJosue03/10/2023 1:11 PM Dictation Location: [place] [address] Transcribed By: [facility] 03/10/231310 Dictated By: Rodger Johnson Jr, DO 03/10/231309 Signed By: 03/10/23 131 Normal [facility] Insurance Correspondence Off 02-19-2023 Insurance Correspondence Office [id number]#1.00CD:12 7 Normal [facility] Quick Strepon 02-14-2023 S. pyogenes Org specific cx Ql (Throat) Negative [employer] [facility] [employer] Other Quick Strep [facility] [employer] Other Insurance Correspondence Off iceon 01-20-2023 Insurance Correspondence Office [id number]#1.00CD:1 27 Normal [facility] CBC AUTO DIFFon 12-01-2022 BASO # 0.0 103/ul Normal 0.0-0.1 [facility] Comment on above: Performed By: #### I NFLUAB #### [facility] Laboratory [address] [place] [address] Dr. Roscoe Segal Basophils/100 WBC (Bld) 0.6 % Normal 0.2-2.0 [facility] Comment on above: Performed By: #### I NFLUAB #### [facility] [address] [place] [address] Dr. Roscoe Segal EO # 0.2 103/ul Normal 0.0-0.7 [facility] Comment on above: Performed By: #### I NFLUAB #### [facility] [address] [place] [address] Dr. Roscoe Segal Eosinophils/100 WBC (Bld) 2.4 % Normal 0.9-7.0 [facility] Comment on above: Performed By: #### I NFLUAB #### [facility] [address] [place] [address] Dr. Roscoe Segal Erythrocyte distribution width (RBC) [Ratio] 14.9 % Normal 11.0-15.0 [facility] Comment on above: Performed By: #### I NFLUAB #### [facility] [address] [place] [address] Dr. Roscoe Segal Hematocrit (Bld) [Volume fraction] 44.7 % Normal 36.0-48.0 [facility] Comment on above: Performed By: #### I NFLUAB #### [facility] [address] [place] [address] Dr. Roscoe Segal Hemoglobin (Bld) [Mass/Vol] 14.9 g/dL Normal 12.0-16.0 [facility] Comment on above: Performed By: #### I NFLUAB #### [facility] Laboratory [address] [place] [address] [address] Roscoe Segal IG # 0.02 10e3/ul Normal 0.00-0.03 [facility] Comment on above: Performed By: #### I NFLUAB #### [facility] [address] [place] [address] Dr. Roscoe Segal IG % 0.3 % Normal 0.0-0.5 [facility] Comment on above: Performed By: #### I NFLUAB #### [facility] [address] [place] [address] Dr. Roscoe Segal LYMPH # 1.6 103/ul Normal 1.2-3.8 [facility] Comment on above: Performed By: #### I NFLUAB #### [facility] [address] [place] [address] Dr. Roscoe Segal Lymphocytes/100 WBC (Bld) 26.1 % Normal 20.5-60.0 [facility] Comment on above: Performed By: #### I NFLUAB #### [facility] [address] [place] [address] Dr. Roscoe Segal MANUAL DIFF REQ NO Normal [facility] Comment on above: Performed By: #### I NFLUAB #### [facility] [address] [place] [address] [address] Roscoe Segal MCH (RBC) [Entitic mass] 32.3 pg Normal 26.7-34.0 [facility] Comment on above: Performed By: #### I NFLUAB #### [facility] [address] [place] [address] [address] Roscoe Segal MCHC (RBC) [Mass/Vol] 33.3 g/dL Normal 29.9-35.2 [facility] Comment on above: Performed By: #### I NFLUAB #### [facility] [address] [place] [address] Dr. Roscoe Segal MCV (RBC) [Entitic vol] 96.8 fL Normal 81.0-99.0 [facility] Comment on above: Performed By: #### I NFLUAB #### [facility] Laboratory [address] [place] [address] Dr. Roscoe Segal MONO # 0.6 103/ul Normal 0.3-0.8 [facility] Comment on above: Performed By: #### I NFLUAB #### [facility] [address] [place] [address] Dr. Roscoe Segal Monocytes/100 WBC (Bld) 9.1 % Normal 1.7-12.0 [facility] Comment on above: Performed By: #### I NFLUAB #### [facility] [address] [place] [address] Dr. Roscoe Segal NEUT # 3.8 103/ul Normal 1.4-6.5 [facility] Comment on above: Performed By: #### I NFLUAB #### [facility] [address] [place] [address] Dr. Roscoe Segal Neutrophils/100 WBC (Bld) 61.5 % Normal 43.0-75.0 [facility] Comment on above: Performed By: #### I NFLUAB #### [facility] [address] [place] [address] Dr. Roscoe Segal Platelet mean volume (Bld) [Entitic vol] 8.5 fL Critically low 9.5-13.5 [facility] Comment on above: Performed By: #### I NFLUAB #### [facility] [address] [place] [address] Dr. Roscoe Segal PLT 268 103/ul Normal 150-450 [facility] Comment on above: Performed By: #### I NFLUAB #### [facility] [address] [place] [address] Dr. Roscoe Segal RBC 4.62 106/ul Normal 4.20-5.40 [facility] Comment on above: Performed By: #### I NFLUAB #### [facility] [address] [place] [address] [address] Roscoe Segal WBC 6.3 103/ul Normal 4.0-11.0 [facility] Comment on above: Performed By: #### I NFLUAB #### [facility] [address] [place] [address] Dr. Roscoe Segal GLYCOHEMOGLOBIN A1Con 2022 ADA RECOMMENDATION SEE BELOW Normal [facility] Comment on above: Result Comment: ADA RECOMMENDED LIMIT 4.0 - 6.0 ADA THERAPEUTIC TARGET < 7.0 ACTION SUGGESTED > 7.0 Performed By: #### C BC #### [facility] [address] [place] [address] [address] Roscoe Segal Glucose [Mass/Vol] 137 mg/dL Normal [facility] Comment on above: Performed By: #### C BC #### [facility] [address] [place] [address] Dr. Roscoe Segal HbA1c (Bld) [Mass fraction] 6.4 % Critically high 4.5-6.2 [facility] Comment on above: Performed By: #### C BC #### [facility] [address] [place] [address] Dr. Roscoe Segal LIPID PROFILEon 12-01-2022 CHOL-HDL RATIO NORM SEE BELOW Normal [facility] Comment on above: Result Comment: 3.3 - 4.4 LOW RISK 4.4 - 7.1 AVERAGE RISK 7.1 - 11.0 MODERATE RISK >11.0 HIGH RISK Performed By: #### I NFLUAB #### [facility] [address] [place] [address] Dr. Roscoe Segal Cholesterol [Mass/Vol] 116 mg/dL Normal <=200 Th [facility] Comment on above: Performed By: #### I NFLUAB #### [facility] [address] [place] [address] Dr. Roscoe Segal Cholesterol in HDL [Mass/Vol] 58 mg/dL Normal 40-60 [facility] Comment on above: Performed By: #### I NFLUAB #### [facility] [address] [place] [address] Dr. Roscoe Segal Cholesterol in LDL [Mass/Vol] 43.4 mg/dL Normal [facility] Comment on above: Performed By: #### I NFLUAB #### [facility] [address] [address] [address] Roscoe Segal Cholesterol.total/Chol esterol in HDL [Mass ratio] 2.0 {ratio} Normal [facility] Comment on above: Performed By: #### I NFLUAB #### [facility] [address] [address] [address] Roscoe Segal HDL NORMAL > or = 60 mg/dl - LO W CARDIOVASCULAR RISK <40 mg/dl - HIGH CARDIOVASCULAR RISK Normal [facility] Comment on above: Performed By: #### I NFLUAB #### [facility] [address] [address] [address] Roscoe Segal LDL CALC NORMAL SEE BELOW Normal [facility] Comment on above: Result Comment: <100 mg/dl OPTIMAL 100 - 129 mg/dl NEAR OR ABOVE OPTIMAL 130 - 159 mg/dl BORDERLINE HIGH 160 - 189 mg/dl HIGH >190 mg/dl VERY HIGH Performed By: #### I NFLUAB #### [facility] [address] [address] [address] Roscoe Segal Triglyceride [Mass/Vol] 73 mg/dL Normal <=150 [facility] Comment on above: Performed By: #### I NFLUAB #### [facility] [address] [address] [address] Roscoe Segal VLDL CALC 14.6 mg/dL Normal [facility] Comment on above: Performed By: #### I NFLUAB #### [facility] [address] [address] [address] Roscoe Segal PROF 14(COMP METB)on 023 Albumin [Mass/Vol] 2.9 g/dL Critically low 3.4-5.0 Th [facility] Comment on above: Performed By: #### P OCGLUC #### [facility] [address] [address] [address] Roscoe Segal Albumin/Globulin [Mass ratio] 0.8 {ratio} Normal [facility] Comment on above: Performed By: #### P OCGLUC #### [facility] [address] [address] [address] Roscoe Segal ALP [Catalytic activity/Vol] 114 U/L Normal 46-116 [facility] Comment on above: Performed By: #### P OCGLUC #### [facility] [address] [address] [address] Roscoe Segal ALT [Catalytic activity/Vol] 15 U/L Normal 14-59 [facility] Comment on above: Performed By: #### P OCGLUC #### [facility] [address] [address] [address] Roscoe Segal Anion gap [Moles/Vol] 14.3 mmol/L Normal Th [facility] Comment on above: Performed By: #### P OCGLUC #### [facility] [address] [address] [address] Roscoe Segal AST [Catalytic activity/Vol] 10 U/L Critically low 15-37 [facility] Comment on above: Performed By: #### P OCGLUC #### [facility] [address] [address] [address] Roscoe Segal Bilirubin [Mass/Vol] 0.3 mg/dL Normal 0.2-1.0 [facility] Comment on above: Performed By: #### P OCGLUC #### [facility] [address] [address] [address] Roscoe Segal Calcium [Mass/Vol] 8.7 mg/dL Normal 8.5-10.1 [facility] Comment on above: Performed By: #### P OCGLUC #### [facility] [address] [address] [address] Roscoe Segal Chloride [Moles/Vol] 104 mmol/L Normal 98-107 [facility] Comment on above: Performed By: #### P OCGLUC #### [facility] [address] [address] [address] Roscoe Segal CO2 [Moles/Vol] 23.5 mmol/L Normal 21.0-32.0 [facility] Comment on above: Performed By: #### P OCGLUC #### [facility] [address] [address] [address] Roscoe Segal Creatinine [Mass/Vol] 0.83 mg/dL Normal 0.55-1.02 [facility] Comment on above: Performed By: #### P OCGLUC #### [facility] [address] [address] [address] Roscoe Segal EGFR-AF ANDORRAN >60 Normal >=60 [facility] Comment on above: Performed By: #### P OCGLUC #### [facility] [address] [address] [address] Roscoe Segal EGFR-NON AF ANDORRAN >60 Normal >=60 [facility] Comment on above: Performed By: #### P OCGLUC #### [facility] [address] [address] [address] Roscoe Segal Globulin (S) [Mass/Vol] 3.5 g/dL Normal [facility] Comment on above: Performed By: #### P OCGLUC #### [facility] [address] [address] [address] Roscoe Segal Glucose [Mass/Vol] 235 mg/dL Critically high 74-106 [facility] Comment on above: Performed By: #### P OCGLUC #### [facility] [address] [address] [address] Roscoe Segal Potassium [Moles/Vol] 3.8 mmol/L Normal 3.5-5.1 [facility] Comment on above: Performed By: #### P OCGLUC #### [facility] [address] [address] [address] Roscoe Segal Protein [Mass/Vol] 6.4 g/dL Normal 6.4-8.2 [facility] Comment on above: Performed By: #### P OCGLUC #### [facility] [address] [address] [address] Roscoe Segal Sodium [Moles/Vol] 138 mmol/L Normal 136-145 [facility] Comment on above: Performed By: #### P OCGLUC #### [facility] [address] [address] [address] Roscoe Segal Urea nitrogen [Mass/Vol] 9.0 mg/dL Normal 7.0-18.0 [facility] Comment on above: Performed By: #### P OCGLUC #### [facility] [address] [place] [address] Dr. Roscoe Segal Urea nitrogen/Creatinine [Mass ratio] 10.8 mg/mg Normal [facility] Comment on above: Performed By: #### P OCGLUC #### [facility] [address] [place] [address] Dr. Roscoe Segal CARDIAC VICK ADMITon 023 CK [Catalytic activity/Vol] 43 U/L Normal 26-192 [facility] Comment on above: Performed By: #### I NFLUAB #### [facility] [address] [place] [address] Dr. Roscoe Segal CK.MB [Mass/Vol] 2.22 ng/mL Normal <=3.60 [facility] Comment on above: Performed By: #### I NFLUAB #### [facility] [address] [place] [address] Dr. Roscoe Segal GWEN 58 ng/mL Normal 9-82 [facility] Comment on above: Performed By: #### I NFLUAB #### [facility] [address] [place] [address] Dr. Roscoe Segal CBC AUTO DIFFon 09-11-2022 BASO # 0.1 103/ul Normal 0.0-0.1 [facility] Comment on above: Performed By: #### P OCGLUC #### [facility] [address] [place] [address] Dr. Roscoe Segal Basophils/100 WBC (Bld) 0.8 % Normal 0.2-2.0 [facility] Comment on above: Performed By: #### P OCGLUC #### [facility] [address] [place] [address] Dr. Roscoe Segal EO # 0.2 103/ul Normal 0.0-0.7 [facility] Comment on above: Performed By: #### P OCGLUC #### [facility] [address] [address] [address] Roscoe Segla Eosinophils/100 WBC (Bld) 2.1 % Normal 0.9-7.0 [facility] Comment on above: Performed By: #### P OCGLUC #### [facility] [address] [place] [address] Dr. Roscoe Segal Erythrocyte distribution width (RBC) [Ratio] 14.2 % Normal 11.0-15.0 [facility] Comment on above: Performed By: #### P OCGLUC #### [facility] [address] [place] [address] Dr. Roscoe Segal Hematocrit (Bld) [Volume fraction] 48.4 % Critically high 36.0-48.0 [facility] Comment on above: Performed By: #### P OCGLUC #### [facility] [address] [place] [address] Dr. Roscoe Segal Hemoglobin (Bld) [Mass/Vol] 15.0 g/dL Normal 12.0-16.0 [facility] Comment on above: Performed By: #### P OCGLUC #### [facility] [address] [place] [address] Dr. Roscoe Segal IG # 0.02 10e3/ul Normal 0.00-0.03 [facility] Comment on above: Performed By: #### P OCGLUC #### [facility] [address] [place] [address] Dr. Roscoe Segal IG % 0.2 % Normal 0.0-0.5 [facility] Comment on above: Performed By: #### P OCGLUC #### [facility] [address] [place] [address] Dr. Roscoe Segal LYMPH # 2.2 103/ul Normal 1.2-3.8 [facility] Comment on above: Performed By: #### P OCGLUC #### [facility] [address] [place] [address] Dr. Roscoe Segal Lymphocytes/100 WBC (Bld) 26.8 % Normal 20.5-60.0 [facility] Comment on above: Performed By: #### P OCGLUC #### [facility] [address] [address] [address] Roscoe Segal MANUAL DIFF REQ NO Normal [facility] Comment on above: Performed By: #### P OCGLUC #### [facility] [address] [address] [address] Roscoe Segal MCH (RBC) [Entitic mass] 32.8 pg Normal 26.7-34.0 [facility] Comment on above: Performed By: #### P OCGLUC #### [facility] [address] [place] [address] Dr. Roscoe Segal MCHC (RBC) [Mass/Vol] 31.0 g/dL Normal 29.9-35.2 [facility] Comment on above: Performed By: #### P OCGLUC #### [facility] [address] [place] [address] Dr. Roscoe Segal MCV (RBC) [Entitic vol] 105.7 fL Critically high 81.0-99.0 [facility] Comment on above: Result Comment: Slig ht Macrocytosis Present Performed By: #### P OCGLUC #### [facility] [address] [place] [address] Dr. Roscoe Segal MONO # 0.7 103/ul Normal 0.3-0.8 [facility] Comment on above: Performed By: #### P OCGLUC #### [facility] [address] [place] [address] Dr. Roscoe Segal Monocytes/100 WBC (Bld) 8.9 % Normal 1.7-12.0 [facility] Comment on above: Performed By: #### P OCGLUC #### [facility] [address] [place] [address] Dr. Roscoe Segal NEUT # 5.1 103/ul Normal 1.4-6.5 [facility] Comment on above: Performed By: #### P OCGLUC #### [facility] [address] [place] [address] Dr. Roscoe Segal Neutrophils/100 WBC (Bld) 61.2 % Normal 43.0-75.0 [facility] Comment on above: Performed By: #### P OCGLUC #### [facility] [address] [address] [address] Roscoe Segal Platelet mean volume (Bld) [Entitic vol] 8.7 fL Critically low 9.5-13.5 [facility] Comment on above: Performed By: #### P OCGLUC #### [facility] [address] [address] [address] Roscoe Segal PLT 382 103/ul Normal 150-450 [facility] Comment on above: Performed By: #### P OCGLUC #### [facility] [address] [address] [address] Roscoe Segal RBC 4.58 106/ul Normal 4.20-5.40 [facility] Comment on above: Performed By: #### P OCGLUC #### [facility] [address] [address] [address] Roscoe Segal WBC 8.3 103/ul Normal 4.0-11.0 [facility] Comment on above: Performed By: #### P OCGLUC #### [facility] [address] [address] [address] Roscoe Segal GLUCOSE BLOODon 09-11-2022 Glucose [Mass/Vol] 39 mg/dL Critically low 74-106 [facility] Comment on above: Performed By: #### P OCGLUC #### [facility] [address] [address] [address] Roscoe Segal POINT OF CARE GLUCOSEon 08-17 Glucose [Mass/Vol] 103 mg/dL Normal 74-106 [facility] Comment on above: Performed By: #### P OCGLUC #### [facility] [address] [address] [address] Roscoe Segal Glucose [Mass/Vol] 284 mg/dL Critically high 74-106 [facility] Comment on above: Performed By: #### P OCGLUC #### [facility] [address] [address] [address] Roscoe Segal Glucose [Mass/Vol] 104 mg/dL Normal 74-106 [facility] Comment on above: Performed By: #### P OCGLUC #### [facility] [address] [address] [address] Roscoe Segal Glucose [Mass/Vol] 94 mg/dL Normal 74-106 [facility] Comment on above: Performed By: #### I NFLUAB #### [facility] [address] [address] [address] Roscoe Segal Glucose [Mass/Vol] 136 mg/dL Critically high 74-106 [facility] Comment on above: Performed By: #### P OCGLUC #### [facility] [address] [address] [address] Roscoe Segal Glucose [Mass/Vol] 181 mg/dL Critically high 74-106 [facility] Comment on above: Performed By: #### P OCGLUC #### [facility] [address] [address] [address] Roscoe Segal Glucose [Mass/Vol] 103 mg/dL Normal 74-106 [facility] Comment on above: Performed By: #### C BC #### [facility] [address] [address] [address] Roscoe Segal Glucose [Mass/Vol] 81 mg/dL Normal 74-106 [facility] Comment on above: Performed By: #### P OCGLUC #### [facility] [address] [address] [address] Roscoe Segal Glucose [Mass/Vol] 52 mg/dL Critically low 74-106 [facility] Comment on above: Performed By: #### P OCGLUC #### [facility] [address] [address] [address] Roscoe Segal Glucose [Mass/Vol] 38 mg/dL Critically low 74-106 [facility] Comment on above: Result Comment: Will Repeat Test Performed By: #### C BC #### [facility] [address] [address] [address] Roscoe Segal Glucose [Mass/Vol] 67 mg/dL Critically low 74-106 [facility] Comment on above: Performed By: #### P OCGLUC #### [facility] [address] [place] [address] Dr. Roscoe Segal PROF CHEM 8 (BAS METB)on Anion gap [Moles/Vol] 13.1 mmol/L Normal [facility] Comment on above: Performed By: #### C BC #### [facility] [address] [place] [address] Dr. Roscoe Segal Calcium [Mass/Vol] 9.0 mg/dL Normal 8.5-10.1 [facility] Comment on above: Performed By: #### C BC #### [facility] [address] [place] [address] Dr. Roscoe Segal Chloride [Moles/Vol] 106 mmol/L Normal 98-107 [facility] Comment on above: Performed By: #### C BC #### [facility] [address] [place] [address] Dr. Roscoe Segal CO2 [Moles/Vol] 25.0 mmol/L Normal 21.0-32.0 [facility] Comment on above: Performed By: #### C BC #### [facility] [address] [place] [address] Dr. Roscoe Segal Creatinine [Mass/Vol] 0.86 mg/dL Normal 0.55-1.02 [facility] Comment on above: Performed By: #### C BC #### [facility] [address] [place] [address] Dr. Roscoe Segal EGFR-AF ANDORRAN >60 Normal >=60 [facility] Comment on above: Performed By: #### C BC #### [facility] [address] [place] [address] Dr. Roscoe Segal EGFR-NON AF ANDORRAN >60 Normal >=60 [facility] Comment on above: Performed By: #### C BC #### [facility] [address] [place] [address] Dr. Roscoe Segal Glucose [Mass/Vol] 36 mg/dL Critically low 74-106 Th [facility] Comment on above: Performed By: #### C BC #### [facility] [address] [place] [address] Dr. Roscoe Segal Potassium [Moles/Vol] 4.1 mmol/L Normal 3.5-5.1 [facility] Comment on above: Performed By: #### C BC #### [facility] [address] [address] [address] Roscoe Segal Sodium [Moles/Vol] 140 mmol/L Normal 136-145 [facility] Comment on above: Performed By: #### C BC #### [facility] [address] [address] [address] Roscoe Segal Urea nitrogen [Mass/Vol] 10.0 mg/dL Normal 7.0-18.0 [facility] Comment on above: Performed By: #### C BC #### [facility] [address] [place] [address] Dr. Roscoe Segal Urea nitrogen/Creatinine [Mass ratio] 11.6 mg/mg Normal [facility] Comment on above: Performed By: #### C BC #### [facility] [address] [place] [address] Dr. Roscoe Segal TROPONIN, HIGH SENSITIVITYon 09-11-2022 HSTROP 7.0 pg/mL Normal 4.0-51.3 [facility] Comment on above: Result Comment: CUT- OFF POINTS HAVE BEEN ESTABLISHED BASED ON THE FOURTH UNIVERSAL DEFINITIONS OF MYOCARDIAL INFARCTION. THE UPPER REFERENCE LIMIT (URL) OF TROPONIN, DEFINED THE 99TH PERCENTILE OF cTnI DISTRIBUTION IN A REFERENCE POPULATION, HAS BEEN CONFIRMED THE DECISION THRESHOLD FOR CT DIAGNOSIS. Performed By: #### I NFLUAB #### [facility] [address] [place] [address] Dr. Roscoe Segal INFLUENZA A AND B AGon 07-24 INFLUANEGH SEE BELOW Normal [facility] Comment on above: Result Comment: Nega tive for Flu A protein angiten. Infection due to Flu A cannot be ruled out. Flu A angiten in the sample may be below the detection limit of the test. Performed By: #### I NFLUAB #### [facility] [address] [place] [address] Dr. Roscoe Segal INFLUBNEGH SEE BELOW Normal [facility] Comment on above: Result Comment: Nega tive for Flu B protein antigen. Infection due to Flu B cannot be ruled out. Flu B antigen in the sample may be below the detection limit of the test. Performed By: #### I NFLUAB #### [facility] [address] [place] [address] Dr. Roscoe Segal INFLUENZA A AG Negative Normal NEGATIVE SEE COMMENT [facility] Comment on above: Performed By: #### I NFLUAB #### [facility] [address] [place] [address] Dr. Roscoe Segal INFLUENZA B AG Negative Normal NEGATIVE SEE COMMENT [facility] Comment on above: Performed By: #### I NFLUAB #### [facility] [address] [place] [address] Dr. Roscoe Segal INTERNAL CONTROLS Within Normal Limits Normal Wi thin Normal Limits [facility] Comment on above: Performed By: #### I NFLUAB #### [facility] [address] [place] [address] Dr. Roscoe Segal XR CHEST 1 Von [...] SHAJI LIMON Date: 2022-07-24 15:26 Normal [facility] XR CHEST 2 Von 05-25-2022 XR CHEST [...] by: GERMAINE FARRELL Date: 2022-05-25 16:25 Normal [facility] BLOOD GASES BTYon 04-27-2022 02 MODE NASAL CANNULA Normal [facility] Comment on above: Performed By: #### P OCGLUC #### [facility] [address] [place] [address] Dr. Roscoe Segal ALLENS TEST Positive [facility] Comment on above: Performed By: #### P OCGLUC #### [facility] [address] [address] [address] Roscoe Segal Base excess Calc (Bld) [Moles/Vol] -1.5000 mmol/L Normal -2.0-2.0 [facility] Comment on above: Performed By: #### P OCGLUC #### [facility] [address] [place] [address] Dr. Roscoe Segal BIPAP PRESSURE [facility] Comment on above: Performed By: #### P OCGLUC #### [facility] [address] [address] [address] Seg[address] CPAP [facility] Comment on above: Performed By: #### P OCGLUC #### [facility] [address] [address] [address] Roscoe Segal FIO2 [facility] Comment on above: Performed By: #### P OCGLUC #### [facility] [address] [place] [address] Dr. Roscoe Segal HCO3 (Bld) [Moles/Vol] 23.2 mmol/L Normal 22.0-26.0 [facility] Comment on above: Performed By: #### P OCGLUC #### [facility] [address] [place] [address] Dr. Roscoe Segal LPM [address] [facility] Comment on above: Performed By: #### P OCGLUC #### [facility] [address] [place] [address] Dr. Roscoe Segal MINUTE VOLUME Normal [facility] Comment on above: Performed By: #### P OCGLUC #### [facility] [address] [address] [address] Roscoe Segal Oxygen (Bld) [Partial pressure] 76.4 mm[Hg] Critically low 80.0-100.0 [facility] Comment on above: Performed By: #### P OCGLUC #### [facility] [address] [address] [address] Roscoe Segal Oxygen saturation in Blood 94.8 % Critically low 95.0-100.0 [facility] Comment on above: Performed By: #### P OCGLUC #### [facility] [address] [address] [address] Roscoe Segal PCO2 39.5 mmHg Normal 35.0-45.0 [facility] Comment on above: Performed By: #### P OCGLUC #### [facility] [address] [place] [address] Dr. Roscoe Segal [facility] Comment on above: Performed By: #### P OCGLUC #### [facility] [address] [place] [address] Dr. Roscoe Segal pH (Bld) 7.384 [pH] Normal 7.350-7.45 0 [facility] Comment on above: Performed By: #### P OCGLUC #### [facility] [address] [place] [address] Dr. Roscoe Segal [facility] Comment on above: Performed By: #### P OCGLUC #### [facility] [address] [address] [address] Roscoe Segal [facility] Comment on above: Performed By: #### P OCGLUC #### [facility] [address] [address] [address] Roscoe Segal PUNCTURE SITE LR [facility] Comment on above: Performed By: #### P OCGLUC #### [facility] [address] [place] [address] Dr. Roscoe Segal [facility] Comment on above: Performed By: #### P OCGLUC #### [facility] [address] [place] [address] Dr. Roscoe Segal VENT MODE Normal [facility] Comment on above: Performed By: #### P OCGLUC #### [facility] [address] [place] [address] Dr. Roscoe Segal [facility] Comment on above: Performed By: #### P OCGLUC #### [facility] [address] [place] [address] Dr. Roscoe Segal BNPon 04-27-2022 Natriuretic peptide B (Bld) [Mass/Vol] 282.0 pg/mL Normal <=450.0 [facility] Comment on above: Performed By: #### P OCGLUC #### [facility] [address] [place] [address] Dr. Roscoe Segal CBC AUTO DIFFon 04-27-2022 BASO # 0.0 103/ul Normal 0.0-0.1 [facility] Comment on above: Performed By: #### P OCGLUC #### [facility] [address] [place] [address] Dr. Roscoe Segal Basophils/100 WBC (Bld) 0.2 % Normal 0.2-2.0 [facility] Comment on above: Performed By: #### P OCGLUC #### [facility] [address] [place] [address] Dr. Roscoe Segal EO # 0.0 103/ul Normal 0.0-0.7 [facility] Comment on above: Performed By: #### P OCGLUC #### [facility] [address] [place] [address] Dr. Roscoe Segal Eosinophils/100 WBC (Bld) 0.0 % Critically low 0.9-7.0 [facility] Comment on above: Performed By: #### P OCGLUC #### [facility] [address] [place] [address] Dr. Roscoe Segal Erythrocyte distribution width (RBC) [Ratio] 14.1 % Normal 11.0-15.0 [facility] Comment on above: Performed By: #### P OCGLUC #### [facility] [address] [place] [address] Dr. Roscoe Segal Hematocrit (Bld) [Volume fraction] 39.4 % Normal 36.0-48.0 [facility] Comment on above: Performed By: #### P OCGLUC #### [facility] [address] [address] [address] Roscoe Segal Hemoglobin (Bld) [Mass/Vol] 13.0 g/dL Normal 12.0-16.0 [facility] Comment on above: Performed By: #### P OCGLUC #### [facility] [address] [place] [address] Dr. Roscoe Segal IG # 0.14 10e3/ul Critically high 0.00-0.03 [facility] Comment on above: Performed By: #### P OCGLUC #### [facility] [address] [place] [address] Dr. Roscoe Segal IG % 1.0 % Critically high 0.0-0.[address] [facility] Comment on above: Performed By: #### P OCGLUC #### [facility] [address] [place] [address] Dr. Roscoe Segal LYMPH # 1.4 103/ul Normal 1.2-3.8 [facility] Comment on above: Performed By: #### P OCGLUC #### [facility] [address] [place] [address] Dr. Roscoe Segal Lymphocytes/100 WBC (Bld) 9.5 % Critically low 20.5-60.0 [facility] Comment on above: Performed By: #### P OCGLUC #### [facility] [address] [place] [address] Dr. Roscoe Segal MANUAL DIFF REQ NO Normal [facility] Comment on above: Performed By: #### P OCGLUC #### [facility] [address] [place] [address] Dr. Roscoe Segal MCH (RBC) [Entitic mass] 32.3 pg Normal 26.7-34.0 [facility] Comment on above: Performed By: #### P OCGLUC #### [facility] [address] [place] [address] Dr. Roscoe Segal MCHC (RBC) [Mass/Vol] 33.0 g/dL Normal 29.9-35.2 [facility] Comment on above: Performed By: #### P OCGLUC #### [facility] [address] [address] [address] Roscoe Segal MCV (RBC) [Entitic vol] 98.0 fL Normal 81.0-99.0 [facility] Comment on above: Performed By: #### P OCGLUC #### [facility] [address] [address] [address] Roscoe Segal MONO # 0.6 103/ul Normal 0.3-0.8 [facility] Comment on above: Performed By: #### P OCGLUC #### [facility] [address] [place] [address] Dr. Roscoe Segal Monocytes/100 WBC (Bld) 4.3 % Normal 1.7-12.0 [facility] Comment on above: Performed By: #### P OCGLUC #### [facility] [address] [place] [address] Dr. Roscoe Segal NEUT # 12.1 103/ul Critically high 1.4-6.5 [facility] Comment on above: Performed By: #### P OCGLUC #### [facility] [address] [place] [address] Dr. Roscoe Segal Neutrophils/100 WBC (Bld) 85.0 % Critically high 43.0-75.0 [facility] Comment on above: Performed By: #### P OCGLUC #### [facility] [address] [place] [address] Dr. Roscoe Segal Platelet mean volume (Bld) [Entitic vol] 8.9 fL Critically low 9.5-13.5 [facility] Comment on above: Performed By: #### P OCGLUC #### [facility] [address] [place] [address] Dr. Roscoe Segal PLT 362 103/ul Normal 150-450 [facility] Comment on above: Performed By: #### P OCGLUC #### [facility] [address] [place] [address] Dr. Roscoe Segal RBC 4.02 106/ul Critically low 4.20-5.40 [facility] Comment on above: Performed By: #### P OCGLUC #### [facility] [address] [place] [address] Dr. Roscoe Segal WBC 14.2 103/ul Critically high 4.0-11.0 [facility] Comment on above: Performed By: #### P OCGLUC #### [facility] [address] [place] [address] Dr. Roscoe Segal D-DIMERon 04-27-2022 D-DIMER 0.29 mg/L FEU Normal <=0.59 [facility] Comment on above: Performed By: #### D DIM #### [facility] [address] [place] [address] Dr. Roscoe Segal D-DIMER COMMENTS SEE BELOW Normal [facility] Comment on above: Result Comment: Incr [...] hospitalization. Performed By: #### D DIM #### [facility] [address] [place] [address] Dr. Roscoe Segal LACTATE/LACTIC ACIDon 2021 Lactate [Moles/Vol] 2.1 mmol/L Critically high 0.4-1.9 [facility] Comment on above: Performed By: #### P OCGLUC #### [facility] [address] [place] [address] Dr. Roscoe Segal PROF 14(COMP METB)on 022 Albumin [Mass/Vol] 3.0 g/dL Critically low 3.4-5.0 [facility] Comment on above: Performed By: #### P OCGLUC #### [facility] [address] [place] [address] Dr. Roscoe Segal Albumin/Globulin [Mass ratio] 0.8 {ratio} Normal [facility] Comment on above: Performed By: #### P OCGLUC #### [facility] [address] [address] [address] Roscoe Segal ALP [Catalytic activity/Vol] 77 U/L Normal 46-116 [facility] Comment on above: Performed By: #### P OCGLUC #### [facility] [address] [address] [address] Roscoe Segal ALT [Catalytic activity/Vol] 14 U/L Normal 14-59 [facility] Comment on above: Performed By: #### P OCGLUC #### [facility] [address] [address] [address] Roscoe Segal Anion gap [Moles/Vol] 13.4 mmol/L Normal [facility] Comment on above: Performed By: #### P OCGLUC #### [facility] [address] [address] [address] Roscoe Segal AST [Catalytic activity/Vol] 7 U/L Critically low 15-37 [facility] Comment on above: Performed By: #### P OCGLUC #### [facility] [address] [address] [address] Roscoe Segal Bilirubin [Mass/Vol] 0.1 mg/dL Critically low 0.2-1.0 [facility] Comment on above: Performed By: #### P OCGLUC #### [facility] [address] [address] [address] Roscoe Segal Calcium [Mass/Vol] 8.9 mg/dL Normal 8.5-10.1 [facility] Comment on above: Performed By: #### P OCGLUC #### [facility] [address] [address] [address] Roscoe Segal Chloride [Moles/Vol] 105 mmol/L Normal 98-107 [facility] Comment on above: Performed By: #### P OCGLUC #### [facility] [address] [address] [address] Roscoe Segal CO2 [Moles/Vol] 21.8 mmol/L Normal 21.0-32.0 [facility] Comment on above: Performed By: #### P OCGLUC #### [facility] [address] [address] [address] Roscoe Segal Creatinine [Mass/Vol] 0.94 mg/dL Normal 0.55-1.02 [facility] Comment on above: Performed By: #### P OCGLUC #### [facility] [address] [address] [address] Roscoe Segal EGFR-AF ANDORRAN >60 Normal >=60 [facility] Comment on above: Performed By: #### P OCGLUC #### [facility] [address] [address] [address] Roscoe Segal EGFR-NON AF ANDORRAN >60 Normal >=60 [facility] Comment on above: Performed By: #### P OCGLUC #### [facility] [address] [address] [address] Roscoe Segal Globulin (S) [Mass/Vol] 3.7 g/dL Normal [facility] Comment on above: Performed By: #### P OCGLUC #### [facility] [address] [address] [address] Roscoe Segal Glucose [Mass/Vol] 283 mg/dL Critically high 74-106 [facility] Comment on above: Performed By: #### P OCGLUC #### [facility] [address] [address] [address] Roscoe Segal Potassium [Moles/Vol] 4.2 mmol/L Normal 3.5-5.1 [facility] Comment on above: Performed By: #### P OCGLUC #### [facility] [address] [address] [address] Roscoe Segal Protein [Mass/Vol] 6.7 g/dL Normal 6.4-8.2 [facility] Comment on above: Performed By: #### P OCGLUC #### [facility] [address] [address] [address] Roscoe Segal Sodium [Moles/Vol] 136 mmol/L Normal 136-145 [facility] Comment on above: Performed By: #### P OCGLUC #### [facility] [address] [address] [address] Roscoe Segal Urea nitrogen [Mass/Vol] 16.0 mg/dL Normal 7.0-18.0 [facility] Comment on above: Performed By: #### P OCGLUC #### [facility] [address] [address] [address] Roscoe Segal Urea nitrogen/Creatinine [Mass ratio] 17.0 mg/mg Normal [facility] Comment on above: Performed By: #### P OCGLUC #### [facility] [address] [address] [address] Roscoe Segal TROPONIN, HIGH SENSITIVITYon 04-27-2022 HSTROP 7.2 pg/mL Normal 4.0-51.3 [facility] Comment on above: Result Comment: CUT- OFF POINTS HAVE BEEN ESTABLISHED BASED ON THE FOURTH UNIVERSAL DEFINITIONS OF MYOCARDIAL INFARCTION. THE UPPER REFERENCE LIMIT (URL) OF TROPONIN, DEFINED THE 99TH PERCENTILE OF cTnI DISTRIBUTION IN A REFERENCE POPULATION, HAS BEEN CONFIRMED THE DECISION THRESHOLD FOR CT DIAGNOSIS. Performed By: #### P OCGLUC #### [facility] [address] [address] [address] Roscoe Segal XR CHEST 1 Von [...] by: GERMAINE FARRELL Date: 2022-04-27 17:20 Normal [facility] CBC AUTO DIFFon 04-25-2022 BASO # 0.1 103/ul Normal 0.0-0.1 [facility] Comment on above: Performed By: #### P OCGLUC #### [facility] [address] [address] [address] Roscoe Segal Basophils/100 WBC (Bld) 0.4 % Normal 0.2-2.0 [facility] Comment on above: Performed By: #### P OCGLUC #### [facility] [address] [address] [address] Roscoe Segal EO # 0.1 103/ul Normal 0.0-0.7 [facility] Comment on above: Performed By: #### P OCGLUC #### [facility] [address] [address] [address] Roscoe Segal Eosinophils/100 WBC (Bld) 0.7 % Critically low 0.9-7.0 [facility] Comment on above: Performed By: #### P OCGLUC #### [facility] [address] [address] [address] Roscoe Segal Erythrocyte distribution width (RBC) [Ratio] 14.1 % Normal 11.0-15.0 [facility] Comment on above: Performed By: #### P OCGLUC #### [facility] [address] [address] [address] Roscoe Segal Hematocrit (Bld) [Volume fraction] 43.8 % Normal 36.0-48.0 [facility] Comment on above: Performed By: #### P OCGLUC #### [facility] [address] [address] [address] Roscoe Segal Hemoglobin (Bld) [Mass/Vol] 14.6 g/dL Normal 12.0-16.0 [facility] Comment on above: Performed By: #### P OCGLUC #### [facility] [address] [address] [address] Roscoe Segal IG # 0.09 10e3/ul Critically high 0.00-0.03 [facility] Comment on above: Performed By: #### P OCGLUC #### [facility] [address] [address] [address] Roscoe Segal IG % 0.6 % Critically high 0.0-0.5 [facility] Comment on above: Performed By: #### P OCGLUC #### [facility] [address] [address] [address] Roscoe Segal LYMPH # 1.5 103/ul Normal 1.2-3.8 [facility] Comment on above: Performed By: #### P OCGLUC #### [facility] [address] [address] [address] Roscoe Segal Lymphocytes/100 WBC (Bld) 9.9 % Critically low 20.5-60.0 [facility] Comment on above: Performed By: #### P OCGLUC #### [facility] [address] [address] [address] Roscoe Segal MANUAL DIFF REQ NO Normal [facility] Comment on above: Performed By: #### P OCGLUC #### [facility] [address] [address] [address] Roscoe Segal MCH (RBC) [Entitic mass] 31.8 pg Normal 26.7-34.0 [facility] Comment on above: Performed By: #### P OCGLUC #### [facility] [address] [address] [address] Roscoe Segal MCHC (RBC) [Mass/Vol] 33.3 g/dL Normal 29.9-35.2 [facility] Comment on above: Performed By: #### P OCGLUC #### [facility] [address] [address] [address] Roscoe Segal MCV (RBC) [Entitic vol] 95.4 fL Normal 81.0-99.0 [facility] Comment on above: Performed By: #### P OCGLUC #### [facility] [address] [address] [address] Roscoe Segal MONO # 1.2 103/ul Critically high 0.3-0.8 [facility] Comment on above: Performed By: #### P OCGLUC #### [facility] [address] [address] [address] Roscoe Segal Monocytes/100 WBC (Bld) 8.0 % Normal 1.7-12.0 [facility] Comment on above: Performed By: #### P OCGLUC #### [facility] [address] [place] [address] Dr. Roscoe Segal NEUT # 11.8 103/ul Critically high 1.4-6.5 [facility] Comment on above: Performed By: #### P OCGLUC #### [facility] [address] [place] [address] Dr. Roscoe Segal Neutrophils/100 WBC (Bld) 80.4 % Critically high 43.0-75.0 [facility] Comment on above: Performed By: #### P OCGLUC #### [facility] [address] [place] [address] Dr. Roscoe Segal Platelet mean volume (Bld) [Entitic vol] 8.9 fL Critically low 9.5-13.5 [facility] Comment on above: Performed By: #### P OCGLUC #### [facility] [address] [place] [address] Dr. Roscoe Segal PLT 357 103/ul Normal 150-450 [facility] Comment on above: Performed By: #### P OCGLUC #### [facility] [address] [place] [address] Dr. Roscoe Segal RBC 4.59 106/ul Normal 4.20-5.40 [facility] Comment on above: Performed By: #### P OCGLUC #### [facility] [address] [place] [address] Dr. Roscoe Segal WBC 14.7 103/ul Critically high 4.0-11.0 [facility] Comment on above: Performed By: #### P OCGLUC #### [facility] [address] [place] [address] Dr. Roscoe Segal Covid-19 PCR ([facility])on 04-16 SARS-CoV-2 (COVID-19) RNA SOILA+probe Ql (Unsp spec) Not detected Normal NOT DETECTED [facility] Comment on above: Result Comment: When diagnostic [...] for this test is supported by the [place] of [employer] and [employer] Service's declaration that [...] used). Performed By: #### P OCGLUC #### [facility] [address] [place] [address] Dr. Roscoe Segal PROF CHEM 8 (BAS METB)on Anion gap [Moles/Vol] 16.1 mmol/L Normal [facility] Comment on above: Performed By: #### B MP #### [facility] [address] [place] [address] Dr. Roscoe Segal Calcium [Mass/Vol] 9.2 mg/dL Normal 8.5-10.1 [facility] Comment on above: Performed By: #### B MP #### [facility] [address] [place] [address] Dr. Roscoe Segal Chloride [Moles/Vol] 104 mmol/L Normal 98-107 [facility] Comment on above: Performed By: #### B MP #### [facility] [address] [place] [address] Dr. Roscoe Segal CO2 [Moles/Vol] 22.5 mmol/L Normal 21.0-32.0 [facility] Comment on above: Performed By: #### B MP #### [facility] [address] [place] [address] Dr. Roscoe Segal Creatinine [Mass/Vol] 0.93 mg/dL Normal 0.55-1.02 [facility] Comment on above: Performed By: #### B MP #### [facility] [address] [address] [address] Roscoe Segal EGFR-AF ANDORRAN >60 Normal >=60 [facility] Comment on above: Performed By: #### B MP #### [facility] [id number] Roscoe Segal EGFR-NON AF ANDORRAN >60 Normal >=60 [facility] Comment on above: Performed By: #### B MP #### [facility] [address] [address] [address] Roscoe Segal Glucose [Mass/Vol] 227 mg/dL Critically high 74-106 [facility] Comment on above: Performed By: #### B MP #### [facility] [address] [address] [address] Roscoe Segal Potassium [Moles/Vol] 3.6 mmol/L Normal 3.5-5.1 [facility] Comment on above: Performed By: #### B MP #### [facility] [address] [address] [address] Roscoe Segal Sodium [Moles/Vol] 139 mmol/L Normal 136-145 [facility] Comment on above: Performed By: #### B MP #### [facility] [address] [address] [address] Roscoe Segal Urea nitrogen [Mass/Vol] 9.0 mg/dL Normal 7.0-18.0 [facility] Comment on above: Performed By: #### B MP #### [facility] [address] [address] [address] Roscoe Segal Urea nitrogen/Creatinine [Mass ratio] 9.7 mg/mg Normal [facility] Comment on above: Performed By: #### B MP #### [facility] [address] [place] [address] Dr. Roscoe Segal XR CHEST 1 Von [...] GERMAINE FARRELL Date: 2022-04-25 09:41 Normal [facility] GLYCOHEMOGLOBIN A1Con 2021 ADA RECOMMENDATION SEE BELOW Normal [facility] Comment on above: Result Comment: ADA RECOMMENDED LIMIT 4.0 - 6.0 ADA THERAPEUTIC TARGET < 7.0 ACTION SUGGESTED > 7.0 Performed By: #### P OCGLUC #### [facility] [address] [place] [address] Dr. Roscoe Segal Glucose [Mass/Vol] 128 mg/dL Normal [facility] Comment on above: Performed By: #### P OCGLUC #### [facility] [address] [address] [address] Roscoe Segal HbA1c (Bld) [Mass fraction] 6.1 % Normal 4.5-6.2 [facility] Comment on above: Performed By: #### P OCGLUC #### [facility] [address] [address] [address] Roscoe Segal LIPID PROFILEon 04-10-2022 CHOL-HDL RATIO NORM SEE BELOW Normal [facility] Comment on above: Result Comment: 3.3 - 4.4 LOW RISK 4.4 - 7.1 AVERAGE RISK 7.1 - 11.0 MODERATE RISK >11.0 HIGH RISK Performed By: #### L IPID #### [facility] [address] [address] [address] Roscoe Segal Cholesterol [Mass/Vol] 125 mg/dL Normal <=200 [facility] Comment on above: Performed By: #### L IPID #### [facility] [address] [address] [address] Roscoe Segal Cholesterol in HDL [Mass/Vol] 69 mg/dL Critically high 40-60 [facility] Comment on above: Performed By: #### L IPID #### [facility] [address] [address] [address] Roscoe Segal Cholesterol in LDL [Mass/Vol] 31.8 mg/dL Normal [facility] Comment on above: Performed By: #### L IPID #### [facility] [address] [address] [address] Roscoe Segal Cholesterol.total/Chol esterol in HDL [Mass ratio] 1.8 {ratio} Normal [facility] Comment on above: Performed By: #### L IPID #### [facility] [address] [place] [address] Dr. Roscoe eSgal HDL NORMAL > or = 60 mg/dl - LO W CARDIOVASCULAR RISK <40 mg/dl - HIGH CARDIOVASCULAR RISK Normal [facility] Comment on above: Performed By: #### L IPID #### [facility] [address] [place] [address] Dr. Roscoe Segal LDL CALC NORMAL SEE BELOW Normal [facility] Comment on above: Result Comment: <100 mg/dl OPTIMAL 100 - 129 mg/dl NEAR OR ABOVE OPTIMAL 130 - 159 mg/dl BORDERLINE HIGH 160 - 189 mg/dl HIGH >190 mg/dl VERY HIGH Performed By: #### L IPID #### [facility] [address] [place] [address] Dr. Roscoe Segal Triglyceride [Mass/Vol] 121 mg/dL Normal <=150 [facility] Comment on above: Performed By: #### L IPID #### [facility] [address] [place] [address] Dr. Roscoe Segal VLDL CALC 24.2 mg/dL Normal [facility] Comment on above: Performed By: #### L IPID #### [facility] [address] [place] [address] Dr. Roscoe Segal Covid-19 PCR ([facility])on 03-16 SARS-CoV-2 (COVID-19) RNA SOILA+probe Ql (Unsp spec) Not detected Normal NOT DETECTED [facility] Comment on above: Result Comment: This test is not yet approved or cleared by the [place] FDA. When there are no FDA-approved or cleared tests available, and other criteria are met, FDA can make tests available under an emergency access mechanism called an Emergency Use Authorization (EUA). The EUA for this test is supported by the Drawing Operator of Health and Human Service's (HHS's) declaration [...] SARS-CoV-2. Performed By: #### P OCGLUC #### [facility] [address] [place] [address] Dr. Roscoe Segal XR CHEST 1 Von [...] YASMIN HUERTAS Date: 2022-03-29 15:39 Normal [facility] CBC AUTO DIFFon 03-21-2022 BASO # 0.1 103/ul Normal 0.0-0.1 [facility] Comment on above: Performed By: #### C BC #### [facility] [address] [place] [address] Dr. Roscoe Segal Basophils/100 WBC (Bld) 0.6 % Normal 0.2-2.0 [facility] Comment on above: Performed By: #### C BC #### [facility] [address] [address] [address] Roscoe Segal EO # 0.3 103/ul Normal 0.0-0.7 [facility] Comment on above: Performed By: #### C BC #### [facility] [address] [address] [address] Roscoe Segal Eosinophils/100 WBC (Bld) 2.1 % Normal 0.9-7.0 [facility] Comment on above: Performed By: #### C BC #### [facility] [address] [place] [address] Dr. Roscoe Segal Erythrocyte distribution width (RBC) [Ratio] 14.7 % Normal 11.0-15.0 [facility] Comment on above: Performed By: #### C BC #### [facility] [address] [place] [address] Dr. Roscoe Segal Hematocrit (Bld) [Volume fraction] 47.1 % Normal 36.0-48.0 [facility] Comment on above: Performed By: #### C BC #### [facility] [address] [place] [address] Dr. Roscoe Segal Hemoglobin (Bld) [Mass/Vol] 15.6 g/dL Normal 12.0-16.0 [facility] Comment on above: Performed By: #### C BC #### [facility] [address] [place] [address] Dr. Roscoe Segal IG # 0.05 10e3/ul Critically high 0.00-0.03 [facility] Comment on above: Performed By: #### C BC #### [facility] [address] [place] [address] Dr. Roscoe Segal IG % 0.4 % Normal 0.0-0.5 [facility] Comment on above: Performed By: #### C BC #### [facility] [address] [address] [address] Roscoe Segal LYMPH # 3.9 103/ul Critically high 1.2-3.8 [facility] Comment on above: Performed By: #### C BC #### [facility] [address] [place] [address] Dr. Roscoe Segal Lymphocytes/100 WBC (Bld) 32.1 % Normal 20.5-60.0 [facility] Comment on above: Performed By: #### C BC #### [facility] [address] [place] [address] Dr. Roscoe Segal MANUAL DIFF REQ NO Normal [facility] Comment on above: Performed By: #### C BC #### [facility] [address] [place] [address] Dr. Roscoe Segal MCH (RBC) [Entitic mass] 31.9 pg Normal 26.7-34.0 [facility] Comment on above: Performed By: #### C BC #### [facility] [address] [place] [address] Dr. Roscoe Segal MCHC (RBC) [Mass/Vol] 33.1 g/dL Normal 29.9-35.2 [facility] Comment on above: Performed By: #### C BC #### [facility] [address] [place] [address] Dr. Roscoe Segal MCV (RBC) [Entitic vol] 96.3 fL Normal 81.0-99.0 [facility] Comment on above: Performed By: #### C BC #### [facility] [address] [place] [address] Dr. Roscoe Segal MONO # 0.9 103/ul Critically high 0.3-0.[address] [facility] Comment on above: Performed By: #### C BC #### [facility] [address] [place] [address] Dr. Roscoe Segal Monocytes/100 WBC (Bld) 7.4 % Normal 1.7-12.0 [facility] Comment on above: Performed By: #### C BC #### [facility] [address] [place] [address] Dr. Roscoe Segal NEUT # 7.0 103/ul Critically high 1.4-6.[address] [facility] Comment on above: Performed By: #### C BC #### [facility] [address] [place] [address] Dr. Roscoe Segal Neutrophils/100 WBC (Bld) 57.4 % Normal 43.0-75.0 [facility] Comment on above: Performed By: #### C BC #### [facility] [address] [place] [address] Dr. Roscoe Segal Platelet mean volume (Bld) [Entitic vol] 8.8 fL Critically low 9.5-13.5 [facility] Comment on above: Performed By: #### C BC #### [facility] [address] [place] [address] Dr. Roscoe Segal PLT 417 103/ul Normal 150-450 [facility] Comment on above: Performed By: #### C BC #### [facility] [address] [place] [address] Dr. Roscoe Segal RBC 4.89 106/ul Normal 4.20-5.40 [facility] Comment on above: Performed By: #### C BC #### [facility] [address] [place] [address] Dr. Roscoe Segal WBC 12.1 103/ul Critically high 4.0-11.0 [facility] Comment on above: Performed By: #### C BC #### [facility] [address] [place] [address] Dr. Roscoe Segal Covid-19 PCR ([facility])on SARS-CoV-2 (COVID-19) RNA SOILA+probe Ql (Unsp spec) Not detected Normal NOT DETECTED [facility] Comment on above: Result Comment: When diagnostic [...] for this test is supported by the Drawing Operator of Health and Human Service's declaration that [...] used). Performed By: #### P OCGLUC #### [facility] [address] [place] [address] Dr. Roscoe Segal PROF CHEM 8 (BAS METB)on Anion gap [Moles/Vol] 13.4 mmol/L Normal [facility] Comment on above: Performed By: #### I NFLUAB #### [facility] [address] [place] [address] Dr. Roscoe Segal Calcium [Mass/Vol] 9.2 mg/dL Normal 8.5-10.1 [facility] Comment on above: Performed By: #### I NFLUAB #### [facility] [address] [place] [address] Dr. Roscoe Segal Chloride [Moles/Vol] 105 mmol/L Normal 98-107 [facility] Comment on above: Performed By: #### I NFLUAB #### [facility] [address] [place] [address] Dr. Roscoe Segal CO2 [Moles/Vol] 23.9 mmol/L Normal 21.0-32.0 [facility] Comment on above: Performed By: #### I NFLUAB #### [facility] [address] [place] [address] Dr. Roscoe Segal Creatinine [Mass/Vol] 0.93 mg/dL Normal 0.55-1.02 [facility] Comment on above: Performed By: #### I NFLUAB #### [facility] [address] [place] [address] Dr. Roscoe Segal EGFR-AF ANDORRAN >60 Normal >=60 [facility] Comment on above: Performed By: #### I NFLUAB #### [facility] [address] [place] [address] Dr. Roscoe Segal EGFR-NON AF ANDORRAN >60 Normal >=60 [facility] Comment on above: Performed By: #### I NFLUAB #### [facility] [address] [address] [address] Roscoe Segal Glucose [Mass/Vol] 141 mg/dL Critically high 74-106 [facility] Comment on above: Performed By: #### I NFLUAB #### [facility] [address] [address] [address] Roscoe Segal Potassium [Moles/Vol] 4.3 mmol/L Normal 3.5-5.1 [facility] Comment on above: Performed By: #### I NFLUAB #### [facility] [address] [place] [address] Dr. Roscoe Segal Sodium [Moles/Vol] 138 mmol/L Normal 136-145 [facility] Comment on above: Performed By: #### I NFLUAB #### [facility] [address] [place] [address] Dr. Roscoe Segal Urea nitrogen [Mass/Vol] 9.0 mg/dL Normal 7.0-18.0 [facility] Comment on above: Performed By: #### I NFLUAB #### [facility] [address] [place] [address] Dr. Roscoe Segal Urea nitrogen/Creatinine [Mass ratio] 9.7 mg/mg Normal [facility] Comment on above: Performed By: #### I NFLUAB #### [facility] [address] [place] [address] Dr. Roscoe Segal CARDIAC VICK 3-6on 2 CK [Catalytic activity/Vol] 60 U/L Normal 26-192 [facility] Comment on above: Performed By: #### P OCGLUC #### [facility] [address] [place] [address] Dr. Roscoe Segal CK.MB [Mass/Vol] 1.84 ng/mL Normal <=3.60 [facility] Comment on above: Performed By: #### P OCGLUC #### [facility] [address] [place] [address] Dr. Roscoe Segal HSTROP 8.3 pg/mL Normal 4.0-51.3 [facility] Comment on above: Result Comment: CUT- OFF POINTS HAVE BEEN ESTABLISHED BASED ON THE FOURTH UNIVERSAL DEFINITIONS OF MYOCARDIAL INFARCTION. THE UPPER REFERENCE LIMIT (URL) OF TROPONIN, DEFINED THE 99TH PERCENTILE OF cTnI DISTRIBUTION IN A REFERENCE POPULATION, HAS BEEN CONFIRMED THE DECISION THRESHOLD FOR CT DIAGNOSIS. Performed By: #### P OCGLUC #### [facility] [address] [place] [address] Dr. Roscoe Segal CK [Catalytic activity/Vol] 57 U/L Normal 26-192 [facility] Comment on above: Performed By: #### I NFLUAB #### [facility] [address] [place] [address] Dr. Roscoe Segal CK.MB [Mass/Vol] 1.82 ng/mL Normal <=3.60 [facility] Comment on above: Performed By: #### I NFLUAB #### [facility] [address] [place] [address] Dr. Roscoe Segal HSTROP 8.1 pg/mL Normal 4.0-51.3 [facility] Comment on above: Result Comment: CUT- OFF POINTS HAVE BEEN ESTABLISHED BASED ON THE FOURTH UNIVERSAL DEFINITIONS OF MYOCARDIAL INFARCTION. THE UPPER REFERENCE LIMIT (URL) OF TROPONIN, DEFINED THE 99TH PERCENTILE OF cTnI DISTRIBUTION IN A REFERENCE POPULATION, HAS BEEN CONFIRMED THE DECISION THRESHOLD FOR CT DIAGNOSIS. Performed By: #### I NFLUAB #### [facility] [address] [place] [address] Dr. Roscoe Segal CARDIAC VICK ADMITon 022 CK [Catalytic activity/Vol] 64 U/L Normal 26-192 [facility] Comment on above: Performed By: #### P OCGLUC #### [facility] [address] [place] [address] Dr. Roscoe Segal CK.MB [Mass/Vol] 2.19 ng/mL Normal <=3.60 [facility] Comment on above: Performed By: #### P OCGLUC #### [facility] [address] [place] [address] Dr. Roscoe Segal HSTROP 7.6 pg/mL Normal 4.0-51.3 [facility] Comment on above: Result Comment: CUT- OFF POINTS HAVE BEEN ESTABLISHED BASED ON THE FOURTH UNIVERSAL DEFINITIONS OF MYOCARDIAL INFARCTION. THE UPPER REFERENCE LIMIT (URL) OF TROPONIN, DEFINED THE 99TH PERCENTILE OF cTnI DISTRIBUTION IN A REFERENCE POPULATION, HAS BEEN CONFIRMED THE DECISION THRESHOLD FOR CT DIAGNOSIS. Performed By: #### P OCGLUC #### [facility] [address] [place] [address] Dr. Roscoe Segal GWEN 50 ng/mL Normal 9-82 [facility] Comment on above: Performed By: #### P OCGLUC #### [facility] [address] [place] [address] Dr. Roscoe Segal CBC AUTO DIFFon 03-03-2022 BASO # 0.1 103/ul Normal 0.0-0.1 [facility] Comment on above: Performed By: #### P OCGLUC #### [facility] [address] [place] [address] Dr. Roscoe Segal Basophils/100 WBC (Bld) 0.7 % Normal 0.2-2.0 [facility] Comment on above: Performed By: #### P OCGLUC #### [facility] [address] [place] [address] Dr. Roscoe Segal EO # 0.2 103/ul Normal 0.0-0.7 [facility] Comment on above: Performed By: #### P OCGLUC #### [facility] [address] [place] [address] Dr. Roscoe Segal Eosinophils/100 WBC (Bld) 1.3 % Normal 0.9-7.0 [facility] Comment on above: Performed By: #### P OCGLUC #### [facility] [address] [place] [address] Dr. Roscoe Segal Erythrocyte distribution width (RBC) [Ratio] 14.5 % Normal 11.0-15.0 [facility] Comment on above: Performed By: #### P OCGLUC #### [facility] [address] [place] [address] Dr. Roscoe Segal Hematocrit (Bld) [Volume fraction] 44.8 % Normal 36.0-48.0 [facility] Comment on above: Performed By: #### P OCGLUC #### [facility] [address] [address] [address] Roscoe Segal Hemoglobin (Bld) [Mass/Vol] 15.0 g/dL Normal 12.0-16.0 [facility] Comment on above: Performed By: #### P OCGLUC #### [facility] [address] [address] [address] Roscoe Segal IG # 0.07 10e3/ul Critically high 0.00-0.03 [facility] Comment on above: Performed By: #### P OCGLUC #### [facility] [address] [place] [address] Dr. Roscoe Segal IG % 0.6 % Critically high 0.0-0.5 [facility] Comment on above: Performed By: #### P OCGLUC #### [facility] [address] [place] [address] Dr. Roscoe Segal LYMPH # 4.7 103/ul Critically high 1.2-3.8 [facility] Comment on above: Performed By: #### P OCGLUC #### [facility] [address] [place] [address] Dr. Roscoe Segal Lymphocytes/100 WBC (Bld) 38.7 % Normal 20.5-60.0 [facility] Comment on above: Performed By: #### P OCGLUC #### [facility] [address] [place] [address] Dr. Roscoe Segal MANUAL DIFF REQ NO Normal [facility] Comment on above: Performed By: #### P OCGLUC #### [facility] [address] [address] [address] Roscoe Segal MCH (RBC) [Entitic mass] 32.1 pg Normal 26.7-34.0 [facility] Comment on above: Performed By: #### P OCGLUC #### [facility] [address] [place] [address] Dr. Roscoe Segal MCHC (RBC) [Mass/Vol] 33.5 g/dL Normal 29.9-35.2 [facility] Comment on above: Performed By: #### P OCGLUC #### [facility] [address] [place] [address] Dr. Roscoe Segal MCV (RBC) [Entitic vol] 95.7 fL Normal 81.0-99.0 [facility] Comment on above: Performed By: #### P OCGLUC #### [facility] [address] [place] [address] Dr. Roscoe Segal MONO # 1.0 103/ul Critically high 0.3-0.8 [facility] Comment on above: Performed By: #### P OCGLUC #### [facility] [address] [place] [address] Dr. Roscoe Segal Monocytes/100 WBC (Bld) 7.9 % Normal 1.7-12.0 [facility] Comment on above: Performed By: #### P OCGLUC #### [facility] [address] [place] [address] Dr. Roscoe Segal NEUT # 6.2 103/ul Normal 1.4-6.5 [facility] Comment on above: Performed By: #### P OCGLUC #### [facility] [address] [place] [address] Dr. Roscoe Segal Neutrophils/100 WBC (Bld) 50.8 % Normal 43.0-75.0 [facility] Comment on above: Performed By: #### P OCGLUC #### [facility] [address] [place] [address] Dr. Roscoe Segal Platelet mean volume (Bld) [Entitic vol] 8.8 fL Critically low 9.5-13.5 [facility] Comment on above: Performed By: #### P OCGLUC #### [facility] [address] [place] [address] Dr. Roscoe Segal PLT 407 103/ul Normal 150-450 [facility] Comment on above: Performed By: #### P OCGLUC #### [facility] [address] [place] [address] Dr. Roscoe Segal RBC 4.68 106/ul Normal 4.20-5.40 [facility] Comment on above: Performed By: #### P OCGLUC #### [facility] [address] [address] [address] Roscoe Segal WBC 12.2 103/ul Critically high 4.0-11.0 [facility] Comment on above: Performed By: #### P OCGLUC #### [facility] [address] [place] [address] Dr. Roscoe Segal LACTATE/LACTIC ACIDon 2021 Lactate [Moles/Vol] 2.1 mmol/L Critically high 0.4-1.9 [facility] Comment on above: Performed By: #### P OCGLUC #### [facility] [address] [place] [address] Dr. Roscoe Segal Lactate [Moles/Vol] 2.2 mmol/L Critically high 0.4-1.9 [facility] Comment on above: Performed By: #### P OCGLUC #### [facility] [address] [place] [address] Dr. Roscoe Segal POINT OF CARE GLUCOSEon 02-13 Glucose [Mass/Vol] 109 mg/dL Critically high 74-106 [facility] Comment on above: Performed By: #### P OCGLUC #### [facility] [address] [place] [address] Dr. Roscoe Segal Glucose [Mass/Vol] 108 mg/dL Critically high 74-106 [facility] Comment on above: Performed By: #### P OCGLUC #### [facility] [address] [place] [address] Dr. Roscoe Segal Glucose [Mass/Vol] 98 mg/dL Normal 74-106 [facility] Comment on above: Performed By: #### I NFLUAB #### [facility] [address] [place] [address] Dr. Roscoe Segal Glucose [Mass/Vol] 274 mg/dL Critically high 74-106 [facility] Comment on above: Performed By: #### C BC #### [facility] [address] [place] [address] Dr. Roscoe Segal Glucose [Mass/Vol] 87 mg/dL Normal 74-106 [facility] Comment on above: Performed By: #### P OCGLUC #### [facility] [address] [address] [address] Roscoe Segal Glucose [Mass/Vol] 98 mg/dL Normal 74-106 [facility] Comment on above: Performed By: #### P OCGLUC #### [facility] [address] [address] [address] Roscoe Segal Glucose [Mass/Vol] 131 mg/dL Critically high 74-106 [facility] Comment on above: Performed By: #### P OCGLUC #### [facility] [address] [place] [address] Dr. Roscoe Segal Glucose [Mass/Vol] 59 mg/dL Critically low 74-106 [facility] Comment on above: Performed By: #### P OCGLUC #### [facility] [address] [place] [address] Dr. Roscoe Segal Glucose [Mass/Vol] 95 mg/dL Normal 74-106 [facility] Comment on above: Performed By: #### P OCGLUC #### [facility] [address] [place] [address] Dr. Roscoe Segal PROF CHEM 8 (BAS METB)on Anion gap [Moles/Vol] 15.2 mmol/L Normal [facility] Comment on above: Performed By: #### P OCGLUC #### [facility] [address] [place] [address] Dr. Roscoe Segal Calcium [Mass/Vol] 8.7 mg/dL Normal 8.5-10.1 [facility] Comment on above: Performed By: #### P OCGLUC #### [facility] [address] [place] [address] Dr. Roscoe Segal Chloride [Moles/Vol] 108 mmol/L Critically high 98-107 [facility] Comment on above: Performed By: #### P OCGLUC #### [facility] [address] [place] [address] Dr. Roscoe Segal CO2 [Moles/Vol] 20.8 mmol/L Critically low 21.0-32.0 [facility] Comment on above: Performed By: #### P OCGLUC #### [facility] [address] [address] [address] Roscoe Segal Creatinine [Mass/Vol] 1.21 mg/dL Critically high 0.55-1.02 [facility] Comment on above: Performed By: #### P OCGLUC #### [facility] [address] [address] [address] Roscoe Segal EGFR-AF ANDORRAN 58 mL/min/1.73m2 Critically low >=60 [facility] Comment on above: Performed By: #### P OCGLUC #### [facility] [address] [address] [address] Rsocoe Segal EGFR-NON AF ANDORRAN 48 mL/min/1.73m2 Critically low >=60 [facility] Comment on above: Performed By: #### P OCGLUC #### [facility] [address] [address] [address] Roscoe Segal Glucose [Mass/Vol] 54 mg/dL Critically low 74-106 [facility] Comment on above: Performed By: #### P OCGLUC #### [facility] [address] [address] [address] Roscoe Segal Potassium [Moles/Vol] 3.0 mmol/L Critically low 3.5-5.1 [facility] Comment on above: Performed By: #### P OCGLUC #### [facility] [address] [address] [address] Roscoe Segal Sodium [Moles/Vol] 141 mmol/L Normal 136-145 [facility] Comment on above: Performed By: #### P OCGLUC #### [facility] [address] [address] [address] Roscoe Segal Urea nitrogen [Mass/Vol] 11.0 mg/dL Normal 7.0-18.0 [facility] Comment on above: Performed By: #### P OCGLUC #### [facility] [address] [address] [address] Roscoe Segal Urea nitrogen/Creatinine [Mass ratio] 9.1 mg/mg Normal [facility] Comment on above: Performed By: #### P OCGLUC #### [facility] [address] [place] [address] Dr. Roscoe Segal XR CHEST 1 Von [...] JUAN BARKER Date: 2022-03-03 01:14 Normal [facility] CBC AUTO DIFFon 01-01-2022 BASO # 0.1 103/ul Normal 0.0-0.1 [facility] Comment on above: Performed By: #### P OCGLUC #### [facility] [address] [place] [address] Dr. Roscoe Segal Basophils/100 WBC (Bld) 0.7 % Normal 0.2-2.0 [facility] Comment on above: Performed By: #### P OCGLUC #### [facility] [address] [place] [address] Dr. Roscoe Segal EO # 0.1 103/ul Normal 0.0-0.7 [facility] Comment on above: Performed By: #### P OCGLUC #### [facility] [address] [address] [address] Roscoe Segal Eosinophils/100 WBC (Bld) 0.9 % Normal 0.9-7.0 [facility] Comment on above: Performed By: #### P OCGLUC #### [facility] [address] [place] [address] Dr. Roscoe Segal Erythrocyte distribution width (RBC) [Ratio] 14.5 % Normal 11.0-15.0 [facility] Comment on above: Performed By: #### P OCGLUC #### [facility] [address] [address] [address] Roscoe Segal Hematocrit (Bld) [Volume fraction] 41.4 % Normal 36.0-48.0 [facility] Comment on above: Performed By: #### P OCGLUC #### [facility] [address] [address] [address] Roscoe Segal Hemoglobin (Bld) [Mass/Vol] 13.4 g/dL Normal 12.0-16.0 [facility] Comment on above: Performed By: #### P OCGLUC #### [facility] [address] [address] [address] Roscoe Segal IG # 0.08 10e3/ul Critically high 0.00-0.03 [facility] Comment on above: Performed By: #### P OCGLUC #### [facility] [address] [place] [address] Dr. Roscoe Segal IG % 0.7 % Critically high 0.0-0.5 [facility] Comment on above: Performed By: #### P OCGLUC #### [facility] [address] [place] [address] Dr. Roscoe Segal LYMPH # 2.4 103/ul Normal 1.2-3.8 [facility] Comment on above: Performed By: #### P OCGLUC #### [facility] [address] [place] [address] Dr. Roscoe Segal Lymphocytes/100 WBC (Bld) 22.0 % Normal 20.5-60.0 [facility] Comment on above: Performed By: #### P OCGLUC #### [facility] [address] [place] [address] Dr. Roscoe Segal MANUAL DIFF REQ NO Normal [facility] Comment on above: Performed By: #### P OCGLUC #### [facility] [address] [place] [address] Dr. Roscoe Segal MCH (RBC) [Entitic mass] 31.2 pg Normal 26.7-34.0 [facility] Comment on above: Performed By: #### P OCGLUC #### [facility] [address] [address] [address] Roscoe Segal MCHC (RBC) [Mass/Vol] 32.4 g/dL Normal 29.9-35.2 [facility] Comment on above: Performed By: #### P OCGLUC #### [facility] [address] [address] [address] Roscoe Segal MCV (RBC) [Entitic vol] 96.3 fL Normal 81.0-99.0 [facility] Comment on above: Performed By: #### P OCGLUC #### [facility] [address] [address] [address] Roscoe Segal MONO # 0.9 103/ul Critically high 0.3-0.8 [facility] Comment on above: Performed By: #### P OCGLUC #### [facility] [address] [place] [address] Dr. Roscoe Segal Monocytes/100 WBC (Bld) 7.7 % Normal 1.7-12.0 [facility] Comment on above: Performed By: #### P OCGLUC #### [facility] [address] [address] [address] Roscoe Segal NEUT # 7.5 103/ul Critically high 1.4-6.5 [facility] Comment on above: Performed By: #### P OCGLUC #### [facility] [address] [place] [address] Dr. Roscoe Segal Neutrophils/100 WBC (Bld) 68.0 % Normal 43.0-75.0 [facility] Comment on above: Performed By: #### P OCGLUC #### [facility] [address] [address] [address] Roscoe Segal Platelet mean volume (Bld) [Entitic vol] 8.8 fL Critically low 9.5-13.5 [facility] Comment on above: Performed By: #### P OCGLUC #### [facility] [address] [place] [address] Dr. Roscoe Segal PLT 317 103/ul Normal 150-450 [facility] Comment on above: Performed By: #### P OCGLUC #### [facility] [address] [place] [address] Dr. Roscoe Segal RBC 4.30 106/ul Normal 4.20-5.40 [facility] Comment on above: Performed By: #### P OCGLUC #### [facility] [address] [address] [address] Roscoe Segal WBC 11.1 103/ul Critically high 4.0-11.0 [facility] Comment on above: Performed By: #### P OCGLUC #### [facility] [address] [place] [address] Dr. Roscoe Segal Covid-19 PCR ([facility])on 12-14 SARS-CoV-2 (COVID-19) RNA SOILA+probe Ql (Unsp spec) Not detected Normal NOT DETECTED [facility] Comment on above: Result Comment: When diagnostic [...] for this test is supported by the [place] of [employer] and Human Service's declaration that [...] used). Performed By: #### P OCGLUC #### [facility] [address] [place] [address] Dr. Roscoe Segal ETHANOL (BLD ALC)on 01-02-20 22 ALC NOTE NOTE: 80 mg/dl is th e legal limit for a blood alcohol level Normal [facility] Comment on above: Performed By: #### C BC #### [facility] [address] [place] [address] Dr. Roscoe Segal Ethanol [Mass/Vol] 197 mg/dL Normal [facility] Comment on above: Performed By: #### C BC #### [facility] [address] [address] [address] Roscoe Segal PROF CHEM 8 (BAS METB)on Anion gap [Moles/Vol] 16.4 mmol/L Normal [facility] [place] [facility] Comment on above: Performed By: #### I NFLUAB #### [facility] [address] [place] [address] Dr. Roscoe Segal Calcium [Mass/Vol] 8.2 mg/dL Critically low 8.5-10.1 [facility] [place] [facility] Comment on above: Performed By: #### I NFLUAB #### [facility] [address] [place] [address] Dr. Roscoe Segal Chloride [Moles/Vol] 107 mmol/L Normal 98-107 [facility] Comment on above: Performed By: #### I NFLUAB #### [facility] [address] [place] [address] Dr. Roscoe Segal CO2 [Moles/Vol] 21.3 mmol/L Normal 21.0-32.0 [facility] Comment on above: Performed By: #### I NFLUAB #### [facility] [address] [place] [address] Dr. Roscoe Segal Creatinine [Mass/Vol] 0.78 mg/dL Normal 0.55-1.02 [facility] Comment on above: Performed By: #### I NFLUAB #### [facility] [address] [place] [address] Dr. Roscoe Segal EGFR-AF ANDORRAN >60 Normal >=60 [facility] Comment on above: Performed By: #### I NFLUAB #### [facility] [address] [place] [address] Dr. Roscoe Segal EGFR-NON AF ANDORRAN >60 Normal >=60 [facility] Comment on above: Performed By: #### I NFLUAB #### [facility] [address] [place] [address] Dr. Roscoe Segal Glucose [Mass/Vol] 310 mg/dL Critically high 74-106 [facility] Comment on above: Performed By: #### I NFLUAB #### [facility] [address] [address] [address] Roscoe Segal Potassium [Moles/Vol] 3.7 mmol/L Normal 3.5-5.1 [facility] Comment on above: Performed By: #### I NFLUAB #### [facility] [address] [address] [address] Roscoe Segal Sodium [Moles/Vol] 141 mmol/L Normal 136-145 [facility] Comment on above: Performed By: #### I NFLUAB #### [facility] [address] [place] [address] Dr. Roscoe Segal Urea nitrogen [Mass/Vol] 8.0 mg/dL Normal 7.0-18.0 [facility] Comment on above: Performed By: #### I NFLUAB #### [facility] [address] [place] [address] Dr. Roscoe Segal Urea nitrogen/Creatinine [Mass ratio] 10.3 mg/mg Normal [facility] Comment on above: Performed By: #### I NFLUAB #### [facility] [address] [place] [address] Dr. Roscoe Segal XR CHEST 1 Von [...] by: GERMAINE FARRELL Date: 2022-01-01 19:08 Normal [facility] CBC AUTO DIFFon 12-24-2021 BASO # 0.1 103/ul Normal 0.0-0.1 [facility] Comment on above: Performed By: #### I NFLUAB #### [facility] [address] [place] [address] Dr. Roscoe Segal Basophils/100 WBC (Bld) 0.9 % Normal 0.2-2.0 [facility] Comment on above: Performed By: #### I NFLUAB #### [facility] [address] [place] [address] Dr. Roscoe Segal EO # 0.2 103/ul Normal 0.0-0.7 [facility] Comment on above: Performed By: #### I NFLUAB #### [facility] [address] [place] [address] Dr. Roscoe Segal Eosinophils/100 WBC (Bld) 2.4 % Normal 0.9-7.0 [facility] Comment on above: Performed By: #### I NFLUAB #### [facility] [address] [place] [address] Dr. Roscoe Segal Erythrocyte distribution width (RBC) [Ratio] 14.8 % Normal 11.0-15.0 [facility] Comment on above: Performed By: #### I NFLUAB #### [facility] [address] [place] [address] Dr. Roscoe Segal Hematocrit (Bld) [Volume fraction] 41.1 % Normal 36.0-48.0 [facility] Comment on above: Performed By: #### I NFLUAB #### [facility] [address] [place] [address] Dr. Roscoe Segal Hemoglobin (Bld) [Mass/Vol] 13.0 g/dL Normal 12.0-16.0 [facility] Comment on above: Performed By: #### I NFLUAB #### [facility] [address] [place] [address] Dr. Roscoe Segal IG # 0.10 10e3/ul Critically high 0.00-0.03 [facility] Comment on above: Performed By: #### I NFLUAB #### [facility] [address] [place] [address] Dr. Roscoe Segal IG % 1.1 % Critically high 0.0-0.5 [facility] Comment on above: Performed By: #### I NFLUAB #### [facility] [address] [place] [address] Dr. Roscoe Segal LYMPH # 2.0 103/ul Normal 1.2-3.8 [facility] Comment on above: Performed By: #### I NFLUAB #### [facility] [address] [place] [address] Dr. Roscoe Segal Lymphocytes/100 WBC (Bld) 21.5 % Normal 20.5-60.0 [facility] Comment on above: Performed By: #### I NFLUAB #### [facility] [address] [place] [address] Dr. Roscoe Segal MANUAL DIFF REQ NO Normal [facility] Comment on above: Performed By: #### I NFLUAB #### [facility] [address] [place] [address] Dr. Roscoe Segal MCH (RBC) [Entitic mass] 31.0 pg Normal 26.7-34.0 [facility] Comment on above: Performed By: #### I NFLUAB #### [facility] [address] [place] [address] Dr. Roscoe Seagl MCHC (RBC) [Mass/Vol] 31.6 g/dL Normal 29.9-35.2 [facility] Comment on above: Performed By: #### I NFLUAB #### [facility] [address] [place] [address] Dr. Roscoe Segal MCV (RBC) [Entitic vol] 98.1 fL Normal 81.0-99.0 [facility] Comment on above: Performed By: #### I NFLUAB #### [facility] [address] [place] [address] Dr. Roscoe Segal MONO # 0.8 103/ul Normal 0.3-0.8 [facility] Comment on above: Performed By: #### I NFLUAB #### [facility] [address] [place] [address] Dr. Roscoe Segal Monocytes/100 WBC (Bld) 8.9 % Normal 1.7-12.0 [facility] Comment on above: Performed By: #### I NFLUAB #### [facility] [address] [address] [address] Roscoe Segal NEUT # 6.0 103/ul Normal 1.4-6.5 [facility] Comment on above: Performed By: #### I NFLUAB #### [facility] [address] [address] [address] Roscoe Segal Neutrophils/100 WBC (Bld) 65.2 % Normal 43.0-75.0 [facility] Comment on above: Performed By: #### I NFLUAB #### [facility] [address] [place] [address] Dr. Roscoe Segal Platelet mean volume (Bld) [Entitic vol] 9.4 fL Critically low 9.5-13.5 [facility] Comment on above: Performed By: #### I NFLUAB #### [facility] [address] [place] [address] Dr. Roscoe Segal PLT 332 103/ul Normal 150-450 [facility] Comment on above: Performed By: #### I NFLUAB #### [facility] [address] [place] [address] Dr. Roscoe Segal RBC 4.19 106/ul Critically low 4.20-5.[address] [facility] Comment on above: Performed By: #### I NFLUAB #### [facility] [address] [place] [address] Dr. Roscoe Segal WBC 9.2 103/ul Normal 4.0-11.0 [facility] Comment on above: Performed By: #### I NFLUAB #### [facility] [address] [place] [address] Dr. Roscoe Segal GLYCOHEMOGLOBIN A1Con 2021 ADA RECOMMENDATION SEE BELOW Normal [facility] Comment on above: Result Comment: ADA RECOMMENDED LIMIT 4.0 - 6.0 ADA THERAPEUTIC TARGET < 7.0 ACTION SUGGESTED > 7.0 Performed By: #### C BC #### [facility] [address] [place], [place] [address] Dr. Roscoe Segal Glucose [Mass/Vol] 217 mg/dL Normal [facility] Comment on above: Performed By: #### C BC #### [facility] [address] [id number] Roscoe Segal HbA1c (Bld) [Mass fraction] 9.2 % Critically high 4.5-6.2 [facility] Comment on above: Performed By: #### C BC #### [facility] [address] [place] [address] Dr. Roscoe Segal LIPID PROFILEon 12-24-2021 CHOL-HDL RATIO NORM SEE BELOW [facility] Comment on above: Result Comment: 3.3 - 4.4 LOW RISK 4.4 - 7.1 AVERAGE RISK 7.1 - 11.0 MODERATE RISK >11.0 HIGH RISK Performed By: #### C BC #### [facility] [address] [place] [address] Dr. Roscoe Segal Cholesterol [Mass/Vol] 191 mg/dL Normal <=200 Th [facility] Comment on above: Performed By: #### C BC #### [facility] [address] [place] [address] Dr. Roscoe Segal Cholesterol in HDL [Mass/Vol] 52 mg/dL Normal 40-60 [facility] Comment on above: Performed By: #### C BC #### [facility] [address] [place] [address] Dr. Roscoe Segal Cholesterol in LDL [Mass/Vol] 95.6 mg/dL Normal [facility] Comment on above: Performed By: #### C BC #### [facility] [address] [address] [address] Roscoe Segal Cholesterol.total/Chol esterol in HDL [Mass ratio] 3.7 {ratio} Normal [facility] Comment on above: Performed By: #### C BC #### [facility] [address] [place] [address] Dr. Roscoe Segal HDL NORMAL > or = 60 mg/dl - LO W CARDIOVASCULAR RISK <40 mg/dl - HIGH CARDIOVASCULAR RISK Normal [facility] Comment on above: Performed By: #### C BC #### [facility] [address] [address] [address] Roscoe Segal LDL CALC NORMAL SEE BELOW Normal [facility] Comment on above: Result Comment: <100 mg/dl OPTIMAL 100 - 129 mg/dl NEAR OR ABOVE OPTIMAL 130 - 159 mg/dl BORDERLINE HIGH 160 - 189 mg/dl HIGH >190 mg/dl VERY HIGH Performed By: #### C BC #### [facility] [address] [address] [address] Roscoe Segal Triglyceride [Mass/Vol] 217 mg/dL Critically high <=150 [facility] Comment on above: Performed By: #### C BC #### [facility] [address] [place] [address] Dr. Roscoe Segal VLDL CALC 43.4 mg/dL Normal [facility] Comment on above: Performed By: #### C BC #### [facility] [address] [place] [address] Dr. Roscoe Segal MICROALBUMIN, RAND URon 12-14 mALB <1.3 Normal <=30.0 [facility] Comment on above: Performed By: #### P OCGLUC #### [facility] [address] [place] [address] Dr. Roscoe Segal PROF 14(COMP METB)on 022 Albumin [Mass/Vol] 3.0 g/dL Critically low 3.4-5.0 Th [facility] Comment on above: Performed By: #### C BC #### [facility] [address] [place] [address] Dr. Roscoe Segal Albumin/Globulin [Mass ratio] 0.9 {ratio} Normal [facility] Comment on above: Performed By: #### C BC #### [facility] [address] [place] [address] Dr. Roscoe Segal ALP [Catalytic activity/Vol] 72 U/L Normal 46-116 [facility] Comment on above: Performed By: #### C BC #### [facility] [address] [place] [address] Dr. Roscoe Segal ALT [Catalytic activity/Vol] 17 U/L Normal 14-59 [facility] Comment on above: Performed By: #### C BC #### [facility] [address] [address] [address] Roscoe Segal Anion gap [Moles/Vol] 12.3 mmol/L Normal Th [facility] Comment on above: Performed By: #### C BC #### [facility] [address] [address] [address] Roscoe Segal AST [Catalytic activity/Vol] 15 U/L Normal 15-37 [facility] Comment on above: Performed By: #### C BC #### [facility] [address] [place] [address] Dr. Roscoe Segal Bilirubin [Mass/Vol] 0.1 mg/dL Critically low 0.2-1.0 [facility] Comment on above: Performed By: #### C BC #### [facility] [address] [place] [address] Dr. Roscoe Segal Calcium [Mass/Vol] 8.9 mg/dL Normal 8.5-10.1 [facility] Comment on above: Performed By: #### C BC #### [facility] [address] [place] [address] Dr. Roscoe Segal Chloride [Moles/Vol] 102 mmol/L Normal 98-107 [facility] Comment on above: Performed By: #### C BC #### [facility] [address] [place] [address] Dr. Roscoe Segal CO2 [Moles/Vol] 24.0 mmol/L Normal 21.0-32.0 [facility] Comment on above: Performed By: #### C BC #### [facility] [address] [place] [address] Dr. Roscoe Segal Creatinine [Mass/Vol] 0.91 mg/dL Normal 0.55-1.02 [facility] Comment on above: Performed By: #### C BC #### [facility] [address] [place] [address] Dr. Roscoe Segal EGFR-AF ANDORRAN >60 Normal >=60 [facility] Comment on above: Performed By: #### C BC #### [facility] [address] [address] [address] Roscoe Segal EGFR-NON AF ANDORRAN >60 Normal >=60 [facility] Comment on above: Performed By: #### C BC #### [facility] [address] [address] [address] Roscoe Segal Globulin (S) [Mass/Vol] 3.4 g/dL Normal [facility] Comment on above: Performed By: #### C BC #### [facility] [address] [address] [address] Roscoe Segal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 [place] [address] Type: ADM IN Attending Dr: Eron Wood [...] MPV Neut % (Auto) Lymph % (Auto) [place] % (Auto) Eos % (Auto) Baso % (Auto) Nucleat RBC Rel Count Neut # (Auto) Lymph # (Auto) [place] # (Auto) Eos # (Auto) Baso # [...] MPV Neut % (Auto) Lymph % (Auto) [place] % (Auto) Eos % (Auto) Baso % (Auto) Nucleat RBC Rel Count Neut # (Auto) Lymph # (Auto) [place] # (Auto) Eos # (Auto) Baso # [...] % (Auto) 73.7 Lymph % (Auto) 13.5 [place] % (Auto) 9.2 Eos % (Auto) 2.9 Baso % (Auto) 0.7 Nucleat RBC Rel Count 0.1 Neut # (Auto) 7.2 Lymph # (Auto) 1.3 [place] # (Auto) 0.9 H Eos # (Auto) [...] MPV Neut % (Auto) Lymph % (Auto) [place] % (Auto) Eos % (Auto) Baso % (Auto) Nucleat RBC Rel Count Neut # (Auto) Lymph # (Auto) [place] # (Auto) Eos # (Auto) Baso # [...] signed by Valeriano Horta MD> 03/12/23 0908 [facility] Work Phone: 1(829) 795-867107-28-2023 Progress note Author Eron Wood [facility] March 12, 2023 9:03am Note Date/Time March 12, 2023 9:03 am [facility] [address] [place] [address] Hospitalist Progress Note Signed Patient: Christiane Perez MR#: [id number] : 1975 Acct:[id number] Age/Sex: 48 / F Adm Date: 3 Loc: Room: [address] [place] [address] Type: ADM IN Attending Dr: Eron Wood [...] Tablet PO 03/09/24 20:59 20 mg BID ROGLEIO Administration Fluticasone Propionate 1 puff 03/11/23 09:00 [...] Appreciate pulmonary and thoracic surgery. Continue morphine, [place] as needed for pain. (2) Pneumonia: Plan: [...] signed by Eron Wood MD> 03/12/23 0903 [facility] Work Phone: [phone]) 112-341207-27-2023 [facility] Consult note Author Errol Nicole [facility] March 11, 2023 12:00pm Note Date/Time March 11, 2023 12:0 0pm [facility] [address] [place] [address] Pulmonology Consult Note Signed Patient: Christiane Perez MR#: [id number] : 1975 Acct:[id number] Age/Sex: 48 / F Adm Date: 3 Loc: Room: [address] [place] [address] Type: ADM IN Attending Dr: Eron Wood [...] x- ray, then a CT, done at [facility] and was told that she had an abscess in the left lung . She refused to be admitted, went home on Levaquin and clindamycin, followed up with her primary care physician who advised her to come back and be admitted here at [facility]. Patient has a large dense consolidated [...] mcg-glycopyr 9 mcg-formot 4.8 mcg/actuation HFA inhaler (NEHPztri SignNowphere) 1 puff inhalation DAILY 03/10/23 [History Confirmed [...] signed by Errol Nicole MD> 03/11/23 1200 [facility] Work Phone: 1(916) 501-759007-27-2023 Progress note Author Eron Wood [facility] March 11, 2023 10:50am Note Date/Time March 11, 2023 10:4 9am [facility] [address] [place] [address] Hospitalist Progress Note Signed Patient: Christiane Perez MR#: [id number] : 1975 Acct:[id number] Age/Sex: 48 / F Adm Date: 3 Loc: Room: [address] [place] [address] Type: ADM IN Attending Dr: Eron Wood [...] 1,000 Ml IV 03/09/24 16:44 75 mls/hr .[id number] ROGELIO Administration Magnesium Sulfate 2 gm in [...] [facility] Protocol Insulin Glargine 20 units 03/10/23 [...] and thoracic surgery. Sendsputum culture. Continue morphine, [place] as needed for pain. Stop IV fluid [...] signed by Eron Wood MD> 03/11/23 1050 [facility] Work Phone: 1(551) 439-294507-26-2023 History and physical note Author Eron Wood [facility] March 10, 2023 4:48pm Note Date/Time March 10, 2023 4:49 pm [facility] [address] [place] [address] Hospitalist H&P Signed Patient: Christiane Perez MR#: [id number] : 1975 Acct:[id number] Age/Sex: 48 / F Adm Date: 3 Loc: Room: [address] [place] [address] Type: ADM IN Attending Dr: Eron Wood MD Copies to: Eron MD Shaikh Anthony Wood MD~ HPI DATE OF EXAMINATION: 03/10/23 CHIEF [...] negative unless noted below or in HPI [facility] Medical History (Updated 03/10/23 @ 16:46 [...] 9 mcg-formot 4.8 mcg/actuation HFA inhaler (Breztri SignNowphere) 1 puff inhalation DAILY 03/10/23 [History Confirmed [...] % (Auto) 5.7 % (.) 03/10/23 12:55 [place] % (Auto) 7.2 % (.) 03/10/23 12:55 Eos % (Auto) 1.1 % (.) 03/10/23 12:55 Baso % (Auto) 0.2 % (.) 03/10/23 12:55 Nucleat RBC Rel Count 0.1 /100 WBC (0-0.5) 03/10/23 12:55 Neut # (Auto) 14.2 x10E3/uL (1.8-7.7) H 03/10/23 12:55 Lymph # (Auto) 1.0 x10E3/uL (1.00-4.8) 03/10/23 12:55 [place] # (Auto) 1.2 x10E3/uL (0.0-0.8) H 03/10/23 [...] <Electronically signed by Eron Wood MD> 03/10/23 1456 [facility] Work Phone: 1(294) 675-599507-26-2023 Consult note Author Valeriano Horta [facility] March 10, 2023 3:27pm Note Date/Time March 10, 2023 3:27 pm [facility] [address] [place] [address] Cardiothoracic Consult Note Signed Patient: Christiane Perez MR#: [id number] : 1975 Acct:[id number] Age/Sex: 48 / F Adm Date: 3 Loc: ER Room: Type: [facility] ER Attending Dr: Copies to: DO Valeriano Morris MD Shaikh Fawwad, MD~ HPI Consult Date: 03/10/23 Primary Care Provider: Shaikh Anthony MD Consult Narrative Reason for consult: lung abscess HPI: Ms. Perez is a 48 year old female with persistent SOB. CT read as lung abscess with elevated WBC. Pt agreed with admission. Chart and CT reviewed. [facility] Medical History (Updated 03/10/23 @ 15:26 [...] signed by Valeriano Horta MD> 03/10/23 1527 [facility] Work Phone: 1([phone]) 299-300507-02-2023 Evaluation note* Encounter Date Diagnosis Assessment Notes [...] evaluation for possible sequelae into bronchitis/pneumoni a. [employer] Other 08-26-2022 NotePROCEDURE: XR HIP RT 2 3V WO PELVIS HISTORY: Pain in right hip joint , chronic COMPARISON: None. FINDINGS: BONES:No fracture, acute abnormality, or significant arthropathy. SOFT TISSUES:No visible soft tissue swelling. EFFUSION:None visible. OTHER: Negative. IMPRESSION: 1. Normal examination. Electronically authenticated by: GERMAINE FARRELL Date: 2022-04-10 08:14[facility] Author Krunal Kelly [facility] March 17, 2023 1:24pm Note Date/Time March 14, 2023 1:54 pm [facility] [address] [place] [address] Discharge Summary Signed Patient: Christiane Perez MR#: [id number] : 1975 Acct:[id number] Age/Sex: 48 / F Adm Date: 3 Loc: Room: [address] [place] [address]: Krunal Kelly DO Copies to: [...] % (Auto) 71.0, Lymph % (Auto) 16.8, [place] % (Auto) 7.1, Eos % (Auto) 4.4, Baso % (Auto) 0.7, Nucleat RBC Rel Count 0.1, Neut # (Auto) 6.8, Lymph # (Auto) 1.6, [place] # (Auto) 0.7, Eos # (Auto) 0.4, [...] signed by Krunal Kelly, DO> 03/17/23 1324 [facility] Work Phone: Evaluation noteNo Assessments Information Available [facility] assessment information available [facility] noteNo InformationNort independenceIT Other Evaluation note* Diagnosis Onset Date Resolution Status Abscess of left lung with pneumonia acute Abscess of lung acute COPD (chronic obstructive pulmonary disease) acute Diabetes mellitus, type 2 ac [place] ira Lung mass acute Pneumonia acute Tobacco abuse acute [facility] Work Phone: Evaluhccjm note* Diagnosis Hoarse- Primary Dysphonia Chronic laryngitis [...] parital hysterectomy 2009 Hospitalization History see above [employer] Other Hisalir general Narrative - Reported* Type Description Date Medical History DIABETIC Medical History BI POLAR Medical History NEUROPATHY IN LEGS Medical History COPD Medical History GENITAL HERPES Medical History high cholesterol Medical History high blood pressure Surgical History Cholecystectomy Surgical History tonsillectomy Surgical History breast reduction 1996 Surgical History parital hysterectomy 2009 Hospitalization History [facility] [place] Abcess 03/2023 Hospitalization History aspiration pneumonia 201 5 [employer] Other Hisqjnn general Narrative - Reported* Type Description Date Medical History DIABETIC Medical History BI POLAR Medical History NEUROPATHY IN LEGS Medical History COPD Medical History GENITAL HERPES Medical History high cholesterol Medical History high blood pressure Medical History [facility] lung abcess 02/2023 -- [facility] Surgical History Cholecystectomy Surgical History tonsillectomy Surgical History breast reduction 1996 Surgical History parital hysterectomy 2009 Hospitalization History [facility] Lung Abcess 03/2023 Hospitalization History aspiration pneumonia 201 5 [employer] Other Hospital Discharge instructions Additional Instructions Continue home oxygen per chronic orders.[facility] Work Phone: Hospital Discharge instructions Additional Instructions Steroids daily Use albuterol inhaler as instructed Push fluids Rest Follow with your PCP Avoid smoking Return here if any problems persist worse[facility] Work Phone: Advance Directives No [...] Referred Provider Naomi Bernard [place] [address] [place] [place], [place],[address] Referred Provider Specialty Ear, Nose an d [...] DATE CREATED AUTHOR AUTHOR'S ORGANIZ ATION 02/19/2023 [facility] DATE CREATED AUTHOR AUTHOR'S ORGANIZ ATION 03/24/2023 [facility] DATE CREATED AUTHOR AUTHOR'S ORGANIZ ATION 10/02/2023 [facility] DATE CREATED AUTHOR AUTHOR'S ORGANIZ ATION 10/21/2023 [facility] DATE CREATED AUTHOR AUTHOR'S ORGANIZ ATION 01/12/2024 [facility] EPIC REASON FOR VISIT (unrecogniz ed section and content) Reason Comments Hoarseness X 4-5 mo Care Teams (unrecognized sec tion and content) Team Status: Active Member Role Status Rasheed Cruz MD Primary Care Provider Active Team Status: Inactive Member Role Status Rasheed Cruz MD Primary Care Provider Active Lavell Salazar DO Emergency Provider Active Eron Wood MD Admit Provider Active rErol Nicole MD Other Provider Active Valeriano Horta [...] Active Errol Nicole MD Attending Provider Active Credit Card Control Clerk Relationship Specialty Start Date End Date Shaikh Cruz MD PCP - General Internal Medicine 02/24/23 [employer] Control Clerk Relationship Specialty Start Date End Date Shaikh Cruz MD [address] [place] [address] PCP - General Internal Medicine 09/29/23 Credit Card Control Clerk Relationship Specialty Start Date End Date Shaikh Cruz MD [address] [place] [address] PCP - General Internal Medicine 09/29/23 [...] BE BASED ON THE PRIMARY CLINICAL RECORDS. [facility]. provides no warranty or guarantee of the accuracy or completeness of information in this document.
[2024-03-06 15:05] LABS: Basophils Absolute Auto 0.1 10^3/uL (0.0-0.1); Basophils Percent Auto 0.6 % (0.2-2.0); Eosinophils Percent Auto 0.2 % (0.9-7.0); Hematocrit 35.7 % (36.0-48.0); Hemoglobin 11.5 g/dL (12.0-16.0); Immature Granulocytes Abs Auto 0.06 10^3/uL (0.00-0.03); Immature Granulocytes Pct Auto 0.6 % (0.0-0.5); Lymphocytes Absolute Auto 1.6 10^3/uL (1.2-3.8); Lymphocytes Percent Auto 16.9 % (20.5-60.0); Mean Corpuscular HGB Conc 32.2 g/dL (29.9-35.2); Mean Corpuscular Hemoglobin 31.9 pg (26.7-34.0); Mean Corpuscular Volume 98.9 fL (81.0-99.0); Monocytes Absolute Auto 0.7 10^3/uL (0.3-0.8); Monocytes Percent Auto 7.2 % (1.7-12.0); Neutrophils Absolute Auto 7.1 10^3/uL (1.4-6.5); Neutrophils Percent Auto 74.5 % (43.0-75.0); Platelet Count 313 10^3/uL (150-450); Red Blood Count 3.61 10^6/uL (4.20-5.40); Red Cell Distribution Width 13.5 % (11.0-15.0); White Blood Count 9.5 10^3/uL (4.0-11.0)
[2024-03-06] MEDS: 0.9 % SODIUM CHLORIDE 1,000 ML 1000 ML IV ×2 (15:07→15:16)
[2024-03-06 15:09] LABS: PCO2 VBG 46.5 mmHg (40.0-52.0); pH VBG 7.332 (7.330-7.430)
[2024-03-06 15:24] LABS: Creatine Kinase 20 U/L (26-192)
[2024-03-06 15:31] LABS: Alanine Aminotransferase 15 U/L (14-59); Albumin Globulin Ratio 0.6; Albumin Level 1.8 g/dL (3.4-5.0); Alkaline Phosphatase 67 U/L (46-116); Anion Gap 10.8; Aspartate Amino Transferase 13 U/L (15-37); BUN Creatinine Ratio 5.6; Bilirubin Total 0.2 mg/dL (0.2-1.0); Carbon Dioxide 24.6 mmol/L (21.0-32.0); Chloride 108 mmol/L (98-107); Estimated GFR (African America >60 (>=60); Estimated GFR (Non-African Ame >60 (>=60); Globulin 2.8 g/dL; Glucose 145 mg/dL (74-106); Lipase <10.0 U/L (16.0-77.0); Magnesium 1.3 mg/dL (1.8-2.4); Potassium 3.4 mmol/L (3.5-5.1); Sodium 140 mmol/L (136-145); Total Protein 4.6 g/dL (6.4-8.2); Troponin I High Sensitivity 6.7 pg/mL (4.0-51.3)
--- NOTE | 2024-03-06 16:17 | PC.NURSE ---
pt was found extremely lethargic per daughter at home. when EMS got there, pt was attempting to drink 2 mountain dews because she felt like her blood sugar was low -- it was 409, per EMS. pt arrives to ER AxOx4. BS in triage 128
[2024-03-06] MEDS: POTASSIUM BICARBONATE/CIT 25 MEQ TABLET EFF 50 MEQ PO (17:25)
== END 2024-03-06 17:30 | disposition home or self-care (01) ==
PROVIDERS: Emergency Provider Emergency Medicine; PCP Internal Medicine
DX: R40.4 Transient alteration of awareness (principal); E87.6 Hypokalemia; E11.65 Type 2 diabetes mellitus with hyperglycemia; Z79.4 Long term (current) use of insulin; E66.9 Obesity, unspecified; F17.200 Nicotine dependence, unspecified, uncomplicated; Z68.35 Body mass index [BMI] 35.0-35.9, adult
CPT/HCPCS: 36415; 70450; 71046; 80053; 82550; 82800; 83690; 83735; 84484; 85025; 93005; 96360; 99285

== ENCOUNTER 2024-03-08 11:42 | Emergency (ER) | payer MEDICARE, MEDICAID, SELFPAY ==
[2024-03-08 11:49] VITALS: BP 176/103; PULSE 74; TEMP 36.4; O2SAT 99; BMI 31.9
--- OUTSIDE RECORDS SUMMARY | 2024-03-08 11:56 | XMS_ITS | CCD ---
Author Organization [facility] Care Team Providers Care Department [employer] Name Role Phone Walker Alba Attending Provider [phone] Audi Hdez Primary Care Provider PROVIDER, UNKNOWN [...] Unavailable ZIEBSKY, DR GERMAINE Adams Consulting Unavailable SANITAGO, KERRI Attending Unavailable SANTIAGO, KERRI Consulting Unavailable [...] Unavailable PAY ., DR ZAPATA Attending Unavailable TRAIL, DR SHAJI Osborn Consulting Unavailable PAY ., DR ZAPATA Admitting Unavailable PAY ., DR ZAPATA Consulting Unavailable SAVITA .CHRISTIANE Consulting Unavailable FAWWAD, STEPHENS H Primary Care Unavailable JENNY, DR YASMIN Cortes Attending Unavailsanthosh ALVARADO, DR YASMIN Cortes Consulting Unavailsanthosh ALVARADO, DR YASMIN Cotres Admitting Unavailsanthosh e BUD, DR GERMAINE Adams Consulting Unavailable Alberto, Katie Unavailable Errol Nicole Unavailable MD Joyce Cruz Primary Care Provider DO Lavell Salazar Emergency Provider MD Eron Wood Admit Provider MD Errol Nicole Other Provider MD Valeriano Horta Other Provider DO Krunal Kelly Attending Provider [phone] MD Valeriano Horta Attending Provider Courtney Valladares Unavailable MD Anthony [facility] Primary Care Provider MD Valeriano Horta Attending Provider [phone] FAVIO [place]illed[place] Emergency Provider MD Anthony [facility] Primary Care Provider MD Yasmin Leung Emergency Provider SHANTI Marcum Emergency Provider MD Errol Nicole Attending Provider Bambi Delgado Unavailable Anthony MASTERS, [facility] Primary Care Provider Anthony MASTERS, [facility] Primary Care Provider [phone] MARVIN SHERWOOD Attending Unavailable PAVNIGHAT, AUDI L Referring Unavailable PAVLOCK, MAX L Primary Care Unavailable Marilee Marcum Admitting Unavailable Marilee Marcum Attending Unavailable [facility] Primary Care Unavailable Chaban, Kamal Admitting Unavailable Patel Nicoleal Attending [facility]available [facility] Unavailable Valeriano Horta Admitting Unavailable Valeriano Horta Attending Unavailable [facility] Primary Care Unavailable Krunal Kelly Attending Unavailabl e Eron Wood Admitting Unavailable Chaban, Kamal Consulting Unavailable [facility] Primary Care Unavailable Valeriano Horta Consulting [facility]available [facility] Unavailable Elio Villeda Admitting [...] (4 sources) SUMAtriptan Drug Allergy 1 Hives [facility] (1 source) Plasmin Drug Allergy 6 [facility] Repository (16 sources) SUMAtriptan Drug Allergy 3 shortness of breath, Anxiety [facility] (1 source) SUMAtriptan; Translations: [SUMATRIPTAN SUCCINATE] Drug Allergy 0 [facility] Repository (1 source) SUMAtriptan Drug Allergy 4 [facility] Repository Medications Current Medications Medication Drug Class(es) Dates Sig (Normalized) Sig (Original) [id number] actuat albuterol 0.09 mg/actuat metered dose [...] Twice a day Active Continuous Blood Gluc Scratch Brusher (FreeStyle Magali 14 Day [place]) device (4 sources) Continuous Blood Gluc Scratch Brusher (FreeStyle Magali 14 Day [place]) device 4 (four) times a day as [...] 1.5 mg/ml oral solution (4 sources) Uncompetitive L-lsxdlu-Z-aspartate Receptor Antagonist, Sigma-1 Agonist Start: 2022 take 10 mL by mouth every eight hours [place] DM 7.5-7.5 MG/5ML 10 mL Orally every [...] polyneuropathy, with long-term current use of insulin ([facility]) TAKE 1 TABLET BY MOUTH THREE [...] 2023 5:04pm take 1 capsule by mo [facility] every eight hours Gabapentin 300 MG [...] polyneuropathy, with long-term current use of insulin ([facility]) Inject 20 Units under the skin [...] tablet Orally Once a day Active nystatin [id number] unt/ml oral suspension (2 sources) Polyene Antifungal Start : 09-29 End: 10-09 nystatin (Mycostatin) 226689 UNIT/ML suspension Indications: Thrush Take 5 mL [...] 2.5 ug by inhalation twice daily Tiotropium [place] (Spiriva Respimat) 2.5 mcg/actuation mist Discontinued 1 [...] stomatitis] 09-29-2023 Episodic Other aftercare (1 source) long-term (current) use of insulin; Translations: [AUTOMOTIVE SERVICE ADVISOR CURRENT USE OF INSULIN] Onset: 09-15-2022 Episodic Other aftercare (1 source) Other residential (current) drug therapy; Translations: [OTH AUTOMOTIVE SERVICE ADVISOR CURRENT DRUG THERAPY] Onset: 09-15-2022 Episodic Other [...] wo conon 08-30-2023 CT chest wo con [facility] [place] [address] [place] [address] CT Scan Report Signed Patient: Christiane Perez MR#: [id number] 2 : 1975 Acct:[id number] Age/Sex: 48 / F ADM Date: 08/30/23 Loc: CT Room: Type: [facility] Attending Dr: Errol Nicole MD Copies [...] Johnson Jr., D.O.08/30/2023 3:21 PM Dictation Location: [place] [address] Transcribed By: [facility] 08/30/23 1521 Dictated By: Rodger Johnson Jr, DO 08/30/23 1517 Signed By: 08/30/23 1521 Normal [facility] Activated partial thrombopla stin time (aPTT) in platelet poor plasma by coagulation aOrdered By: Marilee Marcum on 08-06-2023 aPTT Coag (PPP) [Time] 32.3 s 25.1-36.5 [facility] Comment on above: A hematocrit value g reater than 55% may lead to inaccurate results in coagulation testing. Patients having hematocrit values >55% require a special collection tube for coagulation studies. Please contact the laboratory at [phone] for redraw instructions. B-Type Natriuretic Peptideon 08-06-2023 Natriuretic peptide B (Bld) [Mass/Vol] 29.0 pg/mL Normal 5-100 [facility] Comment on above: Result Comment: PERF ORMED BY: [place] [id number] PATHOLOGIST OPERATOR WAYNE WAKEFIELD M.D. Performed By: #### V ANCT #### [facility] [address] [place] [address] Basic Metabolic Panelon 07-17 Anion gap [Moles/Vol] 9.8 mmol/L Normal 6.0-15.0 [facility] Comment on above: Performed By: #### V ANCT #### [facility] [address] [place] [address] [place] Calcium [Mass/Vol] 8.6 mg/dL Normal 8.6-10.3 [facility] Comment on above: Performed By: #### V ANCT #### [facility] [address] [place] [address] [place] Chloride [Moles/Vol] 106 mmol/L Normal 98-107 [facility] Comment on above: Performed By: #### V ANCT #### [facility] [address] [place] [address] [place] CO2 [Moles/Vol] 24.9 mmol/L Normal 21.0-31.0 [facility] Comment on above: Performed By: #### V ANCT #### [facility] [address] Creatinine [Mass/Vol] 0.72 mg/dL Normal 0.60-1.20 [facility] Comment on above: Performed By: #### V ANCT #### [facility] [address] [place] [address] [place] Creatinine Clr Calc Pharmacy 116.58 [facility] Comment on above: Result Comment: PERF ORMED BY: [place] [address] PATHOLOGIST OPERATOR WAYNE WAKEFIELD M.D. Performed By: #### V ANCT #### [place] [address] [place] GFR/1.73 sq M.predicted MDRD (S/P/Bld) [Vol rate/Area] mL/min/{1.73_m2} [facility] Comment on above: Performed By: #### V ANCT #### [place] [address] [place] Glucose [Mass/Vol] 99 mg/dL Normal 70-100 [facility] Comment on above: Result Comment: [place] Glucose Reference Range is dependent on time and content of last meal. Glucose of more than 200 mg/dL in a nonstressed, ambulatory subject supports the diagnosis of Diabetes Mellitus. ADA recommended reference range Performed By: #### V ANCT #### [facility] [address] [place] [address] [place] Potassium [Moles/Vol] 3.7 mmol/L Normal 3.5-5.1 [facility] Comment on above: Performed By: #### V ANCT #### [place] [address] [place] Sodium [Moles/Vol] 137 mmol/L Normal 136-145 [facility] Comment on above: Performed By: #### V ANCT #### [facility] [address] Urea nitrogen [Mass/Vol] 8 mg/dL Normal 7-25 [facility] Comment on above: Performed By: #### V ANCT #### [facility] [address] Basophils Auto (Bld) [#/Vol] Ordered By: Marilee Marcum on 08-06-2023 Basophils (Bld) [#/Vol] 0.1 10*3/uL 0.0-0.2 [facility] Basophils/100 WBC Auto (Bld) Ordered By: Marilee Marcum on 08-06-2023 Basophils/100 WBC (Bld) 0.5 % . [facility] COVID CepheidOrdered By: Marielos Marcum on 08-06-2023 SARS-CoV-2 (COVID-19) Ab IA Ql Negative Negative [facility] Comment on above: This is a duplicate Cepheid Xpert Xpress CoV-2/Flu/RSV Plus RNA by RT-PCR result to be used for statistical tracking purpose only. SARS-CoV-2 (COVID-19) RNA SOILA+probe Ql (Unsp spec) [facility] COVID-19 / Flu A/B / RSV PCR [...] or Cepheid Disclaimer revoked sooner. PERFORMED BY: [place] [id number] PATHOLOGIST OPERATOR WAYNE WAKEFIELD M.D. [facility] Comment on above: Performed By: #### V ANCT #### [address] Calcium [Mass/volume] in Ser um or PlasmaOrdered By: Marilee Marcum on 08-06-2023 Calcium [Mass/Vol] 8.6 mg/dL 8.6-10.3 [facility] Carbon dioxide, total [Moles /volume] in Serum or PlasmaOrdered By: Marilee Marcum on 08-06-2023 CO2 [Moles/Vol] 24.9 mmol/L 21.0-31.0 [facility] Cepheid COVID PCR Negativeon 08-06-2023 SARS-CoV-2 (COVID-19) RNA SOILA+probe Ql (Unsp spec) Negative Normal Negative [facility] Comment on above: Result Comment: This is a duplicate CepJiemai.comid Xpert Xpress CoV-2/Flu/RSV Plus RNA by RT-PCR result to be used for statistical tracking purpose only. PERFORMED BY: [place] [address] PATHOLOGIST OPERATOR WAYNE WAKEFIELD M.D. Performed By: #### V ANCT #### [place] [address] [place] Chloride [Moles/volume] in S kaitlin or PlasmaOrdered By: Marilee Marcum on 08-06-2023 Chloride [Moles/Vol] 106 mmol/L 98-107 [facility] Complete Blood Count Auto Di ffon 08-06-2023 Basophils (Bld) [#/Vol] 0.1 10*3/uL Normal 0.0-0.2 [facility] Comment on above: Result Comment: PERF ORMED BY: [place] [address] PATHOLOGIST OPERATOR WAYNE WAKEFIELD M.D. Performed By: #### V ANCT #### [place] [address] [place] Basophils/100 WBC (Bld) 0.5 % Normal . [facility] Comment on above: Performed By: #### V ANCT #### [place] [address] [place] Eosinophils (Bld) [#/Vol] 0.1 10*3/uL Normal 0.0-0.45 [facility] Comment on above: Performed By: #### V ANCT #### [place] [address] [place] Eosinophils/100 WBC (Bld) 1.0 % Normal . [facility] Comment on above: Performed By: #### V ANCT #### [address] Erythrocyte distribution width (RBC) [Ratio] 16.7 % High 11.9-15.3 [facility] Comment on above: Performed By: #### V ANCT #### [facility] [address] Hematocrit (Bld) [Volume fraction] 45.8 % Normal 34.0-46.4 [facility] Comment on above: Performed By: #### V ANCT #### [address] Hemoglobin (Bld) [Mass/Vol] 15.4 g/dL Normal 11.8-15.4 [facility] Comment on above: Performed By: #### V ANCT #### [address] Lymphocytes (Bld) [#/Vol] 1.4 10*3/uL Normal 1.00-4.8 [facility] Comment on above: Performed By: #### V ANCT #### [address] Lymphocytes/100 WBC (Bld) 12.5 % Normal . [facility] Comment on above: Performed By: #### V ANCT #### [place] [address] [place] MCH (RBC) [Entitic mass] 32.9 pg Normal 24.7-34.3 [facility] Comment on above: Performed By: #### V ANCT #### [address] MCV (RBC) [Entitic vol] 97.6 fL Normal 80-100 [facility] Comment on above: Performed By: #### V ANCT #### [address] Mean Corpuscular HGB Conc 33.7 g/dL Normal 32.0-35.0 [facility] Comment on above: Performed By: #### V ANCT #### [place] [address] [place] Monocytes (Bld) [#/Vol] 0.8 10*3/uL Normal 0.0-0.8 [facility] Comment on above: Performed By: #### V ANCT #### [facility] [address] [place] [address] [place] Monocytes/100 WBC (Bld) 23.24 % High 0.00-20.00 [facility] Comment on above: Result Comment: For adults in ED, MDW > 20.0 may be associated with a higher risk of sepsis during the first 12 hrs of hospital admission Performed By: #### V ANCT #### [facility] [address] [place] [address] [place] Monocytes/100 WBC (Bld) 7.7 % Normal . [facility] Comment on above: Performed By: #### V ANCT #### [address] Neutrophils (Bld) [#/Vol] 8.5 10*3/uL High 1.8-7.7 [facility] Comment on above: Performed By: #### V ANCT #### [place] [address] [place] Neutrophils/100 WBC (Bld) 78.3 % Normal . [facility] Comment on above: Performed By: #### V ANCT #### [place] [address] [place] NRBC% 0.1 /100{WBC} Normal 0-0.5 [facility] Comment on above: Performed By: #### V ANCT #### [place] [address] [place] Platelet mean volume (Bld) [Entitic vol] 7.3 fL Normal 6.3-10.7 [facility] Comment on above: Performed By: #### V ANCT #### [facility] [address] [place] [address] [place] Platelets (Bld) [#/Vol] 237 10*3/uL Normal 150-450 [facility] Comment on above: Performed By: #### V ANCT #### [facility] [address] [place] [address] [place] RBC (Bld) [#/Vol] 4.70 10*6/uL Normal 3.60-5.[address] [facility] Comment on above: Performed By: #### V ANCT #### [facility] [address] [place] [address] [place] WBC (Bld) [#/Vol] 10.8 10*3/uL Normal 3.8-11.[address] [facility] Comment on above: Performed By: #### V ANCT #### [facility] [address] Creatinine [Mass/volume] in Serum or PlasmaOrdered By: Marilee Marcum on 08-06-2023 Creatinine [Mass/Vol] 0.72 mg/dL 0.60-1.20 [facility] ECG 12 lead ECGon 08-06-2023 ECG 12 lead ECG [facility] [place] [address] [place] [address] Electrocardiograph Report Signed Patient: Christiane Perez MR#: [id number] 2 : 1975 Acct:[id number] Age/Sex: 48 / F ADM Date: 08/06/23 Loc: ER Room: Type: [facility] ER Attending Dr: Ordering Provider: Marilee [...] change was found Confirmed by CHAI [facility]ERS [facility] Graff ([id number]) on 08/08/2023 11:46:24 AM Referred By: Electronically Signed By:ROBIN ZUNIGA MD, FACC Transcribed By: MUS Signed By Mario Zuniga MD 08/08/23 1146 Normal [facility] Eosinophils Auto (Bld) [#/Vo l]Ordered By: Marilee Marcum on 08-06-2023 Eosinophils (Bld) [#/Vol] 0.1 10*3/uL 0.0-0.45 [facility] Eosinophils/100 WBC Auto (Bl d)Ordered By: Marilee Marcum on 08-06-2023 Eosinophils/100 WBC (Bld) 1.0 % . [facility] Erythrocyte distribution wid th Auto (RBC) [Ratio]Ordered By: Marilee Marcum on 08-06-2023 Erythrocyte distribution width (RBC) [Ratio] 16.7 % 11.9-15.3 [facility] Glucose [Mass/volume] in Ser um or PlasmaOrdered By: Marilee Marcum on 08-06-2023 Glucose [Mass/Vol] 99 mg/dL 70-100 [facility] Comment on above: ADA recommended refe rence rangeRandom Glucose Reference Range is dependent on time and content of last meal. Glucose of more than 200 mg/dL in a nonstressed, ambulatory subject supports the diagnosis of Diabetes Mellitus. Hematocrit Auto (Bld) [Volum e fraction]Ordered By: Marilee Marcum on 08-06-2023 Hematocrit (Bld) [Volume fraction] 45.8 % 34.0-46.4 [facility] Hemoglobin [Mass/volume] in BloodOrdered By: Marilee Marcum on 08-06-2023 Hemoglobin (Bld) [Mass/Vol] 15.4 g/dL 11.8-15.4 [facility] INR in Platelet poor plasma by Coagulation assayOrdered By: Marilee Marcum on 08-06-2023 INR Coag (PPP) [Relative time] 1.0 {INR} [facility] Comment on above: INR Therapeutic Rang e [...] RBC Auto (Bld) [#/Vol] 10.8 10*3/uL 3.8-11.6 [facility] Lymphocytes Auto (Bld) [#/Vo l]Ordered By: Marilee Marcum on 08-06-2023 Lymphocytes (Bld) [#/Vol] 1.4 10*3/uL 1.00-4.8 [facility] Lymphocytes/100 WBC Auto (Bl d)Ordered By: Marilee Marcum on 08-06-2023 Lymphocytes/100 WBC (Bld) 12.5 % . [facility] MCH Auto (RBC) [Entitic mass ]Ordered By: Marilee Marcum on 08-06-2023 MCH (RBC) [Entitic mass] 32.9 pg 24.7-34.3 [facility] MCHC Auto (RBC) [Mass/Vol]Or dered By: Marilee Marcum on 08-06-2023 MCHC (RBC) [Mass/Vol] 33.7 g/dL 32.0-35.0 [facility] MCV Auto (RBC) [Entitic vol] Ordered By: Marilee Marcum on 08-06-2023 MCV (RBC) [Entitic vol] 97.6 fL 80-100 [facility] Monocyte distribution width [Entitic volume] in Blood by AutomatedOrdered By: Marilee Marcum on 08-06-2023 Monocyte distribution width Auto (Bld) [Entitic vol] 23.24 % 0.00-20.00 [facility] Comment on above: For adults in ED, MD W > 20.0 may be associated with a higher risk of sepsis during the first 12 hrs of hospital admission Monocytes Auto (Bld) [#/Vol] Ordered By: Marilee Marcum on 08-06-2023 Monocytes (Bld) [#/Vol] 0.8 10*3/uL 0.0-0.8 [facility] Monocytes/100 WBC Auto (Bld) Ordered By: Marilee Marcum on 08-06-2023 Monocytes/100 WBC (Bld) 7.7 % . [facility] Natriuretic peptide B [Mass/ Vol]Ordered By: Marilee Marcum on 08-06-2023 Natriuretic peptide B (Bld) [Mass/Vol] 29.0 pg/mL 5-100 [facility] Neutrophils Auto (Bld) [#/Vo l]Ordered By: Marilee Marcum on 08-06-2023 Neutrophils (Bld) [#/Vol] 8.5 10*3/uL 1.8-7.7 [facility] Neutrophils/100 WBC Auto (Bl d)Ordered By: Marilee Marcum on 08-06-2023 Neutrophils/100 WBC (Bld) 78.3 % . [facility] No Panel InformationOrdered By: Marilee Marcum on 08-06-2023 Estimated GFR (CKD-EPI) > 60.0 mL/Min [facility] Creatinine Clearance (Chem 116.58 [facility] Nucleated erythrocytes [Pres ence] in Blood by Automated countOrdered By: Marilee Marcum on 08-06-2023 Nucleated RBC Auto Ql (Bld) 0.1 /100{WBC} 0-0.5 [facility] Partial Thromboplastin Timeo n 08-06-2023 aPTT Coag (Bld) [Time] 32.3 s Normal 25.1-36.5 [facility] Comment on above: Result Comment: A he matocrit value greater than 55% may lead to inaccurate results in coagulation testing. Patients having hematocrit values >55% require a special collection tube for coagulation studies. Please contact the laboratory at [phone] for redraw instructions. PERFORMED BY: [place] [id number] PATHOLOGIST OPERATOR WAYNE WAKEFIELD M.D. Performed By: #### V ANCT #### [facility] [address] [place] [address] Platelet mean volume Auto (B ld) [Entitic vol]Ordered By: Marilee Marcum on 08-06-2023 Platelet mean volume (Bld) [Entitic vol] 7.3 fL 6.3-10.7 [facility] Platelets Auto (Bld) [#/Vol] Ordered By: Marilee Marcum on 08-06-2023 Platelets (Bld) [#/Vol] 237 10*3/uL 150-450 [facility] Potassium [Moles/volume] in Serum or PlasmaOrdered By: Marilee Marcum on 08-06-2023 Potassium [Moles/Vol] 3.7 mmol/L 3.5-5.1 [facility] Prothrombin Time INRon 08-06 INR Coag (PPP) [Relative time] 1.0 {INR} Normal [facility] Comment on above: Result Comment: INR Therapeutic [...] 4.5 Performed By: #### V ANCT #### [facility] [address] PT Coag (PPP) [Time] 11.3 s Normal 9.0-12.9 [facility] Comment on above: Result Comment: A he matocrit value greater than 55% may lead to inaccurate results in coagulation testing. Patients having hematocrit values >55% require a special collection tube for coagulation studies. Please contact the laboratory at [phone] for redraw instructions. Performed By: #### V ANCT #### [facility] [address] [place] [id number] [facility] Prothrombin time (PT)Ordered By: Marilee Marcum on 08-06-2023 PT Coag (PPP) [Time] 11.3 s 9.0-12.9 [facility] Comment on above: A hematocrit value g reater than 55% may lead to inaccurate results in coagulation testing. Patients having hematocrit values >55% require a special collection tube for coagulation studies. Please contact the laboratory at [phone] for redraw instructions. RBC Auto (Bld) [#/Vol]Ordere d By: Marilee Marcum on 08-06-2023 RBC (Bld) [#/Vol] 4.70 10*6/uL 3.60-5.[address] [facility] Serum or plasma anion gap de terminationOrdered By: Marilee Marcum on 08-06-2023 Anion gap [Moles/Vol] 9.8 mmol/L 6.0-15.0 [facility] Sodium [Moles/volume] in Ser um or PlasmaOrdered By: Marilee Marcum on 08-06-2023 Sodium [Moles/Vol] 137 mmol/L 136-145 [facility] Troponin I High Sensitivityo n 08-06-2023 Troponin I High Sensitivity 8.9 pg/mL Normal 0.0-15.0 [facility] Comment on above: Result Comment: PERF ORMED BY: [place] [address] PATHOLOGIST OPERATOR WAYNE WAKEFIELD M.D. Performed By: #### V ANCT #### [address] Troponin I.cardiac [Mass/vol ume] in Serum or Plasma by Detection limit <= 0.01 ng/Ordered By: Marilee Marcum on 08-06-2023 Troponin I.cardiac DL <= 0.01 ng/mL [Mass/Vol] 8.9 pg/mL 0.0-15.0 [facility] Urea nitrogen [Mass/volume] in Serum or PlasmaOrdered By: Marilee Marcum on 08-06-2023 Urea nitrogen [Mass/Vol] 8 mg/dL 7-25 [facility] WBC Auto (Bld) [#/Vol]Ordere d By: Marilee Marcum on 08-06-2023 WBC (Bld) [#/Vol] 10.8 10*3/uL 3.8-11.[address] [facility] XR chest 2V*on 08-06-2023 XR chest 2V* [facility] [place] [address] [place] [address] XRay Report Signed Patient: Christiane Preez MR#: [id number] 2 : 1975 Acct:[id number] Age/Sex: 48 / F ADM Date: 08/06/23 Loc: ER Room: Type: [facility] ER Attending Dr: Copies to: Marilee [...] Giovanny Cleveland M.D.08/06/2023 8:42 PM Dictation Location: [place] [address] Transcribed By: [facility] 08/06/232041 Dictated By: Giovanny Cleveland DO 08/06/232038 Signed By: 08/06/232041 [facility] Basic Metabolic Panelon 12-0 Anion gap [Moles/Vol] 9.2 mmol/L Normal 6.0-15.0 [facility] Comment on above: Performed By: #### G LULS #### Point of Care testing , Calcium [Mass/Vol] 8.9 mg/dL Normal 8.6-10.3 [facility] Comment on above: Performed By: #### G LULS #### Point of Care testing , Chloride [Moles/Vol] 107 mmol/L Normal 98-107 [facility] Comment on above: Performed By: #### G LULS #### Point of Care testing , CO2 [Moles/Vol] 25.5 mmol/L Normal 21.0-31.0 [facility] Comment on above: Performed By: #### G LULS #### Point of Care testing , Creatinine [Mass/Vol] 0.70 mg/dL Normal 0.60-1.20 [facility] Comment on above: Performed By: #### G LULS #### Point of Care testing , Creatinine Clr Calc Pharmacy 119.81 [facility] Comment on above: Result Comment: PERF ORMED BY: [place] [address] [place] [address] PATHOLOGIST OPERATOR WAYNE WAKEFIELD M.D. Performed By: #### G LULS #### Point of Care testing , GFR/1.73 sq M.predicted MDRD (S/P/Bld) [Vol rate/Area] mL/min/{1.73_m2} Normal [facility] Comment on above: Performed By: #### G LULS #### Point of Care testing , Glucose [Mass/Vol] 50 mg/dL Low 70-100 [facility] Comment on above: Result Comment: [place] Glucose Reference Range is dependent on time and content of last meal. Glucose of more than 200 mg/dL in a nonstressed, ambulatory subject supports the diagnosis of Diabetes Mellitus. ADA recommended reference range Performed By: #### G LULS #### Point of Care testing , Potassium [Moles/Vol] 3.7 mmol/L Normal 3.5-5.1 [facility] Comment on above: Performed By: #### G LULS #### Point of Care testing , Sodium [Moles/Vol] 138 mmol/L Normal 136-145 [facility] Comment on above: Performed By: #### G LULS #### Point of Care testing , Urea nitrogen [Mass/Vol] 10 mg/dL Normal 7-25 [facility] Comment on above: Performed By: #### G LULS #### Point of Care testing , Complete Blood Count Auto Di ffon 07-17-2023 Basophils (Bld) [#/Vol] 0.2 10*3/uL Normal 0.0-0.2 [facility] Comment on above: Result Comment: PERF ORMED BY: [facility] [address] [place] [address] PATHOLOGIST OPERATOR WAYNE WAKEFIELD M.D. Performed By: #### G LULS #### Point of Care testing , Basophils/100 WBC (Bld) 1.1 % Normal . [facility] Comment on above: Performed By: #### G LULS #### Point of Care testing , Eosinophils (Bld) [#/Vol] 0.2 10*3/uL Normal 0.0-0.45 [facility] Comment on above: Performed By: #### G MARYLS #### Point of Care testing , Eosinophils/100 WBC (Bld) 1.2 % Normal . [facility] Comment on above: Performed By: #### G MARYLS #### Point of Care testing , Erythrocyte distribution width (RBC) [Ratio] 16.3 % High 11.9-15.3 [facility] Comment on above: Performed By: #### G MARYLS #### Point of Care testing , Hematocrit (Bld) [Volume fraction] 45.8 % Normal 34.0-46.4 [facility] Comment on above: Performed By: #### G MARYLS #### Point of Care testing , Hemoglobin (Bld) [Mass/Vol] 15.3 g/dL Normal 11.8-15.4 [facility] Comment on above: Performed By: #### G MARYLS #### Point of Care testing , Lymphocytes (Bld) [#/Vol] 4.4 10*3/uL Normal 1.00-4.8 [facility] Comment on above: Performed By: #### G MARYLS #### Point of Care testing , Lymphocytes/100 WBC (Bld) 32.3 % Normal . [facility] Comment on above: Performed By: #### G MARYLS #### Point of Care testing , MCH (RBC) [Entitic mass] 32.2 pg Normal 24.7-34.3 [facility] Comment on above: Performed By: #### G MARYLS #### Point of Care testing , MCV (RBC) [Entitic vol] 96.4 fL Normal 80-100 [facility] Comment on above: Performed By: #### G MARYLS #### Point of Care testing , Mean Corpuscular HGB Conc 33.4 g/dL Normal 32.0-35.0 [facility] Comment on above: Performed By: #### G MARYLS #### Point of Care testing , Monocytes (Bld) [#/Vol] 0.9 10*3/uL High 0.0-0.8 [facility] Comment on above: Performed By: #### G MARE #### Point of Care testing , Monocytes/100 WBC (Bld) 17.19 % Normal 0.00-20.00 [facility] Comment on above: Performed By: #### G MARYLS #### Point of Care testing , Monocytes/100 WBC (Bld) 6.8 % Normal . [facility] Comment on above: Performed By: #### G MARYLS #### Point of Care testing , Neutrophils (Bld) [#/Vol] 8.0 10*3/uL High 1.8-7.7 [facility] Comment on above: Performed By: #### G MARYLS #### Point of Care testing , Neutrophils/100 WBC (Bld) 58.6 % Normal . [facility] Comment on above: Performed By: #### G MARYLS #### Point of Care testing , NRBC% 0.1 /100{WBC} Normal 0-0.5 [facility] Comment on above: Performed By: #### G MARYLS #### Point of Care testing , Platelet mean volume (Bld) [Entitic vol] 6.9 fL Normal 6.3-10.7 [facility] Comment on above: Performed By: #### oSphia GARVEY #### Point of Care testing , Platelets (Bld) [#/Vol] 414 10*3/uL Normal 150-450 [facility] Comment on above: Performed By: #### G MARE #### Point of Care testing , RBC (Bld) [#/Vol] 4.75 10*6/uL Normal 3.60-5.[address] [facility] Comment on above: Performed By: #### G MARE #### Point of Care testing , WBC (Bld) [#/Vol] 13.6 10*3/uL High 3.8-11.[address] [facility] Comment on above: Performed By: #### G MARYLS #### Point of Care testing , XR chest 1V portableon 07-17 XR chest 1V portable [facility] [place] [address] XRay Report Signed Patient: Christiane Perez MR#: [id number] 2 : 1975 Acct:[id number] Age/Sex: 48 / F ADM Date: 07/16/23 Loc: ER Room: Type: [facility] ER Attending Dr: Copies to: Yasmin [...] Shireen Caruso M.D.07/17/2023 8:50 AM Dictation Location: [place] [address] Transcribed By: CHARLI 07/17/23 0850 Dictated By: Shireen Caruso MD 07/17/23 0849 Signed By: 07/17/23 0850 Normal [facility] Basophils Auto (Bld) [#/Vol] Ordered By: Yasmin Leung on 07-16-2023 Basophils (Bld) [#/Vol] 0.2 10*3/uL 0.0-0.2 [facility] Basophils/100 WBC Auto (Bld) Ordered By: Yasmin Leung on 07-16-2023 Basophils/100 WBC (Bld) 1.1 % . [facility] Calcium [Mass/volume] in Ser um or PlasmaOrdered By: Yasmin Leung on 07-16-2023 Calcium [Mass/Vol] 8.9 mg/dL 8.6-10.3 [facility] Carbon dioxide, total [Moles /volume] in Serum or PlasmaOrdered By: Yasmin Leung on 07-16-2023 CO2 [Moles/Vol] 25.5 mmol/L 21.0-31.0 [facility] Chloride [Moles/volume] in S kaitlin or PlasmaOrdered By: Yasmin Leung on 12-01-2023 Chloride [Moles/Vol] 107 mmol/L 98-107 [facility] Creatinine [Mass/volume] in Serum or PlasmaOrdered By: Yasmin Leung on 07-16-2023 Creatinine [Mass/Vol] 0.70 mg/dL 0.60-1.20 [facility] ECG 12 lead ECGon 07-16-2023 ECG 12 lead ECG [facility] [place] [address] Electrocardiograph Report Signed Patient: Christiane Perez MR#: [id number] 2 : 1975 Acct:[id number] Age/Sex: 48 / F ADM Date: 07/16/23 Loc: ER Room: Type: [facility] ER Attending Dr: Ordering Provider: Yasmin [...] By Yasmin Leung MD 07/17/23 0119 Normal [facility] Eosinophils Auto (Bld) [#/Vo l]Ordered By: Yasmin Leung on 07-16-2023 Eosinophils (Bld) [#/Vol] 0.2 10*3/uL 0.0-0.45 [facility] Eosinophils/100 WBC Auto (Bl d)Ordered By: Yasmin Leung on 07-16-2023 Eosinophils/100 WBC (Bld) 1.2 % . [facility] Erythrocyte distribution wid th Auto (RBC) [Ratio]Ordered By: Yasmin Leung on 07-16-2023 Erythrocyte distribution width (RBC) [Ratio] 16.3 % 11.9-15.3 [facility] Glucose [Mass/volume] in Ser um or PlasmaOrdered By: Yasmin Leung on 07-16-2023 Glucose [Mass/Vol] 50 mg/dL 70-100 [facility] Comment on above: ADA recommended refe rence rangeRandom Glucose Reference Range is dependent on time and content of last meal. Glucose of more than 200 mg/dL in a nonstressed, ambulatory subject supports the diagnosis of Diabetes Mellitus. Hematocrit Auto (Bld) [Volum e fraction]Ordered By: Yasmin Leung on 07-16-2023 Hematocrit (Bld) [Volume fraction] 45.8 % 34.0-46.4 [facility] Hemoglobin [Mass/volume] in BloodOrdered By: Yasmin Leung on 07-16-2023 Hemoglobin (Bld) [Mass/Vol] 15.3 g/dL 11.8-15.4 [facility] Leukocytes [#/volume] correc billy for nucleated erythrocytes in Blood by Automated counOrdered By: Yasmin Leung on 07-16-2023 WBC corrected for nucl RBC Auto (Bld) [#/Vol] 13.6 10*3/uL 3.8-11.6 [facility] Lymphocytes Auto (Bld) [#/Vo l]Ordered By: Yasmin Leung on 07-16-2023 Lymphocytes (Bld) [#/Vol] 4.4 10*3/uL 1.00-4.8 [facility] Lymphocytes/100 WBC Auto (Bl d)Ordered By: Yasmin Leung on 07-16-2023 Lymphocytes/100 WBC (Bld) 32.3 % . [facility] MCH Auto (RBC) [Entitic mass ]Ordered By: Yasmin Leung on 07-16-2023 MCH (RBC) [Entitic mass] 32.2 pg 24.7-34.3 [facility] MCHC Auto (RBC) [Mass/Vol]Or dered By: Yasmin Leung on 07-16-2023 MCHC (RBC) [Mass/Vol] 33.4 g/dL 32.0-35.0 [facility] MCV Auto (RBC) [Entitic vol] Ordered By: Yasmin Leung on 07-16-2023 MCV (RBC) [Entitic vol] 96.4 fL 80-100 [facility] Monocyte distribution width [Entitic volume] in Blood by AutomatedOrdered By: Yasmin Leung on 07-16-2023 Monocyte distribution width Auto (Bld) [Entitic vol] 17.19 % 0.00-20.00 [facility] Monocytes Auto (Bld) [#/Vol] Ordered By: Yasmin Leung on 07-16-2023 Monocytes (Bld) [#/Vol] 0.9 10*3/uL 0.0-0.8 [facility] Monocytes/100 WBC Auto (Bld) Ordered By: Yasmin Leung on 07-16-2023 Monocytes/100 WBC (Bld) 6.8 % . [facility] Neutrophils Auto (Bld) [#/Vo l]Ordered By: Yasmin Leung on 07-16-2023 Neutrophils (Bld) [#/Vol] 8.0 10*3/uL 1.8-7.7 [facility] Neutrophils/100 WBC Auto (Bl d)Ordered By: Yasmin Leung on 07-16-2023 Neutrophils/100 WBC (Bld) 58.6 % . [facility] No Panel InformationOrdered By: Yasmin Leung on 07-16-2023 Estimated GFR (CKD-EPI) > 60.0 mL/Min [facility] Creatinine Clearance (Chem 119.81 [facility] Nucleated erythrocytes [Pres ence] in Blood by Automated countOrdered By: Yasmin Leung on 07-16-2023 Nucleated RBC Auto Ql (Bld) 0.1 /100{WBC} 0-0.5 [facility] Platelet mean volume Auto (B ld) [Entitic vol]Ordered By: Yasmin Leung on 07-16-2023 Platelet mean volume (Bld) [Entitic vol] 6.9 fL 6.3-10.7 [facility] Platelets Auto (Bld) [#/Vol] Ordered By: Yasmin Leung on 07-16-2023 Platelets (Bld) [#/Vol] 414 10*3/uL 150-450 [facility] Potassium [Moles/volume] in Serum or PlasmaOrdered By: Yasmin Leung on 07-16-2023 Potassium [Moles/Vol] 3.7 mmol/L 3.5-5.1 [facility] RBC Auto (Bld) [#/Vol]Ordere d By: Yasmin Leung on 07-16-2023 RBC (Bld) [#/Vol] 4.75 10*6/uL 3.60-5.[address] [facility] Serum or plasma anion gap de terminationOrdered By: Yasmin Leung on 07-16-2023 Anion gap [Moles/Vol] 9.2 mmol/L 6.0-15.0 [facility] Sodium [Moles/volume] in Ser um or PlasmaOrdered By: Yasmin Leung on 07-16-2023 Sodium [Moles/Vol] 138 mmol/L 136-145 [facility] Urea nitrogen [Mass/volume] in Serum or PlasmaOrdered By: Yasmin Leung on 07-16-2023 Urea nitrogen [Mass/Vol] 10 mg/dL 7-25 [facility] WBC Auto (Bld) [#/Vol]Ordere d By: Yasmin Leung on 07-16-2023 WBC (Bld) [#/Vol] 13.6 10*3/uL 3.8-11.[address] [facility] COVID CepheidOrdered By: Antonio Villeda on 07-05-2023 SARS-CoV-2 (COVID-19) Ab IA Ql Negative Negative [facility] Comment on above: This is a duplicate Cepheid Xpert Xpress CoV-2/Flu/RSV Plus RNA by RT-PCR result to be used for statistical tracking purpose only. SARS-CoV-2 (COVID-19) RNA SOILA+probe Ql (Unsp spec) [facility] COVID-19 / Flu A/B / RSV PCR [...] or Cepheid Disclaimer revoked sooner. PERFORMED BY: [address] [address] PATHOLOGIST OPERATOR WAYNE WAKEFIELD M.D. Normal [facility] Comment on above: Performed By: #### G LULS #### Point of Care testing , Cepheid COVID PCR Negativeon 07-05-2023 SARS-CoV-2 (COVID-19) RNA SOILA+probe Ql (Unsp spec) Negative Normal Negative [facility] Comment on above: Result Comment: This is a duplicate Cepheid Xpert Xpress CoV-2/Flu/RSV Plus RNA by RT-PCR result to be used for statistical tracking purpose only. PERFORMED BY: [address] [place] [address] PATHOLOGIST OPERATOR WAYNE WAKEFIELD M.D. Performed By: #### G LULS #### Point of Care testing , XR chest 2V*on 07-05-2023 XR chest 2V* [facility] [place] [address] [place] [address] XRay Report Signed Patient: Christiane Perez MR#: [id number] 2 : 1975 Acct:[id number] Age/Sex: 48 / F ADM Date: 07/05/23 Loc: ER Room: Type: [facility] ER Attending Dr: Copies to: Elio [...] Giovanny Cleveland M.D.07/05/2023 2:41 PM Dictation Location: [place] [address] Transcribed By: [facility] 07/05/23 1441 Dictated By: Giovanny Cleveland DO 07/05/23 1437 Signed By: 07/05/23 1441 Normal [facility] Quick Strepon 06-20-2023 S. pyogenes Org specific cx Ql (Throat) Negative [employer] Other Quick Strep [employer] Other CT chest wo conon 04-09-2023 CT chest wo con [facility] Main [address] [address] [address] Scan Report Signed Patient: Christiane Perez MR#: [id number] 2 : 1975 Acct:[id number] Age/Sex: 48 / F ADM Date: 04/09/23 Loc: [facility] Room: Type: [facility] Attending Dr: Valeriano Horta MD Copies [...] Johnson Jr., D.OJosue04/09/2023 3:00 PM Dictation Location: [place] [address] Transcribed By: [facility] 04/09/23 1500 Dictated By: Rodger Johnson Jr, DO 04/09/23 1453 Signed By: 04/09/23 1500 Normal [facility] SURGICAL PATHOLOGY REFERENCE LAB CONSULTon 03-19-2023 CASE REPORT Normal [facility] Comment on above: Order Comment: Speci men Type: SLIDE Ordering Facility: [facility] Address: [address] [place] [phone] Result Comment: Surg [facility] Pathology Report Case: [id number] Authorizing Provider: Gregory Aranda MD Collected: 03/19/2023 09:16 AM Ordering Location: [facility] Received: 03/19/2023 09:14 AM Pathologist: Mnado Gar MD Specimen: SLIDE(S), 8 SLIDES [id number] Performed By: #### L [id number] #### [facility] CLIA [id number] [address] [facility] [address] CLINICAL HISTORY CONSULT REQUESTED [facility] Comment on above: Order Comment: Speci men Type: SLIDE Ordering Facility: [facility] Address: [address] [place] [phone] Performed By: #### L [id number] #### [facility] CLIA [id number] [address] [place] [address] DIAGNOSIS COMMENT Normal [facility] Comment on above: Order Comment: Speci men Type: SLIDE Ordering Facility: [facility] Address: [address] [place] [phone] Result Comment: Than k you for sharing [...] available, is recommended. Performed By: #### L [id number] #### [facility] CLIA [id number] [address] [place] [address] [place] FINAL DIAGNOSIS Normal [facility] Comment on above: Order Comment: Speci tee Type: SLIDE Ordering Facility: [facility] Address: [address] [place] [phone] Result Comment: Lung , left upper lobe, transbronchial biopsy (S [id number], A1; 03/11/2023): -Organizing acute lung injury with fibrin and acute inflammation Performed By: #### L [id number] #### [facility] CLIA [id number] [address] [place] [address] [place] FINAL PERFORMING LAB Normal [facility] Comment on above: Order Comment: Rosalee oliveira Type: SLIDE Ordering Facility: [facility] Address: [address] [place], [place] [phone] Result Comment: Diag nostic interpretation performed at [facility], [address] [place] [address] CLIA# [id number] [facility] Technician: Don Meehan M.D. Performed By: #### L [id number] #### [facility] CLIA [id number] [address] [place] [address] [place] XR chest 1V portableon 03-17 XR chest 1V portable [facility] Main [address] [address] XRay Report Signed Patient: Christiane Perez MR#: [id number] 2 : 1975 Acct:[id number] Age/Sex: 48 / F ADM Date: 03/10/23 Loc: Room: [address] [place] [address] Type: DIS IN Attending Dr: Krunal Kelly [...] Johnson Jr., D.O.03/17/2023 10:12 AM Dictation Location: [place] [address] Transcribed By: [facility] 03/17/23 1012 Dictated By: Rodger Johnson Jr, DO 03/17/23 1012 Signed By: 03/17/23 1012 Normal [facility] A1C with Estimated Average G shilpi 03-14-2023 Glucose [Mass/Vol] 171 mg/dL Normal [facility] Comment on above: Result Comment: PERF ORMED BY: [facility] [address] [place] [address] PATHOLOGIST OPERATOR WAYNE WAKEFIELD M.D. Performed By: #### G LULS #### Point of Care testing , HbA1c (Bld) [Mass fraction] 7.6 % High 4.3-5.6 [facility] Comment on above: Result Comment: Incr eased risk for diabetes: 5.7 - 6.4 diabetes: >6.4 glycemic control for adults with diabetes: <7.0 Performed By: #### G LULS #### Point of Care testing , Alanine aminotransferase [En zymatic activity/volume] in Serum or PlasmaOrdered By: Krunal Kelly on 03-14-2023 ALT [Catalytic activity/Vol] 5 U/L 7-52 [facility] Albumin [Mass/volume] in Ser um or Plasma by Bromocresol green (BCG) dye binding methoOrdered By: Krunal Kelly on 03-14-2023 Albumin BCG dye [Mass/Vol] 2.9 g/dL 3.5-5.7 [facility] Alkaline phosphatase [Enzyma tic activity/volume] in Serum or PlasmaOrdered By: Krunal Kelly on 03-14-2023 ALP [Catalytic activity/Vol] 94 U/L 34-104 [facility] Aspartate aminotransferase [ Enzymatic activity/volume] in Serum or PlasmaOrdered By: Krunal Kelly on 03-14-2023 AST [Catalytic activity/Vol] 8 U/L 13-39 [facility] Basophils Auto (Bld) [#/Vol] Ordered By: Eron Wood on 03-14-2023 Basophils (Bld) [#/Vol] 0.1 10*3/uL 0.0-0.2 [facility] Basophils/100 WBC Auto (Bld) Ordered By: Eron Wood on 03-14-2023 Basophils/100 WBC (Bld) 0.7 % . [facility] Bilirubin.total [Mass/volume ] in Serum or PlasmaOrdered By: Krunal Kelly on 03-14-2023 Bilirubin [Mass/Vol] 0.7 mg/dL 0.3-1.0 [facility] Calcium [Mass/volume] in Ser um or PlasmaOrdered By: Krunal Kelly on 03-14-2023 Calcium [Mass/Vol] 8.3 mg/dL 8.6-10.3 [facility] Carbon dioxide, total [Moles /volume] in Serum or PlasmaOrdered By: Krunal Kelly on 03-14-2023 CO2 [Moles/Vol] 24.8 mmol/L 21.0-31.0 [facility] Chloride [Moles/volume] in S kaitlin or PlasmaOrdered By: Krunal Kelly on 03-14-2023 Chloride [Moles/Vol] 108 mmol/L 98-107 [facility] Complete Blood Count Auto Di ffon 03-14-2023 Basophils (Bld) [#/Vol] 0.1 10*3/uL Normal 0.0-0.2 [facility] Comment on above: Result Comment: PERF ORMED BY: [place] [address] PATHOLOGIST OPERATOR WAYNE WAKEFIELD M.D. Performed By: #### V ANCT #### [address] Basophils/100 WBC (Bld) 0.7 % Normal . [facility] Comment on above: Performed By: #### V ANCT #### [address] Eosinophils (Bld) [#/Vol] 0.4 10*3/uL Normal 0.0-0.45 [facility] Comment on above: Performed By: #### V ANCT #### [address] Eosinophils/100 WBC (Bld) 4.4 % Normal . [facility] Comment on above: Performed By: #### V ANCT #### [address] Erythrocyte distribution width (RBC) [Ratio] 15.5 % High 11.9-15.3 [facility] Comment on above: Performed By: #### V ANCT #### [address] Hematocrit (Bld) [Volume fraction] 35.1 % Normal 34.0-46.4 [facility] Comment on above: Performed By: #### V ANCT #### [place] [address] [place] Hemoglobin (Bld) [Mass/Vol] 12.0 g/dL Normal 11.8-15.4 [facility] Comment on above: Performed By: #### V ANCT #### [address] Lymphocytes (Bld) [#/Vol] 1.6 10*3/uL Normal 1.00-4.8 [facility] Comment on above: Performed By: #### V ANCT #### [address] Lymphocytes/100 WBC (Bld) 16.8 % Normal . [facility] Comment on above: Performed By: #### V ANCT #### [address] MCH (RBC) [Entitic mass] 32.8 pg Normal 24.7-34.3 [facility] Comment on above: Performed By: #### V ANCT #### [address] MCV (RBC) [Entitic vol] 96.4 fL Normal 80-100 [facility] Comment on above: Performed By: #### V ANCT #### [address] Mean Corpuscular HGB Conc 34.1 g/dL Normal 32.0-35.0 [facility] Comment on above: Performed By: #### V ANCT #### [address] Monocytes (Bld) [#/Vol] 0.7 10*3/uL Normal 0.0-0.8 [facility] Comment on above: Performed By: #### V ANCT #### [address] Monocytes/100 WBC (Bld) 7.1 % Normal . [facility] Comment on above: Performed By: #### V ANCT #### [address] Neutrophils (Bld) [#/Vol] 6.8 10*3/uL Normal 1.8-7.7 [facility] Comment on above: Performed By: #### V ANCT #### [address] Neutrophils/100 WBC (Bld) 71.0 % Normal . [facility] Comment on above: Performed By: #### V ANCT #### [place] [address] [place] NRBC% 0.1 /100{WBC} Normal 0-0.5 [facility] Comment on above: Performed By: #### V ANCT #### [address] Platelet mean volume (Bld) [Entitic vol] 6.2 fL Low 6.3-10.7 [facility] Comment on above: Performed By: #### V ANCT #### [address] Platelets (Bld) [#/Vol] 424 10*3/uL Normal 150-450 [facility] Comment on above: Performed By: #### V ANCT #### [address] RBC (Bld) [#/Vol] 3.65 10*6/uL Normal 3.60-5.[address] [facility] Comment on above: Performed By: #### V ANCT #### [address] WBC (Bld) [#/Vol] 9.6 10*3/uL Normal 3.8-11.6 [facility] Comment on above: Performed By: #### V ANCT #### [address] Comprehensive Metabolic Pane moose 03-14-2023 Albumin [Mass/Vol] 2.9 g/dL Low 3.5-5.7 [facility] Comment on above: Performed By: #### G LUAUGUSTIN #### Point of Care testing , Albumin/Globulin [Mass ratio] 0.8 {ratio} Normal [facility] Comment on above: Performed By: #### G MARE #### Point of Care testing , ALP [Catalytic activity/Vol] 94 U/L Normal 34-104 [facility] Comment on above: Performed By: #### G MARYLS #### Point of Care testing , ALT [Catalytic activity/Vol] 5 U/L Low 7-52 [facility] Comment on above: Performed By: #### G LULS #### Point of Care testing , Anion gap [Moles/Vol] 8.9 mmol/L Normal 6.0-15.0 [facility] Comment on above: Performed By: #### G MARYLS #### Point of Care testing , AST [Catalytic activity/Vol] 8 U/L Low 13-39 [facility] Comment on above: Performed By: #### G MARYLS #### Point of Care testing , Bilirubin [Mass/Vol] 0.7 mg/dL Normal 0.3-1.0 [facility] Comment on above: Performed By: #### G MARYLS #### Point of Care testing , Calcium [Mass/Vol] 8.3 mg/dL Low 8.6-10.3 [facility] Comment on above: Performed By: #### G MARYLS #### Point of Care testing , Chloride [Moles/Vol] 108 mmol/L High 98-107 [facility] Comment on above: Performed By: #### G MARYLS #### Point of Care testing , CO2 [Moles/Vol] 24.8 mmol/L Normal 21.0-31.0 [facility] Comment on above: Performed By: #### G MARYLS #### Point of Care testing , Creatinine [Mass/Vol] 0.68 mg/dL Normal 0.60-1.20 [facility] Comment on above: Performed By: #### G MARYLS #### Point of Care testing , Creatinine Clr Calc Pharmacy 119.15 [facility] Comment on above: Result Comment: PERF ORMED BY: [facility] [address] [place] [address] PATHOLOGIST OPERATOR WAYNE WAKEFIELD M.D. Performed By: #### G MARYLS #### Point of Care testing , GFR/1.73 sq M.predicted MDRD (S/P/Bld) [Vol rate/Area] mL/min/{1.73_m2} [facility] Comment on above: Performed By: #### G MARYLS #### Point of Care testing , Globulin (S) [Mass/Vol] 3.7 g/dL [facility] Comment on above: Performed By: #### G LULS #### Point of Care testing , Glucose [Mass/Vol] 86 mg/dL Normal 70-100 [facility] Comment on above: Result Comment: [place] Glucose Reference Range is dependent on time and content of last meal. Glucose of more than 200 mg/dL in a nonstressed, ambulatory subject supports the diagnosis of Diabetes Mellitus. ADA recommended reference range Performed By: #### G LULS #### Point of Care testing , Potassium [Moles/Vol] 3.7 mmol/L Normal 3.5-5.1 [facility] Comment on above: Performed By: #### G LULS #### Point of Care testing , Protein [Mass/Vol] 6.6 g/dL Normal 6.4-8.9 [facility] Comment on above: Performed By: #### G LULS #### Point of Care testing , Sodium [Moles/Vol] 138 mmol/L Normal 136-145 [facility] Comment on above: Performed By: #### G LULS #### Point of Care testing , Urea nitrogen [Mass/Vol] 6 mg/dL Low 7-25 [facility] Comment on above: Performed By: #### G LULS #### Point of Care testing , Creatinine [Mass/volume] in Serum or PlasmaOrdered By: Krunal Kelly on 03-14-2023 Creatinine [Mass/Vol] 0.68 mg/dL 0.60-1.20 [facility] Eosinophils Auto (Bld) [#/Vo l]Ordered By: Eron Wood on 03-14-2023 Eosinophils (Bld) [#/Vol] 0.4 10*3/uL 0.0-0.45 [facility] Eosinophils/100 WBC Auto (Bl d)Ordered By: Eron Wood on 03-14-2023 Eosinophils/100 WBC (Bld) 4.4 % . [facility] Erythrocyte distribution wid th Auto (RBC) [Ratio]Ordered By: Eron Wood on 03-14-2023 Erythrocyte distribution width (RBC) [Ratio] 15.5 % 11.9-15.3 [facility] Globulin Calc (S) [Mass/Vol] Ordered By: Krunal Kelly on 03-14-2023 Globulin (S) [Mass/Vol] 3.7 g/dL [facility] Glucose Glucometer (BldC) [M ass/Vol]Ordered By: Krunal Kelly on 03-14-2023 Glucose [Mass/Vol] 249 mg/dL [facility] Comment on above: Random Glucose Refer ence Range is dependent on time and content of last meal. Glucose of more than 200 mg/dL in a nonstressed, ambulatory subject supports the diagnosis of Diabetes Mellitus. Glucose Poct Glucometerson 0 03-14-2023 Glucose [Mass/Vol] 249 mg/dL Normal [facility] Comment on above: Result Comment: [place] om Glucose Reference Range is dependent on time and content of last meal. Glucose of more than 200 mg/dL in a nonstressed, ambulatory subject supports the diagnosis of Diabetes Mellitus. PERFORMED BY: [facility] [address] [place] [address] PATHOLOGIST OPERATOR WAYNE WAKEFIELD M.D. Performed By: #### G LULS #### Point of Care testing , Commemt1 Glu2: Cleaned Meter Normal [facility] Comment on above: Result Comment: PERF ORMED BY: [facility] [address] [place] [address] PATHOLOGIST OPERATOR WAYNE WAKEFIELD M.D. Performed By: #### G LULS #### Point of Care testing , Glucose [Mass/Vol] 95 mg/dL Normal [facility] Comment on above: Result Comment: [place] [facility] Glucose Reference Range is dependent on time and content of last meal. Glucose of more than 200 mg/dL in a nonstressed, ambulatory subject supports the diagnosis of Diabetes Mellitus. Performed By: #### G LULS #### Point of Care testing , Glucose [Mass/volume] in Ser um or PlasmaOrdered By: Krunal Kelly on 03-14-2023 Glucose [Mass/Vol] 86 mg/dL 70-100 [facility] Comment on above: ADA recommended refe [...] from glycated hemoglobin (Bld) [Mass/Vol] 171 mg/dL [facility] Hematocrit Auto (Bld) [Volum e fraction]Ordered By: Eron Wood on 03-14-2023 Hematocrit (Bld) [Volume fraction] 35.1 % 34.0-46.4 [facility] Hemoglobin A1c percentageOrd ered By: Krunal Kelly on 03-14-2023 HbA1c (Bld) [Mass fraction] 7.6 % 4.3-5.6 [facility] Comment on above: Increased risk for d iabetes: 5.7 - 6.4diabetes: >6.4glycemic control for adults with diabetes: <7.0 Hemoglobin [Mass/volume] in BloodOrdered By: Eron Wood on 03-14-2023 Hemoglobin (Bld) [Mass/Vol] 12.0 g/dL 11.8-15.4 [facility] Leukocytes [#/volume] correc billy for nucleated erythrocytes in Blood by Automated counOrdered By: Eron Wood on 03-14-2023 WBC corrected for nucl RBC Auto (Bld) [#/Vol] 9.6 10*3/uL 3.8-11.6 [facility] Lymphocytes Auto (Bld) [#/Vo l]Ordered By: Eron Wood on 03-14-2023 Lymphocytes (Bld) [#/Vol] 1.6 10*3/uL 1.00-4.8 [facility] Lymphocytes/100 WBC Auto (Bl d)Ordered By: Eron Wood on 03-14-2023 Lymphocytes/100 WBC (Bld) 16.8 % . [facility] MCH Auto (RBC) [Entitic mass ]Ordered By: Eron Wood on 03-14-2023 MCH (RBC) [Entitic mass] 32.8 pg 24.7-34.3 [facility] MCHC Auto (RBC) [Mass/Vol]Or dered By: Eron Wood on 03-14-2023 MCHC (RBC) [Mass/Vol] 34.1 g/dL 32.0-35.0 [facility] MCV Auto (RBC) [Entitic vol] Ordered By: Eron Wood on 03-14-2023 MCV (RBC) [Entitic vol] 96.4 fL 80-100 [facility] Monocytes Auto (Bld) [#/Vol] Ordered By: Eron Wood on 03-14-2023 Monocytes (Bld) [#/Vol] 0.7 10*3/uL 0.0-0.8 [facility] Monocytes/100 WBC Auto (Bld) Ordered By: Eron Wood on 03-14-2023 Monocytes/100 WBC (Bld) 7.1 % . [facility] Neutrophils Auto (Bld) [#/Vo l]Ordered By: Eron Wood on 03-14-2023 Neutrophils (Bld) [#/Vol] 6.8 10*3/uL 1.8-7.7 [facility] Neutrophils/100 WBC Auto (Bl d)Ordered By: Eron Wood on 03-14-2023 Neutrophils/100 WBC (Bld) 71.0 % . [facility] No Panel InformationOrdered By: Krunal Kelly on 03-14-2023 Bedside Glucose Comment Glu2: cleaned meter [facility] Estimated GFR (CKD-EPI) > 60.0 mL/Min [facility] Creatinine Clearance (Chem 119.15 [facility] Nucleated erythrocytes [Pres ence] in Blood by Automated countOrdered By: Eron Wood on 03-14-2023 Nucleated RBC Auto Ql (Bld) 0.1 /100{WBC} 0-0.5 [facility] Platelet mean volume Auto (B ld) [Entitic vol]Ordered By: Eron Wood on 03-14-2023 Platelet mean volume (Bld) [Entitic vol] 6.2 fL 6.3-10.7 [facility] Platelets Auto (Bld) [#/Vol] Ordered By: Eron Wood on 03-14-2023 Platelets (Bld) [#/Vol] 424 10*3/uL 150-450 [facility] Potassium [Moles/volume] in Serum or PlasmaOrdered By: Krunal Kelly on 03-14-2023 Potassium [Moles/Vol] 3.7 mmol/L 3.5-5.1 [facility] Protein [Mass/volume] in Ser um or PlasmaOrdered By: Krunal Kelly on 03-14-2023 Protein [Mass/Vol] 6.6 g/dL 6.4-8.9 [facility] RBC Auto (Bld) [#/Vol]Ordere d By: Eron Wood on 03-14-2023 RBC (Bld) [#/Vol] 3.65 10*6/uL 3.60-5.[address] [facility] Serum or plasma albumin/glob ulin mass ratioOrdered By: Krunal Kelly on 03-14-2023 Albumin/Globulin [Mass ratio] 0.8 {ratio} [facility] Serum or plasma anion gap de terminationOrdered By: Krunal Kelly on 03-14-2023 Anion gap [Moles/Vol] 8.9 mmol/L 6.0-15.0 [facility] Sodium [Moles/volume] in Ser um or PlasmaOrdered By: Krunal Kelly on 03-14-2023 Sodium [Moles/Vol] 138 mmol/L 136-145 [facility] Urea nitrogen [Mass/volume] in Serum or PlasmaOrdered By: Krunal Kelly on 03-14-2023 Urea nitrogen [Mass/Vol] 6 mg/dL 7-25 [facility] WBC Auto (Bld) [#/Vol]Ordere d By: Eron Wood on 03-14-2023 WBC (Bld) [#/Vol] 9.6 10*3/uL 3.8-11.6 [facility] Basic Metabolic Panelon 02-14 Anion gap [Moles/Vol] 8.9 mmol/L Normal 6.0-15.0 [facility] Comment on above: Performed By: #### C BC, BMP, MG #### [facility] [address] Calcium [Mass/Vol] 8.4 mg/dL Low 8.6-10.3 [facility] Comment on above: Performed By: #### C BC, BMP, MG #### [facility] [address] Chloride [Moles/Vol] 109 mmol/L High 98-107 [facility] Comment on above: Performed By: #### C BC, BMP, MG #### [facility] [address] CO2 [Moles/Vol] 24.9 mmol/L Normal 21.0-31.0 [facility] Comment on above: Performed By: #### C BC, BMP, MG #### [address] Creatinine [Mass/Vol] 0.61 mg/dL Normal 0.60-1.20 [facility] Comment on above: Performed By: #### C BC, BMP, MG #### [place] [address] [place] Creatinine Clr Calc Pharmacy 132.97 [facility] Comment on above: Result Comment: PERF ORMED BY: [place] [address] PATHOLOGIST OPERATOR WAYNE WAKEFIELD M.D. Performed By: #### C BC, BMP, MG #### [place] [address] [place] GFR/1.73 sq M.predicted MDRD (S/P/Bld) [Vol rate/Area] mL/min/{1.73_m2} [facility] Comment on above: Performed By: #### C BC, BMP, MG #### [place] [address] [place] Glucose [Mass/Vol] 97 mg/dL Normal 70-100 [facility] Comment on above: Result Comment: [facility] Glucose Reference Range is dependent on time and content of last meal. Glucose of more than 200 mg/dL in a nonstressed, ambulatory subject supports the diagnosis of Diabetes Mellitus. ADA recommended reference range Performed By: #### C BC, BMP, MG #### [facility] [address] Potassium [Moles/Vol] 3.8 mmol/L Normal 3.5-5.1 [facility] Comment on above: Performed By: #### C BC, BMP, MG #### [facility] [address] Sodium [Moles/Vol] 139 mmol/L Normal 136-145 [facility] Comment on above: Performed By: #### C BC, BMP, MG #### [facility] [address] Urea nitrogen [Mass/Vol] 6 mg/dL Low 7-25 [facility] Comment on above: Performed By: #### C BC, BMP, MG #### [facility] [address] Complete Blood Count Auto Di ffon 03-13-2023 Basophils (Bld) [#/Vol] 0.0 10*3/uL Normal 0.0-0.2 [facility] Comment on above: Result Comment: PERF ORMED BY: [place] [address] PATHOLOGIST OPERATOR WAYNE WAKEFIELD M.D. Performed By: #### C BC, BMP, MG #### [facility] [address] [place] [address] [place] Basophils/100 WBC (Bld) 0.5 % Normal . [facility] Comment on above: Performed By: #### C BC, BMP, MG #### [facility] [address] Eosinophils (Bld) [#/Vol] 0.4 10*3/uL Normal 0.0-0.45 [facility] Comment on above: Performed By: #### C BC, BMP, MG #### [facility] [address] [place] [address] [place] Eosinophils/100 WBC (Bld) 4.5 % Normal . [facility] Comment on above: Performed By: #### C BC, BMP, MG #### [facility] [address] Erythrocyte distribution width (RBC) [Ratio] 15.7 % High 11.9-15.3 [facility] Comment on above: Performed By: #### C BC, BMP, MG #### [address] Hematocrit (Bld) [Volume fraction] 36.2 % Normal 34.0-46.4 [facility] Comment on above: Performed By: #### C BC, BMP, MG #### [facility] [address] Hemoglobin (Bld) [Mass/Vol] 12.1 g/dL Normal 11.8-15.4 [facility] Comment on above: Performed By: #### C BC, BMP, MG #### [address] Lymphocytes (Bld) [#/Vol] 1.5 10*3/uL Normal 1.00-4.8 [facility] Comment on above: Performed By: #### C BC, BMP, MG #### [facility] [address] [place] [address] [place] Lymphocytes/100 WBC (Bld) 16.5 % Normal . [facility] Comment on above: Performed By: #### C BC, BMP, MG #### [address] MCH (RBC) [Entitic mass] 32.3 pg Normal 24.7-34.3 [facility] Comment on above: Performed By: #### C BC, BMP, MG #### [facility] [address] [place] [address] MCV (RBC) [Entitic vol] 96.7 fL Normal 80-100 [facility] Comment on above: Performed By: #### C BC, BMP, MG #### [facility] [address] Mean Corpuscular HGB Conc 33.4 g/dL Normal 32.0-35.0 [facility] Comment on above: Performed By: #### C BC, BMP, MG #### [facility] [address] Monocytes (Bld) [#/Vol] 0.7 10*3/uL Normal 0.0-0.8 [facility] Comment on above: Performed By: #### C BC, BMP, MG #### [facility] [address] [place] [address] Monocytes/100 WBC (Bld) 8.0 % Normal . [facility] Comment on above: Performed By: #### C BC, BMP, MG #### [facility] [address] [place] [address] Neutrophils (Bld) [#/Vol] 6.6 10*3/uL Normal 1.8-7.7 [facility] Comment on above: Performed By: #### C BC, BMP, MG #### [facility] [address] [place] [address] Neutrophils/100 WBC (Bld) 70.5 % Normal . [facility] Comment on above: Performed By: #### C BC, BMP, MG #### [facility] [address] [place] [address] NRBC% 0.1 /100{WBC} Normal 0-0.5 [facility] Comment on above: Performed By: #### C BC, BMP, MG #### [facility] [address] Platelet mean volume (Bld) [Entitic vol] 6.6 fL Normal 6.3-10.7 [facility] Comment on above: Performed By: #### C BC, BMP, MG #### [facility] [address] [place] [address] [place] Platelets (Bld) [#/Vol] 398 10*3/uL Normal 150-450 [facility] Comment on above: Performed By: #### C BC, BMP, MG #### [address] RBC (Bld) [#/Vol] 3.75 10*6/uL Normal 3.60-5.[address] [facility] Comment on above: Performed By: #### C BC, BMP, MG #### [address] WBC (Bld) [#/Vol] 9.3 10*3/uL Normal 3.8-11.6 [facility] Comment on above: Performed By: #### C BC, BMP, MG #### [address] Glucose Poct Glucometerson 0 03-13-2023 Commemt1 Glu2: Cleaned Meter Normal [facility] Comment on above: Result Comment: PERF ORMED BY: [place] [address] PATHOLOGIST OPERATOR WAYNE WAKEFIELD M.D. Performed By: #### V ANCT #### [address] Glucose [Mass/Vol] 152 mg/dL Normal [facility] Comment on above: Result Comment: [facility] Glucose Reference Range is dependent on time and content of last meal. Glucose of more than 200 mg/dL in a nonstressed, ambulatory subject supports the diagnosis of Diabetes Mellitus. Performed By: #### V ANCT #### [address] Glucose [Mass/Vol] 190 mg/dL Normal [facility] Comment on above: Result Comment: [place] [facility] Glucose Reference Range is dependent on time and content of last meal. Glucose of more than 200 mg/dL in a nonstressed, ambulatory subject supports the diagnosis of Diabetes Mellitus. PERFORMED BY: [place] [address] PATHOLOGIST OPERATOR JIANLAN SUN M.D. Performed By: #### G LULS #### Point of Care testing , Glucose [Mass/Vol] 176 mg/dL Normal [facility] Comment on above: Result Comment: [facility] Glucose Reference Range is dependent on time and content of last meal. Glucose of more than 200 mg/dL in a nonstressed, ambulatory subject supports the diagnosis of Diabetes Mellitus. PERFORMED BY: [facility] [address] [place] [address] PATHOLOGIST OPERATOR WAYNE WAKEFIELD M.D. Performed By: #### G LULS #### Point of Care testing , Glucose [Mass/Vol] 107 mg/dL Normal [facility] Comment on above: Result Comment: [facility] Glucose Reference Range is dependent on time and content of last meal. Glucose of more than 200 mg/dL in a nonstressed, ambulatory subject supports the diagnosis of Diabetes Mellitus. PERFORMED BY: [facility] [address] [facility] [address] PATHOLOGIST OPERATOR WAYNE WAKEFIELD M.D. Performed By: #### G LULS #### Point of Care testing , Glucose [Mass/Vol] 101 mg/dL Normal [facility] Comment on above: Result Comment: [facility] Glucose Reference Range is dependent on time and content of last meal. Glucose of more than 200 mg/dL in a nonstressed, ambulatory subject supports the diagnosis of Diabetes Mellitus. PERFORMED BY: [address] [place] [address] PATHOLOGIST OPERATOR WAYNE WAKEFIELD M.D. Performed By: #### G LULS #### Point of Care testing , Serum or plasma trough vanco mycin levelOrdered By: Eron Wood on 03-13-2023 Vancomycin trough [Mass/Vol] 16.8 ug/mL 10.0-20.0 [facility] Comment on above: Last dose: - Vancomycin,Troughon 03-13-20 Vancomycin,Trough 16.8 ug/mL Normal 10.0-20.0 [facility] Comment on above: Result Comment: Last dose: - PERFORMED BY: [facility] [address] [place] [address] PATHOLOGIST OPERATOR WAYNE WAKEFIELD M.D. Performed By: #### G LULS #### Point of Care testing , Ammoniaon 03-12-2023 Ammonia (P) [Moles/Vol] 31 umol/L Normal [facility] Comment on above: Result Comment: PERF ORMED BY: [facility] [address] [place] [address] PATHOLOGIST OPERATOR WAYNE WAKEFIELD M.D. Performed By: #### G LULS #### Point of Care testing , Ammonia [Moles/volume] in Pl asmaOrdered By: Víctor Stallings on 03-12-2023 Ammonia (P) [Moles/Vol] 31 umol/L [facility] Amphetamine Screen Ql (U)Ord ered By: Eron Wood on 03-12-2023 Amphetamines Ql (U) Negative Negative [facility] Barbiturates [Presence] in U rine by Screen methodOrdered By: Eron Wood on 03-12-2023 Barbiturates Screen Ql (U) Negative Negative [facility] Basic Metabolic Panelon 02-14 Anion gap [Moles/Vol] 9.5 mmol/L Normal 6.0-15.0 [facility] Comment on above: Performed By: #### G LULS #### Point of Care testing , Calcium [Mass/Vol] 8.2 mg/dL Low 8.6-10.3 [facility] Comment on above: Performed By: #### G LULS #### Point of Care testing , Chloride [Moles/Vol] 109 mmol/L High 98-107 [facility] Comment on above: Performed By: #### G LULS #### Point of Care testing , CO2 [Moles/Vol] 23.3 mmol/L Normal 21.0-31.0 [facility] Comment on above: Performed By: #### G LULS #### Point of Care testing , Creatinine [Mass/Vol] 0.73 mg/dL Normal 0.60-1.20 [facility] Comment on above: Performed By: #### G LULS #### Point of Care testing , Creatinine Clr Calc Pharmacy 111.29 [facility] Comment on above: Result Comment: PERF ORMED BY: [facility] [address] [place] [address] PATHOLOGIST OPERATOR WAYNE WAKEFIELD M.D. Performed By: #### G LULS #### Point of Care testing , GFR/1.73 sq M.predicted MDRD (S/P/Bld) [Vol rate/Area] mL/min/{1.73_m2} [facility] Comment on above: Performed By: #### G LULS #### Point of Care testing , Glucose [Mass/Vol] 62 mg/dL Low 70-100 [facility] Comment on above: Result Comment: [facility] Glucose Reference Range is dependent on time and content of last meal. Glucose of more than 200 mg/dL in a nonstressed, ambulatory subject supports the diagnosis of Diabetes Mellitus. ADA recommended reference range Performed By: #### G LULS #### Point of Care testing , Potassium [Moles/Vol] 3.8 mmol/L Normal 3.5-5.1 [facility] Comment on above: Performed By: #### G LULS #### Point of Care testing , Sodium [Moles/Vol] 138 mmol/L Normal 136-145 [facility] Comment on above: Performed By: #### G LULS #### Point of Care testing , Urea nitrogen [Mass/Vol] 8 mg/dL Normal 7-25 [facility] Comment on above: Performed By: #### G LULS #### Point of Care testing , Benzodiazepines Screen Ql (U )Ordered By: Eron Wood on 03-12-2023 Benzodiazepines Ql (U) Negative Negative [facility] Benzoylecgonine [Presence] i n Urine by Screen methodOrdered By: Eron Wood on 03-12-2023 Benzoylecgonine Screen Ql (U) Negative Negative [facility] CT head/brain wo conon 03-12 CT head/brain wo con [facility] Main [address] [address] [address] Scan Report Signed Patient: Christiane Perez MR#: [id number] 2 : 1975 Acct:[id number] Age/Sex: 48 / F ADM Date: 03/10/23 Loc: Room: [address] [place] [address] Type: ADM IN Attending Dr: Eron Wood [...] Vick Eden M.D.03/12/2023 4:47 PM Dictation Location: [place] [address] Transcribed By: [facility] 03/12/23 1647 Dictated By: Vick Eden II, MD 03/12/23 1647 Signed By: 03/12/23 164 Normal [facility] Calciumon 03-12-2023 Calcium [Mass/Vol] 8.4 mg/dL Low 8.6-10.3 [facility] Comment on above: Result Comment: PERF ORMED BY: [address] [address] PATHOLOGIST OPERATOR WAYNE WAKEFIELD M.D. Performed By: #### G MARE #### Point of Care testing , Cannabinoids [Presence] in U rine by Screen methodOrdered By: Eron Wood on 03-12-2023 Cannabinoids Screen Ql (U) Negative Negative [facility] Comment on above: These are unconfirme d results and should not be used for legal purposes. Drug Cut-Off Concentration: AMPH 1000 ng/mL HANNAH 200 ng/mL JENNIFER 200 ng/mL COCM 300 ng/mL OP 300 ng/mL PCP 25 ng/mL THC 20 ng/mL Complete Blood Count Auto Di ffon 03-12-2023 Basophils (Bld) [#/Vol] 0.1 10*3/uL Normal 0.0-0.2 [facility] Comment on above: Result Comment: PERF ORMED BY: [facility] [address] [place] [address] PATHOLOGIST OPERATOR WAYNE WAKEFIELD M.D. Performed By: #### G LULS #### Point of Care testing , Basophils/100 WBC (Bld) 0.7 % Normal . [facility] Comment on above: Performed By: #### G LULS #### Point of Care testing , Eosinophils (Bld) [#/Vol] 0.3 10*3/uL Normal 0.0-0.45 [facility] Comment on above: Performed By: #### G LULS #### Point of Care testing , Eosinophils/100 WBC (Bld) 2.9 % Normal . [facility] Comment on above: Performed By: #### G LULS #### Point of Care testing , Erythrocyte distribution width (RBC) [Ratio] 15.8 % High 11.9-15.3 [facility] Comment on above: Performed By: #### G LULS #### Point of Care testing , Hematocrit (Bld) [Volume fraction] 35.6 % Normal 34.0-46.4 [facility] Comment on above: Performed By: #### G LULS #### Point of Care testing , Hemoglobin (Bld) [Mass/Vol] 11.8 g/dL Normal 11.8-15.4 [facility] Comment on above: Performed By: #### G MARYLS #### Point of Care testing , Lymphocytes (Bld) [#/Vol] 1.3 10*3/uL Normal 1.00-4.8 [facility] Comment on above: Performed By: #### G MARYLS #### Point of Care testing , Lymphocytes/100 WBC (Bld) 13.5 % Normal . [facility] Comment on above: Performed By: #### G MARYLS #### Point of Care testing , MCH (RBC) [Entitic mass] 32.4 pg Normal 24.7-34.3 [facility] Comment on above: Performed By: #### G MARYLS #### Point of Care testing , MCV (RBC) [Entitic vol] 97.7 fL Normal 80-100 [facility] Comment on above: Performed By: #### Sophia HERNANDEZLS #### Point of Care testing , Mean Corpuscular HGB Conc 33.1 g/dL Normal 32.0-35.0 [facility] Comment on above: Performed By: #### G MARE #### Point of Care testing , Monocytes (Bld) [#/Vol] 0.9 10*3/uL High 0.0-0.8 [facility] Comment on above: Performed By: #### G MARYLS #### Point of Care testing , Monocytes/100 WBC (Bld) 9.2 % Normal . [facility] Comment on above: Performed By: #### G MARYLS #### Point of Care testing , Neutrophils (Bld) [#/Vol] 7.2 10*3/uL Normal 1.8-7.7 [facility] Comment on above: Performed By: #### G MARYLS #### Point of Care testing , Neutrophils/100 WBC (Bld) 73.7 % Normal . [facility] Comment on above: Performed By: #### G MARYLS #### Point of Care testing , NRBC% 0.1 /100{WBC} Normal 0-0.5 [facility] Comment on above: Performed By: #### G LULS #### Point of Care testing , Platelet mean volume (Bld) [Entitic vol] 6.8 fL Normal 6.3-10.7 [facility] Comment on above: Performed By: #### G LULS #### Point of Care testing , Platelets (Bld) [#/Vol] 342 10*3/uL Normal 150-450 [facility] Comment on above: Performed By: #### G LULS #### Point of Care testing , RBC (Bld) [#/Vol] 3.64 10*6/uL Normal 3.60-5.[address] [facility] Comment on above: Performed By: #### G LULS #### Point of Care testing , WBC (Bld) [#/Vol] 9.8 10*3/uL Normal 3.8-11.6 [facility] Comment on above: Performed By: #### G LULS #### Point of Care testing , Drug Screen,Urineon 03-12-20 23 Amphetamine Screen,Urine Negative Normal Negative [facility] Comment on above: Performed By: #### C BC, BMP, MG #### [facility] [address] [place] [address] [place] Barbiturate Screen,Urine Negative Normal Negative [facility] Comment on above: Performed By: #### C BC, BMP, MG #### [facility] [address] [place] [address] [place] Benzodiazepines Screen,Urine Negative Normal Negative [facility] Comment on above: Performed By: #### C BC, BMP, MG #### [facility] [address] [place] [address] [place] Cannabinoid Screen,Urine Negative Normal Negative [facility] Comment on above: Result Comment: Thes e are unconfirmed results and should not be used for legal purposes. Drug Cut-Off Concentration: AMPH 1000 ng/mL HANNAH 200 ng/mL JENNIFER 200 ng/mL COCM 300 ng/mL OP 300 ng/mL PCP 25 ng/mL THC 20 ng/mL PERFORMED BY: [place] [address] PATHOLOGIST OPERATOR WAYNE WAKEFIELD M.D. Performed By: #### C BC, BMP, MG #### [facility] [address] Cocaine Screen,Urine Negative Normal Negative [facility] Comment on above: Performed By: #### C BC, BMP, MG #### [facility] [address] [place] [address] [place] Opiate Screen,Urine Positive High Negative [facility] Comment on above: Performed By: #### C BC, BMP, MG #### [facility] [address] [place] [address] Phencyclidine Screen,Urine Negative Normal Negative [facility] Comment on above: Performed By: #### C BC, BMP, MG #### [address] Glucose Poct Glucometerson 0 03-12-2023 Commemt1 Glu2: Cleaned Meter Normal [facility] Comment on above: Result Comment: PERF ORMED BY: [place] [address] PATHOLOGIST OPERATOR WAYNE WAKEFIELD M.D. Performed By: #### C BC, BMP, MG #### [address] Glucose [Mass/Vol] 199 mg/dL Normal [facility] Comment on above: Result Comment: [facility] Glucose Reference Range is dependent on time and content of last meal. Glucose of more than 200 mg/dL in a nonstressed, ambulatory subject supports the diagnosis of Diabetes Mellitus. Performed By: #### C BC, BMP, MG #### [facility] [address] [place] [address] Glucose [Mass/Vol] 158 mg/dL Normal [facility] Comment on above: Result Comment: [facility] Glucose Reference Range is dependent on time and content of last meal. Glucose of more than 200 mg/dL in a nonstressed, ambulatory subject supports the diagnosis of Diabetes Mellitus. PERFORMED BY: [facility] [address] [facility] [place] [address] PATHOLOGIST OPERATOR WAYNE WAKEFIELD M.D. Performed By: #### G LULS #### Point of Care testing , Glucose [Mass/Vol] 152 mg/dL Normal [facility] Comment on above: Result Comment: [place] Glucose Reference Range is dependent on time and content of last meal. Glucose of more than 200 mg/dL in a nonstressed, ambulatory subject supports the diagnosis of Diabetes Mellitus. PERFORMED BY: [address] [place] [address] PATHOLOGIST OPERATOR WAYNE WAKEFIELD M.D. Performed By: #### G LULS #### Point of Care testing , Commemt1 Glu2: Cleaned Meter Normal [facility] Comment on above: Result Comment: PERF ORMED BY: [address] [place] [address] PATHOLOGIST OPERATOR WAYNE WAKEFIELD M.D. Performed By: #### G LULS #### Point of Care testing , Glucose [Mass/Vol] 75 mg/dL Normal [facility] Comment on above: Result Comment: [facility] Glucose Reference Range is dependent on time and content of last meal. Glucose of more than 200 mg/dL in a nonstressed, ambulatory subject supports the diagnosis of Diabetes Mellitus. Performed By: #### G LULS #### Point of Care testing , Opiates [Presence] in Urine by Screen methodOrdered By: Eron Wood on 03-12-2023 Opiates Screen Ql (U) Positive Negative [facility] Phencyclidine Screen Ql (U)O rdered By: Eron Wood on 03-12-2023 Phencyclidine Ql (U) Negative Negative [facility] Vancomycin [Mass/volume] in Serum or Plasma --peakOrdered By: Eron Wood on 03-12-2023 Vancomycin peak [Mass/Vol] 14.6 ug/mL 20.0-40.0 [facility] Comment on above: Last dose: - Vancomycin,Peakon 03-12-2023 Vancomycin,Peak 14.6 ug/mL Low 20.0-40.0 [facility] Comment on above: Order Comment: Comme nt ?DRAW 1 HOUR AFTER INFUSION COMPLETES Date of last dose?: [id number] Time of last dose?: 1500 Result Comment: Last dose: - PERFORMED BY: [place] [address] PATHOLOGIST OPERATOR WAYNE WAKEFIELD M.D. Performed By: #### G LULS #### Point of Care testing , Vancomycin,Troughon 03-12-20 Vancomycin,Trough 17.8 ug/mL Normal 10.0-20.0 [facility] Comment on above: Result Comment: Last dose: - PERFORMED BY: [place] [address] PATHOLOGIST OPERATOR WAYNE WAKEFIELD M.D. Performed By: #### V ANCT #### [address] XR chest 1V portableon 03-12 XR chest 1V portable [facility] [place] [address] [place] [address] XRay Report Signed Patient: Christiane Perez MR#: [id number] 2 : 1975 Acct:[id number] Age/Sex: 48 / F ADM Date: 03/10/23 Loc: Room: [address] [place] [address] Type: ADM IN Attending Dr: Eron Wood [...] 03/12/231616 Signed By: 03/12/23 161 [facility] XR chest 1V portable [facility] [place] [address] XRay Report Signed Patient: Christiane Perez MR#: [id number] 2 : 1975 Acct:[id number] Age/Sex: 48 / F ADM Date: 03/10/23 Loc: Room: [address] [place] [address] Type: ADM IN Attending Dr: Eron Wood [...] 135 Signed By: 03/12/23 135 [facility] AFB Specimen Processingon AFB Specimen Processing Concentration Negative Performed at: [address] [id number] [employer] Project Manager: Juan Jennings PhD, Phone: [phone] Negative No acid fast bacilli isolated after 6 weeks. Performed at: [address] [id number] [employer] Project Manager: Juan Jennings PhD, Phone: [phone] PERFORMED BY: [place] [address] PATHOLOGIST OPERATOR WAYNE WAKEFIELD M.D. [facility] Comment on above: Performed By: #### G LULS #### Point of Care testing , Aerobic Cultureon 03-11-2023 Aerobic Culture ORGANISM: Janine tropicalis (O:CANTRO) Quantity of Growth Light Growth ORGANISM: Janine albicans (O:CANALB) Quantity of Growth Light Growth Gram Stain Result 1+ White Blood Cells Rare Epithelial Cells Rare Gram Positive Bacilli Rare Gram Positive Cocci 1+ Yeast Like Elements PERFORMED BY: [place] [address] PATHOLOGIST OPERATOR WAYNE WAKEFIELD M.D. [facility] Comment on above: Performed By: #### A ERC #### [facility] [address] [place] [address] [place] Bacteria identified Aer cx N om (Bronch spec)Ordered By: Errol Nicole on 03-11-2023 Bronchial Culture Janine tropicalis [facility] Bronchial Culture Janine albicans F [facility] Basic Metabolic Panelon 02-14 Anion gap [Moles/Vol] 8.9 mmol/L Normal 6.0-15.0 [facility] Comment on above: Performed By: #### C BC, BMP, MG #### [facility] [address] [place], [place] [address] [place] Calcium [Mass/Vol] 8.4 mg/dL Low 8.6-10.3 [facility] Comment on above: Performed By: #### C BC, BMP, MG #### [facility] [address] [place], [place] [address] [place] Chloride [Moles/Vol] 107 mmol/L Normal 98-107 [facility] Comment on above: Performed By: #### C BC, BMP, MG #### [facility] [address] [place], [place] [address] [place] CO2 [Moles/Vol] 25.0 mmol/L Normal 21.0-31.0 [facility] Comment on above: Performed By: #### C BC, BMP, MG #### [facility] [address] [place] [address] [place] Creatinine [Mass/Vol] 0.72 mg/dL Normal 0.60-1.20 [facility] Comment on above: Performed By: #### C BC, BMP, MG #### [facility] [address] [place] [address] [place] Creatinine Clr Calc Pharmacy 112.35 [facility] Comment on above: Performed By: #### C BC, BMP, MG #### [facility] [address] [place] [address] [place] GFR/1.73 sq M.predicted MDRD (S/P/Bld) [Vol rate/Area] mL/min/{1.73_m2} [facility] Comment on above: Performed By: #### C BC, BMP, MG #### [facility] [address] Glucose [Mass/Vol] 120 mg/dL High 70-100 [facility] Comment on above: Result Comment: [facility] Glucose Reference Range is dependent on time and content of last meal. Glucose of more than 200 mg/dL in a nonstressed, ambulatory subject supports the diagnosis of Diabetes Mellitus. ADA recommended reference range Performed By: #### C BC, BMP, MG #### [facility] [address] [place] [address] [place] Potassium [Moles/Vol] 3.9 mmol/L Normal 3.5-5.1 [facility] Comment on above: Performed By: #### C BC, BMP, MG #### [facility] [address] [place] [address] [place] Sodium [Moles/Vol] 137 mmol/L Normal 136-145 [facility] Comment on above: Performed By: #### C BC, BMP, MG #### [facility] [address] [place] [address] [place] Urea nitrogen [Mass/Vol] 10 mg/dL Normal 7-25 [facility] Comment on above: Performed By: #### C BC, BMP, MG #### [address] Bronch Cultureon 03-11-2023 Bronch Culture ORGANISM: Janine tropicalis (O:CANTRO) Quantity of Growth Light Growth ORGANISM: Jainne albicans (O:CANALB) Quantity of Growth Light Growth PERFORMED BY: [place] [address] PATHOLOGIST OPERATOR WAYNE WAKEFIELD M.D. Normal [facility] Comment on above: Performed By: #### G LULS #### Point of Care testing , Complete Blood Count Auto Di ffon 03-11-2023 Basophils (Bld) [#/Vol] 0.0 10*3/uL Normal 0.0-0.2 [facility] Comment on above: Result Comment: PERF ORMED BY: [place] [address] PATHOLOGIST OPERATOR WAYNE WAKEFIELD M.D. Performed By: #### C BC, BMP, MG #### [address] Basophils/100 WBC (Bld) 0.3 % Normal . [facility] Comment on above: Performed By: #### C BC, BMP, MG #### [address] Eosinophils (Bld) [#/Vol] 0.2 10*3/uL Normal 0.0-0.45 [facility] Comment on above: Performed By: #### C BC, BMP, MG #### [address] Eosinophils/100 WBC (Bld) 2.1 % Normal . [facility] Comment on above: Performed By: #### C BC, BMP, MG #### [address] Erythrocyte distribution width (RBC) [Ratio] 15.9 % High 11.9-15.3 [facility] Comment on above: Performed By: #### C BC, BMP, MG #### [place] [address] Hematocrit (Bld) [Volume fraction] 36.2 % Normal 34.0-46.4 [facility] Comment on above: Performed By: #### C JOE SANABRIA, MG #### [address] Hemoglobin (Bld) [Mass/Vol] 11.9 g/dL Normal 11.8-15.4 [facility] Comment on above: Performed By: #### C DANIELE BMP, MG #### [address] Lymphocytes (Bld) [#/Vol] 1.1 10*3/uL Normal 1.00-4.8 [facility] Comment on above: Performed By: #### C DANIELE BMP, MG #### [address] Lymphocytes/100 WBC (Bld) 9.5 % Normal . [facility] Comment on above: Performed By: #### C DANIELE BMP, MG #### [address] MCH (RBC) [Entitic mass] 31.9 pg Normal 24.7-34.3 [facility] Comment on above: Performed By: #### C DANIELE BMP, MG #### [address] MCV (RBC) [Entitic vol] 97.5 fL Normal 80-100 [facility] Comment on above: Performed By: #### C DANIELE BMP, MG #### [address] Mean Corpuscular HGB Conc 32.8 g/dL Normal 32.0-35.0 [facility] Comment on above: Performed By: #### C BC BMP, MG #### [address] Monocytes (Bld) [#/Vol] 1.0 10*3/uL High 0.0-0.8 [facility] Comment on above: Performed By: #### C BC BMP, MG #### [facility] [address] [place] [address] [place] Monocytes/100 WBC (Bld) 8.9 % Normal . [facility] Comment on above: Performed By: #### C BC, BMP, MG #### [facility] [address] [place] [address] [place] Neutrophils (Bld) [#/Vol] 9.3 10*3/uL High 1.8-7.7 [facility] Comment on above: Performed By: #### C BC, BMP, MG #### [facility] [address] Neutrophils/100 WBC (Bld) 79.2 % Normal . [facility] Comment on above: Performed By: #### C BC, BMP, MG #### [facility] [address] NRBC% 0.0 /100{WBC} Normal 0-0.5 [facility] Comment on above: Performed By: #### C BC, BMP, MG #### [facility] [address] [place] [address] [place] Platelet mean volume (Bld) [Entitic vol] 7.1 fL Normal 6.3-10.7 [facility] Comment on above: Performed By: #### C BC, BMP, MG #### [facility] [address] [place] [address] [place] Platelets (Bld) [#/Vol] 360 10*3/uL Normal 150-450 [facility] Comment on above: Performed By: #### C BC, BMP, MG #### [facility] [address] [place] [address] [place] RBC (Bld) [#/Vol] 3.72 10*6/uL Normal 3.60-5.[address] [facility] Comment on above: Performed By: #### C BC, BMP, MG #### [facility] [address] [place] [address] [place] WBC (Bld) [#/Vol] 11.7 10*3/uL High 3.8-11.[address] [facility] Comment on above: Performed By: #### C BC, BMP, MG #### [facility] [address] Fungal cultureOrdered By: Corrina Nicole on 03-11-2023 Fungus identified Cx Nom (Unsp spec) [facility] Fungus # 2 identified in Uns pecified specimen by CultureOrdered By: Errol Nicole on 03-11-2023 Fungus identified # 2 Cx Nom (Unsp spec) [facility] Fungus # 3 identified in Uns pecified specimen by CultureOrdered By: Errol Nicole on 03-11-2023 Fungus identified # 3 Cx Nom (Unsp spec) [facility] Fungus (Mycology) Cultureon 03-11-2023 Fungus (Mycology) Culture Preliminary report Final report Janine glabrata Janine tropicalis Performed at: [place] [address] [employer] Project Manager: Juan Jennings PhD, Phone: [phone] Janine albicans Performed at: [place] [address] [employer] Project Manager: Juan Jennings PhD, Phone: [phone] PERFORMED BY: [place] [address] PATHOLOGIST OPERATOR WAYNE WAKEFIELD M.D. [facility] Comment on above: Performed By: #### G LULS #### Point of Care testing , Fungus (Mycology) Result 2on 03-11-2023 Fungus (Mycology) Result 2 Janine tropicalis Performed at: [place] [address] [employer] Project Manager: Juan Jennings PhD, Phone: [phone] Janine albicans Performed at: [place] [address] [employer] Project Manager: Juan Jennings PhD, Phone: [phone] PERFORMED BY: [facility] [address] [place] [address] PATHOLOGIST OPERATOR WAYNE WAKEFIELD M.D. [facility] Comment on above: Performed By: #### G LULS #### Point of Care testing , Glucose Poct Glucometerson 0 03-11-2023 Commemt1 Glu2: Cleaned Meter [facility] Comment on above: Result Comment: PERF ORMED BY: [address] [place] [address] PATHOLOGIST OPERATOR WAYNE WAKEFIELD M.D. Performed By: #### G LULS #### Point of Care testing , Glucose [Mass/Vol] 121 mg/dL Normal [facility] Comment on above: Result Comment: [place] om Glucose Reference Range is dependent on time and content of last meal. Glucose of more than 200 mg/dL in a nonstressed, ambulatory subject supports the diagnosis of Diabetes Mellitus. Performed By: #### G LULS #### Point of Care testing , Commemt1 Glu2: Cleaned Meter [facility] Comment on above: Result Comment: PERF ORMED BY: [place] [address] PATHOLOGIST OPERATOR WAYNE WAKEFIELD M.D. Performed By: #### G LULS #### Point of Care testing , Glucose [Mass/Vol] 80 mg/dL Normal [facility] Comment on above: Result Comment: [place] om Glucose Reference Range is dependent on time and content of last meal. Glucose of more than 200 mg/dL in a nonstressed, ambulatory subject supports the diagnosis of Diabetes Mellitus. Performed By: #### G LULS #### Point of Care testing , Glucose [Mass/Vol] 134 mg/dL Normal [facility] Comment on above: Result Comment: [place] om Glucose Reference Range is dependent on time and content of last meal. Glucose of more than 200 mg/dL in a nonstressed, ambulatory subject supports the diagnosis of Diabetes Mellitus. PERFORMED BY: [address] [place] [address] PATHOLOGIST OPERATOR WAYNE WAKEFIELD M.D. Performed By: #### G LULS #### Point of Care testing , Commemt1 [facility] Comment on above: Result Comment: Glu2 : WILL NOTIFY DR/RN PERFORMED BY: [address] [place] [address] PATHOLOGIST OPERATOR WAYNE WAKEFIELD M.D. Performed By: #### G LULS #### Point of Care testing , Glucose [Mass/Vol] 58 mg/dL Off scale low [facility] Comment on above: Result Comment: [place] om Glucose Reference Range is dependent on time and content of last meal. Glucose of more than 200 mg/dL in a nonstressed, ambulatory subject supports the diagnosis of Diabetes Mellitus. Performed By: #### G LULS #### Point of Care testing , Commemt1 Glu2: Cleaned Meter Normal [facility] Comment on above: Result Comment: PERF ORMED BY: [address] [place] [address] PATHOLOGIST OPERATOR WAYNE WAKEFIELD M.D. Performed By: #### G LULS #### Point of Care testing , Glucose [Mass/Vol] 249 mg/dL Normal [facility] Comment on above: Result Comment: [place] om Glucose Reference Range is dependent on time and content of last meal. Glucose of more than 200 mg/dL in a nonstressed, ambulatory subject supports the diagnosis of Diabetes Mellitus. Performed By: #### G LULS #### Point of Care testing , Glucose [Mass/Vol] 138 mg/dL Normal [facility] Comment on above: Result Comment: [place] om Glucose Reference Range is dependent on time and content of last meal. Glucose of more than 200 mg/dL in a nonstressed, ambulatory subject supports the diagnosis of Diabetes Mellitus. PERFORMED BY: [address] [place] [address] PATHOLOGIST OPERATOR WAYNE WAKEFIELD M.D. Performed By: #### G LULS #### Point of Care testing , Gram Stainon 03-11-2023 Microscopic observation Gram stain Nom (Unsp spec) Gram Stain Result 1+ White Blood Cells 1+ Yeast Like Elements No Bacteria Seen Fungus Smear Results 1+ Yeast Like Elements Seen PERFORMED BY: [address] [place] [id number] PATHOLOGIST OPERATOR WAYNE WAKEIFELD M.D. [facility] Comment on above: Performed By: #### G MARE #### Point of Care testing , [place] 03-11-2023 L ----- Specimen: [id number] Received: 03/12/23 Status: DAY St Num: [id number] Spec Type: Cytology Subm Dr: Errol Nicole MD Tissues: A BRONWASH ([facility]) Procedures: HE/2, Gross/Micro L4, Cyto Prepstain, PAPSTN Age/ Patient Sex Location Account Attending Physician Christiane Perez 48/F 3T [id number] Krunal Kelly DO SPEC NUM: [id number] RECD: 03/12/23 STATUS: DAY ST NUM: [id number] HARRY: 03/11/[address]: Errol Nicole MD ENTERED: 03/12/23 [facility] DR: SPEC TYPE: Cytology DEPT: CN ENTERED BY: [id number] RECV BY: [id number] ORDERED: HE/2, Gross/Micro L4, Cyto Prepstain, PAPSTN ORDERED: HE/2, Gross/Micro L4, Cyto Prepstain, PAPSTN Pathological Diagnosis Bronchial wash, cytology: - Negative for malignancy, inflammatory process - See note and pathology report [id number] Note: Smear and cell block shows many [...] [id number] Received: 03/12/23 Status: DAY Martioscar Num: [id number] Spec Type: Cytology Subm Dr: Errol Nicole MD Tissues: A BRONWASH ([facility]) Procedures: HE/2, Gross/Micro L4, Cyto Prepstain, PAPSTN Patient: Christiane Perez Neto [id number] (Continued) Signed (signature on file) Gregory Aranda MD 03/17/23820 [facility] L ----- Specimen: [id number] Received: 03/11/23 Status: DAY St Num: [id number] Spec Type: Surgical Subm Dr: Errol Nicole MD Tissues: A Lung - Transbroncial Biopsy ([facility] BX) Procedures: ISIDRA SONG, HE/5, Gross/Micro L4, GMS II ARMANI Oquendo Age/ Patient Sex Location Account Attending Physician Christiane Perez 48/F 3T [id number] Krunal Kelly DO SPEC NUM: [id number] RECD: 03/11/23 STATUS: DAY REOscar NUM: [id number] HARRY: 03/11/23- DR: Errol Nicole MD ENTERED: [...] negative. This case will send to the [facility] for consultation and second opinion and the result will be reported as an addendum. Specimen: [id number] Received: 03/11/23 Status: DAY St Num: [id number] Spec Type: Surgical Subm Dr: Errol Nicole MD Tissues: A Lung - Transbroncial Biopsy ([facility] BX) Procedures: PAS - LGRN, HE/5, Gross/Micro L4, GMS II Dark, AFB Patient: PerezChristiane [id number] (Continued) Specimen: [id number] Received: 03/11/23 (Continued) Signed (signature on file) Gregory Aranda MD 03/17/2312 Specimen: [id number] Received: 03/11/23 Status: DAY St Num: [id number] Spec Type: Surgical Subm Dr: Errol Nicole MD Tissues: A Lung - Transbroncial Biopsy ([facility] BX) Procedures: ISIDRA - NOHEMI, HE/5, Gross/Micro L4, GMS II Dark, AFB Patient: Christiane Perez [id number] (Continued) Specimen: [id number] Received: 03/11/23 (Continued) Clinical Information Abscess Gross Description Received in formalin labeled with the patient's name, date of and [facility] biopsies are multiple villegas tissues measuring 1.5 x 0.3 x 0.2 cm in aggregate. Entirely submitted in one cassette labeled A1. Microscopic Description Two H E slides reviewed. The microscopic examination confirms the diagnosis. CPT Codes 29072 Specimen: [id number] Received: 03/11/23 Status: DAY Martioscar Num: [id number] Spec Type: Surgical Subm Dr: Errol Nicole MD Tissues: A Lung - Transbroncial Biopsy ([facility] BX) Procedures: ISIDRA SONG, HE/5, Gross/Micro L4, GMS II ARMANI Oquendo Patient: Christiane Perez [id number] (Continued) Signed (signature on file) Gregory Aranda MD 03/17/23811 Normal [facility] Magnesiumon 03-11-2023 Magnesium [Mass/Vol] 1.9 mg/dL Normal 1.9-2.7 [facility] Comment on above: Result Comment: PERF ORMED BY: [place] [address] PATHOLOGIST OPERATOR WAYNE WAKEFIELD M.D. Performed By: #### C BC, BMP, MG #### [facility] [address] [place], [place] [address] [facility] Magnesium [Mass/volume] in S kaitlin or PlasmaOrdered By: Eron Wood on 03-11-2023 Magnesium [Mass/Vol] 1.9 mg/dL 1.9-2.7 [facility] Vancomycin,Peakon 03-11-2023 Vancomycin,Peak 12.5 ug/mL Low 20.0-40.0 [facility] Comment on above: Order Comment: Comme nt ?DRAW 1 HOUR AFTER INFUSION COMPLETES Date of last dose?: [id number] Time of last dose?: 1500 Result Comment: Last dose: - PERFORMED BY: [place] [address] PATHOLOGIST OPERATOR WAYNE WAKEFIELD M.D. Performed By: #### G MARE #### Point of Care testing , Activated partial thrombopla stin time (aPTT) in platelet poor plasma by coagulation aOrdered By: Lavell Salazar on 03-10-2023 aPTT Coag (PPP) [Time] 40.2 s 25.1-36.5 [facility] B-Type Natriuretic Peptideon 03-10-2023 Natriuretic peptide B (Bld) [Mass/Vol] 46.0 pg/mL Normal 5-100 [facility] Comment on above: Result Comment: PERF ORMED BY: [place] [address] PATHOLOGIST OPERATOR WAYNE WAKEFIELD M.D. Performed By: #### C BC, BMP, MG #### [facility] [address] [place], [place] [address] [facility] Bacterial blood cultureOrder ed By: Lavell Salazar on 03-10-2023 Bacteria identified Cx Nom (Bld) NO GROWTH 5 DAYS [facility] Basic Metabolic Panelon 02-14 Anion gap [Moles/Vol] 11.3 mmol/L Normal 6.0-15.0 [facility] Comment on above: Performed By: #### C BC, BMP, MG #### [facility] [address] Calcium [Mass/Vol] 8.9 mg/dL Normal 8.6-10.3 [facility] Comment on above: Performed By: #### C BC, BMP, MG #### [facility] [address] [place] [address] [place] Chloride [Moles/Vol] 103 mmol/L Normal 98-107 [facility] Comment on above: Performed By: #### C BC, BMP, MG #### [facility] [address] CO2 [Moles/Vol] 24.2 mmol/L Normal 21.0-31.0 [facility] Comment on above: Performed By: #### C BC, BMP, MG #### [facility] [address] [place] [address] [place] Creatinine [Mass/Vol] 0.70 mg/dL Normal 0.60-1.20 [facility] Comment on above: Performed By: #### C BC, BMP, MG #### [facility] [address] [place] [address] [place] Creatinine Clr Calc Pharmacy 117.33 [facility] Comment on above: Result Comment: PERF ORMED BY: [place] [address] PATHOLOGIST OPERATOR WAYNE WAKEFIELD M.D. Performed By: #### C BC, BMP, MG #### [facility] [address] [place] [address] [place] GFR/1.73 sq M.predicted MDRD (S/P/Bld) [Vol rate/Area] mL/min/{1.73_m2} [facility] Comment on above: Performed By: #### C BC BMP, MG #### [facility] [address] Glucose [Mass/Vol] 69 mg/dL Low 70-100 [facility] Comment on above: Result Comment: [place] Glucose Reference Range is dependent on time and content of last meal. Glucose of more than 200 mg/dL in a nonstressed, ambulatory subject supports the diagnosis of Diabetes Mellitus. ADA recommended reference range Performed By: #### C BC BMP, MG #### [address] Potassium [Moles/Vol] 3.5 mmol/L Normal 3.5-5.1 [facility] Comment on above: Performed By: #### C BC BMP, MG #### [address] Sodium [Moles/Vol] 135 mmol/L Low 136-145 [facility] Comment on above: Performed By: #### C BC BMP, MG #### [address] Urea nitrogen [Mass/Vol] 10 mg/dL Normal 7-25 [facility] Comment on above: Performed By: #### C BC BMP, MG #### [place] [address] [place] Bilirubin.direct [Mass/volum e] in Serum or PlasmaOrdered By: Lavell Salazar on 03-10-2023 Bilirubin.direct [Mass/Vol] 0.20 mg/dL 0.03-0.18 [facility] Blood Cultureon 03-10-2023 Bacteria identified Cx Nom (Bld) NO GROWTH 5 DAYS [place]: [place] [address] PATHOLOGIST OPERATOR WAYNE WAKEFIELD M.D. [facility] [facility] Comment on above: Performed By: #### C BC, BMP, MG #### [address] Bacteria identified Cx Nom (Bld) NO GROWTH 5 DAYS PERFORMED BY: [address] [place] [address] PATHOLOGIST OPERATOR WAYNE WAKEFIELD M.D. [facility] Comment on above: Performed By: #### C DANIELE, JOE, #### [place] [id number] [facility] CT chest w conon 03-10-2023 CT chest w [facility] [place] [address] [place] [address] CT Scan Report Signed Patient: Christiane Perez MR#: [id number] 2 : 1975 Acct:[id number] Age/Sex: 48 / F ADM Date: 03/10/23 Loc: ER Room: Type: [facility] ER Attending Dr: Copies to: Lavell [...] Giovanny Cleveland M.D.03/10/2023 2:30 PM Dictation Location: [place] [address] Transcribed By: [facility] 03/10/23 1430 Dictated By: Giovanny Cleveland DO 03/10/23 1421 Signed By: 03/10/23 1430 Normal [facility] Complete Blood Count Auto Di ffon 03-10-2023 Basophils (Bld) [#/Vol] 0.0 10*3/uL Normal 0.0-0.2 [facility] Comment on above: Result Comment: PERF ORMED BY: [facility] [address] [place] [address] PATHOLOGIST OPERATOR WAYNE WAKEFIELD M.D. Performed By: #### G LULS #### Point of Care testing , Basophils/100 WBC (Bld) 0.2 % Normal . [facility] Comment on above: Performed By: #### G LULS #### Point of Care testing , Eosinophils (Bld) [#/Vol] 0.2 10*3/uL Normal 0.0-0.45 [facility] Comment on above: Performed By: #### G LULS #### Point of Care testing , Eosinophils/100 WBC (Bld) 1.1 % Normal . [facility] Comment on above: Performed By: #### G LULS #### Point of Care testing , Erythrocyte distribution width (RBC) [Ratio] 15.4 % High 11.9-15.3 [facility] Comment on above: Performed By: #### G LULS #### Point of Care testing , Hematocrit (Bld) [Volume fraction] 38.1 % Normal 34.0-46.4 [facility] Comment on above: Performed By: #### G LULS #### Point of Care testing , Hemoglobin (Bld) [Mass/Vol] 12.8 g/dL Normal 11.8-15.4 [facility] Comment on above: Performed By: #### G LULS #### Point of Care testing , Lymphocytes (Bld) [#/Vol] 1.0 10*3/uL Normal 1.00-4.8 [facility] Comment on above: Performed By: #### G MARYLS #### Point of Care testing , Lymphocytes/100 WBC (Bld) 5.7 % Normal . [facility] Comment on above: Performed By: #### G MARYLS #### Point of Care testing , MCH (RBC) [Entitic mass] 32.6 pg Normal 24.7-34.3 [facility] Comment on above: Performed By: #### G MARYLS #### Point of Care testing , MCV (RBC) [Entitic vol] 97.2 fL Normal 80-100 [facility] Comment on above: Performed By: #### G MARYLS #### Point of Care testing , Mean Corpuscular HGB Conc 33.5 g/dL Normal 32.0-35.0 [facility] Comment on above: Performed By: #### G MARYLS #### Point of Care testing , Monocytes (Bld) [#/Vol] 1.2 10*3/uL High 0.0-0.8 [facility] Comment on above: Performed By: #### Sophia HERNANDEZLS #### Point of Care testing , Monocytes/100 WBC (Bld) 24.68 % High 0.00-20.00 [facility] Comment on above: Result Comment: For adults in ED, MDW > 20.0 may be associated with a higher risk of sepsis during the first 12 hrs of hospital admission Performed By: #### G MARYLS #### Point of Care testing , Monocytes/100 WBC (Bld) 7.2 % Normal . [facility] Comment on above: Performed By: #### G MARYLS #### Point of Care testing , Neutrophils (Bld) [#/Vol] 14.2 10*3/uL High 1.8-7.7 [facility] Comment on above: Performed By: #### G MARYLS #### Point of Care testing , Neutrophils/100 WBC (Bld) 85.8 % Normal . [facility] Comment on above: Performed By: #### G LULS #### Point of Care testing , NRBC% 0.1 /100{WBC} Normal 0-0.5 [facility] Comment on above: Performed By: #### G MARYLS #### Point of Care testing , Platelet mean volume (Bld) [Entitic vol] 7.2 fL Normal 6.3-10.7 [facility] Comment on above: Performed By: #### G MARYLS #### Point of Care testing , Platelets (Bld) [#/Vol] 410 10*3/uL Normal 150-450 [facility] Comment on above: Performed By: #### G MARYLS #### Point of Care testing , RBC (Bld) [#/Vol] 3.92 10*6/uL Normal 3.60-5.[address] [facility] Comment on above: Performed By: #### G MARYLS #### Point of Care testing , WBC (Bld) [#/Vol] 16.6 10*3/uL High 3.8-11.[address] [facility] Comment on above: Performed By: #### G MARE #### Point of Care testing , Creatine Kinaseon 03-10-2023 CK [Catalytic activity/Vol] 23 U/L Low 30-223 [facility] Comment on above: Performed By: #### C BC, BMP, MG #### [address] Creatine kinase [Enzymatic a ctivity/volume] in Serum or PlasmaOrdered By: Lavell Salazar on 03-10-2023 CK [Catalytic activity/Vol] 23 U/L 30-223 [facility] ECG 12 lead ECGon 03-10-2023 ECG 12 lead ECG [facility] [place] [address] Electrocardiograph Report Signed Patient: Christiane Perez MR#: [id number] 2 : 1975 Acct:[id number] Age/Sex: 48 / F ADM Date: 03/10/23 Loc: ER Room: Type: [facility] ER Attending Dr: Ordering Provider: Lavell [...] has shortened Confirmed by Lavell Salazar DO ([id number]) on 03/10/2023 3:09:19 PM Referred By: Electronically Signed By:Lavell Salazar DO Transcribed By: MUS Signed By Lavell Salazar DO 3 1509 Normal [facility] Glucose Poct Glucometerson 0 03-10-2023 Glucose [Mass/Vol] 129 mg/dL Normal [facility] Comment on above: Result Comment: [facility] Glucose Reference Range is dependent on time and content of last meal. Glucose of more than 200 mg/dL in a nonstressed, ambulatory subject supports the diagnosis of Diabetes Mellitus. PERFORMED BY: [address] [place] [address] PATHOLOGIST OPERATOR WAYNE WAKEFIELD M.D. Performed By: #### G LULS #### Point of Care testing , Commemt1 Glu2: Cleaned Meter Normal [facility] Comment on above: Result Comment: PERF ORMED BY: [facility] [address] [place] [address] PATHOLOGIST OPERATOR WAYNE WAKEFIELD M.D. Performed By: #### G LULS #### Point of Care testing , Glucose [Mass/Vol] 176 mg/dL Normal [facility] Comment on above: Result Comment: [facility] Glucose Reference Range is dependent on time and content of last meal. Glucose of more than 200 mg/dL in a nonstressed, ambulatory subject supports the diagnosis of Diabetes Mellitus. Performed By: #### G LULS #### Point of Care testing , Hepatic Panelon 03-10-2023 Albumin [Mass/Vol] 3.3 g/dL Low 3.5-5.7 [facility] Comment on above: Performed By: #### C BC, BMP, MG #### [facility] [address] [place] [address] Albumin/Globulin [Mass ratio] 0.9 {ratio} Normal [facility] Comment on above: Performed By: #### C BC, BMP, MG #### [facility] [address] [place] [address] ALP [Catalytic activity/Vol] 110 U/L High 34-104 [facility] Comment on above: Performed By: #### C BC, BMP, MG #### [facility] [address] [place] [address] ALT [Catalytic activity/Vol] 6 U/L Low 7-52 [facility] Comment on above: Performed By: #### C BC, BMP, MG #### [facility] [address] [place] [address] AST [Catalytic activity/Vol] 10 U/L Low 13-39 [facility] Comment on above: Performed By: #### C BC, BMP, MG #### [facility] [address] [place] [address] Bilirubin [Mass/Vol] 0.7 mg/dL Normal 0.3-1.0 [facility] Comment on above: Performed By: #### C BC, BMP, MG #### [facility] [address] [place] [address] Bilirubin,Indirect 0.5 mg/dL Normal [facility] Comment on above: Performed By: #### C BC, BMP, MG #### [facility] [address] [place] [address] Bilirubin.indirect [Mass/Vol] 0.20 mg/dL High 0.03-0.18 [facility] Comment on above: Performed By: #### C BC, BMP, MG #### [facility] [address] [place] [address] Globulin (S) [Mass/Vol] 3.6 g/dL Normal [facility] Comment on above: Performed By: #### C BC, BMP, MG #### [facility] [address] [place] [address] [place] Protein [Mass/Vol] 6.9 g/dL Normal 6.4-8.9 [facility] Comment on above: Performed By: #### C BC, BMP, MG #### [facility] [address] Laboratory - CoagulationOrde red By: Lavell Salazar on 03-10-2023 PT Coag (PPP) [Time] 14.3 s 9.0-12.9 [facility] Lactate [Moles/volume] in Se rum or PlasmaOrdered By: Lavell Salazar on 03-10-2023 Lactate [Moles/Vol] 1.2 mmol/L 0.5-2.[address] [facility] Lactic Acidon 03-10-2023 Lactate [Moles/Vol] 1.2 mmol/L Normal 0.5-2.[address] [facility] Comment on above: Result Comment: PERF ORMED BY: [place] [address] PATHOLOGIST OPERATOR WAYNE WAKEFIELD M.D. Performed By: #### G MARE #### Point of Care testing , Monocyte distribution width [Entitic volume] in Blood by AutomatedOrdered By: Lavell Salazar on 03-10-2023 Monocyte distribution width Auto (Bld) [Entitic vol] 24.68 % 0.00-20.00 [facility] Comment on above: For adults in ED, MD W > 20.0 may be associated with a higher risk of sepsis during the first 12 hrs of hospital admission Natriuretic peptide B [Mass/ Vol]Ordered By: Lavell Salazar on 03-10-2023 Natriuretic peptide B (Bld) [Mass/Vol] 46.0 pg/mL 5-100 [facility] Partial Thromboplastin Timeo n 03-10-2023 aPTT Coag (Bld) [Time] 40.2 s High 25.1-36.5 [facility] Comment on above: Result Comment: PERF ORMED BY: [facility] [address] [facility] [place] [address] PATHOLOGIST OPERATOR WAYNE WAKEFIELD M.D. Performed By: #### G MARE #### Point of Care testing , Platelet poor plasma interna tional normalized ratio (INR) by coagulation assay (relatOrdered By: Lavell Salazar on 03-10-2023 INR Coag (PPP) [Relative time] 1.2 {INR} [facility] Comment on above: INR Therapeutic Rang e [...] Coag (PPP) [Relative time] 1.2 {INR} Normal [facility] Comment on above: Result Comment: INR Therapeutic [...] Coag (PPP) [Time] 14.3 s High 9.0-12.9 [facility] Comment on above: Performed By: #### G LUAUGUSTIN #### Point of Care testing , Serum or plasma non-glucuron idated bilirubin measurement (mass/volume)Ordered By: Lavell Salazar on 03-10-2023 Bilirubin.indirect [Mass/Vol] 0.5 mg/dL [facility] Troponin I High Sensitivityo n 03-10-2023 Troponin I High Sensitivity 12.8 pg/mL Normal 0.0-15.0 [facility] Comment on above: Result Comment: PERF ORMED BY: [facility] [address] [place] [address] PATHOLOGIST OPERATOR WAYNE WAKEFIELD M.D. Performed By: #### C BC, BMP, MG #### [address] Troponin I.cardiac [Mass/vol ume] in Serum or Plasma by Detection limit <= 0.01 ng/Ordered By: Lavell Salazar on 03-10-2023 Troponin I.cardiac DL <= 0.01 ng/mL [Mass/Vol] 12.8 pg/mL 0.0-15.0 [facility] XR chest 1V portableon 03-10 XR chest 1V portable [facility] [place] [address] [place] [address] XRay Report Signed Patient: Christiane Perez MR#: [id number] 2 : 1975 Acct:[id number] Age/Sex: 48 / F ADM Date: 03/10/23 [...] Johnson Jr., DJosueOJosue03/10/2023 1:11 PM Dictation Location: [place] [address] Transcribed By: [facility] 03/10/231310 Dictated By: Rodger Johnson Jr, DO 03/10/231309 Signed By: 03/10/23 131 Normal [facility] Insurance Correspondence Off 02-19-2023 Insurance Correspondence Office [id number]#[id number]:12 7 Normal [facility] Quick Strepon 02-14-2023 S. pyogenes Org specific cx Ql (Throat) Negative [employer] [facility] [employer] Other Quick Strep [facility] [employer] Other Insurance Correspondence Off iceon 01-20-2023 Insurance Correspondence Office [id number]#[id number]:1 27 Normal [facility] CBC AUTO DIFFon 12-01-2022 BASO # 0.0 103/ul Normal 0.0-0.1 [facility] Comment on above: Performed By: #### I NFLUAB #### [facility] [address] [place] [address] Dr. Roscoe Segal Basophils/100 WBC (Bld) 0.6 % Normal 0.2-2.0 [facility] Comment on above: Performed By: #### I NFLUAB #### [facility] [address] [place] [address] Dr. Roscoe Segal EO # 0.2 103/ul Normal 0.0-0.7 [facility] Comment on above: Performed By: #### I NFLUAB #### [facility] [address] [place] [address] Dr. Roscoe Segal Eosinophils/100 WBC (Bld) 2.4 % Normal 0.9-7.0 [facility] Comment on above: Performed By: #### I NFLUAB #### [facility] [address] [place] [address] Dr. Roscoe Segal Erythrocyte distribution width (RBC) [Ratio] 14.9 % Normal 11.0-15.0 [facility] Comment on above: Performed By: #### I NFLUAB #### [facility] [address] [place] [address] Dr. Roscoe Segal Hematocrit (Bld) [Volume fraction] 44.7 % Normal 36.0-48.0 [facility] Comment on above: Performed By: #### I NFLUAB #### [facility] [address] [place] [address] Dr. Roscoe Segal Hemoglobin (Bld) [Mass/Vol] 14.9 g/dL Normal 12.0-16.0 [facility] Comment on above: Performed By: #### I NFLUAB #### [facility] [address] [place] [address] [address] Roscoe Segal IG # 0.02 10e3/ul Normal 0.00-0.03 [facility] Comment on above: Performed By: #### I NFLUAB #### [facility] [address] [place] [address] Dr. Roscoe Segal IG % 0.3 % Normal 0.0-0.5 [facility] Comment on above: Performed By: #### I NFLUAB #### [facility] [address] [place] [address] Dr. Roscoe Segal LYMPH # 1.6 103/ul Normal 1.2-3.8 [facility] Comment on above: Performed By: #### I NFLUAB #### [facility] [address] [place] [address] Dr. Roscoe Segal Lymphocytes/100 WBC (Bld) 26.1 % Normal 20.5-60.0 [facility] Comment on above: Performed By: #### I NFLUAB #### [facility] [address] [place] [address] Dr. Roscoe Segal MANUAL DIFF REQ NO Normal [facility] Comment on above: Performed By: #### I NFLUAB #### [facility] [address] [place] [address] [address] Roscoe Segal MCH (RBC) [Entitic mass] 32.3 pg Normal 26.7-34.0 [facility] Comment on above: Performed By: #### I NFLUAB #### [facility] [address] [place] [address] [address] Roscoe Segal MCHC (RBC) [Mass/Vol] 33.3 g/dL Normal 29.9-35.2 [facility] Comment on above: Performed By: #### I NFLUAB #### [facility] [address] [place] [address] Dr. Roscoe Segal MCV (RBC) [Entitic vol] 96.8 fL Normal 81.0-99.0 [facility] Comment on above: Performed By: #### I NFLUAB #### [facility] [address] [place] [address] Dr. Roscoe Segal MONO # 0.6 103/ul Normal 0.3-0.8 [facility] Comment on above: Performed By: #### I NFLUAB #### [facility] [address] [place] [address] Dr. Roscoe Segal Monocytes/100 WBC (Bld) 9.1 % Normal 1.7-12.0 [facility] Comment on above: Performed By: #### I NFLUAB #### [facility] [address] [place] [address] Dr. Roscoe Segal NEUT # 3.8 103/ul Normal 1.4-6.5 [facility] Comment on above: Performed By: #### I NFLUAB #### [facility] [address] [place] [address] Dr. Roscoe Segal Neutrophils/100 WBC (Bld) 61.5 % Normal 43.0-75.0 [facility] Comment on above: Performed By: #### I NFLUAB #### [facility] [address] [place] [address] Dr. Roscoe Segal Platelet mean volume (Bld) [Entitic vol] 8.5 fL Critically low 9.5-13.5 [facility] Comment on above: Performed By: #### I NFLUAB #### [facility] [address] [place] [address] Dr. Roscoe Segal PLT 268 103/ul Normal 150-450 [facility] Comment on above: Performed By: #### I NFLUAB #### [facility] [address] [place] [address] Dr. Roscoe Segal RBC 4.62 106/ul Normal 4.20-5.40 [facility] Comment on above: Performed By: #### I NFLUAB #### [facility] [address] [place] [address] [address] Roscoe Segal WBC 6.3 103/ul Normal 4.0-11.0 [facility] Comment on above: Performed By: #### I NFLUAB #### [facility] [address] [place] [address] Dr. Roscoe Segal GLYCOHEMOGLOBIN A1Con 2022 ADA RECOMMENDATION SEE BELOW Normal [facility] Comment on above: Result Comment: ADA RECOMMENDED LIMIT 4.0 - 6.0 ADA THERAPEUTIC TARGET < 7.0 ACTION SUGGESTED > 7.0 Performed By: #### C BC #### [facility] [address] [place] [address] [address] Roscoe Segal Glucose [Mass/Vol] 137 mg/dL Normal [facility] Comment on above: Performed By: #### C BC #### [facility] [address] [place] [address] Dr. Roscoe Segal HbA1c (Bld) [Mass fraction] 6.4 % Critically high 4.5-6.2 [facility] Comment on above: Performed By: #### C BC #### [facility] [address] [place] [address] Dr. Roscoe Segal LIPID PROFILEon 12-01-2022 CHOL-HDL RATIO NORM SEE BELOW Normal [facility] Comment on above: Result Comment: 3.3 - 4.4 LOW RISK 4.4 - 7.1 AVERAGE RISK 7.1 - 11.0 MODERATE RISK >11.0 HIGH RISK Performed By: #### I NFLUAB #### [facility] [address] [place] [address] Dr. Roscoe Segal Cholesterol [Mass/Vol] 116 mg/dL Normal <=200 [facility] Comment on above: Performed By: #### I NFLUAB #### [facility] [address] [place] [address] Dr. Roscoe Segal Cholesterol in HDL [Mass/Vol] 58 mg/dL Normal 40-60 [facility] Comment on above: Performed By: #### I NFLUAB #### [facility] [address] [place] [address] Dr. Roscoe Segal Cholesterol in LDL [Mass/Vol] 43.4 mg/dL Normal [facility] Comment on above: Performed By: #### I NFLUAB #### [facility] [address] [place] [address] [address] Roscoe Segal Cholesterol.total/Chol esterol in HDL [Mass ratio] 2.0 {ratio} Normal [facility] Comment on above: Performed By: #### I NFLUAB #### [facility] [address] [place] [address] [address] Roscoe Segal HDL NORMAL > or = 60 mg/dl - LO W CARDIOVASCULAR RISK <40 mg/dl - HIGH CARDIOVASCULAR RISK Normal [facility] Comment on above: Performed By: #### I NFLUAB #### [facility] [address] [place] [address] [address] Roscoe Segal LDL CALC NORMAL SEE BELOW Normal [facility] Comment on above: Result Comment: <100 mg/dl OPTIMAL 100 - 129 mg/dl NEAR OR ABOVE OPTIMAL 130 - 159 mg/dl BORDERLINE HIGH 160 - 189 mg/dl HIGH >190 mg/dl VERY HIGH Performed By: #### I NFLUAB #### [facility] [address] [place] [address] [address] Roscoe Segal Triglyceride [Mass/Vol] 73 mg/dL Normal <=150 [facility] Comment on above: Performed By: #### I NFLUAB #### [facility] [address] [place] [address] [address] Roscoe Segal VLDL CALC 14.6 mg/dL Normal [facility] Comment on above: Performed By: #### I NFLUAB #### [facility] [address] [place] [address] [address] Roscoe Segal PROF 14(COMP METB)on 023 Albumin [Mass/Vol] 2.9 g/dL Critically low 3.4-5.0 [facility] Comment on above: Performed By: #### P OCGLUC #### [facility] [address] [place] [address] [address] Roscoe Segal Albumin/Globulin [Mass ratio] 0.8 {ratio} Normal [facility] Comment on above: Performed By: #### P OCGLUC #### [facility] [address] [place] [address] [address] Roscoe Segal ALP [Catalytic activity/Vol] 114 U/L Normal 46-116 [facility] Comment on above: Performed By: #### P OCGLUC #### [facility] [address] [place] [address] [address] Roscoe Segal ALT [Catalytic activity/Vol] 15 U/L Normal 14-59 [facility] Comment on above: Performed By: #### P OCGLUC #### [facility] [address] [place] [address] [address] Roscoe Segal Anion gap [Moles/Vol] 14.3 mmol/L Normal [facility] Comment on above: Performed By: #### P OCGLUC #### [facility] [address] [place] [address] [address] Roscoe Segal AST [Catalytic activity/Vol] 10 U/L Critically low 15-37 [facility] Comment on above: Performed By: #### P OCGLUC #### [facility] [address] [place] [address] [address] Roscoe Segal Bilirubin [Mass/Vol] 0.3 mg/dL Normal 0.2-1.0 [facility] Comment on above: Performed By: #### P OCGLUC #### [facility] [address] [place] [address] [address] Roscoe Segal Calcium [Mass/Vol] 8.7 mg/dL Normal 8.5-10.1 [facility] Comment on above: Performed By: #### P OCGLUC #### [facility] [address] [place] [address] [address] Roscoe Segal Chloride [Moles/Vol] 104 mmol/L Normal 98-107 [facility] Comment on above: Performed By: #### P OCGLUC #### [facility] [address] [place] [address] [address] Roscoe Segal CO2 [Moles/Vol] 23.5 mmol/L Normal 21.0-32.0 [facility] Comment on above: Performed By: #### P OCGLUC #### [facility] [address] [place] [address] [address] Roscoe Segal Creatinine [Mass/Vol] 0.83 mg/dL Normal 0.55-1.02 [facility] Comment on above: Performed By: #### P OCGLUC #### [facility] [address] [place] [address] [address] Roscoe Segal EGFR-AF NEPALESE >60 Normal >=60 [facility] Comment on above: Performed By: #### P OCGLUC #### [facility] [address] [place] [address] [address] Roscoe Segal EGFR-NON AF NEPALESE >60 Normal >=60 [facility] Comment on above: Performed By: #### P OCGLUC #### [facility] [address] [place] [address] [address] Roscoe Segal Globulin (S) [Mass/Vol] 3.5 g/dL Normal [facility] Comment on above: Performed By: #### P OCGLUC #### [facility] [address] [place] [address] [address] Roscoe Segal Glucose [Mass/Vol] 235 mg/dL Critically high 74-106 [facility] Comment on above: Performed By: #### P OCGLUC #### [facility] [address] [place] [address] [address] Roscoe Segal Potassium [Moles/Vol] 3.8 mmol/L Normal 3.5-5.1 [facility] Comment on above: Performed By: #### P OCGLUC #### [facility] [address] [place] [address] [address] Roscoe Segal Protein [Mass/Vol] 6.4 g/dL Normal 6.4-8.2 [facility] Comment on above: Performed By: #### P OCGLUC #### [facility] [address] [place] [address] [address] Roscoe Segal Sodium [Moles/Vol] 138 mmol/L Normal 136-145 [facility] Comment on above: Performed By: #### P OCGLUC #### [facility] [address] [place] [address] [address] Roscoe Segal Urea nitrogen [Mass/Vol] 9.0 mg/dL Normal 7.0-18.0 [facility] Comment on above: Performed By: #### P OCGLUC #### [facility] [address] [place] [address] Dr. Roscoe Segal Urea nitrogen/Creatinine [Mass ratio] 10.8 mg/mg Normal [facility] Comment on above: Performed By: #### P OCGLUC #### [facility] [address] [place] [address] Dr. Roscoe Segal CARDIAC VICK ADMITon 023 CK [Catalytic activity/Vol] 43 U/L Normal 26-192 [facility] Comment on above: Performed By: #### I NFLUAB #### [facility] [address] [place] [address] Dr. Roscoe Seagl CK.MB [Mass/Vol] 2.22 ng/mL Normal <=3.60 [facility] Comment on above: Performed By: #### I NFLUAB #### [facility] [address] [place] [address] Dr. Roscoe Segal GWEN 58 ng/mL Normal 9-82 [facility] Comment on above: Performed By: #### I NFLUAB #### [facility] [address] [place] [address] Dr. Roscoe Segal CBC AUTO DIFFon 09-11-2022 BASO # 0.1 103/ul Normal 0.0-0.1 [facility] Comment on above: Performed By: #### P OCGLUC #### [facility] [address] [place] [address] Dr. Roscoe Segal Basophils/100 WBC (Bld) 0.8 % Normal 0.2-2.0 [facility] Comment on above: Performed By: #### P OCGLUC #### [facility] [address] [place] [address] Dr. Roscoe Segal EO # 0.2 103/ul Normal 0.0-0.7 [facility] Comment on above: Performed By: #### P OCGLUC #### [facility] [address] [address] [address] Roscoe Segal Eosinophils/100 WBC (Bld) 2.1 % Normal 0.9-7.0 [facility] Comment on above: Performed By: #### P OCGLUC #### [facility] [address] [place] [address] Dr. Roscoe Segal Erythrocyte distribution width (RBC) [Ratio] 14.2 % Normal 11.0-15.0 [facility] Comment on above: Performed By: #### P OCGLUC #### [facility] [address] [place] [address] Dr. Roscoe Segal Hematocrit (Bld) [Volume fraction] 48.4 % Critically high 36.0-48.0 [facility] Comment on above: Performed By: #### P OCGLUC #### [facility] [address] [place] [address] Dr. Roscoe Segal Hemoglobin (Bld) [Mass/Vol] 15.0 g/dL Normal 12.0-16.0 [facility] Comment on above: Performed By: #### P OCGLUC #### [facility] [address] [place] [address] Dr. Roscoe Segal IG # 0.02 10e3/ul Normal 0.00-0.03 [facility] Comment on above: Performed By: #### P OCGLUC #### [facility] [address] [place] [address] Dr. Roscoe Segal IG % 0.2 % Normal 0.0-0.5 [facility] Comment on above: Performed By: #### P OCGLUC #### [facility] [address] [place] [address] Dr. Roscoe Segal LYMPH # 2.2 103/ul Normal 1.2-3.8 [facility] Comment on above: Performed By: #### P OCGLUC #### [facility] [address] [place] [address] Dr. Roscoe Segal Lymphocytes/100 WBC (Bld) 26.8 % Normal 20.5-60.0 [facility] Comment on above: Performed By: #### P OCGLUC #### [facility] [address] [address] [address] Roscoe Segal MANUAL DIFF REQ NO Normal [facility] Comment on above: Performed By: #### P OCGLUC #### [facility] [address] [address] [address] Roscoe Segal MCH (RBC) [Entitic mass] 32.8 pg Normal 26.7-34.0 [facility] Comment on above: Performed By: #### P OCGLUC #### [facility] [address] [place] [address] Dr. Roscoe Segal MCHC (RBC) [Mass/Vol] 31.0 g/dL Normal 29.9-35.2 [facility] Comment on above: Performed By: #### P OCGLUC #### [facility] [address] [place] [address] Dr. Roscoe Segal MCV (RBC) [Entitic vol] 105.7 fL Critically high 81.0-99.0 [facility] Comment on above: Result Comment: Slig ht Macrocytosis Present Performed By: #### P OCGLUC #### [facility] [address] [place] [address] Dr. Roscoe Segal MONO # 0.7 103/ul Normal 0.3-0.8 [facility] Comment on above: Performed By: #### P OCGLUC #### [facility] [address] [place] [address] Dr. Roscoe Segal Monocytes/100 WBC (Bld) 8.9 % Normal 1.7-12.0 [facility] Comment on above: Performed By: #### P OCGLUC #### [facility] [address] [place] [address] Dr. Roscoe Segal NEUT # 5.1 103/ul Normal 1.4-6.5 [facility] Comment on above: Performed By: #### P OCGLUC #### [facility] [address] [place] [address] Dr. Roscoe Segal Neutrophils/100 WBC (Bld) 61.2 % Normal 43.0-75.0 [facility] Comment on above: Performed By: #### P OCGLUC #### [facility] [address] [address] [address] Roscoe Segal Platelet mean volume (Bld) [Entitic vol] 8.7 fL Critically low 9.5-13.5 [facility] Comment on above: Performed By: #### P OCGLUC #### [facility] [address] [address] [address] Roscoe Segal PLT 382 103/ul Normal 150-450 [facility] Comment on above: Performed By: #### P OCGLUC #### [facility] [address] [address] [address] Roscoe Segal RBC 4.58 106/ul Normal 4.20-5.40 [facility] Comment on above: Performed By: #### P OCGLUC #### [facility] [address] [address] [address] Roscoe Segal WBC 8.3 103/ul Normal 4.0-11.0 [facility] Comment on above: Performed By: #### P OCGLUC #### [facility] [address] [address] [address] Roscoe Segal GLUCOSE BLOODon 09-11-2022 Glucose [Mass/Vol] 39 mg/dL Critically low 74-106 [facility] Comment on above: Performed By: #### P OCGLUC #### [facility] [address] [address] [address] Roscoe Segal POINT OF CARE GLUCOSEon 08-17 Glucose [Mass/Vol] 103 mg/dL Normal 74-106 [facility] Comment on above: Performed By: #### P OCGLUC #### [facility] [address] [address] [address] Roscoe Segal Glucose [Mass/Vol] 284 mg/dL Critically high 74-106 [facility] Comment on above: Performed By: #### P OCGLUC #### [facility] [address] [address] [address] Roscoe Segal Glucose [Mass/Vol] 104 mg/dL Normal 74-106 [facility] Comment on above: Performed By: #### P OCGLUC #### [facility] [address] [address] [address] Roscoe Segal Glucose [Mass/Vol] 94 mg/dL Normal 74-106 [facility] Comment on above: Performed By: #### I NFLUAB #### [facility] [address] [address] [address] Roscoe Segal Glucose [Mass/Vol] 136 mg/dL Critically high 74-106 [facility] Comment on above: Performed By: #### P OCGLUC #### [facility] [address] [address] [address] Roscoe Segal Glucose [Mass/Vol] 181 mg/dL Critically high 74-106 [facility] Comment on above: Performed By: #### P OCGLUC #### [facility] [address] [address] [address] Roscoe Segal Glucose [Mass/Vol] 103 mg/dL Normal 74-106 [facility] Comment on above: Performed By: #### C BC #### [facility] [address] [address] [address] Roscoe Segal Glucose [Mass/Vol] 81 mg/dL Normal 74-106 [facility] Comment on above: Performed By: #### P OCGLUC #### [facility] [address] [address] [address] Roscoe Segal Glucose [Mass/Vol] 52 mg/dL Critically low 74-106 [facility] Comment on above: Performed By: #### P OCGLUC #### [facility] [address] [address] [address] Roscoe Segal Glucose [Mass/Vol] 38 mg/dL Critically low 74-106 [facility] Comment on above: Result Comment: Will Repeat Test Performed By: #### C BC #### [facility] [address] [address] [address] Roscoe Segal Glucose [Mass/Vol] 67 mg/dL Critically low 74-106 [facility] Comment on above: Performed By: #### P OCGLUC #### [facility] [address] [place] [address] Dr. Roscoe Segal PROF CHEM 8 (BAS METB)on Anion gap [Moles/Vol] 13.1 mmol/L Normal [facility] Comment on above: Performed By: #### C BC #### [facility] [address] [place] [address] Dr. Roscoe Segal Calcium [Mass/Vol] 9.0 mg/dL Normal 8.5-10.1 [facility] Comment on above: Performed By: #### C BC #### [facility] [address] [place] [address] Dr. Roscoe Segal Chloride [Moles/Vol] 106 mmol/L Normal 98-107 [facility] Comment on above: Performed By: #### C BC #### [facility] [address] [place] [address] Dr. Roscoe Segal CO2 [Moles/Vol] 25.0 mmol/L Normal 21.0-32.0 [facility] Comment on above: Performed By: #### C BC #### [facility] [address] [place] [address] Dr. Roscoe Segal Creatinine [Mass/Vol] 0.86 mg/dL Normal 0.55-1.02 [facility] Comment on above: Performed By: #### C BC #### [facility] [address] [place] [address] Dr. Roscoe Segal EGFR-AF NEPALESE >60 Normal >=60 [facility] Comment on above: Performed By: #### C BC #### [facility] [address] [place] [address] Dr. Roscoe Segal EGFR-NON AF NEPALESE >60 Normal >=60 [facility] Comment on above: Performed By: #### C BC #### [facility] [address] [place] [address] Dr. Roscoe Segal Glucose [Mass/Vol] 36 mg/dL Critically low 74-106 [facility] Comment on above: Performed By: #### C BC #### [facility] [address] [place] [address] Dr. Roscoe Segal Potassium [Moles/Vol] 4.1 mmol/L Normal 3.5-5.1 [facility] Comment on above: Performed By: #### C BC #### [facility] [address] [address] [address] Roscoe Segal Sodium [Moles/Vol] 140 mmol/L Normal 136-145 [facility] Comment on above: Performed By: #### C BC #### [facility] [address] [address] [address] Roscoe Segal Urea nitrogen [Mass/Vol] 10.0 mg/dL Normal 7.0-18.0 [facility] Comment on above: Performed By: #### C BC #### [facility] [address] [place] [address] Dr. Roscoe Segal Urea nitrogen/Creatinine [Mass ratio] 11.6 mg/mg Normal [facility] Comment on above: Performed By: #### C BC #### [facility] [address] [place] [address] Dr. Roscoe Segal TROPONIN, HIGH SENSITIVITYon 09-11-2022 HSTROP 7.0 pg/mL Normal 4.0-51.3 [facility] Comment on above: Result Comment: CUT- OFF POINTS HAVE BEEN ESTABLISHED BASED ON THE FOURTH UNIVERSAL DEFINITIONS OF MYOCARDIAL INFARCTION. THE UPPER REFERENCE LIMIT (URL) OF TROPONIN, DEFINED THE 99TH PERCENTILE OF cTnI DISTRIBUTION IN A REFERENCE POPULATION, HAS BEEN CONFIRMED THE DECISION THRESHOLD FOR [place] DIAGNOSIS. Performed By: #### I NFLUAB #### [facility] [address] [place] [address] Dr. Roscoe Segal INFLUENZA A AND B AGon 07-24 INFLUANEGH SEE BELOW Normal [facility] Comment on above: Result Comment: Nega tive for Flu A protein angiten. Infection due to Flu A cannot be ruled out. Flu A angiten in the sample may be below the detection limit of the test. Performed By: #### I NFLUAB #### [facility] [address] [place] [address] Dr. Roscoe Segal INFLUBNEGH SEE BELOW Normal [facility] Comment on above: Result Comment: Nega tive for Flu B protein antigen. Infection due to Flu B cannot be ruled out. Flu B antigen in the sample may be below the detection limit of the test. Performed By: #### I NFLUAB #### [facility] [address] [place] [address] Dr. Roscoe Segal INFLUENZA A AG Negative Normal NEGATIVE SEE COMMENT [facility] Comment on above: Performed By: #### I NFLUAB #### [facility] [address] [place] [address] Dr. Roscoe Segal INFLUENZA B AG Negative Normal NEGATIVE SEE COMMENT [facility] Comment on above: Performed By: #### I NFLUAB #### [facility] [address] [place] [address] Dr. Roscoe Segal INTERNAL CONTROLS Within Normal Limits Normal Wi thin Normal Limits [facility] Comment on above: Performed By: #### I NFLUAB #### [facility] [address] [place] [address] Dr. Roscoe Segal XR CHEST 1 Von [...] SHAJI LIMON Date: 2022-07-24 15:26 Normal [facility] XR CHEST 2 Von 05-25-2022 XR CHEST [...] by: GERMAINE FARRELL Date: 2022-05-25 16:25 Normal [facility] BLOOD GASES BTYon 04-27-2022 02 MODE NASAL CANNULA Normal [facility] Comment on above: Performed By: #### P OCGLUC #### [facility] [address] [place] [address] Dr. Roscoe Segal ALLENS TEST Positive [facility] Comment on above: Performed By: #### P OCGLUC #### [facility] [address] [address] [address] Roscoe Segal Base excess Calc (Bld) [Moles/Vol] -1.5000 mmol/L Normal -2.0-2.0 [facility] Comment on above: Performed By: #### P OCGLUC #### [facility] [address] [place] [address] Dr. Roscoe Segal BIPAP PRESSURE [facility] Comment on above: Performed By: #### P OCGLUC #### [facility] [address] [address] [address] Roscoe Segal CPAP [facility] Comment on above: Performed By: #### P OCGLUC #### [facility] [address] [address] [address] Roscoe Segal FIO2 [facility] Comment on above: Performed By: #### P OCGLUC #### [facility] [address] [place] [address] Dr. Roscoe Segal HCO3 (Bld) [Moles/Vol] 23.2 mmol/L Normal 22.0-26.0 [facility] Comment on above: Performed By: #### P OCGLUC #### [facility] [address] [place] [address] Dr. Roscoe Segal LPM 3 [facility] Comment on above: Performed By: #### P OCGLUC #### [facility] [address] [place] [address] Dr. Roscoe Segal MINUTE VOLUME Normal [facility] Comment on above: Performed By: #### P OCGLUC #### [facility] [address] [address] [address] Roscoe Segal Oxygen (Bld) [Partial pressure] 76.4 mm[Hg] Critically low 80.0-100.0 [facility] Comment on above: Performed By: #### P OCGLUC #### [facility] [address] [address] [address] Roscoe Segal Oxygen saturation in Blood 94.8 % Critically low 95.0-100.0 [facility] Comment on above: Performed By: #### P OCGLUC #### [facility] [address] [address] [address] Roscoe Segal PCO2 39.5 mmHg Normal 35.0-45.0 [facility] Comment on above: Performed By: #### P OCGLUC #### [facility] [address] [place] [address] Dr. Roscoe Segal [facility] Comment on above: Performed By: #### P OCGLUC #### [facility] [address] [place] [address] Dr. Roscoe Segal pH (Bld) 7.384 [pH] Normal 7.350-7.45 0 [facility] Comment on above: Performed By: #### P OCGLUC #### [facility] [address] [place] [address] Dr. Roscoe Segal [facility] Comment on above: Performed By: #### P OCGLUC #### [facility] [address] [address] [address] Roscoe Segal [facility] Comment on above: Performed By: #### P OCGLUC #### [facility] [address] [address] [address] Roscoe Segal PUNCTURE SITE LR [facility] Comment on above: Performed By: #### P OCGLUC #### [facility] [address] [place] [address] Dr. Roscoe Segal RATE [facility] Comment on above: Performed By: #### P OCGLUC #### [facility] [address] [place] [address] Dr. Roscoe Segal VENT MODE Normal [facility] Comment on above: Performed By: #### P OCGLUC #### [facility] [address] [place] [address] Dr. Roscoe Segal [facility] Comment on above: Performed By: #### P OCGLUC #### [facility] [address] [place] [address] Dr. Roscoe Segal BNPon 04-27-2022 Natriuretic peptide B (Bld) [Mass/Vol] 282.0 pg/mL Normal <=450.0 [facility] Comment on above: Performed By: #### P OCGLUC #### [facility] [address] [place] [address] Dr. Roscoe Segal CBC AUTO DIFFon 04-27-2022 BASO # 0.0 103/ul Normal 0.0-0.1 [facility] Comment on above: Performed By: #### P OCGLUC #### [facility] [address] [place] [address] Dr. Roscoe Segal Basophils/100 WBC (Bld) 0.2 % Normal 0.2-2.0 [facility] Comment on above: Performed By: #### P OCGLUC #### [facility] [address] [place] [address] Dr. Roscoe Segal EO # 0.0 103/ul Normal 0.0-0.7 [facility] Comment on above: Performed By: #### P OCGLUC #### [facility] [address] [place] [address] Dr. Roscoe Segal Eosinophils/100 WBC (Bld) 0.0 % Critically low 0.9-7.0 [facility] Comment on above: Performed By: #### P OCGLUC #### [facility] [address] [place] [address] Dr. Roscoe Segal Erythrocyte distribution width (RBC) [Ratio] 14.1 % Normal 11.0-15.0 [facility] Comment on above: Performed By: #### P OCGLUC #### [facility] [address] [place] [address] Dr. Roscoe Segal Hematocrit (Bld) [Volume fraction] 39.4 % Normal 36.0-48.0 [facility] Comment on above: Performed By: #### P OCGLUC #### [facility] [address] [address] [address] Roscoe Segal Hemoglobin (Bld) [Mass/Vol] 13.0 g/dL Normal 12.0-16.0 [facility] Comment on above: Performed By: #### P OCGLUC #### [facility] [address] [place] [address] Dr. Roscoe Segal IG # 0.14 10e3/ul Critically high 0.00-0.03 [facility] Comment on above: Performed By: #### P OCGLUC #### [facility] [address] [place] [address] Dr. Roscoe Segal IG % 1.0 % Critically high 0.0-0.5 [facility] Comment on above: Performed By: #### P OCGLUC #### [facility] [address] [place] [address] Dr. Roscoe Segal LYMPH # 1.4 103/ul Normal 1.2-3.8 [facility] Comment on above: Performed By: #### P OCGLUC #### [facility] [address] [place] [address] Dr. Roscoe Segal Lymphocytes/100 WBC (Bld) 9.5 % Critically low 20.5-60.0 [facility] Comment on above: Performed By: #### P OCGLUC #### [facility] [address] [place] [address] Dr. Roscoe Segal MANUAL DIFF REQ NO Normal [facility] Comment on above: Performed By: #### P OCGLUC #### [facility] [address] [place] [address] Dr. Roscoe Segal MCH (RBC) [Entitic mass] 32.3 pg Normal 26.7-34.0 [facility] Comment on above: Performed By: #### P OCGLUC #### [facility] [address] [place] [address] Dr. Roscoe Segal MCHC (RBC) [Mass/Vol] 33.0 g/dL Normal 29.9-35.2 [facility] Comment on above: Performed By: #### P OCGLUC #### [facility] [address] [address] [address] Roscoe Segal MCV (RBC) [Entitic vol] 98.0 fL Normal 81.0-99.0 [facility] Comment on above: Performed By: #### P OCGLUC #### [facility] [address] [address] [address] Roscoe Segal MONO # 0.6 103/ul Normal 0.3-0.8 [facility] Comment on above: Performed By: #### P OCGLUC #### [facility] [address] [place] [address] Dr. Roscoe Segal Monocytes/100 WBC (Bld) 4.3 % Normal 1.7-12.0 [facility] Comment on above: Performed By: #### P OCGLUC #### [facility] [address] [place] [address] Dr. Roscoe Segal NEUT # 12.1 103/ul Critically high 1.4-6.5 [facility] Comment on above: Performed By: #### P OCGLUC #### [facility] [address] [place] [address] Dr. Roscoe Segal Neutrophils/100 WBC (Bld) 85.0 % Critically high 43.0-75.0 [facility] Comment on above: Performed By: #### P OCGLUC #### [facility] [address] [place] [address] Dr. Roscoe Segal Platelet mean volume (Bld) [Entitic vol] 8.9 fL Critically low 9.5-13.5 [facility] Comment on above: Performed By: #### P OCGLUC #### [facility] [address] [place] [address] Dr. Roscoe Segal PLT 362 103/ul Normal 150-450 [facility] Comment on above: Performed By: #### P OCGLUC #### [facility] [address] [place] [address] Dr. Roscoe Segal RBC 4.02 106/ul Critically low 4.20-5.[address] [facility] Comment on above: Performed By: #### P OCGLUC #### [facility] [address] [place] [address] Dr. Roscoe Segal WBC 14.2 103/ul Critically high 4.0-11.0 [facility] Comment on above: Performed By: #### P OCGLUC #### [facility] [address] [place] [address] Dr. Roscoe Segal D-DIMERon 04-27-2022 D-DIMER 0.29 mg/L FEU Normal <=0.59 [facility] Comment on above: Performed By: #### D DIM #### [facility] [address] [place] [address] Dr. Roscoe Segal D-DIMER COMMENTS SEE BELOW Normal [facility] Comment on above: Result Comment: Incr [...] hospitalization. Performed By: #### D DIM #### [facility] [address] [place] [address] Dr. Roscoe Segal LACTATE/LACTIC ACIDon 2021 Lactate [Moles/Vol] 2.1 mmol/L Critically high 0.4-1.9 [facility] Comment on above: Performed By: #### P OCGLUC #### [facility] [address] [place] [address] Dr. Roscoe Segal PROF 14(COMP METB)on 022 Albumin [Mass/Vol] 3.0 g/dL Critically low 3.4-5.0 [facility] Comment on above: Performed By: #### P OCGLUC #### [facility] [address] [place] [address] Dr. Roscoe Segal Albumin/Globulin [Mass ratio] 0.8 {ratio} Normal [facility] Comment on above: Performed By: #### P OCGLUC #### [facility] [address] [address] [address] Roscoe Segal ALP [Catalytic activity/Vol] 77 U/L Normal 46-116 [facility] Comment on above: Performed By: #### P OCGLUC #### [facility] [address] [address] [address] Roscoe Segal ALT [Catalytic activity/Vol] 14 U/L Normal 14-59 [facility] Comment on above: Performed By: #### P OCGLUC #### [facility] [address] [address] [address] Roscoe Segal Anion gap [Moles/Vol] 13.4 mmol/L Normal [facility] Comment on above: Performed By: #### P OCGLUC #### [facility] [address] [address] [address] Roscoe Segal AST [Catalytic activity/Vol] 7 U/L Critically low 15-37 [facility] Comment on above: Performed By: #### P OCGLUC #### [facility] [address] [address] [address] Roscoe Segal Bilirubin [Mass/Vol] 0.1 mg/dL Critically low 0.2-1.0 [facility] Comment on above: Performed By: #### P OCGLUC #### [facility] [address] [address] [address] Roscoe Segal Calcium [Mass/Vol] 8.9 mg/dL Normal 8.5-10.1 [facility] Comment on above: Performed By: #### P OCGLUC #### [facility] [address] [address] [address] Roscoe Segal Chloride [Moles/Vol] 105 mmol/L Normal 98-107 [facility] Comment on above: Performed By: #### P OCGLUC #### [facility] [address] [address] [address] Roscoe Segal CO2 [Moles/Vol] 21.8 mmol/L Normal 21.0-32.0 [facility] Comment on above: Performed By: #### P OCGLUC #### [facility] [address] [address] [address] Roscoe Segal Creatinine [Mass/Vol] 0.94 mg/dL Normal 0.55-1.02 [facility] Comment on above: Performed By: #### P OCGLUC #### [facility] [address] [address] [address] Roscoe Segal EGFR-AF NEPALESE >60 Normal >=60 [facility] Comment on above: Performed By: #### P OCGLUC #### [facility] [address] [address] [address] Roscoe Segal EGFR-NON AF NEPALESE >60 Normal >=60 [facility] Comment on above: Performed By: #### P OCGLUC #### [facility] [address] [address] [address] Roscoe Segal Globulin (S) [Mass/Vol] 3.7 g/dL Normal [facility] Comment on above: Performed By: #### P OCGLUC #### [facility] [address] [address] [address] Roscoe Segal Glucose [Mass/Vol] 283 mg/dL Critically high 74-106 [facility] Comment on above: Performed By: #### P OCGLUC #### [facility] [address] [address] [address] Roscoe Segal Potassium [Moles/Vol] 4.2 mmol/L Normal 3.5-5.1 [facility] Comment on above: Performed By: #### P OCGLUC #### [facility] [address] [address] [address] Roscoe Segal Protein [Mass/Vol] 6.7 g/dL Normal 6.4-8.2 [facility] Comment on above: Performed By: #### P OCGLUC #### [facility] [address] [address] [address] Roscoe Segal Sodium [Moles/Vol] 136 mmol/L Normal 136-145 [facility] Comment on above: Performed By: #### P OCGLUC #### [facility] [address] [address] [address] Roscoe Segal Urea nitrogen [Mass/Vol] 16.0 mg/dL Normal 7.0-18.0 [facility] Comment on above: Performed By: #### P OCGLUC #### [facility] [address] [address] [address] Roscoe Segal Urea nitrogen/Creatinine [Mass ratio] 17.0 mg/mg Normal [facility] Comment on above: Performed By: #### P OCGLUC #### [facility] [address] [address] [address] Roscoe Segal TROPONIN, HIGH SENSITIVITYon 04-27-2022 HSTROP 7.2 pg/mL Normal 4.0-51.3 [facility] Comment on above: Result Comment: CUT- OFF POINTS HAVE BEEN ESTABLISHED BASED ON THE FOURTH UNIVERSAL DEFINITIONS OF MYOCARDIAL INFARCTION. THE UPPER REFERENCE LIMIT (URL) OF TROPONIN, DEFINED THE 99TH PERCENTILE OF cTnI DISTRIBUTION IN A REFERENCE POPULATION, HAS BEEN CONFIRMED THE DECISION THRESHOLD FOR [place] DIAGNOSIS. Performed By: #### P OCGLUC #### [facility] [address] [address] [address] Roscoe Segal XR CHEST 1 Von [...] by: GERMAINE FARRELL Date: 2022-04-27 17:20 Normal [facility] CBC AUTO DIFFon 04-25-2022 BASO # 0.1 103/ul Normal 0.0-0.1 [facility] Comment on above: Performed By: #### P OCGLUC #### [facility] [address] [address] [address] Roscoe Segal Basophils/100 WBC (Bld) 0.4 % Normal 0.2-2.0 [facility] Comment on above: Performed By: #### P OCGLUC #### [facility] [address] [address] [address] Roscoe Segal EO # 0.1 103/ul Normal 0.0-0.7 [facility] Comment on above: Performed By: #### P OCGLUC #### [facility] [address] [address] [address] Roscoe Segal Eosinophils/100 WBC (Bld) 0.7 % Critically low 0.9-7.0 [facility] Comment on above: Performed By: #### P OCGLUC #### [facility] [address] [address] [address] Roscoe Segal Erythrocyte distribution width (RBC) [Ratio] 14.1 % Normal 11.0-15.0 [facility] Comment on above: Performed By: #### P OCGLUC #### [facility] [address] [address] [address] Roscoe Segal Hematocrit (Bld) [Volume fraction] 43.8 % Normal 36.0-48.0 [facility] Comment on above: Performed By: #### P OCGLUC #### [facility] [address] [address] [address] Roscoe Segal Hemoglobin (Bld) [Mass/Vol] 14.6 g/dL Normal 12.0-16.0 [facility] Comment on above: Performed By: #### P OCGLUC #### [facility] [address] [address] [address] Roscoe Segal IG # 0.09 10e3/ul Critically high 0.00-0.03 [facility] Comment on above: Performed By: #### P OCGLUC #### [facility] [address] [address] [address] Roscoe Segal IG % 0.6 % Critically high 0.0-0.[address] [facility] Comment on above: Performed By: #### P OCGLUC #### [facility] [address] [address] [address] Roscoe Segal LYMPH # 1.5 103/ul Normal 1.2-3.8 [facility] Comment on above: Performed By: #### P OCGLUC #### [facility] [address] [address] [address] Roscoe Segal Lymphocytes/100 WBC (Bld) 9.9 % Critically low 20.5-60.0 [facility] Comment on above: Performed By: #### P OCGLUC #### [facility] [address] [address] [address] Roscoe Segal MANUAL DIFF REQ NO Normal [facility] Comment on above: Performed By: #### P OCGLUC #### [facility] [address] [address] [address] Roscoe Segal MCH (RBC) [Entitic mass] 31.8 pg Normal 26.7-34.0 [facility] Comment on above: Performed By: #### P OCGLUC #### [facility] [address] [address] [address] Roscoe Segal MCHC (RBC) [Mass/Vol] 33.3 g/dL Normal 29.9-35.2 [facility] Comment on above: Performed By: #### P OCGLUC #### [facility] [address] [address] [address] Roscoe Segal MCV (RBC) [Entitic vol] 95.4 fL Normal 81.0-99.0 [facility] Comment on above: Performed By: #### P OCGLUC #### [facility] [address] [address] [address] Roscoe Segal MONO # 1.2 103/ul Critically high 0.3-0.[address] [facility] Comment on above: Performed By: #### P OCGLUC #### [facility] [address] [address] [address] Roscoe Segal Monocytes/100 WBC (Bld) 8.0 % Normal 1.7-12.0 [facility] Comment on above: Performed By: #### P OCGLUC #### [facility] [address] [place] [address] Dr. Roscoe Segal NEUT # 11.8 103/ul Critically high 1.4-6.5 [facility] Comment on above: Performed By: #### P OCGLUC #### [facility] [address] [place] [address] Dr. Roscoe Segal Neutrophils/100 WBC (Bld) 80.4 % Critically high 43.0-75.0 [facility] Comment on above: Performed By: #### P OCGLUC #### [facility] [address] [place] [address] Dr. Roscoe Segal Platelet mean volume (Bld) [Entitic vol] 8.9 fL Critically low 9.5-13.5 [facility] Comment on above: Performed By: #### P OCGLUC #### [facility] [address] [place] [address] Dr. Roscoe Segal PLT 357 103/ul Normal 150-450 [facility] Comment on above: Performed By: #### P OCGLUC #### [facility] [address] [place] [address] Dr. Roscoe Segal RBC 4.59 106/ul Normal 4.20-5.40 [facility] Comment on above: Performed By: #### P OCGLUC #### [facility] [address] [place] [address] Dr. Roscoe Segal WBC 14.7 103/ul Critically high 4.0-11.0 [facility] Comment on above: Performed By: #### P OCGLUC #### [facility] [address] [place] [address] Dr. Roscoe Segal Covid-19 PCR ([facility])on 04-16 SARS-CoV-2 (COVID-19) RNA SOILA+probe Ql (Unsp spec) Not detected Normal NOT DETECTED [facility] Comment on above: Result Comment: When diagnostic [...] for this test is supported by the Odd of Health and Human Service's declaration that [...] used). Performed By: #### P OCGLUC #### [facility] [address] [place] [address] Dr. Roscoe Segal PROF CHEM 8 (BAS METB)on Anion gap [Moles/Vol] 16.1 mmol/L Normal [facility] Comment on above: Performed By: #### B MP #### [facility] [address] [place] [address] Dr. Roscoe Segal Calcium [Mass/Vol] 9.2 mg/dL Normal 8.5-10.1 [facility] Comment on above: Performed By: #### B MP #### [facility] [address] [place] [address] Dr. Roscoe Segal Chloride [Moles/Vol] 104 mmol/L Normal 98-107 [facility] Comment on above: Performed By: #### B MP #### [facility] [address] [place] [address] Dr. Roscoe Segal CO2 [Moles/Vol] 22.5 mmol/L Normal 21.0-32.0 [facility] Comment on above: Performed By: #### B MP #### [facility] [address] [place] [address] Dr. Roscoe Segal Creatinine [Mass/Vol] 0.93 mg/dL Normal 0.55-1.02 [facility] Comment on above: Performed By: #### B MP #### [facility] [address] [address] [address] Roscoe Segal EGFR-AF NEPALESE >60 Normal >=60 [facility] Comment on above: Performed By: #### B MP #### [facility] [id number] Roscoe Segal EGFR-NON AF NEPALESE >60 Normal >=60 [facility] Comment on above: Performed By: #### B MP #### [facility] [address] [address] [address] Roscoe Segal Glucose [Mass/Vol] 227 mg/dL Critically high 74-106 [facility] Comment on above: Performed By: #### B MP #### [facility] [address] [address] [address] Roscoe Segal Potassium [Moles/Vol] 3.6 mmol/L Normal 3.5-5.1 [facility] Comment on above: Performed By: #### B MP #### [facility] [address] [address] [address] Roscoe Segal Sodium [Moles/Vol] 139 mmol/L Normal 136-145 [facility] Comment on above: Performed By: #### B MP #### [facility] [address] [address] [address] Roscoe Segal Urea nitrogen [Mass/Vol] 9.0 mg/dL Normal 7.0-18.0 [facility] Comment on above: Performed By: #### B MP #### [facility] [address] [address] [address] Roscoe Segal Urea nitrogen/Creatinine [Mass ratio] 9.7 mg/mg Normal [facility] Comment on above: Performed By: #### B MP #### [facility] [address] [place] [address] Dr. Roscoe Segal XR CHEST 1 Von [...] GERMAINE FARRELL Date: 2022-04-25 09:41 Normal [facility] GLYCOHEMOGLOBIN A1Con 2021 ADA RECOMMENDATION SEE BELOW Normal [facility] Comment on above: Result Comment: ADA RECOMMENDED LIMIT 4.0 - 6.0 ADA THERAPEUTIC TARGET < 7.0 ACTION SUGGESTED > 7.0 Performed By: #### P OCGLUC #### [facility] [address] [place] [address] Dr. Roscoe Segal Glucose [Mass/Vol] 128 mg/dL Normal [facility] Comment on above: Performed By: #### P OCGLUC #### [facility] [address] [address] [address] Roscoe Segal HbA1c (Bld) [Mass fraction] 6.1 % Normal 4.5-6.2 [facility] Comment on above: Performed By: #### P OCGLUC #### [facility] [address] [address] [address] Roscoe Segal LIPID PROFILEon 04-10-2022 CHOL-HDL RATIO NORM SEE BELOW Normal [facility] Comment on above: Result Comment: 3.3 - 4.4 LOW RISK 4.4 - 7.1 AVERAGE RISK 7.1 - 11.0 MODERATE RISK >11.0 HIGH RISK Performed By: #### L IPID #### [facility] [address] [address] [address] Roscoe Segal Cholesterol [Mass/Vol] 125 mg/dL Normal <=200 [facility] Comment on above: Performed By: #### L IPID #### [facility] [address] [address] [address] Roscoe Segal Cholesterol in HDL [Mass/Vol] 69 mg/dL Critically high 40-60 [facility] Comment on above: Performed By: #### L IPID #### [facility] [address] [address] [address] Roscoe Segal Cholesterol in LDL [Mass/Vol] 31.8 mg/dL Normal [facility] Comment on above: Performed By: #### L IPID #### [facility] [address] [address] [address] Roscoe Segal Cholesterol.total/Chol esterol in HDL [Mass ratio] 1.8 {ratio} Normal [facility] Comment on above: Performed By: #### L IPID #### [facility] [address] [place] [address] Dr. Roscoe Segal HDL NORMAL > or = 60 mg/dl - LO W CARDIOVASCULAR RISK <40 mg/dl - HIGH CARDIOVASCULAR RISK Normal [facility] Comment on above: Performed By: #### L IPID #### [facility] [address] [place] [address] Dr. Roscoe Segal LDL CALC NORMAL SEE BELOW Normal [facility] Comment on above: Result Comment: <100 mg/dl OPTIMAL 100 - 129 mg/dl NEAR OR ABOVE OPTIMAL 130 - 159 mg/dl BORDERLINE HIGH 160 - 189 mg/dl HIGH >190 mg/dl VERY HIGH Performed By: #### L IPID #### [facility] [address] [place] [address] Dr. Roscoe Segal Triglyceride [Mass/Vol] 121 mg/dL Normal <=150 [facility] Comment on above: Performed By: #### L IPID #### [facility] [address] [place] [address] Dr. Roscoe Segal VLDL CALC 24.2 mg/dL Normal [facility] Comment on above: Performed By: #### L IPID #### [facility] [address] [place] [address] Dr. Roscoe Segal Covid-19 PCR ([facility])on 03-16 SARS-CoV-2 (COVID-19) RNA SOILA+probe Ql (Unsp spec) Not detected Normal NOT DETECTED [facility] Comment on above: Result Comment: This test is not yet approved or cleared by the [place] FDA. When there are no FDA-approved or cleared tests available, and other criteria are met, FDA can make tests available under an emergency access mechanism called an Emergency Use Authorization (EUA). The EUA for this test is supported by the Director [employer] of Health and Human Service's (HHS's) declaration [...] SARS-CoV-2. Performed By: #### P OCGLUC #### [facility] [address] [place] [address] Dr. Roscoe Segal XR CHEST 1 Von [...] YASMIN HUERTAS Date: 2022-03-29 15:39 Normal [facility] CBC AUTO DIFFon 03-21-2022 BASO # 0.1 103/ul Normal 0.0-0.1 [facility] Comment on above: Performed By: #### C BC #### [facility] [address] [place] [address] Dr. Roscoe Segal Basophils/100 WBC (Bld) 0.6 % Normal 0.2-2.0 [facility] Comment on above: Performed By: #### C BC #### [facility] [address] [address] [address] Roscoe Segal EO # 0.3 103/ul Normal 0.0-0.7 [facility] Comment on above: Performed By: #### C BC #### [facility] [address] [address] [address] Roscoe Segal Eosinophils/100 WBC (Bld) 2.1 % Normal 0.9-7.0 [facility] Comment on above: Performed By: #### C BC #### [facility] [address] [place] [address] Dr. Roscoe Segal Erythrocyte distribution width (RBC) [Ratio] 14.7 % Normal 11.0-15.0 [facility] Comment on above: Performed By: #### C BC #### [facility] [address] [place] [address] Dr. Roscoe Segal Hematocrit (Bld) [Volume fraction] 47.1 % Normal 36.0-48.0 [facility] Comment on above: Performed By: #### C BC #### [facility] [address] [place] [address] Dr. Roscoe Segal Hemoglobin (Bld) [Mass/Vol] 15.6 g/dL Normal 12.0-16.0 [facility] Comment on above: Performed By: #### C BC #### [facility] [address] [place] [address] Dr. Roscoe Segal IG # 0.05 10e3/ul Critically high 0.00-0.03 [facility] Comment on above: Performed By: #### C BC #### [facility] [address] [place] [address] Dr. Roscoe Segal IG % 0.4 % Normal 0.0-0.5 [facility] Comment on above: Performed By: #### C BC #### [facility] [address] [address] [address] Roscoe Segal LYMPH # 3.9 103/ul Critically high 1.2-3.[address] [facility] Comment on above: Performed By: #### C BC #### [facility] [address] [place] [address] Dr. Roscoe Segal Lymphocytes/100 WBC (Bld) 32.1 % Normal 20.5-60.0 [facility] Comment on above: Performed By: #### C BC #### [facility] [address] [place] [address] Dr. Roscoe Segal MANUAL DIFF REQ NO Normal [facility] Comment on above: Performed By: #### C BC #### [facility] [address] [place] [address] Dr. Rsocoe Segal MCH (RBC) [Entitic mass] 31.9 pg Normal 26.7-34.0 [facility] Comment on above: Performed By: #### C BC #### [facility] [address] [place] [address] Dr. Roscoe Segal MCHC (RBC) [Mass/Vol] 33.1 g/dL Normal 29.9-35.2 [facility] Comment on above: Performed By: #### C BC #### [facility] [address] [place] [address] Dr. Roscoe Segal MCV (RBC) [Entitic vol] 96.3 fL Normal 81.0-99.0 [facility] Comment on above: Performed By: #### C BC #### [facility] [address] [place] [address] Dr. Roscoe Segal MONO # 0.9 103/ul Critically high 0.3-0.8 [facility] Comment on above: Performed By: #### C BC #### [facility] [address] [place] [address] Dr. Roscoe Segal Monocytes/100 WBC (Bld) 7.4 % Normal 1.7-12.0 [facility] Comment on above: Performed By: #### C BC #### [facility] [address] [place] [address] Dr. Roscoe Segal NEUT # 7.0 103/ul Critically high 1.4-6.5 [facility] Comment on above: Performed By: #### C BC #### [facility] [address] [place] [address] Dr. Roscoe Segal Neutrophils/100 WBC (Bld) 57.4 % Normal 43.0-75.0 [facility] Comment on above: Performed By: #### C BC #### [facility] [address] [place] [address] Dr. Roscoe Segal Platelet mean volume (Bld) [Entitic vol] 8.8 fL Critically low 9.5-13.5 [facility] Comment on above: Performed By: #### C BC #### [facility] [address] [place] [address] Dr. Roscoe Segal PLT 417 103/ul Normal 150-450 [facility] Comment on above: Performed By: #### C BC #### [facility] [address] [place] [address] Dr. Roscoe Segal RBC 4.89 106/ul Normal 4.20-5.40 [facility] Comment on above: Performed By: #### C BC #### [facility] [address] [place] [address] Dr. Roscoe Segal WBC 12.1 103/ul Critically high 4.0-11.0 [facility] Comment on above: Performed By: #### C BC #### [facility] [address] [place] [address] Dr. Roscoe Segal Covid-19 PCR ([facility])on SARS-CoV-2 (COVID-19) RNA SOILA+probe Ql (Unsp spec) Not detected Normal NOT DETECTED [facility] Comment on above: Result Comment: When diagnostic [...] for this test is supported by the Director [employer] of Health and Human Service's declaration that [...] used). Performed By: #### P OCGLUC #### [facility] [address] [place] [address] Dr. Roscoe Segal PROF CHEM 8 (BAS METB)on Anion gap [Moles/Vol] 13.4 mmol/L Normal [facility] Comment on above: Performed By: #### I NFLUAB #### [facility] [address] [place] [address] Dr. Roscoe Segal Calcium [Mass/Vol] 9.2 mg/dL Normal 8.5-10.1 [facility] Comment on above: Performed By: #### I NFLUAB #### [facility] [address] [place] [address] Dr. Roscoe Segal Chloride [Moles/Vol] 105 mmol/L Normal 98-107 [facility] Comment on above: Performed By: #### I NFLUAB #### [facility] [address] [place] [address] Dr. Roscoe Segal CO2 [Moles/Vol] 23.9 mmol/L Normal 21.0-32.0 [facility] Comment on above: Performed By: #### I NFLUAB #### [facility] [address] [place] [address] Dr. Roscoe Segal Creatinine [Mass/Vol] 0.93 mg/dL Normal 0.55-1.02 [facility] Comment on above: Performed By: #### I NFLUAB #### [facility] [address] [place] [address] Dr. Roscoe Segal EGFR-AF NEPALESE >60 Normal >=60 [facility] Comment on above: Performed By: #### I NFLUAB #### [facility] [address] [place] [address] Dr. Roscoe Segal EGFR-NON AF NEPALESE >60 Normal >=60 [facility] Comment on above: Performed By: #### I NFLUAB #### [facility] [address] [address] [address] Roscoe Segal Glucose [Mass/Vol] 141 mg/dL Critically high 74-106 [facility] Comment on above: Performed By: #### I NFLUAB #### [facility] [address] [address] [address] Roscoe Segal Potassium [Moles/Vol] 4.3 mmol/L Normal 3.5-5.1 [facility] Comment on above: Performed By: #### I NFLUAB #### [facility] [address] [place] [address] Dr. Roscoe Segal Sodium [Moles/Vol] 138 mmol/L Normal 136-145 [facility] Comment on above: Performed By: #### I NFLUAB #### [facility] [address] [place] [address] Dr. Roscoe Segal Urea nitrogen [Mass/Vol] 9.0 mg/dL Normal 7.0-18.0 [facility] Comment on above: Performed By: #### I NFLUAB #### [facility] [address] [place] [address] Dr. Roscoe Segal Urea nitrogen/Creatinine [Mass ratio] 9.7 mg/mg Normal [facility] Comment on above: Performed By: #### I NFLUAB #### [facility] [address] [place] [address] Dr. Roscoe Segal CARDIAC VICK 3-6on 2 CK [Catalytic activity/Vol] 60 U/L Normal 26-192 [facility] Comment on above: Performed By: #### P OCGLUC #### [facility] [address] [place] [address] Dr. Roscoe Segal CK.MB [Mass/Vol] 1.84 ng/mL Normal <=3.60 [facility] Comment on above: Performed By: #### P OCGLUC #### [facility] [address] [place] [address] Dr. Roscoe Segal HSTROP 8.3 pg/mL Normal 4.0-51.3 [facility] Comment on above: Result Comment: CUT- OFF POINTS HAVE BEEN ESTABLISHED BASED ON THE FOURTH UNIVERSAL DEFINITIONS OF MYOCARDIAL INFARCTION. THE UPPER REFERENCE LIMIT (URL) OF TROPONIN, DEFINED THE 99TH PERCENTILE OF cTnI DISTRIBUTION IN A REFERENCE POPULATION, HAS BEEN CONFIRMED THE DECISION THRESHOLD FOR [place] DIAGNOSIS. Performed By: #### P OCGLUC #### [facility] [address] [place] [address] Dr. Roscoe Segal CK [Catalytic activity/Vol] 57 U/L Normal 26-192 [facility] Comment on above: Performed By: #### I NFLUAB #### [facility] [address] [place] [address] Dr. Roscoe Segal CK.MB [Mass/Vol] 1.82 ng/mL Normal <=3.60 [facility] Comment on above: Performed By: #### I NFLUAB #### [facility] [address] [place] [address] Dr. Roscoe Segal HSTROP 8.1 pg/mL Normal 4.0-51.3 [facility] Comment on above: Result Comment: CUT- OFF POINTS HAVE BEEN ESTABLISHED BASED ON THE FOURTH UNIVERSAL DEFINITIONS OF MYOCARDIAL INFARCTION. THE UPPER REFERENCE LIMIT (URL) OF TROPONIN, DEFINED THE 99TH PERCENTILE OF cTnI DISTRIBUTION IN A REFERENCE POPULATION, HAS BEEN CONFIRMED THE DECISION THRESHOLD FOR [place] DIAGNOSIS. Performed By: #### I NFLUAB #### [facility] [address] [place] [address] Dr. Roscoe Segal CARDIAC VICK ADMITon 022 CK [Catalytic activity/Vol] 64 U/L Normal 26-192 [facility] Comment on above: Performed By: #### P OCGLUC #### [facility] [address] [place] [address] Dr. Roscoe Segal CK.MB [Mass/Vol] 2.19 ng/mL Normal <=3.60 [facility] Comment on above: Performed By: #### P OCGLUC #### [facility] [address] [place] [address] Dr. Roscoe Segal HSTROP 7.6 pg/mL Normal 4.0-51.3 [facility] Comment on above: Result Comment: CUT- OFF POINTS HAVE BEEN ESTABLISHED BASED ON THE FOURTH UNIVERSAL DEFINITIONS OF MYOCARDIAL INFARCTION. THE UPPER REFERENCE LIMIT (URL) OF TROPONIN, DEFINED THE 99TH PERCENTILE OF cTnI DISTRIBUTION IN A REFERENCE POPULATION, HAS BEEN CONFIRMED THE DECISION THRESHOLD FOR [place] DIAGNOSIS. Performed By: #### P OCGLUC #### [facility] [address] [place] [address] Dr. Roscoe Segal GWEN 50 ng/mL Normal 9-82 [facility] Comment on above: Performed By: #### P OCGLUC #### [facility] [address] [place] [address] Dr. Roscoe Segal CBC AUTO DIFFon 03-03-2022 BASO # 0.1 103/ul Normal 0.0-0.1 [facility] Comment on above: Performed By: #### P OCGLUC #### [facility] [address] [place] [address] Dr. Roscoe Segal Basophils/100 WBC (Bld) 0.7 % Normal 0.2-2.0 [facility] Comment on above: Performed By: #### P OCGLUC #### [facility] [address] [place] [address] Dr. Roscoe Segal EO # 0.2 103/ul Normal 0.0-0.7 [facility] Comment on above: Performed By: #### P OCGLUC #### [facility] [address] [place] [address] Dr. Roscoe Segal Eosinophils/100 WBC (Bld) 1.3 % Normal 0.9-7.0 [facility] Comment on above: Performed By: #### P OCGLUC #### [facility] [address] [place] [address] Dr. Roscoe Segal Erythrocyte distribution width (RBC) [Ratio] 14.5 % Normal 11.0-15.0 [facility] Comment on above: Performed By: #### P OCGLUC #### [facility] [address] [place] [address] Dr. Roscoe Segal Hematocrit (Bld) [Volume fraction] 44.8 % Normal 36.0-48.0 [facility] Comment on above: Performed By: #### P OCGLUC #### [facility] [address] [address] [address] Roscoe Segal Hemoglobin (Bld) [Mass/Vol] 15.0 g/dL Normal 12.0-16.0 [facility] Comment on above: Performed By: #### P OCGLUC #### [facility] [address] [address] [address] Roscoe Segal IG # 0.07 10e3/ul Critically high 0.00-0.03 [facility] Comment on above: Performed By: #### P OCGLUC #### [facility] [address] [place] [address] Dr. Roscoe Segal IG % 0.6 % Critically high 0.0-0.[address] [facility] Comment on above: Performed By: #### P OCGLUC #### [facility] [address] [place] [address] Dr. Roscoe Segal LYMPH # 4.7 103/ul Critically high 1.2-3.[address] [facility] Comment on above: Performed By: #### P OCGLUC #### [facility] [address] [place] [address] Dr. Roscoe Segal Lymphocytes/100 WBC (Bld) 38.7 % Normal 20.5-60.0 [facility] Comment on above: Performed By: #### P OCGLUC #### [facility] [address] [place] [address] Dr. Roscoe Segal MANUAL DIFF REQ NO Normal [facility] Comment on above: Performed By: #### P OCGLUC #### [facility] [address] [address] [address] Roscoe Segal MCH (RBC) [Entitic mass] 32.1 pg Normal 26.7-34.0 [facility] Comment on above: Performed By: #### P OCGLUC #### [facility] [address] [place] [address] Dr. Roscoe Segal MCHC (RBC) [Mass/Vol] 33.5 g/dL Normal 29.9-35.2 [facility] Comment on above: Performed By: #### P OCGLUC #### [facility] [address] [place] [address] Dr. Roscoe Segal MCV (RBC) [Entitic vol] 95.7 fL Normal 81.0-99.0 [facility] Comment on above: Performed By: #### P OCGLUC #### [facility] [address] [place] [address] Dr. Roscoe Segal MONO # 1.0 103/ul Critically high 0.3-0.[address] [facility] Comment on above: Performed By: #### P OCGLUC #### [facility] [address] [place] [address] Dr. Roscoe Segal Monocytes/100 WBC (Bld) 7.9 % Normal 1.7-12.0 [facility] Comment on above: Performed By: #### P OCGLUC #### [facility] [address] [place] [address] Dr. Roscoe Segal NEUT # 6.2 103/ul Normal 1.4-6.5 [facility] Comment on above: Performed By: #### P OCGLUC #### [facility] [address] [place] [address] Dr. Roscoe Segal Neutrophils/100 WBC (Bld) 50.8 % Normal 43.0-75.0 [facility] Comment on above: Performed By: #### P OCGLUC #### [facility] [address] [place] [address] Dr. Roscoe Segal Platelet mean volume (Bld) [Entitic vol] 8.8 fL Critically low 9.5-13.5 [facility] Comment on above: Performed By: #### P OCGLUC #### [facility] [address] [place] [address] Dr. Roscoe Segal PLT 407 103/ul Normal 150-450 [facility] Comment on above: Performed By: #### P OCGLUC #### [facility] [address] [place] [address] Dr. Roscoe Segal RBC 4.68 106/ul Normal 4.20-5.40 [facility] Comment on above: Performed By: #### P OCGLUC #### [facility] [address] [address] [address] Roscoe Segal WBC 12.2 103/ul Critically high 4.0-11.0 [facility] Comment on above: Performed By: #### P OCGLUC #### [facility] [address] [place] [address] Dr. Roscoe Segal LACTATE/LACTIC ACIDon 2021 Lactate [Moles/Vol] 2.1 mmol/L Critically high 0.4-1.9 [facility] Comment on above: Performed By: #### P OCGLUC #### [facility] [address] [place] [address] Dr. Roscoe Segal Lactate [Moles/Vol] 2.2 mmol/L Critically high 0.4-1.9 [facility] Comment on above: Performed By: #### P OCGLUC #### [facility] [address] [place] [address] Dr. Roscoe Segal POINT OF CARE GLUCOSEon 02-13 Glucose [Mass/Vol] 109 mg/dL Critically high 74-106 [facility] Comment on above: Performed By: #### P OCGLUC #### [facility] [address] [place] [address] Dr. Roscoe Segal Glucose [Mass/Vol] 108 mg/dL Critically high 74-106 [facility] Comment on above: Performed By: #### P OCGLUC #### [facility] [address] [place] [address] Dr. Roscoe Segal Glucose [Mass/Vol] 98 mg/dL Normal 74-106 [facility] Comment on above: Performed By: #### I NFLUAB #### [facility] [address] [place] [address] Dr. Roscoe Segal Glucose [Mass/Vol] 274 mg/dL Critically high 74-106 [facility] Comment on above: Performed By: #### C BC #### [facility] [address] [place] [address] Dr. Roscoe Segal Glucose [Mass/Vol] 87 mg/dL Normal 74-106 [facility] Comment on above: Performed By: #### P OCGLUC #### [facility] [address] [address] [address] Roscoe Segal Glucose [Mass/Vol] 98 mg/dL Normal 74-106 [facility] Comment on above: Performed By: #### P OCGLUC #### [facility] [address] [address] [address] Roscoe Segal Glucose [Mass/Vol] 131 mg/dL Critically high 74-106 [facility] Comment on above: Performed By: #### P OCGLUC #### [facility] [address] [place] [address] Dr. Roscoe Segal Glucose [Mass/Vol] 59 mg/dL Critically low 74-106 [facility] Comment on above: Performed By: #### P OCGLUC #### [facility] [address] [place] [address] Dr. Roscoe Segal Glucose [Mass/Vol] 95 mg/dL Normal 74-106 [facility] Comment on above: Performed By: #### P OCGLUC #### [facility] [address] [place] [address] Dr. Roscoe Segal PROF CHEM 8 (BAS METB)on Anion gap [Moles/Vol] 15.2 mmol/L Normal [facility] Comment on above: Performed By: #### P OCGLUC #### [facility] [address] [place] [address] Dr. Roscoe Segal Calcium [Mass/Vol] 8.7 mg/dL Normal 8.5-10.1 [facility] Comment on above: Performed By: #### P OCGLUC #### [facility] [address] [place] [address] Dr. Roscoe Segal Chloride [Moles/Vol] 108 mmol/L Critically high 98-107 [facility] Comment on above: Performed By: #### P OCGLUC #### [facility] [address] [place] [address] Dr. Roscoe Segal CO2 [Moles/Vol] 20.8 mmol/L Critically low 21.0-32.0 [facility] Comment on above: Performed By: #### P OCGLUC #### [facility] [address] [address] [address] Roscoe Sgeal Creatinine [Mass/Vol] 1.21 mg/dL Critically high 0.55-1.02 [facility] Comment on above: Performed By: #### P OCGLUC #### [facility] [address] [address] [address] Roscoe Segal EGFR-AF NEPALESE 58 mL/min/1.73m2 Critically low >=60 [facility] Comment on above: Performed By: #### P OCGLUC #### [facility] [address] [address] [address] Roscoe Segal EGFR-NON AF NEPALESE 48 mL/min/1.73m2 Critically low >=60 [facility] Comment on above: Performed By: #### P OCGLUC #### [facility] [address] [address] [address] Roscoe Segal Glucose [Mass/Vol] 54 mg/dL Critically low 74-106 [facility] Comment on above: Performed By: #### P OCGLUC #### [facility] [address] [address] [address] Roscoe Segal Potassium [Moles/Vol] 3.0 mmol/L Critically low 3.5-5.1 [facility] Comment on above: Performed By: #### P OCGLUC #### [facility] [address] [address] [address] Roscoe Segal Sodium [Moles/Vol] 141 mmol/L Normal 136-145 [facility] Comment on above: Performed By: #### P OCGLUC #### [facility] [address] [address] [address] Roscoe Segal Urea nitrogen [Mass/Vol] 11.0 mg/dL Normal 7.0-18.0 [facility] Comment on above: Performed By: #### P OCGLUC #### [facility] [address] [address] [address] Roscoe Segal Urea nitrogen/Creatinine [Mass ratio] 9.1 mg/mg Normal [facility] Comment on above: Performed By: #### P OCGLUC #### [facility] [address] [place] [address] Dr. Roscoe Segal XR CHEST 1 Von [...] JUAN BARKER Date: 2022-03-03 01:14 Normal [facility] CBC AUTO DIFFon 01-01-2022 BASO # 0.1 103/ul Normal 0.0-0.1 [facility] Comment on above: Performed By: #### P OCGLUC #### [facility] [address] [place] [address] Dr. Roscoe Segal Basophils/100 WBC (Bld) 0.7 % Normal 0.2-2.0 [facility] Comment on above: Performed By: #### P OCGLUC #### [facility] [address] [place] [address] Dr. Roscoe Segal EO # 0.1 103/ul Normal 0.0-0.7 [facility] Comment on above: Performed By: #### P OCGLUC #### [facility] [address] [address] [address] Roscoe Segal Eosinophils/100 WBC (Bld) 0.9 % Normal 0.9-7.0 [facility] Comment on above: Performed By: #### P OCGLUC #### [facility] [address] [place] [address] Dr. Roscoe Segal Erythrocyte distribution width (RBC) [Ratio] 14.5 % Normal 11.0-15.0 [facility] Comment on above: Performed By: #### P OCGLUC #### [facility] [address] [address] [address] Roscoe Segal Hematocrit (Bld) [Volume fraction] 41.4 % Normal 36.0-48.0 [facility] Comment on above: Performed By: #### P OCGLUC #### [facility] [address] [address] [address] Roscoe Segal Hemoglobin (Bld) [Mass/Vol] 13.4 g/dL Normal 12.0-16.0 [facility] Comment on above: Performed By: #### P OCGLUC #### [facility] [address] [address] [address] Roscoe Segal IG # 0.08 10e3/ul Critically high 0.00-0.03 [facility] Comment on above: Performed By: #### P OCGLUC #### [facility] [address] [place] [address] Dr. Roscoe Segal IG % 0.7 % Critically high 0.0-0.[address] [facility] Comment on above: Performed By: #### P OCGLUC #### [facility] [address] [place] [address] Dr. Roscoe Segal LYMPH # 2.4 103/ul Normal 1.2-3.8 [facility] Comment on above: Performed By: #### P OCGLUC #### [facility] [address] [place] [address] Dr. Roscoe Segal Lymphocytes/100 WBC (Bld) 22.0 % Normal 20.5-60.0 [facility] Comment on above: Performed By: #### P OCGLUC #### [facility] [address] [place] [address] Dr. Roscoe Segal MANUAL DIFF REQ NO Normal [facility] Comment on above: Performed By: #### P OCGLUC #### [facility] [address] [place] [address] Dr. Roscoe Segal MCH (RBC) [Entitic mass] 31.2 pg Normal 26.7-34.0 [facility] Comment on above: Performed By: #### P OCGLUC #### [facility] [address] [address] [address] Roscoe Segal MCHC (RBC) [Mass/Vol] 32.4 g/dL Normal 29.9-35.2 [facility] Comment on above: Performed By: #### P OCGLUC #### [facility] [address] [address] [address] Roscoe Segal MCV (RBC) [Entitic vol] 96.3 fL Normal 81.0-99.0 [facility] Comment on above: Performed By: #### P OCGLUC #### [facility] [address] [address] [address] Roscoe Segal MONO # 0.9 103/ul Critically high 0.3-0.[address] [facility] Comment on above: Performed By: #### P OCGLUC #### [facility] [address] [place] [address] Dr. Roscoe Segal Monocytes/100 WBC (Bld) 7.7 % Normal 1.7-12.0 [facility] Comment on above: Performed By: #### P OCGLUC #### [facility] [address] [address] [address] Roscoe Segal NEUT # 7.5 103/ul Critically high 1.4-6.[address] [facility] Comment on above: Performed By: #### P OCGLUC #### [facility] [address] [place] [address] Dr. Roscoe Segal Neutrophils/100 WBC (Bld) 68.0 % Normal 43.0-75.0 [facility] Comment on above: Performed By: #### P OCGLUC #### [facility] [address] [address] [address] Roscoe Segal Platelet mean volume (Bld) [Entitic vol] 8.8 fL Critically low 9.5-13.5 [facility] Comment on above: Performed By: #### P OCGLUC #### [facility] [address] [place] [address] Dr. Roscoe Segal PLT 317 103/ul Normal 150-450 [facility] Comment on above: Performed By: #### P OCGLUC #### [facility] [address] [place] [address] Dr. Roscoe Segal RBC 4.30 106/ul Normal 4.20-5.40 [facility] Comment on above: Performed By: #### P OCGLUC #### [facility] [address] [address] [address] Roscoe Segal WBC 11.1 103/ul Critically high 4.0-11.0 [facility] Comment on above: Performed By: #### P OCGLUC #### [facility] [address] [place] [address] Dr. Roscoe Segal Covid-19 PCR ([facility])on 12-14 SARS-CoV-2 (COVID-19) RNA SOILA+probe Ql (Unsp spec) Not detected Normal NOT DETECTED [facility] Comment on above: Result Comment: When diagnostic [...] for this test is supported by the Odd of Health and Human Service's declaration that [...] used). Performed By: #### P OCGLUC #### [facility] [address] [place] [address] Dr. Roscoe Segal ETHANOL (BLD ALC)on 01-02-20 22 ALC NOTE NOTE: 80 mg/dl is th e legal limit for a blood alcohol level Normal [facility] Comment on above: Performed By: #### C BC #### [facility] [address] [place] [address] Dr. Roscoe Segal Ethanol [Mass/Vol] 197 mg/dL Normal [facility] Comment on above: Performed By: #### C BC #### [facility] [address] [address] [address] Roscoe Segal PROF CHEM 8 (BAS METB)on Anion gap [Moles/Vol] 16.4 mmol/L Normal [facility] Comment on above: Performed By: #### I NFLUAB #### [facility] [address] [place] [address] Dr. Roscoe Segal Calcium [Mass/Vol] 8.2 mg/dL Critically low 8.5-10.1 [facility] Comment on above: Performed By: #### I NFLUAB #### [facility] [address] [place] [address] Dr. Roscoe Segal Chloride [Moles/Vol] 107 mmol/L Normal 98-107 [facility] Comment on above: Performed By: #### I NFLUAB #### [facility] [address] [place] [address] Dr. Roscoe Segal CO2 [Moles/Vol] 21.3 mmol/L Normal 21.0-32.0 [facility] Comment on above: Performed By: #### I NFLUAB #### [facility] [address] [place] [address] Dr. Roscoe Segal Creatinine [Mass/Vol] 0.78 mg/dL Normal 0.55-1.02 [facility] Comment on above: Performed By: #### I NFLUAB #### [facility] [address] [place] [address] Dr. Roscoe Segal EGFR-AF NEPALESE >60 Normal >=60 [facility] Comment on above: Performed By: #### I NFLUAB #### [facility] [address] [place] [address] Dr. Roscoe Segal EGFR-NON AF NEPALESE >60 Normal >=60 [facility] Comment on above: Performed By: #### I NFLUAB #### [facility] [address] [place] [address] Dr. Roscoe Segal Glucose [Mass/Vol] 310 mg/dL Critically high 74-106 [facility] Comment on above: Performed By: #### I NFLUAB #### [facility] [address] [address] [address] Roscoe Segal Potassium [Moles/Vol] 3.7 mmol/L Normal 3.5-5.1 [facility] Comment on above: Performed By: #### I NFLUAB #### [facility] [address] [address] [address] Roscoe Segal Sodium [Moles/Vol] 141 mmol/L Normal 136-145 [facility] Comment on above: Performed By: #### I NFLUAB #### [facility] [address] [place] [address] Dr. Roscoe Segal Urea nitrogen [Mass/Vol] 8.0 mg/dL Normal 7.0-18.0 [facility] Comment on above: Performed By: #### I NFLUAB #### [facility] [address] [place] [address] Dr. Roscoe Segal Urea nitrogen/Creatinine [Mass ratio] 10.3 mg/mg Normal [facility] Comment on above: Performed By: #### I NFLUAB #### [facility] [address] [place] [address] Dr. Roscoe Segal XR CHEST 1 Von [...] by: GERMAINE FARRELL Date: 2022-01-01 19:08 Normal [facility] CBC AUTO DIFFon 12-24-2021 BASO # 0.1 103/ul Normal 0.0-0.1 [facility] Comment on above: Performed By: #### I NFLUAB #### [facility] [address] [place] [address] Dr. Roscoe Segal Basophils/100 WBC (Bld) 0.9 % Normal 0.2-2.0 [facility] Comment on above: Performed By: #### I NFLUAB #### [facility] [address] [place] [address] Dr. Roscoe Segal EO # 0.2 103/ul Normal 0.0-0.7 [facility] Comment on above: Performed By: #### I NFLUAB #### [facility] [address] [place] [address] Dr. Roscoe Segal Eosinophils/100 WBC (Bld) 2.4 % Normal 0.9-7.0 [facility] Comment on above: Performed By: #### I NFLUAB #### [facility] [address] [place] [address] Dr. Roscoe Segal Erythrocyte distribution width (RBC) [Ratio] 14.8 % Normal 11.0-15.0 [facility] Comment on above: Performed By: #### I NFLUAB #### [facility] [address] [place] [address] Dr. Roscoe Segal Hematocrit (Bld) [Volume fraction] 41.1 % Normal 36.0-48.0 [facility] Comment on above: Performed By: #### I NFLUAB #### [facility] [address] [place] [address] Dr. Roscoe Segal Hemoglobin (Bld) [Mass/Vol] 13.0 g/dL Normal 12.0-16.0 [facility] Comment on above: Performed By: #### I NFLUAB #### [facility] [address] [place] [address] Dr. Roscoe Segal IG # 0.10 10e3/ul Critically high 0.00-0.03 [facility] Comment on above: Performed By: #### I NFLUAB #### [facility] [address] [place] [address] Dr. Roscoe Segal IG % 1.1 % Critically high 0.0-0.[address] [facility] Comment on above: Performed By: #### I NFLUAB #### [facility] [address] [place] [address] Dr. Roscoe Segal LYMPH # 2.0 103/ul Normal 1.2-3.8 [facility] Comment on above: Performed By: #### I NFLUAB #### [facility] [address] [place] [address] Dr. Roscoe Segal Lymphocytes/100 WBC (Bld) 21.5 % Normal 20.5-60.0 [facility] Comment on above: Performed By: #### I NFLUAB #### [facility] [address] [place] [address] Dr. Roscoe Segal MANUAL DIFF REQ NO Normal [facility] Comment on above: Performed By: #### I NFLUAB #### [facility] [address] [place] [address] Dr. Roscoe Segal MCH (RBC) [Entitic mass] 31.0 pg Normal 26.7-34.0 [facility] Comment on above: Performed By: #### I NFLUAB #### [facility] [address] [place] [address] Dr. Roscoe Segal MCHC (RBC) [Mass/Vol] 31.6 g/dL Normal 29.9-35.2 [facility] Comment on above: Performed By: #### I NFLUAB #### [facility] [address] [place] [address] Dr. Roscoe Segal MCV (RBC) [Entitic vol] 98.1 fL Normal 81.0-99.0 [facility] Comment on above: Performed By: #### I NFLUAB #### [facility] [address] [place] [address] Dr. Roscoe Segal MONO # 0.8 103/ul Normal 0.3-0.8 [facility] Comment on above: Performed By: #### I NFLUAB #### [facility] [address] [place] [address] Dr. Roscoe Segal Monocytes/100 WBC (Bld) 8.9 % Normal 1.7-12.0 [facility] Comment on above: Performed By: #### I NFLUAB #### [facility] [address] [address] [address] Roscoe Segal NEUT # 6.0 103/ul Normal 1.4-6.5 [facility] Comment on above: Performed By: #### I NFLUAB #### [facility] [address] [address] [address] Roscoe Segal Neutrophils/100 WBC (Bld) 65.2 % Normal 43.0-75.0 [facility] Comment on above: Performed By: #### I NFLUAB #### [facility] [address] [place] [address] Dr. Roscoe Segal Platelet mean volume (Bld) [Entitic vol] 9.4 fL Critically low 9.5-13.5 [facility] Comment on above: Performed By: #### I NFLUAB #### [facility] [address] [place] [address] Dr. Roscoe Segal PLT 332 103/ul Normal 150-450 [facility] Comment on above: Performed By: #### I NFLUAB #### [facility] [address] [place] [address] Dr. Roscoe Segal RBC 4.19 106/ul Critically low 4.20-5.40 [facility] Comment on above: Performed By: #### I NFLUAB #### [facility] [address] [place] [address] Dr. Roscoe Segal WBC 9.2 103/ul Normal 4.0-11.0 [facility] Comment on above: Performed By: #### I NFLUAB #### [facility] [address] [place] [address] Dr. Roscoe Segal GLYCOHEMOGLOBIN A1Con 2021 ADA RECOMMENDATION SEE BELOW Normal [facility] Comment on above: Result Comment: ADA RECOMMENDED LIMIT 4.0 - 6.0 ADA THERAPEUTIC TARGET < 7.0 ACTION SUGGESTED > 7.0 Performed By: #### C BC #### [facility] [address] [place], [place] [address] Dr. Roscoe Segal Glucose [Mass/Vol] 217 mg/dL Normal [facility] Comment on above: Performed By: #### C BC #### [facility] [address] [id number] Roscoe Segal HbA1c (Bld) [Mass fraction] 9.2 % Critically high 4.5-6.2 [facility] Comment on above: Performed By: #### C BC #### [facility] [address] [place] [address] Dr. Roscoe Segal LIPID PROFILEon 12-24-2021 CHOL-HDL RATIO NORM SEE BELOW [facility] Comment on above: Result Comment: 3.3 - 4.4 LOW RISK 4.4 - 7.1 AVERAGE RISK 7.1 - 11.0 MODERATE RISK >11.0 HIGH RISK Performed By: #### C BC #### [facility] [address] [place] [address] Dr. Roscoe Segal Cholesterol [Mass/Vol] 191 mg/dL Normal <=200 Th [facility] Comment on above: Performed By: #### C BC #### [facility] [address] [place] [address] Dr. Roscoe Segal Cholesterol in HDL [Mass/Vol] 52 mg/dL Normal 40-60 [facility] Comment on above: Performed By: #### C BC #### [facility] [address] [place] [address] Dr. Roscoe Segal Cholesterol in LDL [Mass/Vol] 95.6 mg/dL Normal [facility] Comment on above: Performed By: #### C BC #### [facility] [address] [address] [address] Roscoe Segal Cholesterol.total/Chol esterol in HDL [Mass ratio] 3.7 {ratio} Normal [facility] Comment on above: Performed By: #### C BC #### [facility] [address] [place] [address] Dr. Roscoe Segal HDL NORMAL > or = 60 mg/dl - LO W CARDIOVASCULAR RISK <40 mg/dl - HIGH CARDIOVASCULAR RISK Normal [facility] Comment on above: Performed By: #### C BC #### [facility] [address] [address] [address] Roscoe Segal LDL CALC NORMAL SEE BELOW Normal [facility] Comment on above: Result Comment: <100 mg/dl OPTIMAL 100 - 129 mg/dl NEAR OR ABOVE OPTIMAL 130 - 159 mg/dl BORDERLINE HIGH 160 - 189 mg/dl HIGH >190 mg/dl VERY HIGH Performed By: #### C BC #### [facility] [address] [address] [address] Roscoe Segal Triglyceride [Mass/Vol] 217 mg/dL Critically high <=150 [facility] Comment on above: Performed By: #### C BC #### [facility] [address] [place] [address] Dr. Roscoe Segal VLDL CALC 43.4 mg/dL Normal [facility] Comment on above: Performed By: #### C BC #### [facility] [address] [place] [address] Dr. Roscoe Segal MICROALBUMIN, RAND URon 12-14 mALB <1.3 Normal <=30.0 [facility] Comment on above: Performed By: #### P OCGLUC #### [facility] [address] [place] [address] Dr. Roscoe Segal PROF 14(COMP METB)on 022 Albumin [Mass/Vol] 3.0 g/dL Critically low 3.4-5.0 [facility] Comment on above: Performed By: #### C BC #### [facility] [address] [place] [address] Dr. Roscoe Segal Albumin/Globulin [Mass ratio] 0.9 {ratio} Normal [facility] Comment on above: Performed By: #### C BC #### [facility] [address] [place] [address] Dr. Roscoe Segal ALP [Catalytic activity/Vol] 72 U/L Normal 46-116 [facility] Comment on above: Performed By: #### C BC #### [facility] [address] [place] [address] Dr. Roscoe Segal ALT [Catalytic activity/Vol] 17 U/L Normal 14-59 [facility] Comment on above: Performed By: #### C BC #### [facility] [address] [address] [address] Roscoe Segal Anion gap [Moles/Vol] 12.3 mmol/L Normal Th [facility] Comment on above: Performed By: #### C BC #### [facility] [address] [address] [address] Roscoe Segal AST [Catalytic activity/Vol] 15 U/L Normal 15-37 [facility] Comment on above: Performed By: #### C BC #### [facility] [address] [place] [address] Dr. Roscoe Segal Bilirubin [Mass/Vol] 0.1 mg/dL Critically low 0.2-1.0 [facility] Comment on above: Performed By: #### C BC #### [facility] [address] [place] [address] Dr. Roscoe Segal Calcium [Mass/Vol] 8.9 mg/dL Normal 8.5-10.1 [facility] Comment on above: Performed By: #### C BC #### [facility] [address] [place] [address] Dr. Roscoe Segal Chloride [Moles/Vol] 102 mmol/L Normal 98-107 [facility] Comment on above: Performed By: #### C BC #### [facility] [address] [place] [address] Dr. Roscoe Segal CO2 [Moles/Vol] 24.0 mmol/L Normal 21.0-32.0 [facility] Comment on above: Performed By: #### C BC #### [facility] [address] [place] [address] Dr. Roscoe Segal Creatinine [Mass/Vol] 0.91 mg/dL Normal 0.55-1.02 [facility] Comment on above: Performed By: #### C BC #### [facility] [address] [place] [address] Dr. Roscoe Segal EGFR-AF NEPALESE >60 Normal >=60 [facility] Comment on above: Performed By: #### C BC #### [facility] [address] [address] [address] Roscoe Segal EGFR-NON AF NEPALESE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 (Auto) [place] % (Auto) Eos % (Auto) Baso % (Auto) Nucleat RBC Rel Count Neut # (Auto) Lymph # (Auto) [place] # (Auto) Eos # (Auto) Baso # [...] MPV Neut % (Auto) Lymph % (Auto) [place] % (Auto) Eos % (Auto) Baso % (Auto) Nucleat RBC Rel Count Neut # (Auto) Lymph # (Auto) [place] # (Auto) Eos # (Auto) Baso # [...] % (Auto) 73.7 Lymph % (Auto) 13.5 [place] % (Auto) 9.2 Eos % (Auto) 2.9 Baso % (Auto) 0.7 Nucleat RBC Rel Count 0.1 Neut # (Auto) 7.2 Lymph # (Auto) 1.3 [place] # (Auto) 0.9 H Eos # (Auto) [...] MPV Neut % (Auto) Lymph % (Auto) [place] % (Auto) Eos % (Auto) Baso % (Auto) Nucleat RBC Rel Count Neut # (Auto) Lymph # (Auto) [place] # (Auto) Eos # (Auto) Baso # [...] signed by Valeriano Horta MD> 03/12/23 0908 [facility] Work Phone: 1(693) 507-764007-28-2023 Progress note Author Eron Wood [facility] March 12, 2023 9:03am Note Date/Time March 12, 2023 9:03 am [facility] [address] [place] [address] Hospitalist Progress Note Signed Patient: Christiane Perez MR#: [id number] : 1975 Acct:[id number] Age/Sex: 48 / F Adm Date: 3 Loc: Room: [address] [place] [address] Type: ADM IN Attending Dr: Eron Wood [...] Insuln.Pen SUBCUT 03/09/24 16:59 Not Given TID.WM.HS [facility] Protocol Insulin Glargine 10 units 03/12/23 21:00 [...] Appreciate pulmonary and thoracic surgery. Continue morphine, [place] as needed for pain. (2) Pneumonia: Plan: [...] signed by Eron Wood MD> 03/12/23 0903 [facility] Work Phone: 1(166) 772-572807-27-2023 [facility] Consult note Author Errol Nicole [facility] March 11, 2023 12:00pm Note Date/Time March 11, 2023 12:0 0pm [facility] [address] [place] [address] Pulmonology Consult Note Signed Patient: Christiane Perez MR#: [id number] : 1975 Acct:[id number] Age/Sex: 48 / F Adm Date: 3 Loc: Room: [address] [place] [address] Type: ADM IN Attending Dr: Eron Wood MD Copies to: MD Eron Pascal MD Shaikh Fawwad, MD~ HPI Date/Time of Consultation: Date of Service: 03/11/2023 Time of Service: 11:56 Consulting Provider: Errol Nicole Requesting Provider: Eron Wodo History of Present Illness History of present illness: Ms. Perez is a 48 year old female with significant active smoking history who presented to the hospital with progressive left-sided chest pain, had a chest x- ray, then a CT, done at [facility] and was told that she had an abscess in the left lung . She refused to be admitted, went home on Levaquin and clindamycin, followed up with her primary care physician who advised her to come back and be admitted here at [facility]. Patient has a large dense consolidated mass [...] mcg-glycopyr 9 mcg-formot 4.8 mcg/actuation HFA inhaler ([employer] Infopoint[employer]tri Kingsoftphere) 1 puff inhalation DAILY 03/10/23 [History Confirmed [...] signed by Errol Nicole MD> 03/11/23 1200 [facility] Work Phone: 1(615) 682-420607-27-2023 Progress note Author Eron Wood [facility] March 11, 2023 10:50am Note Date/Time March 11, 2023 10:4 9am [facility] [address] [place] [address] Hospitalist Progress Note Signed Patient: Christiane Perez MR#: [id number] : 1975 Acct:[id number] Age/Sex: 48 / F Adm Date: 3 Loc: Room: [address] [place] [address] Type: ADM IN Attending Dr: Eron Wood [...] 1,000 Ml IV 03/09/24 16:44 75 mls/hr .[id number] ROGELIO Administration Magnesium Sulfate 2 gm in [...] Insuln.Pen SUBCUT 03/09/24 16:59 Not Given TID.WM.HS [facility] Protocol Insulin Glargine 20 units 03/10/23 21:00 [...] and thoracic surgery. Sendsputum culture. Continue morphine, [place] as needed for pain. Stop IV fluid [...] signed by Eron Wood MD> 03/11/23 1050 [facility] Work Phone: [phone] 481-371807-26-2023 History and physical note Author Eron Wood [facility] March 10, 2023 4:48pm Note Date/Time March 10, 2023 4:49 pm [facility] [address] [place] [address] Hospitalist H&P Signed Patient: Christiane Perez MR#: [id number] : 1975 Acct:[id number] Age/Sex: 48 / F Adm Date: 3 Loc: Room: [address] [place] [address] Type: ADM IN Attending Dr: Eron Wood [...] negative unless noted below or in HPI [facility] Medical History (Updated 03/10/23 @ 16:46 by [...] 9 mcg-formot 4.8 mcg/actuation HFA inhaler (Breztri Kingsoftphere) 1 puff inhalation DAILY 03/10/23 [History Confirmed [...] % (Auto) 5.7 % (.) 03/10/23 12:55 [place] % (Auto) 7.2 % (.) 03/10/23 12:55 Eos % (Auto) 1.1 % (.) 03/10/23 12:55 Baso % (Auto) 0.2 % (.) 03/10/23 12:55 Nucleat RBC Rel Count 0.1 /100 WBC (0-0.5) 03/10/23 12:55 Neut # (Auto) 14.2 x10E3/uL (1.8-7.7) H 03/10/23 12:55 Lymph # (Auto) 1.0 x10E3/uL (1.00-4.8) 03/10/23 12:55 [place] # (Auto) 1.2 x10E3/uL (0.0-0.8) H 03/10/23 [...] <Electronically signed by Eron Wood MD> 03/10/23 5088 [facility] Work Phone: 1([phone]) [phone] Consult note Author Valeriano Horta [facility] March 10, 2023 3:27pm Note Date/Time March 10, 2023 3:27 pm [facility] [address] [place] [address] Cardiothoracic Consult Note Signed Patient: Christiane Perez MR#: [id number] : 1975 Acct:[id number] Age/Sex: 48 / F Adm Date: 3 Loc: ER Room: Type: [facility] ER Attending Dr: Copies to: DO Valeriano Morris MD Shaikh Fawwad, MD~ HPI Consult Date: 03/10/23 Primary Care Provider: Shaikh Anthony MD Consult Narrative Reason for consult: lung abscess HPI: Ms. Perez is a 48 year old female with persistent SOB. CT read as lung abscess with elevated WBC. Pt agreed with admission. Chart and CT reviewed. [facility] Medical History (Updated 03/10/23 @ 15:26 by [...] signed by Valeriano Horta MD> 03/10/23 1527 [facility] Work Phone: 1(358) 481-931507-02-2023 Evaluation note* Encounter Date Diagnosis Assessment Notes [...] evaluation for possible sequelae into bronchitis/pneumoni a. [employer] Other 08-26-2022 NotePROCEDURE: XR HIP RT 2 3V WO PELVIS HISTORY: Pain in right hip joint , chronic COMPARISON: None. FINDINGS: BONES:No fracture, acute abnormality, or significant arthropathy. SOFT TISSUES:No visible soft tissue swelling. EFFUSION:None visible. OTHER: Negative. IMPRESSION: 1. Normal examination. Electronically authenticated by: GERMAINE FARRELL Date: 2022-04-10 08:14[facility] Author Krunal Kelly [facility] March 17, 2023 1:24pm Note Date/Time March 14, 2023 1:54 pm [facility] [address] [place] [address] Discharge Summary Signed Patient: Christiane Perez MR#: [id number] : 1975 Acct:[id number] Age/Sex: 48 / F Adm Date: 3 Loc: Room: [address] [place] [address]: Krunal Kelly DO Copies to: [...] % (Auto) 71.0, Lymph % (Auto) 16.8, [place] % (Auto) 7.1, Eos % (Auto) 4.4, Baso % (Auto) 0.7, Nucleat RBC Rel Count 0.1, Neut # (Auto) 6.8, Lymph # (Auto) 1.6, [place] # (Auto) 0.7, Eos # (Auto) 0.4, [...] signed by Krunal Kelly, DO> 03/17/23 1324 [facility] Work Phone: Evaluation noteNo Assessments Information Available [facility] noteNo assessment information available [facility] noteNo InformationNort Chunk [employer] Other Evaluation note* Diagnosis Onset Date Resolution Status Abscess of left lung with pneumonia acute Abscess of lung acute COPD (chronic obstructive pulmonary disease) acute Diabetes mellitus, type 2 ac three affiliated Lung mass acute Pneumonia acute Tobacco abuse acute [facility] Work Phone: Evaluqpmbn note* Diagnosis Hoarse- Primary Dysphonia Chronic laryngitis [...] parital hysterectomy 2009 Hospitalization History see above [employer] Other Hisymkk general Narrative - Reported* Type Description Date Medical History DIABETIC Medical History BI POLAR Medical History NEUROPATHY IN LEGS Medical History COPD Medical History GENITAL HERPES Medical History high cholesterol Medical History high blood pressure Surgical History Cholecystectomy Surgical History tonsillectomy Surgical History breast reduction 1996 Surgical History parital hysterectomy 2009 Hospitalization History [facility] [place]cess 03/2023 Hospitalization History aspiration pneumonia 201 5 [employer] Other Hisnzkd general Narrative - Reported* Type Description Date Medical History DIABETIC Medical History BI POLAR Medical History NEUROPATHY IN LEGS Medical History COPD Medical History GENITAL HERPES Medical History high cholesterol Medical History high blood pressure Medical History [facility] lung abcess 02/2023 -- [facility] Surgical History Cholecystectomy Surgical History tonsillectomy Surgical History breast reduction 1996 Surgical History parital hysterectomy 2009 Hospitalization History [facility] [place]cess 03/2023 Hospitalization History aspiration pneumonia 201 5 [employer] Other Hospital Discharge instructions Additional Instructions Continue home oxygen per chronic orders.[facility] Work Phone: Hospital Discharge instructions Additional Instructions Steroids daily Use albuterol inhaler as instructed Push fluids Rest Follow with your PCP Avoid smoking Return here if any problems persist [facility] Work Phone: Advance Directives No Advanced [...] Referred Provider Naomi Bernard [place] [address] [place],[address] Referred Provider Specialty Ear, Nose an d [...] DATE CREATED AUTHOR AUTHOR'S ORGANIZ ATION 02/19/2023 [facility] DATE CREATED AUTHOR AUTHOR'S ORGANIZ ATION 03/24/2023 [facility] DATE CREATED AUTHOR AUTHOR'S ORGANIZ ATION 10/02/2023 [facility] DATE CREATED AUTHOR AUTHOR'S ORGANIZ ATION 10/21/2023 [facility] DATE CREATED AUTHOR AUTHOR'S ORGANIZ ATION 01/12/2024 [facility] EPIC REASON FOR VISIT [...] Active Errol Nicole MD Attending Provider Active Department [employer] Relationship Specialty Start Date End Date Shaikh Cruz MD PCP - General Internal Medicine 02/24/23 Department [employer] Relationship Specialty Start Date End Date Shaikh Cruz MD [address] [place] [address] PCP - General Internal Medicine 09/29/23 Department [employer] Relationship Specialty Start Date End Date Shaikh Cruz MD [address] [place] [address] PCP - General Internal Medicine [...] BE BASED ON THE PRIMARY CLINICAL RECORDS. [facility]. provides no warranty or guarantee of the accuracy or completeness of information in this document.
--- NOTE | 2024-03-08 12:15 | ECG_ITS ---
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
[2024-03-08 12:22] LABS: Bilirubin Urine NEGATIVE (NEGATIVE); Blood Urine NEGATIVE (NEGATIVE); Clarity Urine CLEAR (CLEAR); Color Urine LT. YELLOW (YELLOW); Glucose Urine UA NEGATIVE (NEGATIVE); Ketones Urine NEGATIVE (NEGATIVE); Leukocyte Esterase Urine NEGATIVE (NEGATIVE); Nitrite Urine NEGATIVE (NEGATIVE); Protein Urine NEGATIVE (NEG/TRACE); Specific Gravity Urine <=1.005 (1.005-1.025); Urobilinogen Urine 0.2 EU/dL (0.2-1.0); pH Urine 6.5 (5.0-9.0)
[2024-03-08 12:26] LABS: Urine Microscopic Indicated NO
--- NOTE | 2024-03-08 12:37 | ED_ITS ---
HPI HPI - General Adult General Chief complaint: Weakness Stated complaint: GENERAL WEAKNESS Time Seen by Provider: 03/08/24 12:14 Source: patient Mode of arrival: ambulance Limitations: no limitations History of Present Illness HPI narrative: Patient presents ED complaining of generalized weakness. She said she woke up this morning and she had trouble moving her legs and she felt weak all over. She did not check her sugar but she called the squad. Patient states when the Squad arrived her blood sugar was only 50. They did give her some sugar and route and she is already feeling better. She is a type II diabetic. She is alert and oriented in no acute distress. I did get her some apple juice and orange juice here in the ED she is sitting up drinking and feeling much better. No other complaints at this time. She states she does not have any chest pain shortness of breath denies abdominal pain or any other problems at this time. Related Data Home Medications ?Medication ?Instructions ?Recorded ?Confirmed atorvastatin 40 mg tablet 40 mg PO DAILY 03/07/23 03/06/24 budesonide 160 mcg-glycopyr 9 1 inh inhalation BID 03/07/23 03/06/24 mcg-formot 4.8 mcg/actuation HFA inhaler (Breztri Aerosphere) dapagliflozin propanediol 10 mg 10 mg PO DAILY 03/07/23 03/06/24 tablet (Farxiga) gabapentin 800 mg tablet 800 mg PO TID 03/07/23 03/06/24 ibuprofen 800 mg tablet 800 mg PO TID PRN pain 03/07/23 03/06/24 insulin aspart U-100 100 unit/mL 10 unit subcut TIDWM 03/07/23 03/06/24 (3 mL) subcutaneous pen (Novolog FlexPen U-100 Insulin aspart) omeprazole 40 mg capsule,delayed 40 mg PO DAILY 03/07/23 03/06/24 release risperidone 1 mg tablet 1 mg PO BID 03/07/23 03/06/24 tizanidine 4 mg tablet 4 mg PO TID PRN muscle spasticity 03/07/23 03/06/24 insulin glargine 100 unit/mL (3 30 unit subcut QAM 01/18/24 03/06/24 mL) subcutaneous pen (Basaglar KwikPen U-100 Insulin) roflumilast 250 mcg tablet 250 mcg PO DAILY 01/18/24 03/06/24 Previous Rx's ?Medication ?Instructions ?Recorded albuterol sulfate 90 mcg/actuation 2 inh inhalation Q4H PRN shortness 01/25/24 aerosol inhaler of breath or wheezing #8.5 grams lorazepam 1 mg tablet (Ativan) 1 mg PO Q8H PRN anxiety 5 days #15 01/25/24 tabs Allergies Allergy/AdvReac Type Severity Reaction Status Date / Time sumatriptan [From Imitrex] Allergy Severe Hives Verified 03/08/24 11:45 Opioid HPI Opioid Management Most Recent Opioid Data: Last Pain Scale 3 01/26/24 13:46 Review of Systems ROS Status of ROS 10 or more systems reviewed and unremark able except as noted in history and below [facility] Medical History (Updated 03/08/24 @ 13:29 by Carolyne Webb DO) Obesity ?E66.9 - Obesity, unspecified (ICD-10) PEPE (obstructive sleep apnea) ?G47.33 - Obstructive sleep apnea (adult) (pediatric) (ICD-10) DM2 (diabetes mellitus, type 2) ?E11.9 - Type 2 diabetes mellitus without complications (ICD-10) Cigarette nicotine dependence with nicotine-induced disorder ?F17.219 - Nicotine dependence, cigarettes, with unspecified nicotine-induced disorders (ICD-10) Bipolar 2 disorder ?F31.81 - Bipolar II disorder (ICD-10) Acute respiratory failure with hypercapnia ?J96.02 - Acute respiratory failure with hypercapnia (ICD-10) Oral candidiasis ?B37.0 - Candidal stomatitis (ICD-10) SALVADOR (generalized anxiety disorder) ?F41.1 - Generalized anxiety disorder (ICD-10) Hyperchloremia ?E87.8 - Other disorders of electrolyte and fluid balance, not elsewhere classified (ICD-10) Hospital-acquired pneumonia ?J18.9 - Pneumonia, unspecified organism (ICD-10) ?Y95 - Nosocomial condition (ICD-10) Community acquired pneumonia ?J18.9 - Pneumonia, unspecified organism (ICD-10) Acute exacerbation of chronic obstructive pulmonary disease (COPD) ?J44.1 - Chronic obstructive pulmonary disease with (acute) exacerbation (ICD-10) COPD exacerbation ?J44.1 - Chronic obstructive pulmonary disease with (acute) exacerbation (ICD-10) Cavitary pneumonia ?J18.9 - Pneumonia, unspecified organism (ICD-10) ?J98.4 - Other disorders of lung (ICD-10) Acute viral syndrome ?B34.9 - Viral infection, unspecified (ICD-10) Acute chest wall pain ?R07.89 - Other chest pain (ICD-10) Enterovirus infection ?B34.1 - Enterovirus infection, unspecified (ICD-10) Tobacco abuse counseling ?Z71.6 - Tobacco abuse counseling (ICD-10) Contusion of left knee ?S80.02XA - Contusion of left knee, initial encounter (ICD-10) Acute hypokalemia ?E87.6 - Hypokalemia (ICD-10) Vasovagal syncope ?R55 - Syncope and collapse (ICD-10) Acute and chronic respiratory failure with hypercapnia ?J96.22 - Acute and chronic respiratory failure with hypercapnia (ICD-10) Respiratory failure ?J96.90 - Respiratory failure, unspecified, unspecified whether with hypoxia or hypercapnia (ICD-10) Smoker ?F17.200 - Nicotine dependence, unspecified, uncomplicated (ICD-10) HLD (hyperlipidemia) ?E78.5 - Hyperlipidemia, unspecified (ICD-10) HTN (hypertension) ?I10 - Essential (primary) hypertension (ICD-10) Social History Smoking status: Current every day smoker Exam Narrative Exam Narrative: General: alert, no acute distress Cardiovascular: regular rate and rhythm, normal peripheral perfusion. Respiratory: Lungs CTA, respirations non labored. Extremities: no deformity, no trauma. Neurological: oriented x 4, LOC appropriate for age. Constitutional Vital Signs, click to edit/add: Last Vital Signs Temp 97.6 F 03/08/24 11:49 Pulse 74 03/08/24 11:49 Resp 18 03/08/24 11:49 BP 176/103 H 03/08/24 11:49 Pulse Ox 99 03/08/24 11:49 O2 Del Method Room Air 03/08/24 11:49 Course Vital Signs Vital signs: Vital Signs Temperature 97.6 F 03/08/24 11:49 Pulse Rate 74 03/08/24 11:49 Respiratory Rate 18 03/08/24 11:49 Blood Pressure 176/103 H 03/08/24 11:49 Pulse Oximetry 99 03/08/24 11:49 Oxygen Delivery Method Room Air 03/08/24 11:49 Temperature 97.6 F 03/08/24 11:49 Pulse Rate 74 03/08/24 11:49 Respiratory Rate 18 03/08/24 11:49 Blood Pressure 176/103 H 03/08/24 11:49 Pulse Oximetry 99 03/08/24 11:49 Oxygen Delivery Method Room Air 03/08/24 11:49 Medical Decision Making MDM Narrative Medical decision making narrative: Patient is feeling better after drinking juice. She is sitting up resting comfortably in the bed. Patient's labs are nonacute. Most likely hypoglycemia that has now resolved. She states she feels back to normal. Return to ED if worsening symptoms, follow-up with family doctor. Differential Diagnosis Differential Diagnosis: Hypoglycemia, infection, electrolyte abnormality, COVID Medical Records Medical records reviewed: Yes I reviewed the patient's medical records Lab Data Lab results reviewed: Yes I reviewed the patient's lab results Labs: Lab Results 03/08/24 03/08/24 03/08/24 Range/Units 11:55 12:40 12:48 WBC 6.8 (4.0-11.0) 10^3/uL RBC 3.95 L (4.20-5.40) 10^6/uL Hgb 12.7 (12.0-16.0) g/dL Hct 39.2 (36.0-48.0) % MCV 99.2 H (81.0-99.0) fL MCH 32.2 (26.7-34.0) pg MCHC 32.4 (29.9-35.2) g/dL RDW 13.8 (11.0-15.0) % Plt Count 280 (150-450) 10^3/uL MPV 8.9 L (9.5-13.5) fL Neut % (Auto) 79.1 H (43.0-75.0) % Lymph % (Auto) 14.3 L (20.5-60.0) % [place] % (Auto) 5.2 (1.7-12.0) % Eos % (Auto) 0.1 L (0.9-7.0) % Baso % (Auto) 0.4 (0.2-2.0) % Neut # (Auto) 5.4 (1.4-6.5) 10^3/uL Lymph # (Auto) 1.0 L (1.2-3.8) 10^3/uL [place] # (Auto) 0.4 (0.3-0.8) 10^3/uL Eos # (Auto) 0.0 (0.0-0.7) 10^3/uL Baso # (Auto) 0.0 (0.0-0.1) 10^3/uL Abs Immat Gran (auto) 0.06 H (0.00-0.03) 10^3/uL Imm/Tot Granulo (auto) 0.9 H (0.0-0.5) % Sodium 143 (136-145) mmol/L Potassium 4.1 (3.5-5.1) mmol/L Chloride 108 H (98-107) mmol/L Carbon Dioxide 24.1 (21.0-32.0) mmol/L Anion Gap 15.0 BUN 3.0 L (7.0-18.0) mg/dL Creatinine 0.98 (0.55-1.02) mg/dL Est GFR ( Amer) >60 (>=60) Est GFR (Non-Af Amer) >60 (>=60) BUN/Creatinine Ratio 3.1 Glucose 186 H (74-106) mg/dL Calcium 8.5 (8.5-10.1) mg/dL Total Bilirubin 0.2 (0.2-1.0) mg/dL AST 17 (15-37) U/L ALT 18 (14-59) U/L Alkaline Phosphatase 74 (46-116) U/L Troponin I High Sens 6.9 (4.0-51.3) pg/mL Total Protein 5.5 L (6.4-8.2) g/dL Albumin 2.2 L (3.4-5.0) g/dL Globulin 3.3 g/dL Albumin/Globulin Ratio 0.7 Urine Color Lt. yellow (YELLOW) Urine Clarity Clear (CLEAR) Urine pH 6.5 (5.0-9.0) Ur Specific [place] <=1.005 A (1.005-1.025) Urine Protein Negative (NEG/TRACE) mg/dL Urine Glucose (UA) Negative (NEGATIVE) mg/dL Urine Ketones Negative (NEGATIVE) mg/dL Urine Occult Blood Negative (NEGATIVE) Urine Nitrite Negative (NEGATIVE) Urine Bilirubin Negative (NEGATIVE) Urine Urobilinogen 0.2 (0.2-1.0) EU/dL Ur Leukocyte Esterase Negative (NEGATIVE) SARS-CoV-2 Ag (CV2AG) Negative (NEGATIVE) ECG Data Interpretation: EKG INTERPRETATION Time: []1237 Rate: []70 Rhythm: _ []Normal sinus rhythm ST segments: _ []No acute ST elevation or depression T waves: _ [] Ectopy: _ [] P wave/NH interval: _ [] QRS interval: _ [] QT interval: _ [] Comparison: _ [] Comparison EKG date: [] Performed by: [self] Discharge Plan Discharge Stand Alone Forms: Portal Instructions Chief Complaint: Weakness Clinical Impression: Hypoglycemia Patient Disposition: Home, Self-Care Time of Disposition Decision: 13:29 Mode of Transportation: Private Vehicle Prescriptions / Home Meds: No Action atorvastatin 40 mg tablet 40 mg PO DAILY Breztri Aerosphere 160-9-4.8 mcg/actuation HFA aerosol inhaler 1 inh INHALATION BID dapagliflozin propanediol [Farxiga] 10 mg tablet 10 mg PO DAILY gabapentin 800 mg tablet 800 mg PO TID ibuprofen 800 mg tablet 800 mg PO TID PRN (Reason: pain) insulin aspart U-100 [Novolog FlexPen U-100 Insulin] 100 unit/mL (3 mL) insulin pen 10 unit SUBCUT TIDWM Patient Comments: with sliding scale, max 50 units daily omeprazole 40 mg capsule,delayed release(DR/EC) 40 mg PO DAILY risperidone 1 mg tablet 1 mg PO BID tizanidine 4 mg tablet 4 mg PO TID PRN (Reason: muscle spasticity) roflumilast 250 mcg tablet 250 mcg PO DAILY insulin glargine [Basaglar KwikPen U-100 Insulin] 100 unit/mL (3 mL) insulin pen 30 unit SUBCUT QAM albuterol sulfate 90 mcg/actuation HFA aerosol inhaler 2 inh inhalation Q4H PRN (Reason: shortness of breath or wheezing) Qty: 8.5 0RF lorazepam [Ativan] 1 mg tablet 1 mg PO Q8H PRN (Reason: anxiety) 5 Days Qty: 15 0RF Print Language: Honduran Instructions: Hypoglycemia in a Person with Diabetes (ED) Referrals: Shaikh Cruz MD [Primary Care Provider] - 1 week Discharge Date/Time: 03/08/24 13:55
[2024-03-08 12:58] LABS: Basophils Percent Auto 0.4 % (0.2-2.0); Eosinophils Percent Auto 0.1 % (0.9-7.0); Hematocrit 39.2 % (36.0-48.0); Hemoglobin 12.7 g/dL (12.0-16.0); Immature Granulocytes Abs Auto 0.06 10^3/uL (0.00-0.03); Immature Granulocytes Pct Auto 0.9 % (0.0-0.5); Lymphocytes Percent Auto 14.3 % (20.5-60.0); Mean Corpuscular HGB Conc 32.4 g/dL (29.9-35.2); Mean Corpuscular Hemoglobin 32.2 pg (26.7-34.0); Mean Corpuscular Volume 99.2 fL (81.0-99.0); Mean Platelet Volume 8.9 fL (9.5-13.5); Monocytes Absolute Auto 0.4 10^3/uL (0.3-0.8); Monocytes Percent Auto 5.2 % (1.7-12.0); Neutrophils Absolute Auto 5.4 10^3/uL (1.4-6.5); Neutrophils Percent Auto 79.1 % (43.0-75.0); Platelet Count 280 10^3/uL (150-450); Red Blood Count 3.95 10^6/uL (4.20-5.40); Red Cell Distribution Width 13.8 % (11.0-15.0); White Blood Count 6.8 10^3/uL (4.0-11.0)
[2024-03-08 13:08] LABS: Internal Control Within Normal Limits; SARS-CoV-2 Ag NEGATIVE (NEGATIVE)
[2024-03-08 13:17] LABS: Carbon Dioxide 24.1 mmol/L (21.0-32.0); Chloride 108 mmol/L (98-107); Estimated GFR (African America >60 (>=60); Glucose 186 mg/dL (74-106); Potassium 4.1 mmol/L (3.5-5.1); Sodium 143 mmol/L (136-145)
[2024-03-08 13:18] LABS: Alanine Aminotransferase 18 U/L (14-59); Albumin Globulin Ratio 0.7; Albumin Level 2.2 g/dL (3.4-5.0); Alkaline Phosphatase 74 U/L (46-116); Aspartate Amino Transferase 17 U/L (15-37); BUN Creatinine Ratio 3.1; Bilirubin Total 0.2 mg/dL (0.2-1.0); Calcium 8.5 mg/dL (8.5-10.1); Estimated GFR (Non-African Ame >60 (>=60); Globulin 3.3 g/dL; Total Protein 5.5 g/dL (6.4-8.2); Troponin I High Sensitivity 6.9 pg/mL (4.0-51.3)
== END 2024-03-08 13:55 | disposition home or self-care (01) ==
PROVIDERS: Emergency Provider Emergency Medicine; PCP Internal Medicine
DX: E11.649 Type 2 diabetes mellitus with hypoglycemia without coma (principal); Z79.4 Long term (current) use of insulin; F17.200 Nicotine dependence, unspecified, uncomplicated; Z20.822 Contact with and (suspected) exposure to COVID-19
CPT/HCPCS: 36415; 80053; 81003; 84484; 85025; 87811; 93005; 99284

== ENCOUNTER 2024-03-11 13:38 | Emergency (ER) | payer MEDICARE, MEDICAID, SELFPAY ==
[2024-03-11 13:39] VITALS: PULSE 109; TEMP 36.6; O2SAT 97; BMI 31.9
--- NOTE | 2024-03-11 13:39 | ECG_ITS ---
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
--- NOTE | 2024-03-11 13:40 | ED_ITS ---
HPI HPI - General Adult General Chief complaint: Syncope Stated complaint: UNRESPONSIVE Time Seen by Provider: 03/11/24 13:39 History of Present Illness HPI narrative: 49-year-old female presents for being unresponsive. She was at home and had not eaten much at all in the last 12 to 15 hours. She states she had some pretzels last night and then a swim gym this morning about 2 AM. Otherwise she has not eaten since about 5:00 last night. She was unresponsive for the paramedics and they gave her glucagon and D10 and now she is awake and talking and fully alert. She states her blood sugar dropped because she did not eat. She has had no fever or vomiting and she has no physical complaints now. Related Data Home Medications ?Medication ?Instructions ?Recorded ?Confirmed atorvastatin 40 mg tablet 40 mg PO DAILY 03/07/23 03/06/24 budesonide 160 mcg-glycopyr 9 1 inh inhalation BID 03/07/23 03/06/24 mcg-formot 4.8 mcg/actuation HFA inhaler (Breztri Aerosphere) dapagliflozin propanediol 10 mg 10 mg PO DAILY 03/07/23 03/06/24 tablet (Farxiga) gabapentin 800 mg tablet 800 mg PO TID 03/07/23 03/06/24 ibuprofen 800 mg tablet 800 mg PO TID PRN pain 03/07/23 03/06/24 insulin aspart U-100 100 unit/mL 10 unit subcut TIDWM 03/07/23 03/06/24 (3 mL) subcutaneous pen (Novolog FlexPen U-100 Insulin aspart) omeprazole 40 mg capsule,delayed 40 mg PO DAILY 03/07/23 03/06/24 release risperidone 1 mg tablet 1 mg PO BID 03/07/23 03/06/24 tizanidine 4 mg tablet 4 mg PO TID PRN muscle spasticity 03/07/23 03/06/24 insulin glargine 100 unit/mL (3 30 unit subcut QAM 01/18/24 03/06/24 mL) subcutaneous pen (Basaglar KwikPen U-100 Insulin) roflumilast 250 mcg tablet 250 mcg PO DAILY 01/18/24 03/06/24 Previous Rx's ?Medication ?Instructions ?Recorded albuterol sulfate 90 mcg/actuation 2 inh inhalation Q4H PRN shortness 01/25/24 aerosol inhaler of breath or wheezing #8.5 grams lorazepam 1 mg tablet (Ativan) 1 mg PO Q8H PRN anxiety 5 days #15 01/25/24 tabs Allergies Allergy/AdvReac Type Severity Reaction Status Date / Time sumatriptan [From Imitrex] Allergy Severe Hives Verified 03/08/24 11:45 Opioid HPI Opioid Management Most Recent Opioid Data: Last Pain Scale 3 01/26/24 13:46 Review of Systems ROS Narrative A ten point review of systems is negative except as noted above. [facility] Medical History (Updated 03/11/24 @ 14:52 by Obdulio Savage MD) Obesity ?E66.9 - Obesity, unspecified (ICD-10) PEPE (obstructive sleep apnea) ?G47.33 - Obstructive sleep apnea (adult) (pediatric) (ICD-10) DM2 (diabetes mellitus, type 2) ?E11.9 - Type 2 diabetes mellitus without complications (ICD-10) Cigarette nicotine dependence with nicotine-induced disorder ?F17.219 - Nicotine dependence, cigarettes, with unspecified nicotine-induced disorders (ICD-10) Bipolar 2 disorder ?F31.81 - Bipolar II disorder (ICD-10) Acute respiratory failure with hypercapnia ?J96.02 - Acute respiratory failure with hypercapnia (ICD-10) Oral candidiasis ?B37.0 - Candidal stomatitis (ICD-10) SALVADOR (generalized anxiety disorder) ?F41.1 - Generalized anxiety disorder (ICD-10) Hyperchloremia ?E87.8 - Other disorders of electrolyte and fluid balance, not elsewhere classified (ICD-10) Hospital-acquired pneumonia ?J18.9 - Pneumonia, unspecified organism (ICD-10) ?Y95 - Nosocomial condition (ICD-10) Community acquired pneumonia ?J18.9 - Pneumonia, unspecified organism (ICD-10) Acute exacerbation of chronic obstructive pulmonary disease (COPD) ?J44.1 - Chronic obstructive pulmonary disease with (acute) exacerbation (ICD-10) COPD exacerbation ?J44.1 - Chronic obstructive pulmonary disease with (acute) exacerbation (ICD-10) Cavitary pneumonia ?J18.9 - Pneumonia, unspecified organism (ICD-10) ?J98.4 - Other disorders of lung (ICD-10) Acute viral syndrome ?B34.9 - Viral infection, unspecified (ICD-10) Acute chest wall pain ?R07.89 - Other chest pain (ICD-10) Enterovirus infection ?B34.1 - Enterovirus infection, unspecified (ICD-10) Tobacco abuse counseling ?Z71.6 - Tobacco abuse counseling (ICD-10) Contusion of left knee ?S80.02XA - Contusion of left knee, initial encounter (ICD-10) Acute hypokalemia ?E87.6 - Hypokalemia (ICD-10) Vasovagal syncope ?R55 - Syncope and collapse (ICD-10) Acute and chronic respiratory failure with hypercapnia ?J96.22 - Acute and chronic respiratory failure with hypercapnia (ICD-10) Respiratory failure ?J96.90 - Respiratory failure, unspecified, unspecified whether with hypoxia or hypercapnia (ICD-10) Smoker ?F17.200 - Nicotine dependence, unspecified, uncomplicated (ICD-10) HLD (hyperlipidemia) ?E78.5 - Hyperlipidemia, unspecified (ICD-10) HTN (hypertension) ?I10 - Essential (primary) hypertension (ICD-10) Social History Smoking status: Current every day smoker Exam Narrative Exam Narrative: Nurses note and vital signs reviewed and patient is not hypoxic. General: The patient appears disheveled and in no apparent distress. Patient is resting comfortably on cart. Skin: Warm, dry, no pallor noted. There is no rash noted. Head: Normocephalic, atraumatic Eye: Normal conjunctiva, no drainage, EOMI. PERRL Ears, Nose, Mouth, and Throat: oral mucosa is moist. Nares patent. Cardiovascular: Regular Rate and Rhythm, tachycardic Respiratory: Patient is in no distress, no accessory muscle use, lungs are clear to auscultation, no wheezing, rales or rhonchi GI: Soft and Musculoskeletal: She has some old bruises and abrasions on her legs, particularly at the right knee. The right knee is nontender and has good range of motion Neurological: A&O x4 Psychiatric: Cooperative Constitutional Vital Signs, click to edit/add: Last Vital Signs Temp 97.9 F 03/11/24 13:39 Pulse 102 H 03/11/24 14:43 Resp 18 03/11/24 14:43 BP 146/88 H 03/11/24 14:43 Pulse Ox 96 03/11/24 14:43 O2 Del Method Room Air 03/11/24 14:43 Course Vital Signs Vital signs: Vital Signs Temperature 97.9 F 03/11/24 13:39 Pulse Rate 109 H 03/11/24 13:39 Respiratory Rate 22 H 03/11/24 13:39 Pulse Oximetry 97 03/11/24 13:39 Oxygen Delivery Method Room Air 03/11/24 13:39 Temperature 97.9 F 03/11/24 13:39 Pulse Rate 102 H 03/11/24 14:43 Respiratory Rate 18 03/11/24 14:43 Blood Pressure 146/88 H 03/11/24 14:43 Pulse Oximetry 96 03/11/24 14:43 Oxygen Delivery Method Room Air 03/11/24 14:43 Medical Decision Making MDM Narrative Medical decision making narrative: Blood work is normal. She was given a meal and her blood sugar has normalized. She is awake alert and sitting upright and talking. Her family is here and matters were discussed with them as well and she is able to be discharged home. Treatment diagnosis and follow-up were discussed thoroughly. Differential Diagnosis Differential Diagnosis: Hypoglycemia, noncompliance Lab Data Lab results reviewed: Yes I reviewed the patient's lab results Labs: Lab Results 03/11/24 03/11/24 03/11/24 Range/Units 13:42 14:06 14:10 WBC 9.7 (4.0-11.0) 10^3/uL RBC 5.01 (4.20-5.40) 10^6/uL Hgb 15.7 (12.0-16.0) g/dL Hct 48.9 H (36.0-48.0) % MCV 97.6 (81.0-99.0) fL MCH 31.3 (26.7-34.0) pg MCHC 32.1 (29.9-35.2) g/dL RDW 13.7 (11.0-15.0) % Plt Count 379 (150-450) 10^3/uL MPV 8.6 L (9.5-13.5) fL Neut % (Auto) 79.1 H (43.0-75.0) % Lymph % (Auto) 13.7 L (20.5-60.0) % [place] % (Auto) 5.8 (1.7-12.0) % Eos % (Auto) 0.2 L (0.9-7.0) % Baso % (Auto) 0.7 (0.2-2.0) % Neut # (Auto) 7.6 H (1.4-6.5) 10^3/uL Lymph # (Auto) 1.3 (1.2-3.8) 10^3/uL [place] # (Auto) 0.6 (0.3-0.8) 10^3/uL Eos # (Auto) 0.0 (0.0-0.7) 10^3/uL Baso # (Auto) 0.1 (0.0-0.1) 10^3/uL Abs Immat Gran (auto) 0.05 H (0.00-0.03) 10^3/uL Imm/Tot Granulo (auto) 0.5 (0.0-0.5) % Sodium 143 (136-145) mmol/L Potassium 4.2 (3.5-5.1) mmol/L Chloride 105 (98-107) mmol/L Carbon Dioxide 29.3 (21.0-32.0) mmol/L Anion Gap 12.9 BUN 5.0 L (7.0-18.0) mg/dL Creatinine 0.96 (0.55-1.02) mg/dL Est GFR ( Amer) >60 (>=60) Est GFR (Non-Af Amer) >60 (>=60) BUN/Creatinine Ratio 5.2 Glucose 127 H (74-106) mg/dL Calcium 8.8 (8.5-10.1) mg/dL Urine Color Lt. yellow (YELLOW) Urine Clarity Clear (CLEAR) Urine pH 7.0 (5.0-9.0) Ur Specific [place] 1.010 (1.005-1.025) Urine Protein Negative (NEG/TRACE) mg/dL Urine Glucose (UA) >=1000 A (NEGATIVE) mg/dL Urine Ketones Negative (NEGATIVE) mg/dL Urine Occult Blood Negative (NEGATIVE) Urine Nitrite Negative (NEGATIVE) Urine Bilirubin Negative (NEGATIVE) Urine Urobilinogen 0.2 (0.2-1.0) EU/dL Ur Leukocyte Esterase Negative (NEGATIVE) Urine RBC None seen (0-2) #/HPF Urine WBC None seen (NONE SEEN) #/HPF Ur Squamous Epith Cells Few A (NONE/RARE) #/LPF Urine Crystals None seen (None Seen) #/HPF Urine Bacteria Trace A (NONE SEEN) #/HPF Urine Casts None seen (NONE SEEN) #/LPF Urine Mucus Trace A (NONE SEEN) Ur Culture Indicated? No POC Glucose 226 H (74-106) mg/dL ECG Data Attestation: I personally reviewed and interpreted this ECG as follows: (EKG on my interpretation shows normal sinus rhythm without acute change and a rate of 105) Discharge Plan Discharge Stand Alone Forms: Portal Instructions Chief Complaint: Syncope Clinical Impression: Hypoglycemia Patient Disposition: Home, Self-Care Time of Disposition Decision: 14:52 Condition: Good Mode of Transportation: Private Vehicle Prescriptions / Home Meds: No Action atorvastatin 40 mg tablet 40 mg PO DAILY Breztri Aerosphere 160-9-4.8 mcg/actuation HFA aerosol inhaler 1 inh INHALATION BID dapagliflozin propanediol [Farxiga] 10 mg tablet 10 mg PO DAILY gabapentin 800 mg tablet 800 mg PO TID ibuprofen 800 mg tablet 800 mg PO TID PRN (Reason: pain) insulin aspart U-100 [Novolog FlexPen U-100 Insulin] 100 unit/mL (3 mL) insulin pen 10 unit SUBCUT TIDWM Patient Comments: with sliding scale, max 50 units daily omeprazole 40 mg capsule,delayed release(DR/EC) 40 mg PO DAILY risperidone 1 mg tablet 1 mg PO BID tizanidine 4 mg tablet 4 mg PO TID PRN (Reason: muscle spasticity) roflumilast 250 mcg tablet 250 mcg PO DAILY insulin glargine [Basaglar KwikPen U-100 Insulin] 100 unit/mL (3 mL) insulin pen 30 unit SUBCUT QAM albuterol sulfate 90 mcg/actuation HFA aerosol inhaler 2 inh inhalation Q4H PRN (Reason: shortness of breath or wheezing) Qty: 8.5 0RF lorazepam [Ativan] 1 mg tablet 1 mg PO Q8H PRN (Reason: anxiety) 5 Days Qty: 15 0RF Print Language: Indonesian Instructions: Hypoglycemia in a Person with Diabetes (ED) Referrals: Shaikh Cruz MD [Primary Care Provider] - 1 week
[2024-03-11 13:41] VITALS: O2SAT 97
[2024-03-11 13:48] LABS: Basophils Absolute Auto 0.1 10^3/uL (0.0-0.1); Basophils Percent Auto 0.7 % (0.2-2.0); Eosinophils Percent Auto 0.2 % (0.9-7.0); Hematocrit 48.9 % (36.0-48.0); Hemoglobin 15.7 g/dL (12.0-16.0); Immature Granulocytes Abs Auto 0.05 10^3/uL (0.00-0.03); Immature Granulocytes Pct Auto 0.5 % (0.0-0.5); Lymphocytes Absolute Auto 1.3 10^3/uL (1.2-3.8); Lymphocytes Percent Auto 13.7 % (20.5-60.0); Mean Corpuscular HGB Conc 32.1 g/dL (29.9-35.2); Mean Corpuscular Hemoglobin 31.3 pg (26.7-34.0); Mean Corpuscular Volume 97.6 fL (81.0-99.0); Mean Platelet Volume 8.6 fL (9.5-13.5); Monocytes Absolute Auto 0.6 10^3/uL (0.3-0.8); Monocytes Percent Auto 5.8 % (1.7-12.0); Neutrophils Absolute Auto 7.6 10^3/uL (1.4-6.5); Neutrophils Percent Auto 79.1 % (43.0-75.0); Platelet Count 379 10^3/uL (150-450); Red Blood Count 5.01 10^6/uL (4.20-5.40); Red Cell Distribution Width 13.7 % (11.0-15.0); White Blood Count 9.7 10^3/uL (4.0-11.0)
[2024-03-11 13:49] VITALS: BP 168/94
--- OUTSIDE RECORDS SUMMARY | 2024-03-11 13:49 | XMS_ITS | CCD ---
Author Organization [facility] Care Team Providers Care Fermenter Operator Name Role Phone Walker Alba Attending Provider Audi Hdez Primary Care Provider [phone] PROVIDER, UNKNOWN Admitting Unavailable PROVIDER, UNKNOWN Attending [...] Unavailable PAY ., DR ZAPATA Attending Unavailable COLLBRAN, DR SHAJI Osborn Consulting Unavailable PAY ., [...] Unavailable MD Joyce Cruz Primary Care Provider [phone] DO Lavell Salazar Emergency Provider MD Eron Wood Admit Provider MD Errol Nicole Other Provider MD Valeriano Horta Other Provider DO Krunal Kelly Attending Provider MD Valeriano Horta Attending Provider Courtney Valladares Unavailable MD Anthony [facility] Primary Care Provider MD Valeriano Horta Attending Provider FAVIO Vlileda Emergency Provider MD Anthony [facility] Primary Care Provider MD Yasmin Leung Emergency Provider [phone] SHANTI Marcum Emergency Provider MD Errol Nicole Attending Provider Bambi Delgado Unavailable Anthony MASTERS, [facility] Primary Care Provider Anthony MASTERS, [facility] Primary Care Provider [phone] MARVIN SHERWOOD Attending Unavailable PAVNIGHAT, AUDI L Referring Unavailable PAVLOCK, MAX L Primary Care Unavailable Marilee Marcum Admitting Unavailable Marilee Marcum Attending Unavailable [facility] Primary Care Unavailable Chaban, Kamal Admitting Unavailable Patel Nicoleal Attending [facility] Unavailable Valeriano Horta Admitting Unavailable Valeriano Horta Attending Unavailable [facility] Primary Care Unavailable Krunal Kelly Attending Unavailabl e Eron Wood Admitting Unavailable Chaban, Kamal Consulting Unavailable [facility] Primary Care Unavailable Valeriano Horta Consulting [facility] Elio Villeda Admitting Unavailable Elio Villeda Attending Unavailable Yasmin Leung Admitting Unavailable Yasmin Leung Attending Unavailable Shaikh Cruz Primary Care Unavailable ANOMI BERNARD Attending Unavailable SHAIKH CRUZ Attending Unavailable SHAIKH CRUZ Attending Unavailable KEIRY LEW Attending Unavailable SHAIKH CRUZ Referring Unavailable SHAIKH CRUZ Attending Unavailable Allergies Allergy Classification Reported Allergen(s) Allergy Type Date of Onset Reaction(s) Facility Serotonin-1b and Serotonin-1d Receptor Agonists (4 sources) SUMAtriptan Drug Allergy 1 Hives [facility] (1 source) Plasmin Drug Allergy 6 [facility] Repository (16 sources) SUMAtriptan Drug Allergy 3 shortness of breath, Anxiety [facility] (1 source) SUMAtriptan; Translations: [SUMATRIPTAN SUCCINATE] Drug Allergy 0 [facility] Repository (1 source) SUMAtriptan Drug Allergy 4 [facility] Repository Medications Current Medications Medication Drug Class(es) Dates Sig (Normalized) Sig (Original) [id number] 200 actuat albuterol 0.09 mg/actuat metered dose [...] Twice a day Active Continuous Blood Gluc Public Affairs Manager (FreeStyle Magali 14 Day [place]) device (4 sources) Continuous Blood Gluc Public Affairs Manager (FreeStyle Magali 14 Day [place]) device 4 (four) times a day as [...] 1.5 mg/ml oral solution (4 sources) Uncompetitive Y-hvsnxt-I-aspartate Receptor Antagonist, Sigma-1 Agonist Start: 2022 take 10 mL by mouth every eight hours [place] DM 7.5-7.5 MG/5ML 10 mL Orally every [...] polyneuropathy, with long-term current use of insulin ([facility]) TAKE 1 TABLET BY MOUTH THREE [...] 2023 5:04pm take 1 capsule by mo [facility] every eight hours Gabapentin 300 MG [...] polyneuropathy, with long-term current use of insulin ([facility]) Inject 20 Units under the skin [...] tablet Orally Once a day Active nystatin 862907 unt/ml oral suspension (2 sources) Polyene Antifungal Start : 09-29 End: 10-09 nystatin (Mycostatin) 968505 UNIT/ML suspension Indications: Thrush Take 5 mL [...] 2.5 ug by inhalation twice daily Tiotropium [place] (Spiriva Respimat) 2.5 mcg/actuation mist Discontinued 1 [...] stomatitis] 09-29-2023 Episodic Other aftercare (1 source) alf (current) use of insulin; Translations: [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] Onset: 09-15-2022 Episodic Other aftercare (1 source) Other skilled nursing (current) drug therapy; Translations: [OTH HEALTH SERVICE WORKER CURRENT DRUG THERAPY] Onset: 09-15-2022 Episodic Other [...] wo conon 08-30-2023 CT chest wo con [facility] [address] [place] [address] CT Scan Report Signed Patient: Christiane Perez MR#: [id number] 2 : 1975 Acct:[id number] Age/Sex: 48 / F ADM Date: 08/30/23 Loc: CT Room: Type: [facility] Attending Dr: Errol Nicole MD Copies [...] Johnson Jr., D.O.08/30/2023 3:21 PM Dictation Location: [place] [address] Transcribed By: [facility] 08/30/23 1521 Dictated By: Rodger Johnson Jr, DO 08/30/23 1517 Signed By: 08/30/23 1521 Normal [facility] Activated partial thrombopla stin time (aPTT) in platelet poor plasma by coagulation aOrdered By: Marilee Marcum on 08-06-2023 aPTT Coag (PPP) [Time] 32.3 s 25.1-36.5 [facility] Comment on above: A hematocrit value g reater than 55% may lead to inaccurate results in coagulation testing. Patients having hematocrit values >55% require a special collection tube for coagulation studies. Please contact the laboratory at [phone] for redraw instructions. B-Type Natriuretic Peptideon 08-06-2023 Natriuretic peptide B (Bld) [Mass/Vol] 29.0 pg/mL Normal 5-100 [facility] Comment on above: Result Comment: PERF ORMED BY: [place] [id number] PATHOLOGIST STAFF APPRAISER WAYNE WAKEFIELD M.D. Performed By: #### V ANCT #### [facility] [address] [place] [address] Basic Metabolic Panelon 07-17 Anion gap [Moles/Vol] 9.8 mmol/L Normal 6.0-15.0 [facility] Comment on above: Performed By: #### V ANCT #### [facility] [address] [place] [address] [place] Calcium [Mass/Vol] 8.6 mg/dL Normal 8.6-10.3 [facility] Comment on above: Performed By: #### V ANCT #### [facility] [address] [place] [address] [place] Chloride [Moles/Vol] 106 mmol/L Normal 98-107 [facility] Comment on above: Performed By: #### V ANCT #### [facility] [address] [place] [address] [place] CO2 [Moles/Vol] 24.9 mmol/L Normal 21.0-31.0 [facility] Comment on above: Performed By: #### V ANCT #### [facility] [address] Creatinine [Mass/Vol] 0.72 mg/dL Normal 0.60-1.20 [facility] Comment on above: Performed By: #### V ANCT #### [facility] [address] [place] [address] [place] Creatinine Clr Calc Pharmacy 116.58 [facility] Comment on above: Result Comment: PERF ORMED BY: [place] [id number] PATHOLOGIST STAFF APPRAISER WAYNE WAKEFIELD M.D. Performed By: #### V ANCT #### [place] [address] [place] GFR/1.73 sq M.predicted MDRD (S/P/Bld) [Vol rate/Area] mL/min/{1.73_m2} [facility] Comment on above: Performed By: #### V ANCT #### [place] [address] [place] Glucose [Mass/Vol] 99 mg/dL Normal 70-100 [facility] Comment on above: Result Comment: [place] Glucose Reference Range is dependent on time and content of last meal. Glucose of more than 200 mg/dL in a nonstressed, ambulatory subject supports the diagnosis of Diabetes Mellitus. ADA recommended reference range Performed By: #### V ANCT #### [facility] [address] [place] [address] [place] Potassium [Moles/Vol] 3.7 mmol/L Normal 3.5-5.1 [facility] Comment on above: Performed By: #### V ANCT #### [place] [address] [place] Sodium [Moles/Vol] 137 mmol/L Normal 136-145 [facility] Comment on above: Performed By: #### V ANCT #### [facility] [address] Urea nitrogen [Mass/Vol] 8 mg/dL Normal 7-25 [facility] Comment on above: Performed By: #### V ANCT #### [facility] [address] Basophils Auto (Bld) [#/Vol] Ordered By: Marilee Marcum on 08-06-2023 Basophils (Bld) [#/Vol] 0.1 10*3/uL 0.0-0.2 [facility] Basophils/100 WBC Auto (Bld) Ordered By: Marilee Marcum on 08-06-2023 Basophils/100 WBC (Bld) 0.5 % . [facility] COVID CepheidOrdered By: Marielos Marcum on 08-06-2023 SARS-CoV-2 (COVID-19) Ab IA Ql Negative Negative [facility] Comment on above: This is a duplicate Cepheid Xpert Xpress CoV-2/Flu/RSV Plus RNA by RT-PCR result to be used for statistical tracking purpose only. SARS-CoV-2 (COVID-19) RNA SOILA+probe Ql (Unsp spec) [facility] COVID-19 / Flu A/B / RSV PCR [...] or Cepheid Disclaimer revoked sooner. PERFORMED BY: [place] [id number] PATHOLOGIST STAFF APPRAISER WAYNE WAKEFIELD M.D. [facility] Comment on above: Performed By: #### V ANCT #### [address] Calcium [Mass/volume] in Ser um or PlasmaOrdered By: Marilee Marcum on 08-06-2023 Calcium [Mass/Vol] 8.6 mg/dL 8.6-10.3 [facility] Carbon dioxide, total [Moles /volume] in Serum or PlasmaOrdered By: Marilee Marcum on 08-06-2023 CO2 [Moles/Vol] 24.9 mmol/L 21.0-31.0 [facility] Cepheid COVID PCR Negativeon 08-06-2023 SARS-CoV-2 (COVID-19) RNA SOILA+probe Ql (Unsp spec) Negative Normal Negative [facility] Comment on above: Result Comment: This is a duplicate CepRepunchid Xpert Xpress CoV-2/Flu/RSV Plus RNA by RT-PCR result to be used for statistical tracking purpose only. PERFORMED BY: [place] [id number] PATHOLOGIST STAFF APPRAISER WAYNE WAKEFIELD M.D. Performed By: #### V ANCT #### [place] [address] [place] Chloride [Moles/volume] in S kaitlin or PlasmaOrdered By: Marilee Marcum on 08-06-2023 Chloride [Moles/Vol] 106 mmol/L 98-107 [facility] Complete Blood Count Auto Di ffon 08-06-2023 Basophils (Bld) [#/Vol] 0.1 10*3/uL Normal 0.0-0.2 [facility] Comment on above: Result Comment: PERF ORMED BY: [place] [address] PATHOLOGIST STAFF APPRAISER WAYNE WAKEFIELD M.D. Performed By: #### V ANCT #### [place] [address] [place] Basophils/100 WBC (Bld) 0.5 % Normal . [facility] Comment on above: Performed By: #### V ANCT #### [place] [address] [place] Eosinophils (Bld) [#/Vol] 0.1 10*3/uL Normal 0.0-0.45 [facility] Comment on above: Performed By: #### V ANCT #### [place] [address] [place] Eosinophils/100 WBC (Bld) 1.0 % Normal . [facility] Comment on above: Performed By: #### V ANCT #### [address] Erythrocyte distribution width (RBC) [Ratio] 16.7 % High 11.9-15.3 [facility] Comment on above: Performed By: #### V ANCT #### [facility] [address] Hematocrit (Bld) [Volume fraction] 45.8 % Normal 34.0-46.4 [facility] Comment on above: Performed By: #### V ANCT #### [address] Hemoglobin (Bld) [Mass/Vol] 15.4 g/dL Normal 11.8-15.4 [facility] Comment on above: Performed By: #### V ANCT #### [address] Lymphocytes (Bld) [#/Vol] 1.4 10*3/uL Normal 1.00-4.8 [facility] Comment on above: Performed By: #### V ANCT #### [address] Lymphocytes/100 WBC (Bld) 12.5 % Normal . [facility] Comment on above: Performed By: #### V ANCT #### [place] [address] [place] MCH (RBC) [Entitic mass] 32.9 pg Normal 24.7-34.3 [facility] Comment on above: Performed By: #### V ANCT #### [address] MCV (RBC) [Entitic vol] 97.6 fL Normal 80-100 [facility] Comment on above: Performed By: #### V ANCT #### [address] Mean Corpuscular HGB Conc 33.7 g/dL Normal 32.0-35.0 [facility] Comment on above: Performed By: #### V ANCT #### [place] [address] [place] Monocytes (Bld) [#/Vol] 0.8 10*3/uL Normal 0.0-0.8 [facility] Comment on above: Performed By: #### V ANCT #### [facility] [address] [place] [address] [place] Monocytes/100 WBC (Bld) 23.24 % High 0.00-20.00 [facility] Comment on above: Result Comment: For adults in ED, MDW > 20.0 may be associated with a higher risk of sepsis during the first 12 hrs of hospital admission Performed By: #### V ANCT #### [facility] [address] [place] [address] [place] Monocytes/100 WBC (Bld) 7.7 % Normal . [facility] Comment on above: Performed By: #### V ANCT #### [address] Neutrophils (Bld) [#/Vol] 8.5 10*3/uL High 1.8-7.7 [facility] Comment on above: Performed By: #### V ANCT #### [place] [address] [place] Neutrophils/100 WBC (Bld) 78.3 % Normal . [facility] Comment on above: Performed By: #### V ANCT #### [place] [address] [place] NRBC% 0.1 /100{WBC} Normal 0-0.5 [facility] Comment on above: Performed By: #### V ANCT #### [place] [address] [place] Platelet mean volume (Bld) [Entitic vol] 7.3 fL Normal 6.3-10.7 [facility] Comment on above: Performed By: #### V ANCT #### [facility] [address] [place] [address] [place] Platelets (Bld) [#/Vol] 237 10*3/uL Normal 150-450 [facility] Comment on above: Performed By: #### V ANCT #### [facility] [address] [place] [address] [place] RBC (Bld) [#/Vol] 4.70 10*6/uL Normal 3.60-5.00 [facility] Comment on above: Performed By: #### V ANCT #### [facility] [address] [place] [address] [place] WBC (Bld) [#/Vol] 10.8 10*3/uL Normal 3.8-11.6 [facility] Comment on above: Performed By: #### V ANCT #### [facility] [address] Creatinine [Mass/volume] in Serum or PlasmaOrdered By: Marilee Marcum on 08-06-2023 Creatinine [Mass/Vol] 0.72 mg/dL 0.60-1.20 [facility] ECG 12 lead ECGon 08-06-2023 ECG 12 lead ECG [facility] [address] [place] [address] Electrocardiograph Report Signed Patient: Christiane Perez MR#: [id number] 2 : 1975 Acct:[id number] Age/Sex: 48 / F ADM Date: 08/06/23 Loc: ER Room: Type: [facility] ER Attending Dr: Ordering Provider: Marilee [...] change was found Confirmed by [facility] ([id number]) on 08/08/2023 11:46:24 AM Referred By: Electronically Signed By:ROBIN ZUNIGA MD, FACC Transcribed By: MUS Signed By Mario Zuniga MD 08/08/23 1146 Normal [facility] Eosinophils Auto (Bld) [#/Vo l]Ordered By: Marilee Marcum on 08-06-2023 Eosinophils (Bld) [#/Vol] 0.1 10*3/uL 0.0-0.45 [facility] Eosinophils/100 WBC Auto (Bl d)Ordered By: Marilee Marcum on 08-06-2023 Eosinophils/100 WBC (Bld) 1.0 % . [facility] Erythrocyte distribution wid th Auto (RBC) [Ratio]Ordered By: Marilee Marcum on 08-06-2023 Erythrocyte distribution width (RBC) [Ratio] 16.7 % 11.9-15.3 [facility] Glucose [Mass/volume] in Ser um or PlasmaOrdered By: Marilee Marcum on 08-06-2023 Glucose [Mass/Vol] 99 mg/dL 70-100 [facility] Comment on above: ADA recommended refe rence rangeRandom Glucose Reference Range is dependent on time and content of last meal. Glucose of more than 200 mg/dL in a nonstressed, ambulatory subject supports the diagnosis of Diabetes Mellitus. Hematocrit Auto (Bld) [Volum e fraction]Ordered By: Marilee Marcum on 08-06-2023 Hematocrit (Bld) [Volume fraction] 45.8 % 34.0-46.4 [facility] Hemoglobin [Mass/volume] in BloodOrdered By: Marilee Marcum on 08-06-2023 Hemoglobin (Bld) [Mass/Vol] 15.4 g/dL 11.8-15.4 [facility] INR in Platelet poor plasma by Coagulation assayOrdered By: Marilee Marcum on 08-06-2023 INR Coag (PPP) [Relative time] 1.0 {INR} [facility] Comment on above: INR Therapeutic Rang e [...] RBC Auto (Bld) [#/Vol] 10.8 10*3/uL 3.8-11.6 [facility] Lymphocytes Auto (Bld) [#/Vo l]Ordered By: Marilee Marcum on 08-06-2023 Lymphocytes (Bld) [#/Vol] 1.4 10*3/uL 1.00-4.8 [facility] Lymphocytes/100 WBC Auto (Bl d)Ordered By: Marilee Marcum on 08-06-2023 Lymphocytes/100 WBC (Bld) 12.5 % . [facility] MCH Auto (RBC) [Entitic mass ]Ordered By: Marilee Marcum on 08-06-2023 MCH (RBC) [Entitic mass] 32.9 pg 24.7-34.3 [facility] MCHC Auto (RBC) [Mass/Vol]Or dered By: Marilee Marcum on 08-06-2023 MCHC (RBC) [Mass/Vol] 33.7 g/dL 32.0-35.0 [facility] MCV Auto (RBC) [Entitic vol] Ordered By: Marilee Marcum on 08-06-2023 MCV (RBC) [Entitic vol] 97.6 fL 80-100 [facility] Monocyte distribution width [Entitic volume] in Blood by AutomatedOrdered By: Marilee Marcum on 08-06-2023 Monocyte distribution width Auto (Bld) [Entitic vol] 23.24 % 0.00-20.00 [facility] Comment on above: For adults in ED, MD W > 20.0 may be associated with a higher risk of sepsis during the first 12 hrs of hospital admission Monocytes Auto (Bld) [#/Vol] Ordered By: Marilee Marcum on 08-06-2023 Monocytes (Bld) [#/Vol] 0.8 10*3/uL 0.0-0.8 [facility] Monocytes/100 WBC Auto (Bld) Ordered By: Marilee Marcum on 08-06-2023 Monocytes/100 WBC (Bld) 7.7 % . [facility] Natriuretic peptide B [Mass/ Vol]Ordered By: Marilee Marcum on 08-06-2023 Natriuretic peptide B (Bld) [Mass/Vol] 29.0 pg/mL 5-100 [facility] Neutrophils Auto (Bld) [#/Vo l]Ordered By: Marilee Marcum on 08-06-2023 Neutrophils (Bld) [#/Vol] 8.5 10*3/uL 1.8-7.7 [facility] Neutrophils/100 WBC Auto (Bl d)Ordered By: Marilee Marcum on 08-06-2023 Neutrophils/100 WBC (Bld) 78.3 % . [facility] No Panel InformationOrdered By: Marilee Marcum on 08-06-2023 Estimated GFR (CKD-EPI) > 60.0 mL/Min [facility] Creatinine Clearance (Chem 116.58 [facility] Nucleated erythrocytes [Pres ence] in Blood by Automated countOrdered By: Marilee Marcum on 08-06-2023 Nucleated RBC Auto Ql (Bld) 0.1 /100{WBC} 0-0.5 [facility] Partial Thromboplastin Timeo n 08-06-2023 aPTT Coag (Bld) [Time] 32.3 s Normal 25.1-36.5 [facility] Comment on above: Result Comment: A he matocrit value greater than 55% may lead to inaccurate results in coagulation testing. Patients having hematocrit values >55% require a special collection tube for coagulation studies. Please contact the laboratory at [phone] for redraw instructions. PERFORMED BY: [place] [id number] PATHOLOGIST STAFF APPRAISER WAYNE WAKEFIELD M.D. Performed By: #### V ANCT #### [facility] [address] [place] [address] Platelet mean volume Auto (B ld) [Entitic vol]Ordered By: Marilee Marcum on 08-06-2023 Platelet mean volume (Bld) [Entitic vol] 7.3 fL 6.3-10.7 [facility] Platelets Auto (Bld) [#/Vol] Ordered By: Marilee Marcum on 08-06-2023 Platelets (Bld) [#/Vol] 237 10*3/uL 150-450 [facility] Potassium [Moles/volume] in Serum or PlasmaOrdered By: Marilee Marcum on 08-06-2023 Potassium [Moles/Vol] 3.7 mmol/L 3.5-5.1 [facility] Prothrombin Time INRon 08-06 INR Coag (PPP) [Relative time] 1.0 {INR} Normal [facility] Comment on above: Result Comment: INR Therapeutic [...] 4.5 Performed By: #### V ANCT #### [facility] [address] PT Coag (PPP) [Time] 11.3 s Normal 9.0-12.9 [facility] Comment on above: Result Comment: A he matocrit value greater than 55% may lead to inaccurate results in coagulation testing. Patients having hematocrit values >55% require a special collection tube for coagulation studies. Please contact the laboratory at [phone] for redraw instructions. Performed By: #### V ANCT #### [facility] [address] [place] [id number] [facility] Prothrombin time (PT)Ordered By: Marilee Marcum on 08-06-2023 PT Coag (PPP) [Time] 11.3 s 9.0-12.9 [facility] Comment on above: A hematocrit value g reater than 55% may lead to inaccurate results in coagulation testing. Patients having hematocrit values >55% require a special collection tube for coagulation studies. Please contact the laboratory at [phone] for redraw instructions. RBC Auto (Bld) [#/Vol]Ordere d By: Marilee Marcum on 08-06-2023 RBC (Bld) [#/Vol] 4.70 10*6/uL 3.60-5.00 [facility] Serum or plasma anion gap de terminationOrdered By: Marilee Marcum on 08-06-2023 Anion gap [Moles/Vol] 9.8 mmol/L 6.0-15.0 [facility] Sodium [Moles/volume] in Ser um or PlasmaOrdered By: Marilee Marcum on 08-06-2023 Sodium [Moles/Vol] 137 mmol/L 136-145 [facility] Troponin I High Sensitivityo n 08-06-2023 Troponin I High Sensitivity 8.9 pg/mL Normal 0.0-15.0 [facility] Comment on above: Result Comment: PERF ORMED BY: [place] [id number] PATHOLOGIST STAFF APPRAISER WAYNE WAKEFIELD M.D. Performed By: #### V ANCT #### [address] Troponin I.cardiac [Mass/vol ume] in Serum or Plasma by Detection limit <= 0.01 ng/Ordered By: Marilee Marcum on 08-06-2023 Troponin I.cardiac DL <= 0.01 ng/mL [Mass/Vol] 8.9 pg/mL 0.0-15.0 [facility] Urea nitrogen [Mass/volume] in Serum or PlasmaOrdered By: Marilee Marcum on 08-06-2023 Urea nitrogen [Mass/Vol] 8 mg/dL 7-25 [facility] WBC Auto (Bld) [#/Vol]Ordere d By: Marilee Marcum on 08-06-2023 WBC (Bld) [#/Vol] 10.8 10*3/uL 3.8-11.6 [facility] XR chest 2V*on 08-06-2023 XR chest 2V* [facility] [address] [place] [address] XRay Report Signed Patient: Christiane Perez MR#: [id number] 2 : 1975 Acct:[id number] Age/Sex: 48 / F ADM Date: 08/06/23 Loc: ER Room: Type: [facility] ER Attending Dr: Copies to: Marilee [...] Giovanny Cleveland M.D.08/06/2023 8:42 PM Dictation Location: [place] [address] Transcribed By: [facility] 08/06/232041 Dictated By: Giovanny Cleveland DO 08/06/232038 Signed By: 08/06/232041 [facility] Basic Metabolic Panelon 12-0 Anion gap [Moles/Vol] 9.2 mmol/L Normal 6.0-15.0 [facility] Comment on above: Performed By: #### G LULS #### Point of Care testing , Calcium [Mass/Vol] 8.9 mg/dL Normal 8.6-10.3 [facility] Comment on above: Performed By: #### G LULS #### Point of Care testing , Chloride [Moles/Vol] 107 mmol/L Normal 98-107 [facility] Comment on above: Performed By: #### G LULS #### Point of Care testing , CO2 [Moles/Vol] 25.5 mmol/L Normal 21.0-31.0 [facility] Comment on above: Performed By: #### G LULS #### Point of Care testing , Creatinine [Mass/Vol] 0.70 mg/dL Normal 0.60-1.20 [facility] Comment on above: Performed By: #### G LULS #### Point of Care testing , Creatinine Clr Calc Pharmacy 119.81 [facility] Comment on above: Result Comment: PERF ORMED BY: [place] [id number] [place] [address] PATHOLOGIST STAFF APPRAISER WAYNE WAKEFIELD M.D. Performed By: #### G LULS #### Point of Care testing , GFR/1.73 sq M.predicted MDRD (S/P/Bld) [Vol rate/Area] mL/min/{1.73_m2} Normal [facility] Comment on above: Performed By: #### G LULS #### Point of Care testing , Glucose [Mass/Vol] 50 mg/dL Low 70-100 [facility] Comment on above: Result Comment: [place] Glucose Reference Range is dependent on time and content of last meal. Glucose of more than 200 mg/dL in a nonstressed, ambulatory subject supports the diagnosis of Diabetes Mellitus. ADA recommended reference range Performed By: #### G LULS #### Point of Care testing , Potassium [Moles/Vol] 3.7 mmol/L Normal 3.5-5.1 [facility] Comment on above: Performed By: #### G LULS #### Point of Care testing , Sodium [Moles/Vol] 138 mmol/L Normal 136-145 [facility] Comment on above: Performed By: #### G LULS #### Point of Care testing , Urea nitrogen [Mass/Vol] 10 mg/dL Normal 7-25 [facility] Comment on above: Performed By: #### G LULS #### Point of Care testing , Complete Blood Count Auto Di ffon 07-17-2023 Basophils (Bld) [#/Vol] 0.2 10*3/uL Normal 0.0-0.2 [facility] Comment on above: Result Comment: PERF ORMED BY: [facility] [address] [place] [address] PATHOLOGIST STAFF APPRAISER WAYNE WAKEFIELD M.D. Performed By: #### G LULS #### Point of Care testing , Basophils/100 WBC (Bld) 1.1 % Normal . [facility] Comment on above: Performed By: #### G LULS #### Point of Care testing , Eosinophils (Bld) [#/Vol] 0.2 10*3/uL Normal 0.0-0.45 [facility] Comment on above: Performed By: #### G MARYLS #### Point of Care testing , Eosinophils/100 WBC (Bld) 1.2 % Normal . [facility] Comment on above: Performed By: #### G MARYLS #### Point of Care testing , Erythrocyte distribution width (RBC) [Ratio] 16.3 % High 11.9-15.3 [facility] Comment on above: Performed By: #### G MARYLS #### Point of Care testing , Hematocrit (Bld) [Volume fraction] 45.8 % Normal 34.0-46.4 [facility] Comment on above: Performed By: #### G MARYLS #### Point of Care testing , Hemoglobin (Bld) [Mass/Vol] 15.3 g/dL Normal 11.8-15.4 [facility] Comment on above: Performed By: #### G MARYLS #### Point of Care testing , Lymphocytes (Bld) [#/Vol] 4.4 10*3/uL Normal 1.00-4.8 [facility] Comment on above: Performed By: #### G MARYLS #### Point of Care testing , Lymphocytes/100 WBC (Bld) 32.3 % Normal . [facility] Comment on above: Performed By: #### G MARYLS #### Point of Care testing , MCH (RBC) [Entitic mass] 32.2 pg Normal 24.7-34.3 [facility] Comment on above: Performed By: #### G MARYLS #### Point of Care testing , MCV (RBC) [Entitic vol] 96.4 fL Normal 80-100 [facility] Comment on above: Performed By: #### G MARYLS #### Point of Care testing , Mean Corpuscular HGB Conc 33.4 g/dL Normal 32.0-35.0 [facility] Comment on above: Performed By: #### G MARYLS #### Point of Care testing , Monocytes (Bld) [#/Vol] 0.9 10*3/uL High 0.0-0.8 [facility] Comment on above: Performed By: #### G MARE #### Point of Care testing , Monocytes/100 WBC (Bld) 17.19 % Normal 0.00-20.00 [facility] Comment on above: Performed By: #### G MARYLS #### Point of Care testing , Monocytes/100 WBC (Bld) 6.8 % Normal . [facility] Comment on above: Performed By: #### G MARYLS #### Point of Care testing , Neutrophils (Bld) [#/Vol] 8.0 10*3/uL High 1.8-7.7 [facility] Comment on above: Performed By: #### G MARYLS #### Point of Care testing , Neutrophils/100 WBC (Bld) 58.6 % Normal . [facility] Comment on above: Performed By: #### G MARYLS #### Point of Care testing , NRBC% 0.1 /100{WBC} Normal 0-0.5 [facility] Comment on above: Performed By: #### G MARYLS #### Point of Care testing , Platelet mean volume (Bld) [Entitic vol] 6.9 fL Normal 6.3-10.7 [facility] Comment on above: Performed By: #### Sophia GARVEY #### Point of Care testing , Platelets (Bld) [#/Vol] 414 10*3/uL Normal 150-450 [facility] Comment on above: Performed By: #### G MARE #### Point of Care testing , RBC (Bld) [#/Vol] 4.75 10*6/uL Normal 3.60-5.00 [facility] Comment on above: Performed By: #### G MARE #### Point of Care testing , WBC (Bld) [#/Vol] 13.6 10*3/uL High 3.8-11.6 [facility] Comment on above: Performed By: #### G MARYLS #### Point of Care testing , XR chest 1V portableon 07-17 XR chest 1V portable [place] [address] XRay Report Signed Patient: Christiane Perez MR#: [id number] 2 : 1975 Acct:[id number] Age/Sex: 48 / F ADM Date: 07/16/23 Loc: ER Room: Type: [facility] ER Attending Dr: Copies to: Yasmin [...] Shireen Caruso M.D.07/17/2023 8:50 AM Dictation Location: [place] [address] Transcribed By: CHARLI 07/17/23 0850 Dictated By: Shireen Caruso MD 07/17/23 0849 Signed By: 07/17/23 0850 Normal [facility] Basophils Auto (Bld) [#/Vol] Ordered By: Yasmin Leung on 07-16-2023 Basophils (Bld) [#/Vol] 0.2 10*3/uL 0.0-0.2 [facility] Basophils/100 WBC Auto (Bld) Ordered By: Yasmin Leung on 07-16-2023 Basophils/100 WBC (Bld) 1.1 % . [facility] Calcium [Mass/volume] in Ser um or PlasmaOrdered By: Yasmin Leung on 07-16-2023 Calcium [Mass/Vol] 8.9 mg/dL 8.6-10.3 [facility] Carbon dioxide, total [Moles /volume] in Serum or PlasmaOrdered By: Yasmin Leung on 07-16-2023 CO2 [Moles/Vol] 25.5 mmol/L 21.0-31.0 [facility] [place] Chloride [Moles/volume] in S kaitlin or PlasmaOrdered By: Yasmin Leung on 12-01-2023 Chloride [Moles/Vol] 107 mmol/L 98-107 [facility] Creatinine [Mass/volume] in Serum or PlasmaOrdered By: Yasmin Leung on 07-16-2023 Creatinine [Mass/Vol] 0.70 mg/dL 0.60-1.20 [facility] ECG 12 lead ECGon 07-16-2023 ECG 12 lead ECG [place] [address] Electrocardiograph Report Signed Patient: Christiane Perez MR#: [id number] 2 : 1975 Acct:[id number] Age/Sex: 48 / F ADM Date: 07/16/23 Loc: ER Room: Type: [facility] ER Attending Dr: Ordering Provider: Yasmin [...] By Yasmin Leung MD 07/17/23 0119 Normal [facility] Eosinophils Auto (Bld) [#/Vo l]Ordered By: Yasmin Leung on 07-16-2023 Eosinophils (Bld) [#/Vol] 0.2 10*3/uL 0.0-0.45 [facility] Eosinophils/100 WBC Auto (Bl d)Ordered By: Yasmin Leung on 07-16-2023 Eosinophils/100 WBC (Bld) 1.2 % . [facility] Erythrocyte distribution wid th Auto (RBC) [Ratio]Ordered By: Yasmin Leung on 07-16-2023 Erythrocyte distribution width (RBC) [Ratio] 16.3 % 11.9-15.3 [facility] Glucose [Mass/volume] in Ser um or PlasmaOrdered By: Yasmin Leung on 07-16-2023 Glucose [Mass/Vol] 50 mg/dL 70-100 [facility] Comment on above: ADA recommended refe rence rangeRandom Glucose Reference Range is dependent on time and content of last meal. Glucose of more than 200 mg/dL in a nonstressed, ambulatory subject supports the diagnosis of Diabetes Mellitus. Hematocrit Auto (Bld) [Volum e fraction]Ordered By: Yasmin Leung on 07-16-2023 Hematocrit (Bld) [Volume fraction] 45.8 % 34.0-46.4 [facility] Hemoglobin [Mass/volume] in BloodOrdered By: Yasmin Leung on 07-16-2023 Hemoglobin (Bld) [Mass/Vol] 15.3 g/dL 11.8-15.4 [facility] Leukocytes [#/volume] correc billy for nucleated erythrocytes in Blood by Automated counOrdered By: Yasmin Leung on 07-16-2023 WBC corrected for nucl RBC Auto (Bld) [#/Vol] 13.6 10*3/uL 3.8-11.6 [facility] Lymphocytes Auto (Bld) [#/Vo l]Ordered By: Yasmin Leung on 07-16-2023 Lymphocytes (Bld) [#/Vol] 4.4 10*3/uL 1.00-4.8 [facility] Lymphocytes/100 WBC Auto (Bl d)Ordered By: Yasmin Leung on 07-16-2023 Lymphocytes/100 WBC (Bld) 32.3 % . [facility] MCH Auto (RBC) [Entitic mass ]Ordered By: Yasmin Leung on 07-16-2023 MCH (RBC) [Entitic mass] 32.2 pg 24.7-34.3 [facility] MCHC Auto (RBC) [Mass/Vol]Or dered By: Yasmin Leung on 07-16-2023 MCHC (RBC) [Mass/Vol] 33.4 g/dL 32.0-35.0 [facility] MCV Auto (RBC) [Entitic vol] Ordered By: Yasmin Leung on 07-16-2023 MCV (RBC) [Entitic vol] 96.4 fL 80-100 [facility] Monocyte distribution width [Entitic volume] in Blood by AutomatedOrdered By: Yasmin Leung on 07-16-2023 Monocyte distribution width Auto (Bld) [Entitic vol] 17.19 % 0.00-20.00 [facility] Monocytes Auto (Bld) [#/Vol] Ordered By: Yasmin Leung on 07-16-2023 Monocytes (Bld) [#/Vol] 0.9 10*3/uL 0.0-0.8 [facility] Monocytes/100 WBC Auto (Bld) Ordered By: Yasmin Leung on 07-16-2023 Monocytes/100 WBC (Bld) 6.8 % . [facility] Neutrophils Auto (Bld) [#/Vo l]Ordered By: Yasmin Leung on 07-16-2023 Neutrophils (Bld) [#/Vol] 8.0 10*3/uL 1.8-7.7 [facility] Neutrophils/100 WBC Auto (Bl d)Ordered By: Yasmin Leung on 07-16-2023 Neutrophils/100 WBC (Bld) 58.6 % . [facility] No Panel InformationOrdered By: Yasmin Leung on 07-16-2023 Estimated GFR (CKD-EPI) > 60.0 mL/Min [facility] Creatinine Clearance (Chem 119.81 [facility] Nucleated erythrocytes [Pres ence] in Blood by Automated countOrdered By: Yasmin Leung on 07-16-2023 Nucleated RBC Auto Ql (Bld) 0.1 /100{WBC} 0-0.5 [facility] Platelet mean volume Auto (B ld) [Entitic vol]Ordered By: Yasmin Leung on 07-16-2023 Platelet mean volume (Bld) [Entitic vol] 6.9 fL 6.3-10.7 [facility] Platelets Auto (Bld) [#/Vol] Ordered By: Yasmin Leung on 07-16-2023 Platelets (Bld) [#/Vol] 414 10*3/uL 150-450 [facility] Potassium [Moles/volume] in Serum or PlasmaOrdered By: Yasmin Leung on 07-16-2023 Potassium [Moles/Vol] 3.7 mmol/L 3.5-5.1 [facility] RBC Auto (Bld) [#/Vol]Ordere d By: Yasmin Leung on 07-16-2023 RBC (Bld) [#/Vol] 4.75 10*6/uL 3.60-5.00 [facility] Serum or plasma anion gap de terminationOrdered By: Yasmin Leung on 07-16-2023 Anion gap [Moles/Vol] 9.2 mmol/L 6.0-15.0 [facility] Sodium [Moles/volume] in Ser um or PlasmaOrdered By: Yasmin Leung on 07-16-2023 Sodium [Moles/Vol] 138 mmol/L 136-145 [facility] Urea nitrogen [Mass/volume] in Serum or PlasmaOrdered By: Yasmin Leung on 07-16-2023 Urea nitrogen [Mass/Vol] 10 mg/dL 7-25 [facility] WBC Auto (Bld) [#/Vol]Ordere d By: Yasmin Leung on 07-16-2023 WBC (Bld) [#/Vol] 13.6 10*3/uL 3.8-11.6 [facility] COVID CepheidOrdered By: Antonio Villeda on 07-05-2023 SARS-CoV-2 (COVID-19) Ab IA Ql Negative Negative [facility] Comment on above: This is a duplicate Cepheid Xpert Xpress CoV-2/Flu/RSV Plus RNA by RT-PCR result to be used for statistical tracking purpose only. SARS-CoV-2 (COVID-19) RNA SOILA+probe Ql (Unsp spec) [facility] COVID-19 / Flu A/B / RSV PCR [...] or Cepheid Disclaimer revoked sooner. PERFORMED BY: [address] [address] PATHOLOGIST STAFF APPRAISER WAYNE WAKEFIELD M.D. Normal [facility] Comment on above: Performed By: #### G LULS #### Point of Care testing , Cepheid COVID PCR Negativeon 07-05-2023 SARS-CoV-2 (COVID-19) RNA SOILA+probe Ql (Unsp spec) Negative Normal Negative [facility] Comment on above: Result Comment: This is a duplicate Cepheid Xpert Xpress CoV-2/Flu/RSV Plus RNA by RT-PCR result to be used for statistical tracking purpose only. PERFORMED BY: [address] [place] [address] PATHOLOGIST STAFF APPRAISER WAYNE WAKEFIELD M.D. Performed By: #### G LULS #### Point of Care testing , XR chest 2V*on 07-05-2023 XR chest 2V* [facility] [place] [facility] [address] [place] [address] XRay Report Signed Patient: Christiane Perez MR#: [id number] 2 : 1975 Acct:[id number] Age/Sex: 48 / F ADM Date: 07/05/23 Loc: ER Room: Type: [facility] ER Attending Dr: Copies to: Elio [...] Giovanny Cleveland M.D.07/05/2023 2:41 PM Dictation Location: [place] [address] Transcribed By: [facility] 07/05/23 1441 Dictated By: Giovanny Cleveland DO 07/05/23 1437 Signed By: 07/05/23 1441 Normal [facility] Quick Strepon 06-20-2023 S. pyogenes Org specific cx Ql (Throat) Negative eegoes Other Quick Strep eegoes Other CT chest wo conon 04-09-2023 CT chest wo con [facility] [address] [address] [address] Scan Report Signed Patient: Christiane Perez MR#: [id number] 2 : 1975 Acct:[id number] Age/Sex: 48 / F ADM Date: 04/09/23 Loc: [facility] Room: Type: [facility] Attending Dr: Valeriano Horta MD Copies [...] Johnson Jr., D.OJosue04/09/2023 3:00 PM Dictation Location: [place] [address] Transcribed By: [facility] 04/09/23 1500 Dictated By: Rodger Johnson Jr, DO 04/09/23 1456 Signed By: 04/09/23 1500 Normal [facility] SURGICAL PATHOLOGY REFERENCE LAB CONSULTon 03-19-2023 CASE REPORT Normal [facility] Comment on above: Order Comment: Speci men Type: SLIDE Ordering Facility: [facility] Address: [address] [place] [phone] Result Comment: Surg [facility] Pathology Report Case: [id number] Authorizing Provider: Gregory Aranda MD Collected: 03/19/2023 09:16 AM Ordering Location: [facility] Main Received: 03/19/2023 09:14 AM Pathologist: Mando Gar MD Specimen: SLIDE(S), 8 SLIDES [id number] Performed By: #### L [id number] #### [facility] CLIA [id number] [facility] [facility] [address] CLINICAL HISTORY CONSULT REQUESTED [facility] Comment on above: Order Comment: Speci men Type: SLIDE Ordering Facility: [facility] Address: [address] [place] [phone] Performed By: #### L [id number] #### [facility] CLIA [id number] [address] [place] [address] DIAGNOSIS COMMENT Normal [facility] [place] Comment on above: Order Comment: Speci men Type: SLIDE Ordering Facility: [facility] Address: [address] [place] [phone] Result Comment: Than k you for sharing [...] available, is recommended. Performed By: #### L [id number] #### [facility] CLIA [id number] [address] [place] [address] [place] FINAL DIAGNOSIS Normal [facility] Comment on above: Order Comment: Speci tee Type: SLIDE Ordering Facility: [facility] Address: [address] [place] [phone] Result Comment: Lung , left upper lobe, transbronchial biopsy (S [id number], A1; 03/11/2023): -Organizing acute lung injury with fibrin and acute inflammation Performed By: #### L [id number] #### [facility] CLIA [id number] [address] [place] [address] [place] FINAL PERFORMING LAB Normal [facility] Comment on above: Order Comment: Rosalee oliveira Type: SLIDE Ordering Facility: [facility] Address: [address] [place], [place] [phone] Result Comment: Diag nostic interpretation performed at [facility], [address] [place] [address] CLIA# [id number] Therapy Coordinator: Don Meehan M.D. Performed By: #### L [id number] #### [facility] CLIA [id number] [address] [place] [address] [place] XR chest 1V portableon 03-17 XR chest 1V portable [facility] [address] [address] XRay Report Signed Patient: Christiane Perez MR#: [id number] 2 : 1975 Acct:[id number] Age/Sex: 48 / F ADM Date: 03/10/23 Loc: Room: [address] [place] [address] Type: DIS IN Attending Dr: Krunal Kelly [...] Johnson Jr., D.O.03/17/2023 10:12 AM Dictation Location: [place] [address] Transcribed By: [facility] 03/17/23 1012 Dictated By: Rodger Johnson Jr, DO 03/17/23 1012 Signed By: 03/17/23 1012 Normal [facility] A1C with Estimated Average G shilpi 03-14-2023 Glucose [Mass/Vol] 171 mg/dL Normal [facility] Comment on above: Result Comment: PERF ORMED BY: [facility] [address] [place] [address] PATHOLOGIST STAFF APPRAISER WAYNE WAKEFIELD M.D. Performed By: #### G LULS #### Point of Care testing , HbA1c (Bld) [Mass fraction] 7.6 % High 4.3-5.6 [facility] Comment on above: Result Comment: Incr eased risk for diabetes: 5.7 - 6.4 diabetes: >6.4 glycemic control for adults with diabetes: <7.0 Performed By: #### G LULS #### Point of Care testing , Alanine aminotransferase [En zymatic activity/volume] in Serum or PlasmaOrdered By: Krunal Kelly on 03-14-2023 ALT [Catalytic activity/Vol] 5 U/L 7-52 [facility] Albumin [Mass/volume] in Ser um or Plasma by Bromocresol green (BCG) dye binding methoOrdered By: Krunal Kelly on 03-14-2023 Albumin BCG dye [Mass/Vol] 2.9 g/dL 3.5-5.7 [facility] Alkaline phosphatase [Enzyma tic activity/volume] in Serum or PlasmaOrdered By: Krunal Kelly on 03-14-2023 ALP [Catalytic activity/Vol] 94 U/L 34-104 [facility] Aspartate aminotransferase [ Enzymatic activity/volume] in Serum or PlasmaOrdered By: Krunal Kelly on 03-14-2023 AST [Catalytic activity/Vol] 8 U/L 13-39 [facility] Basophils Auto (Bld) [#/Vol] Ordered By: Eron Wood on 03-14-2023 Basophils (Bld) [#/Vol] 0.1 10*3/uL 0.0-0.2 [facility] Basophils/100 WBC Auto (Bld) Ordered By: Eron Wood on 03-14-2023 Basophils/100 WBC (Bld) 0.7 % . [facility] Bilirubin.total [Mass/volume ] in Serum or PlasmaOrdered By: Krunal Kelly on 03-14-2023 Bilirubin [Mass/Vol] 0.7 mg/dL 0.3-1.0 [facility] Calcium [Mass/volume] in Ser um or PlasmaOrdered By: Krunal Kelly on 03-14-2023 Calcium [Mass/Vol] 8.3 mg/dL 8.6-10.3 [facility] Carbon dioxide, total [Moles /volume] in Serum or PlasmaOrdered By: Krunal Kelly on 03-14-2023 CO2 [Moles/Vol] 24.8 mmol/L 21.0-31.0 [facility] [place] Chloride [Moles/volume] in S kaitlin or PlasmaOrdered By: Krunal Kelly on 03-14-2023 Chloride [Moles/Vol] 108 mmol/L 98-107 [facility] Complete Blood Count Auto Di ffon 03-14-2023 Basophils (Bld) [#/Vol] 0.1 10*3/uL Normal 0.0-0.2 [facility] Comment on above: Result Comment: PERF ORMED BY: [place] [address] PATHOLOGIST STAFF APPRAISER WAYNE WAKEFIELD M.D. Performed By: #### V ANCT #### [address] Basophils/100 WBC (Bld) 0.7 % Normal . [facility] Comment on above: Performed By: #### V ANCT #### [address] Eosinophils (Bld) [#/Vol] 0.4 10*3/uL Normal 0.0-0.45 [facility] Comment on above: Performed By: #### V ANCT #### [address] Eosinophils/100 WBC (Bld) 4.4 % Normal . [facility] Comment on above: Performed By: #### V ANCT #### [address] Erythrocyte distribution width (RBC) [Ratio] 15.5 % High 11.9-15.3 [facility] Comment on above: Performed By: #### V ANCT #### [address] Hematocrit (Bld) [Volume fraction] 35.1 % Normal 34.0-46.4 [facility] Comment on above: Performed By: #### V ANCT #### [place] [address] [place] Hemoglobin (Bld) [Mass/Vol] 12.0 g/dL Normal 11.8-15.4 [facility] Comment on above: Performed By: #### V ANCT #### [address] Lymphocytes (Bld) [#/Vol] 1.6 10*3/uL Normal 1.00-4.8 [facility] Comment on above: Performed By: #### V ANCT #### [address] Lymphocytes/100 WBC (Bld) 16.8 % Normal . [facility] Comment on above: Performed By: #### V ANCT #### [address] MCH (RBC) [Entitic mass] 32.8 pg Normal 24.7-34.3 [facility] Comment on above: Performed By: #### V ANCT #### [address] MCV (RBC) [Entitic vol] 96.4 fL Normal 80-100 [facility] Comment on above: Performed By: #### V ANCT #### [address] Mean Corpuscular HGB Conc 34.1 g/dL Normal 32.0-35.0 [facility] Comment on above: Performed By: #### V ANCT #### [address] Monocytes (Bld) [#/Vol] 0.7 10*3/uL Normal 0.0-0.8 [facility] Comment on above: Performed By: #### V ANCT #### [address] Monocytes/100 WBC (Bld) 7.1 % Normal . [facility] Comment on above: Performed By: #### V ANCT #### [address] Neutrophils (Bld) [#/Vol] 6.8 10*3/uL Normal 1.8-7.7 [facility] Comment on above: Performed By: #### V ANCT #### [address] Neutrophils/100 WBC (Bld) 71.0 % Normal . [facility] Comment on above: Performed By: #### V ANCT #### [place] [address] [place] NRBC% 0.1 /100{WBC} Normal 0-0.5 [facility] Comment on above: Performed By: #### V ANCT #### [address] Platelet mean volume (Bld) [Entitic vol] 6.2 fL Low 6.3-10.7 [facility] Comment on above: Performed By: #### V ANCT #### [address] Platelets (Bld) [#/Vol] 424 10*3/uL Normal 150-450 [facility] Comment on above: Performed By: #### V ANCT #### [address] RBC (Bld) [#/Vol] 3.65 10*6/uL Normal 3.60-5.00 [facility] Comment on above: Performed By: #### V ANCT #### [address] WBC (Bld) [#/Vol] 9.6 10*3/uL Normal 3.8-11.6 [facility] Comment on above: Performed By: #### V ANCT #### [address] Comprehensive Metabolic Pane moose 03-14-2023 Albumin [Mass/Vol] 2.9 g/dL Low 3.5-5.7 [facility] Comment on above: Performed By: #### G LUAUGUSTIN #### Point of Care testing , Albumin/Globulin [Mass ratio] 0.8 {ratio} Normal [facility] Comment on above: Performed By: #### G MARE #### Point of Care testing , ALP [Catalytic activity/Vol] 94 U/L Normal 34-104 [facility] Comment on above: Performed By: #### G MARYLS #### Point of Care testing , ALT [Catalytic activity/Vol] 5 U/L Low 7-52 [facility] Comment on above: Performed By: #### G LULS #### Point of Care testing , Anion gap [Moles/Vol] 8.9 mmol/L Normal 6.0-15.0 [facility] Comment on above: Performed By: #### G MARYLS #### Point of Care testing , AST [Catalytic activity/Vol] 8 U/L Low 13-39 [facility] Comment on above: Performed By: #### G MARYLS #### Point of Care testing , Bilirubin [Mass/Vol] 0.7 mg/dL Normal 0.3-1.0 [facility] Comment on above: Performed By: #### G MARYLS #### Point of Care testing , Calcium [Mass/Vol] 8.3 mg/dL Low 8.6-10.3 [facility] Comment on above: Performed By: #### G MARYLS #### Point of Care testing , Chloride [Moles/Vol] 108 mmol/L High 98-107 [facility] Comment on above: Performed By: #### G MARYLS #### Point of Care testing , CO2 [Moles/Vol] 24.8 mmol/L Normal 21.0-31.0 [facility] [place] Comment on above: Performed By: #### G MARYLS #### Point of Care testing , Creatinine [Mass/Vol] 0.68 mg/dL Normal 0.60-1.20 [facility] Comment on above: Performed By: #### G MARYLS #### Point of Care testing , Creatinine Clr Calc Pharmacy 119.15 [facility] Comment on above: Result Comment: PERF ORMED BY: [facility] [address] [place] [address] PATHOLOGIST STAFF APPRAISER WAYNE WAKEFIELD M.D. Performed By: #### G MARYLS #### Point of Care testing , GFR/1.73 sq M.predicted MDRD (S/P/Bld) [Vol rate/Area] mL/min/{1.73_m2} [facility] Comment on above: Performed By: #### G MARYLS #### Point of Care testing , Globulin (S) [Mass/Vol] 3.7 g/dL [facility] Comment on above: Performed By: #### G LULS #### Point of Care testing , Glucose [Mass/Vol] 86 mg/dL Normal 70-100 [facility] Comment on above: Result Comment: [place] Glucose Reference Range is dependent on time and content of last meal. Glucose of more than 200 mg/dL in a nonstressed, ambulatory subject supports the diagnosis of Diabetes Mellitus. ADA recommended reference range Performed By: #### G LULS #### Point of Care testing , Potassium [Moles/Vol] 3.7 mmol/L Normal 3.5-5.1 [facility] Comment on above: Performed By: #### G LULS #### Point of Care testing , Protein [Mass/Vol] 6.6 g/dL Normal 6.4-8.9 [facility] Comment on above: Performed By: #### G LULS #### Point of Care testing , Sodium [Moles/Vol] 138 mmol/L Normal 136-145 [facility] Comment on above: Performed By: #### G LULS #### Point of Care testing , Urea nitrogen [Mass/Vol] 6 mg/dL Low 7-25 [facility] Comment on above: Performed By: #### G LULS #### Point of Care testing , Creatinine [Mass/volume] in Serum or PlasmaOrdered By: Krunal Kelly on 03-14-2023 Creatinine [Mass/Vol] 0.68 mg/dL 0.60-1.20 [facility] Eosinophils Auto (Bld) [#/Vo l]Ordered By: Eron Wood on 03-14-2023 Eosinophils (Bld) [#/Vol] 0.4 10*3/uL 0.0-0.45 [facility] Eosinophils/100 WBC Auto (Bl d)Ordered By: Eron Wood on 03-14-2023 Eosinophils/100 WBC (Bld) 4.4 % . [facility] Erythrocyte distribution wid th Auto (RBC) [Ratio]Ordered By: Eron Wood on 03-14-2023 Erythrocyte distribution width (RBC) [Ratio] 15.5 % 11.9-15.3 [facility] Globulin Calc (S) [Mass/Vol] Ordered By: Krunal Kelly on 03-14-2023 Globulin (S) [Mass/Vol] 3.7 g/dL [facility] Glucose Glucometer (BldC) [M ass/Vol]Ordered By: Krunal Kelly on 03-14-2023 Glucose [Mass/Vol] 249 mg/dL [facility] Comment on above: Random Glucose Refer ence Range is dependent on time and content of last meal. Glucose of more than 200 mg/dL in a nonstressed, ambulatory subject supports the diagnosis of Diabetes Mellitus. Glucose Poct Glucometerson 0 03-14-2023 Glucose [Mass/Vol] 249 mg/dL Normal [facility] Comment on above: Result Comment: [place] om Glucose Reference Range is dependent on time and content of last meal. Glucose of more than 200 mg/dL in a nonstressed, ambulatory subject supports the diagnosis of Diabetes Mellitus. PERFORMED BY: [facility] [address] [place] [address] PATHOLOGIST STAFF APPRAISER WAYNE WAKEFIELD M.D. Performed By: #### G LULS #### Point of Care testing , Commemt1 Glu2: Cleaned Meter Normal [facility] Comment on above: Result Comment: PERF ORMED BY: [facility] [address] [place] [address] PATHOLOGIST STAFF APPRAISER WAYNE WAKEFIELD M.D. Performed By: #### G LULS #### Point of Care testing , Glucose [Mass/Vol] 95 mg/dL Normal [facility] Comment on above: Result Comment: [place] om Glucose Reference Range is dependent on time and content of last meal. Glucose of more than 200 mg/dL in a nonstressed, ambulatory subject supports the diagnosis of Diabetes Mellitus. Performed By: #### G LULS #### Point of Care testing , Glucose [Mass/volume] in Ser um or PlasmaOrdered By: Krunal Kelly on 03-14-2023 Glucose [Mass/Vol] 86 mg/dL 70-100 [facility] Comment on above: ADA recommended refe [...] from glycated hemoglobin (Bld) [Mass/Vol] 171 mg/dL [facility] Hematocrit Auto (Bld) [Volum e fraction]Ordered By: Eron Wood on 03-14-2023 Hematocrit (Bld) [Volume fraction] 35.1 % 34.0-46.4 [facility] Hemoglobin A1c percentageOrd ered By: Krunal Kelly on 03-14-2023 HbA1c (Bld) [Mass fraction] 7.6 % 4.3-5.6 [facility] Comment on above: Increased risk for d iabetes: 5.7 - 6.4diabetes: >6.4glycemic control for adults with diabetes: <7.0 Hemoglobin [Mass/volume] in BloodOrdered By: Eron Wood on 03-14-2023 Hemoglobin (Bld) [Mass/Vol] 12.0 g/dL 11.8-15.4 [facility] Leukocytes [#/volume] correc billy for nucleated erythrocytes in Blood by Automated counOrdered By: Eron Wood on 03-14-2023 WBC corrected for nucl RBC Auto (Bld) [#/Vol] 9.6 10*3/uL 3.8-11.6 [facility] Lymphocytes Auto (Bld) [#/Vo l]Ordered By: Eron Wood on 03-14-2023 Lymphocytes (Bld) [#/Vol] 1.6 10*3/uL 1.00-4.8 [facility] Lymphocytes/100 WBC Auto (Bl d)Ordered By: Eron Wood on 03-14-2023 Lymphocytes/100 WBC (Bld) 16.8 % . [facility] MCH Auto (RBC) [Entitic mass ]Ordered By: Eron Wood on 03-14-2023 MCH (RBC) [Entitic mass] 32.8 pg 24.7-34.3 [facility] MCHC Auto (RBC) [Mass/Vol]Or dered By: Eron Wood on 03-14-2023 MCHC (RBC) [Mass/Vol] 34.1 g/dL 32.0-35.0 [facility] MCV Auto (RBC) [Entitic vol] Ordered By: Eron Wood on 03-14-2023 MCV (RBC) [Entitic vol] 96.4 fL 80-100 [facility] Monocytes Auto (Bld) [#/Vol] Ordered By: Eron Wood on 03-14-2023 Monocytes (Bld) [#/Vol] 0.7 10*3/uL 0.0-0.8 [facility] Monocytes/100 WBC Auto (Bld) Ordered By: Eron Wood on 03-14-2023 Monocytes/100 WBC (Bld) 7.1 % . [facility] Neutrophils Auto (Bld) [#/Vo l]Ordered By: Eron Wood on 03-14-2023 Neutrophils (Bld) [#/Vol] 6.8 10*3/uL 1.8-7.7 [facility] Neutrophils/100 WBC Auto (Bl d)Ordered By: Eron Wood on 03-14-2023 Neutrophils/100 WBC (Bld) 71.0 % . [facility] No Panel InformationOrdered By: Krunal Kelly on 03-14-2023 Bedside Glucose Comment Glu2: cleaned meter [facility] Estimated GFR (CKD-EPI) > 60.0 mL/Min [facility] Creatinine Clearance (Chem 119.15 [facility] Nucleated erythrocytes [Pres ence] in Blood by Automated countOrdered By: Eron Wood on 03-14-2023 Nucleated RBC Auto Ql (Bld) 0.1 /100{WBC} 0-0.5 [facility] Platelet mean volume Auto (B ld) [Entitic vol]Ordered By: Eron Wood on 03-14-2023 Platelet mean volume (Bld) [Entitic vol] 6.2 fL 6.3-10.7 [facility] Platelets Auto (Bld) [#/Vol] Ordered By: Eron Wood on 03-14-2023 Platelets (Bld) [#/Vol] 424 10*3/uL 150-450 [facility] Potassium [Moles/volume] in Serum or PlasmaOrdered By: Krunal Kelly on 03-14-2023 Potassium [Moles/Vol] 3.7 mmol/L 3.5-5.1 [facility] Protein [Mass/volume] in Ser um or PlasmaOrdered By: Krunal Kelly on 03-14-2023 Protein [Mass/Vol] 6.6 g/dL 6.4-8.9 [facility] RBC Auto (Bld) [#/Vol]Ordere d By: Eron Wood on 03-14-2023 RBC (Bld) [#/Vol] 3.65 10*6/uL 3.60-5.00 [facility] Serum or plasma albumin/glob ulin mass ratioOrdered By: Krunal Kelly on 03-14-2023 Albumin/Globulin [Mass ratio] 0.8 {ratio} [facility] Serum or plasma anion gap de terminationOrdered By: Krunal Kelly on 03-14-2023 Anion gap [Moles/Vol] 8.9 mmol/L 6.0-15.0 [facility] Sodium [Moles/volume] in Ser um or PlasmaOrdered By: Krunal Kelly on 03-14-2023 Sodium [Moles/Vol] 138 mmol/L 136-145 [facility] Urea nitrogen [Mass/volume] in Serum or PlasmaOrdered By: Krunal Kelly on 03-14-2023 Urea nitrogen [Mass/Vol] 6 mg/dL 7-25 [facility] WBC Auto (Bld) [#/Vol]Ordere d By: Eron Wood on 03-14-2023 WBC (Bld) [#/Vol] 9.6 10*3/uL 3.8-11.6 [facility] Basic Metabolic Panelon 02-14 Anion gap [Moles/Vol] 8.9 mmol/L Normal 6.0-15.0 [facility] Comment on above: Performed By: #### C BC, BMP, MG #### [facility] [address] Calcium [Mass/Vol] 8.4 mg/dL Low 8.6-10.3 [facility] Comment on above: Performed By: #### C BC, BMP, MG #### [facility] [address] Chloride [Moles/Vol] 109 mmol/L High 98-107 [facility] Comment on above: Performed By: #### C BC, BMP, MG #### [facility] [address] CO2 [Moles/Vol] 24.9 mmol/L Normal 21.0-31.0 [facility] Comment on above: Performed By: #### C BC, BMP, MG #### [address] Creatinine [Mass/Vol] 0.61 mg/dL Normal 0.60-1.20 [facility] Comment on above: Performed By: #### C BC, BMP, MG #### [place] [address] [place] Creatinine Clr Calc Pharmacy 132.97 [facility] Comment on above: Result Comment: PERF ORMED BY: [place] [address] PATHOLOGIST STAFF APPRAISER WAYNE WAKEFIELD M.D. Performed By: #### C BC, BMP, MG #### [place] [address] [place] GFR/1.73 sq M.predicted MDRD (S/P/Bld) [Vol rate/Area] mL/min/{1.73_m2} [facility] Comment on above: Performed By: #### C BC, BMP, MG #### [place] [address] [place] Glucose [Mass/Vol] 97 mg/dL Normal 70-100 [facility] Comment on above: Result Comment: [facility] Glucose Reference Range is dependent on time and content of last meal. Glucose of more than 200 mg/dL in a nonstressed, ambulatory subject supports the diagnosis of Diabetes Mellitus. ADA recommended reference range Performed By: #### C BC, BMP, MG #### [facility] [address] Potassium [Moles/Vol] 3.8 mmol/L Normal 3.5-5.1 [facility] Comment on above: Performed By: #### C BC, BMP, MG #### [facility] [address] Sodium [Moles/Vol] 139 mmol/L Normal 136-145 [facility] Comment on above: Performed By: #### C BC, BMP, MG #### [facility] [address] Urea nitrogen [Mass/Vol] 6 mg/dL Low 7-25 [facility] Comment on above: Performed By: #### C BC, BMP, MG #### [facility] [address] Complete Blood Count Auto Di ffon 03-13-2023 Basophils (Bld) [#/Vol] 0.0 10*3/uL Normal 0.0-0.2 [facility] Comment on above: Result Comment: PERF ORMED BY: [place] [address] PATHOLOGIST STAFF APPRAISER WAYNE WAKEFIELD M.D. Performed By: #### C BC, BMP, MG #### [facility] [address] [place] [address] [place] Basophils/100 WBC (Bld) 0.5 % Normal . [facility] Comment on above: Performed By: #### C BC, BMP, MG #### [facility] [address] Eosinophils (Bld) [#/Vol] 0.4 10*3/uL Normal 0.0-0.45 [facility] Comment on above: Performed By: #### C BC, BMP, MG #### [facility] [address] [place] [address] [place] Eosinophils/100 WBC (Bld) 4.5 % Normal . [facility] Comment on above: Performed By: #### C BC, BMP, MG #### [facility] [address] Erythrocyte distribution width (RBC) [Ratio] 15.7 % High 11.9-15.3 [facility] Comment on above: Performed By: #### C BC, BMP, MG #### [address] Hematocrit (Bld) [Volume fraction] 36.2 % Normal 34.0-46.4 [facility] Comment on above: Performed By: #### C BC, BMP, MG #### [facility] [address] Hemoglobin (Bld) [Mass/Vol] 12.1 g/dL Normal 11.8-15.4 [facility] Comment on above: Performed By: #### C BC, BMP, MG #### [address] Lymphocytes (Bld) [#/Vol] 1.5 10*3/uL Normal 1.00-4.8 [facility] Comment on above: Performed By: #### C BC, BMP, MG #### [facility] [address] [place] [address] [place] Lymphocytes/100 WBC (Bld) 16.5 % Normal . [facility] Comment on above: Performed By: #### C BC, BMP, MG #### [address] MCH (RBC) [Entitic mass] 32.3 pg Normal 24.7-34.3 [facility] Comment on above: Performed By: #### C BC, BMP, MG #### [facility] [address] [place] [address] MCV (RBC) [Entitic vol] 96.7 fL Normal 80-100 [facility] Comment on above: Performed By: #### C BC, BMP, MG #### [facility] [address] Mean Corpuscular HGB Conc 33.4 g/dL Normal 32.0-35.0 [facility] Comment on above: Performed By: #### C BC, BMP, MG #### [facility] [address] Monocytes (Bld) [#/Vol] 0.7 10*3/uL Normal 0.0-0.8 [facility] Comment on above: Performed By: #### C BC, BMP, MG #### [facility] [address] [place] [address] Monocytes/100 WBC (Bld) 8.0 % Normal . [facility] Comment on above: Performed By: #### C BC, BMP, MG #### [facility] [address] [place] [address] Neutrophils (Bld) [#/Vol] 6.6 10*3/uL Normal 1.8-7.7 [facility] Comment on above: Performed By: #### C BC, BMP, MG #### [facility] [address] [place] [address] Neutrophils/100 WBC (Bld) 70.5 % Normal . [facility] Comment on above: Performed By: #### C BC, BMP, MG #### [facility] [address] [place] [address] NRBC% 0.1 /100{WBC} Normal 0-0.5 [facility] Comment on above: Performed By: #### C BC, BMP, MG #### [facility] [address] Platelet mean volume (Bld) [Entitic vol] 6.6 fL Normal 6.3-10.7 [facility] Comment on above: Performed By: #### C BC, BMP, MG #### [facility] [address] [place] [address] [place] Platelets (Bld) [#/Vol] 398 10*3/uL Normal 150-450 [facility] Comment on above: Performed By: #### C BC, BMP, MG #### [address] RBC (Bld) [#/Vol] 3.75 10*6/uL Normal 3.60-5.00 [facility] Comment on above: Performed By: #### C BC, BMP, MG #### [address] WBC (Bld) [#/Vol] 9.3 10*3/uL Normal 3.8-11.6 [facility] Comment on above: Performed By: #### C BC, BMP, MG #### [address] Glucose Poct Glucometerson 0 03-13-2023 Commemt1 Glu2: Cleaned Meter Normal [facility] Comment on above: Result Comment: PERF ORMED BY: [place] [address] PATHOLOGIST STAFF APPRAISER WAYNE WAKEFIELD M.D. Performed By: #### V ANCT #### [address] Glucose [Mass/Vol] 152 mg/dL Normal [facility] Comment on above: Result Comment: [place] om Glucose Reference Range is dependent on time and content of last meal. Glucose of more than 200 mg/dL in a nonstressed, ambulatory subject supports the diagnosis of Diabetes Mellitus. Performed By: #### V ANCT #### [address] Glucose [Mass/Vol] 190 mg/dL Normal [facility] Comment on above: Result Comment: [place] om Glucose Reference Range is dependent on time and content of last meal. Glucose of more than 200 mg/dL in a nonstressed, ambulatory subject supports the diagnosis of Diabetes Mellitus. PERFORMED BY: [place] [address] PATHOLOGIST STAFF APPRAISER JIANLAN SUN M.D. Performed By: #### G LULS #### Point of Care testing , Glucose [Mass/Vol] 176 mg/dL Normal [facility] Comment on above: Result Comment: [facility] Glucose Reference Range is dependent on time and content of last meal. Glucose of more than 200 mg/dL in a nonstressed, ambulatory subject supports the diagnosis of Diabetes Mellitus. PERFORMED BY: [facility] [address] [place] [address] PATHOLOGIST STAFF APPRAISER WAYNE WAKEFIELD M.D. Performed By: #### G LULS #### Point of Care testing , Glucose [Mass/Vol] 107 mg/dL Normal [facility] Comment on above: Result Comment: [facility] Glucose Reference Range is dependent on time and content of last meal. Glucose of more than 200 mg/dL in a nonstressed, ambulatory subject supports the diagnosis of Diabetes Mellitus. PERFORMED BY: [facility] [address] [facility] [place] [address] PATHOLOGIST STAFF APPRAISER WAYNE WAKEFIELD M.D. Performed By: #### G LULS #### Point of Care testing , Glucose [Mass/Vol] 101 mg/dL Normal [facility] Comment on above: Result Comment: [facility] Glucose Reference Range is dependent on time and content of last meal. Glucose of more than 200 mg/dL in a nonstressed, ambulatory subject supports the diagnosis of Diabetes Mellitus. PERFORMED BY: [address] [place] [place] [address] PATHOLOGIST STAFF APPRAISER WAYNE WAKEFIELD M.D. Performed By: #### G LULS #### Point of Care testing , Serum or plasma trough vanco mycin levelOrdered By: Eron Wood on 03-13-2023 Vancomycin trough [Mass/Vol] 16.8 ug/mL 10.0-20.0 [facility] Comment on above: Last dose: - Vancomycin,Troughon 03-13-20 Vancomycin,Trough 16.8 ug/mL [facility] Comment on above: Result Comment: Last dose: - PERFORMED BY: [facility] [address] [place] [address] PATHOLOGIST STAFF APPRAISER WAYNE WAKEFIELD M.D. Performed By: #### G LULS #### Point of Care testing , Ammoniaon 03-12-2023 Ammonia (P) [Moles/Vol] 31 umol/L Normal [facility] Comment on above: Result Comment: PERF ORMED BY: [facility] [address] [place] [address] PATHOLOGIST STAFF APPRAISER WAYNE WAKEFIELD M.D. Performed By: #### G LULS #### Point of Care testing , Ammonia [Moles/volume] in Pl asmaOrdered By: Víctor Stallings on 03-12-2023 Ammonia (P) [Moles/Vol] 31 umol/L [facility] Amphetamine Screen Ql (U)Ord ered By: Eron Wood on 03-12-2023 Amphetamines Ql (U) Negative Negative [facility] Barbiturates [Presence] in U rine by Screen methodOrdered By: Eron Wood on 03-12-2023 Barbiturates Screen Ql (U) Negative Negative [facility] Basic Metabolic Panelon 02-14 Anion gap [Moles/Vol] 9.5 mmol/L Normal 6.0-15.0 [facility] Comment on above: Performed By: #### G LULS #### Point of Care testing , Calcium [Mass/Vol] 8.2 mg/dL Low 8.6-10.3 [facility] Comment on above: Performed By: #### G LULS #### Point of Care testing , Chloride [Moles/Vol] 109 mmol/L High 98-107 [facility] Comment on above: Performed By: #### G LULS #### Point of Care testing , CO2 [Moles/Vol] 23.3 mmol/L Normal 21.0-31.0 [facility] Comment on above: Performed By: #### G LULS #### Point of Care testing , Creatinine [Mass/Vol] 0.73 mg/dL Normal 0.60-1.20 [facility] Comment on above: Performed By: #### G LULS #### Point of Care testing , Creatinine Clr Calc Pharmacy 111.29 [facility] Comment on above: Result Comment: PERF ORMED BY: [facility] [address] [place] [address] PATHOLOGIST STAFF APPRAISER WAYNE WAKEFIELD M.D. Performed By: #### G LULS #### Point of Care testing , GFR/1.73 sq M.predicted MDRD (S/P/Bld) [Vol rate/Area] mL/min/{1.73_m2} [facility] Comment on above: Performed By: #### G LULS #### Point of Care testing , Glucose [Mass/Vol] 62 mg/dL Low 70-100 [facility] Comment on above: Result Comment: [place] Glucose Reference Range is dependent on time and content of last meal. Glucose of more than 200 mg/dL in a nonstressed, ambulatory subject supports the diagnosis of Diabetes Mellitus. ADA recommended reference range Performed By: #### G LULS #### Point of Care testing , Potassium [Moles/Vol] 3.8 mmol/L Normal 3.5-5.1 [facility] Comment on above: Performed By: #### G LULS #### Point of Care testing , Sodium [Moles/Vol] 138 mmol/L Normal 136-145 [facility] Comment on above: Performed By: #### G LULS #### Point of Care testing , Urea nitrogen [Mass/Vol] 8 mg/dL Normal 7-25 [facility] Comment on above: Performed By: #### G LULS #### Point of Care testing , Benzodiazepines Screen Ql (U )Ordered By: Eron Wood on 03-12-2023 Benzodiazepines Ql (U) Negative Negative [facility] Benzoylecgonine [Presence] i n Urine by Screen methodOrdered By: Eron Wood on 03-12-2023 Benzoylecgonine Screen Ql (U) Negative Negative [facility] CT head/brain wo conon 03-12 CT head/brain wo con [facility] [address] [address] [address] Scan Report Signed Patient: Christiane Perez MR#: [id number] 2 : 1975 Acct:[id number] Age/Sex: 48 / F ADM Date: 03/10/23 Loc: Room: [address] [place] [address] Type: ADM IN Attending Dr: Eron Wood [...] Vick Eden M.D.03/12/2023 4:47 PM Dictation Location: [place] [address] Transcribed By: [facility] 03/12/23 1647 Dictated By: Vick Eden II, MD 03/12/23 1646 Signed By: 03/12/23 164 Normal [facility] Calciumon 03-12-2023 Calcium [Mass/Vol] 8.4 mg/dL Low 8.6-10.3 [facility] Comment on above: Result Comment: PERF ORMED BY: [address] [address] PATHOLOGIST STAFF APPRAISER WAYNE WAKEFIELD M.D. Performed By: #### G MARE #### Point of Care testing , Cannabinoids [Presence] in U rine by Screen methodOrdered By: Eron Wood on 03-12-2023 Cannabinoids Screen Ql (U) Negative Negative [facility] Comment on above: These are unconfirme d results and should not be used for legal purposes. Drug Cut-Off Concentration: AMPH 1000 ng/mL HANNAH 200 ng/mL JENNIFER 200 ng/mL COCM 300 ng/mL OP 300 ng/mL PCP 25 ng/mL THC 20 ng/mL Complete Blood Count Auto Di ffon 03-12-2023 Basophils (Bld) [#/Vol] 0.1 10*3/uL Normal 0.0-0.2 [facility] Comment on above: Result Comment: PERF ORMED BY: [facility] [address] [place] [address] PATHOLOGIST STAFF APPRAISER WAYNE WAKEFIELD M.D. Performed By: #### G LULS #### Point of Care testing , Basophils/100 WBC (Bld) 0.7 % Normal . [facility] Comment on above: Performed By: #### G LULS #### Point of Care testing , Eosinophils (Bld) [#/Vol] 0.3 10*3/uL Normal 0.0-0.45 [facility] Comment on above: Performed By: #### G LULS #### Point of Care testing , Eosinophils/100 WBC (Bld) 2.9 % Normal . [facility] Comment on above: Performed By: #### G LULS #### Point of Care testing , Erythrocyte distribution width (RBC) [Ratio] 15.8 % High 11.9-15.3 [facility] Comment on above: Performed By: #### G LULS #### Point of Care testing , Hematocrit (Bld) [Volume fraction] 35.6 % Normal 34.0-46.4 [facility] Comment on above: Performed By: #### G LULS #### Point of Care testing , Hemoglobin (Bld) [Mass/Vol] 11.8 g/dL Normal 11.8-15.4 [facility] Comment on above: Performed By: #### G MARYLS #### Point of Care testing , Lymphocytes (Bld) [#/Vol] 1.3 10*3/uL Normal 1.00-4.8 [facility] Comment on above: Performed By: #### G MARYLS #### Point of Care testing , Lymphocytes/100 WBC (Bld) 13.5 % Normal . [facility] Comment on above: Performed By: #### G MARYLS #### Point of Care testing , MCH (RBC) [Entitic mass] 32.4 pg Normal 24.7-34.3 [facility] Comment on above: Performed By: #### G MARYLS #### Point of Care testing , MCV (RBC) [Entitic vol] 97.7 fL Normal 80-100 [facility] Comment on above: Performed By: #### Sophia HERNANDEZLS #### Point of Care testing , Mean Corpuscular HGB Conc 33.1 g/dL Normal 32.0-35.0 [facility] Comment on above: Performed By: #### G MARE #### Point of Care testing , Monocytes (Bld) [#/Vol] 0.9 10*3/uL High 0.0-0.8 [facility] Comment on above: Performed By: #### G MARYLS #### Point of Care testing , Monocytes/100 WBC (Bld) 9.2 % Normal . [facility] Comment on above: Performed By: #### G MARYLS #### Point of Care testing , Neutrophils (Bld) [#/Vol] 7.2 10*3/uL Normal 1.8-7.7 [facility] Comment on above: Performed By: #### G MARYLS #### Point of Care testing , Neutrophils/100 WBC (Bld) 73.7 % Normal . [facility] Comment on above: Performed By: #### G MARYLS #### Point of Care testing , NRBC% 0.1 /100{WBC} Normal 0-0.5 [facility] Comment on above: Performed By: #### G LULS #### Point of Care testing , Platelet mean volume (Bld) [Entitic vol] 6.8 fL Normal 6.3-10.7 [facility] Comment on above: Performed By: #### G LULS #### Point of Care testing , Platelets (Bld) [#/Vol] 342 10*3/uL Normal 150-450 [facility] Comment on above: Performed By: #### G LULS #### Point of Care testing , RBC (Bld) [#/Vol] 3.64 10*6/uL Normal 3.60-5.00 [facility] Comment on above: Performed By: #### G LULS #### Point of Care testing , WBC (Bld) [#/Vol] 9.8 10*3/uL Normal 3.8-11.6 [facility] Comment on above: Performed By: #### G LULS #### Point of Care testing , Drug Screen,Urineon 03-12-20 23 Amphetamine Screen,Urine Negative Normal Negative [facility] Comment on above: Performed By: #### C BC, BMP, MG #### [facility] [address] [place] [address] [place] Barbiturate Screen,Urine Negative Normal Negative [facility] Comment on above: Performed By: #### C BC, BMP, MG #### [facility] [address] [place] [address] [place] Benzodiazepines Screen,Urine Negative Normal Negative [facility] Comment on above: Performed By: #### C BC, BMP, MG #### [facility] [address] [place] [address] [place] Cannabinoid Screen,Urine Negative Normal Negative [facility] Comment on above: Result Comment: Thes e are unconfirmed results and should not be used for legal purposes. Drug Cut-Off Concentration: AMPH 1000 ng/mL HANNAH 200 ng/mL JENNIFER 200 ng/mL COCM 300 ng/mL OP 300 ng/mL PCP 25 ng/mL THC 20 ng/mL PERFORMED BY: [place] [address] PATHOLOGIST STAFF APPRAISER WAYNE WAKEFIELD M.D. Performed By: #### C BC, BMP, MG #### [facility] [address] Cocaine Screen,Urine Negative Normal Negative [facility] Comment on above: Performed By: #### C BC, BMP, MG #### [facility] [address] [place] [address] [place] Opiate Screen,Urine Positive High Negative [facility] Comment on above: Performed By: #### C BC, BMP, MG #### [facility] [address] [place] [address] Phencyclidine Screen,Urine Negative Normal Negative [facility] Comment on above: Performed By: #### C BC, BMP, MG #### [address] Glucose Poct Glucometerson 0 03-12-2023 Commemt1 Glu2: Cleaned Meter Normal [facility] Comment on above: Result Comment: PERF ORMED BY: [place] [address] PATHOLOGIST STAFF APPRAISER WAYNE WAKEFIELD M.D. Performed By: #### C BC, BMP, MG #### [address] Glucose [Mass/Vol] 199 mg/dL Normal [facility] Comment on above: Result Comment: [facility] Glucose Reference Range is dependent on time and content of last meal. Glucose of more than 200 mg/dL in a nonstressed, ambulatory subject supports the diagnosis of Diabetes Mellitus. Performed By: #### C BC, BMP, MG #### [facility] [address] [place] [address] Glucose [Mass/Vol] 158 mg/dL Normal [facility] Comment on above: Result Comment: [facility] Glucose Reference Range is dependent on time and content of last meal. Glucose of more than 200 mg/dL in a nonstressed, ambulatory subject supports the diagnosis of Diabetes Mellitus. PERFORMED BY: [facility] [address] [facility] [place] [address] PATHOLOGIST STAFF APPRAISER WAYNE WAKEFIELD M.D. Performed By: #### G LULS #### Point of Care testing , Glucose [Mass/Vol] 152 mg/dL Normal [facility] Comment on above: Result Comment: [place] Glucose Reference Range is dependent on time and content of last meal. Glucose of more than 200 mg/dL in a nonstressed, ambulatory subject supports the diagnosis of Diabetes Mellitus. PERFORMED BY: [address] [place] [place] [address] PATHOLOGIST STAFF APPRAISER WAYNE WAKEFIELD M.D. Performed By: #### G LULS #### Point of Care testing , Commemt1 Glu2: Cleaned Meter Normal [facility] Comment on above: Result Comment: PERF ORMED BY: [address] [place] [address] PATHOLOGIST STAFF APPRAISER WAYNE WAKEFIELD M.D. Performed By: #### G LULS #### Point of Care testing , Glucose [Mass/Vol] 75 mg/dL Normal [facility] Comment on above: Result Comment: [facility] Glucose Reference Range is dependent on time and content of last meal. Glucose of more than 200 mg/dL in a nonstressed, ambulatory subject supports the diagnosis of Diabetes Mellitus. Performed By: #### G LULS #### Point of Care testing , Opiates [Presence] in Urine by Screen methodOrdered By: Eron Wood on 03-12-2023 Opiates Screen Ql (U) Positive Negative [facility] Phencyclidine Screen Ql (U)O rdered By: Eron Wood on 03-12-2023 Phencyclidine Ql (U) Negative Negative [facility] Vancomycin [Mass/volume] in Serum or Plasma --peakOrdered By: Eron Wood on 03-12-2023 Vancomycin peak [Mass/Vol] 14.6 ug/mL 20.0-40.0 [facility] Comment on above: Last dose: - Vancomycin,Peakon 03-12-2023 Vancomycin,Peak 14.6 ug/mL Low 20.0-40.0 [facility] Comment on above: Order Comment: Comme nt ?DRAW 1 HOUR AFTER INFUSION COMPLETES Date of last dose?: [id number] Time of last dose?: 1500 Result Comment: Last dose: - PERFORMED BY: [place] [address] PATHOLOGIST STAFF APPRAISER WAYNE WAKEFIELD M.D. Performed By: #### G LULS #### Point of Care testing , Vancomycin,Troughon 03-12-20 Vancomycin,Trough 17.8 ug/mL [facility] Comment on above: Result Comment: Last dose: - PERFORMED BY: [place] [address] PATHOLOGIST STAFF APPRAISER WAYNE WAKEFIELD M.D. Performed By: #### V ANCT #### [address] XR chest 1V portableon 03-12 XR chest 1V portable [facility] [address] [place] [address] XRay Report Signed Patient: Christiane Perez MR#: [id number] 2 : 1975 Acct:[id number] Age/Sex: 48 / F ADM Date: 03/10/23 Loc: Room: [address] [place] [address] Type: ADM IN Attending Dr: Eron Wood [...] II, MD 03/12/231616 Signed By: 03/12/23 161 [facility] XR chest 1V portable [place] [address] XRay Report Signed Patient: Christiane Perez MR#: [id number] 2 : 1975 Acct:[id number] Age/Sex: 48 / F ADM Date: 03/10/23 Loc: Room: [address] [place] [address] Type: ADM IN Attending Dr: Eron Wood [...] MD 03/12/23 135 Signed By: 03/12/23 135 [facility] AFB Specimen Processingon AFB Specimen Processing Concentration Negative Performed at: [address] [id number] Retail Store Manager: Jaun Jennings PhD, Phone: [phone] Negative No acid fast bacilli isolated after 6 weeks. Performed at: [address] [id number] Retail Store Manager: Juan Jennings PhD, Phone: [phone] PERFORMED BY: [place] [address] PATHOLOGIST STAFF APPRAISER WAYNE WAKEFIELD M.D. [facility] Comment on above: Performed By: #### G LULS #### Point of Care testing , Aerobic Cultureon 03-11-2023 Aerobic Culture ORGANISM: Janine tropicalis (O:CANTRO) Quantity of Growth Light Growth ORGANISM: Janine albicans (O:CANALB) Quantity of Growth Light Growth Gram Stain Result 1+ White Blood Cells Rare Epithelial Cells Rare Gram Positive Bacilli Rare Gram Positive Cocci 1+ Yeast Like Elements PERFORMED BY: [place] [address] PATHOLOGIST STAFF APPRAISER WAYNE WAKEFIELD M.D. [facility] Comment on above: Performed By: #### A ERC #### [facility] [address] [place] [address] [place] Bacteria identified Aer cx N om (Bronch spec)Ordered By: Errol Nicole on 03-11-2023 Bronchial Culture Janine tropicalis [facility] Bronchial Culture Janine albicans F [facility] Basic Metabolic Panelon 02-14 Anion gap [Moles/Vol] 8.9 mmol/L Normal 6.0-15.0 [facility] Comment on above: Performed By: #### C BC, BMP, MG #### [facility] [address] [place], [place] [address] [place] Calcium [Mass/Vol] 8.4 mg/dL Low 8.6-10.3 [facility] Comment on above: Performed By: #### C BC, BMP, MG #### [facility] [address] [place], [place] [address] [place] Chloride [Moles/Vol] 107 mmol/L Normal 98-107 [facility] Comment on above: Performed By: #### C BC, BMP, MG #### [facility] [address] [place], [place] [address] [place] CO2 [Moles/Vol] 25.0 mmol/L Normal 21.0-31.0 [facility] Comment on above: Performed By: #### C BC, BMP, MG #### [facility] [address] [place] [address] [place] Creatinine [Mass/Vol] 0.72 mg/dL Normal 0.60-1.20 [facility] Comment on above: Performed By: #### C BC, BMP, MG #### [facility] [address] [place] [address] [place] Creatinine Clr Calc Pharmacy 112.35 [facility] Comment on above: Performed By: #### C BC, BMP, MG #### [facility] [address] [place] [address] [place] GFR/1.73 sq M.predicted MDRD (S/P/Bld) [Vol rate/Area] mL/min/{1.73_m2} [facility] Comment on above: Performed By: #### C BC, BMP, MG #### [facility] [address] Glucose [Mass/Vol] 120 mg/dL High 70-100 [facility] Comment on above: Result Comment: [facility] Glucose Reference Range is dependent on time and content of last meal. Glucose of more than 200 mg/dL in a nonstressed, ambulatory subject supports the diagnosis of Diabetes Mellitus. ADA recommended reference range Performed By: #### C BC, BMP, MG #### [facility] [address] [place] [address] [place] Potassium [Moles/Vol] 3.9 mmol/L Normal 3.5-5.1 [facility] Comment on above: Performed By: #### C BC, BMP, MG #### [facility] [address] [place] [address] [place] Sodium [Moles/Vol] 137 mmol/L Normal 136-145 [facility] Comment on above: Performed By: #### C BC, BMP, MG #### [facility] [address] [place] [address] [place] Urea nitrogen [Mass/Vol] 10 mg/dL Normal 7-25 [facility] Comment on above: Performed By: #### C BC, BMP, MG #### [address] Bronch Cultureon 03-11-2023 Bronch Culture ORGANISM: Janine tropicalis (O:CANTRO) Quantity of Growth Light Growth ORGANISM: Janine albicans (O:CANALB) Quantity of Growth Light Growth PERFORMED BY: [place] [address] PATHOLOGIST STAFF APPRAISER WAYNE WAKEFIELD M.D. Normal [facility] Comment on above: Performed By: #### G LULS #### Point of Care testing , Complete Blood Count Auto Di ffon 03-11-2023 Basophils (Bld) [#/Vol] 0.0 10*3/uL Normal 0.0-0.2 [facility] Comment on above: Result Comment: PERF ORMED BY: [place] [address] PATHOLOGIST STAFF APPRAISER WAYNE WAKEFIELD M.D. Performed By: #### C BC, BMP, MG #### [address] Basophils/100 WBC (Bld) 0.3 % Normal . [facility] Comment on above: Performed By: #### C BC, BMP, MG #### [address] Eosinophils (Bld) [#/Vol] 0.2 10*3/uL Normal 0.0-0.45 [facility] Comment on above: Performed By: #### C BC, BMP, MG #### [address] Eosinophils/100 WBC (Bld) 2.1 % Normal . [facility] Comment on above: Performed By: #### C BC, BMP, MG #### [address] Erythrocyte distribution width (RBC) [Ratio] 15.9 % High 11.9-15.3 [facility] Comment on above: Performed By: #### C BC, BMP, MG #### [facility] [address] Hematocrit (Bld) [Volume fraction] 36.2 % Normal 34.0-46.4 [facility] Comment on above: Performed By: #### C JOE SANABRIA, MG #### [address] Hemoglobin (Bld) [Mass/Vol] 11.9 g/dL Normal 11.8-15.4 [facility] Comment on above: Performed By: #### C DANIELE BMP, MG #### [address] Lymphocytes (Bld) [#/Vol] 1.1 10*3/uL Normal 1.00-4.8 [facility] Comment on above: Performed By: #### C DANIELE BMP, MG #### [address] Lymphocytes/100 WBC (Bld) 9.5 % Normal . [facility] Comment on above: Performed By: #### C DANIELE BMP, MG #### [address] MCH (RBC) [Entitic mass] 31.9 pg Normal 24.7-34.3 [facility] Comment on above: Performed By: #### C DANIELE BMP, MG #### [address] MCV (RBC) [Entitic vol] 97.5 fL Normal 80-100 [facility] Comment on above: Performed By: #### C DANIELE BMP, MG #### [address] Mean Corpuscular HGB Conc 32.8 g/dL Normal 32.0-35.0 [facility] Comment on above: Performed By: #### C BC BMP, MG #### [address] Monocytes (Bld) [#/Vol] 1.0 10*3/uL High 0.0-0.8 [facility] Comment on above: Performed By: #### C BC BMP, MG #### [facility] [address] [place] [address] [place] Monocytes/100 WBC (Bld) 8.9 % Normal . [facility] Comment on above: Performed By: #### C BC, BMP, MG #### [facility] [address] [place] [address] [place] Neutrophils (Bld) [#/Vol] 9.3 10*3/uL High 1.8-7.7 [facility] Comment on above: Performed By: #### C BC, BMP, MG #### [facility] [address] Neutrophils/100 WBC (Bld) 79.2 % Normal . [facility] Comment on above: Performed By: #### C BC, BMP, MG #### [facility] [address] NRBC% 0.0 /100{WBC} Normal 0-0.5 [facility] Comment on above: Performed By: #### C BC, BMP, MG #### [facility] [address] [place] [address] [place] Platelet mean volume (Bld) [Entitic vol] 7.1 fL Normal 6.3-10.7 [facility] Comment on above: Performed By: #### C BC, BMP, MG #### [facility] [address] [place] [address] [place] Platelets (Bld) [#/Vol] 360 10*3/uL Normal 150-450 [facility] Comment on above: Performed By: #### C BC, BMP, MG #### [facility] [address] [place] [address] [place] RBC (Bld) [#/Vol] 3.72 10*6/uL Normal 3.60-5.00 [facility] Comment on above: Performed By: #### C BC, BMP, MG #### [facility] [address] [place] [address] [place] WBC (Bld) [#/Vol] 11.7 10*3/uL High 3.8-11.6 [facility] Comment on above: Performed By: #### C BC, BMP, MG #### [facility] [address] Fungal cultureOrdered By: Corrina Nicole on 03-11-2023 Fungus identified Cx Nom (Unsp spec) [facility] Fungus # 2 identified in Uns pecified specimen by CultureOrdered By: Errol Nicole on 03-11-2023 Fungus identified # 2 Cx Nom (Unsp spec) [facility] Fungus # 3 identified in Uns pecified specimen by CultureOrdered By: Errol Nicole on 03-11-2023 Fungus identified # 3 Cx Nom (Unsp spec) [facility] Fungus (Mycology) Cultureon 03-11-2023 Fungus (Mycology) Culture Preliminary report Final report Janine glabrata Janine tropicalis Performed at: [place] [address] Retail Store Manager: Juan Jennings PhD, Phone: [phone] Janine albicans Performed at: [place] [address] Retail Store Manager: Juan Jennings PhD, Phone: [phone] PERFORMED BY: [place] [address] PATHOLOGIST STAFF APPRAISER WAYNE WAKEFIELD M.D. [facility] Comment on above: Performed By: #### G LULS #### Point of Care testing , Fungus (Mycology) Result 2on 03-11-2023 Fungus (Mycology) Result 2 Janine tropicalis Performed at: [place] [address] Retail Store Manager: Juan Jennings PhD, Phone: [phone] Janine albicans Performed at: [place] [address] Retail Store Manager: Juan Jennings PhD, Phone: [phone] PERFORMED BY: [facility] [address] [place] [address] PATHOLOGIST STAFF APPRAISER WAYNE WAKEFIELD M.D. [facility] Comment on above: Performed By: #### G LULS #### Point of Care testing , Glucose Poct Glucometerson 0 03-11-2023 Commemt1 Glu2: Cleaned Meter [facility] Comment on above: Result Comment: PERF ORMED BY: [address] [place] [address] PATHOLOGIST STAFF APPRAISER WAYNE WAKEFIELD M.D. Performed By: #### G LULS #### Point of Care testing , Glucose [Mass/Vol] 121 mg/dL Normal [facility] Comment on above: Result Comment: [place] om Glucose Reference Range is dependent on time and content of last meal. Glucose of more than 200 mg/dL in a nonstressed, ambulatory subject supports the diagnosis of Diabetes Mellitus. Performed By: #### G LULS #### Point of Care testing , Commemt1 Glu2: Cleaned Meter [facility] Comment on above: Result Comment: PERF ORMED BY: [place] [address] PATHOLOGIST STAFF APPRAISER WAYNE WAKEFIELD M.D. Performed By: #### G LULS #### Point of Care testing , Glucose [Mass/Vol] 80 mg/dL Normal [facility] Comment on above: Result Comment: [place] om Glucose Reference Range is dependent on time and content of last meal. Glucose of more than 200 mg/dL in a nonstressed, ambulatory subject supports the diagnosis of Diabetes Mellitus. Performed By: #### G LULS #### Point of Care testing , Glucose [Mass/Vol] 134 mg/dL Normal [facility] Comment on above: Result Comment: [place] om Glucose Reference Range is dependent on time and content of last meal. Glucose of more than 200 mg/dL in a nonstressed, ambulatory subject supports the diagnosis of Diabetes Mellitus. PERFORMED BY: [address] [place] [address] PATHOLOGIST STAFF APPRAISER WAYNE WAKEFIELD M.D. Performed By: #### G LULS #### Point of Care testing , Commemt1 [facility] Comment on above: Result Comment: Glu2 : WILL NOTIFY DR/RN PERFORMED BY: [address] [place] [address] PATHOLOGIST STAFF APPRAISER WAYNE WAKEFIELD M.D. Performed By: #### G LULS #### Point of Care testing , Glucose [Mass/Vol] 58 mg/dL Off scale low Fir [facility] Comment on above: Result Comment: [place] om Glucose Reference Range is dependent on time and content of last meal. Glucose of more than 200 mg/dL in a nonstressed, ambulatory subject supports the diagnosis of Diabetes Mellitus. Performed By: #### G LULS #### Point of Care testing , Commemt1 Glu2: Cleaned Meter Normal [facility] Comment on above: Result Comment: PERF ORMED BY: [address] [place] [address] PATHOLOGIST STAFF APPRAISER WAYNE WAKEFIELD M.D. Performed By: #### G LULS #### Point of Care testing , Glucose [Mass/Vol] 249 mg/dL Normal [facility] Comment on above: Result Comment: [place] om Glucose Reference Range is dependent on time and content of last meal. Glucose of more than 200 mg/dL in a nonstressed, ambulatory subject supports the diagnosis of Diabetes Mellitus. Performed By: #### G LULS #### Point of Care testing , Glucose [Mass/Vol] 138 mg/dL Normal [facility] Comment on above: Result Comment: [place] om Glucose Reference Range is dependent on time and content of last meal. Glucose of more than 200 mg/dL in a nonstressed, ambulatory subject supports the diagnosis of Diabetes Mellitus. PERFORMED BY: [address] [place] [address] PATHOLOGIST STAFF APPRAISER WAYNE WAKEFIELD M.D. Performed By: #### G LULS #### Point of Care testing , Gram Stainon 03-11-2023 Microscopic observation Gram stain Nom (Unsp spec) Gram Stain Result 1+ White Blood Cells 1+ Yeast Like Elements No Bacteria Seen Fungus Smear Results 1+ Yeast Like Elements Seen PERFORMED BY: [address] [place] [id number] PATHOLOGIST STAFF APPRAISER WAYNE WAKEFIELD M.D. [facility] Comment on above: Performed By: #### G MARE #### Point of Care testing , [place] 03-11-2023 L ----- Specimen: [id number] Received: 03/12/23 Status: DAY St Num: [id number] Spec Type: Cytology Subm Dr: Errol Nicole MD Tissues: A BRONWASH ([facility]) Procedures: HE/2, Gross/Micro L4, Cyto Prepstain, PAPSTN Age/ Patient Sex Location Account Attending Physician Christiane Perez 48/F 3T [id number] Krunal Kelly DO SPEC NUM: [id number] RECD: 03/12/23 STATUS: DAY ST NUM: [id number] HARRY: 03/11/[address]: Errol Nicole MD ENTERED: 03/12/[address] [facility] DR: SPEC TYPE: Cytology DEPT: CN ENTERED BY: [id number] RECV BY: [id number] ORDERED: HE/2, Gross/Micro L4, Cyto Prepstain, PAPSTN ORDERED: HE/2, Gross/Micro L4, Cyto Prepstain, PAPSTN Pathological Diagnosis Bronchial wash, cytology: - Negative for malignancy, inflammatory process - See note and pathology report [id number] Note: Smear and cell block shows many [...] [id number] Received: 03/12/23 Status: DAY Martioscar Num: [id number] Spec Type: Cytology Subm Dr: Errol Nicole MD Tissues: A BRONWASH ([facility]) Procedures: HE/2, Gross/Micro L4, Cyto Prepstain, PAPSTN Patient: Christiane Perez Neto [id number] (Continued) Signed (signature on file) Gregory Aranda MD 03/17/23820 [facility] L ----- Specimen: [id number] Received: 03/11/23 Status: DAY St Num: [id number] Spec Type: Surgical Subm Dr: Errol Nicole MD Tissues: A Lung - Transbroncial Biopsy ([facility]) Procedures: ISIDRA SONG, HE/5, Gross/Micro L4, GMS II ARMANI Oquendo Age/ Patient Sex Location Account Attending Physician Christiane Perez 48/F 3T [id number] Krunal Kelly DO SPEC NUM: [id number] RECD: 03/11/23 STATUS: DAY REOscar NUM: [id number] HARRY: 03/11/23- DR: Errol Nicole MD ENTERED: [...] negative. This case will send to the [facility] for consultation and second opinion and the result will be reported as an addendum. Specimen: [id number] Received: 03/11/23 Status: DAY St Num: [id number] Spec Type: Surgical Subm Dr: Errol Nicole MD Tissues: A Lung - Transbroncial Biopsy ([facility]) Procedures: PAS - LGRN, HE/5, Gross/Micro L4, GMS II Dark, AFB Patient: PerezChristiane [id number] (Continued) Specimen: [id number] Received: 03/11/23 (Continued) Signed (signature on file) Gregory Aranda MD 03/17/2312 Specimen: [id number] Received: 03/11/23 Status: DAY St Num: [id number] Spec Type: Surgical Subm Dr: Errol Nicole MD Tissues: A Lung - Transbroncial Biopsy ([facility]) Procedures: ISIDRA - NOHEMI, HE/5, Gross/Micro L4, GMS II Dark, AFB Patient: Christiane Perez [id number] (Continued) Specimen: [id number] Received: 03/11/23 (Continued) Clinical Information Abscess Gross Description Received in formalin labeled with the patient's name, date of and [facility] biopsies are multiple villegas tissues measuring 1.5 x 0.3 x 0.2 cm in aggregate. Entirely submitted in one cassette labeled A1. Microscopic Description Two H E slides reviewed. The microscopic examination confirms the diagnosis. CPT Codes 53154 Specimen: [id number] Received: 03/11/23 Status: DAY Martioscar Num: [id number] Spec Type: Surgical Subm Dr: Errol Nicole MD Tissues: A Lung - Transbroncial Biopsy ([facility]) Procedures: ISIDRA SONG, HE/5, Gross/Micro L4, GMS II ARMANI Oquendo Patient: Christiane Perez [id number] (Continued) Signed (signature on file) Gregory Aranda MD 03/17/23811 Normal [facility] Magnesiumon 03-11-2023 Magnesium [Mass/Vol] 1.9 mg/dL Normal 1.9-2.7 [facility] Comment on above: Result Comment: PERF ORMED BY: [place] [address] PATHOLOGIST STAFF APPRAISER WAYNE WAKEFIELD M.D. Performed By: #### C BC, BMP, MG #### [facility] [facility] [address] [place], [place] [id number] [facility] Magnesium [Mass/volume] in S kaitlin or PlasmaOrdered By: Eron Wood on 03-11-2023 Magnesium [Mass/Vol] 1.9 mg/dL 1.9-2.7 [facility] Vancomycin,Peakon 03-11-2023 Vancomycin,Peak 12.5 ug/mL Low 20.0-40.0 [facility] Comment on above: Order Comment: Comme nt ?DRAW 1 HOUR AFTER INFUSION COMPLETES Date of last dose?: [id number] Time of last dose?: 1500 Result Comment: Last dose: - PERFORMED BY: [place] [address] PATHOLOGIST STAFF APPRAISER WAYNE WAKEFIELD M.D. Performed By: #### G MARE #### Point of Care testing , Activated partial thrombopla stin time (aPTT) in platelet poor plasma by coagulation aOrdered By: Lavell Salazra on 03-10-2023 aPTT Coag (PPP) [Time] 40.2 s 25.1-36.5 [facility] B-Type Natriuretic Peptideon 03-10-2023 Natriuretic peptide B (Bld) [Mass/Vol] 46.0 pg/mL Normal 5-100 [facility] Comment on above: Result Comment: PERF ORMED BY: [place] [address] PATHOLOGIST STAFF APPRAISER WAYNE WAKEFIELD M.D. Performed By: #### C BC, BMP, MG #### [facility] [address] [place], [place] [id number] [facility] Bacterial blood cultureOrder ed By: Lavell Salazar on 03-10-2023 Bacteria identified Cx Nom (Bld) NO GROWTH 5 DAYS [facility] Basic Metabolic Panelon 02-14 Anion gap [Moles/Vol] 11.3 mmol/L Normal 6.0-15.0 [facility] Comment on above: Performed By: #### C BC, BMP, MG #### [facility] [address] Calcium [Mass/Vol] 8.9 mg/dL Normal 8.6-10.3 [facility] Comment on above: Performed By: #### C BC, BMP, MG #### [facility] [address] [place] [address] [place] Chloride [Moles/Vol] 103 mmol/L Normal 98-107 [facility] Comment on above: Performed By: #### C BC, BMP, MG #### [facility] [address] CO2 [Moles/Vol] 24.2 mmol/L Normal 21.0-31.0 [facility] Comment on above: Performed By: #### C BC, BMP, MG #### [facility] [address] [place] [address] [place] Creatinine [Mass/Vol] 0.70 mg/dL Normal 0.60-1.20 [facility] Comment on above: Performed By: #### C BC, BMP, MG #### [facility] [address] [place] [address] [place] Creatinine Clr Calc Pharmacy 117.33 [facility] Comment on above: Result Comment: PERF ORMED BY: [place] [address] PATHOLOGIST STAFF APPRAISER WAYNE WAKEFIELD M.D. Performed By: #### C BC, BMP, MG #### [facility] [address] [place] [address] [place] GFR/1.73 sq M.predicted MDRD (S/P/Bld) [Vol rate/Area] mL/min/{1.73_m2} [facility] Comment on above: Performed By: #### C BC BMP, MG #### [facility] [address] Glucose [Mass/Vol] 69 mg/dL Low 70-100 [facility] Comment on above: Result Comment: [facility] Glucose Reference Range is dependent on time and content of last meal. Glucose of more than 200 mg/dL in a nonstressed, ambulatory subject supports the diagnosis of Diabetes Mellitus. ADA recommended reference range Performed By: #### C BC BMP, MG #### [address] Potassium [Moles/Vol] 3.5 mmol/L Normal 3.5-5.1 [facility] Comment on above: Performed By: #### C BC BMP, MG #### [address] Sodium [Moles/Vol] 135 mmol/L Low 136-145 [facility] Comment on above: Performed By: #### C BC BMP, MG #### [address] Urea nitrogen [Mass/Vol] 10 mg/dL Normal 7-25 [facility] Comment on above: Performed By: #### C BC BMP, MG #### [place] [address] [place] Bilirubin.direct [Mass/volum e] in Serum or PlasmaOrdered By: Lavell Salazar on 03-10-2023 Bilirubin.direct [Mass/Vol] 0.20 mg/dL 0.03-0.18 [facility] Blood Cultureon 03-10-2023 Bacteria identified Cx Nom (Bld) NO GROWTH 5 DAYS PERFORMED BY: [place] [address] PATHOLOGIST STAFF APPRAISER WAYNE WAKEFIELD M.D. [facility] Comment on above: Performed By: #### C BC, BMP, MG #### [address] Bacteria identified Cx Nom (Bld) NO GROWTH 5 DAYS PERFORMED BY: [address] [place] [address] PATHOLOGIST STAFF APPRAISER WAYNE WAKEFIELD M.D. [facility] Comment on above: Performed By: #### C DANIELE, JOE, #### [place] [id number] [facility] CT chest w conon 03-10-2023 CT chest w [facility] [address] [place] [address] CT Scan Report Signed Patient: Christiane Perez MR#: [id number] 2 : 1975 Acct:[id number] Age/Sex: 48 / F ADM Date: 03/10/23 Loc: ER Room: Type: [facility] ER Attending Dr: Copies to: Lavell [...] M.D.03/10/2023 2:30 PM Dictation Location: [place] [address] Transcribed By: [facility] 03/10/23 1430 Dictated By: Giovanny Cleveland DO 03/10/23 1421 Signed By: 03/10/23 1430 Normal [facility] Complete Blood Count Auto Di ffon 03-10-2023 Basophils (Bld) [#/Vol] 0.0 10*3/uL Normal 0.0-0.2 [facility] Comment on above: Result Comment: PERF ORMED BY: [facility] [address] [place] [address] PATHOLOGIST STAFF APPRAISER WAYNE WAKEFIELD M.D. Performed By: #### G LULS #### Point of Care testing , Basophils/100 WBC (Bld) 0.2 % Normal . [facility] Comment on above: Performed By: #### G LULS #### Point of Care testing , Eosinophils (Bld) [#/Vol] 0.2 10*3/uL Normal 0.0-0.45 [facility] Comment on above: Performed By: #### G LULS #### Point of Care testing , Eosinophils/100 WBC (Bld) 1.1 % Normal . [facility] Comment on above: Performed By: #### G LULS #### Point of Care testing , Erythrocyte distribution width (RBC) [Ratio] 15.4 % High 11.9-15.3 [facility] Comment on above: Performed By: #### G LULS #### Point of Care testing , Hematocrit (Bld) [Volume fraction] 38.1 % Normal 34.0-46.4 [facility] Comment on above: Performed By: #### G LULS #### Point of Care testing , Hemoglobin (Bld) [Mass/Vol] 12.8 g/dL Normal 11.8-15.4 [facility] Comment on above: Performed By: #### G LULS #### Point of Care testing , Lymphocytes (Bld) [#/Vol] 1.0 10*3/uL Normal 1.00-4.8 [facility] Comment on above: Performed By: #### G MARYLS #### Point of Care testing , Lymphocytes/100 WBC (Bld) 5.7 % Normal . [facility] Comment on above: Performed By: #### G MARYLS #### Point of Care testing , MCH (RBC) [Entitic mass] 32.6 pg Normal 24.7-34.3 [facility] Comment on above: Performed By: #### G MARYLS #### Point of Care testing , MCV (RBC) [Entitic vol] 97.2 fL Normal 80-100 [facility] Comment on above: Performed By: #### G MARYLS #### Point of Care testing , Mean Corpuscular HGB Conc 33.5 g/dL Normal 32.0-35.0 [facility] Comment on above: Performed By: #### G MARYLS #### Point of Care testing , Monocytes (Bld) [#/Vol] 1.2 10*3/uL High 0.0-0.8 [facility] Comment on above: Performed By: #### Sophia HERNANDEZLS #### Point of Care testing , Monocytes/100 WBC (Bld) 24.68 % High 0.00-20.00 [facility] Comment on above: Result Comment: For adults in ED, MDW > 20.0 may be associated with a higher risk of sepsis during the first 12 hrs of hospital admission Performed By: #### G MARYLS #### Point of Care testing , Monocytes/100 WBC (Bld) 7.2 % Normal . [facility] Comment on above: Performed By: #### G MARYLS #### Point of Care testing , Neutrophils (Bld) [#/Vol] 14.2 10*3/uL High 1.8-7.7 [facility] Comment on above: Performed By: #### G MARYLS #### Point of Care testing , Neutrophils/100 WBC (Bld) 85.8 % Normal . [facility] Comment on above: Performed By: #### G LULS #### Point of Care testing , NRBC% 0.1 /100{WBC} Normal 0-0.5 [facility] Comment on above: Performed By: #### G MARYLS #### Point of Care testing , Platelet mean volume (Bld) [Entitic vol] 7.2 fL Normal 6.3-10.7 [facility] Comment on above: Performed By: #### G MARYLS #### Point of Care testing , Platelets (Bld) [#/Vol] 410 10*3/uL Normal 150-450 [facility] Comment on above: Performed By: #### G MARYLS #### Point of Care testing , RBC (Bld) [#/Vol] 3.92 10*6/uL Normal 3.60-5.00 [facility] Comment on above: Performed By: #### G MARYLS #### Point of Care testing , WBC (Bld) [#/Vol] 16.6 10*3/uL High 3.8-11.6 [facility] Comment on above: Performed By: #### G MARE #### Point of Care testing , Creatine Kinaseon 03-10-2023 CK [Catalytic activity/Vol] 23 U/L Low 30-223 [facility] Comment on above: Performed By: #### C BC, BMP, MG #### [address] Creatine kinase [Enzymatic a ctivity/volume] in Serum or PlasmaOrdered By: Lavell Salazar on 03-10-2023 CK [Catalytic activity/Vol] 23 U/L 30-223 [facility] ECG 12 lead ECGon 03-10-2023 ECG 12 lead ECG [place] [address] Electrocardiograph Report Signed Patient: Christiane Perez MR#: [id number] 2 : 1975 Acct:[id number] Age/Sex: 48 / F ADM Date: 03/10/23 Loc: ER Room: Type: [facility] ER Attending Dr: Ordering Provider: Lavell [...] has shortened Confirmed by Lavell Salazar DO ([id number]) on 03/10/2023 3:09:19 PM Referred By: Electronically Signed By:Lavell Salazar DO Transcribed By: MUS Signed By Lavell Salazar DO 3 1509 Normal [facility] Glucose Poct Glucometerson 0 03-10-2023 Glucose [Mass/Vol] 129 mg/dL Normal [facility] Comment on above: Result Comment: [facility] Glucose Reference Range is dependent on time and content of last meal. Glucose of more than 200 mg/dL in a nonstressed, ambulatory subject supports the diagnosis of Diabetes Mellitus. PERFORMED BY: [address] [place] [address] PATHOLOGIST STAFF APPRAISER WAYNE WAKEFIELD M.D. Performed By: #### G LULS #### Point of Care testing , Commemt1 Glu2: Cleaned Meter Normal [facility] Comment on above: Result Comment: PERF ORMED BY: [facility] [address] [place] [address] PATHOLOGIST STAFF APPRAISER WAYNE WAKEFIELD M.D. Performed By: #### G LULS #### Point of Care testing , Glucose [Mass/Vol] 176 mg/dL Normal [facility] Comment on above: Result Comment: [facility] Glucose Reference Range is dependent on time and content of last meal. Glucose of more than 200 mg/dL in a nonstressed, ambulatory subject supports the diagnosis of Diabetes Mellitus. Performed By: #### G LULS #### Point of Care testing , Hepatic Panelon 03-10-2023 Albumin [Mass/Vol] 3.3 g/dL Low 3.5-5.7 [facility] Comment on above: Performed By: #### C BC, BMP, MG #### [facility] [address] [place] [address] Albumin/Globulin [Mass ratio] 0.9 {ratio} Normal [facility] Comment on above: Performed By: #### C BC, BMP, MG #### [facility] [address] [place] [address] ALP [Catalytic activity/Vol] 110 U/L High 34-104 [facility] Comment on above: Performed By: #### C BC, BMP, MG #### [facility] [address] [place] [address] ALT [Catalytic activity/Vol] 6 U/L Low 7-52 [facility] Comment on above: Performed By: #### C BC, BMP, MG #### [facility] [address] [place] [address] AST [Catalytic activity/Vol] 10 U/L Low 13-39 [facility] Comment on above: Performed By: #### C BC, BMP, MG #### [facility] [address] [place] [address] Bilirubin [Mass/Vol] 0.7 mg/dL Normal 0.3-1.0 [facility] Comment on above: Performed By: #### C BC, BMP, MG #### [facility] [address] [place] [address] Bilirubin,Indirect 0.5 mg/dL Normal [facility] Comment on above: Performed By: #### C BC, BMP, MG #### [facility] [address] [place] [address] Bilirubin.indirect [Mass/Vol] 0.20 mg/dL High 0.03-0.18 [facility] Comment on above: Performed By: #### C BC, BMP, MG #### [facility] [address] [place] [address] Globulin (S) [Mass/Vol] 3.6 g/dL Normal [facility] Comment on above: Performed By: #### C BC, BMP, MG #### [facility] [address] [place] [address] [place] Protein [Mass/Vol] 6.9 g/dL Normal 6.4-8.9 [facility] Comment on above: Performed By: #### C BC, BMP, MG #### [facility] [address] Laboratory - CoagulationOrde red By: Lavell Salazar on 03-10-2023 PT Coag (PPP) [Time] 14.3 s 9.0-12.9 [facility] Lactate [Moles/volume] in Se rum or PlasmaOrdered By: Lavell Salazar on 03-10-2023 Lactate [Moles/Vol] 1.2 mmol/L 0.5-2.2 [facility] Lactic Acidon 03-10-2023 Lactate [Moles/Vol] 1.2 mmol/L Normal 0.5-2.2 [facility] Comment on above: Result Comment: PERF ORMED BY: [place] [address] PATHOLOGIST STAFF APPRAISER WAYNE WAKEFIELD M.D. Performed By: #### G MARE #### Point of Care testing , Monocyte distribution width [Entitic volume] in Blood by AutomatedOrdered By: Lavell Salazar on 03-10-2023 Monocyte distribution width Auto (Bld) [Entitic vol] 24.68 % 0.00-20.00 [facility] Comment on above: For adults in ED, MD W > 20.0 may be associated with a higher risk of sepsis during the first 12 hrs of hospital admission Natriuretic peptide B [Mass/ Vol]Ordered By: Lavell Salazar on 03-10-2023 Natriuretic peptide B (Bld) [Mass/Vol] 46.0 pg/mL 5-100 [facility] Partial Thromboplastin Timeo n 03-10-2023 aPTT Coag (Bld) [Time] 40.2 s High 25.1-36.5 [facility] Comment on above: Result Comment: PERF ORMED BY: [facility] [address] [place] [address] PATHOLOGIST STAFF APPRAISER WAYNE WAKFEIELD M.D. Performed By: #### G MARE #### Point of Care testing , Platelet poor plasma interna tional normalized ratio (INR) by coagulation assay (relatOrdered By: Lavell Salazar on 03-10-2023 INR Coag (PPP) [Relative time] 1.2 {INR} [facility] Comment on above: INR Therapeutic Rang e [...] Coag (PPP) [Relative time] 1.2 {INR} Normal [facility] Comment on above: Result Comment: INR Therapeutic [...] Coag (PPP) [Time] 14.3 s High 9.0-12.9 [facility] Comment on above: Performed By: #### G LUAUGUSTIN #### Point of Care testing , Serum or plasma non-glucuron idated bilirubin measurement (mass/volume)Ordered By: Lavell Salazar on 03-10-2023 Bilirubin.indirect [Mass/Vol] 0.5 mg/dL [facility] Troponin I High Sensitivityo n 03-10-2023 Troponin I High Sensitivity 12.8 pg/mL Normal 0.0-15.0 [facility] Comment on above: Result Comment: PERF ORMED BY: [facility] [address] [place] [address] PATHOLOGIST STAFF APPRAISER WAYNE WAKEFIELD M.D. Performed By: #### C BC, BMP, MG #### [address] Troponin I.cardiac [Mass/vol ume] in Serum or Plasma by Detection limit <= 0.01 ng/Ordered By: Lavell Salazar on 03-10-2023 Troponin I.cardiac DL <= 0.01 ng/mL [Mass/Vol] 12.8 pg/mL 0.0-15.0 [facility] XR chest 1V portableon 03-10 XR chest 1V portable [facility] [address] [place] [address] XRay Report Signed Patient: Christiane Perez MR#: [id number] 2 : 1975 Acct:[id number] Age/Sex: 48 / F ADM Date: 03/10/23 [...] Johnson Jr., DJosueOJosue03/10/2023 1:11 PM Dictation Location: [place] [address] Transcribed By: [facility] 03/10/231310 Dictated By: Rodger Johnson Jr, DO 03/10/231309 Signed By: 03/10/23 131 Normal [facility] Insurance Correspondence Off 02-19-2023 Insurance Correspondence Office [id number]#[id number]:12 7 Normal [facility] Quick Strepon 02-14-2023 S. pyogenes Org specific cx Ql (Throat) Negative [employer] [facility] [employer] Other Quick Strep [facility] [employer] Other Insurance Correspondence Off iceon 01-20-2023 Insurance Correspondence Office [id number]#[id number]:1 27 Normal [facility] CBC AUTO DIFFon 12-01-2022 BASO # 0.0 103/ul Normal 0.0-0.1 [facility] Comment on above: Performed By: #### I NFLUAB #### [facility] [address] [place] [address] Dr. Roscoe Segal Basophils/100 WBC (Bld) 0.6 % Normal 0.2-2.0 [facility] Comment on above: Performed By: #### I NFLUAB #### [facility] [address] [place] [address] Dr. Roscoe Segal EO # 0.2 103/ul Normal 0.0-0.7 [facility] Comment on above: Performed By: #### I NFLUAB #### [facility] [address] [place] [address] Dr. Roscoe Segal Eosinophils/100 WBC (Bld) 2.4 % Normal 0.9-7.0 [facility] Comment on above: Performed By: #### I NFLUAB #### [facility] [address] [place] [address] Dr. Roscoe Segal Erythrocyte distribution width (RBC) [Ratio] 14.9 % Normal 11.0-15.0 [facility] Comment on above: Performed By: #### I NFLUAB #### [facility] [address] [place] [address] Dr. Roscoe Segal Hematocrit (Bld) [Volume fraction] 44.7 % Normal 36.0-48.0 [facility] Comment on above: Performed By: #### I NFLUAB #### [facility] [address] [place] [address] Dr. Roscoe Segal Hemoglobin (Bld) [Mass/Vol] 14.9 g/dL Normal 12.0-16.0 [facility] Comment on above: Performed By: #### I NFLUAB #### [facility] [address] [place] [address] [address] Roscoe Segal IG # 0.02 10e3/ul Normal 0.00-0.03 [facility] Comment on above: Performed By: #### I NFLUAB #### [facility] [address] [place] [address] Dr. Roscoe Segal IG % 0.3 % Normal 0.0-0.5 [facility] Comment on above: Performed By: #### I NFLUAB #### [facility] [address] [place] [address] Dr. Roscoe Segal LYMPH # 1.6 103/ul Normal 1.2-3.8 [facility] Comment on above: Performed By: #### I NFLUAB #### [facility] [address] [place] [address] Dr. Roscoe Segal Lymphocytes/100 WBC (Bld) 26.1 % Normal 20.5-60.0 [facility] Comment on above: Performed By: #### I NFLUAB #### [facility] [address] [place] [address] Dr. Roscoe Segal MANUAL DIFF REQ NO Normal [facility] Comment on above: Performed By: #### I NFLUAB #### [facility] [address] [place] [address] [address] Roscoe Segal MCH (RBC) [Entitic mass] 32.3 pg Normal 26.7-34.0 [facility] Comment on above: Performed By: #### I NFLUAB #### [facility] [address] [place] [address] [address] Roscoe Segal MCHC (RBC) [Mass/Vol] 33.3 g/dL Normal 29.9-35.2 [facility] Comment on above: Performed By: #### I NFLUAB #### [facility] [address] [place] [address] Dr. Roscoe Segal MCV (RBC) [Entitic vol] 96.8 fL Normal 81.0-99.0 [facility] Comment on above: Performed By: #### I NFLUAB #### [facility] [address] [place] [address] Dr. Roscoe Segal MONO # 0.6 103/ul Normal 0.3-0.8 [facility] Comment on above: Performed By: #### I NFLUAB #### [facility] [address] [place] [address] Dr. Roscoe Segal Monocytes/100 WBC (Bld) 9.1 % Normal 1.7-12.0 [facility] Comment on above: Performed By: #### I NFLUAB #### [facility] [address] [place] [address] Dr. Roscoe Segal NEUT # 3.8 103/ul Normal 1.4-6.5 [facility] Comment on above: Performed By: #### I NFLUAB #### [facility] [address] [place] [address] Dr. Roscoe Segal Neutrophils/100 WBC (Bld) 61.5 % Normal 43.0-75.0 [facility] Comment on above: Performed By: #### I NFLUAB #### [facility] [address] [place] [address] Dr. Roscoe Segal Platelet mean volume (Bld) [Entitic vol] 8.5 fL Critically low 9.5-13.5 [facility] Comment on above: Performed By: #### I NFLUAB #### [facility] [address] [place] [address] Dr. Roscoe Segal PLT 268 103/ul Normal 150-450 [facility] Comment on above: Performed By: #### I NFLUAB #### [facility] [address] [place] [address] Dr. Roscoe Segal RBC 4.62 106/ul Normal 4.20-5.40 [facility] Comment on above: Performed By: #### I NFLUAB #### [facility] [address] [place] [address] [address] Roscoe Segal WBC 6.3 103/ul Normal 4.0-11.0 [facility] Comment on above: Performed By: #### I NFLUAB #### [facility] [address] [place] [address] Dr. Roscoe Segal GLYCOHEMOGLOBIN A1Con 2022 ADA RECOMMENDATION SEE BELOW Normal [facility] Comment on above: Result Comment: ADA RECOMMENDED LIMIT 4.0 - 6.0 ADA THERAPEUTIC TARGET < 7.0 ACTION SUGGESTED > 7.0 Performed By: #### C BC #### [facility] [address] [place] [address] [address] Roscoe Segal Glucose [Mass/Vol] 137 mg/dL Normal [facility] Comment on above: Performed By: #### C BC #### [facility] [address] [place] [address] Dr. Roscoe Segal HbA1c (Bld) [Mass fraction] 6.4 % Critically high 4.5-6.2 [facility] Comment on above: Performed By: #### C BC #### [facility] [address] [place] [address] Dr. Roscoe Segal LIPID PROFILEon 12-01-2022 CHOL-HDL RATIO NORM SEE BELOW Normal [facility] Comment on above: Result Comment: 3.3 - 4.4 LOW RISK 4.4 - 7.1 AVERAGE RISK 7.1 - 11.0 MODERATE RISK >11.0 HIGH RISK Performed By: #### I NFLUAB #### [facility] [address] [place] [address] Dr. Roscoe Segal Cholesterol [Mass/Vol] 116 mg/dL Normal <=200 [facility] Comment on above: Performed By: #### I NFLUAB #### [facility] [address] [place] [address] Dr. Roscoe Segal Cholesterol in HDL [Mass/Vol] 58 mg/dL Normal 40-60 [facility] Comment on above: Performed By: #### I NFLUAB #### [facility] [address] [place] [address] Dr. Roscoe Segal Cholesterol in LDL [Mass/Vol] 43.4 mg/dL Normal [facility] Comment on above: Performed By: #### I NFLUAB #### [facility] [address] [place] [address] [address] Roscoe Segal Cholesterol.total/Chol esterol in HDL [Mass ratio] 2.0 {ratio} Normal [facility] Comment on above: Performed By: #### I NFLUAB #### [facility] [address] [place] [address] [address] Roscoe Segal HDL NORMAL > or = 60 mg/dl - LO W CARDIOVASCULAR RISK <40 mg/dl - HIGH CARDIOVASCULAR RISK Normal [facility] Comment on above: Performed By: #### I NFLUAB #### [facility] [address] [place] [address] [address] Roscoe Segal LDL CALC NORMAL SEE BELOW Normal [facility] Comment on above: Result Comment: <100 mg/dl OPTIMAL 100 - 129 mg/dl NEAR OR ABOVE OPTIMAL 130 - 159 mg/dl BORDERLINE HIGH 160 - 189 mg/dl HIGH >190 mg/dl VERY HIGH Performed By: #### I NFLUAB #### [facility] [address] [place] [address] [address] Roscoe Segal Triglyceride [Mass/Vol] 73 mg/dL Normal <=150 [facility] Comment on above: Performed By: #### I NFLUAB #### [facility] [address] [place] [address] [address] Roscoe Segal VLDL CALC 14.6 mg/dL Normal [facility] Comment on above: Performed By: #### I NFLUAB #### [facility] [address] [address] [address] Roscoe Segal PROF 14(COMP METB)on 023 Albumin [Mass/Vol] 2.9 g/dL Critically low 3.4-5.0 [facility] Comment on above: Performed By: #### P OCGLUC #### [facility] [address] [address] [address] Roscoe Segal Albumin/Globulin [Mass ratio] 0.8 {ratio} Normal [facility] Comment on above: Performed By: #### P OCGLUC #### [facility] [address] [address] [address] Roscoe Segal ALP [Catalytic activity/Vol] 114 U/L Normal 46-116 [facility] Comment on above: Performed By: #### P OCGLUC #### [facility] [address] [address] [address] Roscoe Segal ALT [Catalytic activity/Vol] 15 U/L Normal 14-59 [facility] Comment on above: Performed By: #### P OCGLUC #### [facility] [address] [address] [address] Roscoe Seagl Anion gap [Moles/Vol] 14.3 mmol/L Normal [facility] Comment on above: Performed By: #### P OCGLUC #### [facility] [address] [address] [address] Roscoe Segal AST [Catalytic activity/Vol] 10 U/L Critically low 15-37 [facility] Comment on above: Performed By: #### P OCGLUC #### [facility] [address] [address] [address] Roscoe Segal Bilirubin [Mass/Vol] 0.3 mg/dL Normal 0.2-1.0 [facility] Comment on above: Performed By: #### P OCGLUC #### [facility] [address] [address] [address] Roscoe Segal Calcium [Mass/Vol] 8.7 mg/dL Normal 8.5-10.1 [facility] Comment on above: Performed By: #### P OCGLUC #### [facility] [address] [address] [address] Roscoe Segal Chloride [Moles/Vol] 104 mmol/L Normal 98-107 [facility] Comment on above: Performed By: #### P OCGLUC #### [facility] [address] [address] [address] Roscoe Segal CO2 [Moles/Vol] 23.5 mmol/L Normal 21.0-32.0 [facility] Comment on above: Performed By: #### P OCGLUC #### [facility] [address] [address] [address] Roscoe Segal Creatinine [Mass/Vol] 0.83 mg/dL Normal 0.55-1.02 [facility] Comment on above: Performed By: #### P OCGLUC #### [facility] [address] [address] [address] Roscoe Segal EGFR-AF GUATEMALAN >60 Normal >=60 [facility] Comment on above: Performed By: #### P OCGLUC #### [facility] [address] [address] [address] Roscoe Segal EGFR-NON AF GUATEMALAN >60 Normal >=60 [facility] Comment on above: Performed By: #### P OCGLUC #### [facility] [address] [address] [address] Roscoe Segal Globulin (S) [Mass/Vol] 3.5 g/dL Normal [facility] Comment on above: Performed By: #### P OCGLUC #### [facility] [address] [address] [address] Roscoe Segal Glucose [Mass/Vol] 235 mg/dL Critically high 74-106 [facility] Comment on above: Performed By: #### P OCGLUC #### [facility] [address] [address] [address] Roscoe Segal Potassium [Moles/Vol] 3.8 mmol/L Normal 3.5-5.1 [facility] Comment on above: Performed By: #### P OCGLUC #### [facility] [address] [address] [address] Roscoe Segal Protein [Mass/Vol] 6.4 g/dL Normal 6.4-8.2 [facility] Comment on above: Performed By: #### P OCGLUC #### [facility] [address] [address] [address] Roscoe Segal Sodium [Moles/Vol] 138 mmol/L Normal 136-145 [facility] Comment on above: Performed By: #### P OCGLUC #### [facility] [address] [address] [address] Roscoe Segal Urea nitrogen [Mass/Vol] 9.0 mg/dL Normal 7.0-18.0 [facility] Comment on above: Performed By: #### P OCGLUC #### [facility] [address] [place] [address] Dr. Roscoe Segal Urea nitrogen/Creatinine [Mass ratio] 10.8 mg/mg Normal [facility] Comment on above: Performed By: #### P OCGLUC #### [facility] [address] [place] [address] Dr. Roscoe Segal CARDIAC VICK ADMITon 023 CK [Catalytic activity/Vol] 43 U/L Normal 26-192 [facility] Comment on above: Performed By: #### I NFLUAB #### [facility] [address] [place] [address] Dr. Roscoe Segal CK.MB [Mass/Vol] 2.22 ng/mL Normal <=3.60 [facility] Comment on above: Performed By: #### I NFLUAB #### [facility] [address] [place] [address] Dr. Roscoe Segal GWEN 58 ng/mL Normal 9-82 [facility] Comment on above: Performed By: #### I NFLUAB #### [facility] [address] [place] [address] Dr. Roscoe Segal CBC AUTO DIFFon 09-11-2022 BASO # 0.1 103/ul Normal 0.0-0.1 [facility] Comment on above: Performed By: #### P OCGLUC #### [facility] [address] [place] [address] Dr. Roscoe Segal Basophils/100 WBC (Bld) 0.8 % Normal 0.2-2.0 [facility] Comment on above: Performed By: #### P OCGLUC #### [facility] [address] [place] [address] Dr. Roscoe Segal EO # 0.2 103/ul Normal 0.0-0.7 [facility] Comment on above: Performed By: #### P OCGLUC #### [facility] [address] [address] [address] Roscoe Segal Eosinophils/100 WBC (Bld) 2.1 % Normal 0.9-7.0 [facility] Comment on above: Performed By: #### P OCGLUC #### [facility] [address] [place] [address] Dr. Roscoe Segal Erythrocyte distribution width (RBC) [Ratio] 14.2 % Normal 11.0-15.0 [facility] Comment on above: Performed By: #### P OCGLUC #### [facility] [address] [place] [address] Dr. Roscoe Segal Hematocrit (Bld) [Volume fraction] 48.4 % Critically high 36.0-48.0 [facility] Comment on above: Performed By: #### P OCGLUC #### [facility] [address] [place] [address] Dr. Roscoe Segal Hemoglobin (Bld) [Mass/Vol] 15.0 g/dL Normal 12.0-16.0 [facility] Comment on above: Performed By: #### P OCGLUC #### [facility] [address] [place] [address] Dr. Roscoe Segal IG # 0.02 10e3/ul Normal 0.00-0.03 [facility] Comment on above: Performed By: #### P OCGLUC #### [facility] [address] [place] [address] Dr. Roscoe Segal IG % 0.2 % Normal 0.0-0.5 [facility] Comment on above: Performed By: #### P OCGLUC #### [facility] [address] [place] [address] Dr. Roscoe Segal LYMPH # 2.2 103/ul Normal 1.2-3.8 [facility] Comment on above: Performed By: #### P OCGLUC #### [facility] [address] [place] [address] Dr. Rosceo Segal Lymphocytes/100 WBC (Bld) 26.8 % Normal 20.5-60.0 [facility] Comment on above: Performed By: #### P OCGLUC #### [facility] [address] [address] [address] Roscoe Segal MANUAL DIFF REQ NO Normal [facility] Comment on above: Performed By: #### P OCGLUC #### [facility] [address] [address] [address] Roscoe Segal MCH (RBC) [Entitic mass] 32.8 pg Normal 26.7-34.0 [facility] Comment on above: Performed By: #### P OCGLUC #### [facility] [address] [place] [address] Dr. Roscoe Segal MCHC (RBC) [Mass/Vol] 31.0 g/dL Normal 29.9-35.2 [facility] Comment on above: Performed By: #### P OCGLUC #### [facility] [address] [place] [address] Dr. Roscoe Segal MCV (RBC) [Entitic vol] 105.7 fL Critically high 81.0-99.0 [facility] Comment on above: Result Comment: Slig ht Macrocytosis Present Performed By: #### P OCGLUC #### [facility] [address] [place] [address] Dr. Roscoe Segal MONO # 0.7 103/ul Normal 0.3-0.8 [facility] Comment on above: Performed By: #### P OCGLUC #### [facility] [address] [place] [address] Dr. Rosceo Segal Monocytes/100 WBC (Bld) 8.9 % Normal 1.7-12.0 [facility] Comment on above: Performed By: #### P OCGLUC #### [facility] [address] [place] [address] Dr. Roscoe Segal NEUT # 5.1 103/ul Normal 1.4-6.5 [facility] Comment on above: Performed By: #### P OCGLUC #### [facility] [address] [place] [address] Dr. Roscoe Segal Neutrophils/100 WBC (Bld) 61.2 % Normal 43.0-75.0 [facility] Comment on above: Performed By: #### P OCGLUC #### [facility] [address] [address] [address] Roscoe Segal Platelet mean volume (Bld) [Entitic vol] 8.7 fL Critically low 9.5-13.5 [facility] Comment on above: Performed By: #### P OCGLUC #### [facility] [address] [address] [address] Roscoe Segal PLT 382 103/ul Normal 150-450 [facility] Comment on above: Performed By: #### P OCGLUC #### [facility] [address] [address] [address] Roscoe Segal RBC 4.58 106/ul Normal 4.20-5.40 [facility] Comment on above: Performed By: #### P OCGLUC #### [facility] [address] [address] [address] Roscoe Segal WBC 8.3 103/ul Normal 4.0-11.0 [facility] Comment on above: Performed By: #### P OCGLUC #### [facility] [address] [address] [address] Roscoe Segal GLUCOSE BLOODon 09-11-2022 Glucose [Mass/Vol] 39 mg/dL Critically low 74-106 [facility] Comment on above: Performed By: #### P OCGLUC #### [facility] [address] [address] [address] Roscoe Segal POINT OF CARE GLUCOSEon 08-17 Glucose [Mass/Vol] 103 mg/dL Normal 74-106 [facility] Comment on above: Performed By: #### P OCGLUC #### [facility] [address] [address] [address] Roscoe Segal Glucose [Mass/Vol] 284 mg/dL Critically high 74-106 [facility] Comment on above: Performed By: #### P OCGLUC #### [facility] [address] [address] [address] Roscoe Segal Glucose [Mass/Vol] 104 mg/dL Normal 74-106 [facility] Comment on above: Performed By: #### P OCGLUC #### [facility] [address] [address] [address] Roscoe Segal Glucose [Mass/Vol] 94 mg/dL Normal 74-106 [facility] Comment on above: Performed By: #### I NFLUAB #### [facility] [address] [address] [address] Roscoe Segal Glucose [Mass/Vol] 136 mg/dL Critically high 74-106 [facility] Comment on above: Performed By: #### P OCGLUC #### [facility] [address] [address] [address] Roscoe Segal Glucose [Mass/Vol] 181 mg/dL Critically high 74-106 [facility] Comment on above: Performed By: #### P OCGLUC #### [facility] [address] [address] [address] Roscoe Segal Glucose [Mass/Vol] 103 mg/dL Normal 74-106 [facility] Comment on above: Performed By: #### C BC #### [facility] [address] [address] [address] Roscoe Segal Glucose [Mass/Vol] 81 mg/dL Normal 74-106 [facility] Comment on above: Performed By: #### P OCGLUC #### [facility] [address] [address] [address] Roscoe Segal Glucose [Mass/Vol] 52 mg/dL Critically low 74-106 [facility] Comment on above: Performed By: #### P OCGLUC #### [facility] [address] [address] [address] Roscoe Segal Glucose [Mass/Vol] 38 mg/dL Critically low 74-106 [facility] Comment on above: Result Comment: Will Repeat Test Performed By: #### C BC #### [facility] [address] [address] [address] Roscoe Segal Glucose [Mass/Vol] 67 mg/dL Critically low 74-106 [facility] Comment on above: Performed By: #### P OCGLUC #### [facility] [address] [place] [address] Dr. Roscoe Segal PROF CHEM 8 (BAS METB)on Anion gap [Moles/Vol] 13.1 mmol/L Normal [facility] Comment on above: Performed By: #### C BC #### [facility] [address] [place] [address] Dr. Roscoe Segal Calcium [Mass/Vol] 9.0 mg/dL Normal 8.5-10.1 [facility] Comment on above: Performed By: #### C BC #### [facility] [address] [place] [address] Dr. Roscoe Segal Chloride [Moles/Vol] 106 mmol/L Normal 98-107 [facility] Comment on above: Performed By: #### C BC #### [facility] [address] [place] [address] Dr. Roscoe Segal CO2 [Moles/Vol] 25.0 mmol/L Normal 21.0-32.0 [facility] Comment on above: Performed By: #### C BC #### [facility] [address] [place] [address] Dr. Roscoe Segal Creatinine [Mass/Vol] 0.86 mg/dL Normal 0.55-1.02 [facility] Comment on above: Performed By: #### C BC #### [facility] [address] [place] [address] Dr. Roscoe Segal EGFR-AF GUATEMALAN >60 Normal >=60 [facility] Comment on above: Performed By: #### C BC #### [facility] [address] [place] [address] Dr. Roscoe Segal EGFR-NON AF GUATEMALAN >60 Normal >=60 [facility] Comment on above: Performed By: #### C BC #### [facility] [address] [place] [address] Dr. Roscoe Segal Glucose [Mass/Vol] 36 mg/dL Critically low 74-106 [facility] Comment on above: Performed By: #### C BC #### [facility] [address] [place] [address] Dr. Roscoe Segal Potassium [Moles/Vol] 4.1 mmol/L Normal 3.5-5.1 [facility] Comment on above: Performed By: #### C BC #### [facility] [address] [address] [address] Roscoe Segal Sodium [Moles/Vol] 140 mmol/L Normal 136-145 [facility] Comment on above: Performed By: #### C BC #### [facility] [address] [address] [address] Roscoe Segal Urea nitrogen [Mass/Vol] 10.0 mg/dL Normal 7.0-18.0 [facility] Comment on above: Performed By: #### C BC #### [facility] [address] [place] [address] Dr. Roscoe Segal Urea nitrogen/Creatinine [Mass ratio] 11.6 mg/mg Normal [facility] Comment on above: Performed By: #### C BC #### [facility] [address] [place] [address] Dr. Roscoe Segal TROPONIN, HIGH SENSITIVITYon 09-11-2022 HSTROP 7.0 pg/mL Normal 4.0-51.3 [facility] Comment on above: Result Comment: CUT- OFF POINTS HAVE BEEN ESTABLISHED BASED ON THE FOURTH UNIVERSAL DEFINITIONS OF MYOCARDIAL INFARCTION. THE UPPER REFERENCE LIMIT (URL) OF TROPONIN, DEFINED THE 99TH PERCENTILE OF cTnI DISTRIBUTION IN A REFERENCE POPULATION, HAS BEEN CONFIRMED THE DECISION THRESHOLD FOR OH DIAGNOSIS. Performed By: #### I NFLUAB #### [facility] [address] [place] [address] Dr. Roscoe Segal INFLUENZA A AND B AGon 07-24 INFLUANEGH SEE BELOW Normal [facility] Comment on above: Result Comment: Nega tive for Flu A protein angiten. Infection due to Flu A cannot be ruled out. Flu A angiten in the sample may be below the detection limit of the test. Performed By: #### I NFLUAB #### [facility] [address] [place] [address] Dr. Roscoe Segal INFLUBNEGH SEE BELOW Normal [facility] Comment on above: Result Comment: Nega tive for Flu B protein antigen. Infection due to Flu B cannot be ruled out. Flu B antigen in the sample may be below the detection limit of the test. Performed By: #### I NFLUAB #### [facility] [address] [place] [address] Dr. Roscoe Segal INFLUENZA A AG Negative Normal NEGATIVE SEE COMMENT [facility] Comment on above: Performed By: #### I NFLUAB #### [facility] [address] [place] [address] Dr. Roscoe Segal INFLUENZA B AG Negative Normal NEGATIVE SEE COMMENT [facility] Comment on above: Performed By: #### I NFLUAB #### [facility] [address] [place] [address] Dr. Roscoe Segal INTERNAL CONTROLS Within Normal Limits Normal Wi thin Normal Limits [facility] Comment on above: Performed By: #### I NFLUAB #### [facility] [address] [place] [address] Dr. Roscoe Segal XR CHEST 1 Von [...] SHAJI LIMON Date: 2022-07-24 15:26 Normal [facility] XR CHEST 2 Von 05-25-2022 [...] by: GERMAINE FARRELL Date: 2022-05-25 16:25 Normal [facility] BLOOD GASES BTYon 04-27-2022 02 MODE NASAL CANNULA Normal [facility] Comment on above: Performed By: #### P OCGLUC #### [facility] [address] [place] [address] Dr. Roscoe Segal ALLENS TEST Positive [facility] Comment on above: Performed By: #### P OCGLUC #### [facility] [address] [address] [address] Roscoe Segal Base excess Calc (Bld) [Moles/Vol] -1.5000 mmol/L Normal -2.0-2.0 [facility] Comment on above: Performed By: #### P OCGLUC #### [facility] [address] [place] [address] Dr. Roscoe Segal BIPAP PRESSURE [facility] Comment on above: Performed By: #### P OCGLUC #### [facility] [address] [address] [address] Roscoe Segal CPAP [facility] Comment on above: Performed By: #### P OCGLUC #### [facility] [address] [address] [address] Roscoe Segal FIO2 [facility] Comment on above: Performed By: #### P OCGLUC #### [facility] [address] [place] [address] Dr. Roscoe Segal HCO3 (Bld) [Moles/Vol] 23.2 mmol/L Normal 22.0-26.0 [facility] Comment on above: Performed By: #### P OCGLUC #### [facility] [address] [place] [address] Dr. Roscoe Segal LPM 3 [facility] Comment on above: Performed By: #### P OCGLUC #### [facility] [address] [place] [address] Dr. Roscoe Segal MINUTE VOLUME Normal [facility] Comment on above: Performed By: #### P OCGLUC #### [facility] [address] [address] [address] Roscoe Segal Oxygen (Bld) [Partial pressure] 76.4 mm[Hg] Critically low 80.0-100.0 [facility] Comment on above: Performed By: #### P OCGLUC #### [facility] [address] [address] [address] Roscoe Segal Oxygen saturation in Blood 94.8 % Critically low 95.0-100.0 [facility] Comment on above: Performed By: #### P OCGLUC #### [facility] [address] [address] [address] Roscoe Segal PCO2 39.5 mmHg Normal 35.0-45.0 [facility] Comment on above: Performed By: #### P OCGLUC #### [facility] [address] [place] [address] Dr. Roscoe Segal [facility] Comment on above: Performed By: #### P OCGLUC #### [facility] [address] [place] [address] Dr. Roscoe Segal pH (Bld) 7.384 [pH] Normal 7.350-7.45 0 [facility] Comment on above: Performed By: #### P OCGLUC #### [facility] [address] [place] [address] Dr. Roscoe Segal [facility] Comment on above: Performed By: #### P OCGLUC #### [facility] [address] [address] [address] Roscoe Segal [facility] Comment on above: Performed By: #### P OCGLUC #### [facility] [address] [address] [address] Roscoe Segal PUNCTURE SITE LR [facility] Comment on above: Performed By: #### P OCGLUC #### [facility] [address] [place] [address] Dr. Roscoe Segal RATE [facility] Comment on above: Performed By: #### P OCGLUC #### [facility] [address] [place] [address] Dr. Roscoe Segal VENT MODE Normal [facility] Comment on above: Performed By: #### P OCGLUC #### [facility] [address] [place] [address] Dr. Roscoe Segal [facility] Comment on above: Performed By: #### P OCGLUC #### [facility] [address] [place] [address] Dr. Roscoe Segal BNPon 04-27-2022 Natriuretic peptide B (Bld) [Mass/Vol] 282.0 pg/mL Normal <=450.0 [facility] Comment on above: Performed By: #### P OCGLUC #### [facility] [address] [place] [address] Dr. Roscoe Segal CBC AUTO DIFFon 04-27-2022 BASO # 0.0 103/ul Normal 0.0-0.1 [facility] Comment on above: Performed By: #### P OCGLUC #### [facility] [address] [place] [address] Dr. Roscoe Segal Basophils/100 WBC (Bld) 0.2 % Normal 0.2-2.0 [facility] Comment on above: Performed By: #### P OCGLUC #### [facility] [address] [place] [address] Dr. Roscoe Segal EO # 0.0 103/ul Normal 0.0-0.7 [facility] Comment on above: Performed By: #### P OCGLUC #### [facility] [address] [place] [address] Dr. Roscoe Segal Eosinophils/100 WBC (Bld) 0.0 % Critically low 0.9-7.0 [facility] Comment on above: Performed By: #### P OCGLUC #### [facility] [address] [place] [address] Dr. Roscoe Segal Erythrocyte distribution width (RBC) [Ratio] 14.1 % Normal 11.0-15.0 [facility] Comment on above: Performed By: #### P OCGLUC #### [facility] [address] [place] [address] Dr. Roscoe Segal Hematocrit (Bld) [Volume fraction] 39.4 % Normal 36.0-48.0 [facility] Comment on above: Performed By: #### P OCGLUC #### [facility] [address] [address] [address] Roscoe Segal Hemoglobin (Bld) [Mass/Vol] 13.0 g/dL Normal 12.0-16.0 [facility] Comment on above: Performed By: #### P OCGLUC #### [facility] [address] [place] [address] Dr. Roscoe Segal IG # 0.14 10e3/ul Critically high 0.00-0.03 [facility] Comment on above: Performed By: #### P OCGLUC #### [facility] [address] [place] [address] Dr. Roscoe Segal IG % 1.0 % Critically high 0.0-0.5 [facility] Comment on above: Performed By: #### P OCGLUC #### [facility] [address] [place] [address] Dr. Roscoe Segal LYMPH # 1.4 103/ul Normal 1.2-3.8 [facility] Comment on above: Performed By: #### P OCGLUC #### [facility] [address] [place] [address] Dr. Roscoe Segal Lymphocytes/100 WBC (Bld) 9.5 % Critically low 20.5-60.0 [facility] Comment on above: Performed By: #### P OCGLUC #### [facility] [address] [place] [address] Dr. Roscoe Segal MANUAL DIFF REQ NO Normal [facility] Comment on above: Performed By: #### P OCGLUC #### [facility] [address] [place] [address] Dr. Roscoe Segal MCH (RBC) [Entitic mass] 32.3 pg Normal 26.7-34.0 [facility] Comment on above: Performed By: #### P OCGLUC #### [facility] [address] [place] [address] Dr. Roscoe Segal MCHC (RBC) [Mass/Vol] 33.0 g/dL Normal 29.9-35.2 [facility] Comment on above: Performed By: #### P OCGLUC #### [facility] [address] [address] [address] Roscoe Segal MCV (RBC) [Entitic vol] 98.0 fL Normal 81.0-99.0 [facility] Comment on above: Performed By: #### P OCGLUC #### [facility] [address] [address] [address] Roscoe Segal MONO # 0.6 103/ul Normal 0.3-0.8 [facility] Comment on above: Performed By: #### P OCGLUC #### [facility] [address] [place] [address] Dr. Roscoe Segal Monocytes/100 WBC (Bld) 4.3 % Normal 1.7-12.0 [facility] Comment on above: Performed By: #### P OCGLUC #### [facility] [facility] [address] [place] [address] Dr. Roscoe Segal NEUT # 12.1 103/ul Critically high 1.4-6.5 [facility] Comment on above: Performed By: #### P OCGLUC #### [facility] [address] [place] [address] Dr. Roscoe Segal Neutrophils/100 WBC (Bld) 85.0 % Critically high 43.0-75.0 [facility] Comment on above: Performed By: #### P OCGLUC #### [facility] [address] [place] [address] Dr. Roscoe Segal Platelet mean volume (Bld) [Entitic vol] 8.9 fL Critically low 9.5-13.5 [facility] Comment on above: Performed By: #### P OCGLUC #### [facility] [address] [place] [address] Dr. Roscoe Segal PLT 362 103/ul Normal 150-450 [facility] Comment on above: Performed By: #### P OCGLUC #### [facility] [address] [place] [address] Dr. Roscoe Segal RBC 4.02 106/ul Critically low 4.20-5.40 [facility] Comment on above: Performed By: #### P OCGLUC #### [facility] [address] [place] [address] Dr. Roscoe Segal WBC 14.2 103/ul Critically high 4.0-11.0 [facility] Comment on above: Performed By: #### P OCGLUC #### [facility] [address] [place] [address] Dr. Roscoe Segal D-DIMERon 04-27-2022 D-DIMER 0.29 mg/L FEU Normal <=0.59 [facility] Comment on above: Performed By: #### D DIM #### [facility] [address] [place] [address] Dr. Roscoe Segal D-DIMER COMMENTS SEE BELOW Normal [facility] Comment on above: [...] hospitalization. Performed By: #### D DIM #### [facility] [address] [place] [address] Dr. Roscoe Segal LACTATE/LACTIC ACIDon 2021 Lactate [Moles/Vol] 2.1 mmol/L Critically high 0.4-1.9 [facility] Comment on above: Performed By: #### P OCGLUC #### [facility] [address] [place] [address] Dr. Roscoe Segal PROF 14(COMP METB)on 022 Albumin [Mass/Vol] 3.0 g/dL Critically low 3.4-5.0 [facility] Comment on above: Performed By: #### P OCGLUC #### [facility] [address] [place] [address] Dr. Roscoe Segal Albumin/Globulin [Mass ratio] 0.8 {ratio} Normal [facility] Comment on above: Performed By: #### P OCGLUC #### [facility] [address] [address] [address] Roscoe Segal ALP [Catalytic activity/Vol] 77 U/L Normal 46-116 [facility] Comment on above: Performed By: #### P OCGLUC #### [facility] [address] [address] [address] Roscoe Segal ALT [Catalytic activity/Vol] 14 U/L Normal 14-59 [facility] Comment on above: Performed By: #### P OCGLUC #### [facility] [address] [address] [address] Roscoe Segal Anion gap [Moles/Vol] 13.4 mmol/L Normal [facility] Comment on above: Performed By: #### P OCGLUC #### [facility] [address] [address] [address] Roscoe Segal AST [Catalytic activity/Vol] 7 U/L Critically low 15-37 [facility] Comment on above: Performed By: #### P OCGLUC #### [facility] [address] [address] [address] Roscoe Segal Bilirubin [Mass/Vol] 0.1 mg/dL Critically low 0.2-1.0 [facility] Comment on above: Performed By: #### P OCGLUC #### [facility] [address] [address] [address] Roscoe Segal Calcium [Mass/Vol] 8.9 mg/dL Normal 8.5-10.1 [facility] Comment on above: Performed By: #### P OCGLUC #### [facility] [address] [address] [address] Roscoe Segal Chloride [Moles/Vol] 105 mmol/L Normal 98-107 [facility] Comment on above: Performed By: #### P OCGLUC #### [facility] [address] [address] [address] Roscoe Segal CO2 [Moles/Vol] 21.8 mmol/L Normal 21.0-32.0 [facility] Comment on above: Performed By: #### P OCGLUC #### [facility] [address] [address] [address] Roscoe Segal Creatinine [Mass/Vol] 0.94 mg/dL Normal 0.55-1.02 [facility] Comment on above: Performed By: #### P OCGLUC #### [facility] [address] [address] [address] Roscoe Segal EGFR-AF GUATEMALAN >60 Normal >=60 [facility] Comment on above: Performed By: #### P OCGLUC #### [facility] [address] [address] [address] Roscoe Segal EGFR-NON AF GUATEMALAN >60 Normal >=60 [facility] Comment on above: Performed By: #### P OCGLUC #### [facility] [address] [address] [address] Roscoe Segal Globulin (S) [Mass/Vol] 3.7 g/dL Normal [facility] Comment on above: Performed By: #### P OCGLUC #### [facility] [address] [address] [address] Roscoe Segal Glucose [Mass/Vol] 283 mg/dL Critically high 74-106 [facility] Comment on above: Performed By: #### P OCGLUC #### [facility] [address] [address] [address] Roscoe Segal Potassium [Moles/Vol] 4.2 mmol/L Normal 3.5-5.1 [facility] Comment on above: Performed By: #### P OCGLUC #### [facility] [address] [address] [address] Roscoe Segal Protein [Mass/Vol] 6.7 g/dL Normal 6.4-8.2 [facility] Comment on above: Performed By: #### P OCGLUC #### [facility] [address] [address] [address] Roscoe Segal Sodium [Moles/Vol] 136 mmol/L Normal 136-145 [facility] Comment on above: Performed By: #### P OCGLUC #### [facility] [address] [address] [address] Roscoe Segal Urea nitrogen [Mass/Vol] 16.0 mg/dL Normal 7.0-18.0 [facility] Comment on above: Performed By: #### P OCGLUC #### [facility] [address] [address] [address] Roscoe Segal Urea nitrogen/Creatinine [Mass ratio] 17.0 mg/mg Normal [facility] Comment on above: Performed By: #### P OCGLUC #### [facility] [address] [address] [address] Roscoe Segal TROPONIN, HIGH SENSITIVITYon 04-27-2022 HSTROP 7.2 pg/mL Normal 4.0-51.3 [facility] Comment on above: Result Comment: CUT- OFF POINTS HAVE BEEN ESTABLISHED BASED ON THE FOURTH UNIVERSAL DEFINITIONS OF MYOCARDIAL INFARCTION. THE UPPER REFERENCE LIMIT (URL) OF TROPONIN, DEFINED THE 99TH PERCENTILE OF cTnI DISTRIBUTION IN A REFERENCE POPULATION, HAS BEEN CONFIRMED THE DECISION THRESHOLD FOR [place] DIAGNOSIS. Performed By: #### P OCGLUC #### [facility] [address] [address] [address] Roscoe Segal XR CHEST 1 Von [...] by: GERMAINE FARRELL Date: 2022-04-27 17:20 Normal [facility] CBC AUTO DIFFon 04-25-2022 BASO # 0.1 103/ul Normal 0.0-0.1 [facility] Comment on above: Performed By: #### P OCGLUC #### [facility] [address] [address] [address] Roscoe Segal Basophils/100 WBC (Bld) 0.4 % Normal 0.2-2.0 [facility] Comment on above: Performed By: #### P OCGLUC #### [facility] [address] [address] [address] Roscoe Segal EO # 0.1 103/ul Normal 0.0-0.7 [facility] Comment on above: Performed By: #### P OCGLUC #### [facility] [address] [address] [address] Roscoe Segal Eosinophils/100 WBC (Bld) 0.7 % Critically low 0.9-7.0 [facility] Comment on above: Performed By: #### P OCGLUC #### [facility] [address] [address] [address] Roscoe Segal Erythrocyte distribution width (RBC) [Ratio] 14.1 % Normal 11.0-15.0 [facility] Comment on above: Performed By: #### P OCGLUC #### [facility] [address] [address] [address] Roscoe Segal Hematocrit (Bld) [Volume fraction] 43.8 % Normal 36.0-48.0 [facility] Comment on above: Performed By: #### P OCGLUC #### [facility] [address] [address] [address] Roscoe Segal Hemoglobin (Bld) [Mass/Vol] 14.6 g/dL Normal 12.0-16.0 [facility] Comment on above: Performed By: #### P OCGLUC #### [facility] [address] [address] [address] Roscoe Segal IG # 0.09 10e3/ul Critically high 0.00-0.03 [facility] Comment on above: Performed By: #### P OCGLUC #### [facility] [address] [address] [address] Roscoe Segal IG % 0.6 % Critically high 0.0-0.5 [facility] Comment on above: Performed By: #### P OCGLUC #### [facility] [address] [address] [address] Roscoe Segal LYMPH # 1.5 103/ul Normal 1.2-3.8 [facility] Comment on above: Performed By: #### P OCGLUC #### [facility] [address] [address] [address] Roscoe Segal Lymphocytes/100 WBC (Bld) 9.9 % Critically low 20.5-60.0 [facility] Comment on above: Performed By: #### P OCGLUC #### [facility] [address] [address] [address] Roscoe Segal MANUAL DIFF REQ NO Normal [facility] Comment on above: Performed By: #### P OCGLUC #### [facility] [address] [address] [address] Roscoe Segal MCH (RBC) [Entitic mass] 31.8 pg Normal 26.7-34.0 [facility] Comment on above: Performed By: #### P OCGLUC #### [facility] [address] [address] [address] Roscoe Segal MCHC (RBC) [Mass/Vol] 33.3 g/dL Normal 29.9-35.2 [facility] Comment on above: Performed By: #### P OCGLUC #### [facility] [address] [address] [address] Roscoe Segal MCV (RBC) [Entitic vol] 95.4 fL Normal 81.0-99.0 [facility] Comment on above: Performed By: #### P OCGLUC #### [facility] [address] [address] [address] Roscoe Segal MONO # 1.2 103/ul Critically high 0.3-0.8 [facility] Comment on above: Performed By: #### P OCGLUC #### [facility] [address] [address] [address] Roscoe Segal Monocytes/100 WBC (Bld) 8.0 % Normal 1.7-12.0 [facility] Comment on above: Performed By: #### P OCGLUC #### [facility] [address] [place] [address] Dr. Roscoe Segal NEUT # 11.8 103/ul Critically high 1.4-6.5 [facility] Comment on above: Performed By: #### P OCGLUC #### [facility] [address] [place] [address] Dr. Roscoe Segal Neutrophils/100 WBC (Bld) 80.4 % Critically high 43.0-75.0 [facility] Comment on above: Performed By: #### P OCGLUC #### [facility] [address] [place] [address] Dr. Roscoe Segal Platelet mean volume (Bld) [Entitic vol] 8.9 fL Critically low 9.5-13.5 [facility] Comment on above: Performed By: #### P OCGLUC #### [facility] [address] [place] [address] Dr. Roscoe Segal PLT 357 103/ul Normal 150-450 [facility] Comment on above: Performed By: #### P OCGLUC #### [facility] [address] [place] [address] Dr. Roscoe Segal RBC 4.59 106/ul Normal 4.20-5.40 [facility] Comment on above: Performed By: #### P OCGLUC #### [facility] [address] [place] [address] Dr. Roscoe Segal WBC 14.7 103/ul Critically high 4.0-11.0 [facility] Comment on above: Performed By: #### P OCGLUC #### [facility] [address] [place] [address] Dr. Roscoe Segal Covid-19 PCR ([facility])on 04-16 SARS-CoV-2 (COVID-19) RNA SOILA+probe Ql (Unsp spec) Not detected Normal NOT DETECTED [facility] Comment on above: Result Comment: [...] for this test is supported by the [place] of Health and Human Service's declaration that [...] used). Performed By: #### P OCGLUC #### [facility] [address] [place] [address] Dr. Roscoe Segal PROF CHEM 8 (BAS METB)on Anion gap [Moles/Vol] 16.1 mmol/L Normal [facility] Comment on above: Performed By: #### B MP #### [facility] [address] [place] [address] Dr. Roscoe Segal Calcium [Mass/Vol] 9.2 mg/dL Normal 8.5-10.1 [facility] Comment on above: Performed By: #### B MP #### [facility] [address] [place] [address] Dr. Roscoe Segal Chloride [Moles/Vol] 104 mmol/L Normal 98-107 [facility] Comment on above: Performed By: #### B MP #### [facility] [address] [place] [address] Dr. Roscoe Segal CO2 [Moles/Vol] 22.5 mmol/L Normal 21.0-32.0 [facility] Comment on above: Performed By: #### B MP #### [facility] [address] [place] [address] Dr. Roscoe Segal Creatinine [Mass/Vol] 0.93 mg/dL Normal 0.55-1.02 [facility] Comment on above: Performed By: #### B MP #### [facility] [address] [address] [address] Roscoe Segal EGFR-AF GUATEMALAN >60 Normal >=60 [facility] Comment on above: Performed By: #### B MP #### [facility] [id number] Roscoe Segal EGFR-NON AF GUATEMALAN >60 Normal >=60 [facility] Comment on above: Performed By: #### B MP #### [facility] [address] [address] [address] Roscoe Segal Glucose [Mass/Vol] 227 mg/dL Critically high 74-106 [facility] Comment on above: Performed By: #### B MP #### [facility] [address] [address] [address] Roscoe Segal Potassium [Moles/Vol] 3.6 mmol/L Normal 3.5-5.1 [facility] Comment on above: Performed By: #### B MP #### [facility] [address] [address] [address] Roscoe Segal Sodium [Moles/Vol] 139 mmol/L Normal 136-145 [facility] Comment on above: Performed By: #### B MP #### [facility] [address] [address] [address] Roscoe Segal Urea nitrogen [Mass/Vol] 9.0 mg/dL Normal 7.0-18.0 [facility] Comment on above: Performed By: #### B MP #### [facility] [address] [address] [address] Roscoe Segal Urea nitrogen/Creatinine [Mass ratio] 9.7 mg/mg Normal [facility] Comment on above: Performed By: #### B MP #### [facility] [address] [place] [address] Dr. Roscoe Segal XR CHEST 1 Von [...] GERMAINE FARRELL Date: 2022-04-25 09:41 Normal [facility] GLYCOHEMOGLOBIN A1Con 2021 ADA RECOMMENDATION SEE BELOW Normal [facility] Comment on above: Result Comment: ADA RECOMMENDED LIMIT 4.0 - 6.0 ADA THERAPEUTIC TARGET < 7.0 ACTION SUGGESTED > 7.0 Performed By: #### P OCGLUC #### [facility] [address] [place] [address] Dr. Roscoe Segal Glucose [Mass/Vol] 128 mg/dL Normal [facility] Comment on above: Performed By: #### P OCGLUC #### [facility] [address] [address] [address] Roscoe Segal HbA1c (Bld) [Mass fraction] 6.1 % Normal 4.5-6.2 [facility] Comment on above: Performed By: #### P OCGLUC #### [facility] [address] [address] [address] Roscoe Segal LIPID PROFILEon 04-10-2022 CHOL-HDL RATIO NORM SEE BELOW Normal [facility] Comment on above: Result Comment: 3.3 - 4.4 LOW RISK 4.4 - 7.1 AVERAGE RISK 7.1 - 11.0 MODERATE RISK >11.0 HIGH RISK Performed By: #### L IPID #### [facility] [address] [address] [address] Roscoe Segal Cholesterol [Mass/Vol] 125 mg/dL Normal <=200 [facility] Comment on above: Performed By: #### L IPID #### [facility] [address] [address] [address] Roscoe Segal Cholesterol in HDL [Mass/Vol] 69 mg/dL Critically high 40-60 [facility] Comment on above: Performed By: #### L IPID #### [facility] [address] [address] [address] Roscoe Segal Cholesterol in LDL [Mass/Vol] 31.8 mg/dL Normal [facility] Comment on above: Performed By: #### L IPID #### [facility] [address] [address] [address] Roscoe Segal Cholesterol.total/Chol esterol in HDL [Mass ratio] 1.8 {ratio} Normal [facility] Comment on above: Performed By: #### L IPID #### [facility] [address] [place] [address] Dr. Roscoe Segal HDL NORMAL > or = 60 mg/dl - LO W CARDIOVASCULAR RISK <40 mg/dl - HIGH CARDIOVASCULAR RISK Normal [facility] Comment on above: Performed By: #### L IPID #### [facility] [address] [place] [address] Dr. Roscoe Segal LDL CALC NORMAL SEE BELOW Normal [facility] Comment on above: Result Comment: <100 mg/dl OPTIMAL 100 - 129 mg/dl NEAR OR ABOVE OPTIMAL 130 - 159 mg/dl BORDERLINE HIGH 160 - 189 mg/dl HIGH >190 mg/dl VERY HIGH Performed By: #### L IPID #### [facility] [address] [place] [address] Dr. Roscoe Segal Triglyceride [Mass/Vol] 121 mg/dL Normal <=150 [facility] Comment on above: Performed By: #### L IPID #### [facility] [address] [place] [address] Dr. Roscoe Segal VLDL CALC 24.2 mg/dL Normal [facility] Comment on above: Performed By: #### L IPID #### [facility] [address] [place] [address] Dr. Roscoe Segal Covid-19 PCR ([facility])on 03-16 SARS-CoV-2 (COVID-19) RNA SOILA+probe Ql (Unsp spec) Not detected Normal NOT DETECTED [facility] Comment on above: Result Comment: This test is not yet approved or cleared by the [place] FDA. When there are no FDA-approved or cleared tests available, and other criteria are met, FDA can make tests available under an emergency access mechanism called an Emergency Use Authorization (EUA). The EUA for this test is supported by the Quality Compliance Consultant of Health and Human Service's (HHS's) declaration [...] SARS-CoV-2. Performed By: #### P OCGLUC #### [facility] [address] [place] [address] Dr. Roscoe Segal XR CHEST 1 Von [...] YASMIN HUERTAS Date: 2022-03-29 15:39 Normal [facility] CBC AUTO DIFFon 03-21-2022 BASO # 0.1 103/ul Normal 0.0-0.1 [facility] Comment on above: Performed By: #### C BC #### [facility] [address] [place] [address] Dr. Roscoe Segal Basophils/100 WBC (Bld) 0.6 % Normal 0.2-2.0 [facility] Comment on above: Performed By: #### C BC #### [facility] [address] [address] [address] Roscoe Segal EO # 0.3 103/ul Normal 0.0-0.7 [facility] Comment on above: Performed By: #### C BC #### [facility] [address] [address] [address] Roscoe Segal Eosinophils/100 WBC (Bld) 2.1 % Normal 0.9-7.0 [facility] Comment on above: Performed By: #### C BC #### [facility] [address] [place] [address] Dr. Roscoe eSgal Erythrocyte distribution width (RBC) [Ratio] 14.7 % Normal 11.0-15.0 [facility] Comment on above: Performed By: #### C BC #### [facility] [address] [place] [address] Dr. Roscoe Segal Hematocrit (Bld) [Volume fraction] 47.1 % Normal 36.0-48.0 [facility] Comment on above: Performed By: #### C BC #### [facility] [address] [place] [address] Dr. Roscoe Segal Hemoglobin (Bld) [Mass/Vol] 15.6 g/dL Normal 12.0-16.0 [facility] Comment on above: Performed By: #### C BC #### [facility] [address] [place] [address] Dr. Roscoe Segal IG # 0.05 10e3/ul Critically high 0.00-0.03 [facility] Comment on above: Performed By: #### C BC #### [facility] [address] [place] [address] Dr. Rsocoe Segal IG % 0.4 % Normal 0.0-0.5 [facility] Comment on above: Performed By: #### C BC #### [facility] [address] [address] [address] Roscoe Segal LYMPH # 3.9 103/ul Critically high 1.2-3.8 [facility] Comment on above: Performed By: #### C BC #### [facility] [address] [place] [address] Dr. Roscoe Segal Lymphocytes/100 WBC (Bld) 32.1 % Normal 20.5-60.0 [facility] Comment on above: Performed By: #### C BC #### [facility] [address] [place] [address] Dr. Roscoe Segal MANUAL DIFF REQ NO Normal [facility] Comment on above: Performed By: #### C BC #### [facility] [address] [place] [address] Dr. Roscoe Segal MCH (RBC) [Entitic mass] 31.9 pg Normal 26.7-34.0 [facility] Comment on above: Performed By: #### C BC #### [facility] [address] [place] [address] Dr. Roscoe Segal MCHC (RBC) [Mass/Vol] 33.1 g/dL Normal 29.9-35.2 [facility] Comment on above: Performed By: #### C BC #### [facility] [address] [place] [address] Dr. Roscoe Segal MCV (RBC) [Entitic vol] 96.3 fL Normal 81.0-99.0 [facility] Comment on above: Performed By: #### C BC #### [facility] [address] [place] [address] Dr. Roscoe Segal MONO # 0.9 103/ul Critically high 0.3-0.8 [facility] Comment on above: Performed By: #### C BC #### [facility] [address] [place] [address] Dr. Roscoe Segal Monocytes/100 WBC (Bld) 7.4 % Normal 1.7-12.0 [facility] Comment on above: Performed By: #### C BC #### [facility] [address] [place] [address] Dr. Roscoe Segal NEUT # 7.0 103/ul Critically high 1.4-6.5 [facility] Comment on above: Performed By: #### C BC #### [facility] [address] [place] [address] Dr. Roscoe Segal Neutrophils/100 WBC (Bld) 57.4 % Normal 43.0-75.0 [facility] Comment on above: Performed By: #### C BC #### [facility] [address] [place] [address] Dr. Roscoe eSgal Platelet mean volume (Bld) [Entitic vol] 8.8 fL Critically low 9.5-13.5 [facility] Comment on above: Performed By: #### C BC #### [facility] [address] [place] [address] Dr. Roscoe Segal PLT 417 103/ul Normal 150-450 [facility] Comment on above: Performed By: #### C BC #### [facility] [address] [place] [address] Dr. Roscoe Segal RBC 4.89 106/ul Normal 4.20-5.40 [facility] Comment on above: Performed By: #### C BC #### [facility] [address] [place] [address] Dr. Roscoe Segal WBC 12.1 103/ul Critically high 4.0-11.0 [facility] Comment on above: Performed By: #### C BC #### [facility] [address] [place] [address] Dr. Roscoe Segal Covid-19 PCR ([facility])on SARS-CoV-2 (COVID-19) RNA SOILA+probe Ql (Unsp spec) Not detected Normal NOT DETECTED [facility] Comment on above: Result Comment: [...] this test is supported by the Quality Compliance Consultant of Health and Human Service's declaration that [...] used). Performed By: #### P OCGLUC #### [facility] [address] [place] [address] Dr. Roscoe Segal PROF CHEM 8 (BAS METB)on Anion gap [Moles/Vol] 13.4 mmol/L Normal [facility] Comment on above: Performed By: #### I NFLUAB #### [facility] [address] [place] [address] Dr. Roscoe Segal Calcium [Mass/Vol] 9.2 mg/dL Normal 8.5-10.1 [facility] Comment on above: Performed By: #### I NFLUAB #### [facility] [address] [place] [address] Dr. Roscoe Segal Chloride [Moles/Vol] 105 mmol/L Normal 98-107 [facility] Comment on above: Performed By: #### I NFLUAB #### [facility] [address] [place] [address] Dr. Roscoe Segal CO2 [Moles/Vol] 23.9 mmol/L Normal 21.0-32.0 [facility] Comment on above: Performed By: #### I NFLUAB #### [facility] [address] [place] [address] Dr. Roscoe Segal Creatinine [Mass/Vol] 0.93 mg/dL Normal 0.55-1.02 [facility] Comment on above: Performed By: #### I NFLUAB #### [facility] [address] [place] [address] Dr. Roscoe Segal EGFR-AF GUATEMALAN >60 Normal >=60 [facility] Comment on above: Performed By: #### I NFLUAB #### [facility] [address] [place] [address] Dr. Roscoe Segal EGFR-NON AF GUATEMALAN >60 Normal >=60 [facility] Comment on above: Performed By: #### I NFLUAB #### [facility] [address] [address] [address] Roscoe Segal Glucose [Mass/Vol] 141 mg/dL Critically high 74-106 [facility] Comment on above: Performed By: #### I NFLUAB #### [facility] [address] [address] [address] Roscoe Segal Potassium [Moles/Vol] 4.3 mmol/L Normal 3.5-5.1 [facility] Comment on above: Performed By: #### I NFLUAB #### [facility] [address] [place] [address] Dr. Roscoe Segal Sodium [Moles/Vol] 138 mmol/L Normal 136-145 [facility] Comment on above: Performed By: #### I NFLUAB #### [facility] [address] [place] [address] Dr. Roscoe Segal Urea nitrogen [Mass/Vol] 9.0 mg/dL Normal 7.0-18.0 [facility] Comment on above: Performed By: #### I NFLUAB #### [facility] [address] [place] [address] Dr. Roscoe Segal Urea nitrogen/Creatinine [Mass ratio] 9.7 mg/mg Normal [facility] Comment on above: Performed By: #### I NFLUAB #### [facility] [address] [place] [address] Dr. Roscoe Segal CARDIAC VICK 3-6on 2 CK [Catalytic activity/Vol] 60 U/L Normal 26-192 [facility] Comment on above: Performed By: #### P OCGLUC #### [facility] [address] [place] [address] Dr. Roscoe Segal CK.MB [Mass/Vol] 1.84 ng/mL Normal <=3.60 [facility] Comment on above: Performed By: #### P OCGLUC #### [facility] [address] [place] [address] Dr. Roscoe Segal HSTROP 8.3 pg/mL Normal 4.0-51.3 [facility] Comment on above: Result Comment: CUT- OFF POINTS HAVE BEEN ESTABLISHED BASED ON THE FOURTH UNIVERSAL DEFINITIONS OF MYOCARDIAL INFARCTION. THE UPPER REFERENCE LIMIT (URL) OF TROPONIN, DEFINED THE 99TH PERCENTILE OF cTnI DISTRIBUTION IN A REFERENCE POPULATION, HAS BEEN CONFIRMED THE DECISION THRESHOLD FOR [place] DIAGNOSIS. Performed By: #### P OCGLUC #### [facility] [address] [place] [address] Dr. Roscoe Segal CK [Catalytic activity/Vol] 57 U/L Normal 26-192 [facility] Comment on above: Performed By: #### I NFLUAB #### [facility] [address] [place] [address] Dr. Roscoe Segal CK.MB [Mass/Vol] 1.82 ng/mL Normal <=3.60 [facility] Comment on above: Performed By: #### I NFLUAB #### [facility] [address] [place] [address] Dr. Roscoe Segal HSTROP 8.1 pg/mL Normal 4.0-51.3 [facility] Comment on above: Result Comment: CUT- OFF POINTS HAVE BEEN ESTABLISHED BASED ON THE FOURTH UNIVERSAL DEFINITIONS OF MYOCARDIAL INFARCTION. THE UPPER REFERENCE LIMIT (URL) OF TROPONIN, DEFINED THE 99TH PERCENTILE OF cTnI DISTRIBUTION IN A REFERENCE POPULATION, HAS BEEN CONFIRMED THE DECISION THRESHOLD FOR [place] DIAGNOSIS. Performed By: #### I NFLUAB #### [facility] [address] [place] [address] Dr. Roscoe Segal CARDIAC VICK ADMITon 022 CK [Catalytic activity/Vol] 64 U/L Normal 26-192 [facility] Comment on above: Performed By: #### P OCGLUC #### [facility] [address] [place] [address] Dr. Roscoe Segal CK.MB [Mass/Vol] 2.19 ng/mL Normal <=3.60 [facility] Comment on above: Performed By: #### P OCGLUC #### [facility] [address] [place] [address] Dr. Roscoe Segal HSTROP 7.6 pg/mL Normal 4.0-51.3 [facility] Comment on above: Result Comment: CUT- OFF POINTS HAVE BEEN ESTABLISHED BASED ON THE FOURTH UNIVERSAL DEFINITIONS OF MYOCARDIAL INFARCTION. THE UPPER REFERENCE LIMIT (URL) OF TROPONIN, DEFINED THE 99TH PERCENTILE OF cTnI DISTRIBUTION IN A REFERENCE POPULATION, HAS BEEN CONFIRMED THE DECISION THRESHOLD FOR [place] DIAGNOSIS. Performed By: #### P OCGLUC #### [facility] [address] [place] [address] Dr. Roscoe Segal GWEN 50 ng/mL Normal 9-82 [facility] Comment on above: Performed By: #### P OCGLUC #### [facility] [address] [place] [address] Dr. Roscoe Segal CBC AUTO DIFFon 03-03-2022 BASO # 0.1 103/ul Normal 0.0-0.1 [facility] Comment on above: Performed By: #### P OCGLUC #### [facility] [address] [place] [address] Dr. Roscoe Segal Basophils/100 WBC (Bld) 0.7 % Normal 0.2-2.0 [facility] Comment on above: Performed By: #### P OCGLUC #### [facility] [address] [place] [address] Dr. Roscoe Segal EO # 0.2 103/ul Normal 0.0-0.7 [facility] Comment on above: Performed By: #### P OCGLUC #### [facility] [address] [place] [address] Dr. Roscoe Segal Eosinophils/100 WBC (Bld) 1.3 % Normal 0.9-7.0 [facility] Comment on above: Performed By: #### P OCGLUC #### [facility] [address] [place] [address] Dr. Roscoe Segal Erythrocyte distribution width (RBC) [Ratio] 14.5 % Normal 11.0-15.0 [facility] Comment on above: Performed By: #### P OCGLUC #### [facility] [address] [place] [address] Dr. Roscoe Segal Hematocrit (Bld) [Volume fraction] 44.8 % Normal 36.0-48.0 [facility] Comment on above: Performed By: #### P OCGLUC #### [facility] [address] [address] [address] Roscoe Segal Hemoglobin (Bld) [Mass/Vol] 15.0 g/dL Normal 12.0-16.0 [facility] Comment on above: Performed By: #### P OCGLUC #### [facility] [address] [address] [address] Roscoe Segal IG # 0.07 10e3/ul Critically high 0.00-0.03 [facility] Comment on above: Performed By: #### P OCGLUC #### [facility] [address] [place] [address] Dr. Roscoe Segal IG % 0.6 % Critically high 0.0-0.5 [facility] Comment on above: Performed By: #### P OCGLUC #### [facility] [address] [place] [address] Dr. Roscoe Segal LYMPH # 4.7 103/ul Critically high 1.2-3.8 [facility] Comment on above: Performed By: #### P OCGLUC #### [facility] [address] [place] [address] Dr. Roscoe Segal Lymphocytes/100 WBC (Bld) 38.7 % Normal 20.5-60.0 [facility] Comment on above: Performed By: #### P OCGLUC #### [facility] [address] [place] [address] Dr. Roscoe Segal MANUAL DIFF REQ NO Normal [facility] Comment on above: Performed By: #### P OCGLUC #### [facility] [address] [address] [address] Roscoe Segal MCH (RBC) [Entitic mass] 32.1 pg Normal 26.7-34.0 [facility] Comment on above: Performed By: #### P OCGLUC #### [facility] [address] [place] [address] Dr. Roscoe Segal MCHC (RBC) [Mass/Vol] 33.5 g/dL Normal 29.9-35.2 [facility] Comment on above: Performed By: #### P OCGLUC #### [facility] [address] [place] [address] Dr. Roscoe Segal MCV (RBC) [Entitic vol] 95.7 fL Normal 81.0-99.0 [facility] Comment on above: Performed By: #### P OCGLUC #### [facility] [address] [place] [address] Dr. Roscoe Segal MONO # 1.0 103/ul Critically high 0.3-0.8 [facility] Comment on above: Performed By: #### P OCGLUC #### [facility] [address] [place] [address] Dr. Roscoe Segal Monocytes/100 WBC (Bld) 7.9 % Normal 1.7-12.0 [facility] Comment on above: Performed By: #### P OCGLUC #### [facility] [address] [place] [address] Dr. Roscoe Segal NEUT # 6.2 103/ul Normal 1.4-6.5 [facility] Comment on above: Performed By: #### P OCGLUC #### [facility] [address] [place] [address] Dr. Roscoe Segal Neutrophils/100 WBC (Bld) 50.8 % Normal 43.0-75.0 [facility] Comment on above: Performed By: #### P OCGLUC #### [facility] [address] [place] [address] Dr. Roscoe Segal Platelet mean volume (Bld) [Entitic vol] 8.8 fL Critically low 9.5-13.5 [facility] Comment on above: Performed By: #### P OCGLUC #### [facility] [address] [place] [address] Dr. Roscoe Segal PLT 407 103/ul Normal 150-450 [facility] Comment on above: Performed By: #### P OCGLUC #### [facility] [address] [place] [address] Dr. Roscoe Segal RBC 4.68 106/ul Normal 4.20-5.40 [facility] Comment on above: Performed By: #### P OCGLUC #### [facility] [address] [address] [address] Roscoe Segal WBC 12.2 103/ul Critically high 4.0-11.0 [facility] Comment on above: Performed By: #### P OCGLUC #### [facility] [address] [place] [address] Dr. Roscoe Segal LACTATE/LACTIC ACIDon 2021 Lactate [Moles/Vol] 2.1 mmol/L Critically high 0.4-1.9 [facility] Comment on above: Performed By: #### P OCGLUC #### [facility] [address] [place] [address] Dr. Roscoe Segal Lactate [Moles/Vol] 2.2 mmol/L Critically high 0.4-1.9 [facility] Comment on above: Performed By: #### P OCGLUC #### [facility] [address] [place] [address] Dr. Roscoe Segal POINT OF CARE GLUCOSEon 02-13 Glucose [Mass/Vol] 109 mg/dL Critically high 74-106 [facility] Comment on above: Performed By: #### P OCGLUC #### [facility] [address] [place] [address] Dr. Roscoe Segal Glucose [Mass/Vol] 108 mg/dL Critically high 74-106 [facility] Comment on above: Performed By: #### P OCGLUC #### [facility] [address] [place] [address] Dr. Roscoe Segal Glucose [Mass/Vol] 98 mg/dL Normal 74-106 [facility] Comment on above: Performed By: #### I NFLUAB #### [facility] [address] [place] [address] Dr. Roscoe Segal Glucose [Mass/Vol] 274 mg/dL Critically high 74-106 [facility] Comment on above: Performed By: #### C BC #### [facility] [address] [place] [address] Dr. Roscoe Segal Glucose [Mass/Vol] 87 mg/dL Normal 74-106 [facility] Comment on above: Performed By: #### P OCGLUC #### [facility] [address] [address] [address] Roscoe Segal Glucose [Mass/Vol] 98 mg/dL Normal 74-106 [facility] Comment on above: Performed By: #### P OCGLUC #### [facility] [address] [address] [address] Roscoe Segal Glucose [Mass/Vol] 131 mg/dL Critically high 74-106 [facility] Comment on above: Performed By: #### P OCGLUC #### [facility] [address] [place] [address] Dr. Roscoe Segal Glucose [Mass/Vol] 59 mg/dL Critically low 74-106 [facility] Comment on above: Performed By: #### P OCGLUC #### [facility] [address] [place] [address] Dr. Roscoe Segal Glucose [Mass/Vol] 95 mg/dL Normal 74-106 [facility] Comment on above: Performed By: #### P OCGLUC #### [facility] [address] [place] [address] Dr. Roscoe Segal PROF CHEM 8 (BAS METB)on Anion gap [Moles/Vol] 15.2 mmol/L Normal [facility] Comment on above: Performed By: #### P OCGLUC #### [facility] [address] [place] [address] Dr. Roscoe Segal Calcium [Mass/Vol] 8.7 mg/dL Normal 8.5-10.1 [facility] Comment on above: Performed By: #### P OCGLUC #### [facility] [address] [place] [address] Dr. Roscoe Segal Chloride [Moles/Vol] 108 mmol/L Critically high 98-107 [facility] Comment on above: Performed By: #### P OCGLUC #### [facility] [address] [place] [address] Dr. Roscoe Segal CO2 [Moles/Vol] 20.8 mmol/L Critically low 21.0-32.0 [facility] Comment on above: Performed By: #### P OCGLUC #### [facility] [address] [address] [address] Roscoe Segal Creatinine [Mass/Vol] 1.21 mg/dL Critically high 0.55-1.02 [facility] Comment on above: Performed By: #### P OCGLUC #### [facility] [address] [address] [address] Roscoe Segal EGFR-AF GUATEMALAN 58 mL/min/1.73m2 Critically low >=60 [facility] Comment on above: Performed By: #### P OCGLUC #### [facility] [address] [address] [address] Roscoe Segal EGFR-NON AF GUATEMALAN 48 mL/min/1.73m2 Critically low >=60 [facility] Comment on above: Performed By: #### P OCGLUC #### [facility] [address] [address] [address] Roscoe Segal Glucose [Mass/Vol] 54 mg/dL Critically low 74-106 [facility] Comment on above: Performed By: #### P OCGLUC #### [facility] [address] [address] [address] Roscoe Segal Potassium [Moles/Vol] 3.0 mmol/L Critically low 3.5-5.1 [facility] Comment on above: Performed By: #### P OCGLUC #### [facility] [address] [address] [address] Roscoe Segal Sodium [Moles/Vol] 141 mmol/L Normal 136-145 [facility] Comment on above: Performed By: #### P OCGLUC #### [facility] [address] [address] [address] Roscoe Segal Urea nitrogen [Mass/Vol] 11.0 mg/dL Normal 7.0-18.0 [facility] Comment on above: Performed By: #### P OCGLUC #### [facility] [address] [address] [address] Roscoe Segal Urea nitrogen/Creatinine [Mass ratio] 9.1 mg/mg Normal [facility] Comment on above: Performed By: #### P OCGLUC #### [facility] [address] [place] [address] Dr. Roscoe Segal XR CHEST 1 Von [...] JUAN BARKER Date: 2022-03-03 01:14 Normal [facility] CBC AUTO DIFFon 01-01-2022 BASO # 0.1 103/ul Normal 0.0-0.1 [facility] Comment on above: Performed By: #### P OCGLUC #### [facility] [address] [place] [address] Dr. Roscoe Segal Basophils/100 WBC (Bld) 0.7 % Normal 0.2-2.0 [facility] Comment on above: Performed By: #### P OCGLUC #### [facility] [address] [place] [address] Dr. Roscoe Segal EO # 0.1 103/ul Normal 0.0-0.7 [facility] Comment on above: Performed By: #### P OCGLUC #### [facility] [address] [address] [address] Roscoe Segal Eosinophils/100 WBC (Bld) 0.9 % Normal 0.9-7.0 [facility] Comment on above: Performed By: #### P OCGLUC #### [facility] [address] [place] [address] Dr. Roscoe Segal Erythrocyte distribution width (RBC) [Ratio] 14.5 % Normal 11.0-15.0 [facility] Comment on above: Performed By: #### P OCGLUC #### [facility] [address] [address] [address] Roscoe Segal Hematocrit (Bld) [Volume fraction] 41.4 % Normal 36.0-48.0 [facility] Comment on above: Performed By: #### P OCGLUC #### [facility] [address] [address] [address] Roscoe Segal Hemoglobin (Bld) [Mass/Vol] 13.4 g/dL Normal 12.0-16.0 [facility] Comment on above: Performed By: #### P OCGLUC #### [facility] [address] [address] [address] Roscoe Segal IG # 0.08 10e3/ul Critically high 0.00-0.03 [facility] Comment on above: Performed By: #### P OCGLUC #### [facility] [address] [place] [address] Dr. Roscoe Segal IG % 0.7 % Critically high 0.0-0.5 [facility] Comment on above: Performed By: #### P OCGLUC #### [facility] [address] [place] [address] Dr. Roscoe Segal LYMPH # 2.4 103/ul Normal 1.2-3.8 [facility] Comment on above: Performed By: #### P OCGLUC #### [facility] [address] [place] [address] Dr. Roscoe Segal Lymphocytes/100 WBC (Bld) 22.0 % Normal 20.5-60.0 [facility] Comment on above: Performed By: #### P OCGLUC #### [facility] [address] [place] [address] Dr. Roscoe Segal MANUAL DIFF REQ NO Normal [facility] Comment on above: Performed By: #### P OCGLUC #### [facility] [address] [place] [address] Dr. Roscoe Segal MCH (RBC) [Entitic mass] 31.2 pg Normal 26.7-34.0 [facility] Comment on above: Performed By: #### P OCGLUC #### [facility] [address] [address] [address] Roscoe Segal MCHC (RBC) [Mass/Vol] 32.4 g/dL Normal 29.9-35.2 [facility] Comment on above: Performed By: #### P OCGLUC #### [facility] [address] [address] [address] Roscoe Segal MCV (RBC) [Entitic vol] 96.3 fL Normal 81.0-99.0 [facility] Comment on above: Performed By: #### P OCGLUC #### [facility] [address] [address] [address] Rsocoe Segal MONO # 0.9 103/ul Critically high 0.3-0.8 [facility] Comment on above: Performed By: #### P OCGLUC #### [facility] [address] [place] [address] Dr. Roscoe Segal Monocytes/100 WBC (Bld) 7.7 % Normal 1.7-12.0 [facility] Comment on above: Performed By: #### P OCGLUC #### [facility] [address] [address] [address] Roscoe Segal NEUT # 7.5 103/ul Critically high 1.4-6.5 [facility] Comment on above: Performed By: #### P OCGLUC #### [facility] [address] [place] [address] Dr. Roscoe Segal Neutrophils/100 WBC (Bld) 68.0 % Normal 43.0-75.0 [facility] Comment on above: Performed By: #### P OCGLUC #### [facility] [address] [address] [address] Roscoe Segal Platelet mean volume (Bld) [Entitic vol] 8.8 fL Critically low 9.5-13.5 [facility] Comment on above: Performed By: #### P OCGLUC #### [facility] [address] [place] [address] Dr. Roscoe Segal PLT 317 103/ul Normal 150-450 [facility] Comment on above: Performed By: #### P OCGLUC #### [facility] [address] [place] [address] Dr. Roscoe Segal RBC 4.30 106/ul Normal 4.20-5.40 [facility] Comment on above: Performed By: #### P OCGLUC #### [facility] [address] [address] [address] Roscoe Segal WBC 11.1 103/ul Critically high 4.0-11.0 [facility] Comment on above: Performed By: #### P OCGLUC #### [facility] [address] [place] [address] Dr. Roscoe Segal Covid-19 PCR ([facility])on 12-14 SARS-CoV-2 (COVID-19) RNA SOILA+probe Ql (Unsp spec) Not detected Normal NOT DETECTED [facility] Comment on above: Result Comment: [...] for this test is supported by the [place] of Health and Human Service's declaration that [...] used). Performed By: #### P OCGLUC #### [facility] [address] [place] [address] Dr. Roscoe Segal ETHANOL (BLD ALC)on 01-02-20 22 ALC NOTE NOTE: 80 mg/dl is th e legal limit for a blood alcohol level Normal [facility] Comment on above: Performed By: #### C BC #### [facility] [address] [place] [address] Dr. Roscoe Segal Ethanol [Mass/Vol] 197 mg/dL Normal [facility] Comment on above: Performed By: #### C BC #### [facility] [address] [address] [address] Roscoe Segal PROF CHEM 8 (BAS METB)on Anion gap [Moles/Vol] 16.4 mmol/L Normal [facility] Comment on above: Performed By: #### I NFLUAB #### [facility] [address] [place] [address] Dr. Roscoe Segal Calcium [Mass/Vol] 8.2 mg/dL Critically low 8.5-10.1 [facility] Comment on above: Performed By: #### I NFLUAB #### [facility] [address] [place] [address] Dr. Roscoe Segal Chloride [Moles/Vol] 107 mmol/L Normal 98-107 [facility] Comment on above: Performed By: #### I NFLUAB #### [facility] [address] [place] [address] Dr. Roscoe Segal CO2 [Moles/Vol] 21.3 mmol/L Normal 21.0-32.0 [facility] Comment on above: Performed By: #### I NFLUAB #### [facility] [address] [place] [address] Dr. Roscoe Segal Creatinine [Mass/Vol] 0.78 mg/dL Normal 0.55-1.02 [facility] Comment on above: Performed By: #### I NFLUAB #### [facility] [address] [place] [address] Dr. Roscoe Segal EGFR-AF GUATEMALAN >60 Normal >=60 [facility] Comment on above: Performed By: #### I NFLUAB #### [facility] [address] [place] [address] Dr. Roscoe Segal EGFR-NON AF GUATEMALAN >60 Normal >=60 [facility] Comment on above: Performed By: #### I NFLUAB #### [facility] [address] [place] [address] Dr. Roscoe Segal Glucose [Mass/Vol] 310 mg/dL Critically high 74-106 [facility] Comment on above: Performed By: #### I NFLUAB #### [facility] [address] [address] [address] Roscoe Segal Potassium [Moles/Vol] 3.7 mmol/L Normal 3.5-5.1 [facility] Comment on above: Performed By: #### I NFLUAB #### [facility] [address] [address] [address] Roscoe Segal Sodium [Moles/Vol] 141 mmol/L Normal 136-145 [facility] Comment on above: Performed By: #### I NFLUAB #### [facility] [address] [place] [address] Dr. Roscoe Segal Urea nitrogen [Mass/Vol] 8.0 mg/dL Normal 7.0-18.0 [facility] Comment on above: Performed By: #### I NFLUAB #### [facility] [address] [place] [address] Dr. Roscoe Segal Urea nitrogen/Creatinine [Mass ratio] 10.3 mg/mg Normal [facility] Comment on above: Performed By: #### I NFLUAB #### [facility] [address] [place] [address] Dr. Roscoe Segal XR CHEST 1 Von [...] by: GERMAINE FARRELL Date: 2022-01-01 19:08 Normal [facility] CBC AUTO DIFFon 12-24-2021 BASO # 0.1 103/ul Normal 0.0-0.1 [facility] Comment on above: Performed By: #### I NFLUAB #### [facility] [address] [place] [address] Dr. Roscoe Segal Basophils/100 WBC (Bld) 0.9 % Normal 0.2-2.0 [facility] Comment on above: Performed By: #### I NFLUAB #### [facility] [address] [place] [address] Dr. Roscoe Segal EO # 0.2 103/ul Normal 0.0-0.7 [facility] Comment on above: Performed By: #### I NFLUAB #### [facility] [address] [place] [address] Dr. Roscoe Segal Eosinophils/100 WBC (Bld) 2.4 % Normal 0.9-7.0 [facility] Comment on above: Performed By: #### I NFLUAB #### [facility] [address] [place] [address] Dr. Roscoe Segal Erythrocyte distribution width (RBC) [Ratio] 14.8 % Normal 11.0-15.0 [facility] Comment on above: Performed By: #### I NFLUAB #### [facility] [address] [place] [address] Dr. Roscoe Segal Hematocrit (Bld) [Volume fraction] 41.1 % Normal 36.0-48.0 [facility] Comment on above: Performed By: #### I NFLUAB #### [facility] [address] [place] [address] Dr. Roscoe Segal Hemoglobin (Bld) [Mass/Vol] 13.0 g/dL Normal 12.0-16.0 [facility] Comment on above: Performed By: #### I NFLUAB #### [facility] [address] [place] [address] Dr. Roscoe Segal IG # 0.10 10e3/ul Critically high 0.00-0.03 [facility] Comment on above: Performed By: #### I NFLUAB #### [facility] [address] [place] [address] Dr. Roscoe Segal IG % 1.1 % Critically high 0.0-0.5 [facility] Comment on above: Performed By: #### I NFLUAB #### [facility] [address] [place] [address] Dr. Roscoe Segal LYMPH # 2.0 103/ul Normal 1.2-3.8 [facility] Comment on above: Performed By: #### I NFLUAB #### [facility] [address] [place] [address] Dr. Roscoe Segal Lymphocytes/100 WBC (Bld) 21.5 % Normal 20.5-60.0 [facility] Comment on above: Performed By: #### I NFLUAB #### [facility] [address] [place] [address] Dr. Roscoe Segal MANUAL DIFF REQ NO Normal [facility] Comment on above: Performed By: #### I NFLUAB #### [facility] [address] [place] [address] Dr. Roscoe Segal MCH (RBC) [Entitic mass] 31.0 pg Normal 26.7-34.0 [facility] Comment on above: Performed By: #### I NFLUAB #### [facility] [address] [place] [address] Dr. Roscoe Segal MCHC (RBC) [Mass/Vol] 31.6 g/dL Normal 29.9-35.2 [facility] Comment on above: Performed By: #### I NFLUAB #### [facility] [address] [place] [address] Dr. Roscoe Segal MCV (RBC) [Entitic vol] 98.1 fL Normal 81.0-99.0 [facility] Comment on above: Performed By: #### I NFLUAB #### [facility] [address] [place] [address] Dr. Roscoe Segal MONO # 0.8 103/ul Normal 0.3-0.8 [facility] Comment on above: Performed By: #### I NFLUAB #### [facility] [address] [place] [address] Dr. Roscoe Segal Monocytes/100 WBC (Bld) 8.9 % Normal 1.7-12.0 [facility] Comment on above: Performed By: #### I NFLUAB #### [facility] [address] [address] [address] Roscoe Segal NEUT # 6.0 103/ul Normal 1.4-6.5 [facility] Comment on above: Performed By: #### I NFLUAB #### [facility] [address] [address] [address] Roscoe Segal Neutrophils/100 WBC (Bld) 65.2 % Normal 43.0-75.0 [facility] Comment on above: Performed By: #### I NFLUAB #### [facility] [address] [place] [address] Dr. Roscoe Segal Platelet mean volume (Bld) [Entitic vol] 9.4 fL Critically low 9.5-13.5 [facility] Comment on above: Performed By: #### I NFLUAB #### [facility] [address] [place] [address] Dr. Roscoe Segal PLT 332 103/ul Normal 150-450 [facility] Comment on above: Performed By: #### I NFLUAB #### [facility] [address] [place] [address] Dr. Roscoe Segal RBC 4.19 106/ul Critically low 4.20-5.40 [facility] Comment on above: Performed By: #### I NFLUAB #### [facility] [address] [place] [address] Dr. Roscoe Segal WBC 9.2 103/ul Normal 4.0-11.0 [facility] Comment on above: Performed By: #### I NFLUAB #### [facility] [address] [place] [address] Dr. Roscoe Segal GLYCOHEMOGLOBIN A1Con 2021 ADA RECOMMENDATION SEE BELOW Normal [facility] Comment on above: Result Comment: ADA RECOMMENDED LIMIT 4.0 - 6.0 ADA THERAPEUTIC TARGET < 7.0 ACTION SUGGESTED > 7.0 Performed By: #### C BC #### [facility] [address] [place], [place] [address] Dr. Roscoe Segal Glucose [Mass/Vol] 217 mg/dL Normal [facility] Comment on above: Performed By: #### C BC #### [facility] [id number] Roscoe Segal HbA1c (Bld) [Mass fraction] 9.2 % Critically high 4.5-6.2 [facility] Comment on above: Performed By: #### C BC #### [facility] [address] [place] [address] Dr. Roscoe Segal LIPID PROFILEon 12-24-2021 CHOL-HDL RATIO NORM SEE BELOW [facility] Comment on above: Result Comment: 3.3 - 4.4 LOW RISK 4.4 - 7.1 AVERAGE RISK 7.1 - 11.0 MODERATE RISK >11.0 HIGH RISK Performed By: #### C BC #### [facility] [address] [place] [address] Dr. Roscoe Segal Cholesterol [Mass/Vol] 191 mg/dL Normal <=200 [facility] Comment on above: Performed By: #### C BC #### [facility] [address] [place] [address] Dr. Roscoe Segal Cholesterol in HDL [Mass/Vol] 52 mg/dL Normal 40-60 [facility] Comment on above: Performed By: #### C BC #### [facility] [address] [place] [address] Dr. Roscoe Segal Cholesterol in LDL [Mass/Vol] 95.6 mg/dL Normal [facility] Comment on above: Performed By: #### C BC #### [facility] [address] [address] [address] Roscoe Segal Cholesterol.total/Chol esterol in HDL [Mass ratio] 3.7 {ratio} Normal [facility] Comment on above: Performed By: #### C BC #### [facility] [address] [place] [address] Dr. Roscoe Segal HDL NORMAL > or = 60 mg/dl - LO W CARDIOVASCULAR RISK <40 mg/dl - HIGH CARDIOVASCULAR RISK Normal [facility] Comment on above: Performed By: #### C BC #### [facility] [address] [address] [address] Roscoe Segal LDL CALC NORMAL SEE BELOW Normal [facility] Comment on above: Result Comment: <100 mg/dl OPTIMAL 100 - 129 mg/dl NEAR OR ABOVE OPTIMAL 130 - 159 mg/dl BORDERLINE HIGH 160 - 189 mg/dl HIGH >190 mg/dl VERY HIGH Performed By: #### C BC #### [facility] [address] [address] [address] Roscoe Segal Triglyceride [Mass/Vol] 217 mg/dL Critically high <=150 [facility] Comment on above: Performed By: #### C BC #### [facility] [address] [place] [address] Dr. Roscoe Segal VLDL CALC 43.4 mg/dL Normal [facility] Comment on above: Performed By: #### C BC #### [facility] [address] [place] [address] Dr. Roscoe Segal MICROALBUMIN, RAND URon 12-14 mALB <1.3 Normal <=30.0 [facility] Comment on above: Performed By: #### P OCGLUC #### [facility] [address] [place] [address] Dr. Roscoe Segal PROF 14(COMP METB)on 022 Albumin [Mass/Vol] 3.0 g/dL Critically low 3.4-5.0 [facility] Comment on above: Performed By: #### C BC #### [facility] [address] [place] [address] Dr. Roscoe Segal Albumin/Globulin [Mass ratio] 0.9 {ratio} Normal [facility] Comment on above: Performed By: #### C BC #### [facility] [address] [place] [address] Dr. Roscoe Segal ALP [Catalytic activity/Vol] 72 U/L Normal 46-116 [facility] Comment on above: Performed By: #### C BC #### [facility] [address] [place] [address] Dr. Roscoe Segal ALT [Catalytic activity/Vol] 17 U/L Normal 14-59 [facility] Comment on above: Performed By: #### C BC #### [facility] [address] [address] [address] Roscoe Segal Anion gap [Moles/Vol] 12.3 mmol/L Normal [facility] Comment on above: Performed By: #### C BC #### [facility] [address] [address] [address] Roscoe Segal AST [Catalytic activity/Vol] 15 U/L Normal 15-37 [facility] Comment on above: Performed By: #### C BC #### [facility] [address] [place] [address] Dr. Roscoe Segal Bilirubin [Mass/Vol] 0.1 mg/dL Critically low 0.2-1.0 [facility] Comment on above: Performed By: #### C BC #### [facility] [address] [place] [address] Dr. Roscoe Segal Calcium [Mass/Vol] 8.9 mg/dL Normal 8.5-10.1 [facility] Comment on above: Performed By: #### C BC #### [facility] [address] [place] [address] Dr. Roscoe Segal Chloride [Moles/Vol] 102 mmol/L Normal 98-107 [facility] Comment on above: Performed By: #### C BC #### [facility] [address] [place] [address] Dr. Roscoe Segal CO2 [Moles/Vol] 24.0 mmol/L Normal 21.0-32.0 [facility] Comment on above: Performed By: #### C BC #### [facility] [address] [place] [address] Dr. Roscoe Segal Creatinine [Mass/Vol] 0.91 mg/dL Normal 0.55-1.02 [facility] Comment on above: Performed By: #### C BC #### [facility] [address] [place] [address] Dr. Roscoe Segal EGFR-AF GUATEMALAN >60 Normal >=60 [facility] Comment on above: Performed By: #### C BC #### [facility] [address] [address] [address] Roscoe Segal EGFR-NON AF GUATEMALAN >60 Normal >=60 [facility] Comment on above: Performed By: #### C BC #### [facility] [address] [address] [address] Roscoe Segal Globulin (S) [Mass/Vol] 3.4 g/dL Normal [facility] Comment on above: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 9:08 am [facility] [address] [place] [address] Cardiothoracic Progress Note Signed Patient: Christiane Perez MR#: [id number] : 1975 Acct:[id number] Age/Sex: 48 / F Adm Date: 3 Loc: Room: [address] [place] [address] Type: ADM IN Attending Dr: Eron Wood [...] MPV Neut % (Auto) Lymph % (Auto) [place] % (Auto) Eos % (Auto) Baso % (Auto) Nucleat RBC Rel Count Neut # (Auto) Lymph # (Auto) [place] # (Auto) Eos # (Auto) Baso # [...] MPV Neut % (Auto) Lymph % (Auto) [place] % (Auto) Eos % (Auto) Baso % (Auto) Nucleat RBC Rel Count Neut # (Auto) Lymph # (Auto) [place] # (Auto) Eos # (Auto) Baso # [...] % (Auto) 73.7 Lymph % (Auto) 13.5 [place] % (Auto) 9.2 Eos % (Auto) 2.9 Baso % (Auto) 0.7 Nucleat RBC Rel Count 0.1 Neut # (Auto) 7.2 Lymph # (Auto) 1.3 [place] # (Auto) 0.9 H Eos # (Auto) [...] MPV Neut % (Auto) Lymph % (Auto) [place] % (Auto) Eos % (Auto) Baso % (Auto) Nucleat RBC Rel Count Neut # (Auto) Lymph # (Auto) [place] # (Auto) Eos # (Auto) Baso # [...] signed by Valeriano Horta MD> 03/12/23 0908 [facility] Work Phone: 1(900) 940-743707-28-2023 Progress note Author Eron Wood [facility] March 12, 2023 9:03am Note Date/Time March 12, 2023 9:03 am [facility] [address] [place] [address] Hospitalist Progress Note Signed Patient: Christiane Perez MR#: [id number] : 1975 Acct:[id number] Age/Sex: 48 / F Adm Date: 3 Loc: Room: [address] [place] [address] Type: ADM IN Attending Dr: Eron Wood [...] 03/09/24 16:59 Not Given TID.WM.HS [facility] Protocol Insulin Glargine 10 units 03/12/23 21:00 [...] Appreciate pulmonary and thoracic surgery. Continue morphine, [place]wood as needed for pain. (2) Pneumonia: Plan: [...] signed by Eron Wood MD> 03/12/23 0903 [facility] Work Phone: [phone]) [phone] [facility] Consult note Author Errol Nicole [facility] March 11, 2023 12:00pm Note Date/Time March 11, 2023 12:0 0pm [facility] [address] [place] [address] Pulmonology Consult Note Signed Patient: Christiane Perez MR#: [id number] : 1975 Acct:[id number] Age/Sex: 48 / F Adm Date: 3 Loc: Room: [address] [place] [address] Type: ADM IN Attending Dr: Eron Wood [...] x- ray, then a CT, done at [place] and was told that she had an abscess in the left lung . She refused to be admitted, went home on Levaquin and clindamycin, followed up with her primary care physician who advised her to come back and be admitted here at [facility]. Patient has a large dense consolidated [...] mcg-glycopyr 9 mcg-formot 4.8 mcg/actuation HFA inhaler (Zuoraztri Decade Worldwidephere) 1 puff inhalation DAILY 03/10/23 [History Confirmed [...] signed by Errol Nicole MD> 03/11/23 1200 [facility] Work Phone: 1(398) 585-605207-27-2023 Progress note Author Eron Wood [facility] March 11, 2023 10:50am Note Date/Time March 11, 2023 10:4 9am [facility] [address] [place] [address] Hospitalist Progress Note Signed Patient: Christiane Perez MR#: [id number] : 1975 Acct:[id number] Age/Sex: 48 / F Adm Date: 3 Loc: Room: [address] [place] [address] Type: ADM IN Attending Dr: Eron Wood [...] 1,000 Ml IV 03/09/24 16:44 75 mls/hr .[id number] ROGELIO Administration Magnesium Sulfate 2 gm in [...] 03/09/24 16:59 Not Given TID.WM.HS [facility] Protocol Insulin Glargine 20 units 03/10/23 21:00 [...] and thoracic surgery. Sendsputum culture. Continue morphine, [place] as needed for pain. Stop IV fluid [...] signed by Eron Wood MD> 03/11/23 1050 [facility] Work Phone: 1(860) 177-516307-26-2023 History and physical note Author Eron Wood [facility] March 10, 2023 4:48pm Note Date/Time March 10, 2023 4:49 pm [facility] [address] [place] [address] Hospitalist H&P Signed Patient: Christiane Perez MR#: [id number] : 1975 Acct:[id number] Age/Sex: 48 / F Adm Date: 3 Loc: Room: [address] [place] [address] Type: ADM IN Attending Dr: Eron Wood [...] negative unless noted below or in HPI [facility] Medical History (Updated 03/10/23 @ 16:46 by [...] 9 mcg-formot 4.8 mcg/actuation HFA inhaler (Breztri Decade Worldwidephere) 1 puff inhalation DAILY 03/10/23 [History Confirmed [...] % (Auto) 5.7 % (.) 03/10/23 12:55 [place] % (Auto) 7.2 % (.) 03/10/23 12:55 Eos % (Auto) 1.1 % (.) 03/10/23 12:55 Baso % (Auto) 0.2 % (.) 03/10/23 12:55 Nucleat RBC Rel Count 0.1 /100 WBC (0-0.5) 03/10/23 12:55 Neut # (Auto) 14.2 x10E3/uL (1.8-7.7) H 03/10/23 12:55 Lymph # (Auto) 1.0 x10E3/uL (1.00-4.8) 03/10/23 12:55 [place] # (Auto) 1.2 x10E3/uL (0.0-0.8) H 03/10/23 [...] <Electronically signed by Eron Wood MD> 03/10/23 7417 [facility] Work Phone: 1(695) [phone] Consult note Author Valeriano Horta [facility] March 10, 2023 3:27pm Note Date/Time March 10, 2023 3:27 pm [facility] [address] [place] [address] Cardiothoracic Consult Note Signed Patient: Christiane Perez MR#: [id number] : 1975 Acct:[id number] Age/Sex: 48 / F Adm Date: 3 Loc: ER Room: Type: [facility] ER Attending Dr: Copies to: DO Valeriano Morris MD Shaikh Fawwad, MD~ HPI Consult Date: 03/10/23 Primary Care Provider: Shaikh Anthony MD Consult Narrative Reason for consult: lung abscess HPI: Ms. Perez is a 48 year old female with persistent SOB. CT read as lung abscess with elevated WBC. Pt agreed with admission. Chart and CT reviewed. [facility] Medical History (Updated 03/10/23 @ 15:26 by [...] signed by Valeriano Horta MD> 03/10/23 1527 [facility] Work Phone: 1(128) 990-851307-02-2023 Evaluation note* Encounter Date Diagnosis Assessment Notes [...] evaluation for possible sequelae into bronchitis/pneumoni a. eegoes Other 08-26-2022 NotePROCEDURE: XR HIP RT 2 3V WO PELVIS HISTORY: Pain in right hip joint , chronic COMPARISON: None. FINDINGS: BONES:No fracture, acute abnormality, or significant arthropathy. SOFT TISSUES:No visible soft tissue swelling. EFFUSION:None visible. OTHER: Negative. IMPRESSION: 1. Normal examination. Electronically authenticated by: GERMAINE FARRELL Date: 2022-04-10 08:14[facility] Krunal Kelly [facility] March 17, 2023 1:24pm Note Date/Time March 14, 2023 1:54 pm [facility] [address] [place] [address] Discharge Summary Signed Patient: Christiane Perez MR#: [id number] : 1975 Acct:[id number] Age/Sex: 48 / F Adm Date: 3 Loc: Room: [address] [place] [address]: Krunal Kelly DO Copies to: [...] % (Auto) 71.0, Lymph % (Auto) 16.8, [place] % (Auto) 7.1, Eos % (Auto) 4.4, Baso % (Auto) 0.7, Nucleat RBC Rel Count 0.1, Neut # (Auto) 6.8, Lymph # (Auto) 1.6, [place] # (Auto) 0.7, Eos # (Auto) 0.4, [...] signed by Krunal Kelly, DO> 03/17/23 1324 [facility] Work Phone: Evaluation noteNo Assessments Information Available [facility] assessment information available [facility] noteNo InformationNort Hookit Other Evaluation note* Diagnosis Onset Date Resolution Status Abscess of left lung with pneumonia acute Abscess of lung acute COPD (chronic obstructive pulmonary disease) acute Diabetes mellitus, type 2 ac [place] Lung mass acute Pneumonia acute Tobacco abuse acute [facility] Work Phone: Evaluodrvd note* Diagnosis Hoarse- Primary Dysphonia Chronic laryngitis [...] parital hysterectomy 2009 Hospitalization History see above eegoes Other [facility] general Narrative - Reported* Type Description Date Medical History DIABETIC Medical History BI POLAR Medical History NEUROPATHY IN LEGS Medical History COPD Medical History GENITAL HERPES Medical History high cholesterol Medical History high blood pressure Surgical History Cholecystectomy Surgical History tonsillectomy Surgical History breast reduction 1996 Surgical History parital hysterectomy 2009 Hospitalization History [facility] Lung Abcess 03/2023 Hospitalization History aspiration pneumonia 201 5 eegoes Other [facility] general Narrative - Reported* Type Description Date Medical History DIABETIC Medical History BI POLAR Medical History NEUROPATHY IN LEGS Medical History COPD Medical History GENITAL HERPES Medical History high cholesterol Medical History high blood pressure Medical History [facility] lung abcess 02/2023 -- [facility] Surgical History Cholecystectomy Surgical History tonsillectomy Surgical History breast reduction 1996 Surgical History parital hysterectomy 2009 Hospitalization History [facility] Lung Abcess 03/2023 Hospitalization History aspiration pneumonia 201 5 eegoes Other Hospital Discharge instructions Additional Instructions Continue home oxygen per chronic orders.[facility] Work Phone: Hospital Discharge instructions Additional Instructions Steroids daily Use albuterol inhaler as instructed Push fluids Rest Follow with your PCP Avoid smoking Return here if any problems persist [facility] Work Phone: Advance Directives No [...] Referred Provider Naomi Bernard [place] [address] [place],[address] Referred Provider Specialty Ear, Nose an d [...] DATE CREATED AUTHOR AUTHOR'S ORGANIZ ATION 02/19/2023 [facility] DATE CREATED AUTHOR AUTHOR'S ORGANIZ ATION 03/24/2023 [facility] DATE CREATED AUTHOR AUTHOR'S ORGANIZ ATION 10/02/2023 [facility] DATE CREATED AUTHOR AUTHOR'S ORGANIZ ATION 10/21/2023 [facility] DATE CREATED AUTHOR AUTHOR'S ORGANIZ ATION 01/12/2024 [facility] EPIC REASON FOR VISIT (unrecogniz [...] Active Errol Nicole MD Attending Provider Active 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 [employer] [facility]. provides no warranty or guarantee of the accuracy or completeness of information in this document.
[2024-03-11 13:58] LABS: Anion Gap 12.9; BUN Creatinine Ratio 5.2; Calcium 8.8 mg/dL (8.5-10.1); Carbon Dioxide 29.3 mmol/L (21.0-32.0); Chloride 105 mmol/L (98-107); Estimated GFR (African America >60 (>=60); Estimated GFR (Non-African Ame >60 (>=60); Glucose 127 mg/dL (74-106); Potassium 4.2 mmol/L (3.5-5.1); Sodium 143 mmol/L (136-145)
--- NOTE | 2024-03-11 14:16 | PC.NURSE ---
FSBS result of 226. Patient awake and alert. Family at bedside.
[2024-03-11 14:17] LABS: Bilirubin Urine NEGATIVE (NEGATIVE); Blood Urine NEGATIVE (NEGATIVE); Clarity Urine CLEAR (CLEAR); Color Urine LT. YELLOW (YELLOW); Glucose Urine UA >=1000 mg/dL (NEGATIVE); Ketones Urine NEGATIVE (NEGATIVE); Leukocyte Esterase Urine NEGATIVE (NEGATIVE); Nitrite Urine NEGATIVE (NEGATIVE); Protein Urine NEGATIVE (NEG/TRACE); Urobilinogen Urine 0.2 EU/dL (0.2-1.0)
[2024-03-11 14:27] LABS: Glucometer 226 mg/dL (74-106)
[2024-03-11 14:41] LABS: Bacteria Urine TRACE #/HPF (NONE SEEN); Mucus Urine TRACE (NONE SEEN); RBC Urine NONE SEEN #/HPF (0-2); Squamous Epithelial Cell Urine FEW #/LPF (NONE/RARE); WBC Urine NONE SEEN #/HPF (NONE SEEN)
[2024-03-11 14:42] LABS: Cast Seen? NONE SEEN #/LPF (NONE SEEN); Crystals Seen? None Seen #/HPF (None Seen); Urine Culture Indicated NO
[2024-03-11 14:43] VITALS: BP 146/88; PULSE 102; O2SAT 96
[2024-03-13 10:49] LABS: Glucometer 75 mg/dL (74-106)
== END 2024-03-11 15:05 | disposition home or self-care (01) ==
PROVIDERS: Emergency Provider Emergency Medicine; PCP Internal Medicine
DX: E11.649 Type 2 diabetes mellitus with hypoglycemia without coma (principal); Z79.4 Long term (current) use of insulin; F17.210 Nicotine dependence, cigarettes, uncomplicated
CPT/HCPCS: 36415; 80048; 81001; 85025; 93005; 99285

== ENCOUNTER 2024-07-06 19:40 | Emergency (ER) | payer MEDICARE, SELFPAY ==
[2024-07-06] VITALS (27 sets, daily range): BP systolic 104–129; BP diastolic 70–91; PULSE 84–120; TEMP 36.3; O2SAT 90–97; BMI 33.5
[2024-07-06 19:48] LABS: Glucometer 200 mg/dL (74-106)
--- OUTSIDE RECORDS SUMMARY | 2024-07-06 19:49 | XMS_ITS | CCD ---
Author Organization [facility] Care Team Providers Care Programming Intern Name Role Phone Walker Alba Attending Provider [...] Unavailable PAY ., DR ZAPATA Attending Unavailable MADISON, DR SHAJI Osborn Consulting Unavailable PAY ., [...] Unavailable MD Joyce Cruz Primary Care Provider [phone] DO Lavell Salazar Emergency Provider MD Eron Wood Admit Provider MD Errol Nicole Other Provider MD Valeriano Horta Other Provider DO Krunal Kelly Attending Provider MD Valeriano Horta Attending Provider Courtney Valladares Unavailable MD [facility] Primary Care Provider [phone] MD Valeriano Horta Attending Provider FAVIO Villeda Emergency Provider [phone] MD [facility] Primary Care Provider MD Yasmin Leung Emergency Provider SHANTI Marcum Emergency Provider MD Errol Nicole Attending Provider Bambi Delgado Unavailable Anthony MASTERS, [facility] Provider [phone] [facility] Marilee Marcum Admitting Unavailable Marilee Marcum Attending Unavailable [facility] Unavailable Charey Kamal Admitting Unavailable Patel Nicoleal Attending Unavailable [facility] Unavailable Valeriano Horta Admitting Unavailable Valeriano Horta Attending Unavailable [facility] Unavailable Krunal Kelly Attending Unavailabl e Eron Wood Admitting Unavailable Charey, Kamal Consulting Unavailable [facility] Unavailable Valeriano Horta Consulting Unavailable [facility] Primary Care Unavailable Elio Villeda Admitting Unavailable Elio Villeda Attending Unavailable Yasmin Leung Admitting Unavailable Yasmin Leung Attending Unavailable [place], Stephens Primary Care Unavailable PAVLOCK, MAX Primary Care Unavailable Anthony MASTERS, Primary Care Provider Unallocated , [place] Provider Primary Care Provi radha Susanna HARDY, Denisse Unavailable MARVIN SHERWOOD Attending Unavailable PAVLOCK, MAX L Referring Unavailable PAVLOCK, MAX L Primary Care Unavailable MARVIN SHERWOOD Attending Unavailable PAVLOCK, MAX L Referring Unavailable PAVLOCK, MAX L Primary Care Unavailable KAELAMARVIN MURPHY Attending Unavailable PAVLOCK, MAX L Referring Unavailable PAVLOCK, MAX L Primary Care Unavailable NAOMI BERNARD Attending Unavailable FAWWAMary, Attending Unavailable FAWKALYAN, Attending Unavailable KEIRY LEW Attending Unavailable FAWWAMary, Referring Unavailable FAWKALYAN, Attending Unavailable ANTHONY, Attending Unavailable YONATHAN MILLS Attending Unavailable DENISSE MULLINS Attending Unavailabl e YONATHAN MILLS Attending Unavailable Allergies Allergy Classification Reported Allergen(s) Allergy Type Date of Onset Reaction(s) Facility Serotonin-1b and Serotonin-1d Receptor Agonists (4 sources) SUMAtriptan Drug Allergy 1 [facility] (1 source) Plasmin Drug Allergy 6 [facility] Repository (17 sources) SUMAtriptan Drug Allergy 3 shortness of breath, Anxiety [facility] (1 source) SUMAtriptan Drug Allergy 4 [facility] Repository (1 source) SUMAtriptan; Translations: [SUMATRIPTAN SUCCINATE] Drug Allergy 0 [facility] Repository Medications Current Medications Medication Drug Class(es) Dates Sig (Normalized) Sig (Original) [id number] 200 actuat albuterol 0.09 mg/actuat metered dose [...] hrs Active atorvastatin 40 mg oral tablet (17 sources) HMG-CoA Reductase Inhibitor Start: 05-09-2024 take 1 tablet by mouth once daily atorvastatin (Lipitor) 40 MG tablet Indications: Hyperlipidemia, unspecified hyperlipidemia type ([facility]/HCC) Take 1 tablet (40 mg) by mouth Daily 90 tablet 05/09/2024 Active Start: 03-10-2023 take 40 mg by mouth once daily Atorvastatin Active 40 MG PO Daily March 09, 2023 11:00pm Blood Glucose Monitoring Suppl (FreeStyle Lite) device (1 source) Start: 02-24-2024 Blood Glucose Monitoring Suppl (FreeStyle Lite) device Indications: Type 2 diabetes mellitus with diabetic polyneuropathy, with long-term current use of insulin ([facility]) Test daily before all meals/snacks and once before bedtime. 1 each 02/24/2024 Active 120 actuat budesonide 0.16 mg/actuat / formoterol fumarate 0.0048 mg/actuat / glycopyrrolate 0.009 mg/actuat metered dose inhaler (15 sources) Corticosteroi d, beta2-Adrener gic Agonist Start: 03-10-2023 take 1 puff(s) by inhalation once daily Budesonide-Glycopyr- Formoterol (Breztri Aerosphere) 160-9-4.8 mcg/actuation HFA aerosol inhaler Active 1 PUFF INHALATION Daily March 09, 2023 11:00pm Budeson-Glycopyr rol-Formoterol (Breztri Aerosphere) 160-9-4.8 MCG/ACT aerosol Inhale. Active take 2 puff(s) by in halation twice daily Breztri Aerosphere 160-9-4.8 MCG/ACT 2 p uffs Inhalation Twice a day Active Continuous Blood Gluc Receiv er (FreeStyle Magali 14 Day [place]) device (5 sources) Continuous Blood Gluc Acoustics Teacher (FreeStyle Magali 14 Day [place]) device 4 (four) times a day as needed. Active Continuous Blood Gluc Acoustics Teacher (FreeStyle Magali 14 Day [place]) device 4 (four) times a day as needed. 0 Active Continuous Blood Gluc Sensor (FreeStyle Magali 14 Day Sensor) misc (5 sources) Continuous Blood Gluc Sensor (FreeStyle Magali 14 Day Sensor) misc 4 (four) times a day as needed. Active Continuous Blood Gluc Sensor (FreeStyle Magali 14 Day Sensor) misc 4 (four) times a day as needed. 0 Active dapagliflozin 10 mg oral tablet (17 sources) Sodium-Glucose Cotransporter 2 Inhibitor Start: 05-09-2024 take 1 tablet by mouth once daily dapagliflozin (Farxiga) 10 MG Indications: Type 2 diabetes mellitus with diabetic polyneuropathy, with long-term current use of insulin (CMS/HCC) Take 1 tablet (10 mg) by mouth Daily 90 tablet 1 05/09/2024 Active Start: 03-10-2023 take 1 tablet by sandro th once daily Farxiga 10 MG Indications: Type 2 diabetes mellitus with diabetic polyneuropathy, with long-term current use of insulin (CMS/HCC) TAKE 1 TABLET BY MOUTH EVERY DAY 90 tablet 0 08/10/2023 Active dextromethorphan hydrobromide 1.5 mg/ml / pyrilamine maleate 1.5 mg/ml oral solution (4 sources) Uncompetitive X-iubkgc-P-aspartate Receptor Antagonist, Sigma-1 Agonist Start: 06-20-2023 take 10 mL by mouth every eight hours Loco DM 7.5-7.5 MG/5ML 10 mL Orally every 8 hours for 5 days Jun, Active doxycycline hyclate 100 mg oral tablet (6 sources) Tetracycline-class Drug Start: 07-05-2023 take 100 mg by mouth twice daily Doxycycline Hyclate Active 100 MG PO Twice daily 04 06August 06, 2023 12:00am 0.5 ml dulaglutide 3 mg/ml auto-injector (4 sources) GLP-1 Receptor Agonist inject 1.5 mg by subcutaneous injection every week dulaglutide (Trulicity) 1.5 MG/0.5ML solution pen-injector Inject 1.5 mg under the skin 1 (one) time per week. 0 Active escitalopram 20 mg oral tablet (13 sources) Serotonin Reuptake Inhibitor Start: 03-10-2023 take 1 tablet by mouth once daily Escitalopram Oxalate (Lexapro) 20 mg tablet Active 20 MG PO Daily March 09, 2023 11:00pm fluconazole 100 mg oral tablet (2 sources) Azole Antifungal Start: 09-29-2023 End: 10-13-2023 take 1 tablet by mouth in the morning fluconazole (Diflucan) 100 MG tablet Indications: Thrush Take 1 tablet (100 mg) by mouth in the morning for 14 days. 14 tablet 0 09/29/2023 10/13/2023 Active Furosemide (2 sources) Loop Diuretic Furosemide *please review for potential _update for e-prescription and drug interaction check* Active gabapentin 600 mg oral tablet (20 sources) Anti-epileptic Agent Start: 05-09-2024 End: 08-07-2024 take 1 tablet by mouth in the morning, then take 1 tablet by mouth in the evening, then take 1 tablet by mouth at bedtime gabapentin (Neurontin) 600 MG tablet Indications: Type 2 diabetes mellitus with diabetic polyneuropathy, with long-term current use of insulin (CMS/HCC) Take 1 tablet (600 mg) by mouth in the morning and 1 tablet (600 mg) in the evening and 1 tablet (600 mg) before bedtime. 270 tablet 05/09/2024 08/07/2024 Active Start: 09-06-2023 take 1 tablet by sandro th three times daily gabapentin (Neurontin) 800 MG tablet Indications: Type 2 diabetes mellitus with diabetic polyneuropathy, with long-term current use of insulin (CMS/HCC) TAKE 1 TABLET BY MOUTH THREE TIMES [...] 2023 5:04pm take 1 capsule by mo uth every eight hours Gabapentin 300 MG 1 [...] 0 Active ibuprofen 800 mg oral tablet (19 sources) Nonsteroidal Anti-inflammatory Drug Start: take 1 tablet by mouth three times daily ibuprofen 800 MG tablet Indications: Chronic pain syndrome TAKE 1 TABLET BY MOUTH THREE TIMES A DAY 90 tablet 3 02/21/2024 Active Start: 09-29-2023 take 1 tablet by sandro th three [...] polyneuropathy, with long-term current use of insulin ([facility]) Inject 20 Units under the skin in [...] day Active LORazepam 1 mg oral tablet (15 sources) Benzodiazepine Start: 023 take 1 mg by mouth twice daily Lorazepam Active 1 MG PO Twice daily July 05, 2023 12:00am 24 hr metFORMIN hydrochloride 1000 mg / SITagliptin 100 mg extended release oral tablet (17 sources) Biguanide, Dipeptidyl Peptidase 4 Inhibitor Start: 024 take 1 tablet by mouth every twenty-four hours at bedtime SITagliptin-metFORMIN ER (Janumet XR) 100-1000 MG per 24 hr tablet Indications: Type 2 diabetes mellitus with diabetic polyneuropathy, with long-term current use of insulin ([facility]) Take 1 tablet by mouth at bedtime 90 tablet 05/09/2024 Active Start: 03-10-2023 take 1 tablet by sandro th once daily at bedtime Sitagliptin Phos-Metformin (Janumet Xr) 100-1,000 mg tablet, ER multiphase 24 hr Active 1 TAB PO Daily at bedtime March 09, 2023 11:00pm take 1 tablet by sandro th every twenty-four hours at mealtime SITagliptin-metFORMIN ER (Janumet XR) 100-1000 MG per 24 hr tablet Take 1 tablet by mouth in the morning. Take with meals. 0 Active 24 hr NIFEdipine 90 mg extended release oral tablet (2 sources) Dihydropyridine Calcium Channel Daniela take 1 tablet by mouth every twenty-four hours NIFEdipine ER 90 MG 1 tablet Orally Once a day Active nystatin [id number] unt/ml oral suspension (2 sources) Polyene Antifungal Start: End: nystatin (Mycostatin) 283133 UNIT/ML suspension Indications: Thrush Take 5 mL (500,000 Units) by mouth in the morning and 5 mL (500,000 Units) at noon and 5 mL (500,000 Units) in the evening and 5 mL (500,000 Units) before bedtime. Do all this for 10 days. 200 mL 0 09/29/2023 10/09/2023 Active omeprazole 40 mg delayed release oral capsule (20 sources) Proton Pump Inhibitor Start: take 1 capsule by mouth once daily omeprazole (PriLOSEC) [address] capsule Indications: Gastroesophageal reflux disease without esophagitis Take 1 capsule (40 mg) by mouth Daily 90 capsule 06/13/2024 Active Start: 10-31-2020 End: 06-12-2024 take 1 capsule by mouth once daily omeprazole (PriLOSEC) [address] capsule Indications: Gastroesophageal reflux disease without esophagitis TAKE 1 CAPSULE BY MOUTH EVERY DAY 90 capsule 01/17/2024 06/12/2024 Discontinued (Reorder) microencapsulated potassium chloride 20 meq extended release oral tablet (2 sources) take 1 tablet by mouth every twelve hours Klor-Con M20 20 MEQ 1 tablet Orally Twice a day Active predniSONE 10 mg oral tablet (11 sources) Start: 09-21-2023 predniSONE 10 MG 4 tabs x 3 [...] Jun, Active risperiDONE 3 mg oral tablet (19 sources) Atypical Antipsychotic Start: 10-31-2020 take 1 mg by mouth twice daily Risperidone (Risperdal) 3 mg tablet Active 1 MG PO Twice daily October 30, 2020 11:00pm take 1 tablet by mouth in the mo rning risperiDONE (RisperDAL) 1 MG tablet Take 1 mg by mouth in the morning and 1 mg before bedtime. Active take 1 tablet by sandro th every twenty-four hours risperiDONE 2 MG 1 tablet Orally Once a day Active RisperDAL *pleas e review for potential _update for e-prescription and drug interaction check* Not-Taking Spiriva HandiHaler (2 sources) Spiriva HandiHal er *please review for potential _update for e-prescription and drug interaction check* Active tiZANidine 4 mg oral tablet (19 sources) Central alpha-2 Adrenergic Agonist Start: take 1 tablet by mouth three times daily as needed for muscle spasms tiZANidine (Zanaflex) 4 MG tablet Indications: Neck pain Take 1 tablet (4 mg) by mouth 3 (three) times a day as needed for muscle spasms 270 tablet 05/09/2024 Active Start: 09-06-2023 take 1 tablet by sandro th three times daily as needed tiZANidine (Zanaflex) [...] Hydrocodone-Acetam inophen Discontinued 1 TAB PO Q4H 20 March 14, 2023 July 05, 2023 1:57pm Albuterol [...] 2.5 ug by inhalation twice daily Tiotropium [place] (Spiriva Respimat) 2.5 mcg/actuation mist Discontinued 1 [...] Problem Classification Problem Date Documented Date Episodic/Chronic Acute bronchitis (1 source) Acute bronchitis due to other specified organisms Episodic Alcohol-related disorders (1 source) Alcohol abuse with intoxication, unspecified; Translations: [ALCOHOL ABUSE WITH INTOXICATION UNS] Onset: 01-05-2022 Chronic Anxiety disorders (6 sources) Anxiety; Translations: [Anxiety disorder, unspecified] Onset: 09-06-2023 09-06-2023 Chronic Bacterial infection; unspecified site (1 source) Personal history of Methicillin resistant Staphylococcus aureus infection; Translations: [PERS HX METHICILLIN RSIST STAPH INF] Onset: 09-15-2022 Episodic Chronic obstructive pulmonary disease and bronchiectasis (20 sources) Chronic obstructive pulmonary disease, unspecified; Translations: [Chronic obstructive pulmonary disease with (acute) exacerbation] Onset: 04-28-2022 Chronic Chronic ulcer of skin (1 source) Chronic ulcer of buttock; Translations: [Non-pressure chronic ulcer of buttock with fat layer exposed] Onset: 12-09-2023 12-09-2023 Chronic Diabetes mellitus with complications (6 sources) Type 2 diabetes mellitus with hypoglycemia without coma; Translations: [Type 2 diabetes mellitus] Onset: 03-04-2022 Chronic Diabetes mellitus without complication (19 sources) Type 2 diabetes mellitus without complications; Translations: [Type 2 diabetes mellitus] Onset: 07-28-2022 Chronic Disorders of lipid metabolism (7 sources) Hyperlipidemia, unspecified; Translations: [Pure hypercholesterolemia, unspecified] Onset: 12-24-2021 Chronic Esophageal disorders (1 source) Gastroesophageal reflux disease without esophagitis; Translations: [Gastro-esophageal reflux disease without esophagitis] 06-12-2024 Chronic Essential hypertension (6 sources) Essential (primary) hypertension; Translations: [Hypertensive disorder] Onset: 09-15-2022 09-06-2023 Chronic Fluid and electrolyte disorders (6 sources) Hypokalemia; Translations: [Hypokalemia] 03-31-2021 Episodic Headache; including migraine (4 sources) Migraine, unspecified, not intractable, without status migrainosus; Translations: [MIGRAINE UNS NOT INTRACT W/O SM] Onset: 03-20-2022 Chronic Headache; including migraine (1 source) Headache; including migraine; Translations: [HEADACHE UNSPECIFIED] Onset: 03-04-2022 Mood disorders (10 sources) Bipolar disorder, unspecified; Translations: [Other bipolar disorder] Onset: 02-26-2022 09-06-2023 Chronic Mood disorders (1 source) Mood disorders; Translations: [DEPRESSION UNSPECIFIED] Onset: 03-04-2022 Other aftercare (1 source) 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; Translations: [HIGH WIRE ARTIST CURRENT USE OF INSULIN] Onset: 09-15-2022 Episodic Other aftercare (1 source) Other long-term (current) drug therapy; Translations: [OTH HIGH WIRE ARTIST CURRENT DRUG THERAPY] Onset: 09-15-2022 Episodic Other endocrine disorders (11 sources) Hypoglycemia; Translations: [Hypoglycemia, unspecified] Onset: 01-10-2020 [...] Onset: 08-06-2023 Episodic Other nervous system disorders (1 source) Lesion of ulnar nerve, left upper limb; Translations: [Lesion of ulnar nerve] Onset: 12-09-2023 12-09-2023 Chronic Other upper respiratory disease (2 sources) Chronic laryngitis; Translations: [Chronic laryngitis] 09-29-2023 Chronic Other upper respiratory disease (5 sources) Hoarse; Translations: [Dysphonia] 09-29-2023 Episodic Other upper respiratory disease (1 source) Dysphonia Episodic Other upper respiratory infections (5 sources) Acute upper respiratory infection, unspecified; Translations: [Acute pharyngitis, unspecified] Onset: 03-31-2022 Episodic Residual codes; unclassified (5 sources) Insomnia; Translations: [Other insomnia] Onset: 11-05-2022 [...] Tobacco user; Translations: [Tobacco use] 03-11-2023 Episodic Substance-related disorders (12 sources) Nicotine dependence, cigarettes, uncomplicated; Translations: [Opioid [...] Problem Date Documented Date Episodic/Chronic Abdominal pain (8 sources) Pain in pelvis; Translations: [Pelvic and perineal pain] Onset: 09-06-2023 09-06-2023 Episodic Aspiration pneumonitis; food/vomitus (7 sources) Aspiration pneumonia; [...] ENC] Onset: 03-04-2022 Episodic Malaise and fatigue (2 sources) Weakness; Translations: [Malaise and fatigue] Onset: 06-25-2014 12-22-2023 Episodic Mycoses (3 sources) Candidiasis of mouth; Translations: [Candidal stomatitis] Onset: 10-21-2023 09-29-2023 Episodic Other connective tissue disease (1 source) Abnormal posture; Translations: [ABNORMAL POSTURE] Onset: 01-02-2022 Episodic Other connective tissue disease (5 sources) Non-traumatic rhabdomyolysis; Translations: [Rhabdomyolysis] Onset: 01-10-2020 09-06-2023 Episodic Other connective tissue disease (1 source) Fibromyalgia; Translations: [Fibromyalgia] Onset: 11-24-2016 12-22-2023 Episodic Other connective tissue disease (1 source) Spasm; Translations: [Other muscle spasm] Onset: 11-24-2016 12-22-2023 Episodic Other lower respiratory disease (4 sources) [...] Onset: 01-02-2022 Episodic Other nervous system disorders (5 sources) H/O: migraine; Translations: [Personal history of other diseases of the nervous system and sense organs] Onset: 09-06-2023 09-06-2023 Episodic Other nervous system disorders (1 source) Skin sensation disturbance; Translations: [Unspecified disturbances of skin sensation] Onset: 06-25-2014 12-22-2023 Episodic Other non-traumatic joint disorders (4 sources) Pain in right hip; Translations: [PAIN IN RIGHT HIP] Onset: 04-09-2022 Episodic Other screening for suspected conditions (not mental disorders or infectious disease) (2 sources) Patient encounter status; Translations: [Encounter for screening for malignant neoplasm of colon] Onset: 10-21-2023 05-09-2024 Episodic Pneumonia (except that caused by tuberculosis or sexually transmitted disease) (20 sources) Abscess of lung with pneumonia ; Translations: [Abscess of lung with pneumonia] Onset: 03-10-2023 03-10-2023 Episodic Residual codes; unclassified (1 source) Insomnia, unspecified; Translations: [INSOMNIA UNSPECIFIED] Onset: 03-04-2022 Episodic Residual codes; unclassified (3 sources) Tobacco use; Translations: [Tobacco use disorder] Onset: 03-10-2023 03-14-2023 Episodic Spondylosis; intervertebral disc disorders; other back problems (10 sources) Neck pain; Translations: [Cervicalgia] Onset: 09-14-2014 09-06-2023 Episodic Unclassified (1 source) COUGH, UNSPECIFIED; Translations: [COUGH, UNSPECIFIED] Onset: 03-29-2022 Results Test Name Value Interpretation Reference Range Facility Provider Letteron 05-29-2024 Provider Letter Provider Letter May 29, 2024 CHRISTIANE PEREZ [facility]ly [facility] [place] [address] : 1975 Dear Ms. Perez, We have been trying to reach you with no success regarding a referral from Denisse Mullins. It is important that you return our call upon receiving this letter. Also, at the time of your call, please provide us with your current information. Thank you for your prompt attention to this matter. Sincerely, [facility] General Surgery [phone] [facility] CT chest wo [facility] 08-30-2023 CT chest wo [facility] [address] [address] [address] Scan Report Signed Patient: Christiane Perez MR#: [id number] 2 : 1975 Acct:[id number] Age/Sex: 48 / F ADM Date: 08/30/23 Loc: CT Room: Type: [facility] Attending Dr: Errol Nicole MD Copies [...] Johnson Jr., D.O.08/30/2023 3:21 PM Dictation Location: [place] [address] Transcribed By: [facility] 08/30/23 1521 Dictated By: Rodger Johnson Jr, DO 08/30/23 1517 Signed By: 08/30/23 1521 [facility] Activated partial thrombopla stin time (aPTT) in platelet poor plasma by coagulation aOrdered By: Marilee Marcum on 08-06-2023 aPTT Coag (PPP) [Time] 32.3 s 25.1-36.5 [facility] Comment on above: A hematocrit value g reater than 55% may lead to inaccurate results in coagulation testing. Patients having hematocrit values >55% require a special collection tube for coagulation studies. Please contact the laboratory at [phone] for redraw instructions. B-Type Natriuretic Peptideon 08-06-2023 Natriuretic peptide B (Bld) [Mass/Vol] 29.0 pg/mL Normal 5-100 [facility] Comment on above: Result Comment: PERF ORMED BY: [place] [address] PATHOLOGIST [facility] [employer] ATTENDANT WAYNE WAKEFIELD M.D. Performed By: #### V ANCT #### [address] Basic Metabolic Panelon 07-17 Anion gap [Moles/Vol] 9.8 mmol/L Normal 6.0-15.0 [facility] Comment on above: Performed By: #### V ANCT #### [address] Calcium [Mass/Vol] 8.6 mg/dL Normal 8.6-10.3 [facility] Comment on above: Performed By: #### V ANCT #### [address] Chloride [Moles/Vol] 106 mmol/L Normal 98-107 [facility] Comment on above: Performed By: #### V ANCT #### [address] CO2 [Moles/Vol] 24.9 mmol/L Normal 21.0-31.0 [facility] Comment on above: Performed By: #### V ANCT #### [address] Creatinine [Mass/Vol] 0.72 mg/dL Normal 0.60-1.20 [facility] Comment on above: Performed By: #### V ANCT #### [facility] [address] [place] [address] [place] Creatinine Clr Calc Pharmacy 116.58 Normal [facility] Comment on above: Result Comment: PERF ORMED BY: [place] [address] PATHOLOGIST [facility] [employer] ATTENDANT WAYNE WAKEFIELD M.D. Performed By: #### V ANCT #### [place] [address] [place] GFR/1.73 sq M.predicted MDRD (S/P/Bld) [Vol rate/Area] mL/min/{1.73_m2} Normal [facility] Comment on above: Performed By: #### V ANCT #### [place] [address] [place] Glucose [Mass/Vol] 99 mg/dL Normal 70-100 [facility] Comment on above: Result Comment: [facility] Glucose Reference Range is dependent on time and content of last meal. Glucose of more than 200 mg/dL in a nonstressed, ambulatory subject supports the diagnosis of Diabetes Mellitus. ADA recommended reference range Performed By: #### V ANCT #### [place] [address] [place] Potassium [Moles/Vol] 3.7 mmol/L Normal 3.5-5.1 [facility] Comment on above: Performed By: #### V ANCT #### [place] [address] [place] Sodium [Moles/Vol] 137 mmol/L Normal 136-145 [facility] Comment on above: Performed By: #### V ANCT #### [address] Urea nitrogen [Mass/Vol] 8 mg/dL Normal 7-25 [facility] Comment on above: Performed By: #### V ANCT #### [place] [address] [place] Basophils Auto (Bld) [#/Vol] Ordered By: Marilee Marcum on 08-06-2023 Basophils (Bld) [#/Vol] 0.1 10*3/uL 0.0-0.2 [facility] Basophils/100 WBC Auto (Bld) Ordered By: Marilee Marcum on 08-06-2023 Basophils/100 WBC (Bld) 0.5 % . [facility] COVID CepheidOrdered By: Marielos Marcum on 12-22-2023 SARS-CoV-2 (COVID-19) Ab IA Ql Negative Negative [facility] Comment on above: This is a duplicate Cepheid Xpert Xpress CoV-2/Flu/RSV Plus RNA by RT-PCR result to be used for statistical tracking purpose only. SARS-CoV-2 (COVID-19) RNA SOILA+probe Ql (Unsp spec) [facility] COVID-19 / Flu A/B / [...] or Cepheid Disclaimer revoked sooner. PERFORMED BY: [place] [id number] PATHOLOGIST [facility] [employer] WAYNE WAKEFIELD M.D. Normal [facility] Comment on above: Performed By: #### V ANCT #### [facility] [address] [place] [address] [place] Calcium [Mass/volume] in Ser um or PlasmaOrdered By: Marilee Marcum on 08-06-2023 Calcium [Mass/Vol] 8.6 mg/dL 8.6-10.3 [facility] Carbon dioxide, total [Moles /volume] in Serum or PlasmaOrdered By: Marilee Marcum on 08-06-2023 CO2 [Moles/Vol] 24.9 mmol/L 21.0-31.0 [facility] Cepheid COVID PCR Negativeon 08-06-2023 SARS-CoV-2 (COVID-19) RNA SOILA+probe Ql (Unsp spec) Negative Normal Negative [facility] Comment on above: Result Comment: This is a duplicate Cepheid Xpert Xpress CoV-2/Flu/RSV Plus RNA by RT-PCR result to be used for statistical tracking purpose only. PERFORMED BY: [address] [address] PATHOLOGIST [facility] [employer] WAYNE WAKEFIELD M.D. Performed By: #### V ANCT #### [facility] [address] [place] [address] [place] Chloride [Moles/volume] in S kaitlin or PlasmaOrdered By: Marilee Marcum on 08-06-2023 Chloride [Moles/Vol] 106 mmol/L 98-107 [facility] Complete Blood Count Auto Di ffon 08-06-2023 Basophils (Bld) [#/Vol] 0.1 10*3/uL Normal 0.0-0.2 [facility] Comment on above: Result Comment: PERF ORMED BY: [place] [address] PATHOLOGIST [facility] [employer] WAYNE WAKEFIELD M.D. Performed By: #### V ANCT #### [address] Basophils/100 WBC (Bld) 0.5 % Normal . [facility] Comment on above: Performed By: #### V ANCT #### [address] Eosinophils (Bld) [#/Vol] 0.1 10*3/uL Normal 0.0-0.45 [facility] Comment on above: Performed By: #### V ANCT #### [address] Eosinophils/100 WBC (Bld) 1.0 % Normal . [facility] Comment on above: Performed By: #### V ANCT #### [address] Erythrocyte distribution width (RBC) [Ratio] 16.7 % High 11.9-15.3 [facility] Comment on above: Performed By: #### V ANCT #### [address] Hematocrit (Bld) [Volume fraction] 45.8 % Normal 34.0-46.4 [facility] Comment on above: Performed By: #### V ANCT #### [address] Hemoglobin (Bld) [Mass/Vol] 15.4 g/dL Normal 11.8-15.4 [facility] Comment on above: Performed By: #### V ANCT #### [place] [address] [place] Lymphocytes (Bld) [#/Vol] 1.4 10*3/uL Normal 1.00-4.8 [facility] Comment on above: Performed By: #### V ANCT #### [place] [address] [place] Lymphocytes/100 WBC (Bld) 12.5 % Normal . [facility] Comment on above: Performed By: #### V ANCT #### [address] MCH (RBC) [Entitic mass] 32.9 pg Normal 24.7-34.3 [facility] Comment on above: Performed By: #### V ANCT #### [address] MCV (RBC) [Entitic vol] 97.6 fL Normal 80-100 [facility] Comment on above: Performed By: #### V ANCT #### [address] Mean Corpuscular HGB Conc 33.7 g/dL Normal 32.0-35.0 [facility] Comment on above: Performed By: #### V ANCT #### [address] Monocytes (Bld) [#/Vol] 0.8 10*3/uL Normal 0.0-0.8 [facility] Comment on above: Performed By: #### V ANCT #### [address] Monocytes/100 WBC (Bld) 23.24 % High 0.00-20.00 [facility] Comment on above: Result Comment: For adults in ED, MDW > 20.0 may be associated with a higher risk of sepsis during the first 12 hrs of hospital admission Performed By: #### V ANCT #### [place] [address] [place] Monocytes/100 WBC (Bld) 7.7 % Normal . [facility] Comment on above: Performed By: #### V ANCT #### [place] [address] [place] Neutrophils (Bld) [#/Vol] 8.5 10*3/uL High 1.8-7.7 [facility] Comment on above: Performed By: #### V ANCT #### [place] [id number] [place] Neutrophils/100 WBC (Bld) 78.3 % Normal . [facility] Comment on above: Performed By: #### V ANCT #### [address] NRBC% 0.1 /100{WBC} Normal 0-0.5 [facility] Comment on above: Performed By: #### V ANCT #### [address] Platelet mean volume (Bld) [Entitic vol] 7.3 fL Normal 6.3-10.7 [facility] Comment on above: Performed By: #### V ANCT #### [address] Platelets (Bld) [#/Vol] 237 10*3/uL Normal 150-450 [facility] Comment on above: Performed By: #### V ANCT #### [address] RBC (Bld) [#/Vol] 4.70 10*6/uL Normal 3.60-5.00 [facility] Comment on above: Performed By: #### V ANCT #### [address] WBC (Bld) [#/Vol] 10.8 10*3/uL Normal 3.8-11.6 [facility] Comment on above: Performed By: #### V ANCT #### [address] Creatinine [Mass/volume] in Serum or PlasmaOrdered By: Marilee Marcum on 08-06-2023 Creatinine [Mass/Vol] 0.72 mg/dL 0.60-1.20 [facility] ECG 12 lead ECGon 08-06-2023 ECG 12 lead ECG [facility] [place] [address] [place] [address] Electrocardiograph Report Signed Patient: Christiane Perez MR#: [id number] 2 : 1975 Acct:[id number] Age/Sex: 48 / F ADM Date: 08/06/23 Loc: ER Room: Type: [facility] ER Attending Dr: Ordering Provider: Marilee Marcum [...] was found Confirmed [id number] on 08/08/2023 11:46:24 AM Referred By: Electronically Signed By:ROBIN ZUNIGA MD [facility] Transcribed By: MUS Signed By Mario Zuniga MD 08/08/23 1146 Normal [facility] Eosinophils Auto (Bld) [#/Vo l]Ordered By: Marilee Marcum on 08-06-2023 Eosinophils (Bld) [#/Vol] 0.1 10*3/uL 0.0-0.45 [facility] Eosinophils/100 WBC Auto (Bl d)Ordered By: Marilee Marcum on 08-06-2023 Eosinophils/100 WBC (Bld) 1.0 % . [facility] Erythrocyte distribution wid th Auto (RBC) [Ratio]Ordered By: Marilee Marcum on 08-06-2023 Erythrocyte distribution width (RBC) [Ratio] 16.7 % 11.9-15.3 [facility] Glucose [Mass/volume] in Ser um or PlasmaOrdered By: Marilee Marcum on 08-06-2023 Glucose [Mass/Vol] 99 mg/dL 70-100 [facility] Comment on above: ADA recommended refe rence rangeRandom Glucose Reference Range is dependent on time and content of last meal. Glucose of more than 200 mg/dL in a nonstressed, ambulatory subject supports the diagnosis of Diabetes Mellitus. Hematocrit Auto (Bld) [Volum e fraction]Ordered By: Marilee Marcum on 08-06-2023 Hematocrit (Bld) [Volume fraction] 45.8 % 34.0-46.4 [facility] Hemoglobin [Mass/volume] in BloodOrdered By: Marilee Marcum on 08-06-2023 Hemoglobin (Bld) [Mass/Vol] 15.4 g/dL 11.8-15.4 [facility] INR in Platelet poor plasma by Coagulation assayOrdered By: Marilee Marcum on 08-06-2023 INR Coag (PPP) [Relative time] 1.0 {INR} [facility] Comment on above: INR Therapeutic [...] RBC Auto (Bld) [#/Vol] 10.8 10*3/uL 3.8-11.6 [facility] Lymphocytes Auto (Bld) [#/Vo l]Ordered By: Marilee Marcum on 08-06-2023 Lymphocytes (Bld) [#/Vol] 1.4 10*3/uL 1.00-4.8 [facility] Lymphocytes/100 WBC Auto (Bl d)Ordered By: Marilee Marcum on 08-06-2023 Lymphocytes/100 WBC (Bld) 12.5 % . [facility] MCH Auto (RBC) [Entitic mass ]Ordered By: Marilee Marcum on 08-06-2023 MCH (RBC) [Entitic mass] 32.9 pg 24.7-34.3 [facility] MCHC Auto (RBC) [Mass/Vol]Or dered By: Marilee Marcum on 08-06-2023 MCHC (RBC) [Mass/Vol] 33.7 g/dL 32.0-35.0 [facility] MCV Auto (RBC) [Entitic vol] Ordered By: Marilee Marcum on 08-06-2023 MCV (RBC) [Entitic vol] 97.6 fL 80-100 [facility] Monocyte distribution width [Entitic volume] in Blood by AutomatedOrdered By: Marilee Marcum on 08-06-2023 Monocyte distribution width Auto (Bld) [Entitic vol] 23.24 % 0.00-20.00 [facility] Comment on above: For adults in ED, MD W > 20.0 may be associated with a higher risk of sepsis during the first 12 hrs of hospital admission Monocytes Auto (Bld) [#/Vol] Ordered By: Marilee Marcum on 08-06-2023 Monocytes (Bld) [#/Vol] 0.8 10*3/uL 0.0-0.8 [facility] Monocytes/100 WBC Auto (Bld) Ordered By: Marilee Marcum on 08-06-2023 Monocytes/100 WBC (Bld) 7.7 % . [facility] Natriuretic peptide B [Mass/ Vol]Ordered By: Marilee Marcum on 08-06-2023 Natriuretic peptide B (Bld) [Mass/Vol] 29.0 pg/mL 5-100 [facility] Neutrophils Auto (Bld) [#/Vo l]Ordered By: Marilee Marcum on 08-06-2023 Neutrophils (Bld) [#/Vol] 8.5 10*3/uL 1.8-7.7 [facility] Neutrophils/100 WBC Auto (Bl d)Ordered By: Marilee Marcum on 08-06-2023 Neutrophils/100 WBC (Bld) 78.3 % . [facility] No Panel InformationOrdered By: Marilee Marcum on 08-06-2023 Estimated GFR (CKD-EPI) > 60.0 mL/Min [facility] Creatinine Clearance (Chem 116.58 [facility] Nucleated erythrocytes [Pres ence] in Blood by Automated countOrdered By: Marilee Marcum on 08-06-2023 Nucleated RBC Auto Ql (Bld) 0.1 /100{WBC} 0-0.5 [facility] Partial Thromboplastin Timeo n 08-06-2023 aPTT Coag (Bld) [Time] 32.3 s Normal 25.1-36.5 [facility] Comment on above: Result Comment: A he matocrit value greater than 55% may lead to inaccurate results in coagulation testing. Patients having hematocrit values >55% require a special collection tube for coagulation studies. Please contact the laboratory at [phone] for redraw instructions. PERFORMED BY: [place] [address] PATHOLOGIST [facility] [employer] WAYNE WAKEFIELD M.D. Performed By: #### V ANCT #### [facility] [address] [place] [address] [facility] Platelet mean volume Auto (B ld) [Entitic vol]Ordered By: Marilee Marcum on 08-06-2023 Platelet mean volume (Bld) [Entitic vol] 7.3 fL 6.3-10.7 [facility] Platelets Auto (Bld) [#/Vol] Ordered By: Marilee Marcum on 08-06-2023 Platelets (Bld) [#/Vol] 237 10*3/uL 150-450 [facility] Potassium [Moles/volume] in Serum or PlasmaOrdered By: Marilee Marcum on 08-06-2023 Potassium [Moles/Vol] 3.7 mmol/L 3.5-5.1 [facility] Prothrombin Time INRon 08-06 INR Coag (PPP) [Relative time] 1.0 {INR} Normal [facility] Comment on above: Result Comment: [...] 4.5 Performed By: #### V ANCT #### [facility] [address] [place] [address] [facility] PT Coag (PPP) [Time] 11.3 s Normal 9.0-12.9 [facility] Comment on above: Result Comment: A he matocrit value greater than 55% may lead to inaccurate results in coagulation testing. Patients having hematocrit values >55% require a special collection tube for coagulation studies. Please contact the laboratory at [phone] for redraw instructions. Performed By: #### V ANCT #### [address] Prothrombin time (PT)Ordered By: Marilee Marcum on 08-06-2023 PT Coag (PPP) [Time] 11.3 s 9.0-12.9 [facility] Comment on above: A hematocrit value g reater than 55% may lead to inaccurate results in coagulation testing. Patients having hematocrit values >55% require a special collection tube for coagulation studies. Please contact the laboratory at [phone] for redraw instructions. RBC Auto (Bld) [#/Vol]Ordere d By: Marilee Marcum on 08-06-2023 RBC (Bld) [#/Vol] 4.70 10*6/uL 3.60-5.00 [facility] Serum or plasma anion gap de terminationOrdered By: Marilee Marcum on 08-06-2023 Anion gap [Moles/Vol] 9.8 mmol/L 6.0-15.0 [facility] Sodium [Moles/volume] in Ser um or PlasmaOrdered By: Marilee Marcum on 08-06-2023 Sodium [Moles/Vol] 137 mmol/L 136-145 [facility] Troponin I High Sensitivityo n 08-06-2023 Troponin I High Sensitivity 8.9 pg/mL Normal 0.0-15.0 [facility] Comment on above: Result Comment: PERF ORMED BY: [facility] [address] [place] [address] PATHOLOGIST [employer] WAYNE WAKEFIELD M.D. Performed By: #### V ANCT #### [place] [id number] [facility] Troponin I.cardiac [Mass/vol ume] in Serum or Plasma by Detection limit <= 0.01 ng/Ordered By: Marilee Marcum on 08-06-2023 Troponin I.cardiac DL <= 0.01 ng/mL [Mass/Vol] 8.9 pg/mL 0.0-15.0 [facility] Urea nitrogen [Mass/volume] in Serum or PlasmaOrdered By: Marilee Marcum on 08-06-2023 Urea nitrogen [Mass/Vol] 8 mg/dL 7-25 [facility] WBC Auto (Bld) [#/Vol]Ordere d By: Marilee Mracum on 08-06-2023 WBC (Bld) [#/Vol] 10.8 10*3/uL 3.8-11.6 [facility] XR chest 2V*on 08-06-2023 XR chest 2V* [facility] [place] [address] [place] [address] XRay Report Signed Patient: Christiane Perez MR#: [id number] 2 : 1975 Acct:[id number] Age/Sex: 48 / F ADM Date: 08/06/23 Loc: ER Room: Type: [facility] ER Attending Dr: Copies to: Marilee Marcum [...] Giovanny Cleveland M.D.08/06/2023 8:42 PM Dictation Location: [place] [address] Transcribed By: [facility] 08/06/232041 Dictated By: Giovanny Cleveland DO 08/06/232038 Signed By: 08/06/232041 Normal [facility] Basic Metabolic Panelon 12- Anion gap [Moles/Vol] 9.2 mmol/L Normal 6.0-15.0 [facility] Comment on above: Performed By: #### G LULS #### Point of Care testing , Calcium [Mass/Vol] 8.9 mg/dL Normal 8.6-10.3 [facility] Comment on above: Performed By: #### G LULS #### Point of Care testing , Chloride [Moles/Vol] 107 mmol/L Normal 98-107 [facility] Comment on above: Performed By: #### G LULS #### Point of Care testing , CO2 [Moles/Vol] 25.5 mmol/L Normal 21.0-31.0 [facility] Comment on above: Performed By: #### G LULS #### Point of Care testing , Creatinine [Mass/Vol] 0.70 mg/dL Normal 0.60-1.20 [facility] Comment on above: Performed By: #### G LULS #### Point of Care testing , Creatinine Clr Calc Pharmacy 119.81 [facility] Comment on above: Result Comment: PERF ORMED BY: [facility] [address] [place] [address] PATHOLOGIST [employer] WAYNE WAKEFIELD M.D. Performed By: #### G LULS #### Point of Care testing , GFR/1.73 sq M.predicted MDRD (S/P/Bld) [Vol rate/Area] mL/min/{1.73_m2} [facility] Comment on above: Performed By: #### G LULS #### Point of Care testing , Glucose [Mass/Vol] 50 mg/dL Low 70-100 [facility] Comment on above: Result Comment: [place] Glucose Reference Range is dependent on time and content of last meal. Glucose of more than 200 mg/dL in a nonstressed, ambulatory subject supports the diagnosis of Diabetes Mellitus. ADA recommended reference range Performed By: #### G LULS #### Point of Care testing , Potassium [Moles/Vol] 3.7 mmol/L Normal 3.5-5.1 [facility] Comment on above: Performed By: #### G LULS #### Point of Care testing , Sodium [Moles/Vol] 138 mmol/L Normal 136-145 [facility] Comment on above: Performed By: #### G MARE #### Point of Care testing , Urea nitrogen [Mass/Vol] 10 mg/dL Normal 7-25 [facility] Comment on above: Performed By: #### G MARYLS #### Point of Care testing , Complete Blood Count Auto Di ffon 07-17-2023 Basophils (Bld) [#/Vol] 0.2 10*3/uL Normal 0.0-0.2 [facility] Comment on above: Result Comment: PERF ORMED BY: [facility] [address] [place] [address] PATHOLOGIST [employer] WAYNE WAKEFIELD M.D. Performed By: #### G MARE #### Point of Care testing , Basophils/100 WBC (Bld) 1.1 % Normal . [facility] Comment on above: Performed By: #### Sophia GARVEY #### Point of Care testing , Eosinophils (Bld) [#/Vol] 0.2 10*3/uL Normal 0.0-0.45 [facility] Comment on above: Performed By: #### Sophia GARVEY #### Point of Care testing , Eosinophils/100 WBC (Bld) 1.2 % Normal . [facility] Comment on above: Performed By: #### Sophia GARVEY #### Point of Care testing , Erythrocyte distribution width (RBC) [Ratio] 16.3 % High 11.9-15.3 [facility] Comment on above: Performed By: #### G MARE #### Point of Care testing , Hematocrit (Bld) [Volume fraction] 45.8 % Normal 34.0-46.4 [facility] Comment on above: Performed By: #### G MARE #### Point of Care testing , Hemoglobin (Bld) [Mass/Vol] 15.3 g/dL Normal 11.8-15.4 [facility] Comment on above: Performed By: #### Sophia GARVEY #### Point of Care testing , Lymphocytes (Bld) [#/Vol] 4.4 10*3/uL Normal 1.00-4.8 [facility] Comment on above: Performed By: #### Sophia GARVEY #### Point of Care testing , Lymphocytes/100 WBC (Bld) 32.3 % Normal . [facility] Comment on above: Performed By: #### G MARYLS #### Point of Care testing , MCH (RBC) [Entitic mass] 32.2 pg Normal 24.7-34.3 [facility] Comment on above: Performed By: #### G MARYLS #### Point of Care testing , MCV (RBC) [Entitic vol] 96.4 fL Normal 80-100 [facility] Comment on above: Performed By: #### Sophia HERNANDEZLS #### Point of Care testing , Mean Corpuscular HGB Conc 33.4 g/dL Normal 32.0-35.0 [facility] Comment on above: Performed By: #### Sophia HERNANDEZLS #### Point of Care testing , Monocytes (Bld) [#/Vol] 0.9 10*3/uL High 0.0-0.8 [facility] Comment on above: Performed By: #### Sophia GARVEY #### Point of Care testing , Monocytes/100 WBC (Bld) 17.19 % Normal 0.00-20.00 [facility] Comment on above: Performed By: #### Sophia HERNANDEZLS #### Point of Care testing , Monocytes/100 WBC (Bld) 6.8 % Normal . [facility] Comment on above: Performed By: #### Sophia HERNANDEZLS #### Point of Care testing , Neutrophils (Bld) [#/Vol] 8.0 10*3/uL High 1.8-7.7 [facility] Comment on above: Performed By: #### Sophia HERNANDEZLS #### Point of Care testing , Neutrophils/100 WBC (Bld) 58.6 % Normal . [facility] Comment on above: Performed By: #### G MARYLS #### Point of Care testing , NRBC% 0.1 /100{WBC} Normal 0-0.5 [facility] Comment on above: Performed By: #### G LULS #### Point of Care testing , Platelet mean volume (Bld) [Entitic vol] 6.9 fL Normal 6.3-10.7 [facility] Comment on above: Performed By: #### G LULS #### Point of Care testing , Platelets (Bld) [#/Vol] 414 10*3/uL Normal 150-450 [facility] Comment on above: Performed By: #### G LULS #### Point of Care testing , RBC (Bld) [#/Vol] 4.75 10*6/uL Normal 3.60-5.00 [facility] Comment on above: Performed By: #### G MARYLS #### Point of Care testing , WBC (Bld) [#/Vol] 13.6 10*3/uL High 3.8-11.6 [facility] Comment on above: Performed By: #### G MARYLS #### Point of Care testing , XR chest 1V portableon 07-17 XR chest 1V portable [facility] [place] [address] XRay Report Signed Patient: Christiane Perez MR#: [id number] 2 : 1975 Acct:[id number] Age/Sex: 48 / F ADM Date: 07/16/23 Loc: ER Room: Type: [facility] ER Attending Dr: Copies to: Yasmin Leung [...] Shireen Caruso M.D.07/17/2023 8:50 AM Dictation Location: [address] By: CHARLI 07/17/2350 Dictated By: Shireen Caruso MD 07/17/2349 Signed By: 07/17/23 0850 Normal [facility] Basophils Auto (Bld) [#/Vol] Ordered By: Yasmin Leung on 07-16-2023 Basophils (Bld) [#/Vol] 0.2 10*3/uL 0.0-0.2 [facility] Basophils/100 WBC Auto (Bld) Ordered By: Yasmin Leung on 07-16-2023 Basophils/100 WBC (Bld) 1.1 % . [facility] Calcium [Mass/volume] in Ser um or PlasmaOrdered By: Yasmin Leung on 07-16-2023 Calcium [Mass/Vol] 8.9 mg/dL 8.6-10.3 [facility] Carbon dioxide, total [Moles /volume] in Serum or PlasmaOrdered By: Yasmin Leung on 07-16-2023 CO2 [Moles/Vol] 25.5 mmol/L 21.0-31.0 [facility] Chloride [Moles/volume] in S kaitlin or PlasmaOrdered By: Yasmin Leung on 07-16-2023 Chloride [Moles/Vol] 107 mmol/L 98-107 [facility] Creatinine [Mass/volume] in Serum or PlasmaOrdered By: Yasmin Leung on 07-16-2023 Creatinine [Mass/Vol] 0.70 mg/dL 0.60-1.20 [facility] ECG 12 lead ECGon 07-16-2023 ECG 12 lead ECG [facility] [place] [address] Electrocardiograph Report Signed Patient: Christiane Perez MR#: [id number] 2 : 1975 Acct:[id number] Age/Sex: 48 / F ADM Date: 07/16/23 Loc: ER Room: Type: [facility] ER Attending Dr: Ordering Provider: Yasmin Leung [...] By Yasmin Leung MD 07/17/23 0119 Normal [facility] Eosinophils Auto (Bld) [#/Vo l]Ordered By: Yasmin Leung on 07-16-2023 Eosinophils (Bld) [#/Vol] 0.2 10*3/uL 0.0-0.45 [facility] Eosinophils/100 WBC Auto (Bl d)Ordered By: Yasmin Leung on 07-16-2023 Eosinophils/100 WBC (Bld) 1.2 % . [facility] Erythrocyte distribution wid th Auto (RBC) [Ratio]Ordered By: Yasmin Leung on 07-16-2023 Erythrocyte distribution width (RBC) [Ratio] 16.3 % 11.9-15.3 [facility] Glucose [Mass/volume] in Ser um or PlasmaOrdered By: Yasmin Leung on 07-16-2023 Glucose [Mass/Vol] 50 mg/dL 70-100 [facility] Comment on above: ADA recommended refe rence rangeRandom Glucose Reference Range is dependent on time and content of last meal. Glucose of more than 200 mg/dL in a nonstressed, ambulatory subject supports the diagnosis of Diabetes Mellitus. Hematocrit Auto (Bld) [Volum e fraction]Ordered By: Yasmin Leung on 07-16-2023 Hematocrit (Bld) [Volume fraction] 45.8 % 34.0-46.4 [facility] Hemoglobin [Mass/volume] in BloodOrdered By: Yasmin Leung on 07-16-2023 Hemoglobin (Bld) [Mass/Vol] 15.3 g/dL 11.8-15.4 [facility] Leukocytes [#/volume] correc billy for nucleated erythrocytes in Blood by Automated counOrdered By: Yasmin Leung on 07-16-2023 WBC corrected for nucl RBC Auto (Bld) [#/Vol] 13.6 10*3/uL 3.8-11.6 [facility] Lymphocytes Auto (Bld) [#/Vo l]Ordered By: Yasmin Leung on 07-16-2023 Lymphocytes (Bld) [#/Vol] 4.4 10*3/uL 1.00-4.8 [facility] Lymphocytes/100 WBC Auto (Bl d)Ordered By: Yasmin Leung on 07-16-2023 Lymphocytes/100 WBC (Bld) 32.3 % . [facility] MCH Auto (RBC) [Entitic mass ]Ordered By: Yasmin Leung on 07-16-2023 MCH (RBC) [Entitic mass] 32.2 pg 24.7-34.3 [facility] MCHC Auto (RBC) [Mass/Vol]Or dered By: Yasmin Leung on 07-16-2023 MCHC (RBC) [Mass/Vol] 33.4 g/dL 32.0-35.0 [facility] MCV Auto (RBC) [Entitic vol] Ordered By: Yasmin Leung on 07-16-2023 MCV (RBC) [Entitic vol] 96.4 fL 80-100 [facility] Monocyte distribution width [Entitic volume] in Blood by AutomatedOrdered By: Yasmin Leung on 07-16-2023 Monocyte distribution width Auto (Bld) [Entitic vol] 17.19 % 0.00-20.00 [facility] Monocytes Auto (Bld) [#/Vol] Ordered By: Yasmin Leung on 07-16-2023 Monocytes (Bld) [#/Vol] 0.9 10*3/uL 0.0-0.8 [facility] Monocytes/100 WBC Auto (Bld) Ordered By: Yasmin Leung on 07-16-2023 Monocytes/100 WBC (Bld) 6.8 % . [facility] Neutrophils Auto (Bld) [#/Vo l]Ordered By: Yasmin Leung on 07-16-2023 Neutrophils (Bld) [#/Vol] 8.0 10*3/uL 1.8-7.7 [facility] Neutrophils/100 WBC Auto (Bl d)Ordered By: Yasmin Leung on 07-16-2023 Neutrophils/100 WBC (Bld) 58.6 % . [facility] No Panel InformationOrdered By: Yasmin Leung on 07-16-2023 Estimated GFR (CKD-EPI) > 60.0 mL/Min [facility] Creatinine Clearance (Chem 119.81 [facility] Nucleated erythrocytes [Pres ence] in Blood by Automated countOrdered By: Yasmin Leung on 07-16-2023 Nucleated RBC Auto Ql (Bld) 0.1 /100{WBC} 0-0.5 [facility] Platelet mean volume Auto (B ld) [Entitic vol]Ordered By: Yasmin Leung on 07-16-2023 Platelet mean volume (Bld) [Entitic vol] 6.9 fL 6.3-10.7 [facility] Platelets Auto (Bld) [#/Vol] Ordered By: Yasmin Leung on 07-16-2023 Platelets (Bld) [#/Vol] 414 10*3/uL 150-450 [facility] Potassium [Moles/volume] in Serum or PlasmaOrdered By: Yasmin Leung on 07-16-2023 Potassium [Moles/Vol] 3.7 mmol/L 3.5-5.1 [facility] RBC Auto (Bld) [#/Vol]Ordere d By: Yasmin Leung on 07-16-2023 RBC (Bld) [#/Vol] 4.75 10*6/uL 3.60-5.00 [facility] Serum or plasma anion gap de terminationOrdered By: Yasmin Leung on 07-16-2023 Anion gap [Moles/Vol] 9.2 mmol/L 6.0-15.0 [facility] Sodium [Moles/volume] in Ser um or PlasmaOrdered By: Yasmin Leung on 07-16-2023 Sodium [Moles/Vol] 138 mmol/L 136-145 [facility] Urea nitrogen [Mass/volume] in Serum or PlasmaOrdered By: Yasmin Leung on 07-16-2023 Urea nitrogen [Mass/Vol] 10 mg/dL 7-25 [facility] WBC Auto (Bld) [#/Vol]Ordere d By: Yasmin Leung on 07-16-2023 WBC (Bld) [#/Vol] 13.6 10*3/uL 3.8-11.6 [facility] COVID CepheidOrdered By: Antonio Villeda on 07-05-2023 SARS-CoV-2 (COVID-19) Ab IA Ql Negative Negative [facility] Comment on above: This is a duplicate Cepheid Xpert Xpress CoV-2/Flu/RSV Plus RNA by RT-PCR result to be used for statistical tracking purpose only. SARS-CoV-2 (COVID-19) RNA SOILA+probe Ql (Unsp spec) [facility] COVID-19 / Flu A/B / [...] or Cepheid Disclaimer revoked sooner. PERFORMED BY: [place] [id number] PATHOLOGIST [facility] [employer] WAYNE WAKEFIELD M.D. Normal [facility] Comment on above: Performed By: #### G LULS #### Point of Care testing , Cepheid COVID PCR Negativeon 07-05-2023 SARS-CoV-2 (COVID-19) RNA SOILA+probe Ql (Unsp spec) Negative Normal Negative [facility] Comment on above: Result Comment: This is a duplicate CepBugHerdid Xpert Xpress CoV-2/Flu/RSV Plus RNA by RT-PCR result to be used for statistical tracking purpose only. PERFORMED BY: [place] [address] PATHOLOGIST [facility] [employer] WAYNE WAKEFIELD M.D. Performed By: #### G LULS #### Point of Care testing , XR chest 2V*on 07-05-2023 XR chest 2V* [facility] [address] [address] XRay Report Signed Patient: Christiane Perez MR#: [id number] 2 : 1975 Acct:[id number] Age/Sex: 48 / F ADM Date: 07/05/23 Loc: ER Room: Type: [facility] ER Attending Dr: Copies to: Elio Villeda [...] Giovanny Cleveland M.D.07/05/2023 2:41 PM Dictation Location: [place] [address] Transcribed By: [facility] 07/05/23 1441 Dictated By: Giovanny Cleveland DO 07/05/23 1437 Signed By: 07/05/23 1441 [facility] Quick Strepon 06-20-2023 S. pyogenes Org specific cx Ql (Throat) Negative [employer] [facility] [employer] Other Quick Strep [facility] [employer] Other CT chest wo conon 04-09-2023 CT chest wo con [facility] [place] [address] CT Scan Report Signed Patient: Christiane Perez MR#: [id number] 2 : 1975 Acct:[id number] Age/Sex: 48 / F ADM Date: 04/09/23 Loc: [facility] Room: Type: [facility] Attending Dr: Valeriano Horta MD Copies [...] Johnson Jr., D.OJosue04/09/2023 3:00 PM Dictation Location: [place] [address] Transcribed By: [facility] 04/09/23 1500 Dictated By: Rodger Johnson Jr, DO 04/09/23 1455 Signed By: 04/09/23 1500 Normal [facility] SURGICAL PATHOLOGY REFERENCE LAB CONSULTon 03-19-2023 CASE REPORT Normal [facility] Comment on above: Order Comment: Speci tee Type: SLIDE Ordering Facility: [facility] Address: [address] [place] [phone] Result Comment: Surg ical Pathology Report Case: [id number] Authorizing Provider: Gregory Aranda MD Collected: 03/19/2023 09:16 AM Ordering Location: [facility] Main Received: 03/19/2023 09:14 AM Pathologist: Mando Gar MD Specimen: SLIDE(S), 8 SLIDES [id number] Performed By: #### L [id number] #### [facility] CLIA [id number] [address] [place] [address] [place] CLINICAL HISTORY CONSULT REQUESTED Normal [facility] Comment on above: Order Comment: Rosalee oliveira Type: SLIDE Ordering Facility: [facility] Address: [address] [place] [phone] Performed By: #### L [id number] #### [facility] CLIA [id number] [address] [place] [address] [place] DIAGNOSIS COMMENT Normal [facility] Comment on above: Order Comment: Speci men Type: SLIDE Ordering Facility: [facility] Address: [address] [place] [phone] Result Comment: Than k you for sharing [...] available, is recommended. Performed By: #### L [id number] #### [facility] CLIA [id number] [address] [place] [address] FINAL DIAGNOSIS Normal [facility] Comment on above: Order Comment: Speci men Type: SLIDE Ordering Facility: [facility] Address: [address] [place] [phone] Result Comment: Lung , left upper lobe, transbronchial biopsy (S [id number], A1; 03/11/2023): -Organizing acute lung injury with fibrin and acute inflammation Performed By: #### L [id number] #### [facility] CLIA [id number] [address] [place] [address] [place] FINAL PERFORMING LAB Normal [facility] Comment on above: Order Comment: Speci men Type: SLIDE Ordering Facility: [facility] Address: [address] [place], [place] [phone] Result Comment: Diag nostic interpretation performed at [facility], [address] [place] [address] CLIA# [id number] Postdoctoral Research Associate: Don Meehan M.D. Performed By: #### L [id number] #### [facility] CLIA [id number] [address] [place] [address] [place] XR chest 1V portableon 03-17 XR chest 1V portable [facility] [place] [address] XRay Report Signed Patient: Christiane Perez MR#: [id number] 2 : 1975 Acct:[id number] Age/Sex: 48 / F ADM Date: 03/10/23 Loc: Room: [address] [place] [address] Type: DIS IN Attending Dr: Krunal Kelly [...] Johnson Jr., D.O.03/17/2023 10:12 AM Dictation Location: [place] [address] Transcribed By: [facility] 03/17/23 1012 Dictated By: Rodger Johnson Jr, DO 03/17/23 1012 Signed By: 03/17/23 1012 Normal [facility] A1C with Estimated Average Sophia franks 03-14-2023 Glucose [Mass/Vol] 171 mg/dL Normal [facility] Comment on above: Result Comment: PERF ORMED BY: [facility] [place] [address] PATHOLOGIST [employer] WAYNE WAKEFIELD M.D. Performed By: #### G LULS #### Point of Care testing , HbA1c (Bld) [Mass fraction] 7.6 % High 4.3-5.6 [facility] Comment on above: Result Comment: Incr eased risk for diabetes: 5.7 - 6.4 diabetes: >6.4 glycemic control for adults with diabetes: <7.0 Performed By: #### G LULS #### Point of Care testing , Alanine aminotransferase [En zymatic activity/volume] in Serum or PlasmaOrdered By: Krunal Kelly on 03-14-2023 ALT [Catalytic activity/Vol] 5 U/L 7-52 [facility] Albumin [Mass/volume] in Ser um or Plasma by Bromocresol green (BCG) dye binding methoOrdered By: Krunal Kelly on 03-14-2023 Albumin BCG dye [Mass/Vol] 2.9 g/dL 3.5-5.7 [facility] Alkaline phosphatase [Enzyma tic activity/volume] in Serum or PlasmaOrdered By: Krunal Kelly on 03-14-2023 ALP [Catalytic activity/Vol] 94 U/L 34-104 [facility] Aspartate aminotransferase [ Enzymatic activity/volume] in Serum or PlasmaOrdered By: Krunal Kelly on 03-14-2023 AST [Catalytic activity/Vol] 8 U/L 13-39 [facility] Basophils Auto (Bld) [#/Vol] Ordered By: Eron Wood on 03-14-2023 Basophils (Bld) [#/Vol] 0.1 10*3/uL 0.0-0.2 [facility] Basophils/100 WBC Auto (Bld) Ordered By: Eron Wood on 03-14-2023 Basophils/100 WBC (Bld) 0.7 % . [facility] Bilirubin.total [Mass/volume ] in Serum or PlasmaOrdered By: Krunal Kelly on 03-14-2023 Bilirubin [Mass/Vol] 0.7 mg/dL 0.3-1.0 [facility] Calcium [Mass/volume] in Ser um or PlasmaOrdered By: Krunal Kelly on 03-14-2023 Calcium [Mass/Vol] 8.3 mg/dL 8.6-10.3 [facility] Carbon dioxide, total [Moles /volume] in Serum or PlasmaOrdered By: Krunal Kelly on 03-14-2023 CO2 [Moles/Vol] 24.8 mmol/L 21.0-31.0 [facility] Chloride [Moles/volume] in S kaitlin or PlasmaOrdered By: Krunal Kelly on 03-14-2023 Chloride [Moles/Vol] 108 mmol/L 98-107 [facility] Complete Blood Count Auto Di ffon 03-14-2023 Basophils (Bld) [#/Vol] 0.1 10*3/uL Normal 0.0-0.2 [facility] Comment on above: Result Comment: PERF ORMED BY: [place] [address] PATHOLOGIST [employer] WAYNE WAKEFIELD M.D. Performed By: #### V ANCT #### [facility] [address] [place] [address] [place] Basophils/100 WBC (Bld) 0.7 % Normal . [facility] Comment on above: Performed By: #### V ANCT #### [facility] [address] [place] [address] [place] Eosinophils (Bld) [#/Vol] 0.4 10*3/uL Normal 0.0-0.45 [facility] Comment on above: Performed By: #### V ANCT #### [facility] [address] [place] [address] [place] Eosinophils/100 WBC (Bld) 4.4 % Normal . [facility] Comment on above: Performed By: #### V ANCT #### [address] Erythrocyte distribution width (RBC) [Ratio] 15.5 % High 11.9-15.3 [facility] Comment on above: Performed By: #### V ANCT #### [address] Hematocrit (Bld) [Volume fraction] 35.1 % Normal 34.0-46.4 [facility] Comment on above: Performed By: #### V ANCT #### [address] Hemoglobin (Bld) [Mass/Vol] 12.0 g/dL Normal 11.8-15.4 [facility] Comment on above: Performed By: #### V ANCT #### [address] Lymphocytes (Bld) [#/Vol] 1.6 10*3/uL Normal 1.00-4.8 [facility] Comment on above: Performed By: #### V ANCT #### [address] Lymphocytes/100 WBC (Bld) 16.8 % Normal . [facility] Comment on above: Performed By: #### V ANCT #### [address] MCH (RBC) [Entitic mass] 32.8 pg Normal 24.7-34.3 [facility] Comment on above: Performed By: #### V ANCT #### [address] MCV (RBC) [Entitic vol] 96.4 fL Normal 80-100 [facility] Comment on above: Performed By: #### V ANCT #### [address] Mean Corpuscular HGB Conc 34.1 g/dL Normal 32.0-35.0 [facility] Comment on above: Performed By: #### V ANCT #### [facility] [address] [place] [address] [place] Monocytes (Bld) [#/Vol] 0.7 10*3/uL Normal 0.0-0.8 [facility] Comment on above: Performed By: #### V ANCT #### [facility] [address] [place] [address] [place] Monocytes/100 WBC (Bld) 7.1 % Normal . [facility] Comment on above: Performed By: #### V ANCT #### [address] Neutrophils (Bld) [#/Vol] 6.8 10*3/uL Normal 1.8-7.7 [facility] Comment on above: Performed By: #### V ANCT #### [address] Neutrophils/100 WBC (Bld) 71.0 % Normal . [facility] Comment on above: Performed By: #### V ANCT #### [place] [address] [place] NRBC% 0.1 /100{WBC} Normal 0-0.5 [facility] Comment on above: Performed By: #### V ANCT #### [address] Platelet mean volume (Bld) [Entitic vol] 6.2 fL Low 6.3-10.7 [facility] Comment on above: Performed By: #### V ANCT #### [place] [address] [place] Platelets (Bld) [#/Vol] 424 10*3/uL Normal 150-450 [facility] Comment on above: Performed By: #### V ANCT #### [place] [address] [place] RBC (Bld) [#/Vol] 3.65 10*6/uL Normal 3.60-5.00 [facility] Comment on above: Performed By: #### V ANCT #### [facility] [address] WBC (Bld) [#/Vol] 9.6 10*3/uL Normal 3.8-11.6 [facility] Comment on above: Performed By: #### V ANCT #### [facility] [address] Comprehensive Metabolic Pane moose 03-14-2023 Albumin [Mass/Vol] 2.9 g/dL Low 3.5-5.7 [facility] Comment on above: Performed By: #### G MARE #### Point of Care testing , Albumin/Globulin [Mass ratio] 0.8 {ratio} Normal [facility] Comment on above: Performed By: #### Sophia GARVEY #### Point of Care testing , ALP [Catalytic activity/Vol] 94 U/L Normal 34-104 [facility] Comment on above: Performed By: #### Sophia GARVEY #### Point of Care testing , ALT [Catalytic activity/Vol] 5 U/L Low 7-52 [facility] Comment on above: Performed By: #### Sophia GARVEY #### Point of Care testing , Anion gap [Moles/Vol] 8.9 mmol/L Normal 6.0-15.0 [facility] Comment on above: Performed By: #### Sophia GARVEY #### Point of Care testing , AST [Catalytic activity/Vol] 8 U/L Low 13-39 [facility] Comment on above: Performed By: #### Sophia GARVEY #### Point of Care testing , Bilirubin [Mass/Vol] 0.7 mg/dL Normal 0.3-1.0 [facility] Comment on above: Performed By: #### Sophia GARVEY #### Point of Care testing , Calcium [Mass/Vol] 8.3 mg/dL Low 8.6-10.3 [facility] Comment on above: Performed By: #### Sophia GARVEY #### Point of Care testing , Chloride [Moles/Vol] 108 mmol/L High 98-107 [facility] Comment on above: Performed By: #### G LULS #### Point of Care testing , CO2 [Moles/Vol] 24.8 mmol/L Normal 21.0-31.0 [facility] Comment on above: Performed By: #### G MARYLS #### Point of Care testing , Creatinine [Mass/Vol] 0.68 mg/dL Normal 0.60-1.20 [facility] Comment on above: Performed By: #### G MARYLS #### Point of Care testing , Creatinine Clr Calc Pharmacy 119.15 [facility] Comment on above: Result Comment: PERF ORMED BY: [facility] [address] [place] [address] PATHOLOGIST [employer] WAYNE WAKEFIELD M.D. Performed By: #### G MARYLS #### Point of Care testing , GFR/1.73 sq M.predicted MDRD (S/P/Bld) [Vol rate/Area] mL/min/{1.73_m2} [facility] Comment on above: Performed By: #### G MARYLS #### Point of Care testing , Globulin (S) [Mass/Vol] 3.7 g/dL [facility] Comment on above: Performed By: #### G MARYLS #### Point of Care testing , Glucose [Mass/Vol] 86 mg/dL Normal 70-100 [facility] Comment on above: Result Comment: [place] Glucose Reference Range is dependent on time and content of last meal. Glucose of more than 200 mg/dL in a nonstressed, ambulatory subject supports the diagnosis of Diabetes Mellitus. ADA recommended reference range Performed By: #### G LULS #### Point of Care testing , Potassium [Moles/Vol] 3.7 mmol/L Normal 3.5-5.1 [facility] Comment on above: Performed By: #### G MARYLS #### Point of Care testing , Protein [Mass/Vol] 6.6 g/dL Normal 6.4-8.9 [facility] Comment on above: Performed By: #### G MARYLS #### Point of Care testing , Sodium [Moles/Vol] 138 mmol/L Normal 136-145 [facility] Comment on above: Performed By: #### G LULS #### Point of Care testing , Urea nitrogen [Mass/Vol] 6 mg/dL Low 03-09 [facility] Comment on above: Performed By: #### G LULS #### Point of Care testing , Creatinine [Mass/volume] in Serum or PlasmaOrdered By: Krunal Kelly on 03-14-2023 Creatinine [Mass/Vol] 0.68 mg/dL 0.60-1.20 [facility] Eosinophils Auto (Bld) [#/Vo l]Ordered By: Eron Wood on 03-14-2023 Eosinophils (Bld) [#/Vol] 0.4 10*3/uL 0.0-0.45 [facility] Eosinophils/100 WBC Auto (Bl d)Ordered By: Eron Wood on 03-14-2023 Eosinophils/100 WBC (Bld) 4.4 % . [facility] Erythrocyte distribution wid th Auto (RBC) [Ratio]Ordered By: Eron Wood on 03-14-2023 Erythrocyte distribution width (RBC) [Ratio] 15.5 % 11.9-15.3 [facility] Globulin Calc (S) [Mass/Vol] Ordered By: Krunal Kelly on 03-14-2023 Globulin (S) [Mass/Vol] 3.7 g/dL [facility] Glucose Glucometer (BldC) [M ass/Vol]Ordered By: Krunal Kelly on 03-14-2023 Glucose [Mass/Vol] 249 mg/dL [facility] Comment on above: Random Glucose Refer ence Range is dependent on time and content of last meal. Glucose of more than 200 mg/dL in a nonstressed, ambulatory subject supports the diagnosis of Diabetes Mellitus. Glucose Poct Glucometerson 0 03-14-2023 Glucose [Mass/Vol] 249 mg/dL Normal [facility] Comment on above: Result Comment: [place] om Glucose Reference Range is dependent on time and content of last meal. Glucose of more than 200 mg/dL in a nonstressed, ambulatory subject supports the diagnosis of Diabetes Mellitus. PERFORMED BY: [facility] [address] [place] [address] PATHOLOGIST [employer] WAYNE WAKEFIELD M.D. Performed By: #### G LULS #### Point of Care testing , Commemt1 Glu2: Cleaned Meter Normal [facility] Comment on above: Result Comment: PERF ORMED BY: [facility] [address] [place] [address] PATHOLOGIST [employer] WAYNE WAKEFIELD M.D. Performed By: #### G LULS #### Point of Care testing , Glucose [Mass/Vol] 95 mg/dL Normal [facility] Comment on above: Result Comment: [place] Glucose Reference Range is dependent on time and content of last meal. Glucose of more than 200 mg/dL in a nonstressed, ambulatory subject supports the diagnosis of Diabetes Mellitus. Performed By: #### G LULS #### Point of Care testing , Glucose [Mass/volume] in Ser um or PlasmaOrdered By: Krunal Kelly on 03-14-2023 Glucose [Mass/Vol] 86 mg/dL 70-100 [facility] Comment on above: ADA recommended refe rence rangeRandom Glucose Reference Range is dependent on time and content of last meal. Glucose of more than 200 mg/dL in a nonstressed, ambulatory subject supports the diagnosis of Diabetes Mellitus. Glucose mean value [Mass/vol ume] in Blood Estimated from glycated hemoglobinOrdered By: Krunal Kelly on 03-14-2023 Average glucose Estimated from glycated hemoglobin (Bld) [Mass/Vol] 171 mg/dL [facility] Hematocrit Auto (Bld) [Volum e fraction]Ordered By: Eron Wood on 03-14-2023 Hematocrit (Bld) [Volume fraction] 35.1 % 34.0-46.4 [facility] Hemoglobin A1c percentageOrd ered By: Krunal Kelly on 03-14-2023 HbA1c (Bld) [Mass fraction] 7.6 % 4.3-5.6 [facility] Comment on above: Increased risk for d iabetes: 5.7 - 6.4diabetes: >6.4glycemic control for adults with diabetes: <7.0 Hemoglobin [Mass/volume] in BloodOrdered By: Eron Wood on 03-14-2023 Hemoglobin (Bld) [Mass/Vol] 12.0 g/dL 11.8-15.4 [facility] Leukocytes [#/volume] correc billy for nucleated erythrocytes in Blood by Automated counOrdered By: Eron Wood on 03-14-2023 WBC corrected for nucl RBC Auto (Bld) [#/Vol] 9.6 10*3/uL 3.8-11.6 [facility] Lymphocytes Auto (Bld) [#/Vo l]Ordered By: Eron Wood on 03-14-2023 Lymphocytes (Bld) [#/Vol] 1.6 10*3/uL 1.00-4.8 [facility] Lymphocytes/100 WBC Auto (Bl d)Ordered By: Eron Wood on 03-14-2023 Lymphocytes/100 WBC (Bld) 16.8 % . [facility] MCH Auto (RBC) [Entitic mass ]Ordered By: Eron Wood on 03-14-2023 MCH (RBC) [Entitic mass] 32.8 pg 24.7-34.3 [facility] MCHC Auto (RBC) [Mass/Vol]Or dered By: Eron Wood on 03-14-2023 MCHC (RBC) [Mass/Vol] 34.1 g/dL 32.0-35.0 [facility] MCV Auto (RBC) [Entitic vol] Ordered By: Eron Wood on 03-14-2023 MCV (RBC) [Entitic vol] 96.4 fL 80-100 [facility] Monocytes Auto (Bld) [#/Vol] Ordered By: Eron Wood on 03-14-2023 Monocytes (Bld) [#/Vol] 0.7 10*3/uL 0.0-0.8 [facility] Monocytes/100 WBC Auto (Bld) Ordered By: Eron Wood on 03-14-2023 Monocytes/100 WBC (Bld) 7.1 % . [facility] Neutrophils Auto (Bld) [#/Vo l]Ordered By: Eron Wood on 03-14-2023 Neutrophils (Bld) [#/Vol] 6.8 10*3/uL 1.8-7.7 [facility] Neutrophils/100 WBC Auto (Bl d)Ordered By: Eron Wood on 03-14-2023 Neutrophils/100 WBC (Bld) 71.0 % . [facility] No Panel InformationOrdered By: Krunal Kelly on 03-14-2023 Bedside Glucose Comment Glu2: cleaned meter [facility] Estimated GFR (CKD-EPI) > 60.0 mL/Min [facility] Pharmacy Creatinine Clearance (Chem 119.15 [facility] Nucleated erythrocytes [Pres ence] in Blood by Automated countOrdered By: Eron Wood on 03-14-2023 Nucleated RBC Auto Ql (Bld) 0.1 /100{WBC} 0-0.5 [facility] Platelet mean volume Auto (B ld) [Entitic vol]Ordered By: Eron Wood on 03-14-2023 Platelet mean volume (Bld) [Entitic vol] 6.2 fL 6.3-10.7 [facility] Platelets Auto (Bld) [#/Vol] Ordered By: Eron Wood on 03-14-2023 Platelets (Bld) [#/Vol] 424 10*3/uL 150-450 [facility] Potassium [Moles/volume] in Serum or PlasmaOrdered By: Krunal Kelly on 03-14-2023 Potassium [Moles/Vol] 3.7 mmol/L 3.5-5.1 [facility] Protein [Mass/volume] in Ser um or PlasmaOrdered By: Krunal Kelly on 03-14-2023 Protein [Mass/Vol] 6.6 g/dL 6.4-8.9 [facility] RBC Auto (Bld) [#/Vol]Ordere d By: Eron Wood on 03-14-2023 RBC (Bld) [#/Vol] 3.65 10*6/uL 3.60-5.00 [facility] Serum or plasma albumin/glob ulin mass ratioOrdered By: Krunal Kelly on 03-14-2023 Albumin/Globulin [Mass ratio] 0.8 {ratio} [facility] Serum or plasma anion gap de terminationOrdered By: Krunal Kelly on 03-14-2023 Anion gap [Moles/Vol] 8.9 mmol/L 6.0-15.0 [facility] Sodium [Moles/volume] in Ser um or PlasmaOrdered By: Krunal Kelly on 03-14-2023 Sodium [Moles/Vol] 138 mmol/L 136-145 [facility] Urea nitrogen [Mass/volume] in Serum or PlasmaOrdered By: Krunal Kelly on 03-14-2023 Urea nitrogen [Mass/Vol] 6 mg/dL 7-25 [facility] WBC Auto (Bld) [#/Vol]Ordere d By: Eron Wood on 03-14-2023 WBC (Bld) [#/Vol] 9.6 10*3/uL 3.8-11.6 [facility] Basic Metabolic Panelon 02-14 Anion gap [Moles/Vol] 8.9 mmol/L Normal 6.0-15.0 [facility] Comment on above: Performed By: #### C BC, BMP, MG #### [facility] [address] [place] [address] [place] Calcium [Mass/Vol] 8.4 mg/dL Low 8.6-10.3 [facility] Comment on above: Performed By: #### C BC, BMP, MG #### [facility] [address] [place] [address] [place] Chloride [Moles/Vol] 109 mmol/L High 98-107 [facility] Comment on above: Performed By: #### C BC, BMP, MG #### [facility] [address] [place] [address] [place] CO2 [Moles/Vol] 24.9 mmol/L Normal 21.0-31.0 [facility] Comment on above: Performed By: #### C BC, BMP, MG #### [facility] [address] Creatinine [Mass/Vol] 0.61 mg/dL Normal 0.60-1.20 [facility] Comment on above: Performed By: #### C BC, BMP, MG #### [facility] [address] [place] [address] [place] Creatinine Clr Calc Pharmacy 132.97 [facility] Comment on above: Result Comment: PERF ORMED BY: [place] [address] PATHOLOGIST [employer] WAYNE WAKEFIELD M.D. Performed By: #### C BC, BMP, MG #### [place] [address] [place] GFR/1.73 sq M.predicted MDRD (S/P/Bld) [Vol rate/Area] mL/min/{1.73_m2} Normal [facility] Comment on above: Performed By: #### C BC, BMP, MG #### [address] Glucose [Mass/Vol] 97 mg/dL Normal 70-100 [facility] Comment on above: Result Comment: [place] Glucose Reference Range is dependent on time and content of last meal. Glucose of more than 200 mg/dL in a nonstressed, ambulatory subject supports the diagnosis of Diabetes Mellitus. ADA recommended reference range Performed By: #### C BC, BMP, MG #### [place] [address] [place] Potassium [Moles/Vol] 3.8 mmol/L Normal 3.5-5.1 [facility] Comment on above: Performed By: #### C BC, BMP, MG #### [address] Sodium [Moles/Vol] 139 mmol/L Normal 136-145 [facility] Comment on above: Performed By: #### C BC, BMP, MG #### [place] [address] [place] Urea nitrogen [Mass/Vol] 6 mg/dL Low 7-25 [facility] Comment on above: Performed By: #### C DANIELE BMP, MG #### [address] Complete Blood Count Auto Di ffon 03-13-2023 Basophils (Bld) [#/Vol] 0.0 10*3/uL Normal 0.0-0.2 [facility] Comment on above: Result Comment: PERF ORMED BY: [place] [address] PATHOLOGIST [employer] WAYNE WAKEFIELD M.D. Performed By: #### C DANIELE BMP, MG #### [address] Basophils/100 WBC (Bld) 0.5 % Normal . [facility] Comment on above: Performed By: #### C DANIELE BMP, MG #### [address] Eosinophils (Bld) [#/Vol] 0.4 10*3/uL Normal 0.0-0.45 [facility] Comment on above: Performed By: #### C DANIELE BMP, MG #### [address] Eosinophils/100 WBC (Bld) 4.5 % Normal . [facility] Comment on above: Performed By: #### C BC BMP, MG #### [address] Erythrocyte distribution width (RBC) [Ratio] 15.7 % High 11.9-15.3 [facility] Comment on above: Performed By: #### C BC BMP, MG #### [address] Hematocrit (Bld) [Volume fraction] 36.2 % Normal 34.0-46.4 [facility] Comment on above: Performed By: #### C BC BMP, MG #### [address] Hemoglobin (Bld) [Mass/Vol] 12.1 g/dL Normal 11.8-15.4 [facility] Comment on above: Performed By: #### C BC, BMP, MG #### [address] Lymphocytes (Bld) [#/Vol] 1.5 10*3/uL Normal 1.00-4.8 [facility] Comment on above: Performed By: #### C BC, BMP, MG #### [address] Lymphocytes/100 WBC (Bld) 16.5 % Normal . [facility] Comment on above: Performed By: #### C BC, BMP, MG #### [address] MCH (RBC) [Entitic mass] 32.3 pg Normal 24.7-34.3 [facility] Comment on above: Performed By: #### C BC, BMP, MG #### [address] MCV (RBC) [Entitic vol] 96.7 fL Normal 80-100 [facility] Comment on above: Performed By: #### C BC, BMP, MG #### [address] Mean Corpuscular HGB Conc 33.4 g/dL Normal 32.0-35.0 [facility] Comment on above: Performed By: #### C BC, BMP, MG #### [address] Monocytes (Bld) [#/Vol] 0.7 10*3/uL Normal 0.0-0.8 [facility] Comment on above: Performed By: #### C BC, BMP, MG #### [address] Monocytes/100 WBC (Bld) 8.0 % Normal . [facility] Comment on above: Performed By: #### C BC, BMP, MG #### [place] [address] [place] Neutrophils (Bld) [#/Vol] 6.6 10*3/uL Normal 1.8-7.7 [facility] Comment on above: Performed By: #### C BC BMP, MG #### [facility] [address] Neutrophils/100 WBC (Bld) 70.5 % Normal . [facility] Comment on above: Performed By: #### C BC BMP, MG #### [facility] [address] NRBC% 0.1 /100{WBC} Normal 0-0.5 [facility] Comment on above: Performed By: #### C DANIELE BMP, MG #### [facility] [address] Platelet mean volume (Bld) [Entitic vol] 6.6 fL Normal 6.3-10.7 [facility] Comment on above: Performed By: #### C DANIELE BMP, MG #### [facility] [address] Platelets (Bld) [#/Vol] 398 10*3/uL Normal 150-450 [facility] Comment on above: Performed By: #### C DANIELE BMP, MG #### [address] RBC (Bld) [#/Vol] 3.75 10*6/uL Normal 3.60-5.00 [facility] Comment on above: Performed By: #### C BC BMP, MG #### [facility] [address] [place] [address] [place] WBC (Bld) [#/Vol] 9.3 10*3/uL Normal 3.8-11.6 [facility] Comment on above: Performed By: #### C BC BMP, MG #### [address] Glucose Poct Glucometerson 0 03-13-2023 Commemt1 Glu2: Cleaned Meter Normal [facility] Comment on above: Result Comment: PERF ORMED BY: [address] [place] [address] PATHOLOGIST [employer] WAYNE WAKEFIELD M.D. Performed By: #### V ANCT #### [facility] [address] [place] [address] Glucose [Mass/Vol] 152 mg/dL Normal [facility] Comment on above: Result Comment: [place] om Glucose Reference Range is dependent on time and content of last meal. Glucose of more than 200 mg/dL in a nonstressed, ambulatory subject supports the diagnosis of Diabetes Mellitus. Performed By: #### V ANCT #### [facility] [address] [place] [address] Glucose [Mass/Vol] 190 mg/dL Normal [facility] Comment on above: Result Comment: [place] om Glucose Reference Range is dependent on time and content of last meal. Glucose of more than 200 mg/dL in a nonstressed, ambulatory subject supports the diagnosis of Diabetes Mellitus. PERFORMED BY: [place] [address] PATHOLOGIST [employer] WAYNE WAKEFIELD M.D. Performed By: #### G LULS #### Point of Care testing , Glucose [Mass/Vol] 176 mg/dL Normal [facility] Comment on above: Result Comment: [place] om Glucose Reference Range is dependent on time and content of last meal. Glucose of more than 200 mg/dL in a nonstressed, ambulatory subject supports the diagnosis of Diabetes Mellitus. PERFORMED BY: [place] [address] PATHOLOGIST [employer] WAYNE WAKEFIELD M.D. Performed By: #### G LULS #### Point of Care testing , Glucose [Mass/Vol] 107 mg/dL Normal [facility] Comment on above: Result Comment: [place] om Glucose Reference Range is dependent on time and content of last meal. Glucose of more than 200 mg/dL in a nonstressed, ambulatory subject supports the diagnosis of Diabetes Mellitus. PERFORMED BY: [address] [place] [address] PATHOLOGIST [employer] WAYNE WAKEFIELD M.D. Performed By: #### G LULS #### Point of Care testing , Glucose [Mass/Vol] 101 mg/dL Normal [facility] Comment on above: Result Comment: [place] Glucose Reference Range is dependent on time and content of last meal. Glucose of more than 200 mg/dL in a nonstressed, ambulatory subject supports the diagnosis of Diabetes Mellitus. PERFORMED BY: [address] [place] [address] PATHOLOGIST [employer] WAYNE WAKEFIELD M.D. Performed By: #### G LULS #### Point of Care testing , Serum or plasma trough vanco mycin levelOrdered By: Eron Wood on 03-13-2023 Vancomycin trough [Mass/Vol] 16.8 ug/mL 10.0-20.0 [facility] Comment on above: Last dose: - Vancomycin,Troughon 03-13-20 Vancomycin,Trough 16.8 ug/mL Normal 10.0-20.0 [facility] Comment on above: Result Comment: Last dose: - PERFORMED BY: [address] [place] [id number] PATHOLOGIST [employer] WAYNE WAKEFIELD M.D. Performed By: #### G LULS #### Point of Care testing , Ammoniaon 03-12-2023 Ammonia (P) [Moles/Vol] 31 umol/L Normal [facility] Comment on above: Result Comment: PERF ORMED BY: [address] [place] [id number] PATHOLOGIST [employer] WAYNE WAKEFIELD M.D. Performed By: #### G LULS #### Point of Care testing , Ammonia [Moles/volume] in Pl asmaOrdered By: Víctor Stallings on 03-12-2023 Ammonia (P) [Moles/Vol] 31 umol/L [facility] Amphetamine Screen Ql (U)Ord ered By: Eron Wood on 03-12-2023 Amphetamines Ql (U) Negative Negative [facility] Barbiturates [Presence] in U rine by Screen methodOrdered By: Eron Wood on 03-12-2023 Barbiturates Screen Ql (U) Negative Negative [facility] Basic Metabolic Panelon 02-14 Anion gap [Moles/Vol] 9.5 mmol/L Normal 6.0-15.0 [facility] Comment on above: Performed By: #### G LULS #### Point of Care testing , Calcium [Mass/Vol] 8.2 mg/dL Low 8.6-10.3 [facility] Comment on above: Performed By: #### G LULS #### Point of Care testing , Chloride [Moles/Vol] 109 mmol/L High 98-107 [facility] Comment on above: Performed By: #### G LULS #### Point of Care testing , CO2 [Moles/Vol] 23.3 mmol/L Normal 21.0-31.0 [facility] Comment on above: Performed By: #### G LULS #### Point of Care testing , Creatinine [Mass/Vol] 0.73 mg/dL Normal 0.60-1.20 [facility] Comment on above: Performed By: #### G LULS #### Point of Care testing , Creatinine Clr Calc Pharmacy 111.29 [facility] Comment on above: Result Comment: PERF ORMED BY: [facility] [address] [place] [address] PATHOLOGIST [employer] WAYNE WAKEFIELD M.D. Performed By: #### G LULS #### Point of Care testing , GFR/1.73 sq M.predicted MDRD (S/P/Bld) [Vol rate/Area] mL/min/{1.73_m2} [facility] Comment on above: Performed By: #### G LULS #### Point of Care testing , Glucose [Mass/Vol] 62 mg/dL Low 70-100 [facility] Comment on above: Result Comment: [place] Glucose Reference Range is dependent on time and content of last meal. Glucose of more than 200 mg/dL in a nonstressed, ambulatory subject supports the diagnosis of Diabetes Mellitus. ADA recommended reference range Performed By: #### G LULS #### Point of Care testing , Potassium [Moles/Vol] 3.8 mmol/L Normal 3.5-5.1 [facility] Comment on above: Performed By: #### G LULS #### Point of Care testing , Sodium [Moles/Vol] 138 mmol/L Normal 136-145 [facility] Comment on above: Performed By: #### G LULS #### Point of Care testing , Urea nitrogen [Mass/Vol] 8 mg/dL Normal 7-25 [facility] Comment on above: Performed By: #### G LULS #### Point of Care testing , Benzodiazepines Screen Ql (U )Ordered By: Eron Wood on 03-12-2023 Benzodiazepines Ql (U) Negative Negative [facility] Benzoylecgonine [Presence] i n Urine by Screen methodOrdered By: Eron Wood on 03-12-2023 Benzoylecgonine Screen Ql (U) Negative Negative [facility] CT head/brain wo conon 03-12 CT head/brain wo con [facility] [place] [address] CT Scan Report Signed Patient: Christiane Perez MR#: [id number] 2 : 1975 Acct:[id number] Age/Sex: 48 / F ADM Date: 03/10/23 Loc: Room: [address] [place] [address] Type: ADM IN Attending Dr: Eron Wood [...] Vick Eden M.D.03/12/2023 4:47 PM Dictation Location: [place] [address] Transcribed By: CHARLI 03/12/231646 Dictated By: Vick [place] II, MD 03/12/231643 Signed By: 03/12/231646 Normal [facility] Calciumon 03-12-2023 Calcium [Mass/Vol] 8.4 mg/dL Low 8.6-10.3 [facility] Comment on above: Result Comment: PERF ORMED BY: [facility] [address] [place] [address] PATHOLOGIST [employer] WAYNE WAKEFIELD M.D. Performed By: #### G LUAUGUSTIN #### Point of Care testing , Cannabinoids [Presence] in U rine by Screen methodOrdered By: Eron Wood on 03-12-2023 Cannabinoids Screen Ql (U) Negative Negative [facility] Comment on above: These are unconfirme d results and should not be used for legal purposes. Drug Cut-Off Concentration: AMPH 1000 ng/mL HANNAH 200 ng/mL JENNIFER 200 ng/mL COCM 300 ng/mL OP 300 ng/mL PCP 25 ng/mL THC 20 ng/mL Complete Blood Count Auto Di ffon 03-12-2023 Basophils (Bld) [#/Vol] 0.1 10*3/uL Normal 0.0-0.2 [facility] Comment on above: Result Comment: PERF ORMED BY: [facility] [address] [place] [address] PATHOLOGIST [employer] WAYNE WAKEFIELD M.D. Performed By: #### G MARYLS #### Point of Care testing , Basophils/100 WBC (Bld) 0.7 % Normal . [facility] Comment on above: Performed By: #### G MARYLS #### Point of Care testing , Eosinophils (Bld) [#/Vol] 0.3 10*3/uL Normal 0.0-0.45 [facility] Comment on above: Performed By: #### G MARYLS #### Point of Care testing , Eosinophils/100 WBC (Bld) 2.9 % Normal . [facility] Comment on above: Performed By: #### G MARYLS #### Point of Care testing , Erythrocyte distribution width (RBC) [Ratio] 15.8 % High 11.9-15.3 [facility] Comment on above: Performed By: #### G MARYLS #### Point of Care testing , Hematocrit (Bld) [Volume fraction] 35.6 % Normal 34.0-46.4 [facility] Comment on above: Performed By: #### G MARYLS #### Point of Care testing , Hemoglobin (Bld) [Mass/Vol] 11.8 g/dL Normal 11.8-15.4 [facility] Comment on above: Performed By: #### G MARYLS #### Point of Care testing , Lymphocytes (Bld) [#/Vol] 1.3 10*3/uL Normal 1.00-4.8 [facility] Comment on above: Performed By: #### G MARYLS #### Point of Care testing , Lymphocytes/100 WBC (Bld) 13.5 % Normal . [facility] Comment on above: Performed By: #### G MARYLS #### Point of Care testing , MCH (RBC) [Entitic mass] 32.4 pg Normal 24.7-34.3 [facility] Comment on above: Performed By: #### G MARYLS #### Point of Care testing , MCV (RBC) [Entitic vol] 97.7 fL Normal 80-100 [facility] Comment on above: Performed By: #### G MARYLS #### Point of Care testing , Mean Corpuscular HGB Conc 33.1 g/dL Normal 32.0-35.0 [facility] Comment on above: Performed By: #### Sophia GARVEY #### Point of Care testing , Monocytes (Bld) [#/Vol] 0.9 10*3/uL High 0.0-0.8 [facility] Comment on above: Performed By: #### Sophia GARVEY #### Point of Care testing , Monocytes/100 WBC (Bld) 9.2 % Normal . [facility] Comment on above: Performed By: #### Sophia HERNANDEZLS #### Point of Care testing , Neutrophils (Bld) [#/Vol] 7.2 10*3/uL Normal 1.8-7.7 [facility] Comment on above: Performed By: #### Sophia GARVEY #### Point of Care testing , Neutrophils/100 WBC (Bld) 73.7 % Normal . [facility] Comment on above: Performed By: #### Sophia GARVEY #### Point of Care testing , NRBC% 0.1 /100{WBC} Normal 0-0.5 [facility] Comment on above: Performed By: #### Sophia GARVEY #### Point of Care testing , Platelet mean volume (Bld) [Entitic vol] 6.8 fL Normal 6.3-10.7 [facility] Comment on above: Performed By: #### Sophia GARVEY #### Point of Care testing , Platelets (Bld) [#/Vol] 342 10*3/uL Normal 150-450 [facility] Comment on above: Performed By: #### Sophia GARVEY #### Point of Care testing , RBC (Bld) [#/Vol] 3.64 10*6/uL Normal 3.60-5.00 [facility] Comment on above: Performed By: #### Sophia GARVEY #### Point of Care testing , WBC (Bld) [#/Vol] 9.8 10*3/uL Normal 3.8-11.6 [facility] Comment on above: Performed By: #### G LULS #### Point of Care testing , Drug Screen,Urineon 03-12-20 Amphetamine Screen,Urine Negative Normal Negative [facility] Comment on above: Performed By: #### C BC, BMP, MG #### [address] Barbiturate Screen,Urine Negative Normal Negative [facility] Comment on above: Performed By: #### C BC, BMP, MG #### [place] [address] [place] Benzodiazepines Screen,Urine Negative Normal Negative [facility] Comment on above: Performed By: #### C BC, BMP, MG #### [address] Cannabinoid Screen,Urine Negative Normal Negative [facility] Comment on above: Result Comment: Thes e are unconfirmed results and should not be used for legal purposes. Drug Cut-Off Concentration: AMPH 1000 ng/mL HANNAH 200 ng/mL JENNIFER 200 ng/mL COCM 300 ng/mL OP 300 ng/mL PCP 25 ng/mL THC 20 ng/mL PERFORMED BY: [place] [address] PATHOLOGIST [employer] WAYNE WAKEFIELD M.D. Performed By: #### C BC, BMP, MG #### [address] Cocaine Screen,Urine Negative Normal Negative [facility] Comment on above: Performed By: #### C BC, BMP, MG #### [place] [address] [place] Opiate Screen,Urine Positive High Negative [facility] Comment on above: Performed By: #### C BC, BMP, MG #### [address] Phencyclidine Screen,Urine Negative Normal Negative [facility] Comment on above: Performed By: #### C BC, BMP, MG #### [address] Glucose Poct Glucometerson 0 03-12-2023 Commemt1 Glu2: Cleaned Meter [facility] Comment on above: Result Comment: PERF ORMED BY: [facility] [address] [facility] [place] [address] PATHOLOGIST [employer] WAYNE WAKEFIELD M.D. Performed By: #### C BC BMP, MG #### [facility] [address] Glucose [Mass/Vol] 199 mg/dL Normal [facility] Comment on above: Result Comment: [place] om Glucose Reference Range is dependent on time and content of last meal. Glucose of more than 200 mg/dL in a nonstressed, ambulatory subject supports the diagnosis of Diabetes Mellitus. Performed By: #### C DANIELE, BMP, MG #### [place] [address] [place] Glucose [Mass/Vol] 158 mg/dL Normal [facility] Comment on above: Result Comment: [place] om Glucose Reference Range is dependent on time and content of last meal. Glucose of more than 200 mg/dL in a nonstressed, ambulatory subject supports the diagnosis of Diabetes Mellitus. PERFORMED BY: [place] [address] PATHOLOGIST [employer] WAYNE WAKEFIELD M.D. Performed By: #### G LULS #### Point of Care testing , Glucose [Mass/Vol] 152 mg/dL Normal [facility] Comment on above: Result Comment: [place] om Glucose Reference Range is dependent on time and content of last meal. Glucose of more than 200 mg/dL in a nonstressed, ambulatory subject supports the diagnosis of Diabetes Mellitus. PERFORMED BY: [facility] [address] [facility] [place] [address] PATHOLOGIST [employer] WAYNE WAKEFIELD M.D. Performed By: #### G LULS #### Point of Care testing , Commemt1 Glu2: Cleaned Meter [facility] Comment on above: Result Comment: PERF ORMED BY: [facility] [address] [facility] [place] [address] PATHOLOGIST [employer] WAYNE WAKEFIELD M.D. Performed By: #### G LULS #### Point of Care testing , Glucose [Mass/Vol] 75 mg/dL Normal [facility] Comment on above: Result Comment: [facility] Glucose Reference Range is dependent on time and content of last meal. Glucose of more than 200 mg/dL in a nonstressed, ambulatory subject supports the diagnosis of Diabetes Mellitus. Performed By: #### G LULS #### Point of Care testing , Opiates [Presence] in Urine by Screen methodOrdered By: Eron Wood on 03-12-2023 Opiates Screen Ql (U) Positive Negative [facility] Phencyclidine Screen Ql (U)O rdered By: Eron Wood on 03-12-2023 Phencyclidine Ql (U) Negative Negative [facility] Vancomycin [Mass/volume] in Serum or Plasma --peakOrdered By: Eron Wood on 03-12-2023 Vancomycin peak [Mass/Vol] 14.6 ug/mL 20.0-40.0 [facility] Comment on above: Last dose: - Vancomycin,Peakon 03-12-2023 Vancomycin,Peak 14.6 ug/mL Low 20.0-40.0 [facility] Comment on above: Order Comment: Comme nt ?DRAW 1 HOUR AFTER INFUSION COMPLETES Date of last dose?: 20230312 Time of last dose?: 1500 Result Comment: Last dose: - PERFORMED BY: [place] [address] PATHOLOGIST [employer] WAYNE WAKEFIELD M.D. Performed By: #### G LULS #### Point of Care testing , Vancomycin,Troughon 03-12-20 23 Vancomycin,Trough 17.8 ug/mL Normal 10.0-20.0 [facility] Comment on above: Result Comment: Last dose: - PERFORMED BY: [place] [address] PATHOLOGIST [employer] WAYNE WAKEFIELD M.D. Performed By: #### V ANCT #### [address] XR chest 1V portableon 03-12 XR chest 1V portable [facility] [address] [address] XRay Report Signed Patient: Christiane Perez MR#: [id number] 2 : 1975 Acct:[id number] Age/Sex: 48 / F ADM Date: 03/10/23 Loc: 3T Room: [address] [place] [address] Type: ADM IN Attending Dr: Eron Wood [...] Vick Eden M.D.03/12/2023 4:19 PM Dictation Location: [place] [address] Transcribed By: CHARLI 03/12/23 161 Dictated By: Vick [place] II, MD 03/12/23 1617 Signed By: 03/12/23 1619 [facility] XR chest 1V portable [facility] [address] [address] XRay Report Signed Patient: Christiane Perez MR#: [id number] 2 : 1975 Acct:[id number] Age/Sex: 48 / F ADM Date: 03/10/23 Loc: 3T Room: [address] [place] [address] Type: ADM IN Attending Dr: Eron Wood [...] Vick Eden M.D.03/12/2023 1:57 PM Dictation Location: [place] [address] Transcribed By: [facility] 03/12/23 135 Dictated By: Vick Eden II, MD 03/12/231352 Signed By: 03/12/23 [facility] AFB Specimen Processingon AFB Specimen Processing Concentration Negative Performed at: [address] [id number] Assistant Chief Nursing Officer: Juan Jennings PhD, Phone: [phone] Negative No acid fast bacilli isolated after 6 weeks. Performed at: [address] [id number] Assistant Chief Nursing Officer: Juan Jennings PhD, Phone: [phone] PERFORMED BY: [place] [address] PATHOLOGIST [employer] WAYNE WAKEFIELD M.D. [facility] Comment on above: Performed By: #### G LULS #### Point of Care testing , Aerobic Cultureon 03-11-2023 Aerobic Culture ORGANISM: Janine tropicalis (O:CANTRO) Quantity of Growth Light Growth ORGANISM: Janine albicans (O:CANALB) Quantity of Growth Light Growth Gram Stain Result 1+ White Blood Cells Rare Epithelial Cells Rare Gram Positive Bacilli Rare Gram Positive Cocci 1+ Yeast Like Elements PERFORMED BY: [address] [address] PATHOLOGIST [employer] WAYNE WAKEFIELD M.D. [facility] [facility] Comment on above: Performed By: #### A ERC #### [address] [place] [address] [place] Bacteria identified Aer cx N om (Bronch spec)Ordered By: Errol Nicole on 03-11-2023 Bronchial Culture Janine tropicalis [facility] Bronchial Culture Janine albicans F [facility] Basic Metabolic Panelon 02-14 Anion gap [Moles/Vol] 8.9 mmol/L Normal 6.0-15.0 [facility] Comment on above: Performed By: #### C BC, BMP, MG #### [facility] [address] Calcium [Mass/Vol] 8.4 mg/dL Low 8.6-10.3 [facility] Comment on above: Performed By: #### C BC, BMP, MG #### [address] Chloride [Moles/Vol] 107 mmol/L Normal 98-107 [facility] Comment on above: Performed By: #### C BC, BMP, MG #### [address] CO2 [Moles/Vol] 25.0 mmol/L Normal 21.0-31.0 [facility] Comment on above: Performed By: #### C BC, BMP, MG #### [address] Creatinine [Mass/Vol] 0.72 mg/dL Normal 0.60-1.20 [facility] Comment on above: Performed By: #### C BC, BMP, MG #### [place] [address] [place] Creatinine Clr Calc Pharmacy 112.35 [facility] Comment on above: Performed By: #### C BC, BMP, MG #### [place] [address] [place] GFR/1.73 sq M.predicted MDRD (S/P/Bld) [Vol rate/Area] mL/min/{1.73_m2} [facility] Comment on above: Performed By: #### C BC, BMP, MG #### [address] [place] [address] [place] Glucose [Mass/Vol] 120 mg/dL High 70-100 [facility] Comment on above: Result Comment: [place] Glucose Reference Range is dependent on time and content of last meal. Glucose of more than 200 mg/dL in a nonstressed, ambulatory subject supports the diagnosis of Diabetes Mellitus. ADA recommended reference range Performed By: #### C BC, BMP, MG #### [facility] [address] Potassium [Moles/Vol] 3.9 mmol/L Normal 3.5-5.1 [facility] Comment on above: Performed By: #### C BC, BMP, MG #### [address] Sodium [Moles/Vol] 137 mmol/L Normal 136-145 [facility] Comment on above: Performed By: #### C BC, BMP, MG #### [facility] [address] [place] [address] Urea nitrogen [Mass/Vol] 10 mg/dL Normal 7-25 [facility] Comment on above: Performed By: #### C BC, BMP, MG #### [facility] [address] [place] [address] [place] Bronch Cultureon 03-11-2023 Bronch Culture ORGANISM: Janine tropicalis (O:CANTRO) Quantity of Growth Light Growth ORGANISM: Janine albicans (O:CANALB) Quantity of Growth Light Growth PERFORMED BY: [address] [place] [address] PATHOLOGIST [employer] WAYNE WAKEFIELD M.D. Normal [facility] Comment on above: Performed By: #### G LULS #### Point of Care testing , Complete Blood Count Auto Di ffon 03-11-2023 Basophils (Bld) [#/Vol] 0.0 10*3/uL Normal 0.0-0.2 [facility] Comment on above: Result Comment: PERF ORMED BY: [address] [place] [address] PATHOLOGIST [employer] WAYNE WAKEFIELD M.D. Performed By: #### C BC, BMP, MG #### [facility] [address] [place] [address] [place] Basophils/100 WBC (Bld) 0.3 % Normal . [facility] Comment on above: Performed By: #### C BC, BMP, MG #### [facility] [address] [place] [address] [place] Eosinophils (Bld) [#/Vol] 0.2 10*3/uL Normal 0.0-0.45 [facility] Comment on above: Performed By: #### C BC, BMP, MG #### [facility] [address] [place] [address] [place] Eosinophils/100 WBC (Bld) 2.1 % Normal . [facility] Comment on above: Performed By: #### C BC, BMP, MG #### [facility] [address] Erythrocyte distribution width (RBC) [Ratio] 15.9 % High 11.9-15.3 [facility] Comment on above: Performed By: #### C BC, BMP, MG #### [facility] [address] [place] [address] [place] Hematocrit (Bld) [Volume fraction] 36.2 % Normal 34.0-46.4 [facility] Comment on above: Performed By: #### C BC, BMP, MG #### [facility] [address] [place] [address] [place] Hemoglobin (Bld) [Mass/Vol] 11.9 g/dL Normal 11.8-15.4 [facility] Comment on above: Performed By: #### C BC, BMP, MG #### [facility] [address] [place] [address] [place] Lymphocytes (Bld) [#/Vol] 1.1 10*3/uL Normal 1.00-4.8 [facility] Comment on above: Performed By: #### C BC, BMP, MG #### [facility] [address] [place] [id number] [place] Lymphocytes/100 WBC (Bld) 9.5 % Normal . [facility] Comment on above: Performed By: #### C BC, BMP, MG #### [facility] [address] MCH (RBC) [Entitic mass] 31.9 pg Normal 24.7-34.3 [facility] Comment on above: Performed By: #### C BC, BMP, MG #### [facility] [address] [place] [address] MCV (RBC) [Entitic vol] 97.5 fL Normal 80-100 [facility] Comment on above: Performed By: #### C BC, BMP, MG #### [facility] [address] [place] [address] Mean Corpuscular HGB Conc 32.8 g/dL Normal 32.0-35.0 [facility] Comment on above: Performed By: #### C BC, BMP, MG #### [address] Monocytes (Bld) [#/Vol] 1.0 10*3/uL High 0.0-0.8 [facility] Comment on above: Performed By: #### C BC, BMP, MG #### [facility] [address] [place] [address] Monocytes/100 WBC (Bld) 8.9 % Normal . [facility] Comment on above: Performed By: #### C BC, BMP, MG #### [facility] [address] [place] [address] Neutrophils (Bld) [#/Vol] 9.3 10*3/uL High 1.8-7.7 [facility] Comment on above: Performed By: #### C BC, BMP, MG #### [facility] [address] [place] [address] Neutrophils/100 WBC (Bld) 79.2 % Normal . [facility] Comment on above: Performed By: #### C BC, BMP, MG #### [facility] [address] [place] [address] NRBC% 0.0 /100{WBC} Normal 0-0.5 [facility] Comment on above: Performed By: #### C BC, BMP, MG #### [facility] [address] Platelet mean volume (Bld) [Entitic vol] 7.1 fL Normal 6.3-10.7 [facility] Comment on above: Performed By: #### C BC, BMP, MG #### [facility] [address] Platelets (Bld) [#/Vol] 360 10*3/uL Normal 150-450 [facility] Comment on above: Performed By: #### C BC, BMP, MG #### [facility] [address] RBC (Bld) [#/Vol] 3.72 10*6/uL Normal 3.60-5.00 [facility] Comment on above: Performed By: #### C BC, BMP, MG #### [facility] [address] WBC (Bld) [#/Vol] 11.7 10*3/uL High 3.8-11.6 [facility] Comment on above: Performed By: #### C BC, BMP, MG #### [address] Fungal cultureOrdered By: Corrina Nicole on 03-11-2023 Fungus identified Cx Nom (Unsp spec) [facility] Fungus # 2 identified in Uns pecified specimen by CultureOrdered By: Errol Nicole on 03-11-2023 Fungus identified # 2 Cx Nom (Unsp spec) [facility] Fungus # 3 identified in Uns pecified specimen by CultureOrdered By: Errol Nicole on 03-11-2023 Fungus identified # 3 Cx Nom (Unsp spec) [facility] Fungus (Mycology) Cultureon 03-11-2023 Fungus (Mycology) Culture Preliminary report Final report Janine glabrata Janine tropicalis Performed at: [facility] [id number] Assistant Chief Nursing Officer: Juan Jennings PhD, Phone: [phone] Janine albicans Performed at: [address] [id number] Assistant Chief Nursing Officer: Juan Jennings PhD, Phone: [phone] PERFORMED BY: [address] [place] [address] PATHOLOGIST [employer] WAYNE WAKEFIELD M.D. [facility] Comment on above: Performed By: #### G LULS #### Point of Care testing , Fungus (Mycology) Result 2on 03-11-2023 Fungus (Mycology) Result 2 Janine tropicalis Performed at: [address] [id number] Assistant Chief Nursing Officer: Juan Jennings PhD, Phone: [phone] Janine albicans Performed at: [address] [id number] Assistant Chief Nursing Officer: Juan Jennings PhD, Phone: [phone] PERFORMED BY: [address] [place] [address] PATHOLOGIST [employer] WAYNE WAKEFIELD M.D. [facility] Comment on above: Performed By: #### G LULS #### Point of Care testing , Glucose Poct Glucometerson 0 03-11-2023 Commemt1 Glu2: Cleaned Meter [facility] Comment on above: Result Comment: PERF ORMED BY: [address] [place] [address] PATHOLOGIST [employer] WAYNE WAKEFIELD M.D. Performed By: #### G LULS #### Point of Care testing , Glucose [Mass/Vol] 121 mg/dL [facility] Comment on above: Result Comment: [facility] Glucose Reference Range is dependent on time and content of last meal. Glucose of more than 200 mg/dL in a nonstressed, ambulatory subject supports the diagnosis of Diabetes Mellitus. Performed By: #### G LULS #### Point of Care testing , Commemt1 Glu2: Cleaned Meter [facility] Comment on above: Result Comment: PERF ORMED BY: [address] [place] [address] PATHOLOGIST [employer] WAYNE WAKEFIELD M.D. Performed By: #### G LULS #### Point of Care testing , Glucose [Mass/Vol] 80 mg/dL [facility] Comment on above: Result Comment: [place] om Glucose Reference Range is dependent on time and content of last meal. Glucose of more than 200 mg/dL in a nonstressed, ambulatory subject supports the diagnosis of Diabetes Mellitus. Performed By: #### G LULS #### Point of Care testing , Glucose [Mass/Vol] 134 mg/dL Normal [facility] Comment on above: Result Comment: [place] om Glucose Reference Range is dependent on time and content of last meal. Glucose of more than 200 mg/dL in a nonstressed, ambulatory subject supports the diagnosis of Diabetes Mellitus. PERFORMED BY: [address] [place] [address] PATHOLOGIST [employer] WAYNE WAKEFIELD M.D. Performed By: #### G LULS #### Point of Care testing , Commemt1 [facility] Comment on above: Result Comment: Glu2 : WILL NOTIFY DR/RN PERFORMED BY: [address] [place] [address] PATHOLOGIST [employer] WAYNE WAKEFIELD M.D. Performed By: #### G LULS #### Point of Care testing , Glucose [Mass/Vol] 58 mg/dL Off scale low [facility] Comment on above: Result Comment: [place] om Glucose Reference Range is dependent on time and content of last meal. Glucose of more than 200 mg/dL in a nonstressed, ambulatory subject supports the diagnosis of Diabetes Mellitus. Performed By: #### G LULS #### Point of Care testing , Commemt1 Glu2: Cleaned Meter [facility] Comment on above: Result Comment: PERF ORMED BY: [address] [place] [address] PATHOLOGIST [employer] WAYNE WAKEFIELD M.D. Performed By: #### G LULS #### Point of Care testing , Glucose [Mass/Vol] 249 mg/dL Normal [facility] Comment on above: Result Comment: [place] om Glucose Reference Range is dependent on time and content of last meal. Glucose of more than 200 mg/dL in a nonstressed, ambulatory subject supports the diagnosis of Diabetes Mellitus. Performed By: #### G MARE #### Point of Care testing , Glucose [Mass/Vol] 138 mg/dL Normal [facility] Comment on above: Result Comment: [place] om Glucose Reference Range is dependent on time and content of last meal. Glucose of more than 200 mg/dL in a nonstressed, ambulatory subject supports the diagnosis of Diabetes Mellitus. PERFORMED BY: [facility] [address] [facility] [place] [address] PATHOLOGIST [employer] WAYNE WAKEFIELD M.D. Performed By: #### G MARE #### Point of Care testing , Gram Stainon 03-11-2023 Microscopic observation Gram stain Nom (Unsp spec) Gram Stain Result 1+ White Blood Cells 1+ Yeast Like Elements No Bacteria Seen Fungus Smear Results 1+ Yeast Like Elements Seen PERFORMED BY: [facility] [address] [facility] [place] [address] PATHOLOGIST [employer] WAYNE WAKEFIELD M.D. [facility] Comment on above: Performed By: #### G MARE #### Point of Care testing , [place] 03-11-2023 L ----- Specimen: [id number] Received: 03/12/23 Status: DAY St Num: [id number] Spec Type: Cytology Subm Dr: Errol Nicole MD Tissues: A BRONWASH ([facility]) Procedures: HE/2, Gross/Micro L4, Cyto Prepstain, PAPSTN Age/ Patient Sex Location Account Attending Physician Christiane Perez 48/F 3T [id number] Krunal Kelly DO SPEC NUM: [id number] RECD: 03/12/23 STATUS: DAY ST NUM: [id number] HARRY: 03/11/23-0 [facility] DR: Errol Nicole MD ENTERED: 03/12/[address] [facility] [address]: SPEC TYPE: Cytology DEPT: CNG ENTERED BY: [id number] RECV BY: [id number] ORDERED: HE/2, Gross/Micro L4, Cyto Prepstain, PAPSTN ORDERED: HE/2, Gross/Micro L4, Cyto Prepstain, PAPSTN Pathological Diagnosis Bronchial wash, cytology: - Negative for malignancy, inflammatory process - See note and pathology report [id number] Note: Smear and cell block shows many [...] [id number] Received: 03/12/23 Status: DAY St Num: [id number] Spec Type: Cytology Subm Dr: Errol Nicole MD Tissues: A BRONWASH ([facility]) Procedures: HE/2, Gross/Micro L4, Cyto Prepstain, PAPSTN Patient: Christiane Perez [id number] (Continued) Signed (signature on file) Gregory Aranda MD 03/17/23 0821 [facility] L ----- Specimen: [id number] Received: 03/11/23 Status: DAY St Num: [id number] Spec Type: Surgical Subm Dr: Errol Nicole MD Tissues: A Lung - Transbroncial Biopsy ([facility] BX) Procedures: ISIDRA SONG, PAUL/Heidi, Gross/Micro L4, GMS II ARMANI qOuendo Age/ Patient Sex Location Account Attending Physician Christiane Perez 48/F 3T [id number] Krunal Kelly DO SPEC NUM: [id number] RECD: 03/11/23 STATUS: DAY ST NUM: [id number] HARRY: 03/11/23- DR: Errol Nicole MD ENTERED: [...] negative. This case will send to the [facility] for consultation and second opinion and the result will be reported as an addendum. Specimen: [id number] Received: 03/11/23 Status: DAY St Num: [id number] Spec Type: Surgical Subm Dr: Errol Nicole MD Tissues: A Lung - Transbroncial Biopsy ([facility]) Procedures: ISIDRA - NOHEMI, PAUL/5, Gross/Micro L4, GMS II Dark, AFB Patient: ChrisChristiane Neto [id number] (Continued) Specimen: [id number] Received: 03/11/23 (Continued) Signed (signature on file) Gregory Aranda MD 03/17/23811 Specimen: [id number] Received: 03/11/23 Status: DAY St Num: [id number] Spec Type: Surgical Subm Dr: Errol Nicole MD Tissues: A Lung - Transbroncial Biopsy ([facility]) Procedures: ISIDRA - NOHEMI, PAUL/5, Gross/Micro L4, GMS II Dark, AFB Patient: Christiane Perez [id number] (Continued) Specimen: [id number] Received: 03/11/23 (Continued) Clinical Information Abscess Gross Description Received in formalin labeled with the patient's name, date of and [facility] biopsies are multiple villgeas tissues measuring 1.5 x 0.3 x 0.2 cm in aggregate. Entirely submitted in one cassette labeled A1. Microscopic Description Two H E slides reviewed. The microscopic examination confirms the diagnosis. CPT Codes 97410 Specimen: [id number] Received: 03/11/23 Status: DAY St Num: [id number] Spec Type: Surgical Subm Dr: Errol Nicole MD Tissues: A Lung - Transbroncial Biopsy ([facility]) Procedures: PAS - BALAJIN, HE/5, Gross/Micro L4, GMS II Dark, AFB Patient: ChrisChristiane Neto [id number] (Continued) Signed (signature on file) Gregory Aranda MD 03/17/23 0812 Normal [facility] Magnesiumon 03-11-2023 Magnesium [Mass/Vol] 1.9 mg/dL Normal 1.9-2.7 [facility] Comment on above: Result Comment: PERF ORMED BY: [facility] [address] [place] [address] PATHOLOGIST [employer] WYANE WAKEFIELD M.D. Performed By: #### C BC, BMP, MG #### [facility] [address] Magnesium [Mass/volume] in S kaitlin or PlasmaOrdered By: Eron Wood on 03-11-2023 Magnesium [Mass/Vol] 1.9 mg/dL 1.9-2.7 [facility] Vancomycin,Peakon 03-11-2023 Vancomycin,Peak 12.5 ug/mL Low 20.0-40.0 [facility] Comment on above: Order Comment: Comme nt ?DRAW 1 HOUR AFTER INFUSION COMPLETES Date of last dose?: [id number] Time of last dose?: 1500 Result Comment: Last dose: - PERFORMED BY: [place] [address] PATHOLOGIST [employer] WAYNE WAKEFIELD M.D. Performed By: #### G MARE #### Point of Care testing , Activated partial thrombopla stin time (aPTT) in platelet poor plasma by coagulation aOrdered By: Lavell Salazar on 03-10-2023 aPTT Coag (PPP) [Time] 40.2 s 25.1-36.5 [facility] B-Type Natriuretic Peptideon 03-10-2023 Natriuretic peptide B (Bld) [Mass/Vol] 46.0 pg/mL Normal 5-100 [facility] Comment on above: Result Comment: PERF ORMED BY: [place] [address] PATHOLOGIST [employer] WAYNE WAKEFIELD M.D. Performed By: #### C BC, BMP, MG #### [address] Bacterial blood cultureOrder ed By: Lavell Salazar on 03-10-2023 Bacteria identified Cx Nom (Bld) NO GROWTH 5 DAYS [facility] Basic Metabolic Panelon 02-14 Anion gap [Moles/Vol] 11.3 mmol/L Normal 6.0-15.0 [facility] Comment on above: Performed By: #### C BC, BMP, MG #### [facility] [address] [place] [address] Calcium [Mass/Vol] 8.9 mg/dL Normal 8.6-10.3 [facility] Comment on above: Performed By: #### C BC, BMP, MG #### [facility] [address] [place] [address] Chloride [Moles/Vol] 103 mmol/L Normal 98-107 [facility] Comment on above: Performed By: #### C BC, BMP, MG #### [place] [address] [place] CO2 [Moles/Vol] 24.2 mmol/L Normal 21.0-31.0 [facility] Comment on above: Performed By: #### C BC, BMP, MG #### [facility] [address] Creatinine [Mass/Vol] 0.70 mg/dL Normal 0.60-1.20 [facility] Comment on above: Performed By: #### C BC, BMP, MG #### [facility] [address] Creatinine Clr Calc Pharmacy 117.33 [facility] Comment on above: Result Comment: PERF ORMED BY: [place] [address] PATHOLOGIST [employer] WAYNE WAKEFIELD M.D. Performed By: #### C BC, BMP, MG #### [facility] [address] GFR/1.73 sq M.predicted MDRD (S/P/Bld) [Vol rate/Area] mL/min/{1.73_m2} [facility] Comment on above: Performed By: #### C BC, BMP, MG #### [address] Glucose [Mass/Vol] 69 mg/dL Low 70-100 [facility] Comment on above: Result Comment: [place] Glucose Reference Range is dependent on time and content of last meal. Glucose of more than 200 mg/dL in a nonstressed, ambulatory subject supports the diagnosis of Diabetes Mellitus. ADA recommended reference range Performed By: #### C BC, BMP, MG #### [facility] [address] [place] [address] [place] Potassium [Moles/Vol] 3.5 mmol/L Normal 3.5-5.1 [facility] Comment on above: Performed By: #### C BC, BMP, MG #### [facility] [address] Sodium [Moles/Vol] 135 mmol/L Low 136-145 [facility] Comment on above: Performed By: #### C BC, BMP, MG #### [facility] [address] [place] [address] Urea nitrogen [Mass/Vol] 10 mg/dL Normal 7-25 [facility] Comment on above: Performed By: #### C BC, BMP, MG #### [facility] [address] [place] [address] Bilirubin.direct [Mass/volum e] in Serum or PlasmaOrdered By: Lavell Salazar on 03-10-2023 Bilirubin.direct [Mass/Vol] 0.20 mg/dL 0.03-0.18 [facility] Blood Cultureon 03-10-2023 Bacteria identified Cx Nom (Bld) NO GROWTH 5 DAYS PERFORMED BY: [place] [address] PATHOLOGIST [employer] WAYNE WAKEFIELD M.D. [facility] Comment on above: Performed By: #### C BC, BMP, MG #### [address] Bacteria identified Cx Nom (Bld) NO GROWTH 5 DAYS PERFORMED BY: [place] [address] PATHOLOGIST [employer] WAYNE WAKEFIELD M.D. [facility] Comment on above: Performed By: #### C BC, BMP, MG #### [address] chest w conon 03-10-2023 CT chest w con [facility] [place] [address] CT Scan Report Signed Patient: Christiane Perez MR#: [id number] 2 : 1975 Acct:[id number] Age/Sex: 48 / F ADM Date: 03/10/23 Loc: ER Room: Type: [facility] ER Attending Dr: Copies to: Lavell Salazar [...] Giovanny Cleveland M.D.03/10/2023 2:30 PM Dictation Location: [place] [address] Transcribed By: [facility] 03/10/23 1430 Dictated By: Giovanny Cleveland DO 03/10/23 1421 Signed By: 03/10/23 1430 Normal [facility] Complete Blood Count Auto Di ffon 03-10-2023 Basophils (Bld) [#/Vol] 0.0 10*3/uL Normal 0.0-0.2 [facility] Comment on above: Result Comment: PERF ORMED BY: [facility] [address] [place] [address] PATHOLOGIST [employer] WAYNE WAKEFIELD M.D. Performed By: #### G LULS #### Point of Care testing , Basophils/100 WBC (Bld) 0.2 % Normal . [facility] Comment on above: Performed By: #### G MARYLS #### Point of Care testing , Eosinophils (Bld) [#/Vol] 0.2 10*3/uL Normal 0.0-0.45 [facility] Comment on above: Performed By: #### G MARYLS #### Point of Care testing , Eosinophils/100 WBC (Bld) 1.1 % Normal . [facility] Comment on above: Performed By: #### G MARYLS #### Point of Care testing , Erythrocyte distribution width (RBC) [Ratio] 15.4 % High 11.9-15.3 [facility] Comment on above: Performed By: #### G MARYLS #### Point of Care testing , Hematocrit (Bld) [Volume fraction] 38.1 % Normal 34.0-46.4 [facility] Comment on above: Performed By: #### G MARYLS #### Point of Care testing , Hemoglobin (Bld) [Mass/Vol] 12.8 g/dL Normal 11.8-15.4 [facility] Comment on above: Performed By: #### G MARYLS #### Point of Care testing , Lymphocytes (Bld) [#/Vol] 1.0 10*3/uL Normal 1.00-4.8 [facility] Comment on above: Performed By: #### G MARYLS #### Point of Care testing , Lymphocytes/100 WBC (Bld) 5.7 % Normal . [facility] Comment on above: Performed By: #### G AMRYLS #### Point of Care testing , MCH (RBC) [Entitic mass] 32.6 pg Normal 24.7-34.3 [facility] Comment on above: Performed By: #### G MARYLS #### Point of Care testing , MCV (RBC) [Entitic vol] 97.2 fL Normal 80-100 [facility] Comment on above: Performed By: #### G MARE #### Point of Care testing , Mean Corpuscular HGB Conc 33.5 g/dL Normal 32.0-35.0 [facility] Comment on above: Performed By: #### G MARE #### Point of Care testing , Monocytes (Bld) [#/Vol] 1.2 10*3/uL High 0.0-0.8 [facility] Comment on above: Performed By: #### Sophia HERNANDEZLS #### Point of Care testing , Monocytes/100 WBC (Bld) 24.68 % High 0.00-20.00 [facility] Comment on above: Result Comment: For adults in ED, MDW > 20.0 may be associated with a higher risk of sepsis during the first 12 hrs of hospital admission Performed By: #### G MARYLS #### Point of Care testing , Monocytes/100 WBC (Bld) 7.2 % Normal . [facility] Comment on above: Performed By: #### Sophia GARVEY #### Point of Care testing , Neutrophils (Bld) [#/Vol] 14.2 10*3/uL High 1.8-7.7 [facility] Comment on above: Performed By: #### Sophia GARVEY #### Point of Care testing , Neutrophils/100 WBC (Bld) 85.8 % Normal . [facility] Comment on above: Performed By: #### Sophia GARVEY #### Point of Care testing , NRBC% 0.1 /100{WBC} Normal 0-0.5 [facility] Comment on above: Performed By: #### Sophia GARVEY #### Point of Care testing , Platelet mean volume (Bld) [Entitic vol] 7.2 fL Normal 6.3-10.7 [facility] Comment on above: Performed By: #### Sophia GARVEY #### Point of Care testing , Platelets (Bld) [#/Vol] 410 10*3/uL Normal 150-450 [facility] Comment on above: Performed By: #### Sophia GARVEY #### Point of Care testing , RBC (Bld) [#/Vol] 3.92 10*6/uL Normal 3.60-5.00 [facility] Comment on above: Performed By: #### Sophia GARVEY #### Point of Care testing , WBC (Bld) [#/Vol] 16.6 10*3/uL High 3.8-11.6 [facility] Comment on above: Performed By: #### G LULS #### Point of Care testing , Creatine Kinaseon 03-10-2023 CK [Catalytic activity/Vol] 23 U/L Low 30-223 [facility] Comment on above: Performed By: #### C BC, BMP, MG #### [address] Creatine kinase [Enzymatic a ctivity/volume] in Serum or PlasmaOrdered By: Lavell Salazar on 03-10-2023 CK [Catalytic activity/Vol] 23 U/L 30-223 [facility] ECG 12 lead ECGon 03-10-2023 ECG 12 lead ECG [facility] [place] [address] [place] [address] Electrocardiograph Report Signed Patient: Christiane Perez MR#: [id number] 2 : 1975 Acct:[id number] Age/Sex: 48 / F ADM Date: 03/10/23 Loc: ER Room: Type: [facility] ER Attending Dr: Ordering Provider: Lavell Salazar DO Date of Service: 03/10/23 ECG/ECG 12 lead [...] has shortened Confirmed by Lavell Salazar DO ([id number]) on 03/10/2023 3:09:19 PM Referred By: Electronically Signed By:Lavell Salazar DO Transcribed By: MUS Signed By Lavell Salazar DO 3 1509 Normal [facility] Glucose Poct Glucometerson 0 03-10-2023 Glucose [Mass/Vol] 129 mg/dL Normal [facility] Comment on above: Result Comment: [place] Glucose Reference Range is dependent on time and content of last meal. Glucose of more than 200 mg/dL in a nonstressed, ambulatory subject supports the diagnosis of Diabetes Mellitus. PERFORMED BY: [address] [place] [address] PATHOLOGIST [employer] WAYNE WAKEFIELD M.D. Performed By: #### G LULS #### Point of Care testing , Commemt1 Glu2: Cleaned Meter Normal [facility] Comment on above: Result Comment: PERF ORMED BY: [facility] [address] [place] [address] PATHOLOGIST [employer] WAYNE WAKEFIELD M.D. Performed By: #### G LULS #### Point of Care testing , Glucose [Mass/Vol] 176 mg/dL Normal [facility] Comment on above: Result Comment: [facility] Glucose Reference Range is dependent on time and content of last meal. Glucose of more than 200 mg/dL in a nonstressed, ambulatory subject supports the diagnosis of Diabetes Mellitus. Performed By: #### G LULS #### Point of Care testing , Hepatic Panelon 03-10-2023 Albumin [Mass/Vol] 3.3 g/dL Low 3.5-5.7 [facility] Comment on above: Performed By: #### C BC, BMP, MG #### [facility] [address] [place] [address] [place] Albumin/Globulin [Mass ratio] 0.9 {ratio} [facility] Comment on above: Performed By: #### C BC, BMP, MG #### [facility] [address] [id number] [place] ALP [Catalytic activity/Vol] 110 U/L High 34-104 [facility] Comment on above: Performed By: #### C BC, BMP, MG #### [facility] [address] [id number] [place] ALT [Catalytic activity/Vol] 6 U/L Low 7-52 [facility] Comment on above: Performed By: #### C BC, BMP, MG #### [facility] [address] [place] [address] AST [Catalytic activity/Vol] 10 U/L Low 13-39 [facility] Comment on above: Performed By: #### C BC BMP, MG #### [address] Bilirubin [Mass/Vol] 0.7 mg/dL Normal 0.3-1.0 [facility] Comment on above: Performed By: #### C BC, BMP, MG #### [address] Bilirubin,Indirect 0.5 mg/dL Normal [facility] Comment on above: Performed By: #### C BC, BMP, MG #### [address] Bilirubin.indirect [Mass/Vol] 0.20 mg/dL High 0.03-0.18 [facility] Comment on above: Performed By: #### C BC BMP, MG #### [address] Globulin (S) [Mass/Vol] 3.6 g/dL Normal [facility] Comment on above: Performed By: #### C BC, BMP, MG #### [address] Protein [Mass/Vol] 6.9 g/dL Normal 6.4-8.9 [facility] Comment on above: Performed By: #### C BC BMP, MG #### [address] Laboratory - CoagulationOrde red By: Lavell Salazar on 03-10-2023 PT Coag (PPP) [Time] 14.3 s 9.0-12.9 [facility] Lactate [Moles/volume] in Se rum or PlasmaOrdered By: Lavell Salazar on 03-10-2023 Lactate [Moles/Vol] 1.2 mmol/L 0.5-2.2 [facility] Lactic Acidon 03-10-2023 Lactate [Moles/Vol] 1.2 mmol/L Normal 0.5-2.2 [facility] Comment on above: Result Comment: PERF ORMED BY: [facility] [address] [place] [address] PATHOLOGIST [employer] WAYNE WAKEFIELD M.D. Performed By: #### G LULS #### Point of Care testing , Monocyte distribution width [Entitic volume] in Blood by AutomatedOrdered By: Lavell Salazar on 03-10-2023 Monocyte distribution width Auto (Bld) [Entitic vol] 24.68 % 0.00-20.00 [facility] Comment on above: For adults in ED, MD W > 20.0 may be associated with a higher risk of sepsis during the first 12 hrs of hospital admission Natriuretic peptide B [Mass/ Vol]Ordered By: Lavell Salazar on 03-10-2023 Natriuretic peptide B (Bld) [Mass/Vol] 46.0 pg/mL 5-100 [facility] Partial Thromboplastin Timeo n 03-10-2023 aPTT Coag (Bld) [Time] 40.2 s High 25.1-36.5 [facility] Comment on above: Result Comment: PERF ORMED BY: [facility] [address] [place] [address] PATHOLOGIST [employer] WAYNE WAKEFIELD M.D. Performed By: #### G LULS #### Point of Care testing , Platelet poor plasma interna tional normalized ratio (INR) by coagulation assay (relatOrdered By: Lavell Salazar on 03-10-2023 INR Coag (PPP) [Relative time] 1.2 {INR} [facility] Comment on above: INR Therapeutic [...] Coag (PPP) [Relative time] 1.2 {INR} Normal [facility] Comment on above: Result Comment: [...] 3 - 4.5 Performed By: #### G LULS #### Point of Care testing , PT Coag (PPP) [Time] 14.3 s High 9.0-12.9 [facility] Comment on above: Performed By: #### G LULS #### Point of Care testing , Serum or plasma non-glucuron idated bilirubin measurement (mass/volume)Ordered By: Lavell Salazar on 03-10-2023 Bilirubin.indirect [Mass/Vol] 0.5 mg/dL [facility] Troponin I High Sensitivityo n 03-10-2023 Troponin I High Sensitivity 12.8 pg/mL Normal 0.0-15.0 [facility] Comment on above: Result Comment: PERF ORMED BY: [place] [address] PATHOLOGIST [employer] WAYNE WAKEFIELD M.D. Performed By: #### C BC, BMP, MG #### [address] Troponin I.cardiac [Mass/vol ume] in Serum or Plasma by Detection limit <= 0.01 ng/Ordered By: Lavell Salazar on 03-10-2023 Troponin I.cardiac DL <= 0.01 ng/mL [Mass/Vol] 12.8 pg/mL 0.0-15.0 [facility] XR chest 1V portableon 03-10 XR chest 1V portable [facility] [place] [address] XRay Report Signed Patient: Christiane Perez MR#: [id number] 2 : 1975 Acct:[id number] Age/Sex: 48 / F ADM Date: 03/10/23 [...] CT. Impression dictated by: Rodger Johnson Jr., Francoise03/10/2023 1:11 PM Dictation Location: [place] [address] Transcribed By: [facility] 03/10/23 1311 Dictated By: Rodger Johnson Jr, DO 03/10/23 1310 Signed By: 03/10/23 1311 Normal [facility] Quick Strepon 02-14-2023 S. pyogenes Org specific cx Ql (Throat) Negative Closely Other Quick Strep [employer] [facility] [employer] Other CBC AUTO DIFFon 12-01-2022 BASO # 0.0 103/ul Normal 0.0-0.1 [facility] Comment on above: Performed By: #### I NFLUAB #### [facility] [address] [place] [address] Dr. Roscoe Segal Basophils/100 WBC (Bld) 0.6 % Normal 0.2-2.0 [facility] Comment on above: Performed By: #### I NFLUAB #### [facility] [address] [place] [address] Dr. Roscoe Segal EO # 0.2 103/ul Normal 0.0-0.7 [facility] Comment on above: Performed By: #### I NFLUAB #### [facility] [address] [place] [address] Dr. Roscoe Segal Eosinophils/100 WBC (Bld) 2.4 % Normal 0.9-7.0 [facility] Comment on above: Performed By: #### I NFLUAB #### [facility] [address] [place] [address] Dr. Roscoe Segal Erythrocyte distribution width (RBC) [Ratio] 14.9 % Normal 11.0-15.0 [facility] Comment on above: Performed By: #### I NFLUAB #### [facility] [address] [place] [address] Dr. Roscoe Segal Hematocrit (Bld) [Volume fraction] 44.7 % Normal 36.0-48.0 [facility] Comment on above: Performed By: #### I NFLUAB #### [facility] [address] [place] [address] Dr. Roscoe Segal Hemoglobin (Bld) [Mass/Vol] 14.9 g/dL Normal 12.0-16.0 [facility] Comment on above: Performed By: #### I NFLUAB #### [facility] [address] [place] [address] Dr. Roscoe Segal IG # 0.02 10e3/ul Normal 0.00-0.03 [facility] Comment on above: Performed By: #### I NFLUAB #### [facility] [address] [place] [address] Dr. Roscoe Segal IG % 0.3 % Normal 0.0-0.5 [facility] Comment on above: Performed By: #### I NFLUAB #### [facility] [address] [place] [address] Dr. Roscoe Segal LYMPH # 1.6 103/ul Normal 1.2-3.8 [facility] Comment on above: Performed By: #### I NFLUAB #### [facility] [address] [place] [address] Dr. Roscoe Segal Lymphocytes/100 WBC (Bld) 26.1 % Normal 20.5-60.0 [facility] Comment on above: Performed By: #### I NFLUAB #### [facility] [address] [place] [address] Dr. Roscoe Segal MANUAL DIFF REQ NO Normal [facility] Comment on above: Performed By: #### I NFLUAB #### [facility] [address] [place] [address] Dr. Roscoe Segal MCH (RBC) [Entitic mass] 32.3 pg Normal 26.7-34.0 [facility] Comment on above: Performed By: #### I NFLUAB #### [facility] [address] [place] [address] Dr. Roscoe Segal MCHC (RBC) [Mass/Vol] 33.3 g/dL Normal 29.9-35.2 [facility] Comment on above: Performed By: #### I NFLUAB #### [facility] [address] [place] [address] Dr. Roscoe Segal MCV (RBC) [Entitic vol] 96.8 fL Normal 81.0-99.0 [facility] Comment on above: Performed By: #### I NFLUAB #### [facility] [address] [place] [address] Dr. Roscoe Segal MONO # 0.6 103/ul Normal 0.3-0.8 [facility] Comment on above: Performed By: #### I NFLUAB #### [facility] [address] [place] [address] Dr. Roscoe Segal Monocytes/100 WBC (Bld) 9.1 % Normal 1.7-12.0 [facility] Comment on above: Performed By: #### I NFLUAB #### [facility] [address] [place] [address] Dr. Roscoe Segal NEUT # 3.8 103/ul Normal 1.4-6.5 [facility] Comment on above: Performed By: #### I NFLUAB #### [facility] [address] [place] [address] Dr. Roscoe Segal Neutrophils/100 WBC (Bld) 61.5 % Normal 43.0-75.0 [facility] Comment on above: Performed By: #### I NFLUAB #### [facility] [address] [place] [address] Dr. Roscoe Segal Platelet mean volume (Bld) [Entitic vol] 8.5 fL Critically low 9.5-13.5 [facility] Comment on above: Performed By: #### I NFLUAB #### [facility] [address] [place] [address] Dr. Roscoe Segal PLT 268 103/ul Normal 150-450 [facility] Comment on above: Performed By: #### I NFLUAB #### [facility] [address] [address] [address] Roscoe Segal RBC 4.62 106/ul Normal 4.20-5.40 [facility] Comment on above: Performed By: #### I NFLUAB #### [facility] [address] [place] [address] Dr. Roscoe Segal WBC 6.3 103/ul Normal 4.0-11.0 [facility] Comment on above: Performed By: #### I NFLUAB #### [facility] [address] [place] [address] Dr. Roscoe Segal GLYCOHEMOGLOBIN A1Con 2022 ADA RECOMMENDATION SEE BELOW Normal [facility] Comment on above: Result Comment: ADA RECOMMENDED LIMIT 4.0 - 6.0 ADA THERAPEUTIC TARGET < 7.0 ACTION SUGGESTED > 7.0 Performed By: #### C BC #### [facility] [address] [place] [address] Dr. Roscoe Segal Glucose [Mass/Vol] 137 mg/dL Normal [facility] Comment on above: Performed By: #### C BC #### [facility] [address] [place] [address] Dr. Roscoe Segal HbA1c (Bld) [Mass fraction] 6.4 % Critically high 4.5-6.2 [facility] Comment on above: Performed By: #### C BC #### [facility] [address] [place] [address] Dr. Roscoe Segal LIPID PROFILEon 12-01-2022 CHOL-HDL RATIO NORM SEE BELOW Normal [facility] Comment on above: Result Comment: 3.3 - 4.4 LOW RISK 4.4 - 7.1 AVERAGE RISK 7.1 - 11.0 MODERATE RISK >11.0 HIGH RISK Performed By: #### I NFLUAB #### [facility] [address] [address] [address] Roscoe Segal Cholesterol [Mass/Vol] 116 mg/dL Normal <=200 [facility] Comment on above: Performed By: #### I NFLUAB #### [facility] [address] [place] [address] Dr. Roscoe Segal Cholesterol in HDL [Mass/Vol] 58 mg/dL Normal 40-60 [facility] Comment on above: Performed By: #### I NFLUAB #### [facility] [address] [place] [address] Dr. Roscoe Segal Cholesterol in LDL [Mass/Vol] 43.4 mg/dL Normal [facility] Comment on above: Performed By: #### I NFLUAB #### [facility] [address] [place] [address] Dr. Roscoe Segal Cholesterol.total/Chol esterol in HDL [Mass ratio] 2.0 {ratio} Normal [facility] Comment on above: Performed By: #### I NFLUAB #### [facility] [address] [place] [address] Dr. Roscoe Segal HDL NORMAL > or = 60 mg/dl - LO W CARDIOVASCULAR RISK <40 mg/dl - HIGH CARDIOVASCULAR RISK Normal [facility] Comment on above: Performed By: #### I NFLUAB #### [facility] [address] [place] [address] Dr. Roscoe Segal LDL CALC NORMAL SEE BELOW Normal [facility] Comment on above: Result Comment: <100 mg/dl OPTIMAL 100 - 129 mg/dl NEAR OR ABOVE OPTIMAL 130 - 159 mg/dl BORDERLINE HIGH 160 - 189 mg/dl HIGH >190 mg/dl VERY HIGH Performed By: #### I NFLUAB #### [facility] [address] [place] [address] Dr. Roscoe Segal Triglyceride [Mass/Vol] 73 mg/dL Normal <=150 [facility] Comment on above: Performed By: #### I NFLUAB #### [facility] [address] [address] [address] Roscoe Segal VLDL CALC 14.6 mg/dL Normal [facility] Comment on above: Performed By: #### I NFLUAB #### [facility] [address] [address] [address] Roscoe Segal PROF 14(COMP METB)on 023 Albumin [Mass/Vol] 2.9 g/dL Critically low 3.4-5.0 [facility] Comment on above: Performed By: #### P OCGLUC #### [facility] [address] [address] [address] Roscoe Segal Albumin/Globulin [Mass ratio] 0.8 {ratio} Normal [facility] Comment on above: Performed By: #### P OCGLUC #### [facility] [address] [place] [address] Dr. Roscoe Segal ALP [Catalytic activity/Vol] 114 U/L Normal 46-116 [facility] Comment on above: Performed By: #### P OCGLUC #### [facility] [address] [place] [address] Dr. Roscoe Segal ALT [Catalytic activity/Vol] 15 U/L Normal 14-59 [facility] Comment on above: Performed By: #### P OCGLUC #### [facility] [address] [place] [address] Dr. Roscoe Segal Anion gap [Moles/Vol] 14.3 mmol/L Normal [facility] Comment on above: Performed By: #### P OCGLUC #### [facility] [address] [place] [address] Dr. Roscoe Segal AST [Catalytic activity/Vol] 10 U/L Critically low 15-37 [facility] Comment on above: Performed By: #### P OCGLUC #### [facility] [address] [place] [address] Dr. Roscoe Segal Bilirubin [Mass/Vol] 0.3 mg/dL Normal 0.2-1.0 [facility] Comment on above: Performed By: #### P OCGLUC #### [facility] [address] [address] [address] Roscoe Segal Calcium [Mass/Vol] 8.7 mg/dL Normal 8.5-10.1 [facility] Comment on above: Performed By: #### P OCGLUC #### [facility] [address] [address] [address] Roscoe Segal Chloride [Moles/Vol] 104 mmol/L Normal 98-107 [facility] Comment on above: Performed By: #### P OCGLUC #### [facility] [address] [address] [address] Roscoe Segal CO2 [Moles/Vol] 23.5 mmol/L Normal 21.0-32.0 [facility] Comment on above: Performed By: #### P OCGLUC #### [facility] [address] [address] [address] Roscoe Segal Creatinine [Mass/Vol] 0.83 mg/dL Normal 0.55-1.02 [facility] Comment on above: Performed By: #### P OCGLUC #### [facility] [address] [address] [address] Roscoe Segal EGFR-AF MALAGASY >60 Normal >=60 [facility] Comment on above: Performed By: #### P OCGLUC #### [facility] [address] [address] [address] Roscoe Segal EGFR-NON AF MALAGASY >60 Normal >=60 [facility] Comment on above: Performed By: #### P OCGLUC #### [facility] [address] [address] [address] Roscoe Segal Globulin (S) [Mass/Vol] 3.5 g/dL Normal [facility] Comment on above: Performed By: #### P OCGLUC #### [facility] [address] [address] [address] Roscoe Segal Glucose [Mass/Vol] 235 mg/dL Critically high 74-106 [facility] Comment on above: Performed By: #### P OCGLUC #### [facility] [address] [address] [address] Roscoe Segal Potassium [Moles/Vol] 3.8 mmol/L Normal 3.5-5.1 [facility] Comment on above: Performed By: #### P OCGLUC #### [facility] [address] [address] [address] Roscoe Segal Protein [Mass/Vol] 6.4 g/dL Normal 6.4-8.2 [facility] Comment on above: Performed By: #### P OCGLUC #### [facility] [address] [address] [address] Roscoe Segal Sodium [Moles/Vol] 138 mmol/L Normal 136-145 [facility] Comment on above: Performed By: #### P OCGLUC #### [facility] [address] [place] [address] Dr. Roscoe Segal Urea nitrogen [Mass/Vol] 9.0 mg/dL Normal 7.0-18.0 [facility] Comment on above: Performed By: #### P OCGLUC #### [facility] [address] [place] [address] Dr. Roscoe Segal Urea nitrogen/Creatinine [Mass ratio] 10.8 mg/mg Normal [facility] Comment on above: Performed By: #### P OCGLUC #### [facility] [address] [place] [address] Dr. Roscoe Segal CARDIAC VICK ADMITon 023 CK [Catalytic activity/Vol] 43 U/L Normal 26-192 [facility] Comment on above: Performed By: #### I NFLUAB #### [facility] [address] [place] [address] Dr. Roscoe Segal CK.MB [Mass/Vol] 2.22 ng/mL Normal <=3.60 [facility] Comment on above: Performed By: #### I NFLUAB #### [facility] [address] [place] [address] Dr. Roscoe Segal GWEN 58 ng/mL Normal 9-82 [facility] Comment on above: Performed By: #### I NFLUAB #### [facility] [address] [place] [address] Dr. Roscoe Segal CBC AUTO DIFFon 09-11-2022 BASO # 0.1 103/ul Normal 0.0-0.1 [facility] Comment on above: Performed By: #### P OCGLUC #### [facility] [address] [address] [address] Roscoe Segal Basophils/100 WBC (Bld) 0.8 % Normal 0.2-2.0 [facility] Comment on above: Performed By: #### P OCGLUC #### [facility] [address] [place] [address] Dr. Roscoe Segal EO # 0.2 103/ul Normal 0.0-0.7 [facility] Comment on above: Performed By: #### P OCGLUC #### [facility] [address] [place] [address] Dr. Roscoe Segal Eosinophils/100 WBC (Bld) 2.1 % Normal 0.9-7.0 [facility] Comment on above: Performed By: #### P OCGLUC #### [facility] [address] [place] [address] Dr. Roscoe Segal Erythrocyte distribution width (RBC) [Ratio] 14.2 % Normal 11.0-15.0 [facility] Comment on above: Performed By: #### P OCGLUC #### [facility] [address] [place] [address] Dr. Roscoe Segal Hematocrit (Bld) [Volume fraction] 48.4 % Critically high 36.0-48.0 [facility] Comment on above: Performed By: #### P OCGLUC #### [facility] [address] [place] [address] Dr. Roscoe Segal Hemoglobin (Bld) [Mass/Vol] 15.0 g/dL Normal 12.0-16.0 [facility] Comment on above: Performed By: #### P OCGLUC #### [facility] [address] [place] [address] Dr. Roscoe Segal IG # 0.02 10e3/ul Normal 0.00-0.03 [facility] Comment on above: Performed By: #### P OCGLUC #### [facility] [address] [address] [address] Roscoe Segal IG % 0.2 % Normal 0.0-0.5 [facility] Comment on above: Performed By: #### P OCGLUC #### [facility] [address] [address] [address] Roscoe Segal LYMPH # 2.2 103/ul Normal 1.2-3.8 [facility] Comment on above: Performed By: #### P OCGLUC #### [facility] [address] [address] [address] Roscoe Segal Lymphocytes/100 WBC (Bld) 26.8 % Normal 20.5-60.0 [facility] Comment on above: Performed By: #### P OCGLUC #### [facility] [address] [place] [address] Dr. Roscoe Segal MANUAL DIFF REQ NO Normal [facility] Comment on above: Performed By: #### P OCGLUC #### [facility] Laboratory [address] [address] [address] Roscoe Segal MCH (RBC) [Entitic mass] 32.8 pg Normal 26.7-34.0 [facility] Comment on above: Performed By: #### P OCGLUC #### [facility] [address] [address] [address] Roscoe Segal MCHC (RBC) [Mass/Vol] 31.0 g/dL Normal 29.9-35.2 [facility] Comment on above: Performed By: #### P OCGLUC #### [facility] [address] [address] [address] Roscoe Segal MCV (RBC) [Entitic vol] 105.7 fL Critically high 81.0-99.0 [facility] Comment on above: Result Comment: Slig ht Macrocytosis Present Performed By: #### P OCGLUC #### [facility] [address] [address] [address] Roscoe Segal MONO # 0.7 103/ul Normal 0.3-0.8 [facility] Comment on above: Performed By: #### P OCGLUC #### [facility] [address] [address] [address] Roscoe Segal Monocytes/100 WBC (Bld) 8.9 % Normal 1.7-12.0 [facility] Comment on above: Performed By: #### P OCGLUC #### [facility] [address] [address] [address] Roscoe Segal NEUT # 5.1 103/ul Normal 1.4-6.5 [facility] Comment on above: Performed By: #### P OCGLUC #### [facility] [address] [address] [address] Roscoe Segal Neutrophils/100 WBC (Bld) 61.2 % Normal 43.0-75.0 [facility] Comment on above: Performed By: #### P OCGLUC #### [facility] [address] [address] [address] Roscoe Segal Platelet mean volume (Bld) [Entitic vol] 8.7 fL Critically low 9.5-13.5 [facility] Comment on above: Performed By: #### P OCGLUC #### [facility] [address] [address] [address] Roscoe Segal PLT 382 103/ul Normal 150-450 [facility] Comment on above: Performed By: #### P OCGLUC #### [facility] [address] [address] [address] Roscoe Segal RBC 4.58 106/ul Normal 4.20-5.40 [facility] Comment on above: Performed By: #### P OCGLUC #### [facility] [address] [address] [address] Roscoe Segal WBC 8.3 103/ul Normal 4.0-11.0 [facility] Comment on above: Performed By: #### P OCGLUC #### [facility] [address] [address] [address] Roscoe Segal GLUCOSE BLOODon 09-11-2022 Glucose [Mass/Vol] 39 mg/dL Critically low 74-106 [facility] Comment on above: Performed By: #### P OCGLUC #### [facility] [address] [address] [address] Roscoe Segal POINT OF CARE GLUCOSEon 08-17 Glucose [Mass/Vol] 103 mg/dL Normal 74-106 [facility] Comment on above: Performed By: #### P OCGLUC #### [facility] [address] [address] [address] Roscoe Segal Glucose [Mass/Vol] 284 mg/dL Critically high 74-106 [facility] Comment on above: Performed By: #### P OCGLUC #### [facility] [address] [address] [address] Roscoe Segal Glucose [Mass/Vol] 104 mg/dL Normal 74-106 [facility] Comment on above: Performed By: #### P OCGLUC #### [facility] [address] [address] [address] Roscoe Segal Glucose [Mass/Vol] 94 mg/dL Normal 74-106 [facility] Comment on above: Performed By: #### I NFLUAB #### [facility] [address] [address] [address] Roscoe Segal Glucose [Mass/Vol] 136 mg/dL Critically high 74-106 [facility] Comment on above: Performed By: #### P OCGLUC #### [facility] [address] [address] [address] Roscoe Segal Glucose [Mass/Vol] 181 mg/dL Critically high 74-106 [facility] Comment on above: Performed By: #### P OCGLUC #### [facility] [address] [address] [address] Roscoe Segal Glucose [Mass/Vol] 103 mg/dL Normal 74-106 [facility] Comment on above: Performed By: #### C BC #### [facility] [address] [address] [address] Roscoe Segal Glucose [Mass/Vol] 81 mg/dL Normal 74-106 [facility] Comment on above: Performed By: #### P OCGLUC #### [facility] [address] [address] [address] Roscoe Segal Glucose [Mass/Vol] 52 mg/dL Critically low 74-106 [facility] Comment on above: Performed By: #### P OCGLUC #### [facility] [address] [address] [address] Roscoe Segal Glucose [Mass/Vol] 38 mg/dL Critically low 74-106 [facility] Comment on above: Result Comment: Will Repeat Test Performed By: #### C BC #### [facility] [address] [address] [address] Roscoe Segal Glucose [Mass/Vol] 67 mg/dL Critically low 74-106 [facility] Comment on above: Performed By: #### P OCGLUC #### [facility] [address] [place] [address] Dr. Roscoe Segal PROF CHEM 8 (BAS METB)on Anion gap [Moles/Vol] 13.1 mmol/L Normal [facility] Comment on above: Performed By: #### C BC #### [facility] [address] [place] [address] Dr. Roscoe Segal Calcium [Mass/Vol] 9.0 mg/dL Normal 8.5-10.1 [facility] Comment on above: Performed By: #### C BC #### [facility] [address] [place] [address] Dr. Roscoe Segal Chloride [Moles/Vol] 106 mmol/L Normal 98-107 [facility] Comment on above: Performed By: #### C BC #### [facility] [address] [place] [address] Dr. Roscoe Segal CO2 [Moles/Vol] 25.0 mmol/L Normal 21.0-32.0 [facility] Comment on above: Performed By: #### C BC #### [facility] [address] [place] [address] Dr. Roscoe Segal Creatinine [Mass/Vol] 0.86 mg/dL Normal 0.55-1.02 [facility] Comment on above: Performed By: #### C BC #### [facility] [address] [address] [address] Roscoe Segal EGFR-AF MALAGASY >60 Normal >=60 [facility] Comment on above: Performed By: #### C BC #### [facility] [address] [address] [address] Roscoe Segal EGFR-NON AF MALAGASY >60 Normal >=60 [facility] Comment on above: Performed By: #### C BC #### [facility] [address] [address] [address] Roscoe Segal Glucose [Mass/Vol] 36 mg/dL Critically low 74-106 [facility] Comment on above: Performed By: #### C BC #### [facility] [address] [place] [address] Dr. Roscoe Segal Potassium [Moles/Vol] 4.1 mmol/L Normal 3.5-5.1 [facility] Comment on above: Performed By: #### C BC #### [facility] [address] [address] [address] Roscoe Segal Sodium [Moles/Vol] 140 mmol/L Normal 136-145 [facility] Comment on above: Performed By: #### C BC #### [facility] [address] [address] [address] Roscoe Segal Urea nitrogen [Mass/Vol] 10.0 mg/dL Normal 7.0-18.0 [facility] Comment on above: Performed By: #### C BC #### [facility] [address] [place] [address] Dr. Roscoe Segal Urea nitrogen/Creatinine [Mass ratio] 11.6 mg/mg Normal [facility] Comment on above: Performed By: #### C BC #### [facility] [address] [place] [address] Dr. Roscoe Segal TROPONIN, HIGH SENSITIVITYon 09-11-2022 HSTROP 7.0 pg/mL Normal 4.0-51.3 [facility] Comment on above: Result Comment: CUT- OFF POINTS HAVE BEEN ESTABLISHED BASED ON THE FOURTH UNIVERSAL DEFINITIONS OF MYOCARDIAL INFARCTION. THE UPPER REFERENCE LIMIT (URL) OF TROPONIN, DEFINED THE 99TH PERCENTILE OF cTnI DISTRIBUTION IN A REFERENCE POPULATION, HAS BEEN CONFIRMED THE DECISION THRESHOLD FOR NC DIAGNOSIS. Performed By: #### I NFLUAB #### [facility] [address] [place] [address] Dr. Roscoe Segal INFLUENZA A AND B AGon 07-24 [facility] SEE BELOW Normal [facility] Comment on above: Result Comment: Nega tive for Flu A protein angiten. Infection due to Flu A cannot be ruled out. Flu A angiten in the sample may be below the detection limit of the test. Performed By: #### I NFLUAB #### [facility] [address] [place] [address] Dr. Roscoe Segal INFLUBNEG SEE BELOW Normal [facility] Comment on above: Result Comment: Nega tive for Flu B protein antigen. Infection due to Flu B cannot be ruled out. Flu B antigen in the sample may be below the detection limit of the test. Performed By: #### I NFLUAB #### [facility] [address] [place] [address] Dr. Roscoe Segal INFLUENZA A AG Negative Normal NEGATIVE SEE COMMENT [facility] Comment on above: Performed By: #### I NFLUAB #### [facility] [address] [place] [address] Dr. Roscoe Segal INFLUENZA B AG Negative Normal NEGATIVE SEE COMMENT [facility] Comment on above: Performed By: #### I NFLUAB #### [facility] [address] [place] [address] Dr. Roscoe Segal INTERNAL CONTROLS Within Normal Limits Normal Wi thin Normal Limits [facility] Comment on above: Performed By: #### I NFLUAB #### [facility] [address] [place] [address] Dr. Roscoe Segal XR CHEST 1 Von [...] SHAJI LIMON Date: 2022-07-24 15:26 Normal [facility] XR CHEST 2 Von 05-25-2022 XR [...] by: GERMAINE FARRELL Date: 2022-05-25 16:25 Normal [facility] BLOOD GASES BTYon 04-27-2022 02 MODE NASAL CANNULA Normal [facility] Comment on above: Performed By: #### P OCGLUC #### [facility] [address] [address] [address] Roscoe Segal ALLENS TEST Positive [facility] Comment on above: Performed By: #### P OCGLUC #### [facility] [address] [address] [address] Roscoe Segal Base excess Calc (Bld) [Moles/Vol] -1.5000 mmol/L Normal -2.0-2.0 [facility] Comment on above: Performed By: #### P OCGLUC #### [facility] [address] [address] [address] Roscoe Segal BIPAP PRESSURE Normal [facility] Comment on above: Performed By: #### P OCGLUC #### [facility] [address] [address] [address] Roscoe Segal CPAP [facility] Comment on above: Performed By: #### P OCGLUC #### [facility] [address] [address] [address] Roscoe Segal FIO2 [facility] Comment on above: Performed By: #### P OCGLUC #### [facility] [address] [address] [address] Roscoe Segal HCO3 (Bld) [Moles/Vol] 23.2 mmol/L Normal 22.0-26.0 [facility] Comment on above: Performed By: #### P OCGLUC #### [facility] [address] [address] [address] Roscoe Segal LPM 3 [facility] Comment on above: Performed By: #### P OCGLUC #### [facility] [address] [address] [address] Roscoe Segal MINUTE VOLUME Normal [facility] Comment on above: Performed By: #### P OCGLUC #### [facility] [address] [place] [address] Dr. Roscoe Segal Oxygen (Bld) [Partial pressure] 76.4 mm[Hg] Critically low 80.0-100.0 [facility] Comment on above: Performed By: #### P OCGLUC #### [facility] [address] [place] [address] Dr. Roscoe Segal Oxygen saturation in Blood 94.8 % Critically low 95.0-100.0 [facility] Comment on above: Performed By: #### P OCGLUC #### [facility] [address] [place] [address] Dr. Roscoe Segal PCO2 39.5 mmHg Normal 35.0-45.0 [facility] Comment on above: Performed By: #### P OCGLUC #### [facility] [address] [place] [address] Dr. Roscoe Segal PEEP [facility] Comment on above: Performed By: #### P OCGLUC #### [facility] [address] [place] [address] Dr. Roscoe Segal pH (Bld) 7.384 [pH] Normal 7.350-7.45 0 [facility] Comment on above: Performed By: #### P OCGLUC #### [facility] [address] [place] [address] Dr. Roscoe Segal [facility] Comment on above: Performed By: #### P OCGLUC #### [facility] [address] [place] [address] Dr. Roscoe Segal [facility] Comment on above: Performed By: #### P OCGLUC #### [facility] [address] [place] [address] Dr. Roscoe Segal PUNCTURE SITE LR [facility] Comment on above: Performed By: #### P OCGLUC #### [facility] [address] [place] [address] Dr. Roscoe Segal [facility] Comment on above: Performed By: #### P OCGLUC #### [facility] [address] [place] [address] Dr. Roscoe Segal [facility] Comment on above: Performed By: #### P OCGLUC #### [facility] [address] [place] [address] Dr. Roscoe Segal [facility] Comment on above: Performed By: #### P OCGLUC #### [facility] [address] [place] [address] Dr. Roscoe Segal BNPon 04-27-2022 Natriuretic peptide B (Bld) [Mass/Vol] 282.0 pg/mL Normal <=450.0 [facility] Comment on above: Performed By: #### P OCGLUC #### [facility] [address] [place] [address] Dr. Roscoe Segal CBC AUTO DIFFon 04-27-2022 BASO # 0.0 103/ul Normal 0.0-0.1 [facility] Comment on above: Performed By: #### P OCGLUC #### [facility] [address] [place] [address] Dr. Roscoe Segal Basophils/100 WBC (Bld) 0.2 % Normal 0.2-2.0 [facility] Comment on above: Performed By: #### P OCGLUC #### [facility] [address] [place] [address] Dr. Roscoe Segal EO # 0.0 103/ul Normal 0.0-0.7 [facility] Comment on above: Performed By: #### P OCGLUC #### [facility] [address] [place] [address] Dr. Roscoe Segal Eosinophils/100 WBC (Bld) 0.0 % Critically low 0.9-7.0 [facility] Comment on above: Performed By: #### P OCGLUC #### [facility] [address] [place] [address] Dr. Roscoe Segal Erythrocyte distribution width (RBC) [Ratio] 14.1 % Normal 11.0-15.0 [facility] Comment on above: Performed By: #### P OCGLUC #### [facility] [address] [place] [address] Dr. Roscoe Segal Hematocrit (Bld) [Volume fraction] 39.4 % Normal 36.0-48.0 [facility] Comment on above: Performed By: #### P OCGLUC #### [facility] [address] [place] [address] Dr. Roscoe Segal Hemoglobin (Bld) [Mass/Vol] 13.0 g/dL Normal 12.0-16.0 [facility] Comment on above: Performed By: #### P OCGLUC #### [facility] [address] [place] [address] Dr. Roscoe Segal IG # 0.14 10e3/ul Critically high 0.00-0.03 [facility] Comment on above: Performed By: #### P OCGLUC #### [facility] [address] [place] [address] Dr. Roscoe Segal IG % 1.0 % Critically high 0.0-0.5 [facility] Comment on above: Performed By: #### P OCGLUC #### [facility] [address] [place] [address] Dr. Roscoe Segal LYMPH # 1.4 103/ul Normal 1.2-3.8 [facility] Comment on above: Performed By: #### P OCGLUC #### [facility] [address] [place] [address] Dr. Roscoe Segal Lymphocytes/100 WBC (Bld) 9.5 % Critically low 20.5-60.0 [facility] Comment on above: Performed By: #### P OCGLUC #### [facility] [address] [place] [address] Dr. Roscoe Segal MANUAL DIFF REQ NO Normal [facility] Comment on above: Performed By: #### P OCGLUC #### [facility] [address] [place] [address] Dr. Roscoe Segal MCH (RBC) [Entitic mass] 32.3 pg Normal 26.7-34.0 [facility] Comment on above: Performed By: #### P OCGLUC #### [facility] [address] [place] [address] Dr. Roscoe Segal MCHC (RBC) [Mass/Vol] 33.0 g/dL Normal 29.9-35.2 [facility] Comment on above: Performed By: #### P OCGLUC #### [facility] [address] [place] [address] Dr. Roscoe Segal MCV (RBC) [Entitic vol] 98.0 fL Normal 81.0-99.0 [facility] Comment on above: Performed By: #### P OCGLUC #### [facility] [address] [place] [address] Dr. Roscoe Segal MONO # 0.6 103/ul Normal 0.3-0.8 [facility] Comment on above: Performed By: #### P OCGLUC #### [facility] [address] [place] [address] Dr. Roscoe Segal Monocytes/100 WBC (Bld) 4.3 % Normal 1.7-12.0 [facility] Comment on above: Performed By: #### P OCGLUC #### [facility] [address] [place] [address] Dr. Roscoe Segal NEUT # 12.1 103/ul Critically high 1.4-6.5 [facility] Comment on above: Performed By: #### P OCGLUC #### [facility] [address] [place] [address] Dr. Roscoe Segal Neutrophils/100 WBC (Bld) 85.0 % Critically high 43.0-75.0 [facility] Comment on above: Performed By: #### P OCGLUC #### [facility] [address] [place] [address] Dr. Roscoe Segal Platelet mean volume (Bld) [Entitic vol] 8.9 fL Critically low 9.5-13.5 [facility] Comment on above: Performed By: #### P OCGLUC #### [facility] [address] [address] [address] Roscoe Segal PLT 362 103/ul Normal 150-450 [facility] Comment on above: Performed By: #### P OCGLUC #### [facility] [address] [place] [address] Dr. Roscoe Segal RBC 4.02 106/ul Critically low 4.20-5.40 [facility] Comment on above: Performed By: #### P OCGLUC #### [facility] [address] [place] [address] Dr. Roscoe Segal WBC 14.2 103/ul Critically high 4.0-11.0 [facility] Comment on above: Performed By: #### P OCGLUC #### [facility] [address] [place] [address] Dr. Roscoe Segal D-DIMERon 04-27-2022 D-DIMER 0.29 mg/L FEU Normal <=0.59 [facility] Comment on above: Performed By: #### D DIM #### [facility] [address] [place] [address] Dr. Roscoe Segal D-DIMER COMMENTS SEE BELOW Normal [facility] Comment on above: Result Comment: Incr eases [...] hospitalization. Performed By: #### D DIM #### [facility] [address] [address] [address] Roscoe Segal LACTATE/LACTIC ACIDon 2021 Lactate [Moles/Vol] 2.1 mmol/L Critically high 0.4-1.9 [facility] Comment on above: Performed By: #### P OCGLUC #### [facility] [address] [address] [address] Roscoe Segal PROF 14(COMP METB)on 022 Albumin [Mass/Vol] 3.0 g/dL Critically low 3.4-5.0 [facility] Comment on above: Performed By: #### P OCGLUC #### [facility] [address] [place] [address] Dr. Roscoe Segal Albumin/Globulin [Mass ratio] 0.8 {ratio} Normal [facility] Comment on above: Performed By: #### P OCGLUC #### [facility] [address] [place] [address] Dr. Roscoe Segal ALP [Catalytic activity/Vol] 77 U/L Normal 46-116 [facility] Comment on above: Performed By: #### P OCGLUC #### [facility] [address] [place] [address] Dr. Roscoe Segal ALT [Catalytic activity/Vol] 14 U/L Normal 14-59 [facility] Comment on above: Performed By: #### P OCGLUC #### [facility] [address] [place] [address] Dr. Roscoe Segal Anion gap [Moles/Vol] 13.4 mmol/L Normal [facility] Comment on above: Performed By: #### P OCGLUC #### [facility] [address] [place] [address] Dr. Roscoe Segal AST [Catalytic activity/Vol] 7 U/L Critically low 15-37 [facility] Comment on above: Performed By: #### P OCGLUC #### [facility] [address] [place] [address] Dr. Roscoe Segal Bilirubin [Mass/Vol] 0.1 mg/dL Critically low 0.2-1.0 [facility] Comment on above: Performed By: #### P OCGLUC #### [facility] [address] [address] [address] Roscoe Segal Calcium [Mass/Vol] 8.9 mg/dL Normal 8.5-10.1 [facility] Comment on above: Performed By: #### P OCGLUC #### [facility] [address] [address] [address] Roscoe Segal Chloride [Moles/Vol] 105 mmol/L Normal 98-107 [facility] Comment on above: Performed By: #### P OCGLUC #### [facility] [address] [address] [address] Roscoe Segal CO2 [Moles/Vol] 21.8 mmol/L Normal 21.0-32.0 [facility] Comment on above: Performed By: #### P OCGLUC #### [facility] [address] [address] [address] Roscoe Segal Creatinine [Mass/Vol] 0.94 mg/dL Normal 0.55-1.02 [facility] Comment on above: Performed By: #### P OCGLUC #### [facility] [address] [place] [address] Dr. Roscoe Segal EGFR-AF MALAGASY >60 Normal >=60 [facility] Comment on above: Performed By: #### P OCGLUC #### [facility] [address] [address] [address] Roscoe Segal EGFR-NON AF MALAGASY >60 Normal >=60 [facility] Comment on above: Performed By: #### P OCGLUC #### [facility] [address] [address] [address] Roscoe Segal Globulin (S) [Mass/Vol] 3.7 g/dL Normal [facility] Comment on above: Performed By: #### P OCGLUC #### [facility] [address] [address] [address] Roscoe Segal Glucose [Mass/Vol] 283 mg/dL Critically high 74-106 [facility] Comment on above: Performed By: #### P OCGLUC #### [facility] [address] [address] [address] Roscoe Segal Potassium [Moles/Vol] 4.2 mmol/L Normal 3.5-5.1 [facility] Comment on above: Performed By: #### P OCGLUC #### [facility] [address] [address] [address] Roscoe Segal Protein [Mass/Vol] 6.7 g/dL Normal 6.4-8.2 [facility] Comment on above: Performed By: #### P OCGLUC #### [facility] [address] [address] [address] Roscoe Segal Sodium [Moles/Vol] 136 mmol/L Normal 136-145 [facility] Comment on above: Performed By: #### P OCGLUC #### [facility] [address] [address] [address] Roscoe Segal Urea nitrogen [Mass/Vol] 16.0 mg/dL Normal 7.0-18.0 [facility] Comment on above: Performed By: #### P OCGLUC #### [facility] [address] [address] [address] Roscoe Segal Urea nitrogen/Creatinine [Mass ratio] 17.0 mg/mg Normal [facility] Comment on above: Performed By: #### P OCGLUC #### [facility] [address] [address] [address] Roscoe Segal TROPONIN, HIGH SENSITIVITYon 04-27-2022 HSTROP 7.2 pg/mL Normal 4.0-51.3 [facility] Comment on above: Result Comment: CUT- OFF POINTS HAVE BEEN ESTABLISHED BASED ON THE FOURTH UNIVERSAL DEFINITIONS OF MYOCARDIAL INFARCTION. THE UPPER REFERENCE LIMIT (URL) OF TROPONIN, DEFINED THE 99TH PERCENTILE OF cTnI DISTRIBUTION IN A REFERENCE POPULATION, HAS BEEN CONFIRMED THE DECISION THRESHOLD FOR NC DIAGNOSIS. Performed By: #### P OCGLUC #### [facility] [address] [address] [address] Roscoe Segal XR CHEST 1 Von [...] GERMAINE FARRELL Date: 2022-04-27 17:20 Normal [facility] CBC AUTO DIFFon 04-25-2022 BASO # 0.1 103/ul Normal 0.0-0.1 [facility] Comment on above: Performed By: #### P OCGLUC #### [facility] [address] [place] [address] Dr. Roscoe Segal Basophils/100 WBC (Bld) 0.4 % Normal 0.2-2.0 [facility] Comment on above: Performed By: #### P OCGLUC #### [facility] [address] [address] [address] Roscoe Segal EO # 0.1 103/ul Normal 0.0-0.7 [facility] Comment on above: Performed By: #### P OCGLUC #### [facility] [address] [address] [address] Roscoe Segal Eosinophils/100 WBC (Bld) 0.7 % Critically low 0.9-7.0 [facility] Comment on above: Performed By: #### P OCGLUC #### [facility] [address] [address] [address] Roscoe Segal Erythrocyte distribution width (RBC) [Ratio] 14.1 % Normal 11.0-15.0 [facility] Comment on above: Performed By: #### P OCGLUC #### [facility] [address] [place] [address] Dr. Roscoe Segal Hematocrit (Bld) [Volume fraction] 43.8 % Normal 36.0-48.0 [facility] Comment on above: Performed By: #### P OCGLUC #### [facility] [address] [address] [address] Roscoe Segal Hemoglobin (Bld) [Mass/Vol] 14.6 g/dL Normal 12.0-16.0 [facility] Comment on above: Performed By: #### P OCGLUC #### [facility] [address] [address] [address] Roscoe Segal IG # 0.09 10e3/ul Critically high 0.00-0.03 [facility] Comment on above: Performed By: #### P OCGLUC #### [facility] [address] [address] [address] Roscoe Segal IG % 0.6 % Critically high 0.0-0.5 [facility] Comment on above: Performed By: #### P OCGLUC #### [facility] [address] [address] [address] Roscoe Segal LYMPH # 1.5 103/ul Normal 1.2-3.8 [facility] Comment on above: Performed By: #### P OCGLUC #### [facility] [address] [address] [address] Roscoe Segal Lymphocytes/100 WBC (Bld) 9.9 % Critically low 20.5-60.0 [facility] Comment on above: Performed By: #### P OCGLUC #### [facility] [address] [address] [address] Roscoe Segal MANUAL DIFF REQ NO Normal [facility] Comment on above: Performed By: #### P OCGLUC #### [facility] [address] [address] [address] Roscoe Segal MCH (RBC) [Entitic mass] 31.8 pg Normal 26.7-34.0 [facility] Comment on above: Performed By: #### P OCGLUC #### [facility] [address] [address] [address] Roscoe Segal MCHC (RBC) [Mass/Vol] 33.3 g/dL Normal 29.9-35.2 [facility] Comment on above: Performed By: #### P OCGLUC #### [facility] [address] [address] [address] Roscoe Segal MCV (RBC) [Entitic vol] 95.4 fL Normal 81.0-99.0 [facility] Comment on above: Performed By: #### P OCGLUC #### [facility] [address] [address] [address] Roscoe Segal MONO # 1.2 103/ul Critically high 0.3-0.8 [facility] Comment on above: Performed By: #### P OCGLUC #### [facility] [address] [address] [address] Roscoe Segal Monocytes/100 WBC (Bld) 8.0 % Normal 1.7-12.0 [facility] Comment on above: Performed By: #### P OCGLUC #### [facility] [address] [address] [address] Roscoe Segal NEUT # 11.8 103/ul Critically high 1.4-6.5 [facility] Comment on above: Performed By: #### P OCGLUC #### [facility] [address] [address] [address] Roscoe Segal Neutrophils/100 WBC (Bld) 80.4 % Critically high 43.0-75.0 [facility] Comment on above: Performed By: #### P OCGLUC #### [facility] [address] [address] [address] Roscoe Segal Platelet mean volume (Bld) [Entitic vol] 8.9 fL Critically low 9.5-13.5 [facility] Comment on above: Performed By: #### P OCGLUC #### [facility] [address] [address] [address] Roscoe Segal PLT 357 103/ul Normal 150-450 [facility] Comment on above: Performed By: #### P OCGLUC #### [facility] [address] [address] [address] Roscoe Segal RBC 4.59 106/ul Normal 4.20-5.40 [facility] Comment on above: Performed By: #### P OCGLUC #### [facility] [address] [place] [address] Dr. Roscoe Segal WBC 14.7 103/ul Critically high 4.0-11.0 [facility] Comment on above: Performed By: #### P OCGLUC #### [facility] [address] [place] [address] Dr. Roscoe Segal Covid-19 PCR ([facility])on 04-16 SARS-CoV-2 (COVID-19) RNA SOILA+probe Ql (Unsp spec) Not detected Normal NOT DETECTED [facility] Comment on above: Result Comment: When [...] for this test is supported by the [employer] of Health and Human Service's declaration that [...] used). Performed By: #### P OCGLUC #### [facility] [address] [place] [address] Dr. Roscoe Segal PROF CHEM 8 (BAS METB)on Anion gap [Moles/Vol] 16.1 mmol/L Normal [facility] Comment on above: Performed By: #### B MP #### [facility] [address] [place] [address] Dr. Roscoe Segal Calcium [Mass/Vol] 9.2 mg/dL Normal 8.5-10.1 [facility] Comment on above: Performed By: #### B MP #### [facility] [address] [place], [place] [id number] Dr. Roscoe Segal Chloride [Moles/Vol] 104 mmol/L Normal 98-107 [facility] Comment on above: Performed By: #### B MP #### [facility] [address] [address] [address] Roscoe Segal CO2 [Moles/Vol] 22.5 mmol/L Normal 21.0-32.0 [facility] Comment on above: Performed By: #### B MP #### [facility] [address] [place] [address] Dr. Roscoe Segal Creatinine [Mass/Vol] 0.93 mg/dL Normal 0.55-1.02 [facility] Comment on above: Performed By: #### B MP #### [facility] [address] [place] [address] Dr. Roscoe Segal EGFR-AF MALAGASY >60 Normal >=60 [facility] Comment on above: Performed By: #### B MP #### [facility] [address] [place] [address] Dr. Roscoe Segal EGFR-NON AF MALAGASY >60 Normal >=60 [facility] Comment on above: Performed By: #### B MP #### [facility] [address] [place] [address] Dr. Roscoe Segal Glucose [Mass/Vol] 227 mg/dL Critically high 74-106 [facility] Comment on above: Performed By: #### B MP #### [facility] [address] [place] [address] Dr. Roscoe Segal Potassium [Moles/Vol] 3.6 mmol/L Normal 3.5-5.1 [facility] Comment on above: Performed By: #### B MP #### [facility] [address] [address] [address] Roscoe Segal Sodium [Moles/Vol] 139 mmol/L Normal 136-145 [facility] Comment on above: Performed By: #### B MP #### [facility] [address] [place] [address] Dr. Roscoe Segal Urea nitrogen [Mass/Vol] 9.0 mg/dL Normal 7.0-18.0 [facility] Comment on above: Performed By: #### B MP #### [facility] [address] [address] [address] Roscoe Segal Urea nitrogen/Creatinine [Mass ratio] 9.7 mg/mg Normal [facility] Comment on above: Performed By: #### B MP #### [facility] [address] [address] [address] Roscoe Segal XR CHEST 1 Von [...] GERMAINE FARRELL Date: 2022-04-25 09:41 Normal [facility] GLYCOHEMOGLOBIN A1Con 2021 ADA RECOMMENDATION SEE BELOW Normal [facility] Comment on above: Result Comment: ADA RECOMMENDED LIMIT 4.0 - 6.0 ADA THERAPEUTIC TARGET < 7.0 ACTION SUGGESTED > 7.0 Performed By: #### P OCGLUC #### [facility] [address] [address] [address] Roscoe Segal Glucose [Mass/Vol] 128 mg/dL Normal [facility] Comment on above: Performed By: #### P OCGLUC #### [facility] [address] [address] [address] Roscoe Seagl HbA1c (Bld) [Mass fraction] 6.1 % Normal 4.5-6.2 [facility] Comment on above: Performed By: #### P OCGLUC #### [facility] [address] [address] [address] Roscoe Segal LIPID PROFILEon 04-10-2022 CHOL-HDL RATIO NORM SEE BELOW Normal [facility] Comment on above: Result Comment: 3.3 - 4.4 LOW RISK 4.4 - 7.1 AVERAGE RISK 7.1 - 11.0 MODERATE RISK >11.0 HIGH RISK Performed By: #### L IPID #### [facility] [address] [address] [address] Roscoe Segal Cholesterol [Mass/Vol] 125 mg/dL Normal <=200 Th [facility] Comment on above: Performed By: #### L IPID #### [facility] [address] [address] [address] Roscoe Segal Cholesterol in HDL [Mass/Vol] 69 mg/dL Critically high 40-60 [facility] Comment on above: Performed By: #### L IPID #### [facility] [address] [address] [address] Roscoe Segal Cholesterol in LDL [Mass/Vol] 31.8 mg/dL Normal [facility] Comment on above: Performed By: #### L IPID #### [facility] [address] [address] [address] Roscoe Segal Cholesterol.total/Chol esterol in HDL [Mass ratio] 1.8 {ratio} Normal [facility] Comment on above: Performed By: #### L IPID #### [facility] [address] [address] [address] Roscoe Segal HDL NORMAL > or = 60 mg/dl - LO W CARDIOVASCULAR RISK <40 mg/dl - HIGH CARDIOVASCULAR RISK Normal [facility] Comment on above: Performed By: #### L IPID #### [facility] [address] [address] [address] Roscoe Segal LDL CALC NORMAL SEE BELOW Normal [facility] Comment on above: Result Comment: <100 mg/dl OPTIMAL 100 - 129 mg/dl NEAR OR ABOVE OPTIMAL 130 - 159 mg/dl BORDERLINE HIGH 160 - 189 mg/dl HIGH >190 mg/dl VERY HIGH Performed By: #### L IPID #### [facility] [address] [address] [address] Roscoe Segal Triglyceride [Mass/Vol] 121 mg/dL Normal <=150 [facility] Comment on above: Performed By: #### L IPID #### [facility] [address] [address] [address] Roscoe Segal VLDL CALC 24.2 mg/dL Normal [facility] Comment on above: Performed By: #### L IPID #### [facility] [address] [place], [place] [address] Dr. Roscoe Segal Covid-19 PCR ([facility])on 03-16 SARS-CoV-2 (COVID-19) RNA SOILA+probe Ql (Unsp spec) Not detected Normal NOT DETECTED [facility] Comment on above: Result Comment: This test is not yet approved or cleared by the [place] FDA. When there are no FDA-approved or cleared tests available, and other criteria are met, FDA can make tests available under an emergency access mechanism called an Emergency Use Authorization (EUA). The EUA for this test is supported by the [place] of Health and Human Service's (HHS's) declaration [...] SARS-CoV-2. Performed By: #### P OCGLUC #### [facility] [address] [place], [place] [address] Dr. Roscoe Segal XR CHEST 1 Von [...] YASMIN HUERTAS Date: 2022-03-29 15:39 Normal [facility] CBC AUTO DIFFon 03-21-2022 BASO # 0.1 103/ul Normal 0.0-0.1 [facility] Comment on above: Performed By: #### C BC #### [facility] [address] [address] [address] Roscoe Segal Basophils/100 WBC (Bld) 0.6 % Normal 0.2-2.0 [facility] Comment on above: Performed By: #### C BC #### [facility] [address] [place] [address] Dr. Roscoe Segal EO # 0.3 103/ul Normal 0.0-0.7 [facility] Comment on above: Performed By: #### C BC #### [facility] [address] [place] [address] Dr. Roscoe Segal Eosinophils/100 WBC (Bld) 2.1 % Normal 0.9-7.0 [facility] Comment on above: Performed By: #### C BC #### [facility] [address] [place] [address] Dr. Roscoe Segal Erythrocyte distribution width (RBC) [Ratio] 14.7 % Normal 11.0-15.0 [facility] Comment on above: Performed By: #### C BC #### [facility] [address] [place] [address] Dr. Roscoe Segal Hematocrit (Bld) [Volume fraction] 47.1 % Normal 36.0-48.0 [facility] Comment on above: Performed By: #### C BC #### [facility] [address] [place] [address] Dr. Roscoe Segal Hemoglobin (Bld) [Mass/Vol] 15.6 g/dL Normal 12.0-16.0 [facility] Comment on above: Performed By: #### C BC #### [facility] [address] [address] [address] Roscoe Segal IG # 0.05 10e3/ul Critically high 0.00-0.03 [facility] Comment on above: Performed By: #### C BC #### [facility] [address] [place] [address] Dr. Roscoe Segal IG % 0.4 % Normal 0.0-0.5 [facility] Comment on above: Performed By: #### C BC #### [facility] [address] [place] [address] Dr. Roscoe Segal LYMPH # 3.9 103/ul Critically high 1.2-3.8 [facility] Comment on above: Performed By: #### C BC #### [facility] [address] [place] [address] Dr. Roscoe Segal Lymphocytes/100 WBC (Bld) 32.1 % Normal 20.5-60.0 [facility] Comment on above: Performed By: #### C BC #### [facility] [address] [place] [address] Dr. Roscoe Segal MANUAL DIFF REQ NO Normal [facility] Comment on above: Performed By: #### C BC #### [facility] [address] [place] [address] Dr. Roscoe Segal MCH (RBC) [Entitic mass] 31.9 pg Normal 26.7-34.0 [facility] Comment on above: Performed By: #### C BC #### [facility] [address] [place] [address] Dr. Roscoe Segal MCHC (RBC) [Mass/Vol] 33.1 g/dL Normal 29.9-35.2 [facility] Comment on above: Performed By: #### C BC #### [facility] [address] [place] [address] Dr. Roscoe Segal MCV (RBC) [Entitic vol] 96.3 fL Normal 81.0-99.0 [facility] Comment on above: Performed By: #### C BC #### [facility] [address] [id number] Roscoe Segal MONO # 0.9 103/ul Critically high 0.3-0.8 [facility] Comment on above: Performed By: #### C BC #### [facility] [address] [address] [address] Roscoe Segal Monocytes/100 WBC (Bld) 7.4 % Normal 1.7-12.0 [facility] Comment on above: Performed By: #### C BC #### [facility] [address] [address] [address] Roscoe Segal NEUT # 7.0 103/ul Critically high 1.4-6.5 [facility] Comment on above: Performed By: #### C BC #### [facility] [address] [address] [address] Roscoe Segal Neutrophils/100 WBC (Bld) 57.4 % Normal 43.0-75.0 [facility] Comment on above: Performed By: #### C BC #### [facility] [address] [address] [address] Roscoe Segal Platelet mean volume (Bld) [Entitic vol] 8.8 fL Critically low 9.5-13.5 [facility] Comment on above: Performed By: #### C BC #### [facility] [address] [address] [address] Roscoe Segal PLT 417 103/ul Normal 150-450 [facility] Comment on above: Performed By: #### C BC #### [facility] [address] [address] [address] Rosceo Segal RBC 4.89 106/ul Normal 4.20-5.40 [facility] Comment on above: Performed By: #### C BC #### [facility] [address] [address] [address] Roscoe Segal WBC 12.1 103/ul Critically high 4.0-11.0 [facility] Comment on above: Performed By: #### C BC #### [facility] [address] [address] [address] Roscoe Segal Covid-19 PCR ([facility])on SARS-CoV-2 (COVID-19) RNA SOILA+probe Ql (Unsp spec) Not detected Normal NOT DETECTED [facility] Comment on above: Result Comment: [...] for this test is supported by the [employer] of Health and Human Service's declaration that [...] used). Performed By: #### P OCGLUC #### [facility] [address] [place] [address] Dr. Roscoe Segal PROF CHEM 8 (BAS METB)on Anion gap [Moles/Vol] 13.4 mmol/L Normal [facility] Comment on above: Performed By: #### I NFLUAB #### [facility] [address] [place] [address] Dr. Roscoe Segal Calcium [Mass/Vol] 9.2 mg/dL Normal 8.5-10.1 [facility] Comment on above: Performed By: #### I NFLUAB #### [facility] [address] [place] [address] Dr. Roscoe Segal Chloride [Moles/Vol] 105 mmol/L Normal 98-107 [facility] Comment on above: Performed By: #### I NFLUAB #### [facility] [address] [place] [address] Dr. Roscoe Segal CO2 [Moles/Vol] 23.9 mmol/L Normal 21.0-32.0 [facility] Comment on above: Performed By: #### I NFLUAB #### [facility] [address] [address] [address] Roscoe Segal Creatinine [Mass/Vol] 0.93 mg/dL Normal 0.55-1.02 [facility] Comment on above: Performed By: #### I NFLUAB #### [facility] [address] [address] [address] Roscoe Segal EGFR-AF MALAGASY >60 Normal >=60 [facility] Comment on above: Performed By: #### I NFLUAB #### [facility] [address] [address] [address] Roscoe Segal EGFR-NON AF MALAGASY >60 Normal >=60 [facility] Comment on above: Performed By: #### I NFLUAB #### [facility] [address] [address] [address] Roscoe Segal Glucose [Mass/Vol] 141 mg/dL Critically high 74-106 [facility] Comment on above: Performed By: #### I NFLUAB #### [facility] [address] [address] [address] Roscoe Segal Potassium [Moles/Vol] 4.3 mmol/L Normal 3.5-5.1 [facility] Comment on above: Performed By: #### I NFLUAB #### [facility] [address] [address] [address] Roscoe Segal Sodium [Moles/Vol] 138 mmol/L Normal 136-145 [facility] Comment on above: Performed By: #### I NFLUAB #### [facility] [address] [address] [address] Roscoe Segal Urea nitrogen [Mass/Vol] 9.0 mg/dL Normal 7.0-18.0 [facility] Comment on above: Performed By: #### I NFLUAB #### [facility] [address] [address] [address] Roscoe Segal Urea nitrogen/Creatinine [Mass ratio] 9.7 mg/mg Normal [facility] Comment on above: Performed By: #### I NFLUAB #### [facility] [address] [address] [address] Roscoe Segal CARDIAC VICK 3-6on 2 CK [Catalytic activity/Vol] 60 U/L Normal 26-192 [facility] Comment on above: Performed By: #### P OCGLUC #### [facility] [address] [address] [address] Roscoe Segal CK.MB [Mass/Vol] 1.84 ng/mL Normal <=3.60 [facility] Comment on above: Performed By: #### P OCGLUC #### [facility] [address] [place] [address] Dr. Roscoe Segal HSTROP 8.3 pg/mL Normal 4.0-51.3 [facility] Comment on above: Result Comment: CUT- OFF POINTS HAVE BEEN ESTABLISHED BASED ON THE FOURTH UNIVERSAL DEFINITIONS OF MYOCARDIAL INFARCTION. THE UPPER REFERENCE LIMIT (URL) OF TROPONIN, DEFINED THE 99TH PERCENTILE OF cTnI DISTRIBUTION IN A REFERENCE POPULATION, HAS BEEN CONFIRMED THE DECISION THRESHOLD FOR NC DIAGNOSIS. Performed By: #### P OCGLUC #### [facility] [address] [place] [address] Dr. Roscoe Segal CK [Catalytic activity/Vol] 57 U/L Normal 26-192 [facility] Comment on above: Performed By: #### I NFLUAB #### [facility] [address] [place] [address] Dr. Roscoe Segal CK.MB [Mass/Vol] 1.82 ng/mL Normal <=3.60 [facility] Comment on above: Performed By: #### I NFLUAB #### [facility] [address] [place] [address] Dr. Roscoe Segal HSTROP 8.1 pg/mL Normal 4.0-51.3 [facility] Comment on above: Result Comment: CUT- OFF POINTS HAVE BEEN ESTABLISHED BASED ON THE FOURTH UNIVERSAL DEFINITIONS OF MYOCARDIAL INFARCTION. THE UPPER REFERENCE LIMIT (URL) OF TROPONIN, DEFINED THE 99TH PERCENTILE OF cTnI DISTRIBUTION IN A REFERENCE POPULATION, HAS BEEN CONFIRMED THE DECISION THRESHOLD FOR NC DIAGNOSIS. Performed By: #### I NFLUAB #### [facility] [address] [address] [address] Roscoe Segal CARDIAC VICK ADMITon 022 CK [Catalytic activity/Vol] 64 U/L Normal 26-192 [facility] Comment on above: Performed By: #### P OCGLUC #### [facility] [address] [address] [address] Roscoe Segal CK.MB [Mass/Vol] 2.19 ng/mL Normal <=3.60 [facility] Comment on above: Performed By: #### P OCGLUC #### [facility] [address] [place] [address] Dr. Roscoe Segal HSTROP 7.6 pg/mL Normal 4.0-51.3 [facility] Comment on above: Result Comment: CUT- OFF POINTS HAVE BEEN ESTABLISHED BASED ON THE FOURTH UNIVERSAL DEFINITIONS OF MYOCARDIAL INFARCTION. THE UPPER REFERENCE LIMIT (URL) OF TROPONIN, DEFINED THE 99TH PERCENTILE OF cTnI DISTRIBUTION IN A REFERENCE POPULATION, HAS BEEN CONFIRMED THE DECISION THRESHOLD FOR NC DIAGNOSIS. Performed By: #### P OCGLUC #### [facility] [address] [place] [address] Dr. Roscoe Segal GWEN 50 ng/mL Normal 9-82 [facility] Comment on above: Performed By: #### P OCGLUC #### [facility] [facility] [address] [place] [address] Dr. Roscoe Segal CBC AUTO DIFFon 03-03-2022 BASO # 0.1 103/ul Normal 0.0-0.1 [facility] Comment on above: Performed By: #### P OCGLUC #### [facility] [address] [place] [address] Dr. Roscoe Segal Basophils/100 WBC (Bld) 0.7 % Normal 0.2-2.0 [facility] Comment on above: Performed By: #### P OCGLUC #### [facility] [address] [place] [address] Dr. Roscoe Segal EO # 0.2 103/ul Normal 0.0-0.7 [facility] Comment on above: Performed By: #### P OCGLUC #### [facility] [address] [address] [address] Roscoe Segal Eosinophils/100 WBC (Bld) 1.3 % Normal 0.9-7.0 [facility] Comment on above: Performed By: #### P OCGLUC #### [facility] [address] [place] [address] Dr. Roscoe Segal Erythrocyte distribution width (RBC) [Ratio] 14.5 % Normal 11.0-15.0 [facility] Comment on above: Performed By: #### P OCGLUC #### [facility] [address] [place] [address] Dr. Roscoe Segal Hematocrit (Bld) [Volume fraction] 44.8 % Normal 36.0-48.0 [facility] Comment on above: Performed By: #### P OCGLUC #### [facility] [address] [place] [address] Dr. Roscoe Segal Hemoglobin (Bld) [Mass/Vol] 15.0 g/dL Normal 12.0-16.0 [facility] Comment on above: Performed By: #### P OCGLUC #### [facility] [address] [place] [address] Dr. Roscoe Segal IG # 0.07 10e3/ul Critically high 0.00-0.03 [facility] Comment on above: Performed By: #### P OCGLUC #### [facility] [address] [place] [address] Dr. Roscoe Segal IG % 0.6 % Critically high 0.0-0.5 [facility] Comment on above: Performed By: #### P OCGLUC #### [facility] [address] [place] [address] Dr. Roscoe Segal LYMPH # 4.7 103/ul Critically high 1.2-3.8 [facility] Comment on above: Performed By: #### P OCGLUC #### [facility] [address] [place] [address] Dr. Roscoe Segal Lymphocytes/100 WBC (Bld) 38.7 % Normal 20.5-60.0 [facility] Comment on above: Performed By: #### P OCGLUC #### [facility] [address] [address] [address] Roscoe Segal MANUAL DIFF REQ NO Normal [facility] Comment on above: Performed By: #### P OCGLUC #### [facility] [address] [address] [address] Roscoe Segal MCH (RBC) [Entitic mass] 32.1 pg Normal 26.7-34.0 [facility] Comment on above: Performed By: #### P OCGLUC #### [facility] [address] [address] [address] Roscoe Segal MCHC (RBC) [Mass/Vol] 33.5 g/dL Normal 29.9-35.2 [facility] Comment on above: Performed By: #### P OCGLUC #### [facility] [address] [place] [address] Dr. Roscoe Segal MCV (RBC) [Entitic vol] 95.7 fL Normal 81.0-99.0 [facility] Comment on above: Performed By: #### P OCGLUC #### [facility] [address] [place] [address] Dr. Roscoe Segal MONO # 1.0 103/ul Critically high 0.3-0.8 [facility] Comment on above: Performed By: #### P OCGLUC #### [facility] [address] [place] [address] Dr. Roscoe Segal Monocytes/100 WBC (Bld) 7.9 % Normal 1.7-12.0 [facility] Comment on above: Performed By: #### P OCGLUC #### [facility] [address] [address] [address] Roscoe Segal NEUT # 6.2 103/ul Normal 1.4-6.5 [facility] Comment on above: Performed By: #### P OCGLUC #### [facility] [address] [place] [address] Dr. Roscoe Segal Neutrophils/100 WBC (Bld) 50.8 % Normal 43.0-75.0 [facility] Comment on above: Performed By: #### P OCGLUC #### [facility] [address] [address] [address] Roscoe Segal Platelet mean volume (Bld) [Entitic vol] 8.8 fL Critically low 9.5-13.5 [facility] Comment on above: Performed By: #### P OCGLUC #### [facility] [address] [address] [address] Roscoe Segal PLT 407 103/ul Normal 150-450 [facility] Comment on above: Performed By: #### P OCGLUC #### [facility] [address] [address] [address] Roscoe Segal RBC 4.68 106/ul Normal 4.20-5.40 [facility] Comment on above: Performed By: #### P OCGLUC #### [facility] [address] [place] [address] Dr. Roscoe Segal WBC 12.2 103/ul Critically high 4.0-11.0 [facility] Comment on above: Performed By: #### P OCGLUC #### [facility] [address] [address] [address] Roscoe Segal LACTATE/LACTIC ACIDon 2021 Lactate [Moles/Vol] 2.1 mmol/L Critically high 0.4-1.9 [facility] Comment on above: Performed By: #### P OCGLUC #### [facility] [address] [address] [address] Roscoe Segal Lactate [Moles/Vol] 2.2 mmol/L Critically high 0.4-1.9 [facility] Comment on above: Performed By: #### P OCGLUC #### [facility] [address] [address] [address] Roscoe Segal POINT OF CARE GLUCOSEon 02-13 Glucose [Mass/Vol] 109 mg/dL Critically high 74-106 [facility] Comment on above: Performed By: #### P OCGLUC #### [facility] [address] [place] [address] Dr. Roscoe Segal Glucose [Mass/Vol] 108 mg/dL Critically high 74-106 [facility] Comment on above: Performed By: #### P OCGLUC #### [facility] [address] [address] [address] Roscoe Segal Glucose [Mass/Vol] 98 mg/dL Normal 74-106 [facility] Comment on above: Performed By: #### I NFLUAB #### [facility] [address] [address] [address] Roscoe Segal Glucose [Mass/Vol] 274 mg/dL Critically high 74-106 [facility] Comment on above: Performed By: #### C BC #### [facility] [address] [address] [address] Roscoe Segal Glucose [Mass/Vol] 87 mg/dL Normal 74-106 [facility] Comment on above: Performed By: #### P OCGLUC #### [facility] [address] [address] [address] Roscoe Segal Glucose [Mass/Vol] 98 mg/dL Normal 74-106 [facility] Comment on above: Performed By: #### P OCGLUC #### [facility] [address] [address] [address] Roscoe Segal Glucose [Mass/Vol] 131 mg/dL Critically high 74-106 [facility] Comment on above: Performed By: #### P OCGLUC #### [facility] [address] [address] [address] Roscoe Segal Glucose [Mass/Vol] 59 mg/dL Critically low 74-106 [facility] Comment on above: Performed By: #### P OCGLUC #### [facility] [address] [address] [address] Roscoe Segal Glucose [Mass/Vol] 95 mg/dL Normal 74-106 [facility] Comment on above: Performed By: #### P OCGLUC #### [facility] [address] [place] [address] Dr. Roscoe Segal PROF CHEM 8 (BAS METB)on Anion gap [Moles/Vol] 15.2 mmol/L Normal [facility] Comment on above: Performed By: #### P OCGLUC #### [facility] [address] [address] [address] Roscoe Segal Calcium [Mass/Vol] 8.7 mg/dL Normal 8.5-10.1 [facility] Comment on above: Performed By: #### P OCGLUC #### [facility] [address] [address] [address] Roscoe Segal Chloride [Moles/Vol] 108 mmol/L Critically high 98-107 [facility] Comment on above: Performed By: #### P OCGLUC #### [facility] [address] [address] [address] Roscoe Segal CO2 [Moles/Vol] 20.8 mmol/L Critically low 21.0-32.0 [facility] Comment on above: Performed By: #### P OCGLUC #### [facility] [address] [place] [address] Dr. Roscoe Segal Creatinine [Mass/Vol] 1.21 mg/dL Critically high 0.55-1.02 [facility] Comment on above: Performed By: #### P OCGLUC #### [facility] [address] [place] [address] Dr. Roscoe Segal EGFR-AF MALAGASY 58 mL/min/1.73m2 Critically low >=60 [facility] Comment on above: Performed By: #### P OCGLUC #### [facility] [address] [place] [address] Dr. Roscoe Segal EGFR-NON AF MALAGASY 48 mL/min/1.73m2 Critically low >=60 [facility] Comment on above: Performed By: #### P OCGLUC #### [facility] [address] [place] [address] Dr. Roscoe Segal Glucose [Mass/Vol] 54 mg/dL Critically low 74-106 [facility] Comment on above: Performed By: #### P OCGLUC #### [facility] [address] [place] [address] Dr. Roscoe Segal Potassium [Moles/Vol] 3.0 mmol/L Critically low 3.5-5.1 [facility] Comment on above: Performed By: #### P OCGLUC #### [facility] [address] [address] [address] Roscoe Segal Sodium [Moles/Vol] 141 mmol/L Normal 136-145 [facility] Comment on above: Performed By: #### P OCGLUC #### [facility] [address] [address] [address] Roscoe Segal Urea nitrogen [Mass/Vol] 11.0 mg/dL Normal 7.0-18.0 [facility] Comment on above: Performed By: #### P OCGLUC #### [facility] [address] [place] [address] Dr. Roscoe Segal Urea nitrogen/Creatinine [Mass ratio] 9.1 mg/mg Normal [facility] Comment on above: Performed By: #### P OCGLUC #### [facility] [address] [place] [address] Dr. Roscoe Segal XR CHEST 1 Von [...] JUAN SAID Date: 2022-03-03 01:14 Normal [facility] CBC AUTO DIFFon 01-01-2022 BASO # 0.1 103/ul Normal 0.0-0.1 [facility] Comment on above: Performed By: #### P OCGLUC #### [facility] [address] [place] [address] Dr. Roscoe Segal Basophils/100 WBC (Bld) 0.7 % Normal 0.2-2.0 [facility] Comment on above: Performed By: #### P OCGLUC #### [facility] [address] [address] [address] Roscoe Segal EO # 0.1 103/ul Normal 0.0-0.7 [facility] Comment on above: Performed By: #### P OCGLUC #### [facility] [address] [address] [address] Roscoe Segal Eosinophils/100 WBC (Bld) 0.9 % Normal 0.9-7.0 [facility] Comment on above: Performed By: #### P OCGLUC #### [facility] [address] [place] [address] Dr. Roscoe Segal Erythrocyte distribution width (RBC) [Ratio] 14.5 % Normal 11.0-15.0 [facility] Comment on above: Performed By: #### P OCGLUC #### [facility] [address] [place] [address] Dr. Roscoe Segal Hematocrit (Bld) [Volume fraction] 41.4 % Normal 36.0-48.0 [facility] Comment on above: Performed By: #### P OCGLUC #### [facility] [address] [place] [address] Dr. Roscoe Segal Hemoglobin (Bld) [Mass/Vol] 13.4 g/dL Normal 12.0-16.0 [facility] Comment on above: Performed By: #### P OCGLUC #### [facility] [address] [place] [address] Dr. Roscoe Segal IG # 0.08 10e3/ul Critically high 0.00-0.03 [facility] Comment on above: Performed By: #### P OCGLUC #### [facility] [address] [place] [address] Dr. Roscoe Segal IG % 0.7 % Critically high 0.0-0.5 [facility] Comment on above: Performed By: #### P OCGLUC #### [facility] [address] [place] [address] Dr. Roscoe Segal LYMPH # 2.4 103/ul Normal 1.2-3.8 [facility] Comment on above: Performed By: #### P OCGLUC #### [facility] [address] [address] [address] Roscoe Segal Lymphocytes/100 WBC (Bld) 22.0 % Normal 20.5-60.0 [facility] Comment on above: Performed By: #### P OCGLUC #### [facility] [address] [address] [address] Roscoe Segal MANUAL DIFF REQ NO Normal [facility] Comment on above: Performed By: #### P OCGLUC #### [facility] [address] [address] [address] Roscoe Segal MCH (RBC) [Entitic mass] 31.2 pg Normal 26.7-34.0 [facility] Comment on above: Performed By: #### P OCGLUC #### [facility] [address] [place] [address] Dr. Roscoe Segal MCHC (RBC) [Mass/Vol] 32.4 g/dL Normal 29.9-35.2 [facility] Comment on above: Performed By: #### P OCGLUC #### [facility] [address] [address] [address] Roscoe Segal MCV (RBC) [Entitic vol] 96.3 fL Normal 81.0-99.0 [facility] Comment on above: Performed By: #### P OCGLUC #### [facility] [address] [place] [address] Dr. Roscoe Segal MONO # 0.9 103/ul Critically high 0.3-0.8 [facility] Comment on above: Performed By: #### P OCGLUC #### [facility] [address] [address] [address] Roscoe Segal Monocytes/100 WBC (Bld) 7.7 % Normal 1.7-12.0 [facility] Comment on above: Performed By: #### P OCGLUC #### [facility] [address] [address] [address] Roscoe Segal NEUT # 7.5 103/ul Critically high 1.4-6.5 [facility] Comment on above: Performed By: #### P OCGLUC #### [facility] [address] [address] [address] Roscoe Segal Neutrophils/100 WBC (Bld) 68.0 % Normal 43.0-75.0 [facility] Comment on above: Performed By: #### P OCGLUC #### [facility] [address] [address] [address] Roscoe Segal Platelet mean volume (Bld) [Entitic vol] 8.8 fL Critically low 9.5-13.5 [facility] Comment on above: Performed By: #### P OCGLUC #### [facility] [address] [place] [address] Dr. Roscoe Segal PLT 317 103/ul Normal 150-450 [facility] Comment on above: Performed By: #### P OCGLUC #### [facility] [address] [place] [address] Dr. Roscoe Segal RBC 4.30 106/ul Normal 4.20-5.40 [facility] Comment on above: Performed By: #### P OCGLUC #### [facility] [address] [place] [address] Dr. Roscoe Segal WBC 11.1 103/ul Critically high 4.0-11.0 [facility] Comment on above: Performed By: #### P OCGLUC #### [facility] [address] [place] [address] Dr. Roscoe Segal Covid-19 PCR ([facility])on 12-14 SARS-CoV-2 (COVID-19) RNA SOILA+probe Ql (Unsp spec) Not detected Normal NOT DETECTED [facility] Comment on above: Result Comment: When [...] for this test is supported by the [employer]'s declaration that [...] used). Performed By: #### P OCGLUC #### [facility] [address] [place] [address] Dr. Roscoe Segal ETHANOL (BLD ALC)on 01-02-20 22 ALC NOTE NOTE: 80 mg/dl is [facility] legal limit for a blood alcohol level Normal [facility] Comment on above: Performed By: #### C BC #### [facility] [address] [place] [address] Dr. Roscoe Segal Ethanol [Mass/Vol] 197 mg/dL Normal [facility] Comment on above: Performed By: #### C BC #### [facility] [address] [place] [address] Dr. Roscoe Segal PROF CHEM 8 (BAS METB)on Anion gap [Moles/Vol] 16.4 mmol/L Normal [facility] Comment on above: Performed By: #### I NFLUAB #### [facility] [address] [place] [address] Dr. Roscoe Segal Calcium [Mass/Vol] 8.2 mg/dL Critically low 8.5-10.1 [facility] Comment on above: Performed By: #### I NFLUAB #### [facility] [address] [place] [address] Dr. Roscoe Segal Chloride [Moles/Vol] 107 mmol/L Normal 98-107 [facility] Comment on above: Performed By: #### I NFLUAB #### [facility] [address] [place] [address] Dr. Roscoe Segal CO2 [Moles/Vol] 21.3 mmol/L Normal 21.0-32.0 [facility] Comment on above: Performed By: #### I NFLUAB #### [facility] [address] [place] [address] Dr. Roscoe Segal Creatinine [Mass/Vol] 0.78 mg/dL Normal 0.55-1.02 [facility] Comment on above: Performed By: #### I NFLUAB #### [facility] [address] [address] [address] Roscoe Segal EGFR-AF MALAGASY >60 Normal >=60 [facility] Comment on above: Performed By: #### I NFLUAB #### [facility] [address] [address] [address] Roscoe Segal EGFR-NON AF MALAGASY >60 Normal >=60 [facility] Comment on above: Performed By: #### I NFLUAB #### [facility] [address] [address] [address] Roscoe Segal Glucose [Mass/Vol] 310 mg/dL Critically high 74-106 [facility] Comment on above: Performed By: #### I NFLUAB #### [facility] [address] [address] [address] Roscoe Segal Potassium [Moles/Vol] 3.7 mmol/L Normal 3.5-5.1 [facility] Comment on above: Performed By: #### I NFLUAB #### [facility] [address] [address] [address] Roscoe Segal Sodium [Moles/Vol] 141 mmol/L Normal 136-145 [facility] Comment on above: Performed By: #### I NFLUAB #### [facility] [address] [address] [address] Roscoe Segal Urea nitrogen [Mass/Vol] 8.0 mg/dL Normal 7.0-18.0 [facility] Comment on above: Performed By: #### I NFLUAB #### [facility] [address] [place] [address] Dr. Roscoe Segal Urea nitrogen/Creatinine [Mass ratio] 10.3 mg/mg Normal [facility] Comment on above: Performed By: #### I NFLUAB #### [facility] [address] [place] [address] Dr. Roscoe Segal XR CHEST 1 Von [...] GERMAINE FARRELL Date: 2022-01-01 19:08 Normal [facility] CBC AUTO DIFFon 12-24-2021 BASO # 0.1 103/ul Normal 0.0-0.1 [facility] Comment on above: Performed By: #### I NFLUAB #### [facility] [address] [address] [address] Roscoe Segal Basophils/100 WBC (Bld) 0.9 % Normal 0.2-2.0 [facility] Comment on above: Performed By: #### I NFLUAB #### [facility] [address] [address] [address] Roscoe Segal EO # 0.2 103/ul Normal 0.0-0.7 [facility] Comment on above: Performed By: #### I NFLUAB #### [facility] [address] [address] [address] Roscoe Segal Eosinophils/100 WBC (Bld) 2.4 % Normal 0.9-7.0 [facility] Comment on above: Performed By: #### I NFLUAB #### [facility] [address] [address] [address] Roscoe Segal Erythrocyte distribution width (RBC) [Ratio] 14.8 % Normal 11.0-15.0 [facility] Comment on above: Performed By: #### I NFLUAB #### [facility] [address] [address] [address] Roscoe Segal Hematocrit (Bld) [Volume fraction] 41.1 % Normal 36.0-48.0 [facility] Comment on above: Performed By: #### I NFLUAB #### [facility] [address] [address] [address] Roscoe Segal Hemoglobin (Bld) [Mass/Vol] 13.0 g/dL Normal 12.0-16.0 [facility] Comment on above: Performed By: #### I NFLUAB #### [facility] [address] [address] [address] Roscoe Segal IG # 0.10 10e3/ul Critically high 0.00-0.03 [facility] Comment on above: Performed By: #### I NFLUAB #### [facility] [address] [place] [address] Dr. Roscoe Segal IG % 1.1 % Critically high 0.0-0.5 [facility] Comment on above: Performed By: #### I NFLUAB #### [facility] [address] [place] [address] Dr. Roscoe Segal LYMPH # 2.0 103/ul Normal 1.2-3.8 [facility] Comment on above: Performed By: #### I NFLUAB #### [facility] [address] [place] [address] Dr. Roscoe Segal Lymphocytes/100 WBC (Bld) 21.5 % Normal 20.5-60.0 [facility] Comment on above: Performed By: #### I NFLUAB #### [facility] [address] [place] [address] Dr. Roscoe Segal MANUAL DIFF REQ NO Normal [facility] Comment on above: Performed By: #### I NFLUAB #### [facility] [address] [address] [address] Roscoe Segal MCH (RBC) [Entitic mass] 31.0 pg Normal 26.7-34.0 [facility] Comment on above: Performed By: #### I NFLUAB #### [facility] [address] [place] [address] Dr. Roscoe Segal MCHC (RBC) [Mass/Vol] 31.6 g/dL Normal 29.9-35.2 [facility] Comment on above: Performed By: #### I NFLUAB #### [facility] [address] [place] [address] Dr. Roscoe Segal MCV (RBC) [Entitic vol] 98.1 fL Normal 81.0-99.0 [facility] Comment on above: Performed By: #### I NFLUAB #### [facility] [address] [place] [address] Dr. Roscoe Segal MONO # 0.8 103/ul Normal 0.3-0.8 [facility] Comment on above: Performed By: #### I NFLUAB #### [facility] [address] [place] [address] Dr. Roscoe Segal Monocytes/100 WBC (Bld) 8.9 % Normal 1.7-12.0 [facility] Comment on above: Performed By: #### I NFLUAB #### [facility] [address] [place] [address] Dr. Roscoe Segal NEUT # 6.0 103/ul Normal 1.4-6.5 [facility] Comment on above: Performed By: #### I NFLUAB #### [facility] [address] [place] [address] Dr. Roscoe Segal Neutrophils/100 WBC (Bld) 65.2 % Normal 43.0-75.0 [facility] Comment on above: Performed By: #### I NFLUAB #### [facility] [address] [place] [address] Dr. Roscoe Segal Platelet mean volume (Bld) [Entitic vol] 9.4 fL Critically low 9.5-13.5 [facility] Comment on above: Performed By: #### I NFLUAB #### [facility] [address] [place] [address] Dr. Roscoe Segal PLT 332 103/ul Normal 150-450 [facility] Comment on above: Performed By: #### I NFLUAB #### [facility] [address] [place] [address] Dr. Roscoe Segal RBC 4.19 106/ul Critically low 4.20-5.40 [facility] Comment on above: Performed By: #### I NFLUAB #### [facility] [facility] [address] [address] [address] Roscoe Segal WBC 9.2 103/ul Normal 4.0-11.0 [facility] Comment on above: Performed By: #### I NFLUAB #### [facility] [address] [address] [address] Roscoe Segal GLYCOHEMOGLOBIN A1Con 2021 ADA RECOMMENDATION SEE BELOW Normal [facility] Comment on above: Result Comment: ADA RECOMMENDED LIMIT 4.0 - 6.0 ADA THERAPEUTIC TARGET < 7.0 ACTION SUGGESTED > 7.0 Performed By: #### C BC #### [facility] [address] [place] [address] Dr. Roscoe Segal Glucose [Mass/Vol] 217 mg/dL Normal [facility] Comment on above: Performed By: #### C BC #### [facility] [address] [place] [address] Dr. Roscoe Segal HbA1c (Bld) [Mass fraction] 9.2 % Critically high 4.5-6.2 [facility] Comment on above: Performed By: #### C BC #### [facility] [address] [place] [address] Dr. Roscoe Segal LIPID PROFILEon 12-24-2021 CHOL-HDL RATIO NORM SEE BELOW Normal [facility] Comment on above: Result Comment: 3.3 - 4.4 LOW RISK 4.4 - 7.1 AVERAGE RISK 7.1 - 11.0 MODERATE RISK >11.0 HIGH RISK Performed By: #### C BC #### [facility] [address] [place] [address] Dr. Roscoe Segal Cholesterol [Mass/Vol] 191 mg/dL Normal <=200 [facility] Comment on above: Performed By: #### C BC #### [facility] [address] [place] [address] Dr. Roscoe Segal Cholesterol in HDL [Mass/Vol] 52 mg/dL Normal 40-60 [facility] Comment on above: Performed By: #### C BC #### [facility] [address] [address] [address] Roscoe Segal Cholesterol in LDL [Mass/Vol] 95.6 mg/dL Normal [facility] Comment on above: Performed By: #### C BC #### [facility] [address] [address] [address] Roscoe Segal Cholesterol.total/Chol esterol in HDL [Mass ratio] 3.7 {ratio} Normal [facility] Comment on above: Performed By: #### C BC #### [facility] [address] [address] [address] Roscoe Segal HDL NORMAL > or = 60 mg/dl - LO W CARDIOVASCULAR RISK <40 mg/dl - HIGH CARDIOVASCULAR RISK Normal [facility] Comment on above: Performed By: #### C BC #### [facility] [address] [place] [address] Dr. Roscoe Segal LDL CALC NORMAL SEE BELOW Normal [facility] Comment on above: Result Comment: <100 mg/dl OPTIMAL 100 - 129 mg/dl NEAR OR ABOVE OPTIMAL 130 - 159 mg/dl BORDERLINE HIGH 160 - 189 mg/dl HIGH >190 mg/dl VERY HIGH Performed By: #### C BC #### [facility] [address] [place] [address] Dr. Roscoe Segal Triglyceride [Mass/Vol] 217 mg/dL Critically high <=150 [facility] Comment on above: Performed By: #### C BC #### [facility] [address] [address] [address] Roscoe Segal VLDL CALC 43.4 mg/dL Normal [facility] Comment on above: Performed By: #### C BC #### [facility] [address] [address] [address] Roscoe Segal MICROALBUMIN, RAND URon 12-14 mALB <1.3 Normal <=30.0 [facility] Comment on above: Performed By: #### P OCGLUC #### [facility] [address] [place] [address] Dr. Roscoe Segal PROF 14(COMP METB)on 022 Albumin [Mass/Vol] 3.0 g/dL Critically low 3.4-5.0 [facility] Comment on above: Performed By: #### C BC #### [facility] [address] [place] [address] Dr. Roscoe Segal Albumin/Globulin [Mass ratio] 0.9 {ratio} Normal [facility] Comment on above: Performed By: #### C BC #### [facility] [address] [address] [address] Roscoe Segal ALP [Catalytic activity/Vol] 72 U/L Normal 46-116 [facility] Comment on above: Performed By: #### C BC #### [facility] [address] [place] [address] Dr. Roscoe Segal ALT [Catalytic activity/Vol] 17 U/L Normal 14-59 [facility] Comment on above: Performed By: #### C BC #### [facility] [address] [place] [address] Dr. Roscoe Segal Anion gap [Moles/Vol] 12.3 mmol/L Normal [facility] Comment on above: Performed By: #### C BC #### [facility] [address] [place] [address] Dr. Roscoe Segal AST [Catalytic activity/Vol] 15 U/L Normal 15-37 [facility] Comment on above: Performed By: #### C BC #### [facility] [address] [place] [address] Dr. Roscoe Segal Bilirubin [Mass/Vol] 0.1 mg/dL Critically low 0.2-1.0 [facility] Comment on above: Performed By: #### C BC #### [facility] [address] [place] [address] Dr. Roscoe Segal Calcium [Mass/Vol] 8.9 mg/dL Normal 8.5-10.1 [facility] Comment on above: Performed By: #### C BC #### [facility] [address] [place] [address] Dr. Roscoe Segal Chloride [Moles/Vol] 102 mmol/L Normal 98-107 [facility] Comment on above: Performed By: #### C BC #### [facility] [address] [address] [address] Roscoe Segal CO2 [Moles/Vol] 24.0 mmol/L Normal 21.0-32.0 [facility] Comment on above: Performed By: #### C BC #### [facility] [address] [address] [address] Roscoe Segal Creatinine [Mass/Vol] 0.91 mg/dL Normal 0.55-1.02 [facility] Comment on above: Performed By: #### C BC #### [facility] [address] [place] [address] Dr. Roscoe Segal EGFR-AF MALAGASY >60 Normal >=60 [facility] Comment on above: Performed By: #### C BC #### [facility] [address] [place] [address] Dr. Roscoe Segal EGFR-NON AF MALAGASY >60 Normal >=60 [facility] Comment on above: Performed By: #### C BC #### [facility] [address] [place] [address] Dr. Roscoe Segal Globulin (S) [Mass/Vol] 3.4 g/dL Normal [facility] Comment on above: Performed By: #### C BC #### [facility] [address] [place] [address] Dr. Roscoe Segal Glucose [Mass/Vol] 309 mg/dL Critically high 74-106 [facility] Comment on above: Performed By: #### C BC #### [facility] [address] [place] [address] Dr. Roscoe Segal Potassium [Moles/Vol] 4.3 mmol/L Normal 3.5-5.1 [facility] Comment on above: Performed By: #### C BC #### [facility] [address] [place] [address] Dr. Roscoe Segal Protein [Mass/Vol] 6.4 g/dL Normal 6.4-8.2 [facility] Comment on above: Performed By: #### C BC #### [facility] [address] [place], [place] [address] Dr. Roscoe Segal Sodium [Moles/Vol] 134 mmol/L Critically low 136-145 [facility] Comment on above: Performed By: #### C BC #### [facility] [address] [place], [place] [address] Dr. Roscoe Segal Urea nitrogen [Mass/Vol] 11.0 mg/dL Normal 7.0-18.0 [facility] Comment on above: Performed By: #### C BC #### [facility] [address] [place], [place] [address] Dr. Roscoe Segal Urea nitrogen/Creatinine [Mass ratio] 12.1 mg/mg Normal [facility] Comment on above: Performed By: #### C BC #### [facility] [address] [address] [address] Roscoe Segal Glucose Glucometer (BldC) [M ass/Vol]on 01-02-2021 Glucose [Mass/Vol] 71 mg/dL [facility] Comment on above: Random Glucose Refer ence Range is dependent on time and content of last meal. Glucose of more than 200 mg/dL in a nonstressed, ambulatory subject supports the diagnosis of Diabetes Mellitus. No Panel Informationon 01-02 Bedside Glucose Comment See comment [facility] Comment on above: Glu2: WILL NOTIFY /MIGUEL COVID-19 Positive/Negativeon 12-31-2020 SARS-CoV-2 (COVID-19) N gene SOILA+probe Ql (Resp) Negative Negative [facility] Comment on above: Testing for SARS-CoV -2 by RT-PCRThis test was developed and its performance characteristics determined by [employer] ([employer]) and validated at the [facility]. This test has not been [...] N gene SOILA+probe Ql (Resp) Negative Negative [facility] Comment on above: Reference: NegativeT esting for SARS-CoV-2 by RT-PCRThis test was developed and its performance characteristics determined by [employer] ([employer]) and validated at the [facility]. This test has not been [...] (COVID-19) RNA SOILA+probe Ql (Unsp spec) N/A [facility] Vital Signs Date Time Vital Sign Value Performing Clinician Faci lity 09-29-2023 15:07-0500 Body height 172.7 cm Naomi Bernard MD Work Phone: [facility] 09-29-2023 15:07-0500 Body mass index (BMI) [Ratio] 33.45 kg/m2 Naomi Bernard MD Work Phone: [facility] 09-29-2023 15:07-0500 Body weight 99.79 kg Naomi Bernard MD Work Phone: [facility] 09-29-2023 15:07-0500 Diastolic blood pressure 68 mm[Hg] Naomi Bernard MD Work Phone: [facility] 09-29-2023 15:07-0500 Systolic blood pressure 112 mm[Hg] Naomi Bernard MD Work Phone: [facility] 09-01-2023 09:30-0500 Body height 172.72 cm Bambi Sandy Other [facility] Other 09-01-2023 09:30-0500 Body mass index (BMI) [Ratio] 31.77 kg/m2 Bambi Sandy Other [facility] Other 09-01-2023 09:30-0500 Body temperature 97 [degF] Bambi Sandy Other [facility] Other 09-01-2023 09:30-0500 Body weight 94.8 kg Bambi Sandy Other [facility] Other 09-01-2023 09:30-0500 Diastolic blood pressure 90 mm[Hg] Bambi Sandy Other [facility] Other 09-01-2023 09:30-0500 Respiratory rate 20 /min Bambi Sandy Other [facility] Other 09-01-2023 09:30-0500 SaO2% (BldA) [Mass fraction] 93 % Bambi Sandy Other [facility] Other 09-01-2023 09:30-0500 Systolic blood pressure 134 mm[Hg] Bambi Sandy Other [facility] Other 08-06-2023 22:00-0500 Body temperature 97.4 [degF] MD Shaikh Cruz Work Phone: [facility] 08-06-2023 22:00-0500 Diastolic blood pressure 62 mm[Hg] MD Shaikh Cruz Work Phone: [facility] 08-06-2023 22:00-0500 Heart rate 95 /min MD Shaikh Cruz Work Phone: [facility] 08-06-2023 22:00-0500 Respiratory rate 22 /min MD Shaikh Cruz Work Phone: [facility] 08-06-2023 22:00-0500 SaO2% (BldA) [Mass fraction] 90 % MD Shaikh Cruz Work Phone: [facility] 08-06-2023 22:00-0500 Systolic blood pressure 112 mm[Hg] MD Shaikh Cruz Work Phone: [facility] 08-06-2023 20:37-0500 Inhaled oxygen flow rate 3 L/min MD Shaikh Cruz Work Phone: [facility] 08-06-2023 15:50-0500 Body height 172.72 cm MD Shaikh Cruz Work Phone: [facility] 08-06-2023 15:50-0500 Body weight 97.35 kg MD Shaikh Cruz Work Phone: [facility] 07-17-2023 00:22-0500 Diastolic blood pressure 72 mm[Hg] MD Shaikh Cruz Work Phone: [facility] 07-17-2023 00:22-0500 Heart rate 90 /min MD Shaikh Cruz Work Phone: [facility] 07-17-2023 00:22-0500 Inhaled oxygen flow rate 3 L/min MD Shaikh Cruz Work Phone: [facility] 07-17-2023 00:22-0500 Respiratory rate 18 /min MD Shaikh Cruz Work Phone: [facility] 07-17-2023 00:22-0500 SaO2% (BldA) [Mass fraction] 96 % MD Shaikh Cruz Work Phone: [facility] 07-17-2023 00:22-0500 Systolic blood pressure 118 mm[Hg] MD Shaikh Cruz Work Phone: [facility] 07-16-2023 20:56-0500 Body height 172.72 cm MD Shaikh Cruz Work Phone: [facility] 07-16-2023 20:56-0500 Body temperature 98.2 [degF] MD Shaikh Cruz Work Phone: [facility] 07-16-2023 20:56-0500 Body weight 97.2 kg MD Shaikh Cruz Work Phone: [facility] 07-05-2023 15:48-0500 Diastolic blood pressure 96 mm[Hg] MD Shaikh Cruz Work Phone: [facility] 07-05-2023 15:48-0500 Heart rate 91 /min MD Shaikh Cruz Work Phone: [facility] 07-05-2023 15:48-0500 Respiratory rate 20 /min MD Shaikh Cruz Work Phone: [facility] 07-05-2023 15:48-0500 SaO2% (BldA) [Mass fraction] 95 % MD Shaikh Cruz Work Phone: [facility] 07-05-2023 15:48-0500 Systolic blood pressure 160 mm[Hg] MD Shaikh Cruz Work Phone: [facility] 07-05-2023 13:49-0500 Body height 170.18 cm MD Shaikh Cruz Work Phone: [facility] 07-05-2023 13:49-0500 Body temperature 98.5 [degF] MD Shaikh Cruz Work Phone: [facility] 07-05-2023 13:49-0500 Body weight 97.8 kg MD Shaikh Cruz Work Phone: [facility] 06-20-2023 13:40-0500 Body height 172.72 cm Courtney Valladares Other [facility] Other 06-20-2023 13:40-0500 Body mass index (BMI) [Ratio] 32.47 kg/m2 Courtney Valladares Other [facility] Other 06-20-2023 13:40-0500 Body temperature 97.8 [degF] Courtney Valladares Other [facility] Other 06-20-2023 13:40-0500 Body weight 96.89 kg Courtney Valladares Other [facility] Other 06-20-2023 13:40-0500 Respiratory rate 20 /min Courtney Valladares Other [facility] Other 06-20-2023 13:40-0500 SaO2% (BldA) [Mass fraction] 91 % Courtney Valladares Other [facility] 03-14-2023 15:19-0400 Body temperature 97.5 [degF] MD Shaikh Cruz Work Phone: [facility] 03-14-2023 15:19-0400 Diastolic blood pressure 81 mm[Hg] MD Shaikh Cruz Work Phone: [facility] 03-14-2023 15:19-0400 Heart rate 83 /min MD Shaikh Cruz Work Phone: [facility] 03-14-2023 15:19-0400 Respiratory rate 18 /min MD Shaikh Cruz Work Phone: [facility] 03-14-2023 15:19-0400 SaO2% (BldA) [Mass fraction] 97 % MD Shaikh Cruz Work Phone: [facility] 03-14-2023 15:19-0400 Systolic blood pressure 145 mm[Hg] MD Shaikh Cruz Work Phone: [facility] 03-14-2023 03:51-0400 Body weight 94.1 kg MD Shaikh Cruz Work Phone: [facility] 03-13-2023 00:00-0400 Inhaled oxygen flow rate 2 L/min MD Shaikh Cruz Work Phone: [facility] 03-11-2023 16:04-0400 Body height 170.18 cm MD Shaikh Cruz Work Phone: [facility] 02-14-2023 14:30-0400 Body height 172.72 cm Katie Alberto Other [facility] Other 02-14-2023 14:30-0400 Body mass index (BMI) [Ratio] 14.93 kg/m2 Katie Alberto Other [facility] 02-14-2023 14:30-0400 Body temperature 97.8 [degF] Katie Alberto Other [facility] Other 02-14-2023 14:30-0400 Body weight 44.54 kg Katie Alberto Other [facility] Other 02-14-2023 14:30-0400 Respiratory rate 18 /min Katie Alberto Other [facility] Other 02-14-2023 14:30-0400 SaO2% (BldA) [Mass fraction] 94 % Katie Alberto Other [facility] Other 01-02-2021 09:40-0400 Diastolic blood pressure 65 mm[Hg] Walker Dudenhoefer Work Phone: [facility] 01-02-2021 09:40-0400 Heart rate 86 /min Walker Dudenhoefer Work Phone: [facility] 01-02-2021 09:40-0400 Respiratory rate 16 /min Walker Dudenhoefer Work Phone: [facility] 01-02-2021 09:40-0400 SaO2% (BldA) [Mass fraction] 95 % Walker Dudenhoefer Work Phone: [facility] 01-02-2021 09:40-0400 Systolic blood pressure 112 mm[Hg] Walker Dudenhoefer Work Phone: [facility] 01-02-2021 08:23-0400 Body height 172.72 cm Walker Dudenhoefer Work Phone: [facility] 01-02-2021 08:23-0400 Body mass index (BMI) [Ratio] 36.5 kg/m2 Walker Dudenhoefer Work Phone: [facility] 01-02-2021 08:23-0400 Body weight 108.86 kg Walker Dudenhoefer Work Phone: [facility] 01-02-2021 06:56-0400 Body temperature 98.7 [degF] Walker Alba Work Phone: [facility] Encounters Encounter Date Encounter Type Care Provider Facility Start: 06-29-2024 End: 06-29-2024 ambulatory YONATHAN Jeyson LINA Not Available Start: 06-29-2024 End: 06-29-2024 ambulatory [facility] Start: 05-29-2024 End: 06-13-2024 Refill Carey Barth [facility] Comment on above: Gastroesophageal ref lux disease without esophagitis Start: 05-09-2024 ambulatory [facility] Start: 05-09-2024 End: 05-09-2024 ambulatory DENISSE SUSANNA Not Available Start: 05-09-2024 Patient encounter status Carey Oneil ins [facility] Start: 04-06-2024 End: 04-06-2024 ambulatory YONATHAN Jeyson LINA Not Available Start: 04-05-2024 End: 04-05-2024 ambulatory [facility] Start: 03-13-2024 End: 03-13-2024 ambulatory STEPHENS FAWWAD Not Available Start: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 Continue morphine, [place] as needed for pain. Stop IV fluid [...] Eron Wood MD> 03/11/23 1050 [facility] Work Phone: [phone] 536-842707-26-2023 History and physical note Author Eron Wood [facility] March 10, 2023 4:48pm Note Date/Time March 10, 2023 4:49 pm [facility] [address] [place] [address] Hospitalist H&P Signed Patient: Christiane Perez MR#: [id number] : 1975 Acct:[id number] Age/Sex: 48 / F Adm Date: 3 Loc: Room: [address] [place] [address] Type: ADM IN Attending Dr: Eron Wood [...] negative unless noted below or in HPI [facility] Medical History (Updated 03/10/23 @ 16:46 [...] 9 mcg-formot 4.8 mcg/actuation HFA inhaler ([employer]Junction[employer]) 1 puff inhalation DAILY 03/10/23 [History Confirmed [...] % (Auto) 5.7 % (.) 03/10/23 12:55 [place] % (Auto) 7.2 % (.) 03/10/23 12:55 Eos % (Auto) 1.1 % (.) 03/10/23 12:55 Baso % (Auto) 0.2 % (.) 03/10/23 12:55 Nucleat RBC Rel Count 0.1 /100 WBC (0-0.5) 03/10/23 12:55 Neut # (Auto) 14.2 x10E3/uL (1.8-7.7) H 03/10/23 12:55 Lymph # (Auto) 1.0 x10E3/uL (1.00-4.8) 03/10/23 12:55 [place] # (Auto) 1.2 x10E3/uL (0.0-0.8) H 03/10/23 [...] <Electronically signed by Eron Wood MD> 03/10/23 7411 [facility] Work Phone: 1(179) 617-557607-26-2023 Consult note Author Valeriano Horta [facility] March 10, 2023 3:27pm Note Date/Time March 10, 2023 3:27 pm [facility] [address] [place] [address] Cardiothoracic Consult Note Signed Patient: Christiane Perez MR#: [id number] : 1975 Acct:[id number] Age/Sex: 48 / F Adm Date: 3 Loc: ER Room: Type: [facility] ER Attending Dr: Copies to: DO Valeriano Morris MD Shaikh Fawwad, MD~ HPI Consult Date: 03/10/23 Primary Care Provider: Shaikh Anthony MD Consult Narrative Reason for consult: lung abscess HPI: Ms. Perez is a 48 year old female with persistent SOB. CT read as lung abscess with elevated WBC. Pt agreed with admission. Chart and CT reviewed. [facility] Medical History (Updated 03/10/23 @ 15:26 [...] signed by Valeriano Horta MD> 03/10/23 1527 [facility] Work Phone: [phone] Evaluation note* Encounter Date Diagnosis Assessment Notes [...] evaluation for possible sequelae into bronchitis/pneumoni a. Closely Other 08-26-2022 NotePROCEDURE: XR HIP RT 2 3V WO PELVIS HISTORY: Pain in right hip joint , chronic COMPARISON: None. FINDINGS: BONES:No fracture, acute abnormality, or significant arthropathy. SOFT TISSUES:No visible soft tissue swelling. EFFUSION:None visible. OTHER: Negative. IMPRESSION: 1. Normal examination. Electronically authenticated by: GERMAINE AFRRELL Date: 2022-04-10 08:14[facility] Krunal Kelly [facility] March 17, 2023 1:24pm Note Date/Time March 14, 2023 1:54 pm [facility] [address] [place] [address] Discharge Summary Signed Patient: Christiane Perez MR#: [id number] : 1975 Acct:[id number] Age/Sex: 48 / F Adm Date: 3 Loc: Room: [address] [place] [address] Attending Dr: Krunal Kelly DO Copies to: [...] % (Auto) 71.0, Lymph % (Auto) 16.8, [place] % (Auto) 7.1, Eos % (Auto) 4.4, Baso % (Auto) 0.7, Nucleat RBC Rel Count 0.1, Neut # (Auto) 6.8, Lymph # (Auto) 1.6, [place] # (Auto) 0.7, Eos # (Auto) 0.4, [...] signed by Krunal Kelly DO> 03/17/23 1324 [facility] Work Phone: Evaluation noteNo Assessments Information Available [facility] assessment information available [facility] note[facility] InformationNort [employer] Other Evaluation note* Diagnosis Onset Date Resolution Status Abscess of left lung with pneumonia acute Abscess of lung acute COPD (chronic obstructive pulmonary disease) acute Diabetes mellitus, type 2 ac dimple Lung mass acute Pneumonia acute Tobacco abuse acute [facility] Work Phone: Evaluation note* Diagnosis Hoarse- Primary Dysphonia Chronic laryngitis Thrush Candidiasis of mouth documented [facility] Diagnosis COPD with acute exacerbation (CMS/HCC)- Primary Type 2 diabetes mellitus with diabetic polyneuropathy, with long-term current use of insulin (CMS/HCC) Current smoker Encounter for screening for malignant neoplasm of colon Encounter for screening mammogram for malignant neoplasm of breast Hyperlipidemia, unspecified hyperlipidemia type (CMS/HCC) Oral thrush Candidiasis of mouth COPD exacerbation (CMS/HCC)- Primary Obstructive chronic bronchitis with exacerbation 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 (CMS/HCC) COPD with acute exacerbation (CMS/HCC) Entrapment of left ulnar nerve at elbow Pulmonary emphysema, unspecified emphysema type (CMS/HCC)- Primary Entrapment of left ulnar nerve at elbow Type 2 diabetes mellitus with diabetic polyneuropathy, with long-term current use of insulin (CMS/HCC) Screening for colon cancer- Primary Special screening for malignant neoplasms, colon Screening mammogram for breast cancer Wellness examination Poorly controlled type 2 diabetes mellitus (CMS/HCC) Type 2 diabetes mellitus with diabetic polyneuropathy, with long-term current use of insulin (CMS/HCC) Neck pain Cervicalgia Hyperlipidemia, unspecified hyperlipidemia type (CMS/HCC) Radiculopathy, lumbosacral region Thoracic or lumbosacral neuritis or radiculitis, unspecified Gastroesophageal reflux disease without esophagitis Esophageal reflux Diabetes mellitus due to underlying condition with diabetic polyneuropathy, with long-term current use of insulin (CMS/HCC)- Primary Pain due to onychomycosis of toenails of both feet Hav (hallux abducto valgus), left documented [facility] this encounter [facility] N[facility]ative - Reported* Type Description Date Medical History DIABETIC Medical History BI POLAR Medical History NEUROPATHY IN LEGS Medical History COPD Medical History GENITAL HERPES Medical History high cholesterol Medical History high blood pressure Surgical History Cholecystectomy Surgical History tonsillectomy Surgical History breast reduction 1996 Surgical History parital hysterectomy 2009 Hospitalization History see above [facility] Other Hisnogm general Narrative - Reported* Type Description Date Medical History DIABETIC Medical History BI POLAR Medical History NEUROPATHY IN LEGS Medical History COPD Medical History GENITAL HERPES Medical History high cholesterol Medical History high blood pressure Surgical History Cholecystectomy Surgical History tonsillectomy Surgical History breast reduction 1996 Surgical History parital hysterectomy 2009 Hospitalization History [facility] Lung Abcess 03/2023 Hospitalization History aspiration pneumonia 201 5 Closely Other Hisyuyv general Narrative - Reported* Type Description Date Medical History DIABETIC Medical History BI POLAR Medical History NEUROPATHY IN LEGS Medical History COPD Medical History GENITAL HERPES Medical History high cholesterol Medical History high blood pressure Medical History [facility] lung [facility]cess 02/2023 -- [facility] Surgical History Cholecystectomy Surgical History tonsillectomy Surgical History breast reduction 1996 Surgical History parital hysterectomy 2009 Hospitalization History [facility] Lung Abcess 03/2023 Hospitalization History aspiration pneumonia 201 5 [facility] Other Hospital Discharge instructions Additional Instructions Continue home oxygen per chronic orders.[facility] Work Phone: Hospital Discharge instructions Additional Instructions Steroids daily Use albuterol inhaler as instructed Push fluids Rest Follow with your PCP Avoid smoking [facility] here [facility] any problems [facility]: Advance Directives No Advanced [...] Referred Provider Naomi Bernard Referred Address [address] [place], [place],[address] Referred Provider Specialty Ear, Nose an d [...] pital DATE CREATED AUTHOR AUTHOR'S ORGANIZ ATION 03/24/2023 [facility] DATE CREATED AUTHOR AUTHOR'S ORGANIZ ATION 10/21/2023 [facility] DATE CREATED AUTHOR AUTHOR'S ORGANIZ ATION 05/31/2024 [facility] DATE CREATED AUTHOR AUTHOR'S ORGANIZ ATION 07/02/2024 [facility] DATE CREATED AUTHOR AUTHOR'S ORGANIZ ATION 07/02/2024 [facility] dical Specialists EPIC REASON FOR VISIT (unrecogniz ed section and content) Reason Comments Hoarseness X 4-5 mo Reason Onset Date Comments Med Refill 05/29/2024 Care Teams (unrecognized sec tion and content) Team Status: Active Member Role Status Dates Shaikh Anthony MD Primary Care Provider Active Team Status: Inactive Member Role Status Dates Shaikh Anthony MD Primary Care Provider Active Lavell Salazar DO Emergency Provider Active Eron Wood MD Admit Provider Active Errol Nicole MD Other Provider Active Valeriano Horta MD Other Provider Active Krunal Kelly DO Attending Provider Active Team Status: Inactive Member Role Status Dates Shaikh Anthony MD Primary Care Provider Active Valeriano Horta MD Attending Provider Active Team Status: Inactive Member Role Status Dates Shaikh Anthony MD Primary Care Provider Active Elio Villeda PA-C Emergency Provider Active Team Status: Inactive Member Role Status Rasheed Cruz MD Primary Care Provider Active Yasmin Leung MD Emergency Provider Active Team Status: Inactive Member Role Status Dates Shaikh Anthony MD Primary Care Provider Active Marilee Marcum APRN Emergency Provider Active Team Status: Inactive Member Role Status Rasheed Cruz MD Primary Care Provider Active Errol Nicole MD Attending Provider Active Programming Intern Relationship Specialty Start Date End Date Shaikh Cruz MD PCP - General Internal Medicine 02/24/23 Programming Intern Relationship Specialty Start Date End Date Shaikh Cruz MD [address] [place] [id number] PCP - General Internal Medicine 09/29/23 Programming Intern Relationship Specialty Start Date End Date Shaikh Cruz MD [address] [place] [phone] PCP - General Internal Medicine 09/29/23 Programming Intern Relationship Specialty Start Date End Date Shaikh Cruz MD [address] [place] [phone] PCP - General Internal Medicine 09/29/23 06/07/24 Unallocated, Khanh Oquendo MD [address] [place] [address] PCP - General Family Medicine 06/08/24 Denisse Mullins NP [address] [place] [address] Nurse Practitioner Family Medicine 06/08/24 FOR RECORDS PERTAINING TO PATIENTS WHO ARE [...] BE BASED ON THE PRIMARY CLINICAL RECORDS. [employer] [facility]. provides no warranty or guarantee of the accuracy or completeness of information in this document.
--- NOTE | 2024-07-06 19:50 | XR_ITS ---
The [address] [address] Patient Name: DIAN RAY MRN: [id number] date: 1975 Sex: F Assigned Patient Location: ER Current Patient Location: ER Accession/Order Number: [id number] Exam Date: 07/06/2024 20:06 Report Date: 07/06/2024 22:04 At the request of: DIAN KCEY Procedure: XR chest 1V EXAM: XR chest 1V HISTORY: drowsy COMPARISON: Chest radiograph 01/22/2024 TECHNIQUE: Single frontal chest radiograph FINDINGS: Lungs symmetrically and adequately inflated. Right basilar atelectasis versus scarring. Otherwise no focal consolidation or evidence of pulmonary edema. No pneumothorax or significant pleural effusion. Normal cardiomediastinal contours. No acute osseous abnormality. XR/XR chest 1V IMPRESSION: No acute cardiopulmonary findings. Electronically authenticated by: GERMAINE ROBERTS Date: 07/06/2024 22:04
--- NOTE | 2024-07-06 19:51 | CT_ITS ---
The [address] [address] Patient Name: DIAN RAY MRN: [id number] date: 1975 Sex: F Assigned Patient Location: ER [facility] Accession/Order Number: [id number] Exam Date: 07/06/2024 20:06 Report Date: 07/06/2024 20:47 At the request of: DIAN SAVITA Procedure: CT head/brain wo con EXAM: CT head/brain wo con HISTORY: drowsy COMPARISON: CT brain 03/06/2024. TECHNIQUE: Axial CT scans through the head were obtained without IV contrast administration. Dose reduction techniques were achieved by using: automated exposure control and/or adjustment of mA and /or kV according to patient size and/or use of iterative reconstruction technique. FINDINGS: There is no acute intracranial hemorrhage or abnormal extra-axial fluid collection. No mass effect or midline shift is seen. There is no evidence of large acute territorial infarction. There is no hydrocephalus. To the limit of CT, the posterior fossa appears unremarkable. The calvaria and extra cranial soft tissues are unremarkable. The visualized orbits show no abnormality. The visualized paranasal sinuses show no air-fluid level. Mastoid air cells are clear. CT/CT head/brain wo con IMPRESSION: No CT evidence of acute intracranial abnormality. Electronically authenticated by: GABE LEONE Date: 07/06/2024 20:47
--- NOTE | 2024-07-06 19:53 | ECG_ITS ---
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
[2024-07-06] MEDS: 0.9 % SODIUM CHLORIDE 1,000 ML 1000 ML IV (20:03)
[2024-07-06 20:06] LABS: Basophils Absolute Auto 0.1 10^3/uL (0.0-0.1); Basophils Percent Auto 0.6 % (0.2-2.0); Eosinophils Absolute Auto 0.2 10^3/uL (0.0-0.7); Eosinophils Percent Auto 1.3 % (0.9-7.0); Hematocrit 44.7 % (36.0-48.0); Immature Granulocytes Abs Auto 0.09 10^3/uL (0.00-0.03); Immature Granulocytes Pct Auto 0.7 % (0.0-0.5); Lymphocytes Absolute Auto 2.3 10^3/uL (1.2-3.8); Lymphocytes Percent Auto 17.8 % (20.5-60.0); Mean Corpuscular HGB Conc 33.6 g/dL (29.9-35.2); Mean Corpuscular Hemoglobin 32.6 pg (26.7-34.0); Mean Corpuscular Volume 97.2 fL (81.0-99.0); Mean Platelet Volume 9.6 fL (9.5-13.5); Monocytes Absolute Auto 0.7 10^3/uL (0.3-0.8); Monocytes Percent Auto 5.5 % (1.7-12.0); Neutrophils Absolute Auto 9.5 10^3/uL (1.4-6.5); Neutrophils Percent Auto 74.1 % (43.0-75.0); Platelet Count 349 10^3/uL (150-450); White Blood Count 12.8 10^3/uL (4.0-11.0)
--- NOTE | 2024-07-06 20:13 | ED.GENADUL1 ---
Documented by User: Christiane Rand 07/09/24 15:11 HPI HPI - General Adult General Chief complaint: Neuro Symptoms/Deficit Stated complaint: allergic reaction Time Seen by Provider: 07/06/24 19:50 Source: patient Mode of arrival: walk-in Limitations: no limitations History of Present Illness HPI narrative: 49-year-old female presents to the emergency room chief complaint of drowsiness, slurred speech. Patient's mother brought patient in for evaluation. Patient started a new medication on June 29 of amitriptyline. Patient also takes Ativan. Mom states she was concerned she may have taken too many as she has been drowsy. 20 she called her today she sounded drowsy and had slurred speech. Patient is alert and oriented this time. She does appear fatigued, drowsy. She denies any suicidal homicidal ideation. She has no other strokelike symptoms. Initial glucose One Touch upon arrival to the emergency room was 200. She states she is a diabetic and a history of COPD. Denies suicidal homicidal ideation.-Amitriptyline for sleep. Related Data Home Medications ?Medication ?Instructions ?Recorded ?Confirmed atorvastatin 40 mg tablet 40 mg PO DAILY 03/07/23 07/06/24 budesonide 160 mcg-glycopyr 9 1 inh inhalation BID 03/07/23 07/06/24 mcg-formot 4.8 mcg/actuation HFA inhaler (Breztri Aerosphere) dapagliflozin propanediol 10 mg 10 mg PO DAILY 03/07/23 07/06/24 tablet (Farxiga) gabapentin 800 mg tablet 800 mg PO TID 03/07/23 07/06/24 ibuprofen 800 mg tablet 800 mg PO TID PRN pain 03/07/23 03/06/24 insulin aspart U-100 100 unit/mL 10 unit subcut TIDWM 03/07/23 07/06/24 (3 mL) subcutaneous pen (Novolog FlexPen U-100 Insulin aspart) omeprazole 40 mg capsule,delayed 40 mg PO DAILY 03/07/23 07/06/24 release risperidone 1 mg tablet 1 mg PO BID 03/07/23 07/06/24 tizanidine 4 mg tablet 4 mg PO TID PRN muscle spasticity 03/07/23 07/06/24 insulin glargine 100 unit/mL (3 30 unit subcut QAM 01/18/24 07/06/24 mL) subcutaneous pen (Basaglar KwikPen U-100 Insulin) roflumilast 250 mcg tablet 250 mcg PO DAILY 01/18/24 07/06/24 amitriptyline 25 mg tablet 25 mg PO PRN insomnia 07/06/24 Previous Rx's ?Medication ?Instructions ?Recorded albuterol sulfate 90 mcg/actuation 2 inh inhalation Q4H PRN shortness 01/25/24 aerosol inhaler of breath or wheezing #8.5 grams lorazepam 1 mg tablet (Ativan) 1 mg PO Q8H PRN anxiety 5 days #15 01/25/24 tabs Allergies Allergy/AdvReac Type Severity Reaction Status Date / Time sumatriptan (From Imitrex) Allergy Severe Hives Verified 07/06/24 19:53 Opioid HPI Opioid Management Most Recent Opioid Data: Last Pain Scale 3 01/26/24 13:46 01/26/24 Ur Phencyclidine Scrn Negative (NEGATIVE) 07/06/24 21:50 07/06/24 Review of Systems ROS Narrative All Systems are negative except as noted/marked.All systems reviewed and otherwise negative [facility] Medical History (Updated 07/06/24 @ 23:16 by Obdulio Savage MD) Obesity ?E66.9 - Obesity, unspecified (ICD-10) PEPE (obstructive sleep apnea) ?G47.33 - Obstructive sleep apnea (adult) (pediatric) (ICD-10) DM2 (diabetes mellitus, type 2) ?E11.9 - Type 2 diabetes mellitus without complications (ICD-10) Cigarette nicotine dependence with nicotine-induced disorder ?F17.219 - Nicotine dependence, cigarettes, with unspecified nicotine-induced disorders (ICD-10) Bipolar 2 disorder ?F31.81 - Bipolar II disorder (ICD-10) Acute respiratory failure with hypercapnia ?J96.02 - Acute respiratory failure with hypercapnia (ICD-10) Oral candidiasis ?B37.0 - Candidal stomatitis (ICD-10) SALVADOR (generalized anxiety disorder) ?F41.1 - Generalized anxiety disorder (ICD-10) Hyperchloremia ?E87.8 - Other disorders of electrolyte and fluid balance, not elsewhere classified (ICD-10) Hospital-acquired pneumonia ?J18.9 - Pneumonia, unspecified organism (ICD-10) ?Y95 - Nosocomial condition (ICD-10) Community acquired pneumonia ?J18.9 - Pneumonia, unspecified organism (ICD-10) Acute exacerbation of chronic obstructive pulmonary disease (COPD) ?J44.1 - Chronic obstructive pulmonary disease with (acute) exacerbation (ICD-10) COPD exacerbation ?J44.1 - Chronic obstructive pulmonary disease with (acute) exacerbation (ICD-10) Cavitary pneumonia ?J18.9 - Pneumonia, unspecified organism (ICD-10) ?J98.4 - Other disorders of lung (ICD-10) Acute viral syndrome ?B34.9 - Viral infection, unspecified (ICD-10) Acute chest wall pain ?R07.89 - Other chest pain (ICD-10) Enterovirus infection ?B34.1 - Enterovirus infection, unspecified (ICD-10) Tobacco abuse counseling ?Z71.6 - Tobacco abuse counseling (ICD-10) Contusion of left knee ?S80.02XA - Contusion of left knee, initial encounter (ICD-10) Acute hypokalemia ?E87.6 - Hypokalemia (ICD-10) Vasovagal syncope ?R55 - Syncope and collapse (ICD-10) Acute and chronic respiratory failure with hypercapnia ?J96.22 - Acute and chronic respiratory failure with hypercapnia (ICD-10) Respiratory failure ?J96.90 - Respiratory failure, unspecified, unspecified whether with hypoxia or hypercapnia (ICD-10) Smoker ?F17.200 - Nicotine dependence, unspecified, uncomplicated (ICD-10) HLD (hyperlipidemia) ?E78.5 - Hyperlipidemia, unspecified (ICD-10) HTN (hypertension) ?I10 - Essential (primary) hypertension (ICD-10) Social History Smoking status: Current every day smoker Little interest or pleasure in doing things: not at all Feeling down, depressed, or hopeless: not at all Exam Narrative Exam Narrative: Nurses note and vital signs reviewed and patient is not hypoxic. General: The patient appears drowsy but alert and answers appropriately Skin: Warm, dry, no pallor noted. There is no rash noted. Head: Normocephalic, atraumatic Eye: Normal conjunctiva, no drainage, EOMI. PERRL Ears, Nose, Mouth, and Throat: oral mucosa is moist. Nares patent. Mouth without vesicles. Ear canals patent. Tm's without Erythema Cardiovascular: Regular Rate and Rhythm Respiratory: Patient is in no distress, no accessory muscle use, lungs are clear to auscultation, no wheezing, rales or rhonchi Back: non-tender, no CVA tenderness bilaterally to percussion. GI: Normal bowel sounds, no tenderness to palpation, no masses appreciated. No rebound, guarding, or rigidity noted. Musculoskeletal: equal bilat upper and lower extremity strength, The patient has no evidence of calf tenderness, no pitting edema, symmetrical pulses noted bilaterally Neurological: A&O x3 slurred Psychiatric: Cooperative Constitutional Vital Signs, click to edit/add: Last Vital Signs Temp 97.4 F L 07/06/24 19:48 Pulse 91 H 07/06/24 23:10 Resp 18 07/06/24 23:10 BP 121/91 07/06/24 23:00 Pulse Ox 94 L 07/06/24 22:00 O2 Del Method Room Air 07/06/24 19:48 Course Vital Signs Vital signs: Vital Signs Pulse Oximetry 96 07/06/24 19:45 Temperature 97.4 F L 07/06/24 19:48 Pulse Rate 91 H 07/06/24 23:10 Respiratory Rate 18 07/06/24 23:10 Blood Pressure 121/91 07/06/24 23:00 Pulse Oximetry 94 L 07/06/24 22:00 Oxygen Delivery Method Room Air 07/06/24 19:48 Medical Decision Making MDM Narrative Medical decision making narrative: 49-year-old female presents to the emergency room chief complaint of drowsiness, slurred speech. Patient's mother brought patient in for evaluation. Patient started a new medication on June 29 of amitriptyline. Patient also takes Ativan. Mom states she was concerned she may have taken too many as she has been drowsy. 20 she called her today she sounded drowsy and had slurred speech. Patient is alert and oriented this time. She does appear fatigued, drowsy. She denies any suicidal homicidal ideation. She has no other strokelike symptoms. Initial glucose One Touch upon arrival to the emergency room was 200. She states she is a diabetic and a history of COPD. Denies suicidal homicidal ideation.-Amitriptyline for sleep. transition of care to Dr Savage Differential Diagnosis Differential Diagnosis: cva, medication reaction Medical Records Medical records reviewed: Yes I reviewed the patient's medical records Medical records narrative: transfer of care to DR Savage Lab Data Lab results reviewed: Yes I reviewed the patient's lab results Labs: Lab Results 07/06/24 07/06/24 07/06/24 Range/Units 19:45 19:50 21:40 WBC 12.8 H (4.0-11.0) 10^3/uL RBC 4.60 (4.20-5.40) 10^6/uL Hgb 15.0 (12.0-16.0) g/dL Hct 44.7 (36.0-48.0) % MCV 97.2 (81.0-99.0) fL MCH 32.6 (26.7-34.0) pg MCHC 33.6 (29.9-35.2) g/dL RDW 15.0 (11.0-15.0) % Plt Count 349 (150-450) 10^3/uL MPV 9.6 (9.5-13.5) fL Neut % (Auto) 74.1 (43.0-75.0) % Lymph % (Auto) 17.8 L (20.5-60.0) % [place] % (Auto) 5.5 (1.7-12.0) % Eos % (Auto) 1.3 (0.9-7.0) % Baso % (Auto) 0.6 (0.2-2.0) % Neut # (Auto) 9.5 H (1.4-6.5) 10^3/uL Lymph # (Auto) 2.3 (1.2-3.8) 10^3/uL [place] # (Auto) 0.7 (0.3-0.8) 10^3/uL Eos # (Auto) 0.2 (0.0-0.7) 10^3/uL Baso # (Auto) 0.1 (0.0-0.1) 10^3/uL Abs Immat Gran (auto) 0.09 H (0.00-0.03) 10^3/uL Imm/Tot Granulo (auto) 0.7 H (0.0-0.5) % PT 9.8 (9.0-11.6) sec INR <0.93 Sodium 137 (136-145) mmol/L Potassium 3.8 (3.5-5.1) mmol/L Chloride 101 (98-107) mmol/L Carbon Dioxide 23.2 (21.0-32.0) mmol/L Anion Gap 16.6 BUN 10.0 (7.0-18.0) mg/dL Creatinine 1.20 H (0.55-1.02) mg/dL Est GFR ( Amer) 58 L (>=60 mL/min/1.73m^2) Est GFR (Non-Af Amer) 48 L (>=60 mL/min/1.73m^2) BUN/Creatinine Ratio 8.3 Glucose 219 H (74-106) mg/dL Lactate 2.6 H* 1.6 (0.4-2.0) mmol/L Calcium 7.9 L (8.5-10.1) mg/dL Total Bilirubin 0.3 (0.2-1.0) mg/dL AST 12 L (15-37) U/L ALT 12 L (14-59) U/L Alkaline Phosphatase 86 (46-116) U/L Ammonia (11-32) umol/L Troponin I High Sens 7.0 (4.0-51.3) pg/mL NT-Pro-B Natriuret Pep 42.0 (<=900.0) pg/mL Total Protein 6.3 L (6.4-8.2) g/dL Albumin 3.0 L (3.4-5.0) g/dL Globulin 3.3 g/dL Albumin/Globulin Ratio 0.9 Urine Color (YELLOW) Urine Clarity (CLEAR) Urine pH (5.0-9.0) Ur Specific [place] (1.005-1.025) Urine Protein (NEG/TRACE) mg/dL Urine Glucose (UA) (NEGATIVE) mg/dL Urine Ketones (NEGATIVE) mg/dL Urine Occult Blood (NEGATIVE) Urine Nitrite (NEGATIVE) Urine Bilirubin (NEGATIVE) Urine Urobilinogen (0.2-1.0) EU/dL Ur Leukocyte Esterase (NEGATIVE) Urine RBC (0-2) #/HPF Urine WBC (NONE SEEN) #/HPF Ur Squamous Epith Cells (NONE/RARE) #/LPF Urine Crystals (None Seen) #/HPF Urine Bacteria (NONE SEEN) #/HPF Urine Casts (NONE SEEN) #/LPF Urine Mucus (NONE SEEN) Urine Yeast (NONE SEEN) Ur Culture Indicated? Salicylates 7.9 (<=19.9) mg/dL Urine Opiates Screen (NEGATIVE) Ur Buprenorphine Scrn (NEGATIVE) Ur Oxycodone Screen (NEGATIVE) Urine Methadone Screen (NEGATIVE) Acetaminophen <2.0 L (10.0-30.0) ug/mL Ur Barbiturates Screen (NEGATIVE) U Tricyclic Antidepress (NEGATIVE) Ur Phencyclidine Scrn (NEGATIVE) Ur Amphetamines Screen (NEGATIVE) U Methamphetamines Scrn (NEGATIVE) U Benzodiazepines Scrn (NEGATIVE) Urine Cocaine Screen (NEGATIVE) U Cannabinoids Screen (NEGATIVE) Ethanol Quant <3 mg/dL POC Glucose 200 H (74-106) mg/dL 07/06/24 07/06/24 Range/Units 21:50 22:11 WBC (4.0-11.0) 10^3/uL RBC (4.20-5.40) 10^6/uL Hgb (12.0-16.0) g/dL Hct (36.0-48.0) % MCV (81.0-99.0) fL MCH (26.7-34.0) pg MCHC (29.9-35.2) g/dL RDW (11.0-15.0) % Plt Count (150-450) 10^3/uL MPV (9.5-13.5) fL Neut % (Auto) (43.0-75.0) % Lymph % (Auto) (20.5-60.0) % [place] % (Auto) (1.7-12.0) % Eos % (Auto) (0.9-7.0) % Baso % (Auto) (0.2-2.0) % Neut # (Auto) (1.4-6.5) 10^3/uL Lymph # (Auto) (1.2-3.8) 10^3/uL [place] # (Auto) (0.3-0.8) 10^3/uL Eos # (Auto) (0.0-0.7) 10^3/uL Baso # (Auto) (0.0-0.1) 10^3/uL Abs Immat Gran (auto) (0.00-0.03) 10^3/uL Imm/Tot Granulo (auto) (0.0-0.5) % PT (9.0-11.6) sec INR Sodium (136-145) mmol/L Potassium (3.5-5.1) mmol/L Chloride (98-107) mmol/L Carbon Dioxide (21.0-32.0) mmol/L Anion Gap BUN (7.0-18.0) mg/dL Creatinine (0.55-1.02) mg/dL Est GFR ( Amer) (>=60 mL/min/1.73m^2) Est GFR (Non-Af Amer) (>=60 mL/min/1.73m^2) BUN/Creatinine Ratio Glucose (74-106) mg/dL Lactate (0.4-2.0) mmol/L Calcium (8.5-10.1) mg/dL Total Bilirubin (0.2-1.0) mg/dL AST (15-37) U/L ALT (14-59) U/L Alkaline Phosphatase (46-116) U/L Ammonia 15 (11-32) umol/L Troponin I High Sens (4.0-51.3) pg/mL NT-Pro-B Natriuret Pep (<=900.0) pg/mL Total Protein (6.4-8.2) g/dL Albumin (3.4-5.0) g/dL Globulin g/dL Albumin/Globulin Ratio Urine Color Lt. yellow (YELLOW) Urine Clarity Clear (CLEAR) Urine pH 6.5 (5.0-9.0) Ur Specific [place] <=1.005 A (1.005-1.025) Urine Protein Negative (NEG/TRACE) mg/dL Urine Glucose (UA) >=1000 A (NEGATIVE) mg/dL Urine Ketones Negative (NEGATIVE) mg/dL Urine Occult Blood Negative (NEGATIVE) Urine Nitrite Negative (NEGATIVE) Urine Bilirubin Negative (NEGATIVE) Urine Urobilinogen 0.2 (0.2-1.0) EU/dL Ur Leukocyte Esterase Trace A (NEGATIVE) Urine RBC None seen (0-2) #/HPF Urine WBC 10-20 A (NONE SEEN) #/HPF Ur Squamous Epith Cells Moderate A (NONE/RARE) #/LPF Urine Crystals None seen (None Seen) #/HPF Urine Bacteria Small A (NONE SEEN) #/HPF Urine Casts None seen (NONE SEEN) #/LPF Urine Mucus Trace A (NONE SEEN) Urine Yeast Seen A (NONE SEEN) Ur Culture Indicated? Yes Salicylates (<=19.9) mg/dL Urine Opiates Screen Negative (NEGATIVE) Ur Buprenorphine Scrn Negative (NEGATIVE) Ur Oxycodone Screen Negative (NEGATIVE) Urine Methadone Screen Negative (NEGATIVE) Acetaminophen (10.0-30.0) ug/mL Ur Barbiturates Screen Negative (NEGATIVE) U Tricyclic Antidepress Positive A (NEGATIVE) Ur Phencyclidine Scrn Negative (NEGATIVE) Ur Amphetamines Screen Negative (NEGATIVE) U Methamphetamines Scrn Negative (NEGATIVE) U Benzodiazepines Scrn Positive A (NEGATIVE) Urine Cocaine Screen Negative (NEGATIVE) U Cannabinoids Screen Negative (NEGATIVE) Ethanol Quant mg/dL POC Glucose (74-106) mg/dL Imaging Data CT scan - head: Radiologist's impression: ITS Impressions Chest X-Ray 07/06/24 19:50 IMPRESSION: No acute cardiopulmonary findings. Electronically authenticated by: GERMAINE ROBERTS Date: 07/06/2024 22:[address] 07/06/24 19:51 IMPRESSION: No CT evidence of acute intracranial abnormality. Electronically authenticated by: GABE LEONE Date: 07/06/2024 20:47 ECG Data Interpretation: 2019 rhythm rate 85 bpm FL interval 192 ms QRS duration 96 ms, no ST elevation or depression, no stemi Discharge Plan Discharge Chief Complaint: Neuro Symptoms/Deficit Clinical Impression: Side effect of medication Patient Disposition: Home, Self-Care Time of Disposition Decision: 23:16 Condition: Good Mode of Transportation: Private Vehicle Prescriptions / Home Meds: No Action atorvastatin 40 mg tablet 40 mg PO DAILY CarlotrBiofuelbox Aerosphere 160-9-4.8 mcg/actuation HFA aerosol inhaler 1 inh INHALATION BID dapagliflozin propanediol [Farxiga] 10 mg tablet 10 mg PO DAILY gabapentin 800 mg tablet 800 mg PO TID ibuprofen 800 mg tablet 800 mg PO TID PRN (Reason: pain) insulin aspart U-100 [Novolog FlexPen U-100 Insulin] 100 unit/mL (3 mL) insulin pen 10 unit SUBCUT TIDWM Patient Comments: with sliding scale, max 50 units daily omeprazole 40 mg capsule,delayed release(DR/EC) 40 mg PO DAILY risperidone 1 mg tablet 1 mg PO BID tizanidine 4 mg tablet 4 mg PO TID PRN (Reason: muscle spasticity) roflumilast 250 mcg tablet 250 mcg PO DAILY insulin glargine [Basaglar KwikPen U-100 Insulin] 100 unit/mL (3 mL) insulin pen 30 unit SUBCUT QAM albuterol sulfate 90 mcg/actuation HFA aerosol inhaler 2 inh inhalation Q4H PRN (Reason: shortness of breath or wheezing) Qty: 8.5 0RF lorazepam [Ativan] 1 mg tablet 1 mg PO Q8H PRN (Reason: anxiety) 5 Days Qty: 15 0RF amitriptyline 25 mg tablet 25 mg PO PRN (Reason: insomnia) Print Language: Armenian Instructions: Adverse Drug Reaction (ED) Additional Instructions: Discontinue the amitriptyline. Speak to the prescribing physician. Referrals: Shaikh Cruz MD [Primary Care Provider] - 1 week Discharge Date/Time: 07/06/24 23:34 Documented by User: Obdulio Savage MD 07/06/24 23:21 HPI HPI - General Adult General Chief complaint: Neuro Symptoms/Deficit Stated complaint: allergic reaction Time Seen by Provider: 07/06/24 19:50 Related Data Home Medications ?Medication ?Instructions ?Recorded ?Confirmed atorvastatin 40 mg tablet 40 mg PO DAILY 03/07/23 07/06/24 budesonide 160 mcg-glycopyr 9 1 inh inhalation BID 03/07/23 07/06/24 mcg-formot 4.8 mcg/actuation HFA inhaler (Breztri Aerosphere) dapagliflozin propanediol 10 mg 10 mg PO DAILY 03/07/23 07/06/24 tablet (Farxiga) gabapentin 800 mg tablet 800 mg PO TID 03/07/23 07/06/24 ibuprofen 800 mg tablet 800 mg PO TID PRN pain 03/07/23 03/06/24 insulin aspart U-100 100 unit/mL 10 unit subcut TIDWM 03/07/23 07/06/24 (3 mL) subcutaneous pen (Novolog FlexPen U-100 Insulin aspart) omeprazole 40 mg capsule,delayed 40 mg PO DAILY 03/07/23 07/06/24 release risperidone 1 mg tablet 1 mg PO BID 03/07/23 07/06/24 tizanidine 4 mg tablet 4 mg PO TID PRN muscle spasticity 03/07/23 07/06/24 insulin glargine 100 unit/mL (3 30 unit subcut QAM 01/18/24 07/06/24 mL) subcutaneous pen (Basaglar KwikPen U-100 Insulin) roflumilast 250 mcg tablet 250 mcg PO DAILY 01/18/24 07/06/24 amitriptyline 25 mg tablet 25 mg PO PRN insomnia 07/06/24 Previous Rx's ?Medication ?Instructions ?Recorded albuterol sulfate 90 mcg/actuation 2 inh inhalation Q4H PRN shortness 01/25/24 aerosol inhaler of breath or wheezing #8.5 grams lorazepam 1 mg tablet (Ativan) 1 mg PO Q8H PRN anxiety 5 days #15 01/25/24 tabs Allergies Allergy/AdvReac Type Severity Reaction Status Date / Time sumatriptan (From Imitrex) Allergy Severe Hives Verified 07/06/24 19:53 Opioid HPI Opioid Management Most Recent Opioid Data: Last Pain Scale 3 01/26/24 13:46 01/26/24 Ur Phencyclidine Scrn Negative (NEGATIVE) 07/06/24 21:50 07/06/24 PFSH PFSH Medical History (Updated 07/06/24 @ 23:16 by Obdulio Savage MD) Obesity ?E66.9 - Obesity, unspecified (ICD-10) PEPE (obstructive sleep apnea) ?G47.33 - Obstructive sleep apnea (adult) (pediatric) (ICD-10) DM2 (diabetes mellitus, type 2) ?E11.9 - Type 2 diabetes mellitus without complications (ICD-10) Cigarette nicotine dependence with nicotine-induced disorder ?F17.219 - Nicotine dependence, cigarettes, with unspecified nicotine-induced disorders (ICD-10) Bipolar 2 disorder ?F31.81 - Bipolar II disorder (ICD-10) Acute respiratory failure with hypercapnia ?J96.02 - Acute respiratory failure with hypercapnia (ICD-10) Oral candidiasis ?B37.0 - Candidal stomatitis (ICD-10) SALVADOR (generalized anxiety disorder) ?F41.1 - Generalized anxiety disorder (ICD-10) Hyperchloremia ?E87.8 - Other disorders of electrolyte and fluid balance, not elsewhere classified (ICD-10) Hospital-acquired pneumonia ?J18.9 - Pneumonia, unspecified organism (ICD-10) ?Y95 - Nosocomial condition (ICD-10) Community acquired pneumonia ?J18.9 - Pneumonia, unspecified organism (ICD-10) Acute exacerbation of chronic obstructive pulmonary disease (COPD) ?J44.1 - Chronic obstructive pulmonary disease with (acute) exacerbation (ICD-10) COPD exacerbation ?J44.1 - Chronic obstructive pulmonary disease with (acute) exacerbation (ICD-10) Cavitary pneumonia ?J18.9 - Pneumonia, unspecified organism (ICD-10) ?J98.4 - Other disorders of lung (ICD-10) Acute viral syndrome ?B34.9 - Viral infection, unspecified (ICD-10) Acute chest wall pain ?R07.89 - Other chest pain (ICD-10) Enterovirus infection ?B34.1 - Enterovirus infection, unspecified (ICD-10) Tobacco abuse counseling ?Z71.6 - Tobacco abuse counseling (ICD-10) Contusion of left knee ?S80.02XA - Contusion of left knee, initial encounter (ICD-10) Acute hypokalemia ?E87.6 - Hypokalemia (ICD-10) Vasovagal syncope ?R55 - Syncope and collapse (ICD-10) Acute and chronic respiratory failure with hypercapnia ?J96.22 - Acute and chronic respiratory failure with hypercapnia (ICD-10) Respiratory failure ?J96.90 - Respiratory failure, unspecified, unspecified whether with hypoxia or hypercapnia (ICD-10) Smoker ?F17.200 - Nicotine dependence, unspecified, uncomplicated (ICD-10) HLD (hyperlipidemia) ?E78.5 - Hyperlipidemia, unspecified (ICD-10) HTN (hypertension) ?I10 - Essential (primary) hypertension (ICD-10) Social History Smoking status: Current every day smoker Little interest or pleasure in doing things: not at all Feeling down, depressed, or hopeless: not at all Exam Constitutional Vital Signs, click to edit/add: Last Vital Signs Temp 97.4 F L 07/06/24 19:48 Pulse 91 H 07/06/24 23:10 Resp 18 07/06/24 23:10 BP 121/91 07/06/24 23:00 Pulse Ox 94 L 07/06/24 22:00 O2 Del Method Room Air 07/06/24 19:48 Course Vital Signs Vital signs: Vital Signs Pulse Oximetry 96 07/06/24 19:45 Temperature 97.4 F L 07/06/24 19:48 Pulse Rate 91 H 07/06/24 23:10 Respiratory Rate 18 07/06/24 23:10 Blood Pressure 121/91 07/06/24 23:00 Pulse Oximetry 94 L 07/06/24 22:00 Oxygen Delivery Method Room Air 07/06/24 19:48 Medical Decision Making MDM Narrative Medical decision making narrative: 49-year-old female presents to the emergency room chief complaint of drowsiness, slurred speech. Patient's mother brought patient in for evaluation. Patient started a new medication on June 29 of amitriptyline. Patient also takes Ativan. Mom states she was concerned she may have taken too many as she has been drowsy. 20 she called her today she sounded drowsy and had slurred speech. Patient is alert and oriented this time. She does appear fatigued, drowsy. She denies any suicidal homicidal ideation. She has no other strokelike symptoms. Initial glucose One Touch upon arrival to the emergency room was 200. She states she is a diabetic and a history of COPD. Denies suicidal homicidal ideation.-Amitriptyline for sleep. transition of care to Dr Janette HARDWICK 11:20 PM extensive workup here is negative including CT of her head. She is greatly improved in terms of her symptoms and is ambulatory without difficulty and she is being discharged home. She will discontinue the amitriptyline and speak to her prescribing physician. Findings were discussed thoroughly with the patient. Lab Data Labs: Lab Results 07/06/24 07/06/24 07/06/24 Range/Units 19:45 19:50 21:40 WBC 12.8 H (4.0-11.0) 10^3/uL RBC 4.60 (4.20-5.40) 10^6/uL Hgb 15.0 (12.0-16.0) g/dL Hct 44.7 (36.0-48.0) % MCV 97.2 (81.0-99.0) fL MCH 32.6 (26.7-34.0) pg MCHC 33.6 (29.9-35.2) g/dL RDW 15.0 (11.0-15.0) % Plt Count 349 (150-450) 10^3/uL MPV 9.6 (9.5-13.5) fL Neut % (Auto) 74.1 (43.0-75.0) % Lymph % (Auto) 17.8 L (20.5-60.0) % [place] % (Auto) 5.5 (1.7-12.0) % Eos % (Auto) 1.3 (0.9-7.0) % Baso % (Auto) 0.6 (0.2-2.0) % Neut # (Auto) 9.5 H (1.4-6.5) 10^3/uL Lymph # (Auto) 2.3 (1.2-3.8) 10^3/uL [place] # (Auto) 0.7 (0.3-0.8) 10^3/uL Eos # (Auto) 0.2 (0.0-0.7) 10^3/uL Baso # (Auto) 0.1 (0.0-0.1) 10^3/uL Abs Immat Gran (auto) 0.09 H (0.00-0.03) 10^3/uL Imm/Tot Granulo (auto) 0.7 H (0.0-0.5) % PT 9.8 (9.0-11.6) sec INR <0.93 Sodium 137 (136-145) mmol/L Potassium 3.8 (3.5-5.1) mmol/L Chloride 101 (98-107) mmol/L Carbon Dioxide 23.2 (21.0-32.0) mmol/L Anion Gap 16.6 BUN 10.0 (7.0-18.0) mg/dL Creatinine 1.20 H (0.55-1.02) mg/dL Est GFR ( Amer) 58 L (>=60 mL/min/1.73m^2) Est GFR (Non-Af Amer) 48 L (>=60 mL/min/1.73m^2) BUN/Creatinine Ratio 8.3 Glucose 219 H (74-106) mg/dL Lactate 2.6 H* 1.6 (0.4-2.0) mmol/L Calcium 7.9 L (8.5-10.1) mg/dL Total Bilirubin 0.3 (0.2-1.0) mg/dL AST 12 L (15-37) U/L ALT 12 L (14-59) U/L Alkaline Phosphatase 86 (46-116) U/L Ammonia (11-32) umol/L Troponin I High Sens 7.0 (4.0-51.3) pg/mL NT-Pro-B Natriuret Pep 42.0 (<=900.0) pg/mL Total Protein 6.3 L (6.4-8.2) g/dL Albumin 3.0 L (3.4-5.0) g/dL Globulin 3.3 g/dL Albumin/Globulin Ratio 0.9 Urine Color (YELLOW) Urine Clarity (CLEAR) Urine pH (5.0-9.0) Ur Specific [place] (1.005-1.025) Urine Protein (NEG/TRACE) mg/dL Urine Glucose (UA) (NEGATIVE) mg/dL Urine Ketones (NEGATIVE) mg/dL Urine Occult Blood (NEGATIVE) Urine Nitrite (NEGATIVE) Urine Bilirubin (NEGATIVE) Urine Urobilinogen (0.2-1.0) EU/dL Ur Leukocyte Esterase (NEGATIVE) Urine RBC (0-2) #/HPF Urine WBC (NONE SEEN) #/HPF Ur Squamous Epith Cells (NONE/RARE) #/LPF Urine Crystals (None Seen) #/HPF Urine Bacteria (NONE SEEN) #/HPF Urine Casts (NONE SEEN) #/LPF Urine Mucus (NONE SEEN) Urine Yeast (NONE SEEN) Ur Culture Indicated? Salicylates 7.9 (<=19.9) mg/dL Urine Opiates Screen (NEGATIVE) Ur Buprenorphine Scrn (NEGATIVE) Ur Oxycodone Screen (NEGATIVE) Urine Methadone Screen (NEGATIVE) Acetaminophen <2.0 L (10.0-30.0) ug/mL Ur Barbiturates Screen (NEGATIVE) U Tricyclic Antidepress (NEGATIVE) Ur Phencyclidine Scrn (NEGATIVE) Ur Amphetamines Screen (NEGATIVE) U Methamphetamines Scrn (NEGATIVE) U Benzodiazepines Scrn (NEGATIVE) Urine Cocaine Screen (NEGATIVE) U Cannabinoids Screen (NEGATIVE) Ethanol Quant <3 mg/dL POC Glucose 200 H (74-106) mg/dL 07/06/24 07/06/24 Range/Units 21:50 22:11 WBC (4.0-11.0) 10^3/uL RBC (4.20-5.40) 10^6/uL Hgb (12.0-16.0) g/dL Hct (36.0-48.0) % MCV (81.0-99.0) fL MCH (26.7-34.0) pg MCHC (29.9-35.2) g/dL RDW (11.0-15.0) % Plt Count (150-450) 10^3/uL MPV (9.5-13.5) fL Neut % (Auto) (43.0-75.0) % Lymph % (Auto) (20.5-60.0) % [place] % (Auto) (1.7-12.0) % Eos % (Auto) (0.9-7.0) % Baso % (Auto) (0.2-2.0) % Neut # (Auto) (1.4-6.5) 10^3/uL Lymph # (Auto) (1.2-3.8) 10^3/uL [place] # (Auto) (0.3-0.8) 10^3/uL Eos # (Auto) (0.0-0.7) 10^3/uL Baso # (Auto) (0.0-0.1) 10^3/uL Abs Immat Gran (auto) (0.00-0.03) 10^3/uL Imm/Tot Granulo (auto) (0.0-0.5) % PT (9.0-11.6) sec INR Sodium (136-145) mmol/L Potassium (3.5-5.1) mmol/L Chloride (98-107) mmol/L Carbon Dioxide (21.0-32.0) mmol/L Anion Gap BUN (7.0-18.0) mg/dL Creatinine (0.55-1.02) mg/dL Est GFR ( Amer) (>=60 mL/min/1.73m^2) Est GFR (Non-Af Amer) (>=60 mL/min/1.73m^2) BUN/Creatinine Ratio Glucose (74-106) mg/dL Lactate (0.4-2.0) mmol/L Calcium (8.5-10.1) mg/dL Total Bilirubin (0.2-1.0) mg/dL AST (15-37) U/L ALT (14-59) U/L Alkaline Phosphatase (46-116) U/L Ammonia 15 (11-32) umol/L Troponin I High Sens (4.0-51.3) pg/mL NT-Pro-B Natriuret Pep (<=900.0) pg/mL Total Protein (6.4-8.2) g/dL Albumin (3.4-5.0) g/dL Globulin g/dL Albumin/Globulin Ratio Urine Color Lt. yellow (YELLOW) Urine Clarity Clear (CLEAR) Urine pH 6.5 (5.0-9.0) Ur Specific [place] <=1.005 A (1.005-1.025) Urine Protein Negative (NEG/TRACE) mg/dL Urine Glucose (UA) >=1000 A (NEGATIVE) mg/dL Urine Ketones Negative (NEGATIVE) mg/dL Urine Occult Blood Negative (NEGATIVE) Urine Nitrite Negative (NEGATIVE) Urine Bilirubin Negative (NEGATIVE) Urine Urobilinogen 0.2 (0.2-1.0) EU/dL Ur Leukocyte Esterase Trace A (NEGATIVE) Urine RBC None seen (0-2) #/HPF Urine WBC 10-20 A (NONE SEEN) #/HPF Ur Squamous Epith Cells Moderate A (NONE/RARE) #/LPF Urine Crystals None seen (None Seen) #/HPF Urine Bacteria Small A (NONE SEEN) #/HPF Urine Casts None seen (NONE SEEN) #/LPF Urine Mucus Trace A (NONE SEEN) Urine Yeast Seen A (NONE SEEN) Ur Culture Indicated? Yes Salicylates (<=19.9) mg/dL Urine Opiates Screen Negative (NEGATIVE) Ur Buprenorphine Scrn Negative (NEGATIVE) Ur Oxycodone Screen Negative (NEGATIVE) Urine Methadone Screen Negative (NEGATIVE) Acetaminophen (10.0-30.0) ug/mL Ur Barbiturates Screen Negative (NEGATIVE) U Tricyclic Antidepress Positive A (NEGATIVE) Ur Phencyclidine Scrn Negative (NEGATIVE) Ur Amphetamines Screen Negative (NEGATIVE) U Methamphetamines Scrn Negative (NEGATIVE) U Benzodiazepines Scrn Positive A (NEGATIVE) Urine Cocaine Screen Negative (NEGATIVE) U Cannabinoids Screen Negative (NEGATIVE) Ethanol Quant mg/dL POC Glucose (74-106) mg/dL Imaging Data CT scan - head: Radiologist's impression: ITS Impressions Chest X-Ray 07/06/24 19:50 IMPRESSION: No acute cardiopulmonary findings. Electronically authenticated by: GERMAINE ROBERTS Date: 07/06/2024 22:[address] 07/06/24 19:51 IMPRESSION: No CT evidence of acute intracranial abnormality. Electronically authenticated by: GABE LEONE Date: 07/06/2024 20:47 ECG Data Attestation: I personally reviewed and interpreted this ECG as follows: (EKG on my interpretation shows sinus rhythm with rate of 95.) Discharge Plan Discharge Chief Complaint: Neuro Symptoms/Deficit Clinical Impression: Side effect of medication Patient Disposition: Home, Self-Care Time of Disposition Decision: 23:16 Condition: Good Mode of Transportation: Private Vehicle Prescriptions / Home Meds: No Action atorvastatin 40 mg tablet 40 mg PO DAILY Breztri Aerosphere 160-9-4.8 mcg/actuation HFA aerosol inhaler 1 inh INHALATION BID dapagliflozin propanediol [Farxiga] 10 mg tablet 10 mg PO DAILY gabapentin 800 mg tablet 800 mg PO TID ibuprofen 800 mg tablet 800 mg PO TID PRN (Reason: pain) insulin aspart U-100 [Novolog FlexPen U-100 Insulin] 100 unit/mL (3 mL) insulin pen 10 unit SUBCUT TIDWM Patient Comments: with sliding scale, max 50 units daily omeprazole 40 mg capsule,delayed release(DR/EC) 40 mg PO DAILY risperidone 1 mg tablet 1 mg PO BID tizanidine 4 mg tablet 4 mg PO TID PRN (Reason: muscle spasticity) roflumilast 250 mcg tablet 250 mcg PO DAILY insulin glargine [Basaglar KwikPen U-100 Insulin] 100 unit/mL (3 mL) insulin pen 30 unit SUBCUT QAM albuterol sulfate 90 mcg/actuation HFA aerosol inhaler 2 inh inhalation Q4H PRN (Reason: shortness of breath or wheezing) Qty: 8.5 0RF lorazepam [Ativan] 1 mg tablet 1 mg PO Q8H PRN (Reason: anxiety) 5 Days Qty: 15 0RF amitriptyline 25 mg tablet 25 mg PO PRN (Reason: insomnia) Print Language: Armenian Instructions: Adverse Drug Reaction (ED) Additional Instructions: Discontinue the amitriptyline. Speak to the prescribing physician. Referrals: Shaikh Cruz MD [Primary Care Provider] - 1 week Discharge Date/Time: 07/06/24 23:34
[2024-07-06 20:16] LABS: Prothrombin Time 9.8 sec (9.0-11.6)
[2024-07-06 20:21] LABS: INR <0.93
[2024-07-06 20:26] LABS: Alanine Aminotransferase 12 U/L (14-59); Albumin Globulin Ratio 0.9; Alkaline Phosphatase 86 U/L (46-116); Anion Gap 16.6; Aspartate Amino Transferase 12 U/L (15-37); BUN Creatinine Ratio 8.3; Bilirubin Total 0.3 mg/dL (0.2-1.0); Calcium 7.9 mg/dL (8.5-10.1); Carbon Dioxide 23.2 mmol/L (21.0-32.0); Chloride 101 mmol/L (98-107); Estimated GFR (African America 58 (>=60 mL/min/1.73m^2); Estimated GFR (Non-African Ame 48 (>=60 mL/min/1.73m^2); Globulin 3.3 g/dL; Glucose 219 mg/dL (74-106); Potassium 3.8 mmol/L (3.5-5.1); Sodium 137 mmol/L (136-145); Total Protein 6.3 g/dL (6.4-8.2)
[2024-07-06 20:31] LABS: Lactate/Lactic Acid 2.6 mmol/L (0.4-2.0)
[2024-07-06 20:44] LABS: Acetaminophen <2.0 ug/mL (10.0-30.0); Ethanol <3 mg/dL
[2024-07-06 20:48] LABS: Salicylate 7.9 mg/dL (<=19.9)
--- NOTE | 2024-07-06 20:49 | PC.NURSE ---
20:15 Poison Control called talked with Miryam
[2024-07-06 22:01] LABS: Bilirubin Urine NEGATIVE (NEGATIVE); Blood Urine NEGATIVE (NEGATIVE); Clarity Urine CLEAR (CLEAR); Color Urine LT. YELLOW (YELLOW); Glucose Urine UA >=1000 mg/dL (NEGATIVE); Ketones Urine NEGATIVE (NEGATIVE); Leukocyte Esterase Urine TRACE (NEGATIVE); Nitrite Urine NEGATIVE (NEGATIVE); Protein Urine NEGATIVE (NEG/TRACE); Specific Gravity Urine <=1.005 (1.005-1.025); Urobilinogen Urine 0.2 EU/dL (0.2-1.0); pH Urine 6.5 (5.0-9.0)
[2024-07-06 22:10] LABS: Bacteria Urine SMALL #/HPF (NONE SEEN); Cast Seen? NONE SEEN #/LPF (NONE SEEN); Crystals Seen? None Seen #/HPF (None Seen); Mucus Urine TRACE (NONE SEEN); RBC Urine NONE SEEN #/HPF (0-2); Squamous Epithelial Cell Urine MODERATE #/LPF (NONE/RARE); Urine Culture Indicated YES
[2024-07-06 22:11] LABS: Amphetamine Screen Urine NEGATIVE (NEGATIVE); Barbiturates Screen Urine NEGATIVE (NEGATIVE); Benzodiazepines Screen Urine POSITIVE (NEGATIVE); Buprenorphine Screen Urine NEGATIVE (NEGATIVE); Cannabinoid Screen Urine NEGATIVE (NEGATIVE); Cocaine Screen Urine NEGATIVE (NEGATIVE); Methadone Screen Urine NEGATIVE (NEGATIVE); Methamphetamines Screen Urine NEGATIVE (NEGATIVE); Opiate Screen Urine NEGATIVE (NEGATIVE); Oxycodone Screen Urine NEGATIVE (NEGATIVE); Phencyclidine Screen Urine NEGATIVE (NEGATIVE); Tricyclic Antidepressant Urine POSITIVE (NEGATIVE)
[2024-07-06 22:16] LABS: Lactate/Lactic Acid 1.6 mmol/L (0.4-2.0)
[2024-07-06 22:28] LABS: Ammonia 15 umol/L (11-32)
--- NOTE | 2024-07-06 22:35 | ECG_ITS ---
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
== END 2024-07-06 23:34 | disposition home or self-care (01) ==
PROVIDERS: Physician Assistant; Emergency Provider Emergency Medicine; PCP Internal Medicine
DX: R40.0 Somnolence (principal); T43.015A Adverse effect of tricyclic antidepressants, initial encounter; E11.9 Type 2 diabetes mellitus without complications; J44.9 Chronic obstructive pulmonary disease, unspecified; Z79.4 Long term (current) use of insulin; F17.200 Nicotine dependence, unspecified, uncomplicated; R82.998 Other abnormal findings in urine; Z79.899 Other long term (current) drug therapy
CPT/HCPCS: 36415; 70450; 71045; 80053; 80179; 80307; 80320; 80329; 81001; 82140; 83605; 83880; 84484; 85025; 85610; 87086; 93005; 99285

== ENCOUNTER 2025-01-26 20:42 | Emergency (ER) | payer MEDICARE, SELFPAY ==
[2025-01-26 20:47] VITALS: BP 132/91; PULSE 84; TEMP 36.6; O2SAT 96; BMI 31.9
--- OUTSIDE RECORDS SUMMARY | 2025-01-26 20:50 | XMS_ITS | CCD ---
Author Organization [facility] Care Team Providers Care Supervisor [employer] Name Role Phone Walker Alba Attending Provider [phone] Audi Hdez Primary Care Provider PROVIDER, UNKNOWN [...] STEPHANIE PATTERSON Admitting Unavailable MARCELA ., MR RY Consulting Unavailable STEPHANIE PATTERSON Attending Unavailable YASMIN [...] Unavailable FAWWAD, STEPHENS H Primary Care Unavailable KERRI HENDERSON Admitting Unavailable BUD, DR GERMAINE Adams Consulting Unavailable SANTIAGO KERRI Attending Unavailable SANTIAGO, KERRI Consulting Unavailable GABRIELLEKOAMILCAR Attending Unavailable FAWWAD, STEPHENS H Primary Care Unavailable BUD, DR GERMAINE Adams Consulting Unavailable AMILCAR SANDERS Admitting Unavailable AMILCAR SANDERS Consulting Unavailable LIVIA, DR VICK Adams Consulting Unavailable LIVIA, DR VICK Adams Attending Unavailable LIVIA, DR VICK Adams Admitting Unavailable FAWWAD, STEPHENS H Primary Care Unavailable FAWWAD, STEPHENS H Primary Care Unavailable PAY ., DR ZAPATA Attending Unavailable GOSHEN, DR SHAJI Osborn Consulting Unavailable PAY ., DR ZAPATA Admitting Unavailable PAY ., DR ZAPATA Consulting Unavailable SAVITA ., CHRISTIANE Consulting Unavailable FAWWAD, STEPHENS H Primary Care Unavailable JENNY, DR YASMIN Cortes Attending Unavailsanthosh ALVARADO, DR YASMIN Cortes Consulting Unavailsanthosh ALVARADO, DR YASMIN Cortes Admitting Unavailsanthosh FARRELL, DR GERMAINE Adams Consulting Unavailable Alberto, Katie Unavailable Corey Errol Unavailable MD Joyce Cruz Primary Care Provider DO Lavell Salazar Emergency Provider MD Eron Wood Admit Provider MD Errol Nicole Other Provider MD Valeriano Horta Other Provider DO Krunal Kelly Attending Provider [phone] MD Valeriano Horta Attending Provider Courtney Valladares Unavailable MD [facility] Primary Care Provider [phone] MD Valeriano Horta Attending Provider FAVIO Villeda Emergency Provider MD [facility] Primary Care Provider [phone] MD Yasmin Leung Emergency Provider SHANTI Marcum Emergency Provider MD Errol Nicole Attending Provider [phone] Bambi Delgado Unavailable [facility] [phone] [facility] Marilee Marcum Admitting Unavailable Marilee Marcum Attending Unavailable [facility] Primary Care Unavailable Corey Kamal Admitting Unavailable Errol Nicole Attending Unavailable [facility] Primary [facility] Unavailable Valeriano Horta Admitting Unavailable Valeriano Horta Attending Unavailable [facility] Primary Care Unavailable Krunal Kelly Attending Unavailabl e Eron Wood Admitting Unavailable Corey Kamal Consulting Unavailable [facility] Primary [facility] Unavailable Valeriano Horta Consulting Unavailable [facility] Primary Care Unavailable Elio Villead Admitting Unavailable Elio Villeda Attending Unavailable Yasmin Leung Admitting Unavailable Yasmin Leung Attending Unavailable [facility] Primary Care Unavailable AUDI HDEZ Primary Care Unavailable [facility] Provider Unallocated , [place] Provider Primary Care Provi radha Susanna HARDY, Denisse Unavailable Guillermina MASTERS, Sameer Primary Care Provider Anthony MASTERS, Primary Care Provider Unallocated , [place] Provider Primary Care Provi radha Tylor Taylor DO Primary Care Provider Sandy MASTERS, Bambi Unavailable Marvin Wang MD Unavailable Sandy MASTERS, Bambi Unavailable MARVIN WANG Attending Unavailable PAVLOCK, MAX L Referring Unavailable PAVLOCK, MAX L Primary Care Unavailable KAELA, MARVIN Mckeon Attending Unavailable PAVLOCK, MAX L Referring Unavailable PAVLOCK, MAX L Primary Care Unavailable MARVIN WANG Attending Unavailable PAVLOCK, MAX L Referring Unavailable PAVLOCK, MAX L Primary Care Unavailable KAELAMARVIN Attending Unavailable PAVLOCK, MAX L Referring Unavailable PAVLOCK, MAX L Primary Care Unavailable TYLOR TAYLOR Attending Unavailable TYLOR TAYLOR Referring Unavailable GABBIE WALLACE Attending Unavailable GABBIE WALLACE Referring Unavailable SHAIKH CRUZ Attending Unavailable YONATHAN MILLS Attending Unavailable DENISSE MULLINS Attending Unavailabl e YONATHAN MILLS Attending Unavailable DENISSE MULLINS Attending Unavailabl e Allergies Allergy Classification Reported Allergen(s) Allergy Type Date of Onset Reaction(s) Facility Serotonin-1b and Serotonin-1d Receptor Agonists (4 sources) SUMAtriptan Drug Allergy 1 [facility] (1 source) Plasmin Drug Allergy 6 [facility] (20 sources) SUMAtriptan Drug Allergy 3 shortness of breath, Anxiety [facility] (1 source) SUMAtriptan Drug Allergy 4 [facility] Repository (1 source) SUMAtriptan; Translations: [SUMATRIPTAN SUCCINATE] Drug Allergy 0 [facility] Repository Medications Current Medications Medication Drug Class(es) Dates Sig (Normalized) Sig (Original) albuterol 0.83 mg/ml inhalation solution (20 sources) beta2-Adrenergic Agonist Start: 11-04-2023 albuterol (2.5 MG/3ML) 0.083% nebulizer solution Indications: COPD with acute exacerbation (CMS/HCC) , Centrilobular emphysema (CMS/HCC) Take 3 mL (2.5 mg) by nebulization every 4 (four) hours if needed for wheezing 75 mL 11/04/2023 Active Start: 09-06-2023 End: 10-06-2023 take 2 puff(s) by inhalation every four hours for wheezing albuterol HFA 90 mcg/act inhaler Indications: Acute bronchitis due to other specified organisms Inhale 2 puffs every 4 (four) hours if needed for wheezing or shortness of breath 6.7 g 1 09/06/2023 Active Start: 06-20-2023 take 2 puff(s) by [...] hrs Active atorvastatin 40 mg oral tablet (20 sources) HMG-CoA Reductase Inhibitor Start: 12-21-2024 take 1 tablet by mouth once daily atorvastatin (Lipitor) 40 MG tablet Indications: Hyperlipidemia, unspecified hyperlipidemia type (CMS/HCC) Take 1 tablet (40 mg) by mouth Daily 90 tablet 12/21/2024 Active Start: 10-28-2023 End: 08-01-2024 take 1 tablet by mouth once daily atorvastatin (Lipitor) 40 MG tablet Indications: Hyperlipidemia, unspecified hyperlipidemia type (CMS/HCC) Take 1 tablet (40 mg) by mouth Daily 90 tablet 08/01/2024 Active Start: 03-10-2023 take 40 mg by mouth once daily Atorvastatin Active 40 MG PO Daily March 09, 2023 11:00pm Blood Glucose Monitoring Suppl (FreeStyle Lite) device (20 sources) Start: 02-24-2024 Blood Glucose Monitoring Suppl (FreeStyle Lite) device Indications: Type 2 diabetes mellitus with diabetic polyneuropathy, with long-term current use of insulin (CMS/HCC) Test daily before all meals/snacks and once before bedtime. 1 each 02/24/2024 Active 120 actuat budesonide 0.16 mg/actuat / formoterol fumarate 0.0048 mg/actuat / glycopyrrolate 0.009 mg/actuat metered dose inhaler (20 sources) Corticosteroi d, beta2-Adrener gic Agonist Start: 08-01-2024 take 2 puff(s) by inhalation in the morning Budeson-Glycopyrrol- Formoterol (Breztri Aerosphere) 160-9-4.8 MCG/ACT aerosol Indications: Pulmonary emphysema, unspecified emphysema type (CMS/HCC) Inhale 2 puffs in the morning and 2 puffs before bedtime. 10.7 g 2 08/01/2024 Active Start: 03-10-2023 take 1 puff(s) by inhalation once daily Hpemkyzbct-Ucpzbbcm-Deovuetjqa (Breztri Aerosphere) 160-9-4.8 mcg/actuation HFA aerosol inhaler Active 1 PUFF INHALATION Daily March 09, 2023 11:00pm End: 08-01-2024 Aegdtun-Odhhjaptwhv-Xrzcgptv ol (Breztri Aerosphere) 160-9-4.8 MCG/ACT aerosol Inhale. 08/01/2024 Discontinued (Reorder) take 2 puff(s) by inhalation twice daily Breztri Aerosphere 160-9-4.8 MCG/ACT 2 puffs Inhalation Twice a day Active celecoxib 200 mg oral capsule (12 sources) Nonsteroidal Anti-inflammatory Drug Start: 08-01-2024 End: 01-28-2025 take 1 capsule by mouth in the morning celecoxib (CeleBREX) 200 MG capsule Indications: Neck pain Take 1 capsule (200 mg) by mouth in the morning and 1 capsule (200 mg) before bedtime. 60 capsule 2 08/01/2024 01/28/2025 Active Continuous Blood Gluc Surveyor Hydrographic (FreeStyle Magali 14 Day Lincoln) device (20 sources) Continuous Blood Gluc Surveyor Hydrographic (FreeStyle Magali 14 Day Lincoln) device 4 (four) times a day as needed. Active Continuous Blood Gluc Surveyor Hydrographic (FreeStyle Magali 14 Day Lincoln) device 4 (four) times a day as needed. 0 Active Continuous Blood Gluc Sensor (FreeStyle Magali 14 Day Sensor) misc (20 sources) Continuous Blood Gluc Sensor (FreeStyle Magali 14 Day Sensor) misc 4 (four) times a day as needed. Active Continuous Blood Gluc Sensor (FreeStyle Magali 14 Day Sensor) misc 4 (four) times a day as needed. 0 Active dapagliflozin 10 mg oral tablet (20 sources) Sodium-Glucose Cotransporter 2 Inhibitor Start: 11-04-2023 End: 08-01-2024 take 1 tablet by mouth once daily dapagliflozin (Farxiga) 10 MG Indications: Type 2 diabetes mellitus with diabetic polyneuropathy, with long-term current use of insulin (CMS/[facility]) Take 1 tablet (10 mg) by mouth Daily 90 tablet 1 08/01/2024 Active Start: 03-10-2023 take 1 tablet by once daily Farxiga 10 MG Indications: Type 2 diabetes mellitus with diabetic polyneuropathy, with long-term current use of insulin (CMS/HCC) TAKE 1 TABLET BY MOUTH EVERY DAY 90 tablet 0 08/10/2023 Active dextromethorphan hydrobromide 1.5 mg/ml / pyrilamine maleate 1.5 mg/ml oral solution (4 sources) Uncompetitive W-gxsfdc-P-aspartate Receptor Antagonist, Sigma-1 Agonist Start: 06-20-2023 take 10 mL by mouth every eight hours [place] DM 7.5-7.5 MG/5ML 10 mL Orally every [...] 1 (one) time per week. 0 Active Dulaglutide 4.5 MG/0.5ML solution auto-injector (12 sources) Start: 08-01-2024 inject 4.5 mg by subcutaneous injection every week Dulaglutide 4.5 MG/0.5ML solution auto-injector Indications: Poorly controlled type 2 diabetes mellitus (CMS/HCC) Inject 4.5 mg under the skin 1 (one) time per week 0.5 mL 08/01/2024 Active escitalopram 20 mg oral tablet (20 sources) Serotonin Reuptake Inhibitor Start: 03-10-2023 take [...] oral tablet (20 sources) Anti-epileptic Agent Start: 03-13-2024 End: 02-18-2025 take 1 tablet by mouth in the morning, then take 1 tablet by mouth in the evening, then take 1 tablet by mouth at bedtime gabapentin (Neurontin) 600 MG tablet Indications: Diabetic polyneuropathy associated with type 2 diabetes mellitus (CMS/HCC) Take 1 tablet (600 mg) by mouth in the morning and 1 tablet (600 mg) in the evening and 1 tablet (600 mg) before bedtime. 270 tablet 11/20/2024 02/18/2025 Active Start: 09-06-2023 take 1 tablet by sandro three times daily gabapentin (Neurontin) 800 MG [...] 10, 2023 5:04pm take 1 capsule by [facility] every eight hours Gabapentin 300 MG 1 tablet Orally three times a day Active take 1 tablet by sandro every twenty-four hours Gabapentin 800 MG 1 tablet Orally Once a day Active Glucose Blood (ACCU-CHEK LAURO PLUS ) (4 sources) Glucose Blood (ACCU-CHEK LAURO PLUS ) by In Vitro route. 0 Active Glucose Blood (BLOOD GLUCOSE TEST ) (4 sources) Glucose Blood (B LOOD GLUCOSE TEST ) 3 (three) times a day. 0 Active 12 hr guaiFENesin 600 mg extended release oral tablet (4 sources) take 1 tablet by sandro in the morning, then take 1 tablet by mouth every twelve hours at bedtime guaiFENesin (Mucinex) 600 MG 12 hr tablet Take 1,200 mg by mouth in the morning and 1,200 mg before bedtime. Do not crush, chew, or split. . 0 Active Insulin Aspart U-100 (Novolog Flexpen U-100 [...] Active NovoLOG 100 UNIT /ML Subcutaneous Active insulin glargine 100 unt/ml injectable solution (20 sources) Insulin Analog Start: 11-20-2024 End: 11-20-2025 insulin glargine (Lantus) 100 UNIT/ML injection Indications: Poorly controlled type 2 diabetes mellitus (CMS/HCC) Inject 20 units daily at 9 pm. 6 mL 11 11/20/2024 11/20/2025 Active Start: 08-03-2023 End: 11-01-2023 insulin glargine (Basaglar K Jackeline) 100 UNIT/ML pen Indications: Type 2 diabetes mellitus with diabetic polyneuropathy, with long-term current use of insulin (CMS/HCC) Inject 20 Units under the skin in [...] 30, 2020 11:00pm March 10, 2023 2:28pm 3 ml insulin lispro 100 unt/ml pen injector (7 sources) Insulin Analog Start: 11-20-2024 insulin lispro (Admelog SoloStar) 100 UNIT/ML injection Indications: Poorly controlled type 2 diabetes mellitus (CMS/HCC) Inject 10 Units under the skin in the morning and 10 Units at noon and 10 Units in the evening. Inject with meals. 9 mL 11 11/20/2024 Active Start: 11-20-2024 End: 11-20-2024 insulin lispro (HumaLOG KWIK PEN) 100 UNIT/ML injection Indications: Poorly controlled type 2 diabetes mellitus (CMS/HCC) Inject 10 units 3 times per day as directed. 15 mL 3 11/20/2024 11/20/2024 Discontinued isopropyl alcohol 0.7 ml/ml medicated pad (5 sources) Start: 02-24-2024 End: 05-24-2024 Alcohol Sheets (Alcoh-Wipe) sheet Indications: Type 2 diabetes mellitus with diabetic polyneuropathy, with long-term current use of insulin (CMS/HCC) 1 each by Other route in the morning and 1 each in the evening and 1 each before bedtime. Test daily before all meals/snacks and once before bedtime.. 300 each 02/24/2024 05/24/2024 Active lamoTRIgine 150 mg oral tablet (20 sources) Mood Stabilizer, Anti-epilepti c Agent Start: 10-31-2020 End: 05-09-2024 take 1 tablet by mouth twice daily [...] day Active LORazepam 1 mg oral tablet (20 sources) Benzodiazepine Start: 023 take 1 mg by mouth twice daily Lorazepam Active 1 MG PO Twice daily July 05, 2023 12:00am 24 hr metFORMIN hydrochloride 1000 mg / SITagliptin 100 mg extended release oral tablet (20 sources) Biguanide, Dipeptidyl Peptidase 4 Inhibitor Start: 025 take 1 tablet by mouth every twenty-four hours at bedtime SITagliptin-metFORMIN ER (Janumet XR) 100-1000 MG per 24 hr tablet Indications: Type 2 diabetes mellitus with diabetic polyneuropathy, with long-term current use of insulin (CMS/HCC) Take 1 tablet by mouth at bedtime 90 tablet 09/21/2024 Active Start: 05-09-2024 End: 08-01-2024 take 1 tablet by mouth every twenty-four hours at bedtime SITagliptin-metFORMIN ER (Janumet XR) 100-1000 MG per 24 hr tablet Indications: Type 2 diabetes mellitus with diabetic polyneuropathy, with long-term current use of insulin (CMS/HCC) Take 1 tablet by mouth at bedtime 90 tablet 05/09/2024 08/01/2024 Discontinued (Med list cleanup) Start: 01-27-2024 End: 09-21-2024 take 2 tablets by mouth at bedtime Janumet 50-500 MG tablet Take 2 tablets by mouth at bedtime 01/27/2024 09/21/2024 Discontinued Start: 10-28-2023 End: 05-09-2024 take 1 tablet by mouth once daily at bedtime Janumet XR 100-1000 MG per 24 hr tablet Indications: Type 2 diabetes mellitus with diabetic polyneuropathy, with long-term current use of insulin (CMS/HCC) TAKE 1 TABLET BY MOUTH EVERYDAY AT BEDTIME 90 tablet 10/28/2023 05/09/2024 Discontinued (Reorder) Start: 03-10-2023 take 1 tablet by sandro [...] tablet Orally Once a day Active nystatin 707346 unt/ml oral suspension (2 sources) Polyene Antifungal Start: End: nystatin (Mycostatin) 173744 UNIT/ML suspension Indications: Thrush Take 5 mL [...] Inhibitor Start: take 1 capsule by mouth in the morning omeprazole (PriLOSEC) [address] capsule Indications: Gastroesophageal reflux disease, unspecified whether esophagitis present Take 1 capsule (40 mg) by mouth in the morning. Take before meals. Do not crush or chew.Take 1 capsule (40 mg) by mouth in the morning. Take before meals. Do not crush or chew.. 90 capsule 12/21/2024 Active Start: 10-31-2020 End: 09-21-2024 take 1 capsule by mouth before mealtime omeprazole (PriLOSEC) [address] capsule Indications: Gastroesophageal reflux disease, unspecified whether esophagitis present Take 1 capsule (40 mg) by mouth in the morning. Take before meals. Do not crush or chew.. 90 capsule 09/21/2024 Active microencapsulated potassium chloride 20 meq extended [...] Jun, Active risperiDONE 3 mg oral tablet (20 sources) Atypical Antipsychotic Start: 10-31-2020 take 1 [...] check* Active tiZANidine 4 mg oral tablet (20 sources) Central alpha-2 Adrenergic Agonist Start: 4 End: 4 take 1 tablet by mouth three times daily as needed for muscle spasms tiZANidine (Zanaflex) 4 MG tablet Indications: Neck pain TAKE 1 TABLET (4 MG) BY MOUTH 3 (THREE) TIMES A DAY NEEDED FOR MUSCLE SPASMS 270 tablet 08/12/2024 Active Start: 09-06-2023 take 1 tablet by [...] inophen Discontinued 1 TAB PO Q4H 20 5 March 14, 2023 July 05, 2023 1:57pm [...] 30, 2021 11:00pm March 10, 2023 2:28pm dulaglutide (Trulicity) 3 MG/0.5ML solution pen-injector (11 sources) Start: 10-21-2023 End: 08-01-2024 inject 3 mg by subcutaneous injection every week dulaglutide (Trulicity) 3 MG/0.5ML solution pen-injector Indications: Type 2 diabetes mellitus with diabetic polyneuropathy, with long-term current use of insulin (CMS/HCC) Inject 3 mg under the skin 1 (one) time per week 6 mL 10/21/2023 08/01/2024 Discontinued (Dose adjustment) Start: 10-21-2023 inject 3 mg by subcu taneous injection every week dulaglutide (Trulicity) 3 MG/0.5ML solution pen-injector Indications: Type 2 diabetes mellitus with diabetic polyneuropathy, with long-term current use of insulin (CMS/HCC) Inject 3 mg under the skin 1 (one) time per week 6 mL 10/21/2023 Active hydrOXYzine hydrochloride 25 mg oral tablet (10 sources) Antihistamine Start: 10-31-2020 End: 03-10-2023 take 25 mg by mouth four times daily Hydroxyzine Hcl Discontinued 25 MG PO Four times daily October 30, 2020 11:00pm March 10, 2023 2:28pm ibuprofen 800 mg oral tablet (20 sources) Nonsteroidal Anti-inflammatory Drug Start: 02-21-2024 End: 08-01-2024 take 1 tablet by mouth three times daily ibuprofen 800 MG tablet Indications: Chronic pain syndrome TAKE 1 TABLET BY MOUTH THREE TIMES A DAY 90 tablet 3 02/21/2024 08/01/2024 Discontinued (Other) Start: 09-29-2023 take 1 tablet by sandro [...] A DAY 90 tablet 0 08/23/2023 Active levoFLOXacin 750 mg oral tablet (6 sources) Quinolone Antimicrobial Start: 03-10-2023 End: 07-05-2023 Levofloxacin Discontinued MG TABLET March 09, 2023 11:00pm July 05, 2023 1:57pm 24 hr nicotine 0.875 mg/hr transdermal system (5 sources) Cholinergic Nicotinic Agonist Start: 03-07-2024 End: 05-09-2024 apply 1 dose transdermal route every twenty-four hours nicotine (Nicoderm CQ) 21 MG/24HR patch Indications: Current smoker Place 1 patch over 24 hours on the skin 1 (one) time each day at the same time 30 patch 03/07/2024 05/09/2024 Discontinued (Cost of medication) simvastatin 20 mg oral tablet (10 sources) [...] 2.5 ug by inhalation twice daily Tiotropium Anderson (Spiriva Respimat) 2.5 mcg/actuation mist Discontinued 1 [...] Problem Classification Problem Date Documented Date Episodic/Chronic Acquired foot deformities (4 sources) Hallux valgus (acquired), left foot; Translations: [Hallux valgus (acquired)] 06-25-2024 Chronic Acute bronchitis (1 source) Acute bronchitis due to other specified organisms Episodic Alcohol-related disorders (1 source) Alcohol abuse with intoxication, unspecified; Translations: [ALCOHOL ABUSE WITH INTOXICATION UNS] Onset: 01-05-2022 Chronic Anxiety disorders (20 sources) Anxiety; Translations: [Anxiety disorder, unspecified] Onset: 09-06-2023 09-06-2023 Chronic Bacterial infection; unspecified site (1 source) Personal history of Methicillin resistant Staphylococcus aureus infection; Translations: [PERS HX METHICILLIN RSIST STAPH INF] Onset: 09-15-2022 Episodic Chronic obstructive pulmonary disease and bronchiectasis (20 sources) Chronic obstructive pulmonary disease, unspecified; Translations: [Chronic obstructive pulmonary disease with (acute) exacerbation] Onset: 04-28-2022 Chronic Chronic ulcer of skin (20 sources) Chronic ulcer of buttock; Translations: [Non-pressure chronic ulcer of buttock with fat layer exposed] Onset: 12-09-2023 12-09-2023 Chronic Diabetes mellitus with complications (20 sources) Type 2 diabetes mellitus with hypoglycemia without coma; Translations: [Type 2 diabetes mellitus] Onset: 03-04-2022 Chronic Diabetes mellitus without complication (20 sources) Type 2 diabetes mellitus without complications; Translations: [Type 2 diabetes mellitus] Onset: 07-28-2022 Chronic Disorders of lipid metabolism (20 sources) Hyperlipidemia, unspecified; Translations: [Pure hypercholesterolemia, unspecified] Onset: 12-24-2021 Chronic Esophageal disorders (2 sources) Gastroesophageal reflux disease without esophagitis; Translations: [Gastro-esophageal reflux disease without esophagitis] 06-12-2024 Chronic Essential hypertension (20 sources) Essential (primary) hypertension; Translations: [Hypertensive disorder] Onset: 09-15-2022 09-06-2023 Chronic Fluid and electrolyte disorders (6 sources) Hypokalemia; Translations: [Hypokalemia] 03-31-2021 Episodic Headache; including migraine (4 sources) Migraine, unspecified, not intractable, without status migrainosus; Translations: [MIGRAINE UNS NOT INTRACT W/O SM] Onset: 03-20-2022 Chronic Headache; including migraine (1 source) Headache; including migraine; Translations: [HEADACHE UNSPECIFIED] Onset: 03-04-2022 Mood disorders (20 sources) Bipolar disorder, unspecified; Translations: [Other bipolar disorder] Onset: 02-26-2022 09-06-2023 Chronic Other aftercare (1 source) retirement (current) use of insulin; Translations: [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 OF INSULIN] Onset: 09-15-2022 Episodic Other aftercare (1 source) 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; Translations: [OTH CALL CENTER DISPATCHER CURRENT DRUG THERAPY] Onset: 09-15-2022 Episodic Other endocrine disorders (20 sources) Hypoglycemia; Translations: [Hypoglycemia, unspecified] Onset: 01-10-2020 [...] Onset: 08-06-2023 Episodic Other nervous system disorders (20 sources) Lesion of ulnar nerve, left upper limb; [...] unspecified] Onset: 03-31-2022 Episodic Residual codes; unclassified (20 sources) Insomnia; Translations: [Other insomnia] Onset: 11-05-2022 [...] Translations: [Tobacco use] 03-11-2023 Episodic Substance-related disorders (20 sources) Nicotine dependence, cigarettes, uncomplicated; Translations: [Opioid [...] Problem Date Documented Date Episodic/Chronic Abdominal pain (20 sources) Pain in pelvis; Translations: [Pelvic and [...] ENC] Onset: 03-04-2022 Episodic Malaise and fatigue (20 sources) Weakness; Translations: [Malaise and fatigue] Onset: 06-25-2014 12-22-2023 Episodic Mood disorders (7 sources) Mood disorders; Translations: [DEPRESSION UNSPECIFIED] Onset: 03-04-2022 11-20-2024 Mycoses (20 sources) Candidiasis of mouth; Translations: [Candidal stomatitis] Onset: 10-21-2023 09-29-2023 Episodic Other connective tissue disease (1 source) Abnormal posture; Translations: [ABNORMAL POSTURE] Onset: 01-02-2022 Episodic Other connective tissue disease (20 sources) Non-traumatic rhabdomyolysis; Translations: [Rhabdomyolysis] Onset: 01-10-2020 09-06-2023 Episodic Other connective tissue disease (20 sources) Fibromyalgia; Translations: [Fibromyalgia] Onset: 11-24-2016 12-22-2023 Episodic Other connective tissue disease (20 sources) Spasm; Translations: [Other muscle spasm] Onset: 11-24-2016 12-22-2023 Episodic Other connective tissue disease (2 sources) Pain of toes of bilateral feet; Translations: [Pain in right toe(s)] 04-06-2024 Episodic Other lower respiratory disease (4 sources) [...] Onset: 01-02-2022 Episodic Other nervous system disorders (20 sources) H/O: migraine; Translations: [Personal history of other diseases of the nervous system and sense organs] Onset: 09-06-2023 09-06-2023 Episodic Other nervous system disorders (20 sources) Skin sensation disturbance; Translations: [Unspecified disturbances of skin sensation] Onset: 06-25-2014 12-22-2023 Episodic Other non-traumatic joint disorders (4 sources) Pain in right hip; Translations: [PAIN IN RIGHT HIP] Onset: 04-09-2022 Episodic Other screening for suspected conditions (not mental disorders or infectious disease) (20 sources) Patient encounter status; Translations: [Encounter for [...] Spondylosis; intervertebral disc disorders; other back problems (20 sources) Neck pain; Translations: [Cervicalgia] Onset: 09-14-2014 09-06-2023 Episodic Unclassified (1 source) COUGH, UNSPECIFIED; Translations: [COUGH, UNSPECIFIED] Onset: 03-29-2022 Unclassified (2 sources) Patient encounter status 11-20-2024 Results Test Name Value Interpretation Reference Range Facility BI MAMMOGRAM SCREENING TOMOS YNTHESIS BILATERALon 01-16-2025 BI MAMMOGRAM SCREENING TOMOSYNTHESIS BILATERAL This is a summary report. The complete report is available in the patient's medical record. If you cannot access the medical record, please contact the sending organization for a detailed fax or copy. Examination: BI MAMMOGRAM SCREENING TOMOSYNTHESIS BILATERAL Clinical History: screen Technique: Screening digital mammography study of both breasts was performed with 2-D and 3-D tomosynthesis imaging. Study was compared to the prior exam dated 10/07/2021. Findings: There is no evidence of interval dominant spiculated mass, grouped microcalcifications, or skin thickening which would be suggestive of malignancy. Mild scattered benign-appearing calcifications are noted bilaterally. Axillary lymph nodes including partially visualized lymph nodes noted bilaterally which appear grossly unremarkable. IMPRESSION: Impression: No specific evidence of malignancy seen in either breast. BIRADS 2 - Benign Findings DENSITY: There are scattered areas of fibroglandular density. FOLLOW-UP: Routine Screening Mammogram ELECTRONICALLY SIGNED BY: Alejo Chand M.D. Normal Not Available CBC panel Auto (Bld)on 11-23 Erythrocyte distribution width (RBC) [Ratio] 14.6 % 11.7 - 15.4 % [facility] Hematocrit (Bld) [Volume fraction] 47.4 % High 34.0 - 46.6 % [facility] Hemoglobin (Bld) [Mass/Vol] 15 g/dL 11.1 - 15.9 g/dL [facility] MCH (RBC) [Entitic mass] 32.4 pg 26.6 - 33.0 pg [facility] MCHC (RBC) [Mass/Vol] 31.6 g/dL 31.5 - 35.7 g/dL [facility] MCV (RBC) [Entitic vol] 102 fL High 79 - 97 fL [facility] Platelets (Bld) [#/Vol] 357 10*3/uL [facility] RBC (Bld) [#/Vol] 4.63 10*6/uL [facility] WBC (Bld) [#/Vol] 8.2 10*3/uL [facility] Laboratory - Chemistry and C hemistry - challengeon 11-23-2024 Albumin [Mass/Vol] 3.6 g/dL Low 3.9 - 4.9 g/dL [facility] ALP [Catalytic activity/Vol] 75 U/L [facility] ALT [Catalytic activity/Vol] 10 U/L [facility] AST [Catalytic activity/Vol] 14 U/L [facility] Bilirubin [Mass/Vol] 0.3 mg/dL 0.0 - 1 .2 mg/dL [facility] Calcium [Mass/Vol] 8.9 mg/dL 8.7 - 10. 2 mg/dL [facility] Chloride [Moles/Vol] 102 mmol/L 96 - 10 6 mmol/L [facility] CO2 [Moles/Vol] 25 mmol/L 20 - 29 mmol/L [facility] Creatinine [Mass/Vol] 0.8 mg/dL 0.57 - 1.00 mg/dL [facility] GFR/1.73 sq M.predicted among non-blacks MDRD (S/P/Bld) [Vol rate/Area] 90 mL/min/{1.73_m2} 59 - PINF mL/min/1.7 3 [facility] Globulin (S) [Mass/Vol] 2.4 g/dL 1.5 - 4.5 g/dL [facility] Glucose [Mass/Vol] 138 mg/dL High 70 - 99 mg/dL [facility] Potassium [Moles/Vol] 4.7 mmol/L 3.5 - 5.2 mmol/L [facility] Protein [Mass/Vol] 6 g/dL 6.0 - 8.5 g/dL [facility] Sodium [Moles/Vol] 139 mmol/L 134 - 144 mmol/L [facility] Urea nitrogen [Mass/Vol] 10 mg/dL 6 - 24 mg/dL [facility] Urea nitrogen/Creatinine [Mass ratio] 13 mg/mg 9 - 23 [facility] Laboratory - Hematology and Cell countson 11-23-2024 HbA1c (Bld) [Mass fraction] 9.6 % High 4.8 - 5.6 % [facility] Comment on above: Prediabetes: 5.7 - 6 .4 Diabetes: >6.4 Glycemic control for adults with diabetes: <7.0 Lipid 1996 panelon Cholesterol [Mass/Vol] 149 mg/dL 100 - 199 mg/dL [facility] Cholesterol in HDL [Mass/Vol] 72 mg/dL 39 - PINF mg/dL [facility] Cholesterol in LDL [Mass/Vol] 52 mg/dL 0 - 99 mg/dL [facility] Cholesterol in VLDL [Mass/Vol] 25 mg/dL 5 - 40 mg/dL [facility] Triglyceride [Mass/Vol] 148 mg/dL 0 - 149 mg/dL [facility] Microalbumin/Creatinine rati o panel (U)on 11-23-2024 Albumin DL <= 20 mg/L (U) [Mass/Vol] 15.8 ug/mL Not Estab. [facility] Albumin/Creatinine (U) [Mass ratio] 19 [facility] Comment on above: Normal: 0 - 29 Moderately increased: 30 - 300 Severely increased: >300 Creatinine (U) [Mass/Vol] 84.2 mg/dL Not Estab. [facility] No Panel Informationon 11-23 Interpretation and review of laboratory results Abnormal [facility]: [facility] - [facility] [address] [place], [place] [id number] Billing Specialist: Juan Jennings PhD, Phone: [phone] [facility] - [facility] [address], [address], [place], [place] [id number] Billing Specialist: Malachi Espana MD, Phone: [phone] [facility] HbA1c (Bld) [Mass fraction]o n 08-01-2024 Interpretation and review of laboratory results Abnormal [facility] Laboratory - Hematology and Cell countson 08-01-2024 HbA1c (Bld) [Mass fraction] 8.7 % [facility] URINE CULTURE, ROUTINEon Bacteria identified Cx Nom (U) Urine Culture, Routine [facility] Bacteria identified Cx Nom (U) Mixed urogenital mick [facility] Bacteria identified Cx Nom (U) Less than 10,000 colonies/mL [facility] Bacteria identified Cx Nom (U) [facility]formed at[facility] Bacteria identified Cx Nom (U) [address] [place], [place] [id number] [facility] Bacteria identified Cx Nom (U) Billing Specialist: Juan Jennings PhD, Phone: [phone] [facility] Provider Letteron 05-29-2024 Provider Letter Provider Letter May 29, 2024 [place] [address] : 1975 Dear Ms. Perez, We have been trying to reach you with no success regarding a referral from Denisse Mullins. It is important that you return our call upon receiving this letter. Also, at the time of your call, please provide us with your current information. Thank you for your prompt attention to this matter. Sincerely, [facility] General Surgery [phone] Normal [facility] CT chest wo conon 08-30-2023 CT chest wo con [facility] [place] [address] CT Scan Report Signed Patient: Christiane Perez MR#: [id number] 2 : 1975 Acct:[id number] Age/Sex: 48 / F ADM Date: 08/30/23 Loc: CT Room: Type: [facility] Attending Dr: Errol Nicole MD Copies [...] resolution. Impression dictated by: Rodger Johnson Jr., D.OJosue08/30/2023 3:21 PM Dictation Location: [place] [address] Transcribed By: [facility] 08/30/23 1521 Dictated By: Rodger Johnson Jr, DO 08/30/23 1517 Signed By: 08/30/23 1521 [facility] Activated partial thrombopla stin time (aPTT) in platelet poor plasma by coagulation aOrdered By: Marilee Marcum on 08-06-2023 aPTT Coag (PPP) [Time] 32.3 s 25.1-36.5 [facility] Comment on above: A hematocrit value g reater than 55% may lead to inaccurate results in coagulation testing. Patients having hematocrit values >55% require a special collection tube for coagulation studies. Please contact the laboratory at [phone] for redraw instructions. B-Type Natriuretic Peptideon 08-06-2023 Natriuretic peptide B (Bld) [Mass/Vol] 29.0 pg/mL Normal 5-100 [facility] Comment on above: Result Comment: PERF ORMED BY: [place] [address] PATHOLOGIST [employer] WAYNE WAKEFIELD M.D. Performed By: #### V ANCT #### [address] Basic Metabolic Panelon 07-17 Anion gap [Moles/Vol] 9.8 mmol/L Normal 6.0-15.0 [facility] Comment on above: Performed By: #### V ANCT #### [address] Calcium [Mass/Vol] 8.6 mg/dL Normal 8.6-10.3 [facility] Comment on above: Performed By: #### V ANCT #### [facility] [address] [place] [address] [place] Chloride [Moles/Vol] 106 mmol/L Normal 98-107 [facility] Comment on above: Performed By: #### V ANCT #### [facility] [address] [place] [address] [place] CO2 [Moles/Vol] 24.9 mmol/L Normal 21.0-31.0 [facility] Comment on above: Performed By: #### V ANCT #### [facility] [address] [place] [address] Creatinine [Mass/Vol] 0.72 mg/dL Normal 0.60-1.20 [facility] Comment on above: Performed By: #### V ANCT #### [facility] [address] [place] [address] [place] Creatinine Clr Calc Pharmacy 116.58 [facility] Comment on above: Result Comment: PERF ORMED BY: [place] [address] PATHOLOGIST [employer] WAYNE WAKEFIELD M.D. Performed By: #### V ANCT #### [place] [address] [place] GFR/1.73 sq M.predicted MDRD (S/P/Bld) [Vol rate/Area] mL/min/{1.73_m2} Normal [facility] Comment on above: Performed By: #### V ANCT #### [address] Glucose [Mass/Vol] 99 mg/dL Normal 70-100 [facility] Comment on above: Result Comment: [facility] Glucose Reference Range is dependent on time and content of last meal. Glucose of more than 200 mg/dL in a nonstressed, ambulatory subject supports the diagnosis of Diabetes Mellitus. ADA recommended reference range Performed By: #### V ANCT #### [place] [address] [place] Potassium [Moles/Vol] 3.7 mmol/L Normal 3.5-5.1 [facility] Comment on above: Performed By: #### V ANCT #### [place] [address] [place] Sodium [Moles/Vol] 137 mmol/L Normal 136-145 [facility] Comment on above: Performed By: #### V ANCT #### [facility] [address] [place] [address] [place] Urea nitrogen [Mass/Vol] 8 mg/dL Normal 7-25 [facility] Comment on above: Performed By: #### V ANCT #### [place] [address] [place] Basophils Auto (Bld) [#/Vol] Ordered By: Marilee Marcum on 08-06-2023 Basophils (Bld) [#/Vol] 0.1 10*3/uL 0.0-0.2 [facility] Basophils/100 WBC Auto (Bld) Ordered By: Marilee Marcum on 08-06-2023 Basophils/100 WBC (Bld) 0.5 % . [facility] COVID CepheidOrdered By: Marielos nelsy Jossue on 08-06-2023 SARS-CoV-2 (COVID-19) Ab IA Ql Negative Negative [facility] Comment on above: This is a duplicate Cepheid Xpert Xpress CoV-2/Flu/RSV Plus RNA by RT-PCR result to be used for statistical tracking purpose only. SARS-CoV-2 (COVID-19) RNA SOILA+probe Ql (Unsp spec) [facility] COVID-19 / Flu A/B / RSV [...] or Cepheid Disclaimer revoked sooner. PERFORMED BY: [address] [address] PATHOLOGIST [employer] WAYNE WAKEFIELD M.D. Normal [facility] Comment on above: Performed By: #### V ANCT #### [facility] [address] [place] [address] [place] Calcium [Mass/volume] in Ser um or PlasmaOrdered By: Marilee Marcum on 08-06-2023 Calcium [Mass/Vol] 8.6 mg/dL 8.6-10.3 [facility] Carbon dioxide, total [Moles /volume] in Serum or PlasmaOrdered By: Marilee Marcum on 08-06-2023 CO2 [Moles/Vol] 24.9 mmol/L 21.0-31.0 [facility] Cepheid COVID PCR Negativeon 08-06-2023 SARS-CoV-2 (COVID-19) RNA SOILA+probe Ql (Unsp spec) Negative Normal Negative [facility] Comment on above: Result Comment: This is a duplicate Cepheid Xpert Xpress CoV-2/Flu/RSV Plus RNA by RT-PCR result to be used for statistical tracking purpose only. PERFORMED BY: [address] [address] PATHOLOGIST [employer] WAYNE WAKEFIELD M.D. Performed By: #### V ANCT #### [facility] [address] [place] [address] [place] Chloride [Moles/volume] in S kaitlin or PlasmaOrdered By: Marilee Marcum on 08-06-2023 Chloride [Moles/Vol] 106 mmol/L 98-107 [facility] Complete Blood Count Auto Di ffon 08-06-2023 Basophils (Bld) [#/Vol] 0.1 10*3/uL Normal 0.0-0.2 [facility] Comment on above: Result Comment: PERF ORMED BY: [place] [address] PATHOLOGIST [employer] WAYNE WAKEFIELD M.D. Performed By: #### V ANCT #### [address] Basophils/100 WBC (Bld) 0.5 % Normal . [facility] Comment on above: Performed By: #### V ANCT #### [address] Eosinophils (Bld) [#/Vol] 0.1 10*3/uL Normal 0.0-0.45 [facility] Comment on above: Performed By: #### V ANCT #### [address] Eosinophils/100 WBC (Bld) 1.0 % Normal . [facility] Comment on above: Performed By: #### V ANCT #### [address] Erythrocyte distribution width (RBC) [Ratio] 16.7 % High 11.9-15.3 [facility] Comment on above: Performed By: #### V ANCT #### [address] Hematocrit (Bld) [Volume fraction] 45.8 % Normal 34.0-46.4 [facility] Comment on above: Performed By: #### V ANCT #### [address] Hemoglobin (Bld) [Mass/Vol] 15.4 g/dL Normal 11.8-15.4 [facility] Comment on above: Performed By: #### V ANCT #### [address] Lymphocytes (Bld) [#/Vol] 1.4 10*3/uL Normal 1.00-4.8 [facility] Comment on above: Performed By: #### V ANCT #### [address] Lymphocytes/100 WBC (Bld) 12.5 % Normal . [facility] Comment on above: Performed By: #### V ANCT #### [address] MCH (RBC) [Entitic mass] 32.9 pg Normal 24.7-34.3 [facility] Comment on above: Performed By: #### V ANCT #### [address] MCV (RBC) [Entitic vol] 97.6 fL Normal 80-100 [facility] Comment on above: Performed By: #### V ANCT #### [address] Mean Corpuscular HGB Conc 33.7 g/dL Normal 32.0-35.0 [facility] Comment on above: Performed By: #### V ANCT #### [address] Monocytes (Bld) [#/Vol] 0.8 10*3/uL Normal 0.0-0.8 [facility] Comment on above: Performed By: #### V ANCT #### [address] Monocytes/100 WBC (Bld) 23.24 % High 0.00-20.00 [facility] Comment on above: Result Comment: For adults in ED, MDW > 20.0 may be associated with a higher risk of sepsis during the first 12 hrs of hospital admission Performed By: #### V ANCT #### [address] Monocytes/100 WBC (Bld) 7.7 % Normal . [facility] Comment on above: Performed By: #### V ANCT #### [facility] [address] [place] [address] [place] Neutrophils (Bld) [#/Vol] 8.5 10*3/uL High 1.8-7.7 [facility] Comment on above: Performed By: #### V ANCT #### [facility] [address] [place] [address] [place] Neutrophils/100 WBC (Bld) 78.3 % Normal . [facility] Comment on above: Performed By: #### V ANCT #### [address] NRBC% 0.1 /100{WBC} Normal 0-0.5 [facility] Comment on above: Performed By: #### V ANCT #### [address] Platelet mean volume (Bld) [Entitic vol] 7.3 fL Normal 6.3-10.7 [facility] Comment on above: Performed By: #### V ANCT #### [place] [address] [place] Platelets (Bld) [#/Vol] 237 10*3/uL Normal 150-450 [facility] Comment on above: Performed By: #### V ANCT #### [facility] [address] [place] [address] RBC (Bld) [#/Vol] 4.70 10*6/uL Normal 3.60-5.00 [facility] Comment on above: Performed By: #### V ANCT #### [place] [address] [place] WBC (Bld) [#/Vol] 10.8 10*3/uL Normal 3.8-11.6 [facility] Comment on above: Performed By: #### V ANCT #### [facility] [address] [place] [address] [place] Creatinine [Mass/volume] in Serum or PlasmaOrdered By: Marilee Marcum on 08-06-2023 Creatinine [Mass/Vol] 0.72 mg/dL 0.60-1.20 [facility] ECG 12 lead ECGon 08-06-2023 ECG 12 lead ECG [facility] [place] [address] Electrocardiograph Report Signed Patient: Christiane Perez MR#: [id number] 2 : 1975 Acct:[id number] Age/Sex: 48 / F ADM Date: 08/06/23 Loc: ER Room: Type: [facility] ER Attending Dr: Ordering Provider: Marilee [...] found Confirmed by [id number] on 08/08/2023 11:46:24 AM Referred By: Electronically Signed By:ROBIN ZUNIGA MD [facility] Transcribed By: [facility] Signed By Mario Zuniga MD 08/08/23 1146 Normal [facility] Eosinophils Auto (Bld) [#/Vo l]Ordered By: Marilee Marcum on 08-06-2023 Eosinophils (Bld) [#/Vol] 0.1 10*3/uL 0.0-0.45 [facility] Eosinophils/100 WBC Auto (Bl d)Ordered By: Marilee Marcum on 08-06-2023 Eosinophils/100 WBC (Bld) 1.0 % . [facility] Erythrocyte distribution wid th Auto (RBC) [Ratio]Ordered By: Marilee Marcum on 08-06-2023 Erythrocyte distribution width (RBC) [Ratio] 16.7 % 11.9-15.3 [facility] Glucose [Mass/volume] in Ser um or PlasmaOrdered By: Marilee Marcum on 08-06-2023 Glucose [Mass/Vol] 99 mg/dL 70-100 [facility] Comment on above: ADA recommended refe rence rangeRandom Glucose Reference Range is dependent on time and content of last meal. Glucose of more than 200 mg/dL in a nonstressed, ambulatory subject supports the diagnosis of Diabetes Mellitus. Hematocrit Auto (Bld) [Volum e fraction]Ordered By: Marilee Marcum on 08-06-2023 Hematocrit (Bld) [Volume fraction] 45.8 % 34.0-46.4 [facility] Hemoglobin [Mass/volume] in BloodOrdered By: Marilee Marcum on 08-06-2023 Hemoglobin (Bld) [Mass/Vol] 15.4 g/dL 11.8-15.4 [facility] INR in Platelet poor plasma by Coagulation assayOrdered By: Marilee Marcum on 08-06-2023 INR Coag (PPP) [Relative time] 1.0 {INR} [facility] Comment on above: INR Therapeutic Rang [...] RBC Auto (Bld) [#/Vol] 10.8 10*3/uL 3.8-11.6 [facility] Lymphocytes Auto (Bld) [#/Vo l]Ordered By: Marilee Marcum on 08-06-2023 Lymphocytes (Bld) [#/Vol] 1.4 10*3/uL 1.00-4.8 [facility] Lymphocytes/100 WBC Auto (Bl d)Ordered By: Marilee Marcum on 08-06-2023 Lymphocytes/100 WBC (Bld) 12.5 % . [facility] MCH Auto (RBC) [Entitic mass ]Ordered By: Marilee Marcum on 08-06-2023 MCH (RBC) [Entitic mass] 32.9 pg 24.7-34.3 [facility] MCHC Auto (RBC) [Mass/Vol]Or dered By: Marilee Marcum on 08-06-2023 MCHC (RBC) [Mass/Vol] 33.7 g/dL 32.0-35.0 [facility] MCV Auto (RBC) [Entitic vol] Ordered By: Marilee Marcum on 08-06-2023 MCV (RBC) [Entitic vol] 97.6 fL 80-100 [facility] Monocyte distribution width [Entitic volume] in Blood by AutomatedOrdered By: Marilee Marcum on 08-06-2023 Monocyte distribution width Auto (Bld) [Entitic vol] 23.24 % 0.00-20.00 [facility] Comment on above: For adults in ED, MD W > 20.0 may be associated with a higher risk of sepsis during the first 12 hrs of hospital admission Monocytes Auto (Bld) [#/Vol] Ordered By: Marilee Marcum on 08-06-2023 Monocytes (Bld) [#/Vol] 0.8 10*3/uL 0.0-0.8 [facility] Monocytes/100 WBC Auto (Bld) Ordered By: Marilee Marcum on 08-06-2023 Monocytes/100 WBC (Bld) 7.7 % . [facility] Natriuretic peptide B [Mass/ Vol]Ordered By: Marilee Marcum on 08-06-2023 Natriuretic peptide B (Bld) [Mass/Vol] 29.0 pg/mL 5-100 [facility] Neutrophils Auto (Bld) [#/Vo l]Ordered By: Marilee Marcum on 08-06-2023 Neutrophils (Bld) [#/Vol] 8.5 10*3/uL 1.8-7.7 [facility] Neutrophils/100 WBC Auto (Bl d)Ordered By: Marilee Marcum on 08-06-2023 Neutrophils/100 WBC (Bld) 78.3 % . [facility] No Panel InformationOrdered By: Marilee Marcum on 08-06-2023 Estimated GFR (CKD-EPI) > 60.0 mL/Min [facility] Creatinine Clearance (Chem 116.58 [facility] Nucleated erythrocytes [Pres ence] in Blood by Automated countOrdered By: Marilee Marcum on 08-06-2023 Nucleated RBC Auto Ql (Bld) 0.1 /100{WBC} 0-0.5 [facility] Partial Thromboplastin Timeo n 08-06-2023 aPTT Coag (Bld) [Time] 32.3 s Normal 25.1-36.5 [facility] Comment on above: Result Comment: A he matocrit value greater than 55% may lead to inaccurate results in coagulation testing. Patients having hematocrit values >55% require a special collection tube for coagulation studies. Please contact the laboratory at [phone] for redraw instructions. PERFORMED BY: [place] [address] PATHOLOGIST [employer] WAYNE WAKEFIELD M.D. Performed By: #### V ANCT #### [address] Platelet mean volume Auto (B ld) [Entitic vol]Ordered By: Marilee Marcum on 08-06-2023 Platelet mean volume (Bld) [Entitic vol] 7.3 fL 6.3-10.7 [facility] Platelets Auto (Bld) [#/Vol] Ordered By: Marilee Marcum on 08-06-2023 Platelets (Bld) [#/Vol] 237 10*3/uL 150-450 [facility] Potassium [Moles/volume] in Serum or PlasmaOrdered By: Marilee Marcum on 08-06-2023 Potassium [Moles/Vol] 3.7 mmol/L 3.5-5.1 [facility] Prothrombin Time INRon 08-06 INR Coag (PPP) [Relative time] 1.0 {INR} Normal [facility] Comment on above: Result Comment: INR [...] 4.5 Performed By: #### V ANCT #### [facility] [address] [place] [id number] [place] PT Coag (PPP) [Time] 11.3 s Normal 9.0-12.9 [facility] Comment on above: Result Comment: A he matocrit value greater than 55% may lead to inaccurate results in coagulation testing. Patients having hematocrit values >55% require a special collection tube for coagulation studies. Please contact the laboratory at [phone] for redraw instructions. Performed By: #### V ANCT #### [facility] [address] [place] [address] [place] Prothrombin time (PT)Ordered By: Marilee Marcum on 08-06-2023 PT Coag (PPP) [Time] 11.3 s 9.0-12.9 [facility] Comment on above: A hematocrit value g reater than 55% may lead to inaccurate results in coagulation testing. Patients having hematocrit values >55% require a special collection tube for coagulation studies. Please contact the laboratory at [phone] for redraw instructions. RBC Auto (Bld) [#/Vol]Ordere d By: Marilee Marcum on 08-06-2023 RBC (Bld) [#/Vol] 4.70 10*6/uL 3.60-5.00 [facility] Serum or plasma anion gap de terminationOrdered By: Marilee Marcum on 08-06-2023 Anion gap [Moles/Vol] 9.8 mmol/L 6.0-15.0 [facility] Sodium [Moles/volume] in Ser um or PlasmaOrdered By: Marilee Marcum on 08-06-2023 Sodium [Moles/Vol] 137 mmol/L 136-145 [facility] Troponin I High Sensitivityo n 08-06-2023 Troponin I High Sensitivity 8.9 pg/mL Normal 0.0-15.0 [facility] Comment on above: Result Comment: PERF ORMED BY: [facility] [address] [facility] [address] PATHOLOGIST [employer] WAYNE WAKEFIELD M.D. Performed By: #### V ANCT #### [address] Troponin I.cardiac [Mass/vol ume] in Serum or Plasma by Detection limit <= 0.01 ng/Ordered By: Marilee Marcum on 08-06-2023 Troponin I.cardiac DL <= 0.01 ng/mL [Mass/Vol] 8.9 pg/mL 0.0-15.0 [facility] Urea nitrogen [Mass/volume] in Serum or PlasmaOrdered By: Marilee Marcum on 08-06-2023 Urea nitrogen [Mass/Vol] 8 mg/dL 7-25 [facility] WBC Auto (Bld) [#/Vol]Ordere d By: Marilee Marcum on 08-06-2023 WBC (Bld) [#/Vol] 10.8 10*3/uL 3.8-11.6 [facility] XR chest 2V*on 08-06-2023 XR chest 2V* [facility] [address] [place] [address] [place] [address] XRay Report Signed Patient: Christiane Perez MR#: [id number] 2 : 1975 Acct:[id number] Age/Sex: 48 / F ADM Date: 08/06/23 Loc: ER Room: Type: [facility] ER Attending Dr: Copies to: Marilee [...] Giovanny Cleveland M.D.08/06/2023 8:42 PM Dictation Location: [place] [address] Transcribed By: [facility] 08/06/232041 Dictated By: Giovanny Cleveland DO 08/06/232038 Signed By: 08/06/232041 [facility] [facility] Metabolic Panelon Anion gap [Moles/Vol] 9.2 mmol/L Normal 6.0-15.0 [facility] Comment on above: Performed By: #### G LULS #### Point of Care testing , Calcium [Mass/Vol] 8.9 mg/dL Normal 8.6-10.3 [facility] Comment on above: Performed By: #### G LULS #### Point of Care testing , Chloride [Moles/Vol] 107 mmol/L Normal 98-107 [facility] Comment on above: Performed By: #### G LULS #### Point of Care testing , CO2 [Moles/Vol] 25.5 mmol/L Normal 21.0-31.0 [facility] Comment on above: Performed By: #### G LULS #### Point of Care testing , Creatinine [Mass/Vol] 0.70 mg/dL Normal 0.60-1.20 [facility] Comment on above: Performed By: #### G LULS #### Point of Care testing , Creatinine Clr Calc Pharmacy 119.81 [facility] Comment on above: Result Comment: PERF ORMED BY: [facility] [address] [place] [address] PATHOLOGIST [employer] WAYNE WAKEFIELD M.D. Performed By: #### G LULS #### Point of Care testing , GFR/1.73 sq M.predicted MDRD (S/P/Bld) [Vol rate/Area] mL/min/{1.73_m2} [facility] Comment on above: Performed By: #### G LULS #### Point of Care testing , Glucose [Mass/Vol] 50 mg/dL Low 70-100 [facility] Comment on above: Result Comment: [place] Glucose Reference Range is dependent on time and content of last meal. Glucose of more than 200 mg/dL in a nonstressed, ambulatory subject supports the diagnosis of Diabetes Mellitus. ADA recommended reference range Performed By: #### G LULS #### Point of Care testing , Potassium [Moles/Vol] 3.7 mmol/L Normal 3.5-5.1 [facility] Comment on above: Performed By: #### G LULS #### Point of Care testing , Sodium [Moles/Vol] 138 mmol/L Normal 136-145 [facility] Comment on above: Performed By: #### G LULS #### Point of Care testing , Urea nitrogen [Mass/Vol] 10 mg/dL Normal 7-25 [facility] Comment on above: Performed By: #### G LULS #### Point of Care testing , Complete Blood Count Auto Di ffon 07-17-2023 Basophils (Bld) [#/Vol] 0.2 10*3/uL Normal 0.0-0.2 [facility] Comment on above: Result Comment: PERF ORMED BY: [facility] [address] [place] [address] PATHOLOGIST [employer] WAYNE WAKEFIELD M.D. Performed By: #### G MARYLS #### Point of Care testing , Basophils/100 WBC (Bld) 1.1 % Normal . [facility] Comment on above: Performed By: #### G LULS #### Point of Care testing , Eosinophils (Bld) [#/Vol] 0.2 10*3/uL Normal 0.0-0.45 [facility] Comment on above: Performed By: #### G LULS #### Point of Care testing , Eosinophils/100 WBC (Bld) 1.2 % Normal . [facility] Comment on above: Performed By: #### G LULS #### Point of Care testing , Erythrocyte distribution width (RBC) [Ratio] 16.3 % High 11.9-15.3 [facility] Comment on above: Performed By: #### G LULS #### Point of Care testing , Hematocrit (Bld) [Volume fraction] 45.8 % Normal 34.0-46.4 [facility] Comment on above: Performed By: #### G MARYLS #### Point of Care testing , Hemoglobin (Bld) [Mass/Vol] 15.3 g/dL Normal 11.8-15.4 [facility] Comment on above: Performed By: #### G MARYLS #### Point of Care testing , Lymphocytes (Bld) [#/Vol] 4.4 10*3/uL Normal 1.00-4.8 [facility] Comment on above: Performed By: #### G LULS #### Point of Care testing , Lymphocytes/100 WBC (Bld) 32.3 % Normal . [facility] Comment on above: Performed By: #### G MARYLS #### Point of Care testing , MCH (RBC) [Entitic mass] 32.2 pg Normal 24.7-34.3 [facility] Comment on above: Performed By: #### G MARYLS #### Point of Care testing , MCV (RBC) [Entitic vol] 96.4 fL Normal 80-100 [facility] Comment on above: Performed By: #### G MARYLS #### Point of Care testing , Mean Corpuscular HGB Conc 33.4 g/dL Normal 32.0-35.0 [facility] Comment on above: Performed By: #### G MARYLS #### Point of Care testing , Monocytes (Bld) [#/Vol] 0.9 10*3/uL High 0.0-0.8 [facility] Comment on above: Performed By: #### G MARYLS #### Point of Care testing , Monocytes/100 WBC (Bld) 17.19 % Normal 0.00-20.00 [facility] Comment on above: Performed By: #### G MARYLS #### Point of Care testing , Monocytes/100 WBC (Bld) 6.8 % Normal . [facility] Comment on above: Performed By: #### G MARYLS #### Point of Care testing , Neutrophils (Bld) [#/Vol] 8.0 10*3/uL High 1.8-7.7 [facility] Comment on above: Performed By: #### G LULS #### Point of Care testing , Neutrophils/100 WBC (Bld) 58.6 % Normal . [facility] Comment on above: Performed By: #### G MARYLS #### Point of Care testing , NRBC% 0.1 /100{WBC} Normal 0-0.5 [facility] Comment on above: Performed By: #### G LULS #### Point of Care testing , Platelet mean volume (Bld) [Entitic vol] 6.9 fL Normal 6.3-10.7 [facility] Comment on above: Performed By: #### G LULS #### Point of Care testing , Platelets (Bld) [#/Vol] 414 10*3/uL Normal 150-450 [facility] Comment on above: Performed By: #### G MARYLS #### Point of Care testing , RBC (Bld) [#/Vol] 4.75 10*6/uL Normal 3.60-5.00 [facility] Comment on above: Performed By: #### G MARYLS #### Point of Care testing , WBC (Bld) [#/Vol] 13.6 10*3/uL High 3.8-11.6 [facility] Comment on above: Performed By: #### G LULS #### Point of Care testing , XR chest 1V portableon 07-17 XR chest 1V portable [facility] [place] [address] XRay Report Signed Patient: Christiane Perez MR#: [id number] 2 : 1975 Acct:[id number] Age/Sex: 48 / F ADM Date: 07/16/23 Loc: ER Room: Type: [facility] ER Attending Dr: Copies to: Yasmin [...] M.D.07/17/2023 8:50 AM Dictation Location: [place] [address] Transcribed By: CHARLI 07/17/23 0850 Dictated By: Shireen Caruso MD 07/17/23 0849 Signed By: 07/17/23 0850 Normal [facility] Basophils Auto (Bld) [#/Vol] Ordered By: Yasmin Leung on 07-16-2023 Basophils (Bld) [#/Vol] 0.2 10*3/uL 0.0-0.2 [facility] Basophils/100 WBC Auto (Bld) Ordered By: Yasmin Leung on 07-16-2023 Basophils/100 WBC (Bld) 1.1 % . [facility] Calcium [Mass/volume] in Ser um or PlasmaOrdered By: Yasmin Leung on 07-16-2023 Calcium [Mass/Vol] 8.9 mg/dL 8.6-10.3 [facility] Carbon dioxide, total [Moles /volume] in Serum or PlasmaOrdered By: Yasmin Leung on 07-16-2023 CO2 [Moles/Vol] 25.5 mmol/L 21.0-31.0 [facility] Chloride [Moles/volume] in S kaitlin or PlasmaOrdered By: Yasmin Leung on 07-16-2023 Chloride [Moles/Vol] 107 mmol/L 98-107 [facility] Creatinine [Mass/volume] in Serum or PlasmaOrdered By: Yasmin Leung on 07-16-2023 Creatinine [Mass/Vol] 0.70 mg/dL 0.60-1.20 [facility] ECG 12 lead ECGon 07-16-2023 ECG 12 lead ECG [facility] Main [place] [id number] Electrocardiograph Report Signed Patient: Christiane Perez MR#: [id number] 2 : 1975 Acct:[id number] Age/Sex: 48 / F ADM Date: 07/16/23 Loc: ER Room: Type: [facility] ER Attending Dr: Ordering Provider: Yasmin [...] By Yasmin Leung MD 07/17/23 0119 Normal [facility] Eosinophils Auto (Bld) [#/Vo l]Ordered By: Yasmin Leung on 07-16-2023 Eosinophils (Bld) [#/Vol] 0.2 10*3/uL 0.0-0.45 [facility] Eosinophils/100 WBC Auto (Bl d)Ordered By: Yasmin Leung on 07-16-2023 Eosinophils/100 WBC (Bld) 1.2 % . [facility] Erythrocyte distribution wid th Auto (RBC) [Ratio]Ordered By: Yasmin Leung on 07-16-2023 Erythrocyte distribution width (RBC) [Ratio] 16.3 % 11.9-15.3 [facility] Glucose [Mass/volume] in Ser um or PlasmaOrdered By: Yasmin Leung on 07-16-2023 Glucose [Mass/Vol] 50 mg/dL 70-100 [facility] Comment on above: ADA recommended refe rence rangeRandom Glucose Reference Range is dependent on time and content of last meal. Glucose of more than 200 mg/dL in a nonstressed, ambulatory subject supports the diagnosis of Diabetes Mellitus. Hematocrit Auto (Bld) [Volum e fraction]Ordered By: Yasmin Leung on 07-16-2023 Hematocrit (Bld) [Volume fraction] 45.8 % 34.0-46.4 [facility] Hemoglobin [Mass/volume] in BloodOrdered By: Yasmin Leung on 07-16-2023 Hemoglobin (Bld) [Mass/Vol] 15.3 g/dL 11.8-15.4 [facility] Leukocytes [#/volume] correc billy for nucleated erythrocytes in Blood by Automated counOrdered By: Yasmin Leung on 07-16-2023 WBC corrected for nucl RBC Auto (Bld) [#/Vol] 13.6 10*3/uL 3.8-11.6 [facility] Lymphocytes Auto (Bld) [#/Vo l]Ordered By: Yasmin Leung on 07-16-2023 Lymphocytes (Bld) [#/Vol] 4.4 10*3/uL 1.00-4.8 [facility] Lymphocytes/100 WBC Auto (Bl d)Ordered By: Yasmin Leung on 07-16-2023 Lymphocytes/100 WBC (Bld) 32.3 % . [facility] MCH Auto (RBC) [Entitic mass ]Ordered By: Yasmin Leung on 07-16-2023 MCH (RBC) [Entitic mass] 32.2 pg 24.7-34.3 [facility] MCHC Auto (RBC) [Mass/Vol]Or dered By: Yasmin Leung on 07-16-2023 MCHC (RBC) [Mass/Vol] 33.4 g/dL 32.0-35.0 [facility] MCV Auto (RBC) [Entitic vol] Ordered By: Yasmin Leung on 07-16-2023 MCV (RBC) [Entitic vol] 96.4 fL 80-100 [facility] Monocyte distribution width [Entitic volume] in Blood by AutomatedOrdered By: Yasmin Leung on 07-16-2023 Monocyte distribution width Auto (Bld) [Entitic vol] 17.19 % 0.00-20.00 [facility] Monocytes Auto (Bld) [#/Vol] Ordered By: Yasmin Leung on 07-16-2023 Monocytes (Bld) [#/Vol] 0.9 10*3/uL 0.0-0.8 [facility] Monocytes/100 WBC Auto (Bld) Ordered By: Yasmin Leung on 07-16-2023 Monocytes/100 WBC (Bld) 6.8 % . [facility] Neutrophils Auto (Bld) [#/Vo l]Ordered By: Yasmin Leung on 07-16-2023 Neutrophils (Bld) [#/Vol] 8.0 10*3/uL 1.8-7.7 [facility] Neutrophils/100 WBC Auto (Bl d)Ordered By: Yasmin Leung on 07-16-2023 Neutrophils/100 WBC (Bld) 58.6 % . [facility] No Panel InformationOrdered By: Yasmin Leung on 07-16-2023 Estimated GFR (CKD-EPI) > 60.0 mL/Min [facility] Creatinine Clearance (Chem 119.81 [facility] Nucleated erythrocytes [Pres ence] in Blood by Automated countOrdered By: Yasmin Leung on 07-16-2023 Nucleated RBC Auto Ql (Bld) 0.1 /100{WBC} 0-0.5 [facility] Platelet mean volume Auto (B ld) [Entitic vol]Ordered By: Yasmin Leung on 07-16-2023 Platelet mean volume (Bld) [Entitic vol] 6.9 fL 6.3-10.7 [facility] Platelets Auto (Bld) [#/Vol] Ordered By: Yasmin Leung on 07-16-2023 Platelets (Bld) [#/Vol] 414 10*3/uL 150-450 [facility] Potassium [Moles/volume] in Serum or PlasmaOrdered By: Yasmin Leung on 07-16-2023 Potassium [Moles/Vol] 3.7 mmol/L 3.5-5.1 [facility] RBC Auto (Bld) [#/Vol]Ordere d By: Yasmin Leung on 07-16-2023 RBC (Bld) [#/Vol] 4.75 10*6/uL 3.60-5.00 [facility] Serum or plasma anion gap de terminationOrdered By: Yasmin Leung on 07-16-2023 Anion gap [Moles/Vol] 9.2 mmol/L 6.0-15.0 [facility] Sodium [Moles/volume] in Ser um or PlasmaOrdered By: Yasmin Leung on 07-16-2023 Sodium [Moles/Vol] 138 mmol/L 136-145 [facility] Urea nitrogen [Mass/volume] in Serum or PlasmaOrdered By: Yasmin Leung on 07-16-2023 Urea nitrogen [Mass/Vol] 10 mg/dL 7-25 [facility] WBC Auto (Bld) [#/Vol]Ordere d By: Yasmin Leung on 07-16-2023 WBC (Bld) [#/Vol] 13.6 10*3/uL 3.8-11.6 [facility] COVID CepheidOrdered By: Antonio Villeda on 07-05-2023 SARS-CoV-2 (COVID-19) Ab IA Ql Negative Negative [facility] Comment on above: This is a duplicate Cepheid Xpert Xpress CoV-2/Flu/RSV Plus RNA by RT-PCR result to be used for statistical tracking purpose only. SARS-CoV-2 (COVID-19) RNA SOILA+probe Ql (Unsp spec) [facility] COVID-19 / Flu A/B / RSV [...] or Cepheid Disclaimer revoked sooner. PERFORMED BY: [address] [address] PATHOLOGIST [employer] WAYNE WAKEFIELD M.D. Normal [facility] Comment on above: Performed By: #### G LULS #### Point of Care testing , Cepheid COVID PCR Negativeon 07-05-2023 SARS-CoV-2 (COVID-19) RNA SOILA+probe Ql (Unsp spec) Negative Normal Negative [facility] Comment on above: Result Comment: This is a duplicate Cepheid Xpert Xpress CoV-2/Flu/RSV Plus RNA by RT-PCR result to be used for statistical tracking purpose only. PERFORMED BY: [address] [address] PATHOLOGIST [employer] WAYNE WAKEFIELD M.D. Performed By: #### G LULS #### Point of Care testing , XR chest 2V*on 07-05-2023 XR chest 2V* [facility] Main [address] [address] XRay Report Signed Patient: Christiane Perez MR#: [id number] 2 : 1975 Acct:[id number] Age/Sex: 48 / F ADM Date: 07/05/23 Loc: ER Room: Type: [facility] ER Attending Dr: Copies to: Elio [...] Giovanny Cleveland M.D.07/05/2023 2:41 PM Dictation Location: [place] [address] Transcribed By: [facility] 07/05/23 1441 Dictated By: Giovanny Cleveland DO 07/05/23 1437 Signed By: 07/05/23 1441 [facility] Quick Strepon 06-20-2023 S. pyogenes Org specific cx Ql (Throat) Negative [employer] Other Quick Strep [facility] [employer] Other CT chest wo conon 04-09-2023 CT chest wo [facility] Main [place] [address] [place] [address] CT Scan Report Signed Patient: Christiane Perez MR#: [id number] 2 : 1975 Acct:[id number] Age/Sex: 48 / F ADM Date: 04/09/23 Loc: [facility] Room: Type: [facility] Attending Dr: Valeriano Horta MD Copies [...] MRI. Impression dictated by: Rodger Johnson Jr., Francoise04/09/2023 3:00 PM Dictation Location: [place] [address] Transcribed By: [facility] 04/09/23 1500 Dictated By: Rodger Johnson Jr, DO 04/09/23 1455 Signed By: 04/09/23 1500 [facility] SURGICAL PATHOLOGY REFERENCE LAB CONSULTon 03-19-2023 CASE REPORT Normal [facility] Comment on above: Order Comment: Speci men Type: SLIDE Ordering Facility: [facility] Address: [address] [place] [phone] Result Comment: Surg ical Pathology Report Case: [id number] Authorizing Provider: Gregory Aranda MD Collected: 03/19/2023 09:16 AM Ordering Location: [facility] Received: 03/19/2023 09:14 AM Pathologist: Mando Gar MD Specimen: SLIDE(S), 8 SLIDES [id number] Performed By: #### L [id number] #### [facility] CLIA [id number] [address] [place] [address] [place] CLINICAL HISTORY CONSULT REQUESTED [facility] Comment on above: Order Comment: Speci men Type: SLIDE Ordering Facility: [facility] Address: [address] [place] [phone] Performed By: #### L [id number] #### [facility] CLIA [id number] [address] [facility] [place] [address] [place] DIAGNOSIS COMMENT Normal [facility] Comment on above: Order Comment: Speci men Type: SLIDE Ordering Facility: [facility] Address: [address] [place] [phone] Result Comment: Than k you for sharing [...] available, is recommended. Performed By: #### L [id number] #### [facility] CLIA [id number] [facility] [place] [address] [place] FINAL DIAGNOSIS Normal [facility] Comment on above: Order Comment: Speci men Type: SLIDE Ordering Facility: [facility] Address: [address] [place], [place] [phone] Result Comment: Lung , left upper lobe, transbronchial biopsy ([id number], A1; 03/11/2023): -Organizing acute lung injury with fibrin and acute inflammation Performed By: #### L [id number] #### [facility] CLIA [id number] [address] [place] [address] [place] FINAL PERFORMING LAB Normal [facility] Comment on above: Order Comment: Speci men Type: SLIDE Ordering Facility: [facility] Address: [address] [place], [place] [phone] Result Comment: Diag nostic interpretation performed at [facility], [address] [place] [address] CLIA# [id number] [employer]ist: Don Meehan M.D. Performed By: #### L [id number] #### [facility] CLIA [id number] [address] [place] [address] [place] XR chest 1V portableon 03-17 XR chest 1V portable [facility] [place] [address] XRay Report Signed Patient: Christiane Perez MR#: [id number] 2 : 1975 Acct:[id number] Age/Sex: 48 / F ADM Date: 03/10/23 Loc: Room: [address] [place] [address] Type: DIS IN Attending Dr: Krunal Kelly [...] Johnson Jr., D.O.03/17/2023 10:12 AM Dictation Location: [place] [address] Transcribed By: [facility] 03/17/23 1012 Dictated By: Rodger Johnson Jr, DO 03/17/23 1012 Signed By: 03/17/23 1012 Normal [facility] A1C with Estimated Average G godlen 03-14-2023 Glucose [Mass/Vol] 171 mg/dL Normal [facility] Comment on above: Result Comment: PERF ORMED BY: [facility] [address] [place] [address] PATHOLOGIST [employer] WAYNE WAKEFIELD M.D. Performed By: #### G LULS #### Point of Care testing , HbA1c (Bld) [Mass fraction] 7.6 % High 4.3-5.6 [facility] Comment on above: Result Comment: Incr eased risk for diabetes: 5.7 - 6.4 diabetes: >6.4 glycemic control for adults with diabetes: <7.0 Performed By: #### G LULS #### Point of Care testing , Alanine aminotransferase [En zymatic activity/volume] in Serum or PlasmaOrdered By: Krunal Kelly on 03-14-2023 ALT [Catalytic activity/Vol] 5 U/L 7-52 [facility] Albumin [Mass/volume] in Ser um or Plasma by Bromocresol green (BCG) dye binding methoOrdered By: Krunal Kelly on 03-14-2023 Albumin BCG dye [Mass/Vol] 2.9 g/dL 3.5-5.7 [facility] Alkaline phosphatase [Enzyma tic activity/volume] in Serum or PlasmaOrdered By: Krunal Kelly on 03-14-2023 ALP [Catalytic activity/Vol] 94 U/L 34-104 [facility] Aspartate aminotransferase [ Enzymatic activity/volume] in Serum or PlasmaOrdered By: Krunal Kelly on 07-30-2023 AST [Catalytic activity/Vol] 8 U/L 13-39 [facility] Basophils Auto (Bld) [#/Vol] Ordered By: Eron Wood on 03-14-2023 Basophils (Bld) [#/Vol] 0.1 10*3/uL 0.0-0.2 [facility] Basophils/100 WBC Auto (Bld) Ordered By: Eron Wood on 03-14-2023 Basophils/100 WBC (Bld) 0.7 % . [facility] Bilirubin.total [Mass/volume ] in Serum or PlasmaOrdered By: Krunal Kelly on 03-14-2023 Bilirubin [Mass/Vol] 0.7 mg/dL 0.3-1.0 [facility] Calcium [Mass/volume] in Ser um or PlasmaOrdered By: Krunal Kelly on 03-14-2023 Calcium [Mass/Vol] 8.3 mg/dL 8.6-10.3 [facility] Carbon dioxide, total [Moles /volume] in Serum or PlasmaOrdered By: Krunal Kelly on 03-14-2023 CO2 [Moles/Vol] 24.8 mmol/L 21.0-31.0 [facility] Chloride [Moles/volume] in S kaitlin or PlasmaOrdered By: Krunal Kelly on 03-14-2023 Chloride [Moles/Vol] 108 mmol/L 98-107 [facility] Complete Blood Count Auto Di ffon 03-14-2023 Basophils (Bld) [#/Vol] 0.1 10*3/uL Normal 0.0-0.2 [facility] Comment on above: Result Comment: PERF ORMED BY: [place] [address] PATHOLOGIST [employer] HEL[employer] WAYNE WAKEFIELD M.D. Performed By: #### V ANCT #### [facility] [address] Basophils/100 WBC (Bld) 0.7 % Normal . [facility] Comment on above: Performed By: #### V ANCT #### [address] Eosinophils (Bld) [#/Vol] 0.4 10*3/uL Normal 0.0-0.45 [facility] Comment on above: Performed By: #### V ANCT #### [address] Eosinophils/100 WBC (Bld) 4.4 % Normal . [facility] Comment on above: Performed By: #### V ANCT #### [address] Erythrocyte distribution width (RBC) [Ratio] 15.5 % High 11.9-15.3 [facility] Comment on above: Performed By: #### V ANCT #### [address] Hematocrit (Bld) [Volume fraction] 35.1 % Normal 34.0-46.4 [facility] Comment on above: Performed By: #### V ANCT #### [address] Hemoglobin (Bld) [Mass/Vol] 12.0 g/dL Normal 11.8-15.4 [facility] Comment on above: Performed By: #### V ANCT #### [address] Lymphocytes (Bld) [#/Vol] 1.6 10*3/uL Normal 1.00-4.8 [facility] Comment on above: Performed By: #### V ANCT #### [address] Lymphocytes/100 WBC (Bld) 16.8 % Normal . [facility] Comment on above: Performed By: #### V ANCT #### [address] MCH (RBC) [Entitic mass] 32.8 pg Normal 24.7-34.3 [facility] Comment on above: Performed By: #### V ANCT #### [place] [address] [place] MCV (RBC) [Entitic vol] 96.4 fL Normal 80-100 [facility] Comment on above: Performed By: #### V ANCT #### [address] Mean Corpuscular HGB Conc 34.1 g/dL Normal 32.0-35.0 [facility] Comment on above: Performed By: #### V ANCT #### [address] Monocytes (Bld) [#/Vol] 0.7 10*3/uL Normal 0.0-0.8 [facility] Comment on above: Performed By: #### V ANCT #### [address] Monocytes/100 WBC (Bld) 7.1 % Normal . [facility] Comment on above: Performed By: #### V ANCT #### [address] Neutrophils (Bld) [#/Vol] 6.8 10*3/uL Normal 1.8-7.7 [facility] Comment on above: Performed By: #### V ANCT #### [address] Neutrophils/100 WBC (Bld) 71.0 % Normal . [facility] Comment on above: Performed By: #### V ANCT #### [address] NRBC% 0.1 /100{WBC} Normal 0-0.5 [facility] Comment on above: Performed By: #### V ANCT #### [address] Platelet mean volume (Bld) [Entitic vol] 6.2 fL Low 6.3-10.7 [facility] Comment on above: Performed By: #### V ANCT #### [address] Platelets (Bld) [#/Vol] 424 10*3/uL Normal 150-450 [facility] Comment on above: Performed By: #### V ANCT #### [facility] [address] RBC (Bld) [#/Vol] 3.65 10*6/uL Normal 3.60-5.00 [facility] Comment on above: Performed By: #### V ANCT #### [facility] [address] WBC (Bld) [#/Vol] 9.6 10*3/uL Normal 3.8-11.6 [facility] Comment on above: Performed By: #### V ANCT #### [facility] [address] Comprehensive Metabolic Pane moose 03-14-2023 Albumin [Mass/Vol] 2.9 g/dL Low 3.5-5.7 [facility] Comment on above: Performed By: #### G MARE #### Point of Care testing , Albumin/Globulin [Mass ratio] 0.8 {ratio} Normal [facility] Comment on above: Performed By: #### G MARE #### Point of Care testing , ALP [Catalytic activity/Vol] 94 U/L Normal 34-104 [facility] Comment on above: Performed By: #### G MARYLS #### Point of Care testing , ALT [Catalytic activity/Vol] 5 U/L Low 7-52 [facility] Comment on above: Performed By: #### G MARE #### Point of Care testing , Anion gap [Moles/Vol] 8.9 mmol/L Normal 6.0-15.0 [facility] Comment on above: Performed By: #### G MARE #### Point of Care testing , AST [Catalytic activity/Vol] 8 U/L Low 13-39 [facility] Comment on above: Performed By: #### G MARYLS #### Point of Care testing , Bilirubin [Mass/Vol] 0.7 mg/dL Normal 0.3-1.0 [facility] Comment on above: Performed By: #### G LULS #### Point of Care testing , Calcium [Mass/Vol] 8.3 mg/dL Low 8.6-10.3 [facility] Comment on above: Performed By: #### G LULS #### Point of Care testing , Chloride [Moles/Vol] 108 mmol/L High 98-107 [facility] Comment on above: Performed By: #### G LULS #### Point of Care testing , CO2 [Moles/Vol] 24.8 mmol/L Normal 21.0-31.0 [facility] Comment on above: Performed By: #### G LULS #### Point of Care testing , Creatinine [Mass/Vol] 0.68 mg/dL Normal 0.60-1.20 [facility] Comment on above: Performed By: #### G LULS #### Point of Care testing , Creatinine Clr Calc Pharmacy 119.15 [facility] Comment on above: Result Comment: PERF ORMED BY: [facility] [address] [place] [address] PATHOLOGIST [employer] WAYNE WAKEFIELD M.D. Performed By: #### G LULS #### Point of Care testing , GFR/1.73 sq M.predicted MDRD (S/P/Bld) [Vol rate/Area] mL/min/{1.73_m2} [facility] Comment on above: Performed By: #### G LULS #### Point of Care testing , Globulin (S) [Mass/Vol] 3.7 g/dL [facility] Comment on above: Performed By: #### G LULS #### Point of Care testing , Glucose [Mass/Vol] 86 mg/dL Normal 70-100 [facility] Comment on above: Result Comment: [place] Glucose Reference Range is dependent on time and content of last meal. Glucose of more than 200 mg/dL in a nonstressed, ambulatory subject supports the diagnosis of Diabetes Mellitus. ADA recommended reference range Performed By: #### G LULS #### Point of Care testing , Potassium [Moles/Vol] 3.7 mmol/L Normal 3.5-5.1 [facility] Comment on above: Performed By: #### G LULS #### Point of Care testing , Protein [Mass/Vol] 6.6 g/dL Normal 6.4-8.9 [facility] Comment on above: Performed By: #### G LULS #### Point of Care testing , Sodium [Moles/Vol] 138 mmol/L Normal 136-145 [facility] Comment on above: Performed By: #### G LULS #### Point of Care testing , Urea nitrogen [Mass/Vol] 6 mg/dL Low 7-25 [facility] Comment on above: Performed By: #### G LULS #### Point of Care testing , Creatinine [Mass/volume] in Serum or PlasmaOrdered By: Krunal Kelly on 03-14-2023 Creatinine [Mass/Vol] 0.68 mg/dL 0.60-1.20 [facility] Eosinophils Auto (Bld) [#/Vo l]Ordered By: Eron Wood on 03-14-2023 Eosinophils (Bld) [#/Vol] 0.4 10*3/uL 0.0-0.45 [facility] Eosinophils/100 WBC Auto (Bl d)Ordered By: Eron Wood on 03-14-2023 Eosinophils/100 WBC (Bld) 4.4 % . [facility] Erythrocyte distribution wid th Auto (RBC) [Ratio]Ordered By: Eron Wood on 03-14-2023 Erythrocyte distribution width (RBC) [Ratio] 15.5 % 11.9-15.3 [facility] Globulin Calc (S) [Mass/Vol] Ordered By: Krunal Kelly on 03-14-2023 Globulin (S) [Mass/Vol] 3.7 g/dL [facility] Glucose Glucometer (BldC) [M ass/Vol]Ordered By: Krunal Kelly on 03-14-2023 Glucose [Mass/Vol] 249 mg/dL [facility] Comment on above: Random Glucose Refer ence Range is dependent on time and content of last meal. Glucose of more than 200 mg/dL in a nonstressed, ambulatory subject supports the diagnosis of Diabetes Mellitus. Glucose Poct Glucometerson 0 03-14-2023 Glucose [Mass/Vol] 249 mg/dL Normal [facility] Comment on above: Result Comment: [place] om Glucose Reference Range is dependent on time and content of last meal. Glucose of more than 200 mg/dL in a nonstressed, ambulatory subject supports the diagnosis of Diabetes Mellitus. PERFORMED BY: [facility] [address] [place] [id number] PATHOLOGIST [employer] WAYNE WAKEFIELD M.D. Performed By: #### G LULS #### Point of Care testing , Commemt1 Glu2: Cleaned Meter Normal [facility] Comment on above: Result Comment: PERF ORMED BY: [facility] [address] [place] [address] PATHOLOGIST [employer] WAYNE WAKEFIELD M.D. Performed By: #### G LULS #### Point of Care testing , Glucose [Mass/Vol] 95 mg/dL Normal [facility] Comment on above: Result Comment: [place] om Glucose Reference Range is dependent on time and content of last meal. Glucose of more than 200 mg/dL in a nonstressed, ambulatory subject supports the diagnosis of Diabetes Mellitus. Performed By: #### G LULS #### Point of Care testing , Glucose [Mass/volume] in Ser um or PlasmaOrdered By: Krunal Kelly on 03-14-2023 Glucose [Mass/Vol] 86 mg/dL 70-100 [facility] Comment on above: ADA recommended [...] from glycated hemoglobin (Bld) [Mass/Vol] 171 mg/dL [facility] Hematocrit Auto (Bld) [Volum e fraction]Ordered By: Eron Wood on 03-14-2023 Hematocrit (Bld) [Volume fraction] 35.1 % 34.0-46.4 [facility] Hemoglobin A1c percentageOrd ered By: Krunal Kelly on 03-14-2023 HbA1c (Bld) [Mass fraction] 7.6 % 4.3-5.6 [facility] Comment on above: Increased risk for d iabetes: 5.7 - 6.4diabetes: >6.4glycemic control for adults with diabetes: <7.0 Hemoglobin [Mass/volume] in BloodOrdered By: Eron Wood on 03-14-2023 Hemoglobin (Bld) [Mass/Vol] 12.0 g/dL 11.8-15.4 [facility] Leukocytes [#/volume] correc billy for nucleated erythrocytes in Blood by Automated counOrdered By: Eron Wood on 03-14-2023 WBC corrected for nucl RBC Auto (Bld) [#/Vol] 9.6 10*3/uL 3.8-11.6 [facility] Lymphocytes Auto (Bld) [#/Vo l]Ordered By: Eron Wood on 03-14-2023 Lymphocytes (Bld) [#/Vol] 1.6 10*3/uL 1.00-4.8 [facility] Lymphocytes/100 WBC Auto (Bl d)Ordered By: Eron Wood on 03-14-2023 Lymphocytes/100 WBC (Bld) 16.8 % . [facility] MCH Auto (RBC) [Entitic mass ]Ordered By: Eron Wood on 03-14-2023 MCH (RBC) [Entitic mass] 32.8 pg 24.7-34.3 [facility] MCHC Auto (RBC) [Mass/Vol]Or dered By: Eron Wood on 03-14-2023 MCHC (RBC) [Mass/Vol] 34.1 g/dL 32.0-35.0 [facility] MCV Auto (RBC) [Entitic vol] Ordered By: Eron Wood on 03-14-2023 MCV (RBC) [Entitic vol] 96.4 fL 80-100 [facility] Monocytes Auto (Bld) [#/Vol] Ordered By: Eron Wood on 03-14-2023 Monocytes (Bld) [#/Vol] 0.7 10*3/uL 0.0-0.8 [facility] Monocytes/100 WBC Auto (Bld) Ordered By: Eron Wood on 03-14-2023 Monocytes/100 WBC (Bld) 7.1 % . [facility] Neutrophils Auto (Bld) [#/Vo l]Ordered By: Eron Wood on 03-14-2023 Neutrophils (Bld) [#/Vol] 6.8 10*3/uL 1.8-7.7 [facility] Neutrophils/100 WBC Auto (Bl d)Ordered By: Eron Wood on 03-14-2023 Neutrophils/100 WBC (Bld) 71.0 % . [facility] No Panel InformationOrdered By: Krunal Kelly on 03-14-2023 Bedside Glucose Comment Glu2: cleaned meter [facility] Estimated GFR (CKD-EPI) > 60.0 mL/Min [facility] Pharmacy Creatinine Clearance (Chem 119.15 [facility] Nucleated erythrocytes [Pres ence] in Blood by Automated countOrdered By: Eron Wood on 03-14-2023 Nucleated RBC Auto Ql (Bld) 0.1 /100{WBC} 0-0.5 [facility] Platelet mean volume Auto (B ld) [Entitic vol]Ordered By: Eron Wood on 03-14-2023 Platelet mean volume (Bld) [Entitic vol] 6.2 fL 6.3-10.7 [facility] Platelets Auto (Bld) [#/Vol] Ordered By: Eron Wood on 03-14-2023 Platelets (Bld) [#/Vol] 424 10*3/uL 150-450 [facility] Potassium [Moles/volume] in Serum or PlasmaOrdered By: Krunal Kelly on 03-14-2023 Potassium [Moles/Vol] 3.7 mmol/L 3.5-5.1 [facility] Protein [Mass/volume] in Ser um or PlasmaOrdered By: Krunal Kelly on 03-14-2023 Protein [Mass/Vol] 6.6 g/dL 6.4-8.9 [facility] RBC Auto (Bld) [#/Vol]Ordere d By: Eron Wood on 03-14-2023 RBC (Bld) [#/Vol] 3.65 10*6/uL 3.60-5.00 [facility] Serum or plasma albumin/glob ulin mass ratioOrdered By: Krunal Kelly on 03-14-2023 Albumin/Globulin [Mass ratio] 0.8 {ratio} [facility] Serum or plasma anion gap de terminationOrdered By: Krunal Kelly on 03-14-2023 Anion gap [Moles/Vol] 8.9 mmol/L 6.0-15.0 [facility] Sodium [Moles/volume] in Ser um or PlasmaOrdered By: Krunal Kelly on 03-14-2023 Sodium [Moles/Vol] 138 mmol/L 136-145 [facility] Urea nitrogen [Mass/volume] in Serum or PlasmaOrdered By: Krunal Kelly on 03-14-2023 Urea nitrogen [Mass/Vol] 6 mg/dL 7- [facility] WBC Auto (Bld) [#/Vol]Ordere d By: Eron Wood on 03-14-2023 WBC (Bld) [#/Vol] 9.6 10*3/uL 3.8-11.6 [facility] Basic Metabolic Panelon 02-14 Anion gap [Moles/Vol] 8.9 mmol/L Normal 6.0-15.0 [facility] Comment on above: Performed By: #### C BC, BMP, MG #### [facility] [address] [place] [address] [place] Calcium [Mass/Vol] 8.4 mg/dL Low 8.6-10.3 [facility] Comment on above: Performed By: #### C BC, BMP, MG #### [facility] [address] [place] [address] [place] Chloride [Moles/Vol] 109 mmol/L High 98-107 [facility] Comment on above: Performed By: #### C BC, BMP, MG #### [facility] [address] CO2 [Moles/Vol] 24.9 mmol/L Normal 21.0-31.0 [facility] Comment on above: Performed By: #### C BC, BMP, MG #### [facility] [address] Creatinine [Mass/Vol] 0.61 mg/dL Normal 0.60-1.20 [facility] Comment on above: Performed By: #### C BC, BMP, MG #### [facility] [address] [place] [address] [place] Creatinine Clr Calc Pharmacy 132.97 [facility] Comment on above: Result Comment: PERF ORMED BY: [place] [address] PATHOLOGIST [employer] WAYNE WAKEFIELD M.D. Performed By: #### C BC, BMP, MG #### [facility] [address] [place] [address] [place] GFR/1.73 sq M.predicted MDRD (S/P/Bld) [Vol rate/Area] mL/min/{1.73_m2} [facility] Comment on above: Performed By: #### C BC, BMP, MG #### [facility] [address] Glucose [Mass/Vol] 97 mg/dL Normal 70-100 [facility] Comment on above: Result Comment: [place] Glucose Reference Range is dependent on time and content of last meal. Glucose of more than 200 mg/dL in a nonstressed, ambulatory subject supports the diagnosis of Diabetes Mellitus. ADA recommended reference range Performed By: #### C BC, BMP, MG #### [facility] [address] Potassium [Moles/Vol] 3.8 mmol/L Normal 3.5-5.1 [facility] Comment on above: Performed By: #### C BC, BMP, MG #### [facility] [address] Sodium [Moles/Vol] 139 mmol/L Normal 136-145 [facility] Comment on above: Performed By: #### C BC, BMP, MG #### [facility] [address] Urea nitrogen [Mass/Vol] 6 mg/dL Low 7-25 [facility] Comment on above: Performed By: #### C BC, BMP, MG #### [facility] [address] Complete Blood Count Auto Di ffon 03-13-2023 Basophils (Bld) [#/Vol] 0.0 10*3/uL Normal 0.0-0.2 [facility] Comment on above: Result Comment: PERF ORMED BY: [place] [address] PATHOLOGIST [employer] WAYNE WAKEFIELD M.D. Performed By: #### C BC, BMP, MG #### [address] Basophils/100 WBC (Bld) 0.5 % Normal . [facility] Comment on above: Performed By: #### C BC, BMP, MG #### [facility] [address] Eosinophils (Bld) [#/Vol] 0.4 10*3/uL Normal 0.0-0.45 [facility] Comment on above: Performed By: #### C BC, BMP, MG #### [facility] [address] Eosinophils/100 WBC (Bld) 4.5 % Normal . [facility] Comment on above: Performed By: #### C BC, BMP, MG #### [facility] [address] Erythrocyte distribution width (RBC) [Ratio] 15.7 % High 11.9-15.3 [facility] Comment on above: Performed By: #### C BC, BMP, MG #### [address] Hematocrit (Bld) [Volume fraction] 36.2 % Normal 34.0-46.4 [facility] Comment on above: Performed By: #### C BC, BMP, MG #### [address] Hemoglobin (Bld) [Mass/Vol] 12.1 g/dL Normal 11.8-15.4 [facility] Comment on above: Performed By: #### C BC, BMP, MG #### [address] Lymphocytes (Bld) [#/Vol] 1.5 10*3/uL Normal 1.00-4.8 [facility] Comment on above: Performed By: #### C BC, BMP, MG #### [address] Lymphocytes/100 WBC (Bld) 16.5 % Normal . [facility] Comment on above: Performed By: #### C BC, BMP, MG #### [address] MCH (RBC) [Entitic mass] 32.3 pg Normal 24.7-34.3 [facility] Comment on above: Performed By: #### C BC, BMP, MG #### [address] MCV (RBC) [Entitic vol] 96.7 fL Normal 80-100 [facility] Comment on above: Performed By: #### C BC, BMP, MG #### [address] Mean Corpuscular HGB Conc 33.4 g/dL Normal 32.0-35.0 [facility] Comment on above: Performed By: #### C BC, BMP, MG #### [address] Monocytes (Bld) [#/Vol] 0.7 10*3/uL Normal 0.0-0.8 [facility] Comment on above: Performed By: #### C BC, BMP, MG #### [facility] [address] [place] [address] [place] Monocytes/100 WBC (Bld) 8.0 % Normal . [facility] Comment on above: Performed By: #### C BC, BMP, MG #### [facility] [address] [place] [address] [place] Neutrophils (Bld) [#/Vol] 6.6 10*3/uL Normal 1.8-7.7 [facility] Comment on above: Performed By: #### C BC, BMP, MG #### [facility] [address] [place] [address] [place] Neutrophils/100 WBC (Bld) 70.5 % Normal . [facility] Comment on above: Performed By: #### C BC, BMP, MG #### [facility] [address] [place] [address] [place] NRBC% 0.1 /100{WBC} Normal 0-0.5 [facility] Comment on above: Performed By: #### C BC, BMP, MG #### [facility] [address] [place] [address] [place] Platelet mean volume (Bld) [Entitic vol] 6.6 fL Normal 6.3-10.7 [facility] Comment on above: Performed By: #### C BC, BMP, MG #### [facility] [address] [place] [address] [place] Platelets (Bld) [#/Vol] 398 10*3/uL Normal 150-450 [facility] Comment on above: Performed By: #### C BC, BMP, MG #### [facility] [address] [place] [address] [place] RBC (Bld) [#/Vol] 3.75 10*6/uL Normal 3.60-5.00 [facility] Comment on above: Performed By: #### C BC, BMP, MG #### [facility] [address] [place] [address] [place] WBC (Bld) [#/Vol] 9.3 10*3/uL Normal 3.8-11.6 [facility] Comment on above: Performed By: #### C BC, BMP, MG #### [facility] [address] [place] [address] Glucose Poct Glucometerson 0 03-13-2023 Commemt1 Glu2: Cleaned Meter Normal [facility] Comment on above: Result Comment: PERF ORMED BY: [place] [address] PATHOLOGIST [employer] WAYNE WAKEFIELD M.D. Performed By: #### V ANCT #### [facility] [address] [place] [address] Glucose [Mass/Vol] 152 mg/dL Normal [facility] Comment on above: Result Comment: [place] om Glucose Reference Range is dependent on time and content of last meal. Glucose of more than 200 mg/dL in a nonstressed, ambulatory subject supports the diagnosis of Diabetes Mellitus. Performed By: #### V ANCT #### [facility] [address] [place] [address] Glucose [Mass/Vol] 190 mg/dL Normal [facility] Comment on above: Result Comment: [place] om Glucose Reference Range is dependent on time and content of last meal. Glucose of more than 200 mg/dL in a nonstressed, ambulatory subject supports the diagnosis of Diabetes Mellitus. PERFORMED BY: [place] [address] PATHOLOGIST [employer] WAYNE WAKEFIELD M.D. Performed By: #### G LULS #### Point of Care testing , Glucose [Mass/Vol] 176 mg/dL Normal [facility] Comment on above: Result Comment: [place] om Glucose Reference Range is dependent on time and content of last meal. Glucose of more than 200 mg/dL in a nonstressed, ambulatory subject supports the diagnosis of Diabetes Mellitus. PERFORMED BY: [place] [address] PATHOLOGIST [employer] WAYNE WAKEFIELD M.D. Performed By: #### G LULS #### Point of Care testing , Glucose [Mass/Vol] 107 mg/dL Normal [facility] Comment on above: Result Comment: [facility] Glucose Reference Range is dependent on time and content of last meal. Glucose of more than 200 mg/dL in a nonstressed, ambulatory subject supports the diagnosis of Diabetes Mellitus. PERFORMED BY: [address] [address] PATHOLOGIST [employer] WAYNE WAKEFIELD M.D. Performed By: #### G LULS #### Point of Care testing , Glucose [Mass/Vol] 101 mg/dL Normal [facility] Comment on above: Result Comment: [facility] Glucose Reference Range is dependent on time and content of last meal. Glucose of more than 200 mg/dL in a nonstressed, ambulatory subject supports the diagnosis of Diabetes Mellitus. PERFORMED BY: [address] [place] [address] PATHOLOGIST [employer] WAYNE WAKEFIELD M.D. Performed By: #### G LULS #### Point of Care testing , Serum or plasma trough vanco mycin levelOrdered By: Eron Wood on 03-13-2023 Vancomycin trough [Mass/Vol] 16.8 ug/mL 10.0-20.0 [facility] Comment on above: Last dose: - Vancomycin,Troughon 03-13-20 23 Vancomycin,Trough 16.8 ug/mL Normal 10.0-20.0 [facility] Comment on above: Result Comment: Last dose: - PERFORMED BY: [facility] [address] [place] [address] PATHOLOGIST [employer] WAYNE WAKEFIELD M.D. Performed By: #### G LULS #### Point of Care testing , Ammoniaon 03-12-2023 Ammonia (P) [Moles/Vol] 31 umol/L Normal 11-35 [facility] Comment on above: Result Comment: PERF ORMED BY: [address] [place] [address] PATHOLOGIST [employer] WAYNE WAKEFIELD M.D. Performed By: #### G LULS #### Point of Care testing , Ammonia [Moles/volume] in Pl asmaOrdered By: Víctor Stallings on 03-12-2023 Ammonia (P) [Moles/Vol] 31 umol/L 11- [facility] Amphetamine Screen Ql (U)Ord ered By: Eron Wood on 03-12-2023 Amphetamines Ql (U) Negative Negative [facility] Barbiturates [Presence] in U rine by Screen methodOrdered By: Eron Wood on 03-12-2023 Barbiturates Screen Ql (U) Negative Negative [facility] Basic Metabolic Panelon 02-14 Anion gap [Moles/Vol] 9.5 mmol/L Normal 6.0-15.0 [facility] Comment on above: Performed By: #### G LULS #### Point of Care testing , Calcium [Mass/Vol] 8.2 mg/dL Low 8.6-10.3 [facility] Comment on above: Performed By: #### G LULS #### Point of Care testing , Chloride [Moles/Vol] 109 mmol/L High 98-107 [facility] Comment on above: Performed By: #### G LULS #### Point of Care testing , CO2 [Moles/Vol] 23.3 mmol/L Normal 21.0-31.0 [facility] Comment on above: Performed By: #### G LULS #### Point of Care testing , Creatinine [Mass/Vol] 0.73 mg/dL Normal 0.60-1.20 [facility] Comment on above: Performed By: #### G LULS #### Point of Care testing , Creatinine Clr Calc Pharmacy 111.29 Normal [facility] Comment on above: Result Comment: PERF ORMED BY: [facility] [address] [place] [address] PATHOLOGIST [employer] WAYNE WAKEFIELD M.D. Performed By: #### G LULS #### Point of Care testing , GFR/1.73 sq M.predicted MDRD (S/P/Bld) [Vol rate/Area] mL/min/{1.73_m2} Normal [facility] Comment on above: Performed By: #### G LULS #### Point of Care testing , Glucose [Mass/Vol] 62 mg/dL Low 70-100 [facility] Comment on above: Result Comment: [facility] Glucose Reference Range is dependent on time and content of last meal. Glucose of more than 200 mg/dL in a nonstressed, ambulatory subject supports the diagnosis of Diabetes Mellitus. ADA recommended reference range Performed By: #### G LULS #### Point of Care testing , Potassium [Moles/Vol] 3.8 mmol/L Normal 3.5-5.1 [facility] Comment on above: Performed By: #### G LULS #### Point of Care testing , Sodium [Moles/Vol] 138 mmol/L Normal 136-145 [facility] Comment on above: Performed By: #### G LULS #### Point of Care testing , Urea nitrogen [Mass/Vol] 8 mg/dL Normal 7-25 [facility] Comment on above: Performed By: #### G LULS #### Point of Care testing , Benzodiazepines Screen Ql (U )Ordered By: Eron Wood on 03-12-2023 Benzodiazepines Ql (U) Negative Negative [facility] Benzoylecgonine [Presence] i n Urine by Screen methodOrdered By: Eron Wood on 03-12-2023 Benzoylecgonine Screen Ql (U) Negative Negative [facility] CT head/brain wo conon 03-12 CT head/brain wo [facility] [place] [address] CT Scan Report Signed Patient: Christiane Perez MR#: [id number] 2 : 1975 Acct:[id number] Age/Sex: 48 / F ADM Date: 03/10/23 Loc: Room: [address] [place] [address] Type: ADM IN Attending Dr: Eron Wood [...] Vick Eden M.D.03/12/2023 4:47 PM Dictation Location: [place] [address] Transcribed By: [facility] 03/12/231646 Dictated By: Vick Eden II, MD 03/12/231643 Signed By: 03/12/231646 Normal [facility] Calciumon 03-12-2023 Calcium [Mass/Vol] 8.4 mg/dL Low 8.6-10.3 [facility] Comment on above: Result Comment: PERF ORMED BY: [facility] [address] [place] [address] PATHOLOGIST [employer] WAYNE WAKEFIELD M.D. Performed By: #### G LULS #### Point of Care testing , Cannabinoids [Presence] in U rine by Screen methodOrdered By: Eron Wood on 03-12-2023 Cannabinoids Screen Ql (U) Negative Negative [facility] Comment on above: These are unconfirme d results and should not be used for legal purposes. Drug Cut-Off Concentration: AMPH 1000 ng/mL HANNAH 200 ng/mL JENNIFER 200 ng/mL COCM 300 ng/mL OP 300 ng/mL PCP 25 ng/mL THC 20 ng/mL Complete Blood Count Auto Di ffon 03-12-2023 Basophils (Bld) [#/Vol] 0.1 10*3/uL Normal 0.0-0.2 [facility] Comment on above: Result Comment: PERF ORMED BY: [facility] [place] [address] PATHOLOGIST [employer] WAYNE WAKEFIELD M.D. Performed By: #### G LULS #### Point of Care testing , Basophils/100 WBC (Bld) 0.7 % Normal . [facility] Comment on above: Performed By: #### G LULS #### Point of Care testing , Eosinophils (Bld) [#/Vol] 0.3 10*3/uL Normal 0.0-0.45 [facility] Comment on above: Performed By: #### G LULS #### Point of Care testing , Eosinophils/100 WBC (Bld) 2.9 % Normal . [facility] Comment on above: Performed By: #### G LULS #### Point of Care testing , Erythrocyte distribution width (RBC) [Ratio] 15.8 % High 11.9-15.3 [facility] Comment on above: Performed By: #### G LULS #### Point of Care testing , Hematocrit (Bld) [Volume fraction] 35.6 % Normal 34.0-46.4 [facility] Comment on above: Performed By: #### G LULS #### Point of Care testing , Hemoglobin (Bld) [Mass/Vol] 11.8 g/dL Normal 11.8-15.4 [facility] Comment on above: Performed By: #### G LULS #### Point of Care testing , Lymphocytes (Bld) [#/Vol] 1.3 10*3/uL Normal 1.00-4.8 [facility] Comment on above: Performed By: #### G LULS #### Point of Care testing , Lymphocytes/100 WBC (Bld) 13.5 % Normal . [facility] Comment on above: Performed By: #### G LULS #### Point of Care testing , MCH (RBC) [Entitic mass] 32.4 pg Normal 24.7-34.3 [facility] Comment on above: Performed By: #### G MARE #### Point of Care testing , MCV (RBC) [Entitic vol] 97.7 fL Normal 80-100 [facility] Comment on above: Performed By: #### G MARE #### Point of Care testing , Mean Corpuscular HGB Conc 33.1 g/dL Normal 32.0-35.0 [facility] Comment on above: Performed By: #### G MARE #### Point of Care testing , Monocytes (Bld) [#/Vol] 0.9 10*3/uL High 0.0-0.8 [facility] Comment on above: Performed By: #### G MARE #### Point of Care testing , Monocytes/100 WBC (Bld) 9.2 % Normal . [facility] Comment on above: Performed By: #### Sophia GARVEY #### Point of Care testing , Neutrophils (Bld) [#/Vol] 7.2 10*3/uL Normal 1.8-7.7 [facility] Comment on above: Performed By: #### Sophia GARVEY #### Point of Care testing , Neutrophils/100 WBC (Bld) 73.7 % Normal . [facility] Comment on above: Performed By: #### G MARE #### Point of Care testing , NRBC% 0.1 /100{WBC} Normal 0-0.5 [facility] Comment on above: Performed By: #### G MARE #### Point of Care testing , Platelet mean volume (Bld) [Entitic vol] 6.8 fL Normal 6.3-10.7 [facility] Comment on above: Performed By: #### G MARE #### Point of Care testing , Platelets (Bld) [#/Vol] 342 10*3/uL Normal 150-450 [facility] Comment on above: Performed By: #### Sophia GARVEY #### Point of Care testing , RBC (Bld) [#/Vol] 3.64 10*6/uL Normal 3.60-5.00 [facility] Comment on above: Performed By: #### G LULS #### Point of Care testing , WBC (Bld) [#/Vol] 9.8 10*3/uL Normal 3.8-11.6 [facility] Comment on above: Performed By: #### G LULS #### Point of Care testing , Drug Screen,Urineon 03-12-20 23 Amphetamine Screen,Urine Negative Normal Negative [facility] Comment on above: Performed By: #### C BC, BMP, MG #### [place] [address] [place] Barbiturate Screen,Urine Negative Normal Negative [facility] Comment on above: Performed By: #### C BC, BMP, MG #### [place] [address] [place] Benzodiazepines Screen,Urine Negative Normal Negative [facility] Comment on above: Performed By: #### C BC, BMP, MG #### [place] [address] [place] Cannabinoid Screen,Urine Negative Normal Negative [facility] Comment on above: Result Comment: Thes e are unconfirmed results and should not be used for legal purposes. Drug Cut-Off Concentration: AMPH 1000 ng/mL HANNAH 200 ng/mL JENNIFER 200 ng/mL COCM 300 ng/mL OP 300 ng/mL PCP 25 ng/mL THC 20 ng/mL PERFORMED BY: [place] [address] PATHOLOGIST [employer] WAYNE WAKEFIELD M.D. Performed By: #### C BC, BMP, MG #### [place] [address] [place] Cocaine Screen,Urine Negative Normal Negative [facility] Comment on above: Performed By: #### C BC, BMP, MG #### [place] [address] [place] Opiate Screen,Urine Positive High Negative [facility] Comment on above: Performed By: #### C BC, BMP, MG #### [facility] [address] Phencyclidine Screen,Urine Negative Normal Negative [facility] Comment on above: Performed By: #### C BC, BMP, MG #### [address] Glucose Poct Glucometerson 0 03-12-2023 Commemt1 Glu2: Cleaned Meter Normal [facility] Comment on above: Result Comment: PERF ORMED BY: [place] [address] PATHOLOGIST [employer] WAYNE WAKEFIELD M.D. Performed By: #### C BC, BMP, MG #### [address] Glucose [Mass/Vol] 199 mg/dL Normal [facility] Comment on above: Result Comment: [place] om Glucose Reference Range is dependent on time and content of last meal. Glucose of more than 200 mg/dL in a nonstressed, ambulatory subject supports the diagnosis of Diabetes Mellitus. Performed By: #### C BC, BMP, MG #### [address] Glucose [Mass/Vol] 158 mg/dL Normal [facility] Comment on above: Result Comment: [place] om Glucose Reference Range is dependent on time and content of last meal. Glucose of more than 200 mg/dL in a nonstressed, ambulatory subject supports the diagnosis of Diabetes Mellitus. PERFORMED BY: [place] [address] PATHOLOGIST [employer] WAYNE WAKEFIELD M.D. Performed By: #### G LULS #### Point of Care testing , Glucose [Mass/Vol] 152 mg/dL Normal [facility] Comment on above: Result Comment: [place] om Glucose Reference Range is dependent on time and content of last meal. Glucose of more than 200 mg/dL in a nonstressed, ambulatory subject supports the diagnosis of Diabetes Mellitus. PERFORMED BY: [place] [address] PATHOLOGIST [employer] WAYNE WAKEFIELD M.D. Performed By: #### G LULS #### Point of Care testing , Commemt1 Glu2: Cleaned Meter Normal [facility] Comment on above: Result Comment: PERF ORMED BY: [facility] [address] [place] [address] PATHOLOGIST [employer] WAYNE WAKEFIELD M.D. Performed By: #### G LULS #### Point of Care testing , Glucose [Mass/Vol] 75 mg/dL Normal [facility] Comment on above: Result Comment: [facility] Glucose Reference Range is dependent on time and content of last meal. Glucose of more than 200 mg/dL in a nonstressed, ambulatory subject supports the diagnosis of Diabetes Mellitus. Performed By: #### G LULS #### Point of Care testing , Opiates [Presence] in Urine by Screen methodOrdered By: Eron Wood on 03-12-2023 Opiates Screen Ql (U) Positive Negative [facility] Phencyclidine Screen Ql (U)O rdered By: Eron Wood on 03-12-2023 Phencyclidine Ql (U) Negative Negative [facility] Vancomycin [Mass/volume] in Serum or Plasma --peakOrdered By: Eron Wood on 03-12-2023 Vancomycin peak [Mass/Vol] 14.6 ug/mL 20.0-40.0 [facility] Comment on above: Last dose: - Vancomycin,Peakon 03-12-2023 Vancomycin,Peak 14.6 ug/mL Low 20.0-40.0 [facility] Comment on above: Order Comment: Comme nt ?DRAW 1 HOUR AFTER INFUSION COMPLETES Date of last dose?: [id number] Time of last dose?: 1500 Result Comment: Last dose: - PERFORMED BY: [facility] [address] [place] [address] PATHOLOGIST [employer] WAYNE WAKEFIELD M.D. Performed By: #### G LULS #### Point of Care testing , Vancomycin,Troughon 03-12-20 Vancomycin,Trough 17.8 ug/mL Normal 10.0-20.0 [facility] Comment on above: Result Comment: Last dose: - PERFORMED BY: [place] [address] PATHOLOGIST [employer] WAYNE WAKEFIELD M.D. Performed By: #### V ANCT #### [place] [id number] [place] XR chest 1V portableon 03-12 XR chest 1V portable [facility] [place] [address] XRay Report Signed Patient: Christiane Perez MR#: [id number] 2 : 1975 Acct:[id number] Age/Sex: 48 / F ADM Date: 03/10/23 Loc: Room: [address] [place] [address] Type: ADM IN Attending Dr: Eron Wood [...] Vick Eden M.D.03/12/2023 4:19 PM Dictation Location: [place] [address] Transcribed By: [facility] 03/12/231618 Dictated By: Vick Eden II, MD 03/12/231616 Signed By: 03/12/23 161 [facility] XR chest 1V portable [facility] Main [place] [id number] XRay Report Signed Patient: Christiane Perez MR#: [id number] 2 : 1975 Acct:[id number] Age/Sex: 48 / F ADM Date: 03/10/23 Loc: Room: [address] [place] [address] Type: ADM IN Attending Dr: Eron Wood [...] Vick Eden M.D.03/12/2023 1:57 PM Dictation Location: [place] [address] Transcribed By: [facility] 03/12/23 1357 Dictated By: Vick Eden II, MD 03/12/23 135 Signed By: 03/12/23 1357 [facility] [employer] Specimen Processingon AF[employer] Specimen Processing Concentration Negative Performed at: [facility] [address] [id number] Billing Specialist: Juan Jennings PhD, Phone: [phone] Negative No acid fast bacilli isolated after 6 weeks. Performed at: [address] [id number] Billing Specialist: Juan Jennings PhD, Phone: [phone] PERFORMED BY: [place] [address] PATHOLOGIST [employer] WAYNE WAKEFIELD M.D. [facility] Comment on above: Performed By: #### G LULS #### Point of Care testing , Aerobic Cultureon 03-11-2023 Aerobic Culture ORGANISM: Janine tropicalis (O:CANTRO) Quantity of Growth Light Growth ORGANISM: Janine albicans (O:CANALB) Quantity of Growth Light Growth Gram Stain Result 1+ White Blood Cells Rare Epithelial Cells Rare Gram Positive Bacilli Rare Gram Positive Cocci 1+ Yeast Like Elements PERFORMED BY: [facility] [address] [place] [address] PATHOLOGIST [employer] WAYNE WAKEFIELD M.D. [facility] Comment on above: Performed By: #### A ERC #### [facility] [address] Bacteria identified Aer cx N om (Bronch spec)Ordered By: Errol Nicole on 03-11-2023 Bronchial Culture Janine tropicalis [facility] Bronchial Culture Janine albicans F [facility] Basic Metabolic Panelon 02-14 Anion gap [Moles/Vol] 8.9 mmol/L Normal 6.0-15.0 [facility] Comment on above: Performed By: #### C BC, BMP, MG #### [facility] [address] [place] [address] [place] Calcium [Mass/Vol] 8.4 mg/dL Low 8.6-10.3 [facility] Comment on above: Performed By: #### C BC, BMP, MG #### [facility] [address] [place] [address] [place] Chloride [Moles/Vol] 107 mmol/L Normal 98-107 [facility] Comment on above: Performed By: #### C BC, BMP, MG #### [facility] [address] [place] [address] [place] CO2 [Moles/Vol] 25.0 mmol/L Normal 21.0-31.0 [facility] Comment on above: Performed By: #### C BC, BMP, MG #### [facility] [address] [place] [address] [place] Creatinine [Mass/Vol] 0.72 mg/dL Normal 0.60-1.20 [facility] Comment on above: Performed By: #### C BC, BMP, MG #### [facility] [address] [place] [address] [place] Creatinine Clr Calc Pharmacy 112.35 [facility] Comment on above: Performed By: #### C BC, BMP, MG #### [address] GFR/1.73 sq M.predicted MDRD (S/P/Bld) [Vol rate/Area] mL/min/{1.73_m2} [facility] Comment on above: Performed By: #### C BC, BMP, MG #### [address] Glucose [Mass/Vol] 120 mg/dL High 70-100 [facility] Comment on above: Result Comment: [facility] Glucose Reference Range is dependent on time and content of last meal. Glucose of more than 200 mg/dL in a nonstressed, ambulatory subject supports the diagnosis of Diabetes Mellitus. ADA recommended reference range Performed By: #### C DANIELE BMP, MG #### [address] Potassium [Moles/Vol] 3.9 mmol/L Normal 3.5-5.1 [facility] Comment on above: Performed By: #### C DANIELE, BMP, MG #### [address] Sodium [Moles/Vol] 137 mmol/L Normal 136-145 [facility] Comment on above: Performed By: #### C DANIELE BMP, MG #### [address] Urea nitrogen [Mass/Vol] 10 mg/dL Normal 7-25 [facility] Comment on above: Performed By: #### C BC BMP, MG #### [address] Bronch Cultureon 03-11-2023 Bronch Culture ORGANISM: Janine tropicalis (O:CANTRO) Quantity of Growth Light Growth ORGANISM: Janine albicans (O:CANALB) Quantity of Growth Light Growth PERFORMED BY: [place] [address] PATHOLOGIST [employer] WAYNE WAKEFIELD M.D. [facility] Comment on above: Performed By: #### G LUAUGUSTIN #### Point of Care testing , Complete Blood Count Auto Di ffon 03-11-2023 Basophils (Bld) [#/Vol] 0.0 10*3/uL Normal 0.0-0.2 [facility] Comment on above: Result Comment: PERF ORMED BY: [place] [address] PATHOLOGIST [employer] WAYNE WAKEFIELD M.D. Performed By: #### C BC BMP, MG #### [address] Basophils/100 WBC (Bld) 0.3 % Normal . [facility] Comment on above: Performed By: #### C BC BMP, MG #### [address] Eosinophils (Bld) [#/Vol] 0.2 10*3/uL Normal 0.0-0.45 [facility] Comment on above: Performed By: #### C BC BMP, MG #### [address] Eosinophils/100 WBC (Bld) 2.1 % Normal . [facility] Comment on above: Performed By: #### C BC BMP, MG #### [address] Erythrocyte distribution width (RBC) [Ratio] 15.9 % High 11.9-15.3 [facility] Comment on above: Performed By: #### C BC BMP, MG #### [address] Hematocrit (Bld) [Volume fraction] 36.2 % Normal 34.0-46.4 [facility] Comment on above: Performed By: #### C BC BMP, MG #### [address] Hemoglobin (Bld) [Mass/Vol] 11.9 g/dL Normal 11.8-15.4 [facility] Comment on above: Performed By: #### C BC, BMP, MG #### [address] Lymphocytes (Bld) [#/Vol] 1.1 10*3/uL Normal 1.00-4.8 [facility] Comment on above: Performed By: #### C BC, BMP, MG #### [address] Lymphocytes/100 WBC (Bld) 9.5 % Normal . [facility] Comment on above: Performed By: #### C BC, BMP, MG #### [address] MCH (RBC) [Entitic mass] 31.9 pg Normal 24.7-34.3 [facility] Comment on above: Performed By: #### C BC, BMP, MG #### [address] MCV (RBC) [Entitic vol] 97.5 fL Normal 80-100 [facility] Comment on above: Performed By: #### C BC, BMP, MG #### [address] Mean Corpuscular HGB Conc 32.8 g/dL Normal 32.0-35.0 [facility] Comment on above: Performed By: #### C BC, BMP, MG #### [address] Monocytes (Bld) [#/Vol] 1.0 10*3/uL High 0.0-0.8 [facility] Comment on above: Performed By: #### C BC, BMP, MG #### [address] Monocytes/100 WBC (Bld) 8.9 % Normal . [facility] Comment on above: Performed By: #### C BC, BMP, MG #### [address] Neutrophils (Bld) [#/Vol] 9.3 10*3/uL High 1.8-7.7 [facility] Comment on above: Performed By: #### C BC, BMP, MG #### [address] [place] [address] [place] Neutrophils/100 WBC (Bld) 79.2 % Normal . [facility] Comment on above: Performed By: #### C BC, BMP, MG #### [facility] [address] NRBC% 0.0 /100{WBC} Normal 0-0.5 [facility] Comment on above: Performed By: #### C BC, BMP, MG #### [facility] [address] Platelet mean volume (Bld) [Entitic vol] 7.1 fL Normal 6.3-10.7 [facility] Comment on above: Performed By: #### C BC, BMP, MG #### [address] Platelets (Bld) [#/Vol] 360 10*3/uL Normal 150-450 [facility] Comment on above: Performed By: #### C BC, BMP, MG #### [address] RBC (Bld) [#/Vol] 3.72 10*6/uL Normal 3.60-5.00 [facility] Comment on above: Performed By: #### C BC, BMP, MG #### [address] WBC (Bld) [#/Vol] 11.7 10*3/uL High 3.8-11.6 [facility] Comment on above: Performed By: #### C BC, BMP, MG #### [address] Fungal cultureOrdered By: Corrina Nicole on 03-11-2023 Fungus identified Cx Nom (Unsp spec) [facility] Fungus # 2 identified in Uns pecified specimen by CultureOrdered By: Errol Nicole on 03-11-2023 Fungus identified # 2 Cx Nom (Unsp spec) [facility] Fungus # 3 identified in Uns pecified specimen by CultureOrdered By: Errol Nicole on 03-11-2023 Fungus identified # 3 Cx Nom (Unsp spec) [facility] Fungus (Mycology) Cultureon 03-11-2023 Fungus (Mycology) Culture Preliminary report Final report Janine glabrata Janine tropicalis Performed at: [place] [address] Billing Specialist: Juan Jennings PhD, Phone: [phone] Janine albicans Performed at: [address] [id number] Billing Specialist: Juan Jennings PhD, Phone: [phone] PERFORMED BY: [address] [place] [address] PATHOLOGIST [employer] WAYNE WAKEFIELD M.D. [facility] Comment on above: Performed By: #### G LULS #### Point of Care testing , Fungus (Mycology) Result 2on 03-11-2023 Fungus (Mycology) Result 2 Janine tropicalis Performed at: [address] [id number] Billing Specialist: Juan Jennings PhD, Phone: [phone] Janine albicans Performed at: [address] [id number] Billing Specialist: Juan Jennings PhD, Phone: [phone] PERFORMED BY: [address] [address] PATHOLOGIST [employer] WAYNE WAKEFIELD M.D. [facility] Comment on above: Performed By: #### G LULS #### Point of Care testing , Glucose Poct Glucometerson 0 03-11-2023 Commemt1 Glu2: Cleaned Meter [facility] Comment on above: Result Comment: PERF ORMED BY: [address] [address] PATHOLOGIST [employer] WAYNE WAKEFIELD M.D. Performed By: #### G LULS #### Point of Care testing , Glucose [Mass/Vol] 121 mg/dL [facility] Comment on above: Result Comment: [place] om Glucose Reference Range is dependent on time and content of last meal. Glucose of more than 200 mg/dL in a nonstressed, ambulatory subject supports the diagnosis of Diabetes Mellitus. Performed By: #### G LULS #### Point of Care testing , Commemt1 Glu2: Cleaned Meter Normal [facility] Comment on above: Result Comment: PERF ORMED BY: [address] [place] [address] PATHOLOGIST [employer] HEL[employer] WAYNE WAKEFIELD M.D. Performed By: #### G LULS #### Point of Care testing , Glucose [Mass/Vol] 80 mg/dL [facility] Comment on above: Result Comment: [place] om Glucose Reference Range is dependent on time and content of last meal. Glucose of more than 200 mg/dL in a nonstressed, ambulatory subject supports the diagnosis of Diabetes Mellitus. Performed By: #### G LULS #### Point of Care testing , Glucose [Mass/Vol] 134 mg/dL [facility] Comment on above: Result Comment: [place] om Glucose Reference Range is dependent on time and content of last meal. Glucose of more than 200 mg/dL in a nonstressed, ambulatory subject supports the diagnosis of Diabetes Mellitus. PERFORMED BY: [address] [place] [address] PATHOLOGIST [employer]CH[employer]IC HELPER WAYNE WAKEFIELD M.D. Performed By: #### G LULS #### Point of Care testing , Commemt1 [facility] Comment on above: Result Comment: Glu2 : WILL NOTIFY DR/RN PERFORMED BY: [address] [place] [address] PATHOLOGIST [employer]IC HELPER WAYNE WAKEFIELD M.D. Performed By: #### G LULS #### Point of Care testing , Glucose [Mass/Vol] 58 mg/dL Off scale low [facility] Comment on above: Result Comment: [place] om Glucose Reference Range is dependent on time and content of last meal. Glucose of more than 200 mg/dL in a nonstressed, ambulatory subject supports the diagnosis of Diabetes Mellitus. Performed By: #### G LULS #### Point of Care testing , Commemt1 Glu2: Cleaned Meter Normal [facility] Comment on above: Result Comment: PERF ORMED BY: [address] [place] [address] PATHOLOGIST [employer]CH[employer]IC HELPER WAYNE WAKEFIELD M.D. Performed By: #### G MARE #### Point of Care testing , Glucose [Mass/Vol] 249 mg/dL [facility] Comment on above: Result Comment: [place] om Glucose Reference Range is dependent on time and content of last meal. Glucose of more than 200 mg/dL in a nonstressed, ambulatory subject supports the diagnosis of Diabetes Mellitus. Performed By: #### G MARE #### Point of Care testing , Glucose [Mass/Vol] 138 mg/dL [facility] Comment on above: Result Comment: [place] om Glucose Reference Range is dependent on time and content of last meal. Glucose of more than 200 mg/dL in a nonstressed, ambulatory subject supports the diagnosis of Diabetes Mellitus. PERFORMED BY: [address] [place] [address] PATHOLOGIST [employer]CH[employer]IC HELPER WAYNE WAKEFIELD M.D. Performed By: #### G MARE #### Point of Care testing , Gram Stainon 03-11-2023 Microscopic observation Gram stain Nom (Unsp spec) Gram Stain Result 1+ White Blood Cells 1+ Yeast Like Elements No Bacteria Seen Fungus Smear Results 1+ Yeast Like Elements Seen PERFORMED BY: [address] [place] [address] PATHOLOGIST [employer]CH[employer] HELPER WAYNE WAKEFIELD M.D. [facility] Comment on above: Performed By: #### G MARE #### Point of Care testing , [place] 03-11-2023 L ----- Specimen: [id number] Received: 03/12/23 Status: DAY St Num: [id number] Spec Type: Cytology Subm Dr: Errol Nicole MD Tissues: A BRONWASH ([facility]) Procedures: HE/2, Gross/Micro L4, Cyto Prepstain, PAPSTN Age/ Patient Sex Location Account Attending Physician Christiane Perez 48/F 3T [id number] Krunal Kelly DO SPEC NUM: [id number] RECD: 03/12/23 STATUS: DAY SNYDEROscar NUM: [id number] HARRY: 03/11/[address] [facility] [address]: Errol Nicole MD ENTERED: 03/12/23 [facility] DR: SPEC TYPE: Cytology DEPT: [facility] ENTERED BY: [id number] RECV BY: [id number] ORDERED: HE/2, Gross/Micro L4, Cyto Prepstain, PAPSTN ORDERED: HE/2, Gross/Micro L4, Cyto Prepstain, PAPSTN Pathological Diagnosis Bronchial wash, cytology: - Negative for malignancy, inflammatory process - See note and pathology report [id number] Note: Smear and cell block shows many [...] [id number] Received: 03/12/23 Status: DAY St Num: [id number] Spec Type: Cytology Subm Dr: Errol Nicole MD Tissues: A BRONWA ([facility]) Procedures: HE/2, Gross/Micro L4, Cyto Prepstain, PAPSTN Patient: PerezChristiane [id number] (Continued) Signed (signature on file) Gregory Aranda MD 03/17/23820 [facility] L ----- Specimen: [id number] Received: 03/11/23 Status: DAY St Num: [id number] Spec Type: Surgical Subm Dr: Errol Nicole MD Tissues: A Lung - Transbroncial Biopsy ([facility] BX) Procedures: ISIDRA SONG, PAUL/5, Gross/Micro L4, GMS II ARMANI Oquendo Age/ Patient Sex Location Account Attending Physician Christiane Perez 48/[facility] [id number] Krunal Kelly, SPEC NUM: [id number] RECD: 03/11/23 STATUS: DAY ST NUM: [id number] HARRY: 03/11/[address]: Errol Nicole MD ENTERED: 03/11/23 [...] negative. This case will send to the [facility] for consultation and second opinion and the result will be reported as an addendum. Specimen: [id number] Received: 03/11/23 Status: DAY St Num: [id number] Spec Type: Surgical Subm Dr: Errol Nicole MD Tissues: A Lung - Transbroncial Biopsy ([facility] BX) Procedures: ISIDRA - BALAJIN, HE/5, Gross/Micro L4, GMS II ARMANI Oquendo Patient: PerezChristiane [id number] (Continued) Specimen: [id number] Received: 03/11/23 (Continued) Signed (signature on file) Gregory Aranda MD 03/17/23811 Specimen: [id number] Received: 03/11/23 Status: DAY St Num: [id number] Spec Type: Surgical Subm Dr: Errol Nicole MD Tissues: A Lung - Transbroncial Biopsy ([facility] BX) Procedures: ISIDRA - NOHEMI, HE/5, Gross/Micro L4, GMS II Dark, AFB Patient: Christiane Perez [id number] (Continued) Specimen: [id number] Received: 03/11/23 (Continued) Clinical Information Abscess Gross Description Received in formalin labeled with the patient's name, date of and [facility] biopsies are multiple villegas tissues measuring 1.5 x 0.3 x 0.2 cm in aggregate. Entirely submitted in one cassette labeled A1. Microscopic Description Two H E slides reviewed. The microscopic examination confirms the diagnosis. CPT Codes 41420 Specimen: [id number] Received: 03/11/23 Status: DAY St Num: [id number] Spec Type: Surgical Subm Dr: Errol Nicole MD Tissues: A Lung - Transbroncial Biopsy ([facility] BX) Procedures: PAS - LGRN, HE/5, Gross/Micro L4, GMS II Dark, AFB Patient: Christiane Perez [id number] (Continued) Signed (signature on file) Gregory Aranda MD 03/17/23811 Normal [facility] Magnesiumon 03-11-2023 Magnesium [Mass/Vol] 1.9 mg/dL Normal 1.9-2.7 [facility] Comment on above: Result Comment: PERF ORMED BY: [facility] [address] [place] [address] PATHOLOGIST [employer] WAYNE WAKEFIELD M.D. Performed By: #### C BC, BMP, MG #### [facility] [address] Magnesium [Mass/volume] in S kaitlin or PlasmaOrdered By: Eron Wood on 03-11-2023 Magnesium [Mass/Vol] 1.9 mg/dL 1.9-2.7 [facility] Vancomycin,Peakon 03-11-2023 Vancomycin,Peak 12.5 ug/mL Low 20.0-40.0 [facility] Comment on above: Order Comment: Comme nt ?DRAW 1 HOUR AFTER INFUSION COMPLETES Date of last dose?: [id number] Time of last dose?: 1500 Result Comment: Last dose: - PERFORMED BY: [place] [address] PATHOLOGIST [employer] WAYNE WAKEFIELD M.D. Performed By: #### G MARE #### Point of Care testing , Activated partial thrombopla stin time (aPTT) in platelet poor plasma by coagulation aOrdered By: Lavell Salazar on 03-10-2023 aPTT Coag (PPP) [Time] 40.2 s 25.1-36.5 [facility] B-Type Natriuretic Peptideon 03-10-2023 Natriuretic peptide B (Bld) [Mass/Vol] 46.0 pg/mL Normal 5-100 [facility] Comment on above: Result Comment: PERF ORMED BY: [place] [address] PATHOLOGIST [employer] WAYNE WAKEFIELD M.D. Performed By: #### C BC, BMP, MG #### [facility] [address] Bacterial blood cultureOrder ed By: Lavell Salazar on 03-10-2023 Bacteria identified Cx Nom (Bld) NO GROWTH 5 DAYS [facility] Basic Metabolic Panelon 02-14 Anion gap [Moles/Vol] 11.3 mmol/L Normal 6.0-15.0 [facility] Comment on above: Performed By: #### C BC, BMP, MG #### [facility] [address] [place] [address] Calcium [Mass/Vol] 8.9 mg/dL Normal 8.6-10.3 [facility] Comment on above: Performed By: #### C BC, BMP, MG #### [facility] [address] [place] [address] [place] Chloride [Moles/Vol] 103 mmol/L Normal 98-107 [facility] Comment on above: Performed By: #### C BC, BMP, MG #### [facility] [address] CO2 [Moles/Vol] 24.2 mmol/L Normal 21.0-31.0 [facility] Comment on above: Performed By: #### C BC, BMP, MG #### [facility] [address] Creatinine [Mass/Vol] 0.70 mg/dL Normal 0.60-1.20 [facility] Comment on above: Performed By: #### C BC, BMP, MG #### [facility] [address] [place] [address] [place] Creatinine Clr Calc Pharmacy 117.33 [facility] Comment on above: Result Comment: PERF ORMED BY: [place] [address] PATHOLOGIST [employer] WAYNE WAKEFIELD M.D. Performed By: #### C BC, BMP, MG #### [place] [address] [place] GFR/1.73 sq M.predicted MDRD (S/P/Bld) [Vol rate/Area] mL/min/{1.73_m2} [facility] Comment on above: Performed By: #### C BC, BMP, MG #### [facility] [address] [place] [address] [place] Glucose [Mass/Vol] 69 mg/dL Low 70-100 [facility] Comment on above: Result Comment: [place] Glucose Reference Range is dependent on time and content of last meal. Glucose of more than 200 mg/dL in a nonstressed, ambulatory subject supports the diagnosis of Diabetes Mellitus. ADA recommended reference range Performed By: #### C BC, BMP, MG #### [facility] [address] [place] [address] [place] Potassium [Moles/Vol] 3.5 mmol/L Normal 3.5-5.1 [facility] Comment on above: Performed By: #### C BC, BMP, MG #### [address] Sodium [Moles/Vol] 135 mmol/L Low 136-145 [facility] Comment on above: Performed By: #### C BC, BMP, MG #### [facility] [address] [place] [address] Urea nitrogen [Mass/Vol] 10 mg/dL Normal 7-25 [facility] Comment on above: Performed By: #### C BC, BMP, MG #### [address] Bilirubin.direct [Mass/volum e] in Serum or PlasmaOrdered By: Lavell Salazar on 03-10-2023 Bilirubin.direct [Mass/Vol] 0.20 mg/dL 0.03-0.18 [facility] Blood Cultureon 03-10-2023 Bacteria identified Cx Nom (Bld) NO GROWTH 5 DAYS PERFORMED BY: [place] [address] PATHOLOGIST [employer] WAYNE WAKEFIELD M.D. [facility] Comment on above: Performed By: #### C BC, BMP, MG #### [address] Bacteria identified Cx Nom (Bld) NO GROWTH 5 DAYS PERFORMED BY: [place] [address] PATHOLOGIST [employer] WAYNE WAKEFIELD M.D. [facility] Comment on above: Performed By: #### C BC, BMP, MG #### [facility] [address] [place] [address] CT chest w conon 03-10-2023 CT chest w con [facility] [place] [address] [place] [address] CT Scan Report Signed Patient: Christiane Perez MR#: [id number] 2 : 1975 Acct:[id number] Age/Sex: 48 / F ADM Date: 03/10/23 Loc: ER Room: Type: [facility] ER Attending Dr: Copies to: Lavell [...] M.D.03/10/2023 2:30 PM Dictation Location: [place] [address] Transcribed By: [facility] 03/10/23 1430 Dictated By: Giovanny Cleveland DO 03/10/23 1421 Signed By: 03/10/23 1430 [facility] Complete Blood Count Auto Di ffon 03-10-2023 Basophils (Bld) [#/Vol] 0.0 10*3/uL Normal 0.0-0.2 [facility] Comment on above: Result Comment: PERF ORMED BY: [facility] [place] [address] PATHOLOGIST [employer] WAYNE WAKEFIELD M.D. Performed By: #### G LULS #### Point of Care testing , Basophils/100 WBC (Bld) 0.2 % Normal . [facility] Comment on above: Performed By: #### G LULS #### Point of Care testing , Eosinophils (Bld) [#/Vol] 0.2 10*3/uL Normal 0.0-0.45 [facility] Comment on above: Performed By: #### G LULS #### Point of Care testing , Eosinophils/100 WBC (Bld) 1.1 % Normal . [facility] Comment on above: Performed By: #### G LULS #### Point of Care testing , Erythrocyte distribution width (RBC) [Ratio] 15.4 % High 11.9-15.3 [facility] Comment on above: Performed By: #### G LULS #### Point of Care testing , Hematocrit (Bld) [Volume fraction] 38.1 % Normal 34.0-46.4 [facility] Comment on above: Performed By: #### G LULS #### Point of Care testing , Hemoglobin (Bld) [Mass/Vol] 12.8 g/dL Normal 11.8-15.4 [facility] Comment on above: Performed By: #### G LULS #### Point of Care testing , Lymphocytes (Bld) [#/Vol] 1.0 10*3/uL Normal 1.00-4.8 [facility] Comment on above: Performed By: #### G LULS #### Point of Care testing , Lymphocytes/100 WBC (Bld) 5.7 % Normal . [facility] Comment on above: Performed By: #### G LULS #### Point of Care testing , MCH (RBC) [Entitic mass] 32.6 pg Normal 24.7-34.3 [facility] Comment on above: Performed By: #### G LULS #### Point of Care testing , MCV (RBC) [Entitic vol] 97.2 fL Normal 80-100 [facility] Comment on above: Performed By: #### G MARYLS #### Point of Care testing , Mean Corpuscular HGB Conc 33.5 g/dL Normal 32.0-35.0 [facility] Comment on above: Performed By: #### G MARYLS #### Point of Care testing , Monocytes (Bld) [#/Vol] 1.2 10*3/uL High 0.0-0.8 [facility] Comment on above: Performed By: #### G MARYLS #### Point of Care testing , Monocytes/100 WBC (Bld) 24.68 % High 0.00-20.00 [facility] Comment on above: Result Comment: For adults in ED, MDW > 20.0 may be associated with a higher risk of sepsis during the first 12 hrs of hospital admission Performed By: #### G MARYLS #### Point of Care testing , Monocytes/100 WBC (Bld) 7.2 % Normal . [facility] Comment on above: Performed By: #### G MARYLS #### Point of Care testing , Neutrophils (Bld) [#/Vol] 14.2 10*3/uL High 1.8-7.7 [facility] Comment on above: Performed By: #### G MARYLS #### Point of Care testing , Neutrophils/100 WBC (Bld) 85.8 % Normal . [facility] Comment on above: Performed By: #### G MARYLS #### Point of Care testing , NRBC% 0.1 /100{WBC} Normal 0-0.5 [facility] Comment on above: Performed By: #### G MARYLS #### Point of Care testing , Platelet mean volume (Bld) [Entitic vol] 7.2 fL Normal 6.3-10.7 [facility] Comment on above: Performed By: #### G MARYLS #### Point of Care testing , Platelets (Bld) [#/Vol] 410 10*3/uL Normal 150-450 [facility] Comment on above: Performed By: #### G LULS #### Point of Care testing , RBC (Bld) [#/Vol] 3.92 10*6/uL Normal 3.60-5.00 [facility] Comment on above: Performed By: #### G LULS #### Point of Care testing , WBC (Bld) [#/Vol] 16.6 10*3/uL High 3.8-11.6 [facility] Comment on above: Performed By: #### G LULS #### Point of Care testing , Creatine Kinaseon 03-10-2023 CK [Catalytic activity/Vol] 23 U/L Low 30- [facility] Comment on above: Performed By: #### C BC, BMP, MG #### [address] Creatine kinase [Enzymatic a ctivity/volume] in Serum or PlasmaOrdered By: Lavell Salazar on 03-10-2023 CK [Catalytic activity/Vol] 23 U/L [facility] ECG 12 lead ECGon 03-10-2023 ECG 12 lead ECG [facility] [place] [address] [place] [address] Electrocardiograph Report Signed Patient: Christiane Perez MR#: [id number] 2 : 1975 Acct:[id number] Age/Sex: 48 / F ADM Date: 03/10/23 Loc: ER Room: Type: [facility] ER Attending Dr: Ordering Provider: Lavell Salazar [...] has shortened Confirmed by Lavell Salazar DO ([id number]) on 03/10/2023 3:09:19 PM Referred By: Electronically Signed By:Lavell Salazar DO Transcribed By: MUS Signed By Lavell Salazar DO 3 1509 Normal [facility] Glucose Poct Glucometerson 0 03-10-2023 Glucose [Mass/Vol] 129 mg/dL Normal [facility] Comment on above: Result Comment: [place] Glucose Reference Range is dependent on time and content of last meal. Glucose of more than 200 mg/dL in a nonstressed, ambulatory subject supports the diagnosis of Diabetes Mellitus. PERFORMED BY: [address] [place] [address] PATHOLOGIST [employer] WAYNE WAKEFIELD M.D. Performed By: #### G LULS #### Point of Care testing , Commemt1 Glu2: Cleaned Meter Normal [facility] Comment on above: Result Comment: PERF ORMED BY: [facility] [address] [place] [address] PATHOLOGIST [employer] WAYNE WAKEFIELD M.D. Performed By: #### G LULS #### Point of Care testing , Glucose [Mass/Vol] 176 mg/dL Normal [facility] Comment on above: Result Comment: [facility] Glucose Reference Range is dependent on time and content of last meal. Glucose of more than 200 mg/dL in a nonstressed, ambulatory subject supports the diagnosis of Diabetes Mellitus. Performed By: #### G LULS #### Point of Care testing , Hepatic Panelon 03-10-2023 Albumin [Mass/Vol] 3.3 g/dL Low 3.5-5.7 [facility] Comment on above: Performed By: #### C BC, BMP, MG #### [facility] [address] [place] [id number] [place] Albumin/Globulin [Mass ratio] 0.9 {ratio} [facility] Comment on above: Performed By: #### C BC, BMP, MG #### [facility] [address] [place] [address] [place] ALP [Catalytic activity/Vol] 110 U/L High 34-104 [facility] Comment on above: Performed By: #### C BC, BMP, MG #### [facility] [address] ALT [Catalytic activity/Vol] 6 U/L Low 7-52 [facility] Comment on above: Performed By: #### C BC, BMP, MG #### [facility] [address] AST [Catalytic activity/Vol] 10 U/L Low 13-39 [facility] Comment on above: Performed By: #### C BC, BMP, MG #### [facility] [address] Bilirubin [Mass/Vol] 0.7 mg/dL Normal 0.3-1.0 [facility] Comment on above: Performed By: #### C BC, BMP, MG #### [facility] [address] Bilirubin,Indirect 0.5 mg/dL Normal [facility] Comment on above: Performed By: #### C BC, BMP, MG #### [facility] [address] Bilirubin.indirect [Mass/Vol] 0.20 mg/dL High 0.03-0.18 [facility] Comment on above: Performed By: #### C BC, BMP, MG #### [facility] [address] Globulin (S) [Mass/Vol] 3.6 g/dL Normal [facility] Comment on above: Performed By: #### C BC, BMP, MG #### [facility] [address] Protein [Mass/Vol] 6.9 g/dL Normal 6.4-8.9 [facility] Comment on above: Performed By: #### C BC, BMP, MG #### [facility] [address] Laboratory - CoagulationOrde red By: aLvell Salazar on 03-10-2023 PT Coag (PPP) [Time] 14.3 s 9.0-12.9 [facility] Lactate [Moles/volume] in Se rum or PlasmaOrdered By: Lavell Salazar on 03-10-2023 Lactate [Moles/Vol] 1.2 mmol/L 0.5-2.2 [facility] Lactic Acidon 03-10-2023 Lactate [Moles/Vol] 1.2 mmol/L Normal 0.5-2.2 [facility] Comment on above: Result Comment: PERF ORMED BY: [facility] [address] [place] [address] PATHOLOGIST [employer] WAYNE WAKEFIELD M.D. Performed By: #### G LULS #### Point of Care testing , Monocyte distribution width [Entitic volume] in Blood by AutomatedOrdered By: Lavell Salazar on 03-10-2023 Monocyte distribution width Auto (Bld) [Entitic vol] 24.68 % 0.00-20.00 [facility] Comment on above: For adults in ED, MD W > 20.0 may be associated with a higher risk of sepsis during the first 12 hrs of hospital admission Natriuretic peptide B [Mass/ Vol]Ordered By: Lavell Salazar on 03-10-2023 Natriuretic peptide B (Bld) [Mass/Vol] 46.0 pg/mL 5-100 [facility] Partial Thromboplastin Timeo n 03-10-2023 aPTT Coag (Bld) [Time] 40.2 s High 25.1-36.5 [facility] Comment on above: Result Comment: PERF ORMED BY: [facility] [address] [place] [address] PATHOLOGIST [employer] WAYNE WAKEFIELD M.D. Performed By: #### G LULS #### Point of Care testing , Platelet poor plasma interna tional normalized ratio (INR) by coagulation assay (relatOrdered By: Lavell Salazar on 03-10-2023 INR Coag (PPP) [Relative time] 1.2 {INR} [facility] Comment on above: INR Therapeutic Rang [...] Coag (PPP) [Relative time] 1.2 {INR} Normal [facility] Comment on above: Result Comment: INR [...] Coag (PPP) [Time] 14.3 s High 9.0-12.9 [facility] Comment on above: Performed By: #### G MARE #### Point of Care testing , Serum or plasma non-glucuron idated bilirubin measurement (mass/volume)Ordered By: Lavell Salazar on 03-10-2023 Bilirubin.indirect [Mass/Vol] 0.5 mg/dL [facility] Troponin I High Sensitivityo n 03-10-2023 Troponin I High Sensitivity 12.8 pg/mL Normal 0.0-15.0 [facility] Comment on above: Result Comment: PERF ORMED BY: [place] [address] PATHOLOGIST [employer] WAYNE WAKEFIELD M.D. Performed By: #### C BC, BMP, MG #### [facility] [address] Troponin I.cardiac [Mass/vol ume] in Serum or Plasma by Detection limit <= 0.01 ng/Ordered By: Lavell Salazar on 03-10-2023 Troponin I.cardiac DL <= 0.01 ng/mL [Mass/Vol] 12.8 pg/mL 0.0-15.0 [facility] XR chest 1V portableon 03-10 XR chest 1V portable [facility] [place] [address] XRay Report Signed Patient: Christiane Perez MR#: [id number] 2 : 1975 Acct:[id number] Age/Sex: 48 / F ADM Date: 03/10/23 [...] Johnson Jr., Francoise03/10/2023 1:11 PM Dictation Location: [place] [address] Transcribed By: [facility] 03/10/23 1311 Dictated By: Rodger Johnson Jr, DO 03/10/23 1310 Signed By: 03/10/23 1311 Normal [facility] Quick Strepon 02-14-2023 S. pyogenes Org specific cx Ql (Throat) Negative [employer] Other Quick Strep [employer] [facility] [employer] Other CBC AUTO DIFFon 12-01-2022 BASO # 0.0 103/ul Normal 0.0-0.1 [facility] Comment on above: Performed By: #### I NFLUAB #### [facility] [address] [place] [address] Dr. Roscoe Segal Basophils/100 WBC (Bld) 0.6 % Normal 0.2-2.0 [facility] Comment on above: Performed By: #### I NFLUAB #### [facility] [address] [place] [address] Dr. Roscoe Segal EO # 0.2 103/ul Normal 0.0-0.7 [facility] Comment on above: Performed By: #### I NFLUAB #### [facility] [address] [place] [address] Dr. Roscoe Segal Eosinophils/100 WBC (Bld) 2.4 % Normal 0.9-7.0 [facility] Comment on above: Performed By: #### I NFLUAB #### [facility] [address] [place] [address] Dr. Roscoe Segal Erythrocyte distribution width (RBC) [Ratio] 14.9 % Normal 11.0-15.0 [facility] Comment on above: Performed By: #### I NFLUAB #### [facility] [address] [place] [address] Dr. Roscoe Segal Hematocrit (Bld) [Volume fraction] 44.7 % Normal 36.0-48.0 [facility] Comment on above: Performed By: #### I NFLUAB #### [facility] [address] [place] [address] Dr. Roscoe Segal Hemoglobin (Bld) [Mass/Vol] 14.9 g/dL Normal 12.0-16.0 [facility] Comment on above: Performed By: #### I NFLUAB #### [facility] [address] [place] [address] Dr. Roscoe Segal IG # 0.02 10e3/ul Normal 0.00-0.03 [facility] Comment on above: Performed By: #### I NFLUAB #### [facility] [address] [place] [address] Dr. Roscoe Segal IG % 0.3 % Normal 0.0-0.5 [facility] Comment on above: Performed By: #### I NFLUAB #### [facility] [address] [place] [address] Dr. Roscoe Segal LYMPH # 1.6 103/ul Normal 1.2-3.8 [facility] Comment on above: Performed By: #### I NFLUAB #### [facility] [address] [place] [address] Dr. Roscoe Segal Lymphocytes/100 WBC (Bld) 26.1 % Normal 20.5-60.0 [facility] Comment on above: Performed By: #### I NFLUAB #### [facility] [address] [place] [address] Dr. Roscoe Segal MANUAL DIFF REQ NO Normal [facility] Comment on above: Performed By: #### I NFLUAB #### [facility] [address] [place] [address] Dr. Roscoe Segal MCH (RBC) [Entitic mass] 32.3 pg Normal 26.7-34.0 [facility] Comment on above: Performed By: #### I NFLUAB #### [facility] [address] [place] [address] Dr. Roscoe Segal MCHC (RBC) [Mass/Vol] 33.3 g/dL Normal 29.9-35.2 [facility] Comment on above: Performed By: #### I NFLUAB #### [facility] [address] [place] [address] Dr. Roscoe Segal MCV (RBC) [Entitic vol] 96.8 fL Normal 81.0-99.0 [facility] Comment on above: Performed By: #### I NFLUAB #### [facility] [address] [place] [address] Dr. Roscoe Segal MONO # 0.6 103/ul Normal 0.3-0.8 [facility] Comment on above: Performed By: #### I NFLUAB #### [facility] [address] [place] [address] Dr. Roscoe Segal Monocytes/100 WBC (Bld) 9.1 % Normal 1.7-12.0 [facility] Comment on above: Performed By: #### I NFLUAB #### [facility] [address] [place] [address] Dr. Roscoe Segal NEUT # 3.8 103/ul Normal 1.4-6.5 [facility] Comment on above: Performed By: #### I NFLUAB #### [facility] [address] [place] [address] [address] Roscoe Segal Neutrophils/100 WBC (Bld) 61.5 % Normal 43.0-75.0 [facility] Comment on above: Performed By: #### I NFLUAB #### [facility] [address] [place] [address] [address] Roscoe Segal Platelet mean volume (Bld) [Entitic vol] 8.5 fL Critically low 9.5-13.5 [facility] Comment on above: Performed By: #### I NFLUAB #### [facility] [address] [place] [address] Dr. Roscoe Segal PLT 268 103/ul Normal 150-450 [facility] Comment on above: Performed By: #### I NFLUAB #### [facility] [address] [place] [address] Dr. Roscoe Segal RBC 4.62 106/ul Normal 4.20-5.40 [facility] Comment on above: Performed By: #### I NFLUAB #### [facility] [address] [place] [address] Dr. Roscoe Segal WBC 6.3 103/ul Normal 4.0-11.0 [facility] Comment on above: Performed By: #### I NFLUAB #### [facility] [address] [place] [address] Dr. Roscoe Segal GLYCOHEMOGLOBIN A1Con 2022 ADA RECOMMENDATION SEE BELOW Normal [facility] Comment on above: Result Comment: ADA RECOMMENDED LIMIT 4.0 - 6.0 ADA THERAPEUTIC TARGET < 7.0 ACTION SUGGESTED > 7.0 Performed By: #### C BC #### [facility] [address] [place] [address] Dr. Roscoe Segal Glucose [Mass/Vol] 137 mg/dL Normal [facility] Comment on above: Performed By: #### C BC #### [facility] [address] [place] [address] [address] Roscoe Segal HbA1c (Bld) [Mass fraction] 6.4 % Critically high 4.5-6.2 [facility] Comment on above: Performed By: #### C BC #### [facility] [address] [place], [place] [address] Dr. Roscoe Segal LIPID PROFILEon 12-01-2022 CHOL-HDL RATIO NORM SEE BELOW Normal [facility] Comment on above: Result Comment: 3.3 - 4.4 LOW RISK 4.4 - 7.1 AVERAGE RISK 7.1 - 11.0 MODERATE RISK >11.0 HIGH RISK Performed By: #### I NFLUAB #### [facility] [address] [place], [place] [address] Dr. Roscoe Segal Cholesterol [Mass/Vol] 116 mg/dL Normal <=200 [facility] Comment on above: Performed By: #### I NFLUAB #### [facility] [address] [place], [place] [address] Dr. Roscoe Segal Cholesterol in HDL [Mass/Vol] 58 mg/dL Normal 40-60 [facility] Comment on above: Performed By: #### I NFLUAB #### [facility] [address] [place], [place] [address] Dr. Roscoe Segal Cholesterol in LDL [Mass/Vol] 43.4 mg/dL Normal [facility] Comment on above: Performed By: #### I NFLUAB #### [facility] [address] [place], [place] [address] Dr. Roscoe Segal Cholesterol.total/Chol esterol in HDL [Mass ratio] 2.0 {ratio} Normal [facility] Comment on above: Performed By: #### I NFLUAB #### [facility] [address] [place], [place] [address] Dr. Roscoe Segal HDL NORMAL > or = 60 mg/dl - LO W CARDIOVASCULAR RISK <40 mg/dl - HIGH CARDIOVASCULAR RISK Normal [facility] Comment on above: Performed By: #### I NFLUAB #### [facility] [address] [place], [place] [address] Dr. Roscoe Segal LDL CALC NORMAL SEE BELOW Normal [facility] Comment on above: Result Comment: <100 mg/dl OPTIMAL 100 - 129 mg/dl NEAR OR ABOVE OPTIMAL 130 - 159 mg/dl BORDERLINE HIGH 160 - 189 mg/dl HIGH >190 mg/dl VERY HIGH Performed By: #### I NFLUAB #### [facility] [address] [place] [address] Dr. Roscoe Segal Triglyceride [Mass/Vol] 73 mg/dL Normal <=150 [facility] Comment on above: Performed By: #### I NFLUAB #### [facility] [address] [place] [address] Dr. Roscoe Segal VLDL CALC 14.6 mg/dL Normal [facility] Comment on above: Performed By: #### I NFLUAB #### [facility] [address] [place] [address] Dr. Roscoe Segal PROF 14(COMP METB)on 023 Albumin [Mass/Vol] 2.9 g/dL Critically low 3.4-5.0 [facility] Comment on above: Performed By: #### P OCGLUC #### [facility] [address] [place] [address] Dr. Roscoe Segal Albumin/Globulin [Mass ratio] 0.8 {ratio} Normal [facility] Comment on above: Performed By: #### P OCGLUC #### [facility] [address] [place] [address] Dr. Roscoe Segal ALP [Catalytic activity/Vol] 114 U/L Normal 46-116 [facility] Comment on above: Performed By: #### P OCGLUC #### [facility] [address] [place] [address] Dr. Roscoe Segal ALT [Catalytic activity/Vol] 15 U/L Normal 14-59 [facility] Comment on above: Performed By: #### P OCGLUC #### [facility] [address] [address] [address] Roscoe Segal Anion gap [Moles/Vol] 14.3 mmol/L Normal [facility] Comment on above: Performed By: #### P OCGLUC #### [facility] [address] [place] [address] Dr. Roscoe Segal AST [Catalytic activity/Vol] 10 U/L Critically low 15-37 [facility] Comment on above: Performed By: #### P OCGLUC #### [facility] [address] [address] [address] Roscoe Segal Bilirubin [Mass/Vol] 0.3 mg/dL Normal 0.2-1.0 [facility] Comment on above: Performed By: #### P OCGLUC #### [facility] [address] [address] [address] Roscoe Segal Calcium [Mass/Vol] 8.7 mg/dL Normal 8.5-10.1 [facility] Comment on above: Performed By: #### P OCGLUC #### [facility] [address] [address] [address] Roscoe Segal Chloride [Moles/Vol] 104 mmol/L Normal 98-107 [facility] Comment on above: Performed By: #### P OCGLUC #### [facility] [address] [address] [address] Roscoe Segal CO2 [Moles/Vol] 23.5 mmol/L Normal 21.0-32.0 [facility] Comment on above: Performed By: #### P OCGLUC #### [facility] [address] [address] [address] Roscoe Segal Creatinine [Mass/Vol] 0.83 mg/dL Normal 0.55-1.02 [facility] Comment on above: Performed By: #### P OCGLUC #### [facility] [address] [address] [address] Roscoe Segal EGFR-AF ALBANIAN >60 Normal >=60 [facility] Comment on above: Performed By: #### P OCGLUC #### [facility] [address] [address] [address] Roscoe Segal EGFR-NON AF ALBANIAN >60 Normal >=60 [facility] Comment on above: Performed By: #### P OCGLUC #### [facility] [address] [address] [address] Roscoe Segal Globulin (S) [Mass/Vol] 3.5 g/dL Normal [facility] Comment on above: Performed By: #### P OCGLUC #### [facility] [address] [address] [address] Roscoe Segal Glucose [Mass/Vol] 235 mg/dL Critically high 74-106 [facility] Comment on above: Performed By: #### P OCGLUC #### [facility] [address] [address] [address] Roscoe Segal Potassium [Moles/Vol] 3.8 mmol/L Normal 3.5-5.1 [facility] Comment on above: Performed By: #### P OCGLUC #### [facility] [address] [address] [address] Roscoe Segal Protein [Mass/Vol] 6.4 g/dL Normal 6.4-8.2 [facility] Comment on above: Performed By: #### P OCGLUC #### [facility] [address] [address] [address] Roscoe Segal Sodium [Moles/Vol] 138 mmol/L Normal 136-145 [facility] Comment on above: Performed By: #### P OCGLUC #### [facility] [address] [address] [address] Roscoe Segal Urea nitrogen [Mass/Vol] 9.0 mg/dL Normal 7.0-18.0 [facility] Comment on above: Performed By: #### P OCGLUC #### [facility] [address] [address] [address] Roscoe Segal Urea nitrogen/Creatinine [Mass ratio] 10.8 mg/mg Normal [facility] Comment on above: Performed By: #### P OCGLUC #### [facility] [address] [address] [address] Roscoe Segal CARDIAC VICK ADMITon 023 CK [Catalytic activity/Vol] 43 U/L Normal 26-192 [facility] Comment on above: Performed By: #### I NFLUAB #### [facility] [address] [address] [address] Roscoe Segal CK.MB [Mass/Vol] 2.22 ng/mL Normal <=3.60 [facility] Comment on above: Performed By: #### I NFLUAB #### [facility] [address] [address] [address] Roscoe Segal GWEN 58 ng/mL Normal 9-82 [facility] Comment on above: Performed By: #### I NFLUAB #### [facility] [address] [address] [address] Roscoe Segal CBC AUTO DIFFon 09-11-2022 BASO # 0.1 103/ul Normal 0.0-0.1 [facility] Comment on above: Performed By: #### P OCGLUC #### [facility] [address] [address] [address] Roscoe Segal Basophils/100 WBC (Bld) 0.8 % Normal 0.2-2.0 [facility] Comment on above: Performed By: #### P OCGLUC #### [facility] [address] [place] [address] Dr. Roscoe Segal EO # 0.2 103/ul Normal 0.0-0.7 [facility] Comment on above: Performed By: #### P OCGLUC #### [facility] [address] [address] [address] Roscoe Segal Eosinophils/100 WBC (Bld) 2.1 % Normal 0.9-7.0 [facility] Comment on above: Performed By: #### P OCGLUC #### [facility] [address] [place] [address] Dr. Roscoe Segal Erythrocyte distribution width (RBC) [Ratio] 14.2 % Normal 11.0-15.0 [facility] Comment on above: Performed By: #### P OCGLUC #### [facility] [address] [address] [address] Roscoe Segal Hematocrit (Bld) [Volume fraction] 48.4 % Critically high 36.0-48.0 [facility] Comment on above: Performed By: #### P OCGLUC #### [facility] [address] [place] [address] Dr. Roscoe Segal Hemoglobin (Bld) [Mass/Vol] 15.0 g/dL Normal 12.0-16.0 [facility] Comment on above: Performed By: #### P OCGLUC #### [facility] [address] [address] [address] Roscoe Segal IG # 0.02 10e3/ul Normal 0.00-0.03 [facility] Comment on above: Performed By: #### P OCGLUC #### [facility] [address] [address] [address] Roscoe Segal IG % 0.2 % Normal 0.0-0.5 [facility] Comment on above: Performed By: #### P OCGLUC #### [facility] [address] [address] [address] Roscoe Segal LYMPH # 2.2 103/ul Normal 1.2-3.8 [facility] Comment on above: Performed By: #### P OCGLUC #### [facility] [address] [place] [address] Dr. Roscoe Segal Lymphocytes/100 WBC (Bld) 26.8 % Normal 20.5-60.0 [facility] Comment on above: Performed By: #### P OCGLUC #### [facility] [address] [address] [address] Roscoe Segal MANUAL DIFF REQ NO Normal [facility] Comment on above: Performed By: #### P OCGLUC #### [facility] [address] [address] [address] Roscoe Segal MCH (RBC) [Entitic mass] 32.8 pg Normal 26.7-34.0 [facility] Comment on above: Performed By: #### P OCGLUC #### [facility] [address] [address] [address] Roscoe Segal MCHC (RBC) [Mass/Vol] 31.0 g/dL Normal 29.9-35.2 [facility] Comment on above: Performed By: #### P OCGLUC #### [facility] [address] [place] [address] Dr. Roscoe Segal MCV (RBC) [Entitic vol] 105.7 fL Critically high 81.0-99.0 [facility] Comment on above: Result Comment: Slig ht Macrocytosis Present Performed By: #### P OCGLUC #### [facility] [address] [place] [address] Dr. Roscoe Segal MONO # 0.7 103/ul Normal 0.3-0.8 [facility] Comment on above: Performed By: #### P OCGLUC #### [facility] [address] [place] [address] Dr. Roscoe Segal Monocytes/100 WBC (Bld) 8.9 % Normal 1.7-12.0 [facility] Comment on above: Performed By: #### P OCGLUC #### [facility] [address] [place] [address] Dr. Roscoe Segal NEUT # 5.1 103/ul Normal 1.4-6.5 [facility] Comment on above: Performed By: #### P OCGLUC #### [facility] [address] [place] [address] Dr. Roscoe Segal Neutrophils/100 WBC (Bld) 61.2 % Normal 43.0-75.0 [facility] Comment on above: Performed By: #### P OCGLUC #### [facility] [address] [place] [address] Dr. Roscoe Segal Platelet mean volume (Bld) [Entitic vol] 8.7 fL Critically low 9.5-13.5 [facility] Comment on above: Performed By: #### P OCGLUC #### [facility] [address] [place] [address] Dr. Roscoe Segal PLT 382 103/ul Normal 150-450 [facility] Comment on above: Performed By: #### P OCGLUC #### [facility] [address] [place] [address] Dr. Roscoe Segal RBC 4.58 106/ul Normal 4.20-5.40 [facility] Comment on above: Performed By: #### P OCGLUC #### [facility] [address] [place] [address] Dr. Roscoe Segal WBC 8.3 103/ul Normal 4.0-11.0 [facility] Comment on above: Performed By: #### P OCGLUC #### [facility] [address] [address] [address] Roscoe Segal GLUCOSE BLOODon 09-11-2022 Glucose [Mass/Vol] 39 mg/dL Critically low 74-106 [facility] Comment on above: Performed By: #### P OCGLUC #### [facility] [address] [address] [address] Roscoe Segal POINT OF CARE GLUCOSEon 08-17 Glucose [Mass/Vol] 103 mg/dL Normal 74-106 [facility] Comment on above: Performed By: #### P OCGLUC #### [facility] [address] [address] [address] Roscoe Segal Glucose [Mass/Vol] 284 mg/dL Critically high 74-106 [facility] Comment on above: Performed By: #### P OCGLUC #### [facility] [address] [address] [address] Roscoe Segal Glucose [Mass/Vol] 104 mg/dL Normal 74-106 [facility] Comment on above: Performed By: #### P OCGLUC #### [facility] [address] [address] [address] Roscoe Segal Glucose [Mass/Vol] 94 mg/dL Normal 74-106 [facility] Comment on above: Performed By: #### I NFLUAB #### [facility] [address] [address] [address] Roscoe Segal Glucose [Mass/Vol] 136 mg/dL Critically high 74-106 [facility] Comment on above: Performed By: #### P OCGLUC #### [facility] [address] [address] [address] Roscoe Segal Glucose [Mass/Vol] 181 mg/dL Critically high 74-106 [facility] Comment on above: Performed By: #### P OCGLUC #### [facility] [address] [address] [address] Roscoe Segal Glucose [Mass/Vol] 103 mg/dL Normal 74-106 [facility] Comment on above: Performed By: #### C BC #### [facility] [address] [address] [address] Roscoe Segal Glucose [Mass/Vol] 81 mg/dL Normal 74-106 [facility] Comment on above: Performed By: #### P OCGLUC #### [facility] [address] [address] [address] Roscoe Segal Glucose [Mass/Vol] 52 mg/dL Critically low 74-106 [facility] Comment on above: Performed By: #### P OCGLUC #### [facility] [address] [address] [address] Roscoe Segal Glucose [Mass/Vol] 38 mg/dL Critically low 74-106 [facility] Comment on above: Result Comment: Will Repeat Test Performed By: #### C BC #### [facility] [address] [address] [address] Roscoe Segal Glucose [Mass/Vol] 67 mg/dL Critically low 74-106 [facility] Comment on above: Performed By: #### P OCGLUC #### [facility] [address] [address] [address] Roscoe Segal PROF CHEM 8 (BAS METB)on Anion gap [Moles/Vol] 13.1 mmol/L Normal [facility] Comment on above: Performed By: #### C BC #### [facility] [address] [address] [address] Roscoe Segal Calcium [Mass/Vol] 9.0 mg/dL Normal 8.5-10.1 [facility] Comment on above: Performed By: #### C BC #### [facility] [address] [address] [address] Roscoe Segal Chloride [Moles/Vol] 106 mmol/L Normal 98-107 [facility] Comment on above: Performed By: #### C BC #### [facility] [address] [address] [address] Roscoe Segal CO2 [Moles/Vol] 25.0 mmol/L Normal 21.0-32.0 [facility] Comment on above: Performed By: #### C BC #### [facility] [address] [address] [address] Roscoe Segal Creatinine [Mass/Vol] 0.86 mg/dL Normal 0.55-1.02 [facility] Comment on above: Performed By: #### C BC #### [facility] [address] [address] [address] Roscoe Segal EGFR-AF ALBANIAN >60 Normal >=60 [facility] Comment on above: Performed By: #### C BC #### [facility] [address] [address] [address] Roscoe Segal EGFR-NON AF ALBANIAN >60 Normal >=60 [facility] Comment on above: Performed By: #### C BC #### [facility] [address] [address] [address] Roscoe Segal Glucose [Mass/Vol] 36 mg/dL Critically low 74-106 [facility] Comment on above: Performed By: #### C BC #### [facility] [address] [address] [address] Roscoe Segal Potassium [Moles/Vol] 4.1 mmol/L Normal 3.5-5.1 [facility] Comment on above: Performed By: #### C BC #### [facility] [address] [address] [address] Roscoe Segal Sodium [Moles/Vol] 140 mmol/L Normal 136-145 [facility] Comment on above: Performed By: #### C BC #### [facility] [address] [address] [address] Roscoe Segal Urea nitrogen [Mass/Vol] 10.0 mg/dL Normal 7.0-18.0 [facility] Comment on above: Performed By: #### C BC #### [facility] [address] [address] [address] Roscoe Segal Urea nitrogen/Creatinine [Mass ratio] 11.6 mg/mg Normal [facility] Comment on above: Performed By: #### C BC #### [facility] [address] [place] [address] Dr. Roscoe Segal TROPONIN, HIGH SENSITIVITYon 09-11-2022 HSTROP 7.0 pg/mL Normal 4.0-51.3 [facility] Comment on above: Result Comment: CUT- OFF POINTS HAVE BEEN ESTABLISHED BASED ON THE FOURTH UNIVERSAL DEFINITIONS OF MYOCARDIAL INFARCTION. THE UPPER REFERENCE LIMIT (URL) OF TROPONIN, DEFINED THE 99TH PERCENTILE OF cTnI DISTRIBUTION IN A REFERENCE POPULATION, HAS BEEN CONFIRMED THE DECISION THRESHOLD FOR VA DIAGNOSIS. Performed By: #### I NFLUAB #### [facility] [address] [place] [address] Dr. Roscoe Segal INFLUENZA A AND B AGon 07-24 INFLUANE SEE BELOW Normal [facility] Comment on above: Result Comment: Nega tive for Flu A protein angiten. Infection due to Flu A cannot be ruled out. Flu A angiten in the sample may be below the detection limit of the test. Performed By: #### I NFLUAB #### [facility] [address] [place] [address] Dr. Roscoe Segal INFLUBNEG SEE BELOW Normal [facility] Comment on above: Result Comment: Nega tive for Flu B protein antigen. Infection due to Flu B cannot be ruled out. Flu B antigen in the sample may be below the detection limit of the test. Performed By: #### I NFLUAB #### [facility] [address] [place] [address] Dr. Roscoe Segal INFLUENZA A AG Negative Normal NEGATIVE SEE COMMENT [facility] Comment on above: Performed By: #### I NFLUAB #### [facility] [address] [place] [address] Dr. Roscoe Segal INFLUENZA B AG Negative Normal NEGATIVE SEE COMMENT [facility] Comment on above: Performed By: #### I NFLUAB #### [facility] [address] [place] [address] Dr. Roscoe Segal INTERNAL CONTROLS Within Normal Limits Normal Wi thin Normal Limits [facility] Comment on above: Performed By: #### I NFLUAB #### [facility] [address] [place] [address] Dr. Roscoe Segal XR CHEST 1 Von 12-09-2022 XR CHEST 1 V EXAMINATION: XR CHES [...] SHAJI LIMON Date: 2022-07-24 15:26 Normal [facility] XR CHEST 2 Von 05-25-2022 XR [...] by: GERMAINE FARRELL Date: 2022-05-25 16:25 Normal [facility] BLOOD GASES BTYon 04-27-2022 02 MODE NASAL CANNULA Normal [facility] Comment on above: Performed By: #### P OCGLUC #### [facility] [address] [address] [address] Roscoe Segal ALLENS TEST Positive Normal [facility] Comment on above: Performed By: #### P OCGLUC #### [facility] [address] [address] [address] Roscoe Segal Base excess Calc (Bld) [Moles/Vol] -1.5000 mmol/L Normal -2.0-2.0 [facility] Comment on above: Performed By: #### P OCGLUC #### [facility] [address] [address] [address] Roscoe Segal BIPAP PRESSURE Normal [facility] Comment on above: Performed By: #### P OCGLUC #### [facility] [address] [address] [address] Roscoe Segal CPAP [facility] Comment on above: Performed By: #### P OCGLUC #### [facility] [address] [address] [address] Roscoe Segal FIO2 [facility] Comment on above: Performed By: #### P OCGLUC #### [facility] [address] [address] [address] Roscoe Segal HCO3 (Bld) [Moles/Vol] 23.2 mmol/L Normal 22.0-26.0 [facility] Comment on above: Performed By: #### P OCGLUC #### [facility] [address] [address] [address] Roscoe Segal LPM 3 [facility] Comment on above: Performed By: #### P OCGLUC #### [facility] [address] [address] [address] Roscoe Segal MINUTE VOLUME [facility] Comment on above: Performed By: #### P OCGLUC #### [facility] [address] [address] [address] Roscoe Segal Oxygen (Bld) [Partial pressure] 76.4 mm[Hg] Critically low 80.0-100.0 [facility] Comment on above: Performed By: #### P OCGLUC #### [facility] [address] [place] [address] Dr. Roscoe Segal Oxygen saturation in Blood 94.8 % Critically low 95.0-100.0 [facility] Comment on above: Performed By: #### P OCGLUC #### [facility] [address] [address] [address] Roscoe Segal PCO2 39.5 mmHg Normal 35.0-45.0 [facility] Comment on above: Performed By: #### P OCGLUC #### [facility] [address] [place] [address] Dr. Roscoe Segal PEEP [facility] Comment on above: Performed By: #### P OCGLUC #### [facility] [address] [place] [address] Dr. Roscoe Segal pH (Bld) 7.384 [pH] Normal 7.350-7.45 0 [facility] Comment on above: Performed By: #### P OCGLUC #### [facility] [address] [place] [address] Dr. Roscoe Segal [facility] Comment on above: Performed By: #### P OCGLUC #### [facility] [address] [place] [address] Dr. Roscoe Segal PS [facility] Comment on above: Performed By: #### P OCGLUC #### [facility] [address] [place] [address] Dr. Roscoe Segal PUNCTURE SITE LR [facility] Comment on above: Performed By: #### P OCGLUC #### [facility] [address] [place] [address] Dr. Roscoe Segal [facility] Comment on above: Performed By: #### P OCGLUC #### [facility] [address] [place] [address] Dr. Roscoe Segal VENT MODE [facility] Comment on above: Performed By: #### P OCGLUC #### [facility] [address] [place] [address] Dr. Roscoe Segal [facility] Comment on above: Performed By: #### P OCGLUC #### [facility] [address] [place] [address] Dr. Roscoe Segal BNPon 04-27-2022 Natriuretic peptide B (Bld) [Mass/Vol] 282.0 pg/mL Normal <=450.0 [facility] Comment on above: Performed By: #### P OCGLUC #### [facility] [address] [place] [address] Dr. Roscoe Segal CBC AUTO DIFFon 04-27-2022 BASO # 0.0 103/ul Normal 0.0-0.1 [facility] Comment on above: Performed By: #### P OCGLUC #### [facility] [address] [address] [address] Roscoe Segal Basophils/100 WBC (Bld) 0.2 % Normal 0.2-2.0 [facility] Comment on above: Performed By: #### P OCGLUC #### [facility] [address] [address] [address] Roscoe Segal EO # 0.0 103/ul Normal 0.0-0.7 [facility] Comment on above: Performed By: #### P OCGLUC #### [facility] [address] [address] [address] Roscoe Segal Eosinophils/100 WBC (Bld) 0.0 % Critically low 0.9-7.0 [facility] Comment on above: Performed By: #### P OCGLUC #### [facility] [address] [place] [address] Dr. Roscoe Segal Erythrocyte distribution width (RBC) [Ratio] 14.1 % Normal 11.0-15.0 [facility] Comment on above: Performed By: #### P OCGLUC #### [facility] [address] [address] [address] Roscoe Segal Hematocrit (Bld) [Volume fraction] 39.4 % Normal 36.0-48.0 [facility] Comment on above: Performed By: #### P OCGLUC #### [facility] [address] [place] [address] Dr. Roscoe Segal Hemoglobin (Bld) [Mass/Vol] 13.0 g/dL Normal 12.0-16.0 [facility] Comment on above: Performed By: #### P OCGLUC #### [facility] [address] [place] [address] Dr. Roscoe Segal IG # 0.14 10e3/ul Critically high 0.00-0.03 [facility] Comment on above: Performed By: #### P OCGLUC #### [facility] [address] [address] [address] Roscoe Segal IG % 1.0 % Critically high 0.0-0.5 [facility] Comment on above: Performed By: #### P OCGLUC #### [facility] [address] [address] [address] Roscoe Segal LYMPH # 1.4 103/ul Normal 1.2-3.8 [facility] Comment on above: Performed By: #### P OCGLUC #### [facility] [address] [address] [address] Roscoe Segal Lymphocytes/100 WBC (Bld) 9.5 % Critically low 20.5-60.0 [facility] Comment on above: Performed By: #### P OCGLUC #### [facility] [address] [address] [address] Roscoe Segal MANUAL DIFF REQ NO Normal [facility] Comment on above: Performed By: #### P OCGLUC #### [facility] [address] [address] [address] Roscoe Segal MCH (RBC) [Entitic mass] 32.3 pg Normal 26.7-34.0 [facility] Comment on above: Performed By: #### P OCGLUC #### [facility] [address] [address] [address] Roscoe Segal MCHC (RBC) [Mass/Vol] 33.0 g/dL Normal 29.9-35.2 [facility] Comment on above: Performed By: #### P OCGLUC #### [facility] [address] [address] [address] Roscoe Segal MCV (RBC) [Entitic vol] 98.0 fL Normal 81.0-99.0 [facility] Comment on above: Performed By: #### P OCGLUC #### [facility] [address] [address] [address] Roscoe Segal MONO # 0.6 103/ul Normal 0.3-0.8 [facility] Comment on above: Performed By: #### P OCGLUC #### [facility] [address] [address] [address] Roscoe Segal Monocytes/100 WBC (Bld) 4.3 % Normal 1.7-12.0 [facility] Comment on above: Performed By: #### P OCGLUC #### [facility] [address] [address] [address] Roscoe Segal NEUT # 12.1 103/ul Critically high 1.4-6.5 The [facility] Comment on above: Performed By: #### P OCGLUC #### [facility] [address] [address] [address] Roscoe Segal Neutrophils/100 WBC (Bld) 85.0 % Critically high 43.0-75.0 [facility] Comment on above: Performed By: #### P OCGLUC #### [facility] [address] [address] [address] Roscoe Segal Platelet mean volume (Bld) [Entitic vol] 8.9 fL Critically low 9.5-13.5 [facility] Comment on above: Performed By: #### P OCGLUC #### [facility] [address] [address] [address] Roscoe Segal PLT 362 103/ul Normal 150-450 [facility] Comment on above: Performed By: #### P OCGLUC #### [facility] [address] [address] [address] Roscoe Segal RBC 4.02 106/ul Critically low 4.20-5.40 The [facility] Comment on above: Performed By: #### P OCGLUC #### [facility] [address] [address] [address] Roscoe Segal WBC 14.2 103/ul Critically high 4.0-11.0 The [facility] Comment on above: Performed By: #### P OCGLUC #### [facility] [address] [address] [address] Roscoe Segal D-DIMERon 04-27-2022 D-DIMER 0.29 mg/L FEU Normal <=0.59 The [facility] Comment on above: Performed By: #### D DIM #### [facility] [address] [address] [address] Roscoe Segal D-DIMER COMMENTS SEE BELOW Normal [facility] Comment on above: Result Comment: Incr [...] hospitalization. Performed By: #### D DIM #### [facility] [address] [place] [address] Dr. Roscoe Segal LACTATE/LACTIC ACIDon 2021 Lactate [Moles/Vol] 2.1 mmol/L Critically high 0.4-1.9 [facility] Comment on above: Performed By: #### P OCGLUC #### [facility] [address] [place] [address] Dr. Roscoe Segal PROF 14(COMP METB)on 022 Albumin [Mass/Vol] 3.0 g/dL Critically low 3.4-5.0 [facility] Comment on above: Performed By: #### P OCGLUC #### [facility] [address] [place] [address] Dr. Roscoe Segal Albumin/Globulin [Mass ratio] 0.8 {ratio} Normal [facility] Comment on above: Performed By: #### P OCGLUC #### [facility] [address] [place] [address] Dr. Roscoe Segal ALP [Catalytic activity/Vol] 77 U/L Normal 46-116 [facility] Comment on above: Performed By: #### P OCGLUC #### [facility] [address] [place] [address] Dr. Roscoe Segal ALT [Catalytic activity/Vol] 14 U/L Normal 14-59 [facility] Comment on above: Performed By: #### P OCGLUC #### [facility] [address] [place] [address] Dr. Roscoe Segal Anion gap [Moles/Vol] 13.4 mmol/L Normal [facility] Comment on above: Performed By: #### P OCGLUC #### [facility] [address] [place], [place] [id number] Dr. Roscoe Segal AST [Catalytic activity/Vol] 7 U/L Critically low 15-37 [facility] Comment on above: Performed By: #### P OCGLUC #### [facility] [address] [address] [address] Roscoe Segal Bilirubin [Mass/Vol] 0.1 mg/dL Critically low 0.2-1.0 [facility] Comment on above: Performed By: #### P OCGLUC #### [facility] [address] [address] [address] Roscoe Segal Calcium [Mass/Vol] 8.9 mg/dL Normal 8.5-10.1 [facility] Comment on above: Performed By: #### P OCGLUC #### [facility] [address] [place] [address] Dr. Roscoe Segal Chloride [Moles/Vol] 105 mmol/L Normal 98-107 [facility] Comment on above: Performed By: #### P OCGLUC #### [facility] [address] [place] [address] Dr. Roscoe Segal CO2 [Moles/Vol] 21.8 mmol/L Normal 21.0-32.0 [facility] Comment on above: Performed By: #### P OCGLUC #### [facility] [address] [place] [address] Dr. Roscoe Segal Creatinine [Mass/Vol] 0.94 mg/dL Normal 0.55-1.02 [facility] Comment on above: Performed By: #### P OCGLUC #### [facility] [address] [place] [address] Dr. Roscoe Segal EGFR-AF ALBANIAN >60 Normal >=60 [facility] Comment on above: Performed By: #### P OCGLUC #### [facility] [address] [place] [address] Dr. Roscoe Segal EGFR-NON AF ALBANIAN >60 Normal >=60 [facility] Comment on above: Performed By: #### P OCGLUC #### [facility] [address] [place] [address] Dr. Roscoe Segal Globulin (S) [Mass/Vol] 3.7 g/dL Normal [facility] Comment on above: Performed By: #### P OCGLUC #### [facility] [address] [address] [address] Roscoe Segal Glucose [Mass/Vol] 283 mg/dL Critically high 74-106 T [facility] Comment on above: Performed By: #### P OCGLUC #### [facility] [address] [address] [address] Roscoe Segal Potassium [Moles/Vol] 4.2 mmol/L Normal 3.5-5.1 [facility] Comment on above: Performed By: #### P OCGLUC #### [facility] [address] [place] [address] Dr. Roscoe Segal Protein [Mass/Vol] 6.7 g/dL Normal 6.4-8.2 [facility] Comment on above: Performed By: #### P OCGLUC #### [facility] [address] [place] [address] Dr. Roscoe Segal Sodium [Moles/Vol] 136 mmol/L Normal 136-145 [facility] Comment on above: Performed By: #### P OCGLUC #### [facility] [address] [place] [address] Dr. Roscoe Segal Urea nitrogen [Mass/Vol] 16.0 mg/dL Normal 7.0-18.0 [facility] Comment on above: Performed By: #### P OCGLUC #### [facility] [address] [place] [address] Dr. Roscoe Segal Urea nitrogen/Creatinine [Mass ratio] 17.0 mg/mg Normal [facility] Comment on above: Performed By: #### P OCGLUC #### [facility] [address] [place] [address] Dr. Roscoe Segal TROPONIN, HIGH SENSITIVITYon 04-27-2022 HSTROP 7.2 pg/mL Normal 4.0-51.3 [facility] Comment on above: Result Comment: CUT- OFF POINTS HAVE BEEN ESTABLISHED BASED ON THE FOURTH UNIVERSAL DEFINITIONS OF MYOCARDIAL INFARCTION. THE UPPER REFERENCE LIMIT (URL) OF TROPONIN, DEFINED THE 99TH PERCENTILE OF cTnI DISTRIBUTION IN A REFERENCE POPULATION, HAS BEEN CONFIRMED THE DECISION THRESHOLD FOR VA DIAGNOSIS. Performed By: #### P OCGLUC #### [facility] [address] [address] [address] Roscoe Segal XR CHEST 1 Von [...] GERMAINE FARRELL Date: 2022-04-27 17:20 Normal [facility] CBC AUTO DIFFon 04-25-2022 BASO # 0.1 103/ul Normal 0.0-0.1 [facility] Comment on above: Performed By: #### P OCGLUC #### [facility] [address] [place] [address] Dr. Roscoe Segal Basophils/100 WBC (Bld) 0.4 % Normal 0.2-2.0 [facility] Comment on above: Performed By: #### P OCGLUC #### [facility] [address] [address] [address] Roscoe Segal EO # 0.1 103/ul Normal 0.0-0.7 [facility] Comment on above: Performed By: #### P OCGLUC #### [facility] [address] [address] [address] Roscoe Segal Eosinophils/100 WBC (Bld) 0.7 % Critically low 0.9-7.0 [facility] Comment on above: Performed By: #### P OCGLUC #### [facility] [address] [address] [address] Roscoe Segal Erythrocyte distribution width (RBC) [Ratio] 14.1 % Normal 11.0-15.0 [facility] Comment on above: Performed By: #### P OCGLUC #### [facility] [address] [place] [address] Dr. Roscoe Segal Hematocrit (Bld) [Volume fraction] 43.8 % Normal 36.0-48.0 [facility] Comment on above: Performed By: #### P OCGLUC #### [facility] [address] [place] [address] Dr. Roscoe Segal Hemoglobin (Bld) [Mass/Vol] 14.6 g/dL Normal 12.0-16.0 [facility] Comment on above: Performed By: #### P OCGLUC #### [facility] [address] [place] [address] Dr. Roscoe Segal IG # 0.09 10e3/ul Critically high 0.00-0.03 [facility] Comment on above: Performed By: #### P OCGLUC #### [facility] [address] [place] [address] Dr. Roscoe Segal IG % 0.6 % Critically high 0.0-0.5 [facility] Comment on above: Performed By: #### P OCGLUC #### [facility] [address] [place] [address] Dr. Roscoe Segal LYMPH # 1.5 103/ul Normal 1.2-3.8 [facility] Comment on above: Performed By: #### P OCGLUC #### [facility] [address] [place] [address] Dr. Roscoe Segal Lymphocytes/100 WBC (Bld) 9.9 % Critically low 20.5-60.0 [facility] Comment on above: Performed By: #### P OCGLUC #### [facility] [address] [place] [address] Dr. Roscoe Segal MANUAL DIFF REQ NO Normal [facility] Comment on above: Performed By: #### P OCGLUC #### [facility] [address] [place] [address] Dr. Roscoe Segal MCH (RBC) [Entitic mass] 31.8 pg Normal 26.7-34.0 [facility] Comment on above: Performed By: #### P OCGLUC #### [facility] [address] [address] [address] Roscoe Segal MCHC (RBC) [Mass/Vol] 33.3 g/dL Normal 29.9-35.2 [facility] Comment on above: Performed By: #### P OCGLUC #### [facility] [address] [place] [address] Dr. Roscoe Segal MCV (RBC) [Entitic vol] 95.4 fL Normal 81.0-99.0 [facility] Comment on above: Performed By: #### P OCGLUC #### [facility] [address] [place] [address] Dr. Roscoe Segal MONO # 1.2 103/ul Critically high 0.3-0.8 [facility] Comment on above: Performed By: #### P OCGLUC #### [facility] [address] [place] [address] Dr. Roscoe Segal Monocytes/100 WBC (Bld) 8.0 % Normal 1.7-12.0 [facility] Comment on above: Performed By: #### P OCGLUC #### [facility] [address] [place] [address] Dr. Roscoe Segal NEUT # 11.8 103/ul Critically high 1.4-6.5 [facility] Comment on above: Performed By: #### P OCGLUC #### [facility] [address] [place] [address] Dr. Roscoe Segal Neutrophils/100 WBC (Bld) 80.4 % Critically high 43.0-75.0 [facility] Comment on above: Performed By: #### P OCGLUC #### [facility] [address] [place] [address] Dr. Roscoe Sgeal Platelet mean volume (Bld) [Entitic vol] 8.9 fL Critically low 9.5-13.5 [facility] Comment on above: Performed By: #### P OCGLUC #### [facility] [address] [place] [address] Dr. Roscoe Segal PLT 357 103/ul Normal 150-450 [facility] Comment on above: Performed By: #### P OCGLUC #### [facility] [address] [place] [address] Dr. Roscoe Segal RBC 4.59 106/ul Normal 4.20-5.40 [facility] Comment on above: Performed By: #### P OCGLUC #### [facility] [address] [place] [address] Dr. Roscoe Segal WBC 14.7 103/ul Critically high 4.0-11.0 [facility] Comment on above: Performed By: #### P OCGLUC #### [facility] [address] [place] [address] Dr. Roscoe Segal Covid-19 PCR ([facility])on 04-16 SARS-CoV-2 (COVID-19) RNA SOILA+probe Ql (Unsp spec) Not detected Normal NOT DETECTED [facility] Comment on above: Result Comment: When [...] for this test is supported by the [place] of Health and Human Service's declaration that [...] used). Performed By: #### P OCGLUC #### [facility] [address] [place] [address] Dr. Roscoe Segal PROF CHEM 8 (BAS METB)on Anion gap [Moles/Vol] 16.1 mmol/L Normal [facility] Comment on above: Performed By: #### B MP #### [facility] [address] [address] [address] Roscoe Segal Calcium [Mass/Vol] 9.2 mg/dL Normal 8.5-10.1 [facility] Comment on above: Performed By: #### B MP #### [facility] [address] [address] [address] Roscoe Segal Chloride [Moles/Vol] 104 mmol/L Normal 98-107 [facility] Comment on above: Performed By: #### B MP #### [facility] [address] [address] [address] Roscoe Segal CO2 [Moles/Vol] 22.5 mmol/L Normal 21.0-32.0 [facility] Comment on above: Performed By: #### B MP #### [facility] [address] [address] [address] Roscoe Segal Creatinine [Mass/Vol] 0.93 mg/dL Normal 0.55-1.02 [facility] Comment on above: Performed By: #### B MP #### [facility] [address] [address] [address] Roscoe Segal EGFR-AF ALBANIAN >60 Normal >=60 [facility] Comment on above: Performed By: #### B MP #### [facility] [address] [address] [address] Roscoe Segal EGFR-NON AF ALBANIAN >60 Normal >=60 [facility] Comment on above: Performed By: #### B MP #### [facility] [address] [address] [address] Roscoe Segal Glucose [Mass/Vol] 227 mg/dL Critically high 74-106 [facility] Comment on above: Performed By: #### B MP #### [facility] [address] [address] [address] Roscoe Segal Potassium [Moles/Vol] 3.6 mmol/L Normal 3.5-5.1 [facility] Comment on above: Performed By: #### B MP #### [facility] [address] [address] [address] Roscoe Segal Sodium [Moles/Vol] 139 mmol/L Normal 136-145 [facility] Comment on above: Performed By: #### B MP #### [facility] [address] [address] [address] Roscoe Segal Urea nitrogen [Mass/Vol] 9.0 mg/dL Normal 7.0-18.0 [facility] Comment on above: Performed By: #### B MP #### [facility] [address] [address] [address] Roscoe Segal Urea nitrogen/Creatinine [Mass ratio] 9.7 mg/mg Normal [facility] Comment on above: Performed By: #### B MP #### [facility] [address] [address] [address] Roscoe Segal XR CHEST 1 Von [...] by: GERMAINE FARRELL Date: 2022-04-25 09:41 Normal [facility] GLYCOHEMOGLOBIN A1Con 2021 ADA RECOMMENDATION SEE BELOW Normal [facility] Comment on above: Result Comment: ADA RECOMMENDED LIMIT 4.0 - 6.0 ADA THERAPEUTIC TARGET < 7.0 ACTION SUGGESTED > 7.0 Performed By: #### P OCGLUC #### [facility] [address] [address] [address] Roscoe Segal Glucose [Mass/Vol] 128 mg/dL Normal [facility] Comment on above: Performed By: #### P OCGLUC #### [facility] [address] [address] [address] Roscoe Segal HbA1c (Bld) [Mass fraction] 6.1 % Normal 4.5-6.2 [facility] Comment on above: Performed By: #### P OCGLUC #### [facility] [address] [address] [address] Roscoe Segal LIPID PROFILEon 04-10-2022 CHOL-HDL RATIO NORM SEE BELOW Normal [facility] Comment on above: Result Comment: 3.3 - 4.4 LOW RISK 4.4 - 7.1 AVERAGE RISK 7.1 - 11.0 MODERATE RISK >11.0 HIGH RISK Performed By: #### L IPID #### [facility] [address] [address] [address] Roscoe Segal Cholesterol [Mass/Vol] 125 mg/dL Normal <=200 Th [facility] Comment on above: Performed By: #### L IPID #### [facility] [address] [address] [address] Roscoe Segal Cholesterol in HDL [Mass/Vol] 69 mg/dL Critically high 40-60 [facility] Comment on above: Performed By: #### L IPID #### [facility] [address] [address] [address] Roscoe Segal Cholesterol in LDL [Mass/Vol] 31.8 mg/dL Normal [facility] Comment on above: Performed By: #### L IPID #### [facility] [address] [address] [address] Roscoe Segal Cholesterol.total/Chol esterol in HDL [Mass ratio] 1.8 {ratio} Normal [facility] Comment on above: Performed By: #### L IPID #### [facility] [address] [id number] [address] Roscoe Segal HDL NORMAL > or = 60 mg/dl - LO W CARDIOVASCULAR RISK <40 mg/dl - HIGH CARDIOVASCULAR RISK Normal [facility] Comment on above: Performed By: #### L IPID #### [facility] [address] [address] [address] Roscoe Segal LDL CALC NORMAL SEE BELOW Normal [facility] Comment on above: Result Comment: <100 mg/dl OPTIMAL 100 - 129 mg/dl NEAR OR ABOVE OPTIMAL 130 - 159 mg/dl BORDERLINE HIGH 160 - 189 mg/dl HIGH >190 mg/dl VERY HIGH Performed By: #### L IPID #### [facility] [address] [address] [address] Roscoe Segal Triglyceride [Mass/Vol] 121 mg/dL Normal <=150 [facility] Comment on above: Performed By: #### L IPID #### [facility] [address] [address] [address] Roscoe Segal VLDL CALC 24.2 mg/dL Normal [facility] Comment on above: Performed By: #### L IPID #### [facility] [address] [address] [address] Roscoe Seg[facility] SARS-CoV-2 (COVID-19) RNA SOILA+probe Ql (Unsp spec) Not detected Normal NOT DETECTED [facility] Comment on above: Result Comment: This test is not yet approved or cleared by the [place] FDA. When there are no FDA-approved or cleared tests available, and other criteria are met, FDA can make tests available under an emergency access mechanism called an Emergency Use Authorization (EUA). The EUA for this test is supported by the [place] of Health and Human Service's (HHS's) declaration [...] SARS-CoV-2. Performed By: #### P OCGLUC #### [facility] [address] [address] [address] Roscoe Segal XR CHEST 1 Von [...] YASMIN HUERTAS Date: 2022-03-29 15:39 Normal [facility] CBC AUTO DIFFon 03-21-2022 BASO # 0.1 103/ul Normal 0.0-0.1 [facility] Comment on above: Performed By: #### C BC #### [facility] [address] [place] [address] Dr. Roscoe Segal Basophils/100 WBC (Bld) 0.6 % Normal 0.2-2.0 [facility] Comment on above: Performed By: #### C BC #### [facility] [address] [place] [address] Dr. Roscoe Segal EO # 0.3 103/ul Normal 0.0-0.7 [facility] Comment on above: Performed By: #### C BC #### [facility] [address] [place] [address] Dr. Roscoe Segal Eosinophils/100 WBC (Bld) 2.1 % Normal 0.9-7.0 [facility] Comment on above: Performed By: #### C BC #### [facility] [address] [place] [address] Dr. Roscoe Segal Erythrocyte distribution width (RBC) [Ratio] 14.7 % Normal 11.0-15.0 [facility] Comment on above: Performed By: #### C BC #### [facility] [address] [place] [address] Dr. Roscoe Segal Hematocrit (Bld) [Volume fraction] 47.1 % Normal 36.0-48.0 [facility] Comment on above: Performed By: #### C BC #### [facility] [address] [place] [address] Dr. Roscoe Segal Hemoglobin (Bld) [Mass/Vol] 15.6 g/dL Normal 12.0-16.0 [facility] Comment on above: Performed By: #### C BC #### [facility] [address] [place] [address] Dr. Roscoe Segal IG # 0.05 10e3/ul Critically high 0.00-0.03 [facility] Comment on above: Performed By: #### C BC #### [facility] [address] [place] [address] Dr. Roscoe Segal IG % 0.4 % Normal 0.0-0.5 [facility] Comment on above: Performed By: #### C BC #### [facility] [address] [place] [address] Dr. Roscoe Segal LYMPH # 3.9 103/ul Critically high 1.2-3.8 [facility] Comment on above: Performed By: #### C BC #### [facility] [address] [place] [address] Dr. Roscoe Segal Lymphocytes/100 WBC (Bld) 32.1 % Normal 20.5-60.0 [facility] Comment on above: Performed By: #### C BC #### [facility] [address] [place] [address] Dr. Roscoe Segal MANUAL DIFF REQ NO Normal [facility] Comment on above: Performed By: #### C BC #### [facility] [address] [place] [address] Dr. Roscoe Segal MCH (RBC) [Entitic mass] 31.9 pg Normal 26.7-34.0 [facility] Comment on above: Performed By: #### C BC #### [facility] [address] [place] [address] Dr. Roscoe Segal MCHC (RBC) [Mass/Vol] 33.1 g/dL Normal 29.9-35.2 [facility] Comment on above: Performed By: #### C BC #### [facility] [address] [address] [address] Roscoe Segal MCV (RBC) [Entitic vol] 96.3 fL Normal 81.0-99.0 [facility] Comment on above: Performed By: #### C BC #### [facility] [address] [address] [address] Roscoe Segal MONO # 0.9 103/ul Critically high 0.3-0.8 [facility] Comment on above: Performed By: #### C BC #### [facility] [address] [address] [address] Roscoe Segal Monocytes/100 WBC (Bld) 7.4 % Normal 1.7-12.0 [facility] Comment on above: Performed By: #### C BC #### [facility] [address] [address] [address] Roscoe Segal NEUT # 7.0 103/ul Critically high 1.4-6.5 [facility] Comment on above: Performed By: #### C BC #### [facility] [address] [address] [address] Roscoe Segal Neutrophils/100 WBC (Bld) 57.4 % Normal 43.0-75.0 [facility] Comment on above: Performed By: #### C BC #### [facility] [address] [address] [address] Roscoe Segal Platelet mean volume (Bld) [Entitic vol] 8.8 fL Critically low 9.5-13.5 [facility] Comment on above: Performed By: #### C BC #### [facility] [address] [address] [address] Roscoe Segal PLT 417 103/ul Normal 150-450 [facility] Comment on above: Performed By: #### C BC #### [facility] [address] [address] [address] Roscoe Segal RBC 4.89 106/ul Normal 4.20-5.40 [facility] Comment on above: Performed By: #### C BC #### [facility] [address] [place] [address] Dr. Roscoe Segal WBC 12.1 103/ul Critically high 4.0-11.0 [facility] Comment on above: Performed By: #### C BC #### [facility] [address] [place] [address] Dr. Roscoe Segal [facility]on SARS-CoV-2 (COVID-19) RNA SOILA+probe Ql (Unsp spec) Not detected Normal NOT DETECTED [facility] Comment on above: Result Comment: When [...] for this test is supported by the [employer] of Health and Human Service's declaration that [...] used). Performed By: #### P OCGLUC #### [facility] [address] [place] [address] Dr. Roscoe Segal PROF CHEM 8 (BAS METB)on Anion gap [Moles/Vol] 13.4 mmol/L Normal [facility] Comment on above: Performed By: #### I NFLUAB #### [facility] [address] [place] [address] Dr. Roscoe Segal Calcium [Mass/Vol] 9.2 mg/dL Normal 8.5-10.1 [facility] Comment on above: Performed By: #### I NFLUAB #### [facility] [address] [address] [address] Roscoe Segal Chloride [Moles/Vol] 105 mmol/L Normal 98-107 [facility] Comment on above: Performed By: #### I NFLUAB #### [facility] [address] [address] [address] Roscoe Segal CO2 [Moles/Vol] 23.9 mmol/L Normal 21.0-32.0 [facility] Comment on above: Performed By: #### I NFLUAB #### [facility] [address] [address] [address] Roscoe Segal Creatinine [Mass/Vol] 0.93 mg/dL Normal 0.55-1.02 [facility] Comment on above: Performed By: #### I NFLUAB #### [facility] [address] [place] [address] Dr. Roscoe Segal EGFR-AF ALBANIAN >60 Normal >=60 [facility] Comment on above: Performed By: #### I NFLUAB #### [facility] [address] [place] [address] Dr. Roscoe Segal EGFR-NON AF ALBANIAN >60 Normal >=60 [facility] Comment on above: Performed By: #### I NFLUAB #### [facility] [address] [address] [address] Roscoe Segal Glucose [Mass/Vol] 141 mg/dL Critically high 74-106 [facility] Comment on above: Performed By: #### I NFLUAB #### [facility] [address] [address] [address] Roscoe Segal Potassium [Moles/Vol] 4.3 mmol/L Normal 3.5-5.1 [facility] Comment on above: Performed By: #### I NFLUAB #### [facility] [address] [address] [address] Roscoe Segal Sodium [Moles/Vol] 138 mmol/L Normal 136-145 [facility] Comment on above: Performed By: #### I NFLUAB #### [facility] [address] [address] [address] Roscoe Segal Urea nitrogen [Mass/Vol] 9.0 mg/dL Normal 7.0-18.0 [facility] Comment on above: Performed By: #### I NFLUAB #### [facility] [address] [place] [address] Dr. Roscoe Segal Urea nitrogen/Creatinine [Mass ratio] 9.7 mg/mg Normal [facility] Comment on above: Performed By: #### I NFLUAB #### [facility] [address] [place] [address] Dr. Roscoe Segal CARDIAC VICK 3-6on 2 CK [Catalytic activity/Vol] 60 U/L Normal 26-192 [facility] Comment on above: Performed By: #### P OCGLUC #### [facility] [address] [place] [address] Dr. Roscoe Segal CK.MB [Mass/Vol] 1.84 ng/mL Normal <=3.60 [facility] Comment on above: Performed By: #### P OCGLUC #### [facility] [address] [place] [address] Dr. Roscoe Segal HSTROP 8.3 pg/mL Normal 4.0-51.3 [facility] Comment on above: Result Comment: CUT- OFF POINTS HAVE BEEN ESTABLISHED BASED ON THE FOURTH UNIVERSAL DEFINITIONS OF MYOCARDIAL INFARCTION. THE UPPER REFERENCE LIMIT (URL) OF TROPONIN, DEFINED THE 99TH PERCENTILE OF cTnI DISTRIBUTION IN A REFERENCE POPULATION, HAS BEEN CONFIRMED THE DECISION THRESHOLD FOR VA DIAGNOSIS. Performed By: #### P OCGLUC #### [facility] [address] [place] [address] Dr. Roscoe Segal CK [Catalytic activity/Vol] 57 U/L Normal 26-192 [facility] Comment on above: Performed By: #### I NFLUAB #### [facility] [address] [place] [address] Dr. Roscoe Segal CK.MB [Mass/Vol] 1.82 ng/mL Normal <=3.60 [facility] Comment on above: Performed By: #### I NFLUAB #### [facility] [address] [place] [address] Dr. Roscoe Segal HSTROP 8.1 pg/mL Normal 4.0-51.3 [facility] Comment on above: Result Comment: CUT- OFF POINTS HAVE BEEN ESTABLISHED BASED ON THE FOURTH UNIVERSAL DEFINITIONS OF MYOCARDIAL INFARCTION. THE UPPER REFERENCE LIMIT (URL) OF TROPONIN, DEFINED THE 99TH PERCENTILE OF cTnI DISTRIBUTION IN A REFERENCE POPULATION, HAS BEEN CONFIRMED THE DECISION THRESHOLD FOR VA DIAGNOSIS. Performed By: #### I NFLUAB #### [facility] [address] [place] [address] Dr. Roscoe Segal CARDIAC VICK ADMITon 022 CK [Catalytic activity/Vol] 64 U/L Normal 26-192 [facility] Comment on above: Performed By: #### P OCGLUC #### [facility] [address] [place] [address] Dr. Roscoe Segal CK.MB [Mass/Vol] 2.19 ng/mL Normal <=3.60 [facility] Comment on above: Performed By: #### P OCGLUC #### [facility] [address] [place] [address] Dr. Roscoe Segal HSTROP 7.6 pg/mL Normal 4.0-51.3 [facility] Comment on above: Result Comment: CUT- OFF POINTS HAVE BEEN ESTABLISHED BASED ON THE FOURTH UNIVERSAL DEFINITIONS OF MYOCARDIAL INFARCTION. THE UPPER REFERENCE LIMIT (URL) OF TROPONIN, DEFINED THE 99TH PERCENTILE OF cTnI DISTRIBUTION IN A REFERENCE POPULATION, HAS BEEN CONFIRMED THE DECISION THRESHOLD FOR VA DIAGNOSIS. Performed By: #### P OCGLUC #### [facility] [address] [place] [address] Dr. Roscoe Segal GWEN 50 ng/mL Normal 9-82 [facility] Comment on above: Performed By: #### P OCGLUC #### [facility] [address] [place] [address] Dr. Roscoe Segal CBC AUTO DIFFon 03-03-2022 BASO # 0.1 103/ul Normal 0.0-0.1 [facility] Comment on above: Performed By: #### P OCGLUC #### [facility] [address] [place] [address] Dr. Roscoe Segal Basophils/100 WBC (Bld) 0.7 % Normal 0.2-2.0 [facility] Comment on above: Performed By: #### P OCGLUC #### [facility] [address] [place] [address] Dr. Roscoe Segal EO # 0.2 103/ul Normal 0.0-0.7 [facility] Comment on above: Performed By: #### P OCGLUC #### [facility] [address] [place] [address] Dr. Roscoe Segal Eosinophils/100 WBC (Bld) 1.3 % Normal 0.9-7.0 [facility] Comment on above: Performed By: #### P OCGLUC #### [facility] [address] [place] [address] Dr. Roscoe Segal Erythrocyte distribution width (RBC) [Ratio] 14.5 % Normal 11.0-15.0 [facility] Comment on above: Performed By: #### P OCGLUC #### [facility] [address] [place] [address] Dr. Roscoe Segal Hematocrit (Bld) [Volume fraction] 44.8 % Normal 36.0-48.0 [facility] Comment on above: Performed By: #### P OCGLUC #### [facility] [address] [place] [address] Dr. Roscoe Segal Hemoglobin (Bld) [Mass/Vol] 15.0 g/dL Normal 12.0-16.0 [facility] Comment on above: Performed By: #### P OCGLUC #### [facility] [address] [place] [address] Dr. Roscoe Segal IG # 0.07 10e3/ul Critically high 0.00-0.03 [facility] Comment on above: Performed By: #### P OCGLUC #### [facility] [address] [place] [address] Dr. Roscoe Segal IG % 0.6 % Critically high 0.0-0.5 [facility] Comment on above: Performed By: #### P OCGLUC #### [facility] [address] [place] [address] Dr. Roscoe Segal LYMPH # 4.7 103/ul Critically high 1.2-3.8 [facility] Comment on above: Performed By: #### P OCGLUC #### [facility] [address] [address] [address] Roscoe Segal Lymphocytes/100 WBC (Bld) 38.7 % Normal 20.5-60.0 [facility] Comment on above: Performed By: #### P OCGLUC #### [facility] [address] [address] [address] Roscoe Segal MANUAL DIFF REQ NO Normal [facility] Comment on above: Performed By: #### P OCGLUC #### [facility] [address] [place] [address] Dr. Roscoe Segal MCH (RBC) [Entitic mass] 32.1 pg Normal 26.7-34.0 [facility] Comment on above: Performed By: #### P OCGLUC #### [facility] [address] [place] [address] Dr. Roscoe Segal MCHC (RBC) [Mass/Vol] 33.5 g/dL Normal 29.9-35.2 [facility] Comment on above: Performed By: #### P OCGLUC #### [facility] [address] [place] [address] Dr. Roscoe Segal MCV (RBC) [Entitic vol] 95.7 fL Normal 81.0-99.0 [facility] Comment on above: Performed By: #### P OCGLUC #### [facility] [address] [place] [address] Dr. Roscoe Segal MONO # 1.0 103/ul Critically high 0.3-0.8 [facility] Comment on above: Performed By: #### P OCGLUC #### [facility] [address] [place] [address] Dr. Roscoe Segal Monocytes/100 WBC (Bld) 7.9 % Normal 1.7-12.0 [facility] Comment on above: Performed By: #### P OCGLUC #### [facility] [address] [place] [address] Dr. Roscoe Segal NEUT # 6.2 103/ul Normal 1.4-6.5 [facility] Comment on above: Performed By: #### P OCGLUC #### [facility] [address] [address] [address] Roscoe Segal Neutrophils/100 WBC (Bld) 50.8 % Normal 43.0-75.0 [facility] Comment on above: Performed By: #### P OCGLUC #### [facility] [address] [address] [address] Roscoe Segal Platelet mean volume (Bld) [Entitic vol] 8.8 fL Critically low 9.5-13.5 [facility] Comment on above: Performed By: #### P OCGLUC #### [facility] [address] [address] [address] Roscoe Segal PLT 407 103/ul Normal 150-450 [facility] Comment on above: Performed By: #### P OCGLUC #### [facility] [address] [address] [address] Roscoe Segal RBC 4.68 106/ul Normal 4.20-5.40 [facility] Comment on above: Performed By: #### P OCGLUC #### [facility] [address] [address] [address] Roscoe Segal WBC 12.2 103/ul Critically high 4.0-11.0 [facility] Comment on above: Performed By: #### P OCGLUC #### [facility] [address] [address] [address] Roscoe Segal LACTATE/LACTIC ACIDon 2021 Lactate [Moles/Vol] 2.1 mmol/L Critically high 0.4-1.9 [facility] Comment on above: Performed By: #### P OCGLUC #### [facility] [address] [address] [address] Roscoe Segal Lactate [Moles/Vol] 2.2 mmol/L Critically high 0.4-1.9 [facility] Comment on above: Performed By: #### P OCGLUC #### [facility] [address] [address] [address] Roscoe Segal POINT OF CARE GLUCOSEon 02-13 Glucose [Mass/Vol] 109 mg/dL Critically high 74-106 [facility] Comment on above: Performed By: #### P OCGLUC #### [facility] [address] [address] [address] Roscoe Segal Glucose [Mass/Vol] 108 mg/dL Critically high 74-106 [facility] Comment on above: Performed By: #### P OCGLUC #### [facility] [address] [address] [address] Roscoe Segal Glucose [Mass/Vol] 98 mg/dL Normal 74-106 [facility] Comment on above: Performed By: #### I NFLUAB #### [facility] [address] [address] [address] Roscoe Segal Glucose [Mass/Vol] 274 mg/dL Critically high 74-106 [facility] Comment on above: Performed By: #### C BC #### [facility] [address] [address] [address] Roscoe Segal Glucose [Mass/Vol] 87 mg/dL Normal 74-106 [facility] Comment on above: Performed By: #### P OCGLUC #### [facility] [address] [address] [address] Roscoe Segal Glucose [Mass/Vol] 98 mg/dL Normal 74-106 [facility] Comment on above: Performed By: #### P OCGLUC #### [facility] [address] [address] [address] Roscoe Segal Glucose [Mass/Vol] 131 mg/dL Critically high 74-106 [facility] Comment on above: Performed By: #### P OCGLUC #### [facility] [address] [address] [address] Roscoe Segal Glucose [Mass/Vol] 59 mg/dL Critically low 74-106 [facility] Comment on above: Performed By: #### P OCGLUC #### [facility] [address] [address] [address] Roscoe Segal Glucose [Mass/Vol] 95 mg/dL Normal 74-106 [facility] Comment on above: Performed By: #### P OCGLUC #### [facility] [address] [address] [address] Roscoe Segal PROF CHEM 8 (BAS METB)on Anion gap [Moles/Vol] 15.2 mmol/L Normal [facility] Comment on above: Performed By: #### P OCGLUC #### [facility] [address] [address] [address] Roscoe Segal Calcium [Mass/Vol] 8.7 mg/dL Normal 8.5-10.1 [facility] Comment on above: Performed By: #### P OCGLUC #### [facility] [address] [address] [address] Roscoe Segal Chloride [Moles/Vol] 108 mmol/L Critically high 98-107 [facility] Comment on above: Performed By: #### P OCGLUC #### [facility] [address] [address] [address] Roscoe Segal CO2 [Moles/Vol] 20.8 mmol/L Critically low 21.0-32.0 [facility] Comment on above: Performed By: #### P OCGLUC #### [facility] [address] [address] [address] Roscoe Segal Creatinine [Mass/Vol] 1.21 mg/dL Critically high 0.55-1.02 [facility] Comment on above: Performed By: #### P OCGLUC #### [facility] [address] [address] [address] Roscoe Segal EGFR-AF ALBANIAN 58 mL/min/1.73m2 Critically low >=60 [facility] Comment on above: Performed By: #### P OCGLUC #### [facility] [address] [address] [address] Roscoe Segal EGFR-NON AF ALBANIAN 48 mL/min/1.73m2 Critically low >=60 [facility] Comment on above: Performed By: #### P OCGLUC #### [facility] [address] [address] [address] Roscoe Segal Glucose [Mass/Vol] 54 mg/dL Critically low 74-106 [facility] Comment on above: Performed By: #### P OCGLUC #### [facility] [address] [address] [address] Roscoe Segal Potassium [Moles/Vol] 3.0 mmol/L Critically low 3.5-5.1 [facility] Comment on above: Performed By: #### P OCGLUC #### [facility] [address] [address] [address] Roscoe Segal Sodium [Moles/Vol] 141 mmol/L Normal 136-145 [facility] Comment on above: Performed By: #### P OCGLUC #### [facility] [address] [address] [address] Roscoe Segal Urea nitrogen [Mass/Vol] 11.0 mg/dL Normal 7.0-18.0 [facility] Comment on above: Performed By: #### P OCGLUC #### [facility] [address] [address] [address] Roscoe Segal Urea nitrogen/Creatinine [Mass ratio] 9.1 mg/mg Normal [facility] Comment on above: Performed By: #### P OCGLUC #### [facility] [address] [address] [address] Roscoe Segal XR CHEST 1 Von [...] by: JUAN BARKER Date: 2022-03-03 01:14 Normal [facility] CBC AUTO DIFFon 01-01-2022 BASO # 0.1 103/ul Normal 0.0-0.1 [facility] Comment on above: Performed By: #### P OCGLUC #### [facility] [address] [address] [address] Roscoe Segal Basophils/100 WBC (Bld) 0.7 % Normal 0.2-2.0 [facility] Comment on above: Performed By: #### P OCGLUC #### [facility] [address] [address] [address] Roscoe Segal EO # 0.1 103/ul Normal 0.0-0.7 [facility] Comment on above: Performed By: #### P OCGLUC #### [facility] [address] [address] [address] Roscoe Segal Eosinophils/100 WBC (Bld) 0.9 % Normal 0.9-7.0 [facility] Comment on above: Performed By: #### P OCGLUC #### [facility] [address] [address] [address] Roscoe Segal Erythrocyte distribution width (RBC) [Ratio] 14.5 % Normal 11.0-15.0 [facility] Comment on above: Performed By: #### P OCGLUC #### [facility] [address] [address] [address] Roscoe Segal Hematocrit (Bld) [Volume fraction] 41.4 % Normal 36.0-48.0 [facility] Comment on above: Performed By: #### P OCGLUC #### [facility] [address] [address] [address] Roscoe Segal Hemoglobin (Bld) [Mass/Vol] 13.4 g/dL Normal 12.0-16.0 [facility] Comment on above: Performed By: #### P OCGLUC #### [facility] [address] [address] [address] Roscoe Segal IG # 0.08 10e3/ul Critically high 0.00-0.03 [facility] Comment on above: Performed By: #### P OCGLUC #### [facility] [address] [address] [address] Roscoe Segal IG % 0.7 % Critically high 0.0-0.5 [facility] Comment on above: Performed By: #### P OCGLUC #### [facility] [address] [address] [address] Roscoe Segal LYMPH # 2.4 103/ul Normal 1.2-3.8 [facility] Comment on above: Performed By: #### P OCGLUC #### [facility] [address] [address] [address] Roscoe Segal Lymphocytes/100 WBC (Bld) 22.0 % Normal 20.5-60.0 [facility] Comment on above: Performed By: #### P OCGLUC #### [facility] [address] [place] [address] Dr. Roscoe Segal MANUAL DIFF REQ NO Normal [facility] Comment on above: Performed By: #### P OCGLUC #### [facility] [address] [place] [address] Dr. Roscoe Segal MCH (RBC) [Entitic mass] 31.2 pg Normal 26.7-34.0 [facility] Comment on above: Performed By: #### P OCGLUC #### [facility] [address] [place] [address] Dr. Roscoe Segal MCHC (RBC) [Mass/Vol] 32.4 g/dL Normal 29.9-35.2 [facility] Comment on above: Performed By: #### P OCGLUC #### [facility] [address] [place] [address] Dr. Roscoe Segal MCV (RBC) [Entitic vol] 96.3 fL Normal 81.0-99.0 [facility] Comment on above: Performed By: #### P OCGLUC #### [facility] [address] [address] [address] Roscoe Segal MONO # 0.9 103/ul Critically high 0.3-0.8 [facility] Comment on above: Performed By: #### P OCGLUC #### [facility] [address] [address] [address] Roscoe Segal Monocytes/100 WBC (Bld) 7.7 % Normal 1.7-12.0 [facility] Comment on above: Performed By: #### P OCGLUC #### [facility] [address] [address] [address] Roscoe Segal NEUT # 7.5 103/ul Critically high 1.4-6.5 [facility] Comment on above: Performed By: #### P OCGLUC #### [facility] [address] [address] [address] Roscoe Segal Neutrophils/100 WBC (Bld) 68.0 % Normal 43.0-75.0 [facility] Comment on above: Performed By: #### P OCGLUC #### [facility] [address] [address] [address] Roscoe Segal Platelet mean volume (Bld) [Entitic vol] 8.8 fL Critically low 9.5-13.5 [facility] Comment on above: Performed By: #### P OCGLUC #### [facility] [address] [address] [address] Roscoe Segal PLT 317 103/ul Normal 150-450 [facility] Comment on above: Performed By: #### P OCGLUC #### [facility] [address] [place] [address] Dr. Roscoe Segal RBC 4.30 106/ul Normal 4.20-5.40 [facility] Comment on above: Performed By: #### P OCGLUC #### [facility] [address] [place] [address] Dr. Roscoe Segal WBC 11.1 103/ul Critically high 4.0-11.0 [facility] Comment on above: Performed By: #### P OCGLUC #### [facility] [address] [address] [address] Roscoe Segal Covid-19 PCR ([facility])on 12-14 SARS-CoV-2 (COVID-19) RNA SOILA+probe Ql (Unsp spec) Not detected Normal NOT DETECTED [facility] Comment on above: Result Comment: When [...] for this test is supported by the [place] of [employer] and Human Service's declaration that [...] used). Performed By: #### P OCGLUC #### [facility] [address] [place] [address] Dr. Roscoe Segal ETHANOL (BLD ALC)on 01-02-20 22 ALC NOTE NOTE: 80 mg/dl is [facility] legal limit for a blood alcohol level Normal [facility] Comment on above: Performed By: #### C BC #### [facility] [address] [place] [address] Dr. Roscoe Segal Ethanol [Mass/Vol] 197 mg/dL Normal [facility] Comment on above: Performed By: #### C BC #### [facility] [address] [place] [address] Dr. Roscoe Segal PROF CHEM 8 (BAS METB)on Anion gap [Moles/Vol] 16.4 mmol/L Normal [facility] Comment on above: Performed By: #### I NFLUAB #### [facility] [address] [place] [address] Dr. Roscoe Segal Calcium [Mass/Vol] 8.2 mg/dL Critically low 8.5-10.1 [facility] Comment on above: Performed By: #### I NFLUAB #### [facility] [address] [place] [address] Dr. Roscoe Segal Chloride [Moles/Vol] 107 mmol/L Normal 98-107 [facility] Comment on above: Performed By: #### I NFLUAB #### [facility] [address] [address] [address] Roscoe Segal CO2 [Moles/Vol] 21.3 mmol/L Normal 21.0-32.0 [facility] Comment on above: Performed By: #### I NFLUAB #### [facility] [address] [address] [address] Roscoe Segal Creatinine [Mass/Vol] 0.78 mg/dL Normal 0.55-1.02 [facility] Comment on above: Performed By: #### I NFLUAB #### [facility] [address] [address] [address] Roscoe Segal EGFR-AF ALBANIAN >60 Normal >=60 [facility] Comment on above: Performed By: #### I NFLUAB #### [facility] [address] [place] [address] Dr. Roscoe Segal EGFR-NON AF ALBANIAN >60 Normal >=60 [facility] Comment on above: Performed By: #### I NFLUAB #### [facility] [address] [address] [address] Roscoe Segal Glucose [Mass/Vol] 310 mg/dL Critically high 74-106 [facility] Comment on above: Performed By: #### I NFLUAB #### [facility] [address] [address] [address] Roscoe Segal Potassium [Moles/Vol] 3.7 mmol/L Normal 3.5-5.1 [facility] Comment on above: Performed By: #### I NFLUAB #### [facility] [address] [address] [address] Roscoe Segal Sodium [Moles/Vol] 141 mmol/L Normal 136-145 [facility] Comment on above: Performed By: #### I NFLUAB #### [facility] [address] [address] [address] Roscoe Segal Urea nitrogen [Mass/Vol] 8.0 mg/dL Normal 7.0-18.0 [facility] Comment on above: Performed By: #### I NFLUAB #### [facility] [address] [place] [address] Dr. Roscoe Segal Urea nitrogen/Creatinine [Mass ratio] 10.3 mg/mg Normal [facility] Comment on above: Performed By: #### I NFLUAB #### [facility] [address] [place] [address] Dr. Roscoe Segal XR CHEST 1 Von [...] GERMAINE FARRELL Date: 2022-01-01 19:08 Normal [facility] CBC AUTO DIFFon 12-24-2021 BASO # 0.1 103/ul Normal 0.0-0.1 [facility] Comment on above: Performed By: #### I NFLUAB #### [facility] [address] [place] [address] Dr. Roscoe Segal Basophils/100 WBC (Bld) 0.9 % Normal 0.2-2.0 [facility] Comment on above: Performed By: #### I NFLUAB #### [facility] [address] [address] [address] Roscoe Segal EO # 0.2 103/ul Normal 0.0-0.7 [facility] Comment on above: Performed By: #### I NFLUAB #### [facility] [facility] [address] [place] [address] Dr. Roscoe Segal Eosinophils/100 WBC (Bld) 2.4 % Normal 0.9-7.0 [facility] Comment on above: Performed By: #### I NFLUAB #### [facility] [address] [place] [address] Dr. Roscoe Segal Erythrocyte distribution width (RBC) [Ratio] 14.8 % Normal 11.0-15.0 [facility] Comment on above: Performed By: #### I NFLUAB #### [facility] [address] [place] [address] Dr. Roscoe Segal Hematocrit (Bld) [Volume fraction] 41.1 % Normal 36.0-48.0 [facility] Comment on above: Performed By: #### I NFLUAB #### [facility] [address] [place] [address] Dr. Roscoe Segal Hemoglobin (Bld) [Mass/Vol] 13.0 g/dL Normal 12.0-16.0 [facility] Comment on above: Performed By: #### I NFLUAB #### [facility] [address] [place] [address] Dr. Roscoe Segal IG # 0.10 10e3/ul Critically high 0.00-0.03 [facility] Comment on above: Performed By: #### I NFLUAB #### [facility] [address] [place] [address] Dr. Roscoe Segal IG % 1.1 % Critically high 0.0-0.5 [facility] Comment on above: Performed By: #### I NFLUAB #### [facility] [address] [place] [address] Dr. Roscoe Segal LYMPH # 2.0 103/ul Normal 1.2-3.8 [facility] Comment on above: Performed By: #### I NFLUAB #### [facility] [address] [place] [address] Dr. Roscoe Segal Lymphocytes/100 WBC (Bld) 21.5 % Normal 20.5-60.0 [facility] Comment on above: Performed By: #### I NFLUAB #### [facility] [address] [place] [address] Dr. Roscoe Segal MANUAL DIFF REQ NO Normal [facility] Comment on above: Performed By: #### I NFLUAB #### [facility] [address] [place] [address] Dr. Roscoe Segal MCH (RBC) [Entitic mass] 31.0 pg Normal 26.7-34.0 [facility] Comment on above: Performed By: #### I NFLUAB #### [facility] [address] [place] [address] Dr. Roscoe Segal MCHC (RBC) [Mass/Vol] 31.6 g/dL Normal 29.9-35.2 [facility] Comment on above: Performed By: #### I NFLUAB #### [facility] [address] [place] [address] Dr. Roscoe Segal MCV (RBC) [Entitic vol] 98.1 fL Normal 81.0-99.0 [facility] Comment on above: Performed By: #### I NFLUAB #### [facility] [address] [place] [address] Dr. Roscoe Segal MONO # 0.8 103/ul Normal 0.3-0.8 [facility] Comment on above: Performed By: #### I NFLUAB #### [facility] [address] [place] [address] Dr. Roscoe Segal Monocytes/100 WBC (Bld) 8.9 % Normal 1.7-12.0 [facility] Comment on above: Performed By: #### I NFLUAB #### [facility] [address] [place] [address] Dr. Roscoe Segal NEUT # 6.0 103/ul Normal 1.4-6.5 [facility] Comment on above: Performed By: #### I NFLUAB #### [facility] [address] [place] [address] Dr. Roscoe Segal Neutrophils/100 WBC (Bld) 65.2 % Normal 43.0-75.0 [facility] Comment on above: Performed By: #### I NFLUAB #### [facility] [address] [place] [address] Dr. Roscoe Segal Platelet mean volume (Bld) [Entitic vol] 9.4 fL Critically low 9.5-13.5 [facility] Comment on above: Performed By: #### I NFLUAB #### [facility] [address] [address] [address] Roscoe Segal PLT 332 103/ul Normal 150-450 [facility] Comment on above: Performed By: #### I NFLUAB #### [facility] [address] [address] [address] Roscoe Segal RBC 4.19 106/ul Critically low 4.20-5.40 [facility] Comment on above: Performed By: #### I NFLUAB #### [facility] [address] [address] [address] Roscoe Segal WBC 9.2 103/ul Normal 4.0-11.0 [facility] Comment on above: Performed By: #### I NFLUAB #### [facility] [address] [place] [address] Dr. Roscoe Segal GLYCOHEMOGLOBIN A1Con 2021 ADA RECOMMENDATION SEE BELOW Normal [facility] Comment on above: Result Comment: ADA RECOMMENDED LIMIT 4.0 - 6.0 ADA THERAPEUTIC TARGET < 7.0 ACTION SUGGESTED > 7.0 Performed By: #### C BC #### [facility] [address] [address] [address] Roscoe Segal Glucose [Mass/Vol] 217 mg/dL Normal [facility] Comment on above: Performed By: #### C BC #### [facility] [address] [place] [address] Dr. Roscoe Segal HbA1c (Bld) [Mass fraction] 9.2 % Critically high 4.5-6.2 [facility] Comment on above: Performed By: #### C BC #### [facility] [address] [place] [address] Dr. Roscoe Segal LIPID PROFILEon 12-24-2021 CHOL-HDL RATIO NORM SEE BELOW Normal [facility] Comment on above: Result Comment: 3.3 - 4.4 LOW RISK 4.4 - 7.1 AVERAGE RISK 7.1 - 11.0 MODERATE RISK >11.0 HIGH RISK Performed By: #### C BC #### [facility] [address] [place] [address] Dr. Roscoe Segal Cholesterol [Mass/Vol] 191 mg/dL Normal <=200 [facility] Comment on above: Performed By: #### C BC #### [facility] [id number] [address] Roscoe Segal Cholesterol in HDL [Mass/Vol] 52 mg/dL Normal 40-60 [facility] Comment on above: Performed By: #### C BC #### [facility] [id number] [address] Roscoe Segal Cholesterol in LDL [Mass/Vol] 95.6 mg/dL Normal [facility] Comment on above: Performed By: #### C BC #### [facility] [address] [address] [address] Roscoe Segal Cholesterol.total/Chol esterol in HDL [Mass ratio] 3.7 {ratio} Normal [facility] Comment on above: Performed By: #### C BC #### [facility] [address] [address] [address] Roscoe Segal HDL NORMAL > or = 60 mg/dl - LO W CARDIOVASCULAR RISK <40 mg/dl - HIGH CARDIOVASCULAR RISK Normal [facility] Comment on above: Performed By: #### C BC #### [facility] [address] [address] [address] Roscoe Segal LDL CALC NORMAL SEE BELOW Normal [facility] Comment on above: Result Comment: <100 mg/dl OPTIMAL 100 - 129 mg/dl NEAR OR ABOVE OPTIMAL 130 - 159 mg/dl BORDERLINE HIGH 160 - 189 mg/dl HIGH >190 mg/dl VERY HIGH Performed By: #### C BC #### [facility] [id number] Roscoe Segal Triglyceride [Mass/Vol] 217 mg/dL Critically high <=150 [facility] Comment on above: Performed By: #### C BC #### [facility] [address] [place], [place] [id number] Dr. Roscoe Segal VLDL CALC 43.4 mg/dL Normal [facility] Comment on above: Performed By: #### C BC #### [facility] [address] [address] [address] Roscoe Segal MICROALBUMIN, RAND URon 12-14 mALB <1.3 Normal <=30.0 [facility] Comment on above: Performed By: #### P OCGLUC #### [facility] [address] [place] [address] Dr. Roscoe Segal PROF 14(COMP METB)on 022 Albumin [Mass/Vol] 3.0 g/dL Critically low 3.4-5.0 [facility] Comment on above: Performed By: #### C BC #### [facility] [address] [place] [address] Dr. Roscoe Segal Albumin/Globulin [Mass ratio] 0.9 {ratio} Normal [facility] Comment on above: Performed By: #### C BC #### [facility] [address] [place] [address] Dr. Roscoe Segal ALP [Catalytic activity/Vol] 72 U/L Normal 46-116 [facility] Comment on above: Performed By: #### C BC #### [facility] [address] [place] [address] Dr. Roscoe Segal ALT [Catalytic activity/Vol] 17 U/L Normal 14-59 [facility] Comment on above: Performed By: #### C BC #### [facility] [address] [place] [address] Dr. Roscoe Segal Anion gap [Moles/Vol] 12.3 mmol/L Normal [facility] Comment on above: Performed By: #### C BC #### [facility] [address] [place] [address] Dr. Roscoe Segal AST [Catalytic activity/Vol] 15 U/L Normal 15-37 [facility] Comment on above: Performed By: #### C BC #### [facility] [address] [place] [address] Dr. Roscoe Segal Bilirubin [Mass/Vol] 0.1 mg/dL Critically low 0.2-1.0 [facility] Comment on above: Performed By: #### C BC #### [facility] [address] [place] [address] Dr. Roscoe Segal Calcium [Mass/Vol] 8.9 mg/dL Normal 8.5-10.1 [facility] Comment on above: Performed By: #### C BC #### [facility] [address] [place] [address] Dr. Roscoe Segal Chloride [Moles/Vol] 102 mmol/L Normal 98-107 [facility] Comment on above: Performed By: #### C BC #### [facility] [address] [place] [address] Dr. Roscoe Segal CO2 [Moles/Vol] 24.0 mmol/L Normal 21.0-32.0 [facility] Comment on above: Performed By: #### C BC #### [facility] [address] [place] [address] Dr. Roscoe Segal Creatinine [Mass/Vol] 0.91 mg/dL Normal 0.55-1.02 [facility] Comment on above: Performed By: #### C BC #### [facility] [address] [place] [address] Dr. Roscoe Segal EGFR-AF ALBANIAN >60 Normal >=60 [facility] Comment on above: Performed By: #### C BC #### [facility] [address] [place] [address] Dr. Roscoe Segal EGFR-NON AF ALBANIAN >60 Normal >=60 [facility] Comment on above: Performed By: #### C BC #### [facility] [address] [place] [address] Dr. Roscoe Segal Globulin (S) [Mass/Vol] 3.4 g/dL Normal [facility] Comment on above: Performed By: #### C BC #### [facility] [address] [place] [address] Dr. Roscoe Segal Glucose [Mass/Vol] 309 mg/dL Critically high 74-106 [facility] Comment on above: Performed By: #### C BC #### [facility] [address] [place] [address] Dr. Roscoe Segal Potassium [Moles/Vol] 4.3 mmol/L Normal 3.5-5.1 [facility] Comment on above: Performed By: #### C BC #### [facility] [address] [address] [address] Roscoe Segal Protein [Mass/Vol] 6.4 g/dL Normal 6.4-8.2 [facility] Comment on above: Performed By: #### C BC #### [facility] [address] [address] [address] Roscoe Segal Sodium [Moles/Vol] 134 mmol/L Critically low 136-145 [facility] Comment on above: Performed By: #### C BC #### [facility] [address] [address] [address] Roscoe Segal Urea nitrogen [Mass/Vol] 11.0 mg/dL Normal 7.0-18.0 [facility] Comment on above: Performed By: #### C BC #### [facility] [address] [address] [address] Roscoe Segal Urea nitrogen/Creatinine [Mass ratio] 12.1 mg/mg Normal [facility] Comment on above: Performed By: #### C BC #### [facility] [address] [address] [address] Roscoe Segal Glucose Glucometer (dC) [M ass/Vol]on 01-02-2021 Glucose [Mass/Vol] 71 mg/dL [facility] Comment on above: Random Glucose Refer ence Range is dependent on time and content of last meal. Glucose of more than 200 mg/dL in a nonstressed, ambulatory subject supports the diagnosis of Diabetes Mellitus. No Panel Informationon 01-02 Bedside Glucose Comment See comment [facility] Comment on above: Glu2: WILL NOTIFY /RN COVID-19 Positive/Negativeon 12-31-2020 SARS-CoV-2 (COVID-19) N gene SOILA+probe Ql (Resp) Negative Negative [facility] Comment on above: Testing for SARS-CoV -2 by RT-PCRThis test was developed and its performance characteristics determined by [employer] ([employer]) and validated at the [facility]. This test has not been FDA [...] N gene SOILA+probe Ql (Resp) Negative Negative [facility] Comment on above: Reference: NegativeT esting for SARS-CoV-2 by RT-PCRThis test was developed and its performance characteristics determined by [employer] ([employer]) and validated at the [facility]. This test has not been FDA [...] (COVID-19) RNA SOILA+probe Ql (Unsp spec) N/A [facility] Vital Signs Date Time Vital Sign Value Performing Clinician Facility 11-20-2024 14:45-0400 Body height 172.7 cm Gabbie Wallace [employer] Work Phone: [facility] 11-20-2024 14:45-0400 Body mass index (BMI) [Ratio] 31.78 kg/m2 Gabbie Martiny S[employer]IOR BRAND MANAGER Work Phone: [facility] 11-20-2024 14:45-0400 Body temperature 98.2 [degF] Gabbie Martiny [employer]ENIOR BRAND MANAGER Work Phone: [facility] 11-20-2024 14:45-0400 Body weight 94.8 kg Gabbie Martiny SENIOR BRAND MANAGER Work Phone: [facility] 11-20-2024 14:45-0400 Diastolic blood pressure 74 mm[Hg] Gabbie Martiny SENIOR BRAND MANAGER Work Phone: [facility] 11-20-2024 14:45-0400 Heart rate 78 /min Gabbie Martiny SENIOR BRAND MANAGER Work Phone: [facility] 11-20-2024 14:45-0400 Systolic blood pressure 110 mm[Hg] Gabbie Martiny [employer]ENIOR BRAND MANAGER Work Phone: [facility] 11-20-2024 13:52-0400 Body height 172.7 cm Tylor Taylor DO Work Phone: [facility] 11-20-2024 13:52-0400 Body mass index (BMI) [Ratio] 31.78 kg/m2 Tylor Taylor DO Work Phone: [facility] 11-20-2024 13:52-0400 Body temperature 98.2 [degF] Tylor Taylor DO Work Phone: [facility] 11-20-2024 13:52-0400 Body weight 94.8 kg Tylor Taylor DO Work Phone: [facility] 11-20-2024 13:52-0400 Diastolic blood pressure 74 mm[Hg] Tylor Taylor DO Work Phone: [facility] 11-20-2024 13:52-0400 Heart rate 78 /min Tylor Taylor DO Work Phone: [facility] 11-20-2024 13:52-0400 Systolic blood pressure 110 mm[Hg] Tylor Claudia DO Work Phone: [facility] 08-01-2024 13:05-0500 Body height 172.7 cm Denisse Mullins [employer]IOR BRAND MANAGER Work Phone: [facility] 08-01-2024 13:05-0500 Body mass index (BMI) [Ratio] 34.36 kg/m2 Denisse Mullins SENIOR BRAND MANAGER Work Phone: [facility] 08-01-2024 13:05-0500 Body temperature 96.6 [degF] Denisse Mullins SENIOR BRAND MANAGER Work Phone: [facility] 08-01-2024 13:05-0500 Body weight 102.51 kg Denisse Mullins SENIOR BRAND MANAGER Work Phone: [facility] 08-01-2024 13:05-0500 Diastolic blood pressure 80 mm[Hg] Denisse Mullins SENIOR BRAND MANAGER Work Phone: [facility] 08-01-2024 13:05-0500 Heart rate 74 /min Denisse Mullins SENIOR BRAND MANAGER Work Phone: [facility] 08-01-2024 13:05-0500 Respiratory rate 16 /min Denisse Mullins SENIOR BRAND MANAGER Work Phone: [facility] 08-01-2024 13:05-0500 SaO2% (BldA) [Mass fraction] 97 % Denisse Mullins SENIOR BRAND MANAGER Work Phone: [facility] 08-01-2024 13:05-0500 Systolic blood pressure 128 mm[Hg] Denisse Mullins SENIOR BRAND MANAGER Work Phone: [facility] 06-29-2024 16:58-0500 Body height 172.7 cm Yonathan Mills DPM Work Phone: [facility] 06-29-2024 16:58-0500 Body mass index (BMI) [Ratio] 34.21 kg/m2 Yonathan Mills DPM Work Phone: [facility] 06-29-2024 16:58-0500 Body weight 102.06 kg Yonathan Mills DPM Work Phone: [facility] 06-29-2024 16:58-0500 Diastolic blood pressure 80 mm[Hg] Yonathan Mills DPM Work Phone: [facility] 06-29-2024 16:58-0500 Heart rate 85 /min Yonathan Mills DPM Work Phone: [facility] 06-29-2024 16:58-0500 Systolic blood pressure 126 mm[Hg] Yonathan Mills DPM Work Phone: [facility] 05-09-2024 15:05-0400 Body height 172.7 cm Denisse Mullins SENIOR BRAND MANAGER Work Phone: [facility] 05-09-2024 15:05-0400 Body mass index (BMI) [Ratio] 34.06 kg/m2 Denisse Mullins SENIOR BRAND MANAGER Work Phone: [facility] 05-09-2024 15:05-0400 Body temperature 98.49 [degF] Denisse Mullins SENIOR BRAND MANAGER Work Phone: [facility] 05-09-2024 15:05-0400 Body weight 101.61 kg Denisse Mullins SENIOR BRAND MANAGER Work Phone: [facility] 05-09-2024 15:05-0400 Diastolic blood pressure 82 mm[Hg] Denisse Mullins SENIOR BRAND MANAGER Work Phone: [facility] 05-09-2024 15:05-0400 Heart rate 78 /min Denisse Mullins SENIOR BRAND MANAGER Work Phone: [facility] 05-09-2024 15:05-0400 SaO2% (BldA) [Mass fraction] 94 % Denisse Mullins SENIOR BRAND MANAGER Work Phone: [facility] 05-09-2024 15:05-0400 Systolic blood pressure 118 mm[Hg] Denisse Mullins SENIOR BRAND MANAGER Work Phone: [facility] 04-06-2024 14:06-0400 Body height 172.7 cm Yonathan Mills DPM Work Phone: [facility] 04-06-2024 14:06-0400 Body mass index (BMI) [Ratio] 33.3 kg/m2 Yonathan Mills DPM Work Phone: [facility] 04-06-2024 14:06-0400 Body weight 99.34 kg Yonathan Sarabjit DPM Work Phone: [facility] 04-06-2024 14:06-0400 Diastolic blood pressure 77 mm[Hg] Yonathan Mills DPM Work Phone: [facility] 04-06-2024 14:06-0400 Heart rate 80 /min Yonathan Mills DPM Work Phone: [facility] 04-06-2024 14:06-0400 Systolic blood pressure 128 mm[Hg] Yonathan Mills DPM Work Phone: [facility] 09-29-2023 15:07-0500 Body height 172.7 cm Geni Lewis MD Work Phone: [facility] 09-29-2023 15:07-0500 Body mass index (BMI) [Ratio] 33.45 kg/m2 Geni Lewis MD Work Phone: [facility] 09-29-2023 15:07-0500 Body weight 99.79 kg Geni Lewis MD Work Phone: [facility] 09-29-2023 15:07-0500 Diastolic blood pressure 68 mm[Hg] Geni Lewis MD Work Phone: [facility] 09-29-2023 15:07-0500 Systolic blood pressure 112 mm[Hg] Geni Lewis MD Work Phone: [facility] 09-01-2023 09:30-0500 Body height 172.72 cm Bambi Sandy Other [employer] Other 09-01-2023 09:30-0500 Body mass index (BMI) [Ratio] 31.77 kg/m2 Bambi Sandy Other [employer] Other 09-01-2023 09:30-0500 Body temperature 97 [degF] Bambi Sandy Other [employer] Other 09-01-2023 09:30-0500 Body weight 94.8 kg Bambi Sandy Other [employer] Other 09-01-2023 09:30-0500 Diastolic blood pressure 90 mm[Hg] Bambi Sandy Other [employer] Other 09-01-2023 09:30-0500 Respiratory rate 20 /min Bambi Sandy Other [employer] Other 09-01-2023 09:30-0500 SaO2% (BldA) [Mass fraction] 93 % Bambi Sandy Other [employer] Other 09-01-2023 09:30-0500 Systolic blood pressure 134 mm[Hg] Bambi Sandy Other [employer] Other 08-06-2023 22:00-0500 Body temperature 97.4 [degF] MD Shaikh Cruz Work Phone: [facility] 08-06-2023 22:00-0500 Diastolic blood pressure 62 mm[Hg] MD Shaikh Cruz Work Phone: [facility] 08-06-2023 22:00-0500 Heart rate 95 /min MD Shaikh Cruz Work Phone: [facility] 08-06-2023 22:00-0500 Respiratory rate 22 /min MD Shaikh Cruz Work Phone: [facility] 08-06-2023 22:00-0500 SaO2% (BldA) [Mass fraction] 90 % MD Shaikh Cruz Work Phone: [facility] 08-06-2023 22:00-0500 Systolic blood pressure 112 mm[Hg] MD Shaikh Cruz Work Phone: [facility] 08-06-2023 20:37-0500 Inhaled oxygen flow rate 3 L/min MD Shaikh Cruz Work Phone: [facility] 08-06-2023 15:50-0500 Body height 172.72 cm MD Shaikh Cruz Work Phone: [facility] 08-06-2023 15:50-0500 Body weight 97.35 kg MD Shaikh Cruz Work Phone: [facility] 07-17-2023 00:22-0500 Diastolic blood pressure 72 mm[Hg] MD Shaikh Crzu Work Phone: [facility] 07-17-2023 00:22-0500 Heart rate 90 /min MD Shaikh Cruz Work Phone: [facility] 07-17-2023 00:22-0500 Inhaled oxygen flow rate 3 L/min MD Shaikh Cruz Work Phone: [facility] 07-17-2023 00:22-0500 Respiratory rate 18 /min MD Shaikh Cruz Work Phone: [facility] 07-17-2023 00:22-0500 SaO2% (BldA) [Mass fraction] 96 % MD Shaikh Cruz Work Phone: [facility] 07-17-2023 00:22-0500 Systolic blood pressure 118 mm[Hg] MD Shaikh Cruz Work Phone: [facility] 07-16-2023 20:56-0500 Body height 172.72 cm MD Shaikh Cruz Work Phone: [facility] 07-16-2023 20:56-0500 Body temperature 98.2 [degF] MD Shaikh Cruz Work Phone: [facility] 07-16-2023 20:56-0500 Body weight 97.2 kg MD Shaikh Cruz Work Phone: [facility] 07-05-2023 15:48-0500 Diastolic blood pressure 96 mm[Hg] MD Shaikh Cruz Work Phone: [facility] 07-05-2023 15:48-0500 Heart rate 91 /min MD Shaikh Cruz Work Phone: [facility] 07-05-2023 15:48-0500 Respiratory rate 20 /min MD Shaikh Cruz Work Phone: [facility] 07-05-2023 15:48-0500 SaO2% (BldA) [Mass fraction] 95 % MD Shaikh Cruz Work Phone: [facility] 07-05-2023 15:48-0500 Systolic blood pressure 160 mm[Hg] MD Shaikh Cruz Work Phone: [facility] 07-05-2023 13:49-0500 Body height 170.18 cm MD Shaikh Cruz Work Phone: [facility] 07-05-2023 13:49-0500 Body temperature 98.5 [degF] MD Shaikh Cruz Work Phone: [facility] 07-05-2023 13:49-0500 Body weight 97.8 kg MD Shaikh Cruz Work Phone: [facility] 06-20-2023 13:40-0500 Body height 172.72 cm Courtney Valladares Other [employer] Other 06-20-2023 13:40-0500 Body mass index (BMI) [Ratio] 32.47 kg/m2 Courtney Valladares Other [employer] Other 06-20-2023 13:40-0500 Body temperature 97.8 [degF] Courtney Valladares Other [employer] Other 06-20-2023 13:40-0500 Body weight 96.89 kg Courtney Valladares Other [employer] Other 06-20-2023 13:40-0500 Respiratory rate 20 /min Courtney Valladares Other [employer] Other 06-20-2023 13:40-0500 SaO2% (BldA) [Mass fraction] 91 % Courtney Valladares Other [employer] Other 03-14-2023 15:19-0400 Body temperature 97.5 [degF] MD Shaikh Cruz Work Phone: [facility] 03-14-2023 15:19-0400 Diastolic blood pressure 81 mm[Hg] MD Shaikh Cruz Work Phone: [facility] 03-14-2023 15:19-0400 Heart rate 83 /min MD Shaikh Cruz Work Phone: [facility] 03-14-2023 15:19-0400 Respiratory rate 18 /min MD Shaikh Cruz Work Phone: [facility] 03-14-2023 15:19-0400 SaO2% (BldA) [Mass fraction] 97 % MD Shaikh Cruz Work Phone: [facility] 03-14-2023 15:19-0400 Systolic blood pressure 145 mm[Hg] MD Shaikh Cruz Work Phone: [facility] 03-14-2023 03:51-0400 Body weight 94.1 kg MD Shaikh Cruz Work Phone: [facility] 03-13-2023 00:00-0400 Inhaled oxygen flow rate 2 L/min MD Shaikh Cruz Work Phone: [facility] 03-11-2023 16:04-0400 Body height 170.18 cm MD Shaikh Cruz Work Phone: [facility] 02-14-2023 14:30-0400 Body height 172.72 cm Katie Alberto Other [employer] Other 02-14-2023 14:30-0400 Body mass index (BMI) [Ratio] 14.93 kg/m2 Katie Alberto Other [employer] Other 02-14-2023 14:30-0400 Body temperature 97.8 [degF] Katie Alberto Other [employer] [employer] Other 02-14-2023 14:30-0400 Body weight 44.54 kg Katie Alberto Other [employer] Other 02-14-2023 14:30-0400 Respiratory rate 18 /min Katie Alberto Other [employer] Other 02-14-2023 14:30-0400 SaO2% (BldA) [Mass fraction] 94 % Katie Alberto Other [facility] [employer] Other 01-02-2021 09:40-0400 Diastolic blood pressure 65 mm[Hg] Walker Dudenhoefer Work Phone: [facility] 01-02-2021 09:40-0400 Heart rate 86 /min Walker Dudenhoefer Work Phone: [facility] 01-02-2021 09:40-0400 Respiratory rate 16 /min Walkre Dudenhoefer Work Phone: [facility] 01-02-2021 09:40-0400 SaO2% (BldA) [Mass fraction] 95 % Walker Dudenhoefer Work Phone: [facility] 01-02-2021 09:40-0400 Systolic blood pressure 112 mm[Hg] Walker Dudenhoefer Work Phone: [facility] 01-02-2021 08:23-0400 Body height 172.72 cm Walker Dudenhoefer Work Phone: [facility] 01-02-2021 08:23-0400 Body mass index (BMI) [Ratio] 36.5 kg/m2 Walker Dudenhoefer Work Phone: [facility] 01-02-2021 08:23-0400 Body weight 108.86 kg Walker Dudenhoefer Work Phone: [facility] 01-02-2021 06:56-0400 Body temperature 98.7 [degF] Walker Dudenhoefer Work Phone: [facility] Encounters Encounter Date Encounter Type Care Provider Facility Start: 01-19-2025 End: 01-19-2025 Telephone encounter Tylor Taylor DO Work Phone: [facility] 230 Comment on above: Care Coordination Start: 01-16-2025 End: 01-16-2025 ambulatory GABBIE WALLACE Not Available Start: 12-28-2024 End: 12-28-2024 ambulatory MARVIN WANG [facility] Start: 11-20-2024 End: 11-20-2024 Assay of hemosiderin, quant Gabbie Wallace SENIOR BRAND MANAGER Work Phone: [facility] Start: 11-20-2024 End: 11-20-2024 Patient encounter procedure Gabbie Wallace SENIOR BRAND MANAGER Work Phone: [facility] 230 Comment on above: Routine general medi finn examination at health care facility (Primary Dx); Colon cancer screening; Encounter for screening mammogram for breast cancer; Pulmonary emphysema, unspecified emphysema type (CMS/HCC); Primary hypertension (CMS/HCC); Poorly controlled type 2 diabetes mellitus (CMS/HCC); Current smoker; Mixed hyperlipidemia (CMS/HCC); History of hysterectomy Start: 11-20-2024 End: 11-20-2024 Bamboo flowsheet Tylor Taylor DO Work Phone: [facility] 230 Start: 11-20-2024 End: 11-20-2024 Bamboo flowsheet Tylor Taylor DO Work Phone: [facility] 230 Start: 11-20-2024 End: 11-20-2024 Refill [facility]ylor Taylor DO [facility]: [facility] 230 Comment on above: Poorly controlled ty pe 2 diabetes mellitus (CMS/HCC) Start: 11-20-2024 End: 11-20-2024 ambulatory GABBIE WALLACE Not Available Start: 11-20-2024 End: 11-20-2024 Office outpatient new 45 minutes Tylor Taylor DO Work Phone: [facility] 230 Comment on above: Primary hypertension (CMS/HCC) (Primary Dx); Pulmonary emphysema, unspecified emphysema type (CMS/HCC); Poorly controlled type 2 diabetes mellitus (CMS/HCC); Mixed hyperlipidemia (CMS/HCC); Type 2 diabetes mellitus with diabetic polyneuropathy, with long-term current use of insulin (CMS/HCC); Diabetic polyneuropathy associated with type 2 diabetes mellitus (CMS/HCC); Bipolar disorder, unspecified (CMS/HCC); Chronic obstructive pulmonary disease, unspecified; Type 2 diabetes mellitus with other skin ulcer (CODE); 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) (CMS/HCC); Centrilobular emphysema (CMS/HCC) Start: 09-27-2024 End: 09-27-2024 ambulatory MARVIN WANG [facility] Start: 09-21-2024 End: 09-25-2024 Refill Arminda Herrera MA [facility] Comment on above: Gastroesophageal ref lux disease, unspecified whether esophagitis present (Primary Dx) Start: 08-11-2024 End: 08-12-2024 Refill Denisse Mullins SENIOR BRAND MANAGER Work Phone: [facility] Comment on above: Neck pain Start: 08-01-2024 End: 08-01-2024 Bamboo flowsheet Denisse Blakek SENIOR BRAND MANAGER Work Phone: [facility] Start: 08-01-2024 End: 08-01-2024 Bamboo flowsheet Denisse Herrmannzpatrick SENIOR BRAND MANAGER Work Phone: [facility] Start: 08-01-2024 End: 08-01-2024 ambulatory DENISSE RUBINPATRICK Not Available Start: 08-01-2024 End: 08-01-2024 Office outpatient visit 15 minutes Denisse Mullins SENIOR BRAND MANAGER Work Phone: [facility] Comment on above: Neck pain (Primary D x); Hyperlipidemia, unspecified hyperlipidemia type (CMS/HCC); Type 2 diabetes mellitus with diabetic polyneuropathy, with long-term current use of insulin (CMS/HCC); Pulmonary emphysema, unspecified emphysema type (CMS/HCC); Poorly controlled type 2 diabetes mellitus (CMS/HCC) Start: 07-06-2024 End: 07-08-2024 Clinisync Result Encounter Generic External Data Provider [facility] External Department Unsolicited Start: 07-06-2024 End: 07-08-2024 Clinisync Result Encounter Generic External Data Provider [facility] External Department Unsolicited Start: 06-29-2024 End: 06-29-2024 ambulatory YONATHAN MILLS Not Available Start: 06-29-2024 End: 06-29-2024 Patient encounter procedure Yonathan Mills DPM Work Phone: [facility] Comment on above: Diabetes mellitus du e to underlying condition with diabetic polyneuropathy, with long-term current use of insulin (CMS/HCC) (Primary Dx); Pain due to onychomycosis of toenails of both feet; Hav (hallux abducto valgus), left Start: 06-29-2024 End: 06-29-2024 Bamboo flowsheet Yonathan Mills DPM Work Phone: [facility] Start: 06-29-2024 End: 06-29-2024 Bamboo flowsheet Yonathan Mills DPM Work Phone: [facility] Start: 06-29-2024 End: 06-29-2024 ambulatory [facility] Start: 05-29-2024 End: 06-13-2024 Refill Carey Barth [facility] Comment on above: Gastroesophageal ref lux disease without esophagitis Start: 05-09-2024 ambulatory [facility] Facility:[facility] Start: 05-09-2024 End: 05-09-2024 Periodic preventive med est patient 40-64yrs Denisse Mullins SENIOR BRAND MANAGER Work Phone: [facility] Comment on above: Screening for colon cancer (Primary Dx); Screening mammogram for breast cancer; Wellness examination; Poorly controlled type 2 diabetes mellitus (CMS/HCC); Type 2 diabetes mellitus with diabetic polyneuropathy, with long-term current use of insulin (CMS/HCC); Neck pain; Hyperlipidemia, unspecified hyperlipidemia type (CMS/HCC); Radiculopathy, lumbosacral region Start: 05-09-2024 End: 05-09-2024 ambulatory DENISSE MULLINS Not Available Start: 05-09-2024 End: 05-09-2024 Bamboo flowsheet Denisse Mullins SENIOR BRAND MANAGER Work Phone: [facility] Start: 05-09-2024 End: 05-09-2024 Bamboo flowsheet Denisse Rubinpatrick SENIOR BRAND MANAGER Work Phone: [facility] Start: 05-09-2024 End: 05-09-2024 Patient encounter status Denisse Mullins SENIOR BRAND MANAGER Work Phone: [facility] Start: 04-06-2024 End: 04-06-2024 ambulatory YONATHAN MILLS Not Available Start: 04-06-2024 End: 04-06-2024 Office outpatient new 30 minutes Yonathan Mills DPM Work Phone: [facility] Comment on above: Hav (hallux abducto valgus), left (Primary Dx); Diabetes mellitus due to underlying condition with diabetic polyneuropathy, with long-term current use of insulin ([facility]/HCC); Toe pain, bilateral; Onychomycosis Start: 04-05-2024 End: 04-05-2024 ambulatory [facility] Start: 03-13-2024 End: 03-13-2024 ambulatory SHAIKH EMILKALYAN Not Available Start: 09-29-2023 End: 09-29-2023 Office outpatient new 45 minutes Geni Lewis MD Work Phone: [facility] Comment on above: Hoarse (Primary Dx); Chronic laryngitis; Thrush Start: 09-29-2023 Bamboo flowsheet Geni murphy MD Work Phone: [facility] Start: 09-29-2023 Bamboo flowsheet Geni murphy MD Work Phone: [facility] Start: 09-25-2023 Chart abstracting Geni hyatt MD Work Phone: [facility] [place] Start: 09-21-2023 End: 09-21-2023 ambulatory Bambi Sandy Other [employer] Other Start: 09-21-2023 Telephone encounter Bambi Sandy [facility] Start: 09-14-2023 End: 09-14-2023 ambulatory Bambi Sandy Other [employer] Other Start: 09-14-2023 Telephone encounter Bambi Sandy [facility] Start: 09-01-2023 End: 09-01-2023 ambulatory Bambi Sandy Other [employer] Other Start: 09-01-2023 Office outpatient vi sit 25 minutes Bambi Sandy [facility] Start: 08-30-2023 End: 08-30-2023 ambulatory Kamal Chaban Facility:[facility] Start: 08-30-2023 End: 08-30-2023 ambulatory MD Shaikh Cruz Work Phone: [facility] Work Phone: Start: 08-30-2023 End: 08-30-2023 Patient encounter procedure MD Shaikh Cruz Work Phone: [facility]-CT Scan [facility] [place] Work Phone: Start: 08-06-2023 End: 08-07-2023 Emergency department patient visit Marilee Marcum Facility:[facility] Start: 08-06-2023 End: 08-06-2023 Emergency department patient visit MD Shaikh Cruz Work Phone: [facility]-Emergency Room Work Phone: Start: 07-16-2023 End: 07-17-2023 Emergency department patient visit Yasmin Leung Facility:[facility] Start: 07-16-2023 End: 07-17-2023 Emergency department patient visit MD Shaikh Cruz Work Phone: [facility]-Emergency Room Work Phone: Start: 07-05-2023 End: 07-05-2023 Emergency department patient visit Shaikh Anthony Facility:[facility] Start: 07-05-2023 End: 07-05-2023 Emergency department patient visit MD Shaikh Cruz Work Phone: [facility]-Emergency Room Work Phone: Start: 06-20-2023 End: 06-20-2023 ambulatory Courtney Valladares Other [employer] Other Start: 06-20-2023 Office outpatient vi sit 25 minutes Courtney Valladares [facility] Start: 04-09-2023 End: 04-09-2023 ambulatory Valeriano Horta Facility:[facility] Start: 04-09-2023 End: 04-09-2023 ambulatory MD Shaikh Cruz Work Phone: [facility] Work Phone: Start: 04-09-2023 End: 04-09-2023 Patient encounter procedure MD Shaikh Cruz Work Phone: [facility]-CT [address] Work Phone: Start: 03-16-2023 End: 03-16-2023 ambulatory Errol Nicole Other [employer] Other Start: 03-16-2023 Telephone encounter Errol Nicole [facility] Start: 03-10-2023 End: 03-14-2023 Evaluation and management of inpatient Krunal Kelly Facility:[facility] Start: 03-10-2023 End: 03-14-2023 Evaluation and management of inpatient MD Shaikh Cruz Work Phone: [facility] [place] [facility] Work Phone: Start: 02-14-2023 End: 02-14-2023 ambulatory Katie Alberto Other [employer] Other Start: 02-14-2023 Office outpatient ne w 20 minutes Katie Alberto [facility] Start: 12-01-2022 End: 12-02-2022 ambulatory SHAIKH Karoline CRUZ Facility:[facility] Start: 11-11-2022 End: 11-12-2022 ambulatory STEPHENS H FAWWAD Facility:[facility] Start: 09-11-2022 End: 09-11-[address] GIOVANNY Salas Facility:[facility] Start: 07-24-2022 End: 07-24-2022 ambulatory STEPHENS H FAWWAD Facility:[facility] Start: 05-25-2022 End: 05-26-2022 ambulatory STEPHENS H FAWWAD Facility:[facility] Start: 04-27-2022 End: 04-27-2022 ambulatory STEPHENS H FAWWAD Facility:[facility] Start: 04-25-2022 End: 04-25-2022 ambulatory AMILCAR [...] Start: 06-10-2021 End: 06-14-2021 ambulatory UNKNOWN PROVIDER Facility:[facility] Start: 01-28-2021 End: 01-28-2021 Patient encounter procedure Walker Alba Work Phone: -Pre-Surgical Testing Start: 01-02-2021 End: 01-02-2021 Admission to same day surgery center Walker Alba Work Phone: [facility] [place] Start: 12-31-2020 End: 12-31-2020 Patient encounter procedure Walker Alba Work Phone: -Pre-Surgical Testing Start: 12-24-2020 End: 12-24-2020 ambulatory UNKNOWN PROVIDER Facility:[facility] Start: 12-03-2020 End: 12-03-2020 Patient encounter procedure Walker Alba Work Phone: -Pre-Surgical Testing Start: 10-31-2020 End: 10-31-2020 Departed Referred Walker Alba Work Phone: -Pre-Surgical Testing Start: 10-31-2020 End: 10-31-2020 Patient encounter procedure Walker Alba Work Phone: -Pre-Surgical Testing Procedures Date Procedure Procedure Detail Performing Clinician Start: 01-16-2025 Mammography Tylor Claudia DO Work Phone: Start: 11-22-2024 Comprehensive metabolic panel Gabbie solis SENIOR BRAND MANAGER Work Phone: Start: 11-22-2024 Lipid panel Gabbie Wallace SENIOR BRAND MANAGER Work Phone: Start: 11-22-2024 Urine albumin quantitative Gabbie Wallace SENIOR BRAND MANAGER Work Phone: Start: 08-01-2024 Hemoglobin glycosylated a1c Denisse bunn SENIOR BRAND MANAGER Work Phone: Start: 07-06-2024 Bacteria identified in Urine by Culture Generic External Data Provider Start: 08-30-2023 CT of chest without contrast [...] CT of thorax with contrast MD Shaikh Emil damon Work Phone: Start: 03-10-2023 Plain chest X-ray MD Shaikh Cruz Work Phone: Start: 01-02-2021 Phacoemulsification of cataract with intraocular lens implantation Walker Parth Work Phone: H/O: hysterectomy History of hysterectomy Gabbie Duque Mariolong [place] Work Phone: Plan of Treatment Date Care Activity Detail Author Start: 01-16-2026 Screening for malign ant neoplasm of breast Mammogram [facility] Start: 11-22-2025 Urine screening for protein Diabetes: Urine Protein Screening [facility] Start: 11-20-2025 Medicare Annual Well ness (AWV) Medicare Annual Wellness (AWV) [facility] Start: 09-20-2025 Glaucoma screening Diabetes: R etinopathy Screening [facility] Start: 05-09-2025 Medicare Annual Well ness (AWV) Medicare Annual Wellness (AWV) [facility] Start: 04-16-2025 Influenza vaccination Influenz a Vaccine (Season Ended) [facility] Start: 02-26-2025 End: 02-26-2025 Patient encounter procedure 02/26/2025 2:00 PM EDT Office Visit [facility] [address] [place] [address] Tylor Taylor DO [address] [place], [place] [id number] [facility] Start: 02-21-2025 Hemoglobin A1c measurement Diabetes: Hemoglobin A1C [facility] Start: 01-26-2025 End: 01-26-2025 Patient encounter procedure 01/26/2025 10:00 AM EDT Office Visit [facility] [address] [place] [id number] Tylor Ann DO [address] [place], [place] [phone] [facility] Start: 01-16-2025 End: 01-16-2025 Professional / ancillary services management 01/16/2025 3:00 PM EDT Ancillary Procedure [facility] [place] [address] [place] [address] [facility] [place] Start: 01-09-2025 End: 01-09-2025 Patient encounter procedure 01/09/2025 1:30 PM EDT Office Visit [facility] [address] [facility] [address] [place] [phone] Tylor Ann DO [address] [facility] [address] [place] [address] [facility] Start: 11-20-2024 End: 01-20-2026 MG Breast - bilateral Screening Bilateral screening mammogram Imaging Routine Encounter for screening mammogram for breast cancer Expected: 11/20/2024, Expires: 01/20/2026 [facility] Work Phone: Comment on above: Expected: 11/20/2024 , Expires: 01/20/2026 Start: 10-31-2024 End: 10-31-2024 Patient encounter procedure 10/31/2024 2:00 PM EDT Office Visit [facility] [address] [place] [phone] Denisse Mullins NP [address] [place] [phone] [facility] Start: 10-30-2024 Hemoglobin A1c measurement Diabetes: Hemoglobin A1C [facility] Start: 10-05-2024 End: 10-05-2024 Patient encounter procedure 10/05/2024 2:50 PM EST Office Visit [facility] [address] [place] [phone] Yonathan Mills, CARLITA [address] [facility] 5 [place] [address] [facility] Start: 09-07-2024 End: 09-07-2024 Patient encounter procedure 09/07/2024 4:40 PM EST Office Visit [facility] [address] [place] [address] Yonathan Mills DPM [address] [address] [facility] Start: 07-19-2024 End: 07-19-2024 Patient encounter procedure 07/19/2024 3:00 PM EST Office Visit [facility] [address] [place] [address] Denisse Mullins, HAYLEY [address] [place] [address] [facility] Start: 06-20-2024 End: 06-20-2024 Patient encounter procedure 06/20/2024 3:00 PM EST Office Visit [facility] [address] [place] [address] Denisse Mullins, SENIOR BRAND MANAGER [address] [place] [address] [facility] Start: 06-15-2024 End: 06-15-2024 Patient encounter procedure 06/15/2024 3:30 PM EDT Office Visit [facility] [address] [facility] [address] [place] [address] Yonathan Mills DPM [address] [address] [facility] Start: 05-09-2024 End: 05-09-2024 Patient encounter procedure 05/09/2024 3:00 PM EDT Office Visit [facility] [address] [place] [address] Denisse Mullins, SENIOR BRAND MANAGER [address] [place] [address] Arrived [facility] Comment on above: Arrived Start: 05-09-2024 End: 05-09-2025 CBC W Auto Differential panel - Blood CBC and differential Lab Routine Wellness examination Expected: 05/09/2024 (Approximate), Expires: 05/09/2025 [facility] Comment on above: Expected: 05/09/2024 (Approximate), Expires: 05/09/2025 Start: 05-09-2024 End: 05-09-2025 Comprehensive metabolic 2000 panel - Serum or Plasma Comprehensive metabolic panel Lab Routine Wellness examination Expected: 05/09/2024 (Approximate), Expires: 05/09/2025 [facility] Comment on above: Expected: 05/09/2024 (Approximate), Expires: 05/09/2025 Start: 05-09-2024 End: 05-09-2025 Hemoglobin A1c/Hemoglobin.total in Blood Hemoglobin A1c Lab Routine Wellness examination Poorly controlled type 2 diabetes mellitus (CMS/HCC) Expected: 05/09/2024 (Approximate), Expires: 05/09/2025 [facility] Comment on above: Expected: 05/09/2024 (Approximate), Expires: 05/09/2025 Start: 05-09-2024 End: 05-09-2025 Lipid 1996 panel - Serum or Plasma Lipid panel Lab Routine Wellness examination Expected: 05/09/2024 (Approximate), Expires: 05/09/2025 [facility] Comment on above: Expected: 05/09/2024 (Approximate), Expires: 05/09/2025 Start: 05-09-2024 End: 07-09-2025 MG Breast - bilateral Screening Bilateral screening mammogram Imaging Routine Screening mammogram for breast cancer Expected: 05/09/2024, Expires: 07/09/2025 [facility] Work Phone: Comment on above: Expected: 05/09/2024 , Expires: 07/09/2025 Start: 05-09-2024 End: 05-09-2025 TSH W/REFLEX TO FT4 TSH W/REFLEX TO FT4 Lab Routine Wellness examination Expected: 05/09/2024 (Approximate), Expires: 05/09/2025 [facility] Comment on above: Expected: 05/09/2024 (Approximate), Expires: 05/09/2025 Start: 04-16-2024 Influenza vaccination Influenza Vacc ine (#1) [facility] Start: 09-29-2023 End: 09-29-2023 Patient encounter procedure 09/29/2023 3:00 PM EST Office Visit [facility] [address] [facility] [address] [place] [address] Geni Lewis MD [address] [facility] [address] [place] [address] [facility] Start: 07-16-2023 Plain chest X-ray XR chest 1V [facility] Start: 07-16-2023 XR Chest Single view [facility] Start: 03-14-2023 [facility] Start: 03-14-2023 Referral to Cash Register Operator [facility] Start: 03-14-2023 [facility] Start: 03-11-2023 Plain chest X-ray XR chest 1V [facility] Start: 03-11-2023 XR Chest Single view [facility] Start: 03-11-2023 [facility] Start: 03-11-2023 Mycology culture Mycology Culture [facility] Start: 03-10-2023 Consultation [facility] Start: 03-10-[address] [facility] Start: 03-10-2023 Referral to thoracic surgeon [facility] Start: 03-10-2023 Blood culture for bacteria, including anaerobic screen Blood Culture [facility] Start: 03-10-2023 Drainage of Bilatera l Lungs, Via Natural or Artificial Opening Endoscopic Drainage of Bilateral Lungs, Via Natural or Artificial Opening Endoscopic [facility] Start: 03-10-2023 Excision of Left Low er Lung Lobe, Via Natural or Artificial Opening Endoscopic, Diagnostic Excision of Left Lower Lung Lobe, Via Natural or Artificial Opening Endoscopic, Diagnostic [facility] Start: 06-21-2022 Urine screening for protein Diabetes: Urine Protein Screening [facility] Start: 2015 Screening for malign ant neoplasm of breast Mammogram [facility] Start: 1994 Urine screening for protein Diabetes: Urine Protein Screening [facility] Start: 1985 Glaucoma screening Diabetes: R etinopathy Screening [facility] Start: 1975 Hemoglobin A1c measurement Diabetes: Hemoglobin A1C [facility] Start: 1975 Medicare Annual Well ness (AWV) Medicare Annual Wellness (AWV) [facility] Start: 1975 Screening for malign ant neoplasm of colon [facility] Fungus identified in Unspecified specimen by Culture [facility] Microalbumin/Creatin ine panel in random Urine Microalbumin / creatinine urine ratio Lab Routine Poorly controlled type 2 diabetes mellitus ([facility]/HCC) Ordered: 05/09/2024 [facility] Comment on above: Ordered: 05/09/2024 Mycobacterium sp identified in Unspecified specimen by Organism specific culture [facility] Patient Education [facility] Work Phone: Patient referral [facility] Immunizations Immunization Date Immunization Notes Care Provider Fa cility 09-01-2023 influenza, injectabl e, quadrivalent, preservative free Yonathan Mills DPM Work Phone: [facility] 09-01-2023 Pneumococcal Conjuga te PCV 20 Yonathan Mills DPM Work Phone: [facility] 09-01-2023 influenza virus vacc ine, unspecified formulation Yonathan Mills DPM Work Phone: [facility] 06-19-2021 tetanus toxoid, redu nereida diphtheria toxoid, and acellular pertussis vaccine, adsorbed Yonathan Mills DPM Work Phone: [facility] 06-04-2021 influenza, injectabl e, quadrivalent, preservative free Yonathan Mills DPM Work Phone: [facility] 11-17-2018 hepatitis A vaccine, adult dosage Yonathan Mills DPM Work Phone: [facility] 10-20-2018 influenza, injectabl e, quadrivalent, preservative free Yonathan Mills DPM Work Phone: [facility] Payers Date Payer Category Payer Self-pay [id number] 2021 Medicare [employer] MEDICARE A DVANTAGE A[employer]NA MEDICARE REPLACEMENT [id number] 2021-Present [address] [place] [address] [id number] 2020 Medicare [id number] 2020 Medicaid [id number] 1975 Unknown [id number] [id number] 1975 Unknown [id number] [id number] 1975 Unknown [id number] [id number]3 1975 Unknown [id number] [id number] 1975 Unknown [id number] [id number] 1975 Unknown [id number] 2.16840.1.660162.3.579.2.593 1975 Unknown [id number] 2.16.840.1.784875.3.579.2.593 1975 Unknown [id number] 2.16.840.1.045865.3.579.2.593 1975 Unknown [id number] 2.16840.1.269052.3.579.2.593 1975 Unknown [id number] 2.16.840.1.604966.3.579.2.593 1975 Unknown [id number] 2.16.840.1.431376.3.579.2.593 1975 Unknown [id number] 2.16.840.1.833917.3.579.2.593 1975 Unknown [id number] 2.16.840.1.650740.3.579.2.593 1975 Unknown [id number] 2.16.840.1.822733.3.579.2.593 1975 Unknown [id number] 2.16.840.1.947520.3.579.2.593 1975 Unknown [id number] 2.16.840.1.529334.3.579.2.593 1975 Unknown [id number] 2.16.840.1.282357.3.579.2.593 1975 Unknown [id number] [id number]3 1975 Unknown [id number] 2.16.840.1.442672.3.579.2.593 1975 Unknown [id number] 2.16.840.1.186792.3.579.2.593 1975 Unknown [id number] 2.16.840.1.297609.3.579.2.727 1975 Unknown [id number] 2.16.840.1.689761.3.579.2.1286 1975 Unknown [id number] 2.16.840.1.871743.3.579.2.128 1975 Unknown [id number] 2.16.840.1.749602.3.579.2.128 1975 Unknown [id number] 2.16.840.1.933101.3.579.2.128 1975 Unknown [id number] 2.16.840.1.489305.3.579.2.125 1975 Unknown [id number] 2.840.1.181341.3.579.2.1258 1975 Unknown [id number] 2.840.1.559993.3.579.2.1258 1975 Unknown [id number] 2.840.1.921238.3.579.2.1258 1975 Unknown [id number] 2.840.1.284577.3.579.2.1258 1975 Unknown [id number] 2.840.1.698333.3.579.2.1258 1975 Unknown [id number] 2.840.1.148136.3.579.2.1258 1975 Unknown [id number] 2.840.1.836979.3.579.2.9 1959 Medicaid [id number] 1959 Medicare [id number] Unknown [id number] Unknown [id number] 2.840.1.836818.3.579.2.531 Unknown [id number] 2.840.1.848219.3.579.2.531 Unknown [id number] 2.840.1.345284.3.579.2.531 Unknown [id number] 2.840.1.912861.3.579.2.531 Unknown [id number] 2.840.1.645894.3.579.2.531 Unknown [id number] 2.840.1.747408.3.579.2.531 Social History Date Type Detail Facility Start: 10-31-2020 End: 12-15-2023 Tobacco smoking status NEIS Smoker (finding) [facility] Start: 1975 Sex Assigned At Female F [facility] Start: 09-06-2023 End: 11-20-2024 Sex Assigned At [facility] Start: 09-06-2023 Tobacco smoking status NEIS Smokes tobacco daily [facility] End: 12-15-2023 History of tobacco use Cigarette Smoker [facility] Start: 09-06-2023 End: 11-20-2024 Cigarettes smoked current (pack per day) - Reported 1.5 [facility] Start: 09-06-2023 End: 03-13-2024 Tobacco use and exposure Smokeless tobacco non-user [facility] Start: 09-25-2023 End: 09-29-2023 Alcohol intake Current drinker of alcohol (finding) [facility] How often to you hav e a drink containing alcohol? Monthly or less [facility] How many standard drinks containing alcohol do you have on a typical day? 1 or 2 [facility] Frequency of Binge Drinking Not on file [facility] Start: 07-12-2023 Alcohol Comment caffeine: 3-4 cans pop daily [facility] Start: 1975 Sex Assigned At Not on file [facility] [place] [place] [facility] Start: 03-13-2024 Tobacco smoking status [facility] Ex-smoker [facility] Start: 05-09-2024 End: 11-20-2024 Alcoholic beverage intake Lifetime non-drinker (finding) [facility] NEGATED: Highlighted rowStart: NINF History of tobacco use Passive smoker [facility] Medical Equipment Procedure Code Equipment Code Equipment Origin al Text Equipment Identifier Dates Phacoemulsification of cataract with intraocular lens implantation Posterior-chamber intraocular lens, pseudophakic ()[id number] FDA Start: 01-02-2021 Phacoemulsification of cataract with intraocular lens implantation Posterior-chamber intraocular lens, pseudophakic ()[id number] FDA Start: 2021 [id number] End: 08-01-2024 4 (four) times a day as needed. [id number] Inject under the skin if needed. Use as instructed [id number] 1 each by Other route in the morning and 1 each in the evening and 1 each before bedtime. Use TID before meals. [id number] Start: 02-24-2024 End: 08-22-2024 1 each in the morning and 1 each at noon and 1 each in the evening and 1 each before bedtime. [id number] Start: 02-28-2024 End: 05-28-2024 Goals Date Patient Goal Desired Activity /State Functional Status Date Assessment Result Facility 11-20-2024 Patient Health [facility] ionnaire 2 item (PHQ-2) [Reported] [facility] 03-14-2023 Functional status Patient at Baseline [facility] Work Phone: [facility] Mental Status Date Assessment Result Facility 03-14-2023 Cognitive function Cognitive Sta tus Patient at Baseline [facility] Work Phone: Clinical Notes 04-10-2022 to 01-19-2025 Telephone Encounter - Germania Dominguez - 01/19/2025 11:12 AM EDTTelephone Encounter - Germania Dominguez - 01/19/2025 11:12 AM IVETTETGabbie Wallace NP - 11/20/2024 3:00 PM EDTPatient Instructions Note Date & Type Note Facility 01-19-2025 Telephone encount er Note Received rx on 01/15/2025. Requesting most recent ov notes (with 6 months), showing compliance to continuous glucose monitoring signed by provider. fax [facility] 01-19-2025 Miscellaneous Notes Formattin g of this note might be different from the original. Received rx on 01/15/2025. Requesting most recent ov notes (with 6 months), showing compliance to continuous glucose monitoring signed by provider. fax documented in this encounter [facility] 11-20-2024 History of Presen t illness Narrative Images from the original note were not included. Subjective : Chief Complaint: Christiane Perez is an 49 y.o. female here for an annual wellness visit. I have reviewed and reconciled the history and medication list with the patient today. Current Outpatient Medications Medication Sig Dispense Refill atorvastatin (Lipitor) 40 MG tablet Take 1 tablet (40 mg) by mouth Daily 90 tablet 0 Blood Glucose Monitoring Suppl (FreeStyle Lite) device Test daily before all meals/snacks and once before bedtime. 1 each 0 Lidspjw-Kkvmnexrmwl-Bfqurriiqi (Breztri Aerosphere) 160-9-4.8 MCG/ACT aerosol Inhale 2 puffs in the morning and 2 puffs before bedtime. 10.7 g 2 celecoxib (CeleBREX) 200 MG capsule Take 1 capsule (200 mg) by mouth in the morning and 1 capsule (200 mg) before bedtime. 60 capsule 2 Continuous Blood Gluc Surveyor Hydrographic (FreeStyle Magali 14 Day Lincoln) device 4 (four) times a day as needed. Continuous Blood Gluc Sensor (FreeStyle Magali 14 Day Sensor) misc 4 (four) times a day as needed. dapagliflozin (Farxiga) 10 MG Take 1 tablet (10 mg) by mouth Daily 90 tablet 1 Dulaglutide 4.5 MG/0.5ML solution auto-injector Inject 4.5 mg under the skin 1 (one) time per week 0.5 mL 11 escitalopram (Lexapro) 20 MG tablet Take 20 mg by mouth in the morning. gabapentin (Neurontin) 600 MG tablet Take 1 tablet (600 mg) by mouth in the morning and 1 tablet (600 mg) in the evening and 1 tablet (600 mg) before bedtime. 270 tablet 0 insulin glargine (Lantus) 100 UNIT/ML injection Inject 20 units daily at 9 pm. 6 mL 11 insulin lispro (HumaLOG KWIKPEN) 100 UNIT/ML injection Inject 10 units 3 times per day as directed. 15 mL 3 LORazepam (Ativan) 1 MG tablet Take 1 mg by mouth in the morning and 1 mg before bedtime. omeprazole (PriLOSEC) [address] capsule Take 1 capsule (40 mg) by mouth in the morning. Take before meals. Do not crush or chew.. 90 capsule 0 pen needle 31G x 5 mm misc Inject under the skin if needed Use as instructed risperiDONE (RisperDAL) 1 MG tablet Take 1 mg by mouth in the morning and 1 mg before bedtime. SITagliptin-metFORMIN ER (Janumet XR) 100-1000 MG per 24 hr tablet Take 1 tablet by mouth at bedtime 90 tablet 0 tiZANidine (Zanaflex) 4 MG tablet TAKE 1 TABLET (4 MG) BY MOUTH 3 (THREE) TIMES A DAY NEEDED FOR MUSCLE SPASMS 270 tablet 0 albuterol (2.5 MG/3ML) 0.083% nebulizer solution Take 3 mL (2.5 mg) by nebulization every 4 (four) hours if needed for wheezing 75 mL 0 albuterol HFA 90 mcg/act inhaler Inhale 2 puffs every 4 (four) hours if needed for wheezing or shortness of breath 6.7 g 1 No current facility-administered medications for this visit. Review of Systems All other systems reviewed and are negative. List of current healthcare providers: Patient Care Team: Tylor Taylor DO as PCP - General (Family Medicine) Bambi Delgado MD as Referring Physician (Internal Medicine) Marvin Wang MD as Referring Physician (Behavioral Health) Medicare Annual Visit Over the past 2 weeks, how often have you been bothered by any of the following problems? Little interest or pleasure in doing things: Nearly every day Feeling down, depressed, or hopeless: Several days Patient Health Questionnaire-2 Score: 4 Over the past 2 weeks, how often have you been bothered by any of the following problems? Trouble falling or staying asleep, or sleeping too much: Not at all Feeling tired or having little energy: Nearly every day Poor appetite or overeating: Several days Feeling bad about yourself - or that you are a failure or have let yourself or your family down: Several days Trouble concentrating on things, such as reading the newspaper or watching television: Not at all Moving or speaking so slowly that other people could have noticed? Or the opposite - being so fidgety or restless that you have been moving around a lot more than usual.: Several days Thoughts that you would be better off or hurting yourself in some way: More than half the days Patient Health Questionnaire-9 Score: 12 Jones Fall Risk History of Falling, Immediate or Within 3 Months: Yes Secondary Diagnosis: No Ambulatory Aid: Walks without aid/bedrest/nurse assist Intravenous Therapy/Heparin Lock: No Gait/Transferring: Weak Mental Status: Oriented to own ability Jones Fall Risk Score: 35 Health Risk Assessment Form Do you need help eating, bathing, using the toilet, dressing, or getting around your home?: No Can you prepare your own meals?: Yes Can you do your own housework without help?: No Can you shop for groceries or clothes without help?: No Do you exercise for about 20 minutes 3 or more days a week?: No How confident are you that you can control and manage most of your health problems?: Somewhat confident Can you mange your money, credit cards and accounts, pay bills and taxes?: Yes Vision Screening: Yes, no gross abnormalities Hearing Screening: Not done Cognitive Screening Self Assessment: No overt cognitive deficiency is apparent by direct observation Three Word Registration: Banana, [place], Chair Clock Drawing: Normal Clock - 2 Three Word Recall: 2/3 words correct - 2 Total Score (0-5 Points): 4 Cognitive Screening Not Completed: Cognitive impairment present Pain Assessment Pain Score: 6 Advance Care Planning Do you have a living will?: No Do you have a medical power of state's attorney?: No Objective : BP 110/74 Pulse 78 Temp 98.2 F Ht 5' 8 Wt 209 lb BMI 31.78 kg/m No results found. Physical Exam Constitutional: Appearance: Normal appearance. She is obese. HENT: Head: Normocephalic and atraumatic. Right Ear: Tympanic membrane normal. Left Ear: Tympanic membrane normal. Nose: Nose normal. Mouth/Throat: Mouth: Mucous membranes are moist. Pharynx: Oropharynx is clear. Eyes: Extraocular Movements: Extraocular movements intact. Neck: Vascular: No carotid bruit. Cardiovascular: Rate and Rhythm: Normal rate and regular rhythm. Heart sounds: Normal heart sounds. Pulmonary: Effort: Pulmonary effort is normal. Breath sounds: Wheezing present. No rhonchi or rales. Musculoskeletal: Cervical back: Neck supple. Lymphadenopathy: Cervical: No cervical adenopathy. Skin: General: Skin is warm and dry. Neurological: General: No focal deficit present. Mental Status: She is alert and oriented to person, place, and time. Psychiatric: Mood and Affect: Mood normal. Behavior: Behavior normal. Judgment: Judgment normal. Assessment/Plan : The following health maintenance schedule was reviewed with the patient and provided in printed form in the after visit summary: Health Maintenance Topic Date Due Colorectal Cancer Screening Never done Diabetes: Urine Protein Screening Never done Mammogram Never done Diabetes: Hemoglobin A1C 10/30/2024 Influenza Vaccine (Season Ended) 2025 Diabetes: Retinopathy Screening 09/20/2025 Medicare Annual Wellness (AWV) 11/20/2025 Advance Care Planning declined Diagnoses and all orders for this visit: Routine general medical examination at health care facility (Primary) Colon cancer screening - Ambulatory referral to General Surgery; Future Encounter for screening mammogram for breast cancer - Bilateral screening mammogram; Future Pulmonary emphysema, unspecified emphysema type ([facility]/HCC) Primary hypertension ([facility]) Poorly controlled type 2 diabetes mellitus ([facility]) Current smoker Mixed hyperlipidemia ([facility]) History of hysterectomy Patient here for annual Medicare Wellness visit. Demographics were updated. Self-assessment was completed. Past medical, family and social history were updated. The medication list, including supplements being taken, was updated. A list of other current medical providers was established/updated. Time was spent discussing health maintenance issues, ordering proper testing, and schedule was provided regarding recommended screening. We discussed safety issues and fall risk. Depression screening was completed and addressed. Cognitive function was assessed by direct observation and assessment of ability to perform ADL's and IADL's was done. We also discussed Advanced Directives and code status. The current BMI was provided along with an education packet regarding healthy living and maintenance of a healthy weight. The BMI will cont to be monitored at routine office visits as well. Major risk factors for chronic disease including family history were discussed . Orders Placed This Encounter Procedures Bilateral screening mammogram Standing Status: Future Standing Expiration Date: 01/20/2026 Order Specific Question: Reason for exam: Answer: screen Order Specific Question: Is the patient ? Answer: No Ambulatory referral to General Surgery Standing Status: Future Standing Expiration Date: 05/22/2025 Referral Priority: Routine Referral Type: Consultation Referral Reason: Specialty Services Required Referred to Provider: Tylor Ann DO Requested Specialty: General Surgery Number of Visits Requested: 1 Electronically signed by Gabbie Wallace NP on November 20, 2024 documented in this encounter [facility] 11-20-2024 History of Presen t illness Narrative Images from the original note were not included. Christiane Perez is a 49 y.o. female presents with chief complaint of No chief complaint on file. HPI: HPI Here to get re-established. Sugars are in the 300 range History of Present Illness The patient is a 49-year-old female who presents for evaluation of diabetes mellitus, COPD, and neuropathy. She has been managing her diabetes under the care of Dr. Grande in [place], who has recently discontinued his practice. Subsequently, she was under the care of a nurse practitioner for approximately 6 months. During this period, her insulin injections were discontinued, leading to daily blood glucose levels in the 300s. She utilizes a [employer] continuous glucose monitor. Her current medication regimen includes Janumet and Trulicity, which have contributed to a weight loss from 220 to 209 pounds. Her most recent A1c level was 8.7, a significant increase from her previous levels in the 6 range. She reports no chest pain or irregular heartbeats. She reports no current visual disturbances and is due for an eye examination this month. She has not undergone colon cancer screening. She has a 15-year history of diabetes and has previously been on Lantus insulin, with doses ranging from 20 to 30 units, and NovoLog on a sliding scale of 10 units as needed. She has a history of severe COPD, which has necessitated hospitalization and ventilator support on two occasions due to lung infections. She is currently under the care of Dr. Bambi Merrill, a primer charger. She reports that her breathing is well-managed with her current COPD medications. She admits to smoking one and a half packs of cigarettes daily and experiences morning coughing episodes. She also suffers from allergies and takes Mucinex for symptom management. She experiences burning and prickling sensations in her feet at night, indicative of neuropathy. She is requesting a refill of her gabapentin prescription, which she takes at a dose of 600 mg three times daily. Supplemental Information She does not endorse any current diagnosis of bipolar disorder but continues to take medication prescribed by her psychiatrist, Dr. Wang in [place]. SOCIAL HISTORY The patient smokes a pack and a half per day. FAMILY HISTORY The patient's great-grandmother and aunt had colon cancer. MEDICATIONS Current: Janumet, Trulicity, gabapentin, Breztri Past: NovoLog, Lantus SUBJECTIVE: MEDICATIONS: ALLERGIES Current Outpatient Medications Medication Instructions albuterol HFA 90 mcg/act inhaler 2 puffs, Inhalation, Every 4 hours PRN albuterol 2.5 mg, Nebulization, Every 4 hours PRN atorvastatin (LIPITOR) 40 mg, Oral, Daily Blood Glucose Monitoring Suppl (FreeStyle Lite) device Test daily before all meals/snacks and once before bedtime. Sgjdsjb-Enoiegtlepj-Qrzfwadsdj (Breztri Aerosphere) 160-9-4.8 MCG/ACT aerosol 2 puffs, Inhalation, 2 times daily celecoxib (CELEBREX) 200 mg, Oral, 2 times daily Continuous Blood Gluc Surveyor Hydrographic (FreeStyle Magali 14 Day Lincoln) device 4 times daily PRN Continuous Blood Gluc Sensor (FreeStyle Magali 14 Day Sensor) misc 4 times daily PRN dapagliflozin (FARXIGA) 10 mg, Oral, Daily Dulaglutide 4.5 mg, Subcutaneous, Weekly escitalopram (LEXAPRO) 20 mg, Daily gabapentin (NEURONTIN) 600 mg, Oral, 3 times daily insulin glargine (Lantus) 100 UNIT/ML injection Inject 20 units daily at 9 pm. insulin lispro (ADMELOG SOLOSTAR) 10 Units, Subcutaneous, 3 times daily with meals LORazepam (ATIVAN) 1 mg, 2 times daily omeprazole (PRILOSEC) 40 mg, Oral, Daily before breakfast, Do not crush or chew. pen needle 31G x 5 mm misc As needed risperiDONE (RISPERDAL) 1 mg, 2 times daily SITagliptin-metFORMIN ER (Janumet XR) 100-1000 MG per 24 hr tablet 1 tablet, Oral, Nightly tiZANidine (ZANAFLEX) 4 mg, Oral, 3 times daily PRN Allergies Allergen Reactions Imitrex [Sumatriptan] Shortness of breath and Anxiety Depression: At risk (11/20/2024) PHQ-2 PHQ-2 Score: 4 REVIEW OF SYMPTOMS: Review of Systems OBJECTIVE: BP 110/74 Pulse 78 Temp 98.2 F Ht 5' 8 Wt 209 lb BMI 31.78 kg/m Recent Results (from the past 6 weeks) Hemoglobin A1c Collection Time: 11/22/24 11:30 AM Result Value Ref Range HgbA1C 9.6 (H) 4.8 - 5.6 % Lipid panel Collection Time: 11/22/24 11:30 AM Result Value Ref Range Cholesterol, Total 149 100 - 199 mg/dL Triglycerides 148 0 - 149 mg/dL HDL Cholesterol 72 >39 mg/dL VLDL Cholesterol Finn 25 5 - 40 mg/dL LDL Chol Calc (NIH) 52 0 - 99 mg/dL CBC Collection Time: 11/22/24 11:30 AM Result Value Ref Range WBC 8.2 3.4 - 10.8 x10E3/uL RBC 4.63 3.77 - 5.28 x10E6/uL Hgb 15.0 11.1 - 15.9 g/dL Hct 47.4 (H) 34.0 - 46.6 % MCV 102 (H) 79 - 97 fL MCH 32.4 26.6 - 33.0 pg MCHC 31.6 31.5 - 35.7 g/dL RDW 14.6 11.7 - 15.4 % Platelets 357 150 - 450 x10E3/uL Comprehensive metabolic panel Collection Time: 11/22/24 11:30 AM Result Value Ref Range Glucose 138 (H) 70 - 99 mg/dL BUN 10 6 - 24 mg/dL Creat 0.80 0.57 - 1.00 mg/dL EGFR 90 >59 mL/min/1.73 BUN/Creat Ratio 13 9 - 23 Sodium 139 134 - 144 mmol/L Potassium 4.7 3.5 - 5.2 mmol/L Chloride 102 96 - 106 mmol/L Carbon Dioxide 25 20 - 29 mmol/L Calcium 8.9 8.7 - 10.2 mg/dL Protein Total 6.0 6.0 - 8.5 g/dL Albumin 3.6 (L) 3.9 - 4.9 g/dL Globulin Total 2.4 1.5 - 4.5 g/dL Bili Total 0.3 0.0 - 1.2 mg/dL Alk Phosphatase 75 44 - 121 IU/L AST 14 0 - 40 IU/L ALT 10 0 - 32 IU/L Microalbumin / creatinine urine ratio Collection Time: 11/22/24 11:30 AM Result Value Ref Range Creat Ur 84.2 Not Estab. mg/dL Albumin Ur 15.8 Not Estab. ug/mL Alb/Creat Ratio Urine 19 0 - 29 mg/g creat Results Laboratory Studies A1c was 8.7%. GENERAL EXAM: Physical Exam Physical Exam Wheezes noted in the lungs. ASSESSMENT AND PLAN: Assessment/Plan Diagnoses and all orders for this visit: Primary hypertension (CMS/HCC) - Hemoglobin A1c - Lipid panel - CBC - Comprehensive metabolic panel - Microalbumin / creatinine urine ratio Pulmonary emphysema, unspecified emphysema type (CMS/HCC) Poorly controlled type 2 diabetes mellitus ([facility]) - insulin glargine (Lantus) 100 UNIT/ML injection; Inject 20 units daily at 9 pm. Mixed hyperlipidemia (CMS/HCC) - Hemoglobin A1c - Lipid panel - CBC - Comprehensive metabolic panel - Microalbumin / creatinine urine ratio Type 2 diabetes mellitus with diabetic polyneuropathy, with long-term current use of insulin (CMS/HCC) - Hemoglobin A1c - Lipid panel - CBC - Comprehensive metabolic panel - Microalbumin / creatinine urine ratio Diabetic polyneuropathy associated with type 2 diabetes mellitus ([facility]/HCC) - gabapentin (Neurontin) 600 MG tablet; Take 1 tablet (600 mg) by mouth in the morning and 1 tablet (600 mg) in the evening and 1 tablet (600 mg) before bedtime. Bipolar disorder, unspecified (CMS/HCC) Chronic obstructive pulmonary disease, unspecified Type 2 diabetes mellitus with other skin ulcer (CODE) 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) ([facility]) Centrilobular emphysema ([facility]) Assessment & Plan 1. Diabetes Mellitus. Her A1c level is currently at 8.7%. She will be reinitiated on Lantus insulin, starting with a dose of 20 units at bedtime. Additionally, she will resume NovoLog insulin at mealtimes, with a dosage of 10 units per meal. She has been advised to ensure she consumes food prior to administering the NovoLog injection. A prescription for gabapentin 600 mg, to be taken three times daily, has been provided. Laboratory tests have been ordered for the week of 02/12/2025 through 02/16/2025. 2. Chronic Obstructive Pulmonary Disease (COPD). She has severe COPD and has been advised to continue follow-up with her primer charger. She should contact her primer charger for any necessary refills of her Breztri inhaler. 3. Neuropathy. She experiences burning and prickling discomfort in her feet at night. A prescription for gabapentin 600 mg, to be taken three times daily, has been provided. 4. Health Maintenance. She has been advised to undergo a colonoscopy due to her family history of colon cancer. Follow-up The patient is scheduled for a follow-up visit during the week of 02/19/2025 through 02/23/2025. No follow-ups on file. I have reviewed and reconciled the history and medication list with the patient today. documented in this encounter [facility] 08-01-2024 History of Presen t illness Narrative Associated Problem(s): Hyperlipidemia (CMS/[facility]) Currently taking Atorvastatin 40mg Denies any myalgias. Needs lipid panel done! Continue current regimen. Associated Problem(s): COPD (chronic obstructive pulmonary disease) (CMS/HCC) Follows closely with Dr. Delgado-Pulmonology. Currently taking Breztri BID and Albuterol PRN. Is still smoking 1 ppd. No recent related hospitalizations or exacerbations. Next appointment with Pulmonology 08/2024. Continue current regimen as directed haim pulmonology Associated Problem(s): Poorly controlled type 2 diabetes mellitus ([facility]) Currently taking Farxiga 10mg Trulicity 3mg weekly Most recent labs: hemoglobin A1C 8.6% today in office. It is important to note pt was stopped on all Insulin in 02/2024 due to multiple hypoglycemic episodes. Will increase Trulicity to 4mg. If no improvement will send to Endocrinology. Checks BG using continuous glucose monitor. FreeStyle Magali Average FSBS range from BGs range between 140 and 150 No episode of hypoglycemia No medication adverse effects reported by the patient. Patient educated on lifestyle modifications, dietary restrictions, signs and symptoms of hypoglycemia/hyperglycemia and importance of eating regular consistent meals. Stressed upon importance of checking blood glucose at home and bring blood glucose log to appointments. All questions, concerns answered and addressed. Encouraged to call office if persistent hypoglycemia/hyperglycemia on home glucose monitoring noted. Images from the original note were not included. Subjective Patient ID: Christiane Perez is a 49 y.o. female who presents for Follow-up. HPI Specialists: Psychiatrist-Dr. Wang Pulmonology- Dr. Delgado Did not have any blood work completed. Reprinted requisitions today. DMII: Currently taking Farxiga 10mg Trulicity 3mg weekly Janumet 100-1000mg Most recent labs: hemoglobin A1C 8.6% today in office. It is important to note pt was stopped on all Insulin in 02/2024 due to multiple hypoglycemic episodes. Will increase Trulicity to 4mg. If no improvement will send to Endocrinology. Checks BG using continuous glucose monitor. FreeStyle Magali Average FSBS range from BGs range between 140 and 150 No episode of hypoglycemia No medication adverse effects reported by the patient. Patient educated on lifestyle modifications, dietary restrictions, signs and symptoms of hypoglycemia/hyperglycemia and importance of eating regular consistent meals. Stressed upon importance of checking blood glucose at home and bring blood glucose log to appointments. All questions, concerns answered and addressed. Encouraged to call office if persistent hypoglycemia/hyperglycemia on home glucose monitoring noted. Education: Check blood sugars daily, notify if <70 or >200. Take medications (pills or insulin) as directed. Monitor for s/s of hypoglycemia (sweaty, dizziness, nausea, vomiting, or shakiness). Watch for increase in thirst, urination, or appetite. Inspect feet frequently monitoring for open wounds , and also recommend yearly eye exam. Pt should attempt to remain as physically active as chronic conditions allow, as well as trying to follow a diet low in carbohydrates, and simple sugars. HLD: Currently taking Atorvastatin 40mg Denies any myalgias. Needs lipid panel done! Continue current regimen. COPD: Follows closely with Dr. Delgado-Pulmonology. Currently taking Breztri BID and Albuterol PRN. Is still smoking 1 ppd. No recent related hospitalizations or exacerbations. Next appointment with Pulmonology 08/2024. Continue current regimen as directed gby pulmonology Review of Systems Constitutional: Negative for activity change, appetite change, chills, diaphoresis, fatigue, fever and unexpected weight change. HENT: Negative for congestion, ear pain, rhinorrhea, sinus pressure, sinus pain, sneezing, sore throat, trouble swallowing and voice change. Eyes: Negative for visual disturbance. Respiratory: Negative for cough, chest tightness, shortness of breath and wheezing. Cardiovascular: Negative for chest pain, palpitations and leg swelling. Gastrointestinal: Negative for abdominal distention, abdominal pain, blood in stool, constipation, diarrhea and vomiting. Genitourinary: Negative for decreased urine volume, dysuria, flank pain, frequency, hematuria and urgency. Musculoskeletal: Positive for back pain and neck pain. Negative for arthralgias, gait problem, joint swelling and myalgias. Skin: Negative for rash. Neurological: Negative for dizziness, tremors, syncope, weakness, light-headedness and headaches. Psychiatric/Behavioral: Negative for decreased concentration and suicidal ideas. The patient is not nervous/anxious. Hematological: Does not bruise/bleed easily. Endocrine: Negative for cold intolerance, heat intolerance, polydipsia, polyphagia and polyuria. Objective Physical Exam Vitals reviewed. Constitutional: Appearance: Normal appearance. HENT: Right Ear: Tympanic membrane normal. Left Ear: Tympanic membrane normal. Nose: Nose normal. Mouth/Throat: Mouth: Mucous membranes are moist. Pharynx: Oropharynx is clear. Eyes: Pupils: Pupils are equal, round, and reactive to light. Cardiovascular: Rate and Rhythm: Normal rate and regular rhythm. Pulses: Normal pulses. Heart sounds: Normal heart sounds. Pulmonary: Effort: Pulmonary effort is normal. Breath sounds: Normal breath sounds. Abdominal: General: Abdomen is flat. Bowel sounds are normal. Palpations: Abdomen is soft. Musculoskeletal: General: Normal range of motion. Skin: General: Skin is warm and dry. Capillary Refill: Capillary refill takes less than 2 seconds. Neurological: Mental Status: She is alert and oriented to person, place, and time. Assessment/Plan Problem List Items Addressed This Visit Diabetes mellitus ([facility]) Relevant Medications dapagliflozin (Farxiga) 10 MG gabapentin (Neurontin) 600 MG tablet Other Relevant Orders POCT glycosylated hemoglobin (Hb A1C) docked device Neck pain - Primary Relevant Medications celecoxib (CeleBREX) 200 MG capsule COPD (chronic obstructive pulmonary disease) ([facility]) Follows closely with Dr. Delgado-Pulmonology. Currently taking Breztri BID and Albuterol PRN. Is still smoking 1 ppd. No recent related hospitalizations or exacerbations. Next appointment with Pulmonology 08/2024. Continue current regimen as directed gby pulmonology Relevant Medications Ospapbx-Ngphenfiaat-Qfcbqiclfh (Breztri Aerosphere) 160-9-4.8 MCG/ACT aerosol Hyperlipidemia ([facility]) Currently taking Atorvastatin 40mg Denies any myalgias. Needs lipid panel done! Continue current regimen. Relevant Medications atorvastatin (Lipitor) 40 MG tablet Poorly controlled type 2 diabetes mellitus ([facility]) Currently taking Farxiga 10mg Trulicity 3mg weekly Most recent labs: hemoglobin A1C 8.6% today in office. It is important to note pt was stopped on all Insulin in 02/2024 due to multiple hypoglycemic episodes. Will increase Trulicity to 4mg. If no improvement will send to Endocrinology. Checks BG using continuous glucose monitor. FreeStyle Magali Average FSBS range from BGs range between 140 and 150 No episode of hypoglycemia No medication adverse effects reported by the patient. Patient educated on lifestyle modifications, dietary restrictions, signs and symptoms of hypoglycemia/hyperglycemia and importance of eating regular consistent meals. Stressed upon importance of checking blood glucose at home and bring blood glucose log to appointments. All questions, concerns answered and addressed. Encouraged to call office if persistent hypoglycemia/hyperglycemia on home glucose monitoring noted. Relevant Medications Dulaglutide 4.5 MG/0.5ML solution auto-injector documented in this encounter [facility] 08-01-2024 Instructions Denisse Mullins NP - 08/01/2024 1:[address] Randolph- GI for colonoscopy [phone] DR PATTERSON- Pain Management [phone] FASTING labs ordered. Nothing to eat or drink for 12 hours prior to blood draw. Water and black coffee ok. Education: Check blood sugars daily, notify if <70 or >200. Take medications (pills or insulin) as directed. Monitor for s/s of hypoglycemia (sweaty, dizziness, nausea, vomiting, or shakiness). Watch for increase in thirst, urination, or appetite. Inspect feet frequently monitoring for open wounds , and also recommend yearly eye exam. Pt should attempt to remain as physically active as chronic conditions allow, as well as trying to follow a diet low in carbohydrates, and simple sugars. documented in this encounter [facility] 06-29-2024 History of Presen t illness Narrative Patient: Christiane Perez : 1975 PCP: Sameer Sarmiento MD SUBJECTIVE This is a 49 y.o. female that presents today with a CC of elongated, thick nails. Pt states nails have been elongated and thick for many years and cause pain with ambulation in shoegear. Pt has tried previous treatment with minimal relief. Pt presents today for nail care and treatment. Patient is DM2 with peripheral neuropathy. Patient also has history of bilateral HAV deformities and wears wider shoes with improvement noted by patient Allergies: Allergies Allergen Reactions Imitrex [Sumatriptan] Shortness of breath and Anxiety Past Medical History: Past Medical History: Diagnosis Date Abscess of left lung with pneumonia ([facility]) Alteration of awareness 06/25/2014 Anxiety Back spasm Benign essential hypertension (CMS/HCC) Bilateral edema of lower extremity Bipolar 1 disorder (CMS/HCC) Bipolar 1 disorder, mixed, full remission (CMS/HCC) Cervicalgia 11/24/2016 Chronic respiratory failure with hypoxia ([facility]) Controlled diabetes mellitus with long-term current use of insulin ([facility]) COPD (chronic obstructive pulmonary disease) (CMS/HCC) COPD exacerbation (CMS/HCC) COPD, severe (CMS/HCC) Diabetic neuropathy (CMS/HCC) Disturbance of skin sensation 06/25/2014 Dyslipidemia (CMS/HCC) Encephalopathy 06/25/2014 Fibromyalgia 11/24/2016 SALVADOR (generalized anxiety disorder) ([facility]) Gastroesophageal reflux disease, unspecified whether esophagitis present Genital herpes Greater trochanteric bursitis, right Hyperammonemia ([facility]) Insomnia 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 Low back pain, episodic Lung abscess ([facility]) Malaise and fatigue 06/25/2014 Mild degeneration of cervical intervertebral disc Muscle spasm 11/24/2016 Muscle weakness (generalized) Nicotine dependence, cigarettes, with other nicotine-induced disorders Non-compliance with treatment Obstructive sleep apnea Opioid abuse ([facility]) Poorly controlled type 2 diabetes mellitus ([facility]) Radiculopathy, lumbosacral region 09/14/2014 Right hip pain Shortness of breath Smoking Tobacco user Weight loss Medications: Current Outpatient Medications: albuterol (2.5 MG/3ML) 0.083% nebulizer solution, Take 3 mL (2.5 mg) by nebulization every 4 (four) hours if needed for wheezing, Disp: 75 mL, Rfl: 0 albuterol HFA 90 mcg/act inhaler, Inhale 2 puffs every 4 (four) hours if needed for wheezing or shortness of breath, Disp: 6.7 g, Rfl: 1 atorvastatin (Lipitor) 40 MG tablet, Take 1 tablet (40 mg) by mouth Daily, Disp: 90 tablet, Rfl: 0 Blood Glucose Monitoring Suppl (FreeStyle Lite) device, Test daily before all meals/snacks and once before bedtime., Disp: 1 each, Rfl: 0 Xinugne-Fevtjddxahp-Lyjhngtctp (Breztri Aerosphere) 160-9-4.8 MCG/ACT aerosol, Inhale., Disp: , Rfl: Continuous Blood Gluc Surveyor Hydrographic (FreeStyle Magali 14 Day [place]) device, 4 (four) times a day as needed., Disp: , Rfl: Continuous Blood Gluc Sensor (FreeStyle Magali 14 Day Sensor) misc, 4 (four) times a day as needed., Disp: , Rfl: dapagliflozin (Farxiga) 10 MG, Take 1 tablet (10 mg) by mouth Daily, Disp: 90 tablet, Rfl: 1 dulaglutide (Trulicity) 3 MG/0.5ML solution pen-injector, Inject 3 mg under the skin 1 (one) time per week, Disp: 6 mL, Rfl: 0 escitalopram (Lexapro) 20 MG tablet, Take 20 mg by mouth in the morning., Disp: , Rfl: FREESTYLE LITE test strip, 1 each by Other route in the morning and 1 each in the evening and 1 each before bedtime. Use TID before meals., Disp: 270 each, Rfl: 1 gabapentin (Neurontin) 600 MG tablet, Take 1 tablet (600 mg) by mouth in the morning and 1 tablet (600 mg) in the evening and 1 tablet (600 mg) before bedtime., Disp: 270 tablet, Rfl: 0 ibuprofen 800 MG tablet, TAKE 1 TABLET BY MOUTH THREE TIMES A DAY, Disp: 90 tablet, Rfl: 3 insulin pen needle (1st Tier Unifine Pentips) 31G x 5 mm misc, Inject under the skin if needed. Use as instructed, Disp: , Rfl: LORazepam (Ativan) 1 MG tablet, Take 1 mg by mouth in the morning and 1 mg before bedtime., Disp: , Rfl: omeprazole (PriLOSEC) [address] capsule, Take 40 mg by mouth in the morning. Take before meals. Do not crush or chew.., Disp: , Rfl: omeprazole (PriLOSEC) [address] capsule, Take 1 capsule (40 mg) by mouth Daily, Disp: 90 capsule, Rfl: 0 pen needle 31G x 5 mm misc, Inject under the skin if needed. Use as instructed, Disp: , Rfl: risperiDONE (RisperDAL) 1 MG tablet, Take 1 mg by mouth in the morning and 1 mg before bedtime., Disp: , Rfl: SITagliptin-metFORMIN ER (Janumet XR) 100-1000 MG per 24 hr tablet, Take 1 tablet by mouth at bedtime, Disp: 90 tablet, Rfl: 0 tiZANidine (Zanaflex) 4 MG tablet, Take 1 tablet (4 mg) by mouth 3 (three) times a day as needed for muscle spasms, Disp: 270 tablet, Rfl: 0 Social History: Social History Socioeconomic History Marital status: Unmarried Spouse name: Not on file Number of children: Not on file Years of education: Not on file Highest education level: Not on file Occupational History Not on file Tobacco Use Smoking status: Former Current packs/day: 0.00 Average packs/day: 1.5 packs/day for 17.0 years (25.5 ttl pk-yrs) Types: Cigarettes Quit date: 12/2023 Years since quittin.5 Passive exposure: Never Smokeless tobacco: Never Vaping Use Vaping status: Never Used Substance and Sexual Activity Alcohol use: Never Comment: caffeine: 3-4 cans pop daily Drug use: Never Sexual activity: Defer Other Topics Concern Not on file Social History Narrative Not on file Social Drivers of Health Financial Resource Strain: Not on file Food Insecurity: Not on file Transportation Needs: Not on file Physical Activity: Not on file Stress: Not on file Social Connections: Not on file Intimate Partner Violence: Not on file Housing Stability: Not on file ROS: General: denies fever, chills, fatigue, malaise Gastrointestinal: denies abdominal pain, ulcers, or changes in appetite or bowel habits Musculoskeletal: Positive generalized arthritis to joints and denies loss of strength. Cardiovascular: denies CP, palpitations, irregular rhythms OBJECTIVE LE EXAM: DERM: Elongated thick yellow crumbly nails digits 1 through 7. Negative hair growth with thin shiny atrophic skin bilaterally Rubor to dorsal medial eminence of 1st metatarsals bilaterally VASC: Palpable pedal pulses bilaterally NEURO: 5.07 [place] [employer] monofilament test diminished to digits and forefoot bilaterally 125Hz tuning fork diminished to 1st MPJ bilaterally ORTHO: Positive pain on palpation to nails 1 through 7 HAV deformity bilaterally that is reducible ASSESSMENT 1. Diabetes mellitus due to underlying condition with diabetic polyneuropathy, with long-term current use of insulin ([facility]) 2. Pain due to onychomycosis of toenails of both feet 3. Hav (hallux abducto valgus), left PLAN Discussed proper foot care with patient today. Debride nails in length and thickness digits 1 through 10 Patient educated today on proper diabetic foot care including monitoring feet daily for any signs of infection openings in the skin or irregularities to both feet. Patient had a diabetic neurological exam today to both their feet and discussed proper shoe gear. Patient is continue with wider shoe gear and if as issues with rubbing on shoes may consider possible diabetic shoe prescription in the future although patient states minimal pain at this time Yonathan Mills DPM documented in this encounter [facility] 06-12-2024 Telephone encount er Note Pt needs a refill on her Omeprazole. [facility] 06-12-2024 Miscellaneous Notes Formattin g of this [...] really hurting her documented in this encounter [facility] 06-12-2024 Telephone encount er Note Spoke to Pt and her car broke down but she will do her best to get the lab work down. [facility] 05-29-2024 Telephone encount er Note Patient called and wants to know if you would bump her gabapentin up to 800 mg bc her feet are really hurting her [facility] 05-09-2024 History of Presen t illness Narrative Associated Problem(s): Radiculopathy, lumbosacral region Currently taking Tizanidine and Gabapentin. Pt has never seen PM, is agreeable to referral at this time. Referral sent to PM Associated Problem(s): Wellness examination I have reviewed Ht/Wt/BMI, I have reviewed recommended vaccines for patient's age, as well as all recommended screenings I have reviewed available care everywhere notes as well. I have recommended eating a balanced diet, as well as activity as chronic conditions allow It is recommended that the patient have a yearly eye exam, as well as twice a year dental exams Fu in this office for wellness on a yearly basis Diet: Eat three meals per day. Breakfast, lunch, and dinner. Avoid snacking. Avoid eating after 5/6 pm. Daily protein GOAL 35% of your intake; 30g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 surgery. Continue morphine, [place] as needed for pain. (2) Pneumonia: Plan: [...] signed by Eron Wood MD> 03/12/23 0903 [facility] Work Phone: 1(860) 419-857007-27-2023 [facility] Consult note Author Errol Nicole [facility] March 11, 2023 12:00pm Note Date/Time March 11, 2023 12:0 0pm [facility] [address] [place] [address] Pulmonology Consult Note Signed Patient: Christiane Perez MR#: [id number] : 1975 Acct:[id number] Age/Sex: 48 / F Adm Date: 3 Loc: Room: [address] [place] [address] Type: ADM IN Attending Dr: Eron Wood [...] x- ray, then a CT, done at [place] and was told that she had an abscess in the left lung . She refused to be admitted, went home on Levaquin and clindamycin, followed up with her primary care physician who advised her to come back and be admitted here at [facility]. Patient has a large dense consolidated mass [...] signed by Errol Nicole MD> 03/11/23 1200 [facility] Work Phone: [phone]) [phone] Progress note Author Eron Wood [facility] March 11, 2023 10:50am Note Date/Time March 11, 2023 10:4 9am [facility] [address] [place] [address] Hospitalist Progress Note Signed Patient: Christiane Perez MR#: [id number] : 1975 Acct:[id number] Age/Sex: 48 / F Adm Date: 3 Loc: Room: [address] [place] [address] Type: ADM IN Attending Dr: Eron Wood [...] the ED. ED havecontacted thoracic surgery Dr. Rabkin who is agreeable to see patient in [...] Name Haroonq PRN Reason Stop Dose Admin Hydrocodone Bitart/Acetaminophen [...] 1,000 Ml IV 03/09/24 16:44 75 mls/hr .[id number] ROGELIO Administration Magnesium Sulfate 2 gm in [...] and thoracic surgery. Sendsputum culture. Continue morphine, [place] as needed for pain. Stop IV fluid (2) Pneumonia: Plan: Antibiotic as above (3) Diabetes mellitus, type 2: Plan: Continue Lantus and start sliding scale (4) COPD (chronic obstructive pulmonary disease): Plan: Continue bronchodilators and Breztri Plan Chronic medical problems include diabetic neuropathy, anxiety, hyperlipidemia, obesity, tobacco abuse, COPD, DVT prophylaxis: Heparin GI prophylaxis: Pepcid Documented By: rEon Wood MD 03/11/23 1046 Signed By: <Electronically signed by Eron Wood MD> 03/11/23 1050 [facility] Work Phone: [phone]) 128-983907-26-2023 History and physical note Author Eron Wood [facility] March 10, 2023 4:48pm Note Date/Time March 10, 2023 4:49 pm [facility] [address] [place] [address] Hospitalist H&P Signed Patient: Christiane Perez MR#: [id number] : 1975 Acct:[id number] Age/Sex: 48 / F Adm Date: 3 Loc: Room: [address] [place] [address] Type: ADM IN Attending Dr: Eron Wood [...] negative unless noted below or in HPI [facility] Medical History (Updated 03/10/23 @ 16:46 [...] mcg-glycopyr 9 mcg-formot 4.8 mcg/actuation HFA inhaler ([employer]) 1 puff inhalation DAILY 03/10/23 [History Confirmed [...] % (Auto) 5.7 % (.) 03/10/23 12:55 [place] % (Auto) 7.2 % (.) 03/10/23 12:55 Eos % (Auto) 1.1 % (.) 03/10/23 12:55 Baso % (Auto) 0.2 % (.) 03/10/23 12:55 Nucleat RBC Rel Count 0.1 /100 WBC (0-0.5) 03/10/23 12:55 Neut # (Auto) 14.2 x10E3/uL (1.8-7.7) H 03/10/23 12:55 Lymph # (Auto) 1.0 x10E3/uL (1.00-4.8) 03/10/23 12:55 [place] # (Auto) 1.2 x10E3/uL (0.0-0.8) H 03/10/23 [...] 3 Documented By: Eron Wood MD 03/10/23 5751 Signed By: <Electronically signed by Eron Wood MD> 03/10/23 5863 [facility] Work Phone: [phone]) [phone] Consult note Author Valeriano Horta [facility] March 10, 2023 3:27pm Note Date/Time March 10, 2023 3:27 pm [facility] EN[facility] [address] [place] [address] Cardiothoracic Consult Note Signed Patient: Christiane Perez MR#: [id number] : 1975 Acct:[id number] Age/Sex: 48 / F Adm Date: 3 Loc: ER Room: Type: [facility] ER Attending Dr: Copies to: DO Valeriano Morris MD Shaikh Fawwad, MD~ HPI Consult Date: 03/10/23 Primary Care Provider: Shaikh Anthony MD Consult Narrative Reason for consult: lung abscess HPI: Ms. Perez is a 48 year old female with persistent SOB. CT read as lung abscess with elevated WBC. Pt agreed with admission. Chart and CT reviewed. [facility] Medical History (Updated 03/10/23 @ 15:26 [...] By: <Electronically signed by Valeriano Horta MD> 03/10/231526 [facility] Work Phone: [phone]) 513-256107-02-2023 Evaluation note* Encounter Date Diagnosis Assessment Notes [...] evaluation for possible sequelae into bronchitis/pneumoni a. [employer] Other 08-26-2022 NotePROCEDURE: XR HIP RT 2 3V WO PELVIS HISTORY: Pain in right hip joint , chronic COMPARISON: None. FINDINGS: BONES:No fracture, acute abnormality, or significant arthropathy. SOFT TISSUES:No visible soft tissue swelling. EFFUSION:None visible. OTHER: Negative. IMPRESSION: 1. Normal examination. Electronically authenticated by: GERMAINE FARRELL Date: 2022-04-10 08:14[facility] summary Author Krunal Kelly [facility] March 17, 2023 1:24pm Note Date/Time March 14, 2023 1:54 pm [facility] EN[facility] [address] [place] [address] Discharge Summary Signed Patient: Christiane Perez MR#: [id number] : 1975 Acct:[id number] Age/Sex: 48 / F Adm Date: 3 Loc: Room: [address] [place] [address]: Krunal Kelly DO Copies to: [...] % (Auto) 71.0, Lymph % (Auto) 16.8, E[place]ka % (Auto) 7.1, Eos % (Auto) 4.4, Baso % (Auto) 0.7, Nucleat RBC Rel Count 0.1, Neut # (Auto) 6.8, Lymph # (Auto) 1.6, [place]ka # (Auto) 0.7, Eos # (Auto) 0.4, [...] signed by Krunal Kelly DO> 03/17/23 1324 [facility] Work Phone: Evaluation noteNo Assessments Information Available [facility] assessment information available [facility] note[facility] InformationNort [employer] Other Evaluation note* Diagnosis Onset Date Resolution Status Abscess of left lung with pneumonia acute Abscess of lung acute COPD (chronic obstructive pulmonary disease) acute Diabetes mellitus, type 2 ac [place] Lung mass acute Pneumonia acute Tobacco abuse acute [facility] Work Phone: Evaluation note* Diagnosis Hoarse- Primary Dysphonia Chronic laryngitis Thrush Candidiasis of mouth documented in this encounter [facility] HealthcareEvaluation note* Diagnosis COPD with acute exacerbation [...] abducto valgus), left documented in this encounter [facility] HealthcareEvaluation note* Diagnosis COPD with acute exacerbation [...] Thoracic or lumbosacral neuritis or radiculitis, unspecified Diabetes mellitus due to underlying condition with diabetic polyneuropathy, with long-term current use of insulin (CMS/HCC)- Primary Pain due to onychomycosis of toenails of both feet Hav (hallux abducto valgus), left documented [facility] encounter [facility]* [...] Thoracic or lumbosacral neuritis or radiculitis, unspecified Neck pain- Primary Cervicalgia Hyperlipidemia, unspecified hyperlipidemia type (CMS/HCC) Type 2 diabetes mellitus with diabetic polyneuropathy, with long-term current use of insulin (CMS/HCC) Pulmonary emphysema, unspecified emphysema type (CMS/HCC) Poorly controlled type 2 diabetes mellitus (CMS/HCC) documented [facility] encounter [facility]* Diagnosis Hav (hallux abducto valgus), left- Primary Diabetes mellitus due to underlying condition with diabetic polyneuropathy, with long-term current use of insulin (CMS/HCC) Toe pain, bilateral Onychomycosis Dermatophytosis of nail documented in this encounter [facility]* Diagnosis Screening for colon cancer- Primary Special screening for malignant neoplasms, colon Screening mammogram for breast cancer Wellness examination Poorly controlled type 2 diabetes mellitus (CMS/HCC) Type 2 diabetes mellitus with diabetic polyneuropathy, with long-term current use of insulin (CMS/HCC) Neck pain Cervicalgia Hyperlipidemia, unspecified hyperlipidemia type (CMS/HCC) Radiculopathy, lumbosacral region Thoracic or lumbosacral neuritis or radiculitis, unspecified documented [facility] encounter [facility]* [...] Thoracic or lumbosacral neuritis or radiculitis, unspecified Neck pain- Primary Cervicalgia Hyperlipidemia, unspecified hyperlipidemia type (CMS/HCC) Type 2 diabetes mellitus with diabetic polyneuropathy, with long-term current use of insulin (CMS/HCC) Pulmonary emphysema, unspecified emphysema type (CMS/HCC) Poorly controlled type 2 diabetes mellitus (CMS/HCC) Neck pain Cervicalgia documented in this encounter [facility] HealthcareEvaluation note* Diagnosis COPD with acute exacerbation [...] polyneuropathy, with long-term current use of insulin (/HCC) Screening for colon cancer- Primary Special screening for malignant neoplasms, colon Screening mammogram for breast cancer Wellness examination Poorly controlled type 2 diabetes mellitus (CMS/HCC) Type 2 diabetes mellitus with diabetic polyneuropathy, with long-term current use of insulin (CMS/HCC) Neck pain Cervicalgia Hyperlipidemia, unspecified hyperlipidemia type (CMS/HCC) Radiculopathy, lumbosacral region Thoracic or lumbosacral neuritis or radiculitis, unspecified Neck pain- Primary Cervicalgia Hyperlipidemia, unspecified hyperlipidemia type (CMS/HCC) Type 2 diabetes mellitus with diabetic polyneuropathy, with long-term current use of insulin (CMS/HCC) Pulmonary emphysema, unspecified emphysema type (CMS/HCC) Poorly controlled type 2 diabetes mellitus (CMS/HCC) Gastroesophageal reflux disease, unspecified whether esophagitis present- Primary documented in this encounter [facility] HealthcareEvaluation note* Diagnosis COPD with acute exacerbation [...] Thoracic or lumbosacral neuritis or radiculitis, unspecified Neck pain- Primary Cervicalgia Hyperlipidemia, unspecified hyperlipidemia type (CMS/HCC) Type 2 diabetes mellitus with diabetic polyneuropathy, with long-term current use of insulin (CMS/HCC) Pulmonary emphysema, unspecified emphysema type (CMS/HCC) Poorly controlled type 2 diabetes mellitus (CMS/HCC) Routine general medical examination at health care facility- Primary Routine general medical examination at a health care facility Colon cancer screening Special screening for malignant neoplasms, colon Encounter for screening mammogram for breast cancer Pulmonary emphysema, unspecified emphysema type (CMS/HCC) Primary hypertension (CMS/HCC) Unspecified essential hypertension Poorly controlled type 2 diabetes mellitus (CMS/HCC) Current smoker Mixed hyperlipidemia (CMS/HCC) Mixed hyperlipidemia History of hysterectomy Acquired absence of both cervix and uterus documented [facility] encounter [facility]* [...] Thoracic or lumbosacral neuritis or radiculitis, unspecified Neck pain- Primary Cervicalgia Hyperlipidemia, unspecified hyperlipidemia type (CMS/HCC) Type 2 diabetes mellitus with diabetic polyneuropathy, with long-term current use of insulin (CMS/HCC) Pulmonary emphysema, unspecified emphysema type (CMS/HCC) Poorly controlled type 2 diabetes mellitus (CMS/HCC) Poorly controlled type 2 diabetes mellitus (CMS/HCC) documented in this encounter [facility] HealthcareEvaluation note* Diagnosis COPD with acute exacerbation [...] Thoracic or lumbosacral neuritis or radiculitis, unspecified Neck pain- Primary Cervicalgia Hyperlipidemia, unspecified hyperlipidemia type (CMS/HCC) Type 2 diabetes mellitus with diabetic polyneuropathy, with long-term current use of insulin (CMS/HCC) Pulmonary emphysema, unspecified emphysema type (CMS/HCC) Poorly controlled type 2 diabetes mellitus (CMS/HCC) Primary hypertension (CMS/HCC)- Primary Unspecified essential hypertension Pulmonary emphysema, unspecified emphysema type (CMS/HCC) Poorly controlled type 2 diabetes mellitus (CMS/HCC) Mixed hyperlipidemia (CMS/HCC) Mixed hyperlipidemia Type 2 diabetes mellitus with diabetic polyneuropathy, with long-term current use of insulin (CMS/HCC) Diabetic polyneuropathy associated with type 2 diabetes mellitus (CMS/HCC) Bipolar disorder, unspecified (CMS/HCC) Bipolar disorder, unspecified Chronic obstructive pulmonary disease, unspecified Type 2 diabetes mellitus with other skin ulcer (CODE) 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) (CMS/HCC) Centrilobular emphysema (CMS/HCC) documented in this encounter [facility] HealthcareHistory general Narrative - Reported* Type Description Date Medical History DIABETIC Medical History BI POLAR Medical History NEUROPATHY IN LEGS Medical History COPD Medical History GENITAL HERPES Medical History high cholesterol Medical History high blood pressure Surgical History Cholecystectomy Surgical History tonsillectomy Surgical History breast reduction 1996 Surgical History parital hysterectomy 2009 Hospitalization History see above [employer] Other Hisjygv general Narrative - Reported* Type Description Date Medical History DIABETIC Medical History BI POLAR Medical History NEUROPATHY IN LEGS Medical History COPD Medical History GENITAL HERPES Medical History high cholesterol Medical History high blood pressure Surgical History Cholecystectomy Surgical History tonsillectomy Surgical History breast reduction 1996 Surgical History parital hysterectomy 2009 Hospitalization History [facility] Lung Abcess 03/2023 Hospitalization History aspiration pneumonia 201 5 [employer] Other Hisxrag general Narrative - Reported* Type Description Date Medical History DIABETIC Medical History BI POLAR Medical History NEUROPATHY IN LEGS Medical History COPD Medical History GENITAL HERPES Medical History high cholesterol Medical History high blood pressure Medical History [facility] lung abcess 02/2023 -- [facility] Surgical History Cholecystectomy Surgical History tonsillectomy Surgical History breast reduction 1996 Surgical History parital hysterectomy 2009 Hospitalization History [facility] Lung Abcess 03/2023 Hospitalization History aspiration pneumonia 201 5 [employer] Other Hospital Discharge instructions Additional Instructions Continue home oxygen per chronic orders.[facility] Work Phone: Hospital Discharge instructions Additional Instructions Steroids daily Use albuterol inhaler as instructed Push fluids Rest Follow with your PCP Avoid smoking Return here if any problems persist [facility] Work Phone: Reason for referral (narrative)* Consultation (Routine) - Authorized Specialty Diagnoses / Procedures Referred By Alejandrina t Referred To Contact Pain Medicine Diagnoses Neck pain Radiculopathy, lumbosacral region Procedures OR OFFICE/OUTPATIENT [facility] 60 MINUTES Denisse Mullins NP [address] [place] [address] Bryan Valverde MD [address] [facility], [address], [address] [place] [id number] Referral ID Status Reason Start Date Expiration Date Visits Requested Visits Authorized [id number] Authorized Specialty Services Required 05/09/2024 11/05/2024 1 1 * Consultation (Routine) - Authorized Specialty Diagnoses / Procedures Referred By Alejandrina paris Referred To Contact Gastroenterology Diagnoses Screening for colon cancer Procedures OR OFFICE/OUTPATIENT [facility] 60 MINUTES Denisse Mullins NP [address] [place] [address] Reggie Randolph MD [facility] [address] [place] [address] Referral ID Status Reason Start Date Expiration Date Visits Requested Visits Authorized [id number] Authorized Specialty Services Required 05/09/2024 11/05/2024 1 1 [facility] Advance Directives No Advanced Directives Records Found Advance Directive Response Recorded Date/ Time Advance Directives No Fifi 20th, 2 021 3:49pm Advance Directive Response Recorded Date/ [...] [facility] Referred Provider Geni Lewis Referred Address [address], [place],[address] Referred Provider Specialty Ear, Nose an d [...] and content) DATE CREATED AUTHOR 06/15/2021 [employer] DATE CREATED AUTHOR AUTHOR'S ORGANIZ ATION 12/06/2022 [facility] DATE CREATED AUTHOR AUTHOR'S ORGANIZ ATION 03/24/2023 [facility] DATE CREATED AUTHOR AUTHOR'S ORGANIZ ATION 10/21/2023 [facility] DATE CREATED AUTHOR AUTHOR'S ORGANIZ ATION 05/31/2024 [facility] DATE CREATED AUTHOR AUTHOR'S ORGANIZ ATION 12/30/2024 [facility] DATE CREATED AUTHOR AUTHOR'S ORGANIZ ATION 01/21/2025 [facility] dical Specialists EPIC REASON FOR VISIT (unrecogniz ed section and content) Reason Comments Hoarseness X 4-5 mo Reason Onset Date Comments Med Refill 05/29/2024 Reason Comments DM Foot Care Dm Nails Reason Comments Follow-up Reason Comments Med Refill Reason Comments Med Refill Reason Onset Date Comments Med Refill 09/21/2024 Reason Comments Med Change Request Reason Onset Date Comments Care Coordination 01/19/2025 Care Teams (unrecognized sec tion and content) [...] Errol Nicole MD Attending Provider Active 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 [employer] Relationship Specialty Start Date End Date Shaikh Cruz MD PCP - General Internal Medicine 02/24/23 [employer] Relationship Specialty Start Date End Date Shaikh Cruz MD [address] [place] [address] PCP - General Internal Medicine 09/29/23 [employer] Relationship Specialty Start Date End Date Shaikh Cruz MD [address] [place] [address] PCP - General Internal Medicine 09/29/23 [employer] Relationship Specialty Start Date End Date Shaikh Cruz MD [address] [place] [address] PCP - General Internal Medicine 09/29/23 06/07/24 Unallocated, Khanh Oquendo MD [address] [place] [address] PCP - General Family Medicine 06/08/24 Denisse Mullins NP [address] [place] [address] Nurse Practitioner Family Medicine 06/08/24 [employer] Relationship Specialty Start Date End Date Sameer Sarmiento MD [address] [place] [address] PCP - General Family Medicine 06/15/24 Denisse Mullins NP [address] [place] [address] Nurse Practitioner Family Medicine 06/08/24 [employer] Relationship Specialty Start Date End Date Sameer Sarmiento MD [address] [place] [address] PCP - General Family Medicine 06/15/24 Denisse Mullins NP [address] [place] [address] Nurse Practitioner Family Medicine 06/08/24 [employer] Relationship Specialty Start Date End Date Sameer Sarmiento MD [address] [place] [address] PCP - General Family Medicine 06/15/24 Denisse Mullins NP [address] [place] [address] Nurse Practitioner Family Medicine 06/08/24 [employer] Relationship Specialty Start Date End Date Sameer Sarmiento MD [address] [place] [address] PCP - General Family Medicine 06/15/24 Denisse Mullins NP [address] [place] [address] Nurse Practitioner Family Medicine 06/08/24 [employer] Relationship Specialty Start Date End Date Sameer Sarmiento MD [address] [place] [address] PCP - General Family Medicine 06/15/24 Denisse Mullins NP [address] [place] [address] Nurse Practitioner Family Medicine 06/08/24 [employer] Relationship Specialty Start Date End Date Shaikh Cruz MD [address] [place] [address] PCP - General Internal Medicine 09/29/23 [employer] Relationship Specialty Start Date End Date Shaikh Cruz MD [address] [place] [address] PCP - General Internal Medicine 09/29/23 [employer]visor [employer] Relationship Specialty Start Date End Date Shaikh Cruz MD [address] [place] [address] PCP - General Internal Medicine 09/29/23 [employer] Relationship Specialty Start Date End Date Sameer Sarmiento MD [address] [place] [address] PCP - General Family Medicine 06/15/24 Denisse Mullins NP [address] [place] [address] Nurse Practitioner Family Medicine 06/08/24 [employer] Relationship Specialty Start Date End Date Sameer Sarmiento MD [address] [place] [address] PCP - General Family Medicine 06/15/24 Denisse Mullins NP [address] [place] [address] Nurse Practitioner Family Medicine 06/08/24 [employer] Relationship Specialty Start Date End Date Sameer Sarmiento MD [address] [place] [address] PCP - General Family Medicine 06/15/24 Denisse Mullins NP [address] [place] [address] Nurse Practitioner Family Medicine 06/08/24 [employer] Relationship Specialty Start Date End Date Unallocated, Noms MD Jere [address] [place], [place] [phone] PCP - General Family Medicine 10/10/24 [employer] Relationship Specialty Start Date End Date Tylor Taylor DO [address] [place] [address] PCP - General Family Medicine 11/20/24 Bambi Delgado MD [address] [address] Referring Physician Internal Medicine 11/20/24 Marvin Wang MD [address] [place] [address] Referring Physician Behavioral Health 11/20/24 [employer] Relationship Specialty Start Date End Date Tylor Taylor DO [address] [place] [address] PCP - General Family Medicine 11/20/24 Bambi Delgado MD [address] [facility] [address] [place] [address] Referring Physician Internal Medicine 11/20/24 Marvin Wang MD [address] [place] [address] Referring Physician Behavioral Health 11/20/24 [employer] Relationship Specialty Start Date End Date Tylor Taylor DO [address] [place] [address] PCP - General Family Medicine 11/20/24 Bambi Delgado MD [address] [place] [address] Referring Physician Internal Medicine 11/20/24 Marvin Wang MD [address] [place] [address] Referring Physician Behavioral Health 11/20/24 [employer] Relationship Specialty Start Date End Date Tylor Taylor DO [address] [place] [address] PCP - General Family Medicine 11/20/24 Bambi Delgado MD [address] [place] [address] Referring Physician Internal Medicine 11/20/24 Marvin Wang MD [address] [place] [address] Referring Physician Behavioral Health 11/20/24 FOR RECORDS PERTAINING TO PATIENTS WHO ARE [...] BE BASED ON THE PRIMARY CLINICAL RECORDS. [facility] [employer] [facility]. provides no warranty or guarantee of the accuracy or completeness of information in this document.
--- NOTE | 2025-01-26 21:01 | ED.SKABFB1 ---
HPI - Skin/Abscess/Foreign Bdy General Chief complaint: Skin/Abscess/Foreign Body Stated complaint: CYST IN VAGINAL AREA Time Seen by Provider: 01/26/25 20:48 Source: patient Mode of arrival: walk-in Limitations: no limitations History of Present Illness HPI narrative: cc painful area left labia majora HPI - patient developed a painful area in the left outer labia about one month ago. She said that it was initially small and not very painful. But about one week ago, the area of firmness began to enlarge and yesterday the area became much more painful as it got larger. No systemic symptoms such as fever or vomiting She is a diabetic but told us that her glucose readings have been 120-140 . She has not eaten today. Related Data Home Medications ?Medication ?Instructions ?Recorded ?Confirmed atorvastatin 40 mg tablet 40 mg PO DAILY 03/07/23 01/26/25 budesonide 160 mcg-glycopyr 9 1 inh inhalation BID 03/07/23 01/26/25 mcg-formot 4.8 mcg/actuation HFA inhaler (Breztri Certpoint Systemsphere) dapagliflozin propanediol 10 mg 10 mg PO DAILY 03/07/23 01/26/25 tablet (Farxiga) gabapentin 800 mg tablet 800 mg PO TID 03/07/23 01/26/25 insulin aspart U-100 100 unit/mL 10 unit subcut TIDWM 03/07/23 01/26/25 (3 mL) subcutaneous pen (Novolog FlexPen U-100 Insulin aspart) omeprazole 40 mg capsule,delayed 40 mg PO DAILY 03/07/23 01/26/25 release insulin glargine 100 unit/mL (3 30 unit subcut QAM 01/18/24 01/26/25 mL) subcutaneous pen (Basaglar KwikPen U-100 Insulin) roflumilast 250 mcg tablet 250 mcg PO DAILY 01/18/24 01/26/25 dulaglutide 4.5 mg/0.5 mL 4.5 mg subcut .weekly 01/26/25 01/26/25 subcutaneous pen injector (Trulicity) escitalopram oxalate 10 mg tablet 30 mg PO QDAY 01/26/25 01/26/25 sitagliptin phosphate 50 1 tab PO .qhs 01/26/25 01/26/25 mg-metformin 500 mg tablet (Janumet) trazodone 50 mg tablet 50 mg PO .qhs 01/26/25 01/26/25 Previous Rx's ?Medication ?Instructions ?Recorded albuterol sulfate 90 mcg/actuation 2 inh inhalation Q4H PRN shortness 01/25/24 aerosol inhaler of breath or wheezing #8.5 grams lorazepam 1 mg tablet (Ativan) 1 mg PO Q8H PRN anxiety 5 days #15 01/25/24 tabs cephalexin 500 mg capsule 500 mg PO QID 7 days #28 caps 01/26/25 sulfamethoxazole 800 1 tab PO BID 7 days #14 tabs 01/26/25 mg-trimethoprim 160 mg tablet (Bactrim DS) Allergies Allergy/AdvReac Type Severity Reaction Status Date / Time sumatriptan (From Imitrex) Allergy Severe Hives Verified 01/26/25 20:46 [facility] Medical History (Updated 01/26/25 @ 21:09 by Vinh Osman) Obesity ?E66.9 - Obesity, unspecified (ICD-10) PEPE (obstructive sleep apnea) ?G47.33 - Obstructive sleep apnea (adult) (pediatric) (ICD-10) DM2 (diabetes mellitus, type 2) ?E11.9 - Type 2 diabetes mellitus without complications (ICD-10) Cigarette nicotine dependence with nicotine-induced disorder ?F17.219 - Nicotine dependence, cigarettes, with unspecified nicotine-induced disorders (ICD-10) Bipolar 2 disorder ?F31.81 - Bipolar II disorder (ICD-10) Acute respiratory failure with hypercapnia ?J96.02 - Acute respiratory failure with hypercapnia (ICD-10) Oral candidiasis ?B37.0 - Candidal stomatitis (ICD-10) SALVADOR (generalized anxiety disorder) ?F41.1 - Generalized anxiety disorder (ICD-10) Hyperchloremia ?E87.8 - Other disorders of electrolyte and fluid balance, not elsewhere classified (ICD-10) Hospital-acquired pneumonia ?J18.9 - Pneumonia, unspecified organism (ICD-10) ?Y95 - Nosocomial condition (ICD-10) Community acquired pneumonia ?J18.9 - Pneumonia, unspecified organism (ICD-10) Acute exacerbation of chronic obstructive pulmonary disease (COPD) ?J44.1 - Chronic obstructive pulmonary disease with (acute) exacerbation (ICD-10) COPD exacerbation ?J44.1 - Chronic obstructive pulmonary disease with (acute) exacerbation (ICD-10) Cavitary pneumonia ?J18.9 - Pneumonia, unspecified organism (ICD-10) ?J98.4 - Other disorders of lung (ICD-10) Acute viral syndrome ?B34.9 - Viral infection, unspecified (ICD-10) Acute chest wall pain ?R07.89 - Other chest pain (ICD-10) Enterovirus infection ?B34.1 - Enterovirus infection, unspecified (ICD-10) Tobacco abuse counseling ?Z71.6 - Tobacco abuse counseling (ICD-10) Contusion of left knee ?S80.02XA - Contusion of left knee, initial encounter (ICD-10) Acute hypokalemia ?E87.6 - Hypokalemia (ICD-10) Vasovagal syncope ?R55 - Syncope and collapse (ICD-10) Acute and chronic respiratory failure with hypercapnia ?J96.22 - Acute and chronic respiratory failure with hypercapnia (ICD-10) Respiratory failure ?J96.90 - Respiratory failure, unspecified, unspecified whether with hypoxia or hypercapnia (ICD-10) Smoker ?F17.200 - Nicotine dependence, unspecified, uncomplicated (ICD-10) HLD (hyperlipidemia) ?E78.5 - Hyperlipidemia, unspecified (ICD-10) HTN (hypertension) ?I10 - Essential (primary) hypertension (ICD-10) Social History Smoking status: Current every day smoker Little interest or pleasure in doing things: not at all Feeling down, depressed, or hopeless: not at all Exam Narrative Exam Narrative: Nurses notes and vital signs reviewed and patient is not hypoxic. afebrile General: Well-appearing and in no apparent distress. Skin: Warm, dry, no pallor noted. No rash. Eye: Pupils are equal, round and EOMI. No scleral icterus. Ears, Nose, Mouth, and Throat: Oral mucosa is moist Cardiovascular: Regular Rate and Rhythm without murmur, gallop or rub. Respiratory: No accessory muscle use or respiratory distress. Lungs are clear to auscultation, no wheezing, rales or rhonchi Musculoskeletal: normal ROM GI: Abdomen is soft, non-distended. Normal bowel sounds. No tenderness to palpation. No rebound, guarding, or rigidity noted. Genital: Exam with nurse Norma be present. 1 cm x 1.5 cm oblong shaped area of induration with some tenderness but no associated erythema, warmth or pustules. There is no fluctuance and no area to easily drain. No vesicles or other associated changes. No discharge noted. Remainder of the vulva is normal. Neurological: A&O x4. No cranial nerve dysfunction observed. No truncal ataxia. Moves all extremities. Sensation intact. Psychiatric: Cooperative and interactive. Normal mood and affect. Constitutional Vital Signs, click to edit/add: Last Vital Signs Temp 98 F 01/26/25 20:47 Pulse 84 01/26/25 20:47 Resp 114 H 01/26/25 20:47 BP 132/91 01/26/25 20:47 Pulse Ox 96 01/26/25 20:47 O2 Del Method Room Air 01/26/25 20:47 Course Vital Signs Vital signs: Vital Signs Temperature 98 F 01/26/25 20:47 Pulse Rate 84 01/26/25 20:47 Respiratory Rate 114 H 01/26/25 20:47 Blood Pressure 132/91 01/26/25 20:47 Pulse Oximetry 96 01/26/25 20:47 Oxygen Delivery Method Room Air 01/26/25 20:47 Temperature 98 F 01/26/25 20:47 Pulse Rate 84 01/26/25 20:47 Respiratory Rate 114 H 01/26/25 20:47 Blood Pressure 132/91 01/26/25 20:47 Pulse Oximetry 96 01/26/25 20:47 Oxygen Delivery Method Room Air 01/26/25 20:47 MDM - Skin/Abscess/Foreign Bdy MDM Narrative Medical decision making narrative: Patient presents with a painful area on the left labia majora. There is some induration there but I do not see any erythema, warmth, drainage or vesicles. No findings consistent with herpes. The remainder of the vulva is normal. Likely the beginning of an infected area of the soft tissue, possible early abscess. With the induration present and no fluctuance, I do not see a benefit to attempt to drain as it would likely just be release of bloody material increased risk of additional infection. The patient was informed of this and given a dose of Bactrim and a dose of Keflex in the emergency department and then discharged home with prescriptions for the same. She was instructed follow-up with local media theorist and author of if her condition worsened or return to the ED. Discharge Plan Discharge Chief Complaint: Skin/Abscess/Foreign Body Clinical Impression: Cutaneous abscess Patient Disposition: Home, Self-Care Time of Disposition Decision: 21:08 Prescriptions / Home Meds: New cephalexin 500 mg capsule 500 mg PO QID 7 Days Qty: 28 0RF sulfamethoxazole-trimethoprim [Bactrim DS] 800-160 mg tablet 1 tab PO BID 7 Days Qty: 14 0RF No Action Trulicity 4.5 mg/0.5 mL pen injector 4.5 mg SUBCUT .weekly escitalopram oxalate 10 mg tablet 30 mg PO QDAY trazodone 50 mg tablet 50 mg PO .qhs Janumet 50-500 mg tablet 1 tab PO .qhs atorvastatin 40 mg tablet 40 mg PO DAILY Breztri Aerosphere 160-9-4.8 mcg/actuation HFA aerosol inhaler 1 inh INHALATION BID dapagliflozin propanediol [Farxiga] 10 mg tablet 10 mg PO DAILY gabapentin 800 mg tablet 800 mg PO TID insulin aspart U-100 [Novolog FlexPen U-100 Insulin] 100 unit/mL (3 mL) insulin pen 10 unit SUBCUT TIDWM Patient Comments: with sliding scale, max 50 units daily omeprazole 40 mg capsule,delayed release(DR/EC) 40 mg PO DAILY roflumilast 250 mcg tablet 250 mcg PO DAILY insulin glargine [Basaglar KwikPen U-100 Insulin] 100 unit/mL (3 mL) insulin pen 30 unit SUBCUT QAM albuterol sulfate 90 mcg/actuation HFA aerosol inhaler 2 inh inhalation Q4H PRN (Reason: shortness of breath or wheezing) Qty: 8.5 0RF lorazepam [Ativan] 1 mg tablet 1 mg PO Q8H PRN (Reason: anxiety) 5 Days Qty: 15 0RF Print Language: Kenyan Instructions: Abscess (ED), Warm Compress or Soak (ED) Referrals: LIANET MCCULLOUGH [Primary Care Provider, Family Practice] - 1 week
[2025-01-26] MEDS: CEPHALEXIN 500 MG CAPSULE PO (21:17)
[2025-01-26] MEDS: SULFAMETHOXAZOLE/TRIMETHOPRIM 800-160 MG TABLET 1 TAB PO (21:17)
== END 2025-01-26 21:19 | disposition home or self-care (01) ==
PROVIDERS: Emergency Provider Emergency Medicine; PCP Family Medicine
DX: N76.4 Abscess of vulva (principal); N94.819 Vulvodynia, unspecified; E11.9 Type 2 diabetes mellitus without complications; Z79.85 Long-term (current) use of injectable non-insulin antidiabetic drugs
CPT/HCPCS: 99283